=== PATIENT | male | born 1965 | race Caucasian/White ===

== ENCOUNTER 2023-11-26 16:28 | Inpatient (IN) | payer OTHER ==
--- OUTSIDE RECORDS SUMMARY | 2023-11-26 16:40 | XMS REPORT | Continuity of Care Document ---
Author Name Unknown Address [address] [facility] [place] [address] [facility] thconnect Address [address] [facility] [place] [address] Care Team Providers Care Irrigation Installation Specialist Name Role Phone NO, PCP Primary Care Physician Unavailab David Aceves Attending Clinician Unavailable Arsh Rojo Attending Clinician Unavailable EDDOC, GENERIC FOR EDM Attending Clinician UnaURIAH Stout Attending Clinician Unavailable VERNA GILL Attending Clinician Unavailable José Miguel Orozco Attending Clinician Unavailable Kennedi Garnica RN Attending Clinician [phone] ELENA FREGOSO Attending Clinician Unavailable ELENA FREGOSO Attending Clinician Unavailable Edward Batista MD Attending Clinician [phone] Claude Cooley MD Attending Clinician [phone] Jeimy GUTIERREZ, Subhash Espinoza Attending Clinician + [phone] Kiel Gardiner Attending Clinician Unavailable Ori RICHARDSON, Julieta Barnhart Attending Clinician Unavail able Olvin Serra MD Attending Clinician [phone] Jose Emanuel DO Attending Clinician [phone] Griffin Wheeler MD Attending Clinician [phone] JOSE EMANUEL Attending Clinician Unavailable Luis Enrique Mishra Attending Clinician Unavailable Jimmy Mark Attending Clinician Unavailable BECKI WYNN Attending Clinician Unavailable Flako Elias Attending Clinician Unavailable Yung Loomis Attending Clinician Unavail able Kiel Fischer Attending Clinician Unavailable Dax Tejeda Attending Clinician UnavailYuli Cook Attending Clinician Unavailable LEXIE CHENEY Attending Clinician Unavailable Physician, No Primary or Family Admitting Clinic shane Unavailable MINO WEAVER Admitting Clinician Unavailable José Miguel Orozco Admitting Clinician Unavailable CLAUDE COOLEY Admitting Clinician Unavailable Claude Cooley MD Admitting Clinician [phone] Kiel Gardiner Admitting Clinician Unavailable Griffin Wheeler MD Admitting Clinician [phone] Ezra Austin Admitting Clinician Unavailable BECKI WYNN Admitting Clinician Unavailable Flako Elias Admitting Clinician Unavailable Kiel Fischer Admitting Clinician Unavailable Yung Loomis Admitting Clinician Unavail able LEXIE CHENEY Admitting Clinician Unavailable Payers Payer Name Policy Type Policy Number Effective Date Expirati on Date Source [facility] [id number] 2022 00:00:00 [facility] [id number] 2018 00:00:00 2020 00:00:00 3 C [id number] Problems Condition Name Condition Details Condition Category Status Onset Date Resolution Date Last Treatment Date Treating Clinician Comments Source Altered behavior Altered behavior Disease Active 07-06 00:00: 00 [facility] Overdose of undetermin ed intent Overdose of undetermin ed intent Disease Active 07-06 00:00: 00 [facility] Amputation stump infection Amputation stump infection Disease Active 02-13 00:00: 00 [facility] Syncope Syncope Problem Active 2019-06 00:00: [address] [facility] (LUF[facility] V/SA) Coronary artery bypass graft Coronary artery bypass graft Problem Active [facility]LUF/LI V/SA) Stented artery Stented artery Problem Active [facility] (LUF/LI V/SA) Bipolar disorder Bipolar disorder Problem Active [facility] (LUF/LI V/SA) [id number] BKA stump complicati on Problem [facility] [id number] Other complicati ons of amputation stump Problem [facility] [id number] Essential hypertensi on Problem [facility] [id number] Type 2 diabetes mellitus with hyperglyce parisa, without long-term current use of insulin Problem [facility] [id number] 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 Problem [facility] [id number] 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 Problem [facility] [id number] Type 2 diabetes mellitus with hyperglyce parisa Problem [facility] [id number] Mood disorder Problem [facility] [id number] Status post below-knee amputation of left lower extremity Problem [facility] [id number] Chronic congestive heart failure, unspecifie d heart failure type Problem [facility] [id number] Hx of myocardial infarction Problem [facility] Allergies, Adverse Reactions, Alerts Allergy Name Allergy Type Status Severity Reaction(s) Onset Date Inactive Date Treating Clinician Comments Source No Known Allergie s NA Active 09-10 16:18: 37 Ember Sommer l No Known Allergie s NA Active 09-10 15:55: 21 Ember Sommer l No Known Allergie s NA Active 09-10 12:58: 21 Ember Sommer l Statins- HMG-CoA Reductas e Inhibito r DA Active [facility] 08-02 00:00: 00 [facility] No Known Allergie s NA Active 11-10 17:58: 57 Ember Sommer l No Known Allergie s NA Active 11-10 17:48: 51 Ember Sommer l Statins- HMG-CoA Reductas e Inhibito r DA Active [place] JOINT PAIN 10-22 00:00: 00 [facility] Statins- HMG-CoA Reductas e Inhibito r DA Active [place] JOINT PAIN 10-08 00:00: 00 [facility] Statins- HMG-CoA Reductas e Inhibito r DA Active [place] JOINT PAIN 10-04 00:00: 00 [facility] No Known Allergie s DA Active U 2021-06 00:00: 00 [facility] No Known Allergie s DA Active U 2021-06 00:00: 00 [facility] No Known Allergie s DA Active U 15 00:00: 00 [facility] No Known Allergie s DA Active [facility] (LUF/LI V/SA) NO KNOWN ALLERGIE S Drug Class Active [facility] Social History Social Habit Start Date Stop Date Quantity Comments Source History of Tobacco Use [facility] Sex Assigned At [facility] Gender identity [facility] History of Social function 2023-07-08 00:00:00 2023-07-08 00:00:00 [facility] Tobacco use and exposure 2023-02-13 00:00:00 2023-02-13 00:00:00 Smokeless tobacco non-user [facility] Smoking Status Start Date Stop Date Source Never Smoker [facility] Former Smoker 2023-11-05 00:00:00 2023-11-05 00:00:00 [facility] Smokes tobacco daily 2023-02-13 00:00:00 [facility] Medications Ordered Medication Name Filled Medication Name Start Date Stop Date Current Medication? Ordering Clinician Indication Dosage Frequency Signature (SIG) Comments Components Source Rosuvastati n Calcium 10 MG Rosuvastati n Calcium 10 MG 11-23 00:00: 00 No 1{table t} QD Rosuvastat in Calcium 10 MG Pregabalin 50 MG Pregabalin 50 MG 11-04 00:00: 00 No 1{capsu le} TID Pregabalin 50 MG Glimepiride 2 MG Glimepiride 2 MG 10-23 00:00: 00 No 1{table t_with_ breakfa st_or_t he_firs t_main_ meal_of _the_da y} QD Glimepirid e 2 MG Levemir 100 UNIT/ML Levemir 100 UNIT/ML 10-08 00:00: 00 No QD Levemir 100 UNIT/ML BD Syringe 50 ML BD Syringe 50 ML 10-08 00:00: 00 No BD Syringe 50 ML Alcohol Wipes 70 % Alcohol Wipes 70 % 10-08 00:00: 00 No QD Alcohol Wipes 70 % QUEtiapine 50 mg tablet 07-11 17:37: 28 Yes 50mg Take 1 tablet by mouth in the morning and 1 tablet in the evening. [facility] phenoL (SORE THROAT (PHENOL)) 1.4 % spray bottle 1 [place] 07-11 13:39: 59 Yes 1{spray } 1 [place], Oral, PRN, Starting on Fri07/11/23 at 0739, Until Discontinu ed, Routine, Sore throat [facility] atorvastati n (LIPITOR) tablet 20 mg 07-11 03:00: 00 Yes 20mg 20 mg, Oral, QHS, First dose on Fri07/10/23 at 2100, Until Discontinu ed, Routine [facility] metoprolol tartrate (LOPRESSOR) tablet 12.5 mg 07-11 02:00: 00 Yes 12.5mg 12.5 mg, Oral, BID, First dose on Fri07/10/23 at 2000, Until Discontinu ed, Routine [facility] oxymetazoli ne (OXYMETAZOL INE HCL) 0.05 % nasal spray 1 [place] 07-11 02:00: 00 07-14 01:59 :00 No 1{spray } 1 [place], Nasal, BID, 6 doses, First dose (after last modificati on) on [facility] 07/10/23 at 2000, Last dose on Fri07/13/23 at 0800, Routine [facility] gabapentin (NEURONTIN) capsule 300 mg 07-10 20:00: 00 Yes 300mg 300 mg, Oral, TID, First dose on Fri07/10/23 at 1400, Until Discontinu ed, Routine [facility] foLIC acid (FOLATE) tablet 1 mg 07-10 15:00: 00 Yes 1mg 1 mg, Oral, DAILY, First dose on Fri07/10/23 at 0900, Until Discontinu ed, Routine [facility] Potassium Bicarb-Citr ic Acid (EFFER-K) effervescen t tablet 40 mEq 07-10 13:00: 00 07-10 14:04 :00 No 40meq 40 mEq, Oral, ONCE, 1 dose, On Janet 07/10/23 at 0700, Routine [facility] magnesium sulfate in water 2 gram/50 mL (4 %) infusion 2 g 07-10 12:45: 00 07-10 13:35 :00 No 2g 2 g, IV Piggyback, Administer over 60 Minutes, ONCE, 1 dose, On Janet 07/10/23 at 0645, Routine [facility] potassium chloride in water (KCL) 20 mEq/100 mL RTU IVPB 20 mEq 07-10 12:15: 00 07-10 16:14 :00 No 20meq 20 mEq, IV Infusion, Q2H ES, 2 doses, First dose on Fri07/10/23 at 0615, Last dose on Fri07/10/23 at 0815, 100 mL [facility] nicotine (NICODERM) 21 mg/24 hr patch 1 Patch 07-10 02:52: 00 Yes 1{patch } 1 Patch, Topical, Administer over 24 Hours, Q24H, First dose on Fri07/09/23 at 2100, Until Discontinu ed, Routine [facility] HYDROcodone -acetaminop hen (NORCO) 10-325 mg tablet 1 tablet 07-09 22:52: 28 Yes 1{tbl} 1 tablet, Oral, Q4HPRN, Starting on Fri07/09/23 at 1652, Until Discontinu ed, Routine, Pain (scale 4-6) [facility] acetaminoph en (TYLENOL) tablet 650 mg 07-09 22:52: 01 Yes 650mg 650 mg, Oral, Q6HPRN, Starting on Fri07/09/23 at 1652, Until Discontinu ed, Routine, Pain (scale 1-3) [facility] alum-mag hydroxide-s imeth (MAG-AL PLUS) 200-200-20 mg/5 mL suspension 15 mL 07-09 22:10: 40 Yes 15mL 15 mL, Oral, Q4HPRN, Starting on Fri07/09/23 at 1610, Until Discontinu ed, Routine, Indigestio n [facility] benzonatate (TESSALON PERLES) capsule 100 mg 07-09 22:00: 00 Yes 100mg 100 mg, Oral, Q8H, First dose on Fri07/09/23 at 1600, Until Discontinu ed, Routine [facility] oxymetazoli ne (OXYMETAZOL INE HCL) 0.05 % nasal spray 1 [place] 07-09 22:00: 00 07-10 15:28 :59 No 1{spray } 1 [place], Nasal, BID, First dose on Fri07/09/23 at 1600, Until Discontinu ed, Routine [facility] diphenhydrA MINE (BENADRYL) capsule 50 mg 07-09 19:20: 05 Yes 50mg 50 mg, Oral, Q4HPRN, Starting on Fri07/09/23 at 1320, Until Discontinu ed, Routine, acute agitation [facility] QUEtiapine (SEROQUEL) tablet 25 mg 07-09 03:00: 00 Yes 25mg 25 mg, Oral, QHS, First dose on Fri07/08/23 at 2100, Until Discontinu ed, Routine [facility] ipratropium -albuteroL (DUONEB) 0.5 mg-3 mg(2.5 mg base)/3 mL nebulizer solution 3 mL 07-09 00:15: 00 Yes 3mL 3 mL, Inhalation , QIDPRN, Starting on Fri07/08/23 at 1815, Until Discontinu ed, Routine, Wheezing [facility] midazolam (VERSED) injection 2.5 mg 07-08 09:09: 31 07-08 10:32 :00 No 2.5mg 2.5 mg, IV Push, PRN, 1 dose, Starting on Fri07/08/23 at 0309, Until Discontinu ed, CAROLYN, Agitation, Aggression [facility] haloperidol lactate (HALDOL) injection 5 mg 07-08 08:45: 00 07-08 07:53 :00 No 5mg 5 mg, Slow IV Push, ONCE, 1 dose, On Fri07/08/23 at 0245, STAT [facility] insulin detemir U-100 (LEVEMIR U-100 INSULIN) injection 10 Units 07-07 15:00: 00 Yes 10U 10 Units, Subcutaneo us, QAM+HS, First dose (after last modificati on) on Fri07/07/23 at 0900, Until Discontinu ed
Rest ricted - To be dispensed only to: Continuati on from home [facility] insulin lispro (human) (HumaLOG U-100) injection 5 Units 07-07 14:00: 00 07-07 15:34 :59 No 5U 5 Units, Subcutaneo us, TID MEALS, First dose (after last modificati on) on Fri07/07/23 at 0800, Until Discontinu ed, Routine [facility] magnesium sulfate in water 4 gram/50 mL (8 %) IV Piggyback 4 g 07-07 12:30: 00 07-07 13:45 :00 No 4g 4 g, IV Piggyback, at 25 mL/hr Administer over 120 Minutes, ONCE, 1 dose, On Fri07/07/23 at 0630, CAROLYN [facility] insulin detemir U-100 (LEVEMIR U-100 INSULIN) injection 3 Units 07-07 03:30: 00 07-07 05:28 :00 No 3U 3 Units, Subcutaneo us, ONCE, 1 dose, On Fri07/06/23 at 2130, Routine
Restricte d - To be dispensed only to: Continuati on from home [facility] glucagon (GLUCAGEN DIAGNOSTIC KIT) injection 1 mg 07-07 03:10: 13 Yes 1mg 1 mg, Intramuscu lar, PRN, Starting on Fri07/06/23 at 2110, Until Discontinu ed, CAROLYN, Blood Glucose < or = 70 mg/dL and patient is NPO, unable to swallow or has mental changes. [facility] insulin detemir U-100 (LEVEMIR U-100 INSULIN) injection 7 Units 07-07 03:00: 00 07-07 03:07 :52 No 7U 7 Units, Subcutaneo us, QHS, First dose (after last modificati on) on Fri07/06/23 at 2100, Until Discontinu ed
Rest ricted - To be dispensed only to: Continuati on from home [facility] foLIC acid (FOLATE) 5 mg in NaCl 0.9% (NS) piggyback 07-06 18:00: 00 07-09 20:59 :32 No 5mg IV Piggyback, DAILY, First dose on Fri07/06/23 at 1200, Until Discontinu ed, 50 mL [facility] thiamine (VITAMIN B1) 100 mg in NaCl 0.9% (NS) piggyback 07-06 18:00: 00 07-08 14:09 :00 No 100mg IV Piggyback, DAILY, 3 doses, First dose on Fri07/06/23 at 1200, Last dose on Fri07/08/23 at 0900, 50 mL [facility] clopidogreL (PLAVIX) 75 mg tablet 75 mg 07-06 15:00: 00 Yes 75mg 75 mg, Oral, DAILY, First dose on Fri07/06/23 at 0900, Until Discontinu ed, Routine [facility] Sliding Scale Insulin - Lispro (HumaLOG) 07-06 15:00: 00 07-07 03:10 :38 No Subcutaneo us, Q4H, First dose on Fri07/06/23 at 0900, Until Discontinu ed, Routine [facility] chlorhexidi ne (PERIDEX) 0.12 % mouthwash 15 mL 07-06 14:00: 00 Yes 15mL 15 mL, Oral (Swish And Spit Out), BID, First dose on Fri07/06/23 at 0800, Until Discontinu ed, Routine [facility] heparin (porcine) injection 5,000 Units 07-06 14:00: 00 Yes 5000U 5,000 Units, Subcutaneo us, Q12H, First dose on Fri07/06/23 at 0800, Until Discontinu ed, Routine [facility] ipratropium -albuteroL (DUONEB) 0.5 mg-3 mg(2.5 mg base)/3 mL nebulizer solution 3 mL 07-06 14:00: 00 07-09 00:13 :18 No 3mL 3 mL, Inhalation , QID, First dose on Fri07/06/23 at 0800, Until Discontinu ed, Routine [facility] NORepinephr ine 4 mg in 0.9% NaCl 250 mL infusion RTU 07-06 12:47: 00 07-07 12:46 :00 No .05ug/k g/min 0.05-0.5 mcg/kg/min ?91.2 kg (17.1-171 mL/hr), IV Infusion, TITRATE, MAP Goal > or = 65 mmHg, Starting on Fri07/06/23 at 0647, For 24 hours
I nitiate titration at 0.05 mcg/kg/min . &nb sp;Increas e by 0.01 mcg/kg/min every 30 seconds to 5 minutes as needed to reach and maintain goal blood pressure.& nbsp;&nbsp ;Maximum dose = 0.5 mcg/kg/min . &nb sp;If goal not maintained at maximum allowed dose, contact prescriber . &nb sp;Adminis ter only one peripheral intravenou s vasopresso r at a time.
[facility] NaCl 0.9% (NS) bolus infusion 1,000 mL 07-06 11:15: 00 07-06 12:07 :02 No 1000mL at 999 mL/hr, 1,000 mL, IV Piggyback, ONCE, 1 dose, On Fri07/06/23 at 0515, STAT [facility] insulin detemir U-100 (LEVEMIR U-100 INSULIN) injection 5 Units 07-06 10:45: 00 07-07 01:20 :43 No 5U 5 Units, Subcutaneo us, QHS, First dose (after last modificati on) on Fri07/06/23 at 0445, Until Discontinu ed
Rest ricted - To be dispensed only to: Continuati on from home [facility] pantoprazol e (PROTONIX) injection 40 mg 07-06 10:00: 00 07-09 15:55 :37 No 40mg 40 mg, Slow IV Push, Q24H, 5 doses, First dose on Fri07/06/23 at 0400, Last dose on Janet 07/10/23 at 0400 [facility] methylPREDN ISolone sod succ (SOLU-MEDRO L (PF)) injection 60 mg 07-06 09:45: 00 07-06 10:55 :00 No 60mg 60 mg, Intravenou s, ONCE, 1 dose, On Fri07/06/23 at 0345, STAT [facility] propofoL IV infusion 07-06 09:42: 03 07-06 11:18 :38 No 5ug/kg/ min 5-50 mcg/kg/min ?91.2 kg (2.736-27. 36 mL/hr, rounded to 2.74-27.36 mL/hr), IV Infusion, TITRATE, Sedation-R ASS score (-1 to -2), Starting on Fri07/06/23 at 0342
In itiate infusion at 10 mcg/kg/min and titrate by 5 mcg/kg/min every 30 seconds to 10 minutes to goal sedation score. Maximum dose = 50 mcg/kg/min . If goal not maintained at maximum allowed dose, contact prescriber . &amp ;nbsp;Tubi ng and unused portions of vials should be discarded after 12 hours.
[facility] succinylcho line (QUELICIN) injection 100 mg 07-06 08:45: 00 07-06 08:37 :00 No 100mg 100 mg, IV Push, ONCE, 1 dose, On Fri07/06/23 at 0245, STAT [facility] midazolam (VERSED) injection 5 mg 07-06 08:45: 00 07-06 08:36 :00 No 5mg 5 mg, IV Push, ONCE, 1 dose, On Fri07/06/23 at 0245, STAT [facility] iopamidol (ISOVUE 370-500 mL) injection 80 mL 07-06 07:00: 00 07-06 07:15 :00 No [id number] 80mL 80 mL, Intravenou s, ONCE, 1 dose, On Fri07/06/23 at 0115, Routine [facility] NaCl 0.9% (NS) injection 5 mL 07-06 06:42: 15 Yes 5mL 5 mL, Slow IV Push, PRN - SEE INSTRUCTEUGENE NS, Starting on Fri07/06/23 at 0042, Until Discontinu ed, 10 mL [facility] QUEtiapine 50 mg tablet 02-18 15:39: 31 Yes 50mg Take 1 tablet by mouth in the morning and 1 tablet in the evening. [facility] cyclobenzap rine 5 mg tablet 02-18 15:05: 57 02-18 00:00 :00 No 5mg Take 1 tablet by mouth 3 (three) times daily as needed for Muscle Spasms. [facility] gabapentin 300 mg capsule 02-18 15:05: 57 02-18 00:00 :00 No 300mg Take 1 capsule by mouth in the morning and 1 capsule at noon and 1 capsule in the evening. [facility] clopidogreL 75 mg tablet 02-18 15:05: 57 02-18 00:00 :00 No 75mg Take 1 tablet by mouth in the morning. [facility] metoprolol tartrate (LOPRESSOR) 50 mg tablet 02-18 15:05: 57 02-18 00:00 :00 No 50mg Take 1 tablet by mouth in the morning. [facility] gadoteridol (PROHANCE-2 0 mL) injection 17.6 mL 02-18 13:00: 00 02-18 13:00 :00 No [id number] .2mL/kg 17.6 mL (0.2 mL/kg ?88 kg), Intravenou s, ONCE, 1 dose, On Fri02/18/23 at 0800, Routine [facility] insulin glargine (LANTUS U-100) injection 10 Units 02-18 02:00: 00 Yes 10U 10 Units, Subcutaneo us, QHS, First dose (after last modificati on) on Fri02/17/23 at 2100, Until Discontinu ed, Routine [facility] insulin regular human (NOVOLIN R REGULAR U100 INSULIN) 100 unit/mL injection 02-18 00:00: 00 Yes [id number] 8U inject 8 Units under the skin 2 (two) times daily before breakfast and dinner. [facility] silver sulfADIAZIN E (SILVADENE) 1 % cream 02-18 00:00: 00 Yes [id number] Apply to area(s) 2 (two) times daily. [facility] metoprolol tartrate (LOPRESSOR) 50 mg tablet 02-18 00:00: 00 Yes [id number] 50mg Take 1 tablet by mouth in the morning and 1 tablet in the evening. [facility] clopidogreL 75 mg tablet 02-18 00:00: 00 Yes [id number] 75mg Take 1 tablet by mouth in the morning. [facility] gabapentin 300 mg capsule 02-18 00:00: 00 Yes [id number] 300mg Take 1 capsule by mouth in the morning and 1 capsule at noon and 1 capsule in the evening. [facility] Insulin Detemir (LEVEMIR FLEXPEN) 100 unit/mL (3 mL) injection 02-18 00:00: 00 Yes [id number] 10U inject 10 Units under the skin at bedtime. [facility] sulfamethox azole-trime thoprim 800-160 mg per tablet 02-18 00:00: 00 03-01 04:59 :00 No [id number] 1{tbl} Take 1 tablet by mouth in the morning and 1 tablet in the evening. Do all this for 10 days. [facility] mupirocin 2 % nasal ointment 02-18 00:00: 00 02-24 04:59 :00 No [id number] 579308 .5g Use 0.5 g in each nostril every 12 (twelve) hours for 5 days. [facility] lactobacill us acidophilus tablet 0.5 mg 02-17 14:00: 00 Yes .5mg 0.5 mg, Oral, DAILY, First dose on Fri02/17/23 at 0900, Until Discontinu ed, Routine [facility] lidocaine-e pinephrine (XYLOCAINE W/EPINEPHRI NE) 1 %-1:200,000 injection 10 mL 02-16 16:30: 00 02-16 16:52 :00 No 10mL 10 mL, Intraderma l, ONCE, 1 dose, On 02/16/23 at 1130, Routine [facility] diphenhydrA MINE (BENADRYL) tablet 25 mg 02-16 04:25: 46 Yes 25mg 25 mg, Oral, Q4HPRN, Starting on 02/15/23 at 2325, Until Discontinu ed, Routine, Itching [facility] vancomycin (VANCOCIN) 1,500 mg in NaCl 0.9% (NS) 500 mL VIAL-MATE IV piggyback 02-16 02:30: 00 Yes 1500mg 1,500 mg, IV Piggyback, Q12H ABX, First dose on 02/15/23 at 2130, Until Discontinu ed, Administer over 90 Minutes, 500 mL
Reas on for Anti-Infec tive: Documented Infection< br>Documen annie Infection Site: Skin / Soft Tissue
Duration of Therapy: 10 days [facility] insulin glargine (LANTUS U-100) injection 6 Units 02-16 02:00: 00 02-17 16:24 :46 No 6U 6 Units, Subcutaneo us, QHS, First dose on 02/15/23 at 2100, Until Discontinu ed, Routine [facility] mupirocin (BACTROBAN NASAL OINT) 2 % nasal ointment 02-16 01:00: 00 02-21 00:59 :00 No Nasal, Q12H, 10 doses, First dose on 02/15/23 at 2000, Last dose on Janet 02/20/23 at 0800, Routine [facility] ceFEPIme (MAXIPIME) 1,000 mg in NaCl 0.9% (NS) 100 mL MINI-BAG 02-14 22:45: 00 02-18 16:10 :45 No 1000mg 1,000 mg, IV Piggyback, Q8H ABX, 21 doses, First dose on Fri02/14/23 at 1745, Last dose on Fri02/21/23 at 1200, Administer over 4 Hours, 100 mL
Reas on for Anti-Infec tive: Empiric Therapy for Suspected Infection< br>Empiric Therapy Site: Skin / Soft tissue
Duration of therapy: 5 days [facility] lidocaine 1% (XYLOCAINE) 10 mg/mL (1 %) injection 5 mL 02-14 20:15: 00 02-14 19:31 :00 No 5mL 5 mL, Infiltrati on, ONCE, 1 dose, On Fri02/14/23 at 1515, Routine [facility] clopidogreL (PLAVIX) 75 mg tablet 75 mg 02-14 14:00: 00 Yes 75mg 75 mg, Oral, DAILY, First dose on Fri02/14/23 at 0900, Until Discontinu ed, Routine [facility] enoxaparin (LOVENOX) injection 40 mg 02-14 14:00: 00 Yes 40mg 40 mg, Subcutaneo us, DAILY, First dose on Fri02/14/23 at 0900, Until Discontinu ed, Routine [facility] gabapentin (NEURONTIN) capsule 300 mg 02-14 13:00: 00 Yes 300mg 300 mg, Oral, TID, First dose on Fri02/14/23 at 0800, Until Discontinu ed, Routine [facility] [facility] docusate (COLACE) capsule 100 mg 02-14 13:00: 00 Yes 100mg 100 mg, Oral, BID, First dose on Fri02/14/23 at 0800, Until Discontinu ed, Routine [facility] vancomycin 1,250 mg in NaCl 0.9% (NS) 250 mL VIAL-MATE IV piggyback 02-14 13:00: 00 02-15 18:43 :20 No 15mg/kg 1,250 mg (rounded from 1,258.5 mg = 15 mg/kg ?83.9 kg), IV Piggyback, Q12H ABX, 20 doses, First dose on Fri02/14/23 at 0800, Last dose on Fri02/23/23 at 2000, Administer over 90 Minutes, 250 mL
R radha for Anti-Infec tive: Documented Infection< br>Documen annie Infection Site: Skin / Soft Tissue
Duration of Therapy: 10 days [facility] morpHINE (2 mg/mL) injection 2 mg 02-14 09:37: 46 Yes 2mg 2 mg, Slow IV Push, Q4HPRN, Starting on Fri02/14/23 at 0437, Until Discontinu ed, Routine, Pain (scale 4-6) [facility] cyclobenzap rine (FLEXERIL) tablet 5 mg 02-14 09:37: 33 Yes 5mg 5 mg, Oral, TIDPRN, Starting on Fri02/14/23 at 0437, Until Discontinu ed, Routine, Muscle Spasms [facility] piperacilli n-tazobacta m (ZOSYN) 3.375 g in NaCl 0.9% (NS) 100 mL MINI-BAG 02-14 08:30: 00 02-14 14:08 :01 No 3.375g 3.375 g, IV Piggyback, Q8H ABX, 30 doses, First dose on Fri02/14/23 at 0330, Last dose on Fri02/23/23 at 1930, Administer over 4 Hours, 100 mL
Reas on for Anti-Infec tive: Documented Infection& lt;br>Docu mented Infection Site: Skin / Soft Tissue
Duration of Therapy: 10 days [facility] Sliding Scale Insulin - Lispro (HumaLOG) 02-14 02:00: 00 Yes Subcutaneo us, TID MEALS+HS, First dose on Fri02/13/23 at 2100, Until Discontinu ed, Routine Univers [facility] ondansetron (ZOFRAN (PF)) injection 4 mg 02-14 01:55: 37 Yes 4mg 4 mg, Slow IV Push, Q6HPRN, Starting on Fri02/13/23 at 2055, Until Discontinu ed, Routine, Nausea and Vomiting (N/V) [facility] HYDROcodone -acetaminop hen (NORCO) 10-325 mg tablet 1 tablet 02-14 01:55: 24 Yes 1{tbl} 1 tablet, Oral, Q6HPRN, Starting on Fri02/13/23 at 2054, Until Discontinu ed, Routine, Pain (scale 7-10) [facility] acetaminoph en (TYLENOL) tablet 1,000 mg 02-14 01:55: 13 Yes 1000mg 1,000 mg, Oral, Q8HPRN, Starting on Fri02/13/23 at 2054, Until Discontinu ed, Routine, Pain (scale 1-3), Temp > 38 C [facility] ondansetron (ZOFRAN (PF)) injection 4 mg 02-14 01:30: 00 02-14 01:20 :00 No 4mg 4 mg, Slow IV Push, ONCE, 1 dose, On Fri02/13/23 at 2030, CAROLYN [facility] morpHINE (4 mg/mL) injection 4 mg 02-14 01:30: 00 02-14 01:20 :00 No 4mg 4 mg, Slow IV Push, ONCE, 1 dose, On Fri02/13/23 at 2030, STAT [facility] vancomycin 1,250 mg in NaCl 0.9% (NS) 250 mL VIAL-MATE IV piggyback 02-14 00:15: 00 02-14 03:01 :00 No 15mg/kg 1,250 mg (rounded from 1,258.5 mg = 15 mg/kg ?83.9 kg), IV Piggyback, ONCE, 1 dose, On Fri02/13/23 at 1915, Administer over 90 Minutes, 250 mL
Reas on for Anti-Infec tive: Documented Infection& lt;br>Docu mented Infection Site: Skin / Soft Tissue
Duration of Therapy: Other (see Comments) [facility] piperacilli n-tazobacta m (ZOSYN) 3.375 g in NaCl 0.9% (NS) 100 mL MINI-BAG 02-13 23:30: 00 02-14 01:09 :00 No 3.375g 3.375 g, IV Piggyback, ONCE, 1 dose, On Fri02/13/23 at 1830, Administer over 30 Minutes, 100 mL
Reas on for Anti-Infec tive: Documented Infection< br>Documen annie Infection Site: Skin / Soft Tissue
Duration of Therapy: Other (see Comments) [facility] iopamidol (ISOVUE 370-500 mL) injection 75 mL 02-13 22:30: 00 02-13 22:31 :00 No [id number] 75mL 75 mL, Intravenou s, ONCE, 1 dose, On Fri02/13/23 at 1730, Routine [facility] QUEtiapine Fumarate 50 MG QUEtiapine Fumarate 50 MG No 1{table t_at_be dtime} QD QUEtiapine Fumarate 50 MG Metoprolol Succinate ER 50 MG Metoprolol Succinate ER 50 MG No 1{table t} QD Metoprolol Succinate ER 50 MG Gabapentin 800 MG Gabapentin 800 MG No 1{table t} TID Gabapentin 800 MG Aspirin 81 81 MG Aspirin 81 81 MG No 1{table t} QD Aspirin 81 81 MG Plavix 75 MG Plavix 75 MG No 1{table t} QD Plavix 75 MG Vital Signs Vital Name Observation Time Observation Value Comments S ource height 2023-11-24 10:40:00 72 [in_i] Commo n [facility] temperature 2023-11-24 10:40:00 100.5 [degF] Co mmon [facility] oximetry 2023-11-24 10:40:00 97 % Commo n [facility] respiratory rate 2023-11-24 10:40:00 16 /min Common [facility] blood pressure systolic 2023-11-24 10:40:00 120 mm[Hg] Common [facility] blood pressure diastolic 2023-11-24 10:40:00 55 mm[Hg] [facility] blood pressure diastolic 2023-11-05 09:20:00 67 mm[Hg] Common [facility] height 2023-11-05 09:20:00 72 [in_i] Commo n [facility] temperature 2023-11-05 09:20:00 98.5 [degF] Com [facility] oximetry 2023-11-05 09:20:00 98 % Commo n [facility] blood pressure systolic 2023-11-05 09:20:00 100 mm[Hg] [facility] height 2023-10-24 08:00:00 72 [in_i] Commo n [facility] weight 2023-10-24 08:00:00 193.0 [lb_av] Co [facility] temperature 2023-10-24 08:00:00 98.4 [degF] Com [facility] bmi 2023-10-24 08:00:00 26.17 kg/m2 Comm on [facility] oximetry 2023-10-24 08:00:00 96 % Commo n [facility] respiratory rate 2023-10-24 08:00:00 16 /min Common [facility] blood pressure systolic 2023-10-24 08:00:00 139 mm[Hg] [facility] blood pressure diastolic 2023-10-24 08:00:00 84 mm[Hg] Common [facility] height 2023-10-09 11:00:00 72 [in_i] Commo n [facility] weight 2023-10-09 11:00:00 194.8 [lb_av] Co [facility] temperature 2023-10-09 11:00:00 98.3 [degF] Com [facility] bmi 2023-10-09 11:00:00 26.42 kg/m2 Comm on [facility] oximetry 2023-10-09 11:00:00 95 % Commo n [facility] respiratory rate 2023-10-09 11:00:00 16 /min [facility] blood pressure systolic 2023-10-09 11:00:00 118 mm[Hg] Common [facility] blood pressure diastolic 2023-10-09 11:00:00 68 mm[Hg] [facility] DBP 2023-09-24 17:03:00 82 mm[Hg] DBP 2023-09-24 14:33:00 72 mm[Hg] DBP 2023-09-24 09:19:00 63 mm[Hg] DBP 2023-09-24 04:00:00 69 mm[Hg] DBP 2023-09-24 00:15:00 58 mm[Hg] DBP 2023-09-23 20:00:00 78 mm[Hg] DBP 2023-09-23 12:00:00 63 mm[Hg] DBP 2023-09-23 08:00:00 69 mm[Hg] DBP 2023-09-23 04:00:00 73 mm[Hg] DBP 2023-09-23 00:15:00 69 mm[Hg] DBP 2023-09-22 20:00:00 75 mm[Hg] DBP 2023-09-22 16:00:00 68 mm[Hg] DBP 2023-09-22 12:00:00 73 mm[Hg] DBP 2023-09-22 08:00:00 83 mm[Hg] DBP 2023-09-22 04:19:00 69 mm[Hg] DBP 2023-09-22 00:26:00 58 mm[Hg] DBP 2023-09-21 20:47:00 69 mm[Hg] DBP 2023-09-21 16:00:00 64 mm[Hg] DBP 2023-09-21 04:00:00 75 mm[Hg] DBP 2023-09-21 00:49:00 66 mm[Hg] DBP 2023-09-20 20:00:00 66 mm[Hg] DBP 2023-09-20 18:31:00 80 mm[Hg] DBP 2023-09-20 12:00:00 72 mm[Hg] DBP 2023-09-20 11:22:00 74 mm[Hg] DBP 2023-09-20 03:50:00 72 mm[Hg] DBP 2023-09-19 23:46:00 68 mm[Hg] DBP 2023-09-19 20:39:00 63 mm[Hg] DBP 2023-09-19 16:41:00 69 mm[Hg] DBP 2023-09-19 12:33:00 63 mm[Hg] DBP 2023-09-19 08:00:00 83 mm[Hg] DBP 2023-09-19 04:00:00 60 mm[Hg] DBP 2023-09-19 00:15:00 62 mm[Hg] DBP 2023-09-18 20:00:00 58 mm[Hg] DBP 2023-09-18 17:01:00 65 mm[Hg] DBP 2023-09-18 12:07:00 62 mm[Hg] DBP 2023-09-18 09:15:00 69 mm[Hg] DBP 2023-09-18 04:00:00 72 mm[Hg] DBP 2023-09-18 00:47:00 69 mm[Hg] DBP 2023-09-17 20:00:00 81 mm[Hg] DBP 2023-09-17 16:00:00 75 mm[Hg] DBP 2023-09-17 12:00:00 65 mm[Hg] DBP 2023-09-17 08:00:00 61 mm[Hg] DBP 2023-09-17 04:28:00 69 mm[Hg] DBP 2023-09-17 00:15:00 75 mm[Hg] DBP 2023-09-16 20:23:00 69 mm[Hg] DBP 2023-09-16 16:00:00 94 mm[Hg] DBP 2023-09-16 08:00:00 80 mm[Hg] DBP 2023-09-16 04:57:00 78 mm[Hg] DBP 2023-09-16 00:15:00 82 mm[Hg] DBP 2023-09-15 20:00:00 75 mm[Hg] DBP 2023-09-15 16:00:00 99 mm[Hg] DBP 2023-09-15 13:32:00 69 mm[Hg] DBP 2023-09-15 08:00:00 69 mm[Hg] DBP 2023-09-15 04:10:00 60 mm[Hg] DBP 2023-09-15 00:13:00 59 mm[Hg] DBP 2023-09-14 21:47:00 57 mm[Hg] DBP 2023-09-14 16:00:00 62 mm[Hg] DBP 2023-09-14 12:00:00 69 mm[Hg] DBP 2023-09-14 08:00:00 64 mm[Hg] DBP 2023-09-14 05:00:00 67 mm[Hg] DBP 2023-09-14 01:13:00 67 mm[Hg] DBP 2023-09-13 20:52:00 61 mm[Hg] DBP 2023-09-13 16:00:00 69 mm[Hg] DBP 2023-09-13 12:00:00 78 mm[Hg] DBP 2023-09-13 08:00:00 86 mm[Hg] DBP 2023-09-13 04:41:00 74 mm[Hg] DBP 2023-09-13 00:42:00 93 mm[Hg] DBP 2023-09-12 20:53:00 86 mm[Hg] DBP 2023-09-12 16:55:00 80 mm[Hg] DBP 2023-09-12 12:00:00 70 mm[Hg] DBP 2023-09-12 08:00:00 87 mm[Hg] DBP 2023-09-12 00:48:00 76 mm[Hg] DBP 2023-09-11 20:00:00 88 mm[Hg] DBP 2023-09-11 16:28:00 72 mm[Hg] WEIGHT 2023-09-11 16:23:43 198.000 KG HEIGHT 2023-09-11 16:23:43 172.72 CM HEIGHT 2023-09-11 16:23:10 .00 CM WEIGHT 2023-09-11 16:23:09 68.040 KG WEIGHT 2023-09-11 16:19:57 68.040 KG HEIGHT 2023-09-11 16:19:57 .00 CM HEIGHT 2023-09-11 16:18:37 .00 CM HEIGHT 2023-09-11 16:06:42 .00 CM WEIGHT 2023-09-11 16:06:41 68.040 KG DBP 2023-09-11 15:58:00 77 mm[Hg] HEIGHT 2023-09-11 15:57:40 .00 CM WEIGHT 2023-09-11 15:57:39 68.040 KG HEIGHT 2023-09-11 15:48:07 .00 CM HEIGHT 2023-09-11 15:47:54 .00 CM HEIGHT 2023-09-11 15:47:41 .00 CM HEIGHT 2023-09-11 15:37:06 .00 CM WEIGHT 2023-09-11 15:37:05 68.040 KG DBP 2023-09-11 15:28:00 75 mm[Hg] DBP 2023-09-11 14:58:00 79 mm[Hg] HEIGHT 2023-09-11 14:45:03 .00 CM WEIGHT 2023-09-11 14:44:22 68.040 KG HEIGHT 2023-09-11 14:44:22 .00 CM HEIGHT 2023-09-11 14:44:05 .00 CM DBP 2023-09-11 13:58:00 76 mm[Hg] DBP 2023-09-11 13:28:00 79 mm[Hg] HEIGHT 2023-09-11 13:14:01 .00 CM HEIGHT 2023-09-11 13:01:14 .00 CM WEIGHT 2023-09-11 13:01:13 68.040 KG DBP 2023-09-11 12:59:00 76 mm[Hg] DBP 2023-09-11 12:58:00 76 mm[Hg] Systolic blood pressure 2023-07-11 17:27:00 148 mm[Hg] [facility] Diastolic blood pressure 2023-07-11 17:27:00 71 mm[Hg] [facility] Heart rate 2023-07-11 17:27:00 75 /min [facility] Body temperature 2023-07-11 17:27:00 36.44 Jaelyn [facility] Respiratory rate 2023-07-11 17:27:00 18 /min [facility] Oxygen saturation in Arterial blood by Pulse oximetry 2023-07-11 17:27:00 97 /min [facility] Body height 2023-07-10 02:39:00 182.9 cm [facility] Body weight 2023-07-06 06:58:00 91.173 kg [facility] BMI 2023-07-06 06:58:00 27.26 kg/m2 [facility] Diastolic blood pressure 2023-02-18 16:47:00 73 mm[Hg] [facility] Heart rate 2023-02-18 16:47:00 80 /min [facility] Body temperature 2023-02-18 16:47:00 36.33 Jaelyn [facility] Respiratory rate 2023-02-18 16:47:00 17 /min [facility] Oxygen saturation in Arterial blood by Pulse oximetry 2023-02-18 16:47:00 91 /min [facility] Systolic blood pressure 2023-02-18 16:47:00 132 mm[Hg] [facility] Body weight 2023-02-18 08:59:00 87.998 kg [facility] BMI 2023-02-18 08:59:00 26.31 kg/m2 [facility] Body height 2023-02-14 03:03:00 182.9 cm [facility] DBP 2022-11-10 18:17:00 67 mm[Hg] DBP 2022-11-10 17:59:00 76 mm[Hg] Height 2020-04-19 13:29:00 177.8 CM Weight 2020-04-19 13:29:00 90.71 KG Pulse Rate 2020-04-19 14:31:00 101 /min [facility] Respiratory Rate 2020-04-19 14:31:00 19 /min [facility] O2% BldC Oximetry 2020-04-19 14:31:00 93 % [facility] (LUF/ISI/SA) BP Systolic 2020-04-19 14:31:00 115 mm[Hg] [facility] BP Diastolic 2020-04-19 14:31:00 71 mm[Hg] [facility] (LUF/ISI/SA) Body Temperature 2020-04-19 13:29:00 98 [degF] [facility] Height 2020-04-19 13:29:00 70 [in_i] [facility] (LUF/ISI/SA) Weight 2020-04-19 13:29:00 200 [lb_av] [facility] (LUF/ISI/SA) BMI (Body Mass Index) 2020-04-19 13:29:00 28.9 kg/m2 [facility] (LUF/ISI/SA) Procedures Procedure Date / Time Performed Performing Clinician Source POCT GLUCOSE (AUTOMATED) 2023-07-11 18:42:00 Jose Antonio Fregoso [facility] POCT GLUCOSE (AUTOMATED) 2023-07-11 14:10:00 Jose Antonio Fregoso [facility] POCT GLUCOSE (AUTOMATED) 2023-07-11 02:18:00 Jose Antonio Fregoso [facility] POCT GLUCOSE (AUTOMATED) 2023-07-10 23:17:00 Jose Antonio Fregoso [facility] POCT GLUCOSE (AUTOMATED) 2023-07-10 17:41:00 Jose Antonio Fregoso [facility] POCT GLUCOSE (AUTOMATED) 2023-07-10 15:46:00 Jose Antonio Fregoso [facility] POCT GLUCOSE (AUTOMATED) 2023-07-10 14:47:00 Jose Antonio Fregoso [facility] MAGNESIUM 2023-07-10 10:06:00 Pillo Gaston [facility] BASIC METABOLIC PANEL (NA, K, CL, CO2, GLUCOSE, BUN, CREATININE, CA) 2023-07-10 10:06:00 Pillo Gaston [facility] CBC WITH DIFF 2023-07-10 10:06:00 Pillo Gaston [facility] POCT GLUCOSE (AUTOMATED) 2023-07-10 02:33:00 Jose Antonio Fregoso [facility] POCT GLUCOSE (AUTOMATED) 2023-07-09 22:09:00 Shayla Cooley [facility] POCT GLUCOSE (AUTOMATED) 2023-07-09 17:50:00 Shayla Cooley [facility] POCT GLUCOSE (AUTOMATED) 2023-07-09 14:03:00 Shayla Cooley [facility] MAGNESIUM 2023-07-09 10:14:00 Laura Quinn [facility] BASIC METABOLIC PANEL (NA, K, CL, CO2, GLUCOSE, BUN, CREATININE, CA) 2023-07-09 10:14:00 Laura Quinn [facility] CBC WITH DIFF 2023-07-09 10:14:00 Laura Quinn [facility] POCT GLUCOSE (AUTOMATED) 2023-07-08 23:55:00 Shayla Cooley [facility] POCT GLUCOSE (AUTOMATED) 2023-07-08 17:31:00 Shayla Cooleybere [facility] POCT GLUCOSE (AUTOMATED) 2023-07-08 13:51:00 Shayla Cooley [facility] MAGNESIUM 2023-07-08 10:46:00 Laura Quinn [facility] BASIC METABOLIC PANEL (NA, K, CL, CO2, GLUCOSE, BUN, CREATININE, CA) 2023-07-08 10:46:00 Laura Quinn [facility] CBC WITH DIFF 2023-07-08 10:46:00 Laura Quinn [facility] POCT GLUCOSE (AUTOMATED) 2023-07-08 01:48:00 Shayla Cooleybere [facility] POCT GLUCOSE (AUTOMATED) 2023-07-07 22:17:00 Shayla Cooley [facility] POCT GLUCOSE (AUTOMATED) 2023-07-07 18:13:00 Shayla Cooleybere [facility] POCT GLUCOSE (AUTOMATED) 2023-07-07 13:49:00 Shayla Cooleybere [facility] CBC WITH DIFF 2023-07-07 12:32:00 Laura Quinn [facility] MAGNESIUM 2023-07-07 11:05:00 Laura Quinn [facility] BASIC METABOLIC PANEL (NA, K, CL, CO2, GLUCOSE, BUN, CREATININE, CA) 2023-07-07 11:05:00 Laura Quinn [facility] POCT GLUCOSE (AUTOMATED) 2023-07-07 05:27:00 Shayla Cooley [facility] POCT GLUCOSE (AUTOMATED) 2023-07-07 01:47:00 Shayla Cooley [facility] POCT GLUCOSE (AUTOMATED) 2023-07-06 22:45:00 Shayla Cooley [facility] BASIC METABOLIC PANEL (NA, K, CL, CO2, GLUCOSE, BUN, CREATININE, CA) 2023-07-06 21:02:00 Collin Bosch [facility] POCT GLUCOSE (AUTOMATED) 2023-07-06 18:10:00 Shayla Cooley [facility] POCT GLUCOSE (AUTOMATED) 2023-07-06 14:05:00 Shayla Cooley [facility] XR KUB 2023-07-06 12:13:00 Deshaun Sandoval [facility] MRSA / MSSA SCREEN BY PCR, GITA 2023-07-06 11:09:00 Moises Sandoval [facility] AC PANEL 20 + LACTIC ACID 2023-07-06 09:20:00 Edward Batista [facility] EXTRA TUBE URINE CULTURE 2023-07-06 09:07:00 Shayla Cooley [facility] URINALYSIS 2023-07-06 09:06:00 Edward Batista [facility] AMMONIA, PLASMA 2023-07-06 09:02:00 Deshaun Sandoval [facility] XR ABDOMEN 1 VW 2023-07-06 09:00:00 Edward Batista [facility] XR CHEST 1 VW 2023-07-06 08:59:00 Edward Batista [facility] [place] INTUBATION ENDOTRACHEAL EMERGENCY PROCEDURE 2023-07-06 08:43:24 Freddie Han [facility] ACUTE CARE ARTERIAL BLOOD GAS 2023-07-06 07:35:00 Edward Batista [facility] HB ECG ROUTINE & RHYTHM STRIP 2023-07-06 07:13:40 Edward Batista [facility] CT STROKE ANGIOGRAM HEAD 2023-07-06 07:08:18 Samir Batista ent Valeriy [facility] CT STROKE ANGIOGRAM NECK 2023-07-06 07:08:18 Samir Batista [facility] CT STROKE HEAD WO CONTRAST 2023-07-06 07:07:34 Edward Batista [facility] TROPONIN I 2023-07-06 06:50:00 Edward Batista [facility] HEPATIC FUNCTION PANEL (07918) (ALB,T.PRO,BILI T,BU/BC,ALT,AST,ALK PHOS) 2023-07-06 06:50:00 Collin Bosch [facility] BASIC METABOLIC PANEL (NA, K, CL, CO2, GLUCOSE, BUN, CREATININE, CA) 2023-07-06 06:50:00 Edward Batista [facility] SALICYLATE 2023-07-06 06:50:00 Deshaun Sandoval [facility] CBC WITHOUT DIFF 2023-07-06 06:50:00 [facility] GLYCOSYL[facility] HEMOGLOBIN (A1C) 2023-07-06 06:50:00 Collin Bosch [facility] PROTHROMBIN TIME / INR 2023-07-06 06:50:00 Dahlia Batista [facility] ACTIVATED PARTIAL THRMPLAS CECELIA 2023-07-06 06:50:00 Edward Batista [facility] POCT GLUCOSE(AGE >30DAYS) 2023-07-06 06:44:00 Edward Batista [facility] [id number] 2023-04-19 00:00:00 MARTABren [facility] POCT GLUCOSE (AUTOMATED) 2023-02-18 16:47:00 Whitney Emanuel [facility] POCT GLUCOSE (AUTOMATED) 2023-02-18 13:20:00 [facility] MR KNEE LEFT W WO CONTRAST 2023-02-18 13:00:00 Laura Snider [facility] POCT GLUCOSE (AUTOMATED) 2023-02-18 01:00:00 Whitney Emanuel [facility] POCT GLUCOSE (AUTOMATED) 2023-02-17 21:46:00 Whitney Emanuel [facility] POCT GLUCOSE (AUTOMATED) 2023-02-17 16:27:00 Whitney Emanuel [facility] VANCOMYCIN TROUGH 2023-02-17 14:39:00 [facility] PO[facility] GLUCOSE (AUTOMATED) 2023-02-17 12:32:00 Whitney Emanuel [facility] BASIC METABOLIC PANEL (NA, K, CL, CO2, GLUCOSE, BUN, CREATININE, CA) 2023-02-17 08:58:00 Beatriz Vieira [facility] CBC WITH DIFF 2023-02-17 08:58:00 Beatriz Vieira [facility] POCT GLUCOSE (AUTOMATED) 2023-02-17 00:57:00 Whitney Emanuel [facility] POCT GLUCOSE (AUTOMATED) 2023-02-16 22:03:00 [facility] POCT GLUCOSE (AUTOMATED) 2023-02-16 17:09:00 Whitney Emanuel [facility] POCT GLUCOSE (AUTOMATED) 2023-02-16 13:15:00 [facility] (NA, K, CL, CO2, GLUCOSE, BUN, CREATININE, CA) 2023-02-16 09:23:00 Laura Snider [facility] CBC WITH DIFF 2023-02-16 09:23:00 Laura Snider [facility] POCT GLUCOSE (AUTOMATED) 2023-02-16 00:44:00 Whitney Emanuel [facility] POCT GLUCOSE (AUTOMATED) 2023-02-15 22:05:00 Whitney Emanuel [facility] POCT GLUCOSE (AUTOMATED) 2023-02-15 16:58:00 [facility] VANCOMYCIN TROUGH 2023-02-15 14:44:00 Griffin Wheeler [facility] POCT GLUCOSE (AUTOMATED) 2023-02-15 12:52:00 Whitney Emanuel [facility] BASIC METABOLIC PANEL (NA, K, CL, CO2, GLUCOSE, BUN, CREATININE, CA) 2023-02-15 10:34:00 Griffin Wheeler [facility] POCT GLUCOSE (AUTOMATED) 2023-02-15 01:05:00 Whintey Emanuel [facility] MRSA / MSSA SCREEN BY PCR, GITA 2023-02-14 23:42:00 Laura Snider [facility] POCT GLUCOSE (AUTOMATED) 2023-02-14 21:47:00 Whitney Emanuel [facility] ASPIRATE OR ABSCESS CULTURE(AEROBIC/ANAEROBI C) 2023-02-14 19:45:00 Natalie [facility] WOUND/ASPIRATE OR ABSCESS CULTURE 2023-02-14 19:45:00 Natalie [facility] POCT GLUCOSE (AUTOMATED) 2023-02-14 17:16:00 Whitney Emanuel [facility] POCT GLUCOSE (AUTOMATED) 2023-02-14 12:42:00 Whitney Emanuel [facility] BASIC METABOLIC PANEL (NA, K, CL, CO2, GLUCOSE, BUN, CREATININE, CA) 2023-02-14 10:38:00 Griffin Wheeler [facility] CBC WITHOUT DIFF 2023-02-14 10:38:00 Griffin Wheeler [facility] LACTIC ACID WHOLE BLOOD 2023-02-14 10:38:00 Sherrie Wheeler [facility] SEDIMENTATION RATE 2023-02-14 05:08:00 Griffin Wheeler [facility] GLYCOSYLATED HEMOGLOBIN (A1C) 2023-02-14 05:08:00 Griffin Wheeler [facility] BLOOD CULTURE SCREEN 2023-02-13 23:58:00 Serenity Serra [facility] CT KNEE LEFT W CONTRAST 2023-02-13 22:50:34 Do andrea Serra [facility] ASSIGNMENT OF BENEFITS 2023-02-13 21:03:19 Docto r Unassigned, Olinda [facility] BLOOD CULTURE SCREEN 2023-02-13 19:53:00 Serenity Serra [facility] COMP. METABOLIC PANEL (30037) 2023-02-13 19:53:00 Olvin Serra [facility] CBC WITH DIFF 2023-02-13 19:53:00 Olvin Serra [facility] WOUND/ASPIRATE OR ABSCESS CULTURE 2023-02-13 19:53:00 Olvin Serra [facility] WOUND CULTURE 2023-02-13 19:53:00 Olvin Serra [facility] LACTIC ACID WHOLE BLOOD 2023-02-13 19:52:00 Do andrea Serra [facility] NOTICE OF PRIVACY PRACTICES 2023-02-13 17:33:05 Doctor Unassigned, Olinda [facility] CONSENT/REFUSAL FOR DIAGNOSIS AND TREATMENT 2023-02-13 17:31:55 Doctor Unassigned, Olinda [facility] [id number] 2022-11-19 00:00:00 QAMMU [facility] [id number] 2022-11-19 00:00:00 QAMMU [facility] [id number] 2022-11-13 00:00:00 DENCH [facility] [id number] 2022-11-12 00:00:00 QAMMU [facility] [id number] 2022-11-12 00:00:00 SONCH.01 [facility] [id number] 2022-10-14 00:00:00 DESKE [facility] [id number] 2022-10-14 00:00:00 DESKE [facility] [id number] 2022-10-14 00:00:00 DESKE [facility] [id number] 2022-10-08 00:00:00 OMESH [facility] [id number] 2022-10-08 00:00:00 OMESH [facility] [id number] 2022-10-08 00:00:00 OMESH [facility] [id number] 2022-10-08 00:00:00 SONCH.01 [facility] [id number] 2022-10-08 00:00:00 SONCH.01 [facility] [id number] 2022-05-04 00:00:00 DESKE [facility] [id number] 2022-05-04 00:00:00 DESKE [facility] [id number] 2022-05-01 00:00:00 ELDGR [facility] [id number] 2022-04-29 00:00:00 DANMA01 [facility] [id number] 2022-04-27 00:00:00 DANMA01 [facility] Encounters Start Date/Time End Date/Time Encounter Type Admission Type Attending [facility] Facility Care Department Encounter ID Source 2023-11-20 07:46:00 Outpatient David Yepez [facility] [id number] [facility] 2023-10-21 08:31:00 Outpatient David Yepez [facility] [id number] [facility] 2023-10-16 14:56:00 Outpatient David Yepez [facility] [id number] [facility] 2023-10-15 11:55:01 Outpatient David Yepez [facility] [id number] [facility] 2023-10-09 10:04:01 Outpatient David Yepez [facility] [id number] [facility] 2023-01-15 10:26:54 Outpatient Arsh Rojo [facility] [id number] [facility] 2023-01-14 08:45:16 Outpatient Arsh Rojo [facility] [id number] [facility] 2023-01-13 11:00:21 Outpatient Arsh Rojo [facility] [id number] [facility] 2022-12-27 13:28:45 Outpatient Arsh Rojo [facility] [id number] [facility] 2022-04-17 09:41:00 Inpatient EM EDDOC, GENERIC [facility] JANET [id number] [facility] 2021-08-17 01:04:37 Outpatient AL RSTURIAH [facility]RI[facility] [id number] [facility] 2021-08-16 01:05:37 Outpatient AL RSTURIAH [facility]RI[facility]O [facility] [id number] [facility] 2023-11-24 00:00:00 2023-11-24 00:00:00 OFFICE VISIT ESTAB PT LEVEL 4 STLMLC STLMLC [id number] [facility] 2023-11-06 00:00:00 2023-11-06 00:00:00 (TEL) STLMLC STLMLC [id number] [facility] 2023-11-05 00:00:00 2023-11-05 00:00:00 OFFICE VISIT ESTAB PT LEVEL 3 STLMLC STLMLC [id number] [facility] 2023-10-24 00:00:00 2023-10-24 00:00:00 OFFICE VISIT ESTAB PT LEVEL 4 STLMLC STLMLC [id number] [facility] 2023-10-17 00:00:00 2023-10-17 00:00:00 (TEL) STLMLC STLMLC [id number] [facility] 2023-10-13 00:00:00 2023-10-13 00:00:00 (TEL) STLMLC STLMLC [id number] [facility] 2023-10-09 00:00:00 2023-10-09 00:00:00 OFFICE VISIT ESTAB PT LEVEL 4 STLMLC STLMLC [id number] [facility] 2023-10-09 00:00:00 2023-10-09 00:00:00 (TEL) STLMLC STLMLC [id number] [facility] 2023-09-11 19:44:00 2023-09-24 21:50:00 Hospital Admission [facility] 2.16.840.1. [id number] 8294-04-04 14:44:00 2023-09-24 16:50:00 Inpatient 1 VERNA GILL [facility] [id number] Ember barnhart 2023-08-03 13:57:00 2023-08-04 12:35:00 Inpatient EM José Miguel [facility]roz[id number] 2023-07-28 00:00:00 2023-07-28 00:00:00 Letter (Out) [facility] 1.0.114 350.1.13.10 4.2.7.2.686 [id number] [facility] 2023-07-14 00:00:00 2023-07-14 00:00:00 Transition of Care Kennedi Garnica 1.20.114 350.1.13.10 4.2.7.2.686 [id number] [facility] 2023-07-06 00:41:00 2023-07-11 17:37:00 Inpatient X ELENA FREGOSO [facility] [place] [facility] [id number] [facility] 2023-07-06 00:41:00 2023-07-11 17:37:00 Hospital Encounter Edward Batista Shahzad Zaidan, Mohammed Fathi Amin, Saad [facility] 1..114 350.1.13.10 4.2.7.2.686 [id number] [facility] 2023-04-19 20:28:00 2023-04-25 12:53:00 Inpatient EM JustinKiel adam [facility] [id number] [facility] 2023-02-19 00:00:00 2023-02-19 00:00:00 Transition of Care Tieshasimon Julietajermiane DONAHUE 1..114 350.1.13.10 4.2.7.2.686 [id number] [facility] 2023-02-13 12:44:00 2023-02-18 15:37:00 Hospital Encounter Olvin Serra David Emanuel, Roy [facility] 1.2.840.114 350.1.13.10 4.2.7.2.686 [id number] [facility] 2023-02-13 12:44:00 2023-02-18 15:37:00 Inpatient JOSE JIMÉNEZ [facility] [id number] [facility] 2022-11-29 05:41:00 2022-11-29 08:05:00 Emergency EM Luis Enrique Mishra [facility] JANET [id number] [facility] 2022-11-11 00:59:00 2022-11-19 21:44:00 Inpatient EM Jimmy Mark [facility] INTE [id number] [facility] 2022-11-10 22:50:00 2022-11-11 02:53:00 Emergency Department Patient Visit [facility] 2.16.840.1. [id number] 8448-06-04 17:50:00 2022-11-10 21:53:00 Emergency 1 BECKI WYNN [facility] [id number] [facility] 2022-10-14 17:52:00 2022-10-24 14:30:00 Inpatient EL Curt Flako [facility] REHA [id number] [facility] 2022-10-04 18:21:00 2022-10-14 17:47:00 Inpatient EM Yung Loomis [facility] MEDI [id number] [facility] 2022-06-07 09:16:00 2022 13:52:00 Inpatient EM Kiel Fischer [facility] OBSE [id number] [facility] 2022-05-13 20:17:00 2022-05-14 01:34:00 Emergency EM Dax Tejeda [facility] JANET [id number] [facility] 2022-05-04 17:08:00 2022-05-11 12:55:00 Inpatient Flako Barnett [facility] REHA [id number] [facility] 2022-04-26 11:28:00 2022-05-04 16:49:00 Inpatient EM Yuli Pink [facility] SURG [id number] [facility] 2022-02-21 14:00:00 2022-02-21 14:00:[address] [facility] [id number] [facility] 2022-02-20 18:15:00 2022-02-20 18:15:00 Outpatient AL RSTGERARDO [facility] [id number] [facility] 2022-02-08 11:30:00 2022-02-08 11:30:00 Outpatient AL RSTUM [facility] [id number] [facility] 2020-04-19 13:28:00 2020-04-19 15:15:00 SYNCOPE AND COLLAPSE 1 LEXIE CHENEY [facility], [address], [place] [address] [id number] [facility] (LUF/LI V/SA) Results Test Description Test Time Test Comments Results Result Co mments Source STREP A RAPID 2023-11-24 00:00:00 Result ALBUMIN/CREATININE RATIO, RANDOM [id number] 00:00:00* Test Item Value Reference Range Interpretation Comme nts ALBUMIN, URINE, RANDOM (test code = 67227-1) 120.7 MG/DL NOT ESTAB MG/DL CALC ALBUMIN/CREAT, RND (test code = 76303-0) 386 MG/G See_Comment H [Automated messa ge] The system which generated this result transmitted reference range: <30 MG/G. The reference range was not used to interpret this result as normal/abnormal. CREATININE, URINE, CONC. (test code = 2161-8) 312.4 MG/DL NOT ESTAB MG/DL COMPREHENSIVE METABOLIC [id number] 00:00:00* Test Item Value Reference Range Interpretation Comme nts ALBUMIN (test code = 1751-7) 4.4 G/DL See_Comment [Automated messa ge] The system which generated this result transmitted reference range: 3.5-5.2 G/DL. The reference range was not used to interpret this result as normal/abnormal. ALKALINE PHOSPHATASE (test code = 6768-6) 130 U/L See_Comment H [Automated message] The system which generated this result transmitted reference range: 40-123 U/L. The reference range was not used to interpret this result as normal/abnormal. BILIRUBIN, TOTAL (test code = 1975-2) 0.3 MG/DL See_Comment [Automated message] The system which generated this result transmitted reference range: <=1.2 MG/DL. The reference range was not used to interpret this result as normal/abnormal. BUN (test code = 3094-0) 14 MG/DL See_Comment [Automated messa ge] The system which generated this result transmitted reference range: 6-20 MG/DL. The reference range was not used to interpret this result as normal/abnormal. CALCIUM (test code = 00657-5) 10.6 MG/DL See_Comment H [Automated messa ge] The system which generated this result transmitted reference range: 8.5-10.5 MG/DL. The reference range was not used to interpret this result as normal/abnormal. CALC A/G RATIO (test code = 1759-0) 1.1 RATIO See_Comment [Automated messa ge] The system which generated this result transmitted reference range: 1.0-2.6 RATIO. The reference range was not used to interpret this result as normal/abnormal. CALC BUN/CREAT (test code = 3097-3) 16 RATIO See_Comment [Automated messa ge] The system which generated this result transmitted reference range: 6-28 RATIO. The reference range was not used to interpret this result as normal/abnormal. CALC GLOBULIN (test code = 87499-0) 4.0 G/DL See_Comment H [Automated messa ge] The system which generated this result transmitted reference range: 1.9-3.7 G/DL. The reference range was not used to interpret this result as normal/abnormal. CARBON DIOXIDE (test code = 1963-8) 23 MEQ/L See_Comment [Automated messa ge] The system which generated this result transmitted reference range: 19-31 MEQ/L. The reference range was not used to interpret this result as normal/abnormal. CHLORIDE (test code = 2075-0) 95 MEQ/L See_Comment [Automated messa ge] The system which generated this result transmitted reference range: 95-107 MEQ/L. The reference range was not used to interpret this result as normal/abnormal. CREATININE (test code = 2160-0) 0.87 MG/DL See_Comment [Automated messa ge] The system which generated this result transmitted reference range: 0.80-1.40 MG/DL. The reference range was not used to interpret this result as normal/abnormal. eGFR (2020 CKD-EPI) (test code = 80785-6) 100 ML/MIN/1.73 See_Comment [Automated message] The system which generated this result transmitted reference range: >60 ML/MIN/1.73. The reference range was not used to interpret this result as normal/abnormal. GLUCOSE (test code = 1558-6) 316 MG/DL See_Comment H [Automated messa ge] The system which generated this result transmitted reference range: 70-99 MG/DL. The reference range was not used to interpret this result as normal/abnormal. POTASSIUM (test code = 2823-3) 4.6 MEQ/L See_Comment [Automated messa ge] The system which generated this result transmitted reference range: 3.5-5.4 MEQ/L. The reference range was not used to interpret this result as normal/abnormal. PROTEIN, TOTAL (test code = 2885-2) 8.4 G/DL See_Comment H [Automated messa ge] The system which generated this result transmitted reference range: 6.1-8.3 G/DL. The reference range was not used to interpret this result as normal/abnormal. AST (test code = 1920-8) 32 U/L See_Comment [Automated messa ge] The system which generated this result transmitted reference range: 9-50 U/L. The reference range was not used to interpret this result as normal/abnormal. ALT (test code = 1742-6) 40 U/L See_Comment [Automated messa ge] The system which generated this result transmitted reference range: 5-50 U/L. The reference range was not used to interpret this result as normal/abnormal. SODIUM (test code = 2951-2) 135 MEQ/L See_Comment [Automated Gen110a ge] The system which generated this result transmitted reference range: 133-146 MEQ/L. The reference range was not used to interpret this result as normal/abnormal. CULTURE, BODY [id number] 00:00:00* Test Item Value Reference Range Interpretation Comme nts CULTURE, BODY FLUID (test code = 610-6) SPECIMEN NUMBER: [id number] A HEMOGLOBIN [id number] 00:00:00* Test Item Value Reference Range Interpretation Comme nts A1C (test code = 4548-4) 8.6% HEMOGLOBIN [id number] 00:00:00* Test Item Value Reference Range Interpretation Comme nts A1C (test code = 4548-4) 8.6% GLUCOSE BEDSIDE [id number] 11:39:00* Test Item Value Reference Range Interpretation Comme nts GLUCOSE BEDSIDE TESTING (jenelle t code = GLUBED) 228 MG/DL 70-119 H GLUCOSE BEDSIDE [id number] 07:26:00* Test Item Value Reference Range Interpretation Comme nts GLUCOSE BEDSIDE TESTING (jenelle t code = GLUBED) 214 MG/DL 70-119 H BASIC METABOLIC [id number] 05:53:00* Test Item Value Reference Range Interpretation Comme nts SODIUM (test code = NA) 136.0 mmol/L 133-144 N POTASSIUM (test code = K) 4.1 mmol/L 3.5-5.1 N CHLORIDE (test code = CL) 103 mmol/L 95-105 N CARBON DIOXIDE (test code = CO2) 28 mmol/L 21-32 N ANION GAP (test code = GAP) 5.0 GAP calc 4.0-15.0 N GLUCOSE (test code = GLU) 222 MG/DL 70-110 H BLOOD UREA NITROGEN (test code = BUN) 16 MG/DL 7-18 N GLOMERULAR FILTRATION RATE (test code = GFR) 103 estGFR >60 The Glomerular Filtration Rate is a calculated parameterbased on serum Creatinine, patient age and sex. GFR valuesless than 60 mL/min/1.73 square meters are indicative ofChronic Kidney Disease. Values less than 15 mL/min/1.73square meters indicate Kidney failure. The calculation forGFR is based on the CKD-EPI (2020) calculation. This formulais race indifferent and is the recommended formula for GFRby the National Kidney Foundation for Adults.The GFR will not calculate if the sex is unknown or if thepatient's age is <18 years. CREATININE (test code = CREAT) 0.79 MG/DL 0.55-1.30 N Results may be depressed if patient is takingN-Acetylcysteine (NAC) and Metamizole (Dipyrone). CALCIUM (test code = CA) 8.9 MG/DL 8.5-10.1 N INDEX HEMOLYSIS (test code = HEMINDEX) 1 NORMAL <10 MG Index/DL See_Comment [Automated message] The system which generated this result transmitted reference range: 1 NORMAL. The reference range was not used to interpret this result as normal/abnormal. INDEX ICTERIC (test code = ICTINDEX) 1 NORMAL <2 MG Index/DL See_Comment [Automated message] The system which generated this result transmitted reference range: 1 NORMAL. The reference range was not used to interpret this result as normal/abnormal. INDEX LIPEMIA (test code = LIPINDEX) 1 NORMAL <50 MG Index/DL See_Comment [Automated message] The system which generated this result transmitted reference range: 1 NORMAL. The reference range was not used to interpret this result as normal/abnormal. Comment: MAG LEVEL IN [id number] 05:53:00* Test Item Value Reference Range Interpretation Comme nts MAGNESIUM (test code = MAG) 1.9 MG/DL 1.6-2.6 N Comment: MAG LEVEL IN AMCBC W/AUTO [id number] 05:18:00* Test Item Value Reference Range Interpretation Comme nts WHITE BLOOD CELL (test code = WBC) 7.4 K/mm3 4.1-12.1 N RED BLOOD CELL (test code = RBC) 4.79 M/mm3 3.8-5.5 N HEMOGLOBIN (test code = HGB) 13.7 G/DL 10.6-15.8 N HEMATOCRIT (test code = HCT) 40.9 % 31.8-47.4 N MEAN CELL VOLUME (test code = MCV) 85.4 fL 80.1-101.1 N MEAN CELL HGB (test code = MCH) 28.6 pg 25.3-35.3 N MEAN CELL HGB CONCETRATION ( test code = MCHC) 33.5 G/DL 32.7-35.1 N RED CELL DISTRIBUTION WIDTH (test code = RDW) 13.0 % 12.2-16.4 N RED CELL DISTRIBUTION WIDTH (test code = RDW-SD) 40.2 fL 35.1-43.9 N PLATELET COUNT (test code = PLT) 197 K/mm3 155-337 N MEAN PLATELET VOLUME (test c ode = MPV) 9.9 fL 7.6-10.4 N GRANULOCYTE % (test code = GR%) 55.4 % 37.8-82.6 N IMMATURE GRANULOCYTE % (test code = IG%) 0.3 % 0.0-2.0 N LYMPHOCYTE % (test code = LY%) 29.9 % 14.1-45.4 N MONOCYTE % (test code = MO%) 10.6 % 2.5-11.7 N EOSINOPHIL % (test code = EO%) 2.7 % 0.0-6.2 N BASOPHIL % (test code = BA%) 1.1 % 0.0-2.6 N NUCLEATED RBC % (test code = NRBC%) 0.0 /100WBC% 0.0-1.0 N GRANULOCYTE # (test code = GR#) 4.08 k/mm3 2.0-13.7 N IMMATURE GRANULOCYTE # (test code = IG#) 0.02 K/mm3 0.00-0.03 N LYMPHOCYTE # (test code = LY#) 2.20 K/mm3 0.6-3.8 N MONOCYTE # (test code = MO#) 0.78 K/mm3 0.11-0.59 H EOSINOPHIL # (test code = EO#) 0.20 K/mm3 0.0-0.4 N BASOPHIL # (test code = BA#) 0.08 K/mm3 0.0-0.1 N NUCLEATED RBC # (test code = NRBC#) 0.00 K/mm3 0.00-0.05 N GLUCOSE BEDSIDE [id number] 21:53:00* Test Item Value Reference Range Interpretation Comme nts GLUCOSE BEDSIDE TESTING (jenelle t code = GLUBED) 264 MG/DL 70-119 H GLUCOSE BEDSIDE [id number] 16:09:00* Test Item Value Reference Range Interpretation Comme nts GLUCOSE BEDSIDE TESTING (jenelle t code = GLUBED) 229 MG/DL 70-119 H GLUCOSE BEDSIDE [id number] 11:04:00* Test Item Value Reference Range Interpretation Comme nts GLUCOSE BEDSIDE TESTING (jenelle t code = GLUBED) 265 MG/DL 70-119 H - CT ANGIO [id number] 10:56:00 [facility] 1965 Sex: M Patient Name: BRIGHT SALAZAR Unit No: [id number] EXAMS: CPT CODE: [id number] CT ANGIO CHEST 69945 EXAM: - CT ANGIO CHEST HISTORY: elev troponin LOCATION CODE:T18 COMPARISON: Chest radiograph 08/02/2023. CTA chest 04/19/2023. TECHNIQUE: Axial CT images were acquired with IV contrast. Images are reviewed according to the CT angiogram protocol with 3-D and/or MIP post processing imaging generated. One ormore of the following dose reduction techniques were used: Automated exposure control, adjustment of the mA and/or kV according to patient size, and/or iterative reconstruction. Unless otherwise specified, incidental findings do not require dedicated imaging follow-up. FINDINGS: Study quality: Adequate. Pulmonary embolism: No pulmonary embolism. Pulmonary arteries are normal in size. Central airways: Clear Lung parenchyma: Lungs are well-expanded without focal airspace consolidation or suspicious nodule. Small calcified right lung granulomas are incidentally noted. Pleural spaces: No pleuraleffusion or pneumothorax. Lymph nodes: No thoracic lymph node enlargement. Small calcified right hilar lymph nodes are incidentally noted. Mediastinum: Normal heart size. No pericardial effusion or evidence of right heart strain. CABG changes of the mediastinum noted. Normal caliber aorta without dissection. Esophagus appears unremarkable. Upper abdomen: No acute process Bones: No acute fracture. No suspicious osseous lesion. Other: No significant additional findings. IMPRESSION: No pulmonary embolism. No acute cardiopulmonary disease. RUFINA Beyer NAME: [facility] PHYS:Ezra Jara MD [address] [place], [place] [address]VD : 1965 AGE: 58 SEX: Jasmin [place] [address] LOC: B.413 W PHONE #: [phone] EXAM DATE: 08/03/2023 STATUS: ADM INFAX #: [phone] RAD #: D/C DT PAGE 1 Signed Report (CONTINUED) Patient Name: BRIGHT SALAZAR Unit No: [id number] EXAMS: CPT CODE: [id number] CT ANGIO CHEST [address]13 (Continued) at 1056 Reported and signed by: Sebastian Ashby MD CC: Ezra Austin MD Dictated Date/Time: 08/03/2023 (1056) Technologist: Cher Whitfield; Pai CTDI: DLP: Trnscrpt: 08/03/2023 (1056) [id number] RUFINA Beyer NAME: FRIDAKRISTYNBR[facility] MEDICAL[facility] PHYS: Ezra Jara MD [address] [place], [place] [address] : 1965 AGE: 58 SEX: Jasmin [place] [address] LOC: B.413 W PHONE #: [phone] EXAM DATE: 08/03/2023 ST ATUS: ADM IN FAX #: [phone] RAD #: D/C DT PAGE 2 Signed Report Patient Name: BRIGHT SALAZAR Unit No: [id number] EXAMS: CPT CODE: [id number] CT ANGIO CHEST [address]6640 (Continued) Orig Print D/T: S: 08/03/2023 (1059) RUFINA Beyer NAME: [facility] PHYS: Ezra La MD [address] [place], [place] [address]VD : 1965 AGE: 58 SEX: Jasmin [place], [place] [address] LOC: Carloz W PHONE #: [phone] EXAM DATE: 08/03/2023 STATUS: ADM IN FAX #: [phone] RAD #:D/C DT PAGE 3 Signed ReportB-TYPE NATRIURETIC [id number] 10:16:00* Test Item Value Reference Range Interpretation Comme nts B-TYPE NATRIURETIC PEPTIDE (test code = BNP) < 30.00 PG/ML 0.00-100.00 N GLUCOSE BEDSIDE [id number] 07:21:00* Test Item Value Reference Range Interpretation Comme nts GLUCOSE BEDSIDE TESTING (jenelle t code = GLUBED) 210 MG/DL 70-119 H TROP-I HIGH [id number] 06:00:00* Test Item Value Reference Range Interpretation Comme nts TROP-I HIGH SENSITIVITY (test code = TROPIHS) 9 ng/L 0-45 N CAUTION: Units of the current test methodology (ng/L) differfrom the prior test methodology (ng/mL) by a factor of 1000. 99th Percentile Upper Reference Limit (URL): Females: 54 ng/LMales: 78 ng/L In order to distinguish acute elevations of high sensitivitytroponin from other clinical conditions, the FourthUniversal Definition of Myocardial Infarction stressesclinical assessment and the demonstration of a rise and/orfall in serial troponin results above the URL. Results from different methodologies should not be comparedto one another as quantitative results and URLs may vary bymethod. LACTIC [id number] 05:58:00* Test Item Value Reference Range Interpretation Comme nts LACTIC ACID (test code = LACT) 1.5 mmol/L 0.4-2.0 N CBC W/AUTO [id number] 04:04:00* Test Item Value Reference Range Interpretation Comme nts WHITE BLOOD CELL (test code = WBC) 9.4 K/mm3 4.1-12.1 N RED BLOOD CELL (test code = RBC) 5.40 M/mm3 3.8-5.5 N HEMOGLOBIN (test code = HGB) 15.5 G/DL 10.6-15.8 N HEMATOCRIT (test code = HCT) 45.2 % 31.8-47.4 N MEAN CELL VOLUME (test code = MCV) 83.7 fL 80.1-101.1 N MEAN CELL HGB (test code = MCH) 28.7 pg 25.3-35.3 N MEAN CELL HGB CONCETRATION ( test code = MCHC) 34.3 G/DL 32.7-35.1 N RED CELL DISTRIBUTION WIDTH (test code = RDW) 13.1 % 12.2-16.4 N RED CELL DISTRIBUTION WIDTH (test code = RDW-SD) 39.8 fL 35.1-43.9 N PLATELET COUNT (test code = PLT) 209 K/mm3 155-337 N MEAN PLATELET VOLUME (test c ode = MPV) 10.3 fL 7.6-10.4 N GRANULOCYTE % (test code = GR%) 60.4 % 37.8-82.6 N IMMATURE GRANULOCYTE % (test code = IG%) 0.2 % 0.0-2.0 N LYMPHOCYTE % (test code = LY%) 27.3 % 14.1-45.4 N MONOCYTE % (test code = MO%) 9.9 % 2.5-11.7 N EOSINOPHIL % (test code = EO%) 1.7 % 0.0-6.2 N BASOPHIL % (test code = BA%) 0.5 % 0.0-2.6 N NUCLEATED RBC % (test code = NRBC%) 0.0 /100WBC% 0.0-1.0 N GRANULOCYTE # (test code = GR#) 5.65 k/mm3 2.0-13.7 N IMMATURE GRANULOCYTE # (test code = IG#) 0.02 K/mm3 0.00-0.03 N LYMPHOCYTE # (test code = LY#) 2.56 K/mm3 0.6-3.8 N MONOCYTE # (test code = MO#) 0.93 K/mm3 0.11-0.59 H EOSINOPHIL # (test code = EO#) 0.16 K/mm3 0.0-0.4 N BASOPHIL # (test code = BA#) 0.05 K/mm3 0.0-0.1 N NUCLEATED RBC # (test code = NRBC#) 0.00 K/mm3 0.00-0.05 N SED [id number] 04:04:00* Test Item Value Reference Range Interpretation Comme nts SED RATE (test code = SEDW) 55 mm/hr 0-20 H COMPREHENSIVE METABOLIC [id number] 03:59:00* Test Item Value Reference Range Interpretation Comme nts SODIUM (test code = NA) 132.0 mmol/L 133-144 L POTASSIUM (test code = K) 3.9 mmol/L 3.5-5.1 N CHLORIDE (test code = CL) 100 mmol/L 95-105 N CARBON DIOXIDE (test code = CO2) 26 mmol/L 21-32 ANION GAP (test code = GAP) 6.0 GAP calc 4.0-15.0 N GLUCOSE (test code = GLU) 229 MG/DL 70-110 H BLOOD UREA NITROGEN (test code = BUN) 17 MG/DL 7-18 N GLOMERULAR FILTRATION RATE (test code = GFR) 95 estGFR >60 The Glomerular Filtration Rate is a calculated parameterbased on serum Creatinine, patient age and sex. GFR valuesless than 60 mL/min/1.73 square meters are indicative ofChronic Kidney Disease. Values less than 15 mL/min/1.73square meters indicate Kidney failure. The calculation forGFR is based on the CKD-EPI (202) calculation. This formulais race indifferent and is the recommended formula for GFRby the National Kidney Foundation for Adults.The GFR will not calculate if the sex is unknown or if thepatient's age is <18 years. CREATININE (test code = CREAT) 0.93 MG/DL 0.55-1.30 N Results may be depressed if patient is takingN-Acetylcystein e (NAC) and Metamizole (Dipyrone). TOTAL PROTEIN (test code = PROT) 8.5 G/DL 6.4-8.2 H ALBUMIN (test code = ALB) 3.1 G/DL 3.4-5.0 L ALBUMIN/GLOBULIN RATIO (test code = A/G) 0.6 RATIO 1.2-2.2 L CALCIUM (test code = CA) 9.2 MG/DL 8.5-10.1 N BILIRUBIN TOTAL (test code = BILT) 0.65 MG/DL 0.00-1.00 N BILIRUBIN DIRECT (test code = BILD) 0.17 MG/DL 0.00-0.30 N BILIRUBIN INDIRECT (test code = BILIND) 0.48 MG/DL 0.2-1.3 N SGOT/AST (test code = AST) 26 Unit/L 15-37 N SGPT/ALT (test code = ALT) 38 Unit/L 12-78 N ALKALINE PHOSPHATASE TOTAL (test code = ALKP) 116 Unit/L 45-117 N INDEX HEMOLYSIS (test code = HEMINDEX) 1 NORMAL <10 MG Index/DL See_Comment [Automated message] The system which generated this result transmitted reference range: 1 NORMAL. The reference range was not used to interpret this result as normal/abnormal. INDEX ICTERIC (test code = ICTINDEX) 1 NORMAL <2 MG Index/DL See_Comment [Automated message] The system which generated this result transmitted reference range: 1 NORMAL. The reference range was not used to interpret this result as normal/abnormal. INDEX LIPEMIA (test code = LIPINDEX) 1 NORMAL <50 MG Index/DL See_Comment [Automated message] The system which generated this result transmitted reference range: 1 NORMAL. The reference range was not used to interpret this result as normal/abnormal. THYROID STIMULATING [id number] 03:59:00* Test Item Value Reference Range Interpretation Comme nts THYROID STIMULATING HORMONE (test code = TSH) 0.491 mc IU/ML 0.340-4.820 N GLYCOSYLATED HEMOGLOBIN (HA1C)2023-08-03 03:39:00* Test Item Value Reference Range Interpretation Comme nts GLYCOSYLATED HEMOGLOBIN (HA1 C) (test code = GLYHGB) 9.7 % IS-A1C 4.5-5.6 H ESTIMATED AVERAGE [id number] 03:39:00* Test Item Value Reference Range Interpretation Comme nts ESTIMATED AVERAGE GLUCOSE (t est code = EAG) 232 MG/DLest C REACTIVE [id number] 03:39:00* Test Item Value Reference Range Interpretation Comme nts C REACTIVE PROTEIN (test cod e = CRP) 10.200 MG/DL 0.000-0.900 H TROP-I HIGH [id number] 03:39:00* Test Item Value Reference Range Interpretation Comme nts TROP-I HIGH SENSITIVITY (test code = TROPIHS) 10 ng/L 0-45 N CAUTION: Units of the current test methodology (ng/L) differfrom the prior test methodology (ng/mL) by a factor of 1000. 99th Percentile Upper Reference Limit (URL): Females: 54 ng/LMales: 78 ng/L In order to distinguish acute elevations of high sensitivitytroponin from other clinical conditions, the FourthUniversal Definition of Myocardial Infarction stressesclinical assessment and the demonstration of a rise and/orfall in serial troponin results above the URL. Results from different methodologies should not be comparedto one another as quantitative results and URLs may vary bymethod. LIPID PROFILE (CORONARY RISK)2023-08-03 03:39:00* Test Item Value Reference Range Interpretation Comments TRIGLYCERIDES (test code = TRIG) 310 MG/DL 0-150 H HIGH RISK TRIGLY CERIDE 200-499 MG/DLReference intervals provided by The National CholesterolEducation Program Adult Treatment Panel III (NCEP-ATP III).Results may be depressed if patient is takingN-Acetylcysteine (NAC) and Metamizole (Dipyrone). CHOLESTEROL (test code = CHOL) 211 MG/DL 133-200 H CHOLESTEROL REFE RENCE RANGE: AGE: MODERATE RISK HIGH RISK 20-29 206-227 MG/DL >227 MG/DL 30-39 228-247 MG/DL >247 MG/DL 40 & OVER 248-268 MG/DL >268 MG/DL CHOLESTEROL/HDL RATIO (test code = CHOLHDL) 6.20 RATIO See_Comment REFERENCE RANGE: MALE FEMALE 1/2 AVG RISK 3.43 3.27 AVG RISK 4.97 4.44 2X AVG RISK 9.55 7.05 3X AVG RISK 23.39 11.04 [Automated message] The system which generated this result transmitted reference range: 0-. The reference range was not used to interpret this result as normal/abnormal. HDL CHOLESTEROL (test code = HDL) 34 MG/DL 40-59 L Results maybe depressed if patient is taking Metamizole(Dipyrone). NON-HDL CHOLESTEROL (test code = NHDL) 177 mg/dL <130 H Patients with CHD or CHD risk LDL: <70 mg/dL nonHDL: <100 mg/dLPatients with 2+ risk factors LDL: <130 mg/dL nonHDL: <160 mg/dLPatients with 0-1 risk factors LDL: <160 mg/dL nonHDL: <190 mg/dL LIPOPROTEIN LDL (test code = LDL) 115 MG/DL 0-129 N LDL/HDL (test code = LDL/HDL) 3.38 Ratio See_Comment H LDL/HDL RISK ASSESSMENT1.47 One-half average3.22 Average5.03 Two times average6.14 Three times average [Automated message] The system which generated this result transmitted reference range: 1.48-3.22 Avg. The reference range was not used to interpret this result as normal/abnormal. INDEX HEMOLYSIS (test code = HEMINDEX) 1 NORMAL <10 MG Index/DL See_Comment [Automated message] The system which generated this result transmitted reference range: 1 NORMAL. The reference range was not used to interpret this result as normal/abnormal. INDEX ICTERIC (test code = ICTINDEX) 1 NORMAL <2 MG Index/DL See_Comment [Automated message] The system which generated this result transmitted reference range: 1 NORMAL. The reference range was not used to interpret this result as normal/abnormal. INDEX LIPEMIA (test code = LIPINDEX) 1 NORMAL <50 MG Index/DL See_Comment [Automated message] The system which generated this result transmitted reference range: 1 NORMAL. The reference range was not used to interpret this result as normal/abnormal. LACTIC [id number] 03:39:00* Test Item Value Reference Range Interpretation Comme nts LACTIC ACID (test code = LACT) 1.3 mmol/L 0.4-2.0 N PT AND [id number] 03:26:00* Test Item Value Reference Range Interpretation Comments PT PATIENT (test code = PTP) 12.5 SECONDS 9.4-12.5 N INTERNATIONAL NORMAL RATIO (test code = INR) 1.1 INR Unit 0.9-1.1 N --------- ---------Therapeutic range for INR is dependent upon the situation.2.0-3.0 Prophylaxis / venous thromboembolism, Treatment of DVT, Acute myocardial infarction stroke prevention, Systemic embolism prevention in fibrillation3.0-4.5 AMI recurrence prevention, Systemic embolism prevention in prosthetic heart 3.0-5.4 AMI mortality reduction THROMBOPLASTIN TIME PARTIAL (test code = PTT) 33.2 SECONDS 24-37.7 N THERAPEUTIC RANG E FOR UNFRACTIONATED HEPARIN = 58.3-84.6 SEC This test is not recommended to monitor low molecularweight heparin or danaparoid. Order LMWH test COLLECTION THROUGH LINES THAT HAVE BEEN PREVIOUSLY FLUSHEDWITH HEPARIN SHOULD BE AVOIDED DUE TO POSSIBLE HEPARINCONTAMINATION [id number] 03:26:00* Test Item Value Reference Range Interpretation Comme nts D-DIMER (test code = DDIMER) 537 FEUng/mL 0-500 H THE CUT-OFF VALU E FOR EXCLUSION OF VTE = 500 FEU ng/mLNOTE: This method must be used with additional tests in theevaluation of VTE and should not be used to exclude VTE withpretest probability alone. - CT ABD PELVIS W/O [id number] 19:11:00 [facility] : 1965 Sex: M Patient Name: BRIGHT SALAZAR Unit No: [id number] EXAMS: CPT CODE: [id number] CT ABD PELVIS W/O CONT 25759 EXAM: CT abdomen and pelvis without contrast. LOCATION: H 12 HISTORY: ABD PAIN left flank TECHNIQUE: Unenhanced spiral slices were taken from the domes of the diaphragm, through the pubic symphysis. Multiplanar reformations were performed. One or more of the following dose reduction techniques were used: Automated exposure control, adjustment of the mA and/or kV according to patient size, and/or utilization of iterative reconstruction technique. Unless otherwise specified, incidental findings do not require dedicated imaging follow-up. FINDINGS: LOWER THORAX: The lung bases are clear. GALLBLADDER: The gallbladder has been removed. LIVER: The liver is of normal, homogeneous density. The intra-and extrahepatic biliary tree is normal. The hepatic and portal veins are patent. PANCREAS: The pancreas is normal. The pancreatic duct is normal in caliber. SPLEEN: Spleen is unremarkable. ADRENAL GLANDS: Adrenal glands are unremarkable. KIDNEYS/URETERS: Nonobstructing bilateral calculi are present. The kidneys are otherwise unremarkable.No perinephric fluid collections or hydronephrosis is seen. GASTROINTESTINAL: The large and small intestine are normal in caliber. The appendix is absent. PERITONEUM: No lymphadenopathy is found in the abdomen or the pelvis. No free fluid is seen. PELVIS: Mild prostatic hypertrophy is present. VASCULAR: The aorta is unremarkable. The IVC is normal. BONES/SOFT TISSUES: Unremarkable for age. IMPRESSION: 1. No acute abdominal findings. 2. Status post cholecystectomy. 3. Nephrolithiasis. 4. Status post appendectomy. 5. Prostatic hypertrophy. [facility] Pepito NAME: BRIGHT SALAZAR [address] [place] [address] PHYS: Lazarus Godwin, [place] [address] : 1965 AGE: 58 SEX: M LOC: B.ERS PHONE #: [phone] EXAM DATE: 08/02/2023 STATUS: REG ER FAX #: [phone] RAD #: D/C DT PAGE 1 Signed Report (CONTINUED) Patient Name: BRIGHT SALAZAR Unit No: [id number] EXAMS: CPT CODE: [id number] CT ABD PELVIS W/O CONT 96874 (Continued) at 1911 Reported and signed by: Mauri Barrera MD CC: Lazarus Mason DO Dictated Date/Time: 08/02/2023 (1910) Technologist: Corinna Song CTDI: DLP: Trnscrpt: 08/02/2023 (1910) Corey RUFINA Beyer NAME: POONAM SALAZAR [address] [place]YS: [place] [address] : 1965 AGE: 58 SEX: M LOC: B.[employer] PHONE #: [phone] EXAM DATE: 08/02/2023 STATUS: REG ERFAX #: [phone] RAD #: D/C DT PAGE 2 Signed Report Patient Name: BRIGHT SALAZAR Unit No: [id number] EXAMS: CPT CODE: [id number] CT ABD PELVIS W/O CONT 45507 (Continued) Orig Print D/T: S: 08/02/2023 (1913) TREASURETess Pepito NAME: BRIGHT SALAZAR [address] [place] [address] PHYS: [place] [address] : 1965 AGE: 58 SEX: M LOC: B.ERS PHONE #: [phone] EXAM DATE: 08/02/2023 STATUS: REG ER FAX #: [phone] RAD #: D/C DT PAGE 3 Signed Report- XR TIBIA/FIBULA 2 V [id number] 18:55:00 [facility] : 1965 Sex: M FAX:Tony Meade MD [phone] [place]: St: [facility] FAX: Lazarus Mason DO [phone] Patient Name: Juan SALAZAR No: [id number] EXAMS: CPT CODE: [id number] XR TIBIA/FIBULA 2 [place] [address] EXAM: Left knee 2 viewsAP and lateral LOCATION: H 12 HISTORY: pain FINDINGS: A left BKA is noted. No bone or joint abnormality is seen. The bony cortices are intact. The joint spaces are well preserved. The soft tissues are normal. IMPRESSION: Status post BKA. Electronically Signed by Mauri Barrera MD on08/02/2023 at 1855 Reported and signed by: Mauri Barrera MD CC: Lazarus Mason DO Dictated Date/Time: 08/02/2023 (1854)Technologist: Leila Proctor Transcribed Date/Time: 08/02/2023 (1854) By: isa SALEH Orig Print D/T: S: 08/02/2023 (1857) [facility] Pepito NAME: BRIGHT SALAZAR [address] [place] [address] Blvd PHYS: Lazarus Godwin, [place] [address] : 1965 AGE: 58 SEX: M LOC: SEAN PHONE #: [phone] EXAM DATE: 08/02/2023 STATUS: REG ER FAX #: [phone] RAD NO: DC Dt: PAGE 1 Signed ReportTROP-I HIGH [id number] 18:08:00* Test Item Value Reference Range Interpretation Comme nts TROP-I HIGH SENSITIVITY (test code = TROPIHS) 9 ng/L 0-45 N CAUTION: Units of the current test methodology (ng/L) differfrom the prior test methodology (ng/mL) by a factor of 1000. 99th Percentile Upper Reference Limit (URL): Females: 54 ng/LMales: 78 ng/L In order to distinguish acute elevations of high sensitivitytroponin from other clinical conditions, the FourthUniversal Definition of Myocardial Infarction stressesclinical assessment and the demonstration of a rise and/orfall in serial troponin results above the URL. Results from different methodologies should not be comparedto one another as quantitative results and URLs may vary bymethod. URINALYSIS [id number] 17:57:00* Test Item Value Reference Range Interpretation Comme nts UA COLOR (test code = COLU) DARK-YELLOW DESCRIPT YELLOW UA APPEARANCE (test code = APPU) TURBID (1+)HAZY-CLDY DESCRIPT CLEAR A UA GLUCOSE DIPSTICK (test code = DGLUU) 200 (2+) mg/dL See_Comment A [Automated message] The system which generated this result transmitted reference range: 0 (NORMAL). The reference range was not used to interpret this result as normal/abnormal. UA BILIRUBIN DIPSTICK (test code = BILU) 1.0 (1+) mg/dL See_Comment A [Automated message] The system which generated this result transmitted reference range: (NEG) 0. The reference range was not used to interpret this result as normal/abnormal. UA KETONE DIPSTICK (test code = KETU) TRACE mg/dL See_Comment [Automated message] The system which generated this result transmitted reference range: (NEG) 0. The reference range was not used to interpret this result as normal/abnormal. UA SPECIFIC GRAVITY (test code = SGU) 1.040 SG 1.001-1.035 A UA BLOOD DIPSTICK (test code = ENID) NEGATIVE (0.00) mg/dL See_Comment [Automated message] The system which generated this result transmitted reference range: 0 (NEG). The reference range was not used to interpret this result as normal/abnormal. UA PH DIPSTICK (test code = MARSHALL) 5.5 pH UNITS 4.6-8.0 UA PROTEIN DIPSTICK (test code = PROU) 600 (3+) mg/dL See_Comment A [Automated message] The system which generated this result transmitted reference range: (NEG) <30. The reference range was not used to interpret this result as normal/abnormal. UA UROBILINIOGEN DIPSTICK (test code = URO) 4 (2+) mg/Dl See_Comment A [Automated message] The system which generated this result transmitted reference range: (NORM)<2.0. The reference range was not used to interpret this result as normal/abnormal. UA NITRITE DIPSTICK (test code = JULIO) NEGATIVE (0) SCREEN NEG UA LEUKOCYTE ESTERASE DIPSTICK (test code = LEUU) NEGATIVE (0) Leuk/mcL See_Comment [Automated message] The system which generated this result transmitted reference range: (NEG) 0. The reference range was not used to interpret this result as normal/abnormal. UA WBC (test code = WBCU) 5-10 #WBC/HPF 0-3 A UA RBC (test code = RBCU) 0-3 #RBC/HPF 0-3 UA BACTERIA (test code = BACU) FEW >1 /HPF NONE-FEW UA CELLULAR CAST (test code = CELLUC) 10-20 #/LPF NONE A UA HYALINE CAST (test code = HYALU) >20 #/LPF 0-3 A UA MUCUS (test code = MUCU) MANY /LPF NONE A TROP-I HIGH [id number] 15:51:00* Test Item Value Reference Range Interpretation Comme nts TROP-I HIGH SENSITIVITY (test code = TROPIHS) 9 ng/L 0-45 N CAUTION: Units of the current test methodology (ng/L) differfrom the prior test methodology (ng/mL) by a factor of 1000. 99th Percentile Upper Reference Limit (URL): Females: 54 ng/LMales: 78 ng/L In order to distinguish acute elevations of high sensitivitytroponin from other clinical conditions, the FourthUniversal Definition of Myocardial Infarction stressesclinical assessment and the demonstration of a rise and/orfall in serial troponin results above the URL. Results from different methodologies should not be comparedto one another as quantitative results and URLs may vary bymethod. BASIC METABOLIC [id number] 15:48:00* Test Item Value Reference Range Interpretation Comme nts SODIUM (test code = NA) 130.0 mmol/L 133-144 L POTASSIUM (test code = K) 4.3 mmol/L 3.5-5.1 N CHLORIDE (test code = CL) 104 mmol/L 95-105 N CARBON DIOXIDE (test code = CO2) 21 mmol/L 21-32 N ANION GAP (test code = GAP) 5.0 GAP calc 4.0-15.0 N GLUCOSE (test code = GLU) 230 MG/DL 70-110 H BLOOD UREA NITROGEN (test code = BUN) 16 MG/DL 7-18 N GLOMERULAR FILTRATION RATE (test code = GFR) 86 estGFR >60 The Glomerular Filtration Rate is a calculated parameterbased on serum Creatinine, patient age and sex. GFR valuesless than 60 mL/min/1.73 square meters are indicative ofChronic Kidney Disease. Values less than 15 mL/min/1.73square meters indicate Kidney failure. The calculation forGFR is based on the CKD-EPI (202) calculation. This formulais race indifferent and is the recommended formula for GFRby the National Kidney Foundation for Adults.The GFR will not calculate if the sex is unknown or if thepatient's age is <18 years. CREATININE (test code = CREAT) 1.01 MG/DL 0.55-1.30 N Results may be depressed if patient is takingN-Acetylcysteine (NAC) and Metamizole (Dipyrone). CALCIUM (test code = CA) 9.1 MG/DL 8.5-10.1 N INDEX HEMOLYSIS (test code = HEMINDEX) 1 NORMAL <10 MG Index/DL See_Comment [Automated message] The system which generated this result transmitted reference range: 1 NORMAL. The reference range was not used to interpret this result as normal/abnormal. INDEX ICTERIC (test code = ICTINDEX) 1 NORMAL <2 MG Index/DL See_Comment [Automated message] The system which generated this result transmitted reference range: 1 NORMAL. The reference range was not used to interpret this result as normal/abnormal. INDEX LIPEMIA (test code = LIPINDEX) 1 NORMAL <50 MG Index/DL See_Comment [Automated message] The system which generated this result transmitted reference range: 1 NORMAL. The reference range was not used to interpret this result as normal/abnormal. - DUP AB/PEL/SC [id number] 15:47:00 [facility] : 1965 Sex: M Patient Name: BRIGHT SALAZAR Unit No: [id number] EXAMS: CPT CODE: [id number] DUP AB/PEL/SC COMP 66624 EXAM: - US SCROTUM AND CNTS, - DUP AB/PEL/SC COMP HISTORY: Left scrotal pain LOCATION CODE:T18 TECHNIQUE: Ultrasound of the scrotum and testicular doppler evaluation performed. COMPARISON: None. FINDINGS: The right testicle measures 4.6 x 2.5 x 3.3 cm. It demonstrates a normal echotexture. It demonstrates normal color and Doppler flow. The right epididymis demonstrates normal color Doppler flow and normal echogenicity with several subcentimeter cysts incidentally noted. The left testicle measures 4.5 x 2.7 x 3.8 cm. It demonstrates a normal echotexture with a 3 mm echogenic focus noted. It demons trates normal color and Doppler flow. The left epididymis demonstrates normal color Doppler flow and normal echogenicity. No varicocele, hernia or distinct mass. No significant hydrocele. Scrotal wall thickness appears normal. IMPRESSION: No acute or significant imaging abnormality. Normal blood flow is seen to the testes. Please refer to the findings section for additional details. at 1547 Reported and signed by: Sebastian Ashby MD CC: Lazarus Mason DO Technologist: Mey Dubois Trnscrbd D/ (1547) [id number] Probe: [facility] Print D/T: S: 08/02/2023 (1604) Probe: RUFINA Beyer NAME: [address] PHYS: [place], [place] [address] : 1965 AGE: 58 SEX: M LOC: BYOVANY PHONE #: [phone] EXAM DATE: 08/02/2023 STATUS: REG ER FAX #: [phone] RAD NO: Page 1 Signed Report- US SCROTUM AND [id number] 15:47:00 [facility] : 1965 Sex: M Patient Name: BRIGHT SALAZAR Unit No: [id number] EXAMS: CPT CODE: [id number] US SCROTUM AND CNTS 84405EGFD: - US SCROTUM AND CNTS, - DUP AB/PEL/SC COMP HISTORY: Left scrotal pain LOCATION CODE:T18 TECHNIQUE: Ultrasound of the scrotum and testicular doppler evaluation performed. COMPARISON: None. FINDINGS: The right testicle measures 4.6 x 2.5 x 3.3 cm. It demonstrates a normal echotexture. It demonstrates normal color and Doppler flow. The right epididymis demonstrates normal color Doppler flowand normal echogenicity with several subcentimeter cysts incidentally noted. The left testicle measures 4.5 x 2.7 x 3.8 cm. It demonstrates a normal echotexture with a 3 mm echogenic focus noted. It d emonstrates normal color and Doppler flow. The left epididymis demonstrates normal color Doppler flow and normal echogenicity. No varicocele, hernia or distinct mass. No significant hydrocele. Scrotal wall thickness appears normal. IMPRESSION: No acute or significant imaging abnormality. Normal blood flow is seen to the testes. Please refer to the findings section for additional details. at 1547 Reported and signed by: Sebastian Ashby MD CC: Lazarus Mason DO Technologist: Mey Dubois Trnscrbd D/ (1547) [id number] Probe: Orig Print D/T: S: 08/02/2023 (9472) Probe: RUFINA Beyer NAME: BRIGHT SALAZAR [address] [place] [address] Blvd PHYS: [place], [place] [address] : 1965 AGE: 58 SEX: M LOC: B.ERS PHONE #: [phone] EXAM DATE: 08/02/2023 STATUS: REG ER FAX #: [phone] RAD NO: Page 1 Signed ReportCBC W/O [id number] 15:33:00* Test Item Value Reference Range Interpretation Comme nts WHITE BLOOD CELL (test code = WBC) 12.5 K/mm3 4.1-12.1 H RED BLOOD CELL (test code = RBC) 5.30 M/mm3 3.8-5.5 N HEMOGLOBIN (test code = HGB) 15.5 G/DL 10.6-15.8 N HEMATOCRIT (test code = HCT) 44.3 % 31.8-47.4 N MEAN CELL VOLUME (test code = MCV) 83.6 fL 80.1-101.1 N MEAN CELL HGB (test code = MCH) 29.2 pg 25.3-35.3 N MEAN CELL HGB CONCETRATION ( test code = MCHC) 35.0 G/DL 32.7-35.1 N RED CELL DISTRIBUTION WIDTH (test code = RDW) 13.1 % 12.2-16.4 N PLATELET COUNT (test code = PLT) 176 K/mm3 155-337 N MEAN PLATELET VOLUME (test c ode = MPV) 10.0 fL 7.6-10.4 N - XR CHEST 1 [id number] 14:58:00 [facility] : 1965 Sex: M FAX:Tony Meade MD [phone] [place]: E St: REG FAX: Lazarus Mason DO [phone] Patient Name: BRIGHT SALAZAR Unit No: [id number] EXAMS: CPT CODE: [id number] XR CHEST 1 V 72362 Chest one view AP 08/02/2023 2:58 PM CLINICAL HISTORY: Chest pain COMPARISON: 11/19/2022 LOCATION: W1 FINDINGS: The lungs are clear. Car diomediastinal contours are within normal limits. The central pulmonary vasculature is not engorged. There are changes of median sternotomy for coronary artery bypass. IMPRESSION: Unremarkable frontal chest radiograph. at 1455 Reported and signed by: Regino Ramirez MD CC: Lazarus Mason DO Dictated Date/Time: 08/02/2023 (6541)Technologist: Leila Proctor Transcribed Date/Time: 08/02/2023 (2670) By: [email or web address] Orig PrintD/T: S: 08/02/2023 (6243) RUFINA Beyer NAME: BRIGHT SALAZAR [address] [place] [address] PHYS: [place], [place] [address] : 1965 AGE: 58 SEX: M LOC: SEAN PHONE #: [phone] EXAM DATE: 08/02/2023 STATUS: REG ER FAX #: [phone] RAD NO: DC Dt: PAGE 1 Signed ReportPOCT GLUCOSE (AUTOMATED) 2023-07-11 18:44:10* Test Item Value Reference Range Interpretation Comme nts POCT GLU (test code = 3137934842) 176 mg/dL 70-110 H Lab Interpretation (test cod e = 04175-7) Abnormal [facility] GLUCOSE (AUTOMATED)2023-07-11 14:10:49* Test Item Value Reference Range Interpretation Comme [facility] POCT GLU (test code = 1071924120) 152 mg/dL 70-110 H Lab Interpretation (test cod e = 51111-0) Abnormal [facility] GLUCOSE (AUTOMATED)2023-07-11 02:25:44* Test Item Value Reference Range Interpretation Comme nts POCT GLU (test code = 4924176627) 221 mg/dL 70-110 H Lab Interpretation (test cod e = 11346-6) Abnormal [facility] GLUCOSE (AUTOMATED)2023-07-10 23:18:23* Test Item Value Reference Range Interpretation Comme nts POCT GLU (test code = 8422637006) 156 mg/dL 70-110 H Lab Interpretation (test cod e = 21788-6) Abnormal [facility] GLUCOSE (AUTOMATED)2023-07-10 17:42:27* Test Item Value Reference Range Interpretation Comme nts POCT GLU (test code = 9395465325) 183 mg/dL 70-110 H Lab Interpretation (test cod e = 84426-6) Abnormal [facility] GLUCOSE (AUTOMATED)2023-07-10 15:48:03* Test Item Value Reference Range Interpretation Comme nts POCT GLU (test code = 8845986897) 198 mg/dL 70-110 H Lab Interpretation (test cod e = 31853-0) Abnormal [facility] GLUCOSE (AUTOMATED)2023-07-10 14:48:34* Test Item Value Reference Range Interpretation Comme nts POCT GLU (test code = [id number]) 137 mg/dL 70-110 H Lab Interpretation (test cod e = 59196-4) Abnormal [facility] GLUCOSE (AUTOMATED)2023-07-10 02:39:48* Test Item Value Reference Range Interpretation Comme nts POCT GLU (test code = 2984046443) 171 mg/dL 70-110 H Lab Interpretation (test cod e = 51412-5) Abnormal [facility] GLUCOSE (AUTOMATED)2023-07-09 22:10:33* Test Item Value Reference Range Interpretation Comme nts POCT GLU (test code = 2121488599) 236 mg/dL 70-110 H Lab Interpretation (test cod e = 36595-0) Abnormal [facility] GLUCOSE (AUTOMATED)2023-07-09 17:50:47* Test Item Value Reference Range Interpretation Comme nts POCT GLU (test code = 1689490963) 135 mg/dL 70-110 H Lab Interpretation (test cod e = 41653-0) [facility] 14:04:10* Test Item Value Reference Range Interpretation Comme nts POCT GLU (test code = 8934194980) 104 mg/dL 70-110 Lab Interpretation (test cod e = 73134-1) Normal [facility] Metabolic Panel (NA, K, CL, CO2, GLUCOSE, BUN, CREATININE, CA)2023-07-09 11:50:09* Test Item Value Reference Range Interpretation Comme nts NA (test code = 3928770571) 137 mmol/L 135-145 K (test code = 4328642447) 3.9 mmol/L 3.5-5.0 CL (test code = 0221822513) 109 mmol/L 98-108 H CO2 TOTAL (test code = 5683194321) 22 mmol/L 23-31 L AGAP (test code = 0650420188) 6 2-16 BUN (test code = 5565141088) 22 mg/dL 7-23 GLUCOSE (test code = 0127630940) 95 mg/dL 70-110 CREATININE (test code = 1997296399) 0.72 mg/dL 0.60-1.25 CALCIUM (test code = 1202913949) 8.3 mg/dL 8.6-10.6 L eGFR (test code = 90753-1) 105.9 mL/min/1.73m2 CKD-EPI eGFR (2020). Assuming creatinine has been stable day-to-day for at least three months, the eGFR indicates Category G1 (>= 90 mL/min/1.73 m2) Lab Interpretation (test code = 22415-3) [facility]normal [facility]2024-[facility] 11:50:09* Test Item Value Reference Range Interpretation Comme nts MAGNESIUM (test code = 5084956773) 1.9 mg/dL 1.7-2.4 Lab Interpretation (test cod e = 51175-2) Normal [facility] with Idxq3706-29-99 10:47:23* Test Item Value Reference Range Interpretation Comme nts WBC (test code = 6690-2) 9.56 4.20-10.70 RBC (test code = 789-8) 5.41 4.26-5.52 HGB (test code = 718-7) 15.5 g/dL 12.2-16.4 HCT (test code = 4544-3) 45.4 % 38.4-49.3 MCV (test code = 787-2) 83.9 fL 81.7-95.6 MCH (test code = 785-6) 28.7 pg 26.1-32.7 MCHC (test code = 786-4) 34.1 g/dL 31.2-35.0 RDW-SD (test code = 47461-2) 40.0 fL 38.5-51.6 RDW-CV (test code = 788-0) 13.2 % 12.1-15.4 PLT (test code = 777-3) 228 150-328 MPV (test code = 89669-7) 10.4 fL 9.8-13.0 NRBC/100 WBC (test code = 7412793032) 0.0 0.0-10.0 NRBC x10^3 (test code = 3704163149) See_Comment [Automated me ssage] The system which generated this result transmitted reference range: 10*3/?L. The reference range was not used to interpret this result as normal/abnormal. GRAN MAT (NEUT) % (test code = 770-8) 66.8 % IMM GRAN % (test code = 2715149603) 0.40 % LYMPH % (test code = 736-9) 20.1 % MONO % (test code = 5905-5) 10.0 % EOS % (test code = 713-8) 2.1 % BASO % (test code = 706-2) 0.6 % GRAN MAT x10^3(ANC) (test code = 6764105016) 6.38 10*3/uL 1.99-6.95 IMM GRAN x10^3 (test code = 2803301419) 0.04 10*3/uL 0.00-0.06 LYMPH x10^3 (test code = 731-0) 1.92 10*3/uL 1.09-3.23 MONO x10^3 (test code = 742-7) 0.96 10*3/uL 0.36-1.02 EOS x10^3 (test code = 711-2) 0.20 10*3/uL 0.06-0.53 BASO x10^3 (test code = 704-7) 0.06 10*3/uL 0.01-0.09 [facility] GLUCOSE (AUTOMATED)2023-07-08 23:56:34* Test Item Value Reference Range Interpretation Comme nts POCT GLU (test code = 5408247057) 124 mg/dL 70-110 H Lab Interpretation (test cod e = 97577-1) Abnormal [facility] GLUCOSE (AUTOMATED)2023-07-08 17:31:52* Test Item Value Reference Range Interpretation Comme nts POCT GLU (test code = 2854627591) 153 mg/dL 70-110 H Lab Interpretation (test cod e = 68275-6) Abnormal [facility] YEO5087-04-60 16:55:29EXAM: XR KUB HISTORY: 58 years old Male with NG tube TECHNIQUE: Supine radiographic view/s of the ab domen. [facility]: [facility] 14:02:45* Test Item Value Reference Range Interpretation Comme nts POCT GLU (test code = 1460578808) 132 mg/dL 70-110 H Lab Interpretation (test cod e = 11873-5) Abnormal [facility] Metabolic Panel (NA, K, CL, CO2, GLUCOSE, BUN, CREATININE, CA)2023-07-08 12:20:57* Test Item Value Reference Range Interpretation Comme nts NA (test code = 0076127038) 140 mmol/L 135-145 K (test code = 3124654547) 3.6 mmol/L 3.5-5.0 CL (test code = 7446872760) 110 mmol/L 98-108 H CO2 TOTAL (test code = 2331601427) 20 mmol/L 23-31 L AGAP (test code = 6880646708) 10 2-16 BUN (test code = 0393446843) 25 mg/dL 7-23 H GLUCOSE (test code = 0210485837) 121 mg/dL 70-110 H CREATININE (test code = 1369270876) 0.72 mg/dL 0.60-1.25 CALCIUM (test code = 9929817741) 8.1 mg/dL 8.6-10.6 L eGFR (test code = 49455-8) 105.9 mL/min/1.73m2 CKD-EPI eGFR (2020). Assuming creatinine has been stable day-to-day for at least three months, the eGFR indicates Category G1 (>= 90 mL/min/1.73 m2) Lab Interpretation (test code = 11281-4) Abnormal [facility]esium2024-01-30 12:20:57* Test Item Value Reference Range Interpretation Comme nts MAGNESIUM (test code = 4658958378) 1.9 mg/dL 1.7-2.4 Lab Interpretation (test cod e = 78837-6) Normal [facility] with Mdeg1327-81-02 11:31:46* Test Item Value Reference Range Interpretation Comme nts WBC (test code = 6690-2) 13.52 4.20-10.70 H RBC (test code = 789-8) 5.17 4.26-5.52 HGB (test code = 718-7) 14.7 g/dL 12.2-16.4 HCT (test code = 4544-3) 43.3 % 38.4-49.3 MCV (test code = 787-2) 83.8 fL 81.7-95.6 MCH (test code = 785-6) 28.4 pg 26.1-32.7 MCHC (test code = 786-4) 33.9 g/dL 31.2-35.0 RDW-SD (test code = 25852-7) 39.8 fL 38.5-51.6 RDW-CV (test code = 788-0) 13.0 % 12.1-15.4 PLT (test code = 777-3) 242 150-328 MPV (test code = 37014-2) 10.6 fL 9.8-13.0 NRBC/100 WBC (test code = 5088168603) 0.0 0.0-10.0 NRBC x10^3 (test code = 6125873797) See_Comment [Automated messa ge] The system which generated this result transmitted reference range: 10*3/?L. The reference range was not used to interpret this result as normal/abnormal. GRAN MAT (NEUT) % (test code = 770-8) 72.8 % IMM GRAN % (test code = 5850461150) 0.20 % LYMPH % (test code = 736-9) 16.5 % MONO % (test code = 5905-5) 9.2 % EOS % (test code = 713-8) 0.9 % BASO % (test code = 706-2) 0.4 % GRAN MAT x10^3(ANC) (test code = 7916332843) 9.84 10*3/uL 1.99-6.95 H IMM GRAN x10^3 (test code = 8890287117) 0.03 10*3/uL 0.00-0.06 LYMPH x10^3 (test code = 731-0) 2.23 10*3/uL 1.09-3.23 MONO x10^3 (test code = 742-7) 1.25 10*3/uL 0.36-1.02 H EOS x10^3 (test code = 711-2) 0.12 10*3/uL 0.06-0.53 BASO x10^3 (test code = 704-7) 0.05 10*3/uL 0.01-0.09 Lab Interpretation (test code = 87998-0) Abnormal [facility] GLUCOSE (AUTOMATED)2023-07-08 01:50:34* Test Item Value Reference Range Interpretation Comme nts POCT GLU (test code = 8128456989) 135 mg/dL 70-110 H Lab Interpretation (test cod e = 45435-9) Abnormal [facility] GLUCOSE (AUTOMATED)2023-07-07 22:18:56* Test Item Value Reference Range Interpretation Comme nts POCT GLU (test code = 1991965260) 187 mg/dL 70-110 H Lab Interpretation (test cod e = 02669-3) Abnormal [facility] GLUCOSE (AUTOMATED)2023-07-07 18:14:21* Test Item Value Reference Range Interpretation Comme nts POCT GLU (test code = 8304908668) 145 mg/dL 70-110 H Lab Interpretation (test cod e = 20198-8) [facility]normal [facility]2023-07-07 13:51:08* Test Item Value Reference Range Interpretation Comme nts POCT GLU (test code = 8390098824) 166 mg/dL 70-110 H Lab Interpretation (test cod e = 93359-2) Abnormal [facility] CampusCb with Xiiy9651-23-03 13:09:50* Test Item Value Reference Range Interpretation Comme nts WBC (test code = 6690-2) 17.38 4.20-10.70 H RBC (test code = 789-8) 4.49 4.26-5.52 HGB (test code = 718-7) 13.1 g/dL 12.2-16.4 HCT (test code = 4544-3) 38.6 % 38.4-49.3 MCV (test code = 787-2) 86.0 fL 81.7-95.6 MCH (test code = 785-6) 29.2 pg 26.1-32.7 MCHC (test code = 786-4) 33.9 g/dL 31.2-35.0 RDW-SD (test code = 99884-9) 40.2 fL 38.5-51.6 RDW-CV (test code = 788-0) 13.0 % 12.1-15.4 PLT (test code = 777-3) 202 150-328 MPV (test code = 20288-8) 11.0 fL 9.8-13.0 NRBC/100 WBC (test code = 1561173963) 0.0 0.0-10.0 NRBC x10^3 (test code = 6425192192) See_Comment [Automated message] The system which generated this result transmitted reference range: 10*3/?L. The reference range was not used to interpret this result as normal/abnormal. GRAN MAT (NEUT) % (test code = 770-8) 80.7 % IMM GRAN % (test code = 7666186681) 0.40 % LYMPH % (test code = 736-9) 11.4 % MONO % (test code = 5905-5) 7.3 % EOS % (test code = 713-8) 0.1 % BASO % (test code = 706-2) 0.1 % GRAN MAT x10^3(ANC) (test code = 9508933906) 14.03 10*3/uL 1.99-6.95 H IMM GRAN x10^3 (test code = 5139142212) 0.07 10*3/uL 0.00-0.06 H LYMPH x10^3 (test code = 731-0) 1.99 10*3/uL 1.09-3.23 MONO x10^3 (test code = 742-7) 1.27 10*3/uL 0.36-1.02 H EOS x10^3 (test code = 711-2) 0.06-0.53 L BASO x10^3 (test code = 704-7) 0.01-0.09 Lab Interpretation (test code = 50415-8) Abnormal [facility] GLUCOSE (AUTOMATED)2023-07-07 05:28:22* Test Item Value Reference Range Interpretation Comme nts POCT GLU (test code = 1974483470) 199 mg/dL 70-110 H Lab Interpretation (test cod e = 93425-0) Abnormal [facility] GLUCOSE (AUTOMATED)2023-07-07 01:53:12* Test Item Value Reference Range Interpretation Comme nts POCT GLU (test code = 4587495849) 271 mg/dL 70-110 H Lab Interpretation (test cod e = 65587-6) Abnormal [facility] GLUCOSE (AUTOMATED)2023-07-06 22:46:21* Test Item Value Reference Range Interpretation Comme nts POCT GLU (test code = 9778704033) 363 mg/dL 70-110 H Lab Interpretation (test cod e = 28928-3) Abnormal [facility] GLUCOSE (AUTOMATED)2023-07-06 18:12:35* Test Item Value Reference Range Interpretation Comme nts POCT GLU (test code = 2927649486) 379 mg/dL 70-110 H Lab Interpretation (test cod e = 43006-4) Abnormal [facility] ACUTE STROKE HEAD WO [id number] 15:00:48CT STROKE HEAD WO CONTRAST HISTORY: 58 years old Male with Neuro deficit, acute, stroke suspected COMPARISON: None. TECHNIQUE: A CT Head was performed without the administration ofintravenous contrast. FINDINGS:Patient motion limits assessment of the skull base and the posterior fossa. There is a large area of encephalomalacia involving the rightparieto-occipital lobe. There is ex vacuo dilatation of the occipital hornof the right lateral ventricle. The shaw-white matter differentiation isotherwise preserved. The cerebral sulci are normal in caliber and configuration. Nohydrocephalus, midlineshift or pathological extra-axial fluid collectionis present. The basal cisterns are unremarkable. The mastoid air cells and paranasal air sinuses are clear. The calvariumand central skull base are unremarkable.[facility] AC[facility] STROKE ANG[facility]GRAM KUFT2279-06-23 14:59:50CT STROKE ANGIOGRAM NECK, CT STROKE ANGIOGRAM HEAD HISTORY: 58 years old Male with Neuro deficit, acute, stroke suspected Rad:please obtain POCT creatinine prior to CTA head/neck TECHNIQUE: CTA of the head and neck with coronal, sagittal reformats, andMIPS reconstruction was performed. COMPARISON: ?CT Head performed same day. FINDINGS: CTA HEAD: The PICA origin is visualized bilaterally. The basilar artery is normal incaliber. A fenestration is suspected in the proximal basilar artery. Thesuperior cerebellar arteries are unremarkable. origin of the leftPCA. Small left posterior communicating artery. The posterior cerebralarteries are patent. The distal cervical and petrous internal carotid arteries are unremarkable.Atherosclerotic disease in the bilateral carotid siphons results qhzruh-vz-clyigzkn stenosis bilaterally. The anterior cerebral arteries areunremarkable. An anterior communicating artery is visualized. The middlecerebral arteries are unremarkable. CTA NECK: Standard 3vessel aortic arch. The ostia of the great neck vessels are freeof significant stenosis. The innominate and subclavian arteries are patent with normal course. The right common carotid artery, carotidbulb and cervical internal carotidartery are patent with atherosclerotic disease in the right carotid bulband proximal cervical ICA causing no more than mild stenosis. On the left, calcified and noncalcified plaque in the left carotid bulbextending into the proximal cervical ICA results in approximately 40-50%stenosis. The vertebral arteries originate normally from the subclavian arteries andare patent along their course. Hyperdense masses in the right parotid lobe measuring 2.4 x 1.8 cm in 1.5x1.4 cm respectively.[facility] NECK 2023-07-06 14:59:50CT STROKE ANGIOGRAM NECK, CT STROKE ANGIOGRAM HEAD HISTORY: 58 years old Male with Neuro deficit, acute, stroke suspected Rad:please obtain POCT creatinine prior to CTA head/neck TECHNIQUE: CTA of the head and neck with coronal, sagittal reformats, andMIPS reconstruction was performed. COMPARISON: ? CT Head performed same day. FINDINGS: CTA HEAD: The PICA origin is visualized bilaterally. The basilar artery is normal incaliber. A fenestration is suspected in the proximal basilar artery. Thesuperior cerebellar arteries are unremarkable. origin of the leftPCA. Small left posterior communicating artery. The posterior cerebralarteries are patent. The distal cervical and petrous internal carotid arteries are unremarkable.Atherosclerotic disease in the bilateral carotid siphons results tpqrnz-vx-gwgoertv stenosis bilaterally. The anterior cerebral arteries areunremarkable. An anterior communicating artery is visualized. The middlecerebral arteries are unremarkable. CTA NECK: Standard 3vessel aortic arch. The ostia of the great neck vessels are freeof significant stenosis. The innominate and subclavian arteries are patent with normal course. The right common carotid artery, carotidbulb and cervical internal carotidartery are patent with atherosclerotic disease in the right carotid bulband proximal cervical ICA causing no more than mild stenosis. On the left, calcified and noncalcified plaque in the left carotid bulbextending into the proximal cervical ICA results in approximately 40-50%stenosis. The vertebral arteries originate normally from the subclavian arteries andare patent along their course. Hyperdense masses in the right parotid lobe measuring 2.4 x 1.8 cm in 1.5x1.4 cm respectively.[facility] ([facility]) 2023-07-06 14:08:20* Test Item Value Reference Range Interpretation Comme [facility] POCT GLU (test code = 0606156676) 356 mg/dL 70-110 H Lab Interpretation (test cod e = 11712-0) Abnormal [facility] CampusGlycosylated Hemoglobin (A1C)2023-07-06 11:36:48* Test Item Value Reference Range Interpretation Comme [facility] HGB A1C (test code = 4548-4) 11.0 % 4.0-5.7 H OSCAR (test code = OSCAR) Reference RangesNormal: <5.7%Prediabetes: 5.7 - 6.4%Diabetes: > 6.5% Lab Interpretation (test code = 78182-3) Abnormal [facility] CampusAcetaminophen2024-01-28 10:46:03* Test Item Value Reference Range Interpretation Comme nts ACETAMINOP (test code = 0533721416) 10.0-30.0 L OSCAR (test code = OSCAR) Toxic: Greater robert n 200 ug/mL @ 4 hour post ingestion or greater than 50 ug/mL @ 12 hour post ingestion Lab Interpretation (test code = 97735-8) Abnormal [facility] CampusHepatic Function Panel (39238) (ALB,T.PRO,BILI T,BU/BC,ALT,AST,ALK PHOS)2023-07-06 10:43:01* Test Item Value Reference Range Interpretation Comme nts TOTAL BILI (test code = 2149873580) 0.7 mg/dL 0.1-1.1 BILI UNCON (test code = 1292485672) 0.4 mg/dL 0.1-1.1 BILI CONJ (test code = 5176664843) 0.0 mg/dL 0.0-0.3 T PROTEIN (test code = 9331339288) 8.7 g/dL 6.3-8.2 H ALBUMIN (test code = 6051580533) 4.5 g/dL 3.5-5.0 ALK PHOS (test code = 3782132820) 111 U/L 34-122 Slight hemolysis ALTv (test code = 1742-6) 54 U/L 5-50 H AST(SGOT) (test code = 3296007382) 51 U/L 13-40 H Slight hemolysis Lab Interpretation (test code = 10505-7) Abnormal [facility] CampusAC Panel 20 + Lactic Tosp8961-07-94 10:20:22* Test Item Value Reference Range Interpretation Comme nts PH (test code = 2) 7.36 7.35-7.45 PCO2 (test code = 5536485155) 44 35-45 PO2 (test code = 4746744565) 362 80-100 H HCO3 (test code = 7093999862) 24 22-26 BE (test code = 1833588148) -1.4 -3.0-3.0 THB (test code = 0945465074) 16.1 g/dL 13.5-18.0 %O2HB (test code = 0714014202) 95.0 % 94.0-99.0 %COHB ART (test code = 0134022774) 4.2 % 0.0-1.5 H %METHB ART (test code = 3718438256) 0.2 % 0.4-1.5 L VOL%O2 ART (test code = 4853295376) 22.4 % 15.0-23.0 NA (test code = 3880227739) 134 mmol/L 135-145 L K+ (test code = 8387872971) 4.9 mmol/L 3.5-5.0 AC CA IONZ (test code = 7615894949) 4.70 mg/dL 4.50-5.30 GLUCOSE (test code = 2529896005) 390 mg/dL 70-110 H LACTIC ACID (test code = 8884902898) 2.09 mmol/L 0.50-2.20 Lab Interpretation (test cod e = 44811-1) Abnormal [facility]OMEN 1 [id number] 09:30:59ORDERING PHYSICIAN: EDWARD BATISTA ONE VIEW ABDOMEN. DATE: 07/06/2023 3:29 AM CLINICAL INDICATIONS: NG tube placement COMPARISON: None. 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 No dilated loops of bowelare identified inthe upper abdomen. No free air is visualized below thediaphragm. A large amount of stool is present throughout the colonsuggesting constipation.[facility]XR CHEST 1 [id number] 09:29:03Study: Single view chest. Ordering Physician: HAZEL BATISTA Date: 07/06/2023 2:45 AM History:Intubated, respiratory failure. COMPARISON: None. Findings: Single frontal view chest demonstrates a normal heart size.Median sternotomy has been performed. A patchy airspace opacity in theperiphery of the right lung is identified. No pleural effusion orpneumothorax is present. The endotracheal tube terminates 3.5 cm above thecarina. The esophagogastric tube courses below the diaphragm.[facility] CampusAmmonia, [id number] 09:26:58* Test Item Value Reference Range Interpretation Comme nts AMMONIA (test code = 5320361829) 9-33 L Lab Interpretation (test cod e = 38985-6) Abnormal [facility] CampusSalicylate2024-01-28 09:09:18* Test Item Value Reference Range Interpretation Comme nts SALICYLATE (test code = 6419295139) 24 mg/L OSCAR (test code = OSCAR) Therapeutic Range: ? Analgesic and Antipyretic Use ? 20-100 mg/L ? ? Anti-Inflammatory Use ? 100-250 mg/L Toxic Range: ? Greater than 300 mg/L [facility] CampusIntubation2024-01-28 08:43:24Freddie Han MD ? ? 07/06/2023 ?2:45 AMIntubation Date/Time: 07/06/2023 2:43 AM Performed by: Freddie Han, MDAuthorized by: Edward Batista MD ?Consent: ?Consent obtained: ?Emergent situationUniversal protocol: ?Patient identity confirmed: ?Arm band and hospital-assigned identification numberPre- procedure details: ?Indications: altered consciousness ? ?Patient status: ?Altered mental status ?Look externally: facial hair ? ?Mouth opening - incisor distance: ?3 or more finger widths ?Hyoid-mental distance: 3 or more finger widths ? ?Hyoid-thyroid distance: 2 or more finger widths ? ?Mallampati score: ?II ?Obstruction: none ? ?Neck mobility: normal ? ?Pharmacologic strategy: RSI ? ?Sedation: versed. ?Paralytics: ?SuccinylcholineProcedure details: ?Preoxygenation: ?Bag valve mask ?CPR in progress: no ? ?Number of attempts: ?1Successful intubation attempt details: ?Intubationtechnique: video assisted ? ?Laryngoscope blade: ?Mac 3 ?Bougie used: no ? ?Grade view: I ? ?Tube size (mm): ?8.0 ?Tube type: ?Cuffed ?Tube visualized through cords: yes ?Placement assessment: ?ETT at teeth/gumline (cm): ?23 ?Tube secured with: ?ETT perry ?Breath sounds: ?Equal ?Placement verification: chest rise, colorimetric ETCO2 and direct visualization ?Post-procedure details: ?Procedure completion: ?Tolerated well, no immediate complicationsUnNorthwest [facility] Healthcare System [facility] Arterial Blood Gas.2023-07-06 07:45:10* Test Item Value Reference Range Interpretation Comme nts PH (test code = 2) 7.38 7.35-7.45 PCO2 (test code = 1197056341) 43 35-45 PO2 (test code = 3222010612) 67 80-100 L HCO3 (test code = 6878701695) 25 22-26 BE (test code = 6885119593) -0.7 -3.0-3.0 Lab Interpretation (test cod e = 30399-2) Abnormal [facility] CampusTroponin I - Code Dpvzdg6936-46-08 07:19:15* Test Item Value Reference Range Interpretation Comme nts TROPONIN I (test code = 4021952342) 0.012 ng/mL <=0.034 OSCAR (test code = OSCAR) Reference (Normal) Range (defined by the 99th percentile reference limit): <= 0.034 ng/mL Note: Cardiac troponin begins to rise 3-4 hours after the onset of ischemia. Repeat in 4-6 hours if the sample was drawn within 3-4 hours of the onset of the symptom and found normal. Diagnosis of myocardial injury is made with acute changes in cTn concentrations with at least one serial sample above the 99th percentile upper reference limit (URL), taken together with the patient's clinical presentation. Biotin has been reported to cause a negative bias, interpret results relative to patient's use of biotin. Lab Interpretation (test code = 43340-5) Normal [facility] CampusBasi Metabolic Panel (NA, K, CL, CO2, Glucose, BUN, Creatinine, CA) - Code Ahkdni1416-69-47 07:07:51* Test Item Value Reference Range Interpretation Comme nts NA (test code = 1281505307) 137 mmol/L 135-145 K (test code = 5169654507) 5.2 mmol/L 3.5-5.0 H Slight hemolysis CL (test code = 7480350111) 98 mmol/L 98-108 CO2 TOTAL (test code = 6370561670) 29 mmol/L 23-31 AGAP (test code = 8859551135) 10 2-16 BUN (test code = 7607962062) 23 mg/dL 7-23 Slight hemolysis GLUCOSE (test code = 7787778106) 353 mg/dL 70-110 H CREATININE (test code = 0276190117) 0.65 mg/dL 0.60-1.25 CALCIUM (test code = 3668744351) 10.1 mg/dL 8.6-10.6 eGFR (test code = 91918-5) 109.2 mL/min/1.73m2 CKD-EPI eGFR (2020). Assuming creatinine has been stable day-to-day for at least three months, the eGFR indicates Category G1 (>= 90 mL/min/1.73 m2) Lab Interpretation (test code = 19052-0) Abnormal [facility] CampusProthrombin Time / INR - Code Xcfxfd6935-77-53 07:05:16* Test Item Value Reference Range Interpretation Comme nts PROTIME PATIENT (test code = 5964-2) 10.5 10.1-12.6 INR (test code = 6301-6) 0.9 Normal INR <1.1; Warfarin Therapeutic range 2.0 to 3.0 or 2.5 to 3.5, depending upon the indications. Lab Interpretation (test code = 85372-7) Normal [facility] CampusaPTT - Code Xazgef5642-10-12 07:05:16* Test Item Value Reference Range Interpretation Comme nts APTT Patient (test code = 3173-2) 31 26-36 Lab Interpretation (test cod e = 30612-0) Normal [facility] CampusCBC without Diff - Code Shjoir7209-48-85 06:57:13* Test Item Value Reference Range Interpretation Comme nts WBC (test code = 6690-2) 8.45 4.20-10.70 RBC (test code = 789-8) 5.92 4.26-5.52 H HGB (test code = 718-7) 17.4 g/dL 12.2-16.4 H HCT (test code = 4544-3) 50.0 % 38.4-49.3 H MCH (test code = 785-6) 29.4 pg 26.1-32.7 MCV (test code = 787-2) 84.5 fL 81.7-95.6 MCHC (test code = 786-4) 34.8 g/dL 31.2-35.0 PLT (test code = 777-3) 251 150-328 MPV (test code = 14475-4) 10.7 fL 9.8-13.0 RDW-CV (test code = 788-0) 12.7 % 12.1-15.4 RDW-SD (test code = 82176-3) 38.9 fL 38.5-51.6 NRBC x10^3 (test code = [id number]) See_Comment [Automated messa ge] The system which generated this result transmitted reference range: 10*3/?L. The reference range was not used to interpret this result as normal/abnormal. NRBC/100 WBC (test code = 6772901747) 0.0 0.0-10.0 IPF % (test code = 8800472302) Lab Interpretation (test code = 72174-2) [facility] ([facility] >30 Days) - Code Stroke 2023-07-06 06:44:00* Test Item Value Reference Range Interpretation Comme [facility] POCT Glu (age>30days) (test code = 3342) 352 mg/dL 70-110 A Lab Interpretation (test cod e = 59874-5) [facility]normal [facility] [id number] 12:04:00* Test Item Value Reference Range Interpretation Comme [facility] GLUCOSE BEDSIDE TESTING (jenelle t code = GLUBED) 213 MG/DL 70-119 H BASIC METABOLIC [id number] 06:54:00* Test Item Value Reference Range Interpretation Comme [facility] SODIUM (test code = NA) 134.0 mmol/L 133-144 N POTASSIUM (test code = K) 4.2 mmol/L 3.5-5.1 N CHLORIDE (test code = CL) 103 mmol/L 95-105 N CARBON DIOXIDE (test code = CO2) 30 mmol/L 21-32 N ANION GAP (test code = GAP) 1.0 GAP calc 4.0-15.0 L GLUCOSE (test code = GLU) 169 MG/DL 70-110 H BLOOD UREA NITROGEN (test code = BUN) 15 MG/DL 7-18 N GLOMERULAR FILTRATION RATE (test code = GFR) 106 estGFR >60 The Glomerular Filtration Rate is a calculated parameterbased on serum Creatinine, patient age and sex. GFR valuesless than 60 mL/min/1.73 square meters are indicative ofChronic Kidney Disease. Values less than 15 mL/min/1.73square meters indicate Kidney failure. The calculation forGFR is based on the CKD-EPI (2020) calculation. This formulais race indifferent and is the recommended formula for GFRby the National Kidney Foundation for Adults.The GFR will not calculate if the sex is unknown or if thepatient's age is <18 years. CREATININE (test code = CREAT) 0.74 MG/DL 0.55-1.30 N Results may be depressed if patient is takingN-Acetylcysteine (NAC) and Metamizole (Dipyrone). CALCIUM (test code = CA) 8.6 MG/DL 8.5-10.1 N INDEX HEMOLYSIS (test code = HEMINDEX) 2 TRACE 10-25 MG Index/DL See_Comment [Automated message] The system which generated this result transmitted reference range: 1 NORMAL. The reference range was not used to interpret this result as normal/abnormal. INDEX ICTERIC (test code = ICTINDEX) 1 NORMAL <2 MG Index/DL See_Comment [Automated message] The system which generated this result transmitted reference range: 1 NORMAL. The reference range was not used to interpret this result as normal/abnormal. INDEX LIPEMIA (test code = LIPINDEX) 1 NORMAL <50 MG Index/DL See_Comment [Automated message] The system which generated this result transmitted reference range: 1 NORMAL. The reference range was not used to interpret this result as normal/abnormal. GLUCOSE BEDSIDE [id number] 06:06:00* Test Item Value Reference Range Interpretation Comme nts GLUCOSE BEDSIDE TESTING (test code = GLUBED) 180 MG/DL 70-119 H Notified Nu rse~ GLUCOSE BEDSIDE [id number] 20:39:00* Test Item Value Reference Range Interpretation Comme nts GLUCOSE BEDSIDE TESTING (test code = GLUBED) 224 MG/DL 70-119 H Notified Nu rse~ GLUCOSE BEDSIDE [id number] 16:11:00* Test Item Value Reference Range Interpretation Comme nts GLUCOSE BEDSIDE TESTING (jenelle t code = GLUBED) 209 MG/DL 70-119 H GLUCOSE BEDSIDE [id number] 12:52:00* Test Item Value Reference Range Interpretation Comme nts GLUCOSE BEDSIDE TESTING (jenelle t code = GLUBED) 215 MG/DL 70-119 H BASIC METABOLIC [id number] 06:03:00* Test Item Value Reference Range Interpretation Comme nts SODIUM (test code = NA) 136.0 mmol/L 133-144 N POTASSIUM (test code = K) 4.3 mmol/L 3.5-5.1 N CHLORIDE (test code = CL) 104 mmol/L 95-105 N CARBON DIOXIDE (test code = CO2) 26 mmol/L 21-32 N ANION GAP (test code = GAP) 6.0 GAP calc 4.0-15.0 N GLUCOSE (test code = GLU) 212 MG/DL 70-110 H BLOOD UREA NITROGEN (test code = BUN) 15 MG/DL 7-18 N GLOMERULAR FILTRATION RATE (test code = GFR) 105 estGFR >60 The Glomerular Filtration Rate is a calculated parameterbased on serum Creatinine, patient age and sex. GFR valuesless than 60 mL/min/1.73 square meters are indicative ofChronic Kidney Disease. Values less than 15 mL/min/1.73square meters indicate Kidney failure. The calculation forGFR is based on the CKD-EPI (2020) calculation. This formulais race indifferent and is the recommended formula for GFRby the National Kidney Foundation for Adults.The GFR will not calculate if the sex is unknown or if thepatient's age is <18 years. CREATININE (test code = CREAT) 0.76 MG/DL 0.55-1.30 N Results may be depressed if patient is takingN-Acetylcysteine (NAC) and Metamizole (Dipyrone). CALCIUM (test code = CA) 8.4 MG/DL 8.5-10.1 L INDEX HEMOLYSIS (test code = HEMINDEX) 4 SMALL 50-200 MG Index/DL See_Comment A [Automated message] The system which generated this result transmitted reference range: 1 NORMAL. The reference range was not used to interpret this result as normal/abnormal. INDEX ICTERIC (test code = ICTINDEX) 1 NORMAL <2 MG Index/DL See_Comment [Automated message] The system which generated this result transmitted reference range: 1 NORMAL. The reference range was not used to interpret this result as normal/abnormal. INDEX LIPEMIA (test code = LIPINDEX) 2 TRACE 50-100 MG Index/DL See_Comment [Automated message] The system which generated this result transmitted reference range: 1 NORMAL. The reference range was not used to interpret this result as normal/abnormal. GLUCOSE BEDSIDE [id number] 05:21:00* Test Item Value Reference Range Interpretation Comme nts GLUCOSE BEDSIDE TESTING (test code = GLUBED) 233 MG/DL 70-119 H Notified Nu rse~ GLUCOSE BEDSIDE [id number] 20:17:00* Test Item Value Reference Range Interpretation Comme nts GLUCOSE BEDSIDE TESTING (test code = GLUBED) 208 MG/DL 70-119 H Notified Nu rse~ GLUCOSE BEDSIDE [id number] 17:14:00* Test Item Value Reference Range Interpretation Comme nts GLUCOSE BEDSIDE TESTING (jenelle t code = GLUBED) 168 MG/DL 70-119 H GLUCOSE BEDSIDE [id number] 12:57:00* Test Item Value Reference Range Interpretation Comme nts GLUCOSE BEDSIDE TESTING (jenelle t code = GLUBED) 167 MG/DL 70-119 H BASIC METABOLIC [id number] 06:40:00* Test Item Value Reference Range Interpretation Comme nts SODIUM (test code = NA) 137.0 mmol/L 133-144 N POTASSIUM (test code = K) 4.0 mmol/L 3.5-5.1 N CHLORIDE (test code = CL) 104 mmol/L 95-105 N CARBON DIOXIDE (test code = CO2) 27 mmol/L 21-32 N ANION GAP (test code = GAP) 6.0 GAP calc 4.0-15.0 N GLUCOSE (test code = GLU) 184 MG/DL 70-110 H BLOOD UREA NITROGEN (test code = BUN) 13 MG/DL 7-18 N GLOMERULAR FILTRATION RATE (test code = GFR) 108 estGFR >60 The Glomerular Filtration Rate is a calculated parameterbased on serum Creatinine, patient age and sex. GFR valuesless than 60 mL/min/1.73 square meters are indicative ofChronic Kidney Disease. Values less than 15 mL/min/1.73square meters indicate Kidney failure. The calculation forGFR is based on the CKD-EPI (2020) calculation. This formulais race indifferent and is the recommended formula for GFRby the National Kidney Foundation for Adults.The GFR will not calculate if the sex is unknown or if thepatient's age is <18 years. CREATININE (test code = CREAT) 0.69 MG/DL 0.55-1.30 N Results may be depressed if patient is takingN-Acetylcysteine (NAC) and Metamizole (Dipyrone). CALCIUM (test code = CA) 8.6 MG/DL 8.5-10.1 N INDEX HEMOLYSIS (test code = HEMINDEX) 3 SMALL 25-50 MG Index/DL See_Comment [Automated message] The system which generated this result transmitted reference range: 1 NORMAL. The reference range was not used to interpret this result as normal/abnormal. INDEX ICTERIC (test code = ICTINDEX) 1 NORMAL <2 MG Index/DL See_Comment [Automated message] The system which generated this result transmitted reference range: 1 NORMAL. The reference range was not used to interpret this result as normal/abnormal. INDEX LIPEMIA (test code = LIPINDEX) 1 NORMAL <50 MG Index/DL See_Comment [Automated message] The system which generated this result transmitted reference range: 1 NORMAL. The reference range was not used to interpret this result as normal/abnormal. GLUCOSE BEDSIDE [id number] 04:29:00* Test Item Value Reference Range Interpretation Comme nts GLUCOSE BEDSIDE TESTING (test code = GLUBED) 180 MG/DL 70-119 H Notified Nu rse~ GLUCOSE BEDSIDE [id number] 19:43:00* Test Item Value Reference Range Interpretation Comme nts GLUCOSE BEDSIDE TESTING (test code = GLUBED) 220 MG/DL 70-119 H Notified Nu rse~ GLUCOSE BEDSIDE [id number] 16:39:00* Test Item Value Reference Range Interpretation Comme nts GLUCOSE BEDSIDE TESTING (jenelle t code = GLUBED) 202 MG/DL 70-119 H GLUCOSE BEDSIDE [id number] 11:24:00* Test Item Value Reference Range Interpretation Comme nts GLUCOSE BEDSIDE TESTING (jenelle t code = GLUBED) 194 MG/DL 70-119 H VANCOMYCIN [id number] 08:37:00* Test Item Value Reference Range Interpretation Comme nts VANCOMYCIN TROUGH (test code = VANCT) 18.1 mcG/ML 10-20 N --------- VANCOMYCIN TROUGH MONITORING GOALS:. Vancomycin trough should be obtained prior to 4th dose with Q 8H and Q 12H intervals.. Vancomycin trough should be obtained prior to 3rd dose with Q 24H and Q 48H intervals.. Vancomycin peaks are not recommended for routine monitoring. Indication Trough Goal (mcg/mL) Bacteremia, Endocarditis, 15-20 Osteomyelitis, MRSA pneumonia, healthcare acquired pneumonia, meningitis, cultures with KAREN of 2 for Vancomycin Cellulitis, empirical coverage 15 UTI, pediatric patient 15 Renal Function Note - Serum creatinine and blood urea nitrogen should be monitored at baseline and every 48H while on Vancomycin. BASIC METABOLIC [id number] 07:55:00* Test Item Value Reference Range Interpretation Comme nts SODIUM (test code = NA) 137.0 mmol/L 133-144 N POTASSIUM (test code = K) 4.1 mmol/L 3.5-5.1 N CHLORIDE (test code = CL) 106 mmol/L 95-105 H CARBON DIOXIDE (test code = CO2) 24 mmol/L 21-32 N ANION GAP (test code = GAP) 7.0 GAP calc 4.0-15.0 N GLUCOSE (test code = GLU) 219 MG/DL 70-110 H BLOOD UREA NITROGEN (test code = BUN) 10 MG/DL 7-18 N GLOMERULAR FILTRATION RATE (test code = GFR) 109 estGFR >60 The Glomerular Filtration Rate is a calculated parameterbased on serum Creatinine, patient age and sex. GFR valuesless than 60 mL/min/1.73 square meters are indicative ofChronic Kidney Disease. Values less than 15 mL/min/1.73square meters indicate Kidney failure. The calculation forGFR is based on the CKD-EPI (2020) calculation. This formulais race indifferent and is the recommended formula for GFRby the National Kidney Foundation for Adults.The GFR will not calculate if the sex is unknown or if thepatient's age is <18 years. CREATININE (test code = CREAT) 0.67 MG/DL 0.55-1.30 N Results may be depressed if patient is takingN-Acetylcysteine (NAC) and Metamizole (Dipyrone). CALCIUM (test code = CA) 8.4 MG/DL 8.5-10.1 L INDEX HEMOLYSIS (test code = HEMINDEX) 2 TRACE 10-25 MG Index/DL See_Comment [Automated message] The system which generated this result transmitted reference range: 1 NORMAL. The reference range was not used to interpret this result as normal/abnormal. INDEX ICTERIC (test code = ICTINDEX) 1 NORMAL <2 MG Index/DL See_Comment [Automated message] The system which generated this result transmitted reference range: 1 NORMAL. The reference range was not used to interpret this result as normal/abnormal. INDEX LIPEMIA (test code = LIPINDEX) 1 NORMAL <50 MG Index/DL See_Comment [Automated message] The system which generated this result transmitted reference range: 1 NORMAL. The reference range was not used to interpret this result as normal/abnormal. GLUCOSE BEDSIDE [id number] 05:11:00* Test Item Value Reference Range Interpretation Comme [facility] GLUCOSE BEDSIDE TESTING (test code = GLUBED) 224 MG/DL 70-119 H Notified Nu bandar~ GLUCOSE BEDSIDE [id number] 20:39:00* Test Item Value Reference Range Interpretation Comme [facility] GLUCOSE BEDSIDE TESTING (test code = GLUBED) 240 MG/DL 70-119 H Notified Nu bandar~ BASIC METABOLIC [id number] 19:40:00* Test Item Value Reference Range Interpretation Comme nts SODIUM (test code = NA) 136.0 mmol/L 133-144 N POTASSIUM (test code = K) 4.4 mmol/L 3.5-5.1 N CHLORIDE (test code = CL) 105 mmol/L 95-105 N CARBON DIOXIDE (test code = CO2) 26 mmol/L 21-32 N ANION GAP (test code = GAP) 5.0 GAP calc 4.0-15.0 N GLUCOSE (test code = GLU) 242 MG/DL 70-110 H BLOOD UREA NITROGEN (test code = BUN) 13 MG/DL 7-18 N GLOMERULAR FILTRATION RATE (test code = GFR) 105 estGFR >60 The Glomerular Filtration Rate is a calculated parameterbased on serum Creatinine, patient age and sex. GFR valuesless than 60 mL/min/1.73 square meters are indicative ofChronic Kidney Disease. Values less than 15 mL/min/1.73square meters indicate Kidney failure. The calculation forGFR is based on the CKD-EPI (202) calculation. This formulais race indifferent and is the recommended formula for GFRby the National Kidney Foundation for Adults.The GFR will not calculate if the sex is unknown or if thepatient's age is <18 years. CREATININE (test code = CREAT) 0.75 MG/DL 0.55-1.30 N Results may be depressed if patient is takingN-Acetylcysteine (NAC) and Metamizole (Dipyrone). CALCIUM (test code = CA) 7.9 MG/DL 8.5-10.1 L INDEX HEMOLYSIS (test code = HEMINDEX) 3 SMALL 25-50 MG Index/DL See_Comment [Automated message] The system which generated this result transmitted reference range: 1 NORMAL. The reference range was not used to interpret this result as normal/abnormal. INDEX ICTERIC (test code = ICTINDEX) 1 NORMAL <2 MG Index/DL See_Comment [Automated message] The system which generated this result transmitted reference range: 1 NORMAL. The reference range was not used to interpret this result as normal/abnormal. INDEX LIPEMIA (test code = LIPINDEX) 3 SMALL 100-200 MG Index/DL See_Comment [Automated message] The system which generated this result transmitted reference range: 1 NORMAL. The reference range was not used to interpret this result as normal/abnormal. GLUCOSE BEDSIDE [id number] 15:50:00* Test Item Value Reference Range Interpretation Comme nts GLUCOSE BEDSIDE TESTING (jenelle t code = GLUBED) 230 MG/DL 70-119 H GLUCOSE BEDSIDE [id number] 12:29:00* Test Item Value Reference Range Interpretation Comme nts GLUCOSE BEDSIDE TESTING (jenelle t code = GLUBED) 268 MG/DL 70-119 H - XR ABDOMEN 1 [id number] 10:44:00 [facility] 1965 Sex: M FAX: Kiel Gardiner MD [phone] [place]: St: [facility] FAX: Kiel Mc MD [phone] FAX: Elina Meademuvitaliy Nascimento MD [phone] Patient Name: BRIGHT SALAZAR Unit No: [id number] EXAMS: CPT CODE: [id number] XR ABDOMEN 1 V [id number] EXAM: - XR ABDOMEN 1 V INDICATION: vomiting. Technique: Frontal abdominal radiograph. Location: T18 Findings and impression: No bowel obstruction or ileus seen. Small amount of stool in the colon. at 1044 Reported and signed by: Juan Carlos Nowak MD CC: Kiel Fischer MD Dictated Date/Time: 04/21/2023 (1044)Technologist: Sherry Benton Transcribed Date/Time: 04/21/2023 (1044) By: [email or web address] Orig Print D/T: S: 04/21/2023 (7027) RUFINA Beyer NAME[facility] PHYS: Kiel Riley MD [address] [place] [address] [address]VD : 1965 AGE: 57 SEX: Jas[place], [place] [address] LOC: B.345 W PHONE #: [phone] EXAM DATE: 04/21/2023 STATUS: ADM IN FAX #: [phone] RAD NO: DC Dt: PAGE 1 Signed ReportGLUCOSE BEDSIDE [id number] 05:10:00* Test Item Value Reference Range Interpretation Comme nts GLUCOSE BEDSIDE TESTING (jenelle t code = GLUBED) 299 MG/DL 70-119 H GLUCOSE BEDSIDE [id number] 20:22:00* Test Item Value Reference Range Interpretation Comme nts GLUCOSE BEDSIDE TESTING (jenelle t code = GLUBED) 325 MG/DL 70-119 H GLUCOSE BEDSIDE [id number] 17:19:00* Test Item Value Reference Range Interpretation Comme nts GLUCOSE BEDSIDE TESTING (jenelle t code = GLUBED) 203 MG/DL 70-119 H SED [id number] 17:07:00* Test Item Value Reference Range Interpretation Comme nts SED RATE (test code = SEDW) 43 mm/hr 0-20 H GLYCOSYLATED HEMOGLOBIN (HA1C)2023-04-20 16:51:00* Test Item Value Reference Range Interpretation Comme nts GLYCOSYLATED HEMOGLOBIN (HA1C) (test code = GLYHGB) TEST NOT PERFORMED % IS-A1C 4.5-5.6 QNS, WILL REORDER ESTIMATED AVERAGE [id number] 16:51:00* Test Item Value Reference Range Interpretation Comme nts ESTIMATED AVERAGE GLUCOSE (test code = EAG) TEST NOT PERFORMED MG/DLest C REACTIVE [id number] 16:47:00* Test Item Value Reference Range Interpretation Comme nts C REACTIVE PROTEIN (test cod e = CRP) 1.190 MG/DL 0.000-0.900 H LIPID PROFILE (CORONARY RISK)2023-04-20 16:47:00* Test Item Value Reference Range Interpretation Comments TRIGLYCERIDES (test code = TRIG) 409 MG/DL 0-150 H HIGH RISK TRIGLY CERIDE 200-499 MG/DLReference intervals provided by The National CholesterolEducation Program Adult Treatment Panel III (NCEP-ATP III).Results may be depressed if patient is takingN-Acetylcysteine (NAC) and Metamizole (Dipyrone). CHOLESTEROL (test code = CHOL) 175 MG/DL 133-200 N CHOLESTEROL/HDL RATIO (test code = CHOLHDL) 7.60 RATIO See_Comment REFERENCE RANGE: MALE FEMALE 1/2 AVG RISK 3.43 3.27 AVG RISK 4.97 4.44 2X AVG RISK 9.55 7.05 3X AVG RISK 23.39 11.04 [Automated message] The system which generated this result transmitted reference range: 0-. The reference range was not used to interpret this result as normal/abnormal. HDL CHOLESTEROL (test code = HDL) 23 MG/DL 40-59 L Results maybe depressed if patient is taking Metamizole(Dipyrone). NON-HDL CHOLESTEROL (test code = NHDL) 152 mg/dL <130 H Patients with CHD or CHD risk LDL: <70 mg/dL nonHDL: <100 mg/dLPatients with 2+ risk factors LDL: <130 mg/dL nonHDL: <160 mg/dLPatients with 0-1 risk factors LDL: <160 mg/dL nonHDL: <190 mg/dL LIPOPROTEIN LDL (test code = LDL) 70 MG/DL 0-129 N LDL/HDL (test code = LDL/HDL) 3.04 Ratio See_Comment N LDL/HDL RISK ASSESSMENT1.47 One-half average3.22 Average5.03 Two times average6.14 Three times average [Automated message] The system which generated this result transmitted reference range: 1.48-3.22 Avg. The reference range was not used to interpret this result as normal/abnormal. INDEX HEMOLYSIS (test code = HEMINDEX) 2 TRACE 10-25 MG Index/DL See_Comment [Automated message] The system which generated this result transmitted reference range: 1 NORMAL. The reference range was not used to interpret this result as normal/abnormal. INDEX ICTERIC (test code = ICTINDEX) 1 NORMAL <2 MG Index/DL See_Comment [Automated message] The system which generated this result transmitted reference range: 1 NORMAL. The reference range was not used to interpret this result as normal/abnormal. INDEX LIPEMIA (test code = LIPINDEX) 1 NORMAL <50 MG Index/DL See_Comment [Automated message] The system which generated this result transmitted reference range: 1 NORMAL. The reference range was not used to interpret this result as normal/abnormal. GLUCOSE BEDSIDE [id number] 12:55:00* Test Item Value Reference Range Interpretation Comme nts GLUCOSE BEDSIDE TESTING (jenelle t code = GLUBED) 285 MG/DL 70-119 H LIPID PROFILE (CORONARY RISK)2023-04-20 06:10:00* Test Item Value Reference Range Interpretation Comments TRIGLYCERIDES (test code = TRIG) 457 MG/DL 0-150 H HIGH RISK TRIGLY CERIDE 200-499 MG/DLReference intervals provided by The National CholesterolEducation Program Adult Treatment Panel III (NCEP-ATP III).Results may be depressed if patient is takingN-Acetylcysteine (NAC) and Metamizole (Dipyrone). CHOLESTEROL (test code = CHOL) 181 MG/DL 133-200 N CHOLESTEROL/HDL RATIO (test code = CHOLHDL) 6.96 RATIO See_Comment REFERENCE RANGE: MALE FEMALE 1/2 AVG RISK 3.43 3.27 AVG RISK 4.97 4.44 2X AVG RISK 9.55 7.05 3X AVG RISK 23.39 11.04 [Automated message] The system which generated this result transmitted reference range: 0-. The reference range was not used to interpret this result as normal/abnormal. HDL CHOLESTEROL (test code = HDL) 26 MG/DL 40-59 L Results maybe depressed if patient is taking Metamizole(Dipyrone). NON-HDL CHOLESTEROL (test code = NHDL) 155 mg/dL <130 H Patients with CHD or CHD risk LDL: <70 mg/dL nonHDL: <100 mg/dLPatients with 2+ risk factors LDL: <130 mg/dL nonHDL: <160 mg/dLPatients with 0-1 risk factors LDL: <160 mg/dL nonHDL: <190 mg/dL LIPOPROTEIN LDL (test code = LDL) 64 MG/DL 0-129 N LDL/HDL (test code = LDL/HDL) 2.46 Ratio See_Comment N LDL/HDL RISK ASSESSMENT1.47 One-half average3.22 Average5.03 Two times average6.14 Three times average [Automated message] The system which generated this result transmitted reference range: 1.48-3.22 Avg. The reference range was not used to interpret this result as normal/abnormal. INDEX HEMOLYSIS (test code = HEMINDEX) 4 SMALL 50-200 MG Index/DL See_Comment A [Automated message] The system which generated this result transmitted reference range: 1 NORMAL. The reference range was not used to interpret this result as normal/abnormal. INDEX ICTERIC (test code = ICTINDEX) 1 NORMAL <2 MG Index/DL See_Comment [Automated message] The system which generated this result transmitted reference range: 1 NORMAL. The reference range was not used to interpret this result as normal/abnormal. INDEX LIPEMIA (test code = LIPINDEX) 1 NORMAL <50 MG Index/DL See_Comment [Automated message] The system which generated this result transmitted reference range: 1 NORMAL. The reference range was not used to interpret this result as normal/abnormal. GLUCOSE BEDSIDE [id number] 04:36:00* Test Item Value Reference Range Interpretation Comme nts GLUCOSE BEDSIDE TESTING (jenelle t code = GLUBED) 313 MG/DL 70-119 H LACTIC [id number] 21:03:00* Test Item Value Reference Range Interpretation Comme nts LACTIC ACID (test code = LACT) 1.1 mmol/L 0.4-2.0 N URINALYSIS [id number] 20:59:00* Test Item Value Reference Range Interpretation Comme nts UA COLOR (test code = COLU) YELLOW DESCRIPT YELLOW UA APPEARANCE (test code = APPU) CLEAR DESCRIPT CLEAR UA GLUCOSE DIPSTICK (test code = DGLUU) OVER >1000 (4+) mg/dL See_Comment A [Automated message] The system which generated this result transmitted reference range: 0 (NORMAL). The reference range was not used to interpret this result as normal/abnormal. UA BILIRUBIN DIPSTICK (test code = BILU) NEGATIVE (0.0) mg/dL See_Comment [Automated message] The system which generated this result transmitted reference range: (NEG) 0. The reference range was not used to interpret this result as normal/abnormal. UA KETONE DIPSTICK (test code = KETU) NEGATIVE (0) mg/dL See_Comment [Automated message] The system which generated this result transmitted reference range: (NEG) 0. The reference range was not used to interpret this result as normal/abnormal. UA SPECIFIC GRAVITY (test code = SGU) >1.050 SG 1.001-1.035 A UA BLOOD DIPSTICK (test code = ENID) NEGATIVE (0.00) mg/dL See_Comment [Automated message] The system which generated this result transmitted reference range: 0 (NEG). The reference range was not used to interpret this result as normal/abnormal. UA PH DIPSTICK (test code = MARSHALL) 6.0 pH UNITS 4.6-8.0 UA PROTEIN DIPSTICK (test code = PROU) 70 (1+) mg/dL See_Comment A [Automated message] The system which generated this result transmitted reference range: (NEG) <30. The reference range was not used to interpret this result as normal/abnormal. UA UROBILINIOGEN DIPSTICK (test code = URO) NORMAL (0) mg/Dl See_Comment [Automated message] The system which generated this result transmitted reference range: (NORM)<2.0. The reference range was not used to interpret this result as normal/abnormal. UA NITRITE DIPSTICK (test code = JULIO) NEGATIVE (0) SCREEN NEG UA LEUKOCYTE ESTERASE DIPSTICK (test code = LEUU) NEGATIVE (0) Leuk/mcL See_Comment [Automated message] The system which generated this result transmitted reference range: (NEG) 0. The reference range was not used to interpret this result as normal/abnormal. UA WBC (test code = WBCU) 0-3 #WBC/HPF 0-3 UA RBC (test code = RBCU) 0-3 #RBC/HPF 0-3 UA BACTERIA (test code = BACU) TRACE >0 /HPF NONE-FEW UA HYALINE CAST (test code = HYALU) 0-5 #/LPF 0-3 UA MUCUS (test code = MUCU) RARE /LPF NONE TROP-I HIGH [id number] 19:43:00* Test Item Value Reference Range Interpretation Comme nts TROP-I HIGH SENSITIVITY (test code = TROPIHS) 10 ng/L 0-45 N CAUTION: Units of the current test methodology (ng/L) differfrom the prior test methodology (ng/mL) by a factor of 1000. 99th Percentile Upper Reference Limit (URL): Females: 54 ng/LMales: 78 ng/L In order to distinguish acute elevations of high sensitivitytroponin from other clinical conditions, the FourthUniversal Definition of Myocardial Infarction stressesclinical assessment and the demonstration of a rise and/orfall in serial troponin results above the URL. Results from different methodologies should not be comparedto one another as quantitative results and URLs may vary bymethod. - CT ABD PELVIS [id number] 19:08:00 [facility] : 1965 Sex: M Patient Name: BRIGHT SALAZAR Unit No: [id number] EXAMS: CPT CODE: [id number] CT ABD PELVIS W/CONT 31378UDDCLGGPTCY: - CTA CHEST FOR PE, - CT ABD PELVIS W/CONT COMPARISON: CT scan of the abdomen and pelvis performed November 29, 2022 HISTORY: Chest pain, abdominal pain LOCATION CODE: C3 TECHNIQUE: CT of the Chest, Abdomen and Pelvis with intravenous contrast.. Oral contrast was not administered Image post processing with 3D volume rendering and multiplanar reconstruction were done at the advanced workstation. Axial contrast enhanced images of the chest, abdomen and pelvis were obtained and reviewed in soft tissue, bone and lung windows. Coronal and sagittal reconstructed images were also provided for review. All CT scans are performed using dose optimization techniques as appropriate to a performed exam including one or more of the following: ?Automated exposure control ?Adjustment of the mA and/or kV according to patient size ?Use of iterative reconstruction technique FINDINGS CHEST: The pulmonary arterial system is adequately opacified. No filling defects are seen within the opacified bran ches of the pulmonary arterial system. Atheromatous plaquing is present in the aorta and its branchvessels, without acute abnormality. Changes from prior median sternotomy and coronary bypass graft are also noted. Benign calcified granulomas are present in the right lung. A 3 mm subpleural noncalcified right upper lobe nodule is present on series 303 image 23 and there is also a 3 mm noncalcified right lower lobe nodule on series 303 image 36. The central airways are patent. There is no mediastinal, axillary or supraclavicular adenopathy. The chest wall and lower neck are normal in appearance. Degenerative changes are seen throughout the spine. FINDINGS ABDOMEN: Occasional benign granulomas are seen in the liver and spleen. The liver and spleen are otherwise normal. Gallbladder is absent. There is no biliary dilatation. Spleen, pancreas and adrenal glands are normal. A 3 mm nonobstructing stone is seen in the lower pole the right kidney and a 4 mm nonobstructing stone is seen in the lower pole the left kidney. They are unchanged. There is no free air or lymphadenopathy. A fluid collection seen in the right paracolic gutter inferior to the liver on the prior study has nearly completely resolved. There is a residual somewhat thick walled area measuring 1.9 x 1.2 cm (previously 7.4 x 3.5 cm). It likely represents scarring and walled off seroma. Adjacent postsurgical changes in the bowel are stable and no new bowel [facility] [place]in NAME: J[address] PHYS:Pooja Mulligan [place] [address] : 1965 AGE: 57 SEX: M LOC: B.ERS PHONE #: [phone] EXAM DATE: 04/19/2023 STATUS: REG ER FAX #: [phone] RAD #: D/C DT PAGE 1 Signed Report (CONTINUED) Patient Name: BRIGHT SALAZAR Unit No: [id number] EXAMS: CPT CODE: [id number] CT ABD PELVIS W/CONT 92254 (Continued) abnormalities are identified. Atheromatousplaquing is seen in the vessels. Degenerative disc changes are present throughout the spine. There is a irregular appearing low density collection in the subcutaneous tissues of the back just to the right of midline at approximately the L2 level. Area measures approximately 4.4 x 2.6 x 4.1 cm and the findings likely reflect underlying abscess. Adjacent mild stranding is also noted. FINDINGS PELVIS: The urinary bladder is normal. Prostate is prominent measuring 4.7 x 5.4 cm. Seminal vesicles appear normal. There is no free air, free fluid or lymphadenopathy. Atheromatous plaquing is present inthe vessels. No suspicious bowel lesions are identified. Osteoarthritic changes are present in thehips and sacroiliac joints. IMPRESSION: No evidence of pulmonary embolus or other acute vascular abnormality Enhancing fluid collection in the soft tissues of the mid back, likely an abscess Please see detailed findings above at 1908 Reported and signed by: Yee Perry MD CC: Pooja Crowe MD Dictated Date/Time: 04/19/2023 (1907) Technologist: Fito Reyes CTDI: DLP: Trnscrpt: 04/19/2023 (1907) [email or web address] [facility] Pepito NAME: DANDY [address] PHYS: Pooja [place], [place] [address] : 1965 AGE: 57 SEX: M LOC: SEAN PHONE #: [phone] EXAM DATE: 04/19/2023 STATUS: REG ER FAX #: [phone] RAD #: D/C DT PAGE 2 Signed Report Patient Name: BRIGHT SALAZAR Unit No: [id number] EXAMS: CPT CODE: [id number] CT ABD PELVIS W/CONT 93323 (Continued) Orig Print D/T:S: 04/19/2023 (1911) T[facility] Pepito NAME: BRIGHT SALAZAR [address] [place] [address] Bl PHYS: Pooja [place] [address] : 1965 AGE: 57 SEX: M LOC: BHarshadERS PHONE #: [phone] EXAM DATE: 04/19/2023 STATUS: REG ER FAX #: [phone] RAD #: D/C DT PAGE 3 S igned Report- CTA CHEST FOR [id number] 19:08:00 [facility] : 1965 Sex: M Patient Name: BRIGHT SALAZAR Unit No: [id number] EXAMS: CPT CODE: [id number] [place] [address] EXAMINATION: - CTA CHEST FOR PE, - CT ABD PELVIS W/CONT COMPARISON: CT scan of the abdomen and pelvis performed November 29, 2022 HISTORY: Chest pain, abdominal pain LOCATION CODE: C3 TECHNIQUE: CT of the Chest, Abdomen and Pelvis with intravenous contrast.. Oral contrast was not administered Image post proc essing with 3D volume rendering and multiplanar reconstruction were done at the advanced workstation. Axial contrast enhanced images of the chest, abdomen and pelvis were obtained and reviewed in soft tissue, bone and lung windows. Coronal and sagittal reconstructed images were also provided for review. All CT scans are performed using dose optimization techniques as appropriate to a performed exam including one or more of the following: ?Automated exposure control ?Adjustment of the mA and/or kV according to patient size ?Use of iterative reconstruction technique FINDINGS CHEST: The pulmonary arterial system is adequately opacified. No filling defects are seen within the opacified branches of the pulmonary arterial system. Atheromatous plaquing is present in the aorta and its branch vessels, without acute abnormality. Changes from prior median sternotomy and coronary bypass graft are also noted. Benign calcified granulomas are present in the right lung. A 3 mm subpleural noncalcifiedright upper lobe nodule is present on series 303 image 23 and there is also a 3 mm noncalcified right lower lobe nodule on series 303 image 36. The central airways are patent. There is no mediastinal, axillary or supraclavicular adenopathy. The chest wall and lower neck are normal in appearance. Degenerative changes are seen throughout the spine. FINDINGS ABDOMEN: Occasional benign granulomas areseen in the liver and spleen. The liver and spleen are otherwise normal. Gallbladder is absent. There is no biliary dilatation. Spleen, pancreas and adrenal glands are normal. A 3 mm nonobstructing stone is seen in the lower pole the right kidney and a 4 mm nonobstructing stone is seen in the lowerpole the left kidney. They are unchanged. There is no free air or lymphadenopathy. A fluid collection seen in the right paracolic gutter inferior to the liver on the prior study has nearly completelyresolved. There is a residual somewhat thick walled area measuring 1.9 x 1.2 cm (previously 7.4 x 3.5 cm). It likely represents scarring and walled off seroma. Adjacent postsurgical changes in the bowel are stable and no new bowel [facility] [place] NAME: BRIGHT SALAZAR [address] [place] [address] Blvd PHYS: Pooja Mulligan MD [place], [place] [address] : 1965 AGE: 57 SEX: M LOC: DeshaunHarshadLISA PHONE #: [phone] EXAM DATE: 04/19/2023 STATUS: REG ER FAX #: [phone] RAD #: D/C DT PAGE 1 Signed Report (CONTINUED) Patient Name: BRIGHT SALAZAR Unit No: [id number] EXAMS: CPT CODE: [id number] [place] [address] (Continued) abnormalities are identified. Atheromatous plaquing is seen in the vessels. Degenerative disc changes are present throughout the spine. There is a irregular appearing low density collection in the subcutaneous tissues of the back just to the right of midline at approximately the L2 level. Area measures approximately 4.4 x 2.6 x 4.1 cm and the findingslikely reflect underlying abscess. Adjacent mild stranding is also noted. FINDINGS PELVIS: The urinary bladder is normal. Prostate is prominent measuring 4.7 x 5.4 cm. Seminal vesicles appear normal. There is no free air, free fluid or lymphadenopathy. Atheromatous plaquing is present in the vessels. No suspicious bowel lesions are identified. Osteoarthritic changes are present in the hips and sacroiliac joints. IMPRESSION: No evidence of pulmonary embolus or other acute vascular abnormality Enhancing fluid collection in the soft tissues of the mid back, likely an abscess Please see detailed findings above at 1908 Reported and signed by: Yee Perry MD CC: Pooja Crowe MD Dictated Date/Time: 04/19/2023 (1907) Technologist: Fito Reyes CTDI: DLP: Trnscrpt: 04/19/2023 (1907) [email or web address] RUFINA Beyer NAME: J[address] PHYS: Pooja Mulligan MD [place] [address] : 1965 AGE: 57 SEX: M LOC: B.ERS PHONE #: [phone] EXAM DATE: 04/19/2023 STATUS: REG ER FAX #: [phone] RAD #: D/C DT PAGE 2 Signed Report Patient Name: BRIGHT SALAZAR Unit No: [id number] EXAMS: CPT CODE: [id number] [place] [address] (Continued) Orig Print D/T: S: 04/19/20 23 (1910) RUFINA Beyer NAME: BRIGHT SALAZAR [address] [place] [address] PHYS: Pooja Mulligan DMD [place], [place] [address] : 1965 AGE: 57 SEX: M LOC: B.ERS PHONE #: [phone] EXAM DATE: 04/19/2023 STATUS: REG ER FAX #: [phone] RAD #: D/C DT PAGE 3 Signed ReportD-DIMER 2023-04-19 18:15:00* Test Item Value Reference Range Interpretation Comme nts D-DIMER (test code = DDIMER) 1633 FEUng/mL 0-500 H THE CUT-OFF VALU E FOR EXCLUSION OF VTE = 500 FEU ng/mLNOTE: This method must be used with additional tests in theevaluation of VTE and should not be used to exclude VTE withpretest probability alone. TROP-I HIGH [id number] 18:12:00* Test Item Value Reference Range Interpretation Comme nts TROP-I HIGH SENSITIVITY (test code = TROPIHS) 10 ng/L 0-45 N CAUTION: Units of the current test methodology (ng/L) differfrom the prior test methodology (ng/mL) by a factor of 1000. 99th Percentile Upper Reference Limit (URL): Females: 54 ng/LMales: 78 ng/L In order to distinguish acute elevations of high sensitivitytroponin from other clinical conditions, the FourthUniversal Definition of Myocardial Infarction stressesclinical assessment and the demonstration of a rise and/orfall in serial troponin results above the URL. Results from different methodologies should not be comparedto one another as quantitative results and URLs may vary bymethod. BASIC METABOLIC [id number] 18:08:00* Test Item Value Reference Range Interpretation Comme nts SODIUM (test code = NA) 130.0 mmol/L 133-144 L POTASSIUM (test code = K) 4.1 mmol/L 3.5-5.1 N CHLORIDE (test code = CL) 97 mmol/L 95-105 N CARBON DIOXIDE (test code = CO2) 29 mmol/L 21-32 N ANION GAP (test code = GAP) 4.0 GAP calc 4.0-15.0 N GLUCOSE (test code = GLU) 305 MG/DL 70-110 H BLOOD UREA NITROGEN (test code = BUN) 19 MG/DL 7-18 H GLOMERULAR FILTRATION RATE (test code = GFR) 86 estGFR >60 The Glomerular Filtration Rate is a calculated parameterbased on serum Creatinine, patient age and sex. GFR valuesless than 60 mL/min/1.73 square meters are indicative ofChronic Kidney Disease. Values less than 15 mL/min/1.73square meters indicate Kidney failure. The calculation forGFR is based on the CKD-EPI (2020) calculation. This formulais race indifferent and is the recommended formula for GFRby the National Kidney Foundation for Adults.The GFR will not calculate if the sex is unknown or if thepatient's age is <18 years. CREATININE (test code = CREAT) 1.02 MG/DL 0.55-1.30 N Results may be depressed if patient is takingN-Acetylcysteine (NAC) and Metamizole (Dipyrone). CALCIUM (test code = CA) 9.6 MG/DL 8.5-10.1 N INDEX HEMOLYSIS (test code = HEMINDEX) 1 NORMAL <10 MG Index/DL See_Comment [Automated message] The system which generated this result transmitted reference range: 1 NORMAL. The reference range was not used to interpret this result as normal/abnormal. INDEX ICTERIC (test code = ICTINDEX) 1 NORMAL <2 MG Index/DL See_Comment [Automated message] The system which generated this result transmitted reference range: 1 NORMAL. The reference range was not used to interpret this result as normal/abnormal. INDEX LIPEMIA (test code = LIPINDEX) 1 NORMAL <50 MG Index/DL See_Comment [Automated message] The system which generated this result transmitted reference range: 1 NORMAL. The reference range was not used to interpret this result as normal/abnormal. HEPATIC FUNCTION [id number] 18:08:00* Test Item Value Reference Range Interpretation Comme nts TOTAL PROTEIN (test code = PROT) 9.9 G/DL 6.4-8.2 H ALBUMIN (test code = ALB) 3.4 G/DL 3.4-5.0 N BILIRUBIN TOTAL (test code = BILT) 0.25 MG/DL 0.00-1.00 N BILIRUBIN DIRECT (test code = BILD) < 0.10 MG/DL 0.00-0.30 N BILIRUBIN INDIRECT (test cod e = BILIND) 0.25 MG/DL 0.2-1.3 N SGOT/AST (test code = AST) 29 Unit/L 15-37 N SGPT/ALT (test code = ALT) 38 Unit/L 12-78 N ALKALINE PHOSPHATASE TOTAL ( test code = ALKP) 107 Unit/L 45-117 N [id number] 18:08:00* Test Item Value Reference Range Interpretation Comme nts LIPASE (test code = LIP) 581 Unit/L 114-286 H CBC W/O [id number] 17:53:00* Test Item Value Reference Range Interpretation Comme nts WHITE BLOOD CELL (test code = WBC) 12.8 K/mm3 4.1-12.1 H RED BLOOD CELL (test code = RBC) 6.03 M/mm3 3.8-5.5 H HEMOGLOBIN (test code = HGB) 17.3 G/DL 10.6-15.8 H HEMATOCRIT (test code = HCT) 50.1 % 31.8-47.4 H MEAN CELL VOLUME (test code = MCV) 83.1 fL 80.1-101.1 N MEAN CELL HGB (test code = MCH) 28.7 pg 25.3-35.3 N MEAN CELL HGB CONCETRATION ( test code = MCHC) 34.5 G/DL 32.7-35.1 N RED CELL DISTRIBUTION WIDTH (test code = RDW) 13.6 % 12.2-16.4 N PLATELET COUNT (test code = PLT) 360 K/mm3 155-337 H MEAN PLATELET VOLUME (test c ode = MPV) 9.8 fL 7.6-10.4 N POCT GLUCOSE (AUTOMATED)2023-02-18 16:49:51* Test Item Value Reference Range Interpretation Comme [facility] POCT GLU (test code = 8014665262) 243 mg/dL 70-110 H Lab Interpretation (test cod e = 66129-2) Abnormal [facility] GLUCOSE (AUTOMATED)2023-02-18 13:21:54* Test Item Value Reference Range Interpretation Comme [facility] POCT GLU (test code = 4313386117) 244 mg/dL 70-110 H Lab Interpretation (test cod e = 47910-2) [facility] 01:07:53* Test Item Value Reference Range Interpretation Comme nts POCT GLU (test code = 2467401583) 242 mg/dL 70-110 H Lab Interpretation (test cod e = 39647-4) [facility]23-02-17 21:48:19* Test Item Value Reference Range Interpretation Comme nts POCT GLU (test code = 1644812990) 217 mg/dL 70-110 H Lab Interpretation (test cod e = 56542-6) [facility]17 16:31:20* Test Item Value Reference Range Interpretation Comme nts POCT GLU (test code = 8819458203) 213 mg/dL 70-110 H Lab Interpretation (test cod e = 16837-6) Abnormal [facility] GLUCOSE (AUTOMATED)2023-02-17 12:44:38* Test Item Value Reference Range Interpretation Comme nts POCT GLU (test code = 2346924345) 235 mg/dL 70-110 H Lab Interpretation (test cod e = 19666-5) [facility]2023-02-17 00:58:49* Test Item Value Reference Range Interpretation Comme nts POCT GLU (test code = 2593994473) 260 mg/dL 70-110 H Lab Interpretation (test cod e = 14208-0) [facility]23-02-16 22:14:38* Test Item Value Reference Range Interpretation Comme nts POCT GLU (test code = 8972196909) 253 mg/dL 70-110 H Lab Interpretation (test cod e = 99797-1) [facility]2023-02-16 17:19:56* Test Item Value Reference Range Interpretation Comme nts POCT GLU (test code = 8283230661) 265 mg/dL 70-110 H Lab Interpretation (test cod e = 50412-6) [facility]2023-02-16 13:26:06* Test Item Value Reference Range Interpretation Comme nts POCT GLU (test code = 2447888119) 182 mg/dL 70-110 H Lab Interpretation (test cod e = 22495-4) Abnormal [facility] GLUCOSE (AUTOMATED)2023-02-16 00:46:04* Test Item Value Reference Range Interpretation Comme nts POCT GLU (test code = 7013127672) 222 mg/dL 70-110 H Lab Interpretation (test cod e = 09788-3) Abnormal [facility] GLUCOSE (AUTOMATED)2023-02-15 22:16:40* Test Item Value Reference Range Interpretation Comme nts POCT GLU (test code = 8990728301) 224 mg/dL 70-110 H Lab Interpretation (test cod e = 80575-8) Abnormal [facility] GLUCOSE (AUTOMATED)2023-02-15 16:59:40* Test Item Value Reference Range Interpretation Comme nts POCT GLU (test code = 2054579118) 241 mg/dL 70-110 H Lab Interpretation (test cod e = 45525-5) Abnormal [facility] GLUCOSE (AUTOMATED)2023-02-15 12:57:10* Test Item Value Reference Range Interpretation Comme nts POCT GLU (test code = 5013017347) 174 mg/dL 70-110 H Lab Interpretation (test cod e = 92926-7) Abnormal [facility] GLUCOSE (AUTOMATED)2023-02-15 01:09:42* Test Item Value Reference Range Interpretation Comme nts POCT GLU (test code = 8587994491) 217 mg/dL 70-110 H Lab Interpretation (test cod e = 22073-0) Abnormal [facility] GLUCOSE (AUTOMATED)2023-02-14 21:48:23* Test Item Value Reference Range Interpretation Comme nts POCT GLU (test code = 4536454808) 214 mg/dL 70-110 H Lab Interpretation (test cod e = 75641-8) Abnormal [facility] GLUCOSE (AUTOMATED)2023-02-14 17:17:49* Test Item Value Reference Range Interpretation Comme nts POCT GLU (test code = 8947694888) 199 mg/dL 70-110 H Lab Interpretation (test cod e = 60067-4) Abnormal [facility] GLUCOSE (AUTOMATED)2023-02-14 12:42:59* Test Item Value Reference Range Interpretation Comme [facility] POCT GLU (test code = 1469172689) 180 mg/dL 70-110 H Lab Interpretation (test cod e = 19718-7) [facility]normal [facility]A1C)2023-02-14 10:50:42* Test Item Value Reference Range Interpretation Comme [facility] HGB A1C (test code = 4548-4) 8.9 % 4.0-5.7 H OSCAR (test code = OSCAR) Reference RangesNormal: <5.7%Prediabetes: 5.7 - 6.4%Diabetes: > 6.5% Lab Interpretation (test code = 68611-3) Abnormal [facility] CampusSEDIMENTATION [id number] 06:43:57* Test Item Value Reference Range Interpretation Comme [facility] ESR (test code = 42027-5) 82 See_Comment H [Automated messa ge] The system which generated this result transmitted reference range: 0 - 10 mm/HR. The reference range was not used to interpret this result as normal/abnormal. Lab Interpretation (test code = 86880-8) Abnormal [facility] CampusCOMP. METABOLIC PANEL (09051)2023-02-13 20:30:18* Test Item Value Reference Range Interpretation Comme [facility] NA (test code = 8352234014) 137 mmol/L 135-145 K (test code = 8722172499) 4.3 mmol/L 3.5-5.0 CL (test code = 6841140137) 103 mmol/L 98-108 CO2 TOTAL (test code = 4501137886) 22 mmol/L 23-31 L AGAP (test code = 2134884658) 12 2-16 BUN (test code = 9528944879) 15 mg/dL 7-23 GLUCOSE (test code = 7164247961) 226 mg/dL 70-110 H CREATININE (test code = 2372689842) 0.75 mg/dL 0.60-1.25 TOTAL BILI (test code = 3560544870) 0.4 mg/dL 0.1-1.1 CALCIUM (test code = 3581686121) 9.7 mg/dL 8.6-10.6 T PROTEIN (test code = 8970517878) 9.1 g/dL 6.3-8.2 H ALBUMIN (test code = 0495461733) 4.4 g/dL 3.5-5.0 ALK PHOS (test code = 5668041648) 88 U/L 34-122 ALTv (test code = 1742-6) 29 U/L 5-50 AST(SGOT) (test code = 4741120940) 27 U/L 13-40 eGFR (test code = 7028977037) 107.3 mL/min/1.73m2 OSCAR (test code = OSCAR) Association of Glomerular Filtration Rate (GFR) and Staging of Kidney Disease* + --+ --+ ------+| GFR (mL/min/1.73 m2) ?| With Kidney Damage ?| ?Without Kidney Damage+ --------+ --------+ +| ?>90 ?| ?Stage one ?| ? Normal ?+ ---+ ---+ -------+| ?60-89 ?| ?Stage two ?| ? Decreased GFR ? + --+ --+ ------+| ?30-59 ?| ?Stage three ?| ? Stage three ? + --+ --+ ------+| ?15-29 ?| ?Stage four ? | ? Stage four ?+ ---+ ---+ -------+| ?<15 (or dialysis) ? ?| ?Stage five ? | ? Stage five ?+ ---+ ---+ -------+ *Each stage assumes the associated GFR level has been in effect for at least three months. ?Stages 1 to 5, with or without kidney disease, indicate chronic kidney disease. Notes: Determination of stages one and two (with eGFR >59mL/min/1.73 m2) requires estimation of kidney damage for at least three months as defined by structural or functional abnormalities of the kidney, manifested by either:Pathological abnormalities or Markers of kidney damage (including abnormalities in the composition of the blood or urine or abnormalities in imaging tests). Lab Interpretation (test code = 98824-6) Abnormal [facility] acute hospital WITH [id number] 20:17:55* Test Item Value Reference Range Interpretation Comme nts WBC (test code = 6690-2) 10.53 See_Comment [Automated Splice] The system which generated this result transmitted reference range: 4.20 - 10.70 10*3/?L. The reference range was not used to interpret this result as normal/abnormal. RBC (test code = 789-8) 6.03 See_Comment H [Automated messa ge] The system which generated this result transmitted reference range: 4.26 - 5.52 10*6/?L. The reference range was not used to interpret this result as normal/abnormal. HGB (test code = 718-7) 16.8 g/dL 12.2-16.4 H HCT (test code = 4544-3) 49.9 % 38.4-49.3 H MCV (test code = 787-2) 82.8 fL 81.7-95.6 MCH (test code = 785-6) 27.9 pg 26.1-32.7 MCHC (test code = 786-4) 33.7 g/dL 31.2-35.0 RDW-SD (test code = 45910-1) 42.3 fL 38.5-51.6 RDW-CV (test code = 788-0) 14.4 % 12.1-15.4 PLT (test code = 777-3) 174 See_Comment [Automated messa ge] The system which generated this result transmitted reference range: 150 - 328 10*3/?L. The reference range was not used to interpret this result as normal/abnormal. MPV (test code = 67456-6) 10.8 fL 9.8-13.0 NRBC/100 WBC (test code = 2966647452) 0.0 See_Comment [Automated [employer] ssage] The system which generated this result transmitted reference range: 0.0 - 10.0 /100 WBCs. The reference range was not used to interpret this result as normal/abnormal. NRBC x10^3 (test code = 6153352131) See_Comment [Automated messa ge] The system which generated this result transmitted reference range: 10*3/?L. The reference range was not used to interpret this result as normal/abnormal. GRAN MAT (NEUT) % (test code = 770-8) 69.2 % IMM GRAN % (test code = 1230512529) 0.30 % LYMPH % (test code = 736-9) 18.7 % MONO % (test code = 5905-5) 9.7 % EOS % (test code = 713-8) 1.2 % BASO % (test code = 706-2) 0.9 % GRAN MAT x10^3(ANC) (test code = 9261203437) 7.29 10*3/uL 1.99-6.95 H IMM GRAN x10^3 (test code = 1945089846) 0.03 10*3/uL 0.00-0.06 LYMPH x10^3 (test code = 731-0) 1.97 10*3/uL 1.09-3.23 MONO x10^3 (test code = 742-7) 1.02 10*3/uL 0.36-1.02 EOS x10^3 (test code = 711-2) 0.13 10*3/uL 0.06-0.53 BASO x10^3 (test code = 704-7) 0.09 10*3/uL 0.01-0.09 Lab Interpretation (test code = 41183-9) [facility]normal [facility] Whole [id number] 20:11:09* Test Item Value Reference Range Interpretation Comme nts LACTIC ACID (test code = 1494108164) 2.30 mmol/L 0.50-2.20 H Lab Interpretation (test cod e = 99736-5) Abnormal [facility] RFLX MICR CULT IF [id number] 07:51:00* Test Item Value Reference Range Interpretation Comme nts UA COLOR (test code = COLU) LIGHT-YELLOW DESCRIPT YELLOW UA APPEARANCE (test code = APPU) CLEAR DESCRIPT CLEAR UA GLUCOSE DIPSTICK (test code = DGLUU) NORMAL (0) mg/dL See_Comment [Automated message] The system which generated this result transmitted reference range: 0 (NORMAL). The reference range was not used to interpret this result as normal/abnormal. UA BILIRUBIN DIPSTICK (test code = BILU) NEGATIVE (0.0) mg/dL See_Comment [Automated message] The system which generated this result transmitted reference range: (NEG) 0. The reference range was not used to interpret this result as normal/abnormal. UA KETONE DIPSTICK (test code = KETU) NEGATIVE (0) mg/dL See_Comment [Automated message] The system which generated this result transmitted reference range: (NEG) 0. The reference range was not used to interpret this result as normal/abnormal. UA SPECIFIC GRAVITY (test code = SGU) 1.031 SG 1.001-1.035 UA BLOOD DIPSTICK (test code = ENID) NEGATIVE (0.00) mg/dL See_Comment [Automated message] The system which generated this result transmitted reference range: 0 (NEG). The reference range was not used to interpret this result as normal/abnormal. UA PH DIPSTICK (test code = MARSHALL) 6.0 pH UNITS 4.6-8.0 UA PROTEIN DIPSTICK (test code = PROU) 20 (TRACE) mg/dL See_Comment A [Automated message] The system which generated this result transmitted reference range: (NEG) <30. The reference range was not used to interpret this result as normal/abnormal. UA UROBILINIOGEN DIPSTICK (test code = URO) NORMAL (0) mg/Dl See_Comment [Automated message] The system which generated this result transmitted reference range: (NORM)<2.0. The reference range was not used to interpret this result as normal/abnormal. UA NITRITE DIPSTICK (test code = JULIO) NEGATIVE (0) SCREEN NEG UA LEUKOCYTE ESTERASE DIPSTICK (test code = LEUU) NEGATIVE (0) Leuk/mcL See_Comment [Automated message] The system which generated this result transmitted reference range: (NEG) 0. The reference range was not used to interpret this result as normal/abnormal. UA COMMENT (test code = COMU) SPECIMEN COMMENT NoteSPEC SpecComment UA WBC (test code = WBCU) 0-3 #WBC/HPF 0-3 UA RBC (test code = RBCU) 0-3 #RBC/HPF 0-3 UA CULTURE NEEDED? (test code = UACULT) Crit NOTmet CULT-N/A Criteria [facility] for culture: Flank PainUA DESCRIPTION: CLEAN CATCH- CT ABD PELVIS [id number] 06:48:00 [facility]: 1965 Sex: M Patient Name: BRIGHT SALAZAR Unit No: [id number] EXAMS: CPT CODE: [id number] CT ABD PELVIS W/CONT 28951 EXAMINATION: - CT ABD PELVIS W/CONT CLINICAL INDICATION: Male, 57 years old with abd pain TECHNIQUE: Thin section axial post-contrast contiguous images were obtained through the abdomen and pelvis followed by coronal and sagittal multiplanar reformations. One or more of the following dose reduction techniques were used: Automated exposure control, adjustment of the mA and/or kV according to patient size, and/or iterative reconstruction. Unless otherwise specified, incidental findings do not require dedicated imaging follow-up. COMPARISON: Abdomen and pelvic CT November 12, 2022 FINDINGS: Lower Chest: Patchy infiltrate is present involving the lingula and left lower lobe. There is very minimal right base atelectasis. Liver: Normal in size and contour. No focal lesions. Bile ducts are of normal caliber. Gallbladder: Surgically absent. Pancreas: Normal appearance without focal lesion. Spleen: Normal in size and contour. Adrenals: Normal configuration. Kidneys and ureters: Nonobstructing franklin ateral nephrolithiasis, renal contrast enhancement is appropriate. Bladder/Reproductive Organs: Normal in appearance. Unremarkable reproductive organs Bowel: Loops of bowel without wall thickening orobstruction. Patient has underwent appendectomy. In the retrocecal area of the appendix previously r esided, there is a spindle-shaped fluid collection favoring involving hematoma or possibly abscess extending 7.4 cm mediolaterally by 3.5 cm anteroposteriorly, 8.7 cm craniocaudally. There is no evidence of internal air. Lymph nodes: There are no pathologically enlarged abdominopelvic lymph nodes. Retroperitoneum: No mass or hemorrhage. Abdominal aorta and inferior vena cava are normal in course and caliber. Abdominal wall: No hernia or mass. [facility] Pepito NAME: BRIGHT SALAZAR [address] [place], [place] [address] PHYS: Pooja Mulligan MDNesquehoning, [place] [address] : 1965 AGE: 57 SEX: M LOC: B.ERS PHONE #: [phone] EXAM DATE: 11/29/2022 STATUS: REG ER FAX #: [phone] RAD #: D/C DT PAGE 1 Signed Report (CONTINUED) Patient Name: BRIGHT SALAZAR Unit No: [id number] EXAMS: CPT CODE: [id number] CT ABD PELVIS W/CONT 20922 (Continued) Bones: No acute abnormality or suspicious bony lesion. IMPRESSION: 1. Patchy infiltrate is identified involving the left lower lobeand lingula. 2. Ovoid fluid collection in the retrocecal region at this area of the appendectomy may represent an evolving hematoma however abscess remains diagnosis of exclusion. at 0648 Reported and signed by: Jose Tang MD CC: Pooja Crowe MD Dictated Date/Time: 11/29/2022 (0648) Technologist: RONNIE WANG CTDI: DLP: Trnscrpt: 11/29/2022 (0648) [id number] RUFINA Beyer NAME: J[address] PHYS: Pooja Mulligan MD [place] [address] : 1965 AGE: 57 SEX: M : WendyERS PHONE #: [phone] EXAM DATE: 11/29/2022 STATUS: REG ER FAX #: [phone] RAD #: D/C DT PAGE 2 Signed Report Patient Name: BRIGHT SALAZAR Unit No: [id number] EXAMS: CPT CODE: [id number] CT ABD PELVIS W/CONT 90960 (Continued) Orig Print D/T: S: 11/29/2022 (0652) RUFINA Beyer NAME: MEDINA MORALES[address] PHYS: Pooja Mulligan MD [place] [address] : 1965 AGE: 57 SEX: M LOC: B.ERS PHONE #: [phone] EXAM DATE: 11/29/2022STATUS: REG ER FAX #: [phone] RAD #: D/C DT PAGE 3 Signed ReportBASIC METABOLIC [id number] 06:47:00* Test Item Value Reference Range Interpretation Comme nts SODIUM (test code = NA) 137.0 mmol/L 133-144 N POTASSIUM (test code = K) 4.3 mmol/L 3.5-5.1 N CHLORIDE (test code = CL) 106 mmol/L 95-105 H CARBON DIOXIDE (test code = CO2) 24 mmol/L 21-32 N ANION GAP (test code = GAP) 7.0 GAP calc 4.0-15.0 N GLUCOSE (test code = GLU) 74 MG/DL 70-110 N BLOOD UREA NITROGEN (test code = BUN) 10 MG/DL 7-18 N GLOMERULAR FILTRATION RATE (test code = GFR) 107 estGFR >60 The Glomerular Filtration Rate is a calculated parameterbased on serum Creatinine, patient age and sex. GFR valuesless than 60 mL/min/1.73 square meters are indicative ofChronic Kidney Disease. Values less than 15 mL/min/1.73square meters indicate Kidney failure. The calculation forGFR is based on the CKD-EPI (2020) calculation. This formulais race indifferent and is the recommended formula for GFRby the National Kidney Foundation for Adults.The GFR will not calculate if the sex is unknown or if thepatient's age is <18 years. CREATININE (test code = CREAT) 0.70 MG/DL 0.55-1.30 N Results may be depressed if patient is takingN-Acetylcysteine (NAC) and Metamizole (Dipyrone). CALCIUM (test code = CA) 8.5 MG/DL 8.5-10.1 N INDEX HEMOLYSIS (test code = HEMINDEX) 4 SMALL 50-200 MG Index/DL See_Comment A [Automated message] The system which generated this result transmitted reference range: 1 NORMAL. The reference range was not used to interpret this result as normal/abnormal. INDEX ICTERIC (test code = ICTINDEX) 1 NORMAL <2 MG Index/DL See_Comment [Automated message] The system which generated this result transmitted reference range: 1 NORMAL. The reference range was not used to interpret this result as normal/abnormal. INDEX LIPEMIA (test code = LIPINDEX) 1 NORMAL <50 MG Index/DL See_Comment [Automated message] The system which generated this result transmitted reference range: 1 NORMAL. The reference range was not used to interpret this result as normal/abnormal. HEPATIC FUNCTION [id number] 06:47:00* Test Item Value Reference Range Interpretation Comme nts TOTAL PROTEIN (test code = PROT) 9.0 G/DL 6.4-8.2 H ALBUMIN (test code = ALB) 2.4 G/DL 3.4-5.0 L BILIRUBIN TOTAL (test code = BILT) 0.39 MG/DL 0.00-1.00 N BILIRUBIN DIRECT (test code = BILD) < 0.10 MG/DL 0.00-0.30 N BILIRUBIN INDIRECT (test cod e = BILIND) 0.39 MG/DL 0.2-1.3 N SGOT/AST (test code = AST) 38 Unit/L 15-37 H SGPT/ALT (test code = ALT) 21 Unit/L 12-78 N ALKALINE PHOSPHATASE TOTAL ( test code = ALKP) 114 Unit/L 45-117 N [id number] 06:47:00* Test Item Value Reference Range Interpretation Comme nts LIPASE (test code = LIP) 136 Unit/L 114-286 N CBC W/O [id number] 06:30:00* Test Item Value Reference Range Interpretation Comme nts WHITE BLOOD CELL (test code = WBC) 7.0 K/mm3 4.1-12.1 N RED BLOOD CELL (test code = RBC) 4.37 M/mm3 3.8-5.5 N HEMOGLOBIN (test code = HGB) 12.0 G/DL 10.6-15.8 N HEMATOCRIT (test code = HCT) 36.6 % 31.8-47.4 N MEAN CELL VOLUME (test code = MCV) 83.8 fL 80.1-101.1 N MEAN CELL HGB (test code = MCH) 27.5 pg 25.3-35.3 N MEAN CELL HGB CONCETRATION ( test code = MCHC) 32.8 G/DL 32.7-35.1 N RED CELL DISTRIBUTION WIDTH (test code = RDW) 13.5 % 12.2-16.4 N PLATELET COUNT (test code = PLT) 276 K/mm3 155-337 N MEAN PLATELET VOLUME (test c ode = MPV) 9.2 fL 7.6-10.4 N GLUCOSE BEDSIDE [id number] 20:58:00* Test Item Value Reference Range Interpretation Comme nts GLUCOSE BEDSIDE TESTING (jenelle t code = GLUBED) 197 MG/DL 70-119 H GLUCOSE BEDSIDE [id number] 17:30:00* Test Item Value Reference Range Interpretation Comme nts GLUCOSE BEDSIDE TESTING (jenelle t code = GLUBED) 175 MG/DL 70-119 H - XR CHEST 1 [id number] 12:35:00 [facility] : 1965 Sex: M FAX:Robbie Sellers MD [place]: C St: ADM FAX: Tariq Cavazos MD [phone] FAX: Jimmy Mark MD [phone] FAX: Ezra Cervantes MD [phone] Patient Name: BRIGHT SALAZAR Unit No: [id number] EXAMS: CPT CODE: [id number] XR CHEST 1 V 23002 STUDY: Chest radiograph HISTORY: Central line placement COMPARISON: 11/15/2022 TECHNIQUE: Frontal view of the chest. LOCATION: H19 FINDINGS: A left PICC line tip projectsover the distal SVC/cavoatrial junction. Again seen are poststernotomy changes. The cardiac silhouette is stable in size. There is increased pulmonary vascular congestion. There is no large pleural ef fusion or discernible pneumothorax. IMPRESSION: Increased pulmonary vascular congestion. Left PICC line placement. No pneumothorax. at 1235 Reported and signed by: Bright Beasley MD CC: Tariq Herrera MD; Ezra Austin MD Dictated Date/Time: 11/19/2022 (1235)Technologist: Rebeka Doran Transcribed Date/Time: 11/19/2022 (1235) By: [email or web address] Orig Print D/T: S: 11/19/2022 (9205) [facility] NAME: BRIGHT [facility] PHYS: Tariq Gross MD [address] [place], [place] [address] : 1965 AGE: 57 SEX: Jasmin BEYER, [place] [address] LOC: B.313 W PHONE #: [phone] EXAM DATE: 11/19/2022 STATUS: ADM IN FAX #: [phone] RAD NO: DC Dt: PAGE 1 Signed ReportGLUCOSE BEDSIDE [id number] 05:03:00* Test Item Value Reference Range Interpretation Comme nts GLUCOSE BEDSIDE TESTING (test code = GLUBED) 186 MG/DL 70-119 H Notified Nu rse~ GLUCOSE BEDSIDE [id number] 20:35:00* Test Item Value Reference Range Interpretation Comme nts GLUCOSE BEDSIDE TESTING (test code = GLUBED) 213 MG/DL 70-119 H Notified Nu rse~ GLUCOSE BEDSIDE [id number] 17:15:00* Test Item Value Reference Range Interpretation Comme nts GLUCOSE BEDSIDE TESTING (jenelle t code = GLUBED) 184 MG/DL 70-119 H GLUCOSE BEDSIDE [id number] 13:19:00* Test Item Value Reference Range Interpretation Comme nts GLUCOSE BEDSIDE TESTING (jenelle t code = GLUBED) 189 MG/DL 70-119 H GLUCOSE BEDSIDE [id number] 09:06:00* Test Item Value Reference Range Interpretation Comme nts GLUCOSE BEDSIDE TESTING (jenelle t code = GLUBED) 132 MG/DL 70-119 H GLUCOSE BEDSIDE [id number] 06:10:00* Test Item Value Reference Range Interpretation Comme nts GLUCOSE BEDSIDE TESTING (test code = GLUBED) 159 MG/DL 70-119 H Notified Nu rse~ GLUCOSE BEDSIDE [id number] 20:37:00* Test Item Value Reference Range Interpretation Comme nts GLUCOSE BEDSIDE TESTING (test code = GLUBED) 191 MG/DL 70-119 H Notified Nu rse~ GLUCOSE BEDSIDE [id number] 16:57:00* Test Item Value Reference Range Interpretation Comme nts GLUCOSE BEDSIDE TESTING (jenelle t code = GLUBED) 199 MG/DL 70-119 H GLUCOSE BEDSIDE [id number] 12:26:00* Test Item Value Reference Range Interpretation Comme nts GLUCOSE BEDSIDE TESTING (jenelle t code = GLUBED) 206 MG/DL 70-119 H GLUCOSE BEDSIDE [id number] 05:47:00* Test Item Value Reference Range Interpretation Comme nts GLUCOSE BEDSIDE TESTING (jenelle t code = GLUBED) 172 MG/DL 70-119 H COMPREHENSIVE METABOLIC [id number] 05:15:00* Test Item Value Reference Range Interpretation Comme nts SODIUM (test code = NA) 134.0 mmol/L 133-144 N POTASSIUM (test code = K) 4.3 mmol/L 3.5-5.1 N CHLORIDE (test code = CL) 101 mmol/L 95-105 N CARBON DIOXIDE (test code = CO2) 31 mmol/L 21-32 N ANION GAP (test code = GAP) 2.0 GAP calc 4.0-15.0 L GLUCOSE (test code = GLU) 170 MG/DL 70-110 H BLOOD UREA NITROGEN (test code = BUN) 14 MG/DL 7-18 N GLOMERULAR FILTRATION RATE (test code = GFR) 110 estGFR >60 The Glomerular Filtration Rate is a calculated parameterbased on serum Creatinine, patient age and sex. GFR valuesless than 60 mL/min/1.73 square meters are indicative ofChronic Kidney Disease. Values less than 15 mL/min/1.73square meters indicate Kidney failure. The calculation forGFR is based on the CKD-EPI (2020) calculation. This formulais race indifferent and is the recommended formula for GFRby the National Kidney Foundation for Adults.The GFR will not calculate if the sex is unknown or if thepatient's age is <18 years. CREATININE (test code = CREAT) 0.64 MG/DL 0.55-1.30 N Results may be depressed if patient is takingN-Acetylcystein e (NAC) and Metamizole (Dipyrone). TOTAL PROTEIN (test code = PROT) 7.4 G/DL 6.4-8.2 N ALBUMIN (test code = ALB) 2.1 G/DL 3.4-5.0 L ALBUMIN/GLOBULIN RATIO (test code = A/G) 0.4 RATIO 1.2-2.2 L CALCIUM (test code = CA) 8.9 MG/DL 8.5-10.1 N BILIRUBIN TOTAL (test code = BILT) 0.44 MG/DL 0.00-1.00 N BILIRUBIN DIRECT (test code = BILD) < 0.10 MG/DL 0.00-0.30 N BILIRUBIN INDIRECT (test code = BILIND) CALC ALYSSA MG/DL 0.2-1.3 L SGOT/AST (test code = AST) 23 Unit/L 15-37 N SGPT/ALT (test code = ALT) 19 Unit/L 12-78 N ALKALINE PHOSPHATASE TOTAL (test code = ALKP) 79 Unit/L 45-117 N INDEX HEMOLYSIS (test code = HEMINDEX) 1 NORMAL <10 MG Index/DL See_Comment [Automated message] The system which generated this result transmitted reference range: 1 NORMAL. The reference range was not used to interpret this result as normal/abnormal. INDEX ICTERIC (test code = ICTINDEX) 1 NORMAL <2 MG Index/DL See_Comment [Automated message] The system which generated this result transmitted reference range: 1 NORMAL. The reference range was not used to interpret this result as normal/abnormal. INDEX LIPEMIA (test code = LIPINDEX) 1 NORMAL <50 MG Index/DL See_Comment [Automated message] The system which generated this result transmitted reference range: 1 NORMAL. The reference range was not used to interpret this result as normal/abnormal. CBC W/AUTO [id number] 04:56:00* Test Item Value Reference Range Interpretation Comme nts WHITE BLOOD CELL (test code = WBC) 9.7 K/mm3 4.1-12.1 N RED BLOOD CELL (test code = RBC) 3.65 M/mm3 3.8-5.5 L HEMOGLOBIN (test code = HGB) 10.1 G/DL 10.6-15.8 L HEMATOCRIT (test code = HCT) 31.3 % 31.8-47.4 L MEAN CELL VOLUME (test code = MCV) 85.8 fL 80.1-101.1 N MEAN CELL HGB (test code = MCH) 27.7 pg 25.3-35.3 N MEAN CELL HGB CONCETRATION ( test code = MCHC) 32.3 G/DL 32.7-35.1 L RED CELL DISTRIBUTION WIDTH (test code = RDW) 14.0 % 12.2-16.4 N RED CELL DISTRIBUTION WIDTH (test code = RDW-SD) 43.4 fL 35.1-43.9 N PLATELET COUNT (test code = PLT) 415 K/mm3 155-337 H MEAN PLATELET VOLUME (test c ode = MPV) 9.2 fL 7.6-10.4 N GRANULOCYTE % (test code = GR%) 61.6 % 37.8-82.6 N IMMATURE GRANULOCYTE % (test code = IG%) 0.6 % 0.0-2.0 N LYMPHOCYTE % (test code = LY%) 23.8 % 14.1-45.4 N MONOCYTE % (test code = MO%) 9.5 % 2.5-11.7 N EOSINOPHIL % (test code = EO%) 3.5 % 0.0-6.2 N BASOPHIL % (test code = BA%) 1.0 % 0.0-2.6 N NUCLEATED RBC % (test code = NRBC%) 0.0 /100WBC% 0.0-1.0 N GRANULOCYTE # (test code = GR#) 5.99 k/mm3 2.0-13.7 N IMMATURE GRANULOCYTE # (test code = IG#) 0.06 K/mm3 0.00-0.03 H LYMPHOCYTE # (test code = LY#) 2.31 K/mm3 0.6-3.8 N MONOCYTE # (test code = MO#) 0.92 K/mm3 0.11-0.59 H EOSINOPHIL # (test code = EO#) 0.34 K/mm3 0.0-0.4 N BASOPHIL # (test code = BA#) 0.10 K/mm3 0.0-0.1 N NUCLEATED RBC # (test code = NRBC#) 0.00 K/mm3 0.00-0.05 N GLUCOSE BEDSIDE [id number] 20:36:00* Test Item Value Reference Range Interpretation Comme nts GLUCOSE BEDSIDE TESTING (jenelle t code = GLUBED) 217 MG/DL 70-119 H GLUCOSE BEDSIDE [id number] 16:39:00* Test Item Value Reference Range Interpretation Comme nts GLUCOSE BEDSIDE TESTING (jenelle t code = GLUBED) 208 MG/DL 70-119 H GLUCOSE BEDSIDE [id number] 12:10:00* Test Item Value Reference Range Interpretation Comme nts GLUCOSE BEDSIDE TESTING (jenelle t code = GLUBED) 191 MG/DL 70-119 H COMPREHENSIVE METABOLIC [id number] 05:10:00* Test Item Value Reference Range Interpretation Comme nts SODIUM (test code = NA) 137.0 mmol/L 133-144 N POTASSIUM (test code = K) 3.9 mmol/L 3.5-5.1 N CHLORIDE (test code = CL) 102 mmol/L 95-105 N CARBON DIOXIDE (test code = CO2) 31 mmol/L 21-32 N ANION GAP (test code = GAP) 4.0 GAP calc 4.0-15.0 N GLUCOSE (test code = GLU) 109 MG/DL 70-110 N BLOOD UREA NITROGEN (test code = BUN) 10 MG/DL 7-18 N GLOMERULAR FILTRATION RATE (test code = GFR) 114 estGFR >60 The Glomerular Filtration Rate is a calculated parameterbased on serum Creatinine, patient age and sex. GFR valuesless than 60 mL/min/1.73 square meters are indicative ofChronic Kidney Disease. Values less than 15 mL/min/1.73square meters indicate Kidney failure. The calculation forGFR is based on the CKD-EPI (2020) calculation. This formulais race indifferent and is the recommended formula for GFRby the National Kidney Foundation for Adults.The GFR will not calculate if the sex is unknown or if thepatient's age is <18 years. CREATININE (test code = CREAT) 0.57 MG/DL 0.55-1.30 N Results may be depressed if patient is takingN-Acetylcystein e (NAC) and Metamizole (Dipyrone). TOTAL PROTEIN (test code = PROT) 7.6 G/DL 6.4-8.2 N ALBUMIN (test code = ALB) 2.0 G/DL 3.4-5.0 L ALBUMIN/GLOBULIN RATIO (test code = A/G) 0.4 RATIO 1.2-2.2 L CALCIUM (test code = CA) 8.7 MG/DL 8.5-10.1 N BILIRUBIN TOTAL (test code = BILT) 0.22 MG/DL 0.00-1.00 N BILIRUBIN DIRECT (test code = BILD) < 0.10 MG/DL 0.00-0.30 N BILIRUBIN INDIRECT (test code = BILIND) CALC ALYSSA MG/DL 0.2-1.3 L SGOT/AST (test code = AST) 19 Unit/L 15-37 N SGPT/ALT (test code = ALT) 19 Unit/L 12-78 N ALKALINE PHOSPHATASE TOTAL (test code = ALKP) 79 Unit/L 45-117 N INDEX HEMOLYSIS (test code = HEMINDEX) 1 NORMAL <10 MG Index/DL See_Comment [Automated message] The system which generated this result transmitted reference range: 1 NORMAL. The reference range was not used to interpret this result as normal/abnormal. INDEX ICTERIC (test code = ICTINDEX) 1 NORMAL <2 MG Index/DL See_Comment [Automated message] The system which generated this result transmitted reference range: 1 NORMAL. The reference range was not used to interpret this result as normal/abnormal. INDEX LIPEMIA (test code = LIPINDEX) 1 NORMAL <50 MG Index/DL See_Comment [Automated message] The system which generated this result transmitted reference range: 1 NORMAL. The reference range was not used to interpret this result as normal/abnormal. CBC W/AUTO [id number] 04:48:00* Test Item Value Reference Range Interpretation Comme nts WHITE BLOOD CELL (test code = WBC) 10.2 K/mm3 4.1-12.1 N RED BLOOD CELL (test code = RBC) 3.39 M/mm3 3.8-5.5 L HEMOGLOBIN (test code = HGB) 9.4 G/DL 10.6-15.8 L HEMATOCRIT (test code = HCT) 29.0 % 31.8-47.4 L MEAN CELL VOLUME (test code = MCV) 85.5 fL 80.1-101.1 N MEAN CELL HGB (test code = MCH) 27.7 pg 25.3-35.3 N MEAN CELL HGB CONCETRATION ( test code = MCHC) 32.4 G/DL 32.7-35.1 L RED CELL DISTRIBUTION WIDTH (test code = RDW) 14.1 % 12.2-16.4 N RED CELL DISTRIBUTION WIDTH (test code = RDW-SD) 43.6 fL 35.1-43.9 N PLATELET COUNT (test code = PLT) 420 K/mm3 155-337 H MEAN PLATELET VOLUME (test c ode = MPV) 9.1 fL 7.6-10.4 N GRANULOCYTE % (test code = GR%) 60.3 % 37.8-82.6 N IMMATURE GRANULOCYTE % (test code = IG%) 0.7 % 0.0-2.0 N LYMPHOCYTE % (test code = LY%) 26.3 % 14.1-45.4 N MONOCYTE % (test code = MO%) 8.5 % 2.5-11.7 N EOSINOPHIL % (test code = EO%) 3.3 % 0.0-6.2 N BASOPHIL % (test code = BA%) 0.9 % 0.0-2.6 N NUCLEATED RBC % (test code = NRBC%) 0.0 /100WBC% 0.0-1.0 N GRANULOCYTE # (test code = GR#) 6.13 k/mm3 2.0-13.7 N IMMATURE GRANULOCYTE # (test code = IG#) 0.07 K/mm3 0.00-0.03 H LYMPHOCYTE # (test code = LY#) 2.68 K/mm3 0.6-3.8 N MONOCYTE # (test code = MO#) 0.87 K/mm3 0.11-0.59 H EOSINOPHIL # (test code = EO#) 0.34 K/mm3 0.0-0.4 N BASOPHIL # (test code = BA#) 0.09 K/mm3 0.0-0.1 N NUCLEATED RBC # (test code = NRBC#) 0.00 K/mm3 0.00-0.05 N GLUCOSE BEDSIDE [id number] 04:47:00* Test Item Value Reference Range Interpretation Comme nts GLUCOSE BEDSIDE TESTING (jenelle t code = GLUBED) 109 MG/DL 70-119 N GLUCOSE BEDSIDE [id number] 20:59:00* Test Item Value Reference Range Interpretation Comme nts GLUCOSE BEDSIDE TESTING (test code = GLUBED) 140 MG/DL 70-119 H Notified Nu rse~ GLUCOSE BEDSIDE [id number] 16:15:00* Test Item Value Reference Range Interpretation Comme nts GLUCOSE BEDSIDE TESTING (jenelle t code = GLUBED) 128 MG/DL 70-119 H - XR CHEST 1 [id number] 14:45:00 [facility] : 1965 Sex: M FAX:Jacquie Guzman MD [place]: C St: ADM FAX: Robbie Sellers MD FAX: Jimmy Mark MD [phone] FAX: Ezra Cervantes MD [phone] Patient Name: BRIGHT SALAZAR Unit No: [id number] EXAMS: CPT CODE: [id number] XR CHEST 1 V 61163 CHEST 1 VIEW: INDICATION: leukocytosis COMPARISON: There are no prior studies for comparison. Location: C3 A single portable AP view of the chest demonstrates stable postsurgical change of median sternotomy. The heart is enlarged a mildly elongated aorta. The lung perdue are grossly clear. No apparent pleural effusion nor pneumothorax. The visualized bony structures are unremarkable. IMPRESSION: 1. No acute cardiopulmonary changes noted. at 1445 Reported and signed by: Vinnie Mcdonnell MD CC: Jacquie De La Garza MD; Ezra Austin MD Dictated Date/Time: 11/15/2022 (1445)Technologist: Enma Washington Transcribed D ate/Time: 11/15/2022 (1445) By: [email or web address] Orig Print D/T: S: 11/15/2022 (6408) RUFINA Beyer NAME: BRIGHT SALAZAR [facility] PHYS: Jacquie Mo MD [address] [place] [address] BLVD : 1965 AGE: 57 SEX: J[place], [place] [address] LOC: B.313 W PHONE #: [phone] EXAM DATE: 11/15/2022 STATUS: ADM IN FAX #: [phone] RAD NO: DC Dt: PAGE 1 Signed ReportUA RFLX MICR CULT IF [id number] 13:38:00* Test Item Value Reference Range Interpretation Comme nts UA COLOR (test code = COLU) COLORLESS DESCRIPT YELLOW UA APPEARANCE (test code = APPU) CLEAR DESCRIPT CLEAR UA GLUCOSE DIPSTICK (test code = DGLUU) 30 (TRACE) mg/dL See_Comment A [Automated message] The system which generated this result transmitted reference range: 0 (NORMAL). The reference range was not used to interpret this result as normal/abnormal. UA BILIRUBIN DIPSTICK (test code = BILU) NEGATIVE (0.0) mg/dL See_Comment [Automated message] The system which generated this result transmitted reference range: (NEG) 0. The reference range was not used to interpret this result as normal/abnormal. UA KETONE DIPSTICK (test code = KETU) NEGATIVE (0) mg/dL See_Comment [Automated message] The system which generated this result transmitted reference range: (NEG) 0. The reference range was not used to interpret this result as normal/abnormal. UA SPECIFIC GRAVITY (test code = SGU) 1.012 SG 1.001-1.035 UA BLOOD DIPSTICK (test code = ENID) NEGATIVE (0.00) mg/dL See_Comment [Automated message] The system which generated this result transmitted reference range: 0 (NEG). The reference range was not used to interpret this result as normal/abnormal. UA PH DIPSTICK (test code = MARSHALL) 6.5 pH UNITS 4.6-8.0 UA PROTEIN DIPSTICK (test code = PROU) NEGATIVE (0) mg/dL See_Comment [Automated message] The system which generated this result transmitted reference range: (NEG) <30. The reference range was not used to interpret this result as normal/abnormal. UA UROBILINIOGEN DIPSTICK (test code = URO) NORMAL (0) mg/Dl See_Comment [Automated message] The system which generated this result transmitted reference range: (NORM)<2.0. The reference range was not used to interpret this result as normal/abnormal. UA NITRITE DIPSTICK (test code = JULIO) NEGATIVE (0) SCREEN NEG UA LEUKOCYTE ESTERASE DIPSTICK (test code = LEUU) NEGATIVE (0) Leuk/mcL See_Comment [Automated message] The system which generated this result transmitted reference range: (NEG) 0. The reference range was not used to interpret this result as normal/abnormal. UA COMMENT (test code = COMU) SPECIMEN COMMENT NoteSPEC SpecComment UA WBC (test code = WBCU) 0-3 #WBC/HPF 0-3 UA RBC (test code = RBCU) 0-3 #RBC/HPF 0-3 UA MUCUS (test code = MUCU) RARE /LPF NONE UA CULTURE NEEDED? (test code = UACULT) Crit NOTmet CULT-N/A Criteria [facility] Indication for culture: RiskForSepsis-no oth srcUA DESCRIPTION: CLEAN CATCH COMPREHENSIVE METABOLIC [id number] 13:27:00* Test Item Value Reference Range Interpretation Comme nts SODIUM (test code = NA) 137.0 mmol/L 133-144 N POTASSIUM (test code = K) 3.9 mmol/L 3.5-5.1 N CHLORIDE (test code = CL) 102 mmol/L 95-105 N CARBON DIOXIDE (test code = CO2) 30 mmol/L 21-32 N ANION GAP (test code = GAP) 5.0 GAP calc 4.0-15.0 N GLUCOSE (test code = GLU) 142 MG/DL 70-110 H BLOOD UREA NITROGEN (test code = BUN) 12 MG/DL 7-18 N GLOMERULAR FILTRATION RATE (test code = GFR) 108 estGFR >60 The Glomerular Filtration Rate is a calculated parameterbased on serum Creatinine, patient age and sex. GFR valuesless than 60 mL/min/1.73 square meters are indicative ofChronic Kidney Disease. Values less than 15 mL/min/1.73square meters indicate Kidney failure. The calculation forGFR is based on the CKD-EPI (202) calculation. This formulais race indifferent and is the recommended formula for GFRby the National Kidney Foundation for Adults.The GFR will not calculate if the sex is unknown or if thepatient's age is <18 years. CREATININE (test code = CREAT) 0.68 MG/DL 0.55-1.30 N Results may be depressed if patient is takingN-Acetylcystein e (NAC) and Metamizole (Dipyrone). TOTAL PROTEIN (test code = PROT) 8.4 G/DL 6.4-8.2 H ALBUMIN (test code = ALB) 2.1 G/DL 3.4-5.0 L ALBUMIN/GLOBULIN RATIO (test code = A/G) 0.3 RATIO 1.2-2.2 L CALCIUM (test code = CA) 8.5 MG/DL 8.5-10.1 N BILIRUBIN TOTAL (test code = BILT) 0.19 MG/DL 0.00-1.00 N BILIRUBIN DIRECT (test code = BILD) < 0.10 MG/DL 0.00-0.30 N BILIRUBIN INDIRECT (test code = BILIND) 0.19 MG/DL 0.2-1.3 L SGOT/AST (test code = AST) 17 Unit/L 15-37 N SGPT/ALT (test code = ALT) 20 Unit/L 12-78 N ALKALINE PHOSPHATASE TOTAL (test code = ALKP) 86 Unit/L 45-117 N INDEX HEMOLYSIS (test code = HEMINDEX) 1 NORMAL <10 MG Index/DL See_Comment [Automated message] The system which generated this result transmitted reference range: 1 NORMAL. The reference range was not used to interpret this result as normal/abnormal. INDEX ICTERIC (test code = ICTINDEX) 1 NORMAL <2 MG Index/DL See_Comment [Automated message] The system which generated this result transmitted reference range: 1 NORMAL. The reference range was not used to interpret this result as normal/abnormal. INDEX LIPEMIA (test code = LIPINDEX) 1 NORMAL <50 MG Index/DL See_Comment [Automated message] The system which generated this result transmitted reference range: 1 NORMAL. The reference range was not used to interpret this result as normal/abnormal. PT AND [id number] 13:20:00* Test Item Value Reference Range Interpretation Comments PT PATIENT (test code = PTP) 12.8 SECONDS 9.4-12.5 H INTERNATIONAL NORMAL RATIO (test code = INR) 1.14 INR Unit 0.88-1.13 H ----- ---------Therapeutic range for INR is dependent upon the situation.2.0-3.0 Prophylaxis / venous thromboembolism, Treatment of DVT, Acute myocardial infarction stroke prevention, Systemic embolism prevention in fibrillation3.0-4.5 AMI recurrence prevention, Systemic embolism prevention in prosthetic heart 3.0-5.4 AMI mortality reduction THROMBOPLASTIN TIME PARTIAL (test code = PTT) 28.6 SECONDS 24-37.7 N THERAPEUTIC RANG E FOR UNFRACTIONATED HEPARIN = 50.5-83.6 SEC This test is not recommended to monitor low molecularweight heparin or danaparoid. Order LMWH test COLLECTION THROUGH LINES THAT HAVE BEEN PREVIOUSLY FLUSHEDWITH HEPARIN SHOULD BE AVOIDED DUE TO POSSIBLE HEPARINCONTAMINATION ANTICOAGULANT THERAPY [Y,N]: NOLACTIC [id number] 13:11:00* Test Item Value Reference [place] Interpretation Comme nts LACTIC ACID (test code = LACT) 1.3 mmol/L 0.4-2.0 N GLUCOSE BEDSIDE [id number] 12:00:00* Test Item Value Reference [place] Interpretation Comme nts GLUCOSE BEDSIDE TESTING (jenelle t code = GLUBED) 132 MG/DL 70-119 H GLUCOSE BEDSIDE [id number] 06:36:00* Test Item Value Reference [place] Interpretation Comme nts GLUCOSE BEDSIDE TESTING (test code = GLUBED) 191 MG/DL 70-119 H Notified Nu bandar~ COMPREHENSIVE METABOLIC [id number] 05:31:00* Test Item Value Reference [place] Interpretation Comme nts SODIUM (test code = NA) 136.0 mmol/L 133-144 N POTASSIUM (test code = K) 4.6 mmol/L 3.5-5.1 N CHLORIDE (test code = CL) 99 mmol/L 95-105 N CARBON DIOXIDE (test code = CO2) 32 mmol/L 21-32 N ANION GAP (test code = GAP) 5.0 GAP calc 4.0-15.0 N GLUCOSE (test code = GLU) 186 MG/DL 70-110 H BLOOD UREA NITROGEN (test code = BUN) 15 MG/DL 7-18 N GLOMERULAR FILTRATION RATE (test code = GFR) 106 estGFR >60 The Glomerular Filtration Rate is a calculated parameterbased on serum Creatinine, patient age and sex. GFR valuesless than 60 mL/min/1.73 square meters are indicative ofChronic Kidney Disease. Values less than 15 mL/min/1.73square meters indicate Kidney failure. The calculation forGFR is based on the CKD-EPI (202) calculation. This formulais race indifferent and is the recommended formula for GFRby the National Kidney Foundation for Adults.The GFR will not calculate if the sex is unknown or if thepatient's age is <18 years. CREATININE (test code = CREAT) 0.73 MG/DL 0.55-1.30 N Results may be depressed if patient is takingN-Acetylcystein e (NAC) and Metamizole (Dipyrone). TOTAL PROTEIN (test code = PROT) 9.0 G/DL 6.4-8.2 H ALBUMIN (test code = ALB) 2.4 G/DL 3.4-5.0 L ALBUMIN/GLOBULIN RATIO (test code = A/G) 0.4 RATIO 1.2-2.2 L CALCIUM (test code = CA) 8.8 MG/DL 8.5-10.1 N BILIRUBIN TOTAL (test code = BILT) 0.23 MG/DL 0.00-1.00 N BILIRUBIN DIRECT (test code = BILD) < 0.10 MG/DL 0.00-0.30 N BILIRUBIN INDIRECT (test code = BILIND) CALC ALYSSA MG/DL 0.2-1.3 L SGOT/AST (test code = AST) 18 Unit/L 15-37 N SGPT/ALT (test code = ALT) 21 Unit/L 12-78 N ALKALINE PHOSPHATASE TOTAL (test code = ALKP) 95 Unit/L 45-117 N INDEX HEMOLYSIS (test code = HEMINDEX) 1 NORMAL <10 MG Index/DL See_Comment [Automated message] The system which generated this result transmitted reference range: 1 NORMAL. The reference range was not used to interpret this result as normal/abnormal. INDEX ICTERIC (test code = ICTINDEX) 1 NORMAL <2 MG Index/DL See_Comment [Automated message] The system which generated this result transmitted reference range: 1 NORMAL. The reference range was not used to interpret this result as normal/abnormal. INDEX LIPEMIA (test code = LIPINDEX) 1 NORMAL <50 MG Index/DL See_Comment [Automated message] The system which generated this result transmitted reference range: 1 NORMAL. The reference range was not used to interpret this result as normal/abnormal. CBC W/AUTO [id number] 05:05:00* Test Item Value Reference [place] Interpretation Comme nts WHITE BLOOD CELL (test code = WBC) 17.7 K/mm3 4.1-12.1 H RED BLOOD CELL (test code = RBC) 3.73 M/mm3 3.8-5.5 L HEMOGLOBIN (test code = HGB) 10.4 G/DL 10.6-15.8 L HEMATOCRIT (test code = HCT) 31.8 % 31.8-47.4 N MEAN CELL VOLUME (test code = MCV) 85.3 fL 80.1-101.1 N MEAN CELL HGB (test code = MCH) 27.9 pg 25.3-35.3 N MEAN CELL HGB CONCETRATION ( test code = MCHC) 32.7 G/DL 32.7-35.1 N RED CELL DISTRIBUTION WIDTH (test code = RDW) 14.1 % 12.2-16.4 N RED CELL DISTRIBUTION WIDTH (test code = RDW-SD) 43.6 fL 35.1-43.9 N PLATELET COUNT (test code = PLT) 479 K/mm3 155-337 H MEAN PLATELET VOLUME (test c ode = MPV) 9.4 fL 7.6-10.4 N GRANULOCYTE % (test code = GR%) 80.4 % 37.8-82.6 N IMMATURE GRANULOCYTE % (test code = IG%) 0.5 % 0.0-2.0 N LYMPHOCYTE % (test code = LY%) 13.6 % 14.1-45.4 L MONOCYTE % (test code = MO%) 4.3 % 2.5-11.7 N EOSINOPHIL % (test code = EO%) 0.8 % 0.0-6.2 N BASOPHIL % (test code = BA%) 0.4 % 0.0-2.6 N NUCLEATED RBC % (test code = NRBC%) 0.0 /100WBC% 0.0-1.0 N GRANULOCYTE # (test code = GR#) 14.23 k/mm3 2.0-13.7 H IMMATURE GRANULOCYTE # (test code = IG#) 0.08 K/mm3 0.00-0.03 H LYMPHOCYTE # (test code = LY#) 2.41 K/mm3 0.6-3.8 N MONOCYTE # (test code = MO#) 0.76 K/mm3 0.11-0.59 H EOSINOPHIL # (test code = EO#) 0.15 K/mm3 0.0-0.4 N BASOPHIL # (test code = BA#) 0.07 K/mm3 0.0-0.1 N NUCLEATED RBC # (test code = NRBC#) 0.00 K/mm3 0.00-0.05 N - XR ABDOMEN 1 [id number] 23:32:00 [facility] 1965 Sex: M FAX:Robbie Sellers MD [place]: C St: ADM FAX: Dolores Maher MD [phone] FAX: Jimmy Mark MD [phone] FAX: Ezra Cervantes MD [phone] Patient Name: BRIGHT SALAZAR Unit No: [id number] EXAMS: CPT CODE:[id number] XR ABDOMEN 1 V 22523 EXAM: Abdominal x-ray Dictation location: H10 INDICATION: Distention/vomiting COMPARISON: Abdominal x-ray on 10/19/2022 DISCUSSION: Frontal images of the abdomen is submitted. There is moderate to marked gaseous distention of the stomach. No evidence of small bowel or large bowel obstruction. Moderate retained stool seen within the colon. No gross evidence of intra-abdominal free air is seen. Right upper quadrant surgical clips suggest prior a cystectomy. IMPRESSION: 1. Moderate to marked gaseous distention of the stomach. The patient may benefit from nasogastric tube decompression. 2. Moderate retained stool within the colon. No evidence of small/large bowel o bstruction. 3. Findings suggest prior cholecystectomy. at 2332 Reported and signed by: Moises Bennett M.D. CC: Dolores Mcdonough; Ezra Austin MD Dictated Date/Time: 11/14/2022 (233)Technologist: ABDULLAHI KENDRICK ARRT (R) Transcribed Date/Time: 11/14/2022 (233) By: [email or web address] Orig Print D/T: S: 11/14/2022 (4235) RUFINA Pepito NAME: BRIGHT SALAZAR [facility] PHYS: Dolores Houser MD [address] [place] [address] BLVD : 1965 AGE: 57 SEX: FREDDIE JUNIOR [id number] LOC: B.313 W PHONE #: [phone] EXAM DATE: 11/14/2022 STATUS: ADM IN FAX #: [phone] RAD NO: DC Dt: PAGE 1 Signed ReportGLUCOSE BEDSIDE [id number] 20:57:00* Test Item Value Reference [place] Interpretation Comme nts GLUCOSE BEDSIDE TESTING (test code = GLUBED) 233 MG/DL 70-119 H Notified Nu eliseoe~ GLUCOSE BEDSIDE [id number] 16:52:00* Test Item Value Reference [place] Interpretation Comme nts GLUCOSE BEDSIDE TESTING (jenelle t code = GLUBED) 287 MG/DL 70-119 H VANCOMYCIN [id number] 15:25:00* Test Item Value Reference [place] Interpretation Comme nts VANCOMYCIN TROUGH (test code = VANCT) 14.2 mcG/ML 03-28 N --------- VANCOMYCIN TROUGH MONITORING GOALS:. Vancomycin trough should be obtained prior to 4th dose with Q 8H and Q 12H intervals.. Vancomycin trough should be obtained prior to 3rd dose with Q 24H and Q 48H intervals.. Vancomycin peaks are not recommended for routine monitoring. Indication Trough Goal (mcg/mL) Bacteremia, Endocarditis, 15-20 Osteomyelitis, MRSA pneumonia, healthcare acquired pneumonia, meningitis, cultures with KAREN of 2 for Vancomycin Cellulitis, empirical coverage 03-23 UTI, pediatric patient 10-15 Renal Function Note - Serum creatinine and blood urea nitrogen should be monitored at baseline and every 48H while on Vancomycin. GLUCOSE BEDSIDE [id number] 14:19:00* Test Item Value Reference [place] Interpretation Comme nts GLUCOSE BEDSIDE TESTING (jenelle t code = GLUBED) 294 MG/DL 70-119 H [id number] 10:35:00* Test Item Value Reference [place] Interpretation Comme nts SURGICAL (test code = SR) R UN DATE: 11/14/22 [facility] LAB PAGE 1 RUN TIME: 1035 Specimen Inquiry RUN USER: INTERFACE P ATIENT: BRIGHT SALAZAR LOC: BARBY U #: [id number] AGE/SX: 57/M ROOM: [facility] RE11/11/22[facility] DR: Jimmy Mark MD : 65 BED: W DIS: STATUS: ADM IN TLOC: SPEC #: [id number] RECD: 11/13/22 STATUS: KIM MOCK #: [id number] ANIYAH: 11/13/22 [facility] DR: Jimmy Mark MD ENTERED: 11/13/22 SP TYPE: SURGICAL OTHR DR: No Primary or Family Physician Self Referred Dave Garces MD, Carol L MD Dendy, Charlie F MD Joseph, Romeo J MD Omer, Shuab MD Ramineni,Ezra Alonso MD, MDORDERED: [id number], ANATOMIC SPEC COPIES TO: No Primary or Family Physician Self Referred Dave Garces MD [address] [facility] [place] [address] Jacquie De La Garza MD [address] [facility] [address] [place] [address] [email or web address] Ciro Ayers MD [address] [facility] [place] [address] [place] [address] [facility] [address] [place] [address] Kelvin Kern MD [address] [facility] [address] [place] [address] CONTINUED ON NEXT PAGE R UN DATE: 11/14/22 [facility] - LAB PAGE 2 RUN TIME: 1035 Specimen Inquiry RUN USER: INTERFACE S PEC #: [id number] PATIENT: BRIGHT SALAZAR #[id number] (Continued) COPIES TO: (Continued) [email or web address] Jimmy Mark MD [address] [place], [place] [address] [place] [address] Mark Laird MD [address] [facility] [address] [place] [address] Ezra Austin MD [address] [place] [address] HISTOLOGY: TISSUE ID BLK PCS MO LEV / PROCEDURE DISPOSITION ____ ___ ___ ___ ___ ANASTASIYA A 2 PROCEDURES: 28192 (11/13/22) TISSUES: A. APPENDIX - APPENDIX FINAL DIAGNOSIS APPENDIX, APPENDECTOMY: - Appendix with chronic inflammation (see comment) - Fibrous obliteration of appendix tip Comment:Sections show transmural infiltration by eosinophils. No neutrophilic acute inflammatoryinfiltration is seen. Eosinophilic infiltration of the muscularis layer in the appendix hasbeen suggested as an early event in acute appendicitis and may represent subacuteappendicitis. This can also be seen with infectious etiology. Please correlate clinically. GROSS DESCRIPTION Received in formalin and labeled with the patient's name, medical record number and"appendix" is a vermiform appendix (7 cm length x 0.7 cm diameter) with attached fattymesentery (1.5 cm thick). Neither a perforation or a fecalith is identified. Ink Code: Black - proximal resection margin. Section Code: A1, proximal resection and small business sales representative cross-sections; A2, bisecteddistal tip and small business sales representative cross-sections. CONTINUED ON NEXT PAGE R UN DATE: 11/14/22 [place] - LAB PAGE 3 RUN TIME: 1035 Specimen Inquiry RUN USER: INTERFACE S PEC #: [id number] PATIENT: BRIGHT SALAZAR #[id number] (Continued) GROSS DESCRIPTION (Continued) DWV/tb MICROSCOPIC DESCRIPTION Unless otherwise indicated, a microscopic examination has been performed on all specimensand the findings are incorporated in the final diagnosis. CLINICAL INFORMATION Appendicitis Signed SIGNATURE ON FILE Bridget 11/14/22 1035 END OF REPORT GLUCOSE BEDSIDE [id number] 10:02:00* Test Item Value Reference [place] Interpretation Comme nts GLUCOSE BEDSIDE TESTING (jenelle t code = GLUBED) 240 MG/DL 70-119 H BASIC METABOLIC [id number] 08:34:00* Test Item Value Reference [place] Interpretation Comme nts SODIUM (test code = NA) 136.0 mmol/L 133-144 N POTASSIUM (test code = K) 4.8 mmol/L 3.5-5.1 N CHLORIDE (test code = CL) 99 mmol/L 95-105 N CARBON DIOXIDE (test code = CO2) 31 mmol/L 21-32 N ANION GAP (test code = GAP) 6.0 GAP calc 4.0-15.0 N GLUCOSE (test code = GLU) 217 MG/DL 70-110 H BLOOD UREA NITROGEN (test code = BUN) 14 MG/DL 7-18 N GLOMERULAR FILTRATION RATE (test code = GFR) 103 estGFR >60 The Glomerular Filtration Rate is a calculated parameterbased on serum Creatinine, patient age and sex. GFR valuesless than 60 mL/min/1.73 square meters are indicative ofChronic Kidney Disease. Values less than 15 mL/min/1.73square meters indicate Kidney failure. The calculation forGFR is based on the CKD-EPI (2020) calculation. This formulais race indifferent and is the recommended formula for GFRby the National Kidney Foundation for Adults.The GFR will not calculate if the sex is unknown or if thepatient's age is <18 years. CREATININE (test code = CREAT) 0.80 MG/DL 0.55-1.30 N Results may be depressed if patient is takingN-Acetylcysteine (NAC) and Metamizole (Dipyrone). CALCIUM (test code = CA) 8.9 MG/DL 8.5-10.1 N INDEX HEMOLYSIS (test code = HEMINDEX) 1 NORMAL <10 MG Index/DL See_Comment [Automated message] The system which generated this result transmitted reference range: 1 NORMAL. The reference range was not used to interpret this result as normal/abnormal. INDEX ICTERIC (test code = ICTINDEX) 1 NORMAL <2 MG Index/DL See_Comment [Automated message] The system which generated this result transmitted reference range: 1 NORMAL. The reference range was not used to interpret this result as normal/abnormal. INDEX LIPEMIA (test code = LIPINDEX) 1 NORMAL <50 MG Index/DL See_Comment [Automated message] The system which generated this result transmitted reference range: 1 NORMAL. The reference range was not used to interpret this result as normal/abnormal. HEPATIC FUNCTION [id number] 08:34:00* Test Item Value Reference [place] Interpretation Comme nts TOTAL PROTEIN (test code = PROT) 8.7 G/DL 6.4-8.2 H ALBUMIN (test code = ALB) 2.2 G/DL 3.4-5.0 L BILIRUBIN TOTAL (test code = BILT) 0.19 MG/DL 0.00-1.00 N BILIRUBIN DIRECT (test code = BILD) < 0.10 MG/DL 0.00-0.30 N BILIRUBIN INDIRECT (test cod e = BILIND) CALC ALYSSA MG/DL 0.2-1.3 L SGOT/AST (test code = AST) 18 Unit/L 15-37 N SGPT/ALT (test code = ALT) 20 Unit/L 12-78 N ALKALINE PHOSPHATASE TOTAL (test code = ALKP) 97 Unit/L 45-117 N CBC W/AUTO [id number] 07:55:00* Test Item Value Reference [place] Interpretation Comme nts WHITE BLOOD CELL (test code = WBC) 12.5 K/mm3 4.1-12.1 H RED BLOOD CELL (test code = RBC) 3.88 M/mm3 3.8-5.5 N HEMOGLOBIN (test code = HGB) 11.1 G/DL 10.6-15.8 N HEMATOCRIT (test code = HCT) 33.4 % 31.8-47.4 N MEAN CELL VOLUME (test code = MCV) 86.1 fL 80.1-101.1 N MEAN CELL HGB (test code = MCH) 28.6 pg 25.3-35.3 N MEAN CELL HGB CONCETRATION ( test code = MCHC) 33.2 G/DL 32.7-35.1 N RED CELL DISTRIBUTION WIDTH (test code = RDW) 13.7 % 12.2-16.4 N RED CELL DISTRIBUTION WIDTH (test code = RDW-SD) 42.5 fL 35.1-43.9 N PLATELET COUNT (test code = PLT) 446 K/mm3 155-337 H MEAN PLATELET VOLUME (test c ode = MPV) 9.6 fL 7.6-10.4 N GRANULOCYTE % (test code = GR%) 79.3 % 37.8-82.6 N IMMATURE GRANULOCYTE % (test code = IG%) 0.3 % 0.0-2.0 N LYMPHOCYTE % (test code = LY%) 14.2 % 14.1-45.4 N MONOCYTE % (test code = MO%) 5.8 % 2.5-11.7 N EOSINOPHIL % (test code = EO%) 0.2 % 0.0-6.2 N BASOPHIL % (test code = BA%) 0.2 % 0.0-2.6 N NUCLEATED RBC % (test code = NRBC%) 0.0 /100WBC% 0.0-1.0 N GRANULOCYTE # (test code = GR#) 9.88 k/mm3 2.0-13.7 N IMMATURE GRANULOCYTE # (test code = IG#) 0.04 K/mm3 0.00-0.03 H LYMPHOCYTE # (test code = LY#) 1.77 K/mm3 0.6-3.8 N MONOCYTE # (test code = MO#) 0.72 K/mm3 0.11-0.59 H EOSINOPHIL # (test code = EO#) 0.02 K/mm3 0.0-0.4 N BASOPHIL # (test code = BA#) 0.02 K/mm3 0.0-0.1 N NUCLEATED RBC # (test code = NRBC#) 0.00 K/mm3 0.00-0.05 N GLUCOSE BEDSIDE [id number] 04:47:00* Test Item Value Reference [place] Interpretation Comme nts GLUCOSE BEDSIDE TESTING (test code = GLUBED) 226 MG/DL 70-119 H Notified Nu rse~ GLUCOSE BEDSIDE [id number] 00:37:00* Test Item Value Reference [place] Interpretation Comme nts GLUCOSE BEDSIDE TESTING (test code = GLUBED) 298 MG/DL 70-119 H Notified Nu rse~ GLUCOSE BEDSIDE [id number] 20:06:00* Test Item Value Reference [place] Interpretation Comme nts GLUCOSE BEDSIDE TESTING (jenelle t code = GLUBED) 327 MG/DL 70-119 H GLUCOSE BEDSIDE [id number] 17:51:00* Test Item Value Reference [place] Interpretation Comme nts GLUCOSE BEDSIDE TESTING (jenelle t code = GLUBED) 290 MG/DL 70-119 H GLUCOSE BEDSIDE [id number] 12:49:00* Test Item Value Reference [place] Interpretation Comme nts GLUCOSE BEDSIDE TESTING (jenelle t code = GLUBED) 152 MG/DL 70-119 H GLUCOSE BEDSIDE [id number] 09:31:00* Test Item Value Reference [place] Interpretation Comme nts GLUCOSE BEDSIDE TESTING (jenelle t code = GLUBED) 137 MG/DL 70-119 H CBC W/AUTO [id number] 06:15:00* Test Item Value Reference [place] Interpretation Comme nts WHITE BLOOD CELL (test code = WBC) 7.0 K/mm3 4.1-12.1 N RED BLOOD CELL (test code = RBC) 4.02 M/mm3 3.8-5.5 N HEMOGLOBIN (test code = HGB) 11.3 G/DL 10.6-15.8 N HEMATOCRIT (test code = HCT) 33.7 % 31.8-47.4 N MEAN CELL VOLUME (test code = MCV) 83.8 fL 80.1-101.1 N MEAN CELL HGB (test code = MCH) 28.1 pg 25.3-35.3 N MEAN CELL HGB CONCETRATION ( test code = MCHC) 33.5 G/DL 32.7-35.1 N RED CELL DISTRIBUTION WIDTH (test code = RDW) 13.9 % 12.2-16.4 N RED CELL DISTRIBUTION WIDTH (test code = RDW-SD) 42.4 fL 35.1-43.9 N PLATELET COUNT (test code = PLT) 381 K/mm3 155-337 H MEAN PLATELET VOLUME (test c ode = MPV) 9.0 fL 7.6-10.4 N GRANULOCYTE % (test code = GR%) 57.6 % 37.8-82.6 N IMMATURE GRANULOCYTE % (test code = IG%) 0.7 % 0.0-2.0 N LYMPHOCYTE % (test code = LY%) 26.6 % 14.1-45.4 N MONOCYTE % (test code = MO%) 9.0 % 2.5-11.7 N EOSINOPHIL % (test code = EO%) 5.1 % 0.0-6.2 N BASOPHIL % (test code = BA%) 1.0 % 0.0-2.6 N NUCLEATED RBC % (test code = NRBC%) 0.0 /100WBC% 0.0-1.0 N GRANULOCYTE # (test code = GR#) 4.03 k/mm3 2.0-13.7 N IMMATURE GRANULOCYTE # (test code = IG#) 0.05 K/mm3 0.00-0.03 H LYMPHOCYTE # (test code = LY#) 1.86 K/mm3 0.6-3.8 N MONOCYTE # (test code = MO#) 0.63 K/mm3 0.11-0.59 H EOSINOPHIL # (test code = EO#) 0.36 K/mm3 0.0-0.4 N BASOPHIL # (test code = BA#) 0.07 K/mm3 0.0-0.1 N NUCLEATED RBC # (test code = NRBC#) 0.00 K/mm3 0.00-0.05 N BASIC METABOLIC [id number] 06:07:00* Test Item Value Reference Range Interpretation Comme nts SODIUM (test code = NA) 136.0 mmol/L 133-144 N POTASSIUM (test code = K) 3.7 mmol/L 3.5-5.1 N CHLORIDE (test code = CL) 104 mmol/L 95-105 N CARBON DIOXIDE (test code = CO2) 30 mmol/L 21-32 N ANION GAP (test code = GAP) 2.0 GAP calc 4.0-15.0 L GLUCOSE (test code = GLU) 169 MG/DL 70-110 H BLOOD UREA NITROGEN (test code = BUN) 11 MG/DL 7-18 N GLOMERULAR FILTRATION RATE (test code = GFR) 113 estGFR >60 The Glomerular Filtration Rate is a calculated parameterbased on serum Creatinine, patient age and sex. GFR valuesless than 60 mL/min/1.73 square meters are indicative ofChronic Kidney Disease. Values less than 15 mL/min/1.73square meters indicate Kidney failure. The calculation forGFR is based on the CKD-EPI (202) calculation. This formulais race indifferent and is the recommended formula for GFRby the National Kidney Foundation for Adults.The GFR will not calculate if the sex is unknown or if thepatient's age is <18 years. CREATININE (test code = CREAT) 0.60 MG/DL 0.55-1.30 N Results may be depressed if patient is takingN-Acetylcysteine (NAC) and Metamizole (Dipyrone). CALCIUM (test code = CA) 8.1 MG/DL 8.5-10.1 L INDEX HEMOLYSIS (test code = HEMINDEX) 1 NORMAL <10 MG Index/DL See_Comment [Automated message] The system which generated this result transmitted reference range: 1 NORMAL. The reference range was not used to interpret this result as normal/abnormal. INDEX ICTERIC (test code = ICTINDEX) 1 NORMAL <2 MG Index/DL See_Comment [Automated message] The system which generated this result transmitted reference range: 1 NORMAL. The reference range was not used to interpret this result as normal/abnormal. INDEX LIPEMIA (test code = LIPINDEX) 1 NORMAL <50 MG Index/DL See_Comment [Automated message] The system which generated this result transmitted reference range: 1 NORMAL. The reference range was not used to interpret this result as normal/abnormal. - CT ABD PELVIS W/O [id number] 23:13:00 [facility] 1965 Sex: M Patient Name: BRIGHT SALAZAR Unit No: [id number] EXAMS: CPT CODE: [id number] CT ABD PELVIS W/O CONT 96370 EXAM: CT abdomen and pelvis without contrast Dictation location: H10 INDICATION: Right upper quadrant pain COMPARISON: CT abdomen and pelvis on 10/08/2022 TECHNIQUE: Axial images of the abdomen and pelvis were obtained without contrast. Unless otherwise specified, incidental findings do not require dedicated imaging follow-up. Coronal and sagittal reformatted images were performed. DISCUSSION: Lower thorax: Small left pleural effusion is noted. There is partial compressive atelectasis of the left lower lobe. A calcified granuloma is seen in the right lower lobe. Coronary artery calcifications are noted. Hepatobiliary: Unremarkable. No biliary ductal dilatation. Gallbladder: Surgically absent. Spleen: Calcified splenic granulomas are noted. Pancreas: Unremarkable. Kidneys: There are 3 calculi at the mid to lower right kidney, measuring 3 mm or less. A 4 mm calculus is seen at the lower pole of the left kidney. No hydronephrosis, ureteral calculus, or gross evidence of solid renal mass is seen. Adrenals: Unremarkable. Lymph nodes: No lymphadenopathy. Peritoneum/retroperitoneum: Nointra-abdominal free air or free fluid. Vessels: Moderate atherosclerotic calcification. No abdominal aortic aneurysm. Pelvic organs/bladder: Mild prostatomegaly is noted. The bladder is unremarkable. Bowel: Moderate retained stool seen within the colon. The appendix is retrocecal and measures up to 7.5 mm in diameter; the appendix previously measured up to 4.8 mm in diameter on 10/08/2022. No periappendiceal fat stranding is seen. Bones/soft tissues: No fracture or bony mass lesion. No hernia isseen. [facility] Pepito NAME: BRIGHT SALAZAR [facility] PHYS: Peg Fajardo [address] : 1965 AGE: 57 SEX: [place] [id number] LOC: B.ICU22 W PHONE #: [phone] EXAM DATE: 11/12/2022 STATUS: ADM IN FAX #: [phone] RAD #: D/C DT PAGE 1 Signed Report (CONTINUED) Patient Name: BRIGHT SALAZAR Unit No: [id number] EXAMS: CPT CODE: [id number] CT ABD PELVIS W/O CONT 69315 (Continued) IMPRESSION: 1. The appendix is retrocecal and measures up to 7.5 mm in diameter. Although no periappendiceal fat stranding is identified, the appendixpreviously measured 4.8 mm in diameter on 10/08/2022. This may reflect early acute appendicitis. No abscess or perforation is seen. 2. Additional findings include a small left pleural effusion, partialcompressive atelectasis of the left lower lobe, coronary artery calcifications, prior cholecystectomy, nonobstructive bilateral renal calculi, mild prostatomegaly, and moderate retained stool within the colon. One or more of the following dose reduction techniques were used: Automated exposure contr ol, adjustment of the mA and/or kV according to patient size, and/or utilization of iterative reconstruction technique. DLP: 673 mGy-cm CTDI: 11 mGy at 2313 Reported and signed by: Moises Bennett M.D. CC: Ezra Austin MD; Peg Kinsey NP Dictated Date/Time: 11/12/2022 (2312) Technologist: RONNIE WANG CTDI: DLP: Trnscrpt: 11/12/2022 (2312) [email or web address] RUFINA Beyer NAME: BRIGHT SALAZAR [facility] PHYS: Peg Fajardo NP [address] [place] [address] : 1965 AGE: 57 SEX: Jasmin [place], [place] [address] LOC: B.ICU22 W PHONE #: [phone] EXAM DATE: 11/12/2022 STATUS: ADM IN FAX #: [phone] RAD #: D/C DT PAGE 2 Signed Report Patient Name: BRIGHT SALAZAR Unit No: [id number] EXAMS: CPT CODE: [id number] CT ABD PELVIS W/O CONT 35770 (Continued) Orig Print D/T: S: 11/12/2022 (2315) RUFINA Beyer NAME: BRIGHT [facility] PHYS: Peg Fajardo NP [address] [place], [place] [address]VD : 1965 AGE: 57 SEX: [place] J[place] [address] LOC: WendyICU22 W PHONE #: [phone] EXAM DATE: 11/12/2022 STATUS: ADM IN FAX #: [phone] RAD #: D/C DT PAGE 3Signed Report- XR CHEST 1 V 2022-11-12 21:53:00 [facility] : 1965 Sex: M FAX:Robbie Sellers MD [place]: C St: ADM FAX: Jimmy Mark MD [phone] FAX: Ezra Cervantes MD [phone] FAX: Peg Kinsey NP Patient Name: BRIGHT SALAZAR Unit No: [id number] EXAMS: CPT CODE: [id number] XR CHEST 1 V 86926 EXAMINATION: - XR CHEST 1 V INDICATION: cvc placement COMPARISON: 11/10/2022 LOCATION: H96 FINDINGS/ IMPRESSION: Central catheter not seen despite indication. Scattered atelectasis/scarring with otherwise clear lungs. No visible pleural fluid or pneumothorax. Normal cardiac silhouette p oststernotomy. at 2152 Reported and signed by: Oneil Mancia MD CC: Ezra Austin MD; Peg Kinsey ETHICS INSTRUCTOR Dictated Date/Time: 11/12/2022 (2152)Technologist: Lala Mireles Transcribed Date/Time: 11/12/2022 (2152) By: [email or web address] Orig Print D/T: S: 11/12/2022 (2155) RUFINA Beyer NAME: BRIGHT SALAZAR [facility] PHYS: Peg Fajardo NP [address] [place] [address] BLVD : 1965 AGE: 57 SEX: Jasmin [place], [place] [id number] LOC: B.ICU22 W PHONE #: [phone] EXAM DATE: 11/12/2022 STATUS: ADM IN FAX #: [phone] RAD NO: DC Dt: PAGE 1 Signed ReportGLUCOSE BEDSIDE [id number] 17:16:00* Test Item Value Reference Range Interpretation Comme nts GLUCOSE BEDSIDE TESTING (jenelle t code = GLUBED) 199 MG/DL 70-119 H VANCOMYCIN [id number] 16:54:00* Test Item Value Reference Range Interpretation Comme nts VANCOMYCIN TROUGH (test code = VANCT) 12.1 mcG/ML 10-20 N --------- VANCOMYCIN TROUGH MONITORING GOALS:. Vancomycin trough should be obtained prior to 4th dose with Q 8H and Q 12H intervals.. Vancomycin trough should be obtained prior to 3rd dose with Q 24H and Q 48H intervals.. Vancomycin peaks are not recommended for routine monitoring. Indication Trough Goal (mcg/mL) Bacteremia, Endocarditis, 15-20 Osteomyelitis, MRSA pneumonia, healthcare acquired pneumonia, meningitis, cultures with KAREN of 2 for Vancomycin Cellulitis, empirical coverage 03-23 UTI, pediatric patient 03-23 Renal Function Note - Serum creatinine and blood urea nitrogen should be monitored at baseline and every 48H while on Vancomycin. GLUCOSE BEDSIDE [id number] 13:10:00* Test Item Value Reference Range Interpretation Comme [facility] GLUCOSE BEDSIDE TESTING (jenelle t code = GLUBED) 224 MG/DL 70-119 H GLUCOSE BEDSIDE [id number] 08:47:00* Test Item Value Reference Range Interpretation Comme [facility] GLUCOSE BEDSIDE TESTING (jenelle t code = GLUBED) 158 MG/DL 70-119 H BASIC METABOLIC [id number] 05:12:00* Test Item Value Reference Range Interpretation Comme nts SODIUM (test code = NA) 138.0 mmol/L 133-144 N POTASSIUM (test code = K) 3.6 mmol/L 3.5-5.1 N CHLORIDE (test code = CL) 105 mmol/L 95-105 N CARBON DIOXIDE (test code = CO2) 27 mmol/L 21-32 N ANION GAP (test code = GAP) 6.0 GAP calc 4.0-15.0 N GLUCOSE (test code = GLU) 172 MG/DL 70-110 H BLOOD UREA NITROGEN (test code = BUN) 14 MG/DL 7-18 N GLOMERULAR FILTRATION RATE (test code = GFR) 110 estGFR >60 The Glomerular Filtration Rate is a calculated parameterbased on serum Creatinine, patient age and sex. GFR valuesless than 60 mL/min/1.73 square meters are indicative ofChronic Kidney Disease. Values less than 15 mL/min/1.73square meters indicate Kidney failure. The calculation forGFR is based on the CKD-EPI (202) calculation. This formulais race indifferent and is the recommended formula for GFRby the National Kidney Foundation for Adults.The GFR will not calculate if the sex is unknown or if thepatient's age is <18 years. CREATININE (test code = CREAT) 0.64 MG/DL 0.55-1.30 N Results may be depressed if patient is takingN-Acetylcysteine (NAC) and Metamizole (Dipyrone). CALCIUM (test code = CA) 8.0 MG/DL 8.5-10.1 L INDEX HEMOLYSIS (test code = HEMINDEX) 1 NORMAL <10 MG Index/DL See_Comment [Automated message] The system which generated this result transmitted reference range: 1 NORMAL. The reference range was not used to interpret this result as normal/abnormal. INDEX ICTERIC (test code = ICTINDEX) 1 NORMAL <2 MG Index/DL See_Comment [Automated message] The system which generated this result transmitted reference range: 1 NORMAL. The reference range was not used to interpret this result as normal/abnormal. INDEX LIPEMIA (test code = LIPINDEX) 1 NORMAL <50 MG Index/DL See_Comment [Automated message] The system which generated this result transmitted reference range: 1 NORMAL. The reference range was not used to interpret this result as normal/abnormal. CBC W/AUTO [id number] 04:49:00* Test Item Value Reference Range Interpretation Comme nts WHITE BLOOD CELL (test code = WBC) 8.5 K/mm3 4.1-12.1 N RED BLOOD CELL (test code = RBC) 4.09 M/mm3 3.8-5.5 N HEMOGLOBIN (test code = HGB) 11.3 G/DL 10.6-15.8 N HEMATOCRIT (test code = HCT) 34.3 % 31.8-47.4 N MEAN CELL VOLUME (test code = MCV) 83.9 fL 80.1-101.1 N MEAN CELL HGB (test code = MCH) 27.6 pg 25.3-35.3 N MEAN CELL HGB CONCETRATION ( test code = MCHC) 32.9 G/DL 32.7-35.1 N RED CELL DISTRIBUTION WIDTH (test code = RDW) 13.8 % 12.2-16.4 N RED CELL DISTRIBUTION WIDTH (test code = RDW-SD) 42.8 fL 35.1-43.9 N PLATELET COUNT (test code = PLT) 411 K/mm3 155-337 H MEAN PLATELET VOLUME (test c ode = MPV) 8.9 fL 7.6-10.4 N GRANULOCYTE % (test code = GR%) 58.7 % 37.8-82.6 N IMMATURE GRANULOCYTE % (test code = IG%) 1.1 % 0.0-2.0 N LYMPHOCYTE % (test code = LY%) 25.7 % 14.1-45.4 N MONOCYTE % (test code = MO%) 9.7 % 2.5-11.7 N EOSINOPHIL % (test code = EO%) 3.7 % 0.0-6.2 N BASOPHIL % (test code = BA%) 1.1 % 0.0-2.6 N NUCLEATED RBC % (test code = NRBC%) 0.0 /100WBC% 0.0-1.0 N GRANULOCYTE # (test code = GR#) 4.97 k/mm3 2.0-13.7 N IMMATURE GRANULOCYTE # (test code = IG#) 0.09 K/mm3 0.00-0.03 H LYMPHOCYTE # (test code = LY#) 2.17 K/mm3 0.6-3.8 N MONOCYTE # (test code = MO#) 0.82 K/mm3 0.11-0.59 H EOSINOPHIL # (test code = EO#) 0.31 K/mm3 0.0-0.4 N BASOPHIL # (test code = BA#) 0.09 K/mm3 0.0-0.1 N NUCLEATED RBC # (test code = NRBC#) 0.00 K/mm3 0.00-0.05 N GLUCOSE BEDSIDE [id number] 21:00:00* Test Item Value Reference Range Interpretation Comme nts GLUCOSE BEDSIDE TESTING (jenelle t code = GLUBED) 272 MG/DL 70-119 H GLUCOSE BEDSIDE [id number] 16:50:00* Test Item Value Reference Range Interpretation Comme nts GLUCOSE BEDSIDE TESTING (jenelle t code = GLUBED) 114 MG/DL 70-119 N - CT NECK W W/O [id number] 15:01:00 [facility] : 1965 Sex: M Patient Name: BRIGHT SALAZAR Unit No: [id number] EXAMS: CPT CODE: [id number] CT NECK W W/O CONTRAST 43570 CLINICAL INFORMATION: Status post right carotid endarterectomy with wound infection.. Dictation location: A 1 COMPARISON: CTA head and neck done 10/05/2022. Technique: Axial scans were reviewed in bone and soft tissue windows. Sagittal and coronal computer-generated reconstructions were made. Examination was performed according to the departmental dose optimization program which includes automated exposure control, adjustment of the mA and/or kVp according to patient size and/or use of interactive reconstruction technique. DLP 777 mGy-cm. Findings: Postoperative changes are seen in the right side of the neck including an open wound with partial closure with bandaging and treatment materials. This directly overlies the region of the distal common carotid artery. Surgical clips are seen inthe region of the carotid bifurcation. There is thickening of the soft tissues and likely a localized fluid collection at the level of the surgical incision just above the carotid artery, bifurcation and thyroid gland. It is difficult to tell exactly how large is the collection as the thickened andedematous sternomastoid muscle is also in the area. The esophagus is seen to the midline or to the left of midline throughout its included length, and there does not appear to be a fistulous connection to the trachea or adjacent air in the soft tissues. However imaging during swallowing may be of greater sensitivity. Degenerative changes incidentally noted in the spine. 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 IMPRESSION: 1. Right carotid endarterectomy with wound infection. The previously noted obstruction is no longer identified. 2. Postoperative soft tiss ue swelling and probable wound infection at the operative site however the exact size of an abscesswould be difficult to determine because of the overlying thickening of the sternomastoid muscle. A fluid collection in the 1-2 cm size range is possible. 3. Follow-up imaging during active swallowingmay be of greater sensitivity. 4. Endoscopy should also be considered. at 1501 Reported and signed by: Juventino Horn MD CC: Dave Garces MD; Ezra Austin MD Dictated Date/Time: 11/11/2022 (1501) Technologist: Danyelle Duncan CTDI: DLP: Trnscrpt: 11/11/2022 (1501) [email or web address] RUFINA Destin NAME: [facility]BRIGHT [facility]AG[facility] PHYS: AHTRUPTI - Dave Garces MD [address] [place] [address] : 1965 AGE: 57 SEX: [place] [address] LOC: WendyICU22 W PHONE #: [phone] EXAM DATE: 11/11/2022 STATUS: ADM IN FAX #: [phone] RAD #: D/C DT PAGE 1 Signed Report Patient Name: BRIGHT SALAZAR Unit No: [id number] EXAMS: CPT CODE: [id number] CT NECK W W/O CONTRAST 35905 (Continued) Orig Print D/T: S: 11/11/2022 (1504) RUFINA Beyer NAME: DE[facility]BRIGHT [facility] PHYS: AHMRADave Medrano MD [address] [place] [address] : 1965 AGE: 57 SEX: [place] [address] LOC: B.ICU22 W PHONE #: [phone] EXAM DATE: 11/11/2022 STATUS: ADM IN FAX #: [phone] RAD #: D/C DTPAGE 2 Signed ReportGLUCOSE BEDSIDE [id number] 13:33:00* Test Item Value Reference Range Interpretation Comme nts GLUCOSE BEDSIDE TESTING (jenelle t code = GLUBED) 124 MG/DL 70-119 H GLUCOSE BEDSIDE [id number] 09:20:00* Test Item Value Reference Range Interpretation Comme nts GLUCOSE BEDSIDE TESTING (jenelle t code = GLUBED) 123 MG/DL 70-119 H CBC W/AUTO [id number] 09:16:00* Test Item Value Reference Range Interpretation Comme nts WHITE BLOOD CELL (test code = WBC) 11.4 K/mm3 4.1-12.1 N RED BLOOD CELL (test code = RBC) 4.23 M/mm3 3.8-5.5 N HEMOGLOBIN (test code = HGB) 12.0 G/DL 10.6-15.8 N HEMATOCRIT (test code = HCT) 35.7 % 31.8-47.4 N MEAN CELL VOLUME (test code = MCV) 84.4 fL 80.1-101.1 N MEAN CELL HGB (test code = MCH) 28.4 pg 25.3-35.3 N MEAN CELL HGB CONCETRATION ( test code = MCHC) 33.6 G/DL 32.7-35.1 N RED CELL DISTRIBUTION WIDTH (test code = RDW) 14.1 % 12.2-16.4 N RED CELL DISTRIBUTION WIDTH (test code = RDW-SD) 43.4 fL 35.1-43.9 N PLATELET COUNT (test code = PLT) 419 K/mm3 155-337 H MEAN PLATELET VOLUME (test c ode = MPV) 9.4 fL 7.6-10.4 N GRANULOCYTE % (test code = GR%) 56.1 % 37.8-82.6 N IMMATURE GRANULOCYTE % (test code = IG%) 1.7 % 0.0-2.0 N LYMPHOCYTE % (test code = LY%) 29.4 % 14.1-45.4 N MONOCYTE % (test code = MO%) 9.1 % 2.5-11.7 N EOSINOPHIL % (test code = EO%) 2.8 % 0.0-6.2 N BASOPHIL % (test code = BA%) 0.9 % 0.0-2.6 N NUCLEATED RBC % (test code = NRBC%) 0.0 /100WBC% 0.0-1.0 N GRANULOCYTE # (test code = GR#) 6.37 k/mm3 2.0-13.7 N IMMATURE GRANULOCYTE # (test code = IG#) 0.19 K/mm3 0.00-0.03 H LYMPHOCYTE # (test code = LY#) 3.34 K/mm3 0.6-3.8 N MONOCYTE # (test code = MO#) 1.03 K/mm3 0.11-0.59 H EOSINOPHIL # (test code = EO#) 0.32 K/mm3 0.0-0.4 N BASOPHIL # (test code = BA#) 0.10 K/mm3 0.0-0.1 N NUCLEATED RBC # (test code = NRBC#) 0.00 K/mm3 0.00-0.05 N SED [id number] 09:16:00* Test Item Value Reference Range Interpretation Comme nts SED RATE (test code = SEDW) 92 mm/hr 0-20 H LIPID PROFILE (CORONARY RISK)2022-11-11 06:42:00* Test Item Value Reference Range Interpretation Comments TRIGLYCERIDES (test code = TRIG) 154 MG/DL 0-150 H BORDERLINE HIGH RISK TRIGLYCERIDE 150-199 MG/DLReference intervals provided by The National CholesterolEducation Program Adult Treatment Panel III (NCEP-ATP III).Results may be depressed if patient is takingN-Acetylcysteine (NAC) and Metamizole (Dipyrone). CHOLESTEROL (test code = CHOL) 116 MG/DL 133-200 L CHOLESTEROL/HDL RATIO (test code = CHOLHDL) 6.44 RATIO See_Comment REFERENCE RANGE: MALE FEMALE 1/2 AVG RISK 3.43 3.27 AVG RISK 4.97 4.44 2X AVG RISK 9.55 7.05 3X AVG RISK 23.39 11.04 [Automated message] The system which generated this result transmitted reference range: 0-. The reference range was not used to interpret this result as normal/abnormal. HDL CHOLESTEROL (test code = HDL) 18 MG/DL 40-59 L Results maybe depressed if patient is taking Metamizole(Dipyrone). NON-HDL CHOLESTEROL (test code = NHDL) 98 mg/dL <130 Patients with CHD or CHD risk LDL: <70 mg/dL nonHDL: <100 mg/dLPatients with 2+ risk factors LDL: <130 mg/dL nonHDL: <160 mg/dLPatients with 0-1 risk factors LDL: <160 mg/dL nonHDL: <190 mg/dL LIPOPROTEIN LDL (test code = LDL) 67 MG/DL 0-129 N LDL/HDL (test code = LDL/HDL) 3.72 Ratio See_Comment H LDL/HDL RISK ASSESSMENT1.47 One-half average3.22 Average5.03 Two times average6.14 Three times average [Automated message] The system which generated this result transmitted reference range: 1.48-3.22 Avg. The reference range was not used to interpret this result as normal/abnormal. INDEX HEMOLYSIS (test code = HEMINDEX) 1 NORMAL <10 MG Index/DL See_Comment [Automated message] The system which generated this result transmitted reference range: 1 NORMAL. The reference range was not used to interpret this result as normal/abnormal. INDEX ICTERIC (test code = ICTINDEX) 1 NORMAL <2 MG Index/DL See_Comment [Automated message] The system which generated this result transmitted reference range: 1 NORMAL. The reference range was not used to interpret this result as normal/abnormal. INDEX LIPEMIA (test code = LIPINDEX) 1 NORMAL <50 MG Index/DL See_Comment [Automated message] The system which generated this result transmitted reference range: 1 NORMAL. The reference range was not used to interpret this result as normal/abnormal. C REACTIVE [id number] 06:39:00* Test Item Value Reference Range Interpretation Comme nts C REACTIVE PROTEIN (test cod e = CRP) 4.010 MG/DL 0.000-0.900 H BASIC METABOLIC [id number] 06:23:00* Test Item Value Reference Range Interpretation Comme nts SODIUM (test code = NA) 136.0 mmol/L 133-144 N POTASSIUM (test code = K) 3.5 mmol/L 3.5-5.1 N CHLORIDE (test code = CL) 105 mmol/L 95-105 N CARBON DIOXIDE (test code = CO2) 24 mmol/L 21-32 ANION GAP (test code = GAP) 7.0 GAP calc 4.0-15.0 N GLUCOSE (test code = GLU) 127 MG/DL 70-110 H BLOOD UREA NITROGEN (test code = BUN) 20 MG/DL 7-18 H CREATININE (test code = CREAT) 0.64 MG/DL 0.55-1.30 N Results may be depressed if patient is takingN-Acetylcysteine (NAC) and Metamizole (Dipyrone). CALCIUM (test code = CA) 8.6 MG/DL 8.5-10.1 N INDEX HEMOLYSIS (test code = HEMINDEX) 1 NORMAL <10 MG Index/DL See_Comment [Automated message] The system which generated this result transmitted reference range: 1 NORMAL. The reference range was not used to interpret this result as normal/abnormal. INDEX ICTERIC (test code = ICTINDEX) 1 NORMAL <2 MG Index/DL See_Comment [Automated message] The system which generated this result transmitted reference range: 1 NORMAL. The reference range was not used to interpret this result as normal/abnormal. INDEX LIPEMIA (test code = LIPINDEX) 1 NORMAL <50 MG Index/DL See_Comment [Automated message] The system which generated this result transmitted reference range: 1 NORMAL. The reference range was not used to interpret this result as normal/abnormal. GLOMERULAR FILTRATION RATE (test code = GFR) 110 estGFR >60 The Glomerular Filtration Rate is a calculated parameterbased on serum Creatinine, patient age and sex. GFR valuesless than 60 mL/min/1.73 square meters are indicative ofChronic Kidney Disease. Values less than 15 mL/min/1.73square meters indicate Kidney failure. The calculation forGFR is based on the CKD-EPI (202) calculation. This formulais race indifferent and is the recommended formula for GFRby the National Kidney Foundation for Adults.The GFR will not calculate if the sex is unknown or if thepatient's age is <18 years. [id number] 06:23:00* Test Item Value Reference Range Interpretation Comme nts MAGNESIUM (test code = MAG) 1.4 MG/DL 1.6-2.6 L THYROID STIMULATING [id number] 06:23:00* Test Item Value Reference Range Interpretation Comme nts THYROID STIMULATING HORMONE (test code = TSH) 0.782 mc IU/ML 0.340-4.820 N GLYCOSYLATED HEMOGLOBIN (HA1C)2022-11-11 06:10:00* Test Item Value Reference Range Interpretation Comme nts GLYCOSYLATED HEMOGLOBIN (HA1 C) (test code = GLYHGB) 9.3 % IS-A1C 4.5-5.6 H ESTIMATED AVERAGE [id number] 06:10:00* Test Item Value Reference Range Interpretation Comme [facility] ESTIMATED AVERAGE GLUCOSE (t est code = EAG) 220 MG/DLest PT AND [id number] 06:03:00* Test Item Value Reference Range Interpretation Comments PT PATIENT (test code = PTP) 14.3 SECONDS 9.4-12.5 H INTERNATIONAL NORMAL RATIO (test code = INR) 1.27 INR Unit 0.88-1.13 H ----- ---------Therapeutic range for INR is dependent upon the situation.2.0-3.0 Prophylaxis / venous thromboembolism, Treatment of DVT, Acute myocardial infarction stroke prevention, Systemic embolism prevention in fibrillation3.0-4.5 AMI recurrence prevention, Systemic embolism prevention in prosthetic heart 3.0-5.4 AMI mortality reduction THROMBOPLASTIN TIME PARTIAL (test code = PTT) 29.6 SECONDS 24-37.7 N THERAPEUTIC RANG E FOR UNFRACTIONATED HEPARIN = 50.5-83.6 SEC This test is not recommended to monitor low molecularweight heparin or danaparoid. Order LMWH test COLLECTION THROUGH LINES THAT HAVE BEEN PREVIOUSLY FLUSHEDWITH HEPARIN SHOULD BE AVOIDED DUE TO POSSIBLE HEPARINCONTAMINATION TROP-I HIGH [id number] 23:58:00* Test Item Value Reference Range Interpretation Comme [facility] TROP-I HIGH SENSITIVITY (test code = TROPIHS) 145 ng/L 0-45 HH ON 11/10/22 AT 2 358, a.STF.[email or web address] CALLED TO JENNIFER ROUSE RN. The report was confirmed by read back protocols Y,N: Y. Critical values after the first occurrence are excluded. CAUTION: Units of the current test methodology (ng/L) differfrom the prior test methodology (ng/mL) by a factor of 1000. 99th Percentile Upper Reference Limit (URL): Females: 54 ng/LMales: 78 ng/L In order to distinguish acute elevations of high sensitivitytroponin from other clinical conditions, the FourthUniversal Definition of Myocardial Infarction stressesclinical assessment and the demonstration of a rise and/orfall in serial troponin results above the URL. Results from different methodologies should not be comparedto one another as quantitative results and URLs may vary bymethod. BASIC METABOLIC [id number] 23:28:00* Test Item Value Reference Range Interpretation Comme nts SODIUM (test code = NA) 137.0 mmol/L 133-144 N POTASSIUM (test code = K) 3.2 mmol/L 3.5-5.1 L CHLORIDE (test code = CL) 102 mmol/L 95-105 N CARBON DIOXIDE (test code = CO2) 29 mmol/L 21-32 N ANION GAP (test code = GAP) 6.0 GAP calc 4.0-15.0 N GLUCOSE (test code = GLU) 103 MG/DL 70-110 N BLOOD UREA NITROGEN (test code = BUN) 22 MG/DL 7-18 H GLOMERULAR FILTRATION RATE (test code = GFR) 100 estGFR >60 The Glomerular Filtration Rate is a calculated parameterbased on serum Creatinine, patient age and sex. GFR valuesless than 60 mL/min/1.73 square meters are indicative ofChronic Kidney Disease. Values less than 15 mL/min/1.73square meters indicate Kidney failure. The calculation forGFR is based on the CKD-EPI (202) calculation. This formulais race indifferent and is the recommended formula for GFRby the National Kidney Foundation for Adults.The GFR will not calculate if the sex is unknown or if thepatient's age is <18 years. CREATININE (test code = CREAT) 0.89 MG/DL 0.55-1.30 N Results may be depressed if patient is takingN-Acetylcysteine (NAC) and Metamizole (Dipyrone). CALCIUM (test code = CA) 8.8 MG/DL 8.5-10.1 N INDEX HEMOLYSIS (test code = HEMINDEX) 2 TRACE 10-25 MG Index/DL See_Comment [Automated message] The system which generated this result transmitted reference range: 1 NORMAL. The reference range was not used to interpret this result as normal/abnormal. INDEX ICTERIC (test code = ICTINDEX) 1 NORMAL <2 MG Index/DL See_Comment [Automated message] The system which generated this result transmitted reference range: 1 NORMAL. The reference range was not used to interpret this result as normal/abnormal. INDEX LIPEMIA (test code = LIPINDEX) 1 NORMAL <50 MG Index/DL See_Comment [Automated message] The system which generated this result transmitted reference range: 1 NORMAL. The reference range was not used to interpret this result as normal/abnormal. HEPATIC FUNCTION [id number] 23:28:00* Test Item Value Reference Range Interpretation Comme nts TOTAL PROTEIN (test code = PROT) 10.2 G/DL 6.4-8.2 H ALBUMIN (test code = ALB) 2.5 G/DL 3.4-5.0 L BILIRUBIN TOTAL (test code = BILT) 0.27 MG/DL 0.00-1.00 N BILIRUBIN DIRECT (test code = BILD) < 0.10 MG/DL 0.00-0.30 N BILIRUBIN INDIRECT (test cod e = BILIND) 0.27 MG/DL 0.2-1.3 N SGOT/AST (test code = AST) 21 Unit/L 15-37 N SGPT/ALT (test code = ALT) 22 Unit/L 12-78 N ALKALINE PHOSPHATASE TOTAL ( test code = ALKP) 135 Unit/L 45-117 H LACTIC [id number] 23:28:00* Test Item Value Reference Range Interpretation Comme nts LACTIC ACID (test code = LACT) 0.8 mmol/L 0.4-2.0 N - XR CHEST 1 [id number] 23:27:[facility] : 1965 Sex: M FAX:Robbie Sellers MD [place]: E St: PRE Patient Name: BRIGHT SALAZAR Unit No: [id number] EXAMS: CPT CODE: [id number] XR CHEST 1 V 12441 AP Portable Chest Location Code M12 HISTORY: Shortness of Breath, suspect pneumonia FINDINGS: There are no infiltrates. There are no pleural effusions. There is no pneumothorax. Cardiac silhouette and mediastinum appear within normal limits. Sternotomy wires are in place. IMPRESSION: No active pulmonary findings. at 2327 Reported and signed by: Radha Fairchild M.D. CC: Robbie Sellers MD Dictated Date/Time: 11/10/2022 (2326)Technologist: Lala Mireles Transcribed Date/Time: 11/10/2022 (2326) By: [email or web address] Orig Print D/T: S: 11/10/2022 (1480) [facility] [place] NAME: BRIGHT SALAZAR [address] [place] [address] Blvd PHYS:Robbie Graf MD, [place] [address] : 1965 AGE: 57 SEX: M LOC: SEAN PHONE #: [phone] EXAM DATE: 11/10/2022 STATUS: PRE ER FAX #: [phone] RAD NO: DCDt: PAGE 1 Signed ReportCBC W/AUTO [id number] 23:15:00* Test Item Value Reference Range Interpretation Comme nts WHITE BLOOD CELL (test code = WBC) 13.9 K/mm3 4.1-12.1 H RED BLOOD CELL (test code = RBC) 5.09 M/mm3 3.8-5.5 N HEMOGLOBIN (test code = HGB) 14.1 G/DL 10.6-15.8 N HEMATOCRIT (test code = HCT) 42.7 % 31.8-47.4 N MEAN CELL VOLUME (test code = MCV) 83.9 fL 80.1-101.1 N MEAN CELL HGB (test code = MCH) 27.7 pg 25.3-35.3 N MEAN CELL HGB CONCETRATION ( test code = MCHC) 33.0 G/DL 32.7-35.1 N RED CELL DISTRIBUTION WIDTH (test code = RDW) 14.2 % 12.2-16.4 N RED CELL DISTRIBUTION WIDTH (test code = RDW-SD) 43.1 fL 35.1-43.9 N PLATELET COUNT (test code = PLT) 505 K/mm3 155-337 H MEAN PLATELET VOLUME (test c ode = MPV) 9.3 fL 7.6-10.4 N GRANULOCYTE % (test code = GR%) 59.9 % 37.8-82.6 N IMMATURE GRANULOCYTE % (test code = IG%) 2.2 % 0.0-2.0 H LYMPHOCYTE % (test code = LY%) 26.1 % 14.1-45.4 N MONOCYTE % (test code = MO%) 8.8 % 2.5-11.7 N EOSINOPHIL % (test code = EO%) 2.2 % 0.0-6.2 N BASOPHIL % (test code = BA%) 0.8 % 0.0-2.6 N NUCLEATED RBC % (test code = NRBC%) 0.0 /100WBC% 0.0-1.0 N GRANULOCYTE # (test code = GR#) 8.35 k/mm3 2.0-13.7 N IMMATURE GRANULOCYTE # (test code = IG#) 0.30 K/mm3 0.00-0.03 H LYMPHOCYTE # (test code = LY#) 3.63 K/mm3 0.6-3.8 N MONOCYTE # (test code = MO#) 1.22 K/mm3 0.11-0.59 H EOSINOPHIL # (test code = EO#) 0.31 K/mm3 0.0-0.4 N BASOPHIL # (test code = BA#) 0.11 K/mm3 0.0-0.1 H NUCLEATED RBC # (test code = NRBC#) 0.00 K/mm3 0.00-0.05 N GLUCOSE BEDSIDE [id number] 11:53:00* Test Item Value Reference Range Interpretation Comme nts GLUCOSE BEDSIDE TESTING (jenelle t code = GLUBED) 221 MG/DL 70-119 H GLUCOSE BEDSIDE [id number] 05:43:00* Test Item Value Reference Range Interpretation Comme nts GLUCOSE BEDSIDE TESTING (jenelle t code = GLUBED) 238 MG/DL 70-119 H GLUCOSE BEDSIDE [id number] 20:19:00* Test Item Value Reference Range Interpretation Comme nts GLUCOSE BEDSIDE TESTING (jenelle t code = GLUBED) 215 MG/DL 70-119 H GLUCOSE BEDSIDE [id number] 16:12:00* Test Item Value Reference Range Interpretation Comme nts GLUCOSE BEDSIDE TESTING (jenelle t code = GLUBED) 286 MG/DL 70-119 H GLUCOSE BEDSIDE [id number] 11:49:00* Test Item Value Reference Range Interpretation Comme nts GLUCOSE BEDSIDE TESTING (jenelle t code = GLUBED) 220 MG/DL 70-119 H GLUCOSE BEDSIDE [id number] 07:48:00* Test Item Value Reference Range Interpretation Comme nts GLUCOSE BEDSIDE TESTING (jenelle t code = GLUBED) 210 MG/DL 70-119 H CBC W/AUTO [id number] 05:58:00* Test Item Value Reference Range Interpretation Comme nts WHITE BLOOD CELL (test code = WBC) 10.0 K/mm3 4.1-12.1 N RED BLOOD CELL (test code = RBC) 4.75 M/mm3 3.8-5.5 N HEMOGLOBIN (test code = HGB) 13.4 G/DL 10.6-15.8 N HEMATOCRIT (test code = HCT) 40.5 % 31.8-47.4 N MEAN CELL VOLUME (test code = MCV) 85.3 fL 80.1-101.1 N MEAN CELL HGB (test code = MCH) 28.2 pg 25.3-35.3 N MEAN CELL HGB CONCETRATION ( test code = MCHC) 33.1 G/DL 32.7-35.1 N RED CELL DISTRIBUTION WIDTH (test code = RDW) 13.4 % 12.2-16.4 N RED CELL DISTRIBUTION WIDTH (test code = RDW-SD) 41.6 fL 35.1-43.9 N PLATELET COUNT (test code = PLT) 305 K/mm3 155-337 N MEAN PLATELET VOLUME (test c ode = MPV) 10.0 fL 7.6-10.4 N GRANULOCYTE % (test code = GR%) 64.4 % 37.8-82.6 N IMMATURE GRANULOCYTE % (test code = IG%) 0.6 % 0.0-2.0 N LYMPHOCYTE % (test code = LY%) 22.1 % 14.1-45.4 N MONOCYTE % (test code = MO%) 8.9 % 2.5-11.7 N EOSINOPHIL % (test code = EO%) 3.2 % 0.0-6.2 N BASOPHIL % (test code = BA%) 0.8 % 0.0-2.6 N NUCLEATED RBC % (test code = NRBC%) 0.0 /100WBC% 0.0-1.0 N GRANULOCYTE # (test code = GR#) 6.47 k/mm3 2.0-13.7 N IMMATURE GRANULOCYTE # (test code = IG#) 0.06 K/mm3 0.00-0.03 H LYMPHOCYTE # (test code = LY#) 2.22 K/mm3 0.6-3.8 N MONOCYTE # (test code = MO#) 0.89 K/mm3 0.11-0.59 H EOSINOPHIL # (test code = EO#) 0.32 K/mm3 0.0-0.4 N BASOPHIL # (test code = BA#) 0.08 K/mm3 0.0-0.1 N NUCLEATED RBC # (test code = NRBC#) 0.00 K/mm3 0.00-0.05 N GLUCOSE BEDSIDE [id number] 21:57:00* Test Item Value Reference Range Interpretation Comme nts GLUCOSE BEDSIDE TESTING (jenelle t code = GLUBED) 104 MG/DL 70-119 N GLUCOSE BEDSIDE [id number] 16:30:00* Test Item Value Reference Range Interpretation Comme nts GLUCOSE BEDSIDE TESTING (jenelle t code = GLUBED) 193 MG/DL 70-119 H TROP-I HIGH [id number] 11:43:00* Test Item Value Reference Range Interpretation Comme nts TROP-I HIGH SENSITIVITY (test code = TROPIHS) 10 ng/L 0-45 N CAUTION: Units of the current test methodology (ng/L) differfrom the prior test methodology (ng/mL) by a factor of 1000. 99th Percentile Upper Reference Limit (URL): Females: 54 ng/LMales: 78 ng/L In order to distinguish acute elevations of high sensitivitytroponin from other clinical conditions, the FourthUniversal Definition of Myocardial Infarction stressesclinical assessment and the demonstration of a rise and/orfall in serial troponin results above the URL. Results from different methodologies should not be comparedto one another as quantitative results and URLs may vary bymethod. GLUCOSE BEDSIDE [id number] 11:32:00* Test Item Value Reference Range Interpretation Comme nts GLUCOSE BEDSIDE TESTING (jenelle t code = GLUBED) 185 MG/DL 70-119 H GLUCOSE BEDSIDE [id number] 06:30:00* Test Item Value Reference Range Interpretation Comme nts GLUCOSE BEDSIDE TESTING (jenelle t code = GLUBED) 135 MG/DL 70-119 H GLUCOSE BEDSIDE [id number] 19:48:00* Test Item Value Reference Range Interpretation Comme nts GLUCOSE BEDSIDE TESTING (jenelle t code = GLUBED) 171 MG/DL 70-119 H GLUCOSE BEDSIDE [id number] 15:40:00* Test Item Value Reference Range Interpretation Comme nts GLUCOSE BEDSIDE TESTING (jenelle t code = GLUBED) 198 MG/DL 70-119 H GLUCOSE BEDSIDE [id number] 11:21:00* Test Item Value Reference Range Interpretation Comme nts GLUCOSE BEDSIDE TESTING (jenelle t code = GLUBED) 182 MG/DL 70-119 H GLUCOSE BEDSIDE [id number] 05:29:00* Test Item Value Reference Range Interpretation Comme nts GLUCOSE BEDSIDE TESTING (jenelle t code = GLUBED) 194 MG/DL 70-119 H GLUCOSE BEDSIDE [id number] 20:27:00* Test Item Value Reference Range Interpretation Comme nts GLUCOSE BEDSIDE TESTING (jenelle t code = GLUBED) 195 MG/DL 70-119 H GLUCOSE BEDSIDE [id number] 16:32:00* Test Item Value Reference Range Interpretation Comme nts GLUCOSE BEDSIDE TESTING (jenelle t code = GLUBED) 210 MG/DL 70-119 H GLUCOSE BEDSIDE [id number] 11:47:00* Test Item Value Reference Range Interpretation Comme nts GLUCOSE BEDSIDE TESTING (jenelle t code = GLUBED) 218 MG/DL 70-119 H GLUCOSE BEDSIDE [id number] 05:44:00* Test Item Value Reference Range Interpretation Comme nts GLUCOSE BEDSIDE TESTING (jenelle t code = GLUBED) 177 MG/DL 70-119 H GLUCOSE BEDSIDE [id number] 20:58:00* Test Item Value Reference Range Interpretation Comme nts GLUCOSE BEDSIDE TESTING (jenelle t code = GLUBED) 142 MG/DL 70-119 H GLUCOSE BEDSIDE [id number] 16:53:00* Test Item Value Reference Range Interpretation Comme nts GLUCOSE BEDSIDE TESTING (jenelle t code = GLUBED) 151 MG/DL 70-119 H - XR ABDOMEN 1 [id number] 13:15:00 [facility] : 1965 Sex: M FAX:Flako Elias MD [phone] [place]: St: ADM FAX: Moises Baltazar MD [phone] Patient Name: BRIGHT SALAZAR Unit No: [id number] EXAMS: CPT CODE: [id number] XR ABDOMEN 1 V 92994 EXAM: - XR ABDOMEN 1 V INDICATION: FLANK PAIN. Technique: Frontal abdominal radiograph. Location: T18 Findings and impression: No bowel obstruction or ileus seen. Small amount of stool in the colon. No renal stones appreciated radiographically. If definitive imaging evaluation is warranted, correlation with CT examination is suggested. at 1315 Reported and signed by: Juan Carlos Nowak MD CC: Moises Skinner MD Dictated Date/Time: 10/19/2022 (1315)Technologist: Tushar Yuan Transcribed Date/Time: 10/19/2022 (1315) By: [email or web address] Orig Print D/T: S: 10/19/2022 (3828) [facility] PHYS: Moises Bergeron MD [address] [place] [address] : 1965 AGE: 57 SEX: Jasmin [place], [place] [id number] LOC: B.365 W PHONE #: [phone] EXAM DATE: 10/19/2022 STATUS: ADM IN FAX #: [phone] RAD NO: DC Dt: PAGE 1 Signed ReportGLUCOSE BEDSIDE [id number] 11:53:00* Test Item Value Reference Range Interpretation Comme [facility] GLUCOSE BEDSIDE TESTING (jenelle t code = GLUBED) 146 MG/DL 70-119 H GLUCOSE BEDSIDE [id number] 05:27:00* Test Item Value Reference Range Interpretation Comme nts GLUCOSE BEDSIDE TESTING (jenelle t code = GLUBED) 172 MG/DL 70-119 H GLUCOSE BEDSIDE [id number] 20:23:00* Test Item Value Reference Range Interpretation Comme nts GLUCOSE BEDSIDE TESTING (jenelle t code = GLUBED) 206 MG/DL 70-119 H GLUCOSE BEDSIDE [id number] 17:09:00* Test Item Value Reference Range Interpretation Comme nts GLUCOSE BEDSIDE TESTING (jenelle t code = GLUBED) 256 MG/DL 70-119 H GLUCOSE BEDSIDE [id number] 11:55:00* Test Item Value Reference Range Interpretation Comme nts GLUCOSE BEDSIDE TESTING (jenelle t code = GLUBED) 175 MG/DL 70-119 H GLUCOSE BEDSIDE [id number] 05:39:00* Test Item Value Reference Range Interpretation Comme nts GLUCOSE BEDSIDE TESTING (jenelle t code = GLUBED) 111 MG/DL 70-119 N GLUCOSE BEDSIDE [id number] 20:40:00* Test Item Value Reference Range Interpretation Comme nts GLUCOSE BEDSIDE TESTING (jenelle t code = GLUBED) 142 MG/DL 70-119 H - XR TIBIA/FIBULA 2 V [id number] 17:40:00 [facility] : 1965 Sex: M FAX:Jacquie Guzman MD [place]: C St: [facility] FAX: Flako Elias MD [phone] Patient Name: BRIGHT SALAZAR Unit No: [id number] EXAMS: CPT CODE: [id number] XR TIBIA/FIBULA 2 [place] [address] EXAMINATION: - XR TIBIA/FIBULA 2 V LT CLINICAL INDICATION: Male, 57 years year old with R/O gas in tissue COMPARISON: 10/05/2022 LOCATION:T18 FINDINGS: 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 Soft tissue indentation and irregularity at the lateral distal soft tissue may be an ulcer or wound. Suspect small amount of linear area extending from the ulcer or wound which may be related to deep ulcer or wound. No other areas of air are seen. No acute bony irregularity seen. IMPRESSION: Small area of linear air in the soft tissues at the distal stump may be related to deep wound or ulcer. at 1740 Reported and signed by: Rashad Rasmussen MD CC: Jacquie De La Garza MD Dictated Date/Time: 10/17/2022 (1739)Technologist: Tushar Yuan Transcribed Date/Time: 10/17/2022 (1739) By: [email or web address] Orig Print D/T: S: 10/17/2022 (1742) [facility] NAME: BRIGHT SALAZAR [facility] PHYS: Jacquie Mo MD [address] [place] [address] BLVD : 1965 AGE:57 SEX: Jasmin [place], [place] [address] LOC: B.365 W PHONE #: [phone] EXAM DATE: 10/17/2022 STATUS: ADM IN FAX #: [phone] RAD NO: DC Dt: PAGE 1 Signed ReportGLUCOSE BEDSIDE [id number] 16:31:00* Test Item Value Reference Range Interpretation Comme nts GLUCOSE BEDSIDE TESTING (jenelle t code = GLUBED) 154 MG/DL 70-119 H GLUCOSE BEDSIDE [id number] 05:28:00* Test Item Value Reference Range Interpretation Comme nts GLUCOSE BEDSIDE TESTING (jenelle t code = GLUBED) 147 MG/DL 70-119 H GLUCOSE BEDSIDE [id number] 20:32:00* Test Item Value Reference Range Interpretation Comme nts GLUCOSE BEDSIDE TESTING (jenelle t code = GLUBED) 127 MG/DL 70-119 H GLUCOSE BEDSIDE [id number] 17:16:00* Test Item Value Reference Range Interpretation Comme nts GLUCOSE BEDSIDE TESTING (jenelle t code = GLUBED) 183 MG/DL 70-119 H GLUCOSE BEDSIDE [id number] 11:46:00* Test Item Value Reference Range Interpretation Comme nts GLUCOSE BEDSIDE TESTING (jenelle t code = GLUBED) 189 MG/DL 70-119 H GLUCOSE BEDSIDE [id number] 06:01:00* Test Item Value Reference Range Interpretation Comme nts GLUCOSE BEDSIDE TESTING (jenelle t code = GLUBED) 205 MG/DL 70-119 H GLUCOSE BEDSIDE [id number] 20:53:00* Test Item Value Reference Range Interpretation Comme nts GLUCOSE BEDSIDE TESTING (jenelle t code = GLUBED) 262 MG/DL 70-119 H GLUCOSE BEDSIDE [id number] 17:07:00* Test Item Value Reference Range Interpretation Comme nts GLUCOSE BEDSIDE TESTING (jenelle t code = GLUBED) 239 MG/DL 70-119 H GLUCOSE BEDSIDE [id number] 11:20:00* Test Item Value Reference Range Interpretation Comme nts GLUCOSE BEDSIDE TESTING (jenelle t code = GLUBED) 159 MG/DL 70-119 H BASIC METABOLIC [id number] 05:47:00* Test Item Value Reference Range Interpretation Comme nts SODIUM (test code = NA) 134.0 mmol/L 133-144 N POTASSIUM (test code = K) 3.5 mmol/L 3.5-5.1 N CHLORIDE (test code = CL) 102 mmol/L 95-105 N CARBON DIOXIDE (test code = CO2) 28 mmol/L 21-32 N ANION GAP (test code = GAP) 4.0 GAP calc 4.0-15.0 N GLUCOSE (test code = GLU) 112 MG/DL 70-110 H BLOOD UREA NITROGEN (test code = BUN) 11 MG/DL 7-18 N GLOMERULAR FILTRATION RATE (test code = GFR) 107 estGFR >60 The Glomerular Filtration Rate is a calculated parameterbased on serum Creatinine, patient age and sex. GFR valuesless than 60 mL/min/1.73 square meters are indicative ofChronic Kidney Disease. Values less than 15 mL/min/1.73square meters indicate Kidney failure. The calculation forGFR is based on the CKD-EPI (202) calculation. This formulais race indifferent and is the recommended formula for GFRby the National Kidney Foundation for Adults.The GFR will not calculate if the sex is unknown or if thepatient's age is <18 years. CREATININE (test code = CREAT) 0.70 MG/DL 0.55-1.30 N Results may be depressed if patient is takingN-Acetylcysteine (NAC) and Metamizole (Dipyrone). CALCIUM (test code = CA) 8.9 MG/DL 8.5-10.1 N INDEX HEMOLYSIS (test code = HEMINDEX) 1 NORMAL <10 MG Index/DL See_Comment [Automated message] The system which generated this result transmitted reference range: 1 NORMAL. The reference range was not used to interpret this result as normal/abnormal. INDEX ICTERIC (test code = ICTINDEX) 1 NORMAL <2 MG Index/DL See_Comment [Automated message] The system which generated this result transmitted reference range: 1 NORMAL. The reference range was not used to interpret this result as normal/abnormal. INDEX LIPEMIA (test code = LIPINDEX) 1 NORMAL <50 MG Index/DL See_Comment [Automated message] The system which generated this result transmitted reference range: 1 NORMAL. The reference range was not used to interpret this result as normal/abnormal. CBC W/AUTO [id number] 05:43:00* Test Item Value Reference Range Interpretation Comme nts WHITE BLOOD CELL (test code = WBC) 9.7 K/mm3 4.1-12.1 N RED BLOOD CELL (test code = RBC) 4.93 M/mm3 3.8-5.5 N HEMOGLOBIN (test code = HGB) 13.9 G/DL 10.6-15.8 N HEMATOCRIT (test code = HCT) 41.9 % 31.8-47.4 N MEAN CELL VOLUME (test code = MCV) 85.0 fL 80.1-101.1 N MEAN CELL HGB (test code = MCH) 28.2 pg 25.3-35.3 N MEAN CELL HGB CONCETRATION ( test code = MCHC) 33.2 G/DL 32.7-35.1 N RED CELL DISTRIBUTION WIDTH (test code = RDW) 13.4 % 12.2-16.4 N RED CELL DISTRIBUTION WIDTH (test code = RDW-SD) 41.1 fL 35.1-43.9 N PLATELET COUNT (test code = PLT) 338 K/mm3 155-337 H MEAN PLATELET VOLUME (test c ode = MPV) 9.2 fL 7.6-10.4 N GRANULOCYTE % (test code = GR%) 58.7 % 37.8-82.6 N IMMATURE GRANULOCYTE % (test code = IG%) 0.6 % 0.0-2.0 N LYMPHOCYTE % (test code = LY%) 25.3 % 14.1-45.4 N MONOCYTE % (test code = MO%) 11.9 % 2.5-11.7 H EOSINOPHIL % (test code = EO%) 2.6 % 0.0-6.2 N BASOPHIL % (test code = BA%) 0.9 % 0.0-2.6 N NUCLEATED RBC % (test code = NRBC%) 0.0 /100WBC% 0.0-1.0 N GRANULOCYTE # (test code = GR#) 5.70 k/mm3 2.0-13.7 N IMMATURE GRANULOCYTE # (test code = IG#) 0.06 K/mm3 0.00-0.03 H LYMPHOCYTE # (test code = LY#) 2.46 K/mm3 0.6-3.8 N MONOCYTE # (test code = MO#) 1.16 K/mm3 0.11-0.59 H EOSINOPHIL # (test code = EO#) 0.25 K/mm3 0.0-0.4 N BASOPHIL # (test code = BA#) 0.09 K/mm3 0.0-0.1 N NUCLEATED RBC # (test code = NRBC#) 0.00 K/mm3 0.00-0.05 N GLUCOSE BEDSIDE [id number] 05:30:00* Test Item Value Reference Range Interpretation Comme nts GLUCOSE BEDSIDE TESTING (jenelle t code = GLUBED) 119 MG/DL 70-119 N GLUCOSE BEDSIDE [id number] 20:10:00* Test Item Value Reference Range Interpretation Comme nts GLUCOSE BEDSIDE TESTING (jenelle t code = GLUBED) 137 MG/DL 70-119 H GLUCOSE BEDSIDE [id number] 16:13:00* Test Item Value Reference Range Interpretation Comme nts GLUCOSE BEDSIDE TESTING (jenelle t code = GLUBED) 286 MG/DL 70-119 H GLUCOSE BEDSIDE [id number] 12:40:00* Test Item Value Reference Range Interpretation Comme nts GLUCOSE BEDSIDE TESTING (jenelle t code = GLUBED) 298 MG/DL 70-119 H GLUCOSE BEDSIDE [id number] 06:15:00* Test Item Value Reference Range Interpretation Comme nts GLUCOSE BEDSIDE TESTING (jenelle t code = GLUBED) 111 MG/DL 70-119 N GLUCOSE BEDSIDE [id number] 20:01:00* Test Item Value Reference Range Interpretation Comme nts GLUCOSE BEDSIDE TESTING (jenelle t code = GLUBED) 267 MG/DL 70-119 H GLUCOSE BEDSIDE [id number] 15:42:00* Test Item Value Reference Range Interpretation Comme nts GLUCOSE BEDSIDE TESTING (jenelle t code = GLUBED) 259 MG/DL 70-119 H GLUCOSE BEDSIDE [id number] 11:47:00* Test Item Value Reference Range Interpretation Comme nts GLUCOSE BEDSIDE TESTING (jenelle t code = GLUBED) 121 MG/DL 70-119 H GLUCOSE BEDSIDE [id number] 06:01:00* Test Item Value Reference Range Interpretation Comme nts GLUCOSE BEDSIDE TESTING (jenelle t code = GLUBED) 111 MG/DL 70-119 N GLUCOSE BEDSIDE [id number] 16:25:00* Test Item Value Reference Range Interpretation Comme nts GLUCOSE BEDSIDE TESTING (jenelle t code = GLUBED) 89 MG/DL 70-119 N GLUCOSE BEDSIDE [id number] 14:33:00* Test Item Value Reference Range Interpretation Comme nts GLUCOSE BEDSIDE TESTING (jenelle t code = GLUBED) 86 MG/DL 70-119 N GLUCOSE BEDSIDE [id number] 12:05:00* Test Item Value Reference Range Interpretation Comme nts GLUCOSE BEDSIDE TESTING (jenelle t code = GLUBED) 180 MG/DL 70-119 H GLUCOSE BEDSIDE [id number] 08:09:00* Test Item Value Reference Range Interpretation Comme nts GLUCOSE BEDSIDE TESTING (jenelle t code = GLUBED) 132 MG/DL 70-119 H - CT HEAD/BRAIN W/O [id number] 07:17:[facility] 1965 Sex: M Patient Name: BRIGHT SALAZAR Unit No: [id number] EXAMS: CPT CODE: [id number] CT HEAD/BRAIN W/O CONT 37711 EXAM: - CT HEAD/BRAIN W/O CONT Location code:C3 HISTORY: 57 years -old Male with ABRASION L HEAD FROM FALL TECHNIQUE: Axial CT images from the skull base to the vertex without intravenous contrast.Coronal and sagittal reformatted images were created from the data set. One or more of the following dose reduction techniques were used: Automated exposure control, adjustment of the mA and/or kV according to patient size, and/or utilization of iterative reconstruction technique. COMPARISON: 10/12/2022 FINDINGS: Area of recent infarction involving the right parietal and temporal lobe is again demonstrated similar to prior study. Previously demonstrated tiny amount of petechial hemorrhage on MRIis not well appreciated. No new or developing intracranial hemorrhage demonstrated. No new area of infarction demonstrated. No hydrocephalus. No other changes compared to prior exam. IMPRESSION: 1. Similar appearance of recent right temporoparietal MCA distribution infarction. Petechial hemorrhagenoted on prior MRI is not well demonstrated. No new area of hemorrhage identified. at 0717 Reported and signed by: Bright Swartz M.D. CC:Ezra Austin MD Dictated Date/Time: 10/12/2022 (716) Technologist: RONNIE WANG CTDI: DLP: Trnscrpt: 10/12/2022 (716) [email or web address] [facility] NAME: BRIGHT SALAZAR MEDICAL IMAGING PHYS: SANLU.Cara Ezra Austin MD [address] [place] [address] : 1965 AGE: 57 SEX: Jasmin [place] [id number] LOC: B.278 1 PHONE #: [phone] EXAM DATE: 10/12/2022 STATUS: ADM IN FAX #: [phone] RAD #: D/C DT PAGE 1 Signed Report Patient Name: BRIGHT SALAZAR Unit No: [id number] EXAMS: CPT CODE: [id number] CT HEAD/BRAIN W/O CONT 75100 (Continued) Orig Print D/T: S: 10/12/2022 (0721) [facility] NAME: BRIGHT SALAZAR MEDICAL IMAGING PHYS: Ezra Jara MD [address] [place] [address] BLVD : 1965 AGE: 57 SEX: Jasmin [place] [id number] LOC: B.278 1PHONE #: [phone] EXAM DATE: 10/12/2022 STATUS: ADM IN FAX #: [phone] RAD #: D/C DT PAGE 2Signed ReportBASIC METABOLIC PANEL 2022-10-12 05:10:00* Test Item Value Reference Range Interpretation Comme nts SODIUM (test code = NA) 133.0 mmol/L 133-144 N POTASSIUM (test code = K) 3.8 mmol/L 3.5-5.1 N CHLORIDE (test code = CL) 101 mmol/L 95-105 N CARBON DIOXIDE (test code = CO2) 28 mmol/L 21-32 N ANION GAP (test code = GAP) 4.0 GAP calc 4.0-15.0 N GLUCOSE (test code = GLU) 145 MG/DL 70-110 H BLOOD UREA NITROGEN (test code = BUN) 13 MG/DL 7-18 N GLOMERULAR FILTRATION RATE (test code = GFR) 105 estGFR >60 The Glomerular Filtration Rate is a calculated parameterbased on serum Creatinine, patient age and sex. GFR valuesless than 60 mL/min/1.73 square meters are indicative ofChronic Kidney Disease. Values less than 15 mL/min/1.73square meters indicate Kidney failure. The calculation forGFR is based on the CKD-EPI (2020) calculation. This formulais race indifferent and is the recommended formula for GFRby the National Kidney Foundation for Adults.The GFR will not calculate if the sex is unknown or if thepatient's age is <18 years. CREATININE (test code = CREAT) 0.76 MG/DL 0.55-1.30 N Results may be depressed if patient is takingN-Acetylcysteine (NAC) and Metamizole (Dipyrone). CALCIUM (test code = CA) 8.8 MG/DL 8.5-10.1 N INDEX HEMOLYSIS (test code = HEMINDEX) 1 NORMAL <10 MG Index/DL See_Comment [Automated message] The system which generated this result transmitted reference range: 1 NORMAL. The reference range was not used to interpret this result as normal/abnormal. INDEX ICTERIC (test code = ICTINDEX) 1 NORMAL <2 MG Index/DL See_Comment [Automated message] The system which generated this result transmitted reference range: 1 NORMAL. The reference range was not used to interpret this result as normal/abnormal. INDEX LIPEMIA (test code = LIPINDEX) 1 NORMAL <50 MG Index/DL See_Comment [Automated message] The system which generated this result transmitted reference range: 1 NORMAL. The reference range was not used to interpret this result as normal/abnormal. PENDING RECEIPT OF SPECIMEN PER [id number] AT 10/07/22 [id number] 05:10:00* Test Item Value Reference Range Interpretation Comme nts PHOSPHOROUS (test code = PHOS) 2.5 MG/DL 2.5-4.9 N PENDING RECEIPT OF SPECIMEN PER [id number] AT 10/07/22 [id number] 05:10:00* Test Item Value Reference Range Interpretation Comme nts MAGNESIUM (test code = MAG) 1.7 MG/DL 1.6-2.6 N PENDING RECEIPT OF SPECIMEN PER [id number] AT 10/07/22 0830CBC W/AUTO DIFF 2022-10-12 04:54:00* Test Item Value Reference Range Interpretation Comme nts WHITE BLOOD CELL (test code = WBC) 12.5 K/mm3 4.1-12.1 H RED BLOOD CELL (test code = RBC) 4.88 M/mm3 3.8-5.5 N HEMOGLOBIN (test code = HGB) 13.7 G/DL 10.6-15.8 N HEMATOCRIT (test code = HCT) 40.4 % 31.8-47.4 N MEAN CELL VOLUME (test code = MCV) 82.8 fL 80.1-101.1 N MEAN CELL HGB (test code = MCH) 28.1 pg 25.3-35.3 N MEAN CELL HGB CONCETRATION ( test code = MCHC) 33.9 G/DL 32.7-35.1 N RED CELL DISTRIBUTION WIDTH (test code = RDW) 13.2 % 12.2-16.4 N RED CELL DISTRIBUTION WIDTH (test code = RDW-SD) 39.6 fL 35.1-43.9 N PLATELET COUNT (test code = PLT) 364 K/mm3 155-337 H MEAN PLATELET VOLUME (test c ode = MPV) 9.3 fL 7.6-10.4 N GRANULOCYTE % (test code = GR%) 75.7 % 37.8-82.6 N IMMATURE GRANULOCYTE % (test code = IG%) 0.5 % 0.0-2.0 N LYMPHOCYTE % (test code = LY%) 12.8 % 14.1-45.4 L MONOCYTE % (test code = MO%) 9.2 % 2.5-11.7 N EOSINOPHIL % (test code = EO%) 1.0 % 0.0-6.2 N BASOPHIL % (test code = BA%) 0.8 % 0.0-2.6 N NUCLEATED RBC % (test code = NRBC%) 0.0 /100WBC% 0.0-1.0 N GRANULOCYTE # (test code = GR#) 9.44 k/mm3 2.0-13.7 N IMMATURE GRANULOCYTE # (test code = IG#) 0.06 K/mm3 0.00-0.03 H LYMPHOCYTE # (test code = LY#) 1.59 K/mm3 0.6-3.8 N MONOCYTE # (test code = MO#) 1.15 K/mm3 0.11-0.59 H EOSINOPHIL # (test code = EO#) 0.13 K/mm3 0.0-0.4 N BASOPHIL # (test code = BA#) 0.10 K/mm3 0.0-0.1 N NUCLEATED RBC # (test code = NRBC#) 0.00 K/mm3 0.00-0.05 N - CT HEAD/BRAIN W/O [id number] 01:33:00 [facility] 1965 Sex: M Patient Name: BRIGHT SALAZAR Unit No: [id number] EXAMS: CPT CODE: [id number] CT HEAD/BRAIN W/O CONT [id number] Location: CT head, 10/12/22 COMPARISON EXAMS:MRI imaging of the brain of 10/07/22 and in the head CT exam of the 10 04 2022 TECHNIQUE: CT examination of the brain was performed without contrast on a helical scanner. Scanning conducted from skull base to vertex in the axial plane acquiring con tiguous 5mm slice thickness . The examination was performed on a updated helical CT scanner utilizing low-dose radiation technique. Automatic exposure control timing was utilized to minimize radiation dose. The DLP is 770.89 mGy- cm CLINICAL HISTORY: Confusion FINDINGS: Relatively acute/subacute moderate sized right MCA infarct again seen with slightly more well-defined margins and gyral based hypodensity even seen on the prior head CT exam. There is a small amount of gyriform hemorrhage not clearly seen on the prior head CT exam but similar in extent and discussed on the MRI findings. There is no gross findings for hemorrhagic transformation rate. The size of the infarct appears very similar to the prior exams. It is centered along the posterior division of right MCA territory involving the right temporal parietal region. There is sparing of the proximal right MCA territory There is noevolving mass effect or midline shift. No compromise of the basilar cisterns a new areas territorial infarction. IMPRESSION: Normal maturation of a moderate size acute/subacute right MCA infarct. Small amount of gyriform hemorrhage not seen on the prior head CT exam but noted and commented upon on the MRI exam appearing similar in extent.. Size of the infarct similar to the prior studies and without evolving mass effect or midline shift at 0133 Reported and signed by: Kiki Soto M.D. CC: Ezra Austin MD Dictated Date/Time: 10/12/2022 (132) Technologist: RONNIE WANG CTDI: DLP: Trnscrpt: 10/12/2022 (132) [email or web address] RUFINA Beyer NAME: BRIGHT SALAZAR MEDICAL IMAGING PHYS: Ezra Jara MD [address] [place] [address] BLVD : 1965 AGE: 57 SEX: FREDDIE JUNIOR [facility] [id number] LOC: B.278 1 PHONE #: [phone] EXAM DATE: 10/12/2022 STATUS: ADM IN FAX #: [phone] RAD #: D/C DT PAGE 1 Signed Report Patient Name: BRIGHT SALAZAR Unit No: [id number] EXAMS: CPT CODE: [id number] CT HEAD/BRAIN W/O CONT [id number] (Continued) Orig Print D/T: S: 10/12/2022 (0450) RUFINA Beyer NAME: BRIGHT SALAZAR MEDICAL IMAGING PHYS: Ezra Jara MD [address] [place] [address] BLVDDOB: 1965 AGE: 57 SEX: aJsmin [place] [id number] LOC: B.278 1 PHONE #: [phone] EXAM DATE: 10/12/2022 STATUS: ADM IN FAX #: [phone] RAD #: D/C DT PAGE 2 Signed ReportGLUCOSE BEDSIDE [id number] 15:41:00* Test Item Value Reference Range Interpretation Comme nts GLUCOSE BEDSIDE TESTING (jenelle t code = GLUBED) 187 MG/DL 70-119 H GLUCOSE BEDSIDE [id number] 11:31:00* Test Item Value Reference Range Interpretation Comme nts GLUCOSE BEDSIDE TESTING (jenelle t code = GLUBED) 123 MG/DL 70-119 H BASIC METABOLIC [id number] 08:22:00* Test Item Value Reference Range Interpretation Comme nts SODIUM (test code = NA) 133.0 mmol/L 133-144 N POTASSIUM (test code = K) 3.6 mmol/L 3.5-5.1 N CHLORIDE (test code = CL) 101 mmol/L 95-105 N CARBON DIOXIDE (test code = CO2) 28 mmol/L 21-32 N ANION GAP (test code = GAP) 4.0 GAP calc 4.0-15.0 N GLUCOSE (test code = GLU) 99 MG/DL 70-110 N BLOOD UREA NITROGEN (test code = BUN) 14 MG/DL 7-18 N GLOMERULAR FILTRATION RATE (test code = GFR) 110 estGFR >60 The Glomerular Filtration Rate is a calculated parameterbased on serum Creatinine, patient age and sex. GFR valuesless than 60 mL/min/1.73 square meters are indicative ofChronic Kidney Disease. Values less than 15 mL/min/1.73square meters indicate Kidney failure. The calculation forGFR is based on the CKD-EPI (202) calculation. This formulais race indifferent and is the recommended formula for GFRby the National Kidney Foundation for Adults.The GFR will not calculate if the sex is unknown or if thepatient's age is <18 years. CREATININE (test code = CREAT) 0.65 MG/DL 0.55-1.30 N Results may be depressed if patient is takingN-Acetylcysteine (NAC) and Metamizole (Dipyrone). CALCIUM (test code = CA) 8.7 MG/DL 8.5-10.1 N INDEX HEMOLYSIS (test code = HEMINDEX) 1 NORMAL <10 MG Index/DL See_Comment [Automated message] The system which generated this result transmitted reference range: 1 NORMAL. The reference range was not used to interpret this result as normal/abnormal. INDEX ICTERIC (test code = ICTINDEX) 1 NORMAL <2 MG Index/DL See_Comment [Automated message] The system which generated this result transmitted reference range: 1 NORMAL. The reference range was not used to interpret this result as normal/abnormal. INDEX LIPEMIA (test code = LIPINDEX) 1 NORMAL <50 MG Index/DL See_Comment [Automated message] The system which generated this result transmitted reference range: 1 NORMAL. The reference range was not used to interpret this result as normal/abnormal. [id number] 08:22:00* Test Item Value Reference Range Interpretation Comme nts PHOSPHOROUS (test code = PHOS) 2.9 MG/DL 2.5-4.9 N [id number] 08:22:00* Test Item Value Reference Range Interpretation Comme nts MAGNESIUM (test code = MAG) 1.8 MG/DL 1.6-2.6 N CBC W/AUTO [id number] 08:01:00* Test Item Value Reference Range Interpretation Comme nts WHITE BLOOD CELL (test code = WBC) 13.3 K/mm3 4.1-12.1 H RED BLOOD CELL (test code = RBC) 4.91 M/mm3 3.8-5.5 N HEMOGLOBIN (test code = HGB) 13.8 G/DL 10.6-15.8 N HEMATOCRIT (test code = HCT) 40.6 % 31.8-47.4 N MEAN CELL VOLUME (test code = MCV) 82.7 fL 80.1-101.1 N MEAN CELL HGB (test code = MCH) 28.1 pg 25.3-35.3 N MEAN CELL HGB CONCETRATION ( test code = MCHC) 34.0 G/DL 32.7-35.1 N RED CELL DISTRIBUTION WIDTH (test code = RDW) 13.5 % 12.2-16.4 N RED CELL DISTRIBUTION WIDTH (test code = RDW-SD) 40.4 fL 35.1-43.9 N PLATELET COUNT (test code = PLT) 353 K/mm3 155-337 H MEAN PLATELET VOLUME (test c ode = MPV) 9.7 fL 7.6-10.4 N GRANULOCYTE % (test code = GR%) 68.8 % 37.8-82.6 N IMMATURE GRANULOCYTE % (test code = IG%) 0.4 % 0.0-2.0 N LYMPHOCYTE % (test code = LY%) 16.3 % 14.1-45.4 N MONOCYTE % (test code = MO%) 12.4 % 2.5-11.7 H EOSINOPHIL % (test code = EO%) 1.6 % 0.0-6.2 N BASOPHIL % (test code = BA%) 0.5 % 0.0-2.6 N NUCLEATED RBC % (test code = NRBC%) 0.0 /100WBC% 0.0-1.0 N GRANULOCYTE # (test code = GR#) 9.16 k/mm3 2.0-13.7 N IMMATURE GRANULOCYTE # (test code = IG#) 0.06 K/mm3 0.00-0.03 H LYMPHOCYTE # (test code = LY#) 2.17 K/mm3 0.6-3.8 N MONOCYTE # (test code = MO#) 1.66 K/mm3 0.11-0.59 H EOSINOPHIL # (test code = EO#) 0.22 K/mm3 0.0-0.4 N BASOPHIL # (test code = BA#) 0.07 K/mm3 0.0-0.1 N NUCLEATED RBC # (test code = NRBC#) 0.00 K/mm3 0.00-0.05 N GLUCOSE BEDSIDE [id number] 06:37:00* Test Item Value Reference Range Interpretation Comme nts GLUCOSE BEDSIDE TESTING (jenelle t code = GLUBED) 105 MG/DL 70-119 N GLUCOSE BEDSIDE [id number] 19:54:00* Test Item Value Reference Range Interpretation Comme nts GLUCOSE BEDSIDE TESTING (jenelle t code = GLUBED) 135 MG/DL 70-119 H GLUCOSE BEDSIDE [id number] 15:15:00* Test Item Value Reference Range Interpretation Comme nts GLUCOSE BEDSIDE TESTING (jenelle t code = GLUBED) 112 MG/DL 70-119 N GLUCOSE BEDSIDE [id number] 11:17:00* Test Item Value Reference Range Interpretation Comme nts GLUCOSE BEDSIDE TESTING (jenelle t code = GLUBED) 140 MG/DL 70-119 H BASIC METABOLIC [id number] 07:49:00* Test Item Value Reference Range Interpretation Comme nts SODIUM (test code = NA) 135.0 mmol/L 133-144 N POTASSIUM (test code = K) 3.8 mmol/L 3.5-5.1 N CHLORIDE (test code = CL) 102 mmol/L 95-105 N CARBON DIOXIDE (test code = CO2) 26 mmol/L 21-32 N ANION GAP (test code = GAP) 7.0 GAP calc 4.0-15.0 N GLUCOSE (test code = GLU) 104 MG/DL 70-110 N BLOOD UREA NITROGEN (test code = BUN) 18 MG/DL 7-18 N GLOMERULAR FILTRATION RATE (test code = GFR) 109 estGFR >60 The Glomerular Filtration Rate is a calculated parameterbased on serum Creatinine, patient age and sex. GFR valuesless than 60 mL/min/1.73 square meters are indicative ofChronic Kidney Disease. Values less than 15 mL/min/1.73square meters indicate Kidney failure. The calculation forGFR is based on the CKD-EPI (202) calculation. This formulais race indifferent and is the recommended formula for GFRby the National Kidney Foundation for Adults.The GFR will not calculate if the sex is unknown or if thepatient's age is <18 years. CREATININE (test code = CREAT) 0.67 MG/DL 0.55-1.30 N Results may be depressed if patient is takingN-Acetylcysteine (NAC) and Metamizole (Dipyrone). CALCIUM (test code = CA) 8.6 MG/DL 8.5-10.1 N INDEX HEMOLYSIS (test code = HEMINDEX) 1 NORMAL <10 MG Index/DL See_Comment [Automated message] The system which generated this result transmitted reference range: 1 NORMAL. The reference range was not used to interpret this result as normal/abnormal. INDEX ICTERIC (test code = ICTINDEX) 1 NORMAL <2 MG Index/DL See_Comment [Automated message] The system which generated this result transmitted reference range: 1 NORMAL. The reference range was not used to interpret this result as normal/abnormal. INDEX LIPEMIA (test code = LIPINDEX) 1 NORMAL <50 MG Index/DL See_Comment [Automated message] The system which generated this result transmitted reference range: 1 NORMAL. The reference range was not used to interpret this result as normal/abnormal. [id number] 07:49:00* Test Item Value Reference Range Interpretation Comme nts PHOSPHOROUS (test code = PHOS) 2.9 MG/DL 2.5-4.9 N [id number] 07:49:00* Test Item Value Reference Range Interpretation Comme nts MAGNESIUM (test code = MAG) 1.7 MG/DL 1.6-2.6 N CBC W/AUTO [id number] 07:45:00* Test Item Value Reference Range Interpretation Comme nts WHITE BLOOD CELL (test code = WBC) 14.5 K/mm3 4.1-12.1 H RED BLOOD CELL (test code = RBC) 4.52 M/mm3 3.8-5.5 N HEMOGLOBIN (test code = HGB) 13.7 G/DL 10.6-15.8 N HEMATOCRIT (test code = HCT) 37.1 % 31.8-47.4 N MEAN CELL VOLUME (test code = MCV) 82.1 fL 80.1-101.1 N MEAN CELL HGB (test code = MCH) 30.3 pg 25.3-35.3 N MEAN CELL HGB CONCETRATION ( test code = MCHC) 36.9 G/DL 32.7-35.1 H RED CELL DISTRIBUTION WIDTH (test code = RDW) 13.6 % 12.2-16.4 N RED CELL DISTRIBUTION WIDTH (test code = RDW-SD) 40.4 fL 35.1-43.9 N PLATELET COUNT (test code = PLT) 320 K/mm3 155-337 N MEAN PLATELET VOLUME (test c ode = MPV) 10.2 fL 7.6-10.4 N GRANULOCYTE % (test code = GR%) 74.4 % 37.8-82.6 N IMMATURE GRANULOCYTE % (test code = IG%) 0.3 % 0.0-2.0 N LYMPHOCYTE % (test code = LY%) 11.8 % 14.1-45.4 L MONOCYTE % (test code = MO%) 12.5 % 2.5-11.7 H EOSINOPHIL % (test code = EO%) 0.6 % 0.0-6.2 N BASOPHIL % (test code = BA%) 0.4 % 0.0-2.6 N NUCLEATED RBC % (test code = NRBC%) 0.0 /100WBC% 0.0-1.0 N GRANULOCYTE # (test code = GR#) 10.76 k/mm3 2.0-13.7 N IMMATURE GRANULOCYTE # (test code = IG#) 0.05 K/mm3 0.00-0.03 H LYMPHOCYTE # (test code = LY#) 1.70 K/mm3 0.6-3.8 N MONOCYTE # (test code = MO#) 1.80 K/mm3 0.11-0.59 H EOSINOPHIL # (test code = EO#) 0.08 K/mm3 0.0-0.4 N BASOPHIL # (test code = BA#) 0.06 K/mm3 0.0-0.1 N NUCLEATED RBC # (test code = NRBC#) 0.00 K/mm3 0.00-0.05 N GLUCOSE BEDSIDE [id number] 06:19:00* Test Item Value Reference Range Interpretation Comme nts GLUCOSE BEDSIDE TESTING (jenelle t code = GLUBED) 112 MG/DL 70-119 N GLUCOSE BEDSIDE [id number] 19:48:00* Test Item Value Reference Range Interpretation Comme nts GLUCOSE BEDSIDE TESTING (jenelle t code = GLUBED) 160 MG/DL 70-119 H BASIC METABOLIC [id number] 19:42:00* Test Item Value Reference Range Interpretation Comme nts SODIUM (test code = NA) 133.0 mmol/L 133-144 N POTASSIUM (test code = K) 4.1 mmol/L 3.5-5.1 N CHLORIDE (test code = CL) 101 mmol/L 95-105 N CARBON DIOXIDE (test code = CO2) 26 mmol/L 21-32 N ANION GAP (test code = GAP) 6.0 GAP calc 4.0-15.0 N GLUCOSE (test code = GLU) 170 MG/DL 70-110 H BLOOD UREA NITROGEN (test code = BUN) 17 MG/DL 7-18 N GLOMERULAR FILTRATION RATE (test code = GFR) 104 estGFR >60 The Glomerular Filtration Rate is a calculated parameterbased on serum Creatinine, patient age and sex. GFR valuesless than 60 mL/min/1.73 square meters are indicative ofChronic Kidney Disease. Values less than 15 mL/min/1.73square meters indicate Kidney failure. The calculation forGFR is based on the CKD-EPI (2020) calculation. This formulais race indifferent and is the recommended formula for GFRby the National Kidney Foundation for Adults.The GFR will not calculate if the sex is unknown or if thepatient's age is <18 years. CREATININE (test code = CREAT) 0.78 MG/DL 0.55-1.30 N Results may be depressed if patient is takingN-Acetylcysteine (NAC) and Metamizole (Dipyrone). CALCIUM (test code = CA) 8.9 MG/DL 8.5-10.1 N INDEX HEMOLYSIS (test code = HEMINDEX) 1 NORMAL <10 MG Index/DL See_Comment [Automated message] The system which generated this result transmitted reference range: 1 NORMAL. The reference range was not used to interpret this result as normal/abnormal. INDEX ICTERIC (test code = ICTINDEX) 1 NORMAL <2 MG Index/DL See_Comment [Automated message] The system which generated this result transmitted reference range: 1 NORMAL. The reference range was not used to interpret this result as normal/abnormal. INDEX LIPEMIA (test code = LIPINDEX) 1 NORMAL <50 MG Index/DL See_Comment [Automated message] The system which generated this result transmitted reference range: 1 NORMAL. The reference range was not used to interpret this result as normal/abnormal. CBC W/AUTO [id number] 19:28:00* Test Item Value Reference Range Interpretation Comme nts WHITE BLOOD CELL (test code = WBC) 10.7 K/mm3 4.1-12.1 N RED BLOOD CELL (test code = RBC) 4.93 M/mm3 3.8-5.5 N HEMOGLOBIN (test code = HGB) 13.9 G/DL 10.6-15.8 N HEMATOCRIT (test code = HCT) 40.9 % 31.8-47.4 N MEAN CELL VOLUME (test code = MCV) 83.0 fL 80.1-101.1 N MEAN CELL HGB (test code = MCH) 28.2 pg 25.3-35.3 N MEAN CELL HGB CONCETRATION ( test code = MCHC) 34.0 G/DL 32.7-35.1 N RED CELL DISTRIBUTION WIDTH (test code = RDW) 13.5 % 12.2-16.4 N RED CELL DISTRIBUTION WIDTH (test code = RDW-SD) 40.2 fL 35.1-43.9 N PLATELET COUNT (test code = PLT) 312 K/mm3 155-337 N MEAN PLATELET VOLUME (test c ode = MPV) 9.6 fL 7.6-10.4 N GRANULOCYTE % (test code = GR%) 75.0 % 37.8-82.6 N IMMATURE GRANULOCYTE % (test code = IG%) 0.4 % 0.0-2.0 N LYMPHOCYTE % (test code = LY%) 12.1 % 14.1-45.4 L MONOCYTE % (test code = MO%) 11.6 % 2.5-11.7 N EOSINOPHIL % (test code = EO%) 0.7 % 0.0-6.2 N BASOPHIL % (test code = BA%) 0.2 % 0.0-2.6 N NUCLEATED RBC % (test code = NRBC%) 0.0 /100WBC% 0.0-1.0 N GRANULOCYTE # (test code = GR#) 8.05 k/mm3 2.0-13.7 N IMMATURE GRANULOCYTE # (test code = IG#) 0.04 K/mm3 0.00-0.03 H LYMPHOCYTE # (test code = LY#) 1.30 K/mm3 0.6-3.8 N MONOCYTE # (test code = MO#) 1.25 K/mm3 0.11-0.59 H EOSINOPHIL # (test code = EO#) 0.07 K/mm3 0.0-0.4 N BASOPHIL # (test code = BA#) 0.02 K/mm3 0.0-0.1 N NUCLEATED RBC # (test code = NRBC#) 0.00 K/mm3 0.00-0.05 N PENDING RECEIPT OF SPECIMEN PER B.LAB.KTP AT 10/09/22 0957PENDING RECEIPT OF SPECIMEN PER B.LAB.FT AT 10/08/22 2109GLUCOSE BEDSIDE [id number] 17:02:00 * Test Item Value Reference Range Interpretation Comme [facility] GLUCOSE BEDSIDE TESTING (jenelle t code = GLUBED) 153 MG/DL 70-119 H GLUCOSE BEDSIDE [id number] 12:49:00* Test Item Value Reference Range Interpretation Comme [facility] GLUCOSE BEDSIDE TESTING (jenelle t code = GLUBED) 185 MG/DL 70-119 H [id number] 09:48:00* Test Item Value Reference Range Interpretation Comme nts SURGICAL (test code = SR) RUN DATE: 10/09/22 [place] - LAB PAGE 1 RUN TIME: 948 Specimen Inquiry RUN USER: INTERFACE PATIENT: BRIGHT SALAZAR LOC: CYDNEY3 U #: [id number] AGE/SX: 57/M ROOM: [place] [address] RE10/04/22REG DR: Yung Loomis MD : 65 BED: W DIS: STATUS: ADM IN TLOC: SPEC #: [id number] RECD: 10/08/22 STATUS: KIM NISH #: [id number] ANIYAH: 10/08/22-1307 [facility] DR: Yung Loomis MD ENTERED: 10/08/22142 SP TYPE: SURGICAL OTHR DR: No Primary or Family Physician Self Referred Kiel Gardiner MD, Ali MDORDERED: 65821, 94987, ANATOMIC SPEC COPIES TO: No Primary or Family Physician Self Referred Kiel Gardiner MD [address] [place] [address] Kiel Hammond MD [address] [place] [address] [address] [place] [id number] Yung Loomis MD [address] [place] [id number] HISTOLOGY: TISSUE ID BLK PCS MO LEV / PROCEDURE DISPOSITION ____ ___ ___ ___ ___ KEN[address] PL DECAL A 1 1 PROCEDURES: 40837 (10/08/22-1419) 13179 (10/08/22-1419) TISSUES: A. CAROTID PLAQUE WITH DECAL FINAL DIAGNOSIS PLAQUE, RIGHT CAROTID ARTERY, ENDARTERECTOMY: - Calcified atherosclerotic plaque CONTINUED ON NEXT PAGE RUN DATE: 10/09/22 [place] - LAB PAGE 2 RUN TIME: 948 Specimen Inquiry RUN USER: INTERFACE SPEC #: [id number] PATIENT: BRIGHT SALAZAR #[id number] (Continued) GROSS DESCRIPTION Received in formalin and labeled with the patient's name, medical record number and "rightcarotid artery plaque" is a 2.2 cm length x 0.7 cm diameter tubular-shaped portion ofyellow calcified atheromatous plaque material. Blocking Machine Tender sections are submitted inA1, following decalcification. DWV/tb MICROSCOPIC DESCRIPTION Unless otherwise indicated, a microscopic examination has been performed on all specimensand the findings are incorporated in the final diagnosis. CLINICAL INFORMATION Right internal carotid artery thrombus, stroke Signed SIGNATURE ON FILE Dillon-Marilee 10/09/22 0948 END OF REPORT GLUCOSE BEDSIDE [id number] 08:25:00* Test Item Value Reference Range Interpretation Comme nts GLUCOSE BEDSIDE TESTING (jenelle t code = GLUBED) 185 MG/DL 70-119 H BASIC METABOLIC [id number] 05:35:00* Test Item Value Reference Range Interpretation Comme nts SODIUM (test code = NA) 130.0 mmol/L 133-144 L POTASSIUM (test code = K) 4.5 mmol/L 3.5-5.1 N CHLORIDE (test code = CL) 101 mmol/L 95-105 N CARBON DIOXIDE (test code = CO2) 24 mmol/L 21-32 N ANION GAP (test code = GAP) 5.0 GAP calc 4.0-15.0 N GLUCOSE (test code = GLU) 196 MG/DL 70-110 H BLOOD UREA NITROGEN (test code = BUN) 19 MG/DL 7-18 H GLOMERULAR FILTRATION RATE (test code = GFR) 104 estGFR >60 The Glomerular Filtration Rate is a calculated parameterbased on serum Creatinine, patient age and sex. GFR valuesless than 60 mL/min/1.73 square meters are indicative ofChronic Kidney Disease. Values less than 15 mL/min/1.73square meters indicate Kidney failure. The calculation forGFR is based on the CKD-EPI (202) calculation. This formulais race indifferent and is the recommended formula for GFRby the National Kidney Foundation for Adults.The GFR will not calculate if the sex is unknown or if thepatient's age is <18 years. CREATININE (test code = CREAT) 0.79 MG/DL 0.55-1.30 N Results may be depressed if patient is takingN-Acetylcysteine (NAC) and Metamizole (Dipyrone). CALCIUM (test code = CA) 8.7 MG/DL 8.5-10.1 N INDEX HEMOLYSIS (test code = HEMINDEX) 1 NORMAL <10 MG Index/DL See_Comment [Automated message] The system which generated this result transmitted reference range: 1 NORMAL. The reference range was not used to interpret this result as normal/abnormal. INDEX ICTERIC (test code = ICTINDEX) 1 NORMAL <2 MG Index/DL See_Comment [Automated message] The system which generated this result transmitted reference range: 1 NORMAL. The reference range was not used to interpret this result as normal/abnormal. INDEX LIPEMIA (test code = LIPINDEX) 1 NORMAL <50 MG Index/DL See_Comment [Automated message] The system which generated this result transmitted reference range: 1 NORMAL. The reference range was not used to interpret this result as normal/abnormal. [id number] 05:35:00* Test Item Value Reference Range Interpretation Comme nts PHOSPHOROUS (test code = PHOS) 3.1 MG/DL 2.5-4.9 N [id number] 05:35:00* Test Item Value Reference Range Interpretation Comme nts MAGNESIUM (test code = MAG) 1.7 MG/DL 1.6-2.6 N CBC W/AUTO [id number] 04:50:00* Test Item Value Reference Range Interpretation Comme nts WHITE BLOOD CELL (test code = WBC) 12.6 K/mm3 4.1-12.1 H RED BLOOD CELL (test code = RBC) 4.72 M/mm3 3.8-5.5 N HEMOGLOBIN (test code = HGB) 13.2 G/DL 10.6-15.8 N HEMATOCRIT (test code = HCT) 38.4 % 31.8-47.4 N MEAN CELL VOLUME (test code = MCV) 81.4 fL 80.1-101.1 N MEAN CELL HGB (test code = MCH) 28.0 pg 25.3-35.3 N MEAN CELL HGB CONCETRATION ( test code = MCHC) 34.4 G/DL 32.7-35.1 N RED CELL DISTRIBUTION WIDTH (test code = RDW) 13.2 % 12.2-16.4 N RED CELL DISTRIBUTION WIDTH (test code = RDW-SD) 39.1 fL 35.1-43.9 N PLATELET COUNT (test code = PLT) 312 K/mm3 155-337 N MEAN PLATELET VOLUME (test c ode = MPV) 10.6 fL 7.6-10.4 H GRANULOCYTE % (test code = GR%) 83.1 % 37.8-82.6 H IMMATURE GRANULOCYTE % (test code = IG%) 0.3 % 0.0-2.0 N LYMPHOCYTE % (test code = LY%) 6.4 % 14.1-45.4 L MONOCYTE % (test code = MO%) 10.0 % 2.5-11.7 N EOSINOPHIL % (test code = EO%) 0.0 % 0.0-6.2 N BASOPHIL % (test code = BA%) 0.2 % 0.0-2.6 N NUCLEATED RBC % (test code = NRBC%) 0.0 /100WBC% 0.0-1.0 N GRANULOCYTE # (test code = GR#) 10.46 k/mm3 2.0-13.7 N IMMATURE GRANULOCYTE # (test code = IG#) 0.04 K/mm3 0.00-0.03 H LYMPHOCYTE # (test code = LY#) 0.80 K/mm3 0.6-3.8 N MONOCYTE # (test code = MO#) 1.26 K/mm3 0.11-0.59 H EOSINOPHIL # (test code = EO#) 0.00 K/mm3 0.0-0.4 N BASOPHIL # (test code = BA#) 0.02 K/mm3 0.0-0.1 N NUCLEATED RBC # (test code = NRBC#) 0.00 K/mm3 0.00-0.05 N GLUCOSE BEDSIDE [id number] 22:02:00* Test Item Value Reference Range Interpretation Comme nts GLUCOSE BEDSIDE TESTING (jenelle t code = GLUBED) 263 MG/DL 70-119 H GLUCOSE BEDSIDE [id number] 16:14:00* Test Item Value Reference Range Interpretation Comme nts GLUCOSE BEDSIDE TESTING (jenelle t code = GLUBED) 186 MG/DL 70-119 H GLUCOSE BEDSIDE [id number] 14:34:00* Test Item Value Reference Range Interpretation Comme nts GLUCOSE BEDSIDE TESTING (jenelle t code = GLUBED) 138 MG/DL 70-119 H - CT ABDOMEN W/O [id number] 08:18:00 [facility] 1965 Sex: M Patient Name: BRIGHT SALAZAR Unit No: [id number] EXAMS: CPT CODE: [id number] CT ABDOMEN W/O CONTRAST [address]15 CT ABDOMEN WITHOUT CONTRAST LOCATION: T18 INDICATION: Fall Noncontrast axial CT images obtained at 5 mm slice thickness. Up to date CT and radiation dose reduction techniques were utilized. Automatic exposure control was also used. Limited study. Pelvis was not included on this exam. Patient's arms overlie the abdomen resulting in artifact. Trace left pleural effusion with bibasilar atelectasis, left greater than right. Gallbladder surgically absent. Punctate calcifications in kidneys withouthydronephrosis. The unopacified liver, spleen, pancreas, adrenal glands, IVC and abdominal aorta are unremarkable. The visualized bowel loops and appendix are normal. No free fluid or free air. IMPRESSION: Trace left pleural effusion with bibasilar atelectasis. No acute findings in the abdomen. at 0818 Reported and signed by: Silas Dick D.O. CC: Aurora MENCHACAN Jeremie Dictated Date/Time: 10/08/2022 (817) Technologist: Denise Jarrett CTDI: DLP: Trnscrpt: 10/08/2022 (817) Suman RUFINA Beyer [facility] PH[facility]: [address]ZALO [address] 1965 AGE: 57SEX: Jasmin [place] [id number] LOC: B.ICU14 W PHONE #: [phone] EXAM DATE: 10/08/2022 STATUS: ADM IN FAX #: [phone] RAD #: D/C DT PAGE 1 Signed Report Patient Name: BRIGHT SALAZAR Unit No: [id number] EXAMS: CPT CODE: [id number] CT ABDOMEN W/O CONTRAST 04919 (Continued) Orig Print D/T: S: 10/08/2022 (820) [facility] [place] NAME: BRIGHT SALAZAR [facility] PHYS: GONZALO ChaoAurora [address] : 1965 AGE: 57 SEX: Jasmin [place] [address] LOC: B.ICU14 W PHONE #: [phone] EXAM DATE: 10/08/2022 STATUS: ADM IN FAX #: [phone] RAD #: D/C DT PAGE 2 Signed Report- XR CHEST 1 V 2022-10-08 07:58:00 [facility] : 1965 Sex: M FAX:Kiel Gardiner MD [phone] [place]: St: ADM FAX: JennieKristin Castellanos APRN Patient Name: BRIGHT SALAZAR Unit No: [id number] EXAMS: CPT CODE: [id number] XR CHEST 1 V 66039 - XR CHEST 1 V INDICATION:Fall LOCATION: T18 Comparison 10/04/2022 Development of bibasilar atelectasis with no pneumothorax or significant effusion. Heart size stable status post CABG. No displaced rib fractures are seen. IMPRESSION: Development of bibasilar atelectasis. at 0758 R eported and signed by: Silas Dick D.O. CC: Kristin Schneider Dictated Date/Time: 10/08/2022 (0758)Technologist: Lala Mireles Transcribed Date/Time: 10/08/2022 (0758) By: Suman Orig Print D/T: S: 10/08/2022 (0801) RUFINA Beyer NAME: BRIGHT SALAZAR [facility] PHYS: [id number] - JennieKristin Castellanos APRN [address] [place] [address] BLVD : 1965 AGE: 57 SEX: [place] [id number] LOC: B.ICU14 W PHONE #: [phone] EXAM DATE: 10/08/2022 STATUS: ADM IN FAX #: [phone] RAD NO: DC Dt: PAGE 1 Signed Report THROMBOPLASTIN TIME [id number] 06:42:00* Test Item Value Reference Range Interpretation Comments THROMBOPLASTIN TIME PARTIAL (test code = PTT) 50.0 SECONDS 24-37.7 H THERAPEUTIC RANG E FOR UNFRACTIONATED HEPARIN = 50.5-83.6 SEC This test is not recommended to monitor low molecularweight heparin or danaparoid. Order LMWH test COLLECTION THROUGH LINES THAT HAVE BEEN PREVIOUSLY FLUSHEDWITH HEPARIN SHOULD BE AVOIDED DUE TO POSSIBLE HEPARINCONTAMINATION RECOLLECTIONGLUCOSE BEDSIDE [id number] 06:27:00* Test Item Value Reference Range Interpretation Comme nts GLUCOSE BEDSIDE TESTING (jenelle t code = GLUBED) 95 MG/DL 70-119 N BASIC METABOLIC [id number] 04:58:00* Test Item Value Reference Range Interpretation Comme nts SODIUM (test code = NA) 129.0 mmol/L 133-144 L POTASSIUM (test code = K) 3.9 mmol/L 3.5-5.1 N CHLORIDE (test code = CL) 99 mmol/L 95-105 N CARBON DIOXIDE (test code = CO2) 24 mmol/L 21-32 N ANION GAP (test code = GAP) 6.0 GAP calc 4.0-15.0 N GLUCOSE (test code = GLU) 114 MG/DL 70-110 H BLOOD UREA NITROGEN (test code = BUN) 14 MG/DL 7-18 N GLOMERULAR FILTRATION RATE (test code = GFR) 111 estGFR >60 The Glomerular Filtration Rate is a calculated parameterbased on serum Creatinine, patient age and sex. GFR valuesless than 60 mL/min/1.73 square meters are indicative ofChronic Kidney Disease. Values less than 15 mL/min/1.73square meters indicate Kidney failure. The calculation forGFR is based on the CKD-EPI (2020) calculation. This formulais race indifferent and is the recommended formula for GFRby the National Kidney Foundation for Adults.The GFR will not calculate if the sex is unknown or if thepatient's age is <18 years. CREATININE (test code = CREAT) 0.63 MG/DL 0.55-1.30 N Results may be depressed if patient is takingN-Acetylcysteine (NAC) and Metamizole (Dipyrone). CALCIUM (test code = CA) 8.7 MG/DL 8.5-10.1 N INDEX HEMOLYSIS (test code = HEMINDEX) 1 NORMAL <10 MG Index/DL See_Comment [Automated message] The system which generated this result transmitted reference range: 1 NORMAL. The reference range was not used to interpret this result as normal/abnormal. INDEX ICTERIC (test code = ICTINDEX) 1 NORMAL <2 MG Index/DL See_Comment [Automated message] The system which generated this result transmitted reference range: 1 NORMAL. The reference range was not used to interpret this result as normal/abnormal. INDEX LIPEMIA (test code = LIPINDEX) 1 NORMAL <50 MG Index/DL See_Comment [Automated message] The system which generated this result transmitted reference range: 1 NORMAL. The reference range was not used to interpret this result as normal/abnormal. [id number] 04:58:00* Test Item Value Reference Range Interpretation Comme nts PHOSPHOROUS (test code = PHOS) 3.0 MG/DL 2.5-4.9 N [id number] 04:58:00* Test Item Value Reference Range Interpretation Comme nts MAGNESIUM (test code = MAG) 1.8 MG/DL 1.6-2.6 N CBC W/AUTO [id number] 04:56:00* Test Item Value Reference Range Interpretation Comme nts WHITE BLOOD CELL (test code = WBC) 8.3 K/mm3 4.1-12.1 N RED BLOOD CELL (test code = RBC) 5.20 M/mm3 3.8-5.5 N HEMOGLOBIN (test code = HGB) 14.5 G/DL 10.6-15.8 N HEMATOCRIT (test code = HCT) 42.6 % 31.8-47.4 N MEAN CELL VOLUME (test code = MCV) 81.9 fL 80.1-101.1 N MEAN CELL HGB (test code = MCH) 27.9 pg 25.3-35.3 N MEAN CELL HGB CONCETRATION ( test code = MCHC) 34.0 G/DL 32.7-35.1 N RED CELL DISTRIBUTION WIDTH (test code = RDW) 13.3 % 12.2-16.4 N RED CELL DISTRIBUTION WIDTH (test code = RDW-SD) 39.8 fL 35.1-43.9 N PLATELET COUNT (test code = PLT) 304 K/mm3 155-337 N MEAN PLATELET VOLUME (test c ode = MPV) 10.4 fL 7.6-10.4 N GRANULOCYTE % (test code = GR%) 58.9 % 37.8-82.6 N IMMATURE GRANULOCYTE % (test code = IG%) 0.5 % 0.0-2.0 N LYMPHOCYTE % (test code = LY%) 23.5 % 14.1-45.4 N MONOCYTE % (test code = MO%) 14.1 % 2.5-11.7 H EOSINOPHIL % (test code = EO%) 2.2 % 0.0-6.2 N BASOPHIL % (test code = BA%) 0.8 % 0.0-2.6 N NUCLEATED RBC % (test code = NRBC%) 0.0 /100WBC% 0.0-1.0 N GRANULOCYTE # (test code = GR#) 4.86 k/mm3 2.0-13.7 N IMMATURE GRANULOCYTE # (test code = IG#) 0.04 K/mm3 0.00-0.03 H LYMPHOCYTE # (test code = LY#) 1.94 K/mm3 0.6-3.8 N MONOCYTE # (test code = MO#) 1.16 K/mm3 0.11-0.59 H EOSINOPHIL # (test code = EO#) 0.18 K/mm3 0.0-0.4 N BASOPHIL # (test code = BA#) 0.07 K/mm3 0.0-0.1 N NUCLEATED RBC # (test code = NRBC#) 0.00 K/mm3 0.00-0.05 N GLUCOSE BEDSIDE [id number] 23:02:00* Test Item Value Reference Range Interpretation Comme nts GLUCOSE BEDSIDE TESTING (jenelle t code = GLUBED) 141 MG/DL 70-119 H THROMBOPLASTIN TIME [id number] 21:28:00* Test Item Value Reference Range Interpretation Comments THROMBOPLASTIN TIME PARTIAL (test code = PTT) 38.0 SECONDS 24-37.7 H THERAPEUTIC RANG E FOR UNFRACTIONATED HEPARIN = 50.5-83.6 SEC This test is not recommended to monitor low molecularweight heparin or danaparoid. Order LMWH test COLLECTION THROUGH LINES THAT HAVE BEEN PREVIOUSLY FLUSHEDWITH HEPARIN SHOULD BE AVOIDED DUE TO POSSIBLE HEPARINCONTAMINATION Comments to Psychiatry Teacher: .ANTICOAGULANT THERAPY [Y,N]: YESANTICOAGULANT [H,C]: HEPARINGLUCOSE BEDSIDE [id number] 16:33:00* Test Item Value Reference Range Interpretation Comme nts GLUCOSE BEDSIDE TESTING (jenelle t code = GLUBED) 185 MG/DL 70-119 H THROMBOPLASTIN TIME [id number] 16:08:00* Test Item Value Reference Range Interpretation Comments THROMBOPLASTIN TIME PARTIAL (test code = PTT) 39.9 SECONDS 24-37.7 H THERAPEUTIC RANG E FOR UNFRACTIONATED HEPARIN = 50.5-83.6 SEC This test is not recommended to monitor low molecularweight heparin or danaparoid. Order LMWH test COLLECTION THROUGH LINES THAT HAVE BEEN PREVIOUSLY FLUSHEDWITH HEPARIN SHOULD BE AVOIDED DUE TO POSSIBLE HEPARINCONTAMINATION PENDING RECEIPT OF SPECIMEN PER [id number] AT 10/07/22 1226Is this a LINE draw? NANTICOAGULANT THERAPY [Y,N]: YESANTICOAGULANT [H,C]: HEPARINPLT RESPONSE TO [id number] 16:08:00* Test Item Value Reference Range Interpretation Comme nts PLT RESPONSE TO P2Y12 (test code = PLAVRES) 166 PRU See_Comment PRU Results Inte rpretation: Normal individuals not taking P2Y12 (pre-drug) 182-335 PRU Evidence of P2Y12 receptor blockade <182 PRU Appropriate response to anti-platelet therapyfor cardiology patients <208 PRU Test results are in P2Y12 Reaction Units (PRU) whichindicate the amount of ADP-mediated aggregation specific tothe platelet P2Y12 receptor and is used to measure theeffects of anti-platelet drugs to this receptor, such asclopidogrel (Plavix). The reference range for individualsNOT receiving a P2Y12 inhibitor is 182-335 PRU. PRU levelsless than 182 are indicative of an anti-platelet effect dueto P2Y12 receptor blockade, Literature suggests that a PRUvalue less than 208 is an appropriate response toanti-platlelet therapy for cardiology patients (Refernce: Jeevan et al Circulation 2011:154:7288-2732). Optimaltherapeutic and pre-surgical PRU targets have not beenestablished.Test results are reported in P2Y12 Reaction Units (PRU).PRU reference range is 194-418 PRU. Values <194 PRU arespecific evidence of a P2Y12 inhibitor effect. Results may be affected if the patient is taking Reopro orintegrilin.Integrelin must not be taken within 48 hours of testing.Reopro must not be taken within 14 days of testing. Patients with a HCT of <33% OR >52% could affect testperformance. [Automated message] The system which generated this result transmitted reference range: (). The reference range was not used to interpret this result as normal/abnormal. PENDING RECEIPT OF SPECIMEN PER [id number] AT 10/07/22 1226Is this a LINE draw? NANTICOAGULANT THERAPY [Y,N]: YESANTICOAGULANT [H,C]: HEPARIN- MRI BRAIN W/O [id number] 14:20:00 [facility] : 1965 Sex: M FAX:Kiel Gardiner MD [phone] [place]: St: [facility] FAX: Kiel Hammond MD [phone] Patient Name: BRIGHT SALAZAR Unit No: [id number] EXAMS: CPT CODE: [id number] MRI BRAIN W/O CONTRAST 44913 EXAM: MRI of the Brain without contrast Location: H24 HISTORY: Stroke, R CCA ruptured plaque with thrombus COMPARISON: Correlation with CT from 10/04/2022 TECHNIQUE: Axial T1, T2, FLAIR, T2 gradient, diffusion with ADC mapping and coronalT2 weighted images of the brain and brainstem were obtained without contrast. FINDINGS: Motion artifact limits the sensitivity interpretation. Diffusion abnormality is identified within the right parietal and temporal lobes as well as the posterior right insular cortex with concomitant mild hypointensity on ADC map. There is associated T2 signal abnormality. Findings are compatible with acute/subacute ischemic infarct. Punctate foci of susceptibility artifact are identified in the infarcted region in the right parietal cortex likely representing small petechial hemorrhagic transformation. Nolarge hemorrhagic collection is identified.. No further foci of susceptibility artifact are identified.. There is mass effect on the right lateral ventricle. There is no midline shift.. No mass lesions or extra-axial fluid collections are seen. Few scattered foci of T2/FLAIR abnormalities are notedin the subcortical and periventricular white matter and are non-specific. The posterior cranial fossa structures are normal. Normal signal voids are identified in the intracranial arterial vasculature and dural venous sinuses. The paranasal sinuses, mastoid air cells and orbits are within normal limits. There is partly visualized lesion within the right parotid gland and other characterized on CTneck. 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 IMPRESSION: 1. Acute/early subacute ischemic infarct in involving the right parietal and temporal lobes and insular cortex. Small punctate petechial blood products are noted within the right parietal cortex. No large hemorrhagic transformation is seen. 2. Chronic small vessel ischemic white matter disease. 3. Partly visualized lesions within the right parotid gland, better visualized on recent CT of the neck. Surgical consultation recommended. [facility] [place] NAME: BRIGHT [facility] PHYS: Kiel Clemons MD [address] [place] [address] BLVD : 1965 AGE: 57 SEX: Jasmin [place], [place] [address] [facility] [id number] LOC:B.ICU14 W PHONE #: [phone] EXAM DATE: 10/07/2022 STATUS: ADM IN FAX #: [phone] RAD NO: DCDt: PAGE 1 Signed Report (CONTINUED) FAX: Kiel Gardiner MD [phone] [place]: St: ADM FAX: Kiel Hammond MD [phone] Patient Name: BRIGHT SALAZAR Unit No: [id number] EXAMS: CPT CODE: [id number] MRI BRAIN W/O CONTRAST 53165 (Continued) at 1420 Reported and signed by: Lazarus Nevarez M.D. CC: Kiel Hmamond MD Dictated Date/Time: 10/07/2022 (1419)Technologist: Stepan Transcribed Date/Time: 10/07/2022 (1419) By: CriseldaALFelix Orig Print D/T: S: 10/07/2022 (1422) RUFINA Beyer NAME: BRIGHT SALAZAR [facility] PHYS: Kiel Clemons MD [address] [place] [address] BL : 1965 AGE: 57 SEX: Jasmin [place], [place] [id number] LOC: B.ICU14 W PHONE #: [phone] EXAM DATE: 10/07/2022 STATUS: ADM IN FAX #: [phone] RAD NO: DC Dt: PAGE 2 Signed ReportGLUCOSE BEDSIDE [id number] 12:50:00* Test Item Value Reference Range Interpretation Comme nts GLUCOSE BEDSIDE TESTING (jenelle t code = GLUBED) 172 MG/DL 70-119 H GLUCOSE BEDSIDE [id number] 08:52:00* Test Item Value Reference Range Interpretation Comme nts GLUCOSE BEDSIDE TESTING (jenelle t code = GLUBED) 142 MG/DL 70-119 H THROMBOPLASTIN TIME [id number] 07:03:00* Test Item Value Reference Range Interpretation Comments THROMBOPLASTIN TIME PARTIAL (test code = PTT) 75.9 SECONDS 24-37.7 H THERAPEUTIC RANG E FOR UNFRACTIONATED HEPARIN = 50.5-83.6 SEC This test is not recommended to monitor low molecularweight heparin or danaparoid. Order LMWH test COLLECTION THROUGH LINES THAT HAVE BEEN PREVIOUSLY FLUSHEDWITH HEPARIN SHOULD BE AVOIDED DUE TO POSSIBLE HEPARINCONTAMINATION ANTICOAGULANT THERAPY [Y,N]: YESANTICOAGULANT [H,C]: HEPARINBASIC METABOLIC [id number] 05:25:00* Test Item Value Reference Range Interpretation Comme nts SODIUM (test code = NA) 133.0 mmol/L 133-144 N POTASSIUM (test code = K) 3.6 mmol/L 3.5-5.1 N CHLORIDE (test code = CL) 100 mmol/L 95-105 N CARBON DIOXIDE (test code = CO2) 26 mmol/L 21-32 N ANION GAP (test code = GAP) 7.0 GAP calc 4.0-15.0 N GLUCOSE (test code = GLU) 126 MG/DL 70-110 H BLOOD UREA NITROGEN (test code = BUN) 14 MG/DL 7-18 N GLOMERULAR FILTRATION RATE (test code = GFR) 106 estGFR >60 The Glomerular Filtration Rate is a calculated parameterbased on serum Creatinine, patient age and sex. GFR valuesless than 60 mL/min/1.73 square meters are indicative ofChronic Kidney Disease. Values less than 15 mL/min/1.73square meters indicate Kidney failure. The calculation forGFR is based on the CKD-EPI (202) calculation. This formulais race indifferent and is the recommended formula for GFRby the National Kidney Foundation for Adults.The GFR will not calculate if the sex is unknown or if thepatient's age is <18 years. CREATININE (test code = CREAT) 0.73 MG/DL 0.55-1.30 N Results may be depressed if patient is takingN-Acetylcysteine (NAC) and Metamizole (Dipyrone). CALCIUM (test code = CA) 8.7 MG/DL 8.5-10.1 N INDEX HEMOLYSIS (test code = HEMINDEX) 1 NORMAL <10 MG Index/DL See_Comment [Automated message] The system which generated this result transmitted reference range: 1 NORMAL. The reference range was not used to interpret this result as normal/abnormal. INDEX ICTERIC (test code = ICTINDEX) 1 NORMAL <2 MG Index/DL See_Comment [Automated message] The system which generated this result transmitted reference range: 1 NORMAL. The reference range was not used to interpret this result as normal/abnormal. INDEX LIPEMIA (test code = LIPINDEX) 1 NORMAL <50 MG Index/DL See_Comment [Automated message] The system which generated this result transmitted reference range: 1 NORMAL. The reference range was not used to interpret this result as normal/abnormal. CBC W/O [id number] 05:01:00* Test Item Value Reference Range Interpretation Comme nts WHITE BLOOD CELL (test code = WBC) 8.8 K/mm3 4.1-12.1 N RED BLOOD CELL (test code = RBC) 5.06 M/mm3 3.8-5.5 N HEMOGLOBIN (test code = HGB) 14.3 G/DL 10.6-15.8 N HEMATOCRIT (test code = HCT) 40.9 % 31.8-47.4 N MEAN CELL VOLUME (test code = MCV) 80.8 fL 80.1-101.1 N MEAN CELL HGB (test code = MCH) 28.3 pg 25.3-35.3 N MEAN CELL HGB CONCETRATION ( test code = MCHC) 35.0 G/DL 32.7-35.1 N RED CELL DISTRIBUTION WIDTH (test code = RDW) 13.2 % 12.2-16.4 N PLATELET COUNT (test code = PLT) 292 K/mm3 155-337 N MEAN PLATELET VOLUME (test c ode = MPV) 10.5 fL 7.6-10.4 H THROMBOPLASTIN TIME [id number] 00:57:00* Test Item Value Reference Range Interpretation Comments THROMBOPLASTIN TIME PARTIAL (test code = PTT) 68.1 SECONDS 24-37.7 H THERAPEUTIC RANG E FOR UNFRACTIONATED HEPARIN = 50.5-83.6 SEC This test is not recommended to monitor low molecularweight heparin or danaparoid. Order LMWH test COLLECTION THROUGH LINES THAT HAVE BEEN PREVIOUSLY FLUSHEDWITH HEPARIN SHOULD BE AVOIDED DUE TO POSSIBLE HEPARINCONTAMINATION Is this a LINE draw? NANTICOAGULANT THERAPY [Y,N]: YESANTICOAGULANT [H,C]: HEPARINGLUCOSE BEDSIDE [id number] 20:57:00* Test Item Value Reference Range Interpretation Comme nts GLUCOSE BEDSIDE TESTING (jenelle t code = GLUBED) 160 MG/DL 70-119 H TROP-I HIGH [id number] 19:17:00* Test Item Value Reference Range Interpretation Comme nts TROP-I HIGH SENSITIVITY (test code = TROPIHS) 21 ng/L 0-45 N CAUTION: Units of the current test methodology (ng/L) differfrom the prior test methodology (ng/mL) by a factor of 1000. 99th Percentile Upper Reference Limit (URL): Females: 54 ng/LMales: 78 ng/L In order to distinguish acute elevations of high sensitivitytroponin from other clinical conditions, the FourthUniversal Definition of Myocardial Infarction stressesclinical assessment and the demonstration of a rise and/orfall in serial troponin results above the URL. Results from different methodologies should not be comparedto one another as quantitative results and URLs may vary bymethod. PT AND [id number] 19:08:00* Test Item Value Reference Range Interpretation Comments PT PATIENT (test code = PTP) 12.2 SECONDS 9.4-12.5 N INTERNATIONAL NORMAL RATIO (test code = INR) 1.08 INR Unit 0.88-1.13 N ----- ---------Therapeutic range for INR is dependent upon the situation.2.0-3.0 Prophylaxis / venous thromboembolism, Treatment of DVT, Acute myocardial infarction stroke prevention, Systemic embolism prevention in fibrillation3.0-4.5 AMI recurrence prevention, Systemic embolism prevention in prosthetic heart 3.0-5.4 AMI mortality reduction THROMBOPLASTIN TIME PARTIAL (test code = PTT) 61.0 SECONDS 24-37.7 H THERAPEUTIC RANG E FOR UNFRACTIONATED HEPARIN = 50.5-83.6 SEC This test is not recommended to monitor low molecularweight heparin or danaparoid. Order LMWH test COLLECTION THROUGH LINES THAT HAVE BEEN PREVIOUSLY FLUSHEDWITH HEPARIN SHOULD BE AVOIDED DUE TO POSSIBLE HEPARINCONTAMINATION Is this a LINE draw? NANTICOAGULANT THERAPY [Y,N]: YESANTICOAGULANT [H,C]: HEPARINGLUCOSE BEDSIDE [id number] 18:59:00* Test Item Value Reference Range Interpretation Comme nts GLUCOSE BEDSIDE TESTING (jenelle t code = GLUBED) 117 MG/DL 70-119 N AB [id number] 14:30:00* Test Item Value Reference Range Interpretation Comme nts AB TREPONEMA (test code = TREPAB) NonReactive Screen NonReactive THROMBOPLASTIN TIME [id number] 13:15:00* Test Item Value Reference Range Interpretation Comments THROMBOPLASTIN TIME PARTIAL (test code = PTT) 48.2 SECONDS 24-37.7 H THERAPEUTIC RANG E FOR UNFRACTIONATED HEPARIN = 50.5-83.6 SEC This test is not recommended to monitor low molecularweight heparin or danaparoid. Order LMWH test COLLECTION THROUGH LINES THAT HAVE BEEN PREVIOUSLY FLUSHEDWITH HEPARIN SHOULD BE AVOIDED DUE TO POSSIBLE HEPARINCONTAMINATION GLUCOSE BEDSIDE [id number] 12:47:00* Test Item Value Reference Range Interpretation Comme nts GLUCOSE BEDSIDE TESTING (jenelle t code = GLUBED) 158 MG/DL 70-119 H AB HIV 1 08:36:00* Test Item Value Reference Range Interpretation Comme nts AB HIV 1 2 (test code = AKS22DH) NonReactive SREEN NR This is a screening test only A Non-Reactive test result does not exclude the possibilityof exposure to or infection with HIV. HIV antibodies and/orantigen may be undetectable in some stages of infection.Currently available assays for the detection of p24 antigenand/or antibodies to HIV-1 and/or HIV-2 may not detect allinfected individuals. HIV-1/HIV-2 differentiation testing will be reflexedautomatically per pathologist approved reflex protocols onall Reactive test results. VITAMIN [id number] 08:24:00* Test Item Value Reference Range Interpretation Comme nts VITAMIN B12 (test code = VITB12) 693 PG/ML 183-986 N FOLIC [id number] 08:24:00* Test Item Value Reference Range Interpretation Comme nts FOLIC ACID (test code = FOL) 18.70 NG/ML 3.10-17.50 H COMPREHENSIVE METABOLIC [id number] 07:52:00* Test Item Value Reference Range Interpretation Comme nts SODIUM (test code = NA) 130.0 mmol/L 133-144 L POTASSIUM (test code = K) 3.6 mmol/L 3.5-5.1 N CHLORIDE (test code = CL) 100 mmol/L 95-105 N CARBON DIOXIDE (test code = CO2) 27 mmol/L 21-32 N ANION GAP (test code = GAP) 3.0 GAP calc 4.0-15.0 L GLUCOSE (test code = GLU) 125 MG/DL 70-110 H BLOOD UREA NITROGEN (test code = BUN) 14 MG/DL 7-18 N GLOMERULAR FILTRATION RATE (test code = GFR) 110 estGFR >60 The Glomerular Filtration Rate is a calculated parameterbased on serum Creatinine, patient age and sex. GFR valuesless than 60 mL/min/1.73 square meters are indicative ofChronic Kidney Disease. Values less than 15 mL/min/1.73square meters indicate Kidney failure. The calculation forGFR is based on the CKD-EPI (202) calculation. This formulais race indifferent and is the recommended formula for GFRby the National Kidney Foundation for Adults.The GFR will not calculate if the sex is unknown or if thepatient's age is <18 years. CREATININE (test code = CREAT) 0.64 MG/DL 0.55-1.30 N Results may be depressed if patient is takingN-Acetylcystein e (NAC) and Metamizole (Dipyrone). TOTAL PROTEIN (test code = PROT) 7.4 G/DL 6.4-8.2 N ALBUMIN (test code = ALB) 2.7 G/DL 3.4-5.0 L ALBUMIN/GLOBULIN RATIO (test code = A/G) 0.6 RATIO 1.2-2.2 L CALCIUM (test code = CA) 8.5 MG/DL 8.5-10.1 N BILIRUBIN TOTAL (test code = BILT) 0.32 MG/DL 0.00-1.00 N BILIRUBIN DIRECT (test code = BILD) 0.15 MG/DL 0.00-0.30 N BILIRUBIN INDIRECT (test code = BILIND) 0.17 MG/DL 0.2-1.3 L SGOT/AST (test code = AST) 29 Unit/L 15-37 N SGPT/ALT (test code = ALT) 34 Unit/L 12-78 N ALKALINE PHOSPHATASE TOTAL (test code = ALKP) 77 Unit/L 45-117 N INDEX HEMOLYSIS (test code = HEMINDEX) 1 NORMAL <10 MG Index/DL See_Comment [Automated message] The system which generated this result transmitted reference range: 1 NORMAL. The reference range was not used to interpret this result as normal/abnormal. INDEX ICTERIC (test code = ICTINDEX) 1 NORMAL <2 MG Index/DL See_Comment [Automated message] The system which generated this result transmitted reference range: 1 NORMAL. The reference range was not used to interpret this result as normal/abnormal. INDEX LIPEMIA (test code = LIPINDEX) 1 NORMAL <50 MG Index/DL See_Comment [Automated message] The system which generated this result transmitted reference range: 1 NORMAL. The reference range was not used to interpret this result as normal/abnormal. LIPID PROFILE (CORONARY RISK)2022-10-06 07:52:00* Test Item Value Reference Range Interpretation Comme nts TRIGLYCERIDES (test code = TRIG) 180 MG/DL 0-150 H BORDERLINE HIGH RISK TRIGLYCERIDE 150-199 MG/DLReference intervals provided by The National CholesterolEducation Program Adult Treatment Panel III (NCEP-ATP III).Results may be depressed if patient is takingN-Acetylcysteine (NAC) and Metamizole (Dipyrone). CHOLESTEROL (test code = CHOL) 147 MG/DL 133-200 N CHOLESTEROL/HDL RATIO (test code = CHOLHDL) 4.90 RATIO See_Comment REFERENCE RANGE: MALE FEMALE 1/2 AVG RISK 3.43 3.27 AVG RISK 4.97 4.44 2X AVG RISK 9.55 7.05 3X AVG RISK 23.39 11.04 [Automated message] The system which generated this result transmitted reference range: 0-. The reference range was not used to interpret this result as normal/abnormal. HDL CHOLESTEROL (test code = HDL) 30 MG/DL 40-59 L Results maybe depressed if patient is taking Metamizole(Dipyrone). NON-HDL CHOLESTEROL (test code = NHDL) 117 mg/dL <130 Patients with CHD or CHD risk LDL: <70 mg/dL nonHDL: <100 mg/dLPatients with 2+ risk factors LDL: <130 mg/dL nonHDL: <160 mg/dLPatients with 0-1 risk factors LDL: <160 mg/dL nonHDL: <190 mg/dL LIPOPROTEIN LDL (test code = LDL) 81 MG/DL 0-129 N LDL/HDL (test code = LDL/HDL) 2.70 Ratio See_Comment N LDL/HDL RISK ASSESSMENT1.47 One-half average3.22 Average5.03 Two times average6.14 Three times average [Automated message] The system which generated this result transmitted reference range: 1.48-3.22 Avg. The reference range was not used to interpret this result as normal/abnormal. [id number] 07:52:00* Test Item Value Reference Range Interpretation Comme nts PHOSPHOROUS (test code = PHOS) 2.8 MG/DL 2.5-4.9 N [id number] 07:52:00* Test Item Value Reference Range Interpretation Comme nts MAGNESIUM (test code = MAG) 1.7 MG/DL 1.6-2.6 N THYROID STIMULATING [id number] 07:52:00* Test Item Value Reference Range Interpretation Comme nts THYROID STIMULATING HORMONE (test code = TSH) 1.280 mc IU/ML 0.340-4.820 N GLYCOSYLATED HEMOGLOBIN (HA1C)2022-10-06 07:32:00* Test Item Value Reference Range Interpretation Comme [facility] GLYCOSYLATED HEMOGLOBIN (HA1 C) (test code = GLYHGB) 10.9 % IS-A1C 4.5-5.6 H ESTIMATED AVERAGE [id number] 07:32:00* Test Item Value Reference Range Interpretation Comme nts ESTIMATED AVERAGE GLUCOSE (t est code = EAG) 266 MG/DLest THROMBOPLASTIN TIME [id number] 07:18:00* Test Item Value Reference Range Interpretation Comments THROMBOPLASTIN TIME PARTIAL (test code = PTT) 40.9 SECONDS 24-37.7 H THERAPEUTIC RANG E FOR UNFRACTIONATED HEPARIN = 50.5-83.6 SEC This test is not recommended to monitor low molecularweight heparin or danaparoid. Order LMWH test COLLECTION THROUGH LINES THAT HAVE BEEN PREVIOUSLY FLUSHEDWITH HEPARIN SHOULD BE AVOIDED DUE TO POSSIBLE HEPARINCONTAMINATION Is this a LINE draw? NANTICOAGULANT THERAPY [Y,N]: YESANTICOAGULANT [H,C]: HEPARINCBC W/AUTO [id number] 07:08:00* Test Item Value Reference Range Interpretation Comme nts WHITE BLOOD CELL (test code = WBC) 6.9 K/mm3 4.1-12.1 N RED BLOOD CELL (test code = RBC) 5.28 M/mm3 3.8-5.5 N HEMOGLOBIN (test code = HGB) 14.6 G/DL 10.6-15.8 N HEMATOCRIT (test code = HCT) 43.7 % 31.8-47.4 N MEAN CELL VOLUME (test code = MCV) 82.8 fL 80.1-101.1 N MEAN CELL HGB (test code = MCH) 27.7 pg 25.3-35.3 N MEAN CELL HGB CONCETRATION ( test code = MCHC) 33.4 G/DL 32.7-35.1 N RED CELL DISTRIBUTION WIDTH (test code = RDW) 13.4 % 12.2-16.4 N RED CELL DISTRIBUTION WIDTH (test code = RDW-SD) 40.0 fL 35.1-43.9 N PLATELET COUNT (test code = PLT) 261 K/mm3 155-337 N MEAN PLATELET VOLUME (test c ode = MPV) 10.3 fL 7.6-10.4 N GRANULOCYTE % (test code = GR%) 60.3 % 37.8-82.6 N IMMATURE GRANULOCYTE % (test code = IG%) 0.4 % 0.0-2.0 N LYMPHOCYTE % (test code = LY%) 24.2 % 14.1-45.4 N MONOCYTE % (test code = MO%) 11.5 % 2.5-11.7 N EOSINOPHIL % (test code = EO%) 2.9 % 0.0-6.2 N BASOPHIL % (test code = BA%) 0.7 % 0.0-2.6 N NUCLEATED RBC % (test code = NRBC%) 0.0 /100WBC% 0.0-1.0 N GRANULOCYTE # (test code = GR#) 4.12 k/mm3 2.0-13.7 N IMMATURE GRANULOCYTE # (test code = IG#) 0.03 K/mm3 0.00-0.03 N LYMPHOCYTE # (test code = LY#) 1.66 K/mm3 0.6-3.8 N MONOCYTE # (test code = MO#) 0.79 K/mm3 0.11-0.59 H EOSINOPHIL # (test code = EO#) 0.20 K/mm3 0.0-0.4 N BASOPHIL # (test code = BA#) 0.05 K/mm3 0.0-0.1 N NUCLEATED RBC # (test code = NRBC#) 0.00 K/mm3 0.00-0.05 N THROMBOPLASTIN TIME [id number] 00:55:00* Test Item Value Reference Range Interpretation Comments THROMBOPLASTIN TIME PARTIAL (test code = PTT) 35.4 SECONDS 24-37.7 N THERAPEUTIC RANG E FOR UNFRACTIONATED HEPARIN = 50.5-83.6 SEC This test is not recommended to monitor low molecularweight heparin or danaparoid. Order LMWH test COLLECTION THROUGH LINES THAT HAVE BEEN PREVIOUSLY FLUSHEDWITH HEPARIN SHOULD BE AVOIDED DUE TO POSSIBLE HEPARINCONTAMINATION Is this a LINE draw? NANTICOAGULANT THERAPY [Y,N]: YESANTICOAGULANT [H,C]: HEPARINGLUCOSE BEDSIDE [id number] 23:09:00* Test Item Value Reference Range Interpretation Comme nts GLUCOSE BEDSIDE TESTING (jenelle t code = GLUBED) 183 MG/DL 70-119 H THYROID STIMULATING [id number] 18:04:00* Test Item Value Reference Range Interpretation Comme nts THYROID STIMULATING HORMONE (test code = TSH) 1.260 mc IU/ML 0.340-4.820 N PT AND [id number] 16:38:00* Test Item Value Reference Range Interpretation Comments PT PATIENT (test code = PTP) 12.4 SECONDS 9.4-12.5 N INTERNATIONAL NORMAL RATIO (test code = INR) 1.10 INR Unit 0.88-1.13 N ----- ---------Therapeutic range for INR is dependent upon the situation.2.0-3.0 Prophylaxis / venous thromboembolism, Treatment of DVT, Acute myocardial infarction stroke prevention, Systemic embolism prevention in fibrillation3.0-4.5 AMI recurrence prevention, Systemic embolism prevention in prosthetic heart 3.0-5.4 AMI mortality reduction THROMBOPLASTIN TIME PARTIAL (test code = PTT) 23.7 SECONDS 24-37.7 L THERAPEUTIC RANG E FOR UNFRACTIONATED HEPARIN = 50.5-83.6 SEC This test is not recommended to monitor low molecularweight heparin or danaparoid. Order LMWH test COLLECTION THROUGH LINES THAT HAVE BEEN PREVIOUSLY FLUSHEDWITH HEPARIN SHOULD BE AVOIDED DUE TO POSSIBLE HEPARINCONTAMINATION PENDING RECEIPT OF SPECIMEN PER G.LAB.PTP AT 10/05/22 1412DRUGS OF ABUSE SCREEN [id number] 16:36:00* Test Item Value Reference Range Interpretation Comments URN COCAINE (test code = COCAURN) NONE DETECTED (NEG) SCcutoff See_Comment [Automated message] The system which generated this result transmitted reference range: <300 NG/ML. The reference range was not used to interpret this result as normal/abnormal. URN CANNABINOIDS (test code = CANNABURN) NONE DETECTED (NEG) SCcutoff See_Comment [Automated message] The system which generated this result transmitted reference range: <50 NG/ML. The reference range was not used to interpret this result as normal/abnormal. URN AMPHETAMINE (test code = AMPHETURN) NONE DETECTED (NEG) SCcutoff See_Comment [Automated message] The system which generated this result transmitted reference range: <1000 NG/ML. The reference range was not used to interpret this result as normal/abnormal. URN BARBITURATE (test code = BARBITURN) NONE DETECTED (NEG) SCcutoff See_Comment [Automated message] The system which generated this result transmitted reference range: <200 NG/ML. The reference range was not used to interpret this result as normal/abnormal. URN BENZODIAZEPINE (test code = BENZOURN) NONE DETECTED (NEG) SCcutoff See_Comment [Automated message] The system which generated this result transmitted reference range: <200 NG/ML. The reference range was not used to interpret this result as normal/abnormal. URN OPIATES (test code = OPIATURN) POSITIVE SCcutoff See_Comment A [Automated message] The system which generated this result transmitted reference range: <300 NG/ML. The reference range was not used to interpret this result as normal/abnormal. URN PHENCYCLIDINE (PCP) (test code = PHENCURN) NONE DETECTED (NEG) SCcutoff See_Comment ------ For all drug screen analytes ------The screen method provides only a preliminary analyticaltest result. A more specific alternate chemical method mustbe used in order to obtain a confirmed analytical result.Gas chromatography/mass spectrometry (GC/MS) is thepreferred confirmatory method. Other chemical confirmationmethods are available. Clinical consideration andprofessional judgement should be applied to any drug ofabuse test result, particularly when preliminary positiveresults are used. [Automated message] The system which generated this result transmitted reference range: <25 NG/ML. The reference range was not used to interpret this result as normal/abnormal. URINALYSIS [id number] 16:30:00* Test Item Value Reference Range Interpretation Comme nts UA COLOR (test code = COLU) YELLOW DESCRIPT YELLOW UA APPEARANCE (test code = APPU) CLEAR DESCRIPT CLEAR UA GLUCOSE DIPSTICK (test code = DGLUU) 300 (3+) mg/dL See_Comment A [Automated message] The system which generated this result transmitted reference range: 0 (NORMAL). The reference range was not used to interpret this result as normal/abnormal. UA BILIRUBIN DIPSTICK (test code = BILU) NEGATIVE (0.0) mg/dL See_Comment [Automated message] The system which generated this result transmitted reference range: (NEG) 0. The reference range was not used to interpret this result as normal/abnormal. UA KETONE DIPSTICK (test code = KETU) NEGATIVE (0) mg/dL See_Comment [Automated message] The system which generated this result transmitted reference range: (NEG) 0. The reference range was not used to interpret this result as normal/abnormal. UA SPECIFIC GRAVITY (test code = SGU) >1.050 SG 1.001-1.035 A UA BLOOD DIPSTICK (test code = ENID) NEGATIVE (0.00) mg/dL See_Comment [Automated message] The system which generated this result transmitted reference range: 0 (NEG). The reference range was not used to interpret this result as normal/abnormal. UA PH DIPSTICK (test code = MARSHALL) 6.0 pH UNITS 4.6-8.0 UA PROTEIN DIPSTICK (test code = PROU) 50 (1+) mg/dL See_Comment A [Automated message] The system which generated this result transmitted reference range: <30 (1+). The reference range was not used to interpret this result as normal/abnormal. UA UROBILINIOGEN DIPSTICK (test code = URO) NORMAL (0) mg/Dl See_Comment [Automated message] The system which generated this result transmitted reference range: <2.0 (1+). The reference range was not used to interpret this result as normal/abnormal. UA NITRITE DIPSTICK (test code = JULIO) NEGATIVE (0) SCREEN NEG UA LEUKOCYTE ESTERASE DIPSTICK (test code = LEUU) NEGATIVE (0) Leuk/mcL See_Comment [Automated message] The system which generated this result transmitted reference range: (NEG) 0. The reference range was not used to interpret this result as normal/abnormal. UA WBC (test code = WBCU) NONE #WBC/HPF 0-3 UA RBC (test code = RBCU) 0-3 #RBC/HPF 0-3 UA SQUAMOUS CELLS (test code = SQU) RARE >0 /UL NONE-SQepi UA MUCUS (test code = MUCU) RARE /LPF NONE UA YEAST (BUDDING) (test code = YEASTUBD) FEW >5 /HPF NONE A PENDING RECEIPT OF SPECIMEN PER G.LAB.PTP AT 10/05/22 1213GLUCOSE BEDSIDE [id number] 15:46:00* Test Item Value Reference Range Interpretation Comme nts GLUCOSE BEDSIDE TESTING (jenelle t code = GLUBED) 171 MG/DL 70-119 H - CT ANGIO [id number] 10:17:00 [facility] 1965 Sex: M Patient Name: BRIGHT SALAZAR Unit No: [id number] EXAMS: CPT CODE: [id number] CT ANGIO HEAD [address] CTA carotids and brain 10/05/2022 10:09 AM CLINICAL INDICATION: Stroke COMPARISON: CT brain 10/04/2022 LOCATION: W1 TECHNIQUE: Axial CT angiographic images of the upper chest, neck, and head were obtained, from which three- dimensional reconstructed images were created. Additional imaging series were createdon an independent workstation using maximum intensity projection and volume rendered technique. This examination was performed according to our departmental dose optimization program, which includesautomated exposure control, adjustment of the mA and/or kV according to patient size, and/or use of iterative reconstruction technique. FINDINGS: There is noncalcified thrombus in the proximal right cervical internal carotid artery. There is no vessel occlusion in the intracranial or extracranial arterial vasculature. There is extracranial atherosclerotic vascular disease without NASCET-quantifiable cervical internal carotid artery stenosis. Intracranially, there is no remarkable stenosis. There is an evolving moderate volume posterior division right middle cerebral artery distribution infarct. There are two separate noncystic lesions in the superficial lobe of the right parotid gland, which measure 24 mm and 18 mm, respectively. There are chronic appearing degenerative changes in the skeleton. There is evidence for prior median sternotomy. IMPRESSION: 1. 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 2. Evolving right middle cerebral artery distribution infarct without mass effect. 3. Indeterminate right parotid lesions, forwhich otolaryngology consultation is recommended. Findings were discussed with Dr. Fischer on 10/05/2022 at 1015. at 1017 Reported and signed by: Regino Ramirez MD CC: Sandip Haro MD Dictated Date/Time: 10/05/2022 (1017) Technologist: MICHELLE Wright(Sherrie)(CT) CTDI: DLP: Trnscrpt: 10/05/2022 (1017) [email or web address] [facility] [place] NAME: BRIGHT SALAZAR [address] [place] [address] Blvd PHYS: Sandip Figueroa MD [place], [place] [address] : 1965 AGE: 57 SEX: M LOC: B.276 1 PHONE #: [phone] EXAM DATE: 10/05/2022 STATUS: ADM IN FAX #: [phone] RAD #: D/C DT PAGE 1 Signed Report Patient Name: BRIGHT SALAZAR Unit No: [id number] EXAMS: CPT CODE: [id number] CT ANGIO HEAD 27782 (Continued)Orig Print D/T: S: 10/05/2022 (1020) [facility] NAME: BRIGHT SALAZAR [address] [place] [address] PHYS: Sandip [place], [place] [address] : 1965 AGE: 57 SEX: M LOC: B.276 1 PHONE #: [phone] EXAM DATE: 10/05/2022 STATUS: ADM IN FAX #: [phone] RAD #: D/C DT PAGE 2 Signed Report- CT ANGIO NECK 2022-10-05 10:17:00 [facility] : 1965 Sex: M Patient Name: BRIGHT SALAZAR Unit No: [id number] EXAMS: CPT CODE: [id number] CT ANGIO NECK [address]19 CTA carotids and brain 10/05/2022 10:09 AM CLINICAL INDICATION: Stroke COMPARISON: CT brain 10/04/2022 LOCATION: W1 TECHNIQUE: Axial CT angiographic images of the upper chest, neck, and head were obtained, from which three- dimensional reconstructed images were created. Additional imaging series were created on an independent workstation using maximum intensity projection and volume rendered technique. This examination was performed according to our departmental dose optimization program, which includesautomated exposure control, adjustment of the mA and/or kV according to patient size, and/or use of iterative reconstruction technique. FINDINGS: There is noncalcified thrombus in the proximal rightcervical internal carotid artery. There is no vessel occlusion in the intracranial or extracranial arterial vasculature. There is extracranial atherosclerotic vascular disease without NASCET-quantifiable cervical internal carotid artery stenosis. Intracranially, there is no remarkable stenosis. There is an evolving moderate volume posterior division right middle cerebral artery distribution infarct. There are two separate noncystic lesions in the superficial lobe of the right parotid gland, which measure 24 mm and 18 mm, respectively. There are chronic appearing degenerative changes in the skeleton. There is evidence for prior median sternotomy. IMPRESSION: 1. 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 2. Evolving right middle cerebral artery distribution infarct without mass effect. 3. Indeterminate right parotid lesions, forwhich otolaryngology consultation is recommended. Findings were discussed with Dr. Fischer on 10/05/2022 at 1015. at 1017 Reported and signed by: Regino Ramirez MD CC: Sandip Haro MD Dictated Date/Time: 10/05/2022 (10 17) Technologist: MICHELLE Wright(R)(CT) CTDI: DLP: Trnscrpt: 10/05/2022 (1017) [email or web address] [facility] NAME: BRIGHT SALAZAR [address] [place] [address] PHYS: Sandip Figueroa MD, [place] [address] : 1965 AGE: 57 SEX: M LOC: B.276 1 PHONE #: [phone] EXAMDATE: 10/05/2022 STATUS: ADM IN FAX #: [phone] RAD #: D/C DT PAGE 1 Signed Report Patient Name: BRIGHT SALAZAR Unit No: [id number] EXAMS: CPT CODE: [id number] CT ANGIO NECK [address] (Continued) Orig Print D/T: S: 10/05/2022 (1020) RUFINA Beyer NAME: [address] PHYS: Sandip Figueroa [place], [place] [address] : 1965 AGE: 57 SEX: M LOC: B.276 1 PHONE #: [phone] EXAM DATE: 10/05/2022 STATUS: ADM IN FAX #: [phone] RAD #: D/C DT PAGE 2 Signed ReportLIPID PROFILE (CORONARY RISK)2022-10-05 06:45:00* Test Item Value Reference Range Interpretation Comments TRIGLYCERIDES (test code = TRIG) 215 MG/DL 0-150 H HIGH RISK TRIGLY CERIDE 200-499 MG/DLReference intervals provided by The National CholesterolEducation Program Adult Treatment Panel III (NCEP-ATP III).Results may be depressed if patient is takingN-Acetylcysteine (NAC) and Metamizole (Dipyrone). CHOLESTEROL (test code = CHOL) 144 MG/DL 133-200 N CHOLESTEROL/HDL RATIO (test code = CHOLHDL) 5.33 RATIO See_Comment REFERENCE RANGE: MALE FEMALE 1/2 AVG RISK 3.43 3.27 AVG RISK 4.97 4.44 2X AVG RISK 9.55 7.05 3X AVG RISK 23.39 11.04 [Automated message] The system which generated this result transmitted reference range: 0-. The reference range was not used to interpret this result as normal/abnormal. HDL CHOLESTEROL (test code = HDL) 27 MG/DL 40-59 L Results maybe depressed if patient is taking Metamizole(Dipyrone). NON-HDL CHOLESTEROL (test code = NHDL) 117 mg/dL <130 Patients with CHD or CHD risk LDL: <70 mg/dL nonHDL: <100 mg/dLPatients with 2+ risk factors LDL: <130 mg/dL nonHDL: <160 mg/dLPatients with 0-1 risk factors LDL: <160 mg/dL nonHDL: <190 mg/dL LIPOPROTEIN LDL (test code = LDL) 74 MG/DL 0-129 N LDL/HDL (test code = LDL/HDL) 2.74 Ratio See_Comment N LDL/HDL RISK ASSESSMENT1.47 One-half average3.22 Average5.03 Two times average6.14 Three times average [Automated message] The system which generated this result transmitted reference range: 1.48-3.22 Avg. The reference range was not used to interpret this result as normal/abnormal. INDEX HEMOLYSIS (test code = HEMINDEX) 1 NORMAL <10 MG Index/DL See_Comment [Automated message] The system which generated this result transmitted reference range: 1 NORMAL. The reference range was not used to interpret this result as normal/abnormal. INDEX ICTERIC (test code = ICTINDEX) 1 NORMAL <2 MG Index/DL See_Comment [Automated message] The system which generated this result transmitted reference range: 1 NORMAL. The reference range was not used to interpret this result as normal/abnormal. INDEX LIPEMIA (test code = LIPINDEX) 1 NORMAL <50 MG Index/DL See_Comment [Automated message] The system which generated this result transmitted reference range: 1 NORMAL. The reference range was not used to interpret this result as normal/abnormal. GLUCOSE BEDSIDE [id number] 06:34:00* Test Item Value Reference Range Interpretation Comme [facility] GLUCOSE BEDSIDE TESTING (jenelle t code = GLUBED) 146 MG/DL 70-119 H GLYCOSYLATED HEMOGLOBIN (HA1C)2022-10-05 06:34:00* Test Item Value Reference Range Interpretation Comme [facility] GLYCOSYLATED HEMOGLOBIN (HA1 C) (test code = GLYHGB) 11.2 % IS-A1C 4.5-5.6 H ESTIMATED AVERAGE [id number] 06:34:00* Test Item Value Reference Range Interpretation Comme [facility] ESTIMATED AVERAGE GLUCOSE (t est code = EAG) 275 MG/DLest - XR TIBIA/FIBULA 2 V [id number] 04:31:00 [facility] : 1965 Sex: M FAX:Kiel Gardiner MD [phone] [place]: St: ADM Patient Name: BRIGHT SALAZAR Unit No: [id number] EXAMS: CPT CODE: [id number] XR TIBIA/FIBUL[place] 2 [place] [address] EXAMINATION: - XR TIBIA/FIBULA 2 V LT CLINICAL INDICATION: Male, 57years old with lt stump infection COMPARISON: None FINDINGS: Two view(s) of the tibia obtained. Joint spaces: Anatomic. Bones: Vyjzw-kyt-inro amputation performed. Soft tissues: Mild subcutaneous edema is present within the distal stump, there is suggestion of minimal subcutaneous air laterally. IMPRESSION: Soft tissue swelling minimal subcutaneous air, no acute bony irregularity. at 0431 Reported and signed by: Jose Tang MD CC: Kiel Gardiner MD Dictated Date/Time: 10/05/2022 (043)Technologist: ABDULLAHI VANESSA (R) Transcribed Date/Time: 10/05/2022 (430) By: [email or web address] Orig Print D/T: S: 10/05/2022 (0434) RUFINA Allene NAME:BRIGHT [facility] PHYS: Kiel Zhong MD [address] [place] [address] BLVD : 1965 AGE: 57 SEX: Jasmin [place], [place] [address] LOC: B.276 1 PHONE #: [phone] EXAM DATE: 10/04/2022 STATUS: ADM IN FAX #: [phone] RAD NO: DC Dt: PAGE 1 Signed ReportGLUCOSE BEDSIDE [id number] 21:23:00* Test Item Value Reference Range Interpretation Comme nts GLUCOSE BEDSIDE TESTING (jenelle t code = GLUBED) 180 MG/DL 70-119 H - CT L-SPINE W/O [id number] 18:02:00 [facility] : 1965 Sex: M Patient Name: BRIGHT SALAZAR Unit No: [id number] EXAMS: CPT CODE: [id number] CT L-SPINE W/O CONTRAST 54304 EXAM: CT CHEST, ABDOMEN, AND PELVIS WITH CONTRAST EXAM: CT THORACIC AND LUMBAR SPINE WITHOUT CONTRAST INDICATION: fall, headache, left rib/abd pain after fall LOCATION: H50 COMPARISON: None available TECHNIQUE: Volumetric CT acquisition of the chest, abdomen, and pelvis with intravenous contrast. Reformatted images of the thoracic and lumbar spine are provided. All CT scans are performed usingradiation dose reduction technique. Technical factors are evaluated and adjusted to insure appropriate moderation of exposure. Automated dose management technology is applied to adjust the radiation dose to minimize exposure while achieving a diagnostic quality image. FINDINGS: Lines and Tubes: None. CHEST: Lower Neck: The visible portions or the lower neck and thyroid are unremarkable. Heart and Great Vessels: Atherosclerotic calcifications are seen in the thoracic aorta and coronary arteries. The heart is normal in size. There is no pericardial effusion. Lymph Nodes: No hilar, mediastinal,axillary or internal mammary lymphadenopathy. Lungs: Calcified granulomas are seen in the right lower lobe. Lungs otherwise clear. Pleura: No pleural effusion or pneumothorax. ABDOMEN AND PELVIS: Hepatobiliary: No focal liver lesion is identified. No intrahepatic or extrahepatic biliary dilatation i s seen. The main portal vein is patent. Gallbladder: Surgically absent Pancreas: Unremarkable. Spleen: Unremarkable. Adrenals: Unremarkable. Kidneys: There is no evidence of hydronephrosis of eitherkidney. No [facility] [place] NAME: [address] PHYS: Sandip Figueroa [place], [place] [address] : 1965 AGE: 57 SEX: M LOC: SEAN PHONE #: [phone] EXAM DATE: 10/04/2022 STATUS: REG ER FAX #: [phone] RAD #: D/C DT PAGE 1 Signed Report(CONTINUED) Patient Name: BRIGHT SALAZAR Unit No: [id number] EXAMS: CPT CODE: [id number] CT L-SPINEW/O CONTRAST 14391 (Continued) solid renal lesion is identified. Contrast is seen in the renal collecting systems and ureters with no abnormal filling defects seen. Bladder/Reproductive system: Evaluation of the bladder is limited, but no obvious bladder abnormality is present. The prostate has unremarkable CT appearance. Gastrointestinal: No bowel obstruction or perienteric inflammation. The appendix is normal. Vascular: Atherosclerotic calcifications are seen within the aorta and branch vessels. Lymphatics: No enlarged lymph nodes by CT size criteria. Peritoneum/Other: No extraluminal air. No extraluminal fluid. Bones and Soft Tissues: No acute fracture or malalignment. Degenerative discdisease is seen from L3 through L5. Osteophytosis is noted throughout the lower thoracic spine. Median sternotomy wires are in place. IMPRESSION: 1. No acute traumatic abnormalities of the chest, abdomen, pelvis, thoracic spine, or lumbar spine. 2. Chronic findings as above. at 1802 Reported and signed by: Ilene Crook MD CC: Sandip Haro MD Dictated Date/Time: 10/04/2022 (1801) Technologist: MICHELLE Wright(Sherrie)(CT) CTDI: DLP: Trnscrpt: 10/04/2022 (1801) [email or web address] [facility] [place] NAME: [address] PHYS: Sandip Figueroa [place], [place] [address] : 1965 AGE: 57 SEX: M LOC: B.ERS PHONE #: [phone] EXAM DATE: 10/04/2022 STATUS: REG ER FAX #: [phone] RAD #: D/C DT PAGE 2 Signed Report Patient Name: BRIGHT SALAZAR Unit No: [id number] EXAMS: CPT CODE: [id number] CT L-SPINE W/O CONTRAST 09257 (Continued) Orig Print D/T: S: 10/04/2022 (1805) [facility] NAME: BRIGHT SALAZAR [address] [place] [address] PHYS: Sandip Figueroa MD [place], [place] [address] : 1965 AGE: 57 SEX: M LOC: B.ERS PHONE #: [phone] EXAM DATE: 10/04/2022 STATUS: REG ER FAX #: [phone] RAD #: D/C DT PAGE 3 Signed Report- CT T-SPINE W/O CONTRAST 2022-10-04 18:02:00 [facility] 1965 Sex: M Patient Name: BRIGHT SALAZAR Unit No: [id number] EXAMS: CPT CODE: [id number] CT T-SPINE W/O CONTRAST 72239 EXAM: CT CHEST, ABDOMEN, AND PELVIS WITH CONTRAST EXAM: CT THORACIC AND LUMBAR SPINE WITHOUT CONTRAST INDICATION: fall, headache, left rib/abd pain after fall LOCATION: H50 COMPARISON: None available TECHNIQUE: Volumetric CT acquisition of the chest, abdomen, and pelvis with intravenous contrast. Reformatted images of the thoracic and lumbar spine are provided. All CT scans are performed usingradiation dose reduction technique. Technical factors are evaluated and adjusted to insure appropriate moderation of exposure. Automated dose management technology is applied to adjust the radiation dose to minimize exposure while achieving a diagnostic quality image. FINDINGS: Lines and Tubes: None. CHEST: Lower Neck: The visible portions or the lower neck and thyroid are unremarkable. Heart and Great Vessels: Atherosclerotic calcifications are seen in the thoracic aorta and coronary arteries. The heart is normal in size. There is no pericardial effusion. Lymph Nodes: No hilar, mediastinal,axillary or internal mammary lymphadenopathy. Lungs: Calcified granulomas are seen in the right lower lobe. Lungs otherwise clear. Pleura: No pleural effusion or pneumothorax. ABDOMEN AND PELVIS: Hepatobiliary: No focal liver lesion is identified. No intrahepatic or extrahepatic biliary dilatationis seen. The main portal vein is patent. Gallbladder: Surgically absent Pancreas: Unremarkable. Spleen: Unremarkable. Adrenals: Unremarkable. Kidneys: There is no evidence of hydronephrosis of eitherkidney. No [facility] [place] NAME: BRIGHT SALAZAR [address] [place] [address] PHYS: Sandip Figueroa [place], [place] [address] : 1965 AGE: 57 SEX: M LOC: DeshaunYOVANY PHONE #: [phone] EXAM DATE: 10/04/2022 STATUS: REG ER FAX #: [phone] RAD #: D/C DT PAGE 1 Signed Report (CONTINUED) Patient Name: BRIGHT SALAZAR Unit No: [id number] EXAMS: CPT CODE: [id number] CT T-SPINEW/O CONTRAST 76652 (Continued) solid renal lesion is identified. Contrast is seen in the renal collecting systems and ureters with no abnormal filling defects seen. Bladder/Reproductive system: Evaluation of the bladder is limited, but no obvious bladder abnormality is present. The prostate has unremarkable CT appearance. Gastrointestinal: No bowel obstruction or perienteric inflammation. The appendix is normal. Vascular: Atherosclerotic calcifications are seen within the aorta and branch vessels. Lymphatics: No enlarged lymph nodes by CT size criteria. Peritoneum/Other: No extraluminal air.No extraluminal fluid. Bones and Soft Tissues: No acute fracture or malalignment. Degenerative disc disease is seen from L3 through L5. Osteophytosis is noted throughout the lower thoracic spine. Median sternotomy wires are in place. IMPRESSION: 1. No acute traumatic abnormalities of the chest, abdomen, pelvis, thoracic spine, or lumbar spine. 2. Chronic findings as above. at 1802 Reported and signed by: Ilene Crook MD CC: Sandip Haro MD Dictated Date/Time: 10/04/2022 (1801) Technologist: MICHELLE Wright(Sherrie)(CT) CTDI: DLP: Trnscrpt: 10/04/2022 (1801) [email or web address] RUFINA [facility] NAME: [address] PHYS: [place] [address] : 1965 AGE: 57 SEX: M LOC: B.ERS PHONE #: [phone] EXAM DATE: 10/04/2022 STATUS: REG ER FAX #: [phone] RAD #: D/C DT PAGE 2 Signed Report Patient Name: BRIGHT SALAZAR [facility] No: [id number] EXAMS: CPT CODE: [id number] CT T-SPINE W/O CONTRAST 87511 (Continued) Orig Print D/T: S: 10/04/2022 (180) RUFINA Beyer NAME: [address] PHYS: Sand[place] [address] : 1965 AGE: 57 SEX: M LOC: B.ERS PHONE #: [phone] EXAM DATE: 10/04/2022 STATUS: REG ER FAX #: [phone] RAD #: D/C DT PAGE 3 Signed Report- CT ABD PELVIS [id number] 18:02:00 [facility] : 1965 Sex: M Patient Name: BRIGHT SALAZAR Unit No: [id number] EXAMS: CPT CODE: [id number] CT ABD PELVIS W/CONT 84294GEWU: CT CHEST, ABDOMEN, AND PELVIS WITH CONTRAST EXAM: CT THORACIC AND LUMBAR SPINE WITHOUT CONTRAST INDICATION: fall, headache, left rib/abd pain after fall LOCATION: H50 COMPARISON: None available TECHNIQUE: Volumetric CT acquisition of the chest, abdomen, and pelvis with intravenous contrast. R eformatted images of the thoracic and lumbar spine are provided. All CT scans are performed using radiation dose reduction technique. Technical factors are evaluated and adjusted to insure appropriate moderation of exposure. Automated dose management technology is applied to adjust the radiation dose to minimize exposure while achieving a diagnostic quality image. FINDINGS: Lines and Tubes: None. CHEST: Lower Neck: The visible portions or the lower neck and thyroid are unremarkable. Heart andGreat Vessels: Atherosclerotic calcifications are seen in the thoracic aorta and coronary arteries.The heart is normal in size. There is no pericardial effusion. Lymph Nodes: No hilar, mediastinal,axillary or internal mammary lymphadenopathy. Lungs: Calcified granulomas are seen in the right lower lobe. Lungs otherwise clear. Pleura: No pleural effusion or pneumothorax. ABDOMEN AND PELVIS: Hepatobiliary: No focal liver lesion is identified. No intrahepatic or extrahepatic biliary dilatation is seen. The main portal vein is patent. Gallbladder: Surgically absent Pancreas: Unremarkable. Spleen: Unremarkable. Adrenals: Unremarkable. Kidneys: There is no evidence of hydronephrosis of either kidney. No [facility] [place] NAME: BRIGHT SALAZAR [address] [place] [address] Blvd PHYS: Sandip Fig[place]ero[place], [place] [address] : 1965 AGE: 57 SEX: M LOC: BYOVANY PHONE #: EXAM DATE: 10/04/2022 STATUS: REG ER FAX #: [phone] RAD #: D/C DT PAGE 1 Signed Report (CONTINUED) Patient Name: BRIGHT SALAZAR Unit No: [id number] EXAMS: CPT CODE: [id number] CT ABD PELVIS W/CONT 58779 (Continued) solid renal lesion is identified. Contrast is seen in the renal collecting systems and ureters with no abnormal filling defects seen. Bladder/Reproductive system: Evaluation of the bladder is limited, but no obvious bladder abnormality is present. The prostate has unremarkable CT appearance. Gastrointestinal: No bowel obstruction or perienteric inflammation. The appendix is normal. Vascular: Atherosclerotic calcifications are seen within the aorta and branch vessels. Lymphatics: No enlarged lymph nodes by CT size criteria. Peritoneum/Other: No extraluminal air. Noextraluminal fluid. Bones and Soft Tissues: No acute fracture or malalignment. Degenerative disc disease is seen from L3 through L5. Osteophytosis is noted throughout the lower thoracic spine. Mediansternotomy wires are in place. IMPRESSION: 1. No acute traumatic abnormalities of the chest, abdomen, pelvis, thoracic spine, or lumbar spine. 2. Chronic findings as above. at 1802 Reported and signed by: Ilene Crook MD CC: Sandip Haro MD Dictated Date/Time: 10/04/2022 (1801) Technologist: MICHELLE Patricia(Sherrie)(CT) CTDI: DLP: Trnscrpt: 10/04/2022 (1801) [email or web address] [facility] NAME: BRIGHT SALAZAR [address] [place] [address] Bl PHYS: Sandip Figueroa MD [place], [place] [address] : 1965 AGE: 57 SEX: M LOC: SEAN PHONE #: [phone] EXAM DATE: 10/04/2022 STATUS: REG ER FAX #: [phone] RAD #: D/C DT PAGE 2 Signed Report Patient Name: BRIGHT SALAZAR Unit No: [id number] EXAMS: CPT CODE: [id number] CT ABD PELVIS W/CONT 73574 (Continued) Orig Print D/T: S: 10/04/2022 (1805) [facility] [place] NAME: BRIGHT SALAZAR [address] [place] [address] Bl PHYS: Sandip Figueroa [place] [address] : 1965 AGE: 57 SEX: M LOC: SEAN PHONE #: [phone] EXAM DATE: 10/04/2022 STATUS: REG ER FAX #: [phone] RAD #: D/C DT PAGE 3 Signed Report- CT CHEST W/[id number] 18:02:00 [facility] : 1965 Sex: M Patient Name: BRIGHT SALAZAR Unit No: [id number] EXAMS: CPT CODE: [id number] CT CHEST W/CONTRAST 66593 EXAM: CT CHEST, ABDOMEN, AND PELVIS WITH CONTRAST EXAM: CT THORACIC AND LUMBAR SPINE WITHOUT CONTRAST INDICATION: fall, headache, left rib/abd pain after fall LOCATION: H50 COMPARISON: None availableTECHNIQUE: Volumetric CT acquisition of the chest, abdomen, and pelvis with intravenous contrast. Reformatted images of the thoracic and lumbar spine are provided. All CT scans are performed using radiation dose reduction technique. Technical factors are evaluated and adjusted to insure appropriatemoderation of exposure. Automated dose management technology is applied to adjust the radiation dose to minimize exposure while achieving a diagnostic quality image. FINDINGS: Lines and Tubes: None.CHEST: Lower Neck: The visible portions or the lower neck and thyroid are unremarkable. Heart and Great Vessels: Atherosclerotic calcifications are seen in the thoracic aorta and coronary arteries. The heart is normal in size. There is no pericardial effusion. Lymph Nodes: No hilar, mediastinal, axillary or internal mammary lymphadenopathy. Lungs: Calcified granulomas are seen in the right lowerlobe. Lungs otherwise clear. Pleura: No pleural effusion or pneumothorax. ABDOMEN AND PELVIS: Hepatobiliary: No focal liver lesion is identified. No intrahepatic or extrahepatic biliary dilatation is seen. The main portal vein is patent. Gallbladder: Surgically absent Pancreas: Unremarkable. Spleen: Unremarkable. Adrenals: Unremarkable. Kidneys: There is no evidence of hydronephrosis of either kidney. No [facility] [place] NAME: BRIGHT SALAZAR [address] [place] [address] Bl PHYS: Sandip Figueroa MD [place], [place] [address] : 1965 AGE: 57 SEX: M LOC: BHarshadERS PHONE #: [phone] EXAM DATE: 10/04/2022 STATUS: REG ER FAX #: [phone] RAD #: D/C DT PAGE 1 Signed Report (CONTINUED) Patient Name: BRIGHT SALAZAR Unit No: [id number] EXAMS: CPT CODE: [id number] CT CHEST W/CONTRAST 70301 (Continued) solid renal lesion is identified. Contrast is seen in the renal collecting systems and ureters with no abnormal filling defects seen. Bladder/Reproductive system: Evaluationof the bladder is limited, but no obvious bladder abnormality is present. The prostate has unremarkable CT appearance. Gastrointestinal: No bowel obstruction or perienteric inflammation. The appendix is normal. Vascular: Atherosclerotic calcifications are seen within the aorta and branch vessels.Lymphatics: No enlarged lymph nodes by CT size criteria. Peritoneum/Other: No extraluminal air. No extraluminal fluid. Bones and Soft Tissues: No acute fracture or malalignment. Degenerative disc disease is seen from L3 through L5. Osteophytosis is noted throughout the lower thoracic spine. Median sternotomy wires are in place. IMPRESSION: 1. No acute traumatic abnormalities of the chest, abdomen, pelvis, thoracic spine, or lumbar spine. 2. Chronic findings as above. at 1802 Reported and signed by: Ilene Crook MD CC: Sandip Haro MD Dictated Date/Time: 10/04/2022 (1801) Technologist: MICHELLE Do)(CT) CTDI: DLP: Trnscrpt: 10/04/2022 (1801) [email or web address] [facility] [place] [facility] PHYS: [place] [address] : 1965 AGE: 57 SEX: MACCT NO: [id number] LOC: B.ERS PHONE #: [phone] EXAM DATE: 10/04/2022 STATUS: REG ER FAX #: [phone] RAD #: D/C DT PAGE 2 Signed Report Patient Name: BRIGHT SALAZAR Unit No: [id number] EXAMS: CPT CODE: [id number] CT CHEST W/CONTRAST 47731 (Continued) Orig Print D/T: S: 10/04/2022 (1804) [facility] [place] NAME: [address] PHYS: [place] [address] : 1965 AGE: 57 SEX: M LOC: B.ERS PHONE #: [phone] EXAMDATE: 10/04/2022 STATUS: REG ER FAX #: [phone] RAD #: D/C DT PAGE 3 Signed Report- CT C-SPINE W/O [id number] 17:49:00[facility] : 1965 Sex: M Patient Name: BRIGHT SALAZAR Unit No: [id number] EXAMS: CPT CODE: [id number] CT C-SPINE W/O CONT 55099 EXAM: - CT HEAD/BRAIN W/O CONT, - CT C-SPINE W/O CONT HISTORY: fall, headache, left rib/abd pain after fall LOCATION: H50 COMPARISON: None available time of interpretation. TECHNIQUE: Axial tomograms through the brain and cervical spine were obtained without intravenous contrast. Coronal and sagittal reformatted images are provided. All CT scans are performed using radiation dose reduction technique. Technical factors are evaluated and adjusted to insure appropriate moderation of exposure. Automated dose management technology is applied to adjust the radiation dose to minimize exposure while achieving a diagnostic quality image. FINDINGS: CT BRAIN: There is loss of the shaw-white matter differentiation seen at a large area in the right parietal lobe. There is no significant mass effect or midline shift. No intracranial hemorrhage or extra-axial collection is identified. The ventricles and basal cisterns are age appropriate. Paranasal sinuses and mastoid air cells are clear. CT C-SPINE: Cervical alignment is maintained. No acute fracture or dislocation. Anterior osteophytosis is notedfrom C3 through C6. The prevertebral soft tissues are within normal limits. The visualized soft tissues of the neck show no significant abnormalities. IMPRESSION: 1. Loss of shaw-white matter differe ntiation and a large area at the right parietal lobe concerning for cerebral infarction. 2. No acute fracture or malalignment of the cervical spine. 3. Multilevel degenerative changes of the cervicalspine. Findings concerning for cerebral infarction were communicated to Sandip Haro MD by telephone on 10/04/2022 5:49 PM. [id number] Reported and signed by: Ilene Crook MD CC: Sandip Haro MD Dictated Date/Time: 10/04/2022 (228) Technologist: MICHELLE Wright(Sherrie)(CT) CTDI: DLP: Trnscrpt: 10/04/2022 (6209) [email or web address] [facility] SALAZ[facility] [address] [place] [address] PHYS: Sandip [place], [place] [address] : 1965 AGE: 57 SEX: M LOC: WendyERS PHONE #: [phone] EXAM DATE: 10/04/2022 STATUS: REG ER FAX #: [phone] RAD #: D/C DT PAGE 1 Signed ReportPatient Name: BRIGHT SALAZAR Unit No: [id number] EXAMS: CPT CODE: [id number] CT C-SPINE W/O CONT 02421 (Continued) Orig Print D/T: S: 10/04/2022 (1752) [facility] [place] NAME: BRIGHT SALAZAR [address] [place] [address] PHYS: TRAVISGREG Jones HaroSandip [place], [place] [address] : 1965 AGE: 57 SEX: M LOC: WendyERS PHONE #: [phone] EXAM DATE: 10/04/2022 STATUS: REG ER FAX #: [phone] RAD #: D/C DT PAGE 2 Signed Report- CT HEAD/BRAIN W/O [id number] 17:49:00 [facility] : 1965 Sex: M Patient Name: BRIGHT SALAZAR Unit No: [id number] EXAMS: CPT CODE: [id number] CT HEAD/BRAIN W/O CONT 02917 EXAM: - CT HEAD/BRAIN W/O CONT, - CT C-SPINE W/O CONT HISTORY: fall, headache, left rib/abd pain after fall LOCATION: H50 COMPARISON: None available time of interpretation. TECHNIQUE: Axial tomograms through the brain and cervical spine were obtained without intravenous contrast. Coronal and sagittal reformatted images are provided. All CT scans are performed using radiation dose reduction technique. Technical factors are evaluated and adjusted to insure appropriate moderation of exposure. Automated dose management technology is applied to adjust the radiation dose to minimize exposure while achieving a diagnostic quality image. FINDINGS: CT BRAIN: There is loss of the shaw-white matter differentiation seen at a large area in the right parietal lobe. There is no significant mass effector midline shift. No intracranial hemorrhage or extra- axial collection is identified. The ventricles and basal cisterns are age appropriate. Paranasal sinuses and mastoid air cells are clear. CT C-SPINE: Cervical alignment is maintained. No acute fracture or dislocation. Anterior osteophytosis is noted from C3 through C6. The prevertebral soft tissues are within normal limits. The visualized softtissues of the neck show no significant abnormalities. IMPRESSION: 1. Loss of shaw-white matter differentiation and a large area at the right parietal lobe concerning for cerebral infarction. 2. No acute fracture or malalignment of the cervical spine. 3. Multilevel degenerative changes of the cervical spine. Findings concerning for cerebral infarction were communicated to Sandip Haro MD by telephone on 10/04/2022 5:49 PM. at 1749 Reported and signed by: Ilene Crook MD CC: Sandip Haro MD Dictated Date/Time: 10/04/2022 (1748) Technologist: MICHELLE Wright(Sherrie)(CT) CTDI: DLP: Trnscrpt: 10/04/2022 (174) [email or web address] [facility] [place] NAME: [address] PHYS: Cris Figuero[place], [place] [address] : 1965 AGE: 57 SEX: M LOC: B.ERS PHONE #: EXAM DATE: 10/04/2022 STATUS: REG ER FAX #: [phone] RAD #: D/C DT PAGE 1 Signed Report Patient Name: BRIGHT SALAZAR Unit No: [id number] EXAMS: CPT CODE: [id number] CT HEAD/BRAIN W/O CONT 08148 (Continued) Orig Print D/T: S: 10/04/2022 (1752) RUFIN[facility] [place] NAME: BRIGHT SALAZAR [address] [place] [address] Blvd PHYS: Sandip Figueroa [place], [place] [address] : 1965 AGE: 57 SEX: MACCT NO: [id number] LOC: BHarshadERS PHONE #: [phone] EXAM DATE: 10/04/2022 STATUS: REG ER FAX #:[phone] RAD #: D/C DT PAGE 2 Signed ReportTROP-I HIGH [id number] 15:32:00* Test Item Value Reference Range Interpretation Comme nts TROP-I HIGH SENSITIVITY (test code = TROPIHS) 24 ng/L 0-45 N CAUTION: Units of the current test methodology (ng/L) differfrom the prior test methodology (ng/mL) by a factor of 1000. 99th Percentile Upper Reference Limit (URL): Females: 54 ng/LMales: 78 ng/L In order to distinguish acute elevations of high sensitivitytroponin from other clinical conditions, the FourthUniversal Definition of Myocardial Infarction stressesclinical assessment and the demonstration of a rise and/orfall in serial troponin results above the URL. Results from different methodologies should not be comparedto one another as quantitative results and URLs may vary bymethod. COMPREHENSIVE METABOLIC [id number] 15:30:00* Test Item Value Reference Range Interpretation Comme nts SODIUM (test code = NA) 130.0 mmol/L 133-144 L POTASSIUM (test code = K) 3.8 mmol/L 3.5-5.1 N CHLORIDE (test code = CL) 99 mmol/L 95-105 N CARBON DIOXIDE (test code = CO2) 25 mmol/L 21-32 N ANION GAP (test code = GAP) 6.0 GAP calc 4.0-15.0 N GLUCOSE (test code = GLU) 290 MG/DL 70-110 H BLOOD UREA NITROGEN (test code = BUN) 19 MG/DL 7-18 H GLOMERULAR FILTRATION RATE (test code = GFR) 100 estGFR >60 The Glomerular Filtration Rate is a calculated parameterbased on serum Creatinine, patient age and sex. GFR valuesless than 60 mL/min/1.73 square meters are indicative ofChronic Kidney Disease. Values less than 15 mL/min/1.73square meters indicate Kidney failure. The calculation forGFR is based on the CKD-EPI (202) calculation. This formulais race indifferent and is the recommended formula for GFRby the National Kidney Foundation for Adults.The GFR will not calculate if the sex is unknown or if thepatient's age is <18 years. CREATININE (test code = CREAT) 0.89 MG/DL 0.55-1.30 N Results may be depressed if patient is takingN-Acetylcystein e (NAC) and Metamizole (Dipyrone). TOTAL PROTEIN (test code = PROT) 8.0 G/DL 6.4-8.2 N ALBUMIN (test code = ALB) 3.0 G/DL 3.4-5.0 L ALBUMIN/GLOBULIN RATIO (test code = A/G) 0.6 RATIO 1.2-2.2 L CALCIUM (test code = CA) 9.2 MG/DL 8.5-10.1 N BILIRUBIN TOTAL (test code = BILT) 0.38 MG/DL 0.00-1.00 N BILIRUBIN DIRECT (test code = BILD) 0.11 MG/DL 0.00-0.30 N BILIRUBIN INDIRECT (test code = BILIND) 0.27 MG/DL 0.2-1.3 N SGOT/AST (test code = AST) 17 Unit/L 15-37 N SGPT/ALT (test code = ALT) 38 Unit/L 12-78 N ALKALINE PHOSPHATASE TOTAL (test code = ALKP) 88 Unit/L 45-117 N INDEX HEMOLYSIS (test code = HEMINDEX) 1 NORMAL <10 MG Index/DL See_Comment [Automated message] The system which generated this result transmitted reference range: 1 NORMAL. The reference range was not used to interpret this result as normal/abnormal. INDEX ICTERIC (test code = ICTINDEX) 1 NORMAL <2 MG Index/DL See_Comment [Automated message] The system which generated this result transmitted reference range: 1 NORMAL. The reference range was not used to interpret this result as normal/abnormal. INDEX LIPEMIA (test code = LIPINDEX) 1 NORMAL <50 MG Index/DL See_Comment [Automated message] The system which generated this result transmitted reference range: 1 NORMAL. The reference range was not used to interpret this result as normal/abnormal. [id number] 15:24:00* Test Item Value Reference Range Interpretation Comme nts MAGNESIUM (test code = MAG) 1.5 MG/DL 1.6-2.6 L CBC W/AUTO [id number] 15:12:00* Test Item Value Reference Range Interpretation Comme nts WHITE BLOOD CELL (test code = WBC) 11.5 K/mm3 4.1-12.1 N RED BLOOD CELL (test code = RBC) 5.43 M/mm3 3.8-5.5 N HEMOGLOBIN (test code = HGB) 15.0 G/DL 10.6-15.8 N HEMATOCRIT (test code = HCT) 43.7 % 31.8-47.4 N MEAN CELL VOLUME (test code = MCV) 80.5 fL 80.1-101.1 N MEAN CELL HGB (test code = MCH) 27.6 pg 25.3-35.3 N MEAN CELL HGB CONCETRATION ( test code = MCHC) 34.3 G/DL 32.7-35.1 N RED CELL DISTRIBUTION WIDTH (test code = RDW) 13.3 % 12.2-16.4 N RED CELL DISTRIBUTION WIDTH (test code = RDW-SD) 38.8 fL 35.1-43.9 N PLATELET COUNT (test code = PLT) 283 K/mm3 155-337 N MEAN PLATELET VOLUME (test c ode = MPV) 9.8 fL 7.6-10.4 N GRANULOCYTE % (test code = GR%) 70.9 % 37.8-82.6 N IMMATURE GRANULOCYTE % (test code = IG%) 0.3 % 0.0-2.0 N LYMPHOCYTE % (test code = LY%) 18.7 % 14.1-45.4 N MONOCYTE % (test code = MO%) 8.8 % 2.5-11.7 N EOSINOPHIL % (test code = EO%) 0.9 % 0.0-6.2 N BASOPHIL % (test code = BA%) 0.4 % 0.0-2.6 N NUCLEATED RBC % (test code = NRBC%) 0.0 /100WBC% 0.0-1.0 N GRANULOCYTE # (test code = GR#) 8.13 k/mm3 2.0-13.7 N IMMATURE GRANULOCYTE # (test code = IG#) 0.04 K/mm3 0.00-0.03 H LYMPHOCYTE # (test code = LY#) 2.15 K/mm3 0.6-3.8 N MONOCYTE # (test code = MO#) 1.01 K/mm3 0.11-0.59 H EOSINOPHIL # (test code = EO#) 0.10 K/mm3 0.0-0.4 N BASOPHIL # (test code = BA#) 0.05 K/mm3 0.0-0.1 N NUCLEATED RBC # (test code = NRBC#) 0.00 K/mm3 0.00-0.05 N - XR CHEST 1 [id number] 14:56:00 [facility] 1965 Sex: M FAX:Sandip Fernández MD [phone] [place]: E St: PRE Patient Name: BRIGHT SALAZAR Unit No: [id number] EXAMS: CPT CODE: [id number] XR CHEST 1 V 55649 HISTORY: Fall, chest pain Location code: B2 FINDINGS: Frontal view of the chest demonstrates normal cardiomediastinal silhouette. The trachea is midline. The lungs are clear. There is no effusion or pneumothorax. The bones are intact. Median sternotomy wires noted. IMPRESSION: No acute pulmonary process. at 7289 Reported and signed by: Grififn Díaz M.D. CC: Sandip Haro MD Dictated Date/Time: 10/04/2022 (3897)Technologist: Elinor Kirby Transcribed Date/Time: 10/04/2022 (6716) By: [email or web address] Orig Print D/T: S: 10/04/2022 (5213) RUFINA Beyer NAME: BRIGHT SALAZAR [address] [place] [address] PHYS: Sandip Figueroa MDNesque[place], [place] [address] : 1965 AGE: 57 SEX: M LOC: SEAN PHONE #: [phone] EXAM DATE: 10/04/2022 STATUS: PRE ER FAX #: [phone] RAD NO: DC Dt: PAGE 1 Signed ReportGLUCOSE BEDSIDE [id number] 11:55:00* Test Item Value Reference Range Interpretation Comme nts GLUCOSE BEDSIDE TESTING (jenelle t code = GLUBED) 206 MG/DL 70-119 H GLUCOSE BEDSIDE [id number] 09:23:00* Test Item Value Reference Range Interpretation Comme nts GLUCOSE BEDSIDE TESTING (jenelle t code = GLUBED) 183 MG/DL 70-119 H BASIC METABOLIC [id number] 05:54:00* Test Item Value Reference Range Interpretation Comme nts SODIUM (test code = NA) 134.0 mmol/L 133-144 N POTASSIUM (test code = K) 4.0 mmol/L 3.5-5.1 N CHLORIDE (test code = CL) 103 mmol/L 95-105 N CARBON DIOXIDE (test code = CO2) 25 mmol/L 21-32 N ANION GAP (test code = GAP) 6.0 GAP calc 4.0-15.0 N GLUCOSE (test code = GLU) 199 MG/DL 70-110 H BLOOD UREA NITROGEN (test code = BUN) 15 MG/DL 7-18 N GLOMERULAR FILTRATION RATE (test code = GFR) 112 estGFR >60 The Glomerular Filtration Rate is a calculated parameterbased on serum Creatinine, patient age and sex. GFR valuesless than 60 mL/min/1.73 square meters are indicative ofChronic Kidney Disease. Values less than 15 mL/min/1.73square meters indicate Kidney failure. The calculation forGFR is based on the CKD-EPI (202) calculation. This formulais race indifferent and is the recommended formula for GFRby the National Kidney Foundation for Adults.The GFR will not calculate if the sex is unknown or if thepatient's age is <18 years. CREATININE (test code = CREAT) 0.61 MG/DL 0.55-1.30 N Results may be depressed if patient is takingN-Acetylcysteine (NAC) and Metamizole (Dipyrone). CALCIUM (test code = CA) 8.9 MG/DL 8.5-10.1 N INDEX HEMOLYSIS (test code = HEMINDEX) 1 NORMAL <10 MG Index/DL See_Comment [Automated message] The system which generated this result transmitted reference range: 1 NORMAL. The reference range was not used to interpret this result as normal/abnormal. INDEX ICTERIC (test code = ICTINDEX) 1 NORMAL <2 MG Index/DL See_Comment [Automated message] The system which generated this result transmitted reference range: 1 NORMAL. The reference range was not used to interpret this result as normal/abnormal. INDEX LIPEMIA (test code = LIPINDEX) 1 NORMAL <50 MG Index/DL See_Comment [Automated message] The system which generated this result transmitted reference range: 1 NORMAL. The reference range was not used to interpret this result as normal/abnormal. GLUCOSE BEDSIDE [id number] 21:15:00* Test Item Value Reference Range Interpretation Comme nts GLUCOSE BEDSIDE TESTING (test code = GLUBED) 221 MG/DL 70-119 H Notified Carlee montiel GLUCOSE BEDSIDE [id number] 18:56:00* Test Item Value Reference Range Interpretation Comme nts GLUCOSE BEDSIDE TESTING (jenelle t code = GLUBED) 242 MG/DL 70-119 H VANCOMYCIN [id number] 15:00:00* Test Item Value Reference Range Interpretation Comme nts VANCOMYCIN TROUGH (test code = VANCT) 14.9 mcG/ML 03-28 N --------- VANCOMYCIN TROUGH MONITORING GOALS:. Vancomycin trough should be obtained prior to 4th dose with Q 8H and Q 12H intervals.. Vancomycin trough should be obtained prior to 3rd dose with Q 24H and Q 48H intervals.. Vancomycin peaks are not recommended for routine monitoring. Indication Trough Goal (mcg/mL) Bacteremia, Endocarditis, 15-20 Osteomyelitis, MRSA pneumonia, healthcare acquired pneumonia, meningitis, cultures with KAREN of 2 for Vancomycin Cellulitis, empirical coverage 03-23 UTI, pediatric patient 03-23 Renal Function Note - Serum creatinine and blood urea nitrogen should be monitored at baseline and every 48H while on Vancomycin. GLUCOSE BEDSIDE [id number] 11:21:00* Test Item Value Reference Range Interpretation Comme nts GLUCOSE BEDSIDE TESTING (jenelle t code = GLUBED) 243 MG/DL 70-119 H GLUCOSE BEDSIDE [id number] 06:21:00* Test Item Value Reference Range Interpretation Comme nts GLUCOSE BEDSIDE TESTING (jenelle t code = GLUBED) 161 MG/DL 70-119 H BASIC METABOLIC [id number] 05:46:00* Test Item Value Reference Range Interpretation Comme nts SODIUM (test code = NA) 134.0 mmol/L 133-144 N POTASSIUM (test code = K) 3.9 mmol/L 3.5-5.1 N CHLORIDE (test code = CL) 104 mmol/L 95-105 N CARBON DIOXIDE (test code = CO2) 24 mmol/L 21-32 N ANION GAP (test code = GAP) 6.0 GAP calc 4.0-15.0 N GLUCOSE (test code = GLU) 165 MG/DL 70-110 H BLOOD UREA NITROGEN (test code = BUN) 14 MG/DL 7-18 N GLOMERULAR FILTRATION RATE (test code = GFR) 116 estGFR >60 The Glomerular Filtration Rate is a calculated parameterbased on serum Creatinine, patient age and sex. GFR valuesless than 60 mL/min/1.73 square meters are indicative ofChronic Kidney Disease. Values less than 15 mL/min/1.73square meters indicate Kidney failure. The calculation forGFR is based on the CKD-EPI (2020) calculation. This formulais race indifferent and is the recommended formula for GFRby the National Kidney Foundation for Adults.The GFR will not calculate if the sex is unknown or if thepatient's age is <18 years. CREATININE (test code = CREAT) 0.56 MG/DL 0.55-1.30 N Results may be depressed if patient is takingN-Acetylcysteine (NAC) and Metamizole (Dipyrone). CALCIUM (test code = CA) 8.5 MG/DL 8.5-10.1 N INDEX HEMOLYSIS (test code = HEMINDEX) 1 NORMAL <10 MG Index/DL See_Comment [Automated message] The system which generated this result transmitted reference range: 1 NORMAL. The reference range was not used to interpret this result as normal/abnormal. INDEX ICTERIC (test code = ICTINDEX) 1 NORMAL <2 MG Index/DL See_Comment [Automated message] The system which generated this result transmitted reference range: 1 NORMAL. The reference range was not used to interpret this result as normal/abnormal. INDEX LIPEMIA (test code = LIPINDEX) 1 NORMAL <50 MG Index/DL See_Comment [Automated message] The system which generated this result transmitted reference range: 1 NORMAL. The reference range was not used to interpret this result as normal/abnormal. CBC W/AUTO [id number] 05:35:00* Test Item Value Reference Range Interpretation Comme nts WHITE BLOOD CELL (test code = WBC) 6.4 K/mm3 4.1-12.1 N RED BLOOD CELL (test code = RBC) 5.12 M/mm3 3.8-5.5 N HEMOGLOBIN (test code = HGB) 13.5 G/DL 10.6-15.8 N HEMATOCRIT (test code = HCT) 41.0 % 31.8-47.4 N MEAN CELL VOLUME (test code = MCV) 80.1 fL 80.1-101.1 N MEAN CELL HGB (test code = MCH) 26.4 pg 25.3-35.3 N MEAN CELL HGB CONCETRATION ( test code = MCHC) 32.9 G/DL 32.7-35.1 N RED CELL DISTRIBUTION WIDTH (test code = RDW) 13.7 % 12.2-16.4 N RED CELL DISTRIBUTION WIDTH (test code = RDW-SD) 39.7 fL 35.1-43.9 N PLATELET COUNT (test code = PLT) 364 K/mm3 155-337 H MEAN PLATELET VOLUME (test c ode = MPV) 9.7 fL 7.6-10.4 N GRANULOCYTE % (test code = GR%) 47.6 % 37.8-82.6 N IMMATURE GRANULOCYTE % (test code = IG%) 0.3 % 0.0-2.0 N LYMPHOCYTE % (test code = LY%) 36.5 % 14.1-45.4 N MONOCYTE % (test code = MO%) 11.2 % 2.5-11.7 N EOSINOPHIL % (test code = EO%) 3.6 % 0.0-6.2 N BASOPHIL % (test code = BA%) 0.8 % 0.0-2.6 N NUCLEATED RBC % (test code = NRBC%) 0.0 /100WBC% 0.0-1.0 N GRANULOCYTE # (test code = GR#) 3.02 k/mm3 2.0-13.7 N IMMATURE GRANULOCYTE # (test code = IG#) 0.02 K/mm3 0.00-0.03 N LYMPHOCYTE # (test code = LY#) 2.32 K/mm3 0.6-3.8 N MONOCYTE # (test code = MO#) 0.71 K/mm3 0.11-0.59 H EOSINOPHIL # (test code = EO#) 0.23 K/mm3 0.0-0.4 N BASOPHIL # (test code = BA#) 0.05 K/mm3 0.0-0.1 N NUCLEATED RBC # (test code = NRBC#) 0.00 K/mm3 0.00-0.05 N GLUCOSE BEDSIDE [id number] 20:29:00* Test Item Value Reference Range Interpretation Comme nts GLUCOSE BEDSIDE TESTING (jenelle t code = GLUBED) 275 MG/DL 70-119 H GLUCOSE BEDSIDE [id number] 16:43:00* Test Item Value Reference Range Interpretation Comme nts GLUCOSE BEDSIDE TESTING (jenelle t code = GLUBED) 186 MG/DL 70-119 H GLUCOSE BEDSIDE [id number] 12:22:00* Test Item Value Reference Range Interpretation Comme nts GLUCOSE BEDSIDE TESTING (jenelle t code = GLUBED) 237 MG/DL 70-119 H VANCOMYCIN [id number] 09:36:00* Test Item Value Reference Range Interpretation Comme nts VANCOMYCIN TROUGH (test code = VANCT) 8.0 mcG/ML 10-20 L --------VANCOMYCIN TROUGH MONITORING GOALS:. Vancomycin trough should be obtained prior to 4th dose with Q 8H and Q 12H intervals.. Vancomycin trough should be obtained prior to 3rd dose with Q 24H and Q 48H intervals.. Vancomycin peaks are not recommended for routine monitoring. Indication Trough Goal (mcg/mL) Bacteremia, Endocarditis, 15-20 Osteomyelitis, MRSA pneumonia, healthcare acquired pneumonia, meningitis, cultures with KAREN of 2 for Vancomycin Cellulitis, empirical coverage 03-23 UTI, pediatric patient 03-23 Renal Function Note - Serum creatinine and blood urea nitrogen should be monitored at baseline and every 48H while on Vancomycin. GLUCOSE BEDSIDE [id number] 08:57:00* Test Item Value Reference Range Interpretation Comme [facility] GLUCOSE BEDSIDE TESTING (jenelle t code = GLUBED) 204 MG/DL 70-119 H BASIC METABOLIC [id number] 05:09:00* Test Item Value Reference Range Interpretation Comme [facility] SODIUM (test code = NA) 135.0 mmol/L 133-144 N POTASSIUM (test code = K) 4.1 mmol/L 3.5-5.1 N CHLORIDE (test code = CL) 103 mmol/L 95-105 N CARBON DIOXIDE (test code = CO2) 25 mmol/L 21-32 N ANION GAP (test code = GAP) 7.0 GAP calc 4.0-15.0 N GLUCOSE (test code = GLU) 271 MG/DL 70-110 H BLOOD UREA NITROGEN (test code = BUN) 14 MG/DL 7-18 N GLOMERULAR FILTRATION RATE (test code = GFR) 108 estGFR >60 The Glomerular Filtration Rate is a calculated parameterbased on serum Creatinine, patient age and sex. GFR valuesless than 60 mL/min/1.73 square meters are indicative ofChronic Kidney Disease. Values less than 15 mL/min/1.73square meters indicate Kidney failure. The calculation forGFR is based on the CKD-EPI (2020) calculation. This formulais race indifferent and is the recommended formula for GFRby the National Kidney Foundation for Adults.The GFR will not calculate if the sex is unknown or if thepatient's age is <18 years. CREATININE (test code = CREAT) 0.71 MG/DL 0.55-1.30 N Results may be depressed if patient is takingN-Acetylcysteine (NAC) and Metamizole (Dipyrone). CALCIUM (test code = CA) 8.7 MG/DL 8.5-10.1 N INDEX HEMOLYSIS (test code = HEMINDEX) 3 SMALL 25-50 MG Index/DL See_Comment [Automated message] The system which generated this result transmitted reference range: 1 NORMAL. The reference range was not used to interpret this result as normal/abnormal. INDEX ICTERIC (test code = ICTINDEX) 1 NORMAL <2 MG Index/DL See_Comment [Automated message] The system which generated this result transmitted reference range: 1 NORMAL. The reference range was not used to interpret this result as normal/abnormal. INDEX LIPEMIA (test code = LIPINDEX) 1 NORMAL <50 MG Index/DL See_Comment [Automated message] The system which generated this result transmitted reference range: 1 NORMAL. The reference range was not used to interpret this result as normal/abnormal. GLUCOSE BEDSIDE [id number] 20:51:00* Test Item Value Reference Range Interpretation Comme nts GLUCOSE BEDSIDE TESTING (jenelle t code = GLUBED) 300 MG/DL 70-119 H GLUCOSE BEDSIDE [id number] 15:12:00* Test Item Value Reference Range Interpretation Comme nts GLUCOSE BEDSIDE TESTING (jenelle t code = GLUBED) 277 MG/DL 70-119 H GLUCOSE BEDSIDE [id number] 11:32:00* Test Item Value Reference Range Interpretation Comme nts GLUCOSE BEDSIDE TESTING (jenelle t code = GLUBED) 320 MG/DL 70-119 H GLUCOSE BEDSIDE [id number] 07:25:00* Test Item Value Reference Range Interpretation Comme nts GLUCOSE BEDSIDE TESTING (jenelle t code = GLUBED) 219 MG/DL 70-119 H BASIC METABOLIC [id number] 07:15:00* Test Item Value Reference Range Interpretation Comme nts SODIUM (test code = NA) 132.0 mmol/L 133-144 L POTASSIUM (test code = K) 4.0 mmol/L 3.5-5.1 N CHLORIDE (test code = CL) 102 mmol/L 95-105 N CARBON DIOXIDE (test code = CO2) 23 mmol/L 21-32 N ANION GAP (test code = GAP) 7.0 GAP calc 4.0-15.0 N GLUCOSE (test code = GLU) 249 MG/DL 70-110 H BLOOD UREA NITROGEN (test code = BUN) 11 MG/DL 7-18 N GLOMERULAR FILTRATION RATE (test code = GFR) 110 estGFR >60 The Glomerular Filtration Rate is a calculated parameterbased on serum Creatinine, patient age and sex. GFR valuesless than 60 mL/min/1.73 square meters are indicative ofChronic Kidney Disease. Values less than 15 mL/min/1.73square meters indicate Kidney failure. The calculation forGFR is based on the CKD-EPI (2020) calculation. This formulais race indifferent and is the recommended formula for GFRby the National Kidney Foundation for Adults.The GFR will not calculate if the sex is unknown or if thepatient's age is <18 years. CREATININE (test code = CREAT) 0.67 MG/DL 0.55-1.30 N Results may be depressed if patient is takingN-Acetylcysteine (NAC) and Metamizole (Dipyrone). CALCIUM (test code = CA) 8.8 MG/DL 8.5-10.1 N INDEX HEMOLYSIS (test code = HEMINDEX) 1 NORMAL <10 MG Index/DL See_Comment [Automated message] The system which generated this result transmitted reference range: 1 NORMAL. The reference range was not used to interpret this result as normal/abnormal. INDEX ICTERIC (test code = ICTINDEX) 1 NORMAL <2 MG Index/DL See_Comment [Automated message] The system which generated this result transmitted reference range: 1 NORMAL. The reference range was not used to interpret this result as normal/abnormal. INDEX LIPEMIA (test code = LIPINDEX) 1 NORMAL <50 MG Index/DL See_Comment [Automated message] The system which generated this result transmitted reference range: 1 NORMAL. The reference range was not used to interpret this result as normal/abnormal. C REACTIVE [id number] 07:10:00* Test Item Value Reference Range Interpretation Comme nts C REACTIVE PROTEIN (test cod e = CRP) 0.396 MG/DL 0.000-0.900 N SED [id number] 06:13:00* Test Item Value Reference Range Interpretation Comme nts SED RATE (test code = SEDW) 44 mm/hr 0-20 H GLUCOSE BEDSIDE [id number] 21:16:00* Test Item Value Reference Range Interpretation Comme nts GLUCOSE BEDSIDE TESTING (jenelle t code = GLUBED) 325 MG/DL 70-119 H GLUCOSE BEDSIDE [id number] 16:31:00* Test Item Value Reference Range Interpretation Comme nts GLUCOSE BEDSIDE TESTING (jenelle t code = GLUBED) 275 MG/DL 70-119 H GLUCOSE BEDSIDE [id number] 11:47:00* Test Item Value Reference Range Interpretation Comme nts GLUCOSE BEDSIDE TESTING (jenelle t code = GLUBED) 359 MG/DL 70-119 H GLUCOSE BEDSIDE [id number] 21:58:00* Test Item Value Reference Range Interpretation Comme nts GLUCOSE BEDSIDE TESTING (jenelle t code = GLUBED) 274 MG/DL 70-119 H GLUCOSE BEDSIDE [id number] 18:13:00* Test Item Value Reference Range Interpretation Comme nts GLUCOSE BEDSIDE TESTING (jenelle t code = GLUBED) 377 MG/DL 70-119 H LACTIC [id number] 14:32:00* Test Item Value Reference Range Interpretation Comme nts LACTIC ACID (test code = LACT) 1.8 mmol/L 0.4-2.0 N CBC W/AUTO [id number] 12:18:00* Test Item Value Reference Range Interpretation Comme nts WHITE BLOOD CELL (test code = WBC) 6.9 K/mm3 4.1-12.1 N RED BLOOD CELL (test code = RBC) 5.13 M/mm3 3.8-5.5 N HEMOGLOBIN (test code = HGB) 13.7 G/DL 10.6-15.8 N HEMATOCRIT (test code = HCT) 41.2 % 31.8-47.4 N MEAN CELL VOLUME (test code = MCV) 80.3 fL 80.1-101.1 N MEAN CELL HGB (test code = MCH) 26.7 pg 25.3-35.3 N MEAN CELL HGB CONCETRATION ( test code = MCHC) 33.3 G/DL 32.7-35.1 N RED CELL DISTRIBUTION WIDTH (test code = RDW) 13.8 % 12.2-16.4 N RED CELL DISTRIBUTION WIDTH (test code = RDW-SD) 40.3 fL 35.1-43.9 N PLATELET COUNT (test code = PLT) 401 K/mm3 155-337 H MEAN PLATELET VOLUME (test c ode = MPV) 9.3 fL 7.6-10.4 N GRANULOCYTE % (test code = GR%) 59.4 % 37.8-82.6 N IMMATURE GRANULOCYTE % (test code = IG%) 0.3 % 0.0-2.0 N LYMPHOCYTE % (test code = LY%) 31.2 % 14.1-45.4 N MONOCYTE % (test code = MO%) 7.5 % 2.5-11.7 N EOSINOPHIL % (test code = EO%) 1.2 % 0.0-6.2 N BASOPHIL % (test code = BA%) 0.4 % 0.0-2.6 N NUCLEATED RBC % (test code = NRBC%) 0.0 /100WBC% 0.0-1.0 N GRANULOCYTE # (test code = GR#) 4.12 k/mm3 2.0-13.7 N IMMATURE GRANULOCYTE # (test code = IG#) 0.02 K/mm3 0.00-0.03 N LYMPHOCYTE # (test code = LY#) 2.16 K/mm3 0.6-3.8 N MONOCYTE # (test code = MO#) 0.52 K/mm3 0.11-0.59 N EOSINOPHIL # (test code = EO#) 0.08 K/mm3 0.0-0.4 N BASOPHIL # (test code = BA#) 0.03 K/mm3 0.0-0.1 N NUCLEATED RBC # (test code = NRBC#) 0.00 K/mm3 0.00-0.05 N SED [id number] 12:18:00* Test Item Value Reference Range Interpretation Comme nts SED RATE (test code = SEDW) 70 mm/hr 0-20 H BASIC METABOLIC [id number] 12:07:00* Test Item Value Reference Range Interpretation Comme nts SODIUM (test code = NA) 128.0 mmol/L 133-144 L POTASSIUM (test code = K) 4.1 mmol/L 3.5-5.1 N CHLORIDE (test code = CL) 94 mmol/L 95-105 L CARBON DIOXIDE (test code = CO2) 25 mmol/L 21-32 N ANION GAP (test code = GAP) 9.0 GAP calc 4.0-15.0 N GLUCOSE (test code = GLU) 479 MG/DL 70-110 HH ON 06/06/22 AT 1 207, B.LAB.KTP CALLED TO KASH NICK. The report was confirmed by read back protocols Y,N: Y. BLOOD UREA NITROGEN (test code = BUN) 22 MG/DL 7-18 H GLOMERULAR FILTRATION RATE (test code = GFR) 79 estGFR >60 The Glomerular Filtration Rate is a calculated parameterbased on serum Creatinine, patient age and sex. GFR valuesless than 60 mL/min/1.73 square meters are indicative ofChronic Kidney Disease. Values less than 15 mL/min/1.73square meters indicate Kidney failure. The calculation forGFR is based on the CKD-EPI (2020) calculation. This formulais race indifferent and is the recommended formula for GFRby the National Kidney Foundation for Adults.The GFR will not calculate if the sex is unknown or if thepatient's age is <18 years. CREATININE (test code = CREAT) 1.10 MG/DL 0.55-1.30 N Results may be depressed if patient is takingN-Acetylcysteine (NAC) and Metamizole (Dipyrone). CALCIUM (test code = CA) 9.0 MG/DL 8.5-10.1 N INDEX HEMOLYSIS (test code = HEMINDEX) 1 NORMAL <10 MG Index/DL See_Comment [Automated message] The system which generated this result transmitted reference range: 1 NORMAL. The reference range was not used to interpret this result as normal/abnormal. INDEX ICTERIC (test code = ICTINDEX) 1 NORMAL <2 MG Index/DL See_Comment [Automated message] The system which generated this result transmitted reference range: 1 NORMAL. The reference range was not used to interpret this result as normal/abnormal. INDEX LIPEMIA (test code = LIPINDEX) 1 NORMAL <50 MG Index/DL See_Comment [Automated message] The system which generated this result transmitted reference range: 1 NORMAL. The reference range was not used to interpret this result as normal/abnormal. HEPATIC FUNCTION [id number] 12:07:00* Test Item Value Reference Range Interpretation Comme nts TOTAL PROTEIN (test code = PROT) 9.5 G/DL 6.4-8.2 H ALBUMIN (test code = ALB) 3.0 G/DL 3.4-5.0 L BILIRUBIN TOTAL (test code = BILT) < 0.10 MG/DL 0.00-1.00 N BILIRUBIN DIRECT (test code = BILD) < 0.10 MG/DL 0.00-0.30 N BILIRUBIN INDIRECT (test cod e = BILIND) 0.10 MG/DL 0.2-1.3 L SGOT/AST (test code = AST) 40 Unit/L 15-37 H SGPT/ALT (test code = ALT) 51 Unit/L 12-78 N ALKALINE PHOSPHATASE TOTAL ( test code = ALKP) 160 Unit/L 45-117 H C REACTIVE [id number] 11:51:00* Test Item Value Reference Range Interpretation Comme nts C REACTIVE PROTEIN (test cod e = CRP) 0.686 MG/DL 0.000-0.900 N - XR TIBIA/FIBULA 2 V [id number] 10:16:00 [facility] 1965 Sex: M FAX:Jose Snyder NP [phone] [place]: St: REG Patient Name: BRIGHT SALAZAR Unit No: [id number] EXAMS: CPT CODE: [id number] XR TIBIA/FIBULA 2 [place] [id number] Left tibia and fibula 2 views 05/13/2022 CLINICAL HISTORY: Stump infection COMPARISON: 05/13/2022 LOCATION: T 18 FINDINGS: The nonresected cortices are intact. Interval development of periosteal callus formation and slightly ill-defined borders about the tibia and fibula amputation sites. No gross osseous destruction. There is normal bone alignment. The joint spaces are preserved. There is atherosclerotic vascular disease. Interval removal of the surgical jia skin and decreased soft tissue prominence about the amputation. IMPRESSION: Interval removal ofskin jia, decreased soft tissue prominence about the amputation and changes of healing. at 1016 Reported and signed by: Rashad Rasmussen MD CC: Jose Martinez NP Dictated Date/Time: 06/06/2022 (1016)Technologist: Dotty Pichardo Transcribed Date/Time: 06/06/2022 (1016) By: [email or web address] Orig Print D/T: S: 06/06/2022 (1019) [facility] [address] [place] [address] Blvd PHYS: Jose Martinez NP [place] [address] : 1965 AGE: 56 SEX: M LOC: [facility] PHONE #: [phone] EXAM DATE: STATUS: REG ER FAX #: [phone] RAD NO: DC Dt: PAGE 1 Signed Report COMPREHENSIVE METABOLIC [id number] 23:47:00* Test Item Value Reference Range Interpretation Comme nts SODIUM (test code = NA) 137.0 mmol/L 133-144 N POTASSIUM (test code = K) 3.8 mmol/L 3.5-5.1 N CHLORIDE (test code = CL) 106 mmol/L 95-105 H CARBON DIOXIDE (test code = CO2) 26 mmol/L 21-32 N ANION GAP (test code = GAP) 5.0 GAP calc 4.0-15.0 N GLUCOSE (test code = GLU) 135 MG/DL 70-110 H BLOOD UREA NITROGEN (test code = BUN) 20 MG/DL 7-18 H GLOMERULAR FILTRATION RATE (test code = GFR) 100 estGFR >60 The Glomerular Filtration Rate is a calculated parameterbased on serum Creatinine, patient age and sex. GFR valuesless than 60 mL/min/1.73 square meters are indicative ofChronic Kidney Disease. Values less than 15 mL/min/1.73square meters indicate Kidney failure. The calculation forGFR is based on the CKD-EPI (2020) calculation. This formulais race indifferent and is the recommended formula for GFRby the National Kidney Foundation for Adults.The GFR will not calculate if the sex is unknown or if thepatient's age is <18 years. CREATININE (test code = CREAT) 0.90 MG/DL 0.55-1.30 N Results may be depressed if patient is takingN-Acetylcystein e (NAC) and Metamizole (Dipyrone). TOTAL PROTEIN (test code = PROT) 8.6 G/DL 6.4-8.2 H ALBUMIN (test code = ALB) 3.2 G/DL 3.4-5.0 L ALBUMIN/GLOBULIN RATIO (test code = A/G) 0.6 RATIO 1.2-2.2 L CALCIUM (test code = CA) 9.3 MG/DL 8.5-10.1 N BILIRUBIN TOTAL (test code = BILT) 0.21 MG/DL 0.00-1.00 N BILIRUBIN DIRECT (test code = BILD) 0.10 MG/DL 0.00-0.30 N BILIRUBIN INDIRECT (test code = BILIND) 0.11 MG/DL 0.2-1.3 L SGOT/AST (test code = AST) 18 Unit/L 15-37 N SGPT/ALT (test code = ALT) 38 Unit/L 12-78 N ALKALINE PHOSPHATASE TOTAL (test code = ALKP) 110 Unit/L 45-117 N INDEX HEMOLYSIS (test code = HEMINDEX) 1 NORMAL <10 MG Index/DL See_Comment [Automated message] The system which generated this result transmitted reference range: 1 NORMAL. The reference range was not used to interpret this result as normal/abnormal. INDEX ICTERIC (test code = ICTINDEX) 1 NORMAL <2 MG Index/DL See_Comment [Automated message] The system which generated this result transmitted reference range: 1 NORMAL. The reference range was not used to interpret this result as normal/abnormal. INDEX LIPEMIA (test code = LIPINDEX) 1 NORMAL <50 MG Index/DL See_Comment [Automated message] The system which generated this result transmitted reference range: 1 NORMAL. The reference range was not used to interpret this result as normal/abnormal. PT AND [id number] 22:31:00* Test Item Value Reference Range Interpretation Comments PT PATIENT (test code = PTP) 13.7 SECONDS 9.4-12.5 H INTERNATIONAL NORMAL RATIO (test code = INR) 1.22 INR Unit 0.88-1.13 H ----- ---------Therapeutic range for INR is dependent upon the situation.2.0-3.0 Prophylaxis / venous thromboembolism, Treatment of DVT, Acute myocardial infarction stroke prevention, Systemic embolism prevention in fibrillation3.0-4.5 AMI recurrence prevention, Systemic embolism prevention in prosthetic heart 3.0-5.4 AMI mortality reduction THROMBOPLASTIN TIME PARTIAL (test code = PTT) 34.5 SECONDS 24-37.7 N THERAPEUTIC RANG E FOR UNFRACTIONATED HEPARIN = 50.5-83.6 SEC This test is not recommended to monitor low molecularweight heparin or danaparoid. Order LMWH test COLLECTION THROUGH LINES THAT HAVE BEEN PREVIOUSLY FLUSHEDWITH HEPARIN SHOULD BE AVOIDED DUE TO POSSIBLE HEPARINCONTAMINATION CBC W/AUTO [id number] 22:23:00* Test Item Value Reference Range Interpretation Comme nts WHITE BLOOD CELL (test code = WBC) 9.6 K/mm3 4.1-12.1 N RED BLOOD CELL (test code = RBC) 4.90 M/mm3 3.8-5.5 N HEMOGLOBIN (test code = HGB) 13.4 G/DL 10.6-15.8 N HEMATOCRIT (test code = HCT) 40.8 % 31.8-47.4 N MEAN CELL VOLUME (test code = MCV) 83.3 fL 80.1-101.1 N MEAN CELL HGB (test code = MCH) 27.3 pg 25.3-35.3 N MEAN CELL HGB CONCETRATION ( test code = MCHC) 32.8 G/DL 32.7-35.1 N RED CELL DISTRIBUTION WIDTH (test code = RDW) 13.6 % 12.2-16.4 N RED CELL DISTRIBUTION WIDTH (test code = RDW-SD) 41.1 fL 35.1-43.9 N PLATELET COUNT (test code = PLT) 415 K/mm3 155-337 H MEAN PLATELET VOLUME (test c ode = MPV) 9.6 fL 7.6-10.4 N GRANULOCYTE % (test code = GR%) 52.4 % 37.8-82.6 N IMMATURE GRANULOCYTE % (test code = IG%) 0.3 % 0.0-2.0 N LYMPHOCYTE % (test code = LY%) 34.0 % 14.1-45.4 N MONOCYTE % (test code = MO%) 11.7 % 2.5-11.7 N EOSINOPHIL % (test code = EO%) 0.8 % 0.0-6.2 N BASOPHIL % (test code = BA%) 0.8 % 0.0-2.6 N NUCLEATED RBC % (test code = NRBC%) 0.0 /100WBC% 0.0-1.0 N GRANULOCYTE # (test code = GR#) 5.03 k/mm3 2.0-13.7 N IMMATURE GRANULOCYTE # (test code = IG#) 0.03 K/mm3 0.00-0.03 N LYMPHOCYTE # (test code = LY#) 3.27 K/mm3 0.6-3.8 N MONOCYTE # (test code = MO#) 1.12 K/mm3 0.11-0.59 H EOSINOPHIL # (test code = EO#) 0.08 K/mm3 0.0-0.4 N BASOPHIL # (test code = BA#) 0.08 K/mm3 0.0-0.1 N NUCLEATED RBC # (test code = NRBC#) 0.00 K/mm3 0.00-0.05 N - XR TIBIA/FIBULA 2 V [id number] 20:57:00 [facility] 1965 Sex: M FAX:Jose Snyder NP [phone] [place]: [address]: PRE Patient Name: BRIGHT SALAZAR Unit No: [id number] EXAMS: CPT CODE: [id number] XR TIBIA/FIBULA 2 [place] [address] Left tibia and fibula 2 views 05/13/2022 CLINICAL HISTORY: Stump injury COMPARISON: 04/26/2022 LOCATION: W1 FINDINGS: The nonresected cortices are intact. There is normal bone alignment. The joint spaces are preserved. There is atherosclerotic vascular disease.IMPRESSION: No acute radiographic abnormalities. at 2056 Reported and signed by: Regino Ramirez MD CC: Jose Martinez NP Dictated Date/Time: 05/13/2022 (2056)Technologist: UGO MCBRIDE Transcribed Date/Time: 05/13/2022 (2056) By: [email or web address] Orig Print D/T: S: 05/13/2022 (2100) TREASURETess Beyer NAME: JOS[address] PHYS: Cara KimmanJose NP [place], [place] [address] : 1965 AGE: 56 SEX: M LOC: B.ERS PHONE #: [phone] EXAM DATE: 05/13/2022 STATUS: PRE ER FAX #: [phone] RAD NO: DC Dt: PAGE 1 Signed ReportGLUCOSE BEDSIDE TESTING 2022-05-11 11:14:00* Test Item Value Reference Range Interpretation Comme nts GLUCOSE BEDSIDE TESTING (test code = GLUBED) 134 MG/DL 70-119 H Notified Nu rse~ GLUCOSE BEDSIDE [id number] 08:11:00* Test Item Value Reference Range Interpretation Comme nts GLUCOSE BEDSIDE TESTING (test code = GLUBED) 123 MG/DL 70-119 H Notified Nu rse~ GLUCOSE BEDSIDE [id number] 05:05:00* Test Item Value Reference Range Interpretation Comme nts GLUCOSE BEDSIDE TESTING (jenelle t code = GLUBED) 157 MG/DL 70-119 H GLUCOSE BEDSIDE [id number] 20:09:00* Test Item Value Reference Range Interpretation Comme nts GLUCOSE BEDSIDE TESTING (jenelle t code = GLUBED) 191 MG/DL 70-119 H GLUCOSE BEDSIDE [id number] 16:41:00* Test Item Value Reference Range Interpretation Comme nts GLUCOSE BEDSIDE TESTING (jenelle t code = GLUBED) 145 MG/DL 70-119 H GLUCOSE BEDSIDE [id number] 11:17:00* Test Item Value Reference Range Interpretation Comme nts GLUCOSE BEDSIDE TESTING (jenelle t code = GLUBED) 145 MG/DL 70-119 H GLUCOSE BEDSIDE [id number] 05:42:00* Test Item Value Reference Range Interpretation Comme nts GLUCOSE BEDSIDE TESTING (jenelle t code = GLUBED) 136 MG/DL 70-119 H GLUCOSE BEDSIDE [id number] 20:11:00* Test Item Value Reference Range Interpretation Comme nts GLUCOSE BEDSIDE TESTING (jenelle t code = GLUBED) 110 MG/DL 70-119 N GLUCOSE BEDSIDE [id number] 16:35:00* Test Item Value Reference Range Interpretation Comme nts GLUCOSE BEDSIDE TESTING (jenelle t code = GLUBED) 101 MG/DL 70-119 N GLUCOSE BEDSIDE [id number] 11:10:00* Test Item Value Reference Range Interpretation Comme nts GLUCOSE BEDSIDE TESTING (jenelle t code = GLUBED) 144 MG/DL 70-119 H GLUCOSE BEDSIDE [id number] 05:55:00* Test Item Value Reference Range Interpretation Comme nts GLUCOSE BEDSIDE TESTING (jenelle t code = GLUBED) 172 MG/DL 70-119 H GLUCOSE BEDSIDE [id number] 20:27:00* Test Item Value Reference Range Interpretation Comme nts GLUCOSE BEDSIDE TESTING (jenelle t code = GLUBED) 189 MG/DL 70-119 H GLUCOSE BEDSIDE [id number] 15:54:00* Test Item Value Reference Range Interpretation Comme nts GLUCOSE BEDSIDE TESTING (jenelle t code = GLUBED) 157 MG/DL 70-119 H GLUCOSE BEDSIDE [id number] 11:41:00* Test Item Value Reference Range Interpretation Comme nts GLUCOSE BEDSIDE TESTING (jenelle t code = GLUBED) 151 MG/DL 70-119 H GLUCOSE BEDSIDE [id number] 05:57:00* Test Item Value Reference Range Interpretation Comme nts GLUCOSE BEDSIDE TESTING (jenelle t code = GLUBED) 129 MG/DL 70-119 H GLUCOSE BEDSIDE [id number] 20:18:00* Test Item Value Reference Range Interpretation Comme nts GLUCOSE BEDSIDE TESTING (jenelle t code = GLUBED) 171 MG/DL 70-119 H GLUCOSE BEDSIDE [id number] 15:43:00* Test Item Value Reference Range Interpretation Comme nts GLUCOSE BEDSIDE TESTING (jenelle t code = GLUBED) 124 MG/DL 70-119 H GLUCOSE BEDSIDE [id number] 11:15:00* Test Item Value Reference Range Interpretation Comme nts GLUCOSE BEDSIDE TESTING (jenelle t code = GLUBED) 207 MG/DL 70-119 H GLUCOSE BEDSIDE [id number] 05:54:00* Test Item Value Reference Range Interpretation Comme nts GLUCOSE BEDSIDE TESTING (jenelle t code = GLUBED) 164 MG/DL 70-119 H GLUCOSE BEDSIDE [id number] 20:56:00* Test Item Value Reference Range Interpretation Comme nts GLUCOSE BEDSIDE TESTING (jenelle t code = GLUBED) 102 MG/DL 70-119 N GLUCOSE BEDSIDE [id number] 16:46:00* Test Item Value Reference Range Interpretation Comme nts GLUCOSE BEDSIDE TESTING (jenelle t code = GLUBED) 116 MG/DL 70-119 N GLUCOSE BEDSIDE [id number] 11:25:00* Test Item Value Reference Range Interpretation Comme nts GLUCOSE BEDSIDE TESTING (jenelle t code = GLUBED) 110 MG/DL 70-119 N GLUCOSE BEDSIDE [id number] 06:56:00* Test Item Value Reference Range Interpretation Comme nts GLUCOSE BEDSIDE TESTING (jenelle t code = GLUBED) 154 MG/DL 70-119 H GLUCOSE BEDSIDE [id number] 19:42:00* Test Item Value Reference Range Interpretation Comme nts GLUCOSE BEDSIDE TESTING (jenelle t code = GLUBED) 167 MG/DL 70-119 H GLUCOSE BEDSIDE [id number] 16:42:00* Test Item Value Reference Range Interpretation Comme nts GLUCOSE BEDSIDE TESTING (jenelle t code = GLUBED) 161 MG/DL 70-119 H GLUCOSE BEDSIDE [id number] 11:53:00* Test Item Value Reference Range Interpretation Comme nts GLUCOSE BEDSIDE TESTING (jenelle t code = GLUBED) 179 MG/DL 70-119 H BASIC METABOLIC [id number] 04:48:00* Test Item Value Reference Range Interpretation Comme nts SODIUM (test code = NA) 135.0 mmol/L 133-144 N POTASSIUM (test code = K) 4.1 mmol/L 3.5-5.1 N CHLORIDE (test code = CL) 102 mmol/L 95-105 N CARBON DIOXIDE (test code = CO2) 28 mmol/L 21-32 N ANION GAP (test code = GAP) 5.0 GAP calc 4.0-15.0 N GLUCOSE (test code = GLU) 177 MG/DL 70-110 H BLOOD UREA NITROGEN (test code = BUN) 11 MG/DL 7-18 N GLOMERULAR FILTRATION RATE (test code = GFR) 115 estGFR >60 The Glomerular Filtration Rate is a calculated parameterbased on serum Creatinine, patient age and sex. GFR valuesless than 60 mL/min/1.73 square meters are indicative ofChronic Kidney Disease. Values less than 15 mL/min/1.73square meters indicate Kidney failure. The calculation forGFR is based on the CKD-EPI (202) calculation. This formulais race indifferent and is the recommended formula for GFRby the National Kidney Foundation for Adults.The GFR will not calculate if the sex is unknown or if thepatient's age is <18 years. CREATININE (test code = CREAT) 0.57 MG/DL 0.55-1.30 N Results may be depressed if patient is takingN-Acetylcysteine (NAC) and Metamizole (Dipyrone). CALCIUM (test code = CA) 8.6 MG/DL 8.5-10.1 N INDEX HEMOLYSIS (test code = HEMINDEX) 1 NORMAL <10 MG Index/DL See_Comment [Automated message] The system which generated this result transmitted reference range: 1 NORMAL. The reference range was not used to interpret this result as normal/abnormal. INDEX ICTERIC (test code = ICTINDEX) 1 NORMAL <2 MG Index/DL See_Comment [Automated message] The system which generated this result transmitted reference range: 1 NORMAL. The reference range was not used to interpret this result as normal/abnormal. INDEX LIPEMIA (test code = LIPINDEX) 1 NORMAL <50 MG Index/DL See_Comment [Automated message] The system which generated this result transmitted reference range: 1 NORMAL. The reference range was not used to interpret this result as normal/abnormal. CBC W/AUTO [id number] 04:28:00* Test Item Value Reference Range Interpretation Comme nts WHITE BLOOD CELL (test code = WBC) 7.1 K/mm3 4.1-12.1 N RED BLOOD CELL (test code = RBC) 4.02 M/mm3 3.8-5.5 N HEMOGLOBIN (test code = HGB) 11.1 G/DL 10.6-15.8 N HEMATOCRIT (test code = HCT) 32.6 % 31.8-47.4 N MEAN CELL VOLUME (test code = MCV) 81.1 fL 80.1-101.1 N MEAN CELL HGB (test code = MCH) 27.6 pg 25.3-35.3 N MEAN CELL HGB CONCETRATION ( test code = MCHC) 34.0 G/DL 32.7-35.1 N RED CELL DISTRIBUTION WIDTH (test code = RDW) 13.1 % 12.2-16.4 N RED CELL DISTRIBUTION WIDTH (test code = RDW-SD) 38.5 fL 35.1-43.9 N PLATELET COUNT (test code = PLT) 312 K/mm3 155-337 N MEAN PLATELET VOLUME (test c ode = MPV) 9.3 fL 7.6-10.4 N GRANULOCYTE % (test code = GR%) 58.6 % 37.8-82.6 N IMMATURE GRANULOCYTE % (test code = IG%) 0.3 % 0.0-2.0 N LYMPHOCYTE % (test code = LY%) 24.8 % 14.1-45.4 N MONOCYTE % (test code = MO%) 12.3 % 2.5-11.7 H EOSINOPHIL % (test code = EO%) 3.4 % 0.0-6.2 N BASOPHIL % (test code = BA%) 0.6 % 0.0-2.6 N NUCLEATED RBC % (test code = NRBC%) 0.0 /100WBC% 0.0-1.0 N GRANULOCYTE # (test code = GR#) 4.17 k/mm3 2.0-13.7 N IMMATURE GRANULOCYTE # (test code = IG#) 0.02 K/mm3 0.00-0.03 N LYMPHOCYTE # (test code = LY#) 1.76 K/mm3 0.6-3.8 N MONOCYTE # (test code = MO#) 0.87 K/mm3 0.11-0.59 H EOSINOPHIL # (test code = EO#) 0.24 K/mm3 0.0-0.4 N BASOPHIL # (test code = BA#) 0.04 K/mm3 0.0-0.1 N NUCLEATED RBC # (test code = NRBC#) 0.00 K/mm3 0.00-0.05 N GLUCOSE BEDSIDE [id number] 20:09:00* Test Item Value Reference Range Interpretation Comme nts GLUCOSE BEDSIDE TESTING (jenelle t code = GLUBED) 214 MG/DL 70-119 H GLUCOSE BEDSIDE [id number] 12:25:00* Test Item Value Reference Range Interpretation Comme nts GLUCOSE BEDSIDE TESTING (jenelle t code = GLUBED) 185 MG/DL 70-119 H BASIC METABOLIC [id number] 12:00:00* Test Item Value Reference Range Interpretation Comme nts SODIUM (test code = NA) 131.0 mmol/L 133-144 L POTASSIUM (test code = K) 4.3 mmol/L 3.5-5.1 N CHLORIDE (test code = CL) 102 mmol/L 95-105 N CARBON DIOXIDE (test code = CO2) 24 mmol/L 21-32 N ANION GAP (test code = GAP) 5.0 GAP calc 4.0-15.0 N GLUCOSE (test code = GLU) 169 MG/DL 70-110 H BLOOD UREA NITROGEN (test code = BUN) 10 MG/DL 7-18 N GLOMERULAR FILTRATION RATE (test code = GFR) 116 estGFR >60 The Glomerular Filtration Rate is a calculated parameterbased on serum Creatinine, patient age and sex. GFR valuesless than 60 mL/min/1.73 square meters are indicative ofChronic Kidney Disease. Values less than 15 mL/min/1.73square meters indicate Kidney failure. The calculation forGFR is based on the CKD-EPI (2020) calculation. This formulais race indifferent and is the recommended formula for GFRby the National Kidney Foundation for Adults.The GFR will not calculate if the sex is unknown or if thepatient's age is <18 years. CREATININE (test code = CREAT) 0.55 MG/DL 0.55-1.30 N Results may be depressed if patient is takingN-Acetylcysteine (NAC) and Metamizole (Dipyrone). CALCIUM (test code = CA) 8.7 MG/DL 8.5-10.1 N INDEX HEMOLYSIS (test code = HEMINDEX) 3 SMALL 25-50 MG Index/DL See_Comment [Automated message] The system which generated this result transmitted reference range: 1 NORMAL. The reference range was not used to interpret this result as normal/abnormal. INDEX ICTERIC (test code = ICTINDEX) 1 NORMAL <2 MG Index/DL See_Comment [Automated message] The system which generated this result transmitted reference range: 1 NORMAL. The reference range was not used to interpret this result as normal/abnormal. INDEX LIPEMIA (test code = LIPINDEX) 1 NORMAL <50 MG Index/DL See_Comment [Automated message] The system which generated this result transmitted reference range: 1 NORMAL. The reference range was not used to interpret this result as normal/abnormal. GLUCOSE BEDSIDE [id number] 06:39:00* Test Item Value Reference Range Interpretation Comme nts GLUCOSE BEDSIDE TESTING (jenelle t code = GLUBED) 123 MG/DL 70-119 H GLUCOSE BEDSIDE [id number] 20:09:00* Test Item Value Reference Range Interpretation Comme nts GLUCOSE BEDSIDE TESTING (jenelle t code = GLUBED) 174 MG/DL 70-119 H GLUCOSE BEDSIDE [id number] 15:02:00* Test Item Value Reference Range Interpretation Comme nts GLUCOSE BEDSIDE TESTING (jenelle t code = GLUBED) 207 MG/DL 70-119 H GLUCOSE BEDSIDE [id number] 11:29:00* Test Item Value Reference Range Interpretation Comme nts GLUCOSE BEDSIDE TESTING (jenelle t code = GLUBED) 219 MG/DL 70-119 H BASIC METABOLIC [id number] 06:10:00* Test Item Value Reference Range Interpretation Comme nts SODIUM (test code = NA) 136.0 mmol/L 133-144 N POTASSIUM (test code = K) 3.6 mmol/L 3.5-5.1 N CHLORIDE (test code = CL) 103 mmol/L 95-105 N CARBON DIOXIDE (test code = CO2) 27 mmol/L 21-32 N ANION GAP (test code = GAP) 6.0 GAP calc 4.0-15.0 N GLUCOSE (test code = GLU) 186 MG/DL 70-110 H BLOOD UREA NITROGEN (test code = BUN) 11 MG/DL 7-18 N GLOMERULAR FILTRATION RATE (test code = GFR) 120 estGFR >60 The Glomerular Filtration Rate is a calculated parameterbased on serum Creatinine, patient age and sex. GFR valuesless than 60 mL/min/1.73 square meters are indicative ofChronic Kidney Disease. Values less than 15 mL/min/1.73square meters indicate Kidney failure. The calculation forGFR is based on the CKD-EPI (2020) calculation. This formulais race indifferent and is the recommended formula for GFRby the National Kidney Foundation for Adults.The GFR will not calculate if the sex is unknown or if thepatient's age is <18 years. CREATININE (test code = CREAT) 0.49 MG/DL 0.55-1.30 L Results may be depressed if patient is takingN-Acetylcysteine (NAC) and Metamizole (Dipyrone). CALCIUM (test code = CA) 8.4 MG/DL 8.5-10.1 L INDEX HEMOLYSIS (test code = HEMINDEX) 1 NORMAL <10 MG Index/DL See_Comment [Automated message] The system which generated this result transmitted reference range: 1 NORMAL. The reference range was not used to interpret this result as normal/abnormal. INDEX ICTERIC (test code = ICTINDEX) 1 NORMAL <2 MG Index/DL See_Comment [Automated message] The system which generated this result transmitted reference range: 1 NORMAL. The reference range was not used to interpret this result as normal/abnormal. INDEX LIPEMIA (test code = LIPINDEX) 1 NORMAL <50 MG Index/DL See_Comment [Automated message] The system which generated this result transmitted reference range: 1 NORMAL. The reference range was not used to interpret this result as normal/abnormal. VANCOMYCIN [id number] 05:57:00* Test Item Value Reference Range Interpretation Comme nts VANCOMYCIN TROUGH (test code = VANCT) 8.4 mcG/ML 10-20 L --------VANCOMYCIN TROUGH MONITORING GOALS:. Vancomycin trough should be obtained prior to 4th dose with Q 8H and Q 12H intervals.. Vancomycin trough should be obtained prior to 3rd dose with Q 24H and Q 48H intervals.. Vancomycin peaks are not recommended for routine monitoring. Indication Trough Goal (mcg/mL) Bacteremia, Endocarditis, 15-20 Osteomyelitis, MRSA pneumonia, healthcare acquired pneumonia, meningitis, cultures with KAREN of 2 for Vancomycin Cellulitis, empirical coverage 03-23 UTI, pediatric patient 03-23 Renal Function Note - Serum creatinine and blood urea nitrogen should be monitored at baseline and every 48H while on Vancomycin. GLUCOSE BEDSIDE [id number] 05:50:00* Test Item Value Reference Range Interpretation Comme nts GLUCOSE BEDSIDE TESTING (jenelle t code = GLUBED) 181 MG/DL 70-119 H GLUCOSE BEDSIDE [id number] 21:08:00* Test Item Value Reference Range Interpretation Comme nts GLUCOSE BEDSIDE TESTING (jenelle t code = GLUBED) 202 MG/DL 70-119 H GLUCOSE BEDSIDE [id number] 15:47:00* Test Item Value Reference Range Interpretation Comme nts GLUCOSE BEDSIDE TESTING (jenelle t code = GLUBED) 128 MG/DL 70-119 H GLUCOSE BEDSIDE [id number] 11:10:00* Test Item Value Reference Range Interpretation Comme nts GLUCOSE BEDSIDE TESTING (jenelle t code = GLUBED) 230 MG/DL 70-119 H BASIC METABOLIC [id number] 05:34:00* Test Item Value Reference Range Interpretation Comme nts SODIUM (test code = NA) 132.0 mmol/L 133-144 L POTASSIUM (test code = K) 3.6 mmol/L 3.5-5.1 N CHLORIDE (test code = CL) 99 mmol/L 95-105 N CARBON DIOXIDE (test code = CO2) 29 mmol/L 21-32 N ANION GAP (test code = GAP) 4.0 GAP calc 4.0-15.0 N GLUCOSE (test code = GLU) 231 MG/DL 70-110 H BLOOD UREA NITROGEN (test code = BUN) 11 MG/DL 7-18 N GLOMERULAR FILTRATION RATE (test code = GFR) 113 estGFR >60 The Glomerular Filtration Rate is a calculated parameterbased on serum Creatinine, patient age and sex. GFR valuesless than 60 mL/min/1.73 square meters are indicative ofChronic Kidney Disease. Values less than 15 mL/min/1.73square meters indicate Kidney failure. The calculation forGFR is based on the CKD-EPI (202) calculation. This formulais race indifferent and is the recommended formula for GFRby the National Kidney Foundation for Adults.The GFR will not calculate if the sex is unknown or if thepatient's age is <18 years. CREATININE (test code = CREAT) 0.60 MG/DL 0.55-1.30 N Results may be depressed if patient is takingN-Acetylcysteine (NAC) and Metamizole (Dipyrone). CALCIUM (test code = CA) 8.3 MG/DL 8.5-10.1 L INDEX HEMOLYSIS (test code = HEMINDEX) 1 NORMAL <10 MG Index/DL See_Comment [Automated message] The system which generated this result transmitted reference range: 1 NORMAL. The reference range was not used to interpret this result as normal/abnormal. INDEX ICTERIC (test code = ICTINDEX) 1 NORMAL <2 MG Index/DL See_Comment [Automated message] The system which generated this result transmitted reference range: 1 NORMAL. The reference range was not used to interpret this result as normal/abnormal. INDEX LIPEMIA (test code = LIPINDEX) 1 NORMAL <50 MG Index/DL See_Comment [Automated message] The system which generated this result transmitted reference range: 1 NORMAL. The reference range was not used to interpret this result as normal/abnormal. GLUCOSE BEDSIDE [id number] 05:00:00* Test Item Value Reference Range Interpretation Comme nts GLUCOSE BEDSIDE TESTING (jenelle t code = GLUBED) 223 MG/DL 70-119 H GLUCOSE BEDSIDE [id number] 19:54:00* Test Item Value Reference Range Interpretation Comme nts GLUCOSE BEDSIDE TESTING (jenelle t code = GLUBED) 131 MG/DL 70-119 H GLUCOSE BEDSIDE [id number] 16:41:00* Test Item Value Reference Range Interpretation Comme nts GLUCOSE BEDSIDE TESTING (jenelle t code = GLUBED) 150 MG/DL 70-119 H GLUCOSE BEDSIDE [id number] 13:59:00* Test Item Value Reference Range Interpretation Comme nts GLUCOSE BEDSIDE TESTING (jenelle t code = GLUBED) 111 MG/DL 70-119 N BASIC METABOLIC [id number] 06:18:00* Test Item Value Reference Range Interpretation Comme nts SODIUM (test code = NA) 134.0 mmol/L 133-144 N POTASSIUM (test code = K) 3.4 mmol/L 3.5-5.1 L CHLORIDE (test code = CL) 102 mmol/L 95-105 N CARBON DIOXIDE (test code = CO2) 27 mmol/L 21-32 N ANION GAP (test code = GAP) 5.0 GAP calc 4.0-15.0 N GLUCOSE (test code = GLU) 156 MG/DL 70-110 H BLOOD UREA NITROGEN (test code = BUN) 10 MG/DL 7-18 N GLOMERULAR FILTRATION RATE (test code = GFR) 120 estGFR >60 The Glomerular Filtration Rate is a calculated parameterbased on serum Creatinine, patient age and sex. GFR valuesless than 60 mL/min/1.73 square meters are indicative ofChronic Kidney Disease. Values less than 15 mL/min/1.73square meters indicate Kidney failure. The calculation forGFR is based on the CKD-EPI (202) calculation. This formulais race indifferent and is the recommended formula for GFRby the National Kidney Foundation for Adults.The GFR will not calculate if the sex is unknown or if thepatient's age is <18 years. CREATININE (test code = CREAT) 0.50 MG/DL 0.55-1.30 L Results may be depressed if patient is takingN-Acetylcysteine (NAC) and Metamizole (Dipyrone). CALCIUM (test code = CA) 8.2 MG/DL 8.5-10.1 L INDEX HEMOLYSIS (test code = HEMINDEX) 1 NORMAL <10 MG Index/DL See_Comment [Automated message] The system which generated this result transmitted reference range: 1 NORMAL. The reference range was not used to interpret this result as normal/abnormal. INDEX ICTERIC (test code = ICTINDEX) 1 NORMAL <2 MG Index/DL See_Comment [Automated message] The system which generated this result transmitted reference range: 1 NORMAL. The reference range was not used to interpret this result as normal/abnormal. INDEX LIPEMIA (test code = LIPINDEX) 1 NORMAL <50 MG Index/DL See_Comment [Automated message] The system which generated this result transmitted reference range: 1 NORMAL. The reference range was not used to interpret this result as normal/abnormal. GLUCOSE BEDSIDE [id number] 04:36:00* Test Item Value Reference Range Interpretation Comme nts GLUCOSE BEDSIDE TESTING (jenelle t code = GLUBED) 146 MG/DL 70-119 H GLUCOSE BEDSIDE [id number] 20:47:00* Test Item Value Reference Range Interpretation Comme nts GLUCOSE BEDSIDE TESTING (jenelle t code = GLUBED) 147 MG/DL 70-119 H [id number] 15:54:00* Test Item Value Reference Range Interpretation Comme nts SURGICAL (test code = SR) RUN DATE: 04/30/22 [facility] PAGE 1 RUN TIME: 1554 Specimen Inquiry RUN USER: INTERFACE PATIENT: [id number] AGE/SX: 56/M ROOM: [facility] RE04/26/22REG DR: Yuli Pink MD : 65 BED: W DIS: STATUS: ADM IN TLOC: SPEC #: [id number] RECD: 04/29/22 STATUS: KIM MOCK #: [id number] ANIYAH: 04/27/22 [facility] DR: Yung Loomis MD ENTERED: 04/29/22 SP TYPE: SURGICAL OTHR DR: No Primary or Family Physician Luis Enrique Mishra MD, Carol L MD Danilevich, Maxim MD Ketron, Lowell L MDORDERED: [id number], ANATOMIC SPEC COPIES TO: No Primary [place] [address] [facility] [address] [place] [address] Jacquie De La Garza MD [address] [facility] [address] [place] [address] [email or web address] Jasiel Lundberg MD [address] [facility] [address] [place] [address] Edis Ascencio MD [address] [place] [id number] [place] [address] HISTOLOGY: TISSUE ID BLK PCS MO LEV / PROCEDURE DISPOSITION ____ ___ ___ ___ ___ LEG A 4 4 PROCEDURES: 54921 (04/29/22) CONTINUED ON NEXT PAGE RUN DATE: 04/30/22 [place] - LAB PAGE 2 RUN TIME: 1554 Specimen Inquiry RUN USER: INTERFACE SPEC #: [id number] PATIENT: BRIGHT SALAZAR #[id number] (Continued) TISSUES: A. 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 The specimen measures 29 cm from heel to proximal resection margin x 15 cmfrom heel to previous forefoot amputation. A 1.2 cm length portion of tibia and a 5 cmlength portion of fibula are extending from the proximal resection margin. The area ofprevious transmetatarsal forefoot amputation is covered in wet green-black gangrenousnecrosis with kathy purulence. The back of the foot just above the heel shows a 2.5 cmgangrenous ulcer. The posterior tibial vessels are widely patent. Section code: A1, skin and soft tissue resection margin; A2, gangrenous necrosis at site ofprevious forefoot amputation; A3, gangrenous ulcer at back of foot; A4, posterior tibialvessels. DWV/jv MICROSCOPIC DESCRIPTION A microscopic examination has been performed and the findings are incorporated in thefinal diagnosis. CLINICAL INFORMATION Left diabetic foot wound, gangrene Signed SIGNATURE ON FILE Guillermo Moreno MD 04/30/22 1554 END OF REPORT GLUCOSE BEDSIDE [id number] 15:33:00* Test Item Value Reference Range Interpretation Comme nts GLUCOSE BEDSIDE TESTING (jenelle t code = GLUBED) 102 MG/DL 70-119 N GLUCOSE BEDSIDE [id number] 11:59:00* Test Item Value Reference Range Interpretation Comme nts GLUCOSE BEDSIDE TESTING (jenelle t code = GLUBED) 133 MG/DL 70-119 H GLUCOSE BEDSIDE [id number] 05:46:00* Test Item Value Reference Range Interpretation Comme nts GLUCOSE BEDSIDE TESTING (jenelle t code = GLUBED) 131 MG/DL 70-119 H BASIC METABOLIC [id number] 04:43:00* Test Item Value Reference Range Interpretation Comme nts SODIUM (test code = NA) 135.0 mmol/L 133-144 N POTASSIUM (test code = K) 3.9 mmol/L 3.5-5.1 N CHLORIDE (test code = CL) 106 mmol/L 95-105 H CARBON DIOXIDE (test code = CO2) 26 mmol/L 21-32 N ANION GAP (test code = GAP) 3.0 GAP calc 4.0-15.0 L GLUCOSE (test code = GLU) 140 MG/DL 70-110 H BLOOD UREA NITROGEN (test code = BUN) 16 MG/DL 7-18 N GLOMERULAR FILTRATION RATE (test code = GFR) 114 estGFR >60 The Glomerular Filtration Rate is a calculated parameterbased on serum Creatinine, patient age and sex. GFR valuesless than 60 mL/min/1.73 square meters are indicative ofChronic Kidney Disease. Values less than 15 mL/min/1.73square meters indicate Kidney failure. The calculation forGFR is based on the CKD-EPI (202) calculation. This formulais race indifferent and is the recommended formula for GFRby the National Kidney Foundation for Adults.The GFR will not calculate if the sex is unknown or if thepatient's age is <18 years. CREATININE (test code = CREAT) 0.59 MG/DL 0.55-1.30 N Results may be depressed if patient is takingN-Acetylcysteine (NAC) and Metamizole (Dipyrone). CALCIUM (test code = CA) 7.9 MG/DL 8.5-10.1 L INDEX HEMOLYSIS (test code = HEMINDEX) 1 NORMAL <10 MG Index/DL See_Comment [Automated message] The system which generated this result transmitted reference range: 1 NORMAL. The reference range was not used to interpret this result as normal/abnormal. INDEX ICTERIC (test code = ICTINDEX) 1 NORMAL <2 MG Index/DL See_Comment [Automated message] The system which generated this result transmitted reference range: 1 NORMAL. The reference range was not used to interpret this result as normal/abnormal. INDEX LIPEMIA (test code = LIPINDEX) 1 NORMAL <50 MG Index/DL See_Comment [Automated message] The system which generated this result transmitted reference range: 1 NORMAL. The reference range was not used to interpret this result as normal/abnormal. CBC W/AUTO [id number] 04:21:00* Test Item Value Reference Range Interpretation Comme nts WHITE BLOOD CELL (test code = WBC) 7.6 K/mm3 4.1-12.1 N RED BLOOD CELL (test code = RBC) 4.01 M/mm3 3.8-5.5 N HEMOGLOBIN (test code = HGB) 11.4 G/DL 10.6-15.8 N HEMATOCRIT (test code = HCT) 34.0 % 31.8-47.4 N MEAN CELL VOLUME (test code = MCV) 84.8 fL 80.1-101.1 N MEAN CELL HGB (test code = MCH) 28.4 pg 25.3-35.3 N MEAN CELL HGB CONCETRATION ( test code = MCHC) 33.5 G/DL 32.7-35.1 N RED CELL DISTRIBUTION WIDTH (test code = RDW) 13.9 % 12.2-16.4 N RED CELL DISTRIBUTION WIDTH (test code = RDW-SD) 43.0 fL 35.1-43.9 N PLATELET COUNT (test code = PLT) 236 K/mm3 155-337 N MEAN PLATELET VOLUME (test c ode = MPV) 10.1 fL 7.6-10.4 N GRANULOCYTE % (test code = GR%) 65.2 % 37.8-82.6 N IMMATURE GRANULOCYTE % (test code = IG%) 0.4 % 0.0-2.0 N LYMPHOCYTE % (test code = LY%) 16.6 % 14.1-45.4 N MONOCYTE % (test code = MO%) 14.5 % 2.5-11.7 H EOSINOPHIL % (test code = EO%) 2.8 % 0.0-6.2 N BASOPHIL % (test code = BA%) 0.5 % 0.0-2.6 N NUCLEATED RBC % (test code = NRBC%) 0.0 /100WBC% 0.0-1.0 N GRANULOCYTE # (test code = GR#) 4.97 k/mm3 2.0-13.7 N IMMATURE GRANULOCYTE # (test code = IG#) 0.03 K/mm3 0.00-0.03 N LYMPHOCYTE # (test code = LY#) 1.27 K/mm3 0.6-3.8 N MONOCYTE # (test code = MO#) 1.11 K/mm3 0.11-0.59 H EOSINOPHIL # (test code = EO#) 0.21 K/mm3 0.0-0.4 N BASOPHIL # (test code = BA#) 0.04 K/mm3 0.0-0.1 N NUCLEATED RBC # (test code = NRBC#) 0.00 K/mm3 0.00-0.05 N GLUCOSE BEDSIDE [id number] 20:20:00* Test Item Value Reference Range Interpretation Comme nts GLUCOSE BEDSIDE TESTING (jenelle t code = GLUBED) 186 MG/DL 70-119 H GLUCOSE BEDSIDE [id number] 15:47:00* Test Item Value Reference Range Interpretation Comme nts GLUCOSE BEDSIDE TESTING (jenelle t code = GLUBED) 204 MG/DL 70-119 H GLUCOSE BEDSIDE [id number] 10:50:00* Test Item Value Reference Range Interpretation Comme nts GLUCOSE BEDSIDE TESTING (jenelle t code = GLUBED) 186 MG/DL 70-119 H GLUCOSE BEDSIDE [id number] 09:37:00* Test Item Value Reference Range Interpretation Comme nts GLUCOSE BEDSIDE TESTING (jenelle t code = GLUBED) 176 MG/DL 70-119 H BASIC METABOLIC [id number] 05:30:00* Test Item Value Reference Range Interpretation Comme nts SODIUM (test code = NA) 136.0 mmol/L 133-144 N POTASSIUM (test code = K) 3.9 mmol/L 3.5-5.1 N CHLORIDE (test code = CL) 107 mmol/L 95-105 H CARBON DIOXIDE (test code = CO2) 24 mmol/L 21-32 N ANION GAP (test code = GAP) 5.0 GAP calc 4.0-15.0 N GLUCOSE (test code = GLU) 219 MG/DL 70-110 H BLOOD UREA NITROGEN (test code = BUN) 16 MG/DL 7-18 N GLOMERULAR FILTRATION RATE (test code = GFR) 113 estGFR >60 The Glomerular Filtration Rate is a calculated parameterbased on serum Creatinine, patient age and sex. GFR valuesless than 60 mL/min/1.73 square meters are indicative ofChronic Kidney Disease. Values less than 15 mL/min/1.73square meters indicate Kidney failure. The calculation forGFR is based on the CKD-EPI (2020) calculation. This formulais race indifferent and is the recommended formula for GFRby the National Kidney Foundation for Adults.The GFR will not calculate if the sex is unknown or if thepatient's age is <18 years. CREATININE (test code = CREAT) 0.61 MG/DL 0.55-1.30 N Results may be depressed if patient is takingN-Acetylcysteine (NAC) and Metamizole (Dipyrone). CALCIUM (test code = CA) 8.0 MG/DL 8.5-10.1 L INDEX HEMOLYSIS (test code = HEMINDEX) 1 NORMAL <10 MG Index/DL See_Comment [Automated message] The system which generated this result transmitted reference range: 1 NORMAL. The reference range was not used to interpret this result as normal/abnormal. INDEX ICTERIC (test code = ICTINDEX) 1 NORMAL <2 MG Index/DL See_Comment [Automated message] The system which generated this result transmitted reference range: 1 NORMAL. The reference range was not used to interpret this result as normal/abnormal. INDEX LIPEMIA (test code = LIPINDEX) 1 NORMAL <50 MG Index/DL See_Comment [Automated message] The system which generated this result transmitted reference range: 1 NORMAL. The reference range was not used to interpret this result as normal/abnormal. GLUCOSE BEDSIDE [id number] 04:22:00* Test Item Value Reference Range Interpretation Comme nts GLUCOSE BEDSIDE TESTING (jenelle t code = GLUBED) 183 MG/DL 70-119 H GLUCOSE BEDSIDE [id number] 19:45:00* Test Item Value Reference Range Interpretation Comme nts GLUCOSE BEDSIDE TESTING (jenelle t code = GLUBED) 161 MG/DL 70-119 H GLUCOSE BEDSIDE [id number] 15:52:00* Test Item Value Reference Range Interpretation Comme nts GLUCOSE BEDSIDE TESTING (jenelle t code = GLUBED) 244 MG/DL 70-119 H GLUCOSE BEDSIDE [id number] 10:55:00* Test Item Value Reference Range Interpretation Comme nts GLUCOSE BEDSIDE TESTING (jenelle t code = GLUBED) 364 MG/DL 70-119 H VANCOMYCIN [id number] 10:36:00* Test Item Value Reference Range Interpretation Comme nts VANCOMYCIN TROUGH (test code = VANCT) 11.3 mcG/ML 03-28 N --------- VANCOMYCIN TROUGH MONITORING GOALS:. Vancomycin trough should be obtained prior to 4th dose with Q 8H and Q 12H intervals.. Vancomycin trough should be obtained prior to 3rd dose with Q 24H and Q 48H intervals.. Vancomycin peaks are not recommended for routine monitoring. Indication Trough Goal (mcg/mL) Bacteremia, Endocarditis, 15-20 Osteomyelitis, MRSA pneumonia, healthcare acquired pneumonia, meningitis, cultures with KAREN of 2 for Vancomycin Cellulitis, empirical coverage 03-23 UTI, pediatric patient 03-23 Renal Function Note - Serum creatinine and blood urea nitrogen should be monitored at baseline and every 48H while on Vancomycin. Comments to Psychiatry Teacher: KATE HAS NOT BEEN GIVEN NURSE WALT PT WAS HARD STICK NEEDED ASSTBASIC METABOLIC [id number] 04:19:00* Test Item Value Reference Range Interpretation Comme nts SODIUM (test code = NA) 133.0 mmol/L 133-144 N POTASSIUM (test code = K) 4.3 mmol/L 3.5-5.1 N CHLORIDE (test code = CL) 100 mmol/L 95-105 N CARBON DIOXIDE (test code = CO2) 25 mmol/L 21-32 N ANION GAP (test code = GAP) 8.0 GAP calc 4.0-15.0 N GLUCOSE (test code = GLU) 367 MG/DL 70-110 H BLOOD UREA NITROGEN (test code = BUN) 26 MG/DL 7-18 H GLOMERULAR FILTRATION RATE (test code = GFR) 89 estGFR >60 The Glomerular Filtration Rate is a calculated parameterbased on serum Creatinine, patient age and sex. GFR valuesless than 60 mL/min/1.73 square meters are indicative ofChronic Kidney Disease. Values less than 15 mL/min/1.73square meters indicate Kidney failure. The calculation forGFR is based on the CKD-EPI (2020) calculation. This formulais race indifferent and is the recommended formula for GFRby the National Kidney Foundation for Adults.The GFR will not calculate if the sex is unknown or if thepatient's age is <18 years. CREATININE (test code = CREAT) 0.99 MG/DL 0.55-1.30 N Results may be depressed if patient is takingN-Acetylcysteine (NAC) and Metamizole (Dipyrone). CALCIUM (test code = CA) 8.7 MG/DL 8.5-10.1 N INDEX HEMOLYSIS (test code = HEMINDEX) 1 NORMAL <10 MG Index/DL See_Comment [Automated message] The system which generated this result transmitted reference range: 1 NORMAL. The reference range was not used to interpret this result as normal/abnormal. INDEX ICTERIC (test code = ICTINDEX) 1 NORMAL <2 MG Index/DL See_Comment [Automated message] The system which generated this result transmitted reference range: 1 NORMAL. The reference range was not used to interpret this result as normal/abnormal. INDEX LIPEMIA (test code = LIPINDEX) 1 NORMAL <50 MG Index/DL See_Comment [Automated message] The system which generated this result transmitted reference range: 1 NORMAL. The reference range was not used to interpret this result as normal/abnormal. GLUCOSE BEDSIDE [id number] 03:40:00* Test Item Value Reference Range Interpretation Comme nts GLUCOSE BEDSIDE TESTING (jenelle t code = GLUBED) 367 MG/DL 70-119 H GLUCOSE BEDSIDE [id number] 22:29:00* Test Item Value Reference Range Interpretation Comme nts GLUCOSE BEDSIDE TESTING (jenelle t code = GLUBED) 329 MG/DL 70-119 H GLUCOSE BEDSIDE [id number] 18:01:00* Test Item Value Reference Range Interpretation Comme nts GLUCOSE BEDSIDE TESTING (jenelle t code = GLUBED) 190 MG/DL 70-119 H GLUCOSE BEDSIDE [id number] 12:00:00* Test Item Value Reference Range Interpretation Comme nts GLUCOSE BEDSIDE TESTING (jenelle t code = GLUBED) 176 MG/DL 70-119 H BASIC METABOLIC [id number] 11:59:00* Test Item Value Reference Range Interpretation Comme nts SODIUM (test code = NA) 135.0 mmol/L 133-144 N POTASSIUM (test code = K) 4.1 mmol/L 3.5-5.1 N CHLORIDE (test code = CL) 102 mmol/L 95-105 N CARBON DIOXIDE (test code = CO2) 28 mmol/L 21-32 N ANION GAP (test code = GAP) 5.0 GAP calc 4.0-15.0 N GLUCOSE (test code = GLU) 169 MG/DL 70-110 H BLOOD UREA NITROGEN (test code = BUN) 19 MG/DL 7-18 H GLOMERULAR FILTRATION RATE (test code = GFR) 106 estGFR >60 The Glomerular Filtration Rate is a calculated parameterbased on serum Creatinine, patient age and sex. GFR valuesless than 60 mL/min/1.73 square meters are indicative ofChronic Kidney Disease. Values less than 15 mL/min/1.73square meters indicate Kidney failure. The calculation forGFR is based on the CKD-EPI (2020) calculation. This formulais race indifferent and is the recommended formula for GFRby the National Kidney Foundation for Adults.The GFR will not calculate if the sex is unknown or if thepatient's age is <18 years. CREATININE (test code = CREAT) 0.74 MG/DL 0.55-1.30 N Results may be depressed if patient is takingN-Acetylcysteine (NAC) and Metamizole (Dipyrone). CALCIUM (test code = CA) 8.9 MG/DL 8.5-10.1 N INDEX HEMOLYSIS (test code = HEMINDEX) 1 NORMAL <10 MG Index/DL See_Comment [Automated message] The system which generated this result transmitted reference range: 1 NORMAL. The reference range was not used to interpret this result as normal/abnormal. INDEX ICTERIC (test code = ICTINDEX) 1 NORMAL <2 MG Index/DL See_Comment [Automated message] The system which generated this result transmitted reference range: 1 NORMAL. The reference range was not used to interpret this result as normal/abnormal. INDEX LIPEMIA (test code = LIPINDEX) 1 NORMAL <50 MG Index/DL See_Comment [Automated message] The system which generated this result transmitted reference range: 1 NORMAL. The reference range was not used to interpret this result as normal/abnormal. CBC W/AUTO [id number] 11:45:00* Test Item Value Reference Range Interpretation Comme nts WHITE BLOOD CELL (test code = WBC) 7.4 K/mm3 4.1-12.1 N RED BLOOD CELL (test code = RBC) 5.41 M/mm3 3.8-5.5 N HEMOGLOBIN (test code = HGB) 15.0 G/DL 10.6-15.8 N HEMATOCRIT (test code = HCT) 45.5 % 31.8-47.4 N MEAN CELL VOLUME (test code = MCV) 84.1 fL 80.1-101.1 N MEAN CELL HGB (test code = MCH) 27.7 pg 25.3-35.3 N MEAN CELL HGB CONCETRATION ( test code = MCHC) 33.0 G/DL 32.7-35.1 N RED CELL DISTRIBUTION WIDTH (test code = RDW) 13.8 % 12.2-16.4 N RED CELL DISTRIBUTION WIDTH (test code = RDW-SD) 42.2 fL 35.1-43.9 N PLATELET COUNT (test code = PLT) 269 K/mm3 155-337 N MEAN PLATELET VOLUME (test c ode = MPV) 9.6 fL 7.6-10.4 N GRANULOCYTE % (test code = GR%) 57.6 % 37.8-82.6 N IMMATURE GRANULOCYTE % (test code = IG%) 0.1 % 0.0-2.0 N LYMPHOCYTE % (test code = LY%) 28.4 % 14.1-45.4 N MONOCYTE % (test code = MO%) 9.8 % 2.5-11.7 N EOSINOPHIL % (test code = EO%) 3.2 % 0.0-6.2 N BASOPHIL % (test code = BA%) 0.9 % 0.0-2.6 N NUCLEATED RBC % (test code = NRBC%) 0.0 /100WBC% 0.0-1.0 N GRANULOCYTE # (test code = GR#) 4.28 k/mm3 2.0-13.7 N IMMATURE GRANULOCYTE # (test code = IG#) 0.01 K/mm3 0.00-0.03 N LYMPHOCYTE # (test code = LY#) 2.11 K/mm3 0.6-3.8 N MONOCYTE # (test code = MO#) 0.73 K/mm3 0.11-0.59 H EOSINOPHIL # (test code = EO#) 0.24 K/mm3 0.0-0.4 N BASOPHIL # (test code = BA#) 0.07 K/mm3 0.0-0.1 N NUCLEATED RBC # (test code = NRBC#) 0.00 K/mm3 0.00-0.05 N GLUCOSE BEDSIDE [id number] 07:49:00* Test Item Value Reference Range Interpretation Comme nts GLUCOSE BEDSIDE TESTING (jenelle t code = GLUBED) 163 MG/DL 70-119 H GLUCOSE BEDSIDE [id number] 00:32:00* Test Item Value Reference Range Interpretation Comme nts GLUCOSE BEDSIDE TESTING (test code = GLUBED) 149 MG/DL 70-119 H Notified Nu rse~ GLUCOSE BEDSIDE [id number] 18:28:00* Test Item Value Reference Range Interpretation Comme nts GLUCOSE BEDSIDE TESTING (jenelle t code = GLUBED) 266 MG/DL 70-119 H - XR TIBIA/FIBULA 2 V [id number] 17:01:00 [facility] 1965 Sex: M FAX:Luis Enrique Thomas MD [phone] [place]: C St: [facility] FAX: Jasiel Lundberg MD [phone] FAX: Yung Nunez MD [phone] Patient Name: BRIGHT SALAZAR Unit No: [id number] EXAMS: CPT CODE: [id number] XR TIBIA/FIBULA 2 [place] [address] LOCATION: H43 EXAM: - XR TIBIA/FIBULA 2 V LT HISTORY: operative planning TECHNIQUE: 2 views left lower leg COMPARISON: None. FINDINGS: No evidence of acute fracture or dislocation. Arterial vascular calcifications are demonstrated. Bone marrow mineralization is homogeneous. IMPRESSION: No acute osseous abnormality. at 1701 Reported and signed by: Olamide Pantoja MD CC: Luis Enrique Mishra MD; Jasiel Lundberg MD Dictated Date/Time: 04/26/2022 (1700)Technologist: Luis A Whipple Transcribed Date/Time: 04/26/2022 (1700) By: [email or web address] Orig Print D/T: S: 04/26/2022 (8289) RUFINA Pepito NAME: BRIGHT SALAZAR [facility] PHYS: LAM Jasiel Lundberg MD [address] [place] [address] BLVD : 1965 AGE: 56 SEX: FREDDIE JUNIOR 52268EVIT NO: [id number] LOC: [facility] PHONE #: [phone] EXAM DATE: 04/26/2022 STATUS: ADM IN FAX#: [phone] RAD NO: DC Dt: PAGE 1 Signed ReportGLYCOSYLATED HEMOGLOBIN (HA1C)2022-04-26 12:39:00* Test Item Value Reference Range Interpretation Comme nts GLYCOSYLATED HEMOGLOBIN (HA1 C) (test code = GLYHGB) 10.1 % IS-A1C 4.5-5.6 H BASIC METABOLIC [id number] 10:58:00* Test Item Value Reference Range Interpretation Comme nts SODIUM (test code = NA) 128.0 mmol/L 133-144 L POTASSIUM (test code = K) 5.0 mmol/L 3.5-5.1 N CHLORIDE (test code = CL) 96 mmol/L 95-105 N CARBON DIOXIDE (test code = CO2) 27 mmol/L 21-32 N ANION GAP (test code = GAP) 5.0 GAP calc 4.0-15.0 N GLUCOSE (test code = GLU) 540 MG/DL 70-110 HH ON 04/26/22 AT 1 057, [id number] CALLED TO DYLAN Pulido. The report was confirmed by read back protocols Y,N: Y. REPORTED RESULTS VERIFIED WITH AUTO-DILUTION PROCEDURES. BLOOD UREA NITROGEN (test code = BUN) 28 MG/DL 7-18 H GLOMERULAR FILTRATION RATE (test code = GFR) 89 estGFR >60 The Glomerular Filtration Rate is a calculated parameterbased on serum Creatinine, patient age and sex. GFR valuesless than 60 mL/min/1.73 square meters are indicative ofChronic Kidney Disease. Values less than 15 mL/min/1.73square meters indicate Kidney failure. The calculation forGFR is based on the CKD-EPI (2020) calculation. This formulais race indifferent and is the recommended formula for GFRby the National Kidney Foundation for Adults.The GFR will not calculate if the sex is unknown or if thepatient's age is <18 years. CREATININE (test code = CREAT) 0.99 MG/DL 0.55-1.30 N Results may be depressed if patient is takingN-Acetylcysteine (NAC) and Metamizole (Dipyrone). CALCIUM (test code = CA) 9.6 MG/DL 8.5-10.1 N INDEX HEMOLYSIS (test code = HEMINDEX) 3 SMALL 25-50 MG Index/DL See_Comment [Automated message] The system which generated this result transmitted reference range: 1 NORMAL. The reference range was not used to interpret this result as normal/abnormal. INDEX ICTERIC (test code = ICTINDEX) 1 NORMAL <2 MG Index/DL See_Comment [Automated message] The system which generated this result transmitted reference range: 1 NORMAL. The reference range was not used to interpret this result as normal/abnormal. INDEX LIPEMIA (test code = LIPINDEX) 1 NORMAL <50 MG Index/DL See_Comment [Automated message] The system which generated this result transmitted reference range: 1 NORMAL. The reference range was not used to interpret this result as normal/abnormal. HEPATIC FUNCTION [id number] 10:58:00* Test Item Value Reference Range Interpretation Comme nts TOTAL PROTEIN (test code = PROT) 8.4 G/DL 6.4-8.2 H ALBUMIN (test code = ALB) 3.0 G/DL 3.4-5.0 L BILIRUBIN TOTAL (test code = BILT) 0.23 MG/DL 0.00-1.00 N BILIRUBIN DIRECT (test code = BILD) < 0.10 MG/DL 0.00-0.30 N BILIRUBIN INDIRECT (test cod e = BILIND) CALC ALYSSA MG/DL 0.2-1.3 L SGOT/AST (test code = AST) 24 Unit/L 15-37 N SGPT/ALT (test code = ALT) 36 Unit/L 12-78 N ALKALINE PHOSPHATASE TOTAL (test code = ALKP) 119 Unit/L 45-117 H TROP-I HIGH [id number] 10:53:00* Test Item Value Reference Range Interpretation Comme nts TROP-I HIGH SENSITIVITY (test code = TROPIHS) 9 ng/L 0-45 N CAUTION: Units of the current test methodology (ng/L) differfrom the prior test methodology (ng/mL) by a factor of 1000. 99th Percentile Upper Reference Limit (URL): Females: 54 ng/LMales: 78 ng/L In order to distinguish acute elevations of high sensitivitytroponin from other clinical conditions, the FourthUniversal Definition of Myocardial Infarction stressesclinical assessment and the demonstration of a rise and/orfall in serial troponin results above the URL. Results from different methodologies should not be comparedto one another as quantitative results and URLs may vary bymethod. CBC W/AUTO [id number] 10:28:00* Test Item Value Reference Range Interpretation Comme nts WHITE BLOOD CELL (test code = WBC) 7.5 K/mm3 4.1-12.1 N RED BLOOD CELL (test code = RBC) 5.20 M/mm3 3.8-5.5 N HEMOGLOBIN (test code = HGB) 14.4 G/DL 10.6-15.8 N HEMATOCRIT (test code = HCT) 43.7 % 31.8-47.4 N MEAN CELL VOLUME (test code = MCV) 84.0 fL 80.1-101.1 N MEAN CELL HGB (test code = MCH) 27.7 pg 25.3-35.3 N MEAN CELL HGB CONCETRATION ( test code = MCHC) 33.0 G/DL 32.7-35.1 N RED CELL DISTRIBUTION WIDTH (test code = RDW) 13.9 % 12.2-16.4 N RED CELL DISTRIBUTION WIDTH (test code = RDW-SD) 42.5 fL 35.1-43.9 N PLATELET COUNT (test code = PLT) 262 K/mm3 155-337 N MEAN PLATELET VOLUME (test c ode = MPV) 10.2 fL 7.6-10.4 N GRANULOCYTE % (test code = GR%) 65.8 % 37.8-82.6 N IMMATURE GRANULOCYTE % (test code = IG%) 0.4 % 0.0-2.0 N LYMPHOCYTE % (test code = LY%) 21.0 % 14.1-45.4 N MONOCYTE % (test code = MO%) 10.6 % 2.5-11.7 N EOSINOPHIL % (test code = EO%) 1.5 % 0.0-6.2 N BASOPHIL % (test code = BA%) 0.7 % 0.0-2.6 N NUCLEATED RBC % (test code = NRBC%) 0.0 /100WBC% 0.0-1.0 N GRANULOCYTE # (test code = GR#) 4.97 k/mm3 2.0-13.7 N IMMATURE GRANULOCYTE # (test code = IG#) 0.03 K/mm3 0.00-0.03 N LYMPHOCYTE # (test code = LY#) 1.58 K/mm3 0.6-3.8 N MONOCYTE # (test code = MO#) 0.80 K/mm3 0.11-0.59 H EOSINOPHIL # (test code = EO#) 0.11 K/mm3 0.0-0.4 N NUCLEATED RBC # (test code = NRBC#) 0.00 K/mm3 0.00-0.05 N LACTIC [id number] 10:20:00* Test Item Value Reference Range Interpretation Comme nts LACTIC ACID (test code = LACT) 1.8 mmol/L 0.4-2.0 N - XR CHEST 1 [id number] 10:06:00 [facility] 1965 Sex: M FAX:Luis Enrique Thomas MD [phone] [place]: E St: REG Patient Name: BRIGHT SALAZAR Unit No: [id number] EXAMS: CPT CODE: [id number] XR CHEST 1 V [id number] Portable chest INDICATION: Foot infection LOCATION: T18 The lungs are clear. The cardiomediastinal silhouette is within normal limits, status post midline sternotomy. The bony thorax is unremarkable. IMPRESSION: No active disease. Left foot 3 views No prior studies for comparison purposes The patient is status post transmetatarsal amputation. There is mild cortical irregularity of the first and third amputated stumps. Soft tissue swelling around the remaining mid foot. No gas in soft tissues. IMPRESSION: Status post transmetatarsal amputation with soft tissue swelling. Mild cortical irregularity involving the amputated stumps of the first and third metatarsals, age indeterminate. Active osteomyelitis not excluded. at 1006 Reported and signed by: Silas Dick D.O. CC: Luis Enrique Mishra MD Dictated Date/Time: 04/26/2022 (1006)Technologist: ARELIS BLOOM Transcribed Date/Time: 04/26/2022 (1006) By: Suman Orig Print D/T: S: 04/26/2022 (1010) [facility]ly [facility] NAME: JOSÉBRIGHT [address] [place] [address] PHYS: Luis Enrique Dalal MDe, [place] [address] : 1965 AGE: 56 SEX:M LOC: SEAN PHONE #: [phone] EXAM DATE: 04/26/2022 STATUS: REG ER FAX #: [phone] RAD NO: DC Dt: PAGE 1 Signed Report- XR FOOT 3 + V LT 2022-04-26 10:06:00 [facility] : 1965 Sex: M FAX:Luis Enrique Thomas MD [phone] [place]: E St: REG Patient Name: BRIGHT SALAZAR Unit No: [id number] EXAMS: CPT CODE: [id number] XR FOOT 3 + V LT [id number] Portable chest INDICATION: Foot infection LOCATION: T18 The lungs areclear. The cardiomediastinal silhouette is within normal limits, status post midline sternotomy. The bony thorax is unremarkable. IMPRESSION: No active disease. Left foot 3 views No prior studies forcomparison purposes The patient is status post transmetatarsal amputation. There is mild cortical irregularity of the first and third amputated stumps. Soft tissue swelling around the remaining mid foot. No gas in soft tissues. IMPRESSION: Status post transmetatarsal amputation with soft tissue swelling. Mild cortical irregularity involving the amputated stumps of the first and third metatarsals, age indeterminate. Active osteomyelitis not excluded. at 1006 Reported and signed by: Silas Dick D.O. CC: Luis Enrique Mishra MD Dictated Date/Time: 04/26/2022 (1006)Technologist: ARELIS BLOOM Transcribed Date/Time: 04/26/2022 (1006) By: Suman Orig Print D/T: S: 04/26/2022 (1010) RUFINA Beyer NAME: BRIGHT SALAZAR [address] [place] [address] PHYS: Luis Enrique Dalal MDroe, [place] [address] : 1965 AGE: 56 SEX: M LOC: SEAN PHONE #: [phone] EXAM DATE: 04/26/2022 STATUS: REG ERFAX #: [phone] RAD NO: DC Dt: PAGE 1 Signed ReportCBC WITH AUTO DIFF 2020-04-19 14:55:00* Test Item Value Reference Range Interpretation Comme nts WBC (test code = WBC) 6.46 10\\S\\3/ul 4.80-10.80 RBC (test code = RBC) 4.57 10\\S\\6/ul 4.70-6.10 L Hemoglobin (test code = HGB) 13.5 gm/dl 14.0-18.0 L Hematocrit (test code = HCT) 39.3 % 42.0-50.0 L MCV (test code = MCV) 86.0 fL 80.0-94.0 MCH (test code = MCH) 29.5 pg 27.0-31.0 MCHC (test code = MCHC) 34.4 gm/dl 33.0-37.0 RDW (test code = RDWVC) 13.0 % 11.5-14.5 Platelet (test code = PLT) 157 10\\S\\3/ul 130-400 MPV (test code = MPV) 10.2 fL 7.4-10.4 A "NOT MEASURED" RESULTS ARE DISPLAYED WHEN THE INSTRUMENT HAS A SUPPRESSED OR UNREPORTABLE RESULT. THIS WILL MOST OFTEN HAPPEN WITH THE MPV WHEN THERE IS AN ABNORMAL PLATELET DISTRIBUTION DUE TO A CRITICAL LOW VALUE OR PLATELET CLUMPING. THE RDW MAY BE SUPPRESSED IF THERE ARE MULTIPLE PEAKS PRESENT ON THE RBC HISTOGRAM. IN THIS CASE, A MANUAL REVIEW OF THE SLIDE WILL BE PERFORMED, AND RBC MORPHOLOGY WILL BE NOTED ON THE REPORT. NE% (test code = NE) 57.1 % 42.0-75.0 LY% (test code = LY) 24.1 % 13.0-42.0 MO% (test code = MO) 16.9 % 4.0-14.0 H EO% (test code = EO) 1.4 % 1.0-5.0 BA% (test code = BA) 0.3 % 0.0-3.0 IG% (test code = IG%) 0.2 % 0.0-0.4 Neutrophils (test code = NEUTR) 60 10\\S\\3/ul 42-75 No previous valu e was reported. A value of 60 was entered by Spazzles on 04/19/2020 14:55 Lymphocytes (test code = LYMPH) 23 % 13-42 No previous valu e was reported. A value of 23 was entered by [id number] on 04/19/2020 14:55 Monocytes (test code = MONOS) 16 % 4-14 H No previous valu e was reported. A value of 16 was entered by Spazzles on 04/19/2020 14:55 Eosinophils (test code = EOS) 1 % 1-3 No previous valu e was reported. A value of 1 was entered by [id number] on 04/19/2020 14:55 [facility] CenterDR[facility]CREEN [id number] 14:50:00* Test Item Value Reference Range Interpretation Comme nts PH (test code = UPH) 6.0 Specific [place] (test code = USPGR) 1.015 Amphetamines (test code = AMPHET) Positive FT (test code = SHAHAB) Negative (qualifier value) FT (test code = BENZO) Negative (qualifier value) FT (test code = WILFREDO) Negative (qualifier value) FT (test code = MTD) Negative (qualifier value) FT (test code = OPIAT) Negative (qualifier value) FT (test code = PCP) Negative (qualifier value) The following table provides an interpretive guide for the Drugs of Abuse ran on the Siemens Cruger analyzer listed there in: Amphetamines < 1000 ng/ml = Negative Barbituates < 200 ng/ml = Negative Benzodiazapines < 200 ngml = Negative Cocaine < 300 ng/ml = Negative Methadone < 300 ng/ml = Negative Opiate < 300 ng/ml = Negative PCP < 25 ng/ml = Negative THC < 50 ng/ml = Negative Results equal to or greater than the above cut-off values = Presumptive Positive. Confirmation of Presumptive Positive results are available upon request. Cannabinoids, THC (test code = THC) Positive [facility] CenterBMP2020-11-11 14:44:00* Test Item Value Reference Range Interpretation Comme nts Glucose (test code = GLU) 112 mg/dl 75-110 H BUN (test code = BUN) 14.0 mg/dl 6.0-17.0 Creatinine (test code = CREA) 0.8 mg/dl 0.4-1.2 Sodium (test code = NA) 140 mmol/l 137-145 Potassium (test code = K) 3.2 mmol/l 3.5-5.0 L Chloride (test code = CL) 106 mmol/l 98-107 CO2 (test code = CO2) 28 mmol/l 22-30 Calcium (test code = CALC) 9.0 mg/dl 8.4-10.2 EGFR if (test code = EGFRAA) >60 mL/min/1.73m\\ S\\2 EGFR if Non- (test code = EGFRNA) >60 mL/min/1.73m\\ S\\2 Estimated Glomerular Filtration Rate (eGFR) Reference Intervals Decision Points for 18 years and older and average body mass: >= 60 Does not exclude kidney disease. 30 - 59 Suggests moderate chronic kidney disease and indicates the need for further investigation including assessment of proteinuria and cardiovascular factors. < 30 Usually indicates a need for referral for assessment and management of chronic kidney failure. [facility] CenterALCOHOL, [id number] 14:44:00* Test Item Value Reference Range Interpretation Comme nts Alcohol % (test code = ALCPC) 0 % 0.00-0.00 N Ethanol % 0.00 - 0.10 Sub-clinical 0.11 - 0.20 Emotional Instability 0.21 - 0.30 Confusion 0.31 - 0.40 Stupor 0.41 - 0.50 Coma >.50 Fatal [facility] CenterURINALYSIS WITH [id number] 14:43:00 * Test Item Value Reference Range Interpretation Comme nts Color (test code = UCOLR) Yellow Clarity (test code = UCLAR) Clear Glucose (test code = UGLUC) >=1000 NEGATIVE A Bilirubin (test code = UBILI) NEGATIVE NEGATIVE N Ketones (test code = UKET) NEGATIVE NEGATIVE N Specific [place] (test code = USPGR) 1.015 1.005-1.030 A Blood (test code = UBLD) LARGE NEGATIVE A PH (test code = UPH) 6.0 4.5-8.0 A Protein (test code = UPROT) NEGATIVE NEGATIVE N Urobilinogen (test code = U UROB) 1.0 >0.2 A Nitrite (test code = UNITR) NEGATIVE NEGATIVE N Leukocyte Esterase (test cod e = ULEUK) NEGATIVE NEGATIVE N WBC (test code = WBCUR) None Seen 0-5 A RBC (test code = RBCUR) 20-30 0-5 A Epithial Cells (test code = U EPI) 0-2 0-10 A Mucous (test code = UMUC) None Seen None Seen N Bacteria (test code = UBACT) None Seen None Seen,Trace N [facility] CenterTROPONIN-I [id number] 14:42:00* Test Item Value Reference Range Interpretation Comme nts Troponin-I (test code = TROP) <0.015 ng/ml 0.000-0.034 N The 99th Percent ile URL is 0.045 ng/mL for the Siemens Cruger Troponin I. The Joint Society of Cardiology/[place] College of Cardiology (ESC/ACC) and the National Academy of Clinical Biochemistry Standards of Laboratory Practices (NACB) recommends that the diagnosis of AMI includes the presence of clinical history suggestive of Acute Coronary Syndrome (ACS) and a maximum concentration of cardiac troponin exceeding the 99th percentile of a normal reference population [upper reference limit (URL)] on at least one occasion during the first 24 hours after the clinical event. [facility] CenterXR CHEST AP/PA 1 [id number] 14:39:47 [facility] ([facility]/IS[facility]/SA)Name: BRIGHT SALAZAR : [id number] Sex: MExam: AP portable chestDATE OF EXAM: 04/19/2020 1:50 PMINDICATION: Left-sided chest painThe lungs are clear. The cardiomediastinal silhouette is within normal limits.The bony thorax shows no significant abnormality. Sternotomy changes are noted.Impression:No active cardiopulmonary disease.This final report was electronically signed by Dr Serenity Felder MD 04/19/20202:33 PMDictated By: SERENITY WAGGONERDate: 04/19/2020 14:33[facility] CERVICAL SPINE W/O [id number] 14:33:47 [facility] ([facility]/ISI/)Name: BRIGHT SALAZAR : [id number] Sex: MCT of the cervical spine without contrast:History: Syncopal episodeMultidetector CT of the cervical spine was performed without contrast. Dosereduction technique was employed using automated exposure control and adjustmentof mA and/or kV according to patient size. Total DLP 752 mGy-cm.No fracture is identified. There is no subluxation. Mild degenerative discdisease is present at C5-6 and C6-7 with narrowing and marginal osteophyteformation. No prevertebral soft tissue swelling is noted .There is an intraparotid oval mass noted on the right. It measures 1.5 x 2.1 x2.1 cm. There is adjacent probable lymph node which abuts the posteromedialmargin of the right parotid gland and measures 1.0 cm in diameter. ENT referralis recommended as neoplasm is not excluded.The visualized lung apic es show no significant abnormality.Impression:1. No acute abnormality of the cervical spine.2. Cervical spondylosis as described.3. Intraparotid lesion on the right as described. Neoplasm is not excluded andENT referral is recommended.This final report was electronically signed by Dr Serenity Felder MD 04/19/20202:27 PMDictated By: Sven FELDER: 04/19/2020 14:27[facility] HEAD W/O [id number] 14:24:47 [facility] ([facility]Name: BRIGHT SALAZAR : [id number] Sex: MCT HEAD WITHOUT CONTRAST:INDICATION: SyncopeNoncontrast CT head was performed. Dose reduction technique was employed usingautomated exposure control and adjustment of mA and/or kV accordingto patientsize. Total DLP 1127 mGy-cm.FINDINGS:No intracranial hemorrhage, mass effect or midline shift is identified. Theventricular system is normal in size and configuration. The basal cisterns arepatent.The visualized portions of the mastoids, paranasal sinuses and orbits show nosignificant abnormality.IMPRESSION:Negative CT head without contrast.This final report was electronically signed byDr Serenity Felder MD 04/19/20202:18 PMDictated By: SERENITY FELDERDate: 04/19/2020 14:18[facility], COVID 19 Antigen + Flu by SofiaPO, COVID 19 Antigen + Flu [facility] And Lat (2 Views)Chest Pa And Lat (2 Views) Consult Notes Date/Time Note Provider Source 2023-07-10 13:30:00 [id number]:30:00Associated Order(s): CONSULT PHYSICAL THERAPY WOUND CARE Images from the original note were not included.Pt agreeable to PT for wound care. Patient met sitting edge of bed.PHYSICAL THERAPY WOUND CARE EVALUATIONConsult received, chart reviewed and evaluation complete this date. Patient referred to PT for evaluation and treatment of: Integument compromise. Patient is a 58 year old male admitted for Altered behavior [R46.89]Overdose of undetermined intent, initial encounter [T50.904A].PT Recommendations: Continued skilled PT for wound care for would cleaning, selective, non excisional debridement of necrotic tissue , and monitor wound for updated dressing recommendationsImplement Medihoney + Melgisorb AgDefer wound care to nurse, to be performed every 2-3 days or sooner if >50% strikethroughSupplies needed:Mepilex border 6t8Mptayutze Ag (in room, re-order from Mat. Mgmt.)Zinc oxide barrier cream (in room)Medihoney (in room, re-order from Mat. Mgmt.)Recommended Dressings Application/Instructions:-Irrigate wound using normal saline and gently pat dry-Apply barrier cream to immediate wound edges-Apply Medihoney to Melgisorb Ag and apply honey-side down to wound bed-Cover with foam dressingWound Description: patient presents with one stage 2 wound located on lower back.Location Size (cm)length=longest Drainage amountand type Necrotictissue Granulationtissue Odor Periwound Photolow back 2.2 x 1.4minimal and serosanguinous 50%Soft yellow adherent slough 50%Bright beefy red No normal for ethnic jqgfeCga-tmfsjyccjffTqlo-uwzgtmwfcpl TOTAL: 3.22dy7Yxqzqdwfd Provided:selective, non excisional debridement of hard thick eschar performed using forceps and scalpel, minimal bleeding occurred and ceased at treatments end, and aseptic technique performed. Cleansed wound with Vashe soaked gauze and gently pat dryDressings applied as follows;-Zinc oxide barrier cream applied to periwound-Medihoney applied to piece of Melgisorb Ag (cut to size/shape of wound) and applied honey-side down to wound bed-Covered with Foam dressingsEDUCATION:-All wound care items used today were put in a bag labeled with patients name and room number outside of his room due to SI Precautions-Patient is educated on wound care recommendations and dressing applications.After session, patient sitting edge of bed. Call button provided.PLAN OF CARE: At least 1 times per week for wound care for would cleaning, selective, non excisional debridement of necrotic tissue , and monitor wound for updated dressing recommendations.See below for complete details.Admit Date: 07/06/2023Hospital Diagnosis:Altered behavior [R46.89]Overdose of undetermined intent, initial encounter [T50.904A]PT Diagnosis: Integument compromiseWeight Bearing Precaution: NAGeneral Precautions: PPE used:Gloves and Gown, General, Fall, Contact isolation,IV disconnectedBracing/Cast present or required:N/APMH:Past Medical History:Diagnosis DateCAD (coronary artery disease)HLD (hyperlipidemia)HTN (hypertension)Hx of BKA, leftICAO (internal carotid artery occlusion), leftS/p COEPSH: No past surgical history on file.Nutritional status:HGBDate Value Ref Range Gjzwjl2007/10/2023 15.9 12.2 - 16.4 g/dL FinalALBUMINDate Value Ref Range Bffhht1207/06/2023 4.5 3.5 - 5.0 g/dL FinalHGB V8PUmsu Value Ref Range Gtijky8107/06/2023 11.0 (H) 4.0 - 5.7 % FinalPrior Living Situation: Lives with his ex divrqnn-zm-bhc in a travel trailer with a built on porch and grab bar on the side of the trailer Able to negotiate: YesDME: Quad Cane, Wheel ChairPrior level of Mobility: community ambulation, house hold ambulation, ambulates with no deviceSubjective: patient states that he's been telling [staff] about the wound but no one listened. States that he has had it debrided by a nurse/doctor before.Patient/Family Goals: go homePatient/Family verbalizes understanding of condition: YesPAIN:denies pain before and after sessionCOMMUNICATIONPrimary Language: EnglishAble to Verbalize needs: YesVision:good; no issues reported Hearing:good; no issues reportedORIENTATION/COGNITION:[place] ed to: person, place, date/time, and situationFollows Commands: YesNEUROLOGICALLight Touch: within functional limits bilateral LETone: normalRANGE OF MOTION: bilateral LE, within functional limitsPROBLEM LIST: Integument compromiseASSESSMENT: Patient is a 58 year old male evaluated secondary to the integument compromise. Patient would benefit from continued PT for wound care to address the above listed problems and to maximize healing.Healing Potential: goodTreatment Plan: Wound cleaning and Selective/non-excisional debridement of necrotic tissueThe following goals are to maximize wound healing and foster normal integumentary status to allow patient to participate in normal daily activities.GOALS: upon discharge:1. Promote granulation tissue to 100% of wound bed.2. Control bioburden and infection.3. Control drainage of wound via use of dressings to prevent maceration and infection.PATIENT EDUCATION: Patient provided with preferred teaching of verbal information on role of PT, plan of care, and wound care instructions. Shows readiness to learn. Verbal instruction teaching provided. Individual is able to read and verbalizes understanding of teaching provided.Kasandra Ramon, PT, DPTTotal Treatment Time in Minutes: 11 Min 36509-0Aupajja modsBO8881-87-90Q65:40:30Consult [id number] .[id number] for patient khjj51955-4Aqvsrda noteLNNARRATIVEFormatted C-CDA narrative textUT52 Andrews StreetDc[id number] TRNEEEWZXNZNFWMRJYNNNH3909-96-70U61: 40:301.2.840.444866.1.72.3.15|1.2.84 0.4[id number]_20138 22176 [facility] 2023-07-10 10:55:00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 therefore, diagnosis of bipolar disorder is uncertain at this time. In the setting of suspected but unconfirmed overdose, the diagnosis of mood disorder, unspecified is most appropriate at this time. Although the patient would likely benefit from psychiatric medications, the patient is not interested in taking any psychiatric medications at this time. During out interaction, the patient appeared to be irritable but was never acutely agitated or aggressive. Use of physical restraints should always be used as infrequently as possible to ensure the safety of patient's and others, and as such, the patient would benefit from a trial without physical restraints with q2hour assessments to determine if reinitiating restraints is necessary. In the setting of acute aggression, we recommend offering Haldol 5 mg PO and benadryl 50mg PO. If patient is not agreeable to PO medication, and patient is acting in a way that he is deemed to be a physical threat to self or others, administer Haldol 5 mg IM + Ativan 2mg IM + benadryl 50 mg IM.DIAGNOSES/PLAN:1. Mood disorder, unspecified- Recommend recommend removing restraints. If patient becomes physically aggressive towards self or other consider replacing restraints. When placed, perform q2hour assessments to determine if removal of restraints is appropriate- Recommend Haldol 5 mg PO and benadryl 50mg PO prn for acute agitation. If patient is not aggreeable to PO medication, and patient is acting in a way that he is deemed to be a physical threat to self or others, we recommend Haldol 5 mg IM + Ativan 2mg IM + benadryl 50 mg IM prn- Continue 1:1 sitter for patient monitoring in the context of recent physical aggression- We recommend primary team to encourage patient to store his firearms at a location other than his home.- Patient recommended to follow up with [facility] Outpatient Psychiatry ([place]): [phone], ([place]): [phone] or [facility]: or [facility]: or [facility]: [phone] after hospital discharge for psychiatric medicationsIf the patient feels in danger, suicidal, pt can contact these suicide hotlines or or to go to the nearest emergency department.Thank you for this consult. Will continue to follow.Patient discussed with Psychiatry faculty, Dr. Denis, who agrees with the assessment and plan as outlined above.Dmitri Anton MS4C/L Pager # [phone]/I personally examined the patient on 07/08/23 and have verified the above medical student documentation and/or findings, including the history, physical/mental status exam, and medical decision making. Additionally, I have personally performed or re-performed the physical exam and medical decision making activities of this patient's evaluation and management service.Nadir Kenny MDLOV[facility] Department of Psychiatry, PGY- ssociated attestation - Callie Denis MD - 07/08/2023 2:52 PM CST I saw/examined this patient with Dr. Kenny and Med Student Desean. I actively participated in the medical decision-making process and I agree with the attached note. Patient is not currently expressing/exhibiting behaviors indicating imminent risk of harm to self or others, and the reports we have of possible suicide attempt are third-hand (hearsay), so we do not have grounds to force psych admission against his will.[id number] [id number], Gwen1.2.840.355947.1.13.104.2.7.2.83 8010NbvydwPwacTB3018-60-73I54:52:34C onsult noteTXT1.2.840.017924.1.13.104.2.7.2 .[id number]|[id number] for patient vxjz95247-8Jxxhiad noteLNNARRATIVEFormatted C-CDA narrative text[address] [id number] SRTXNPQUAQIPTKEXFCWKAM3607-42-13V85: 52:341.2.840.566873.1.72.3.15|1.2.84 0.950842.1.13.104.2.7.2.727879_ [facility] 2023-07-08 09:30:00 0512-76-21F11:30:00Associated Order(s): CONSULT SPEECH Speech-Language PathologyClinical Swallow Evaluation4Robert Jason Salazar : 1965 Age/Sex: 58 year old male IN/OUT: 0930-1000Referring Physician: Andrae of Referral: 07/07/23Reason for Referral: dysphagiaDate of Admission/Onset: 07/06/23SUBJECTIVE:Patient is awake/alert, minimally cooperative, though agreeable to evaluation. Patient is agitated and confused. He is A&O x person, time. No family at bedside, though sitter in doorway. Patient with c/o his "teeth falling out", referring to his upper dentures falling out of place. Upon further evaluation, no uppers in place; patient believes his NGT is partials and pulling it further out of his mouth with his tongue. RN pulled NGT d/t it being dislodged prior to completing evaluation.OBJECTIVE: is being seen for a clinical swallow evaluation. Per recent MD note, "Bright Salazar is a 58 year old male with a pertinent PMH of Bright Salazar is a 58 year old male with PMH of HTN, HLD, CAD status post CABG, left-sided ICA stenosis status post CEA, TIIDM, multiple prior suicide attempts, and a history of left agwjw-zul-affy amputation (BKA) who presented for AMS. Per EMS, patient found next to empty bottle of ambien and flexeril that was recently refilled. 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 Intubated in ER for airway protection. Poison control contacted for overdose recommendations, recommended close monitoring for seizures and EKG monitoring - no concerns of these were found. Patient successfully extubated and suicide precautions instated." Patient intubated 07/06, extubated 07/06. Please see MD notes for further detail.Pertinent Imaging:XR KUBResult Date: 07/08/2023FINDINGS / IMPRESSION: Lines and tubes: The enteric tube has been advanced and its tip and the sidehole of projects over the mid gastric body, good in position. Bowel: The visualized bowel gas pattern is nonobstructive. Bones: Incidental fracture of the lower most sternotomy sutures is seen. Other: Right upper quadrant surgical clips are seen, which can be seen with patient's prior history of cholecystectomy. Preliminary Report Dictated by Resident: Mateo Wynn I, Rashad Rasmussen MD., have reviewed this study and agree with the above report.CT ACUTE STROKE HEAD WO CONTRASTResult Date: 07/06/2023Large right parieto-occipital encephalomalacia. No clearly acute lesion. Findings were discussed with Dr Batista at 1.11 AM on 07/06/2023.2 Preliminary Report Dictated by Resident: Arsh Jon MD., have reviewed this study and agree with the above report.CT ACUTE STROKE ANGIOGRAM HEADResult Date: 07/06/2023No aneurysm or high-grade stenosis of the intracranial or extracranial vessels. Atherosclerotic disease in the left carotid bulb results in 40-50% stenosis of the proximal left cervical ICA. 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 Preliminary Report Dictated by Resident: Arsh Jon MD., have reviewed this study and agree with the above report.CT ACUTE STROKE ANGIOGRAM NECKResult Date: 07/06/2023No aneurysm or high-grade stenosis of the intracranial or extracranial vessels. Atherosclerotic disease in the left carotid bulb results in 40-50% stenosis of the proximal left cervical ICA. 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 Preliminary Report Dictated by Resident: Arsh Jon MD., have reviewed this study and agree with the above report.XR ABDOMEN 1 VWResult Date: . The esophagogastric tube terminates over the proximal gastric body. 2. Stool is present throughout the colon suggesting constipation. RL: 5767 XR CHEST 1 VWResult Date: . A patchy airspace opacity in the periphery of the right lung is identified. 2. Endotracheal tube and esophagogastric tube are present as above. RL: 5767 Previous WARDROBE COORDINATOR Services/Swallow History:None reported nor documented.Past Medical History:Diagnosis DateCAD (coronary artery disease)HLD (hyperlipidemia)HTN (hypertension)Hx of BKA, leftICAO (internal carotid artery occlusion), leftS/p COENo past surgical history on file.General Behavior: Alert, Agitated, Combative, and Decreased ability to follow directionsHearing: WFL for speechRespiratory Status: room airOrientation/Cognition:- Patient oriented to: person and time- Response type: verbal, gestures, and facial expressions- Follows 1-step commands: InconsistentlyCurrent Diet Texture/Means of Nutrition: NPO pending WARDROBE COORDINATOR evaluationOral Motor ExamDentition and Oral Cavity: dentate, dentures or partials, dried secretions, and thick secretionsFace impaired function, characterized by L side does not appear as mobile as RJaw symmetricalLips within normal limits and symmetricalTongue within normal limits and midline on protrusionPalate unable to assess/did not assessVocal Quality muffledSpeech decreased intelligibilityCLINICAL SWALLOW EVALUATIONSwallows on command: YesHandles Secretions: Appears toVolitional Cough: presentSpontaneous Cough: NoPO trials were administered by WARDROBE COORDINATOR. Patient was provided with multiple bites/sips of ice chips and thin liquid (0) consistencies with the following observations:Oral Stage Anterior leakage of bolus not observedPocketing of bolus not observedSubjectively prolonged oral phase not observedOral residue not observedMastication did not testPharyngeal Stage Subjectively reduced laryngeal elevation not observedCoughing or throat clearing not observedChange in voice quality not observedMultiple swallows subjectively not observedRespiratory sufficiency and coordination WFL - no increased work of breathing and/or oxygen sats and respiratory rate remained stableReport of globus sensation does not report3 oz water challenge Failed, unable to consume enough waterPatient/Family/Staff education: Provided verbally. Discussed findings of evaluation, recommendations and WARDROBE COORDINATOR plan of care. Discussed importance of frequent, thorough oral hygiene care. Discussed option for free water protocol and precautions for use. RN and referring provider notified of findings and recommendations.Patient/Family goal: "to go to the bathroom on my own". Otherwise, not directly statedASSESSMENT/IMPRESSIONS:Bright Loweadenikekristyn presents with:Diagnosis: possible oropharyngeal dysphagiaEtiology of suspected dysphagia/Risk factors for dysphagia: AMS and recent intubation, though suspect to be most consistent with AMSObservations/Complaints: no overt s/sx of aspiration, though vocal quality is muffled - suspected to be 2/2 excess secretions that are thick and dried in and around oral cavity/throat.Factors raising concern for aspiration or pharyngeal dysphagia: AMSSuspected risk for aspiration: yesFactors increasing risk for aspiration-related respiratory complication such as pneumonia: reduced mobility, poor oral hygiene, and dependence on others for oral hygiene and feedingRisk for malnutrition/dehydration or not meeting nutritional needs: yesAdditional comments: WARDROBE COORDINATOR provided thorough oral care prior to po intake. Patient minimally receptive to this, though necessary given excessive amount of thick, dried secretions. When provided max verbal cues, patient able to cough secretions into oral cavity, which were then cleared with oral suction (rashel).*Note: aspiration cannot be ruled out nor confirmed without instrumental assessment/imaging.Prognosis: guarded for safe po intake and meeting nutrition/hydration needs by mouth due to above findings.RECOMMENDATIONS/GOALS:Diet: Recommend patient be NPO until WARDROBE COORDINATOR re-assessment; may consider placement of short-term SHARITA (DH/NGT)Precautions:- Recommend free water protocol (small amounts of unthickened water/ice chips only - NO FLAVORING) PRN for QOL, despite aspiration risks, with strict adherence to the following precaution: Oral hygiene/care must be completed prior to water/ice intake.Instrumental Swallow Assessment:- Likely indicated in the coming days with improvement in mentation/alertness.Additional Referrals:- None evident at this time.Continued WARDROBE COORDINATOR services while in-house:Recommend WARDROBE COORDINATOR therapy 2-5x/wk for 15-45 min/session while in-house to address the following goals:Swallowing:- Patient will participate in on-going swallow re-evaluation at the bedside to determine readiness/safety for PO vs need/timing for objective swallow assessmentDischarge Recommendations:- TBD pending ongoing work-up/progress made while in-house.Layne Gutierrez MS, WARDROBE COORDINATOR-InternSpeech Pathology ResidentP: [phone]: [phone] ssociated attestation - Ofelia Maurice SLP - 07/08/2023 4:11 PM CST I agree with the assessment and recommendations as completed and documented by Layne Gutierrez MS, WARDROBE COORDINATOR-Tank Crewmember.Ofelia Maurice MS, JOP-EKQGyujfg-Vyrmemrw PathologistOffice: [phone]: [phone] [id number], Ashley B1.2.840.584059.1.13.104.2.7.2.32936 2UmgcxlSqflfrNNKO0332-13-70Q59:11:06 Consult noteTXT1.2.840.607730.1.13.104.2.7.2 .512180|[id number] for patient fnki84196-9Ntrgnhf noteLNNARRATIVEFormatted C-CDA narrative text[address] Os[id number] HTGQGPYFJAAQDHHFPDXISD6717-60-02F14: 11:061.2.840.019864.1.72.3.15|1.2.84 0.554045.1.13.104.2.7.2.727879_20115 20[address] [facility] 2023-02-14 14:55:00 0037-52-94T10:55:00Associated Order(s): CONSULT GENERAL SURGERY Images from the original note were not included.GENERAL SURGERY CONSULT NOTEDate of Service: 02/14/2023Requesting Physician: MD Omid Chief Complaint: Neck and L BKA pain HPIBright Salazar is a 57 year old male who is presenting with neck and leg pain. He underwent L BKA in with Dr. Root in [facility]. Procedure was complicated with SSI and wound packing and washout by operating surgeon. He did well till 2 weeks ago when started to have pain from his stump and tenderness to palpation with small opening anterior side. He also reported worsening neck wound that started with small bug bite and progressed to large area of swelling and tenderness. He is denying any fever, chills, N/V, or drainage from his stump CURRENT HOSPITAL MEDICATIONSCurrent Facility-Administered Medications Medication Dose Route Frequency Last Rate Last Admin ceFEPIme (MAXIPIME) 1,000 mg in NaCl 0.9% (NS) 100 mL MINI-BAG 1,000 mg IV Piggyback Q8H ABX clopidogreL (PLAVIX) 75 mg tablet 75 mg 75 mg Oral DAILY 75 mg at 02/14/23 0817 cyclobenzaprine (FLEXERIL) tablet 5 mg 5 mg Oral TIDPRN gabapentin (NEURONTIN) capsule 300 mg 300 mg Oral TID 300 mg at 02/14/23 1431 morpHINE (2 mg/mL) injection 2 mg 2 mg Slow IV Push Q4HPRN 2 mg at 02/14/23 1431 acetaminophen (TYLENOL) tablet 1,000 mg 1,000 mg Oral Q8HPRN docusate (COLACE) capsule 100 mg 100 mg Oral BID enoxaparin (LOVENOX) injection 40 mg 40 mg Subcutaneous DAILY 40 mg at 02/14/23 0817 HYDROcodone-acetaminophen (NORCO) 10-325 mg tablet 1 tablet 1 tablet Oral Q6HPRN 1 tablet at 02/14/23 0925 ondansetron (ZOFRAN (PF)) injection 4 mg 4 mg Slow IV Push Q6HPRN Sliding Scale Insulin - Lispro (HumaLOG) Subcutaneous TID MEALS+HS 1 Units at 02/14/23 1229 vancomycin 1,250 mg in NaCl 0.9% (NS) 250 mL VIAL-MATE IV piggyback 15 mg/kg IV Piggyback Q12H ABX Stopped at 02/14/23 0953 Review of Systems(-)=Negative,(+)=PositiveCons titutional: negativeHEENT: negativeCardio: negativeResp: negativeGI: negativeGU: negativeMSS: (+) muscle pain, (+) joint painNeuro: negativeHem/Lymphatic: negativeAllergic/Immunologic: negativeHISTORIESNo past medical history on file.No past surgical history on file.No family history on file.Social History Socioeconomic History Marital status: Tobacco Use Smoking status: Every Day Types: Cigarettes Passive exposure: Current Smokeless tobacco: Never Physical ExamVitals: Vitals: 02/13/23 2205 02/14/23 0338 02/14/23 0706 02/14/23 1210 BP: (!) 143/84 (!) 142/76 (!) 153/83 121/80 Pulse: 91 78 78 78 Resp: 18 18 16 18 Temp: 36.6 ?C (97.9 ?F) 36.1 ?C (97 ?F) 36.3 ?C (97.4 ?F) 36.3 ?C (97.4 ?F) TempSrc: Temporal Artery Temporal Artery SpO2: 99% 95% 95% 98% Weight: Height: (-)=Negative,(+)=PositiveGeneral: alert and oriented x 3 (person, place, and date/time); no apparent distressHEENT: normocephalic. Back of neck has large area of erythema, fluctuance and induration with necrotic center Respiratory: Breathing comfortably Cardio: regular rate Abdomen: soft and NT/NDRectal: not testedMusculoskeletal: L BKA stump has small opening with tenderness to palpation but no erythema or fluctuance LABORATORYHemogramRecent Labs 02/14/2305 WBC 10.53 8.69 HGB 16.8* 15.2 HCT 49.9* 44.9 PLT 174 203 ChemistryRecent Labs 02/14/2305 NA 137 136 K 4.3 4.0 CL 103 103 TCO2 22* 25 BUN 15 13 CREAT 0.75 0.68 GLU 226* 183* CA 9.7 8.9 RADIOLOGYCT KNEE LEFT W CONTRASTResult Date: 02/13/2023Impression: Small amount of fluid in ill-defined pocket at the amputation site could represent a bland bursal fluid accumulation or a small developing abscess. Mild erosion at the tibial amputation site which could represent osteomyelitis. MRI imaging might be considered for further evaluation. OLOGYN/aASSESSMENT/PLAN:Bright Salazar is a 57 year old male with PMH/PSH as stated above presenting with neck abscess. He also has tenderness in L BKA stump and CT scan is concerning for osteomyelitis. We will perform I&D for the neck abscess. We recommend consulting orthopaedic surgery and ID to manage for possible osteomyelitis I&D at bedside of neck abscess done at bedside. Refer to procedure note for further detailsWound is packed. Will remove packing tomorrowContinue abx Rest of care per primary Andrade Cortez MD 02/14/2023 2:55 PMGeneral Surgery PGY 2 ssociated attestation - Eloina Estrada MD - 02/14/2023 5:49 PM CDT I personally examined the patient on 02/14/[address] Cortez's resident note as written . I actively participated in the decision-making process. Please see the resident's note for additional details. Defer BKA stump to ortho. I think the CT with finding of track is from the packing. I do not see overt abscess. If OM is suspected, recommend MRIFor neck abscess, we will do a bedside I&D [place] [id number] [id number], [place]1.2.840.313916.1.13.104.2.7. 2.412525BvjrHdzlczbgAQ3315-01-31V21: 49:26Consult noteTXT1.2.840.559665.1.13.104.2.7.2 .527887|[id number] for patient xbsj34868-6Ufobvsy note[address] Green [id number] VHNXIKVZKNHPBOSUJFOLNL5261-61-25M20: 49:261.2.840.856442.1.72.3.15|1.2.84 0.093822.1.13.104.2.7.2.727879_18949 18417 [facility] 2023-02-14 11:49:48 0405-01-96U38:49:48Associated Order(s): CONSULT WOUND, OSTOMY, OR CONTINENCE CARE TEAM Images from the original note were not included.[facility] NURSE NOTE:Wound Care Consult received and chart reviewed. General Surgery and Orthopedic surgery consulted for post-op surgical wound abscess. Will defer to them at this time. The wound to the back of the neck appears to be an infected bug bite or an abscess with surrounding erythema, induration and a necrotic center. Please have evaluated by Infectious disease or general surgery. If wound on neck is oozing or becomes open, apply antibiotic ointment covered by gauze/tape until further recommendations are provided. Please contact the [facility] Nurse if additional consult or recommendations are desired. Thank you for the consult. Tamia Calzada, MSN, RN, CWOCN, CCRNWound, Ostomy & Continence [facility] [phone] [email or web address] glprIH5862-79-67J15:53:56Consult noteTXT1.2.840.129108.1.13.104.2.7.2 .683310|[id number] for patient vcdu67455-9Irlktsi [id number] M Cannon RNCOMMUNITY MEMORIAL [facility] - [id number] SKKWKLFLNNXXZFERHGRNAU8348-52-37J43: 53:561.2.840.639649.1.72.3.15|1.2.84 0.810946.1.13.104.2.7.2.727879_18947 20338 Tamia Calzada RN [facility] - Health History and Physical Notes Date/Time Note Provider Source 2023-07-06 03:21:27 7774-41-03T40:21:27F ormatting of this note is different from the original.Medicine Intensive Care History and PhysicalDate of Service: 07/06/2023 03:32ICU day: 0Intubation Day: 1CHIEF COMPLAINT: AMSHistory of Present IllnessBright Salazar is a 58 year old male with PMH of HTN, HLD, CAD status post CABG, left-sided ICA stenosis status post CEA, TIIDM, and a history of left uajgm-mff-ikzq amputation (BKA) who presented for AMS.Patient intubated and sedated at time of evaluation. But per EMS, patient was found down and poorly responsive in his home. Patient was found next to an empty bottle of ambien and flexeril that was recently refilled as well. Code stroke was called in the field due to reported R sided facial droop.Upon arrival to [facility], patient was reportedly alert but not oriented, unable to follow commands. BP 134/76, pulse 72, temp 36.6C, Resp 20. Hgb 17.4, K 5.2, Cr 0.65, trop negative. Stroke workup came back negative for CVA but did show 40-50% stenosis of prox L cervical ICA and hyperdense masses of R parotid gland that could be primary parotid neoplasms. Neurology evaluated scans and deemed mentation likely 2/2 metabolic vs drug induced. Following his CT scan, patient's mentation was worsened and pt was no longer protecting his airway so he was intubated.PAST MEDICAL HISTORYPast Medical History:Diagnosis DateCAD (coronary artery disease)HLD (hyperlipidemia)HTN (hypertension)Hx of BKA, leftICAO (internal carotid artery occlusion), leftS/p COEPAST SURGICAL HISTORYNo past surgical history on file.FAMILY HISTORYNo family history on file.SOCIAL HISTORYSocial HistorySocioeconomic HistoryMarital status: DivorcedTobacco UseSmoking status: Every DayTypes: CigarettesPassive exposure: CurrentSmokeless tobacco: NeverSocial Determinants of HealthFinancial Resource Strain: Low Risk (02/14/2023)Overall Financial Resource Strain (CARDIA)Difficulty of Paying Living Expenses: Not hard at allFood Insecurity: No Food Insecurity (02/14/2023)Hunger Vital SignWorried About Running Out of Food in the Last Year: Never trueRan Out of Food in the Last Year: Never trueTransportation Needs: No Transportation Needs (02/14/2023)PRAPARE - TransportationLack of Transportation (Medical): NoLack of Transportation (Non-Medical): NoPhysical Activity: Inactive (02/14/2023)Exercise Vital SignDays of Exercise per Week: 0 daysMinutes of Exercise per Session: 0 minSocial Connections: Unknown (02/14/2023)Social Connection and Isolation Panel [NHANES]Frequency of Communication with Friends and Family: More than three times a weekMarital Status: DivorcedHousing Stability: Low Risk (02/14/2023)Housing Stability Vital SignUnable to Pay for Housing in the Last Year: NoNumber of Places Lived in the Last Year: 2Unstable Housing in the Last Year: NoALLERGIESNo Known AllergiesREVIEW OF SYSTEMS Per HPIPHYSICAL EXAMINATIONVitals:07/06/23 0200 07/06/23 0237 07/06/23 0247 07/06/23 0300BP: 107/80 102/65Pulse: 70 71 68 68Resp: 20 14 14 25Temp: 36.5 ?C (97.7 ?F)TempSrc: AxillarySpO2: 97% 100% 99% 99%Weight:General: SedatedLungs: CTAB, intubatedCardio: RRR, no m/g/rAbdomen: soft, NT ND, no fluid wave, no palpable hepatomegalySkin: Mid-spinous upper lumbar scab noted without fluctuance or appearance of active infection (picture in MAR)Extremities: No edema, strong peripheral pulses. Cool R foot and cool L stump. L stump without s/s infection (picture in MAR)Labs (pertinent only)/Imaging: ReviewedMicrobiology: NoneAssessment/Plan:Bright Salazar is a 58 year old male admitted with AMSNeuroHx of L ICA stenosis s/p CEAAMS 2/2 metabolic encephalopathy vs drug inducedC/f overdose of ambien, flexerilPatient presented with AMS after likely overdosing on ambien and flexeril. Intubated for airway protection and code stroke negative. Will obtain more labs to investigate possible ingestion and contact poison control for further assistance.-Sedation/Analgesia: other: propofol-Minimize sedation-F/u UDS-Salicylate, ammonia, ethanol-Contact poison control-Holding Gabapentin 300mg TID-Holding home quetiapineRespIntubated for airway protectionIntubated in ER due to poor ability to protect airway. Will wean to minimal settings and SBT once ready. CXR showed patchy R lung opacity, could be related to aspiration. Will defer on abx unless pt develops fever.-Wean vent settings as tolerated-Deferring on zosyn for now, can start if pt feversCardiovascularCAD s/p CABGHTNHLDTrops negative. EKG with normal Qti and QRS. No acute concerns. Will hold lopressor but continue plavix.-C/w home plavix-holding home lopressor 50mg BIDFEN/GIParotid masses c/f neoplasm via CT H 07/05/23No acute concerns. KUB shows some potential constipation.-Stress ulcer prophylaxis: PPI-NPO except meds-F/u parotid findings outpatientIDNo acute concerns.RenalHyperkalemiaMild hyperkalemia in hemolyzed sample. Will give some fluids and monitor.-500 CC NS-Monitor potassiumEndoTIIDML BKAPatient hyperglycemic. Will resume home detemir and cover with SSI. L BKA site clean.-Insulin detemir 10u QHS-SSIOtherDVT prophylaxis: heparinLines/Catheters:PIV-L AC 07/06/23-L hand 07/06/23Foley 07/06/23Dispo: MICUPrognosis: GuardedCode Status: Presumed FullAlexander MD DanitzaInternal Medicine, PGY-1Remmers Team ssociated attestation - Claude Cooley MD - 07/06/2023 11:51 AM CST I personally examined the patient on 07/06/[address] Bosch's resident note with the following addition(s): Patient with acute hypoxic respiratory failure, s/p suspected drug overdose, altered mentation. Labs, imaging and ventilatory parameters personally reviewed. Hold sedation and assess for weaning trial. Continue suicide observation . I actively participated in the decision-making process. Please see the resident's note for additional details.I spent 31 minute(s) on date 07/06/23 personally caring for this critically ill patient on the unit/floor. The patient was critically ill due to drug overdose and respiratory failure.I performed the following services: reviewed imaging studies and reviewed test results. Examined patient, reviewed ventilatory parameters and actively participated in decision making process..Claude Cooley MDMICU Cxqjspytc28527-3Sqkmgzl and physical bcdgMS0100902Nfbpax, Shahzad1.2.840.964463.1.13.104.2.7.2.8 37938YplwbuUvwpysjHP9109-60-28I99:51:1 6History and physical noteTXT1.2.840.395771.1.13.104.2.7.2.7 70097|[id number] for patient jlnf39231-1Msutfkf and physical noteLNNARRATIVEFormatted C-CDA narrative textUT[address] Lv[id number] WASXQYDUDWEHZRITHKKP7041-95-30N96:51:1 61.2.840.539660.1.72.3.15|1.2.840.1143 50.1.13.104.2.7.2.727879_[id number] [facility] 2023-07-06 00:53:18 0526-88-90C25:53:18F ormatting of this note is different from the original.STROKE SERVICE CONSULTDATE OF SERVICE: 07/06/2023 01:46REASON FOR CONSULT: AMSHISTORY OF PRESENT ILLNESSRobert Jason Salazar is a 58-year-old male of unknown handedness, presents with a medical history including HTN, HLD, CADstatus post CABG, left-sided ICA stenosis status post CEA, and a history of left kkego-ovk-cvnz amputation (BKA). He arrived at the emergency department with a chief complaint of altered mental status.According to reports, the patient was in his usual state of health until approximately 11:30 PM when his friend discovered him on the ground in an altered state. EMS were promptly summoned. Upon EMS arrival, they noted a mild right-sided facial droop, which, interestingly, was not apparent upon the patient's arrival at the emergency room.Upon admission to [facility], the patient was found to be agitated and not alert or oriented. He presented with an altered level of consciousness, with vital signs showing an alert, febrile, vital signs stable, and blood glucose in the 350s range. Given the clinical presentation and the patient's medical history, the stroke team was promptly consulted for further evaluation and management.Antiplatelets: YesAnticoagulations: NoTobacco abuse: UnknownAlcohol abuse: UnknownDrug abuse: UnknownPrevious stroke: Yes right parieto occipital regionBody mass index is 27.26 kg/m?.STROKE DOCUMENTATIONStroke Activation - Date: 07/06/23Stroke Activation - Time: 1228Physician arrival at bedside - Date: 07/06/23Physician arrival at bedside - Time: 1235CT-Head without contrast read by Neurology: 0100 (pt agitated)Last seen normal:Last known well - Date: 07/06/23Last known well - Time: 1130Wake up stroke:NoNIH STROKE SCALENIHSS TOTAL: 0NIHSS Interval: OtherLOC: 0 Alert: Keenly ResponsiveLOC QUESTIONS: 0 Answers Both Questions CorrectlyLOC COMMANDS: 0 Performs Both Tasks CorrectlyBEST GAZE: 0 NormalVISUAL: 0 No Visual LossFACIAL PALSY: 0 NormalMOTOR ARM-LEFT: 0 No DriftMOTOR ARM-RIGHT: 0 No DriftMOTOR LEG-LEFT: 0 No DriftMOTOR LEG-RIGHT: 0 No DriftLIMB ATAXIA: 0 AbsentSENSORY: 0 NormalBEST LANGUAGE: 0 No AphasiaDYSARTHRIA: 0 NormalEXTINCTION AND INATTENTION (FORMERLY NEGLECT): 0 No AbnormaltyDysphagia Screen:IV Alteplase:Was IV thrombolytic therapy given?: Laine no IV thrombolytic therapy initiated: NIH equals 0;Non- disabilingIf IV Thrombolytic therapy was indicated and given as a standard of care was the patient/family informed of benefits of treatment and risk such as hemorrhage and/or angioedema?: (not recorded)Was there a delay in door to IV thrombolytic over 30 minutes?: (not recorded)Reason (s): (not recorded)ICH/SAHICH/SAH: NoEndovascular Intervention:Was Endovascular Intervention Performed?: Laine patient is not a candidate for endovascular intervention: Imaging: no large vessel occlusion;NIH less than or equal to 6PRE- ADMISSION MODIFIED MONALISA SCORE0 - No symptoms at allPAST MEDICAL HISTORYNo past medical history on file.PAST SURGICAL HISTORYNo past surgical history on file.FAMILY HISTORYNo family history on file.SOCIAL HISTORYSocial HistorySocioeconomic HistoryMarital status: DivorcedTobacco UseSmoking status: Every DayTypes: CigarettesPassive exposure: CurrentSmokeless tobacco: NeverSocial Determinants of HealthFinancial Resource Strain: Low Risk (02/14/2023)Overall Financial Resource Strain (CARDIA)Difficulty of Paying Living Expenses: Not hard at allFood Insecurity: No Food Insecurity (02/14/2023)Hunger Vital SignWorried About Running Out of Food in the Last Year: Never trueRan Out of Food in the Last Year: Never trueTransportation Needs: No Transportation Needs (02/14/2023)PRAPARE - TransportationLack of Transportation (Medical): NoLack of Transportation (Non-Medical): NoPhysical Activity: Inactive (02/14/2023)Exercise Vital SignDays of Exercise per Week: 0 daysMinutes of Exercise per Session: 0 minSocial Connections: Unknown (02/14/2023)Social Connection and Isolation Panel [NHANES]Frequency of Communication with Friends and Family: More than three times a weekMarital Status: DivorcedHousing Stability: Low Risk (02/14/2023)Housing Stability Vital SignUnable to Pay for Housing in the Last Year: NoNumber of Places Lived in the Last Year: 2Unstable Housing in the Last Year: NoReviewed patient's family, surgical and social hx.HOME MEDICATIONS(Not in a hospital admission)HOSPITAL MEDICATIONSCurrent Facility-Administered MedicationsMedication Dose Route Frequency Last Rate Last AdminNaCl 0.9% (NS) bolus infusion 1,000 mL 1,000 mL IV Piggyback ONCENaCl 0.9% (NS) injection 5 mL 5 mL Slow IV Push PRN - SEE INSTRUCTIONSCurrent Outpatient MedicationsMedication Sig Dispense RefillclopidogreL 75 mg tablet Take 1 tablet by mouth in the morning. 30 tablet 0gabapentin 300 mg capsule Take 1 capsule by mouth in the morning and 1 capsule at noon and 1 capsule in the evening. 90 capsule 0Insulin Detemir (LEVEMIR FLEXPEN) 100 unit/mL (3 mL) injection inject 10 Units under the skin at bedtime. 2 Each 0insulin regular human (NOVOLIN R REGULAR U100 INSULIN) 100 unit/mL injection inject 8 Units under the skin 2 (two) times daily before breakfast and dinner. 5 mL 0metoprolol tartrate (LOPRESSOR) 50 mg tablet Take 1 tablet by mouth in the morning and 1 tablet in the evening. 60 tablet 0silver sulfADIAZINE (SILVADENE) 1 % cream Apply to area(s) 2 (two) times daily. 25 g 0QUEtiapine 50 mg tablet Take 1 tablet by mouth in the morning and 1 tablet in the evening.ALLERGYNo Known AllergiesREVIEW OF SYSTEMSGeneral: (-) fever, (-) chills, (-) weight change, (-) dizziness, (-) fatigue, (-) change in appetiteSkin: (-) rash, (-) lesionHEENT: (-) headache, (-) change in hearing, (-) change in vision, (-) nasal discharge, (-) sore throatNeck: (-) pain, (-) difficulty swallowing, (-) massHeme: (-) bleeding disorderResp: (-) cough, (-) shortness of breath, (-) dyspnea on exertionCardio: (-) chest pain, (-) palpitations, (-) syncopeGI: (-) abdominal pain, (-) nausea, (-) vomiting, (-) diarrhea, (-) constipation, (-) melena, (-) hematochezia, (-) hematemesisGU: (-) dysuria, (-) hematuria, (-) increased frequency, (-) difficulty urinating, (-) difficulty initiatingEndo: (-) heat intolerance, (-) diabetes, (-) cold intolerance, (-) polyuria, (-) polydipsia, (-) renal insufficiency, (-) thyroid diseaseNeuro: (-) numbness, (-) tingling, (-) weaknessBack: (-) pain, (-) spasmsMSS: (-) muscle pain, (-) joint pain, (-) claudicationPsych: (-) anxiety, (-) depression, (-) psychiatric disorderPHYSICAL EXAMVitals:07/06/23 0040 07/06/23 0055 07/06/23 0058 07/06/23 0125BP: (!) 151/82 134/76 129/77Pulse: 78 72 79Resp: 19Temp: 36.6 ?C (97.9 ?F) 36.6 ?C (97.9 ?F) 36.5 ?C (97.7 ?F)TempSrc: Axillary Axillary AxillarySpO2: 94% 94% 94%Weight: 93.4 kg (206 lb) 91.2 kg (201 lb)General:Alert and oriented x 1.Mental Status:Consciousness, attention, concentration: impaired.Speech/ Language: intact to comprehension, fluency, repetition and naming.Fund of knowledge: UTACranial Nerves:I. Not tested.II. PERRL. FOV full to confrontation. Discs visualized, no papilledema.III. IV., . Extraocular movements intact without nystagmus.V. UTAVII. No facial droop noted.VIII. Hearing intact.IX., X. Palatal elevation and gag response present symmetrically.XI. UTAXII. Tongue in midline.Motor:Tone: normalBulk: normalSTRENGTH:UE b/l 3/5LE b/l 3/5DTR's:1+Pathologic reflexes and signs:Leiva: absentBabinski: absentCerebellar:Could not be evaluated.Gait: deferredHEENT: pupils equal, round, reactive to light; extraocular movements intact; oropharynx clear; moist mucous membranesLungs: clear to auscultation bilaterallyCardio: S1, S2 normalExtremities:no cyanosis,clubbing or edemaNeck:supple,no carotid bruit,no JVDAbdomen: soft; non-tender; non-distended; normoactive bowel sounds heardLABSRecent Results (from the past 24 hour(s))POCT Glucose (Age >30 Days) - Code StrokeCollection Time: 07/06/23 12:44 AMResult Value Ref RangePOCT Glu (age>30days) 352 (A) 70 - 110 mg/dLProthrombin Time / INR - Code StrokeCollection Time: 07/06/23 12:50 AMResult Value Ref RangePROTIME PATIENT 10.5 10.1 - 12.6 SecondsINR 0.9aPTT - Code StrokeCollection Time: 07/06/23 12:50 AMResult Value Ref RangeAPTT Patient 31 26 - 36 SecondsCBC without Diff - Code StrokeCollection Time: 07/06/23 12:50 AMResult Value Ref RangeWBC 8.45 4.20 - 10.70 10*3/?LRBC 5.92 (H) 4.26 - 5.52 10*6/?LHGB 17.4 (H) 12.2 - 16.4 g/dLHCT 50.0 (H) 38.4 - 49.3 %MCH 29.4 26.1 - 32.7 pgMCV 84.5 81.7 - 95.6 fLMCHC 34.8 31.2 - 35.0 g/dLPLT 251 150 - 328 10*3/?LMPV 10.7 9.8 - 13.0 fLRDW-CV 12.7 12.1 - 15.4 %RDW-SD 38.9 38.5 - 51.6 fLNRBC x10^3 <0.01 10*3/?LNRBC/100 WBC 0.0 0.0 - 10.0 /100 WBCsIPF %Troponin I - Code StrokeCollection Time: 07/06/23 12:50 AMResult Value Ref RangeTROPONIN I 0.012 <=0.034 ng/mLBasic Metabolic Panel (NA, K, CL, CO2, Glucose, BUN, Creatinine, CA) - Code StrokeCollection Time: 07/06/23 12:50 AMResult Value Ref RangeNA 137 135 - 145 mmol/LK 5.2 (H) 3.5 - 5.0 mmol/LCL 98 98 - 108 mmol/LCO2 TOTAL 29 23 - 31 mmol/LAGAP 10 2 - 16BUN 23 7 - 23 mg/dLGLUCOSE 353 (H) 70 - 110 mg/dLCREATININE 0.65 0.60 - 1.25 mg/dLCALCIUM 10.1 8.6 - 10.6 mg/dLeGFR 109.2 mL/min/1.48d8Nzrzz Care Arterial Blood Gas.Collection Time: 07/06/23 1:35 AMResult Value Ref RangePH 7.38 7.35 - 7.45PCO2 43 35 - 45 mmHgPO2 67 (L) 80 - 100 mmHgHCO3 25 22 - 26 mEq/LBE -0.7 -3.0 - 3.0 mEq/LSTROKE LABSHGB A1C (%)Date Value02/14/2023 8.9 (H)No results found for: "LDL"No results found for: "CHOL"No results found for: "TSH"Recent LabsTROPNI 0.012RADIOLOGYNo final results containing an impression from the past 48 hours were found.ASSESSMENT AND PLANRobert Jason Salazar is a 58 year old male with PMHx of the following stroke risk factors: HTN, DM, CAD s/p CABG, L ICA stenosis s/p CEA who presented with AMS, LSN: 1130, NIHSS 0 (limited 2/[address] head -ve for new stroke, CTA head and neck no LVO. On arrival pt had his medication bag in which almost all were empty including patients benzodiazepine. His BG was also in the 350s. Mentation likely 2/2 metabolic vs drug induced.List of Problems:AMSHTNDMCAD s/p CABG- no further recommendationsDiscussed with Dr. Vela, Neurology Faculty. Will be staffed in the AM if patient gets admitted.Olimpia Currie MDPGY2 NeurologyStroke pager: [phone] signed by Sharon Vela MD at 07/08/2023 1:30 PM CSTAssociated attestation - Sharon Vela MD - 07/08/2023 1:30 PM CST I personally examined patient on 07/06/2023 during rounds with the Stroke Team as CODE STROKE and I agree with resident's note, Dr. Currie. I actively participated in the decision-making process. Please see the resident's note for additional details.58-year-old man with multiple stroke risk factors as per the note, stroke team was consulted following stroke activation in the ER for altered mental status. Patient was in his usual state of health till about 11:30 PM when he was noted by his friend to be on the ground and altered state. EMS noticed mild right-sided facial droop which was transient prior to arrival.I personally reviewed multiple cranio-cervical images from 07/06/[address] head, CTA head, and CTA neck; and I agree with the radiologist's reading.Patient is intubated and sedated. Upon initial examination by the resident and stroke scale is 0. Blood glucose level 352, hemoglobin 17.4, hematocrit 50, troponin 0.012 and potassium 5.2, last hemoglobin A1c 8.9 from 02/14/2023.Acute encephalopathy, metabolic toxicHypertensionPoorly controlled diabetesCAD status post CABGCervical atherosclerotic disease status post remote left CEAAgree with current medical management and secondary stroke preventionNo further recommendation at this timeI spent a Total Time of 63 minutes.The time spent for patient care includes:PreCharting (eg, review of tests, notes, etc.), Performing a medically appropriate examination and/or evaluation, Counseling and educating the patient/family/caregiver, Documenting clinical information in the electronic or other health record, and Independently interpreting results (not separately reported) and/or communicating results to the patient/family/caregiver.16829-6Sqnfjc y and physical [id number], Murphyem1.2.840.792670.1.13.104.2.7.2.83 3960FsuwspfxDmjugzGI7783-76-22S11:30:3 4History and physical noteTXT1.2.840.118080.1.13.104.2.7.2.7 35426|[id number] for patient ktqf15795-4Azhwuvc and physical noteLNNARRATIVEFormatted C-CDA narrative fkeyDD-TQIRTBKFZGV-TZEFARJXKEKVJMOYM - Health301 University Vl[id number] BWQSCLQLMPKGHKROSIKH9328-56-94G24:30:3 41.2.840.886252.1.72.3.15|1.2.840.1143 50.1.13.104.2.7.2.727879_[id number] PN-NEUROLOGY [facility] 2023-02-14 04:39:57 1877-44-74B05:39:57F ormatting of this note is different from the original.Medicine History & PhysicalDate of Service: 3Pt presents from: homeCC: leg and neck painHistory of Present Illness:Bright Salazar is a 57 year old male with a PMH of CAD s/p CABG, IDDM, hx CVA who presented to the ED for leg and neck pain.Symptoms ongoing for 1-2 weeks. In April 2022 he underwent L BKA for ascending infection following frostbite. He followed with his surgeon, Dr. Dhiraj Herman in [place], [place] up until 08/2022. He was lost to follow-up and has since moved to [place] to be close to family. 1-2 weeks ago he had increased pain at the stump as well as skin opening along the anterior aspect of the stump. He denies fever, chills, N/V/D.He also complains of neck pain. Exam reveals an indurated circular skin lesion with central eschar, resembles bug bite. ROS: Pt denies fever / chills / nausea / vomiting / diarrhea / constipation / chest pain / SOB / cough / abdominal pain / dysuria / hematuria / melena / hematochezia / rashes / suicidal or homicidal ideation / All others negativeReview of Hx/Meds:No current facility-administered medications on file prior to encounter. Current Outpatient Medications on File Prior to Encounter Medication Sig Dispense Refill clopidogreL 75 mg tablet Take 1 tablet by mouth in the morning. cyclobenzaprine 5 mg tablet Take 1 tablet by mouth 3 (three) times daily as needed for Muscle Spasms. gabapentin 300 mg capsule Take 1 capsule by mouth in the morning and 1 capsule at noon and 1 capsule in the evening. QUEtiapine 50 mg tablet Take 1 tablet by mouth in the morning and 1 tablet in the evening. I have reviewed the patient's home medicationsPMH: No past medical history on file.PSH: has no past surgical history on file. Family Hx: Social History Tobacco Use Smoking status: Every Day Types: Cigarettes Passive exposure: Current Smokeless tobacco: Never Current Scheduled Medications Current IV Current Facility-Administered Medications: clopidogreL (PLAVIX) 75 mg tablet 75 mg, 75 mg, Oral, DAILY, Griffin Wheeler MD cyclobenzaprine (FLEXERIL) tablet 5 mg, 5 mg, Oral, TIDPRN, Griffin Wheeler MD gabapentin (NEURONTIN) capsule 300 mg, 300 mg, Oral, TID, Griffin Wheeler MD morpHINE (2 mg/mL) injection 2 mg, 2 mg, Slow IV Push, Q4HPRN, Griffin Wheeler MD acetaminophen (TYLENOL) tablet 1,000 mg, 1,000 mg, Oral, Q8HPRN, Griffin Wheeler MD docusate (COLACE) capsule 100 mg, 100 mg, Oral, BID, Griffin Wheeler MD enoxaparin (LOVENOX) injection 40 mg, 40 mg, Subcutaneous, DAILY, Griffin Wheeler MD HYDROcodone-acetaminophen (NORCO) 10-325 mg tablet 1 tablet, 1 tablet, Oral, Q6HPRN, Griffin Wheeler MD, 1 tablet at 02/13/23 2320 ondansetron (ZOFRAN (PF)) injection 4 mg, 4 mg, Slow IV Push, Q6HPRN, Griffin Wheeler MD piperacillin-tazobactam (ZOSYN) 3.375 g in NaCl 0.9% (NS) 100 mL MINI-BAG, 3.375 g, IV Piggyback, Q8H ABX, Griffin Wheeler MD, Last Rate: 25 mL/hr at 02/14/23 0332, 3.375 g at 02/14/23 0332 Sliding Scale Insulin - Lispro (HumaLOG), , Subcutaneous, TID MEALS+HS, Griffin Wheeler MD vancomycin 1,250 mg in NaCl 0.9% (NS) 250 mL VIAL-MATE IV piggyback, 15 mg/kg, IV Piggyback, Q12H ABJenna, Griffin Wheeler MDObjective:Vitals:Vitals: 02/13/23 2101 02/13/23 2203 02/13/23 22002/14/23 0338 BP: (!) 146/81 (!) 143/84 (!) 142/76 Pulse: 86 91 78 Resp: 19 18 18 Temp: 36.6 ?C (97.9 ?F) 36.1 ?C (97 ?F) TempSrc: SpO2: 98% 99% 95% Weight: 85.5 kg (188 lb 6.4 oz) Height: 1.829 m (6') I/O's:Intake/Output Summary (Last 24 hours) at 02/14/2023 0440Last data filed at 02/14/2023 0000Gross per 24 hour Intake 812 ml Output -- Net 812 ml Physical Exam:Constitutional: A&O x3, well-developed, well-nourished, and in no distress. Head: Normocephalic and atraumatic. Eyes: PERRL. Conjunctivae and EOM are normal. Neck: Normal range of motion. Neck supple. No JVD present. Skin lesion with erythema and induration.Cardiovascular: Normal rate, regular rhythm, normal heart sounds Pulmonary/Chest: Effort normal and breath sounds normal. No respiratory distress. No wheezes, rales or rhonchi. Abdominal: Soft. Bowel sounds are normal. No TTP, non-distended and no masses. No rebound or guarding. Musculoskeletal: Normal range of motion. No edema or tenderness. S/p L BKA. Lymphadenopathy: No cervical adenopathy. Neurological: A&O x3. No focal deficits. Gait normal. Skin: Skin is warm and dry. No rash noted. No erythema. No pallor. Labs:BMP:BMP NA (mmol/L) Date Value 02/13/2023 137 K (mmol/L) Date Value 02/13/2023 4.3 CALCIUM (mg/dL) Date Value 02/13/2023 9.7 CL (mmol/L) Date Value 02/13/2023 103 BUN (mg/dL) Date Value 02/13/2023 15 CREATININE (mg/dL) Date Value 02/13/2023 0.75 GLUCOSE (mg/dL) Date Value 02/13/2023 226 (H) CO2 TOTAL (mmol/L) Date Value 02/13/2023 22 (L) CBC:CBCWBC (10*3/?L) Date Value 02/13/2023 10.53 RBC (10*6/?L) Date Value 02/13/2023 6.03 (H) PLT (10*3/?L) Date Value 02/13/2023 174 HGB (g/dL) Date Value 02/13/2023 16.8 (H) HCT (%) Date Value 02/13/2023 49.9 (H) BMP:Hepatic Function PanelALBUMIN (g/dL) Date Value 02/13/2023 4.4 T PROTEIN (g/dL) Date Value 02/13/2023 9.1 (H) TOTAL BILI (mg/dL) Date Value 02/13/2023 0.4 ALTv (U/L) Date Value 02/13/2023 29 AST(SGOT) (U/L) Date Value 02/13/2023 27 ALK PHOS (U/L) Date Value 02/13/2023 88 Troponin: There are no current results on file for these tests and/or test for 1 year. I have reviewed all relevant labsImaging:CT KNEE LEFT W CONTRASTResult Date: 02/13/2023T KNEE LEFT W CONTRAST Indication: Soft tissue infection suspected, thigh, xray done possible stump abscess Comparison: None. RL: Ordering Clinician: OLVIN SERRA Technique: Axial postcontrast CT imaging of the left knee with sagittal and coronal reformats. Dose reduction techniques were used (ALARA). Technical Quality: Adequate Discussion: Below the knee indication. No fracture. Eroded appearance of the distal amputation site of the tibia up to 4 mm in diameter which potentially could represent osteomyelitis. Edema at the amputation site with soft tissue ulceration anteriorly extending 4 mm in depth. There is approximately 19 mm a soft tissue coverage above the amputation site of the tibia. Saturation there is a small ill-defined pocket of fluid measuring 20 x 10 x 8 mm which could represent bland bursal fluid or a small developing abscess. Impression: Small amount of fluid in ill-defined pocket at the amputation site could represent a bland bursal fluid accumulation or a small developing abscess. Mild erosion at the tibial amputation site which could represent osteomyelitis. MRI imaging might be considered for further evaluation. Assessment and plan:Principal Problem: Amputation stump dayyjasjt48Q with CAD, hx CVA, IDDM presenting with abscess to L BKA stump. With leukocytosis, elevated lactate on admission. AbscessS/p L BKACT shows abscess at L stump, possible early osteomyeltitis. -repeat lactate ordered earlier, not drawn, will reorder-ESR 82-empiric vanc, zosyn-f/u wound and blood cultures-patient states minimal pain relief with norco. PRN tylenol, morphine, ugdtx-vkjtujnmzy-wdnrn consultNeck cellulitisMonitor for improvement with vanc, zosyn. IDDM-SSI, accuchecks-resume home regimen once reconciled. Patinet states taking humulin-N, regular insulin-f/u A1c, suspect uncontrolled DM2 driving infectionsCADS/p CABG-resume plavix-resume home regimen once reconciled. Patinet states taking statin, ASA, metoprolol. I have asked nurse to revisit med rec, as some meds are missingHx CVAL carotid artery stenosisCVA 10/2022. Appears neurologically intact currently. Will reusme ASA, statin. DVT prophylaxis: [facility] Advanced Care Planning ( Z71.89 )Above assessment and plan discussed at length with patient, patient expressed full understanding. Questions and concerns addressed I spent 18 minutes discussing the advance care planning.Advanced Directive Maker: selfLevel of comfort: N/ACode Status: fullDisposition: admit to inpt Signed:Sherrie Wheeler MD/01/2023 25110-7Erqkzcz and physical suizXW0169-53-39A45:50:08History and physical noteTXT1.2.840.583876.1.13.104.2.7.2.7 26488|[id number] for patient ribn13807-3Pxxittp and physical noteLNUT[address] CrtyAojzfjdprMjtpxeayeKRIB7913272394ME GIJFWGOUCWJSVZSMNHCB0750-96-65B47:50:0 81.2.840.427841.1.72.3.15|1.2.840.1143 50.1.13.104.2.7.2.727879_[id number] [facility] Procedure Notes Date/Time Note Provider Source 2023-02-16 13:15:52 3696-27-94A57:15:52F ormatting of this note might be different from the original.PROCEDURE NOTE Date of Surgery: 02/16/2023Faculty physician: MD Norm Resident physician: Alison Cortez Type: local, 7cc 1% lidocainePre-Procedure diagnosis: neck abscess (2x2 cm)Post-Procedure diagnosis: Same as aboveProcedure(s): Incision and drainage of neck abscessFindings: small amount of purulent drainage evacuatedComplications: NoneEstimated blood loss: minimalSpecimens: None Indications for procedure: This is a 57 year old male who presents with an indurated and fluctuant mass, consistent with a neck abscess s/p I&D 2 days ago. Procedure Descriptions: The patient was sitting in bed with towels positioned appropriately. The patient's neck was subsequently prepped with chlorhexidine . 7cc of 1% Lidocaine was injected into the subcutaneous tissue on and around the abscess site to achieve adequate local anesthesia. The abscess, measuring 2x2 cm, with no active drainage. The incision was extended on both sides to 2 cm with an 11 blade scalpel. Purulent material was evacuated and all locutions were taken down with blunt dissection. The cavity was packed with 1/2 inch iodoform gauze. Dry gauze was applied on top for dressing. Andrade Cortez MD 02/16/2023 1:17 PMGeneral Surgery PGY 2 ssociated attestation - Annalisa Zheng MD - 02/16/2023 2:01 PM CDT Attending Attestation:I personally evaluated and examined the patient on 02/16/[address] Cortez's procedure note as written. I was present during the procedure and actively participated in the decision-making process. Please see the resident's note for additional details.Annalisa Zheng M.D.02/16/2023 14:01 28197-1Abeialqnu [id number], [place]1.2.840.860732.1.13.104.2.7.2.579990 RothtjlwKpxrhkUD8550-67-30X20:01:42Procedu re noteTXT1.2.840.005247.1.13.104.2.7.2.13290 9|[id number] for patient kcnm59087-4Dfwfvoybb noteLN[address] Ea[id number] GFARUPJEUZFXCPIY5362-31-16D93:01:421.2.840 .928150.1.72.3.15|1.2.840.916008.1.13.104. 2.7.2.727879_[id number] [facility] 2023-02-14 15:06:43 1429-00-32M85:06:43F ormatting of this note might be different from the original.PROCEDURE NOTE Date of Surgery: 02/14/2023Faculty physician: MD Natalie Resident physician: Kristian Cortezthesia Type: local, 3cc 1% lidocainePre-Procedure diagnosis: neck abscess (2x2cm)Post-Procedure diagnosis: Same as aboveProcedure(s): Incision and drainage of neck abscessFindings: Purulent drainage evacuatedComplications: NoneEstimated blood loss: minimalSpecimens: PusIndications for procedure: This is a 57 year old male who presents with an indurated and fluctuant mass, consistent with a neck abscess. Procedure Descriptions: The patient was sitting in bed with towels positioned appropriately. The patient's neck was subsequently prepped with chlorhexidine . 3cc of 1% Lidocaine was injected into the subcutaneous tissue on and around the abscess site to achieve adequate local anesthesia. The abscess, measuring 2x2, was then incised 1 cm incision with an 11 blade scalpel. Purulent material was evacuated and all locutions were taken down with blunt dissection. Cultures of the purulent drainage were sent for gram stain and aerobic/anaerobic cultures. The cavity was packed with 1/2 inch iodoform gauze. Dry gauze was applied on top for dressing. Andrade Cortez MD 02/14/2023 3:09 PMGeneral Surgery PGY 2 ssociated attestation - Eloina Estrada MD - 02/14/2023 5:48 PM CDT I was present for and supervised the entire procedure(s[place] [address]-9Mvkprsxop [id number]621.1.13.104.2.7.2.8369 74QulzJuggtmemJZ9227-95-61P54:48:18Procedu re noteTXT1.2.840.045954.1.13.104.2.7.2.12294 9|[id number] for patient zokl63105-5Uxvinfgjv noteLNUT56 Dean [id number] FNEXXNBSJGYWZPEC8888-91-43N29:48:181.2.840 .435329.1.72.3.15|1.2.840.533637.1.13.104. 2.7.2.727879_[id number] [facility] Notes Date/Time Note Provider Source 2023-08-12 06:44:00 [id number]+7PEd2dueAvSIrWzYE9/JZiX627/ SSoG P/0pInPhPrXHIMmrMPl7k84tU4d7kXhn0626-18-58Y0 6:44:489291-[address] [address] PATIENT NAME: BRIGHT SALAZAR ADMIT DATE: 08/03/23ACCOUNT NO: [id number] [facility] 58 REPORT TYPE: 360 - QUERY RESPONSE DOCUMENT SEX: M ADMITTING PHYSICIAN:José Miguel Orozco MD ATTENDING PHYSICIAN:José Miguel Orozco MD Provider Query QUERY TEXT: Condition General 360MD Query related questions should be directed to: [facility] Coding Query Helpine [[Based on your clinical judgment please clarify the diagnosis chest pain etiology] CHEST PAIN DUE TO CADCHEST PAIN DUE TO CHFCHEST PAIN DUE TO HYPERTENSIONCHEST PAIN UNSPECIFIED The patient's Clinical Indicators include:Presentation:Chief Complaint Chest pain-ED PHYSICIAN RECORD 08/02/2023 Free Text A P:Chest PainPossible UNSTABLE ANGINADiff Dx: NSTEMI/other noncardiac-Hospitalist History and Physical 08/02/2023 Assessment/Plan:Chest pain: atypical for angina- no denies recurrent chest pain- serial trops negative x4; no acute ischemia on ekg-Cardiology Progress Note 08/04/2023Options provided:-- Respond - Create new note now-- Dismiss - Not applicable / Not valid-- Dismiss - Clinically unable to determine / Unknown-- Assign to another provider QUERY RESPONSE: chest pain unspecified Query created by: Joe Velasquez on 08/06/2023 1:52 AM at 0644 PATIENT NAME: BRIGHT SALAZAR noteB.[id number] for patient isgcDNFPKMTRFIUCRQ1084-29-12I08:45:[address] [facility] 2023-08-12 06:44:00 [id number]uKSz 2sWd ZpNu9LXjiPs8T7jzpQMINV5g43CbI9pc7124-15-55T7 6:44:854020-1522 [place] [address] PATIENT NAME: BRIGHT SALAZAR ADMIT DATE: 08/03/23ACCOUNT NO: [id number] ROOM NO: [facility] AGE: 58 REPORT TYPE: 360 - QUERY RESPONSE DOCUMENT SEX: M ADMITTING PHYSICIAN:José Miguel Orozco MD ATTENDING PHYSICIAN:José Miguel Orozco MD Provider Query QUERY TEXT: Relationship Diagnoses General 360MD Query related questions should be directed to: [facility] Coding Query Helpine Please clarify the relationship, if any, between [PROSTITIS] and [TESTICULAR PAIN]. The patient's Clinical Indicators include:L Testicular/L groin painPossible epididymoorchitis/prostatitis- US normal flow, no acute abn-Hospitalist History and Physical 08/02/2023 Chief complaint:L Testicular pain-Hospitalist Progress Note 08/03/2023 L Testicular/L groin painPossible epididymoorchitis/prostatitis-Hospitalist Progress Note 08/03/2023 Discharge diagnosis:chest painleft testicular pain-Hospitalist Discharge Summary 08/05/2023Options provided:-- Yes-- No-- Other - I will add my own diagnosis-- Dismiss - Not applicable / Not valid-- Dismiss - Clinically unable to determine / Unknown-- Assign to another provider QUERY RESPONSE: Yes, I am in agreement with the cause/effect relationship between the diagnosis documented above. Query created by: Joe Velasquez on 08/06/2023 1:57 AM at 0644 PATIENT NAME: BRIGHT SALAZAR noteB.[id number] for patient mszsUTHZXZCPJAEXXL1489-31-47R75:45:[address] [facility] 2023-08-12 06:44:00 [id number]/j3At74 fXt1 RUFzv9P7bn0cyfU4wIwQipsfsdVOgLjN5279-09-60F1 6:44:096267-0368 [place] [address] PATIENT NAME: BRIGTH SALAZAR ADMIT DATE: 08/03/23ACCOUNT NO: [id number] ROOM NO: [facility] AGE: 58 REPORT TYPE: 360 - QUERY RESPONSE DOCUMENT SEX: M ADMITTING PHYSICIAN:José Miguel Orozco MD ATTENDING PHYSICIAN:José Miguel Orozco MD Provider Query QUERY TEXT: Condition General 360MD Query related questions should be directed to: [facility] Coding Query Helpine [Based on your medical judgement and above mentioned clinical indicators, kindly clarify the diagnosis of sepsis as,Sepsis was a confirmed diagnosis, Sepsis was not a confirmed diagnosis, other more appropriate diagnosis, clinically unable to determine The patient's Clinical Indicators include:LEUKOCYTOSISPossible SEPSISRule out UTI and epididymoorchitis/prostatitis-Hospitalist History and Physical 08/02/2023 LEUKOCYTOSISPossible SEPSISRule out UTI and epididymoorchitis/prostatitis-Hospitalist Progress Note 08/03/2023 Respiratory rate: 17Respiratory source: ObservedSPO2 %: 94-Vitals [place] Monitor + 08/04/2023 Respiratory rate: 17Respiratory source: ObservedSPO2 %: 93-Vitals [place] Monitor + 08/04/2023 Respiratory rate: 14SPO2 %: 96LOC: Alert-Vitals [place] Monitor + 08/04/2023 cefTRIAXone 1 GM Inj-MAR Options provided:-- Respond - Create new note now-- Dismiss - Not applicable / Not valid-- Dismiss - Clinically unable to determine / Unknown-- Assign to another provider QUERY RESPONSE: not confirmed Query created by: Joe Velasquez on 08/06/2023 2:05 AM at 0644 PATIENT NAME: BRIGHT SALAZAR noteB.[id number] for patient bihvICTEDOYQHJWDQE2543-46-20U56:45:[address] [facility] 2023-08-05 15:35:00 [id number]+Vu6UTdM8/VGc RXnf oJLT8EmKKXpWWb+AAyJoUKgcshFx+o+O5442-35-38G8 5:35:00 [facility]Hospital[facility] Discharge SummaryREPORT#:[id number] REPORT STATUS: SignedREPORT INITIALIZATION DATE:08/05/23 TIME: 1534 PATIENT: BRIGHT SALAZAR UNIT #: [id number]#: [id number] [facility] AGE: 58 SEX: M ATTEND: José Miguel Orozco MDADM AUTHOR: José Miguel Orozco MDREPT SERVICE DT/TIME: 08/04/231534* ALL edits or amendments must be made on the electronic/computer document * General InformationDischarge date: 08/04/23Discharge diagnosis:chest painleft testicular painHospital course:58 year old with multiple medical issues that include DM 2 CAD, multivessel EMWI72-76%Hypertension Hyperlipidemia PVD Diabetic Neuropathy Atherosclerosis to the thoracic aorta, coronary arteries, abdominal aorta and branching vessels Right ICA stenosis 09/26/2022Right MCA CVA 09/26/22 presented with Chest pain x 1 week, intermittent. Pain ispressure like with no radiation. L testicular/groin pain x 3-4 days, no difficulty in urination. No hematuria no fever or chills. Pain starts in the L groin and shoots down to L testicle. Has a wound/ulcer in the L BKA which is tender but no surrounding erythema or drainage. pt seen by urologist and cardiologistcardio recommend outpt workupok for dcurology evaluatedimaging reviewedcontinue with outpt abxf/u outpt urology and pcp Med Rec Med RecDischarge meds:Stop taking the following medications:DOXYCYCLINE HYCLATE (VIBRA-TAB) 100 MG TAB 100 MILLIGRAM ORAL EVERY 12 HOURS. Qty = 24 CEPHALEXIN (KEFLEX) 500 MG CAP 500 MILLIGRAM ORAL EVERY 6 HOURS. Qty = 28 METOPROLOL TARTRATE (LOPRESSOR) 50 MG TAB 50 MILLIGRAM ORAL TWICE DAILY. Continue taking these medications:ASPIRIN (ASPIRIN) 81 MG TAB.CHEW 81 MILLIGRAM ORAL DAILY. Qty = 100 CLOPIDOGREL (PLAVIX) 75 MG TAB 75 MILLIGRAM ORAL DAILY. Qty = 30 METOPROLOL SUCC XL (TOPROL XL) 50 MG TAB.SA 50 MILLIGRAM ORAL DAILY. Days = 30 Qty = 30 ZOLPIDEM (AMBIEN) 10 MG TAB 10 MILLIGRAM ORAL AT BEDTIME NEEDED. as needed for SLEEP GABAPENTIN (NEURONTIN) 300 MG CAP 300 MILLIGRAM ORAL THREE TIMES A DAY. Qty = 90 INSULIN NPH HUMAN RECOM (HumuLIN N) 100 UNIT/ML VIAL 15 UNIT SUBCUTANEOUS TWICE DAILY BEFORE MEALS. Qty = 10 COLLAGENASE (SANTYL OINT) 250 UNIT/GRAM OINTMENT 1 APPLIC TOPICAL DAILY. Qty = 30 DICYCLOMINE (BENTYL) 10 MG CAP 10 MILLIGRAM ORAL EVERY 6 HOURS NEEDED. as needed for ABDOMINAL PAIN/CRAMPING Qty = 30 GABAPENTIN (NEURONTIN) 600 MG TAB 600 MILLIGRAM ORAL THREE TIMES A DAY. Start taking the following new medications:TAMSULOSIN ER (FLOMAX) 0.4 MG CAP.SR.24H 0.4 MILLIGRAM ORAL DAILY. Qty = 30 No Refills ISOSORBIDE MONONITRATE SR (IMDUR) 30 MG TAB.SR.24H 30 MILLIGRAM ORAL TWICE DAILY. Qty = 60 No Refills levoFLOXacin (LEVAQUIN) 500 MG TAB 500 MILLIGRAM ORAL DAILY. Qty = 12 No Refills Instructions: UNTIL FINISHED oxyCODONE/APAP (PERCOCET 10/325 MG) 10 MG-325 MG TAB 1 TABLET ORAL EVERY 6 HOURS NEEDED. as needed for PAIN SCALE 7-10 Qty = 12 No Refills ObjectiveVS/I OLast Documented: Result Date Time Pulse Ox 94 08/04 0806 O2 Delivery Room air 08/04 0806 B/P 117/70 08/04 0805 B/P Mean 85.8 08/04 0805 Temp 97.7 08/04 0805 Pulse 78 08/04 0805 Resp 14 08/04 0805 FiO2 21 08/03 2101 General appearance: alert, awakeHead/Eyes: atraumatic, clear cornea, EOMI, normal conjunctiva/sclera, normal eyelids/periorb., normocephalic, PERRLCardiovascular: normal capillary refill, regular rate rhythmRespiratory: clear to auscultation, no distressAbdomen: non-tender, normal bowel sounds, soft, no distention, no guarding, no hernia, no mass/organomegaly, no reboundExtremities: moves all, normal capillary refill, normal range of motion, no edemaMusculoskeletal: normal inspection Discharge Instructions PCPPCP follow-up:PCP: Tony Adams MD Discharge to: Home/Self CareAdditional Discharge Routines: PCP Follow-Up, Or First Assist Registered Nurse Follow-UpDiet: CardiacDischarge management: greater than 30 mins Follow-up AppointmentsPCP follow-up: PCP: Tony Adams MD PCP follow up timeframe: In 5 daysConsulting provider 1: Provider 1: Palmira Martines MD Specialty: Urology Consult follow up timeframe: In 2-3 weeks Quality: Discharge Current MedicationsCurrent medication review:I attest that the foregoing medication list in the medical record is true, accurate, and complete to the best of my knowledge. at 2046 RPT #:[id number] OF REPORTDSDischarge pcirpqo8816-05-56F15:35:00B.[id number] 9AVAvailable for patient bnarNYKIKUGSVOYMHE8433-99-61N12:48:[address] [facility] 2023-08-04 11:24:00 [id number]/6YcbYL8 xpLB PjxRMiu0y+mqIxYBrbiYoDN4tPLldyAT1870-04-00H5 1:24:00 [facility] CenterUrology Progress NoteREPORT#:[id number] REPORT STATUS: SignedREPORT INITIALIZATION DATE:08/04/23 TIME: 1123 PATIENT: BRIGHT SALAZAR UNIT #: [id number]#: [id number] [facility] AGE: 58 SEX: M ATTEND: José Miguel Orozco MDADM AUTHOR: Palmira Martines MDREPT SERVICE DT/TIME: 08/04/23 112* ALL edits or amendments must be made on the electronic/computer document * SubjectiveHPI:Patient is still feeling pain, reports more pain when moving, coughing. Objective GeneralVS/I O:Last Documented: Result Date Time Pulse Ox 94 08/04 08 O2 Delivery Room air 08/04 08 B/P 117/70 08/04 08 B/P Mean 85.8 08/04 08 Temp 97.7 08/04 08 Pulse 78 08/04 0805 Resp 14 08/04 08 FiO2 21 08/03 2101 24 hour I O ending at 0700: 08/04 0700 08/03 1900 Intake Total 600 Output Total 700 600 Balance -100 -600 Intake, Oral 600 Number 0 Bowel Movements Output, Urine 700 600 PATIENT WEIGHT: Weight (lb): Weight (oz): Weight (kg): 92.500 Physical ExamGeneral appearance: alert, awake, orientedAbdomen: soft, non-tender Diagnosis, Assessment PlanFree Text A P:Patient says Tamsulosin did not help his pain.At this time I do not have any other interventions for this patient.He does need a follow up with a urologist for more workup such as a PSA, repeat exam and also possible a diagnostic cystoscopy. Thank you for this consult, please call me with further questions.Time spent: Time spent on patient care (minutes): 15 >50% spent on counseling/coordination of care: yes at 1132 RPT #:[id number] OF REPORTPRProgress [id number]:24:00B.[id number] Available for patient snjaVYUGMLVWXKPLRB9666-16-03Q16:32:[address] [facility] 2023-08-04 10:29:00 [id number] [facility] RUUzxcoA594n297WdN6LQfRoxXLWSYvT0366-19-00J3 0:29:00 [facility] ([facility])Cardiology Progress NoteREPORT#:[id number] REPORT STATUS: SignedREPORT INITIALIZATION DATE:08/04/23 TIME: 1028 PATIENT: BRIGHT SALAZAR UNIT #: [id number]#: [id number] [facility] [birth year] AGE: 58 SEX: M ATTEND: José Miguel Orozco [facility] AUTHOR: Cecelia Estrada APRNNPREPT SERVICE DT/TIME: 08/04/23 1029* ALL edits or amendments must be made on the electronic/computer document * Cecelia Estrada 08/04/23 1029:Subjective Free Text Subj NotesFree Text Subj Notes:Pt denies any sob, chest pain or palpitations. Objective GeneralVS/I O:24 hour I O ending at 0700: 08/04 0700 08/03 1900 Intake Total 600 Output Total 700 600 Balance -100 -600 Intake, Oral 600 Number 0 Bowel Movements Output, Urine 700 600 Vital Signs: Date Time Temp Pulse Resp B/P B/P Pulse O2 O2 Flow FiO2 Mean Ox Delivery Rate 08/04 0806 94 Room air 08/04 0805 97.7 78 14 117/70 85.8 96 08/04 0439 98.2 76 17 143/69 93.7 93 08/04 0018 97.7 81 17 112/57 75.1 94 08/03 2101 94 Room air 21 08/03 2042 97.7 77 17 137/70 92.1 95 08/03 1600 77 12 122/67 85.2 94 08/03 1140 77 12 113/70 84.2 95 PATIENT WEIGHT: Weight (lb): Weight (oz): Weight (kg): 92.500 Medications:Active Meds + DC'd Last 24 HrsColesevelam HCl (WelChoL) 3,750 MG DAILY PO Tamsulosin HCl (FLOMAX) 0.4 MG DAILY PO Ciprofloxacin HCl (CIPRO) 500 MG BID PO Ezetimibe (ZETIA) 10 MG BEDTIME PO Isosorbide Mononitrate (IMDUR) 30 MG BID PO Ranolazine (RANEXA) 500 MG BID PO Ibuprofen (ADVIL) 600 MG TID MEALS PO Sucralfate (CARAFATE) 1 GM AC PO Aspirin (ECOTRIN) 81 MG DAILY PO Clopidogrel Bisulfate (PLAVIX) 75 MG DAILY PO Metoprolol Tartrate (LOPRESSOR) 50 MG BID PO Pantoprazole (PROTONIX) 40 MG DAILY PO Insulin Human Lispro (HUMALOG) See Admin Criteria AC HS SUBQ Morphine Sulfate (morphine PF SYRINGE) 2 MG Q4H PRN PRN IV Enoxaparin Sodium (LOVENOX) 40 MG Q24H SUBQ Gabapentin (NEURONTIN) 600 MG TID PO Dextrose/Water (DEXTROSE 50%-WATER) 25 ML ASDIR PRN IV (CKD) Dicyclomine HCl (BENTYL) 10 MG Q6H PRN PRN PO Glucagon (GLUCAGON) 1 MG ASDIR PRN IM Glucose Polymer (GLUTOSE) 15 GM ASDIR PRN PO Hydralazine HCl (APRESOLINE) 10 MG Q4H PRN PRN IV Nitroglycerin (NITROSTAT) 0.4 MG Q5M PRN PRN SL Ondansetron HCl (ZOFRAN) 4 MG Q4H PRN PRN IV Lactated Ringer's (LACTATED RINGERS) 1,000 ML .[id number] IV (DC) Acetaminophen (TYLENOL) 650 MG Q6H PRN PRN PO Hydrocodone Bitart/Acetaminophen (NORCO 5/325 TABLET) 1 TAB Q4H PRN PRN PO Hydrocodone Bitart/Acetaminophen (NORCO 7.5/325 TABLET) 1 TAB Q4H PRN PRN PO Physical ExamHead/Eyes: atraumatic, clear cornea, EOMI, normal conjunctiva/sclera, normocephalicENT: moist mucosal membranes, normal nose, normal pharynxNeck: full range of motion, non-tender, normal thyroid, supple/no meningismus, no bruit/NL carotids, no JVDCardiovascular: CV assessment: regular rate and rhythm, normal heart soundsRespiratory: clear to auscultation, no distressAbdomen: soft, non-tender, normal bowel sounds, no distention, no guardingMusculoskeletal: normal inspection (Left BKA)Neuro/RN MATERNITY: alert, oriented X 3, normal reflexes, normal speechSkin: dry, normal color, normal temperature (Left BKA)Wound/incision: Location:Left BKAPsychiatry: normal affect, normal judgment/insight, normal mood ResultsFindings/Data:Laboratory Tests 08/04 08/04 08/03 08/03 0714 0510 2142 1559Chemistry Sodium (133 - 144 mmol/L) 136.0 Potassium (3.5 - 5.1 mmol/L) 4.1 Chloride (95 - 105 mmol/L) 103 Carbon Dioxide (21 - 32 mmol/L) 28 Anion Gap (4.0 - 15.0 GAP calc) 5.0 BUN (7 - 18 MG/DL) 16 Creatinine (0.55 - 1.30 MG/DL) 0.79 Glomerular Filtr Rate (>60 estGFR) 103 Glucose (70 - 110 MG/DL) 222 H POC Glucose (70 - 119 MG/DL) 214 H 264 H 229 H Calcium (8.5 - 10.1 MG/DL) 8.9 Magnesium (1.6 - 2.6 MG/DL) 1.9 Specimen Appearance (1 NORMAL Index/DL) 1 NORMAL <2 MG Specimen Hemolysis (1 NORMAL Index/DL) 1 NORMAL <10 MG 08/03 1053 Chemistry POC Glucose (70 - 119 MG/DL) 265 H Laboratory Tests 08/04 0510 Hematology WBC (4.1 - 12.1 K/mm3) 7.4 RBC (3.8 - 5.5 M/mm3) 4.79 Hgb (10.6 - 15.8 G/DL) 13.7 Hct (31.8 - 47.4 %) 40.9 MCV (80.1 - 101.1 fL) 85.4 MCH (25.3 - 35.3 pg) 28.6 MCHC (32.7 - 35.1 G/DL) 33.5 RDW (12.2 - 16.4 %) 13.0 Plt Count (155 - 337 K/mm3) 197 MPV (7.6 - 10.4 fL) 9.9 Gran % (37.8 - 82.6 %) 55.4 Lymph % (Auto) (14.1 - 45.4 %) 29.9 Williams % (Auto) (2.5 - 11.7 %) 10.6 Eos % (Auto) (0.0 - 6.2 %) 2.7 Baso % (Auto) (0.0 - 2.6 %) 1.1 Gran # (2.0 - 13.7 k/mm3) 4.08 Lymph # (Auto) (0.6 - 3.8 K/mm3) 2.20 Williams # (Auto) (0.11 - 0.59 K/mm3) 0.78 H Eos # (Auto) (0.0 - 0.4 K/mm3) 0.20 Baso # (Auto) (0.0 - 0.1 K/mm3) 0.08 Immature Gran % (0.0 - 2.0 %) 0.3 Nucleated RBC % (0.0 - 1.0 /100WBC%) 0.0 Nucleated RBCs # (0.00 - 0.05 K/mm3) 0.00 Laboratory Tests 08/04 0510 Chemistry Magnesium (1.6 - 2.6 MG/DL) 1.9 Diagnosis, Assessment Plan Free Text DxA P NotesFree Text DxA P Notes:HPI: 58 y.o. male with multiple medical issues that include DM 2 CAD, multivessel LVEF 50-55%Hypertension Hyperlipidemia PVD Diabetic Neuropathy Atherosclerosis to the thoracic aorta, coronary arteries, abdominal aorta and branching vessels Right ICA stenosis 09/26/2022Right MCA CVA 09/26/22 presented with Chest pain x 1 week, intermittent. Pain ispressure like with no radiation. L testicular/groin pain x 3-4 days, no difficulty in urination. No hematuria no fever or chills. Pain starts in the L groin and shoots down to L testicle. Has a wound/ulcer in the L BKA which is tender but no surrounding erythema or drainage. Assessment/Plan: Chest pain: atypical for angina- no denies recurrent chest pain- serial trops negative x4; no acute ischemia on ekg- plan f/u lexiscan NST outpatient- Continue asa, plavix, ranexa, imdur, welchol, zetia; pt unable to tolerate statins.- ddimer 537; CTA chest negative for PE CAD: - h/o stents x10 in the past then CABG x4 in 2016- Continue asa, plavix, ranexa, imdur, welchol, zetia; pt unable to tolerate statins. Chronic diastolic CHF- echo with EF 50-55%- CXR negative; BNP <30- euvolemic on exam; prn lasix- monitor volume status (I O, daily wt)- NYHA class 2- Fluid and Na restrictions d/w pt- GDMT with metoprolol T2DM: A1C 9.7; follow pcp mgmt HTN: contnue metoprolol; monitor bp/hr and adjust dose as needed HLD: LDL 115; pt unable to tolerate statins. continue welchol/zetia. 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 Right ICA stenosis with Right CEA 10/2022- continue asa, plavix, welchol/zetia Right MCA CVA 09/26/22- continue asa, plavix and welchol/zetia for secondary prevention Current every day smoker (1 PPD x 35 yrs)- advised to quit tobacco Non-compliance- advised to comply with medications and follow up office visits Rashad Turner 09/03/23 2220:Diagnosis, Assessment Plan Free Text DxA P NotesFree Text DxA P Notes: Patient was seen and examined as below. Case was discussed with Mr. Estrada as wellas his nurse. Physical ExamGeneral appearance: obese, alert, awake, oriented, no acute distress, pleasantHead/Eyes: atraumatic, clear cornea, EOMI, normal conjunctiva/sclera, normocephalicENT: moist mucosal membranes, normal nose, normal pharynxNeck: full range of motion, non-tender, normal thyroid, supple/no meningismus, no bruit/NL carotids, no JVDCardiovascular: CV assessment: regular rate and rhythm, normal heart soundsRespiratory: clear to auscultation, no distressAbdomen: soft, non-tender, normal bowel sounds, no distention, no guardingMusculoskeletal: normal inspection (Left BKA)Neuro/RN MATERNITY: alert, oriented X 3, normal reflexes, normal speechSkin: dry, normal color, normal temperature (Left BKA)Wound/incision: Location:Left BKAPsychiatry: normal affect, normal judgment/insight, normal mood Plan:Agree with DAPT, BB, oral nitrates.Continue aggressive HPL therapy with current medications of welchol/zetia.Continue ranolazine therapy.Agree to f/u for lexiscan cardiolite as outpatient.Recommended cigarrete cessation. Thank you for the opportunity of participating on his care. at 0854 at 2222 RPT #:[id number] OF REPORTPRProgress ikkq4028-20-40N44:29:00B.[id number] Available for patient qefiSSAFMOETMPCDUL7236-27-37E98:55:[address] [facility] 2023-08-03 14:18:00 [id number]U/o G/yb /jcSlv+mTBMSM4nXOe1SBvIbQcrFi0ya4785-55-44D8 4:18:00 [facility] [place] ([place]IN[place])Hospitalist Progress NoteREPORT#:[id number] REPORT STATUS: SignedREPORT INITIALIZATION DATE:08/03/23 TIME: 1417 PATIENT: BRIGHT SALAZAR UNIT #: [id number]#: [id number] [facility] AGE: 58 SEX: M ATTEND: José Miguel Orozco MDADM AUTHOR: José Miguel Orozco MDREPT SERVICE DT/TIME: 08/03/23 141* ALL edits or amendments must be made on the electronic/computer document * SubjectiveChief complaint:L Testicular painHPI:pt seen and examined at bedside Objective GeneralVS/I O:Vital Signs: Date Time Temp Pulse Resp B/P B/P Pulse O2 O2 Flow FiO2 Mean Ox Delivery Rate 08/03 1140 77 12 113/70 84.2 95 08/03 0741 97.7 84 12 131/76 94.2 96 08/02 2323 98.1 90 142/82 101.9 99 08/02 2219 98.1 90 18 159/70 99 99 Room air 08/02 2100 86 121/63 86 96 08/02 2000 87 152/61 99 96 08/02 1832 98 08/02 1830 90 156/88 117 08/02 1802 98 08/02 1800 85 133/78 100 08/02 1730 88 132/80 101 97 08/02 1728 88 132/82 102 97 08/02 1727 88 134/77 99 98 08/02 1700 90 114/63 83 95 08/02 1631 91 126/62 89 94 08/02 1600 94 116/57 79 97 08/02 1532 97 08/02 1530 94 120/63 83 08/02 1519 96 14 115/67 83 97 24 hour I O ending at 0700: 08/03 0700 08/02 1900 Intake Total 400.00 Output Total 225 Balance 175.00 Intake, IV 225.00 Intake, Oral 175 Output, Urine 225 Patient 92.5 kg Weight Weight Stated/Reported Measurement Method PATIENT WEIGHT: Weight (lb): Weight (oz): Weight (kg): 92.500 Medications:Active Meds + DC'd Last 24 HrsColesevelam HCl (WelChoL) 3,750 MG DAILY PO Tamsulosin HCl (FLOMAX) 0.4 MG DAILY PO Ciprofloxacin HCl (CIPRO) 500 MG BID PO Ezetimibe (ZETIA) 10 MG BEDTIME PO Ranolazine (RANEXA) 500 MG BID PO Ibuprofen (ADVIL) 600 MG TID MEALS PO Sucralfate (CARAFATE) 1 GM AC PO Iopamidol (ISOVUE-370) 75 ML .STK-MED ONE IV (DC) Aspirin (ECOTRIN) 325 MG DAILY PO (DC) Aspirin (ECOTRIN) 81 MG DAILY PO Clopidogrel Bisulfate (PLAVIX) 75 MG DAILY PO Metoprolol Tartrate (LOPRESSOR) 50 MG BID PO Pantoprazole (PROTONIX) 40 MG DAILY PO Insulin Human Lispro (HUMALOG) See Admin Criteria AC HS SUBQ Morphine Sulfate (morphine PF SYRINGE) 2 MG Q4H PRN PRN IV Enoxaparin Sodium (LOVENOX) 40 MG Q24H SUBQ Gabapentin (NEURONTIN) 600 MG TID PO Ceftriaxone Sodium (ROCEPHIN) 1 GM Q24H IV (DC) Sterile Water (STERILE WATER) 10 MLDoxycycline Monohydrate (MONODOX) 100 MG Q12HR PO (DC) Dextrose/Water (DEXTROSE 50%-WATER) 25 ML ASDIR PRN IV (CKD) Dicyclomine HCl (BENTYL) 10 MG Q6H PRN PRN PO Glucagon (GLUCAGON) 1 MG ASDIR PRN IM Glucose Polymer (GLUTOSE) 15 GM ASDIR PRN PO Hydralazine HCl (APRESOLINE) 10 MG Q4H PRN PRN IV Nitroglycerin (NITROSTAT) 0.4 MG Q5M PRN PRN SL Ondansetron HCl (ZOFRAN) 4 MG Q4H PRN PRN IV Lactated Ringer's (LACTATED RINGERS) 1,000 ML .[id number] IV Acetaminophen (TYLENOL) 650 MG Q6H PRN PRN PO Hydrocodone Bitart/Acetaminophen (NORCO 5/325 TABLET) 1 TAB Q4H PRN PRN PO Hydrocodone Bitart/Acetaminophen (NORCO 7.5/325 TABLET) 1 TAB Q4H PRN PRN PO Hydrocodone Bitart/Acetaminophen (NORCO 7.5/325 TABLET) 1 TAB X1ED STA PO (DC) Morphine Sulfate (MORPHINE SULFATE) 4 MG X1ED STA IV (DC) Aspirin 325 MG X1ED STA PO (DC) Physical ExamGeneral appearance: alert, awakeHead/Eyes: atraumatic, clear cornea, EOMI, normal conjunctiva/sclera, normal eyelids/periorb., normocephalic, PERRLCardiovascular: normal capillary refill, regular rate rhythmRespiratory: clear to auscultation, no distressAbdomen: non-tender, normal bowel sounds, soft, no distention, no guarding, no hernia, no mass/organomegaly, no reboundExtremities: moves all, normal capillary refill, normal range of motion, no edemaMusculoskeletal: normal inspection Diagnosis, Assessment Plan Free Text DxA P NotesFree text DxA P notes:Chest PainPossible UNSTABLE ANGINADiff Dx: NSTEMI/other noncardiacHas H/O multivessel CAD CABG x4 and PCILVEF 50-55%- Serial trop- Lipid -DDImer ->Elevated: CTA Chest PENDING- ASAEC- NTG- Cannot tolerate Statin- PPI to cover GI- Pain control- Defer risk stratification and ischemia work up to Cardio- 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 L Testicular/L groin painPossible epididymoorchitis/prostatitis- US normal flow, no acute abn- Empiric ABC - Cipro- UA with borderline pyuria- send for Culture- Urology consult- recommends antinflammatory and Flomax- Motrin TID x 2 days trial with GI proph- FLomax LEUKOCYTOSISPossible SEPSISRule out UTI and epididymoorchitis/prostatitis- UA 5-10 WBC- Urine CS- Empiric ABC: use Cipro HYPONATREMIA- IVF- recheck in AM DM 2- SSNI- Aic ESS Hypertension- Continue home medication: Lopressor- PRN BP Med- Optimize BP control L BKA ulcer- Wound Care Nursepending cardiac workupurology recs reviewdcontinue with pain control and iv abxdc planning once pain is stable Quality: Gen Med Crit Care VTE ProphylaxisVTE prophylaxis initiated: yes Current MedicationsCurrent medication review:I attest that the foregoing medication list in the medical record is true, accurate, and complete to the best of my knowledge. at 1420 RPT #:[id number] OF REPORTPRProgress [id number]:18:00B.[id number] Available for patient tdtgAWAYDMADKSAVIR3479-83-46S24:21:[address] [facility] 2023-08-03 11:36:00 [id number] bFf0 NIU7//mS8QIf9vCtWaE9U5i4ZSsyFD6o7042-88-71Q3 1:36:00 [facility] CenterCardiology ConsultationREPORT#:[id number] REPORT STATUS: SignedREPORT INITIALIZATION DATE:08/03/23 TIME: 1135 PATIENT: BRIGHT SALAZAR UNIT #: [id number]#: [id number] [facility] AGE: 58 SEX: M ATTEND: José Miguel Orozco MDADM AUTHOR: Cecelia Estrada APRNNPREPT SERVICE DT/TIME: 08/03/23 1136* ALL edits or amendments must be made on the electronic/computer document * Cecelia Estrada 08/03/23 1136:History of Present Illness HPIHPI:58 year old with multiple medical issues that include DM 2 CAD, multivessel EDDE84-25%Hypertension Hyperlipidemia PVD Diabetic Neuropathy Atherosclerosis to the thoracic aorta, coronary arteries, abdominal aorta and branching vessels Right ICA stenosis 09/26/2022Right MCA CVA 09/26/22 presented with Chest pain x 1 week, intermittent. Pain ispressure like with no radiation. L testicular/groin pain x 3-4 days, no difficulty in urination. No hematuria no fever or chills. Pain starts in the L groin and shoots down to L testicle. Has a wound/ulcer in the L BKA which is tender but no surrounding erythema or drainage. History - Adult longitudinalPast medical history:Reports: Coronary artery disease, Diabetes mellitus, Hypertension, Dyslipidemia. Additional medical history:DM 2 CAD, multivessel LVEF 50-55% Hypertension Hyperlipidemia Poor medical follow through and complaince. PVD Diabetic Neuropathy Lt BKA infection req'ing multiple rounds of antibiotics and hospitalizations. Falls Atherosclerosis to the thoracic aorta, coronary arteries, abdominal aorta and branching vessels Calcified granulomas RLL Degenerative disc disease L3-L5 and cervical spine Osteophytosis lower thoracic spine Right ICA stenosis 09/26/2022 Right MCA CVA 09/26/22 Indeterminate right parotid lesionsPast surgical history:Reports: CABG (x4), Cholecystectomy. 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 Stated his sister left so he is alone. Concerned he has not utilities on at his house.Allergies:Coded Allergies:Jfxhxvb-UBB-WoD Reductase Inhibitor (Intermediate, JOINT PAIN 08/02/23) JOINT PAIN Review of Systems Free Text ROS NotesFree Text ROS Notes:14 point ROS is unremarkable except for what is mentioned in hpi. Objective GeneralVS/I O:Vital Signs: Date Time Temp Pulse Resp B/P B/P Pulse O2 O2 Flow FiO2 Mean Ox Delivery Rate 08/03 1600 77 12 122/67 85.2 94 08/03 1140 77 12 113/70 84.2 95 08/03 0741 97.7 84 12 131/76 94.2 96 08/02 2323 98.1 90 142/82 101.9 99 08/02 2219 98.1 90 18 159/70 99 99 Room air 08/02 2100 86 121/63 86 96 08/02 2000 87 152/61 99 96 08/02 1832 98 08/02 1830 90 156/88 117 08/02 1802 98 08/02 1800 85 133/78 100 08/02 1730 88 132/80 101 97 08/02 1728 88 132/82 102 97 08/02 1727 88 134/77 99 98 08/02 1700 90 114/63 83 95 08/02 1631 91 126/62 89 94 24 hour I O ending at 0700: 08/03 0700 08/02 1900 Intake Total 400.00 Output Total 225 Balance 175.00 Intake, IV 225.00 Intake, Oral 175 Output, Urine 225 Patient 92.5 kg Weight Weight Stated/Reported Measurement Method PATIENT WEIGHT: Weight (lb): Weight (oz): Weight (kg): 92.500 Medications:Active Meds + DC'd Last 24 HrsColesevelam HCl (WelChoL) 3,750 MG DAILY PO Tamsulosin HCl (FLOMAX) 0.4 MG DAILY PO Ciprofloxacin HCl (CIPRO) 500 MG BID PO Ezetimibe (ZETIA) 10 MG BEDTIME PO Ranolazine (RANEXA) 500 MG BID PO Ibuprofen (ADVIL) 600 MG TID MEALS PO Sucralfate (CARAFATE) 1 GM AC PO Iopamidol (ISOVUE-370) 75 ML .STK-MED ONE IV (DC) Aspirin (ECOTRIN) 325 MG DAILY PO (DC) Aspirin (ECOTRIN) 81 MG DAILY PO Clopidogrel Bisulfate (PLAVIX) 75 MG DAILY PO Metoprolol Tartrate (LOPRESSOR) 50 MG BID PO Pantoprazole (PROTONIX) 40 MG DAILY PO Insulin Human Lispro (HUMALOG) See Admin Criteria AC HS SUBQ Morphine Sulfate (morphine PF SYRINGE) 2 MG Q4H PRN PRN IV Enoxaparin Sodium (LOVENOX) 40 MG Q24H SUBQ Gabapentin (NEURONTIN) 600 MG TID PO Ceftriaxone Sodium (ROCEPHIN) 1 GM Q24H IV (DC) Sterile Water (STERILE WATER) 10 MLDoxycycline Monohydrate (MONODOX) 100 MG Q12HR PO (DC) Dextrose/Water (DEXTROSE 50%-WATER) 25 ML ASDIR PRN IV (CKD) Dicyclomine HCl (BENTYL) 10 MG Q6H PRN PRN PO Glucagon (GLUCAGON) 1 MG ASDIR PRN IM Glucose Polymer (GLUTOSE) 15 GM ASDIR PRN PO Hydralazine HCl (APRESOLINE) 10 MG Q4H PRN PRN IV Nitroglycerin (NITROSTAT) 0.4 MG Q5M PRN PRN SL Ondansetron HCl (ZOFRAN) 4 MG Q4H PRN PRN IV Lactated Ringer's (LACTATED RINGERS) 1,000 ML .W79H32V IV (DC) Acetaminophen (TYLENOL) 650 MG Q6H PRN PRN PO Hydrocodone Bitart/Acetaminophen (NORCO 5/325 TABLET) 1 TAB Q4H PRN PRN PO Hydrocodone Bitart/Acetaminophen (NORCO 7.5/325 TABLET) 1 TAB Q4H PRN PRN PO Hydrocodone Bitart/Acetaminophen (NORCO 7.5/325 TABLET) 1 TAB X1ED STA PO (DC) Physical ExamGeneral appearance: obese, alert, awake, oriented, no acute distress, pleasantHead/Eyes: atraumatic, clear cornea, EOMI, normal conjunctiva/sclera, normocephalicENT: moist mucosal membranes, normal nose, normal pharynxNeck: full range of motion, non-tender, normal thyroid, supple/no meningismus, no bruit/NL carotids, no JVDCardiovascular: CV assessment: regular rate and rhythm, normal heart soundsRespiratory: clear to auscultation, no distressAbdomen: soft, non-tender, normal bowel sounds, no distention, no guardingMusculoskeletal: normal inspection (Left BKA)Neuro/RN MATERNITY: alert, oriented X 3, normal reflexes, normal speechSkin: dry, normal color, normal temperature (Left BKA)Wound/incision: Location:Left BKAPsychiatry: normal affect, normal judgment/insight, normal mood ResultsFindings/Data:Laboratory Tests 08/03 08/03 08/03 08/03 08/03 1559 1053 0709 0530 0530 Chemistry POC Glucose (70 - 119 MG/DL) 229 H 265 H 210 H Lactic Acid (0.4 - 2.0 mmol/L) 1.5 Troponin I High Sens (0 - 45 ng/L) 9 08/03 08/03 08/03 08/03 0303 0303 0303 0303Chemistry Hemoglobin A1c (4.5 - 5.6 % IS-A1C) 9.7 H Estim Average Glucose (MG/DLest) 232 Lactic Acid (0.4 - 2.0 mmol/L) 1.3 Troponin I High Sens (0 - 45 ng/L) 10 Triglycerides (0 - 150 MG/DL) 310 H Cholesterol (133 - 200 MG/DL) 211 H LDL Cholesterol Measurd (0 - 129 MG/DL) 115 Non-HDL Cholesterol (<130 mg/dL) 177 H HDL Cholesterol (40 - 59 MG/DL) 34 L LDL/HDL Ratio (1.48 - 3.22 Avg Ratio) 3.38 H Cholesterol/HDL Ratio (0 RATIO) 6.20 Specimen Appearance (1 NORMAL Index/DL) 1 NORMAL <2 MG Specimen Hemolysis (1 NORMAL Index/DL) 1 NORMAL <10 MG 08/03 08/03 0303 0303 Chemistry Sodium (133 - 144 mmol/L) 132.0 L Potassium (3.5 - 5.1 mmol/L) 3.9 Chloride (95 - 105 mmol/L) 100 Carbon Dioxide (21 - 32 mmol/L) 26 Anion Gap (4.0 - 15.0 GAP calc) 6.0 BUN (7 - 18 MG/DL) 17 Creatinine (0.55 - 1.30 MG/DL) 0.93 Glomerular Filtr Rate (>60 estGFR) 95 Glucose (70 - 110 MG/DL) 229 H Calcium (8.5 - 10.1 MG/DL) 9.2 Total Bilirubin (0.00 - 1.00 MG/DL) 0.65 Direct Bilirubin (0.00 - 0.30 MG/DL) 0.17 Indirect Bilirubin (0.2 - 1.3 MG/DL) 0.48 AST (15 - 37 Unit/L) 26 ALT (12 - 78 Unit/L) 38 Total Alk Phosphatase (45 - 117 Unit/L) 116 C-Reactive Protein (0.000 - 0.900 MG/DL) 10.200 H Total Protein (6.4 - 8.2 G/DL) 8.5 H Albumin (3.4 - 5.0 G/DL) 3.1 L Albumin/Globulin Ratio (1.2 - 2.2 RATIO) 0.6 L TSH (0.340 - 4.820 mc IU/ML) 0.491 Specimen Appearance (1 NORMAL Index/DL) 1 NORMAL <2 MG Specimen Hemolysis (1 NORMAL Index/DL) 1 NORMAL <10 MG 08/03 08/02 0244 1737 Chemistry Troponin I High Sens (0 - 45 ng/L) 9 B-Natriuretic Peptide (0.00 - 100.00 PG/ML) < 30.00 Laboratory Tests 08/03 0303 Coagulation PT (9.4 - 12.5 SECONDS) 12.5 INR (0.9 - 1.1 INR Unit) 1.1 PTT (Nga) (24 - 37.7 SECONDS) 33.2 D-Dimer (0 - 500 FEUng/mL) 537 H Laboratory Tests 08/03 0303 Hematology WBC (4.1 - 12.1 K/mm3) 9.4 RBC (3.8 - 5.5 M/mm3) 5.40 Hgb (10.6 - 15.8 G/DL) 15.5 Hct (31.8 - 47.4 %) 45.2 MCV (80.1 - 101.1 fL) 83.7 MCH (25.3 - 35.3 pg) 28.7 MCHC (32.7 - 35.1 G/DL) 34.3 RDW (12.2 - 16.4 %) 13.1 Plt Count (155 - 337 K/mm3) 209 MPV (7.6 - 10.4 fL) 10.3 Gran % (37.8 - 82.6 %) 60.4 Lymph % (Auto) (14.1 - 45.4 %) 27.3 Williams % (Auto) (2.5 - 11.7 %) 9.9 Eos % (Auto) (0.0 - 6.2 %) 1.7 Baso % (Auto) (0.0 - 2.6 %) 0.5 Gran # (2.0 - 13.7 k/mm3) 5.65 Lymph # (Auto) (0.6 - 3.8 K/mm3) 2.56 Williams # (Auto) (0.11 - 0.59 K/mm3) 0.93 H Eos # (Auto) (0.0 - 0.4 K/mm3) 0.16 Baso # (Auto) (0.0 - 0.1 K/mm3) 0.05 Immature Gran % (0.0 - 2.0 %) 0.2 Nucleated RBC % (0.0 - 1.0 /100WBC%) 0.0 Nucleated RBCs # (0.00 - 0.05 K/mm3) 0.00 ESR (0 - 20 mm/hr) 55 H Laboratory Tests 08/03 0244 Chemistry B-Natriuretic Peptide (0.00 - 100.00 PG/ML) < 30.00 Radiology Data:Recent Impressions:RADIOLOGY - XR TIBIA/FIBULA 2 V LT 08/02 1836 Report Impression - Status: SIGNED Entered: 08/02/2023 1858 IMPRESSION:Status post BKA.Impression By: Corey Barrera, [facility] - CT ABD PELVIS W/O CONT 08/02 1839 Report Impression - Status: SIGNED Entered: 08/02/2023 1914 IMPRESSION:1. No acute abdominal findings.2. Status post cholecystectomy.3. Nephrolithiasis.4. Status post appendectomy.5. Prostatic hypertrophy.Impression By: Corey Barrera, [facility] - CT ANGIO CHEST 08/03 0942 Report Impression - Status: SIGNED Entered: 08/03/2023 1059 IMPRESSION: No pulmonary embolism. No acute cardiopulmonary disease. Impression By: [email or web address] - Sebastian Ashby MD Diagnosis, Assessment Plan Free Text DxA P NotesFree Text DxA P Notes:HPI: 58 y.o. male with multiple medical issues that include DM 2 CAD, multivessel LVEF 50-55%Hypertension Hyperlipidemia PVD Diabetic Neuropathy Atherosclerosis to the thoracic aorta, coronary arteries, abdominal aorta and branching vessels Right ICA stenosis 09/26/2022Right MCA CVA 09/26/22 presented with Chest pain x 1 week, intermittent. Pain ispressure like with no radiation. L testicular/groin pain x 3-4 days, no difficulty in urination. No hematuria no fever or chills. Pain starts in the L groin and shoots down to L testicle. Has a wound/ulcer in the L BKA which is tender but no surrounding erythema or drainage. Assessment/Plan: Chest pain: atypical for angina- serial trops negative x4; no acute ischemia on ekg- plan f/u lexiscan NST outpatient- start ranexa. Continue asa, plavix, imdur; pt unable to tolerate statins. Willstart welchol/zetia.- ddimer 537; CTA chest negative for PE CAD: - h/o stents x10 in the past then CABG x4 in 2016- continue asa, plavix, imdur; pt unable to tolerate statins. Will start welchol/zetia. Chronic diastolic CHF- echo with EF 50-55%- CXR negative; BNP <30- euvolemic on exam; prn lasix- monitor volume status (I O, daily wt)- NYHA class 2- Fluid and Na restrictions d/w pt- GDMT with metoprolol T2DM: A1C 9.7; follow pcp mgmt HTN: contnue metoprolol; monitor bp/hr and adjust dose as needed HLD: LDL 115; pt unable to tolerate statins. Will start welchol/zetia. PAD: - h/o Lt BKA 04/2022 with multiple toe amputations/transmetatarsal amputation - continue asa, plavix; start welchol/zetia History of Atherosclerosis to the thoracic aorta, abdominal aorta and branching vessels- continue asa, plavix; start welchol/zetia Right ICA stenosis with Right CEA 10/2022- continue asa, plavix; start welchol/zetia Right MCA CVA 09/26/22- continue asa, plavix and start welchol/zetia for secondary prevention Current every day smoker (1 PPD x 35 yrs)- advised to quit tobacco Rashad Turner 09/03/23 2214:Diagnosis, Assessment Plan Free Text DxA P NotesFree Text DxA P Notes:Patient was seen and examined as below. Case was discussed with Mr. Estrada as wellas his nurse. Physical ExamGeneral appearance: obese, alert, awake, oriented, no acute distress, pleasantHead/Eyes: atraumatic, clear cornea, EOMI, normal conjunctiva/sclera, normocephalicENT: moist mucosal membranes, normal nose, normal pharynxNeck: full range of motion, non-tender, normal thyroid, supple/no meningismus, no bruit/NL carotids, no JVDCardiovascular: CV assessment: regular rate and rhythm, normal heart soundsRespiratory: clear to auscultation, no distressAbdomen: soft, non-tender, normal bowel sounds, no distention, no guardingMusculoskeletal: normal inspection (Left BKA)Neuro/RN MATERNITY: alert, oriented X 3, normal reflexes, normal speechSkin: dry, normal color, normal temperature (Left BKA)Wound/incision: Location:Left BKAPsychiatry: normal affect, normal judgment/insight, normal mood Plan:Agree with DAPT, BB, oral nitrates.Continue aggressive HPL therapy with current medications of welchol/zetia.Agree with ranolazine therapy.Agree to f/u for lexiscan cariolite as outpatient Also recommended cigarrete cessation. Thank you for the opportunity of participating on his care. at 1635 at 2220 RPT #:[id number] OF REPORTHMMseewisvlost2503-27-22R64:36:00B. [id number] for patient [id number]:35:[address] [facility] 2023-08-03 09:01:00 [id number] sMSN [id number] 9:01:00 [facility])Urology Consult NoteREPORT#:[id number] REPORT STATUS: SignedREPORT INITIALIZATION DATE:08/03/23 TIME: 900 PATIENT: BRIGHT SALAZAR UNIT #: [id number]#: [id number] [facility] AGE: 58 SEX: M ATTEND: José Miguel Orozco MDADM AUTHOR: Palmira Martines MDREPT SERVICE DT/TIME: 08/03/23 0901* ALL edits or amendments must be made on the electronic/computer document * History of Present Illness HPIReason for consult:Left testicular painChief complaint:Left testicular and groin painPCP:PCP: Tony Adams MD HPI:58 yo male patient with multiple medical problems now reports intractable left testicular and groin pain for a few days.Patient denies trauma, hematuria, problems voiding and passing "sand".Patient has no history of testicular surgery, testicular masses, voiding problems, prostate surgeries or prostate checks.He does not report history of prostate cancer in the family.He does not remember if he had a PSA before. He sometimes goes three times without having a BM, strains to have a BM, does not remember having pain with a BM, has never had a colonoscopy.Patient according to the chart still smokes. HistoryPast medical history:Reports: Coronary artery disease, Diabetes mellitus, Hypertension, Dyslipidemia. Additional medical history:DM 2 CAD, multivessel LVEF 50-55% Hypertension Hyperlipidemia Poor medical follow through and complaince. PVD Diabetic Neuropathy Lt BKA infection req'ing multiple rounds of antibiotics and hospitalizations. Falls Atherosclerosis to the thoracic aorta, coronary arteries, abdominal aorta and branching vessels Calcified granulomas RLL Degenerative disc disease L3-L5 and cervical spine Osteophytosis lower thoracic spine Right ICA stenosis 09/26/2022 Right MCA CVA 09/26/22 Indeterminate right parotid lesionsPast surgical history:Reports: CABG (x4), Cholecystectomy. Additional surgical history:R CEA 10/08/22 CABG x 4and PCI 2009 Multiple toe amputations transmetatarsal amputation 2020 Left BKA 2 stage 04/2022 Cholestectomy AppendectomyAlcohol use: Last drink was rug use: Denies recreational drugsSmoking status for patients 13 years old or older: Current every day smokerDate last smoked: 08/02/23Packs per day: 1Years smoked: 35Pack years: 35Additional social history:Lives alone. Stated his sister left so he is alone. Concerned he has not utilities on at his house.Allergies:Coded Allergies:Rquafra-ONJ-AiN Reductase Inhibitor (Intermediate, JOINT PAIN 08/02/23) JOINT PAIN ObjectiveVS/I O:Last Documented: Result Date Time Pulse Ox 96 08/03 740 B/P 131/76 08/03 740 B/P Mean 94.2 08/03 740 Temp 97.7 08/03 740 Pulse 84 08/03 07 Resp 12 08/03 740 O2 Delivery Room air 08/02 2218 24 hour I O ending at 0700: 08/03 0700 08/02 1900 Intake Total 400.00 Output Total 225 Balance 175.00 Intake, IV 225.00 Intake, Oral 175 Output, Urine 225 Patient 92.5 kg Weight Weight Stated/Reported Measurement Method PATIENT WEIGHT: Weight (lb): Weight (oz): Weight (kg): 92.500 General appearance: obese, alert, awake, oriented, pleasantAbdomen: soft, non-tender, no herniaGenitourinary: Genitourinary: normal sphincter tone, prostate exam NL, No masses, fluctuance, or drainage felt on prostate exam. Prostate massage performed without patient reporting painExtremities: L BKA, stump with small wound but no purulent drainage, no rednessNeuro/RN MATERNITY: alert, oriented X 3 ResultsFindings/Data:Laboratory Tests: 08/03 08/03 08/03 08/03 08/03 0709 0530 0530 0303 0303 Chemistry POC Glucose (70 - 119 MG/DL) 210 H Lactic Acid (0.4 - 2.0 mmol/L) 1.5 1.3 Troponin I High Sens (0 - 45 ng/L) 9 10 08/03 08/03 08/03 0303 0303 0303 Chemistry Hemoglobin A1c (4.5 - 5.6 % IS-A1C) 9.7 H Estim Average Glucose (MG/DLest) 232 C-Reactive Protein (0.000 - 0.900 MG/DL) 10.200 H Triglycerides (0 - 150 MG/DL) 310 H Cholesterol (133 - 200 MG/DL) 211 H LDL Cholesterol Measurd (0 - 129 MG/DL) 115 Non-HDL Cholesterol (<130 mg/dL) 177 H HDL Cholesterol (40 - 59 MG/DL) 34 L LDL/HDL Ratio (1.48 - 3.22 Avg Ratio) 3.38 H Cholesterol/HDL Ratio (0 RATIO) 6.20 Specimen Appearance (1 NORMAL Index/DL) 1 NORMAL <2 MG Specimen Hemolysis (1 NORMAL Index/DL) 1 NORMAL <10 MG 08/03 08/02 08/02 0303 1737 1524 Chemistry Sodium (133 - 144 mmol/L) 132.0 L Potassium (3.5 - 5.1 mmol/L) 3.9 Chloride (95 - 105 mmol/L) 100 Carbon Dioxide (21 - 32 mmol/L) 26 Anion Gap (4.0 - 15.0 GAP calc) 6.0 BUN (7 - 18 MG/DL) 17 Creatinine (0.55 - 1.30 MG/DL) 0.93 Glomerular Filtr Rate (>60 estGFR) 95 Glucose (70 - 110 MG/DL) 229 H Calcium (8.5 - 10.1 MG/DL) 9.2 Total Bilirubin (0.00 - 1.00 MG/DL) 0.65 Direct Bilirubin (0.00 - 0.30 MG/DL) 0.17 Indirect Bilirubin (0.2 - 1.3 MG/DL) 0.48 AST (15 - 37 Unit/L) 26 ALT (12 - 78 Unit/L) 38 Total Alk Phosphatase (45 - 117 Unit/L) 116 Troponin I High Sens (0 - 45 ng/L) 9 9 Total Protein (6.4 - 8.2 G/DL) 8.5 H Albumin (3.4 - 5.0 G/DL) 3.1 L Albumin/Globulin Ratio (1.2 - 2.2 RATIO) 0.6 L TSH (0.340 - 4.820 mc IU/ML) 0.491 Specimen Appearance (1 NORMAL Index/DL) 1 NORMAL <2 MG Specimen Hemolysis (1 NORMAL Index/DL) 1 NORMAL <10 MG Coagulation PT (9.4 - 12.5 SECONDS) 12.5 INR (0.9 - 1.1 INR Unit) 1.1 PTT (Nga) (24 - 37.7 SECONDS) 33.2 D-Dimer (0 - 500 FEUng/mL) 537 H Hematology WBC (4.1 - 12.1 K/mm3) 9.4 RBC (3.8 - 5.5 M/mm3) 5.40 Hgb (10.6 - 15.8 G/DL) 15.5 Hct (31.8 - 47.4 %) 45.2 MCV (80.1 - 101.1 fL) 83.7 MCH (25.3 - 35.3 pg) 28.7 MCHC (32.7 - 35.1 G/DL) 34.3 RDW (12.2 - 16.4 %) 13.1 Plt Count (155 - 337 K/mm3) 209 MPV (7.6 - 10.4 fL) 10.3 Gran % (37.8 - 82.6 %) 60.4 Lymph % (Auto) (14.1 - 45.4 %) 27.3 Williams % (Auto) (2.5 - 11.7 %) 9.9 Eos % (Auto) (0.0 - 6.2 %) 1.7 Baso % (Auto) (0.0 - 2.6 %) 0.5 Gran # (2.0 - 13.7 k/mm3) 5.65 Lymph # (Auto) (0.6 - 3.8 K/mm3) 2.56 Williams # (Auto) (0.11 - 0.59 K/mm3) 0.93 H Eos # (Auto) (0.0 - 0.4 K/mm3) 0.16 Baso # (Auto) (0.0 - 0.1 K/mm3) 0.05 Immature Gran % (0.0 - 2.0 %) 0.2 Nucleated RBC % (0.0 - 1.0 /100WBC%) 0.0 Nucleated RBCs # (0.00 - 0.05 K/mm3) 0.00 ESR (0 - 20 mm/hr) 55 H 08/02 1524 Chemistry Sodium (133 - 144 mmol/L) 130.0 L Potassium (3.5 - 5.1 mmol/L) 4.3 Chloride (95 - 105 mmol/L) 104 Carbon Dioxide (21 - 32 mmol/L) 21 Anion Gap (4.0 - 15.0 GAP calc) 5.0 BUN (7 - 18 MG/DL) 16 Creatinine (0.55 - 1.30 MG/DL) 1.01 Glomerular Filtr Rate (>60 estGFR) 86 Glucose (70 - 110 MG/DL) 230 H Calcium (8.5 - 10.1 MG/DL) 9.1 Specimen Appearance (1 NORMAL Index/DL) 1 NORMAL <2 MG Specimen Hemolysis (1 NORMAL Index/DL) 1 NORMAL <10 MG Hematology WBC (4.1 - 12.1 K/mm3) 12.5 H RBC (3.8 - 5.5 M/mm3) 5.30 Hgb (10.6 - 15.8 G/DL) 15.5 Hct (31.8 - 47.4 %) 44.3 MCV (80.1 - 101.1 fL) 83.6 MCH (25.3 - 35.3 pg) 29.2 MCHC (32.7 - 35.1 G/DL) 35.0 RDW (12.2 - 16.4 %) 13.1 Plt Count (155 - 337 K/mm3) 176 MPV (7.6 - 10.4 fL) 10.0 Urines Urine Color (YELLOW DESCRIPT) DARK-YELLOW Urine Appearance (CLEAR DESCRIPT) TURBID (1+)HAZY-CLDY H Urine pH (4.6 - 8.0 pH UNITS) 5.5 Ur Specific [place] (1.001 - 1.035 SG) 1.040 H Urine Protein ((NEG) <30 mg/dL) 600 (3+) H Urine Glucose (UA) (0 (NORMAL) mg/dL) 200 (2+) H Urine Ketones ((NEG) 0 mg/dL) TRACE Urine Blood (0 (NEG) mg/dL) NEGATIVE (0.00) Urine Nitrite (NEG SCREEN) NEGATIVE (0) Urine Bilirubin ((NEG) 0 mg/dL) 1.0 (1+) H Urine Urobilinogen ((NORM)<2.0 mg/Dl) 4 (2+) H Ur Leukocyte Esterase ((NEG) 0 Leuk/mcL) NEGATIVE (0) Urine RBC (0 - 3 #RBC/HPF) 0-3 Urine WBC (0 - 3 #WBC/HPF) 5-10 H Urine Bacteria (NONE - FEW /HPF) FEW >1 Cellular Casts (NONE #/LPF) 10-20 H Hyaline Casts (0 - 3 #/LPF) >20 H Urine Mucus (NONE /LPF) MANY H Recent Impressions:RADIOLOGY - XR CHEST 1 V 08/02 1439 Report Impression - Status: SIGNED Entered: 08/02/2023 1502 IMPRESSION: Unremarkable frontal chest radiograph.Impression By: [email or web address] - HARINDER Schroeder - DUP AB/PEL/SC COMP 08/02 1448 Report Impression - Status: SIGNED Entered: 08/02/2023 1605 IMPRESSION: No acute or significant imaging abnormality. Normal blood flow is seen to the testes. Please refer to the findings section for additional details.Impression By: [email or web address] HARINDER Baker - US SCROTUM AND CNTS 08/02 1448 Report Impression - Status: SIGNED Entered: 08/02/2023 1605 IMPRESSION: No acute or significant imaging abnormality. Normal blood flow is seen to the testes. Please refer to the findings section for additional details.Impression By: KEYLA SinghADIOLOGY - XR TIBIA/FIBULA 2 V LT 08/02 1836 Report Impression - Status: SIGNED Entered: 08/02/2023 1858 IMPRESSION:Status post BKA.Impression By: Corey Barrera [facility] - CT ABD PELVIS W/O CONT 08/02 1839 Report Impression - Status: SIGNED Entered: 08/02/2023 1914 IMPRESSION:1. No acute abdominal findings.2. Status post cholecystectomy.3. Nephrolithiasis.4. Status post appendectomy.5. Prostatic hypertrophy.Impression By: Corey Barrera MD Diagnosis, Assessment Plan Diagnosis, Assessment PlanFree Text A P:58 yo patient with multiple medical problems now with left testicular and left groin pain.TONE performed, no nodules, no signs of prostatic abscess, prostate massage with no relief to the patient.Will start patient on Tamsulosin to see if relaxing the muscles around prostate and no straining helps with pain.Consider starting patient on scheduled antiiflammatory.If no relief may consider treatment with antibiotic such as bactrim or ciprofloxacin.As a outpatient, patient needs a PSA a few weeks after the pain resolves.As an outpatient patient will need also a colonoscopy.Thank you for the consult, I do not plan any urologic interventions for this patient but will follow.Time spent: Time spent on patient care (minutes): 55 >50% spent on counseling/coordination of care: yes at 0933 [facility] #:[id number] OF REPORTRAMgxabzqknlir5460-96-47O01:01:00B. [id number] for patient sbjkXHRJVBGPEBURXA8010-55-21X92:33:[address] [facility] 2023-08-02 23:31:00 [id number] 3vMK [id number]+IHozD5vU/3Ae0908-37-46Y1 3:31:00 [facility] ([facility])Hospitalist History PhysicalREPORT#:[id number] REPORT STATUS: SignedREPORT INITIALIZATION DATE:08/02/23 TIME: 2330 PATIENT: BRIGHT SALAZAR UNIT #: [id number]#: [id number] [facility] AGE: 58 SEX: M ATTEND: José Miguel Orozco MDADM AUTHOR: Ezra Austin MDREPT SERVICE DT/TIME: 08/02/23 2331* ALL edits or amendments must be made on the electronic/computer document * History of Present Illness HPIChief complaint:L Testicular pain PCP:PCP: Tony Adams MD HPI:58 year old with multiple medical issues that include DM 2 CAD, multivessel GNWV82-55%Hypertension Hyperlipidemia PVD Diabetic Neuropathy Atherosclerosis to the thoracic aorta, coronary arteries, abdominal aorta and branching vessels Right ICA stenosis 09/26/2022Right MCA CVA 09/26/22 presented with Chest pain x 1 week, intermittent. Pain ispressure like with no radiation. L testicular/groin pain x 3-4 days, no difficulty in urination. No hematuria no fever or chills. Pain starts in the L groin and shoots down to L testicle. Has a wound/ulcer in the L BKA which is tender but no surrounding erythema or drainage. History Past Medical Surgical HxAdditional medical history:DM Type 2CAD, multivesselLVEF 50-55%HypertensionHyperlipidemiaPoor medical follow through and complaince.PVDDiabetic NeuropathyLt BKA infection req'ing multiple rounds of antibioticsand hospitalizationsBPHFallsAtherosclerosis to the thoracic aorta, coronary arteries, abdominal aorta and branching vesselsCalcified granulomas RLLDegenerative disc disease L3-L5 and cervical spineOsteophytosis lower thoracic spineRight ICA stenosis 09/26/2022Right MCA CVA 09/26/22Indeterminate right parotid lesions Additional surgical history:R CEA 10/08/22CABG x 4and PCI 2009Multiple toe amputationstransmetatarsal amputation eft BKA 2 stage holestectomyAppendectomy Family HistoryAdditional family history:Family history of diabetes, no bleeding or clotting dyscrasias Social HistoryAlcohol use: Last drink was rug use: Denies recreational drugsSmoking status for patients 13 years old or older: Current every day smoker (1 PPD x 35 yrs)Additional social history:Lives alone. Stated his sister left so he is alone. Concerned he has not utilities on at his house. Medication/Allergy-Vaccine HxAllergies:Coded Allergies:Wqjdlqt-KZA-KkI Reductase Inhibitor (Intermediate, JOINT PAIN 08/02/23) JOINT PAIN Review of SystemsAll systems rev neg: except as noted OBJECTIVEVS/I O: Vital Signs: Date Time Temp Pulse Resp B/P B/P Pulse O2 O2 Flow FiO2 Mean Ox Delivery Rate 08/02 2323 98.1 90 142/82 101.9 99 08/02 2219 98.1 90 18 159/70 99 99 Room air 08/02 2100 86 121/63 86 96 08/02 2000 87 152/61 99 96 08/02 1832 98 08/02 1830 90 156/88 117 08/02 1802 98 08/02 1800 85 133/78 100 08/02 1730 88 132/80 101 97 08/02 1728 88 132/82 102 97 08/02 1727 88 134/77 99 98 08/02 1700 90 114/63 83 95 08/02 1631 91 126/62 89 94 08/02 1600 94 116/57 79 97 08/02 1532 97 08/02 1530 94 120/63 83 08/02 1519 96 14 115/67 83 97 08/02 1411 97.9 104 18 110/68 82 100 Room air Weight (kg): 92.500 BMI: 27.7 General/Const Awake, Alert, conversational, not in resp distressDistressHead Normocephalic, AtraumaticEyes PERRL, EOMIEars/Nose/Throat Airway patentNeck Supple, ROM IRespiratory/Chest Breath sounds NL, Breath sounds = bilat, No respiratory distress, No ralesCardiovascular Heart rate NL, Regular rhythm, Heart sounds NLAbdomen/GI Soft, Non-tender, No guarding, No rebound. L groin tender to touchBack Inspection NLExtremities: L BKA Skin Warm, DryNeurologic Oriented X3, Speech NL, nonfocal motor and to touch. CN seems intact DIAGNOSTICS (Reviewed):Laboratory EKG Imaging studies reviewed and considered in the medical decision-making.Laboratory Tests: 08/02 08/02 08/02 1737 1524 1524Chemistry Sodium (133 - 144 mmol/L) 130.0 L Potassium (3.5 - 5.1 mmol/L) 4.3 Chloride (95 - 105 mmol/L) 104 Carbon Dioxide (21 - 32 mmol/L) 21 Anion Gap (4.0 - 15.0 GAP calc) 5.0 BUN (7 - 18 MG/DL) 16 Creatinine (0.55 - 1.30 MG/DL) 1.01 Glomerular Filtr Rate (>60 estGFR) 86 Glucose (70 - 110 MG/DL) 230 H Calcium (8.5 - 10.1 MG/DL) 9.1 Troponin I High Sens (0 - 45 ng/L) 9 9 Specimen Appearance (1 NORMAL Index/DL) 1 NORMAL <2 MG Specimen Hemolysis (1 NORMAL Index/DL) 1 NORMAL <10 [facility] WBC (4.1 - 12.1 K/mm3) 12.5 H RBC (3.8 - 5.5 M/mm3) 5.30 Hgb (10.6 - 15.8 G/DL) 15.5 Hct (31.8 - 47.4 %) 44.3 MCV (80.1 - 101.1 fL) 83.6 MCH (25.3 - 35.3 pg) 29.2 MCHC (32.7 - 35.1 G/DL) 35.0 RDW (12.2 - 16.4 %) 13.1 Plt Count (155 - 337 K/mm3) 176 MPV (7.6 - 10.4 fL) 10.0Urines Urine Color (YELLOW DESCRIPT) DARK-YELLOW Urine Appearance (CLEAR DESCRIPT) TURBID (1+)HAZY-CLDY H Urine pH (4.6 - 8.0 pH UNITS) 5.5 Ur Specific [place] (1.001 - 1.035 SG) 1.040 H Urine Protein ((NEG) <30 mg/dL) 600 (3+) H Urine Glucose (UA) (0 (NORMAL) mg/dL) 200 (2+) H Urine Ketones ((NEG) 0 mg/dL) TRACE Urine Blood (0 (NEG) mg/dL) NEGATIVE (0.00) Urine Nitrite (NEG SCREEN) NEGATIVE (0) Urine Bilirubin ((NEG) 0 mg/dL) 1.0 (1+) H Urine Urobilinogen ((NORM)<2.0 mg/Dl) 4 (2+) H Ur Leukocyte Esterase ((NEG) 0 Leuk/mcL) NEGATIVE (0) Urine RBC (0 - 3 #RBC/HPF) 0-3 Urine WBC (0 - 3 #WBC/HPF) 5-10 H Urine Bacteria (NONE - FEW /HPF) FEW >1 Cellular Casts (NONE #/LPF) 10-20 H Hyaline Casts (0 - 3 #/LPF) >20 H Urine Mucus (NONE /LPF) MANY H Recent Impressions:RADIOLOGY - XR CHEST 1 V 08/02 1439 Report Impression - Status: SIGNED Entered: 08/02/2023 1502IMPRESSION:Unremarkable frontal chest radiograph.Impression By: [email or web address] - Regino Ramirez MD ULTRASOUND - DUP AB/PEL/SC COMP 08/02 1448 Report Impression - Status: SIGNED Entered: 08/02/2023 1605IMPRESSION: No acute or significant imaging abnormality.Normal blood flow is seen to the testes.Please refer to the findings section for additional details.Impression By: [email or web address] Karne Ashby MD ULTRASOUND - US SCROTUM AND CNTS 08/02 1448 Report Impression - Status: SIGNED Entered: 08/02/2023 1605IMPRESSION: No acute or significant imaging abnormality.Normal blood flow is seen to the testes.Please refer to the findings section for additional details.Impression By: Yang Ashby MD RADIOLOGY - XR TIBIA/FIBULA 2 V LT 08/02 1836 Report Impression - Status: SIGNED Entered: 08/02/2023 1858IMPRESSION:Status post BKA.Impression By: Corey Barrera MD CAT SCAN - CT ABD PELVIS W/O CONT 08/02 1839 Report Impression - Status: SIGNED Entered: 08/02/2023 1914IMPRESSION:1. No acute abdominal findings.2. Status post cholecystectomy.3. Nephrolithiasis.4. Status post appendectomy.5. 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 L Testicular/L groin painPossible epididymoorchitis/prostatitis- US normal flow, no acute abn- Empiric ABC - Cipro- UA with borderline pyuria- send for Culture- Urology consult- recommends antinflammatory and Flomax- Motrin TID x 2 days trial with GI proph- FLomax LEUKOCYTOSISPossible SEPSISRule out UTI and epididymoorchitis/prostatitis- UA 5-10 WBC- Urine CS- Empiric ABC: use Cipro HYPONATREMIA- IVF- recheck in AM DM 2- SSNI- Aic ESS Hypertension- Continue home medication: Lopressor- PRN BP Med- Optimize BP control L BKA ulcer- Wound Care Nurse- Wound care CO MORBIDITIES: TO be monitored,, continue meds, and address accordinglyHyperlipidemia - Lipid, cannot tolerate statinPoor medical follow through and compliance- notedPVD- ASA, Risk factor modificationDiabetic Neuropathy - pain controlAtherosclerosis to the thoracic aorta, coronary arteries, abdominal aorta and branching vessels- ASA, RIsk factor modificationDegenerative disc disease L3-L5 and cervical spine - pain controlRight ICA stenosis 09/26/2022- F/U carotidRight MCA CVA 09/26/22- ASA, risk factor modificationIndeterminate right parotid lesions QUALITY:DVT PROPHYLAXIS ordered: Pharmacological prophylaxis- defer to Attending pending consult HOME MEDS partially RECONCILED based on limited Info from Pt/family, med records, Medication Claim history. Attending will do final review of Med Rec. Essential GENERAL ADMIT MEDS Orders entered Advance Care Planning and Code Status Discussed in detail i.e.CPR, Chest compression, Cardiac meds, Intubatio/mech vent in the event of Cardiopulmonary arrest, and need to designated a mPOA : Full CodeSUICIDE ASSESSMENT : No risk I have discussed the findings, working diagnosis/ses and plan of treatment withpatient and all concerns and questions have been addressed at this time to the best of my abilities based on the initial and limited data at this time. I discussed the pros and cons of all options and engaged in shared-decision making. Agreeable with Admission. MDM Ftkafiijeq-Igyl-Jaxz: MEDICAL DECISION MAKINGPatient to be admitted. Complex medical decision making, involving multiple comorbidities, differentials, and diagnostics reviewed. Patient presents with a problem that potentially represents a highly morbid condition with a possible threat to life or bodily function. All test results ( Labs, Imaging studies, EKG ) have been personally reviewed by me, addressed upon, and considered in the medical decision-making. All abnormals or significant findings are listed or mentioned in the Assessment. I ordered more tests (see orders). Consulted Urology. I also reviewed recordsfrom prior admission . Social determinants of health that affect the patient's care were factored into the disposition. Discussed with ED Doc. I have performed a Medically Appropiate History and Physical. As I am a Television Engineer and Admitting MD only, I am SIGNING OFF to one of theHospital Doc's Dayshift Attending - TO BE ASSIGNED MD - will continue patient's care and management effective 0600 am of 08/03/23. I have initiated patient's plan of care based on preliminary diagnosis/ses and initial available test results and date. I am deferring further evaluation, treatment, and consultations to the assigned Attending. My Order - Last 24 Hours Procedure Date/time Status Wound Care - Stage II 08/03 921 Active Stage II Skin Care 08/03 09 Active Dressing- Dry Wound 08/03 09 Active WOUND CARE NURSING CONSULT 08/03 0922 Active NUTRITIONAL CONSULT 08/03 0922 Active MD to sign off case 08/03 0920 Active CTA CHEST 08/03 0920 Active GLUBED 08/03 0709 Complete Provider Consult 08/03 0457 Active THYROID STIMULATING HORMONE 08/03 0400 Complete TROPONIN I 08/03 0400 Complete SED RATE 08/03 0400 Complete PT AND PTT 08/03 0400 Complete LIPID PROFILE (CORONARY RISK) 08/03 0400 Complete LACTIC ACID 08/03 0400 Complete C REACTIVE PROTEIN 08/03 0400 Complete COMPREHENSIVE METABOLIC PANEL 08/03 0400 Complete CBC W/AUTO DIFF 08/03 0400 Complete MRSA PCR Surveillance Screen 08/03 0256 Active CULTURE BLOOD 08/03 0223 Active Notify MD - Labs 08/03 0208 Active Notify MD-Adjustment 08/03 0208 Active Blood Glucose Monitoring 08/03 020 Active CULTURE URINE 08/03 020 Active CULTURE BLOOD 08/03 0208 Active D-DIMER 08/03 207 Complete Provider Consult 08/03 207 Active TROPONIN I 08/03 199 Complete LACTIC ACID 08/03 020 Complete HGBA1C 08/03 015 Complete Carotid Doppler Bilateral 08/03 UNK Active Active Meds + DC'd Last 24 HrsAspirin (ECOTRIN) 325 MG DAILY PO (DC) Aspirin (ECOTRIN) 81 MG DAILY PO Clopidogrel Bisulfate (PLAVIX) 75 MG DAILY PO Metoprolol Tartrate (LOPRESSOR) 50 MG BID PO Pantoprazole (PROTONIX) 40 MG DAILY PO Insulin Human Lispro (HUMALOG) See Admin Criteria AC HS SUBQ Morphine Sulfate (morphine PF SYRINGE) 2 MG Q4H PRN PRN IV Enoxaparin Sodium (LOVENOX) 40 MG Q24H SUBQ Gabapentin (NEURONTIN) 600 MG TID PO Ceftriaxone Sodium (ROCEPHIN) 1 GM Q24H IV Sterile Water (STERILE WATER) 10 MLDoxycycline Monohydrate (MONODOX) 100 MG Q12HR PO Dextrose/Water (DEXTROSE 50%-WATER) 25 ML ASDIR PRN IV (CKD) Dicyclomine HCl (BENTYL) 10 MG Q6H PRN PRN PO Glucagon (GLUCAGON) 1 MG ASDIR PRN IM Glucose Polymer (GLUTOSE) 15 GM ASDIR PRN PO Hydralazine HCl (APRESOLINE) 10 MG Q4H PRN PRN IV Nitroglycerin (NITROSTAT) 0.4 MG Q5M PRN PRN SL Ondansetron HCl (ZOFRAN) 4 MG Q4H PRN PRN IV Lactated Ringer's (LACTATED RINGERS) 1,000 ML .[id number] IV Acetaminophen (TYLENOL) 650 MG Q6H PRN PRN PO Hydrocodone Bitart/Acetaminophen (NORCO 5/325 TABLET) 1 TAB Q4H PRN PRN PO Hydrocodone Bitart/Acetaminophen (NORCO 7.5/325 TABLET) 1 TAB Q4H PRN PRN PO Hydrocodone Bitart/Acetaminophen (NORCO 7.5/325 TABLET) 1 TAB X1ED STA PO (DC) Morphine Sulfate (MORPHINE SULFATE) 4 MG X1ED STA IV (DC) Aspirin 325 MG X1ED STA PO (DC) This note was partially created using a voice-recognition transcribing system. I have reviewed my note and incorrect words or phrases may have been missed during proofreading. Please interpret accordingly. at 1216 RPT #:[id number] OF REPORTHPHistory and physical [id number]:31:00B.[id number] for patient [id number]:18:[address] [facility] 2023-08-02 14:33:00 [id number] YFIA YxD+kcLrmAceqxS+[id number] 4:33:00 [facility])EMERGENCY PROVIDER REPORTREPORT#:[id number] REPORT STATUS: SignedDATE:08/02/23 TIME: 1433 PATIENT: BRIGHT SALAZAR UNIT #: [id number]#: [id number] ROOM/BED: [facility]-WAGE: 58 SEX: M PCP PHYS: Tony Adams MDSERVICE AUTHOR: Lazarus Mason DO * ALL edits or amendments must be made on the electronic/computer document * HPI-General Illness GeneralInitial Greet Date/Time 08/02/23 1413 PresentationChief Complaint Chest pain Free Text HPI NotesFree Text HPI NotesPatient presents with a chief complaint of chest pain and left testicular pain. Patient states he has had chest pain intermittent for the last week or so. Describes pain as pressure-like without radiation. Patient states he has history of coronary artery disease. Patient also states over the last 3 to 4 days he has had pain to the left testicle. Denies any difficulty with urination. Denies any fever or chills. Denies any injury. Review of Systems ROS StatementsAll systems rev neg except as marked. Review of SystemsConstitutionalReports: Malaise. GIReports: Abdominal pain. Past Medical History - AdultStated Complaint CP,SOB,ABDAllergiesCoded Allergies:Xabsqti-ZHY-IvX Reductase Inhibitor (Intermediate, JOINT PAIN 08/02/23) JOINT PAIN Home MedicationsActive ScriptsMETOPROLOL SUCC XL (TOPROL XL) 50 MG PO DAILY 30 Days #30 TAB Prov: 11/19/22CLOPIDOGREL (PLAVIX) 75 MG PO DAILY CLOPIDOGREL (PLAVIX) 75 MG PO DAILY #30 TAB Prov: 10/24/22ASPIRIN 81 MG PO DAILY ASPIRIN 81 MG PO DAILY #100 TAB Prov: 10/24/22DME - INSULIN SYRINGES (INSULIN SYRINGES) EACH MISC ASDIR DME - INSULIN SYRINGES (INSULIN SYRINGES) EACH MISC ASDIR #100 Prov: 10/24/22DME - GLUCOSE LANCETS (GLUCOSE LANCETS) EACH MISC DAILY DME - GLUCOSE LANCETS (GLUCOSE LANCETS) EACH MISC DAILY #100 Prov: 10/24/22DME - GLUCOSE METER (GLUCOSE METER) EACH MISC ASDIR DME - GLUCOSE METER (GLUCOSE METER) EACH MISC ASDIR #1 Prov: 10/24/22DME - GLUCOSE STRIPS (GLUCOSE STRIPS) EACH MISC DAILY DME - GLUCOSE STRIPS (GLUCOSE STRIPS) EACH MISC DAILY #100 Prov: 10/24/22INSULIN NPH HUMAN RECOM (HumuLIN N) 15 UNIT SUBQ BID AC INSULIN NPH HUMAN RECOM (HumuLIN N) 15 UNIT SUBQ BID AC #10 ML Prov: 04/25/23COLLAGENASE (SANTYL OINT) 1 APPLIC TOPICAL DAILY COLLAGENASE (SANTYL OINT) 1 APPLIC TOPICAL DAILY #30 GM Prov: 04/25/23GABAPENTIN (NEURONTIN) 300 MG PO TID GABAPENTIN (NEURONTIN) 300 MG PO TID #90 CAP Prov: 04/25/23DOXYCYCLINE HYCLATE (VIBRA-TAB) 100 MG PO Q12H DOXYCYCLINE HYCLATE (VIBRA-TAB) 100 MG PO Q12H #24 TABS Prov: 04/25/23DICYCLOMINE (BENTYL) 10 MG PO Q6H PRN PRN ABDOMINAL PAIN/CRAMPING DICYCLOMINE (BENTYL) 10 MG PO Q6H PRN PRN ABDOMINAL PAIN/CRAMPING #30 CAPS Prov: 04/25/23 Reported MedicationsGABAPENTIN (NEURONTIN) 600 MG PO TID METOPROLOL TARTRATE (LOPRESSOR) 50 MG PO BID CLOPIDOGREL (PLAVIX) 75 MG PO BEDTIME ZOLPIDEM (AMBIEN) 10 MG PO BEDTIME PRN PRN SLEEP Past Medical History:Reports: Coronary artery disease, Diabetes mellitus, Hypertension, Dyslipidemia. Additional Medical HistoryDM 2 CAD, multivessel LVEF 50-55% Hypertension Hyperlipidemia Poor medical follow through and complaince. PVD Diabetic Neuropathy Lt BKA infection req'ing multiple rounds of antibiotics andhospitalizations. Falls Atherosclerosis to the thoracic aorta, coronary arteries, abdominal aortaand branching vessels Calcified granulomas RLL Degenerative disc disease L3-L5 and cervical spine Osteophytosis lower thoracic spine Right ICA stenosis 09/26/2022 Right MCA CVA 09/26/22 Indeterminate right parotid lesionsPast Surgical History:Reports: CABG (x4), Cholecystectomy. Additional Surgical HistoryR CEA 10/08/22 CABG and PCI 2009 Multiple toe amputations transmetatarsal amputation 2020 Left BKA 2 stage dditional Family HistoryFamily history of diabetes, no bleeding or clotting dyscrasiasAlcohol Use Last drink was rug Use Denies recreational drugsSmoking status for patients 13 years old or older: Unknown,if ever smokedAdditional Social HistoryLives alone. Stated his sister left so he is alone. Concerned he has not utilities on at his house. Physical Exam Vital SignsVital SignsFirst Documented: Result Date Time Pulse Ox 100 08/02 1411 B/P 110/68 08/02 1411 B/P Mean 82 08/02 1411 O2 Delivery Room air 08/02 141 Temp 97.9 08/02 1411 Pulse 104 08/02 1411 Resp 18 08/02 1411 Last Documented: Result Date Time Pulse Ox 96 08/02 2100 B/P 121/63 08/02 2100 B/P Mean 86 08/02 2100 Pulse 86 08/02 2100 Resp 14 08/02 1519 O2 Delivery Room air 08/02 1411 Temp 97.9 08/02 1411 Review of Vital Signs Reviewed Physical ExamGeneral/Const General/Const Awake, AlertMS Head Head NormocephalicEyes Eyes PERRL, EOMIEars/Nose/Throat Ears/Nose/Throat Airway patentMS Neck Neck SuppleResp/Chest Respiratory/Chest Breath sounds NL, Breath sounds = bilat, No respiratory distress, No ralesCardiovascular Cardiovascular Heart rate NL, Regular rhythm, Heart sounds NLAbdomen/GI Abdomen/GI Soft, Non-tender, No guarding, No reboundMS Back Back Inspection NLSkin Skin Warm, DryNeurologic Neurologic Oriented X3, Speech NL Interpretation Diagnostics Lab Results InterpretationResultsLaboratory Tests 08/02/23 1524:[Embedded Image Not Available]Laboratory Tests: 08/02 08/02 1737 1524 Chemistry Troponin I High Sens (0 - 45 ng/L) 9 9 08/02 1524 Chemistry Sodium (133 - 144 mmol/L) 130.0 L Potassium (3.5 - 5.1 mmol/L) 4.3 Chloride (95 - 105 mmol/L) 104 Carbon Dioxide (21 - 32 mmol/L) 21 Anion Gap (4.0 - 15.0 GAP calc) 5.0 BUN (7 - 18 MG/DL) 16 Creatinine (0.55 - 1.30 MG/DL) 1.01 Glomerular Filtr Rate (>60 estGFR) 86 Glucose (70 - 110 MG/DL) 230 H Calcium (8.5 - 10.1 MG/DL) 9.1 Specimen Appearance (1 NORMAL Index/DL) 1 NORMAL <2 MG Specimen Hemolysis (1 NORMAL Index/DL) 1 NORMAL <10 MG Hematology WBC (4.1 - 12.1 K/mm3) 12.5 H RBC (3.8 - 5.5 M/mm3) 5.30 Hgb (10.6 - 15.8 G/DL) 15.5 Hct (31.8 - 47.4 %) 44.3 MCV (80.1 - 101.1 fL) 83.6 MCH (25.3 - 35.3 pg) 29.2 MCHC (32.7 - 35.1 G/DL) 35.0 RDW (12.2 - 16.4 %) 13.1 Plt Count (155 - 337 K/mm3) 176 MPV (7.6 - 10.4 fL) 10.0 Urines Urine Color (YELLOW DESCRIPT) DARK-YELLOW Urine Appearance (CLEAR DESCRIPT) TURBID (1+)HAZY-CLDY H Urine pH (4.6 - 8.0 pH UNITS) 5.5 Ur Specific [place] (1.001 - 1.035 SG) 1.040 H Urine Protein ((NEG) <30 mg/dL) 600 (3+) H Urine Glucose (UA) (0 (NORMAL) mg/dL) 200 (2+) H Urine Ketones ((NEG) 0 mg/dL) TRACE Urine Blood (0 (NEG) mg/dL) NEGATIVE (0.00) Urine Nitrite (NEG SCREEN) NEGATIVE (0) Urine Bilirubin ((NEG) 0 mg/dL) 1.0 (1+) H Urine Urobilinogen ((NORM)<2.0 mg/Dl) 4 (2+) H Ur Leukocyte Esterase ((NEG) 0 Leuk/mcL) NEGATIVE (0) Urine RBC (0 - 3 #RBC/HPF) 0-3 Urine WBC (0 - 3 #WBC/HPF) 5-10 H Urine Bacteria (NONE - FEW /HPF) FEW >1 Cellular Casts (NONE #/LPF) 10-20 H Hyaline Casts (0 - 3 #/LPF) >20 H Urine Mucus (NONE /LPF) MANY H Recent Impressions:RADIOLOGY - XR CHEST 1 V 08/02 1439 Report Impression - Status: SIGNED Entered: 08/02/2023 1502 IMPRESSION: Unremarkable frontal chest radiograph.Impression By: [email or web address] - HARINDER Schroeder - DUP AB/PEL/SC COMP 08/02 1448 Report Impression - Status: SIGNED Entered: 08/02/2023 1605 IMPRESSION: No acute or significant imaging abnormality. Normal blood flow is seen to the testes. Please refer to the findings section for additional details.Impression By: [email or web address] HARINDER Baker - US SCROTUM AND CNTS 08/02 1448 Report Impression - Status: SIGNED Entered: 08/02/2023 1605 IMPRESSION: No acute or significant imaging abnormality. Normal blood flow is seen to the testes. Please refer to the findings section for additional details.Impression By: KEYLA SinghADIOLOGY - XR TIBIA/FIBULA 2 V LT 08/02 1836 Report Impression - Status: SIGNED Entered: 08/02/2023 1858 IMPRESSION:Status post BKA.Impression By: Corey - Mauri Barrera, [facility] - CT ABD PELVIS W/O CONT 08/02 1839 Report Impression - Status: SIGNED Entered: 08/02/2023 191 IMPRESSION:1. No acute abdominal findings.2. Status post cholecystectomy.3. Nephrolithiasis.4. Status post appendectomy.5. Prostatic hypertrophy.Impression By: Corey Barrera MD Re-Evaluation MDM Free Text MDM NotesAdditional TextMedical decision making Number and complexity of problems multipleDifferential diagnosis: Abdominal pain, torsion, UTI, kidney stone, colitis, chronic pain, malingering, chest pain, ACSMDM dataExternal documents reviewed:My EKG interpretation N/Jasbir CT interpretation reviewed CT results.My x-ray interpretation reviewed x-ray reportMy ultrasound interpretation: N/ALabs reviewed by me;Decision rules/scores evaluatedDiscussed with; Dr. Austin for admissionI considered admission for: Abdominal pain, stomach pain, prostatitis, testicular pain, chestTreatment and disposition: Pain medication. AdmissionED course: Patient did not want to go home. States he is in too much pain. Patient admitted to Dr. Austin.Shared decision making: Patient request admission.CODE STATUS: Full code ED CourseMedication(s) OrderedMedication(s) Ordered:Central Nervous System Agents Sig/Ekta Start time Last Medication Dose Route Stop Time Status Admin Hydrocodone Bitart/ 1 TAB X1ED STA 08/02 1854 DC 08/02 Acetaminophen PO 08/02 1855 1933 Morphine Sulfate 4 MG X1ED STA 08/02 1529 DC 08/02 IV 08/02 1530 1555 Aspirin 325 MG X1ED STA 08/02 1428 DC PO 08/02 1429 Patient Discharge Departure Vital Signs/ConditionVital SignsFirst Documented: Result Date Time Pulse Ox 100 08/02 1411 B/P 110/68 08/02 1411 B/P Mean 82 08/02 1411 O2 Delivery Room air 08/02 1411 Temp 97.9 08/02 1411 Pulse 104 08/02 1411 Resp 18 08/02 1411 Last Documented: Result Date Time Pulse Ox 96 08/02 2100 B/P 121/63 08/02 2100 B/P Mean 86 08/02 2100 Pulse 86 08/02 2100 Resp 14 08/02 1519 O2 Delivery Room air 08/02 1411 Temp 97.9 08/02 1411 All vital signs available at the time of this entry have been reviewed. Clinical ImpressionClinical ImpressionPrimary Impression: Abdominal painSecondary Impressions: Prostatitis, Stump pain, Testicle pain Disposition DecisionHospitalize Hosp Physician Name Ezra Austin MD [facility] Physician Hospitalist Request Time 2100 Request Date 08/02/23 )( Accepts Hospitalization Yes )( Accepted Time 2100 )( Accepted Date 08/02/23 Call Information will see patient, agrees with eval, agrees with plan Discharge/Care Plan(Auto) PrescriptionsCurrent Visit ScriptsDICYCLOMINE (BENTYL) 10 MG PO Q6H PRN PRN ABDOMINAL PAIN/CRAMPING DICYCLOMINE (BENTYL) 10 MG PO Q6H PRN PRN ABDOMINAL PAIN/CRAMPING #20 CAPS CEPHALEXIN (KEFLEX) 500 MG PO Q6H CEPHALEXIN (KEFLEX) 500 MG PO Q6H #28 CAPS Admit NoteI have spoken with the patient and/or caregivers. I have explained the patient'scondition, diagnoses and treatment plan based on the information available to meat this time. I have answered the patient's and/or caregiver's questions and addressed any concerns. The patient and/or caregivers have as good an understanding of the patient's diagnosis, condition and treatment plan as can beexpected at this point. The patient has been stabilized within the capability ofthe emergency department. The patient will be transported for further care and management or will be moved to an observation or inpatient service. I have communicated with the staff or medical practitioner taking over this patient's care. at 0920RPT #:[id number] OF REPORTEDEmerashley county medical center department [id number]:33:00B.[id number] AVAvailable for patient [id number]:21:17 [facility] 2023-07-14 13:23:39 [id number]:23:39Formatting of this no te is different from the original.TRANSITIONAL CARE MANAGEMENT ASSESSMENT4Robermartin Jason [id number] Jason Salazar is a 58 year old /White male was admitted on 1/28/24 to [facility], [address] He was discharged on 07/11/23 with discharge disposition of HR- Routine Discharge.Admitting Physician: Dominique Cooleyarge Diagnosis: Toxic Metabolic Encephalopathy 2/2 Ambien + Flexeril OverdoseLinked EpisodesType: Episode: Status: Noted: Resolved: Last update: Updated by:TRANSITION OF CARE TCM Active 07/11/2023 07/14/2023 1:16 PM Kennedi Garnica RNComments:07/11/2023TCM Tbl-eiin-yw-face outreach documentation:Discharge AssessmentChart Assessed: 07/14/23TCM Outreach Completed: 07/14/23Do you have a few minutes to speak with me about how you are doing at home?: YesDischarge InstructionsDo you understand your at-home instructions?: YesMedicationsHave you filled your prescriptions and do you have them in your home? : N/A (no new medications with this discharge)SuppliesDid you receive applicable home medical supplies/equipment?: N/AFollow Up AppointmentHas a follow up appointment been scheduled?: NoMay I assist with scheduling this appointment?: Unable to schedule-referred to HFU TeamDo you have any questions about your follow up appointments?: NoAre you able to get to your appointment? Who will be taking you?: No (CM will send SW referral)Home Health AssistanceHas the home health nurse contacted you since you've been home?: N/ASurvey - RecognitionDo you have any other questions or concerns at this time?: NoFuture Appointments: 95212-6Hhkptkqrw encounter TmcjEB5145-78-63C30:23:57Telephone encounter NoteTXT1.2.840.134856.1.13.104.2.7.2.298188| [id number] for patient dvpc50252-9YkuwECRWTKOQFKDRwrwqwvse C-CDA narrative [id number] Garnica RNUTMB[address] Um[id number] IMMZJWXQCNISCB8837-77-83H37:23:571.2.840.114 350.1.72.3.15|1.2.840.770323.1.13.104.2.7.2. 727879_[id number] Kennedi Garnica RN [facility] 2023-07-11 10:28:48 4400-95-82E43:28:48Formatting of this no te might be different from the original.Problem: Discharge PlanningGoal: Effective communicationOutcome: Progressing as expectedProblem: Glucose Control - Initiated in Adult CCGoal: Glucose level within specified parametersOutcome: Progressing as expectedProblem: Infection, Risk of or ActualGoal: Absence of infectionOutcome: Progressing as expectedProblem: Mental Status - Impaired, Risk ofGoal: Mental status restored to baselineOutcome: Progressing as expectedGoal: Absence of physical injuryOutcome: Progressing as expectedProblem: Nutrition DeficitGoal: Adequate nutritional intakeOutcome: Progressing as expectedProblem: PainGoal: Control of pain at or below patient's documented comfort goalOutcome: Progressing as expectedGoal: Reduction in pain sensationOutcome: Progressing as expectedProblem: Respiratory Function - ImpairedGoal: Able to cough effectivelyOutcome: Progressing as expectedGoal: Adequate oxygenationOutcome: Progressing as expectedGoal: Adequate work of breathingOutcome: Progressing as expectedGoal: Patent airwayOutcome: Progressing as expectedProblem: Glucose controlGoal: Glucose level within specified parametersOutcome: Progressing as expected 12287-9Fgex of care xcrkHG1731-19-57R22:29:09Plan of care noteTXT1.2.840.451398.1.13.104.2.7.2.313990| [id number] for patient lkym37591-9XmzgIRSIGCONAMABcfxgjdji C-CDA narrative [id number] Nice RNUT[address] Ts[id number] WIFTMUWLKRPIJA0924-90-49Y16:29:091.2.840.114 350.1.72.3.15|1.2.840.895126.1.13.104.2.7.2. 727879_[id number] Héctor Nice RN [facility] 2023-07-10 21:29:44 9584-46-72B05:29:44Formatting of this no te might be different from the original.Problem: Discharge PlanningGoal: Effective communicationOutcome: Progressing as expectedProblem: Glucose Control - Initiated in Adult CCGoal: Glucose level within specified parametersOutcome: Progressing as expectedProblem: Infection, Risk of or ActualGoal: Absence of infectionOutcome: Progressing as expectedProblem: Mental Status - Impaired, Risk ofGoal: Mental status restored to baselineOutcome: Progressing as expectedGoal: Absence of physical injuryOutcome: Progressing as expectedProblem: Nutrition DeficitGoal: Adequate nutritional intakeOutcome: Progressing as expectedProblem: PainGoal: Control of pain at or below patient's documented comfort goalOutcome: Progressing as expectedGoal: Reduction in pain sensationOutcome: Progressing as expectedProblem: Respiratory Function - ImpairedGoal: Able to cough effectivelyOutcome: Progressing as expectedGoal: Adequate oxygenationOutcome: Progressing as expectedGoal: Adequate work of breathingOutcome: Progressing as expectedGoal: Patent airwayOutcome: Progressing as expectedProblem: Skin integrity Impaired (Risk or Actual)Goal: Wound healingOutcome: Progressing as expectedProblem: Tissue Perfusion - Altered, Risk ofGoal: Hemodynamically stableOutcome: Progressing as expectedProblem: PainGoal: Reduction in pain sensationOutcome: Progressing as expectedProblem: Falls, Risk ofGoal: Absence of fallsOutcome: Progressing as expectedProblem: Infection RiskGoal: Absence of infectionOutcome: Progressing as expectedProblem: Skin integrity Impaired (Risk or Actual)Goal: Wound healingOutcome: Progressing as expectedGoal: Prevention of new skin breakdownOutcome: Progressing as expectedProblem: Glucose controlGoal: Glucose level within specified parametersOutcome: Progressing as expected 42586-4Bqpw of care tzxsPD5559-28-13Z32:29:46Plan of care noteTXT1.2.840.162898.1.13.104.2.7.2.093598| 7519766230YQUfaubcvje for patient ptvo87290-4RleiCOKAHSWWZKFZkbrgllpd C-CDA narrative text[address] StreetYeacS[id number] YPVHUHAELUECPD1970-30-04P64:29:461.2.840.114 350.1.72.3.15|1.2.840.455400.1.13.104.2.7.2. 727879_[id number] [facility] 2023-07-10 10:46:33 2451-31-13P42:46:33Formatting of this no te might be different from the original.Problem: Tissue Perfusion - Altered, Risk ofGoal: Hemodynamically stableOutcome: Progressing as expectedProblem: PainGoal: Reduction in pain sensationOutcome: Progressing as expectedProblem: Falls, Risk ofGoal: Absence of fallsOutcome: Progressing as expectedProblem: Infection RiskGoal: Absence of infectionOutcome: Progressing as expectedProblem: Skin integrity Impaired (Risk or Actual)Goal: Wound healingOutcome: Progressing as expectedGoal: Prevention of new skin breakdownOutcome: Progressing as expectedProblem: Discharge PlanningGoal: Effective communicationOutcome: Progressing as expectedProblem: Glucose Control - Initiated in Adult CCGoal: Glucose level within specified parametersOutcome: Progressing as expectedProblem: Infection, Risk of or ActualGoal: Absence of infectionOutcome: Progressing as expectedProblem: Mental Status - Impaired, Risk ofGoal: Mental status restored to baselineOutcome: Progressing as expectedGoal: Absence of physical injuryOutcome: Progressing as expectedProblem: Nutrition DeficitGoal: Adequate nutritional intakeOutcome: Progressing as expectedProblem: PainGoal: Control of pain at or below patient's documented comfort goalOutcome: Progressing as expectedGoal: Reduction in pain sensationOutcome: Progressing as expectedProblem: Respiratory Function - ImpairedGoal: Able to cough effectivelyOutcome: Progressing as expectedGoal: Adequate oxygenationOutcome: Progressing as expectedGoal: Adequate work of breathingOutcome: Progressing as expectedGoal: Patent airwayOutcome: Progressing as expected 60738-4Vgsq of care hyajVF2236-06-70O23:47:09Plan of care noteTXT1.2.840.011394.1.13.104.2.7.2.759599| [id number] for patient elmd73919-8TgpxCXFVOCAKCPBOoferhrjy C-CDA narrative textUT[address] Rn[id number] CPHZAXSVVFVRRT7788-51-81F35:47:091.2.840.114 350.1.72.3.15|1.2.840.381701.1.13.104.2.7.2. 727879_[id number] [facility] 2023-07-09 22:03:35 4956-56-65X70:03:35Formatting of this no te might be different from the original.Conradoparris Petty called and claimed to be the patient's sister and asked regarding patient status/condition . I told her that the doctor is not at the bedside at this time and will let the doctor know that she wants an update .Conrado's number is [phone]. Dr Vargas was paged and notified re Conrado's request for an update re patient condition and MD said the main team will call her in am . Conrado gave the code to me (purple ).Per patient , he have 2 siblings from his dad - Mary and Jose(half brother) and one from mother -Juvencio. Mother's name is Enedelia Quintero. Patient said that he have 3 daughters -Ofelia, Belinda and Kristine. If we need to give information regarding his condition please inform Kristine,patient does not know her telephone number . (Families number are in his cell phone and he does not know where his cellphone is ) 54454-1Tsppe HbrfCM3538-29-21R52:06:40Nurse NoteTXT1.2.840.634600.1.13.104.2.7.2.977368| [id number] for patient assh33081-5Mtelt NoteLNNARRATIVEFormatted C-CDA narrative text[address] Nf[id number] OAXEQESAIMWYLY2237-82-37H29:06:401.2.840.114 350.1.72.3.15|1.2.840.826751.1.13.104.2.7.2. 727879_[id number] [facility] 2023-07-09 20:09:00 1073-00-17K65:09:00Formatting of this no te might be different from the original.Problem: Discharge PlanningGoal: Effective communication07/09/20232007 by Mckenna Elder RNOutcome: Progressing as expected07/09/2023 2006 by Mckenna Elder RNOutcome: Progressing as expectedProblem: Glucose Control - Initiated in Adult CCGoal: Glucose level within specified parameters07/09/20232007 by Mckenna Elder RNOutcome: Progressing as expected07/09/2023 2006 by Mckenna Elder RNOutcome: Progressing as expectedProblem: Infection, Risk of or ActualGoal: Absence of infection07/09/20232007 by Mckenna Elder RNOutcome: Progressing as expected07/09/20232005 by Mckenna Elder RNOutcome: Progressing as expectedProblem: Mental Status - Impaired, Risk ofGoal: Mental status restored to baseline07/09/20232007 by Mckenna Elder RNOutcome: Progressing as expected07/09/2023 2006 by Mckenna Elder RNOutcome: Progressing as expectedGoal: Absence of physical injury07/09/20232007 by Zerrudo, Mckenna, RNOutcome: Progressing as expected07/09/2023 2006 by Mckenna Elder RNOutcome: Progressing as expectedProblem: Nutrition DeficitGoal: Adequate nutritional intake07/09/20232007 by Mckenna Elder RNOutcome: Progressing as expected07/09/2023 2006 by Mckenna Elder RNOutcome: Progressing as expectedProblem: PainGoal: Control of pain at or below patient's documented comfort goal07/09/20232007 by Mckenna Elder RNOutcome: Progressing as expected07/09/2023 2006 by Mckenna Elder RNOutcome: Progressing as expectedGoal: Reduction in pain sensation07/09/20232007 by Mckenna Elder RNOutcome: Progressing as expected07/09/2023 2006 by Mckenna Elder RNOutcome: Progressing as expectedProblem: Respiratory Function - ImpairedGoal: Able to cough effectively07/09/20232007 by Mckenna Elder RNOutcome: Progressing as expected07/09/2023 2006 by Mckenna Elder RNOutcome: Progressing as expectedGoal: Adequate oxygenation07/09/20232007 by Mckenna Elder RNOutcome: Progressing as expected07/09/20232005 by Mckenna Elder RNOutcome: Progressing as expectedGoal: Adequate work of breathing07/09/20232007 by Mckenna Elder RNOutcome: Progressing as expected07/09/20232005 by Mckenna Elder RNOutcome: Progressing as expectedGoal: Patent airway07/09/20232007 by Mckenna Elder RNOutcome: Progressing as expected07/09/20232005 by Mckenna Elder RNOutcome: Progressing as expectedProblem: Skin integrity Impaired (Risk or Actual)Goal: Wound healing07/09/20232007 by Mckenna Elder RNOutcome: Progressing as expected07/09/20232005 by Mckenna Elder RNOutcome: Progressing as expectedProblem: Tissue Perfusion - Altered, Risk ofGoal: Hemodynamically stable07/09/20232007 by Mckenna Elder RNOutcome: Progressing as expected07/09/2023 2006 by Mckenna Elder RNOutcome: Progressing as expectedProblem: Restraint UseGoal: Absence of restraint indications07/09/20232007 by Mckenna Elder RNOutcome: Progressing as expected07/09/2023 2006 by Mckenna Elder RNOutcome: Progressing as expectedGoal: Absence of restraint-related injury07/09/20232007 by Mckenna Elder RNOutcome: Progressing as expected07/09/2023 2006 by Mckenna Elder RNOutcome: Progressing as expectedProblem: PainGoal: Reduction in pain sensationOutcome: Progressing as expectedProblem: Falls, Risk ofGoal: Absence of fallsOutcome: Progressing as expectedProblem: Infection RiskGoal: Absence of infectionOutcome: Progressing as expectedProblem: Skin integrity Impaired (Risk or Actual)Goal: Wound healingOutcome: Progressing as expectedGoal: Prevention of new skin breakdownOutcome: Progressing as expectedProblem: Glucose controlGoal: Glucose level within specified parametersOutcome: Progressing as expected 56014-5Bvhb of care knguEX7312-69-50W75:09:02Plan of care noteTXT1.2.840.633488.1.13.104.2.7.2.545476| 7522394938KENqwnhcxsk for patient qccr91589-9PpsfAHGCQJBZHEETlznehsen C-CDA narrative textUT[address] Ay[id number] OOCSMNLHDTRSRR7376-59-11D61:09:021.2.840.114 350.1.72.3.15|1.2.840.690763.1.13.104.2.7.2. 727879_[id number] [facility] 2023-07-09 20:06:59 6226-93-41J17:06:59Formatting of this no te might be different from the original.Problem: Discharge PlanningGoal: Effective communicationOutcome: Progressing as expectedProblem: Glucose Control - Initiated in Adult CCGoal: Glucose level within specified parametersOutcome: Progressing as expectedProblem: Infection, Risk of or ActualGoal: Absence of infectionOutcome: Progressing as expectedProblem: Mental Status - Impaired, Risk ofGoal: Mental status restored to baselineOutcome: Progressing as expectedGoal: Absence of physical injuryOutcome: Progressing as expectedProblem: Nutrition DeficitGoal: Adequate nutritional intakeOutcome: Progressing as expectedProblem: PainGoal: Control of pain at or below patient's documented comfort goalOutcome: Progressing as expectedGoal: Reduction in pain sensationOutcome: Progressing as expectedProblem: Respiratory Function - ImpairedGoal: Able to cough effectivelyOutcome: Progressing as expectedGoal: Adequate oxygenationOutcome: Progressing as expectedGoal: Adequate work of breathingOutcome: Progressing as expectedGoal: Patent airwayOutcome: Progressing as expectedProblem: Skin integrity Impaired (Risk or Actual)Goal: Wound healingOutcome: Progressing as expectedProblem: Tissue Perfusion - Altered, Risk ofGoal: Hemodynamically stableOutcome: Progressing as expectedProblem: Restraint UseGoal: Absence of restraint indicationsOutcome: Progressing as expectedGoal: Absence of restraint-related injuryOutcome: Progressing as expected 24070-9Eghz of care nomuLX5807-90-84M39:07:01Plan of care noteTXT1.2.840.824372.1.13.104.2.7.2.771909| 4091698962UBMwmhdnizk for patient quit20891-2ErahHHNDQWXTPFXUyoxfqrup C-CDA narrative textUT52 Andrews StreetDveeNhvpxwgkaSngygbyixUNYZ1273382233PXFNCHII IFPKMONSKLDIZP1878-71-86X59:07:011.2.840.114 350.1.72.3.15|1.2.840.029834.1.13.104.2.7.2. 727879_[id number] [facility] 2023-07-07 06:20:54 0630-54-85G43:20:54Formatting of this no te might be different from the original.Problem: Restraint UseGoal: Absence of restraint indicationsOutcome: ResolvedGoal: Absence of restraint-related injuryOutcome: Resolved 48242-3Bdec of care ozurDS4943-34-99G49:20:56Plan of care noteTXT1.2.840.967503.1.13.104.2.7.2.755690| 8282120510BSEujlcibib for patient mppe91770-0XrfcANTTQCUZYBIGbzldhbad C-CDA narrative jigg148567751Vnglss R Ingles RNUT56 Dean [id number] ZDYNRJTBGSKUBJ2054-69-38J30:20:561.2.840.114 350.1.72.3.15|1.2.840.308432.1.13.104.2.7.2. 727879_[id number] Sophia Lopez RN [facility] 2023-07-06 03:27:31 2190-46-41W29:27:31Formatting of this no te might be different from the original.Pt stable for transfer to ICU 832. Pt to floor with ED RN, ERT and RT. Pt on continuous cardiac, NBP, and SpO2 monitoring. Zoll defibrillator and ambu bag present on bed. Patient on tele monitoring [place]. 98444-7Rbtgdqpzp department LpejGJ8334-28-20M68:27:48Emergen department NoteTXT1.2.840.561019.1.13.104.2.7.2.998147| 1848171722FWNpxmiophs for patient flmj24478-1QklvTLSZFSDSMPZMmltpufhh C-CDA narrative textUTMB70 [address] StreetTXTX7755577555USUSGALV WNVKCBPIAEGOPU4771-83-77K29:27:481.2.840.114 350.1.72.3.15|1.2.840.666208.1.13.104.2.7.2. 727879_[id number] [facility] 2023-07-06 03:17:06 5526-18-99H70:17:06Formatting of this no te might be different from the original.Report given to Barbi RICHARDSON on 8B. Patient chief complaint, current status and assessment findings, allergies, orders, infusion verify, and MAR reviewed. Patient in possession of all belongings. Patient to be transported to ICU shortly, pending arrival of RT w/ transport ventilator. 86952-6Utjqvuucy department OmnbFN6935-86-32N68:18:02[facility] NoteTXT1.2.840.556348.1.13.104.2.7.2.959296| 0090801749NGSgrkoihxg for patient ouzv32098-1UthhYXUNLATTCHCRfmomorxy C-CDA narrative [id number] LJXTTPIFNLILKA7352-40-08N48:18:021.2.840.114 350.1.72.3.15|1.2.840.311809.1.13.104.2.7.2. 727879_[id number] [facility] 2023-07-06 02:56:53 7768-50-25F79:56:53Formatting of this no te might be different from the original.MICU at bedside. 07305-9Sdhnyykzv department DmooUW8486-23-56V56:56:59[facility] NoteTXT1.2.840.752195.1.13.104.2.7.2.524184| 7106548450HAKqlwawnpf for patient vita64563-2JagnICPNRIMZFWYBckhbobvv C-CDA narrative text[address] [id number] HVXGEOLNZLGBOT2774-82-47T80:56:591.2.840.114 350.1.72.3.15|1.2.840.879992.1.13.104.2.7.2. 727879_[id number] [facility] 2023-07-06 02:50:19 9491-38-66T49:50:19Formatting of this no te might be different from the original.Xray at bedside. 00712-5Trcrxxsic department EirrSQ4991-98-11X11:50:26[facility] NoteTXT1.2.840.549525.1.13.104.2.7.2.902307| [id number] for patient ehqi68604-2MbotZXANDCAQNVPOavoubwbs C-CDA narrative xbkk909319249Hfovod Gay RNUT56 [address] [id number] EZWUABRHYNMIET0266-68-51T76:50:261.2.840.114 350.1.72.3.15|1.2.840.993928.1.13.104.2.7.2. 727879_[id number] Lyly Mcdaniel RN [facility] 2023-07-06 02:45:24 0060-82-13P07:45:24Associated Order(s): Intubation IntubationDate/Time: 07/06/2023 2:43 AMPerformed by: Freddie Han, MDAuthorized by: Edward Batista MDConsent:Consent obtained: Emergent situationUniversal protocol:Patient identity confirmed: Arm band and hospital-assigned identification numberPre-procedure details:Indications: altered consciousnessPatient status: Altered mental statusLook externally: facial hairMouth opening - incisor distance: 3 or more finger widthsHyoid-mental distance: 3 or more finger widthsHyoid-thyroid distance: 2 or more finger widthsMallampati score: IIObstruction: noneNeck mobility: normalPharmacologic strategy: RSISedation: versed.Paralytics: SuccinylcholineProcedure details:Preoxygenation: Bag valve maskCPR in progress: noNumber of attempts: 1Successful intubation attempt details:Intubation technique: video assistedLaryngoscope blade: Mac 3Bougie used: noGrade view: ITube size (mm): 8.0Tube type: CuffedTube visualized through cords: yesPlacement assessment:ETT at teeth/gumline (cm): 23Tube secured with: ETT holderBreath sounds: EqualPlacement verification: chest rise, colorimetric ETCO2 and direct visualizationPost-procedure details:Procedure completion: Tolerated well, no immediate complications ssociated attestation - Edward Batista MD - 07/06/2023 6:34 AM CST I was present for and supervised the entire procedure(s).48867-4Uuumunrum department TwokFN3039131Fdtcs, Brent J1.2.840.680380.1.13.104.2.7.2.181621OryodQx wbySTJ6207-73-20O62:34:31Emergency department NoteTXT1.2.840.048944.1.13.104.2.7.2.463878| [id number] for patient xyeg61616-3ClblMNOFJVRYYEWPqexnsspx C-CDA narrative gkufGP-VWHWRRTQICFKRCMT-ETKLKSAKIGKCEMQZLMPF [address] MqurAngoglhtxXicsdopofFQQO8389915700SPZRTHWU EXVVWBEOLDZYBG4942-42-14T98:34:311.2.840.114 350.1.72.3.15|1.2.840.318896.1.13.104.2.7.2. 727879_[id number] AN-ANESTHESIOL OGY [facility] 2023-07-06 02:44:13 1404-24-02M37:44:13Formatting of this no te might be different from the original.Xray contacted for bedside xray [address]114-9Fanmrlznb[address] YwbrNJ5370-58-13D04:44:22[facility] NoteTXT1.2.840.636770.1.13.104.2.7.2.191832| 7056721373QEWwbuxpprs for patient oraa09340-7OvtzWOWYGSLXWRTIwpffwjzz C-CDA narrative [id number] RKTQFERPSDEJEM9413-33-13X66:44:221.2.840.114 350.1.72.3.15|1.2.840.237820.1.13.104.2.7.2. 727879_[id number] [facility] 2023-07-06 02:43:36 9636-08-16L58:43:36Formatting of this no te might be different from the original.OG tube placed, 70 at teeth 88277-0Pfescfbmj[address] GkvyDN9829-96-81T34:44:12[facility] NoteTXT1.2.840.488772.1.13.104.2.7.2.905315| 5420926331YVYvuasarzy for patient rcbw60569-5RdlxNWIYKZRBJELDswxnzzwd C-CDA narrative [id number] NXXSMBXESFBISG1634-79-59O62:44:121.2.840.114 350.1.72.3.15|1.2.840.825708.1.13.104.2.7.2. 727879_[id number] [facility] 2023-07-06 02:39:36 6165-59-67N84:39:36Formatting of this no te might be different from the original.8.0 ett tube cuffed [address] Jay+ color changeBilateral breath sounds 29451-6Ecknkegvs department DvxgLT1261-70-16S12:41:12[facility] NoteTXT1.2.840.107291.1.13.104.2.7.2.388750| 5806177037QHLldtswmpu for patient ttbs09253-0YfcdDWSRIFVDKXGNqlwjpfdf C-CDA narrative text[address] [id number] REOYFOLOAXQIKV1739-55-28O57:41:121.2.840.114 350.1.72.3.15|1.2.840.439226.1.13.104.2.7.2. 727879_[id number] [facility] 2023-07-06 02:37:45 1301-73-67G77:37:45Formatting of this no te might be different from the original.100mg succs given at this time 22640-1Twgouzygm department HinoAC7501-71-32A40:37:55[facility] NoteTXT1.2.840.022853.1.13.104.2.7.2.360755| 7480134582ALPjxdvjxxf for patient otpr99132-5OwkcOQYRMDEUDFBMdjhwlivg C-CDA narrative text22 [address] [id number] TNLMURPRUHZONG1388-76-32Z62:37:551.2.840.114 350.1.72.3.15|1.2.840.759374.1.13.104.2.7.2. 727879_[id number] [facility] 2023-07-06 02:36:01 9407-68-79Y17:36:01Formatting of this no te might be different from the original.5mg versed given at this time 15805-8Fmmpqmeve[address] [place] [address] DzwbND4324-91-22H00:36:19[facility] NoteTXT1.2.840.651737.1.13.104.2.7.2.563606| 2064385243LAWfryycamv for patient saff49896-4XuuqYYJJYYNRLNDTqmzhmzde C-CDA narrative text[address] [id number] PZLZFQLFVQAQFX0535-28-78P11:36:191.2.840.114 350.1.72.3.15|1.2.840.100851.1.13.104.2.7.2. 727879_[id number] [facility] 2023-07-06 02:35:43 8898-46-69O37:35:43Formatting of this no te might be different from the original.5 mg Versed and 100mg Succs prepared at this time for intubation 40106-1Drgzmgctw[address] BllyMV0172-46-70K35:36:01[facility] NoteTXT1.2.840.744237.1.13.104.2.7.2.758543| 5165884849LFAvfpgkijv for patient xulu19452-0OijxRYTYAWGOPMJGooepwfjj C-CDA narrative text[address] [id number] JAXLATZDSTKXER4138-04-55I13:36:011.2.840.114 350.1.72.3.15|1.2.840.322272.1.13.104.2.7.2. 727879_[id number] [facility] 2023-07-06 02:31:43 4293-88-02M99:31:43Formatting of this no te might be different from the original.RT, CN, Dr. Batista, and RN x 2 at bedside for intubation 91606-3Dpujzbggl[address] YedfUD2912-23-96G58:32:04[facility] NoteTXT1.2.840.019979.1.13.104.2.7.2.399389| 7886885816KDXghpixtpu for patient srwq92030-0QzpxLRNACGCARDDLpyovqfco C-CDA narrative text[id number] GROUP HEALTH COOPERATIVE CENTRAL HOSPITALBMFQNLXSUAZPBM8035-79-36F53:32:041.2.840.114 350.1.72.3.15|1.2.840.212569.1.13.104.2.7.2. 727879_[id number] [facility] 2023-07-06 02:25:00 7196-32-56V81:25:00Formatting of this no te might be different from the original.Dr. Batista reports patient to be intubated. CN and RT notified. 43965-3Cwcjzhzjh department TpjzKC0866-63-07B32:31:42[facility] NoteTXT1.2.840.219479.1.13.104.2.7.2.734657| 0001893619GZVqehcsbkn for patient gxgo91176-5HimgRFCZSUHCPGSIhqhpsbxr C-CDA narrative Aras[id number] EZBYINXQKLPDZW9205-01-56R14:31:421.2.840.114 350.1.72.3.15|1.2.840.823251.1.13.104.2.7.2. 727879_[id number] [facility] 2023-07-06 02:22:15 2038-13-26I63:22:15Formatting of this no te might be different from the original.Dr. Batista at bedside. 52849-5Uwfehkzxg department QkyiGQ9226-44-24M73:22:22[facility] NoteTXT1.2.840.686080.1.13.104.2.7.2.187270| [id number] for patient wcyw85813-9ZmagDGRGXZMUFGUXxfbgrzyb C-CDA narrative text[address] [id number] GROUP HEALTH COOPERATIVE CENTRAL HOSPITALPHLFCRQCQTMOYX1272-71-13J80:22:221.2.840.114 350.1.72.3.15|1.2.840.915731.1.13.104.2.7.2. [id number] [facility] 2023-07-06 02:10:53 2271-84-20A22:10:53Formatting of this no te might be different from the original.Dr. Batista at bedside. 11912-7Thfzfajpg department BfsqMA3560-00-91V39:11:04[facility] NoteTXT1.2.840.007759.1.13.104.2.7.2.780557| [id number] for patient wwge80684-9IaoiMFMBUEZUOZXCbbdwrjlm C-CDA narrative text[id number] GROUP HEALTH COOPERATIVE CENTRAL HOSPITALFUWBYFTKPTDGMN8606-23-86X72:11:041.2.840.114 350.1.72.3.15|1.2.840.618134.1.13.104.2.7.2. [id number] [facility] 2023-07-06 02:00:00 2330-96-46E39:00:00Formatting of this no te might be different from the original.Patient resting in ED stretcher comfortably. Bed locked in lowest position, side rails elevated, call-light within reach. Patient RR e/u, VSS, and NAD noted.Patient pending urine sample collection and dispo at this time. 14939-8Qjvxgnljx department OsotCM2541-71-70C47:06:57[facility] department NoteTXT1.2.840.257132.1.13.104.2.7.2.038968| [id number] for patient zntn77604-1CxjgZNRJRFIMULPXabfbwvri C-CDA narrative textUT56 [address] [id number] [facility] CENTRAL HOSPITALWBOUTKJRNTRELF5514-66-19M89:06:571.2.840.114 350.1.72.3.15|1.2.840.026769.1.13.104.2.7.2. [id number] [facility] 2023-07-06 01:48:41 0801-31-90L10:48:41Formatting of this no te might be different from the original.Patient noted to have saturated clothes in urine. Patient clothes removed and placed in patient belonging bag at this time. Patient placed in clean, dry gown and condom catheter placed for urine sample collection. Patient pending urine sample collection and dispo at this time.Dr. Batista at bedside, placed on 2L NC at this time, per Dr. Batista. 10693-5Zoksennrn department ZtruZV4284-13-57H05:50:42[facility] NoteTXT1.2.840.530295.1.13.104.2.7.2.306854| [id number] for patient kgtm23313-2KwphDFLXDURAFFZQwgrtrqqi C-CDA narrative [id number] BDUMFQLFIXQAJB2327-73-15G91:50:421.2.840.114 350.1.72.3.15|1.2.840.093923.1.13.104.2.7.2. [id number] [facility] 2023-07-06 01:29:34 4267-46-26E71:29:34Formatting of this no te might be different from the original.Dr. Batista notified of patient GCS. 98965-4Uoudkgxdz department RsryUX5170-53-03T50:29:46[facility] NoteTXT1.2.840.848996.1.13.104.2.7.2.754633| [id number] for patient grmt42870-6TvifCCURFEIHYJCFizhpawpg C-CDA narrative [id number] GROUP HE[facility] COOPERATIVE CENTRAL HOSPITALKDANPWZYDTCHDD1423-24-68J75:29:461.2.840.114 350.1.72.3.15|1.2.840.763918.1.13.104.2.7.2. 727879_[id number] [facility] 2023-07-06 01:23:09 7006-29-68Z67:23:09Formatting of this no te might be different from the original.RT notified of ABG 99996-2Qmazraedr department PwweJT5883-42-56O16:23:20[facility] NoteTXT1.2.840.835467.1.13.104.2.7.2.030001| [id number] for patient ihlw78467-6NvznCRSDBIUKUQHRxewdnrqv C-CDA narrative Aras[id number] [facility] CO[facility] CENTRAL HOSPITALFHNFQNJRYHQLAT4428-65-50O48:23:201.2.840.114 350.1.72.3.15|1.2.840.846123.1.13.104.2.7.2. 727879_[id number] [facility] 2023-07-06 01:17:00 4843-19-98Z06:17:00Formatting of this no te might be different from the original.Dr. Batista and Neuro at bedside at this time. 91770-3Qugncexll department EieuIT7468-63-03E70:17:09[facility] NoteTXT1.2.840.572519.1.13.104.2.7.2.046738| [id number] for patient nixm12917-9SnrjEPSDKQORDRRJlmaepsnd C-CDA narrative [id number] GROUP HE[facility] COOPERATIVE CENTRAL HOSPITALTIAXGGTVODJXEJ2180-06-05G51:17:091.2.840.114 350.1.72.3.15|1.2.840.068970.1.13.104.2.7.2. 727879_[id number] [facility] 2023-07-06 00:46:31 5476-49-03J53:46:31Formatting of this no te might be different from the original.[place] to [place]. 37[address]-4Ltnxogkiu department ReigZH9896-70-00J28:53:39[facility] department NoteTXT1.2.840.199869.1.13.104.2.7.2.398708| [id number] for patient vpqq99828-7CuowWBINRRSTMDAQbuutcrqp C-CDA narrative textUT52 [address] StreetXwm[id number] UJWEGUYJKXWHOW3538-91-13O98:53:391.2.840.114 350.1.72.3.15|1.2.840.487026.1.13.104.2.7.2. [id number] [facility] 2023-07-06 00:40:00 5759-23-29Z64:40:00Formatting of this no te is different from the original.[facility] Emergency Department NotePatient Name: Bright SalazarDaranda of : 1965 58 year old maleTreatment Room: [address] [place], [place] [address]Medical Record Number: [id number] Care Physician: PATIENT DOES NOT HAVE A PCPPatient Escorted by: Self [9]Mode of Arrival: EMS - [facility] 2 [92]EMS Treatment Prior to ED Arrival:SUPERVISOR TYPE DISK QUALITY CONTROL treatment: Saline lockTravel and Exposure Screening:SymptomsDoes patient have any of these symptoms?: (not recorded)Exposure ScreeningHas patient had contact with someone with a communicable disease in the last month?: (not recorded)Diseases exposed to:: (not recorded)Is Patient ?: (not recorded)Exposure Date: (not recorded)Chief Complaint:Chief ComplaintPatient presents withSTROKEHistory of Present Illness:58 y.o. male with h/o CVA, CAD/CABG, now found by friend lying on ground with confusion and lethargy. EMS with stroke activation upon arrival to ED. Patient arrives with snoring respirations and decreased responsiveness, except to painful stimulus.Past Medical History/Immunizations:No past medical history on file.Tetanus received in last 5 years: Unable to assessChildhood immunizations: Other (comment)Allergies:No Known AllergiesPast Social History:Tobacco UseEvery Day; Types: CigarettesPassive Exposure: CurrentSmokeless Tobacco: Never used smokeless tobacco.Past Surgical History:No past surgical history on file.Review of Systems:Review of SystemsUnable to perform ROS: Mental status changePhysical Exam:ED Triage Vitals [07/06/23 0040]Weight 93.4 kg (206 lb)Actual or estimated Estimated by healthcare providerHeightBP (!) 151/82Pulse 78Resp 24Temp 36.6 ?C (97.9 ?F)Temp source AxillarySpO2 94 %Measured on Room airPhysical ExamVitals and nursing note reviewed.Constitutional:General: He is not in acute distress.Comments: Snoring respirations, responsive to painful stimulus, no focal deficitsHENT:Head: Normocephalic and atraumatic.Mouth/Throat:Mouth: Mucous membranes are dry.Eyes:Pupils: Pupils are equal, round, and reactive to light.Cardiovascular:Rate and Rhythm: Normal rate.Pulses: Normal pulses.Pulmonary:Effort: Pulmonary effort is normal. No respiratory distress.Abdominal:Palpations: Abdomen is soft.Musculoskeletal:General: Normal range of motion.Skin:General: Skin is dry.Capillary Refill: Capillary refill takes less than 2 seconds.Neurological:Mental Status: He is lethargic and disoriented.GCS: GCS eye subscore is 3. GCS verbal subscore is 4. GCS motor subscore is 5.Cranial Nerves: Cranial nerves 2-12 are intact.Motor: Atrophy present. No abnormal muscle tone, seizure activity or pronator drift.Coordination: Coordination abnormal.Radiology:CT ACUTE STROKE ANGIOGRAM HEADPreliminary ResultCT STROKE ANGIOGRAM NECK, CT STROKE ANGIOGRAM HEADHISTORY: 58 years old Male with Neuro deficit, acute, stroke suspectedRad:please obtain POCT creatinine prior to CTA head/neckTECHNIQUE: CTA of the head and neck with coronal, sagittal reformats, andMIPS reconstruction was performed.COMPARISON: CT Head performed same day.FINDINGS:CTA HEAD:The PICA origin is visualized bilaterally. The basilar artery is normal incaliber. A fenestration is suspected in the proximal basilar artery. Thesuperior cerebellar arteries are unremarkable. origin of the leftPCA. Small left posterior communicating artery. The posterior cerebralarteries are patent.The distal cervical and petrous internal carotid arteries areunremarkable.Atherosclerotic disease in the bilateral carotid siphons results escnau-cg-oohqbfzp stenosis bilaterally. The anterior cerebral arteries areunremarkable. An anterior communicating artery is visualized. The middlecerebral arteries are unremarkable.CTA NECK:Standard 3 vessel aortic arch. The ostia of the great neck vessels arefreeof significant stenosis.The innominate and subclavian arteries are patent with normal course.The right common carotid artery, carotid bulb and cervical internalcarotidartery are patent with atherosclerotic disease in the right carotid bulband proximal cervical ICA causing no more than mild stenosis.On the left, calcified and noncalcified plaque in the left carotid bulbextending into the proximal cervical ICA results in approximately 40-50%stenosis.The vertebral arteries originate normally from the subclavian arteries andare patent along their course.Hyperdense masses in the right parotid lobe measuring 2.4 x 1.8 cm in 1.5x1.4 cm respectively.IMPRESSIONNo aneurysm or high-grade stenosis of the intracranial or extracranialvessels.Atherosclerotic disease in the left carotid bulb results in 40-50%stenosisof the proximal left cervical ICA.Hyperdense masses in the right parotid gland 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 The basilar artery is normal incaliber. A fenestration is suspected in the proximal basilar artery. Thesuperior cerebellar arteries are unremarkable. origin of the leftPCA. Small left posterior communicating artery. The posterior cerebralarteries are patent.The distal cervical and petrous internal carotid arteries areunremarkable.Atherosclerotic disease in the bilateral carotid siphons results nmkvoo-dg-cmzdpshl stenosis bilaterally. The anterior cerebral arteries areunremarkable. An anterior communicating artery is visualized. The middlecerebral arteries are unremarkable.CTA NECK:Standard 3 vessel aortic arch. The ostia of the great neck vessels arefreeof significant stenosis.The innominate and subclavian arteries are patent with normal course.The right common carotid artery, carotid bulb and cervical internalcarotidartery are patent with atherosclerotic disease in the right carotid bulband proximal cervical ICA causing no more than mild stenosis.On the left, calcified and noncalcified plaque in the left carotid bulbextending into the proximal cervical ICA results in approximately 40-50%stenosis.The vertebral arteries originate normally from the subclavian arteries andare patent along their course.Hyperdense masses in the right parotid lobe measuring 2.4 x 1.8 cm in 1.5x1.4 cm respectively.IMPRESSIONNo aneurysm or high-grade stenosis of the intracranial or extracranialvessels.Atherosclerotic disease in the left carotid bulb results in 40-50%stenosisof the proximal left cervical ICA.Hyperdense masses in the right parotid gland 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 The shaw-white matter differentiation is otherwise preserved.The cerebral sulci are normal in caliber and configuration. Nohydrocephalus, midline shift or pathological extra-axial fluid collectionis present. The basal cisterns are unremarkable.The mastoid air cells and paranasal air sinuses are clear. The calvariumand central skull base are unremarkable.IMPRESSIONLarge right parieto-occipital encephalomalacia with overlying thinhyperdensity suggestive of either cortical laminar necrosis or smallpetechial hemorrhages.No acute appearing hypodensity or mass effect.Findings were discussed with Dr Batista at 1.11 AM on 07/06/2023.2Preliminary Report Dictated by Resident: Mason Ellington Results:Lab ResultsPOCT GLUCOSE(AGE >30DAYS) - AbnormalResult Value Ref RangePOCT Glu (age>30days) 352 (*) 70 - 110 mg/dLCBC WITHOUT DIFF - AbnormalWBC 8.45 4.20 - 10.70 10*3/?LRBC 5.92 (*) 4.26 - 5.52 10*6/?LHGB 17.4 (*) 12.2 - 16.4 g/dLHCT 50.0 (*) 38.4 - 49.3 %MCH 29.4 26.1 - 32.7 pgMCV 84.5 81.7 - 95.6 fLMCHC 34.8 31.2 - 35.0 g/dLPLT 251 150 - 328 10*3/?LMPV 10.7 9.8 - 13.0 fLRDW-CV 12.7 12.1 - 15.4 %RDW-SD 38.9 38.5 - 51.6 fLNRBC x10^3 <0.01 10*3/?LNRBC/100 WBC 0.0 0.0 - 10.0 /100 WBCsIPF %BASIC METABOLIC PANEL (NA, K, CL, CO2, GLUCOSE, BUN, CREATININE, CA) - AbnormalNA 137 135 - 145 mmol/LK 5.2 (*) 3.5 - 5.0 mmol/LCL 98 98 - 108 mmol/LCO2 TOTAL 29 23 - 31 mmol/LAGAP 10 2 - 16BUN 23 7 - 23 mg/dLGLUCOSE 353 (*) 70 - 110 mg/dLCREATININE 0.65 0.60 - 1.25 mg/dLCALCIUM 10.1 8.6 - 10.6 mg/dLeGFR 109.2 mL/min/1.19s2ADRDUXHGGQ - AbnormalAPPEARANCE Clear ClearCOLOR Yellow YellowPH 5.0 4.8 - 8.0SP GRAVITY 1.052 (*) 1.003 - 1.030GLU U QUAL 500 mg/dL (*) NormalBLOOD Negative NegativeKETONES Negative NegativePROTEIN 100 mg/dL (*) NegativeUROBILIN Normal NormalBILIRUBIN Negative NegativeNITRITE Negative NegativeLEUK EMELYN Negative NegativeRBC/HPF 3 0 - 3 HPFWBC/HPF 1 0 - 5 HPFBACTERIA Negative NegativeSQ EPITH <1 <=2 HPFACUTE CARE ARTERIAL BLOOD GAS - AbnormalPH 7.38 7.35 - 7.45PCO2 43 35 - 45 mmHgPO2 67 (*) 80 - 100 mmHgHCO3 25 22 - 26 mEq/LBE -0.7 -3.0 - 3.0 mEq/LAMMONIA, PLASMA - AbnormalAMMONIA <9 (*) 9 - 33 umol/LPROTHROMBIN TIME / INR - NormalPROTIME PATIENT 10.5 10.1 - 12.6 SecondsINR 0.9ACTIVATED PARTIAL THRMPLAS CECELIA - NormalAPTT Patient 31 26 - 36 SecondsTROPONIN I - NormalTROPONIN I 0.012 <=0.034 ng/mLSALICYLATESALICYLATE 24 mg/LETHANOLURINE DRUG (IMMUNOASSAY) - COMPREHENSIVE DRUG SCREENAC PANEL 20 + LACTIC ACIDMRSA / MSSA SCREEN BY PCR, NARESACUTE CARE ARTERIAL BLOOD GASEXTRA TUBE URINE CULTUREEKG:If EKG completed, see Procedure Note.Orders and Treatments:Orders Placed This EncounterProceduresIntubationCT ACUTE STROKE HEAD WO CONTRASTCT ACUTE STROKE ANGIOGRAM HEADCT ACUTE STROKE ANGIOGRAM NECKXR CHEST 1 VWXR ABDOMEN 1 VWPOCT Glucose (Age >30 Days) - Code StrokeProthrombin Time / INR - Code StrokeaPTT - Code StrokeCBC without Diff - Code StrokeTroponin I - Code StrokeBasic Metabolic Panel (NA, K, CL, CO2, Glucose, BUN, Creatinine, CA) - Code StrokeUrinalysisEthanolUrine Drug (Immunoassay) - Comprehensive Drug ScreenAcute Care Arterial Blood Gas.AC Panel 20 + Lactic AcidMRSA / MSSA Screen by PCR, NaresPOCT Glucose (Age >30 Days)AC Panel 20 + Lactic AcidAmmonia, PlasmaSalicylateAcute Care Arterial Blood Gas. 30 minutes post ventilation.Acute Care Arterial Blood Gas.O2 Nasal CannulaDaily Spontaneous Breathing Trial (SBT)Ventilator Adult PRVC / AC (APVCMV)Orders Placed This EncounterMedicationsNaCl 0.9% (NS) injection 5 mLiopamidol (ISOVUE 370-500 mL) injection 80 mLNaCl 0.9% (NS) bolus infusion 1,000 mLpropofoL IV infusionmidazolam (VERSED) injection 5 mgsuccinylcholine (QUELICIN) injection 100 mgipratropium-albuteroL (DUONEB) 0.5 mg-3 mg(2.5 mg base)/3 mL nebulizer solution 3 mLmethylPREDNISolone sod succ (SOLU-MEDROL (PF)) injection 60 mginsulin detemir U-100 (LEVEMIR U-100 INSULIN) injection 10 Unitsdextrose 50 % in water (D50W) injection 25 mLglucagon (GLUCAGEN DIAGNOSTIC KIT) injection 1 mgSliding Scale Insulin-Regularheparin (porcine) injection 5,000 Unitspantoprazole (PROTONIX) injection 40 mgchlorhexidine (PERIDEX) 0.12 % mouthwash 15 mLampicillin-sulbactam (UNASYN) 3 g in NaCl 0.9% (NS) 100 mL MINI-BAGFirst Provider Eval:ED EventsDate/Time Event User Bnnaapkv78/28/2444 Medical Screening Begins EDWARD BATISTA MD --07/06/2344 First Provider Evaluation EDWARD BATISTA MD --ED COURSEDiagnosis/Impression as of 07/06/23 0330Altered behaviorProcedures:ProceduresMDM:Medical Decision MakingAmount and/or Complexity of Data ReviewedLabs: ordered.Radiology: ordered.RiskPrescription drug management.Parenteral controlled substances.Decision regarding hospitalization.Flowsheet Documentation:Stroke Activation - Date: 07/06/23Stroke Activation - Time: 1228Physician arrival at bedside - Date: 07/06/23Physician arrival at bedside - Time: 1235CT-Head without contrast read by Neurology: 0100 (pt agitated)Last known well - Date: 07/06/23Last known well - Time: 1130LOC: 0 Alert: Keenly ResponsiveLOC QUESTIONS: 0 Answers Both Questions CorrectlyLOC COMMANDS: 0 Performs Both Tasks CorrectlyBEST GAZE: 0 NormalVISUAL: 0 No Visual LossFACIAL PALSY: 0 NormalMOTOR ARM-LEFT: 0 No DriftMOTOR ARM-RIGHT: 0 No DriftMOTOR LEG-LEFT: 0 No DriftMOTOR LEG-RIGHT: 0 No DriftLIMB ATAXIA: 0 AbsentSENSORY: 0 NormalBEST LANGUAGE: 0 No AphasiaDYSARTHRIA: 0 NormalEXTINCTION AND INATTENTION (FORMERLY NEGLECT): 0 No AbnormaltySTROKE SCALE TOTAL SCORE: 0NIH STROKE SCALELOC: 0 Alert: Keenly ResponsiveLOC QUESTIONS: 0 Answers Both Questions CorrectlyLOC COMMANDS: 0 Performs Both Tasks CorrectlyBEST GAZE: 0 NormalVISUAL: 0 No Visual LossFACIAL PALSY: 0 NormalMOTOR ARM-LEFT: 0 No DriftMOTOR ARM-RIGHT: 0 No DriftMOTOR LEG-LEFT: 0 No DriftMOTOR LEG-RIGHT: 0 No DriftLIMB ATAXIA: 0 AbsentSENSORY: 0 NormalBEST LANGUAGE: 0 No AphasiaDYSARTHRIA: 0 NormalEXTINCTION AND INATTENTION (FORMERLY NEGLECT): 0 No AbnormaltySTROKE SCALE INTERVAL: OtherSTROKE SCALE TOTAL SCORE: 0STROKE SCALE INTERVAL: OtherSTROKE SCALE TOTAL SCORE: 0Did the patient score a "0" on the NIH stroke scale within 180 minutes of their time last known well?: NoWas IV thrombolytic therapy given?: Laine no IV thrombolytic therapy initiated: NIH equals 0;Non- disabilingDid patient and/or family agree to IV Thrombolytic?: NoICH/SAH: NoWas Endovascular Intervention Performed?: Laine patient is not a candidate for endovascular intervention: Imaging: no large vessel occlusion;NIH less than or equal to 6Scoring Tools:No data recordedA) Metabolic Encephalopathy--likely related to Ambien/Flexeril overdosage, r/out CVADisposition/Condition: RICHARD for airway protection, ABG, Admit-ICU, serial exam and labs. IV abx's, IVF's, BG controlED DispositionED DispositionAdmit - ICUConditionStableComment--Discharge Medications:Current Discharge Medication ListSTOP taking these medicationsclopidogreL 75 mg tablet Comments:Reason for Stopping:gabapentin 300 mg capsule Comments:Reason for Stopping:Insulin Detemir (LEVEMIR FLEXPEN) 100 unit/mL (3 mL) injection Comments:Reason for Stopping:insulin regular human (NOVOLIN R REGULAR U100 INSULIN) 100 unit/mL injection Comments:Reason for Stopping:metoprolol tartrate (LOPRESSOR) 50 mg tablet Comments:Reason for Stopping:silver sulfADIAZINE (SILVADENE) 1 % cream Comments:Reason for Stopping:QUEtiapine 50 mg tablet Comments:Reason for Stopping:Electronically signed by:Edward Batista MD07/06/23 0330 18148-1Nsccfyblp Emergency department ZauvXJ1953-51-22M68:30:38Physician Emergency department NoteTXT1.2.840.314700.1.13.104.2.7.2.390705| [id number] for patient qrfb43762-0Resgnxtcn department NoteLNNARRATIVEFormatted C-CDA narrative textEMCARE EMERGENCY PHYSICIAN STAFFEMCARE EMERGENCY PHYSICIAN STAFFUT56 Dean [id number] [facility]OM[facility] HOSPITALEUBAXVQOKDTFRY1238-22-69O22:30:381.2.840.114 350.1.72.3.15|1.2.840.637267.1.13.104.2.7.2. [id number] [facility] 2023-07-06 00:40:00 1749-23-53U22:40:00Formatting of this no te might be different from the original.Bright Salazar is a 58 year old male 79869-7Imuuyygqr department Triage dwbkUD8218-91-64F86:58:20Emergency department Triage noteTXT1.2.840.106013.1.13.104.2.7.2.913102| [id number] for patient kbdt82860-7Znbfnzgel department NoteLNNARRATIVEFormatted C-CDA narrative text[id number] INMEJJURMAUCYV2815-36-94S77:58:201.2.840.114 350.1.72.3.15|1.2.840.529194.1.13.104.2.7.2. [id number] [facility] 2023-04-29 20:47:00 [id number]P31 oU/O eJH1XT10/Ia6UQi1VxNTJniCTI/HY0UV8029-52-05H4 0:47:[id number] [address] PATIENT NAME: BRIGHT SALAZAR ADMIT DATE: 04/19/23ACCOUNT NO: [id number] ROOM NO: [facility] AGE: 57 REPORT TYPE: 360 - QUERY RESPONSE DOCUMENT SEX: M ADMITTING PHYSICIAN:Kiel Gardnier MD ATTENDING PHYSICIAN:Kiel Gardiner MD Provider Query QUERY TEXT: POA Indicator 360MD Query related questions should be directed to: [facility] Coding Query Hotline Please indicate if the diagnosis of SEPSIS was present on admission? The patient's Clinical Indicators include:QUERY RESPONSE:The patient has sepsis. - 360 - QUERY RESPONSE DOCUMENT 04/29/2023 (8)Back abscess with some necrosis - General Surgery Progress Note 04/21/2023 (1)Mild pancreatitis - Hospitalist History and Physical 04/20/2023 (1)WBC (4.1 - 12.1 K/mm3) 12.8 H - ED PHYSICIAN RECORD 04/19/2023 (1)Pulse Ox 98 04/19 1659Pulse 103 04/19 1659 - ED PHYSICIAN RECORD 04/19/2023 (8)Blood pressure: 139/63 - CMI Monitor 04/19/2023 - 09:30 PMRespiratory rate: 30 - CMI Monitor 04/19/2023 - 05:34 PMSPO2 %: 100 - CMI Monitor 04/19/2023 - 05:31 PMVancomycin 1,750 mg/500 mLcefTRIAXone 1 GM InjOptions provided:-- Yes-- No-- W-- Other - I will add my own diagnosis-- Dismiss - Not applicable / Not valid-- Dismiss - Clinically unable to determine / Unknown-- Assign to another provider QUERY RESPONSE: Yes- The condition was present at the time of inpatient admission. Query created by: MARY VELASQUEZ on 04/29/2023 7:32 AM at 2047 PATIENT NAME: BRIGHT SALZAAR noteB.[id number] for patient tekbWKASZZWDIKIJIP6650-67-41E86:48:15 [facility] 2023-04-29 06:55:00 [id number]+3ErcJYxBV2U7 GxSe Q/sSuqB2d5+nXeERnSOt0EC3WXT2rn6t9364-81-24Y4 6:55:073739-[address] [place] [address] PATIENT NAME: BRIGHT SALAZAR ADMIT DATE: 04/19/23ACCOUNT NO: [id number] ROOM NO: [facility] AGE: 57 REPORT TYPE: 360 - QUERY RESPONSE DOCUMENT SEX: M ADMITTING PHYSICIAN:Kiel Gardiner MD ATTENDING PHYSICIAN:Kiel Gardiner MD Provider Query QUERY TEXT: Clarification Infectious Status 360MD Query related questions should be directed to:[facility] coding query Hotline Based on your clinical judgment, please clarify the condition(s) that represent(s) the clinical indicators listed below. The following definitions are provided based on industry literature and in collaboration with [facility] Clinical Services Group for your reference only:--Localized Infection - An infection that affects only one organ or body part (e.g., UTI, Pneumonia)--Bacteremia - Nonspecific laboratory finding of bacteria in the blood--Sepsis - A presumed or confirmed systemic response to infectious process with >2 clinical indicators such as: Temperature >38.3C or <36.0C, tachycardia, > 20 respiratory rate, WBC >12,000 or < 4,000 or > 10% bands--Severe Sepsis - Sepsis with additional clinical indicators such as Organ failure with any of the following: systolic BP < 90 or MAP < 65 or SBP decrease more 40 mm Hg from last recorded SBP considered normal for patient, Creatinine > 2.0, urine output < 0.5 ml/kg/hour for 2 hours, Bilirubin > 2 mg/dL, platelet count < 100,000, INR > 1.5, PTT > 60 sec, lactate > 2 mmol/L--Septic Shock - Severe Sepsis with Lactic acid > 4 mmol/L or persistent hypotension The patient's Clinical Indicators include:Pulse 103 11/11 1659-ED records 04/19/2023Resp 30 04/19 1849-ED records 04/19/2023WBC (4.1 - 12.1 K/mm3) 12.8 H-ED records 04/19/2023ack abscess-H ad P 04/20/2023Mild pancreatitis-H and P 04/20/2023efTRIAXone 1 GM Inj-MAROptions provided: -- Sepsis, Please identify the causative organism if known.-- Severe Sepsis, Please identify the causative organism if known.-- Severe Sepsis with septic shock, Please identify the causative organism if known.-- Localized infection, Please specify the infection and causative organism if known.-- Other - I will add my own diagnosis-- Dismiss - Not applicable / Not valid-- Dismiss - Clinically unable to determine / Unknown-- Assign to another provider QUERY RESPONSE: The patient has sepsis. Query created by: Rober Slater on 04/25/2023 4:05 AM at 0655 PATIENT NAME: BRIGHT SALAZAR noteB.[id number] for patient zacoJPECIJPBVJFWZX1955-47-45J15:56:[address] [facility] 2023-04-29 06:55:00 [id number]/W++GxQW onh5 pNUUkEQzr9UDKYR1Egh2npWLpGPVcvYr3973-82-47Z2 6:55:[id number] [address] PATIENT NAME: BRIGHT SALAZAR ADMIT DATE: 04/19/23ACCOUNT NO: [id number] ROOM NO: B.345 AGE: 57 REPORT TYPE: 360 - QUERY RESPONSE DOCUMENT SEX: M ADMITTING PHYSICIAN:Kiel Gardiner MD ATTENDING PHYSICIAN:Kiel Gardiner MD Provider Query QUERY TEXT: Clarification Infectious Status POA 360MD Query related questions should be directed to: [facility] Coding Query Hotline Based on your clinical judgment, please clarify the condition(s) that represent(s) the clinical indicators listed below and if the condition(s) are present on admission (POA). The following definitions are provided based on industry literature and in collaboration with [facility] Clinical Services Group for your reference only:--Localized Infection - An infection that affects only one organ or body part (e.g., UTI, Pneumonia)--Bacteremia - Nonspecific laboratory finding of bacteria in the blood--Sepsis - A presumed or confirmed systemic response to infectious process with >2 clinical indicators such as: Temperature >38.3C or <36.0C, tachycardia, > 20 respiratory rate, WBC >12,000 or < 4,000 or > 10% bands--Severe Sepsis - Sepsis with additional clinical indicators such as Organ failure with any of the following: systolic BP < 90 or MAP < 65 or SBP decrease more 40 mm Hg from last recorded SBP considered normal for patient, Creatinine > 2.0, urine output < 0.5 ml/kg/hour for 2 hours, Bilirubin > 2 mg/dL, platelet count < 100,000, INR > 1.5, PTT > 60 sec, lactate > 2 mmol/L--Septic Shock - Severe Sepsis with Lactic acid > 4 mmol/L or persistent hypotension The patient's Clinical Indicators include:Back abscess with some necrosis -General Surgery Progress Note 04/21/2023 (1)Mild pancreatitis - Hospitalist History and Physical 04/20/2023 (1)WBC (4.1 - 12.1 K/mm3) 12.8 H - ED PHYSICIAN RECORD 04/19/2023 (1) Pulse Ox 98 04/19 1659Pulse 103 04/19 1659 - ED PHYSICIAN RECORD 04/19/2023 (8)Blood pressure: 139/63 - CMI Monitor 04/19/2023 - 09:30 PMRespiratory rate: 30 - CMI Monitor 04/19/2023 - 05:34 PMSPO2 %: 100 - CMI Monitor 04/19/2023 - 05:31 PMVancomycin 1,750 mg/500 mLcefTRIAXone 1 GM InjOptions provided:-- Sepsis, Please specify POA status (i.e., Y=Yes, N=No, W=Unable to clinically determine) and causative organism if known.-- Severe Sepsis, Please specify POA status (i.e., Y=Yes, N=No, W=Unable to clinically determine) and causative organism if known.-- Severe Sepsis with septic shock, Please specify POA status (i.e., Y=Yes, N=No, W=Unable to clinically determine) and causative organism if known.-- Localized infection, Please specify the infection and POA status (i.e., Y=Yes, N=No, W=Unable to clinically determine).-- Other - I will add my own diagnosis-- Dismiss - Not applicable / Not valid-- Dismiss - Clinically unable to determine / Unknown-- Assign to another provider QUERY RESPONSE: The patient has sepsis. Query created by: MARY VELASQUEZ on 04/28/2023 11:07 AM at 0655 PATIENT NAME: BRIGHT SALAZAR noteB.[id number] for patient rkgoUJJSEWHDGCFIBR7477-17-94D28:56:[address] [facility] 2023-04-25 14:37:00 [id number]/CUfsMl5rDycsHMSIzVVa+t+fPk5 MzZk axUaitc+vfZIComgS+bsiPGol5TGOGIM2601-53-77Q0 4:37:[id number] [place], [place] [address] PATIENT NAME: BRIGHT SALAZAR ADMIT DATE: 04/19/23ACCOUNT NO: [id number] ROOM NO: B.345 AGE: 57 REPORT TYPE: PROGRESS NOTE SEX: M ADMITTING PHYSICIAN:Kiel Gardiner MD ATTENDING PHYSICIAN:Kiel Gardiner MD DATE: 04/25/2023 INFECTIOUS DISEASE FOLLOWUP SUBJECTIVE: Condition discussed earlier. Overall generally stable. General Surgery as indicated. No further debridement and what was done several days agowhen he presented. We have treated him with IV antibiotics and I have advised Dr. Pressley to discharge on doxycycline with outpatient followup. Otherwise, stable, the patient will return to the hospital if there is any significant change in condition. Otherwise, stable. Dictated By: Torie Baker MD Date Dictated: 04/25/2023 14:37:34Date Transcribed: 04/25/2023 15:06:29SYWhitney/Shannon #: [id number] ID: [id number] by Torie Baker MD On 04/29/2023 01:49:34 PM at 0149 PATIENT NAME: BRIGHT SALAZAR fxnh2287-72-09G29:06:00B.[id number] vailable for patient owzgPFDHACHCAATZWA5615-11-91L52:50:[address] [facility] 2023-04-25 09:51:00 [id number]fzTQ IBX+ eSSdFyiAP2tI5wjwNJ6Y2g+1pdaExPbG6129-69-45V8 9:51:00 [facility] Dis[facility] SummaryREPORT#:[id number] REPORT STATUS: SignedREPORT INITIALIZATION DATE:04/25/23 TIME: 950 PATIENT: BRIGHT SALAZAR UNIT #: [id number]#: [id number] [facility] AGE: 57 SEX: M ATTEND: Kiel Gardiner AUTHOR: Arpit Pressley MDREPT SERVICE DT/TIME: 04/25/23950* ALL edits or amendments must be made on the electronic/computer document * General InformationDischarge date: 04/25/23Discharge diagnosis:Back abscessHospital course:Please see assessment plan from prior progress note Patient admitted for back abscess, patient status post IND. Patient followed bysurgery while in-house. Patient with good response to wound care. Patient cleared for surgery no further intervention planned. Patient given good outpatient wound care plan by wound care nurse. Case management discussed with daughter who patient lives with, she is comfortable with simple dressing changes. Patient complained of abdominal pain admission, tolerating diet no nausea vomiting diarrhea. Patient CT AP and abdominal x-ray unremarkable. Patient with pain seeking tendencies, requesting IV morphine instead of p.o. pain meds, however appears to be in no acute distress. Patient's exam unremarkable, not tachycardic. Offered Bentyl to patient on discharge. Patientagreeable discharge plan, agrees to medication compliance including finishing antibiotic regimen. Patient agrees to close follow-up with PCP.Pt. condition on discharge: improved Free Text DxA P NotesFree text DxA P notes:Back abscessS/p I DContinue antibioticsCulture Chest painAspirin beta-blockerCardiac enzymes Diabetes mellitus with hyperglycemiaContinue home medicationInsulin sliding scale HypertensionOptimize control PVDS/p left BKAModify risk factors DVT prophylaxisLovenoxAdvanced directive discussed 3Patient seen evaluated on this date. Please see chronological assessment plan by hospital service above.Patient status post I D for back abscess, appreciate surgery, will follow-up anyrecommendations pertaining repeat intervention. We will follow-up wound care recommendations. Patient tolerating wound care. Discussed at [facility], patient apparently does not have placement options or good home health options due to his insurance. We will reach out to PCP if they can do wound care at office.Discussed plan of care with patient, they were appreciative. Total visit time 58 minutes 04/23/2023atient seen and evaluated on this date. Please see chronological assessment plan by hospital service above.Patient continues to do well clinically on IV antibiotics and wound care. Appreciate surgery following, no plan currently for repeat intervention. Patient eval by wound care nurse will follow-up recommendations. Per case management patient does not have home health due to his insurance. Per PCP theycan do simple wound changes we will follow-up needs per wound care assessment. Total visit time 57 minutes 04/24/2023atient seen and evaluated on this date. Please see chronological assessment plan by hospital service above.Patient clinically improving, per ID plan to switch to PO in [facility] discussed with Daughter whom patient is going to live with, she works with Home health, she is confident to perform Wound careDC planning soon Total visit time 56 min Med Rec Med RecDischarge meds:Continue taking these medications:ASPIRIN (ASPIRIN) 81 MG TAB.CHEW 81 MILLIGRAM ORAL DAILY. Qty = 100 CLOPIDOGREL (PLAVIX) 75 MG TAB 75 MILLIGRAM ORAL DAILY. Qty = 30 METOPROLOL SUCC XL (TOPROL XL) 50 MG TAB.SA 50 MILLIGRAM ORAL DAILY. Days = 30 Qty = 30 ZOLPIDEM (AMBIEN) 10 MG TAB 10 MILLIGRAM ORAL AT BEDTIME NEEDED. as needed for SLEEP Start taking the following new medications:GABAPENTIN (NEURONTIN) 300 MG CAP 300 MILLIGRAM ORAL THREE TIMES A DAY. Qty = 90 No Refills INSULIN NPH HUMAN RECOM (HumuLIN N) 100 UNIT/ML VIAL 15 UNIT SUBCUTANEOUS TWICE DAILY BEFORE MEALS. Qty = 10 No Refills COLLAGENASE (SANTYL OINT) 250 UNIT/GRAM OINTMENT 1 APPLIC TOPICAL DAILY. Qty = 30 No Refills DOXYCYCLINE HYCLATE (VIBRA-TAB) 100 MG TAB 100 MILLIGRAM ORAL EVERY 12 HOURS. Qty = 24 No Refills DICYCLOMINE (BENTYL) 10 MG CAP 10 MILLIGRAM ORAL EVERY 6 HOURS NEEDED. as needed for ABDOMINAL PAIN/CRAMPING Qty = 30 No Refills ObjectiveVS/I OLast Documented: Result Date Time Pulse Ox 98 04/25 1156 B/P 151/77 04/25 1156 B/P Mean 101.8 04/25 1156 O2 Delivery Room air 04/25 1156 Temp 97.9 04/25 1156 Pulse 75 04/25 1156 Resp 17 04/25 1156 Cardiovascular: normal heart soundsRespiratory: decreased breath soundsAbdomen: softExtremities: L BKANeuro/RN MATERNITY: alert ResultsResults: labs reviewed, vital signs reviewed Discharge Instructions PCPPCP follow-up:PCP: Tony Adams MD Discharge to: Home/Self CareAdditional Discharge Routines: PCP Follow-UpDiet: Resume Home Diet/Feeds, DiabeticActivity: Resume Normal ActivityDischarge management: greater than 30 mins Follow-up AppointmentsPCP follow-up: PCP: Tony Adams MD PCP follow up timeframe: In 5 days at 1557 [facility] #:[id number] OF REPORTDSDischarge spjtveg8059-40-68U61:51:00B.[id number] 9AVAvailable for patient bmetSINSSVEBROAPUI8535-26-17H11:57:[address] [facility] 2023-04-24 10:52:00 [id number]/K1B/eTRy6dW7N5F1IV0ayA M78g MzsBIH78O5tbUVC7fCHJhTXTpHXqrGXo3758-69-91H9 0:52:746025-[address] [address] PATIENT NAME: BRIGHT SALAZAR ADMIT DATE: 04/19/23ACCOUNT NO: [id number] ROOM NO: B.345 AGE: 57 REPORT TYPE: PROGRESS NOTE SEX: M ADMITTING PHYSICIAN:Kiel Gardiner MD ATTENDING PHYSICIAN:Kiel Gardiner MD DATE: 04/24/2023 INFECTIOUS DISEASE PROGRESS NOTE SUBJECTIVE: He is a gentleman with a small back abscess, had an I and D done, has been followed regularly by general surgery and they do not feel there is anyneed for intervention other than that. The patient is stable. He still has someinduration. Overall, generally fair as I had mentioned. If no intervention is contemplated, the patient could be discharged on oral doxycycline for 10-12 days more. Otherwise, stable. Dictated By: Torie Baker MD Date Dictated: 04/24/2023 10:52:06Date Transcribed: 04/24/2023 11:00:04ISIS/Alina #: [id number] ID: [id number] by Torie Baker MD On 04/25/2023 02:51:44 PM at 0251 PATIENT NAME: BRIGHT SALAZAR owtl3370-94-01M49:00:00B.[id number] vailable for patient ttpzEFCABEBZWCOVGB3864-78-58B02:52:[address] [facility] 2023-04-24 09:45:00 [id number]+zK1u3Wv7+t83Fshy 3lYO 7/t7fEz+noSX5rt1NSp+CL75C7HTdUVc0704-86-77T1 9:45:00 [facility] ([facility])Hospitalist Progress NoteREPORT#:[id number] REPORT STATUS: SignedREPORT INITIALIZATION DATE:04/24/23 TIME: 944 PATIENT: BRIGHT SALAZAR UNIT #: [id number]#: [id number] [facility] [birth year] AGE: 57 SEX: M ATTEND: Kiel Gardiner MDADM AUTHOR: Arpit Pressley MDREPT SERVICE DT/TIME: 04/24/23944* ALL edits or amendments must be made on the electronic/computer document * SubjectiveChief complaint:Chest painHPI:This is a 57-year-old gentleman with past medical history of diabetes peripheralvascular disease left BKA he was brought into the ER because of chest pain rightflank pain and abdominal pain no nausea no vomiting no diarrhea no hematemesis melena or blood in stool denies cough congestion denies loss of consciousness seizure activity he was found to have abscess area at the mid back which was drained by ER MD started on antibiotics and was transferred to the floor for further management Free Text Subj NotesFree Text Subj Notes:no acute complaints Objective GeneralVS/I O:Vital Signs: Date Time Temp Pulse Resp B/P B/P Pulse O2 O2 Flow FiO2 Mean Ox Delivery Rate 04/24 1239 97.5 74 16 142/83 102.8 96 04/24 0759 97.7 74 16 164/84 110.3 96 04/24 0510 97.7 74 13 156/80 105.2 94 Room air 04/24 0004 97.9 75 13 158/83 108.2 96 Room air 04/23 2005 97.9 73 14 143/88 106.0 96 Room air 04/23 1703 97.7 75 16 141/74 96.5 97 Room air 24 hour I O ending at 0700: 04/24 0700 04/23 1900 Intake Total 250 Output Total 300 500 Balance -50 -500 Intake, Oral 250 Output, Urine 300 500 PATIENT WEIGHT: Weight (lb): 191Weight (oz): 12.83Weight (kg): 87.000 Medications:Active Meds + DC'd Last 24 HrsOxycodone HCl (OXYIR 5MG) 5 MG Q6H PRN PRN PO Collagenase (SANTYL 30 GM OINTMENT) 1 APPLIC DAILY TOPICAL Sodium Chloride (SODIUM CHLORIDE SYRINGE 10ML) 0 ASDIR IV Insulin Human NPH (HumuLIN N) 10 UNIT BID AC SUBQ Enoxaparin Sodium (LOVENOX) 40 MG DAILY SUBQ Aspirin (ASPIRIN) 81 MG DAILY PO Clopidogrel Bisulfate (PLAVIX) 75 MG DAILY PO Metoprolol Succinate (TOPROL XL) 50 MG DAILY PO Gabapentin (NEURONTIN) 300 MG TID PO Zolpidem Tartrate (AMBIEN) 10 MG BEDTIME PRN PRN PO Dextrose/Water (DEXTROSE 50%-WATER) 25 ML ASDIR PRN IV (CKD) Glucagon (GLUCAGON) 1 MG ASDIR PRN IM Glucose Polymer (GLUTOSE) 15 GM ASDIR PRN PO Ceftriaxone Sodium (ROCEPHIN) 1 GM DAILY IV Sterile Water (STERILE WATER) 10 MLVancomycin/Sodium Chloride (Vancomycin 1,500 mg/500 mL) 500 ML Q12H IV Miscellaneous Information (VANCOMYCIN PHARMACY TO DOSE) 1 EACH ASDIR IV (CKD) Acetaminophen (TYLENOL) 650 MG Q4H PRN PRN PO Acetaminophen (TYLENOL) 650 MG Q6H PRN PRN RECTAL Al Hydrox/Mg Hydrox/Simethicone (MAALOX PLUS) 30 ML Q4H PRN PRN PO Albuterol/Ipratropium (DUONEB 2.5-0.5MG/3ML SOLN) 3 ML RTQ4H PRN PRN NEB Bisacodyl (DULCOLAX) 10 MG DAILY PRN PRN PO Calcium Carbonate (TUMS) 1,000 MG DAILY PRN PRN PO Clonidine HCl (CATAPRES) 0.1 MG Q6H PRN PRN PO Guaifenesin/Dextromethorphan (ROBITUSSIN-DM) 10 ML QID PRN PRN PO Hydralazine HCl (APRESOLINE) 10 MG Q4H PRN PRN IV Hydrocodone Bitart/Acetaminophen (NORCO 5/325 TABLET) 1 TAB Q4H PRN PRN PO Hydrocodone Bitart/Acetaminophen (NORCO 10/325 TABLET) 1 TAB Q4H PRN PRN PO Insulin Human Lispro (HUMALOG) See Admin Criteria ASDIR PRN SUBQ Magnesium Sulfate/Dextrose (MAGNESIUM SULFATE 1GM/D5W 100ML) 100 ML DAILY PRN PRN IV (CKD) Morphine Sulfate (morphine PF SYRINGE) 2 MG Q4H PRN PRN IV (DC) Ondansetron HCl (ZOFRAN) 4 MG Q4H PRN PRN IV Potassium Chloride (K-DUR) 40 MEQ DAILY PRN PRN PO Potassium Phos/Sodium Phos (PHOS-NAK PACKET) 2 PKT DAILY PRN PRN PO (CKD) Senna (SENOKOT) 1 TAB DAILY PRN PRN PO (CKD) Simethicone (MYLICON) 160 MG Q6H PRN PRN PO Trazodone HCl (DESYREL) 50 MG BEDTIME PRN PRN PO Physical ExamCardiovascular: normal heart soundsRespiratory: decreased breath soundsAbdomen: softExtremities: L BKANeuro/RN MATERNITY: alert ResultsFindings/Data:Laboratory Tests 04/24 04/24 04/24 1241 0509 0503 Chemistry Sodium (133 - 144 mmol/L) 136.0 Potassium (3.5 - 5.1 mmol/L) 4.3 Chloride (95 - 105 mmol/L) 104 Carbon Dioxide (21 - 32 mmol/L) 26 Anion Gap (4.0 - 15.0 GAP calc) 6.0 BUN (7 - 18 MG/DL) 15 Creatinine (0.55 - 1.30 MG/DL) 0.76 Glomerular Filtr Rate (>60 estGFR) 105 Glucose (70 - 110 MG/DL) 212 H POC Glucose (70 - 119 MG/DL) 215 H 233 H Calcium (8.5 - 10.1 MG/DL) 8.4 L Specimen Appearance (1 NORMAL Index/DL) 1 NORMAL <2 MG Specimen Hemolysis (1 NORMAL Index/DL) 4 SMALL 50-200 MG H 04/23 1703 Chemistry POC Glucose (70 - 119 MG/DL) 208 H 168 H Results: labs reviewed, vital signs reviewed Diagnosis, Assessment Plan Free Text DxA P NotesFree text DxA P notes:Back abscessS/p I DContinue antibioticsCulture Chest painAspirin beta-blockerCardiac enzymes Diabetes mellitus with hyperglycemiaContinue home medicationInsulin sliding scale HypertensionOptimize control PVDS/p left BKAModify risk factors DVT prophylaxisLovenoxAdvanced directive discussed 3Patient seen evaluated on this date. Please see chronological assessment plan by hospital service above.Patient status post I D for back abscess, appreciate surgery, will follow-up anyrecommendations pertaining repeat intervention. We will follow-up wound care recommendations. Patient tolerating wound care. Discussed at [facility], patient apparently does not have placement options or good home health options due to his insurance. We will reach out to PCP if they can do wound care at office.Discussed plan of care with patient, they were appreciative. Total visit time 58 minutes 04/23/2023atient seen and evaluated on this date. Please see chronological assessment plan by hospital service above.Patient continues to do well clinically on IV antibiotics and wound care. Appreciate surgery following, no plan currently for repeat intervention. Patient eval by wound care nurse will follow-up recommendations. Per case management patient does not have home health due to his insurance. Per PCP theycan do simple wound changes we will follow-up needs per wound care assessment. Total visit time 57 minutes 04/24/2023atient seen and evaluated on this date. Please see chronological assessment plan by hospital service above.Patient clinically improving, per ID plan to switch to PO in [facility] discussed with Daughter whom patient is going to live with, she works with Home health, she is confident to perform Wound careDC planning soon Total visit time 56 min at 1603 [facility] #:[phone] OF REPORTPRProgress okgt5404-87-50A19:45:00B.[id number] Available for patient xvvoVTDCHQNEEHKMHE6439-98-41F25:04:[address] [facility] 2023-04-23 14:52:00 [id number]/UaxFdJ4geI1GIJovy4dbT6cn11 7WLD zkX072y+xnAmskgc+vumQKVUNgZUwlcW3102-08-80I7 4:52:00 [facility] ([facility])General Surgery Progress NoteREPORT#:[id number] REPORT STATUS: SignedREPORT INITIALIZATION DATE:04/23/23 TIME: 1451 PATIENT: BRIGHT SALAZAR UNIT #: [id number]#: [id number] [facility] AGE: 57 SEX: M ATTEND: Kiel Gardiner MDADM AUTHOR: Ciro Ayers MDREPT SERVICE DT/TIME: 04/23/231451* ALL edits or amendments must be made on the electronic/computer document * SubjectiveHPI:He complains of pain, the area of his back abscess/wound is improved. He is getting wound care now. Objective GeneralVS/I O:Last Documented: Result Date Time Pulse Ox 95 04/23 1246 B/P 149/79 04/23 1246 B/P Mean 102.6 04/23 1246 O2 Delivery Room air 04/23 1246 Temp 97.9 04/23 1246 Pulse 67 04/23 1246 Resp 16 04/23 1246 Vital SignsDate Temp Pulse Resp B/P B/P Mean Pulse Ox NzX240/14-04/23 97.3-98.4 67-71 12-18 133-166/74-83 93.5-110.5 93-97 24 hour I O ending at 0700: 04/23 0700 04/22 1900 Intake Total 500.00 Output Total 850 1675 Balance -850 -1175.00 Intake, IV 500.00 Number Voids 0 Output, Urine 850 1675 PATIENT WEIGHT: Weight (lb): 191Weight (oz): 12.83Weight (kg): 87.000 Medications:Active Meds + DC'd Last 24 HrsCollagenase (SANTYL 30 GM OINTMENT) 1 APPLIC DAILY TOPICAL Sodium Chloride (SODIUM CHLORIDE SYRINGE 10ML) 0 ASDIR IV Insulin Human NPH (HumuLIN N) 10 UNIT BID AC SUBQ Enoxaparin Sodium (LOVENOX) 40 MG DAILY SUBQ Aspirin (ASPIRIN) 81 MG DAILY PO Clopidogrel Bisulfate (PLAVIX) 75 MG DAILY PO Metoprolol Succinate (TOPROL XL) 50 MG DAILY PO Gabapentin (NEURONTIN) 300 MG TID PO Zolpidem Tartrate (AMBIEN) 10 MG BEDTIME PRN PRN PO Dextrose/Water (DEXTROSE 50%-WATER) 25 ML ASDIR PRN IV (CKD) Glucagon (GLUCAGON) 1 MG ASDIR PRN IM Glucose Polymer (GLUTOSE) 15 GM ASDIR PRN PO Ceftriaxone Sodium (ROCEPHIN) 1 GM DAILY IV Sterile Water (STERILE WATER) 10 MLVancomycin/Sodium Chloride (Vancomycin 1,500 mg/500 mL) 500 ML Q12H IV Miscellaneous Information (VANCOMYCIN PHARMACY TO DOSE) 1 EACH ASDIR IV (CKD) Acetaminophen (TYLENOL) 650 MG Q4H PRN PRN PO Acetaminophen (TYLENOL) 650 MG Q6H PRN PRN RECTAL Al Hydrox/Mg Hydrox/Simethicone (MAALOX PLUS) 30 ML Q4H PRN PRN PO Albuterol/Ipratropium (DUONEB 2.5-0.5MG/3ML SOLN) 3 ML RTQ4H PRN PRN NEB Bisacodyl (DULCOLAX) 10 MG DAILY PRN PRN PO Calcium Carbonate (TUMS) 1,000 MG DAILY PRN PRN PO Clonidine HCl (CATAPRES) 0.1 MG Q6H PRN PRN PO Guaifenesin/Dextromethorphan (ROBITUSSIN-DM) 10 ML QID PRN PRN PO Hydralazine HCl (APRESOLINE) 10 MG Q4H PRN PRN IV Hydrocodone Bitart/Acetaminophen (NORCO 5/325 TABLET) 1 TAB Q4H PRN PRN PO Hydrocodone Bitart/Acetaminophen (NORCO 10/325 TABLET) 1 TAB Q4H PRN PRN PO Insulin Human Lispro (HUMALOG) See Admin Criteria ASDIR PRN SUBQ Magnesium Sulfate/Dextrose (MAGNESIUM SULFATE 1GM/D5W 100ML) 100 ML DAILY PRN PRN IV (CKD) Morphine Sulfate (morphine PF SYRINGE) 2 MG Q4H PRN PRN IV Ondansetron HCl (ZOFRAN) 4 MG Q4H PRN PRN IV Potassium Chloride (K-DUR) 40 MEQ DAILY PRN PRN PO Potassium Phos/Sodium Phos (PHOS-NAK PACKET) 2 PKT DAILY PRN PRN PO (CKD) Senna (SENOKOT) 1 TAB DAILY PRN PRN PO (CKD) Simethicone (MYLICON) 160 MG Q6H PRN PRN PO Trazodone HCl (DESYREL) 50 MG BEDTIME PRN PRN PO Physical ExamGeneral appearance: alert, awake, orientedMusculoskeletal: right lower back abscess, packed, improving ResultsFindings/Data:Laboratory Tests 04/23/23 0538:[Embedded Image Not Available]Laboratory Tests 04/23 04/23 04/23 1246 0538 0417 Chemistry Sodium (133 - 144 mmol/L) 137.0 Potassium (3.5 - 5.1 mmol/L) 4.0 Chloride (95 - 105 mmol/L) 104 Carbon Dioxide (21 - 32 mmol/L) 27 Anion Gap (4.0 - 15.0 GAP calc) 6.0 BUN (7 - 18 MG/DL) 13 Creatinine (0.55 - 1.30 MG/DL) 0.69 Glomerular Filtr Rate (>60 estGFR) 108 Glucose (70 - 110 MG/DL) 184 H POC Glucose (70 - 119 MG/DL) 167 H 180 H Calcium (8.5 - 10.1 MG/DL) 8.6 Specimen Appearance (1 NORMAL Index/DL) 1 NORMAL <2 MG Specimen Hemolysis (1 NORMAL Index/DL) 3 SMALL 25-50 MG 04/22 04/22 1932 1628 Chemistry POC Glucose (70 - 119 MG/DL) 220 H 202 H Diagnosis, Assessment PlanFree Text A P:Right back abscess Continue local wound care okay to discharge from my standpoint on appropriate antibiotics per ID, follow-up in the office in 1 week. Questions were answered. at 1457 [facility] #:[id number] OF REPORTPRProgress [id number]:52:00B.[id number] Available for patient ecbdUYAQCCFKBVYNFL4675-05-26X83:58:[address] [facility] 2023-04-23 13:26:00 [id number]+rM7Nr3iDraBciO6drsq vXIv yyZ/MEa3CGa2mVOVPmtFLyjNVQM4JMWS3805-73-04X6 3:26:00 [facility] ([facility])Hospitalist Progress NoteREPORT#:[id number] REPORT STATUS: SignedREPORT INITIALIZATION DATE:04/23/23 TIME: 1325 PATIENT: BRIGHT SALAZAR UNIT #: [id number]#: [id number] [facility] [birth year] AGE: 57 SEX: M ATTEND: Kiel Gardiner MDADM AUTHOR: Arpit Pressley MDREPT SERVICE DT/TIME: 04/23/23 1326* ALL edits or amendments must be made on the electronic/computer document * SubjectiveChief complaint:Chest painHPI:This is a 57-year-old gentleman with past medical history of diabetes peripheralvascular disease left BKA he was brought into the ER because of chest pain rightflank pain and abdominal pain no nausea no vomiting no diarrhea no hematemesis melena or blood in stool denies cough congestion denies loss of consciousness seizure activity he was found to have abscess area at the mid back which was drained by ER MD started on antibiotics and was transferred to the floor for further management Free Text Subj NotesFree Text Subj Notes:No acute complaints Objective GeneralVS/I O:Vital Signs: Date Time Temp Pulse Resp B/P B/P Pulse O2 O2 Flow FiO2 Mean Ox Delivery Rate 04/23 1703 97.7 75 16 141/74 96.5 97 Room air 04/23 1246 97.9 67 16 149/79 102.6 95 Room air 04/23 0908 97.5 71 16 165/83 110.5 94 Room air 04/23 0836 98.4 70 18 161/80 106.7 95 04/23 0418 98.2 71 13 146/74 97.7 93 Room air 04/23 0019 97.3 69 13 133/74 93.5 97 Room air 04/22 1930 97.7 67 14 160/83 108.8 97 Room air 24 hour I O ending at 0700: 04/23 0700 04/22 1900 Intake Total 500.00 Output Total 850 1675 Balance -850 -1175.00 Intake, IV 500.00 Number Voids 0 Output, Urine 850 1675 PATIENT WEIGHT: Weight (lb): 191Weight (oz): 12.83Weight (kg): 87.000 Medications:Active Meds + DC'd Last 24 HrsCollagenase (SANTYL 30 GM OINTMENT) 1 APPLIC DAILY TOPICAL Sodium Chloride (SODIUM CHLORIDE SYRINGE 10ML) 0 ASDIR IV Insulin Human NPH (HumuLIN N) 10 UNIT BID AC SUBQ Enoxaparin Sodium (LOVENOX) 40 MG DAILY SUBQ Aspirin (ASPIRIN) 81 MG DAILY PO Clopidogrel Bisulfate (PLAVIX) 75 MG DAILY PO Metoprolol Succinate (TOPROL XL) 50 MG DAILY PO Gabapentin (NEURONTIN) 300 MG TID PO Zolpidem Tartrate (AMBIEN) 10 MG BEDTIME PRN PRN PO Dextrose/Water (DEXTROSE 50%-WATER) 25 ML ASDIR PRN IV (CKD) Glucagon (GLUCAGON) 1 MG ASDIR PRN IM Glucose Polymer (GLUTOSE) 15 GM ASDIR PRN PO Ceftriaxone Sodium (ROCEPHIN) 1 GM DAILY IV Sterile Water (STERILE WATER) 10 MLVancomycin/Sodium Chloride (Vancomycin 1,500 mg/500 mL) 500 ML Q12H IV Miscellaneous Information (VANCOMYCIN PHARMACY TO DOSE) 1 EACH ASDIR IV (CKD) Acetaminophen (TYLENOL) 650 MG Q4H PRN PRN PO Acetaminophen (TYLENOL) 650 MG Q6H PRN PRN RECTAL Al Hydrox/Mg Hydrox/Simethicone (MAALOX PLUS) 30 ML Q4H PRN PRN PO Albuterol/Ipratropium (DUONEB 2.5-0.5MG/3ML SOLN) 3 ML RTQ4H PRN PRN NEB Bisacodyl (DULCOLAX) 10 MG DAILY PRN PRN PO Calcium Carbonate (TUMS) 1,000 MG DAILY PRN PRN PO Clonidine HCl (CATAPRES) 0.1 MG Q6H PRN PRN PO Guaifenesin/Dextromethorphan (ROBITUSSIN-DM) 10 ML QID PRN PRN PO Hydralazine HCl (APRESOLINE) 10 MG Q4H PRN PRN IV Hydrocodone Bitart/Acetaminophen (NORCO 5/325 TABLET) 1 TAB Q4H PRN PRN PO Hydrocodone Bitart/Acetaminophen (NORCO 10/325 TABLET) 1 TAB Q4H PRN PRN PO Insulin Human Lispro (HUMALOG) See Admin Criteria ASDIR PRN SUBQ Magnesium Sulfate/Dextrose (MAGNESIUM SULFATE 1GM/D5W 100ML) 100 ML DAILY PRN PRN IV (CKD) Morphine Sulfate (morphine PF SYRINGE) 2 MG Q4H PRN PRN IV Ondansetron HCl (ZOFRAN) 4 MG Q4H PRN PRN IV Potassium Chloride (K-DUR) 40 MEQ DAILY PRN PRN PO Potassium Phos/Sodium Phos (PHOS-NAK PACKET) 2 PKT DAILY PRN PRN PO (CKD) Senna (SENOKOT) 1 TAB DAILY PRN PRN PO (CKD) Simethicone (MYLICON) 160 MG Q6H PRN PRN PO Trazodone HCl (DESYREL) 50 MG BEDTIME PRN PRN PO Physical ExamCardiovascular: normal heart soundsRespiratory: decreased breath soundsAbdomen: softExtremities: L BKANeuro/RN MATERNITY: alert ResultsFindings/Data:Laboratory Tests 04/23 04/23 04/23 1703 1246 0538 Chemistry Sodium (133 - 144 mmol/L) 137.0 Potassium (3.5 - 5.1 mmol/L) 4.0 Chloride (95 - 105 mmol/L) 104 Carbon Dioxide (21 - 32 mmol/L) 27 Anion Gap (4.0 - 15.0 GAP calc) 6.0 BUN (7 - 18 MG/DL) 13 Creatinine (0.55 - 1.30 MG/DL) 0.69 Glomerular Filtr Rate (>60 estGFR) 108 Glucose (70 - 110 MG/DL) 184 H POC Glucose (70 - 119 MG/DL) 168 H 167 H Calcium (8.5 - 10.1 MG/DL) 8.6 Specimen Appearance (1 NORMAL Index/DL) 1 NORMAL <2 MG Specimen Hemolysis (1 NORMAL Index/DL) 3 SMALL 25-50 MG 04/23 04/22 5717 1932 Chemistry POC Glucose (70 - 119 MG/DL) 180 H 220 H Results: labs reviewed, vital signs reviewed Diagnosis, Assessment Plan Free Text DxA P NotesFree text DxA P notes:Back abscessS/p I DContinue antibioticsCulture Chest painAspirin beta-blockerCardiac enzymes Diabetes mellitus with hyperglycemiaContinue home medicationInsulin sliding scale HypertensionOptimize control PVDS/p left BKAModify risk factors DVT prophylaxisLovenoxAdvanced directive discussed 04/22/2023atient seen evaluated on this date. Please see chronological assessment plan by hospital service above.Patient status post I D for back abscess, appreciate surgery, will follow-up anyrecommendations pertaining repeat intervention. We will follow-up wound care recommendations. Patient tolerating wound care. Discussed at [facility], patient apparently does not have placement options or good home health options due to his insurance. We will reach out to PCP if they can do wound care at office.Gurjit plan of care with patient, they were appreciative. Total visit time 58 minutes 04/23/2023atient seen and evaluated on this date. Please see chronological assessment plan by hospital service above.Patient continues to do well clinically on IV antibiotics and wound care. Appreciate surgery following, no plan currently for repeat intervention. Patient eval by wound care nurse will follow-up recommendations. Per case management patient does not have home health due to his insurance. Per PCP theycan do simple wound changes we will follow-up needs per wound care assessment. Total visit time 57 minutes at 1805 [facility] #:[id number] OF REPORTPRProgress [id number]:26:00B.[id number] Available for patient kuenEDYJHWVBZXETDS8576-21-82Y69:06:[address] [facility] 2023-04-23 08:49:00 [id number] vJVW [id number]p00459-44-26M5 8:49:[id number] [place], [place] [address] PATIENT NAME: BRIGHT SALAZAR ADMIT DATE: 04/19/23ACCOUNT NO: [id number] ROOM NO: B345 AGE: 57 REPORT TYPE: PROGRESS NOTE SEX: M ADMITTING PHYSICIAN:Kiel Gardiner MD ATTENDING PHYSICIAN:Kiel Gardiner MD DATE: INFECTIOUS DISEASE FOLLOWUP SUBJECTIVE: Generally fair. OBJECTIVE:VITAL SIGNS: 97 odd degrees temperature.HEENT: Not much of any thrush or rash.ABDOMEN: Soft. The wound continues to have induration. Multiple followup notes from General Surgery indicate no drainage. The patient will continue with antibiotics for 1 or 2 days IV and then we will look into discharge on perhaps oral doxycycline. Otherwise, stable. Dictated By: Torie Baker MD Date Dictated: 04/23/2023 08:49:28Date Transcribed: 04/23/2023 09:00:08SYWhitney/Selena #: [id number] ID: [id number] by Torie Baker MD On 04/25/2023 02:51:43 PM at 0251 PATIENT NAME: BRIGHT SALAZAR [id number]:00:00B.[id number] vailable for patient qtwlPFIUVAADIOQFNZ2813-20-46K96:52:[address] [facility] 2023-04-23 06:04:00 [id number] BqbE ELicsPdGYsW0oHFQe26I/XgwCNaCdrR04650-48-17O0 6:04:00 [facility] Progress NoteREPORT#:[id number] REPORT STATUS: SignedREPORT INITIALIZATION DATE:04/23/23 TIME: 603 PATIENT: BRIGHT SALAZAR UNIT #: [id number]#: [id number] [facility] AGE: 57 SEX: M ATTEND: Kiel Gardiner AUTHOR: Rosario Rod DO R1REPT SERVICE DT/TIME: 04/23/23 0604* ALL edits or amendments must be made on the electronic/computer document * SubjectiveChief complaint:back/chest painHPI:Pt resting this morning. Continues to endorse pain where the abscess is, and pain is unchanged from yesterday's visit. Denies chest pain, shortness of breath, abdominal pain, difficulty urinating. Review of SystemsConstitutional:other (as per HPI). Objective GeneralVS/I O:Last Documented: Result Date Time Pulse Ox 93 04/23 418 B/P 146/74 04/23 418 B/P Mean 97.7 04/23 418 O2 Delivery Room air 04/23 418 Temp 98.2 04/23 418 Pulse 71 04/23 418 Resp 13 04/23 418 Vital SignsDate Temp Pulse Resp B/P B/P Mean Pulse Ox IiB992/14-04/23 97.3-98.2 67-71 12-18 133-167/70-85 91.7-112.4 93-97 24 hour I O ending at 0700: 04/23 0700 04/22 1900 Intake Total 500.00 Output Total 1675 Balance -1175.00 Intake, IV 500.00 Number Voids 0 Output, Urine 1675 PATIENT WEIGHT: Weight (lb): 191Weight (oz): 12.83Weight (kg): 87.000 Physical ExamGeneral appearance: alert, awake, oriented, no acute distressWound/incision: Location:R lower back Site condition: abscess dressing intactCardiovascular: normal S1/S2, regular rate and rhythmRespiratory: clear to auscultation, no distressAbdomen: non-tender, softMusculoskeletal: right lower back abscess open with wound dressings. Wound dressings dry, clean, intact. Induration and mild erythema still present. Extreme tendereness to touch around the area.Neuro/RN MATERNITY: alert, oriented x 3Psychiatry: normal affect, normal judgment/insight, normal mood ResultsFindings/Data:Laboratory Tests 04/23/23 0538:[Embedded Image Not Available]Laboratory Tests 04/23 04/23 04/22 04/22 0538 0417 193 1628Chemistry Sodium (133 - 144 mmol/L) 137.0 Potassium (3.5 - 5.1 mmol/L) 4.0 Chloride (95 - 105 mmol/L) 104 Carbon Dioxide (21 - 32 mmol/L) 27 Anion Gap (4.0 - 15.0 GAP calc) 6.0 BUN (7 - 18 MG/DL) 13 Creatinine (0.55 - 1.30 MG/DL) 0.69 Glomerular Filtr Rate (>60 estGFR) 108 Glucose (70 - 110 MG/DL) 184 H POC Glucose (70 - 119 MG/DL) 180 H 220 H 202 H Calcium (8.5 - 10.1 MG/DL) 8.6 Specimen Appearance (1 NORMAL Index/DL) 1 NORMAL <2 MG Specimen Hemolysis (1 NORMAL Index/DL) 3 SMALL 25-50 MG 04/22 1113 Chemistry POC Glucose (70 - 119 MG/DL) 194 H Free Text Obj NotesFree Text Obj Notes:Right mid back he has about a 3 cm area of some skin necrosis and phlegmon, somesurrounding erythema that is improving. Diagnosis, Assessment PlanFree Text A P:Back abscess- s/p I D in ED, on 04/19 - wound care, BID packing changes- Vanc, rocephin (04/20 -) - will continue conservative management at this time with wound care and abx Intraabdominal fluid collection- s/p lap appy in 11/2022- no drainage recommended at this time- continue to monitor Dispo: clinical improvement, ID recs at 0922 RPT #:[id number] OF REPORTPRProgress [id number]:04:00B.[id number] Available for patient jaycPTIJADPRUTICBF5458-72-73L92:22:[address] [facility] 2023-04-22 16:00:00 [id number] rjf3 I1mWEC5yKfk8uEK53TjUZeW5jlkfpHe/4641-10-69M8 6:00:00 [facility] ([facility] SYSTEMGeneral [facility] Progress NoteREPORT#:[id number] REPORT STATUS: SignedREPORT INITIALIZATION DATE:04/22/23 TIME: 1600 PATIENT: BRIGHT SALAZAR UNIT #: [id number]#: [id number] [facility] [birth year] AGE: 57 SEX: M ATTEND: Kiel Gardiner AUTHOR: Ciro Ayers MDREPT SERVICE DT/TIME: 04/22/23 1600* ALL edits or amendments must be made on the electronic/computer document * SubjectiveHPI:He continues to have back pain, he states nursing has not packed his wound. No fevers or chills. Objective GeneralVS/I O:Last Documented: Result Date Time Pulse Ox 95 04/22 1114 B/P 135/70 04/22 1114 B/P Mean 91.7 04/22 1114 O2 Delivery Room air 04/22 1114 Temp 97.7 04/22 1114 Pulse 69 04/22 1114 Resp 18 04/22 1114 Vital SignsDate Temp Pulse Resp B/P B/P Mean Pulse Ox EeR541/13-04/22 97.5-97.7 68-72 14-18 135-179/68-93 90.8-121.8 94-97 24 hour I O ending at 0700: 04/22 0700 04/21 1900 Intake Total 586 1100 Output Total 750 1060 Balance -164 40 Intake, Oral 586 1100 Output, Urine 750 1060 PATIENT WEIGHT: Weight (lb): 191Weight (oz): 12.83Weight (kg): 87.000 Medications:Active Meds + DC'd Last 24 HrsCollagenase (SANTYL 30 GM OINTMENT) 1 APPLIC DAILY TOPICAL Sodium Chloride (SODIUM CHLORIDE SYRINGE 10ML) 0 ASDIR IV Insulin Human NPH (HumuLIN N) 10 UNIT BID AC SUBQ Enoxaparin Sodium (LOVENOX) 40 MG DAILY SUBQ Aspirin (ASPIRIN) 81 MG DAILY PO Clopidogrel Bisulfate (PLAVIX) 75 MG DAILY PO Metoprolol Succinate (TOPROL XL) 50 MG DAILY PO Gabapentin (NEURONTIN) 300 MG TID PO Zolpidem Tartrate (AMBIEN) 10 MG BEDTIME PRN PRN PO Dextrose/Water (DEXTROSE 50%-WATER) 25 ML ASDIR PRN IV (CKD) Glucagon (GLUCAGON) 1 MG ASDIR PRN IM Glucose Polymer (GLUTOSE) 15 GM ASDIR PRN PO Ceftriaxone Sodium (ROCEPHIN) 1 GM DAILY IV Sterile Water (STERILE WATER) 10 MLVancomycin/Sodium Chloride (Vancomycin 1,500 mg/500 mL) 500 ML Q12H IV Miscellaneous Information (VANCOMYCIN PHARMACY TO DOSE) 1 EACH ASDIR IV (CKD) Sodium Chloride (SODIUM CHLORIDE 0.9% 1000 ML) 1,000 ML .Q10H IV (DC) Acetaminophen (TYLENOL) 650 MG Q4H PRN PRN PO Acetaminophen (TYLENOL) 650 MG Q6H PRN PRN RECTAL Al Hydrox/Mg Hydrox/Simethicone (MAALOX PLUS) 30 ML Q4H PRN PRN PO Albuterol/Ipratropium (DUONEB 2.5-0.5MG/3ML SOLN) 3 ML RTQ4H PRN PRN NEB Bisacodyl (DULCOLAX) 10 MG DAILY PRN PRN PO Calcium Carbonate (TUMS) 1,000 MG DAILY PRN PRN PO Clonidine HCl (CATAPRES) 0.1 MG Q6H PRN PRN PO Guaifenesin/Dextromethorphan (ROBITUSSIN-DM) 10 ML QID PRN PRN PO Hydralazine HCl (APRESOLINE) 10 MG Q4H PRN PRN IV Hydrocodone Bitart/Acetaminophen (NORCO 5/325 TABLET) 1 TAB Q4H PRN PRN PO Hydrocodone Bitart/Acetaminophen (NORCO 10/325 TABLET) 1 TAB Q4H PRN PRN PO Insulin Human Lispro (HUMALOG) See Admin Criteria ASDIR PRN SUBQ Magnesium Sulfate/Dextrose (MAGNESIUM SULFATE 1GM/D5W 100ML) 100 ML DAILY PRN PRN IV (CKD) Morphine Sulfate (morphine PF SYRINGE) 2 MG Q4H PRN PRN IV Ondansetron HCl (ZOFRAN) 4 MG Q4H PRN PRN IV Potassium Chloride (K-DUR) 40 MEQ DAILY PRN PRN PO Potassium Phos/Sodium Phos (PHOS-NAK PACKET) 2 PKT DAILY PRN PRN PO (CKD) Senna (SENOKOT) 1 TAB DAILY PRN PRN PO (CKD) Simethicone (MYLICON) 160 MG Q6H PRN PRN PO Trazodone HCl (DESYREL) 50 MG BEDTIME PRN PRN PO Physical ExamGeneral appearance: alert, awake, oriented Free Text Obj NotesFree Text Obj Notes:Right mid back he has about a 3 cm area of some skin necrosis and phlegmon, somesurrounding erythema that is improving. Diagnosis, Assessment PlanFree Text A P:Back abscess with some necrosis Local wound care as ordered. I will reevaluate daily. Findings reviewed and questions were answered. at 1602 [facility] #:[id number] OF REPORTPRProgress [id number]:00:00B.[id number] Available for patient bxepCNVRMYBWZGPGSM9323-97-07T54:02:[address] [facility] 2023-04-22 10:08:00 [id number]/lmEeqHJaCoNh VE4M GYxtQwV0+vBrasWGt+nj0s/VeVUM3KFY2438-85-72G7 0:08:[id number] [place] [address] PATIENT NAME: BRIGHT SALAZAR ADMIT DATE: 04/19/23ACCOUNT NO: [id number] ROOM NO: [facility] AGE: 57 REPORT TYPE: PROGRESS NOTE SEX: M ADMITTING PHYSICIAN:Kiel Gardiner MD ATTENDING PHYSICIAN:Kiel Gardiner MD DATE: INFECTIOUS DISEASE FOLLOWUP SUBJECTIVE: The patient with back abscess. Overall, generally stable. The patient was seen again by general surgery. They indicate continued conservative management. Unfortunately, no culture was done at the time of presentation 3 days ago in the ER and on our later exam, there was not much to do. We will continue with the current supportive care. The patient does have poorly controlled diabetes, now the blood sugars are at least less than 250. Continue care. Hopefully, look into discharge on oral antimicrobials before the end of the week. Dictated By: Torie Baker MD Date Dictated: 04/22/2023 10:08:43Date Transcribed: 04/22/2023 10:21:54ISIS/Brenda #: [id number] ID: [id number] by Torie Baker MD On 04/23/2023 08:58:18 AM at 0858 PATIENT NAME: BRIGHT SALAZAR ohdr6438-25-45C08:21:00B.[id number] vailable for patient rryzYTQXQLYKUAYHBA4457-81-91N13:58:[address] [facility] 2023-04-22 09:54:00 [id number] zDsy 0g1ZRcwJ4kToWT9tJ2ZQnetc6Rd4YIg15621-44-41W3 9:54:00 [facility] CenterHospitalist Progress NoteREPORT#:[id number] REPORT STATUS: SignedREPORT INITIALIZATION DATE:04/22/23 TIME: 953 PATIENT: BRIGHT SALAZAR UNIT #: [id number]#: [id number] [facility] AGE: 57 SEX: M ATTEND: Kiel Gardiner MDADM AUTHOR: Arpit Pressley MDREPT SERVICE DT/TIME: 04/22/23 0954* ALL edits or amendments must be made on the electronic/computer document * SubjectiveChief complaint:Chest painHPI:This is a 57-year-old gentleman with past medical history of diabetes peripheralvascular disease left BKA he was brought into the ER because of chest pain rightflank pain and abdominal pain no nausea no vomiting no diarrhea no hematemesis melena or blood in stool denies cough congestion denies loss of consciousness seizure activity he was found to have abscess area at the mid back which was drained by ER MD started on antibiotics and was transferred to the floor for further management Free Text Subj NotesFree Text Subj Notes:No acute complaints other than tenderness around I D site Objective GeneralVS/I O:Vital Signs: Date Time Temp Pulse Resp B/P B/P Pulse O2 O2 Flow FiO2 Mean Ox Delivery Rate 04/22 1627 97.9 69 12 166/78 107.5 97 Room air 04/22 1114 97.7 69 18 135/70 91.7 95 Room air 04/22 0804 97.7 71 14 167/85 112.4 95 Room air 04/22 0537 69 137/68 90.8 04/22 0456 97.7 72 17 179/93 121.8 97 04/22 0013 97.5 68 17 162/79 106.4 94 04/21 1947 97.7 69 17 155/74 100.7 96 24 hour I O ending at 0700: 04/22 0700 04/21 1900 Intake Total 586 1100 Output Total 750 1060 Balance -164 40 Intake, Oral 586 1100 Output, Urine 750 1060 PATIENT WEIGHT: Weight (lb): 191Weight (oz): 12.83Weight (kg): 87.000 Medications:Active Meds + DC'd Last 24 HrsCollagenase (SANTYL 30 GM OINTMENT) 1 APPLIC DAILY TOPICAL Sodium Chloride (SODIUM CHLORIDE SYRINGE 10ML) 0 ASDIR IV Insulin Human NPH (HumuLIN N) 10 UNIT BID AC SUBQ Enoxaparin Sodium (LOVENOX) 40 MG DAILY SUBQ Aspirin (ASPIRIN) 81 MG DAILY PO Clopidogrel Bisulfate (PLAVIX) 75 MG DAILY PO Metoprolol Succinate (TOPROL XL) 50 MG DAILY PO Gabapentin (NEURONTIN) 300 MG TID PO Zolpidem Tartrate (AMBIEN) 10 MG BEDTIME PRN PRN PO Dextrose/Water (DEXTROSE 50%-WATER) 25 ML ASDIR PRN IV (CKD) Glucagon (GLUCAGON) 1 MG ASDIR PRN IM Glucose Polymer (GLUTOSE) 15 GM ASDIR PRN PO Ceftriaxone Sodium (ROCEPHIN) 1 GM DAILY IV Sterile Water (STERILE WATER) 10 MLVancomycin/Sodium Chloride (Vancomycin 1,500 mg/500 mL) 500 ML Q12H IV Miscellaneous Information (VANCOMYCIN PHARMACY TO DOSE) 1 EACH ASDIR IV (CKD) Sodium Chloride (SODIUM CHLORIDE 0.9% 1000 ML) 1,000 ML .Q10H IV (DC) Acetaminophen (TYLENOL) 650 MG Q4H PRN PRN PO Acetaminophen (TYLENOL) 650 MG Q6H PRN PRN RECTAL Al Hydrox/Mg Hydrox/Simethicone (MAALOX PLUS) 30 ML Q4H PRN PRN PO Albuterol/Ipratropium (DUONEB 2.5-0.5MG/3ML SOLN) 3 ML RTQ4H PRN PRN NEB Bisacodyl (DULCOLAX) 10 MG DAILY PRN PRN PO Calcium Carbonate (TUMS) 1,000 MG DAILY PRN PRN PO Clonidine HCl (CATAPRES) 0.1 MG Q6H PRN PRN PO Guaifenesin/Dextromethorphan (ROBITUSSIN-DM) 10 ML QID PRN PRN PO Hydralazine HCl (APRESOLINE) 10 MG Q4H PRN PRN IV Hydrocodone Bitart/Acetaminophen (NORCO 5/325 TABLET) 1 TAB Q4H PRN PRN PO Hydrocodone Bitart/Acetaminophen (NORCO 10/325 TABLET) 1 TAB Q4H PRN PRN PO Insulin Human Lispro (HUMALOG) See Admin Criteria ASDIR PRN SUBQ Magnesium Sulfate/Dextrose (MAGNESIUM SULFATE 1GM/D5W 100ML) 100 ML DAILY PRN PRN IV (CKD) Morphine Sulfate (morphine PF SYRINGE) 2 MG Q4H PRN PRN IV Ondansetron HCl (ZOFRAN) 4 MG Q4H PRN PRN IV Potassium Chloride (K-DUR) 40 MEQ DAILY PRN PRN PO Potassium Phos/Sodium Phos (PHOS-NAK PACKET) 2 PKT DAILY PRN PRN PO (CKD) Senna (SENOKOT) 1 TAB DAILY PRN PRN PO (CKD) Simethicone (MYLICON) 160 MG Q6H PRN PRN PO Trazodone HCl (DESYREL) 50 MG BEDTIME PRN PRN PO Physical ExamCardiovascular: normal heart soundsRespiratory: decreased breath soundsAbdomen: softExtremities: L BKANeuro/RN MATERNITY: alert ResultsFindings/Data:Laboratory Tests 04/22 04/22 04/22 04/22 1628 1113 0641 0455Chemistry Sodium (133 - 144 mmol/L) 137.0 Potassium (3.5 - 5.1 mmol/L) 4.1 Chloride (95 - 105 mmol/L) 106 H Carbon Dioxide (21 - 32 mmol/L) 24 Anion Gap (4.0 - 15.0 GAP calc) 7.0 BUN (7 - 18 MG/DL) 10 Creatinine (0.55 - 1.30 MG/DL) 0.67 Glomerular Filtr Rate (>60 estGFR) 109 Glucose (70 - 110 MG/DL) 219 H POC Glucose (70 - 119 MG/DL) 202 H 194 H 224 H Calcium (8.5 - 10.1 MG/DL) 8.4 L Specimen Appearance (1 NORMAL Index/DL) 1 NORMAL <2 MG Specimen Hemolysis (1 NORMAL Index/DL) 2 TRACE 10-25 MG 04/21 1914 Chemistry Sodium (133 - 144 mmol/L) 136.0 Potassium (3.5 - 5.1 mmol/L) 4.4 Chloride (95 - 105 mmol/L) 105 Carbon Dioxide (21 - 32 mmol/L) 26 Anion Gap (4.0 - 15.0 GAP calc) 5.0 BUN (7 - 18 MG/DL) 13 Creatinine (0.55 - 1.30 MG/DL) 0.75 Glomerular Filtr Rate (>60 estGFR) 105 Glucose (70 - 110 MG/DL) 242 H POC Glucose (70 - 119 MG/DL) 240 H Calcium (8.5 - 10.1 MG/DL) 7.9 L Specimen Appearance (1 NORMAL Index/DL) 1 NORMAL <2 MG Specimen Hemolysis (1 NORMAL Index/DL) 3 SMALL 25-50 MG Laboratory Tests 04/22 0800 Toxicology Vancomycin Trough (10 - 20 mcG/ML) 18.1 Results: labs reviewed, vital signs reviewed Diagnosis, Assessment Plan Free Text DxA P NotesFree text DxA P notes:Back abscessS/p I DContinue antibioticsCulture Chest painAspirin beta-blockerCardiac enzymes Diabetes mellitus with hyperglycemiaContinue home medicationInsulin sliding scale HypertensionOptimize control PVDS/p left BKAModify risk factors DVT prophylaxisLovenoxAdvanced directive discussed 3Patient seen evaluated on this date. Please see chronological assessment plan by hospital service above.Patient status post I D for back abscess, appreciate surgery, will follow-up anyrecommendations pertaining repeat intervention. We will follow-up wound care recommendations. Patient tolerating wound care. Discussed at [facility], patient apparently does not have placement options or good home health options due to his insurance. We will reach out to PCP if they can do wound care at office.Gurjit plan of care with patient, they were appreciative. Total visit time 58 minutes at 1651 [facility] #:[id number] OF REPORTPRProgress [id number]:54:00B.[id number] Available for patient tqcwEBYUFLAYWUJGAW7717-05-49W60:51:[address] [facility] 2023-04-22 09:02:00 [id number] 8ow0 xBtZWvy3X3LWvPoAIHx28WUoXjzIH4uj1746-93-01B5 9:02:00 [facility] Prog.Note-VancomycinREPORT#:[id number] REPORT STATUS: SignedREPORT INITIALIZATION DATE:04/22/23 TIME: 901 PATIENT: BRIGHT SALAZAR UNIT #: [id number]#: [id number] [facility] AGE: 57 SEX: M ATTEND: Kiel Gardiner [facility] AUTHOR: Regino Davey [facility] CenterEPT SERVICE DT/TIME: 04/22/23 09* ALL edits or amendments must be made on the electronic/computer document * Vancomycin Vancomycin Medication TherapyGoal: GOAL 10-20Current therapy:1500 MG Q 12 HOURS Labs:Laboratory Tests: 04/22 0800 Toxicology Vancomycin Trough (10 - 20 mcG/ML) 18.1 Laboratory Test : 04/22 04/21 04/19 0641 1914 1729 Chemistry BUN (7 - 18 MG/DL) 10 13 19 H Creatinine (0.55 - 1.30 MG/DL) 0.67 0.75 1.02 Hematology WBC (4.1 - 12.1 K/mm3) 12.8 H Microbiology:04/19 2025 BLOOD: Blood Culture - RES04/19 2025 BLOOD: Blood Culture - RES04/19 2025 BLOOD: Blood Culture - RES04/19 2025 BLOOD: Blood Culture - RES Treatment plan: TROUGH LEVEL W/IN GOAL RANGE AND RENAL FUNCTION STABLE. WILL CONTINUE IS WITH NO CHANGES. WILL REPEAT A LEVEL IN 5 TO 7 DAYS, IF PT IS STILL HERE AND ON VANCOMYCIN AT THAT POINT IN TIME. at 0905 [facility] #:[id number] OF REPORTPRProgress [id number].[id number] Available for patient [id number]:05:26 [facility] 2023-04-22 07:03:00 [id number] n88r Tib6XDEVSClGoHEHLEJMvU+syOP+[id number] 7:03:00 [facility] Progress NoteREPORT#:[id number] REPORT STATUS: SignedREPORT INITIALIZATION DATE:04/22/23 TIME: 07 PATIENT: BRIGHT SALAZAR UNIT #: [id number]#: [id number] [facility]GE[facility] 57 SEX: M ATTEND: Kiel Gardiner [facility] AUTHOR: Rosario Rod DO R1REPT SERVICE DT/TIME: 04/22/23 0703* ALL edits or amendments must be made on the electronic/computer document * SubjectiveChief complaint:back/chest painHPI:Pt resting this morning. Continues to endorse pain in his back where the abscessis. Review of SystemsConstitutional:other (as per HPI). Objective GeneralVS/I O:Last Documented: Result Date Time B/P 137/68 04/22 0537 B/P Mean 90.8 04/22 0537 Pulse 69 04/22 0537 Pulse Ox 97 04/22 0456 Temp 97.7 04/22 0456 Resp 17 04/22 0456 O2 Delivery Room air 04/21 1538 Vital SignsDate Temp Pulse Resp B/P B/P Mean Pulse Ox DnA314/13-04/22 97.5-98.1 68-80 16-17 120-179/67-95 84.6-121.8 94-99 24 hour I O ending at 0700: 04/22 0700 04/21 1900 Intake Total 586 1100 Output Total 750 1060 Balance -164 40 Intake, Oral 586 1100 Output, Urine 750 1060 PATIENT WEIGHT: Weight (lb): 191Weight (oz): 12.83Weight (kg): 87.000 Physical ExamGeneral appearance: alert, awake, orientedWound/incision: Location:R lower back Site condition: abscess dressing intactAbdomen: no reboundMusculoskeletal: right lower back abscess open, some necrosis, and drainageNeuro/RN MATERNITY: alert, oriented x 3Psychiatry: normal affect, normal judgment/insight, normal mood ResultsFindings/Data:Laboratory Tests 04/22/2341:[Embedded Image Not Available] 04/21/231913:[Embedded Image Not Available]Laboratory Tests 04/22 04/22 04/21 0641 5 2026 Chemistry Sodium (133 - 144 mmol/L) 137.0 Potassium (3.5 - 5.1 mmol/L) 4.1 Chloride (95 - 105 mmol/L) 106 H Carbon Dioxide (21 - 32 mmol/L) 24 Anion Gap (4.0 - 15.0 GAP calc) 7.0 BUN (7 - 18 MG/DL) 10 Creatinine (0.55 - 1.30 MG/DL) 0.67 Glomerular Filtr Rate (>60 estGFR) 109 Glucose (70 - 110 MG/DL) 219 H POC Glucose (70 - 119 MG/DL) 224 H 240 H Calcium (8.5 - 10.1 MG/DL) 8.4 L Specimen Appearance (1 NORMAL Index/DL) 1 NORMAL <2 MG Specimen Hemolysis (1 NORMAL Index/DL) 2 TRACE 10-25 MG 04/21 1540 1205 Chemistry Sodium (133 - 144 mmol/L) 136.0 Potassium (3.5 - 5.1 mmol/L) 4.4 Chloride (95 - 105 mmol/L) 105 Carbon Dioxide (21 - 32 mmol/L) 26 Anion Gap (4.0 - 15.0 GAP calc) 5.0 BUN (7 - 18 MG/DL) 13 Creatinine (0.55 - 1.30 MG/DL) 0.75 Glomerular Filtr Rate (>60 estGFR) 105 Glucose (70 - 110 MG/DL) 242 H POC Glucose (70 - 119 MG/DL) 230 H 268 H Calcium (8.5 - 10.1 MG/DL) 7.9 L Specimen Appearance (1 NORMAL Index/DL) 1 NORMAL <2 MG Specimen Hemolysis (1 NORMAL Index/DL) 3 SMALL 25-50 MG Laboratory Tests 04/22 0800 Toxicology Vancomycin Trough (10 - 20 mcG/ML) 18.1 Radiology data:Recent Impressions:RADIOLOGY - XR ABDOMEN 1 V 04/21 1014 Report Impression - Status: SIGNED Entered: 04/21/2023 1047 impression:No bowel obstruction or ileus seen. Small amount of stool in the colon.Impression By: CriseldaAH26 - Juan Carlos Nowak MD Diagnosis, Assessment PlanFree Text A P:Back abscess- s/p I D in ED, on 04/19 - wound care, BID packing changes- Vanc, rocephin (04/20 -) - will continue conservative management at this time Intraabdominal fluid collection- s/p lap appy in 11/2022- no drainage recommended at this time- continue to monitor Dispo: clinical improvement at 0943 RPT #:[id number] OF REPORTPRProgress saqs8166-01-50H78:03:00B.[id number] Available for patient nlrlXOVIHYXLXUMCOJ1851-23-48P71:43:[address] [facility] 2023-04-21 17:47:00 [id number]Hy i7wB hVcHh4taVPkYkc88jCY0wti5lxJdbyeg1798-75-76P3 7:47:00 [facility] ([facility] SYSTEMGeneral Surgery Progress NoteREPORT#:[id number] REPORT STATUS: SignedREPORT INITIALIZATION DATE:04/21/23 TIME: 1746 PATIENT: BRIGHT SALAZAR UNIT #: [id number]#: [id number] [facility] AGE: 57 SEX: M ATTEND: Kiel Gardiner AUTHOR: Ciro Ayers MDREPT SERVICE DT/TIME: 04/21/231746* ALL edits or amendments must be made on the electronic/computer document * SubjectiveHPI:admitted for back abscess, had I and D in ED, present for a few weeks, packing is still present Objective GeneralVS/I O:Last Documented: Result Date Time Pulse Ox 99 04/21 1538 B/P 120/67 04/21 1538 B/P Mean 84.6 04/21 1538 O2 Delivery Room air 04/21 153 Temp 98.1 04/21 1538 Pulse 77 04/21 1538 Resp 16 04/21 1538 Vital SignsDate Temp Pulse Resp B/P B/P Mean Pulse Ox HzP168/12-04/21 97.7-98.1 75-82 14-18 120-164/67-95 84.6-117.6 95-99 24 hour I O ending at 0700: 04/21 0700 04/20 1900 Intake Total 2700.00 200 Output Total 1400 525 Balance 1300.00 -325 Intake, IV 1500.00 Intake, Oral 1200 200 Output, Urine 1400 525 PATIENT WEIGHT: Weight (lb): 191Weight (oz): 12.83Weight (kg): 87.000 Medications:Active Meds + DC'd Last 24 HrsSodium Chloride (SODIUM CHLORIDE SYRINGE 10ML) 0 ASDIR IV Insulin Human NPH (HumuLIN N) 10 UNIT BID AC SUBQ Enoxaparin Sodium (LOVENOX) 40 MG DAILY SUBQ Aspirin (ASPIRIN) 81 MG DAILY PO Clopidogrel Bisulfate (PLAVIX) 75 MG DAILY PO Metoprolol Succinate (TOPROL XL) 50 MG DAILY PO Sterile Water (STERILE WATER) 10 ML .STK-MED ONE IV (DC) Gabapentin (NEURONTIN) 300 MG TID PO Zolpidem Tartrate (AMBIEN) 10 MG BEDTIME PRN PRN PO Dextrose/Water (DEXTROSE 50%-WATER) 25 ML ASDIR PRN IV (CKD) Glucagon (GLUCAGON) 1 MG ASDIR PRN IM Glucose Polymer (GLUTOSE) 15 GM ASDIR PRN PO Ceftriaxone Sodium (ROCEPHIN) 1 GM DAILY IV Sterile Water (STERILE WATER) 10 MLVancomycin/Sodium Chloride (Vancomycin 1,500 mg/500 mL) 500 ML Q12H IV Miscellaneous Information (VANCOMYCIN PHARMACY TO DOSE) 1 EACH ASDIR IV (CKD) Sodium Chloride (SODIUM CHLORIDE 0.9% 1000 ML) 1,000 ML .Q10H IV Acetaminophen (TYLENOL) 650 MG Q4H PRN PRN PO Acetaminophen (TYLENOL) 650 MG Q6H PRN PRN RECTAL Al Hydrox/Mg Hydrox/Simethicone (MAALOX PLUS) 30 ML Q4H PRN PRN PO Albuterol/Ipratropium (DUONEB 2.5-0.5MG/3ML SOLN) 3 ML RTQ4H PRN PRN NEB Bisacodyl (DULCOLAX) 10 MG DAILY PRN PRN PO Calcium Carbonate (TUMS) 1,000 MG DAILY PRN PRN PO Clonidine HCl (CATAPRES) 0.1 MG Q6H PRN PRN PO Guaifenesin/Dextromethorphan (ROBITUSSIN-DM) 10 ML QID PRN PRN PO Hydralazine HCl (APRESOLINE) 10 MG Q4H PRN PRN IV Hydrocodone Bitart/Acetaminophen (NORCO 5/325 TABLET) 1 TAB Q4H PRN PRN PO Hydrocodone Bitart/Acetaminophen (NORCO 10/325 TABLET) 1 TAB Q4H PRN PRN PO Insulin Human Lispro (HUMALOG) See Admin Criteria ASDIR PRN SUBQ Magnesium Sulfate/Dextrose (MAGNESIUM SULFATE 1GM/D5W 100ML) 100 ML DAILY PRN PRN IV (CKD) Morphine Sulfate (morphine PF SYRINGE) 2 MG Q4H PRN PRN IV Ondansetron HCl (ZOFRAN) 4 MG Q4H PRN PRN IV Potassium Chloride (K-DUR) 40 MEQ DAILY PRN PRN PO Potassium Phos/Sodium Phos (PHOS-NAK PACKET) 2 PKT DAILY PRN PRN PO (CKD) Senna (SENOKOT) 1 TAB DAILY PRN PRN PO (CKD) Simethicone (MYLICON) 160 MG Q6H PRN PRN PO Trazodone HCl (DESYREL) 50 MG BEDTIME PRN PRN PO Physical ExamGeneral appearance: alert, awake, orientedMusculoskeletal: right lower back abscess open, some necrosis, and drainagePsychiatry: normal affect, normal judgment/insight, normal mood ResultsFindings/Data:Laboratory Tests 04/21 04/21 04/21 04/20 1540 1205 6949 2010 Chemistry POC Glucose (70 - 119 MG/DL) 230 H 268 H 299 H 325 H Radiology data:Recent Impressions:RADIOLOGY - XR ABDOMEN 1 V 04/21 1014 Report Impression - Status: SIGNED Entered: 04/21/2023 1047 impression:No bowel obstruction or ileus seen. Small amount of stool in the colon.Impression By: CriseldaAH26 - Juan Carlos Nowak MD Diagnosis, Assessment PlanHospital course to date:back abscess -- wound caresmall residule fluid/hematoma in RLQ from appendectomy -- no drainaged recommended local wound care with BID packing changes, d/c planning, questions answered at 1759 RPT #:[id number] OF REPORTPRProgress yymy9541-41-36C33:47:00B.[id number] Available for patient wcoaIBYAJJVWYTBDUJ6618-37-43N33:00:[address] [facility] 2023-04-21 17:37:00 [id number] vBQJ NBewU9gGjiFTLIQ6OQcfPjAMFIGLOdEi4825-74-62E2 7:37:00 [facility]DT PROGRESS NOTEREPORT#:[id number] REPORT STATUS: SignedREPORT INITIALIZATION DATE:04/21/23 TIME: 1736 PATIENT: BRIGHT SALAZAR UNIT #: [id number]#: [id number] [facility] [birth year] AGE: 57 SEX: M ATTEND: Kiel Gardiner AUTHOR: Kiel Fischer MDREPT SERVICE DT/TIME: 04/21/231736* ALL edits or amendments must be made on the electronic/computer document * Progress NoteProgress [id number] at 1738 RPT #:[id number] OF REPORTPRProgress tjzo1137-93-80W94:37:00B.[id number] Available for patient eldmSVKPKQQEUGWUER7290-78-50D18:40:[address] [facility] 2023-04-21 17:37:00 [id number]bzgG Pb oQPKzj0jfpJ3e/qMWsDX0Kmvy+qG5m344470-38-26J8 7:37:073328-9256 [place] [address] PATIENT NAME: BRIGHT SALAZAR ADMIT DATE: 04/19/23ACCOUNT NO: [id number] [facility]GE[facility] 57 REPORT TYPE: PROGRESS NOTE SEX: M ADMITTING PHYSICIAN:Kiel Gardiner MD ATTENDING PHYSICIAN:Kiel Gardiner MD DATE: 04/21/2023 SUBJECTIVE: Mr. Salazar is doing a lot better, however, he says that he is still having pain. He said that he had a lot of drainage coming out and it soiled his bedsheet and they had to change it. Dr. Baker would like to have thesurgeon to reevaluate the case. I have requested Dr. Pierce to see whether [facility] reeblvaluate that. PHYSICAL EXAMINATIONVITAL SIGNS: Currently, vital signs are stable.HEENT: Shows no icterus. No pallor.LUNGS: Clear to auscultation. ASSESSMENT AND PLAN: The patient has right back abscess, looked like a carbuncle. The patient was put on broad-spectrum antibiotics. The cultures were not sent. Dr. Pierce has evaluated the patient and recommended conservative treatment, but Infectious Disease would like to reevaluate the case. I will request Dr. Pierce if we can revisit the case. Dictated By: Kiel Fischer MD Date Dictated: 04/21/2023 17:37:32Date Transcribed: 04/21/2023 18:07:47AB/Donnie #: [id number] ID: [id number] by Kiel Fischer MD On 05/14/2023 02:49:58 PM at 0249 PATIENT NAME: BRIGHT SALAZAR wgsl4466-08-14T11:07:00B.[id number] vailable for patient ajinZJFKBOBEUJNRDI6360-53-46N16:50:49 [facility] 2023-04-21 08:49:00 [id number]/hCoFwJZG8NQlPIZ/vx5bdu6L8mZ IHLv jhE9rHZuL7/Wl2t22lYvn/GkgVYI2/123607-28-49C0 8:49:933058-9454 [place] [address] PATIENT NAME: BRIGHT SALAZAR ADMIT DATE: 04/19/23ACCOUNT NO: [id number] ROOM NO: [facility] AGE: 57 REPORT TYPE: CONSULTATION REPORT SEX: M ADMITTING PHYSICIAN:Kiel Gardiner MD ATTENDING PHYSICIAN:Kiel aGrdiner MD CONSULTATION DATE: INFECTIOUS DISEASE CONSULTATION Status post limited I and D for the back abscess. The patient with poorly controlled diabetes and the skin and soft tissue infection. No cultures are available of the wound. Blood cultures are negative. The patient still with some drainage. The patient remains on antibiotic therapy. Overall, generally stable. Blood sugars are still out of control. Sed rate is 43. White blood count 2 days ago was 12.8. The patient again still with induration and some redness, but not much changed since yesterday's exam. Await surgical reevaluation. Continue antibiotics. Anthony put in for a wound culture if not already done and reassess. Dictated By: Torie Baker MD Date Dictated: 04/21/2023 08:49:58Date Transcribed: 04/21/2023 09:47:51ISIS/EDWIN/Kumar #: [id number] ID: [id number] by Torie Baker MD On 04/23/2023 08:58:18 AM at 0858 PATIENT NAME: BRIGHT SALAZAR :47:0 0B.[id number] for patient nrrjJDMJCVNHLOZHXJ6985-98-83C41:58:[address] [facility] 2023-04-20 20:06:00 [id number]+Ebdyky5 gLVp e0n9xLp4PnitxoYHqtdmOzuWHLEKWr0A2755-35-61R7 0:06:836902-2703 [place] [address] PATIENT NAME: BRIGHT SALAZAR ADMIT DATE: 04/19/23ACCOUNT NO: [id number] ROOM NO: B345 AGE: 57 REPORT TYPE: CONSULTATION REPORT SEX: M ADMITTING PHYSICIAN:Kiel Gardiner MD ATTENDING PHYSICIAN:Kiel Gardiner MD CONSULTATION DATE: 04/20/2023 REQUESTING PHYSICIAN: Kiel Fischer MD HISTORY OF PRESENT ILLNESS: The patient is a 57-year-old gentleman admitted to the hospital with worsening painful swelling on his back, diagnosed with abscess, the patient had been seen as outpatient at his PCP; however, was referred to the hospital for admission. The patient was seen in the emergency room. The ERP did incision and drainage and packing. General surgery has since been consulted. Their note is reviewed. The patient denies any high fever or chills. He has a history of surgical woundinfection following surgery on his neck post right carotid endarterectomy with wound dehiscence. Although, no obvious microbiology was determined, for some reason, the patient was treated for 6 weeks of IV antibiotics initially at the hospital and then at the correction, completing sometime in December. He has also had a history of other skin and soft tissue infection in his upper extremity in 2011. Other than that, he is stable. The patient has a history of diabetes, heart disease, coronary artery disease, hypertension, hyperlipidemia, peripheral vascular disease. He has had a historyof perhaps loss of limb, diabetic foot wounds and so forth. Alcohol and tobacco use history is reviewed. MEDICATIONS: List is reviewed. He is on vancomycin, Rocephin. ALLERGIES: THE PATIENT HAS INTOLERANCE TO STATINS. PHYSICAL EXAMINATION:GENERAL: Well-appearing middle-aged gentleman, appears older than stated age.VITAL SIGNS: 36 odd degrees temperature. PATIENT NAME: BRIGHT SALAZAR HEENT: Oropharynx is dry.NECK: Supple.LUNGS: Decreased breath sounds.ABDOMEN: He does have an obvious abscess in the back with packing in place. There is still redness, induration and tenderness in place consistent with abscess. LABORATORY DATA: Labs available are reviewed. White count is elevated at 12.8. His creatinine is 1.02. Blood cultures and perhaps wound cultures have been done, pending negative. RADIOLOGY: He had a CT abdomen and pelvis, which shows enhancing fluid collection, likely abscess. Unfortunate gentleman with recurrent skin and soft tissue infection in the setting of poorly controlled diabetes. The patient is on broad-spectrum coverage. In the vancomycin is what is needed, we will perhaps deescalate other antimicrobials in the next day or two. The patient has been seen by surgery, but in my opinion, the patient may need toreevaluate for further I and D. We will observe clinically and reassess. Thank you Dr. Fischer for the referral. Dictated By: Torie Baker MD Date Dictated: 04/20/2023 20:06:03Date Transcribed: 04/20/2023 20:47:13ISIS/Bon #: [id number] ID: [id number] by Torie Baker MD On 04/23/2023 08:58:17 AM at 0858 PATIENT NAME: BRIGHT SALAZAR :47:0 0B.[id number] for patient xehaWHJDQHMYXJQZQP4692-18-43B58:58:56 [facility] 2023-04-20 15:06:00 [id number]Ay Q2tj k8vyrmP/sfQgLppnlk+hLc+AaBflpo9T8339-84-35K5 5:06:00 [facility] ([facility])General Surgery Consult NoteREPORT#:[id number] REPORT STATUS: SignedREPORT INITIALIZATION DATE:04/20/23 TIME: 150 PATIENT: BRIGHT SALAZAR UNIT #: [id number]#: [id number] [facility] AGE: 57 SEX: M ATTEND: Kiel Gardiner MDADM AUTHOR: Jhonathan Pierce MDREPT SERVICE DT/TIME: 04/20/23 1506* ALL edits or amendments must be made on the electronic/computer document * History of Present IllnessReason for consult:intraabdominal fluid collection, s/p lap appyChief complaint:back/chest painPCP:PCP: Tony Adams MD HPI:57 y/o WM s/p lap appendectomy 11/2022 presented to ED with c/o back, chest, and RLQ pain. States all pain began about 3-4 days ago. States it is constant and dull. Denies fever/chills, N/V. Seen in ED and had back abscess drained. Ct abd/pelvis with <2cm loculated fluid collection near appendiceal stump. Denies diarrhea/constipation. History - Adult longitudinalPast medical history:Reports: Coronary artery disease, Diabetes mellitus, Hypertension, Dyslipidemia. Additional medical history:DM 2 CAD, multivessel LVEF 50-55% Hypertension Hyperlipidemia Poor medical follow through and complaince. PVD Diabetic Neuropathy Lt BKA infection req'ing multiple rounds of antibiotics andhospitalizations. Falls Atherosclerosis to the thoracic aorta, coronary arteries, abdominal aortaand branching vessels Calcified granulomas RLL Degenerative disc disease L3-L5 and cervical spine Osteophytosis lower thoracic spine Right ICA stenosis 09/26/2022 Right MCA CVA 09/26/22 Indeterminate right parotid lesionsPast surgical history:Reports: CABG (x4), Cholecystectomy. Additional surgical history:R CEA 10/08/22 CABG and PCI 2009 Multiple toe amputations transmetatarsal amputation 2020 Left BKA 2 stage 2Additional family history:Family history of diabetes, no bleeding or clotting dyscrasiasAlcohol use: Last drink was rug use: Denies recreational drugsSmoking status for patients 13 years old or older: Current some day smokerDate last smoked: 04/20/23Packs per day: 1Years smoked: 50Pack years: 50Additional social history:Lives alone. Stated his sister left so he is alone. Concerned he has not utilities on at his house.Allergies:Coded Allergies:Nfxlwbo-JID-FgO Reductase Inhibitor (Intermediate, JOINT PAIN 10/22/22) JOINT PAIN Review of SystemsSkin:other (R lower back abscess). GI:Reports: abdominal pain (RLQ, dull). Denies: constipation, diarrhea, nausea, vomiting. All systems rev neg: except as marked Objective Physical ExamVS/I OLast Documented: Result Date Time Pulse Ox 95 04/20 1127 B/P 145/81 04/20 1127 B/P Mean 102.3 04/20 1127 O2 Delivery Room air 04/20 112 Temp 97.9 04/20 1127 Pulse 80 04/20 1127 Resp 14 04/20 1127 Vital Signs Date Temp Pulse Resp B/P B/P Mean Pulse Ox FiO2 04/19-04/20 97.5-97.9 80-103 14-30 121-150/63-83 84-109 95-100 24 hour I O ending at 0700: 04/20 0700 04/19 1900 Intake Total 400 Output Total 75 Balance 325 Intake, Oral 400 Number 0 Bowel Movements Number Voids 1 Output, Urine 75 Patient 87 kg 84.091 kg Weight Weight Bed scale Standing scale Measurement Method PATIENT WEIGHT: Weight (lb): 191Weight (oz): 12.83Weight (kg): 87.000 General appearance: alert, awake, oriented, no acute distress, pleasant, conversational, mental status normal, no respiratory distressWound/incision: Location:R lower back Site condition: abscess dressing intactCardiovascular: normal heart sounds, regular rate and rhythmRespiratory: aerating well, clear to auscultationAbdomen: non-tender, soft, no distention, no guarding, no hernia, no reboundNeuro/RN MATERNITY: alert, oriented x 3Psychiatry: normal affect, normal judgment/insight, normal mood ResultsFindings/Data:Laboratory Tests: 04/20 04/20 04/20 1126 0425 0315 Chemistry POC Glucose (70 - 119 MG/DL) 285 H 313 H Triglycerides (0 - 150 MG/DL) 457 H Cholesterol (133 - 200 MG/DL) 181 LDL Cholesterol Measurd (0 - 129 MG/DL) 64 Non-HDL Cholesterol (<130 mg/dL) 155 H HDL Cholesterol (40 - 59 MG/DL) 26 L LDL/HDL Ratio (1.48 - 3.22 Avg Ratio) 2.46 Cholesterol/HDL Ratio (0 RATIO) 6.96 Specimen Appearance (1 NORMAL Index/DL) 1 NORMAL <2 MG Specimen Hemolysis (1 NORMAL Index/DL) 4 SMALL 50-200 MG H 04/19 1859 Chemistry Lactic Acid (0.4 - 2.0 mmol/L) 1.1 Troponin I High Sens (0 - 45 ng/L) 10 Urines Urine Color (YELLOW DESCRIPT) YELLOW Urine Appearance (CLEAR DESCRIPT) CLEAR Urine pH (4.6 - 8.0 pH UNITS) 6.0 Ur Specific [place] (1.001 - 1.035 SG) >1.050 H Urine Protein ((NEG) <30 mg/dL) 70 (1+) H Urine Glucose (UA) (0 (NORMAL) mg/dL) OVER >1000 (4+) H Urine Ketones ((NEG) 0 mg/dL) NEGATIVE (0) Urine Blood (0 (NEG) mg/dL) NEGATIVE (0.00) Urine Nitrite (NEG SCREEN) NEGATIVE (0) Urine Bilirubin ((NEG) 0 mg/dL) NEGATIVE (0.0) Urine Urobilinogen ((NORM)<2.0 mg/Dl) NORMAL (0) Ur Leukocyte Esterase ((NEG) 0 Leuk/mcL) NEGATIVE (0) Urine RBC (0 - 3 #RBC/HPF) 0-3 Urine WBC (0 - 3 #WBC/HPF) 0-3 Urine Bacteria (NONE - FEW /HPF) TRACE >0 Hyaline Casts (0 - 3 #/LPF) 0-5 Urine Mucus (NONE /LPF) RARE 04/19 04/19 1729 1729 Chemistry Sodium (133 - 144 mmol/L) 130.0 L Potassium (3.5 - 5.1 mmol/L) 4.1 Chloride (95 - 105 mmol/L) 97 Carbon Dioxide (21 - 32 mmol/L) 29 Anion Gap (4.0 - 15.0 GAP calc) 4.0 BUN (7 - 18 MG/DL) 19 H Creatinine (0.55 - 1.30 MG/DL) 1.02 Glomerular Filtr Rate (>60 estGFR) 86 Glucose (70 - 110 MG/DL) 305 H Calcium (8.5 - 10.1 MG/DL) 9.6 Total Bilirubin (0.00 - 1.00 MG/DL) 0.25 Direct Bilirubin (0.00 - 0.30 MG/DL) < 0.10 Indirect Bilirubin (0.2 - 1.3 MG/DL) 0.25 AST (15 - 37 Unit/L) 29 ALT (12 - 78 Unit/L) 38 Total Alk Phosphatase (45 - 117 Unit/L) 107 Troponin I High Sens (0 - 45 ng/L) 10 Total Protein (6.4 - 8.2 G/DL) 9.9 H Albumin (3.4 - 5.0 G/DL) 3.4 Lipase (114 - 286 Unit/L) 581 H Specimen Appearance (1 NORMAL Index/DL) 1 NORMAL <2 MG Specimen Hemolysis (1 NORMAL Index/DL) 1 NORMAL <10 MG Coagulation D-Dimer (0 - 500 FEUng/mL) 1633 H Hematology WBC (4.1 - 12.1 K/mm3) 12.8 H RBC (3.8 - 5.5 M/mm3) 6.03 H Hgb (10.6 - 15.8 G/DL) 17.3 H Hct (31.8 - 47.4 %) 50.1 H MCV (80.1 - 101.1 fL) 83.1 MCH (25.3 - 35.3 pg) 28.7 MCHC (32.7 - 35.1 G/DL) 34.5 RDW (12.2 - 16.4 %) 13.6 Plt Count (155 - 337 K/mm3) 360 H MPV (7.6 - 10.4 fL) 9.8 Microbiology: Date/Time Procedure - Status Source Growth 04/19 2025 Blood Culture - RES BLOOD 04/19 2025 Blood Culture - RES BLOOD 04/19 2025 Blood Culture - RES BLOOD 04/19 2025 Blood Culture - RES BLOOD Recent Impressions:CAT SCAN - CT ABD PELVIS W/CONT 04/19 1835 Report Impression - Status: SIGNED Entered: 04/19/20231910 IMPRESSION: No evidence of pulmonary embolus or other acute vascular abnormalityEnhancing fluid collection in the soft tissues of the mid back, likelyan abscessPlease see detailed findings above Impression By: MARY GRACE Clifton SCAN - CTA CHEST FOR PE 04/19 1835 Report Impression - Status: SIGNED Entered: 04/19/20231910 IMPRESSION: No evidence of pulmonary embolus or other acute vascular abnormalityEnhancing fluid collection in the soft tissues of the mid back, likelyan abscessPlease see detailed findings above Impression By: Gurvinder Perry MD Results: labs reviewed, vital signs reviewed, vital signs stable, CT results reviewed Diagnosis, Assessment PlanProblem List/A P: 1. Post-operative pain Free Text DxA P NotesFree Text DxA P Notes:Small fluid collection in RLQ near appendiceal staple line. This is small and not significant- no evidence of inflammation around collection. Abscess drained, pack site with wet to dry dressings. IV antibiotics. Will d/c with Dr. Snow see when he returns tomorrow. OK for diet as tolerated. Questions answered at 1512 RPT #:[id number] OF REPORTKBAjimhtwjydbc9660-70-63W05:06:00B. [id number] for patient rvjtYTBLYUOJAXDEQV6885-52-48V79:13:[address] [facility] 2023-04-20 14:50:00 [id number]jEON /K0c uBn1OTspdXPp4oooGGZGnoDlluOrw8Y47575-85-42R9 4:50:00 [facility] [place] ([facility])DT PROGRESS NOTEREPORT#:[id number] REPORT STATUS: SignedREPORT INITIALIZATION DATE:04/20/23 TIME: 1450 PATIENT: BRIGHT SALAZAR UNIT #: [id number]#: [id number] ROOM/BED: [facility]-WDOB: [birth year] AGE: 57 SEX: M ATTEND: Kiel Gardiner [facility] AUTHOR: Kiel Fischer MDREPT SERVICE DT/TIME: 04/20/23 1450* ALL edits or amendments must be made on the electronic/computer document * Progress NoteProgress [id number] at 1450 [facility] #:[id number] OF REPORTPRProgress riiv1011-20-88A26:50:00B.[id number] Available for patient vxbrCRIQQFAHXODDUO2789-77-36C28:51:[address] [facility] 2023-04-20 14:50:00 [id number]/YX0 /0Wp rjTSupwFYS4kV/Fdzg7XX9qt3IBjvfWq3891-84-09C2 4:50:09[address]-[address] [place] [address] PATIENT NAME: BRIGHT SALAZAR ADMIT DATE: 04/19/23ACCOUNT NO: [id number] ROOM NO: [facility] AGE: 57 REPORT TYPE: PROGRESS NOTE SEX: M ADMITTING PHYSICIAN:Kiel Gardiner MD ATTENDING PHYSICIAN:Kiel Gardiner MD DATE: 04/20/2023 SUBJECTIVE: Mr. Salazar is doing fairly better. He said that he is not havingany further chest pain. He has had a previous workup for the same. He is not running any temperature, but he is having quite a bit of back pain from that abscess that was drained. Unfortunately, no cultures have been sent, so not so sure what to come out of it. Blood cultures were sent and I and D attempted at the bedside. PHYSICAL EXAMINATION:VITAL SIGNS: Currently, vital signs are stable.HEENT: Shows no icterus. No pallor.LUNGS: Relatively clear to auscultation.ABDOMEN: Soft. The abscess on the back looks like either a carbuncle or a sebaceous cyst to me. ASSESSMENT AND PLAN: The patient with right back abscess looks like a carbuncleto me. The patient is on broad-spectrum antibiotics. I will wait for Dr. Pierce to see whether it is going to take him to the OR or check on the bedside to see whether he needs another I and D. In the meantime, antibiotics will be initiated. ID consult has been placed for the duration of antibiotics. We will see how he does with this. In the meantime, we will resume his home medications, put him on a sliding scale coverage and go from there. Dictated By: Kiel Fischer MD Date Dictated: 04/20/2023 14:50:39Date Transcribed: 04/20/2023 15:34:24AB/KEITH/Kumar #: [id number] ID: [id number] by Kiel Fischer MD On 05/14/2023 02:49:58 PM at 0249 PATIENT NAME: BRIGHT SALAZAR [id number]:00B.[id number] vailable for patient [id number]:50:[address] [facility] 2023-04-20 01:23:00 [id number]/ CCN3 [id number]+[id number] 1:23:00 [facility] ([facility])Pharmacy Prog.Note-VancomycinREPORT#:[id number] REPORT STATUS: SignedREPORT INITIALIZATION DATE:04/20/23 TIME: 122 PATIENT: BRIGHT SALAZAR UNIT #: [id number]#: [id number] [facility]GE[facility] 57 SEX: M ATTEND: Kiel Gardiner AUTHOR: Tiffany Perez RPhREPT SERVICE DT/TIME: 04/20/23 0123* ALL edits or amendments must be made on the electronic/computer document * Vancomycin Vancomycin Medication TherapyCurrent therapy:CONSULT PER PCPLabs:Laboratory Test : 04/19 1729 Chemistry BUN (7 - 18 MG/DL) 19 H Creatinine (0.55 - 1.30 MG/DL) 1.02 Hematology WBC (4.1 - 12.1 K/mm3) 12.8 H Microbiology:04/19 2025 BLOOD: Blood Culture - RECD106/19 2024 BLOOD: Blood Culture - RECD106/19 2024 BLOOD: Blood Culture - RECD106/19 2024 BLOOD: Blood Culture - RECD Treatment plan: START BID DOSINGRegimen:VANC 1.5GM N54NLjgfwk up: Lab:LEVEL ORDERED at 0123 RPT #:[id number] OF REPORTPRProgress [id number]:23:00B.[id number] Available for patient kqpxIOAKVRXZJRFDTA7525-61-06P16:24:[address] [facility] 2023-04-20 01:02:00 [id number] q9Io [id number]+JrojiuubZZ6NBDTlkj0739-82-28X4 1:02:00 [facility] PhysicalREPORT#:[id number] REPORT STATUS: SignedREPORT INITIALIZATION DATE:04/20/23 TIME: 101 PATIENT: BRIGHT SALAZAR UNIT #: [id number]#: [id number] [facility] AGE: 57 SEX: M ATTEND: Kiel Gardiner AUTHOR: Kiel GardinerEPT SERVICE DT/TIME: 04/20/23101* ALL edits or amendments must be made on the electronic/computer document * See AddendumHistory of Present Illness HPIChief complaint:Chest painPCP:PCP: Tony Adams MD HPI:This is a 57-year-old gentleman with past medical history of diabetes peripheralvascular disease left BKA he was brought into the ER because of chest pain rightflank pain and abdominal pain no nausea no vomiting no diarrhea no hematemesis melena or blood in stool denies cough congestion denies loss of consciousness seizure activity he was found to have abscess area at the mid back which was drained by ER MD started on antibiotics and was transferred to the floor for further management History Past Medical Surgical HxAdditional medical history:DM 2CAD, multivesselLVEF 50-55%HypertensionHyperlipidemiaPoor medical follow through and complaince.PVDDiabetic NeuropathyLt BKA infection req'ing multiple rounds of antibioticsandhospitalizations.FallsAtherosc lerosis to the thoracic aorta, coronary arteries, abdominalaortaand branching vesselsCalcified granulomas RLLDegenerative disc disease L3-L5 and cervical spineOsteophytosis lower thoracic spineRight ICA stenosis 09/26/2022Right MCA CVA 09/26/22Indeterminate right parotid lesionsAdditional surgical history:R CEA 10/08/22 CABG and PCI 2009 Multiple toe amputations transmetatarsal amputation 2020 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 Stated his sister left so he is alone. Concerned he has not utilities on at his house. Medication/Allergy-Vaccine HxMedications:Laboratory Tests: 04/19 1859 Chemistry Lactic Acid (0.4 - 2.0 mmol/L) 1.1 Troponin I High Sens (0 - 45 ng/L) 10 Urines Urine Color (YELLOW DESCRIPT) YELLOW Urine Appearance (CLEAR DESCRIPT) CLEAR Urine pH (4.6 - 8.0 pH UNITS) 6.0 Ur Specific [place] (1.001 - 1.035 SG) >1.050 H Urine Protein ((NEG) <30 mg/dL) 70 (1+) H Urine Glucose (UA) (0 (NORMAL) mg/dL) OVER >1000 (4+) H Urine Ketones ((NEG) 0 mg/dL) NEGATIVE (0) Urine Blood (0 (NEG) mg/dL) NEGATIVE (0.00) Urine Nitrite (NEG SCREEN) NEGATIVE (0) Urine Bilirubin ((NEG) 0 mg/dL) NEGATIVE (0.0) Urine Urobilinogen ((NORM)<2.0 mg/Dl) NORMAL (0) Ur Leukocyte Esterase ((NEG) 0 Leuk/mcL) NEGATIVE (0) Urine RBC (0 - 3 #RBC/HPF) 0-3 Urine WBC (0 - 3 #WBC/HPF) 0-3 Urine Bacteria (NONE - FEW /HPF) TRACE >0 Hyaline Casts (0 - 3 #/LPF) 0-5 Urine Mucus (NONE /LPF) RARE 04/19 04/19 1729 1729 Chemistry Sodium (133 - 144 mmol/L) 130.0 L Potassium (3.5 - 5.1 mmol/L) 4.1 Chloride (95 - 105 mmol/L) 97 Carbon Dioxide (21 - 32 mmol/L) 29 Anion Gap (4.0 - 15.0 GAP calc) 4.0 BUN (7 - 18 MG/DL) 19 H Creatinine (0.55 - 1.30 MG/DL) 1.02 Glomerular Filtr Rate (>60 estGFR) 86 Glucose (70 - 110 MG/DL) 305 H Calcium (8.5 - 10.1 MG/DL) 9.6 Total Bilirubin (0.00 - 1.00 MG/DL) 0.25 Direct Bilirubin (0.00 - 0.30 MG/DL) < 0.10 Indirect Bilirubin (0.2 - 1.3 MG/DL) 0.25 AST (15 - 37 Unit/L) 29 ALT (12 - 78 Unit/L) 38 Total Alk Phosphatase (45 - 117 Unit/L) 107 Troponin I High Sens (0 - 45 ng/L) 10 Total Protein (6.4 - 8.2 G/DL) 9.9 H Albumin (3.4 - 5.0 G/DL) 3.4 Lipase (114 - 286 Unit/L) 581 H Specimen Appearance (1 NORMAL Index/DL) 1 NORMAL <2 MG Specimen Hemolysis (1 NORMAL Index/DL) 1 NORMAL <10 MG Coagulation D-Dimer (0 - 500 FEUng/mL) 1633 H Hematology WBC (4.1 - 12.1 K/mm3) 12.8 H RBC (3.8 - 5.5 M/mm3) 6.03 H Hgb (10.6 - 15.8 G/DL) 17.3 H Hct (31.8 - 47.4 %) 50.1 H MCV (80.1 - 101.1 fL) 83.1 MCH (25.3 - 35.3 pg) 28.7 MCHC (32.7 - 35.1 G/DL) 34.5 RDW (12.2 - 16.4 %) 13.6 Plt Count (155 - 337 K/mm3) 360 H MPV (7.6 - 10.4 fL) 9.8 Microbiology: Date/Time Procedure - Status Source Growth 04/19 2025 Blood Culture - RECD BLOOD 04/19 2025 Blood Culture - RECD BLOOD 04/19 2025 Blood Culture - RECD BLOOD 04/19 2025 Blood Culture - RECD BLOOD Recent Impressions:CAT SCAN - CT ABD PELVIS W/CONT 04/19 1835 Report Impression - Status: SIGNED Entered: 04/19/20231910 IMPRESSION: No evidence of pulmonary embolus or other acute vascular abnormalityEnhancing fluid collection in the soft tissues of the mid back, likelyan abscessPlease see detailed findings above Impression By: MARY GRACE Clifton SCAN - CTA CHEST FOR PE 04/19 1835 Report Impression - Status: SIGNED Entered: 04/19/20231910 IMPRESSION: No evidence of pulmonary embolus or other acute vascular abnormalityEnhancing fluid collection in the soft tissues of the mid back, likelyan abscessPlease see detailed findings above Impression By: Gurvinder Perry MD Microbiology:04/19 2025 BLOOD: Blood Culture - RECD106/19 2024 BLOOD: Blood Culture - RECD106/19 2024 BLOOD: Blood Culture - RECD106/19 2024 BLOOD: Blood Culture - RECD Active Meds + DC'd Last 24 HrsAcetaminophen (TYLENOL) 650 MG Q4H PRN PRN PO Acetaminophen (TYLENOL) 650 MG Q6H PRN PRN RECTAL Al Hydrox/Mg Hydrox/Simethicone (MAALOX PLUS) 30 ML Q4H PRN PRN PO Albuterol/Ipratropium (DUONEB 2.5-0.5MG/3ML SOLN) 3 ML RTQ4H PRN PRN NEB Bisacodyl (DULCOLAX) 10 MG DAILY PRN PRN PO Calcium Carbonate (TUMS) 1,000 MG DAILY PRN PRN PO Clonidine HCl (CATAPRES) 0.1 MG Q6H PRN PRN PO Dextrose/Water (DEXTROSE 50%-WATER) 25 ML ASDIR PRN IV (CKD) Glucagon (GLUCAGON) 1 MG ASDIR PRN IM Glucose Polymer (GLUTOSE) 15 GM ASDIR PRN PO Guaifenesin/Dextromethorphan (ROBITUSSIN-DM) 10 ML QID PRN PRN PO Hydralazine HCl (APRESOLINE) 10 MG Q4H PRN PRN IV Hydrocodone Bitart/Acetaminophen (NORCO 5/325 TABLET) 1 TAB Q4H PRN PRN PO Hydrocodone Bitart/Acetaminophen (NORCO 10/325 TABLET) 1 TAB Q4H PRN PRN PO Insulin Human Lispro (HUMALOG) See Admin Criteria ASDIR PRN SUBQ Magnesium Sulfate/Dextrose (MAGNESIUM SULFATE 1GM/D5W 100ML) 100 ML DAILY PRN PRN IV (CKD) Morphine Sulfate (morphine PF SYRINGE) 2 MG Q4H PRN PRN IV Ondansetron HCl (ZOFRAN) 4 MG Q4H PRN PRN IV Potassium Chloride (K-DUR) 40 MEQ DAILY PRN PRN PO Potassium Phos/Sodium Phos (PHOS-NAK PACKET) 2 PKT DAILY PRN PRN PO (CKD) Senna (SENOKOT) 1 TAB DAILY PRN PRN PO (CKD) Simethicone (MYLICON) 160 MG Q6H PRN PRN PO Trazodone HCl (DESYREL) 50 MG BEDTIME PRN PRN PO Fentanyl Citrate (SUBLIMAZE) 50 MCG ONCE ONE IV (DC) Vancomycin/Sodium Chloride (Vancomycin 1,750 mg/500 mL) 500 ML X1ED STA IV (DC) Fentanyl Citrate (SUBLIMAZE) 50 MCG X1ED STA IV (DC) Vancomycin HCl (VANCOMYCIN 1,000) 1,750 MG X1ED STA IV (DC) Sodium Chloride (SODIUM CHLORIDE 0.9%) 250 MLCeftriaxone Sodium (ROCEPHIN) 1 GM X1ED STA IV (DC) Sterile Water (STERILE WATER) 10 MLSodium Chloride (NORMAL SALINE 250 ML) 250 ML X1ED STA IV (DC) Morphine Sulfate (MORPHINE SULFATE) 4 MG X1ED STA IV (DC) Ondansetron HCl (ZOFRAN) 4 MG X1ED STA IV (DC) Iopamidol (ISOVUE-370) 100 ML .STK-MED ONE IV (DC) Recent Impressions:CAT SCAN - CT ABD PELVIS W/CONT 04/19 1835 Report Impression - Status: SIGNED Entered: 04/19/20231910 IMPRESSION: No evidence of pulmonary embolus or other acute vascular abnormalityEnhancing fluid collection in the soft tissues of the mid back, likelyan abscessPlease see detailed findings above Impression By: MARY GRACE Clifton SCAN - CTA CHEST FOR PE 04/19 1835 Report Impression - Status: SIGNED Entered: 04/19/20231910 IMPRESSION: No evidence of pulmonary embolus or other acute vascular abnormalityEnhancing fluid collection in the soft tissues of the mid back, likelyan abscessPlease see detailed findings above Impression By: Gurvinder Perry MD 04/20 0700 04/19 2300 04/19 1500 Intake Total Output Total Balance Patient 87 kg 84.091 kg Weight Weight Bed scale Standing scale Measurement Method Home Medications:ZOLPIDEM (AMBIEN) 10 MG PO BEDTIME PRN PRN SLEEP METOPROLOL SUCC XL (TOPROL XL) 50 MG PO DAILY VANCOMYCIN (VANCOCIN) 1 EACH IV ASDIR MEROPENEM (MERREM) 500 MG IV Q6H VANCOMYCIN (VANCOCIN) 1.25 GM IV Q12H HYDROcodone/APAP (HYDROcodone/APAP 10/325) 1 TAB PO Q4H PRN PRN pain MORPHINE SULFATE (MORPHINE) 15 MG PO Q8HPRN PRN pain 7-10 CYCLOBENZAPRINE HCL (FLEXERIL) 5 MG PO TID PRN PRN MUSCLE SPASMS CLOPIDOGREL (PLAVIX) 75 MG PO DAILY EZETIMIBE (ZETIA) 10 MG PO BEDTIME ASPIRIN 81 MG PO DAILY QUEtiapine (SEROquel) 50 MG PO BID GABAPENTIN (NEURONTIN) 400 MG PO TID SENNOSIDES/DOCUSATE SOD (JOS-COLACE 8.6/50 MG) 1 UDTAB PO BID PRN DME - INSULIN SYRINGES (INSULIN SYRINGES) EACH MISC ASDIR DME - GLUCOSE LANCETS (GLUCOSE LANCETS) EACH MISC DAILY DME - GLUCOSE METER (GLUCOSE METER) EACH MISC ASDIR DME - GLUCOSE STRIPS (GLUCOSE STRIPS) EACH MISC DAILY INSULIN NPH HUMAN RECOM (HumuLIN N) 35 UNITS SUBQ BID MEALS MORPHINE SULFATE (MORPHINE) 15 MG PO Q4H PRN PRN pain 7-10 Allergies:Coded Allergies:Kgpnnjr-OKP-NjZ Reductase Inhibitor (Intermediate, JOINT PAIN 10/22/22) JOINT PAIN Review of SystemsConstitutional:Denies: chills, fatigue, fever, generalized weakness, lethargy, malaise, recent wt loss, other. Respiratory:Denies: AZEVEDO (dyspnea on exertion), hemoptysis, non productive cough, parox nocturnal dyspnea, pleurisy, pleuritic pain, pneumonia, productive cough (sputum), SOB, wheezing, other. Cardiovascular:Reports: chest pain. Denies: AZEVEDO (dyspnea on exertion), edema, orthopnea, palpitations, parox nocturnal dyspnea, other. GI:Reports: abdominal pain. :Reports: flank pain. Neuro:Denies: bladder dysfunction, bowel dysfunction, change in LOC, confusion, dizziness, focal weakness, gait problem, headache, lightheaded, numbness, seizure, slurred speech, spinning sensation, syncope, unable to speak, vision change, weakness, other. OBJECTIVEVS/I O:Vital Signs Date Temp Pulse Resp B/P B/P Mean Pulse Ox FiO2 04/19 36.4 84-103 16-30 121-150/63-82 84-109 96-100 Last Documented: Result Date Time Pulse Ox 96 04/19 2345 B/P 142/82 04/19 2345 B/P Mean 101.9 04/19 2345 Temp 36.4 04/19 2345 Pulse 91 04/195 Resp 16 04/19 2345 O2 Delivery Room air 04/19 1659 24 hour I O ending at 0700: 04/20 0700 04/19 1900 Intake Total Output Total Balance Patient 87 kg 84.091 kg Weight Weight Bed scale Standing scale Measurement Method Patient Weight and BMI Weight (kg): 87.000 BMI: 26.0 General appearance: awakeCardiovascular: normal heart soundsRespiratory: decreased breath soundsAbdomen: softExtremities: L BKANeuro/RN MATERNITY: alert Diagnosis, Assessment PlanFree Text A P:Back abscessS/p I DContinue antibioticsCulture Chest painAspirin beta-blockerCardiac enzymes Diabetes mellitus with hyperglycemiaContinue home medicationInsulin sliding scale HypertensionOptimize control PVDS/p left BKAModify risk factors DVT prophylaxisLovenoxAdvanced directive discussedMedication reviewed and reconciledI will sign off at 6 AM today further management by incoming thereafterBefore midnight at 0108 Addendum 1: 04/20/23 011 by Kiel Gardiner MD Mild pancreatitisContinue IV fluidsPain controlLiquid dietLipid profile at 0111 RPT #:[id number] OF REPORTHPHistory and physical fseoqygujfl8111-40-47L56:02:00B.[id number] -0013AVAvailable for patient [id number]-52E22:09:[address] [facility] 2023-04-19 20:23:00 [id number] qHL+ GmL9QwDA+[id number] 0:23:00 [facility] ([facility])EMERGENCY PROVIDER REPORTREPORT#:[id number] REPORT STATUS: SignedDATE:04/19/23 TIME: 2022 PATIENT: BRIGHT SALAZAR UNIT #: [id number]#: [id number] ROOM/BED: [facility]-WAGE: 57 SEX: M PCP PHYS: Tony Adams MDSERVICE AUTHOR: Pooja Crowe MD * ALL edits or amendments must be made on the electronic/computer document * HPI-General Illness Free Text HPI NotesFree Text HPI Dcnrv78-pzws-vsv male presents with chest pain described as pressure, abdominal pain back pain for 1 week. With associated dyspnea and nausea frequency no fevers nochills no diarrhea no dysuria. Vital signs reviewed, stable GeneralInitial Greet Date/Time 04/19/23 1705 PresentationChief Complaint Back pain, Chest pain Past Medical History - AdultStated Complaint CP/ABD PAIN/STAPH INFECTION ON BACKAllergiesCoded Allergies:Wqlnkmk-PXG-QhM Reductase Inhibitor (Intermediate, JOINT PAIN 10/22/22) JOINT PAIN Home MedicationsActive ScriptsMETOPROLOL SUCC XL (TOPROL XL) 50 MG PO DAILY 30 Days #30 TAB Prov: 11/19/22CLOPIDOGREL (PLAVIX) 75 MG PO DAILY CLOPIDOGREL (PLAVIX) 75 MG PO DAILY #30 TAB Prov: 10/24/22ASPIRIN 81 MG PO DAILY ASPIRIN 81 MG PO DAILY #100 TAB Prov: 10/24/22DME - INSULIN SYRINGES (INSULIN SYR[facility]ES) [facility] - INSULIN SYRINGES (INSULIN SYRINGES) [facility] #100 Prov: 10/24/22DME - GLUCOSE LANCETS (GLUCOSE LANCETS) EACH MISC DAILY DME - GLUCOSE LANCETS (GLUCOSE LANCETS) EACH MISC DAILY #100 Prov: 10/24/22DME - GLUCOSE METER (GLUCOSE METER) [facility] D[facility] - GLUCOSE METER (GLUCOSE METER) [facility] #1 Prov: 10/24/22DME - GLUCOSE STRIPS (GLUCOSE STRIPS) EACH MISC DAILY DME - GLUCOSE STRIPS (GLUCOSE STRIPS) EACH MISC DAILY #100 Prov: 10/24/22 Reported MedicationsZOLPIDEM (AMBIEN) 10 MG PO BEDTIME PRN PRN SLEEP Additional Medical HistoryDM 2 CAD, multivessel LVEF 50-55% Hypertension Hyperlipidemia Poor medical follow through and complaince. PVD Diabetic Neuropathy Lt BKA infection req'ing multiple rounds of antibiotics andhospitalizations. Falls Atherosclerosis to the thoracic aorta, coronary arteries, abdominal aortaand branching vessels Calcified granulomas RLL Degenerative disc disease L3-L5 and cervical spine Osteophytosis lower thoracic spine Right ICA stenosis 09/26/2022 Right MCA CVA 09/26/22 Indeterminate right parotid lesionsAdditional Surgical HistoryR CEA 10/08/22 CABG and PCI 2009 Multiple toe amputations transmetatarsal amputation 2020 Left BKA 2 stage 04/2022 Physical Exam Vital SignsVital SignsFirst Documented: Result Date Time Pulse Ox 98 04/19 1659 B/P 121/81 04/19 1659 B/P Mean 94 04/19 1659 O2 Delivery Room air 04/19 1659 Temp 97.5 04/19 1659 Pulse 103 04/19 1659 Resp 16 04/19 1659 Last Documented: Result Date Time Pulse Ox 99 04/19 2030 B/P 147/73 04/19 2030 B/P Mean 102 04/19 2030 Pulse 88 04/19 2030 Resp 30 04/19 2030 O2 Delivery Room air 04/19 1659 Temp 97.5 04/19 1659 Review of Vital Signs Reviewed Free Text PE NotesFree Text PE NotesGeneral/constitutional: Alert, no acute distressHead: Normocephalic, grossly atraumaticEyes: Normal conjunctiva, no periorbital swelling or erythemaNeck: Supple, no swelling or massesEars/nose/throat: Moist mucous membranes, no facial swellingRespiratory: No respiratory distress, breath sounds equal bilaterally, no wheezes, no rales, no rhonchiCardiovascular: Normal rate, regular rhythm, no murmur auscultatedAbdomen/GI: Soft, tenderMusculoskeletal: No lower extremity edema, no deformitySkin: Warm, dry, abscess to mid lateral backNeurologic: Appropriately alert and oriented, no motor deficits, no sensory deficitsPsychiatric: Normal mood, normal affect, cooperative Interpretation Diagnostics Lab Results InterpretationResultsLaboratory Tests 04/19/23 1729:[Embedded Image Not Available]Laboratory Tests: 04/19 1729Chemistry Lactic Acid (0.4 - 2.0 mmol/L) 1.1 Troponin I High Sens (0 - 45 ng/L) 10 10Urines Urine Color (YELLOW DESCRIPT) YELLOW Urine Appearance (CLEAR DESCRIPT) CLEAR Urine pH (4.6 - 8.0 pH UNITS) 6.0 Ur Specific [place] (1.001 - 1.035 SG) >1.050 H Urine Protein ((NEG) <30 mg/dL) 70 (1+) H Urine Glucose (UA) (0 (NORMAL) mg/dL) OVER >1000 (4+) H Urine Ketones ((NEG) 0 mg/dL) NEGATIVE (0) Urine Blood (0 (NEG) mg/dL) NEGATIVE (0.00) Urine Nitrite (NEG SCREEN) NEGATIVE (0) Urine Bilirubin ((NEG) 0 mg/dL) NEGATIVE (0.0) Urine Urobilinogen ((NORM)<2.0 mg/Dl) NORMAL (0) Ur Leukocyte Esterase ((NEG) 0 NEGATIVE (0)Leuk/mcL) Urine RBC (0 - 3 #RBC/HPF) 0-3 Urine WBC (0 - 3 #WBC/HPF) 0-3 Urine Bacteria (NONE - FEW /HPF) TRACE >0 Hyaline Casts (0 - 3 #/LPF) 0-5 Urine Mucus (NONE /LPF) RARE 04/19 1729 Chemistry Sodium (133 - 144 mmol/L) 130.0 L Potassium (3.5 - 5.1 mmol/L) 4.1 Chloride (95 - 105 mmol/L) 97 Carbon Dioxide (21 - 32 mmol/L) 29 Anion Gap (4.0 - 15.0 GAP calc) 4.0 BUN (7 - 18 MG/DL) 19 H Creatinine (0.55 - 1.30 MG/DL) 1.02 Glomerular Filtr Rate (>60 estGFR) 86 Glucose (70 - 110 MG/DL) 305 H Calcium (8.5 - 10.1 MG/DL) 9.6 Total Bilirubin (0.00 - 1.00 MG/DL) 0.25 Direct Bilirubin (0.00 - 0.30 MG/DL) < 0.10 Indirect Bilirubin (0.2 - 1.3 MG/DL) 0.25 AST (15 - 37 Unit/L) 29 ALT (12 - 78 Unit/L) 38 Total Alk Phosphatase (45 - 117 Unit/L) 107 Total Protein (6.4 - 8.2 G/DL) 9.9 H Albumin (3.4 - 5.0 G/DL) 3.4 Lipase (114 - 286 Unit/L) 581 H Specimen Appearance (1 NORMAL Index/DL) 1 NORMAL <2 MG Specimen Hemolysis (1 NORMAL Index/DL) 1 NORMAL <10 MG Coagulation D-Dimer (0 - 500 FEUng/mL) 1633 H Hematology WBC (4.1 - 12.1 K/mm3) 12.8 H RBC (3.8 - 5.5 M/mm3) 6.03 H Hgb (10.6 - 15.8 G/DL) 17.3 H Hct (31.8 - 47.4 %) 50.1 H MCV (80.1 - 101.1 fL) 83.1 MCH (25.3 - 35.3 pg) 28.7 MCHC (32.7 - 35.1 G/DL) 34.5 RDW (12.2 - 16.4 %) 13.6 Plt Count (155 - 337 K/mm3) 360 H MPV (7.6 - 10.4 fL) 9.8 Microbiology: Date/Time Procedure - Status Source Growth 04/19 2025 Blood Culture - COMP BLOOD 04/19 2025 Blood Culture - COMP BLOOD 04/19 2025 Blood Culture - COMP BLOOD 04/19 2025 Blood Culture - COMP BLOOD Recent Impressions:CAT SCAN - CT ABD PELVIS W/CONT 04/19 1835 Report Impression - Status: SIGNED Entered: 04/19/20231910 IMPRESSION: No evidence of pulmonary embolus or other acute vascular abnormalityEnhancing fluid collection in the soft tissues of the mid back, likelyan abscessPlease see detailed findings above Impression By: MARY GRACE Clifton SCAN - CTA CHEST FOR PE 04/19 1835 Report Impression - Status: SIGNED Entered: 04/19/20231910 IMPRESSION: No evidence of pulmonary embolus or other acute vascular abnormalityEnhancing fluid collection in the soft tissues of the mid back, likelyan abscessPlease see detailed findings above Impression By: Gurvinder Perry MD Procedures Incis Drainage Abscess #1Procedure Performed by ED physicianConsent/Setup/Site Prep Verified correct patient, Informed consent provided, Consent from patientLocation of AbscessBack, lateral no spineSkin Preparation Agent Hibiclens - ChlorhexidineProcedural Sedation/Analgesia Analgesia: FentanylIncised Abscess with #11 scalpelDepth of Incision SubcutaneousPus Drained Large, Purulent discharge, Abscess probed, Loculations broken upPost-Procedure/Complications Packing placed, No complications, Condition improved, Tolerated procedure well, Patient stable Re-Evaluation MDM Free Text MDM NotesFree Text MDM Notes-Differential diagnosis: [Acute coronary syndrome, pulmonary embolus, STEMI, GERD, costochondritis, pneumothorax, pneumonia, muscular strain]-External documents reviewed: [na]-My EKG interpretation: I directly visualized the EKG AND IT WAS INDEPENDANTLY INTEPRETED BY ME during medical decision-makingMy interpretation: [ Rate 102 prolonged QTc otherwise regular intervals rightward axis sinus rhythm no significant ST same elevations or depressions to be changes T wave version aVL no STEMI EKG from 1713 hrs. ]-My imaging interpretation: [n/a]-Labs reviewed and interpreted by me are significant for: [ Troponin negative CBC with leukocytosis no anemia, D-dimer positive BMP mild hyponatremia which partially corrects when accounting for hyperglycemia no DKA LFTs unremarkable lipase elevated possible pancreatitis ]-My review of imaging reports: [CTA chest for PE and CT abdomen pelvis negative for PE, there is an enhancing fluid collection in the soft tissues of the back, there is a right intra-abdominal fluid collection resolving, residual fluid collection there is an abscess in the right flank ]-Decision rules/scores evaluated: [n/a]-Treatment and Prescription drug management: [ if applicable see medications ordered section below ]-ED course: [ Bed 9 Bright Salazar 57-year-old male history of CAD and CABG andPAD presents with chest pain, no STEMI no PE, request admission for cardiology evaluation, also has a right flank abscess which I will drain, and history of MRSA, also is abdominal pain possible pancreatitis, request admission for further management also has intraabdominal fluid collection surgery should eval ]-Discussed case/patient with: [I discussed the case with the hospitalist, who agrees with plan to admit the patient.]-Disposition: [Admitted]-Problems and their severity/complexity: [see impression below]-Social determinants of health: [n/a] ED CourseMedication(s) OrderedMedication(s) Ordered:Anti-Infective Agents Sig/Ekta Start time Last Medication Dose Route Stop Time Status Admin Vancomycin HCl 1,750 MG X1ED STA 04/19 2017 AC Sodium Chloride 250 ML IV 04/19 2216 Ceftriaxone Sodium 1 GM X1ED STA 04/19 1954 DC Sterile Water 10 ML IV 04/19 1956 Central Nervous System Agents Sig/Ekta Start time Last Medication Dose Route Stop Time Status Admin Fentanyl Citrate 50 MCG X1ED STA 04/19 2017 DC IV 04/19 2018 Morphine Sulfate 4 MG X1ED STA 04/19 1900 DC 04/19 IV 04/19 Diagnostic Agents Sig/Ekta Start time Last Medication Dose Route Stop Time Status Admin Iopamidol 100 ML .STK-MED ONE 04/19 1848 DC 04/19 IV 04/19 Electrolytic, Caloric, And Aniket Sig/Ekta Start time Last Medication Dose Route Stop Time Status Admin Sodium Chloride 250 ML X1ED STA 04/19 1954 AC IV 04/19 2053 Gastrointestinal Drugs Sig/Ekta Start time Last Medication Dose Route Stop Time Status Admin Ondansetron HCl 4 MG X1ED STA 04/19 1900 DC 04/19 IV 04/19 Patient Discharge Departure Vital Signs/ConditionVital SignsFirst Documented: Result Date Time Pulse Ox 98 04/19 1659 B/P 121/81 04/19 1659 B/P Mean 94 04/19 165 O2 Delivery Room air 04/19 165 Temp 97.5 04/19 165 Pulse 103 04/19 1659 Resp 16 04/19 165 Last Documented: Result Date Time Pulse Ox 99 04/19 2030 B/P 147/73 04/19 2030 B/P Mean 102 04/19 2030 Pulse 88 04/19 2030 Resp 30 04/19 2030 O2 Delivery Room air 04/19 1659 Temp 97.5 04/19 165 All vital signs available at the time of this entry have been reviewed. Condition Stable Clinical ImpressionClinical ImpressionPrimary Impression: Chest painSecondary Impressions: Back abscess Disposition DecisionHospitalize Hosp Physician Name Kiel Gardiner MD )( Accepts Hospitalization Yes )( Accepted Time 2022 )( Accepted Date 04/19/23 Discharge/Care Plan(Auto) PrescriptionsCurrent Visit ScriptsINSULIN NPH HUMAN RECOM (HumuLIN N) 15 UNIT SUBQ BID AC INSULIN NPH HUMAN RECOM (HumuLIN N) 15 UNIT SUBQ BID AC #10 ML COLLAGENASE (SANTYL OINT) 1 APPLIC TOPICAL DAILY COLLAGENASE (SANTYL OINT) 1 APPLIC TOPICAL DAILY #30 GM GABAPENTIN (NEURONTIN) 300 MG PO TID GABAPENTIN (NEURONTIN) 300 MG PO TID #90 CAP DOXYCYCLINE HYCLATE (VIBRA-TAB) 100 MG PO Q12H DOXYCYCLINE HYCLATE (VIBRA-TAB) 100 MG PO Q12H #24 TABS DICYCLOMINE (BENTYL) 10 MG PO Q6H PRN PRN ABDOMINAL PAIN/CRAMPING DICYCLOMINE (BENTYL) 10 MG PO Q6H PRN PRN ABDOMINAL PAIN/CRAMPING #30 CAPS at 0401RPT #:[id number] OF REPORTEDEmergency department omspck7131-36-01X10:23:00B.[id number] AVAvailable for patient znsvTPRHEJKEZJQVYD2470-32-71I01:01:20 [facility] 2023-04-19 17:05:00 [id number]+Nxh7g25UVuf smiM ofjacJwST9Bq0RooOiFQ0QRbE6iDHvRn2905-32-90Y6 7:05:00 [facility] PROVIDER REPORTREPORT#:[id number] REPORT STATUS: SignedDATE:04/19/23 TIME: 1704 PATIENT: BRIGHT SALAZAR UNIT #: [id number]#: [id number] ROOM/BED: [facility]-WAGE: 57 SEX: M PCP PHYS: Tony Adams MDSERVICE AUTHOR: Kerry Tellez APRN-KIER HAND * ALL edits or amendments must be made on the electronic/computer document * Provider in Triage - Adult Provider in TriageInitial Greet Date/Time 04/19/23 170 Greet NoteI have greeted and performed a focused rapid initial assessment of this patient.A comprehensive ED assessment and evaluation of the patient, analysis of all test results, and completion of the medical decision-making process will be conducted by additional ED providers. HPI Chief Complaint abscessAll systems rev neg except as marked.PE General/Const No acute distress MSE Not CompleteThe medical screening exam is not complete. Further evaluation and/or treatment is required. The patient will be re-directed to the emergency department. Clinical ImpressionText/Dict Gkculjkxza45-suma-tds male presents with multiple comorbidities. He states he has an infection on his amputated left leg that is draining fluid. He also states he has an abscess on his lower back that is draining that has been there for a weekand a half. He went to urgent care a couple days ago and got a Rocephin and medication for pain. He has chronic shortness of breath, never diagnosed with COPD but a current smoker. States he is right lower quadrant umbilical pain that has been there for the past 2 weeks. And he states his nonradiating chest pain started 1 hour ago. PMH-Provider in TriageStated Complaint CP/ABD PAIN/STAPH INFECTION ON BACKAllergiesCoded Allergies:Tchlrnt-XVT-OvO Reductase Inhibitor (Intermediate, JOINT PAIN 10/22/22) JOINT PAIN Home MedicationsActive ScriptsMETOPROLOL SUCC XL (TOPROL XL) 50 MG PO DAILY 30 Days #30 TAB Prov: 11/19/22CLOPIDOGREL (PLAVIX) 75 MG PO DAILY CLOPIDOGREL (PLAVIX) 75 MG PO DAILY #30 TAB Prov: 10/24/22ASPIRIN 81 MG PO DAILY ASPIRIN 81 MG PO DAILY #100 TAB Prov: 10/24/22DME - INSULIN SYRINGES (INSULIN SYRINGES) [facility] - INSULIN SYRINGES (INSULIN SYRINGES) [facility] #100 Prov: 10/24/22DME - GLUCOSE LANCETS (GLUCOSE LANCETS) EACH MISC DAILY DME - GLUCOSE LANCETS (GLUCOSE LANCETS) EACH MISC DAILY #100 Prov: 10/24/22DME - GLUCOSE METER (GLUCOSE METER) [facility] - GLUCOSE METER (GLUCOSE METER) [facility] Prov: 10/24/22DME - GLUCOSE STRIPS (GLUCOSE STRIPS) EACH MISC DAILY DME - GLUCOSE STRIPS (GLUCOSE STRIPS) EACH MISC DAILY #100 Prov: 10/24/22 Discontinued ScriptsVANCOMYCIN (VANCOCIN) 1 EACH IV ASDIR 34 Days #1 Prov: 11/19/22 DC: 04/20/23 1645 Patient stopped takingMEROPENEM (MERREM) 500 MG IV Q6H VANCOMYCIN (VANCOCIN) 1.25 GM IV Q12H HYDROcodone/APAP (HYDROcodone/APAP 10/325) 1 TAB PO Q4H PRN PRN pain HYDROcodone/APAP (HYDROcodone/APAP 10/325) 1 TAB PO Q4H PRN PRN pain #15 TABS Prov: 11/29/22 DC: 04/20/23 1645 Patient stopped takingMORPHINE SULFATE (MORPHINE) 15 MG PO Q8HPRN PRN pain 7-10 MORPHINE SULFATE (MORPHINE) 15 MG PO Q8HPRN PRN pain 7-10 #15 TABS Prov: 10/24/22 DC: 04/20/231644 Patient stopped takingCYCLOBENZAPRINE HCL (FLEXERIL) 5 MG PO TID PRN PRN MUSCLE SPASMS CYCLOBENZAPRINE HCL (FLEXERIL) 5 MG PO TID PRN PRN MUSCLE SPASMS #30 TAB Prov: 10/24/22 DC: 04/20/231644 Patient stopped takingEZETIMIBE (ZETIA) 10 MG PO BEDTIME EZETIMIBE (ZETIA) 10 MG PO BEDTIME #30 TAB Prov: 10/24/22 DC: 04/20/231644 Patient stopped takingQUEtiapine (SEROquel) 50 MG PO BID QUEtiapine (SEROquel) 50 MG PO BID #60 TAB Prov: 10/24/22 DC: 04/20/231644 Patient stopped takingGABAPENTIN (NEURONTIN) 400 MG PO TID GABAPENTIN (NEURONTIN) 400 MG PO TID #90 CAP Prov: 10/24/22 DC: 04/20/231644 Patient stopped takingSENNOSIDES/DOCUSATE SOD (JOS-COLACE 8.6/50 MG) 1 UDTAB PO BID PRN SENNOSIDES/DOCUSATE SOD (JOS-COLACE 8.6/50 MG) 1 UDTAB PO BID PRN #100 TAB Prov: 10/24/22 DC: 04/20/231644 Patient stopped takingINSULIN NPH HUMAN RECOM (HumuLIN N) 35 UNITS SUBQ BID MEALS INSULIN NPH HUMAN RECOM (HumuLIN N) 35 UNITS SUBQ BID MEALS #10 ML Prov: 06/11/22 DC: 04/20/231644 Patient stopped takingMORPHINE SULFATE (MORPHINE) 15 MG PO Q4H PRN PRN pain 7-10 MORPHINE SULFATE (MORPHINE) 15 MG PO Q4H PRN PRN pain 7-10 #60 TABS Prov: 11/20/22 DC: 04/20/231644 Patient stopped taking Reported MedicationsZOLPIDEM (AMBIEN) 10 MG PO BEDTIME PRN PRN SLEEP Past Medical History:Reports: Coronary artery disease, Diabetes mellitus, Hypertension, Dyslipidemia. Additional Medical HistoryDM 2 CAD, multivessel LVEF 50-55% Hypertension Hyperlipidemia Poor medical follow through and complaince. PVD Diabetic Neuropathy Lt BKA infection req'ing multiple rounds of antibiotics andhospitalizations. Falls Atherosclerosis to the thoracic aorta, coronary arteries, abdominal aortaand branching vessels Calcified granulomas RLL Degenerative disc disease L3-L5 and cervical spine Osteophytosis lower thoracic spine Right ICA stenosis 09/26/2022 Right MCA CVA 09/26/22 Indeterminate right parotid lesionsPast Surgical History:Reports: CABG (x4), Cholecystectomy. Additional Surgical HistoryR CEA 10/08/22 CABG and PCI 2009 Multiple toe amputations transmetatarsal amputation 2020 Left BKA 2 stage lcohol Use Last drink was rug Use Denies recreational drugsSmoking status: Smoking status for patients 13 years old or older: Never SmokerAdditional Social HistoryLives alone. Stated his sister left so he is alone. Concerned he has not utilities on at his house. 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 For narcotics it would be best to FU with primary pain team. I have sent a short script for toradol (non narcotic) for him.Dave 52060-8Dopeisotw encounter VkxlQV1860-56-74X05:05:31Telephone encounter NoteTXT1.2.840.084068.1.13.104.2.7.2.653110| [id number] for patient aasx11164-2SfotNRENKZQJ EMERGENCY PHYSICIAN STAFFEMCARE EMERGENCY PHYSICIAN STAFF[address] Er[id number] VPGABCBVMPURAT0994-79-00T02:05:311.2.840.114 350.1.72.3.15|1.2.840.629116.1.13.104.2.7.2. [id number] CARE EMERGENCY PHYSICIAN STAFF [facility] 2023-02-19 14:11:05 6017-53-74Q58:11:05Formatting of this no te is different from the original.TRANSITIONAL CARE MANAGEMENT ASSESSMENT02/19/2023 Bright Salazar610848ARojody Salazar is a 57 year old /White male was admitted on 02/13/23 to [facility], ADC MED SURG. He was discharged on 02/18/23 with discharge disposition of HR- Routine Discharge.Admitting Physician: Kaylan Wheeler Diagnosis: Leg/neck pain Linked Episodes Type: Episode: Status: Noted: Resolved: Last update: Updated by: TRANSITION OF CARE TCM Active 02/18/2023 02/19/2023 2:05 PM Julieta Rehman, RN Comments: TCM Kus-dnfn-to-face outreach documentation:Discharge AssessmentChart Assessed: 02/19/23TCM Outreach Completed: 02/19/23Do you have a few minutes to speak with me about how you are doing at home?: Yes (pt reports he is doing ok but is in pain. Will message MD, pharmacy confirmed. IP still working on CLIENT PROFESSIONAL. This RN told pt I would call him back tomorrow to touch base with him.)Dorina Snider AGACNP Morris, David, DO Discharge InstructionsDo you understand your at-home instructions?: YesMedicationsHave you filled your prescriptions and do you have them in your home? : YesDo you know how to take your medications?: YesCan you provide me with the names or descriptions of any smpu-ght-onrrvbc or supplements you are currently taking?: YesSuppliesDid you receive applicable home medical supplies/equipment?: N/AFollow Up AppointmentHas a follow up appointment been scheduled?: YesDo you have any questions about your follow up appointments?: NoAre you able to get to your appointment? Who will be taking you?: Yes (pt has transportation)Home Health AssistanceHas the home health nurse contacted you since you've been home?: No ([facility] is not in network with pt insurance. HH spoke with FREDDY Tesfaye. FREDDY sent referral to to [facility] and [facility], as well. Mera reports they are currently going down the list and will find CLIENT PROFESSIONAL by the EOD.)CLIENT PROFESSIONAL Interventions:: Contacted HH agency;Contacted in care mngrSurvey - RecognitionIs there anything you would like to share about your recent hospitalization, or anyone you would like to recognize?: NoDo you have any suggestions for improvement?: NoDo you have any other questions or concerns at this time?: NoFuture Appointments: Future Appointments Provider Department Dept Phone 03/03/2023 2:00 PM Rasheed Echevarria MD [facility] [phone] 28198-1Ytjshaqbd encounter VymkBE8686-54-02K05:15:16Telephone encounter NoteTXT1.2.840.253482.1.13.104.2.7.2.872882| [id number] for patient [id number] L Deborde RN[address] Eg[id number] ZETTLKOHYRWUNN1148-69-15H23:15:161.2.840.114 350.1.72.3.15|1.2.840.860287.1.13.104.2.7.2. [id number] Julieta Rehman RN [facility] 2023-02-18 15:12:40 6242-65-61B03:12:40Formatting of this no te might be different from the original.Problem: Falls, Risk ofGoal: Absence of fallsOutcome: Adequate for discharge Problem: Venous Thromboembolism, (actual or risk of)Goal: Absence of venous thromboembolism (Risk)Outcome: Adequate for discharge Problem: Skin integrity Impaired (Risk or Actual)Goal: Wound healingOutcome: Adequate for dischargeGoal: Prevention of new skin breakdownOutcome: Adequate for discharge Problem: PainGoal: Control of pain at or below patient's documented comfort goalOutcome: Adequate for dischargeGoal: Reduction in pain sensationOutcome: Adequate for discharge Problem: Discharge PlanningGoal: Adequate for dischargeOutcome: Adequate for dischargeGoal: Effective communicationOutcome: Adequate for discharge Problem: Infection RiskGoal: Absence of infectionOutcome: Adequate for discharge 75291-8Jxpi of care lxffDW9828-96-12O51:12:42Plan of care noteTXT1.2.840.544147.1.13.104.2.7.2.526601| [id number] for patient [id number] Rosales RN[id number] SDGTBCZIINKBQM7839-37-36X06:12:421.2.840.114 350.1.72.3.15|1.2.840.695993.1.13.104.2.7.2. [id number] Skylar Reyes RN [facility] 2023-02-17 22:45:23 9819-61-25B89:45:23Formatting of this no te might be different from the original.Problem: Falls, Risk ofGoal: Absence of fallsOutcome: Progressing as expected Problem: Venous Thromboembolism, (actual or risk of)Goal: Absence of venous thromboembolism (Risk)Outcome: Progressing as expected Problem: Skin integrity Impaired (Risk or Actual)Goal: Wound healingOutcome: Progressing as expectedGoal: Prevention of new skin breakdownOutcome: Progressing as expected Problem: PainGoal: Control of pain at or below patient's documented comfort goalOutcome: Progressing as expectedGoal: Reduction in pain sensationOutcome: Progressing as expected Problem: Infection RiskGoal: Absence of infectionOutcome: Progressing as expected 95807-5Hfgo of care efbcBW4165-12-93Y47:45:30Plan of care noteTXT1.2.840.926207.1.13.104.2.7.2.984582| [id number] for patient pduw01537-5TsqoKJ658597337Xzvfe Terra RICHARDSON[id number] HERNANDEZHKXTQOUODRBJLK6739-10-79J93:45:301.2.840.114 350.1.72.3.15|1.2.840.146822.1.13.104.2.7.2. [id number] Karolina Ellison RN [facility] 2023-02-17 16:48:25 5528-10-10D52:48:25Formatting of this no te might be different from the original.Problem: Falls, Risk ofGoal: Absence of fallsOutcome: Progressing as expected Problem: Venous Thromboembolism, (actual or risk of)Goal: Absence of venous thromboembolism (Risk)Outcome: Progressing as expected Problem: Skin integrity Impaired (Risk or Actual)Goal: Wound healingOutcome: Progressing as expectedGoal: Prevention of new skin breakdownOutcome: Progressing as expected Problem: PainGoal: Control of pain at or below patient's documented comfort goalOutcome: Progressing as expectedGoal: Reduction in pain sensationOutcome: Progressing as expected Problem: Discharge PlanningGoal: Adequate for dischargeOutcome: Progressing as expectedGoal: Effective communicationOutcome: Progressing as expected Problem: Infection RiskGoal: Absence of infectionOutcome: Progressing as expected 05587-2Yxfs of care ekgwCT9085-96-88G77:48:28Plan of care noteTXT1.2.840.180519.1.13.104.2.7.2.027395| [id number] for patient [id number] Roye RN[id number] JYUWKAOSKPQSTT4947-37-61A52:48:281.2.840.114 350.1.72.3.15|1.2.840.711560.1.13.104.2.7.2. [id number] Anum Santamaria RN [facility] 2023-02-17 15:57:00 1777-02-21E70:57:00Summary: Vancomycin Monitoring Vancomycin Therapeutic Monitoring Note Pharmacy to monitor vancomycin dosing for patient Bright Salazar, [id number].Primary Physician: Dr. Gomez Physician, if following: Dr. Ocasio Indication for Vancomycin and Goal Trough: Osteomyelitis - Trough 12-17 mcg/ml (pending MRI rule out) Age: [age] year old Weight: Wt Readings from Last 1 Encounters: 02/13/23 87.2 kg (192 lb 3.2oz) Duration of Antibiotics: TBD (02/13/23 - present)Concurrent Antibiotics:Zosyn 3.375 gm Q8H (02/13/23 - 02/14/23)Cefepime 1000mg IV Q8H (02/14/23 - )Microbiology: Blood culture (02/13/23): No growth at 72HWoundAbscess culture (02/13/23): MRSA MRSA screen, Nares (02/14/23): Positive Laboratory Data and Vancomycin Dosing:Date Scr (mg/dL) CrCL (mL/min) Dosing Regimen and frequency @ Times (mg) Vancomycin Level @ Time (mcg/mL) 02/13/23 0.75 119.3 Vancomycin 1250 mg @ 2010 - 02/14/23 0.68 Vancomycin 1250 mg @ 0823, 2152 - 02/15/23 0.54 165.7 Vancomycin 1250 mg @ 0951, 1500 mg @ 2339 8.5 mcg/mL @ 0944 02/16/23 0.64 139.8 Vancomycin 1500mg Q12H @ 1050, 235 - 02/17/23 0.63 142 Vancomycin 1500 mg Q12H @ 0944, scheduled 2129 12.4 mcg/mL @ 0939 - - Assessment and Plan:Trough came back at 12.4 mcg/ml, which is therapeutic. Trough was drawn ~12 hours after last dose. Level is a true trough.Plan is to: Continue current regimen of: Vancomycin 1500 mg Q12H (17 mg/kg)Plan to draw next trough in 3 days on 02/20/23 @ 0930. Thank you for allowing pharmacy to participate in the care of this patient. Please feel free to contact us with any questions or concerns. Delonte Brady PharmD, [facility] Sivum: [phone]/04/2023 16:04 53560-2Lnnym GoxsHC6362-37-15Y84:04:36Nurse NoteTXT1.2.840.601336.1.13.104.2.7.2.845251| [id number] for patient [id number] Marie P Sled [id number] HSXSLDKELHHOTP9236-50-58T38:04:361.2.840.114 350.1.72.3.15|1.2.840.875982.1.13.104.2.7.2. [id number] Lyly Brady [facility] 2023-02-17 00:05:35 2060-98-10F49:05:35Formatting of this no te might be different from the original.Problem: Falls, Risk ofGoal: Absence of fallsOutcome: Progressing as expected Problem: Venous Thromboembolism, (actual or risk of)Goal: Absence of venous thromboembolism (Risk)Outcome: Progressing as expected Problem: Skin integrity Impaired (Risk or Actual)Goal: Wound healingOutcome: Progressing as expectedGoal: Prevention of new skin breakdownOutcome: Progressing as expected Problem: PainGoal: Control of pain at or below patient's documented comfort goalOutcome: Progressing as expectedGoal: Reduction in pain sensationOutcome: Progressing as expected Problem: Discharge PlanningGoal: Adequate for dischargeOutcome: Progressing as expectedGoal: Effective communicationOutcome: Progressing as expected Problem: Infection RiskGoal: Absence of infectionOutcome: Progressing as expected 45507-2Vgvh of care atdlEW5670-77-41G53:05:43Plan of care noteTXT1.2.840.966005.1.13.104.2.7.2.442973| [id number] for patient xyqf54972-0HaznDUOSWBFANY[id number] MMNWVUZHXDJKRG0281-83-24X26:05:431.2.840.114 350.1.72.3.15|1.2.840.770321.1.13.104.2.7.2. [id number] [facility] 2023-02-16 17:43:00 2923-33-48U73:43:00Formatting of this no te might be different from the original.Problem: Falls, Risk ofGoal: Absence of fallsOutcome: Progressing as expected Problem: Venous Thromboembolism, (actual or risk of)Goal: Absence of venous thromboembolism (Risk)Outcome: Progressing as expected Problem: Skin integrity Impaired (Risk or Actual)Goal: Wound healingOutcome: Progressing as expectedGoal: Prevention of new skin breakdownOutcome: Progressing as expected Problem: PainGoal: Control of pain at or below patient's documented comfort goalOutcome: Progressing as expectedGoal: Reduction in pain sensationOutcome: Progressing as expected Problem: Discharge PlanningGoal: Adequate for dischargeOutcome: Progressing as expectedGoal: Effective communicationOutcome: Progressing as expected Problem: Infection RiskGoal: Absence of infectionOutcome: Progressing as expected 88194-0Gvun of care mkbkYG1116-77-05J31:43:08Plan of care noteTXT1.2.840.149304.1.13.104.2.7.2.797228| [id number] for patient hord94402-5LetxTFZOSHWYIO[id number] PKRIALVIAQLPZB3287-30-17R64:43:081.2.840.114 350.1.72.3.15|1.2.840.544476.1.13.104.2.7.2. [id number] [facility] 2023-02-15 23:27:56 6225-50-74N70:27:56Formatting of this no te might be different from the original.Problem: Falls, Risk ofGoal: Absence of fallsOutcome: Progressing as expected Problem: Venous Thromboembolism, (actual or risk of)Goal: Absence of venous thromboembolism (Risk)Outcome: Progressing as expected Problem: Skin integrity Impaired (Risk or Actual)Goal: Wound healingOutcome: Progressing as expectedGoal: Prevention of new skin breakdownOutcome: Progressing as expected Problem: PainGoal: Control of pain at or below patient's documented comfort goalOutcome: Progressing as expected Problem: Discharge PlanningGoal: Adequate for dischargeOutcome: Progressing as expectedGoal: Effective communicationOutcome: Progressing as expected Problem: Infection RiskGoal: Absence of infectionOutcome: Progressing as expected 99588-7Otxq of care eqqgRM6362-23-20P48:28:05Plan of care noteTXT1.2.840.006488.1.13.104.2.7.2.531803| [id number] for patient seou55802-1CiyaSQUVELPGDI[id number] YZOHZNFMVJLAWS4855-61-50Y54:28:051.2.840.114 350.1.72.3.15|1.2.840.404560.1.13.104.2.7.2. [id number] [facility] 2023-02-15 17:52:00 6229-58-40E11:52:00Formatting of this no te might be different from the original.Problem: Falls, Risk ofGoal: Absence of fallsOutcome: Progressing as expected Problem: Venous Thromboembolism, (actual or risk of)Goal: Absence of venous thromboembolism (Risk)Outcome: Progressing as expected Problem: Skin integrity Impaired (Risk or Actual)Goal: Wound healingOutcome: Progressing as expectedGoal: Prevention of new skin breakdownOutcome: Progressing as expected Problem: PainGoal: Control of pain at or below patient's documented comfort goalOutcome: Progressing as expectedGoal: Reduction in pain sensationOutcome: Progressing as expected Problem: Discharge PlanningGoal: Adequate for dischargeOutcome: Progressing as expectedGoal: Effective communicationOutcome: Progressing as expected Problem: Infection RiskGoal: Absence of infectionOutcome: Progressing as expected 36664-9Mmzx of care bfuqFV1504-89-91J63:15:50Plan of care noteTXT1.2.840.730685.1.13.104.2.7.2.650497| [id number] for patient xxvz22178-6IwhtNIGPCUQMSA[id number] XJVBHPZGVEASVI5885-59-96Z67:15:501.2.840.114 350.1.72.3.15|1.2.840.921943.1.13.104.2.7.2. [id number] [facility] 2023-02-15 13:45:09 7475-95-14J98:45:09Formatting of this no te is different from the original.Vancomycin Therapeutic Monitoring Note Pharmacy to monitor vancomycin dosing for patient Bright Salazar, [id number].Primary Physician: Dr. Gomez Physician, if following: None Indication for Vancomycin and Goal Trough: Skin and Soft Tissue Infections - Trough 10-15 mcg/ml Age: [age] year old Weight: Wt Readings from Last 1 Encounters: 02/13/23 87.2 kg (192 lb 3.2oz) Duration of Antibiotics: TBD (02/13/23 - present)Concurrent Antibiotics:Zosyn 3.375 gm Q8H (02/13/23 - 02/14/23)Cefepime 1000mg IV Q8H (02/14/23 - )Microbiology: Blood culture (02/13/23): No growth at 24HWound/Aspirate/Abscess (02/13/23): GPC, Polymorphonuclear leukocytesMRSA screen, Nares (02/14/23): Positive Laboratory Data and Vancomycin Dosing:Date Scr (mg/dL) CrCL (mL/min) Dosing Regimen and frequency @ Times (mg) Vancomycin Level @ Time (mcg/mL) 02/13/23 0.75 119.3 Vancomycin 1250 mg @ 2010 - 02/14/23 0.68 Vancomycin 1250 mg @ 822, 2152 - 02/15/23 0.54 165.7 Vancomycin 1250 mg @ 0951 8.5 @0944 - - - - Assessment and Plan:Trough came back at 8.5 mcg/ml, subtherapeutic. Trough drawn ~12h after last dose so it is a true trough.Plan is to: Changed Vancomycin to: Vancomycin 1500 mg Q12H (17 mg/kg)Plan to draw next trough level before 4th dose on: 02/17/23_ @ 0900 Thank you for allowing pharmacy to participate in the care of this patient. Please feel free to contact us with any questions or concerns. Me travis Rodríguez RPH, PharmDUTMB [facility] - Department of PharmacyPhone: [id number] signed by Kee Rodríguez RPH at 02/15/2023 1:45 PM ONB14527-7Apddh CzttEJ3657-75-37H41:45:54Nurse NoteTXT1.2.840.525329.1.13.104.2.7.2.864931| [id number] for patient [id number] S See [id number] AEIMIXARDZJOMZ0925-53-95H89:45:541.2.840.114 350.1.72.3.15|1.2.840.993906.1.13.104.2.7.2. [id number] Kee S See [facility] 2023-02-15 02:48:08 7191-98-89M27:48:08Formatting of this no te might be different from the original.Problem: Falls, Risk ofGoal: Absence of fallsOutcome: Progressing as expected Problem: Venous Thromboembolism, (actual or risk of)Goal: Absence of venous thromboembolism (Risk)Outcome: Progressing as expected Problem: Skin integrity Impaired (Risk or Actual)Goal: Wound healingOutcome: Progressing as expectedGoal: Prevention of new skin breakdownOutcome: Progressing as expected Problem: PainGoal: Control of pain at or below patient's documented comfort goalOutcome: Progressing as expectedGoal: Reduction in pain sensationOutcome: Progressing as expected Problem: PainGoal: Reduction in pain sensationOutcome: Progressing as expected Problem: Infection RiskGoal: Absence of infectionOutcome: Progressing as expected 17962-7Iojj of care cjqlVS3575-69-42F37:48:16Plan of care noteTXT1.2.840.910785.1.13.104.2.7.2.715530| [id number] for patient vium85064-8XdqkBSOMTKPOWS64 [address] [id number] HCFMXHEVOQSBKV3056-41-98E71:48:161.2.840.114 350.1.72.3.15|1.2.840.600929.1.13.104.2.7.2. [id number] [facility] 2023-02-14 19:00:22 4971-65-41U08:00:22Formatting of this no te might be different from the original.Problem: Falls, Risk ofGoal: Absence of fallsOutcome: Progressing as expected Problem: Venous Thromboembolism, (actual or risk of)Goal: Absence of venous thromboembolism (Risk)Outcome: Progressing as expected Problem: Skin integrity Impaired (Risk or Actual)Goal: Wound healingOutcome: Progressing as expectedGoal: Prevention of new skin breakdownOutcome: Progressing as expected Problem: PainGoal: Control of pain at or below patient's documented comfort goalOutcome: Progressing as expectedGoal: Reduction in pain sensationOutcome: Progressing as expected Problem: Discharge PlanningGoal: Adequate for dischargeOutcome: Progressing as expectedGoal: Effective communicationOutcome: Progressing as expected Problem: Infection RiskGoal: Absence of infectionOutcome: Progressing as expected 25744-0Ocno of care gcqhDY2960-14-92G03:00:30Plan of care noteTXT1.2.840.888376.1.13.104.2.7.2.544276| [id number] for patient [id number] J Rivera RN[id number] ZJWFTWDEIEKQIK4694-08-65B42:00:301.2.840.114 350.1.72.3.15|1.2.840.129413.1.13.104.2.7.2. [id number] Ashley Menezes RN [facility] 2023-02-13 23:03:20 4919-08-19K87:03:20Formatting of this no te might be different from the original.Problem: Falls, Risk ofGoal: Absence of fallsOutcome: Progressing as expected Problem: Venous Thromboembolism, (actual or risk of)Goal: Absence of venous thromboembolism (Risk)Outcome: Progressing as expected Problem: Skin integrity Impaired (Risk or Actual)Goal: Wound healingOutcome: Progressing as expectedGoal: Prevention of new skin breakdownOutcome: Progressing as expected Problem: PainGoal: Control of pain at or below patient's documented comfort goalOutcome: Progressing as expectedGoal: Reduction in pain sensationOutcome: Progressing as expected Problem: Discharge PlanningGoal: Adequate for dischargeOutcome: Progressing as expectedGoal: Effective communicationOutcome: Progressing as expected Problem: Infection RiskGoal: Absence of infectionOutcome: Progressing as expected 37014-8Abtx of care qpziIJ4322-36-25J81:03:22Plan of care noteTXT1.2.840.357549.1.13.104.2.7.2.368722| [id number] for patient tgns59549-5JsycTXCIQVAXAL[id number] KTEMJSZORFFWXQ2184-47-99I41:03:221.2.840.114 350.1.72.3.15|1.2.840.182457.1.13.104.2.7.2. [id number] [facility] 2023-02-13 22:06:51 7722-11-72G25:06:51Summary: Vancomycin Monitoring Vancomycin Therapeutic Monitoring NotePharmacy to monitor vancomycin dosing for patient Bright Jason Salazar, [id number].Primary Physician: Dr. Gomez Physician, if following: NoneIndication for Vancomycin and Goal Trough: Skin and Soft Tissue Infections - Trough 10-15 mcg/mlAge: 57 year old Weight: Wt Readings from Last 1 Encounters: 02/13/23 83.9 kg (185 lb) Duration of Antibiotics: TBD (02/13/23 - present)Concurrent Antibiotics:Zosyn 3.375 gm Q8H (02/13/23 - present)Microbiology: Blood/Wound culture in process.Laboratory Data and Vancomycin Dosing:Date Scr (mg/dL) CrCL (mL/min) Dosing Regimen and frequency @ Times (mg) Vancomycin Level @ Time (mcg/mL) 02/13/23 0.75 119.3 Vancomycin 1250 mg given @ 1999 - - - - - - - Assessment and Plan:Plan is to: Start vancomycin scheduled at a dose of: Vancomycin 1250 mg Q12H (15 mg/kg)Plan to draw next trough level on: _02/15/23_ @ _0730_Thank you for allowing pharmacy to participate in the care of this patient. Please feel free to contact us with any questions or concerns. Yris Miller [facility], [facility] Department of PharmacyPhone: [phone]/12/2022 22:07 87137-9Ntdot RkppCQ0754-47-80P15:04:54Nurse NoteTXT1.2.840.094566.1.13.104.2.7.2.528260| [id number] for patient [id number] Phan [address]Oj[id number] BEGNVTTOBJAHKV0260-40-89R28:04:541.2.840.114 350.1.72.3.15|1.2.840.658837.1.13.104.2.7.2. [id number] Delvin Miller [facility] 2023-02-13 21:50:00 7511-70-11W47:50:00Formatting of this no te might be different from the original.Patient admitted to [facility] for diagnosis of amputation stump infection, folliculitis, cellulitis of LLE, post op wound abscess, and osteomyelitis.Patient agrees to admission, discussed plan of care with patient and family.Patient is awake, A&Ox 4, RR even and unlabored on RA. Color appropriate for race. PIV intact x 1.No adverse reaction to medications administered while in ED.Belongings with patient to unit. [address]37-5Rxlsxzh[address] FmisRQ0505-10-82Q23:09:39[facility] department NoteTXT1.2.840.171218.1.13.104.2.7.2.167719| [id number] for patient [id number] R Goodrich [id number] GROUP HEALTH COOPERATIVE CENTRAL HOSPITALTOBGSTNCZMIJLV0840-76-07Z28:09:391.2.840.114 350.1.72.3.15|1.2.840.386179.1.13.104.2.7.2. [id number] Romi Meza RN [facility] 2023-02-13 21:39:59 0213-34-73E95:39:59Formatting of this no te might be different from the original.Nurse Report Report given to Jhonathan RICHARDSON. Chief complaint, assessment findings, infusion verify [place] [address]-2Aow[address]lskf[address] OjsoQF5593-54-82M31:40:07Emec[facility] hospital department NoteTXT1.2.840.903332.1.13.104.2.7.2.310475| [id number] for patient teqp69731-2WiixTULJBKCUXT[id number] WQQCRAFFRIHYFW2790-76-99W61:40:071.2.840.114 350.1.72.3.15|1.2.840.215321.1.13.104.2.7.2. [id number] [facility] 2023-02-13 12:40:50 7986-94-21V18:40:50Formatting of this no te might be different from the original.Pt arrived via private car with c/o a wound to his left stump, also c/o an abscess like area to the back of his neck. 63745-0Qlrwkesim department Triage yspwUE0789-63-30Z05:42:54[facility] department Triage noteTXT1.2.840.846855.1.13.104.2.7.2.926443| [id number] for patient bmcu60579-0Qqidthcvu department [address] Dq[id number] GTWUYJGMEEOXBB4310-53-11V98:42:541.2.840.114 350.1.72.3.15|1.2.840.711685.1.13.104.2.7.2. [id number] [facility] 2023-02-13 12:31:00 2351-59-45Q80:31:00Formatting of this no te is different from the original.Images from the original note were not included.[facility]MENT [facility] Cagle of : 1965 57 year oldMRN: [id number] Room:[address] Care Physician: No primary care provider on file.Pre- Hospital Patient Escorted by: Self [9]Mode of Arrival: Personal means [1]EMS Treatment Prior to ED Arrival: SUPERVISOR TYPE DISK QUALITY CONTROL treatment: None ED Events Date/Time Event User Comments 02/13/23 1300 Medical Screening Begins OLVIN SERRA MD -- 02/13/23 1300 First Provider Evaluation OLVIN SERRA MD -- Chief Complaint Chief Complaint Patient presents with Wound Left stump ED Triage Notes Caryn Almonte RN 02/13/2023 12:42 Pt arrived via private car with c/o a wound to his left stump, also c/o an abscess like area to the back of his neck. HPI The patient is a 57-year-old gentleman who presents for redness and swelling to his stump. The patient notes that he has a history of peripheral vascular disease and diabetes. He underwent a BKA in April of last year. He states approximate 5 days ago he developed redness and swelling to his stump. He also admits to drainage from the wound. He denies systemic symptoms such as nausea, vomiting, or fever. The patient also notes a swelling to the very hairline. It appears to be folliculitis. The patient presents for evaluation.History provided by: PatientIllnessLocation: LLESeverity: ModerateOnset quality: GradualDuration: 5 daysTiming: ConstantChronicity: NewContext: See narrativeRelieved by: NothingWorsened by: NotihingAssociated symptoms: no abdominal pain, no chest pain, no cough, no fatigue, no fever, no headaches, no nausea, no shortness of breath, no vomiting and no wheezing Past Medical History / Immunizations No past medical history on file.Tetanus received in last 5 years: YesChildhood immunizations: Zz-ft-vmrwZkls Surgical History No past surgical history on file.Allergies No Known AllergiesSocial History Tobacco Use Every Day; Types: Cigarettes Passive Exposure: Current Smokeless Tobacco: Never used smokeless tobacco. Tobacco Cessation: Ready to quit: No; Counseling given: Yes Review of Systems Review of Systems Constitutional: Negative. Negative for chills, fatigue, fever and unexpected weight change. HENT: Negative. Eyes: Negative. Negative for discharge and itching. Respiratory: Negative. Negative for cough, chest tightness, shortness of breath and wheezing. Cardiovascular: Negative. Negative for chest pain and palpitations. Gastrointestinal: Negative. Negative for abdominal distention, abdominal pain, nausea and vomiting. Genitourinary: Negative. Negative for dysuria, urgency, frequency and flank pain. Musculoskeletal: Positive for arthralgias. Skin: Negative. Negative for color change, pallor and wound. Neurological: Negative. Negative for dizziness, syncope, light-headedness and headaches. Psychiatric/Behavioral: Negative. Negative for agitation and behavioral problems. All other systems reviewed and are negative.Endocrine: Endocrine negativePhysical Exam ED Triage Vitals Weight 02/13/23 1244 83.9 kg (185 lb) Actual or estimated 02/13/23 1241 Estimated by patient/family report Height 02/13/23 1244 1.829 m (6') BP 02/13/23 1241 (!) 160/76 Pulse 02/13/23 1241 109 Resp 02/13/23 1241 16 Temp 02/13/23 1244 37.4 ?C (99.3 ?F) Temp source 02/13/23 1244 Oral SpO2 02/13/23 1241 99 % Measured on 02/13/23 1241 Room air Physical ExamVitals reviewed. Constitutional: Appearance: He is well-developed. HENT: Head: Normocephalic and atraumatic. Comments: FolliculitisEyes: Conjunctiva/sclera: Conjunctivae normal. Cardiovascular: Rate and Rhythm: Normal rate and regular rhythm. Heart sounds: Normal heart sounds. Pulmonary: Effort: Pulmonary effort is normal. No respiratory distress. Breath sounds: Normal breath sounds. No stridor. No wheezing or rales. Abdominal: General: Bowel sounds are normal. There is no distension. Palpations: Abdomen is soft. Tenderness: There is no abdominal tenderness. There is no guarding or rebound. Musculoskeletal: General: Normal range of motion. Skin: General: Skin is warm and dry. Neurological: Mental Status: He is alert and oriented to person, place, and time. Cranial Nerves: No cranial nerve deficit. Sensory: No sensory deficit. Psychiatric: Behavior: Behavior normal. Labs Lab Results CBC WITH DIFF - Abnormal Result Value Ref Range WBC 10.53 4.20 - 10.70 10*3/?L RBC 6.03 (*) 4.26 - 5.52 10*6/?L HGB 16.8 (*) 12.2 - 16.4 g/dL HCT 49.9 (*) 38.4 - 49.3 % MCV 82.8 81.7 - 95.6 fL MCH 27.9 26.1 - 32.7 pg MCHC 33.7 31.2 - 35.0 g/dL RDW-SD 42.3 38.5 - 51.6 fL RDW-CV 14.4 12.1 - 15.4 % PLT 174 150 - 328 10*3/?L MPV 10.8 9.8 - 13.0 fL NRBC/100 WBC 0.0 0.0 - 10.0 /100 WBCs NRBC x10^3 <0.01 10*3/?L GRAN MAT (NEUT) % 69.2 % IMM GRAN % 0.30 % LYMPH % 18.7 % MONO % 9.7 % EOS % 1.2 % BASO % 0.9 % GRAN MAT x10^3(ANC) 7.29 (*) 1.99 - 6.95 10*3/uL IMM GRAN x10^3 0.03 0.00 - 0.06 10*3/uL LYMPH x10^3 1.97 1.09 - 3.23 10*3/uL MONO x10^3 1.02 0.36 - 1.02 10*3/uL EOS x10^3 0.13 0.06 - 0.53 10*3/uL BASO x10^3 0.09 0.01 - 0.09 10*3/uL COMP. METABOLIC PANEL (65875) - Abnormal NA 137 135 - 145 mmol/L K 4.3 3.5 - 5.0 mmol/L CL 103 98 - 108 mmol/L CO2 TOTAL 22 (*) 23 - 31 mmol/L AGAP 12 2 - 16 BUN 15 7 - 23 mg/dL GLUCOSE 226 (*) 70 - 110 mg/dL CREATININE 0.75 0.60 - 1.25 mg/dL TOTAL BILI 0.4 0.1 - 1.1 mg/dL CALCIUM 9.7 8.6 - 10.6 mg/dL T PROTEIN 9.1 (*) 6.3 - 8.2 g/dL ALBUMIN 4.4 3.5 - 5.0 g/dL ALK PHOS 88 34 - 122 U/L ALTv 29 5 - 50 U/L AST(SGOT) 27 13 - 40 U/L eGFR 107.3 mL/min/1.73m2 LACTIC ACID WHOLE BLOOD - Abnormal LACTIC ACID 2.30 (*) 0.50 - 2.20 mmol/L BLOOD CULTURE SCREEN WOUND/ASPIRATE OR ABSCESS CULTURE BLOOD CULTURE SCREEN Imaging CT KNEE LEFT W CONTRAST Final Result CT KNEE LEFT W CONTRAST Indication: Soft tissue infection suspected, thigh, xray done possible stump abscess Comparison: None. RL: Ordering Clinician: OLVIN SERRA Technique: Axial postcontrast CT imaging of the left knee with sagittal and coronal reformats. Dose reduction techniques were used (ALARA). Technical Quality: Adequate Discussion: Below the knee indication. No fracture. Eroded appearance of the distal amputation site of the tibia up to 4 mm in diameter which potentially could represent osteomyelitis. Edema at the amputation site with soft tissue ulceration anteriorly extending 4 mm in depth. There is approximately 19 mm a soft tissue coverage above the amputation site of the tibia. Saturation there is a small ill-defined pocket of fluid measuring 20 x 10 x 8 mm which could represent bland bursal fluid or a small developing abscess. IMPRESSION Impression: Small amount of fluid in ill-defined pocket at the amputation site could represent a bland bursal fluid accumulation or a small developing abscess. Mild erosion at the tibial amputation site which could represent osteomyelitis. MRI imaging might be considered for further evaluation. Orders and Treatments Orders Placed This Encounter Procedures CT KNEE LEFT W CONTRAST CBC WITH DIFF COMP. METABOLIC PANEL (39895) Lactic Acid Whole Blood BLOOD CULTURE SCREEN BLOOD CULTURE SCREEN WOUND/ASPIRATE OR ABSCESS CULTURE WOUND CULTURE BLOOD CULTURE SCREEN BLOOD CULTURE SCREEN SEDIMENTATION RATE Vancomycin Trough Level - Draw within 30 minutes prior to 4TH dose. BASIC METABOLIC PANEL (NA, K, CL, CO2, GLUCOSE, BUN, CREATININE, CA) Lactic Acid Whole Blood CBC WITHOUT DIFF BASIC METABOLIC PANEL (NA, K, CL, CO2, GLUCOSE, BUN, CREATININE, CA) GLYCOSYLATED HEMOGLOBIN (A1C) POCT GLUCOSE (AUTOMATED) POCT GLUCOSE (AUTOMATED) WOUND/ASPIRATE OR ABSCESS CULTURE ASPIRATE OR ABSCESS CULTURE(AEROBIC/ANAEROBIC) CONSULT GENERAL SURGERY Consult Orthopaedic Surgery Consult Wound, Ostomy, or Continence Care Team: Wound Care; ADC; WOC Nurse Consult Infectious Disease Orders Placed This Encounter Medications iopamidol (ISOVUE 370-500 mL) injection 75 mL piperacillin-tazobactam (ZOSYN) 3.375 g in NaCl 0.9% (NS) 100 mL MINI-BAG vancomycin 1,250 mg in NaCl 0.9% (NS) 250 mL VIAL-MATE IV piggyback morpHINE (4 mg/mL) injection 4 mg ondansetron (ZOFRAN (PF)) injection 4 mg enoxaparin (LOVENOX) injection 40 mg acetaminophen (TYLENOL) tablet 1,000 mg DISCONTD: traMADoL (ULTRAM) tablet 100 mg HYDROcodone-acetaminophen (NORCO) 10-325 mg tablet 1 tablet docusate (COLACE) capsule 100 mg ondansetron (ZOFRAN (PF)) injection 4 mg Sliding Scale Insulin - Lispro (HumaLOG) vancomycin 1,250 mg in NaCl 0.9% (NS) 250 mL VIAL-MATE IV piggyback DISCONTD: piperacillin-tazobactam (ZOSYN) 3.375 g in NaCl 0.9% (NS) 100 mL MINI-BAG DISCONTD: piperacillin-tazobactam (ZOSYN) 3.375 g in NaCl 0.9% (NS) 100 mL MINI-BAG cyclobenzaprine 5 mg tablet gabapentin 300 mg capsule clopidogreL 75 mg tablet QUEtiapine 50 mg tablet clopidogreL (PLAVIX) 75 mg tablet 75 mg cyclobenzaprine (FLEXERIL) tablet 5 mg gabapentin (NEURONTIN) capsule 300 mg morpHINE (2 mg/mL) injection 2 mg metoprolol tartrate (LOPRESSOR) 50 mg tablet ceFEPIme (MAXIPIME) 1,000 mg in NaCl 0.9% (NS) 100 mL MINI-BAG DISCONTD: lidocaine 0.5% 5 mg/mL (0.5 %) injection 25 mg lidocaine 1% (XYLOCAINE) 10 mg/mL (1 %) injection 5 mL Procedures ProceduresNotes & MDM Patient was evaluated for an emergency medical condition related to Wound (Left stump)LLE abscessLLE cellulitisHistory and/or review of systems is limited by:History limited: None.Diagnosis/Impression as of 02/14/23 1603 Amputation stump infection Folliculitis Cellulitis of left lower extremity Post-operative wound abscess Osteomyelitis, unspecified site, unspecified type Medical Decision MakingProblems Addressed:Amputation stump infection: acute illness or injuryCellulitis of left lower extremity: acute illness or injuryFolliculitis: acute illness or injuryAmount and/or Complexity of Data ReviewedLabs: ordered. Decision-making details documented in ED Course.Radiology: ordered and independent interpretation performed. Decision-making details documented in ED Course.RiskPrescription drug management.Parenteral controlled substances.Decision regarding hospitalization.Limitations to patient care and compliance: none.Assessment/Summary:The patient is a 57-year-old gentleman who presents for redness to his left lower extremity stump. 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 Last year the patient had undergone a BKA. He states he has yellow fluid leaking from his stump and it is also red and warm. On exam it appears to be cellulitic. He also complains of a "red bump" on his right neck line. He appears to have folliculitis. The patient was worked up in the emergency department. Chemistry studies are within acceptable limits except for glucose of 226. He does not have a gap or any signs of acidosis. White count is 10. Lactate is 2.3. CT of the lower extremity does demonstrate signs of cellulitis and a possible developing abscess. He was started on Vanco and Zosyn. Also of note, the patient appears to have signs of osteomyelitis. Dr. Shields was consulted and she states she will see the patient in consultation on the floor. The patient was admitted to the medicine service for further management.History, physical exam findings, results of visit, differential diagnosis, medication regimens and plan of future care have been considered. Additional MDM may be found in the ED course. Differential diagnosis considered and final disposition made based on information gathered during evaluation and may not be completely ruled out or specifically listed. Vital signs were rechecked before final disposition.Diagnosis Final diagnoses: [T87.40] Amputation stump infection (Primary) [L73.9] Folliculitis [L03.116] Cellulitis of left lower extremity [T81.49XA] Post-operative wound abscess [M86.9] Osteomyelitis, unspecified site, unspecified type Disposition & Follow Up ED Disposition ED Disposition Admit - Inpatient Condition -- Comment -- Current Discharge Medication List STOP taking these medications metoprolol tartrate (LOPRESSOR) 50 mg tablet Comments: Reason for Stopping: clopidogreL 75 mg tablet Comments: Reason for Stopping: cyclobenzaprine 5 mg tablet Comments: Reason for Stopping: gabapentin 300 mg capsule Comments: Reason for Stopping: QUEtiapine 50 mg tablet Comments: Reason for Stopping: Olvin Serra Jr. MDClinical Nursing Home Assistant Administrator ProfessorCARON Emergency DepartmentDragon Dictation Software is used frequently and may produce errors. Promptly contact for obvious discrepancies. Olvin Serra MD02/14/23 1603 27170-5Klztfyutr Emergency department ZjxfGO7493-61-19X92:03:55Physician Emergency department NoteTXT1.2.840.868273.1.13.104.2.7.2.150567| [id number] for patient mucj86419-3Oevpoadiu department NoteLNUT[address] XwisOxzbxumqcFoicxmsvjKIQL1291955152HVILQHDL JFDEYIJVHVHHLU7782-83-58X39:03:551.2.840.114 350.1.72.3.15|1.2.840.695755.1.13.104.2.7.2. [id number] [facility] 2022-12-25 10:42:00 [id number]/XCqseqjZQXJ4eWIzVEZMW/zC2PS Nay r+o41ks2BEwv/UO0hLaB82hR/5MbioQi1005-90-02L0 0:42:846005-[address] [address] PATIENT NAME: BRIGHT SALAZAR ADMIT DATE: 11/11/22ACCOUNT NO: [id number] ROOM NO: [facility] AGE: 57 REPORT TYPE: DISCHARGE SUMMARY SEX: M ADMITTING PHYSICIAN:Ezra Austin MD ATTENDING PHYSICIAN:Jimmy Mark MD ADMISSION DATE: 11/11/2022 00:59:00DISCHARGE DATE: 11/19/2022 21:44:00 ADMISSION DIAGNOSES:1. Postop wound infection.2. Abscess on the right side of the neck.3. Questionable Sepsis.4. Azotemia.5. Elevated troponin.6. Left below-knee amputation, stump nonhealing wound.7. 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 Diabetes mellitus.9. Hypertension.10. Hypokalemia.11. Dyslipidemia, mixed.12. Peripheral vascular disease and history of left below-knee amputation. DISCHARGE DIAGNOSES:1. Surgical wound infection.2. Recent right carotid endarterectomy with purulent drainage from the site.3. Hypokalemia.4. Hypertension.5. Acute appendicitis, status post laparoscopic appendectomy.6. Diabetes mellitus.7. Wound, right carotid endarterectomy site.8. History of coronary artery disease.9. Peripheral vascular disease. HOSPITAL COURSE: The patient is a 57-year-old male with a past medical historyof multivessel coronary artery disease and prior CABG and history of PCI andhistory of diabetes mellitus, dyslipidemia, hypertension, peripheral arterydisease, history of a stroke and right carotid stenosis, status post right CEAand also history of tobacco dependence and chronic, was presented to theemergency department for chief complaint of purulent drainage from right carotidendarterectomy site. The patient was admitted.Labs monitored closely.Cardiovascular thoracic surgeon, Dr. Kern, consulted and following the patient.The patient was in the ICU unit and ICU critical team were on board andfollowing the patient as well. The patient saw Dr. Kern and had a detaileddiscussion with the patient and recommendation was most of the time, fluidcollection could be drained locally as the wound was opened at lower neckincision and that would be sufficient, and that would be helping for thedrainage and recommended daily dressing changes, and if the drainage resolved PATIENT NAME: BRIGHT SALAZAR and the wound healed, apparently would not need any further surgicalintervention at this point. In addition, a wound culture was sent to rule outany infection. Also ID team, Dr. Martinez was on board and following thepatient. The patient was on antibiotic. For other chronic medical condition,we continued home medication as well. Also, Cardiology team was on board andfollowing the patient. For hypertension, we monitored blood pressure closelyand we continued home medications and Cardiology was on board for hypokalemia,we replaced it and we monitored his labs. Also, Surgery team was on board, andfor appendicitis, the patient had laparoscopic appendectomy by Surgery team.During course of his stay, he was stable, no acute event. All specialtyphysician cleared the patient be discharged home and follow up with primary carephysician and with them as outpatient setting. DISPOSITION: Please discharge the patient. CONDITION: Stable. ACTIVITY: As tolerated. DIET: Cardiac. MEDICATIONS: Please refer to medication list. INSTRUCTIONS AND RECOMMENDATIONS:1. Please follow up with primary care physician within 1 week.2. Take medications as directed.3. Come back to the hospital for worsening of the symptoms or any new issues. This dictation took more than 30 minutes. Dictated By: Kaylyn Saavedra MD Date Dictated: 12/25/2022 10:42:37Date Transcribed: 12/25/2022 12:50:39AA/ZANE/Miteshdeshaun #: [id number] ID: [id number] and Edited by Kaylyn Saavedra MD On 01/07/23 11:17:25 PM at 1119 PATIENT NAME: BRIGHT SALAZAR [id number]:50:00B.[id number] AVAvailable for patient tnwvASZUQCTANUMKAT3147-86-18X47:20:[address] [facility] 2022-11-29 07:24:00 [id number]/Z2IRMBwBxAum 1acw vo5+WKQm/RXDCT8S3SeNBOH4aNANEVnl8677-77-65J9 7:24:00 [facility] CenterEMERGENCY PROVIDER REPORTREPORT#:[id number] REPORT STATUS: SignedDATE:11/29/22 TIME: 723 PATIENT: BRIGHT SALAZAR UNIT #: [id number]#: [id number] ROOM/BED:AGE: 57 SEX: M PCP PHYS: No Primary or Family PhysicianSERVICE AUTHOR: Luis Enrique Mishra MD * ALL edits or amendments must be made on the electronic/computer document * HPI-General Illness GeneralInitial Greet Date/Time 11/29/22 0541 PresentationChief Complaint Abdominal pain Free Text HPI NotesFree Text HPI NotesThe patient is a 57-year-old male with a history of multiple medical problems who presents complaints of right-sided abdominal pain. The patient was admittedlast week for an appendectomy followed by a carotid endarterectomy after a stroke. He reports he has had right flank pain since the surgery but that last night it went from dull to sharp and has been hurting worse. He reports a history of kidney stones. No fever or chills. No nausea, vomiting, or diarrhea. He says the pain radiates to his back. Review of Systems ROS StatementsAll systems rev neg except as marked. Past Medical History - AdultStated Complaint KIDNEY PAINAllergiesCoded Allergies:Wrvagfi-QQY-EvB Reductase Inhibitor (Intermediate, JOINT PAIN 10/22/22) JOINT PAIN Home MedicationsActive ScriptsMETOPROLOL SUCC XL (TOPROL XL) 50 MG PO DAILY 30 Days #30 TAB Prov: 11/19/22VANCOMYCIN (VANCOCIN) 1 EACH IV ASDIR 34 Days #1 Prov: 11/19/22MEROPENEM (MERREM) 500 MG IV Q6H VANCOMYCIN (VANCOCIN) 1.25 GM IV Q12H MORPHINE SULFATE (MORPHINE) 15 MG PO Q8HPRN PRN pain 7-10 MORPHINE SULFATE (MORPHINE) 15 MG PO Q8HPRN PRN pain 7-10 #15 TABS Prov: 10/24/22CYCLOBENZAPRINE HCL (FLEXERIL) 5 MG PO TID PRN PRN MUSCLE SPASMS CYCLOBENZAPRINE HCL (FLEXERIL) 5 MG PO TID PRN PRN MUSCLE SPASMS #30 TAB Prov: 10/24/22CLOPIDOGREL (PLAVIX) 75 MG PO DAILY CLOPIDOGREL (PLAVIX) 75 MG PO DAILY #30 TAB Prov: 10/24/22EZETIMIBE (ZETIA) 10 MG PO BEDTIME EZETIMIBE (ZETIA) 10 MG PO BEDTIME #30 TAB Prov: 10/24/22ASPIRIN 81 MG PO DAILY ASPIRIN 81 MG PO DAILY #100 TAB Prov: 10/24/22QUEtiapine (SEROquel) 50 MG PO BID QUEtiapine (SEROquel) 50 MG PO BID #60 TAB Prov: 10/24/22GABAPENTIN (NEURONTIN) 400 MG PO TID GABAPENTIN (NEURONTIN) 400 MG PO TID #90 CAP Prov: 10/24/22SENNOSIDES/DOCUSATE SOD (JOS-COLACE 8.6/50 MG) 1 UDTAB PO BID PRN SENNOSIDES/DOCUSATE SOD (JOS-COLACE 8.6/50 MG) 1 UDTAB PO BID PRN #100 TAB Prov: 10/24/22DME - INSULIN SYRINGES (INSULIN SYRINGES) EACH MISC ASDIR DME - INSULIN SYRINGES (INSULIN SYRINGES) EACH MISC ASDIR #100 Prov: 10/24/22DME - GLUCOSE LANCETS (GLUCOSE LANCETS) EACH MISC DAILY DME - GLUCOSE LANCETS (GLUCOSE LANCETS) EACH MISC DAILY #100 Prov: 10/24/22DME - GLUCOSE METER (GLUCOSE METER) EACH MISC ASDIR DME - GLUCOSE METER (GLUCOSE METER) EACH MISC ASDIR #1 Prov: 10/24/22DME - GLUCOSE STRIPS (GLUCOSE STRIPS) EACH MISC DAILY DME - GLUCOSE STRIPS (GLUCOSE STRIPS) EACH MISC DAILY #100 Prov: 10/24/22INSULIN NPH HUMAN RECOM (HumuLIN N) 35 UNITS SUBQ BID MEALS INSULIN NPH HUMAN RECOM (HumuLIN N) 35 UNITS SUBQ BID MEALS #10 ML Prov: 06/11/22MORPHINE SULFATE (MORPHINE) 15 MG PO Q4H PRN PRN pain 7-10 MORPHINE SULFATE (MORPHINE) 15 MG PO Q4H PRN PRN pain 7-10 #60 TABS Prov: 11/20/22 Calculated Suicide Risk (nurs) No riskPast Medical History:Reports: Coronary artery disease, Diabetes mellitus, Hypertension, Dyslipidemia. Additional Medical HistoryDM 2 CAD, multivessel LVEF 50-55% Hypertension Hyperlipidemia Poor medical follow through and complaince. PVD Diabetic Neuropathy Lt BKA infection req'ing multiple rounds of antibiotics andhospitalizations. Falls Atherosclerosis to the thoracic aorta, coronary arteries, abdominal aortaand branching vessels Calcified granulomas RLL Degenerative disc disease L3-L5 and cervical spine Osteophytosis lower thoracic spine Right ICA stenosis 09/26/2022 Right MCA CVA 09/26/22 Indeterminate right parotid lesionsPast Surgical History:Reports: CABG (x4), Cholecystectomy. Additional Surgical HistoryR CEA 10/08/22 CABG and PCI 2009 Multiple toe amputations transmetatarsal amputation 2020 Left BKA 2 stage dditional Family HistoryFamily history of diabetes, no bleeding or clotting dyscrasiasAlcohol Use Last drink was rug Use Denies recreational drugsSmoking status for patients 13 years old or older: Unknown,if ever smokedAdditional Social HistoryLives alone. Stated his sister left so he is alone. Concerned he has not utilities on at his house. Physical Exam Vital SignsVital SignsFirst Documented: Result Date Time Pulse Ox 98 06/23 0543 B/P 150/91 11/29 0443 B/P Mean 110 11/29 542 O2 Delivery Room air 11/29 542 Temp 98.5 11/29 542 Pulse 89 11/29 0543 Resp 11/29 Last Documented: Result Date Time Pulse Ox 95 11/29 0700 B/P 133/65 11/29 0700 B/P Mean 91 11/29 0700 Pulse 85 11/29 0700 O2 Delivery Room air 11/29 542 Temp 98.5 11/29 0543 Resp 11/29 Review of Vital Signs Reviewed Basic Physical ExamBasic PE GEN: Well appearing/NAD, HEAD: Atraumatic/NC, EYES: PERRL, conj clear, ENT: Membranes moist, NECK: Supple, RESP: No resp distress, CV: Reg rate rhythm, SKIN: No rashes, warm/dry, NEURO: alert oriented, NEURO: gross movement NL, PSYCH: NL thought content Free Text PE NotesFree Text PE NotesAbdomen: Right-sided abdominal pain, no RRG, abdomen soft.Extremity: Left BKA Interpretation Diagnostics Lab Results InterpretationConsiderations Independ review imagingResultsLaboratory Tests 11/29/22 06:[Embedded Image Not Available]Laboratory Tests: 11/30 723 Urines Urine Color (YELLOW DESCRIPT) LIGHT-YELLOW Urine Appearance (CLEAR DESCRIPT) CLEAR Urine pH (4.6 - 8.0 pH UNITS) 6.0 Ur Specific [place] (1.001 - 1.035 SG) 1.031 Urine Protein ((NEG) <30 mg/dL) 20 (TRACE) H Urine Glucose (UA) (0 (NORMAL) mg/dL) NORMAL (0) Urine Ketones ((NEG) 0 mg/dL) NEGATIVE (0) Urine Blood (0 (NEG) mg/dL) NEGATIVE (0.00) Urine Nitrite (NEG SCREEN) NEGATIVE (0) Urine Bilirubin ((NEG) 0 mg/dL) NEGATIVE (0.0) Urine Urobilinogen ((NORM)<2.0 mg/Dl) NORMAL (0) Ur Leukocyte Esterase ((NEG) 0 Leuk/mcL) NEGATIVE (0) Urine RBC (0 - 3 #RBC/HPF) 0-3 Urine WBC (0 - 3 #WBC/HPF) 0-3 Urine Culture Screen (Cult byWBC Criteria) Crit NOTmet CULT-N/A Urine Comment (SpecComment NoteSPEC) SPECIMEN COMMENT 11/29 617 Chemistry Sodium (133 - 144 mmol/L) 137.0 Potassium (3.5 - 5.1 mmol/L) 4.3 Chloride (95 - 105 mmol/L) 106 H Carbon Dioxide (21 - 32 mmol/L) 24 Anion Gap (4.0 - 15.0 GAP calc) 7.0 BUN (7 - 18 MG/DL) 10 Creatinine (0.55 - 1.30 MG/DL) 0.70 Glomerular Filtr Rate (>60 estGFR) 107 Glucose (70 - 110 MG/DL) 74 Calcium (8.5 - 10.1 MG/DL) 8.5 Total Bilirubin (0.00 - 1.00 MG/DL) 0.39 Direct Bilirubin (0.00 - 0.30 MG/DL) < 0.10 Indirect Bilirubin (0.2 - 1.3 MG/DL) 0.39 AST (15 - 37 Unit/L) 38 H ALT (12 - 78 Unit/L) 21 Total Alk Phosphatase (45 - 117 Unit/L) 114 Total Protein (6.4 - 8.2 G/DL) 9.0 H Albumin (3.4 - 5.0 G/DL) 2.4 L Lipase (114 - 286 Unit/L) 136 Specimen Appearance (1 NORMAL Index/DL) 1 NORMAL <2 MG Specimen Hemolysis (1 NORMAL Index/DL) 4 SMALL 50-200 MG H Hematology WBC (4.1 - 12.1 K/mm3) 7.0 RBC (3.8 - 5.5 M/mm3) 4.37 Hgb (10.6 - 15.8 G/DL) 12.0 Hct (31.8 - 47.4 %) 36.6 MCV (80.1 - 101.1 fL) 83.8 MCH (25.3 - 35.3 pg) 27.5 MCHC (32.7 - 35.1 G/DL) 32.8 RDW (12.2 - 16.4 %) 13.5 Plt Count (155 - 337 K/mm3) 276 MPV (7.6 - 10.4 fL) 9.2 Recent Impressions:CAT SCAN - CT ABD PELVIS W/CONT 11/29 634 Report Impression - Status: SIGNED Entered: 11/29/2022 0652 IMPRESSION: 1. Patchy infiltrate is identified involving the left lower lobe andlingula.2. Ovoid fluid collection in the retrocecal region at this area ofthe appendectomy may represent an evolving hematoma however abscessremains diagnosis of exclusion.Impression By: [email or web address] - Jose Tang MD Lab Imaging StatementLaboratory radiographic studies reviewed and considered in the medical decision-making. Re-Evaluation MDM Free Text MDM NotesFree Text MDM NotesNumber and Complexity of Problems: High complexity MDM in a patient with multiple medical comorbidities presenting with abdominal painDifferential Diagnosis: Hematoma, chronic pain, abdominal wall pain. No evidence of abscess, perforation, obstruction, diverticulitis, stone MDM Data:External Documents reviewed: n/Jasbir EKG interpretation: n/Jasbir CT interpretation: Symptoms consistent with a hematoma, discussed with Dr. Ayers who agreesMy x-ray interpretation: n/Jasbir ultrasound interpretation: n/aLabs reviewed by me are significant for: Labs unremarkableDecision rules/scores evaluated: n/aDiscussed with: Dr. Ayers from surgery who said the patient is okay to follow-upin clinic as scheduledI considered admission for: n/a Treatment and Disposition:ED course: The patient is a 57-year-old male presenting with complaints of rightflank pain status post appendectomy which is now worsening. CT shows a hematomawithout signs of infection. Plan to DC with pain meds and outpatient surgical follow-up.Shared Decision making: Results, diagnosis, medications, follow-up plan, and return precautions discussed with the patientCode status: Full code ED CourseMedication(s) OrderedMedication(s) Ordered:Central Nervous System Agents Sig/Ekta Start time Last Medication Dose Route Stop Time Status Admin Morphine Sulfate 6 MG X1ED STA 11/29 0615 DC 11/29 IV 11/29 0716 0722 Gastrointestinal Drugs Sig/Ekta Start time Last Medication Dose Route Stop Time Status Admin Ondansetron HCl 4 MG X1ED STA 11/29 0615 DC 11/29 IV 11/29 0716 0721 Patient Discharge Departure Vital Signs/ConditionVital SignsFirst Documented: Result Date Time Pulse Ox 98 11/29 0543 B/P 150/91 11/29 0543 B/P Mean 110 11/29 0543 O2 Delivery Room air 11/29 542 Temp 98.5 11/29 0543 Pulse 89 11/29 0543 Resp 27 11/29 542 Last Documented: Result Date Time Pulse Ox 95 11/29 699 B/P 133/65 11/29 699 B/P Mean 91 11/29 699 Pulse 85 11/29 0700 O2 Delivery Room air 11/29 542 Temp 98.5 11/29 0543 Resp 27 11/29 0443 All vital signs available at the time of this entry have been reviewed. Clinical ImpressionClinical ImpressionPrimary Impression: Post-operative painSecondary Impressions: Hematoma Disposition DecisionDischarge )( Discharged to Home Yes )( Time 0800 )( Date 11/29/22 Discharge/Care Plan(Auto) PrescriptionsCurrent Visit ScriptsHYDROcodone/APAP (HYDROcodone/APAP 10/325) 1 TAB PO Q4H PRN PRN pain HYDROcodone/APAP (HYDROcodone/APAP 10/325) 1 TAB PO Q4H PRN PRN pain #15 TABS Prescriptions Reviewed Risks, Benefits, Alternative treatmentPatient Instructions ED HematomaAdditional InstructionsPlease return for chest pain, shortness of breath, feeling like you may pass out, symptoms worsened by exertion, leg swelling, any signs of infection or any other new or concerning symptoms. Please return if you cannot receive follow-up in the next 1 to 2 days. Please note that only your emergent findings were reviewed today. You should contact medical records to get a full report to review in detail with your primary care doctor. Many incidental findings will need outpatient follow-up.Follow-up with Dr. Ayers as scheduled at 0949RPT #:[id number] OF REPORTEDEmergency department eeuluw7502-09-66W47:24:00B.[id number] AVAvailable for patient naviYXJLTSLUAZVBXH4247-93-45U25:49:[address] [facility] 2022-11-19 12:39:00 [id number] SX0V VgqHGwFM+rLTxnc9eJ8RLt+n6rY6i6nE8144-81-92H8 2:39:00 [facility])Pharmacy Prog.Note-VancomycinREPORT#:[id number] REPORT STATUS: SignedDATE:11/19/22 TIME: 1239 PATIENT: BRIGHT SALAZAR UNIT #: [id number]#: [id number] [facility] AGE: 57 SEX: M ATTEND: Jimmy Mark [facility] AUTHOR: Viridiana Romano [facility] * ALL edits or amendments must be made on the electronic/computer document * Vancomycin Vancomycin Medication TherapyGoal: TROUGH 10-20 mcg/mlIndication for treatment:LEUKOCYTOSISVS and I/O:Vital SignsDate Temp Pulse Resp B/P B/P Mean Pulse Ox NsC393/12-11/19 36.7-37.0 80-88 12-18 103-157/57-82 74.1-106.7 93-96 72 hours ending at 0700 11/19 0700 11/18 1900 11/18 0700 11/17 1900 11/17 11/16 0700 1900Intake 1150.00 1975.00 800 1500.00 1520.00TotalOutput 7612 417 3648 1850 800 750TotalBalance 50.00 -575 325.00 -1050 700.00 770.00 Intake, 350FreeWaterIntake, IV 750.00 1075.00 1000.00 1170.00Intake, 400 900 800 500OralNumber 1BowelMovementsOutput, 1709 120 8460 1850 800 750Urine 72 Hour I O Total 11/19 0700 11/18 0700 11/17 0700 Intake Total 1150.00 2775.00 3020.00 Output Total 1675 3500 1550 Balance -525.00 -725.00 1470.00 Labs:Laboratory Test : 11/17 352 Chemistry BUN (7 - 18 MG/DL) 14 Creatinine (0.55 - 1.30 MG/DL) 0.64 Hematology WBC (4.1 - 12.1 K/mm3) 9.7 Treatment plan: consult, cont current regimen/dose (CONSULT EXTENDED TO 12/23)Rationale:A 57-year-old male, Status post left below-knee amputation; status post right carotid endarterectomy with wound dehiscence; status post appendectomy, postoperative day #5.Currently on 2 antimicrobial therapies for 6 weeks. (Meropenem and Vancomycin). Followed by ID... Dr Holli SHAHG: LEUKOCYTOSIS SD: 12/23 (37 DAYS) EXTENDED FROM ORIGINAL SD 11/18 (7 DAYS)GOAL 10-20 6 VANC 1 GM X 1 IN ED. ADD 1 GM X 1 THEN 1.25 GM Q12H.11/12 VT @ 1511=12.1, subtherapeutic, but will not increase dose due to UOP= 0.4ml/kg/hr over past 6 hrs <0.5, follow up on VT @ 1500 = 14.2 Continue same dose and frequency. No new trough scheduled unless changes in renal function.11/16 CONTINUE CURRENT DOSE. WILL ORDER ANOTHER LEVEL IN NEXT FEW DAYS11/19 END DATE OF 11/18 extended to 12/23 so dose 1.25 gm continued. New labs ordered.11/20 VT @ 1100 = PENDING LAB:6 SCR 0.896/5 SCR 0.646/6 SCR 0.646/7 SCr 0.60 68 SCR 0.806/9 SCR 0.736/10 SCR 0.576/11 SCR 0.646/14 SCR PENDING at 1252 RPT #:[id number] OF REPORTPRProgress [id number]:39:00B.[id number] Available for patient vndxWVALWVDHEQHHEF4827-92-39Y48:53:00 [facility] 2022-11-19 12:33:00 [id number]+ZaDwqbMAzK95/Jessa wgZZ spRBG1iUGnI8sEW40Mz2QnaqafUcQCYq8547-91-95D6 2:33:00 [facility] ([facility] SYSTEMCardiothoracic Surgery ProgREPORT#:[id number] REPORT STATUS: SignedDATE:11/19/22 TIME: 1233 PATIENT: BRIGHT SALAZAR UNIT #: [id number]#: [id number] [address] AGE: 57 SEX: M ATTEND: Jimmy Mark [facility] AUTHOR: Aurora Chao APRN * ALL edits or amendments must be made on the electronic/computer document * SubjectiveChief complaint:Drainage from right neck incision Review of SystemsConstitutional:Denies: chills, fatigue, fever. Skin:Denies: diaphoresis, swelling. Respiratory:Denies: AZEVEDO (dyspnea on exertion), hemoptysis, non productive cough, productive cough (sputum), SOB. Cardiovascular:Denies: chest pain, AZEVEDO (dyspnea on exertion), edema. GI:Denies: nausea, vomiting. Musculoskeletal:Reports: neck pain. Neuro:Denies: change in LOC, confusion, dizziness, headache, numbness, seizure, slurred speech, spinning sensation, weakness. All systems rev neg: except as marked Objective GeneralVS/I OLast Documented: Result Date Time Pulse Ox 93 11/19 725 B/P 142/62 11/19 725 B/P Mean 88.6 11/19 725 O2 Delivery Room air 11/19 725 Temp 98.2 11/19 725 Pulse 84 11/19 725 Resp 17 11/19 725 O2 Flow Rate 0 11/14 1353 FiO2 21 11/13 0720 24 hour I O ending at 0700: 11/19 0700 11/18 1900 Intake Total 1150.00 Output Total 1100 575 Balance 50.00 -575 Intake, IV 750.00 Intake, Oral 400 Output, Urine 1100 575 PATIENT WEIGHT: Weight (lb): Weight (oz): Weight (kg): 77.273 Dietitian Nutrition assessmentThe data set between the solid lines has been imported from the dietitian's assessment. BMI Calculated: 23.1Nutrition related diagnosis: Nutrition diagnosis details: Nutrition problem: Increased nutrient needsNutrition etiology: hypermetabolic demands of , infected surgical wound Nutrition signs and symptoms: abscess to neck s/p CVS , opening wound at bedside Nutrition prescription: Diabetic Diet Brandin BIDDietitian name: Michelle Rodriguezann MS, RD, LDAssessment completed: 11/18/22 Physical ExamGeneral appearance: alert, awake, oriented, no acute distress, pleasant, conversational, mental status normal, no respiratory distressWound/incision: Location:right neck Site condition: drainageHEENT: mucosal membranes moistNeck: full range of motionCardiovascular: BP/pulses equal bilat., regular rate rhythmRespiratory: aerating well, no distressAbdomen: no guardingExtremities: dry, moves allNeuro/RN MATERNITY: alert, oriented X 3, normal speech Diagnosis, Assessment PlanFree Text A P:57 y/o pt here for right neck wound, 1 month s/p CEAPt is hemodynamically stable, on room airNeck wound continues to heal, pt should have daily dressing changesWound cultures done infectious disease consulted and followingRest of management per primaryPt disposition SNF, can go anytime per CV surgery just follow daily dressing changes/wound careDiscussed with Dr. Kern will continue to follow until dc to SNF at 1242 RPT #:[id number] OF REPORTPRProgress [id number]:33:00B.[id number] Available for patient xfaeTWUGCSQHZTJFHL6048-40-08I74:42:[address] [facility] 2022-11-19 11:31:00 [id number] Xk9s CwqPe7+r6sXljS2KrDUzAVcsp8fdK+CI0232-58-11J2 1:31:780343-[address] [place], [place] [address] PATIENT NAME: BRIGHT SALAZAR ADMIT DATE: 11/11/22ACCOUNT NO: [id number] ROOM NO: B313 AGE: 57 REPORT TYPE: PROGRESS NOTE SEX: M ADMITTING PHYSICIAN:Ezra Austin MD ATTENDING PHYSICIAN:Jimmy Mark MD DATE: 11/19/2022 INFECTIOUS DISEASE PROGRESS NOTE TIME: 1130 hours. SUBJECTIVE: The patient is under sterile gown and is getting ready for a PICC line to be placed. The patient has no new issues or complaints. OBJECTIVE:VITAL SIGNS: Noted.GENERAL: He is lying under sterile gown, thus physical exam is deferred. first assistant manager's notes from yesterday are in the computer and noted. His current antimicrobial therapy is IV meropenem through 12/24/2022 and IVvancomycin through 12/23/2022. ASSESSMENT:1. A 57-year-old male.2. Debilitated state.3. Status post right carotid endarterectomy with wound dehiscence, all culturesremain negative.4. Status post left below-knee amputation, site has been healing very nicely. RECOMMENDATIONS: At the present time, the patient is stable and doing well frommy standpoint. His antimicrobial therapies will remain with the same end dates. He is cleared from my standpoint to go to another facility to continue care whenever that can be arranged for him. Dictated By: Jacquie De La Garza MD Date Dictated: 11/19/2022 11:31:00Date Transcribed: 11/19/2022 12:24:12KEON/JOSH/Haider #: [id number] ID: [id number] and Edited by Jacquie De La Garza MD On 11/19/22 1:16:53 PM PATIENT NAME: BRIGHT SALAZAR at 0118 PATIENT NAME: BRIGHT SALAZAR [id number]:24:00B.[id number] vailable for patient efuiXRFPYKXOQAVDWJ9602-68-92G18:18:[address] [facility] 2022-11-18 13:33:00 [id number]+eXwLFHHiIwunxa9nzOJrkFEDS yk +3u0f23T6xYYZ9YyIHYlWfCrHntA8g9325-46-38R2 3:33:00 [facility] CenterHospitalist Progress NoteREPORT#:[id number] REPORT STATUS: SignedDATE:11/18/22 TIME: 1333 PATIENT: BRIGHT SALAZAR UNIT #: [id number]#: [id number] [facility] AGE: 57 SEX: M ATTEND: Jimmy Mark AUTHOR: Jimmy Mark MD * ALL edits or amendments must be made on the electronic/computer document * SubjectiveChief complaint:R neck drainageHPI:This is a 57-year-old male with history of multivessel CAD with prior CABG and PCI, DM 2, hyperlipidemia, hypertension, PAD, CVA and right carotid stenosis status post right CEA 10-29, tobacco dependence and continues to smoke, presentedin the ED because of purulent drainage from right carotid endarterectomy site. Per patient, he was doing fine, and today he noticed that a copious amount of greenish discharge spilled out of his surgical wound right side of his neck. Hedenied fever chills, or increased pain in the neck. No shortness of breath, chest pain or palpitation. Patient did note that there was some redness around the surgical site. Patient was evaluated at [facility] and was subsequently transferred here because of a ring-enhancing abscess abutting the right carotid sheath. Work-up at [place] revealed a white count of 13.3,H H of 13.2 and 38.7 platelet of 453. BMP unremarkable except glucose of 174 BUN of 27 albumin 2.5. Lactic acid was within normal limits. EKG showed sinus rhythm with rate of 100 no acute ischemic changes. CT of the neck showeda rim-enhancing abscess versus phlegmon abutting the right carotid sheathpatient received a dose of Zosyn, cultures were done. Patient also complained of nonhealing wound BKA stump and increased pain. Paient was admitted here for right MCA CVA, status post right CEA 10-29, discharged to rehab 10 14 and discharged from rehab 10/25/2022. Objective GeneralVS/I O:Vital Signs: Date Time Temp Pulse Resp B/P B/P Pulse O2 O2 Flow FiO2 Mean Ox Delivery Rate 11/18 1304 80 18 110/64 79.7 94 Room air 11/18 0843 97.9 82 16 112/66 81.7 97 Room air 11/18 0446 98.1 87 17 125/73 90.6 94 11/18 0005 98.2 82 17 177/83 114.2 95 11/17 2249 84 126/68 87.4 11/18 2023 98.2 87 17 179/78 111.5 95 11/17 1636 98.2 79 17 145/75 98.8 94 Room air 24 hour I O ending at 0700: 11/18 0700 11/17 1900 Intake Total 1975.00 800 Output Total 1650 1850 Balance 325.00 -1050 Intake, IV 1075.00 Intake, Oral 900 800 Number 1 Bowel Movements Output, Urine 1650 1850 PATIENT WEIGHT: Weight (lb): Weight (oz): Weight (kg): 77.273 Medications:Active Meds + DC'd Last 24 HrsSterile Water (STERILE WATER) 10 ML .STK-MED ONE IV (DC) Sterile Water (STERILE WATER) 10 ML .STK-MED ONE IV (DC) Tramadol HCl (ULTRAM) 50 MG Q8H PRN PRN PO Meropenem (MERREM) 500 MG Q6H IV Sterile Water (STERILE WATER) 10 MLPromethazine HCl (PHENERGAN) 25 MG Q4H PRN PRN PO Gabapentin (NEURONTIN) 600 MG TID PO Ondansetron HCl (ZOFRAN) 4 MG Q4H PRN PRN IV Insulin Human NPH (HumuLIN N) 15 UNIT BID MEALS SUBQ Hydromorphone HCl (DILAUDID) 1 MG Q4H PRN PRN IV Ezetimibe (ZETIA) 10 MG BEDTIME PO Vancomycin HCl (Vancomycin HCl) 1.25 GM Q12H IV Sodium Chloride (NORMAL SALINE 250 ML) 250 MLAspirin (ASPIRIN) 81 MG DAILY PO Docusate Sodium (COLACE 100 MG CAP) 100 MG DAILY PO Metoprolol Succinate (TOPROL XL) 50 MG DAILY PO Quetiapine Fumarate (SEROqueL) 50 MG BID PO Miscellaneous Information (VANCOMYCIN PHARMACY TO DOSE) 1 EACH ASDIR IV (CKD) Cyclobenzaprine HCl (FLEXERIL) 5 MG TID PRN PRN PO Labetalol HCl (TRANDATE MDV) 10 MG Q4H PRN PRN IV Magnesium Oxide (MAG-OX 400) 400 MG ASDIR PRN PO Magnesium Oxide (MAG-OX 400) 800 MG ASDIR PRN PO Nitroglycerin (NITROSTAT) 0.4 MG Q5M PRN PRN SL Potassium Chloride (K-DUR) 20 MEQ ASDIR PRN PO Potassium Chloride (K-DUR) 40 MEQ ASDIR PRN PO Potassium Chloride (K-DUR) 40 MEQ ASDIR PRN PO Senna/Docusate Sodium (SENOKOT-S) 1 UDTAB BID PRN PRN PO Acetaminophen (TYLENOL EXTRA STRENGTH) 500 MG Q6H PRN PRN PO Dextrose/Water (DEXTROSE 50%-WATER) 25 ML ASDIR PRN IV (CKD) Glucagon (GLUCAGON) 1 MG ASDIR PRN IM Glucose Polymer (GLUTOSE) 15 GM ASDIR PRN PO Hydrocodone Bitart/Acetaminophen (NORCO 5/325 TABLET) 1 TAB Q6H PRN PRN PO Insulin Human Lispro (HUMALOG) See Admin Criteria ASDIR PRN SUBQ Lactated Ringer's (LACTATED RINGERS) 1,000 ML .[id number] IV Physical ExamCardiovascular: normal heart soundsRespiratory: aerating wellAbdomen: normal bowel sounds, soft ResultsFindings/Data:Laboratory Tests 11/18 11/18 11/18 11/17 11/17 1302 0844 0445 2022 1635 Chemistry POC Glucose (70 - 119 MG/DL) 189 H 132 H 159 H 191 H 199 H Diagnosis, Assessment PlanHospital course to date:This is a 57-year-old male with PMH significant for T2DM poorly controlled, hypertriglyceridemia, hypertension, coronary artery disease status post CABG andPCI since 2009, PAD, chronic neuropathy, 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 Patient was admitted to this hospital on 10/04/2022 for stroke like symptoms. Hewas found to have Right MCA infarct due to Right ICA thombus. Patient was then taken by Dr. Kern on 10/08/22 for Right CEA. He was then discharged to rehab on 10/14 and stayed thru 10/25. CT imaging from [place] demonstrated a rim-enhancing abscess versus phlegmon abutting the right carotid sheath. Admited to ICU for closer monitoring. CVSx has been notified by ED physician. Patient seen and examined as of 11/18/2022.Long-term antibiotics to be initiated.Requested for the PICC line.Once PICC line is placed patient can be discharged as per ID recommendations including vancomycin to be given until 12/24/2022 along with cefepime.Please refer to her note.Plan for PICC line Patient seen and examined at as of 11/17/2022.Remains afebrile we will continue with the vancomycin.Patient is also concerned about the stump infection which have seen twice in there is no drainage good granulation tissue at the base.Patient likely can be discharged once long-term antibiotic therapy is established by ID.Patient's vancomycin will be continued till 12/24/2022 along with cefepime.PICC line requested.Patient can be discharged. Patient seen and examined as of 10/22/2022.Remains afebrile overnight continue with the current antibiotic therapy.Patient likely would require long-term antibiotic therapy as per ID.He is requesting Dr. Herman to see his amputation with a skin graft as he is concerned its not healing well.Will request on Friday.All the labs are reviewed. Patient seen and examined as of 11/15/2022.Patient had episodes of vomiting in the morning one of the vomitus had blood in it.Start the patient on Protonix.Patient is not known to have acute liver disease no alcoholism no cirrhosis.The vomitus after that did not have any blood I do not think there is a Alicia-Lepe tear.Start the patient on Protonix twice daily.Carafate.Keep the patient n.p.o. ice chips.Abdominal examination is benign abdominal sounds were normal abdomen was softer than yesterday. Labs imaging reviewed personally. Plan discussed with the patient and the RN along with the charge nurse. Time spent 37 minutes Patient seen and examined as of 11/14/2022.Patient continues to complain of abdominal pain post appendectomy.He is already on Dilaudid 1 mg every 4 hours along with the every 6 hours of 10/09/2024 of [facility].He wants more pain medications I have concerns about developing ileus and other complications with IV opiate dosing.I have asked him that I will use multimodality pain approach and start the patient on the gabapentin at a higher dose than before and use a double strengthof Tylenol. I also looked at the wound of the left below-knee amputation site.Patient was stating that it developing an ulcer which is bleeding.On my clinical examination the patient's wound is actually healing with good granulation tissue which is not oozing and is actually getting better.I replaced is a dressing by myself self. Patient will be continued on cefepime and vancomycin.Once ID gives us the recommendations on the cultures from the neck area comes out to be negative we will follow-up with the recommendations. Plan discussed and agreed with the patient. He denies to have any fever chills and rigors on the abdominal examination there is more of a guarding I do not believe that he is got much of tenderness at that site where laparoscopic holes were made in theabdomen. There are well-healing. He is drinking enough water regular diet.I will stop IV fluids. Reviewed the labs CBC CMP I will order them tomorrow again. Time spent 35 minutes Patient seen and examined as of 11/13/2022.Patient underwent laparoscopic appendectomy as of 11/13/2022.Patient will be transferred back to the ICU. Will continue to take care of the patient postoperatively in ICU.Empiric antibiotic therapy.Patient is already on antibiotic therapy because of the wound.We will add gram negatives and anaerobic coverage.Patient otherwise remains stable.Acute pain management. Wound right carotid endarterectomy site.ID on the case.Patient started on cefepime and IV vancomycin. Hypertension. Continue with current home medications and optimize blood pressures are slightly dorsal I will use IV labetalol 10 mg IV every 4 hours as needed to keep systolic blood pressure less than 160 Diabetes mellitus. Insulin sliding scale. Will consider glargine 10 units at night and optimized to keep blood glucose level less than 150 Coronary artery disease. Remains a stable no EKG changes telemetry reviewed personally. Continue antiplatelet therapy History of poor compliance previously. Patient has been documented to have poorcompliance which she could have resulted in infection. PVD. Continue home medicationsStatus post right MCA, CVA on 09/26/2022. Continue current home medicationsAll pertinant labs, Imaging, EKG, telemetry data,and medical records are reviewed by me personally. I have discussed the available findings, initial diagnosis and related differentials with the patient/day care center director including RN. All concerns and questions are answered to the best of my abilities based on theavailable data.I have initiated the plan of care based on preliminary diagnosis,requested appopriate consultations with labs/imagings. Patient/day care center director verbalizes understanding of the plan of care. Critical care time spent on the patient is 45-minute at 1335 RPT #:[id number] OF REPORTPRProgress [id number]:33:00B.[id number] Available for patient [id number]:35:[address] [facility] 2022-11-18 11:26:00 [id number] GLB3 S25kDfl/ywTQrNAD0ovb0bJ6LGudv8ID3167-35-66E3 1:26:[id number] [place] [address] PATIENT NAME: BRIGHT SALAZAR ADMIT DATE: 11/11/22ACCOUNT NO: [id number] ROOM NO: [facility] AGE: 57 REPORT TYPE: PROGRESS NOTE SEX: M ADMITTING PHYSICIAN:Ezra Austin MD ATTENDING PHYSICIAN:Jimmy Mark MD DATE: 11/18/2022 INFECTIOUS DISEASE PROGRESS NOTE TIME: 1125 hours. SUBJECTIVE: The patient is doing about the same. I discussed with the patient about going to another facility to continue antibiotic therapy and he is aware of that. OBJECTIVE:VITAL SIGNS: Noted.GENERAL: He is lying quietly in bed, nontoxic.NECK: Examination of the right neck region reveals the wound to be smaller. Still has packing in place, less erythema surrounding the wound. He is a littletender in the right supraspinatus muscle region of his posterior shoulder. There is no fluctuance noted.HEART: Regular rate. S1, S2 present.LUNGS: Fairly clear.ABDOMEN: Soft and quiet.EXTREMITIES: Examination of the left BKA site reveals it to be clean and dry with scant drainage on the dressing and no wound dehiscence. The open areas arehealing over very nicely and healing by secondary intention. LABORATORY STUDIES: The patient is on IV meropenem through 12/24/2022 and IV vancomycin through 12/23/2022. ASSESSMENT:1. A 57-year-old male.2. Recurring admissions.3. Debilitated state.4. Status post left below-knee amputation, site healing very nicely.5. Status post right carotid endarterectomy with wound dehiscence. Cultures were negative. He is on 2 antimicrobial therapies for 6 weeks.6. Status post appendectomy, postoperative day #5. RECOMMENDATIONS: At the present time, the patient is medically stable. At thispoint, I will continue the meropenem and vancomycin as ordered. He is cleared from my standpoint to go to another facility to continue care when that can be arranged for him. Dictated By: Jacquie De La Garza MD PATIENT NAME: BRIGHT SALAZAR Date Dictated: 11/18/2022 11:26:33Date Transcribed: 11/18/2022 11:40:07/Alina #: [id number] ID: [id number] by Jacquie De La Garza MD On 11/18/2022 01:46:50 PM at 0146 PATIENT NAME: BRIGHT SALAZAR [id number]:40:00B.[id number] vailable for patient [id number]:47:15 [facility] 10:21:00 [id number]/[id number] io2s +[id number] 0:21:00 [facility] ([facility])Cardiothoracic Surgery ProgREPORT#:[id number] REPORT STATUS: SignedDATE:11/18/22 TIME: 1021 PATIENT: BRIGHT SALAZAR UNIT #: [id number]#: [id number] [facility]: [facility] AGE: 57 SEX: M ATTEND: Jimmy Mark [facility] AUTHOR: Aurora Chao APRN * ALL edits or amendments must be made on the electronic/computer document * SubjectiveChief complaint:Drainage from right neck incision Review of SystemsConstitutional:Denies: chills, fatigue, fever. Skin:Denies: diaphoresis, swelling. Respiratory:Denies: AZEVEDO (dyspnea on exertion), hemoptysis, non productive cough, productive cough (sputum), SOB. Cardiovascular:Denies: chest pain, AZEVEDO (dyspnea on exertion), edema. GI:Reports: vomiting. Denies: nausea. Musculoskeletal:Reports: neck pain. Neuro:Denies: change in LOC, confusion, dizziness, headache, numbness, seizure, slurred speech, spinning sensation, weakness. All systems rev neg: except as marked Objective GeneralVS/I OLast Documented: Result Date Time Pulse Ox 97 11/18 0843 B/P 112/66 11/18 0843 B/P Mean 81.7 11/18 0843 O2 Delivery Room air 11/18 0843 Temp 97.9 11/18 0843 Pulse 82 11/18 0843 Resp 16 11/18 0843 O2 Flow Rate 0 11/14 1353 FiO2 21 11/13 0720 24 hour I O ending at 0700: 12 0700 11 1900 Intake Total 1975.00 800 Output Total 1650 1850 Balance 325.00 -1050 Intake, IV 1075.00 Intake, Oral 900 800 Number 1 Bowel Movements Output, Urine 1650 1850 PATIENT WEIGHT: Weight (lb): Weight (oz): Weight (kg): 77.273 Dietitian Nutrition assessmentThe data set between the solid lines has been imported from the dietitian's assessment. BMI Calculated: 23.1Nutrition related diagnosis: Nutrition diagnosis details: Nutrition problem: Increased nutrient needsNutrition etiology: hypermetabolic demands of , infected surgical wound Nutrition signs and symptoms: abscess to neck s/p CVS , opening wound at bedside Nutrition prescription: ADAT to Cardiac/Diabetic Diet Brandin BIDDietitian name: MS Iraj,RD,LD,CNSCAssessment completed: 11/11/22 Physical ExamGeneral appearance: alert, awake, oriented, no acute distress, pleasant, conversational, mental status normal, no respiratory distressWound/incision: Location:right neck Site condition: drainageHEENT: mucosal membranes moistNeck: full range of motionCardiovascular: BP/pulses equal bilat., regular rate rhythmRespiratory: aerating well, no distressAbdomen: no guardingExtremities: dry, moves allNeuro/RN MATERNITY: alert, oriented X 3, normal speech Diagnosis, Assessment PlanFree Text A P:57 y/o pt here for right neck wound, 1 month s/p CEAPt is hemodynamically stable, on room airPt states he had pain near abdominal area/CT scan was donePt found to have appendicitis/ general surgery consultedPt underwent lap Appy, recovering wellThe neck wound is less tender at the lower part of the incision on the right side has a small sinus opening which is draining serous fluid. The wound is opened and packed the neck with iodoform.Wound cultures done infectious disease consulted and followingDaily dressing changes I changed it today 11/18Discussed with Dr. Kern will continue to follow at 1025 [facility] #:[id number] OF REPORTPRProgress [id number]:21:00B.[id number] Available for patient [id number]:25:21 [facility] 2022-11-17 14:04:00 [id number]/ qStj [id number]/7892-69-15P2 4:04:00 [facility] Progress NoteREPORT#:[id number] REPORT STATUS: SignedDATE:11/17/22 TIME: 1404 PATIENT: BRIGHT SALAZAR UNIT #: [id number]#: [id number] [facility] [birth year] AGE: 57 SEX: M ATTEND: Jimmy Mark AUTHOR: Jimmy Mark MD * ALL edits or amendments must be made on the electronic/computer document * SubjectiveChief complaint:R neck drainageHPI:This is a 57-year-old male with history of multivessel CAD with prior CABG and PCI, DM 2, hyperlipidemia, hypertension, PAD, CVA and right carotid stenosis status post right CEA 10-29, tobacco dependence and continues to smoke, presentedin the ED because of purulent drainage from right carotid endarterectomy site. Per patient, he was doing fine, and today he noticed that a copious amount of greenish discharge spilled out of his surgical wound right side of his neck. Hedenied fever chills, or increased pain in the neck. No shortness of breath, chest pain or palpitation. Patient did note that there was some redness around the surgical site. Patient was evaluated at [facility] and was subsequently transferred here because of a ring-enhancing abscess abutting the right carotid sheath. Work-up at [place] revealed a white count of 13.3,H H of 13.2 and 38.7 platelet of 453. BMP unremarkable except glucose of 174 BUN of 27 albumin 2.5. Lactic acid was within normal limits. EKG showed sinus rhythm with rate of 100 no acute ischemic changes. CT of the neck showeda rim-enhancing abscess versus phlegmon abutting the right carotid sheathpatient received a dose of Zosyn, cultures were done. Patient also complained of nonhealing wound BKA stump and increased pain. Paient was admitted here for right MCA CVA, status post right CEA 10-29, discharged to rehab 10 14 and discharged from rehab 10/25/2022. Objective GeneralVS/I O:Vital Signs: Date Time Temp Pulse Resp B/P B/P Pulse O2 O2 Flow FiO2 Mean Ox Delivery Rate 11/17 1140 97.5 81 17 128/57 80.9 98 Room air 11/17 0750 96.6 80 17 149/83 105.1 98 Room air 11/17 0329 97.5 80 18 158/79 105.5 93 / 2309 97.7 83 18 138/78 98.0 98 Room air 11/16 1946 98.2 86 18 119/58 78.5 94 24 hour I O ending at 0700: 11/17 0700 11/16 1900 Intake Total 1500.00 1520.00 Output Total 800 750 Balance 700.00 770.00 Intake, Free 350 Water Intake, IV 1000.00 1170.00 Intake, Oral 500 Output, Urine 800 750 PATIENT WEIGHT: Weight (lb): Weight (oz): Weight (kg): 77.273 Physical ExamCardiovascular: normal heart soundsRespiratory: aerating wellAbdomen: normal bowel sounds, soft Diagnosis, Assessment PlanHospital course to date:This is a 57-year-old male with PMH significant for T2DM poorly controlled, hypertriglyceridemia, hypertension, coronary artery disease status post CABG andPCI since 2009, PAD, chronic neuropathy, 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 Patient was admitted to this hospital on 10/04/2022 for stroke like symptoms. Hewas found to have Right MCA infarct due to Right ICA thombus. Patient was then taken by Dr. Kern on 10/08/22 for Right CEA. He was then discharged to rehab on 10/14 and stayed thru 10/25. CT imaging from [place] demonstrated a rim-enhancing abscess versus phlegmon abutting the right carotid sheath. Admited to ICU for closer monitoring. CVSx has been notified by ED physician. Patient seen and examined at as of 11/17/2022.Remains afebrile we will continue with the vancomycin.Patient is also concerned about the stump infection which have seen twice in there is no drainage good granulation tissue at the base.Patient likely can be discharged once long-term antibiotic therapy is established by ID.Patient's vancomycin will be continued till 12/24/2022 along with cefepime.PICC line requested.Patient can be discharged. Patient seen and examined as of 10/22/2022.Remains afebrile overnight continue with the current antibiotic therapy.Patient likely would require long-term antibiotic therapy as per ID.He is requesting Dr. Herman to see his amputation with a skin graft as he is concerned its not healing well.Will request on Friday.All the labs are reviewed. Patient seen and examined as of 11/15/2022.Patient had episodes of vomiting in the morning one of the vomitus had blood in it.Start the patient on Protonix.Patient is not known to have acute liver disease no alcoholism no cirrhosis.The vomitus after that did not have any blood I do not think there is a Alicia-Lepe tear.Start the patient on Protonix twice daily.Carafate.Keep the patient n.p.o. ice chips.Abdominal examination is benign abdominal sounds were normal abdomen was softer than yesterday. Labs imaging reviewed personally. Plan discussed with the patient and the RN along with the charge nurse. Time spent 37 minutes Patient seen and examined as of 11/14/2022.Patient continues to complain of abdominal pain post appendectomy.He is already on Dilaudid 1 mg every 4 hours along with the every 6 hours of 10/09/2024 of [facility].He wants more pain medications I have concerns about developing ileus and other complications with IV opiate dosing.I have asked him that I will use multimodality pain approach and start the patient on the gabapentin at a higher dose than before and use a double strengthof Tylenol. I also looked at the wound of the left below-knee amputation site.Patient was stating that it developing an ulcer which is bleeding.On my clinical examination the patient's wound is actually healing with good granulation tissue which is not oozing and is actually getting better.I replaced is a dressing by myself self. Patient will be continued on cefepime and vancomycin.Once ID gives us the recommendations on the cultures from the neck area comes out to be negative we will follow-up with the recommendations. Plan discussed and agreed with the patient. He denies to have any fever chills and rigors on the abdominal examination there is more of a guarding I do not believe that he is got much of tenderness at that site where laparoscopic holes were made in theabdomen. There are well-healing. He is drinking enough water regular diet.I will stop IV fluids. Reviewed the labs CBC CMP I will order them tomorrow again. Time spent 35 minutes Patient seen and examined as of 11/13/2022.Patient underwent laparoscopic appendectomy as of 11/13/2022.Patient will be transferred back to the ICU. Will continue to take care of the patient postoperatively in ICU.Empiric antibiotic therapy.Patient is already on antibiotic therapy because of the wound.We will add gram negatives and anaerobic coverage.Patient otherwise remains stable.Acute pain management. Wound right carotid endarterectomy site.ID on the case.Patient started on cefepime and IV vancomycin. Hypertension. Continue with current home medications and optimize blood pressures are slightly dorsal I will use IV labetalol 10 mg IV every 4 hours as needed to keep systolic blood pressure less than 160 Diabetes mellitus. Insulin sliding scale. Will consider glargine 10 units at night and optimized to keep blood glucose level less than 150 Coronary artery disease. Remains a stable no EKG changes telemetry reviewed personally. Continue antiplatelet therapy History of poor compliance previously. Patient has been documented to have poorcompliance which she could have resulted in infection. PVD. Continue home medicationsStatus post right MCA, CVA on 09/26/2022. Continue current home medicationsAll pertinant labs, Imaging, EKG, telemetry data,and medical records are reviewed by me personally. I have discussed the available findings, initial diagnosis and related differentials with the patient/day care center director including RN. All concerns and questions are answered to the best of my abilities based on theavailable data.I have initiated the plan of care based on preliminary diagnosis,requested appopriate consultations with labs/imagings. Patient/day care center director verbalizes understanding of the plan of care. Critical care time spent on the patient is 45-minute at 1406 [facility] #:[id number] OF REPORTPRProgress [id number]:04:00B.[id number] Available for patient [id number]:07:[address] [facility] 2022-11-17 11:09:00 [id number]/2VzjO 1BR5 nR7DXW2A4/YBriyO/[id number] 1:09:[id number] [place] [address] PATIENT NAME: BRIGHT SALAZAR ADMIT DATE: 11/11/22ACCOUNT NO: [id number] ROOM NO: [facility] AGE: 57 REPORT TYPE: PROGRESS NOTE SEX: M ADMITTING PHYSICIAN:Ezra Austin MD ATTENDING PHYSICIAN:Jimmy Mark MD DATE: 11/17/2022 INFECTIOUS DISEASE PROGRESS NOTE TIME: 1108 hours. SUBJECTIVE: The patient has no new issues. I discussed with the patient he is doing well on his current antimicrobial therapies. OBJECTIVE:VITAL SIGNS: Noted.GENERAL: Lying quietly in bed, nontoxic.NECK: Examination of right neck region reveals packing to be in place. There is less erythema, less edema in the surgical site.HEART: Regular rate. S1, S2.LUNGS: Fairly clear.ABDOMEN: Soft and quiet. LABORATORY DATA: His white count today is 9700, continues to decline. Hemoglobin is 10.1; platelet count is 415,000. His chemistry profile today shows a BUN of 14 and creatinine 0.64. Protein 7.4, albumin 2.1, AST 22, ALT of ____, alkaline phosphatase of 79. Antimicrobial therapy is IV meropenem through 12/24/2022 and IV vancomycin through 12/23/2022. ASSESSMENT:1. A 57-year-old male.2. Debilitated state.3. Recurring admissions.4. Leukocytosis, dramatically improved with change in antimicrobial therapy.5. Status post right carotid endarterectomy with wound dehiscence and cultures remain negative.6. Status post left ngpbx-edx-fnol amputation, site healing nicely.7. Status post appendectomy, postop day #4. RECOMMENDATIONS: At the present time, the patient is stable. I will continue his antimicrobial therapies as ordered. The meropenem will be completed on 12/24/2022 and vancomycin will be completed on 12/23/2022. From my standpoint, he is cleared to go to SNF to continue his antimicrobial therapies once he is cleared by all other physicians as well. PATIENT NAME: BRIGHT SALAZAR Dictated By: Jacquie De La Garza MD Date Dictated: 11/17/2022 11:09:59Date Transcribed: 11/17/2022 11:46:01CC/ED/Kumar #: [id number] ID: [id number] by Jacquie De La Garza MD On 11/17/2022 01:20:57 PM at 0120 PATIENT NAME: BRIGHT SALAZAR [id number]:46:00B.[id number] vailable for patient [id number]:21:[address] [facility] 2022-11-16 17:30:00 [id number]+ cT6m 1XEIxLh4xz6/pcIpk35YzI5K/U8qXBHC6993-32-59Q8 7:30:00 [facility] [facility]Hospitalist Progress NoteREPORT#:[id number] REPORT STATUS: SignedDATE:11/16/22 TIME: 1730 PATIENT: BRIGHT SALAZAR UNIT #: [id number]#: [id number] [facility] [birth year] AGE: 57 SEX: M ATTEND: Jimmy Mark [facility] AUTHOR: Jimmy Mark MD * ALL edits or amendments must be made on the electronic/computer document * SubjectiveChief complaint:R neck drainageHPI:This is a 57-year-old male with history of multivessel CAD with prior CABG and PCI, DM 2, hyperlipidemia, hypertension, PAD, CVA and right carotid stenosis status post right CEA 10-29, tobacco dependence and continues to smoke, presentedin the ED because of purulent drainage from right carotid endarterectomy site. Per patient, he was doing fine, and today he noticed that a copious amount of greenish discharge spilled out of his surgical wound right side of his neck. Hedenied fever chills, or increased pain in the neck. No shortness of breath, chest pain or palpitation. Patient did note that there was some redness around the surgical site. Patient was evaluated at [facility] and was subsequently transferred here because of a ring-enhancing abscess abutting the right carotid sheath. Work-up at [place] revealed a white count of 13.3,H H of 13.2 and 38.7 platelet of 453. BMP unremarkable except glucose of 174 BUN of 27 albumin 2.5. Lactic acid was within normal limits. EKG showed sinus rhythm with rate of 100 no acute ischemic changes. CT of the neck showeda rim-enhancing abscess versus phlegmon abutting the right carotid sheathpatient received a dose of Zosyn, cultures were done. Patient also complained of nonhealing wound BKA stump and increased pain. Paient was admitted here for right MCA CVA, status post right CEA 10-29, discharged to rehab 5 8 and discharged from rehab 10/25/2022. Objective GeneralVS/I O:Vital Signs: Date Time Temp Pulse Resp B/P B/P Pulse O2 O2 Flow FiO2 Mean Ox Delivery Rate 11/16 1150 98.1 86 17 110/65 80.2 93 Room air 11/16 1004 86 137/80 98.8 11/16 0756 98.4 83 18 119/76 90.2 92 Room air 11/16 0339 97.9 80 17 120/66 83.7 97 11/16 0018 98.2 86 17 141/77 98.2 96 11/15 2002 98.2 81 17 123/69 87.2 95 24 hour I O ending at 0700: 11/16 0700 11/15 1900 Intake Total 1000.00 Output Total 600 Balance 400.00 Intake, IV 1000.00 Output, Urine 600 PATIENT WEIGHT: Weight (lb): Weight (oz): Weight (kg): 77.273 Physical ExamCardiovascular: normal heart soundsRespiratory: aerating wellAbdomen: normal bowel sounds, soft Diagnosis, Assessment PlanHospital course to date:This is a 57-year-old male with PMH significant for T2DM poorly controlled, hypertriglyceridemia, hypertension, coronary artery disease status post CABG andPCI since 2009, PAD, chronic neuropathy, 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 Patient was admitted to this hospital on 10/04/2022 for stroke like symptoms. Hewas found to have Right MCA infarct due to Right ICA thombus. Patient was then taken by Dr. Kern on 10/08/22 for Right CEA. He was then discharged to rehab on 10/14 and stayed thru 10/25. CT imaging from [place] demonstrated a rim-enhancing abscess versus phlegmon abutting the right carotid sheath. Admited to ICU for closer monitoring. CVSx has been notified by ED physician. Patient seen and examined as of 10/22/2022.Remains afebrile overnight continue with the current antibiotic therapy.Patient likely would require long-term antibiotic therapy as per ID.He is requesting Dr. Herman to see his amputation with a skin graft as he is concerned its not healing well.Will request on Friday.All the labs are reviewed. Patient seen and examined as of 11/15/2022.Patient had episodes of vomiting in the morning one of the vomitus had blood in it.Start the patient on Protonix.Patient is not known to have acute liver disease no alcoholism no cirrhosis.The vomitus after that did not have any blood I do not think there is a Alicia-Lepe tear.Start the patient on Protonix twice daily.Carafate.Keep the patient n.p.o. ice chips.Abdominal examination is benign abdominal sounds were normal abdomen was softer than yesterday. Labs imaging reviewed personally. Plan discussed with the patient and the RN along with the charge nurse. Time spent 37 minutes Patient seen and examined as of 11/14/2022.Patient continues to complain of abdominal pain post appendectomy.He is already on Dilaudid 1 mg every 4 hours along with the every 6 hours of 10/09/2024 of [facility].He wants more pain medications I have concerns about developing ileus and other complications with IV opiate dosing.I have asked him that I will use multimodality pain approach and start the patient on the gabapentin at a higher dose than before and use a double strengthof Tylenol. I also looked at the wound of the left below-knee amputation site.Patient was stating that it developing an ulcer which is bleeding.On my clinical examination the patient's wound is actually healing with good granulation tissue which is not oozing and is actually getting better.I replaced is a dressing by myself self. Patient will be continued on cefepime and vancomycin.Once ID gives us the recommendations on the cultures from the neck area comes out to be negative we will follow-up with the recommendations. Plan discussed and agreed with the patient. He denies to have any fever chills and rigors on the abdominal examination there is more of a guarding I do not believe that he is got much of tenderness at that site where laparoscopic holes were made in theabdomen. There are well-healing. He is drinking enough water regular diet.I will stop IV fluids. Reviewed the labs CBC CMP I will order them tomorrow again. Time spent 35 minutes Patient seen and examined as of 11/13/2022.Patient underwent laparoscopic appendectomy as of 11/13/2022.Patient will be transferred back to the ICU. Will continue to take care of the patient postoperatively in ICU.Empiric antibiotic therapy.Patient is already on antibiotic therapy because of the wound.We will add gram negatives and anaerobic coverage.Patient otherwise remains stable.Acute pain management. Wound right carotid endarterectomy site.ID on the case.Patient started on cefepime and IV vancomycin. Hypertension. Continue with current home medications and optimize blood pressures are slightly dorsal I will use IV labetalol 10 mg IV every 4 hours as needed to keep systolic blood pressure less than 160 Diabetes mellitus. Insulin sliding scale. Will consider glargine 10 units at night and optimized to keep blood glucose level less than 150 Coronary artery disease. Remains a stable no EKG changes telemetry reviewed personally. Continue antiplatelet therapy History of poor compliance previously. Patient has been documented to have poorcompliance which she could have resulted in infection. PVD. Continue home medicationsStatus post right MCA, CVA on 09/26/2022. Continue current home medicationsAll pertinant labs, Imaging, EKG, telemetry data,and medical records are reviewed by me personally. I have discussed the available findings, initial diagnosis and related differentials with the patient/day care center director including RN. All concerns and questions are answered to the best of my abilities based on theavailable data.I have initiated the plan of care based on preliminary diagnosis,requested appopriate consultations with labs/imagings. Patient/day care center director verbalizes understanding of the plan of care. Critical care time spent on the patient is 45-minute at 1731 RPT #:[id number] OF REPORTPRProgress [id number]:30:[id number] Available for patient [id number]:32:[address] [facility] 2022-11-16 13:07:00 [id number] eV3S UafuIv+[id number] 3:07:00 [facility] ProgREPORT#:[id number] REPORT STATUS: SignedDATE:11/16/22 TIME: 1307 PATIENT: BRIGHT SALAZAR UNIT #: [id number]#: [id number] [facility] AGE: 57 SEX: M ATTEND: Jimmy Mark [facility] AUTHOR: Kelvin Kern MD * ALL edits or amendments must be made on the electronic/computer document * SubjectiveChief complaint:Drainage from right neck incision Objective Physical ExamWound/incision: Location:right neck Site condition: drainageHEENT: mucosal membranes moistNeck: full range of motionCardiovascular: BP/pulses equal bilat., regular rate rhythmRespiratory: aerating well, no distressAbdomen: no guardingExtremities: dry, moves allNeuro/RN MATERNITY: alert, oriented X 3, normal speech Diagnosis, Assessment PlanFree Text A P:57 y/o pt here for right neck wound, 1 month s/p CEAPt is hemodynamically stable, pt states he was vomitting blood last night, primary followingToday when I saw him he denied any nausea, pt is NPO pending further workup for thisPt states he had pain near abdominal area/CT scan was donePt found to have appendicitis/ general surgery consultedPt underwent lap Appy, recovering wellThe neck wound is less tender at the lower part of the incision on the right side has a small sinus opening which is draining serous fluid. The wound is opened and packed the neck with iodoform.Wound cultures pending infectious disease consulted and followingDaily dressing changes. at 1307 RPT #:[id number] OF REPORTPRProgress [id number]:07:[id number] Available for patient [id number]:07:[address] [facility] 2022-11-16 11:59:00 [id number] e9kl [id number] 1:59:[id number] [place] [address] PATIENT NAME: BRIGHT SALAZAR ADMIT DATE: 11/11/22ACCOUNT NO: [id number] ROOM NO: [facility] AGE: 57 REPORT TYPE: PROGRESS NOTE SEX: M ADMITTING PHYSICIAN:Ezra Austin MD ATTENDING PHYSICIAN:Jimmy Mark MD DATE: 11/16/2022 INFECTIOUS DISEASE PROGRESS NOTE TIME: 1157 hours. SUBJECTIVE: I discussed with the patient that his white count is decreased with the change of antibiotics which is good. However, he needs 6 weeks of antibiotic therapy. The patient does not have transportation so he will not be able to go home and do antibiotic therapy at home. Thus, I recommend placement. Case discussed briefly with the high risk case manager today. OBJECTIVE:VITAL SIGNS: Noted.GENERAL: He is lying quietly in bed, nontoxic.HEART: Regular rate. S1, S2 present.LUNGS: Fairly clear.ABDOMEN: Soft and quiet.EXTREMITIES: His right ____ site has still packing in place with mild erythemasurrounding the surgical site. His left BKA site has scant drainage on thedressing and it is healing very nicely. LABORATORY DATA: The patient has no new cultures. Culture of his right ____site from 11/11/2022 has remained negative. His white count today is 10,200, yesterday was 17,700, so quite a bit lower.Today, his hemoglobin is 9.4, platelet count is 420,000. His metabolic profileshows a BUN of 10, creatinine 0.57, protein 7.6, albumin 2, AST of 19, ALT of____, and alkaline phosphatase of 79. His urinalysis yesterday showed 0-3 white cells per high power field. IMAGING STUDIES: His chest x-ray yesterday 11/15/2022 showed no acute process. His current antimicrobial therapies are IV vancomycin and IV meropenem, startedyesterday. ASSESSMENT:1. A 57-year-old male.2. Leukocytosis, dramatically improved with change of antibiotic therapy. PATIENT NAME: BRIGHT SALAZAR 3. Status post right carotid endarterectomy with wound dehiscence, cultureshave remained negative.4. Status post left below-knee amputation, site healing nicely.5. Status post appendectomy, postop day#3. RECOMMENDATIONS: At the present time, the patient is stable. At this point, Irecommend a 6-week course of both the vancomycin and meropenem. Thus, the IVvancomycin will be completed on 12/23/2022 and IV meropenem will be completed on12/24/2022. I have consulted the high risk case manager in regards to disposition and placement forantibiotic therapy since he is not a candidate to do them at home since hecannot followup after discharge. All of his questions were answered. Total time greater than 35 minutes. Dictated By: Jacquie De La Garza MD Date Dictated: 11/16/2022 11:59:58Date Transcribed: 11/16/2022 12:31:06KEON/Koffi #: [id number] ID: [id number] and Edited by Jacquie De La Garza MD On 11/16/22 1:08:02 PM at 0109 PATIENT NAME: BRIGHT SALAZAR [id number]:31:[id number] vailable for patient [id number]:10:[address] [facility] 2022-11-15 15:56:00 [id number] gQGc [id number] 5:56:00 [facility] ([facility] SYSTEMHospitalist Progress NoteREPORT#:[id number] REPORT STATUS: SignedDATE:11/15/22 TIME: 1556 PATIENT: BRIGHT SALAZAR UNIT #: [id number]#: [id number] [facility] [birth year] AGE: 57 SEX: M ATTEND: Jimmy Mark [facility] AUTHOR: Jimmy Mark MD * ALL edits or amendments must be made on the electronic/computer document * SubjectiveChief complaint:R neck drainageHPI:This is a 57-year-old male with history of multivessel CAD with prior CABG and PCI, DM 2, hyperlipidemia, hypertension, PAD, CVA and right carotid stenosis status post right CEA 10-29, tobacco dependence and continues to smoke, presentedin the ED because of purulent drainage from right carotid endarterectomy site. Per patient, he was doing fine, and today he noticed that a copious amount of greenish discharge spilled out of his surgical wound right side of his neck. Hedenied fever chills, or increased pain in the neck. No shortness of breath, chest pain or palpitation. Patient did note that there was some redness around the surgical site. Patient was evaluated at [facility] and was subsequently transferred here because of a ring-enhancing abscess abutting the right carotid sheath. Work-up at [place] revealed a white count of 13.3,H H of 13.2 and 38.7 platelet of 453. BMP unremarkable except glucose of 174 BUN of 27 albumin 2.5. Lactic acid was within normal limits. EKG showed sinus rhythm with rate of 100 no acute ischemic changes. CT of the neck showeda rim-enhancing abscess versus phlegmon abutting the right carotid sheathpatient received a dose of Zosyn, cultures were done. Patient also complained of nonhealing wound BKA stump and increased pain. Paient was admitted here for right MCA CVA, status post right CEA 10-29, discharged to rehab 10 14 and discharged from rehab 10/25/2022. Objective GeneralVS/I O:Vital Signs: Date Time Temp Pulse Resp B/P B/P Pulse O2 O2 Flow FiO2 Mean Ox Delivery Rate 11/15 1538 95 Room air 11/15 1524 98.1 87 17 136/69 91.6 97 Room air 11/15 1144 97.7 86 17 155/88 110.3 95 Room air / 0725 97.9 86 18 160/80 106.7 96 Room air 11/15 0411 97.7 94 14 165/90 0.0 98 Room air 11/15 0133 96 Room air 11/14 2301 97.7 96 14 177/82 113.5 94 Room air / 2039 97.5 93 14 176/80 112.2 93 Room air / 1600 97.3 84 18 142/71 94.6 95 24 hour I O ending at 0700: 11/15 0700 / 1900 Intake Total 1170.00 915.00 Output Total 1950 600 Balance -780.00 315.00 Intake, IV 1170.00 375.00 Intake, Oral 540 Number 1 Bowel Movements Output, 100 Emesis Output, Urine 1850 600 PATIENT WEIGHT: Weight (lb): Weight (oz): Weight (kg): 77.273 Medications:Active Meds + DC'd Last 24 HrsMeropenem (MERREM) 500 MG Q6H IV Sterile Water (STERILE WATER) 10 MLPromethazine HCl (PHENERGAN) 25 MG Q4H PRN PRN PO Gabapentin (NEURONTIN) 600 MG TID PO Ondansetron HCl (ZOFRAN) 4 MG Q4H PRN PRN IV Pantoprazole (PROTONIX) 40 MG NOW ONE IV (DC) Insulin Human NPH (HumuLIN N) 15 UNIT BID MEALS SUBQ Hydromorphone HCl (DILAUDID) 1 MG Q4H PRN PRN IV Ezetimibe (ZETIA) 10 MG BEDTIME PO Vancomycin HCl (Vancomycin HCl) 1.25 GM Q12H IV Sodium Chloride (NORMAL SALINE 250 ML) 250 MLCefepime HCl (MAXIPIME) 2 GM Q8HR IV (DC) Sterile Water (STERILE WATER) 20 MLAspirin (ASPIRIN) 81 MG DAILY PO Docusate Sodium (COLACE 100 MG CAP) 100 MG DAILY PO Metoprolol Succinate (TOPROL XL) 50 MG DAILY PO Quetiapine Fumarate (SEROqueL) 50 MG BID PO Miscellaneous Information (VANCOMYCIN PHARMACY TO DOSE) 1 EACH ASDIR IV (CKD) Cyclobenzaprine HCl (FLEXERIL) 5 MG TID PRN PRN PO Labetalol HCl (TRANDATE MDV) 10 MG Q4H PRN PRN IV Magnesium Oxide (MAG-OX 400) 400 MG ASDIR PRN PO Magnesium Oxide (MAG-OX 400) 800 MG ASDIR PRN PO Nitroglycerin (NITROSTAT) 0.4 MG Q5M PRN PRN SL Potassium Chloride (K-DUR) 20 MEQ ASDIR PRN PO Potassium Chloride (K-DUR) 40 MEQ ASDIR PRN PO Potassium Chloride (K-DUR) 40 MEQ ASDIR PRN PO Senna/Docusate Sodium (SENOKOT-S) 1 UDTAB BID PRN PRN PO Acetaminophen (TYLENOL EXTRA STRENGTH) 500 MG Q6H PRN PRN PO Dextrose/Water (DEXTROSE 50%-WATER) 25 ML ASDIR PRN IV (CKD) Glucagon (GLUCAGON) 1 MG ASDIR PRN IM Glucose Polymer (GLUTOSE) 15 GM ASDIR PRN PO Hydrocodone Bitart/Acetaminophen (NORCO 5/325 TABLET) 1 TAB Q6H PRN PRN PO Insulin Human Lispro (HUMALOG) See Admin Criteria ASDIR PRN SUBQ Lactated Ringer's (LACTATED RINGERS) 1,000 ML .[id number] IV Mupirocin (BACTROBAN) 1 APPLIC BID NASAL (DC) Physical ExamGeneral appearance: awakeCardiovascular: normal heart soundsRespiratory: aerating wellAbdomen: normal bowel sounds, soft ResultsFindings/Data:Laboratory Tests 11/15 11/15 11/15 1232 1232 1143 Chemistry Sodium (133 - 144 mmol/L) 137.0 Potassium (3.5 - 5.1 mmol/L) 3.9 Chloride (95 - 105 mmol/L) 102 Carbon Dioxide (21 - 32 mmol/L) 30 Anion Gap (4.0 - 15.0 GAP calc) 5.0 BUN (7 - 18 MG/DL) 12 Creatinine (0.55 - 1.30 MG/DL) 0.68 Glomerular Filtr Rate (>60 estGFR) 108 Glucose (70 - 110 MG/DL) 142 H POC Glucose (70 - 119 MG/DL) 132 H Lactic Acid (0.4 - 2.0 mmol/L) 1.3 Calcium (8.5 - 10.1 MG/DL) 8.5 Total Bilirubin (0.00 - 1.00 MG/DL) 0.19 Direct Bilirubin (0.00 - 0.30 MG/DL) < 0.10 Indirect Bilirubin (0.2 - 1.3 MG/DL) 0.19 L AST (15 - 37 Unit/L) 17 ALT (12 - 78 Unit/L) 20 Total Alk Phosphatase (45 - 117 Unit/L) 86 Total Protein (6.4 - 8.2 G/DL) 8.4 H Albumin (3.4 - 5.0 G/DL) 2.1 L Albumin/Globulin Ratio (1.2 - 2.2 RATIO) 0.3 L Specimen Appearance (1 NORMAL Index/DL) 1 NORMAL <2 MG Specimen Hemolysis (1 NORMAL Index/DL) 1 NORMAL <10 MG 11/15 11/15 11/14 4635 1472 2036 Chemistry Sodium (133 - 144 mmol/L) 136.0 Potassium (3.5 - 5.1 mmol/L) 4.6 Chloride (95 - 105 mmol/L) 99 Carbon Dioxide (21 - 32 mmol/L) 32 Anion Gap (4.0 - 15.0 GAP calc) 5.0 BUN (7 - 18 MG/DL) 15 Creatinine (0.55 - 1.30 MG/DL) 0.73 Glomerular Filtr Rate (>60 estGFR) 106 Glucose (70 - 110 MG/DL) 186 H POC Glucose (70 - 119 MG/DL) 191 H 233 H Calcium (8.5 - 10.1 MG/DL) 8.8 Total Bilirubin (0.00 - 1.00 MG/DL) 0.23 Direct Bilirubin (0.00 - 0.30 MG/DL) < 0.10 Indirect Bilirubin (0.2 - 1.3 MG/DL) CALC ALYSSA L AST (15 - 37 Unit/L) 18 ALT (12 - 78 Unit/L) 21 Total Alk Phosphatase (45 - 117 Unit/L) 95 Total Protein (6.4 - 8.2 G/DL) 9.0 H Albumin (3.4 - 5.0 G/DL) 2.4 L Albumin/Globulin Ratio (1.2 - 2.2 RATIO) 0.4 L Specimen Appearance (1 NORMAL Index/DL) 1 NORMAL <2 MG Specimen Hemolysis (1 NORMAL Index/DL) 1 NORMAL <10 MG 11/14 1601 Chemistry POC Glucose (70 - 119 MG/DL) 287 H Laboratory Tests 11/15 1232 Coagulation PT (9.4 - 12.5 SECONDS) 12.8 H INR (0.88 - 1.13 INR Unit) 1.14 H PTT (Nag) (24 - 37.7 SECONDS) 28.6 Laboratory Tests 11/15 0425 Hematology WBC (4.1 - 12.1 K/mm3) 17.7 H RBC (3.8 - 5.5 M/mm3) 3.73 L Hgb (10.6 - 15.8 G/DL) 10.4 L Hct (31.8 - 47.4 %) 31.8 MCV (80.1 - 101.1 fL) 85.3 MCH (25.3 - 35.3 pg) 27.9 MCHC (32.7 - 35.1 G/DL) 32.7 RDW (12.2 - 16.4 %) 14.1 Plt Count (155 - 337 K/mm3) 479 H MPV (7.6 - 10.4 fL) 9.4 Gran % (37.8 - 82.6 %) 80.4 Lymph % (Auto) (14.1 - 45.4 %) 13.6 L Williams % (Auto) (2.5 - 11.7 %) 4.3 Eos % (Auto) (0.0 - 6.2 %) 0.8 Baso % (Auto) (0.0 - 2.6 %) 0.4 Gran # (2.0 - 13.7 k/mm3) 14.23 H Lymph # (Auto) (0.6 - 3.8 K/mm3) 2.41 Williams # (Auto) (0.11 - 0.59 K/mm3) 0.76 H Eos # (Auto) (0.0 - 0.4 K/mm3) 0.15 Baso # (Auto) (0.0 - 0.1 K/mm3) 0.07 Immature Gran % (0.0 - 2.0 %) 0.5 Nucleated RBC % (0.0 - 1.0 /100WBC%) 0.0 Nucleated RBCs # (0.00 - 0.05 K/mm3) 0.00 Laboratory Tests 11/15 1219 Urines Urine Color (YELLOW DESCRIPT) COLORLESS Urine Appearance (CLEAR DESCRIPT) CLEAR Urine pH (4.6 - 8.0 pH UNITS) 6.5 Ur Specific [place] (1.001 - 1.035 SG) 1.012 Urine Protein ((NEG) <30 mg/dL) NEGATIVE (0) Urine Glucose (UA) (0 (NORMAL) mg/dL) 30 (TRACE) H Urine Ketones ((NEG) 0 mg/dL) NEGATIVE (0) Urine Blood (0 (NEG) mg/dL) NEGATIVE (0.00) Urine Nitrite (NEG SCREEN) NEGATIVE (0) Urine Bilirubin ((NEG) 0 mg/dL) NEGATIVE (0.0) Urine Urobilinogen ((NORM)<2.0 mg/Dl) NORMAL (0) Ur Leukocyte Esterase ((NEG) 0 Leuk/mcL) NEGATIVE (0) Urine RBC (0 - 3 #RBC/HPF) 0-3 Urine WBC (0 - 3 #WBC/HPF) 0-3 Urine Mucus (NONE /LPF) RARE Urine Culture Screen (Cult byWBC Criteria) Crit NOTmet CULT-N/A Urine Comment (SpecComment NoteSPEC) SPECIMEN COMMENT Radiology data:Recent Impressions:RADIOLOGY - XR ABDOMEN 1 V 11/14 2306 Report Impression - Status: SIGNED Entered: 11/14/2022 2335 IMPRESSION:1. Moderate to marked gaseous distention of the stomach. The patientmay benefit from nasogastric tube decompression.2. Moderate retained stool within the colon. No evidence ofsmall/large bowel obstruction.3. Findings suggest prior cholecystectomy.Impression By: [email or web address] - Moises Bennett M.D.RADIOLOGY - XR CHEST 1 V 11/15 1414 Report Impression - Status: SIGNED Entered: 11/15/2022 1448 IMPRESSION:1. 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 Patient was admitted to this hospital on 10/04/2022 for stroke like symptoms. Hewas found to have Right MCA infarct due to Right ICA thombus. Patient was then taken by Dr. Kern on 10/08/22 for Right CEA. He was then discharged to rehab on 10/14 and stayed thru 10/25. CT imaging from [place] demonstrated a rim-enhancing abscess versus phlegmon abutting the right carotid sheath. Admited to ICU for closer monitoring. CVSx has been notified by ED physician. Patient seen and examined as of 11/15/2022.Patient had episodes of vomiting in the morning one of the vomitus had blood in it.Start the patient on Protonix.Patient is not known to have acute liver disease no alcoholism no cirrhosis.The vomitus after that did not have any blood I do not think there is a Alicia-Lepe tear.Start the patient on Protonix twice daily.Carafate.Keep the patient n.p.o. ice chips.Abdominal examination is benign abdominal sounds were normal abdomen was softer than yesterday. Labs imaging reviewed personally. Plan discussed with the patient and the RN along with the charge nurse. Time spent 37 minutes Patient seen and examined as of 11/14/2022.Patient continues to complain of abdominal pain post appendectomy.He is already on Dilaudid 1 mg every 4 hours along with the every 6 hours of 10/09/2024 of [facility].He wants more pain medications I have concerns about developing ileus and other complications with IV opiate dosing.I have asked him that I will use multimodality pain approach and start the patient on the gabapentin at a higher dose than before and use a double strengthof Tylenol. I also looked at the wound of the left below-knee amputation site.Patient was stating that it developing an ulcer which is bleeding.On my clinical examination the patient's wound is actually healing with good granulation tissue which is not oozing and is actually getting better.I replaced is a dressing by myself self. Patient will be continued on cefepime and vancomycin.Once ID gives us the recommendations on the cultures from the neck area comes out to be negative we will follow-up with the recommendations. Plan discussed and agreed with the patient. He denies to have any fever chills and rigors on the abdominal examination there is more of a guarding I do not believe that he is got much of tenderness at that site where laparoscopic holes were made in theabdomen. There are well-healing. He is drinking enough water regular diet.I will stop IV fluids. Reviewed the labs CBC CMP I will order them tomorrow again. Time spent 35 minutes Patient seen and examined as of 11/13/2022.Patient underwent laparoscopic appendectomy as of 11/13/2022.Patient will be transferred back to the ICU. Will continue to take care of the patient postoperatively in ICU.Empiric antibiotic therapy.Patient is already on antibiotic therapy because of the wound.We will add gram negatives and anaerobic coverage.Patient otherwise remains stable.Acute pain management. Wound right carotid endarterectomy site.ID on the case.Patient started on cefepime and IV vancomycin. Hypertension. Continue with current home medications and optimize blood pressures are slightly dorsal I will use IV labetalol 10 mg IV every 4 hours as needed to keep systolic blood pressure less than 160 Diabetes mellitus. Insulin sliding scale. Will consider glargine 10 units at night and optimized to keep blood glucose level less than 150 Coronary artery disease. Remains a stable no EKG changes telemetry reviewed personally. Continue antiplatelet therapy History of poor compliance previously. Patient has been documented to have poorcompliance which she could have resulted in infection. PVD. Continue home medicationsStatus post right MCA, CVA on 09/26/2022. Continue current home medicationsAll pertinant labs, Imaging, EKG, telemetry data,and medical records are reviewed by me personally. I have discussed the available findings, initial diagnosis and related differentials with the patient/day care center director including RN. All concerns and questions are answered to the best of my abilities based on theavailable data.I have initiated the plan of care based on preliminary diagnosis,requested appopriate consultations with labs/imagings. Patient/day care center director verbalizes understanding of the plan of care. Critical care time spent on the patient is 45-minute at 1601 RPT #:[id number] OF REPORTPRProgress [id number]:56:00B.[id number] Available for patient vsbwMHYCZLNTFGYQVN1720-76-47T87:02:[address] [facility] 2022-11-15 12:24:00 [id number]+HuYK4+l0ms rW4W 8YfrkUOVK3mmXlnQ47/HyIv2OvDJ79PL6933-94-63U7 2:24:026293-[address] [place], [place] [address] PATIENT NAME: BRIGHT SALAZAR ADMIT DATE: 11/11/22ACCOUNT NO: [id number] ROOM NO: B313 AGE: 57 REPORT TYPE: PROGRESS NOTE SEX: M ADMITTING PHYSICIAN:Ezra Austin MD ATTENDING PHYSICIAN:Jimmy Mark MD DATE: 11/15/2022 INFECTIOUS DISEASE PROGRESS NOTE TIME: 1222 hours. SUBJECTIVE: The patient is doing okay with no new issues. I dscussed with the patient that his white count has increased. Thus, I am going to do cultures once again with blood cultures and a urinalysis and a chest x-ray. All of his questions were answered in regards to this issue. OBJECTIVE:VITAL SIGNS: Noted.GENERAL: He is lying quietly in bed, nontoxic.HEART: Regular rate. S1, S2.LUNGS: Fairly clear.ABDOMEN: Soft and quiet.EXTREMITIES: Examination of right neck region reveals the dressing, which wasremoved by me that shows packing still in place. There is no purulent drainageor foul odor. LABORATORY DATA: The patient's blood cultures from November 10 and again from [facility] are all pending and negative to date. Culture of his right neck woundstatus post right CEA had many white cells, no organisms were seen and theculture was negative. His white count today is 17,700, yesterday was 12,500, soquite a bit higher. Today, his hemoglobin is 10.4, platelet count is 479,000.His metabolic profile shows a BUN of 15, creatinine 0.73, protein 9, albumin2.4, AST of 18, ALT 20, alkaline phosphatase of 95. first assistant manager's notes are in the computer and noted. His antimicrobial therapies are IV cefepime and vancomycin. ASSESSMENT:1. A 57-year-old male.2. Multiple hospitalizations over the past several months, thus at risk forhealthcare-associated infection and/or drug-resistant organisms.3. Chronic debilitated state.4. Status post left below-knee amputation.5. Status post appendectomy, postoperative day #2.6. Wound dehiscence of the right CEA site, unfortunately culture wasnondiagnostic. PATIENT NAME: BRIGHT SALAZAR 7. Hypertension.8. Diabetes mellitus.9. Coronary artery disease. RECOMMENDATIONS: At the present time, the patient is stable. At this time, Priyank concerned about his elevated white count, so I will do blood cultures, a urinalysis, a urine culture and a chest x-ray. In addition, I will change his IV cefepime instead to meropenem for broader gram-negative and anaerobic coverage. I will follow up on all the cultures and make further recommendations. He is not cleared for disposition at this time. Dictated By: Jacquie De La Garza MD Date Dictated: 11/15/2022 12:24:54Date Transcribed: 11/15/2022 14:01:02KEON/Brenda #: [id number] ID: [id number] and Edited by Jacquie De La Garza MD On 11/15/22 3:20:26 PM at 0323 PATIENT NAME: BRIGHT SALAZAR [id number]:01:00B.[id number] vailable for patient ghbuRPWVHXSBPJCSFS0971-94-01C85:23:[address] [facility] 2022-11-15 11:26:00 [id number] jn7o K76nocCXuaHWGo+berv0CUUS9VmaEv6n0480-64-09E0 1:26:00 [facility] ProgREPORT#:[id number] REPORT STATUS: SignedDATE:11/15/22 TIME: 1126 PATIENT: BRIGHT SALAZAR UNIT #: [id number]#: [id number] [facility] AGE: 57 SEX: M ATTEND: Jimmy Mark [facility] AUTHOR: Aurora Chao APRN * ALL edits or amendments must be made on the electronic/computer document * SubjectiveChief complaint:Drainage from right neck incision Review of SystemsConstitutional:Denies: chills, fatigue, fever. Skin:Denies: diaphoresis, swelling. Respiratory:Denies: AZEVEDO (dyspnea on exertion), hemoptysis, non productive cough, productive cough (sputum), SOB. Cardiovascular:Denies: chest pain, AZEVEDO (dyspnea on exertion), edema. GI:Reports: vomiting. Denies: nausea. Musculoskeletal:Reports: neck pain. Neuro:Denies: change in LOC, confusion, dizziness, headache, numbness, seizure, slurred speech, spinning sensation, weakness. All systems rev neg: except as marked Objective GeneralVS/I OLast Documented: Result Date Time Pulse Ox 96 11/15 724 B/P 160/80 11/15 724 B/P Mean 106.7 11/15 724 O2 Delivery Room air 11/15 724 Temp 97.9 11/15 724 Pulse 86 11/15 724 Resp 18 11/15 724 O2 Flow Rate 0 11/14 1353 FiO2 21 11/14 719 24 hour I O ending at 0700: 11/15 0700 11/14 1900 Intake Total 1170.00 915.00 Output Total 1950 600 Balance -780.00 315.00 Intake, IV 1170.00 375.00 Intake, Oral 540 Number 1 Bowel Movements Output, 100 Emesis Output, Urine 1850 600 PATIENT WEIGHT: Weight (lb): Weight (oz): Weight (kg): 77.273 Dietitian Nutrition assessmentThe data set between the solid lines has been imported from the dietitian's assessment. BMI Calculated: 23.1Nutrition related diagnosis: Nutrition diagnosis details: Nutrition problem: Increased nutrient needsNutrition etiology: hypermetabolic demands of , infected surgical wound Nutrition signs and symptoms: abscess to neck s/p CVS , opening wound at bedside Nutrition prescription: ADAT to Cardiac/Diabetic Diet Brandin BIDDietitian name: MS Iraj,RD,LD,CNSCAssessment completed: 11/11/22 Physical ExamGeneral appearance: alert, awake, oriented, no acute distress, pleasant, conversational, mental status normal, no respiratory distressWound/incision: Location:right neck Site condition: drainageHEENT: mucosal membranes moistNeck: full range of motionCardiovascular: BP/pulses equal bilat., regular rate rhythmRespiratory: aerating well, no distressAbdomen: no guardingExtremities: dry, moves allNeuro/RN MATERNITY: alert, oriented X 3, normal speech Diagnosis, Assessment PlanFree Text A P:57 y/o pt here for right neck wound, 1 month s/p CEAPt is hemodynamically stable, pt states he was vomitting blood last night, primary followingToday when I saw him he denied any nausea, pt is NPO pending further workup for thisPt states he had pain near abdominal area/CT scan was donePt found to have appendicitis/ general surgery consultedPt underwent lap Appy, recovering wellThe neck wound is less tender at the lower part of the incision on the right side has a small sinus opening which is draining serous fluid. The wound is opened and packed the neck with iodoform.Wound cultures pending infectious disease consulted and followingPatient needs daily dressing changes, I personally changed it this morningDiscussed with Dr. Kern will continue to follow at 1129 RPT #:[id number] OF REPORTPRProgress [id number]:26:00B.[id number] Available for patient tfwcXZRXBDLRYBNYCS0791-83-74M10:30:[address] [facility] 2022-11-14 15:16:00 [id number]/blrq3fnW4R a1PO Akf+S/ZyEdAdPiYRkEgFBhXuIIlBsFnH7450-18-66X9 5:16:00 [facility] CenterHospital[facility] Progress NoteREPORT#:[id number] REPORT STATUS: SignedDATE:11/14/22 TIME: 1516 PATIENT: BRIGHT SALAZAR UNIT #: [id number]#: [id number] [facility] [birth year] AGE: 57 SEX: M ATTEND: Jimmy Mark AUTHOR: Jimmy Mark MD * ALL edits or amendments must be made on the electronic/computer document * SubjectiveChief complaint:R neck drainageHPI:This is a 57-year-old male with history of multivessel CAD with prior CABG and PCI, DM 2, hyperlipidemia, hypertension, PAD, CVA and right carotid stenosis status post right CEA 10-29, tobacco dependence and continues to smoke, presentedin the ED because of purulent drainage from right carotid endarterectomy site. Per patient, he was doing fine, and today he noticed that a copious amount of greenish discharge spilled out of his surgical wound right side of his neck. Hedenied fever chills, or increased pain in the neck. No shortness of breath, chest pain or palpitation. Patient did note that there was some redness around the surgical site. Patient was evaluated at [facility] and was subsequently transferred here because of a ring-enhancing abscess abutting the right carotid sheath. Work-up at [facility] revealed a white count of 13.3,H H of 13.2 and 38.7 platelet of 453. BMP unremarkable except glucose of 174 BUN of 27 albumin 2.5. Lactic acid was within normal limits. EKG showed sinus rhythm with rate of 100 no acute ischemic changes. CT of the neck showeda rim-enhancing abscess versus phlegmon abutting the right carotid sheathpatient received a dose of Zosyn, cultures were done. Patient also complained of nonhealing wound BKA stump and increased pain. Paient was admitted here for right MCA CVA, status post right CEA 10-29, discharged to rehab 5 8 and discharged from rehab 10/25/2022. Objective GeneralVS/I O:Vital Signs: Date Time Temp Pulse Resp B/P B/P Pulse O2 O2 Flow FiO2 Mean Ox Delivery Rate 11/14 1403 98.4 87 14 120/65 83.5 95 Room air 06/08 1353 96 Room air 0 /08 0939 97.3 81 16 143/70 94.5 96 Room air 06/08 0349 97.7 80 17 137/86 102.7 96 06/08 0025 98.2 82 17 128/74 92.3 93 06/07 2100 82 16 137/64 92 96 06/07 2000 98.6 06/07 1999 81 19 151/71 102 97 06/07 1944 83 24 145/69 99 98 06/07 1904 98 Room air 06/07 1802 82 17 98 06/07 1600 97.4 24 hour I O ending at 0700: 0608 0700 06/07 1900 Intake Total 1210.00 700.00 Output Total 1200 1525 Balance 10.00 -825.00 Intake, IV 270.00 700.00 Intake, Oral 940 Output, Urine 1200 1525 PATIENT WEIGHT: Weight (lb): Weight (oz): Weight (kg): 77.273 Medications:Active Meds + DC'd Last 24 HrsInsulin Human NPH (HumuLIN N) 15 UNIT BID MEALS SUBQ Hydromorphone HCl (DILAUDID) 1 MG Q4H PRN PRN IV Ezetimibe (ZETIA) 10 MG BEDTIME PO Vancomycin HCl (Vancomycin HCl) 1.25 GM Q12H IV Sodium Chloride (NORMAL SALINE 250 ML) 250 MLCefepime HCl (MAXIPIME) 2 GM Q8HR IV Sterile Water (STERILE WATER) 20 MLAspirin (ASPIRIN) 81 MG DAILY PO Docusate Sodium (COLACE 100 MG CAP) 100 MG DAILY PO Metoprolol Succinate (TOPROL XL) 50 MG DAILY PO Quetiapine Fumarate (SEROqueL) 50 MG BID PO Gabapentin (NEURONTIN) 400 MG TID PO Miscellaneous Information (VANCOMYCIN PHARMACY TO DOSE) 1 EACH ASDIR IV (CKD) Cyclobenzaprine HCl (FLEXERIL) 5 MG TID PRN PRN PO Labetalol HCl (TRANDATE MDV) 10 MG Q4H PRN PRN IV Magnesium Oxide (MAG-OX 400) 400 MG ASDIR PRN PO Magnesium Oxide (MAG-OX 400) 800 MG ASDIR PRN PO Nitroglycerin (NITROSTAT) 0.4 MG Q5M PRN PRN SL Potassium Chloride (K-DUR) 20 MEQ ASDIR PRN PO Potassium Chloride (K-DUR) 40 MEQ ASDIR PRN PO Potassium Chloride (K-DUR) 40 MEQ ASDIR PRN PO Senna/Docusate Sodium (SENOKOT-S) 1 UDTAB BID PRN PRN PO Acetaminophen (TYLENOL EXTRA STRENGTH) 500 MG Q6H PRN PRN PO Dextrose/Water (DEXTROSE 50%-WATER) 25 ML ASDIR PRN IV (CKD) Glucagon (GLUCAGON) 1 MG ASDIR PRN IM Glucose Polymer (GLUTOSE) 15 GM ASDIR PRN PO Hydrocodone Bitart/Acetaminophen (NORCO 5/325 TABLET) 1 TAB Q6H PRN PRN PO Insulin Human Lispro (HUMALOG) See Admin Criteria ASDIR PRN SUBQ Lactated Ringer's (LACTATED RINGERS) 1,000 ML .D24T72A IV Mupirocin (BACTROBAN) 1 APPLIC BID NASAL Diagnosis, Assessment PlanHospital course to date:This is a 57-year-old male with PMH significant for T2DM poorly controlled, hypertriglyceridemia, hypertension, coronary artery disease status post CABG andPCI since 2009, PAD, chronic neuropathy, 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 Patient was admitted to this hospital on 10/04/2022 for stroke like symptoms. Hewas found to have Right MCA infarct due to Right ICA thombus. Patient was then taken by Dr. Kern on 10/08/22 for Right CEA. He was then discharged to rehab on 10/14 and stayed thru 10/25. CT imaging from [facility] demonstrated a rim-enhancing abscess versus phlegmon abutting the right carotid sheath. Admited to ICU for closer monitoring. CVSx has been notified by ED physician. Patient seen and examined as of 11/14/2022.Patient continues to complain of abdominal pain post appendectomy.He is already on Dilaudid 1 mg every 4 hours along with the every 6 hours of 10/09/2024 of [facility].He wants more pain medications I have concerns about developing ileus and other complications with IV opiate dosing.I have asked him that I will use multimodality pain approach and start the patient on the gabapentin at a higher dose than before and use a double strengthof Tylenol. I also looked at the wound of the left below-knee amputation site.Patient was stating that it developing an ulcer which is bleeding.On my clinical examination the patient's wound is actually healing with good granulation tissue which is not oozing and is actually getting better.I replaced is a dressing by myself self. Patient will be continued on cefepime and vancomycin.Once ID gives us the recommendations on the cultures from the neck area comes out to be negative we will follow-up with the recommendations. Plan discussed and agreed with the patient. He denies to have any fever chills and rigors on the abdominal examination there is more of a guarding I do not believe that he is got much of tenderness at that site where laparoscopic holes were made in theabdomen. There are well-healing. He is drinking enough water regular diet.I will stop IV fluids. Reviewed the labs CBC CMP I will order them tomorrow again. Time spent 35 minutes Patient seen and examined as of 11/13/2022.Patient underwent laparoscopic appendectomy as of 11/13/2022.Patient will be transferred back to the ICU. Will continue to take care of the patient postoperatively in ICU.Empiric antibiotic therapy.Patient is already on antibiotic therapy because of the wound.We will add gram negatives and anaerobic coverage.Patient otherwise remains stable.Acute pain management. Wound right carotid endarterectomy site.ID on the case.Patient started on cefepime and IV vancomycin. Hypertension. Continue with current home medications and optimize blood pressures are slightly dorsal I will use IV labetalol 10 mg IV every 4 hours as needed to keep systolic blood pressure less than 160 Diabetes mellitus. Insulin sliding scale. Will consider glargine 10 units at night and optimized to keep blood glucose level less than 150 Coronary artery disease. Remains a stable no EKG changes telemetry reviewed personally. Continue antiplatelet therapy History of poor compliance previously. Patient has been documented to have poorcompliance which she could have resulted in infection. PVD. Continue home medicationsStatus post right MCA, CVA on 09/26/2022. Continue current home medicationsAll pertinant labs, Imaging, EKG, telemetry data,and medical records are reviewed by me personally. I have discussed the available findings, initial diagnosis and related differentials with the patient/day care center director including RN. All concerns and questions are answered to the best of my abilities based on theavailable data.I have initiated the plan of care based on preliminary diagnosis,requested appopriate consultations with labs/imagings. Patient/day care center director verbalizes understanding of the plan of care. Critical care time spent on the patient is 45-minute at 1520 [facility] #:[id number] OF REPORTPRProgress [id number]:16:00B.[id number] Available for patient itnnOQPDTPVDHPEFWH9616-81-67M33:21:06 [facility] 11:56:00 [id number] gTRm [id number] 1:56:113430-[address] [place], [place] [address] PATIENT NAME: BRIGHT SALAZAR ADMIT DATE: 11/11/22ACCOUNT NO: [id number] ROOM NO: [facility] AGE: 57 REPORT TYPE: PROGRESS NOTE SEX: M ADMITTING PHYSICIAN:Ezra Austin MD ATTENDING PHYSICIAN:Jimmy Mark MD DATE: 11/14/2022 INFECTIOUS DISEASE PROGRESS NOTE TIME: 1153 hours. SUBJECTIVE: The patient is doing okay with no complaints except he wants toknow about his left BKA site. We are monitoring him, and in fact, his woundcare nurse had just seen him. I told him that his main medical issue at this time is the right CEA surgical site infection. In addition, he had his appendix removed yesterday. Case discussed with Dr. Ayers in regards to his appendectomy that was performed yesterday. OBJECTIVE:VITAL SIGNS: Noted.GENERAL: He is afebrile. He is lying quietly in bed. He is getting ready toeat some breakfast.HEART: Regular rate and rhythm. S1 and S2 present.LUNGS: Have poor breath sounds. ABDOMEN: Quiet.EXTREMITIES: His right CA site is dressed and his left BKA site is dressed. LABORATORY DATA: The patient's pathology of his appendix shows chronicinflammation and fibrinous obliteration of the appendix tip. The operativereport is read and noted. His white count today is 12,500 and his hemoglobin is 11.1, platelet count is446,000. His chemistry profile today shows a BUN of 14, creatinine 0.80.Protein 8.7, albumin 2.2, AST of 18, ALT 20, and alkaline phosphatase of 97. His antimicrobial therapies are IV cefepime and vancomycin. Culture of hisright CEA site of the neck has no growth and the anaerobic culture is stillpending. ASSESSMENT:1. A 57-year-old male.2. Debilitated state.3. Status post left below-knee amputation.4. Status post appendectomy yesterday, postoperative day #1.5. Wound dehiscence of the right CEA site, culture unfortunately was negative.6. Hypertension. PATIENT NAME: BRIGHT SALAZAR 7. Diabetes mellitus.8. Coronary artery disease. RECOMMENDATIONS: At the present time, the patient is stable. At this point, Iwill continue his antimicrobial therapies with cefepime and vancomycin. If thesurgical site of the right neck does not grow any organisms, I will adjust hisantimicrobial therapies and set end dates. Dictated By: Jacquie De La Garza MD Date Dictated: 11/14/2022 11:56:06Date Transcribed: 11/14/2022 12:57:54CC/SYD/Vick #: [id number] ID: [id number] and Edited by Jacquie De La Garza MD On 11/14/22 2:32:48 PM at 0237 PATIENT NAME: BRIGHT SALAZAR [id number]:57:00B.[id number] vailable for patient [id number]:38:[address] [facility] 2022-11-14 10:04:00 [id number] Jcj7 [id number]nV8169-14-87U0 0:04:00 [facility] ([facility])Cardiothoracic Surgery ProgREPORT#:[id number] REPORT STATUS: SignedDATE:11/14/22 TIME: 1004 PATIENT: BRIGHT SALAZAR UNIT #: [id number]#: [id number] ROOM/BED: [facility]-WDOB: [birth year] AGE: 57 SEX: M ATTEND: Jimmy Mrak [facility] AUTHOR: Aurora Chao APRN * ALL edits or amendments must be made on the electronic/computer document * SubjectiveChief complaint:Drainage from right neck incision Review of SystemsConstitutional:Denies: chills, fatigue, fever. Skin:Denies: diaphoresis, swelling. Respiratory:Denies: AZEVEDO (dyspnea on exertion), hemoptysis, non productive cough, productive cough (sputum), SOB. Cardiovascular:Denies: chest pain, AZEVEDO (dyspnea on exertion), edema. GI:Denies: nausea, vomiting. Musculoskeletal:Reports: neck pain. Neuro:Denies: change in LOC, confusion, dizziness, headache, numbness, seizure, slurred speech, spinning sensation, weakness. All systems rev neg: except as marked Objective GeneralVS/I OLast Documented: Result Date Time Pulse Ox 96 11/14 938 B/P 143/70 11/14 938 B/P Mean 94.5 11/14 938 O2 Delivery Room air 11/14 938 Temp 97.3 11/14 938 Pulse 81 11/14 938 Resp 16 11/14 938 FiO2 21 11/14 719 24 hour I O ending at 0700: 11/14 0700 11/13 1900 Intake Total 1210.00 700.00 Output Total 1200 1525 Balance 10.00 -825.00 Intake, IV 270.00 700.00 Intake, Oral 940 Output, Urine 1200 1525 PATIENT WEIGHT: Weight (lb): Weight (oz): Weight (kg): 77.273 Dietitian Nutrition assessmentThe data set between the solid lines has been imported from the dietitian's assessment. BMI Calculated: 23.1Nutrition related diagnosis: Nutrition diagnosis details: Nutrition problem: Increased nutrient needsNutrition etiology: hypermetabolic demands of , infected surgical wound Nutrition signs and symptoms: abscess to neck s/p CVS , opening wound at bedside Nutrition prescription: ADAT to Cardiac/Diabetic Diet Brandin BIDDietitian name: MS Iraj,RD,LD,CNSCAssessment completed: 11/11/22 Physical ExamGeneral appearance: alert, awake, oriented, no acute distress, pleasant, conversational, mental status normal, no respiratory distressWound/incision: Location:right neck Site condition: drainageHEENT: mucosal membranes moistNeck: full range of motionCardiovascular: BP/pulses equal bilat., regular rate rhythmRespiratory: aerating well, no distressAbdomen: no guardingExtremities: dry, moves allNeuro/RN MATERNITY: alert, oriented X 3, normal speech Diagnosis, Assessment PlanFree Text A P:57 y/o pt here for right neck wound, 1 month s/p CEAPt is hemodynamically stable doing wellPt states he had pain yesterday near abdominal area/CT scan was donePt found to have appendicitis/ general surgery consultedPt underwent lap Appy, recovering wellThe neck wound is less tender at the lower part of the incision on the right side has a small sinus opening which is draining serous fluid. The wound is opened and packed the neck with iodoform.Wound cultures pending infectious disease consulted and followingPatient needs daily dressing changes, I personally changed it this morningDiscussed with Dr. Kern will continue to follow at 1006 RPT #:[id number] OF REPORTPRProgress [id number]:04:00B.[id number] Available for patient puheEXDBGPLEXWJQDU6385-50-09G55:06:[address] [facility] 2022-11-13 14:18:00 [id number]/MJzZ6 [facility] LtV8EyLVnVV8XVVYKeP7xjE9OIjte5vE3419-18-85Q1 4:18:00 [facility] ([facility])Hospitalist Progress NoteREPORT#:[id number] REPORT STATUS: SignedDATE:11/13/22 TIME: 1418 PATIENT: SPRATLEY,BRIGHT UNIT #: [id number]#: [id number] [address] AGE: 57 SEX: M ATTEND: Jimmy Mark MDADM AUTHOR: Jimmy Mark MD * ALL edits or amendments must be made on the electronic/computer document * SubjectiveChief complaint:R neck drainageHPI:This is a 57-year-old male with history of multivessel CAD with prior CABG and PCI, DM 2, hyperlipidemia, hypertension, PAD, CVA and right carotid stenosis status post right CEA 10-29, tobacco dependence and continues to smoke, presentedin the ED because of purulent drainage from right carotid endarterectomy site. Per patient, he was doing fine, and today he noticed that a copious amount of greenish discharge spilled out of his surgical wound right side of his neck. Hedenied fever chills, or increased pain in the neck. No shortness of breath, chest pain or palpitation. Patient did note that there was some redness around the surgical site. Patient was evaluated at [facility] and was subsequently transferred here because of a ring-enhancing abscess abutting the right carotid sheath. Work-up at [facility] revealed a white count of 13.3,H H of 13.2 and 38.7 platelet of 453. BMP unremarkable except glucose of 174 BUN of 27 albumin 2.5. Lactic acid was within normal limits. EKG showed sinus rhythm with rate of 100 no acute ischemic changes. CT of the neck showeda rim-enhancing abscess versus phlegmon abutting the right carotid sheathpatient received a dose of Zosyn, cultures were done. Patient also complained of nonhealing wound BKA stump and increased pain. Paient was admitted here for right MCA CVA, status post right CEA 10-29, discharged to rehab 5 8 and discharged from rehab 10/25/2022. Objective GeneralVS/I O:Vital Signs: Date Time Temp Pulse Resp B/P B/P Pulse O2 O2 Flow FiO2 Mean Ox Delivery Rate 11/13 1306 72 6 97 11/13 1241 73 11 114/63 84 100 11/13 1240 97.8 11/13 1018 75 12 158/77 107 97 11/13 0900 75 11 164/78 114 97 11/13 0800 98.2 11/13 0800 76 12 145/70 100 95 /07 0720 96 Room air 21 11/13 0700 77 13 132/67 93 93 / 0400 97.6 06/ 0400 81 172/81 116 95 06/ 0000 81 155/74 107 91 06/06 2221 95 Room air 11/12 2000 97.8 11/12 1800 83 25 153/74 105 94 / 1700 82 20 120/73 92 94 06/06 1635 82 19 95 06 1600 98.2 11/12 1600 85 160/77 111 97 06/06 1500 83 25 141/71 100 97 24 hour I O ending at 0700: 11/13 0711/12 1900 Intake Total 1660.00 1150.00 Output Total 600 1250 Balance 1060.00 -100.00 Intake, IV 1400.00 1150.00 Intake, Oral 260 Number 1 Bowel Movements Output, Urine 600 1250 PATIENT WEIGHT: Weight (lb): Weight (oz): Weight (kg): 77.273 ResultsFindings/Data:Laboratory Tests 11/13 11/13 11/13 11/12 1238 0921 0533 1705Chemistry Sodium (133 - 144 mmol/L) 136.0 Potassium (3.5 - 5.1 mmol/L) 3.7 Chloride (95 - 105 mmol/L) 104 Carbon Dioxide (21 - 32 mmol/L) 30 Anion Gap (4.0 - 15.0 GAP calc) 2.0 L BUN (7 - 18 MG/DL) 11 Creatinine (0.55 - 1.30 MG/DL) 0.60 Glomerular Filtr Rate (>60 estGFR) 113 Glucose (70 - 110 MG/DL) 169 H POC Glucose (70 - 119 MG/DL) 152 H 137 H 199 H Calcium (8.5 - 10.1 MG/DL) 8.1 L Specimen Appearance (1 NORMAL Index/DL) 1 NORMAL <2 MG Specimen Hemolysis (1 NORMAL Index/DL) 1 NORMAL <10 MG Laboratory Tests 11/13 0533 Hematology WBC (4.1 - 12.1 K/mm3) 7.0 RBC (3.8 - 5.5 M/mm3) 4.02 Hgb (10.6 - 15.8 G/DL) 11.3 Hct (31.8 - 47.4 %) 33.7 MCV (80.1 - 101.1 fL) 83.8 MCH (25.3 - 35.3 pg) 28.1 MCHC (32.7 - 35.1 G/DL) 33.5 RDW (12.2 - 16.4 %) 13.9 Plt Count (155 - 337 K/mm3) 381 H MPV (7.6 - 10.4 fL) 9.0 Gran % (37.8 - 82.6 %) 57.6 Lymph % (Auto) (14.1 - 45.4 %) 26.6 Williams % (Auto) (2.5 - 11.7 %) 9.0 Eos % (Auto) (0.0 - 6.2 %) 5.1 Baso % (Auto) (0.0 - 2.6 %) 1.0 Gran # (2.0 - 13.7 k/mm3) 4.03 Lymph # (Auto) (0.6 - 3.8 K/mm3) 1.86 Williams # (Auto) (0.11 - 0.59 K/mm3) 0.63 H Eos # (Auto) (0.0 - 0.4 K/mm3) 0.36 Baso # (Auto) (0.0 - 0.1 K/mm3) 0.07 Immature Gran % (0.0 - 2.0 %) 0.7 Nucleated RBC % (0.0 - 1.0 /100WBC%) 0.0 Nucleated RBCs # (0.00 - 0.05 K/mm3) 0.00 Laboratory Tests 11/12 1511 Toxicology Vancomycin Trough (10 - 20 mcG/ML) 12.1 Radiology data:Recent Impressions:RADIOLOGY - XR CHEST 1 V 11/120 Report Impression - Status: SIGNED Entered: 11/12/2022 215 IMPRESSION: Central catheter not seen despite indication. Scatteredatelectasis/scarring with otherwise clear lungs. No visible pleuralfluid or pneumothorax. Normal cardiac silhouette poststernotomy.Impression By: Yong - Oneil Mancia, [facility] [place] PELVIS W/O CONT 11/12 2255 Report Impression - Status: SIGNED Entered: 11/12/2022 2316 IMPRESSION:1. The appendix is retrocecal and measures up to 7.5 mm in diameter. Although no periappendiceal fat stranding is identified, the appendixpreviously measured 4.8 mm in diameter on 10/08/2022. This may reflectearly acute appendicitis. No abscess or perforation is seen.2. Additional findings include a small left pleural effusion, partialcompressive atelectasis of the left lower lobe, coronary arterycalcifications, prior cholecystectomy, nonobstructive bilateral renalcalculi, mild prostatomegaly, and moderate retained stool within thecolon. One or more of the following dose reduction techniques were used:Automated exposure control, adjustment of the mA and/or kV accordingto patient size, and/or utilization of iterative reconstructiontechnique.DLP: 673 mGy-cm CTDI: 11 mGy Impression By: Nelson Bennett M.D. 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 Patient was admitted to this hospital on 10/04/2022 for stroke like symptoms. Hewas found to have Right MCA infarct due to Right ICA thombus. Patient was then taken by Dr. Kern on 10/08/22 for Right CEA. He was then discharged to rehab on 10/14 and stayed thru 10/25. CT imaging from [place] demonstrated a rim-enhancing abscess versus phlegmon abutting the right carotid sheath. Admited to ICU for closer monitoring. CVSx has been notified by ED physician. Patient seen and examined as of 11/13/2022.Patient underwent laparoscopic appendectomy as of 11/13/2022.Patient will be transferred back to the ICU. Will continue to take care of the patient postoperatively in ICU.Empiric antibiotic therapy.Patient is already on antibiotic therapy because of the wound.We will add gram negatives and anaerobic coverage.Patient otherwise remains stable.Acute pain management. Wound right carotid endarterectomy site.ID on the case.Patient started on cefepime and IV vancomycin. Hypertension. Continue with current home medications and optimize blood pressures are slightly dorsal I will use IV labetalol 10 mg IV every 4 hours as needed to keep systolic blood pressure less than 160 Diabetes mellitus. Insulin sliding scale. Will consider glargine 10 units at night and optimized to keep blood glucose level less than 150 Coronary artery disease. Remains a stable no EKG changes telemetry reviewed personally. Continue antiplatelet therapy History of poor compliance previously. Patient has been documented to have poorcompliance which she could have resulted in infection. PVD. Continue home medicationsStatus post right MCA, CVA on 09/26/2022. Continue current home medicationsAll pertinant labs, Imaging, EKG, telemetry data,and medical records are reviewed by me personally. I have discussed the available findings, initial diagnosis and related differentials with the patient/day care center director including RN. All concerns and questions are answered to the best of my abilities based on theavailable data.I have initiated the plan of care based on preliminary diagnosis,requested appopriate consultations with labs/imagings. Patient/day care center director verbalizes understanding of the plan of care. Critical care time spent on the patient is 45-minute at 1420 RPT #:[id number] OF REPORTPRProgress [id number]:18:[id number] Available for patient [id number]:20:[address] [facility] 2022-11-13 14:14:00 [id number] hExi [id number]/1LqiRyEeR8PRI/uDBgWQq1uTx2535-03-38V8 4:14:00 [facility] ([facility])Orthopaedic Progress NoteREPORT#:[id number] REPORT STATUS: SignedDATE:11/13/22 TIME: 1414 PATIENT: BRIGHT SALAZAR UNIT #: [id number]#: [id number] [facility] AGE: 57 SEX: M ATTEND: Jimmy Mark [facility] AUTHOR: Dhiraj Herman MD * ALL edits or amendments must be made on the electronic/computer document * SubjectiveChief complaint:left BKA spot drainage. ObjectiveVS:Last Documented: Result Date Time Pulse Ox 97 11/13 1306 Pulse 72 11/13 1306 Resp 6 11/13 1306 B/P 114/63 11/13 1241 B/P Mean 84 11/13 1241 Temp 97.8 11/13 1240 FiO2 21 11/13 0720 O2 Delivery Room air 11/13 0720 PATIENT WEIGHT: Weight (lb): Weight (oz): Weight (kg): 77.273 Medications:Active Meds + DC'd Last 24 HrsInsulin Human NPH (HumuLIN N) 15 UNIT BID MEALS SUBQ Fentanyl Citrate (SUBLIMAZE) 0 .STK-MED ONE .ROUTE (DC) Midazolam HCl (VERSED) 0 .STK-MED ONE .ROUTE (DC) Propofol (DIPRIVAN) 20 ML .STK-MED ONE IV (DC) Bupivacaine HCl/Epinephrine Bitart (SENSORCAINE-EPI 0.5%) 0 .STK-MED ONE .ROUTE (DC) Acetaminophen (TYLENOL) 650 MG PACU ONCE PO (DC) Albuterol Sulfate (PROVENTIL NEB) 2.5 MG PACU ONCE PRN PRN NEB (DC) Dexamethasone Sodium Phosphate (DECADRON 4MG/ML) 4 MG PACU ONCE IV (DC) Fentanyl Citrate (SUBLIMAZE) 25 MCG PACU Q5MIN PRN PRN IV (DC) Hydralazine HCl (APRESOLINE) 10 MG PACU Q15MIN PRN PRN IV (DC) Hydrocodone Bitart/Acetaminophen (NORCO 5/325 TABLET) 1 TAB AT DISCHG PO (DC) Hydromorphone HCl (DILAUDID) 0.25 MG PACU Q5MIN PRN PRN IV (DC) Ketorolac Tromethamine (TORADOL) 15 MG PACU ONCE IV (DC) Labetalol HCl (TRANDATE MDV) 5 MG PACU Q5MIN PRN PRN IV (DC) Lactated Ringer's (LACTATED RINGERS) 1,000 ML PACU IV (DC) Meperidine HCl (DEMEROL) 12.5 MG PACU ASDIR PRN PRN IV (DC) Metoprolol Tartrate (LOPRESSOR) 2 MG PACU Q5MIN PRN PRN IV (DC) Morphine Sulfate (morphine PF SYRINGE) 2 MG PACU Q5MIN PRN PRN IV (DC) Naloxone HCl (NARCAN) 0.1 MG PACU ONCE PRN PRN IV (DC) Ondansetron HCl (ZOFRAN) 4 MG PACU ONCE PRN PRN IV (DC) Fentanyl Citrate (SUBLIMAZE) 25 MCG ONCE ONE IV (DC) Midazolam HCl (VERSED) 2 MG ONCE ONE IV (DC) Sodium Chloride (SODIUM CHLORIDE 0.9% 500 ML) 500 ML BOLUS ONCE ONE IV (DC) Hydromorphone HCl (DILAUDID) 1 MG Q4H PRN PRN IV Enoxaparin Sodium (LOVENOX) 40 MG Q24H SUBQ (DC) Ezetimibe (ZETIA) 10 MG BEDTIME PO Insulin Human NPH (HumuLIN N) 35 UNIT BID MEALS SUBQ (DC) Vancomycin HCl (Vancomycin HCl) 1.25 GM Q12H IV Sodium Chloride (NORMAL SALINE 250 ML) 250 MLCefepime HCl (MAXIPIME) 2 GM Q8HR IV Sterile Water (STERILE WATER) 20 MLAspirin (ASPIRIN) 81 MG DAILY PO Docusate Sodium (COLACE 100 MG CAP) 100 MG DAILY PO Metoprolol Succinate (TOPROL XL) 50 MG DAILY PO Quetiapine Fumarate (SEROqueL) 50 MG BID PO Gabapentin (NEURONTIN) 400 MG TID PO Miscellaneous Information (VANCOMYCIN PHARMACY TO DOSE) 1 EACH ASDIR IV (CKD) Cyclobenzaprine HCl (FLEXERIL) 5 MG TID PRN PRN PO Labetalol HCl (TRANDATE MDV) 10 MG Q4H PRN PRN IV Magnesium Oxide (MAG-OX 400) 400 MG ASDIR PRN PO Magnesium Oxide (MAG-OX 400) 800 MG ASDIR PRN PO Nitroglycerin (NITROSTAT) 0.4 MG Q5M PRN PRN SL Potassium Chloride (K-DUR) 20 MEQ ASDIR PRN PO Potassium Chloride (K-DUR) 40 MEQ ASDIR PRN PO Potassium Chloride (K-DUR) 40 MEQ ASDIR PRN PO Senna/Docusate Sodium (SENOKOT-S) 1 UDTAB BID PRN PRN PO Acetaminophen (TYLENOL EXTRA STRENGTH) 500 MG Q6H PRN PRN PO Dextrose/Water (DEXTROSE 50%-WATER) 25 ML ASDIR PRN IV (CKD) Glucagon (GLUCAGON) 1 MG ASDIR PRN IM Glucose Polymer (GLUTOSE) 15 GM ASDIR PRN PO Hydrocodone Bitart/Acetaminophen (NORCO 5/325 TABLET) 1 TAB Q6H PRN PRN PO Insulin Human Lispro (HUMALOG) See Admin Criteria ASDIR PRN SUBQ Lactated Ringer's (LACTATED RINGERS) 1,000 ML .[id number] IV Mupirocin (BACTROBAN) 1 APPLIC BID NASAL I O:24 hour I O ending at 0700: 0607 0700 06 1900 Intake Total 1660.00 1150.00 Output Total 600 1250 Balance 1060.00 -100.00 Intake, IV 1400.00 1150.00 Intake, Oral 260 Number 1 Bowel Movements Output, Urine 600 1250 Physical ExamGeneral appearance: alert, awake, orientedMusculoskeletal: Left BKA stump with 2 small areas of spot serosanguenous drainage motor grossly intact sensory intact Diagnosis, Assessment PlanFree text A P:A/P Left BKA stump with two small areas of spot drainage POC - patient is on intravenous antibiotics for management of his infected CEA wound. This may clear up the stump as well. I instructed him to followup with my once he has been discharged from the hospital. We may need to perform a local I D of his stump if it doesnt clear up with his antibiotics. [facility] told him that he needed to be converted to an AKA. We will do whatever possible to avoid that for him. Call with any concerns at 1420 RPT #:[id number] OF REPORTPRProgress [id number]:14:[id number] Available for patient [id number]:21:[address] [facility] 2022-11-13 13:30:00 [id number]//Dv if thVcdeOd2VWSL+[id number] 3:30:00 [facility] ([facility])Critical Care Progress NoteREPORT#:[id number] REPORT STATUS: SignedDATE:11/13/22 TIME: 1330 PATIENT: BRIGHT SALAZAR UNIT #: [id number]#: [id number] [facility]ID[facility] 65 AGE: 57 SEX: M ATTEND: Jimmy Mark MDADM AUTHOR: Sy Hester MD * ALL edits or amendments must be made on the electronic/computer document * SubjectiveHPI:This is a 57-year-old male with PMH significant for T2DM poorly controlled, hypertriglyceridemia, hypertension, coronary artery disease status post CABG andPCI since 2009, PAD, chronic neuropathy, 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 Patient was admitted to this hospital on 10/04/2022 for stroke like symptoms. Hewas found to have Right MCA infarct due to Right ICA thombus. Patient was then taken by Dr. Kern on 10/08/22 for Right CEA. He was then discharged to rehab on 10/14 and stayed thru 10/25. CT imaging from [place] demonstrated a rim-enhancing abscess versus phlegmon abutting the right carotid sheath. Admited to ICU for closer monitoring. CVSx has been notified by ED physician. Review of SystemsUnable to obtain due to:sedated state Objective GeneralVS/I OLaboratory Tests: 11/13 11/13 11/13 11/12 1238 0921 0533 1705Chemistry Sodium (133 - 144 mmol/L) 136.0 Potassium (3.5 - 5.1 mmol/L) 3.7 Chloride (95 - 105 mmol/L) 104 Carbon Dioxide (21 - 32 mmol/L) 30 Anion Gap (4.0 - 15.0 GAP calc) 2.0 L BUN (7 - 18 MG/DL) 11 Creatinine (0.55 - 1.30 MG/DL) 0.60 Glomerular Filtr Rate (>60 estGFR) 113 Glucose (70 - 110 MG/DL) 169 H POC Glucose (70 - 119 MG/DL) 152 H 137 H 199 H Calcium (8.5 - 10.1 MG/DL) 8.1 L Specimen Appearance (1 NORMAL 1 NORMAL <2 MGIndex/DL) Specimen Hemolysis (1 NORMAL 1 NORMAL <10 MGIndex/DL)Hematology WBC (4.1 - 12.1 K/mm3) 7.0 RBC (3.8 - 5.5 M/mm3) 4.02 Hgb (10.6 - 15.8 G/DL) 11.3 Hct (31.8 - 47.4 %) 33.7 MCV (80.1 - 101.1 fL) 83.8 MCH (25.3 - 35.3 pg) 28.1 MCHC (32.7 - 35.1 G/DL) 33.5 RDW (12.2 - 16.4 %) 13.9 Plt Count (155 - 337 K/mm3) 381 H MPV (7.6 - 10.4 fL) 9.0 Gran % (37.8 - 82.6 %) 57.6 Lymph % (Auto) (14.1 - 45.4 %) 26.6 Williams % (Auto) (2.5 - 11.7 %) 9.0 Eos % (Auto) (0.0 - 6.2 %) 5.1 Baso % (Auto) (0.0 - 2.6 %) 1.0 Gran # (2.0 - 13.7 k/mm3) 4.03 Lymph # (Auto) (0.6 - 3.8 K/mm3) 1.86 Williams # (Auto) (0.11 - 0.59 K/mm3) 0.63 H Eos # (Auto) (0.0 - 0.4 K/mm3) 0.36 Baso # (Auto) (0.0 - 0.1 K/mm3) 0.07 Immature Gran % (0.0 - 2.0 %) 0.7 Nucleated RBC % (0.0 - 1.0 /100WBC%) 0.0 Nucleated RBCs # (0.00 - 0.05 K/mm3) 0.00 11/12 1511 Toxicology Vancomycin Trough (10 - 20 mcG/ML) 12.1 Recent Impressions:RADIOLOGY - XR CHEST 1 V 11/120 Report Impression - Status: SIGNED Entered: 11/12/2022 2156 IMPRESSION: Central catheter not seen despite indication. Scatteredatelectasis/scarring with otherwise clear lungs. No visible pleuralfluid or pneumothorax. Normal cardiac silhouette poststernotomy.Impression By: Jay Jay1 - Oneil Mancia, [facility] [place] PELVIS W/O CONT 11/12 2255 Report Impression - Status: SIGNED Entered: 11/12/2022 2316 IMPRESSION:1. The appendix is retrocecal and measures up to 7.5 mm in diameter. Although no periappendiceal fat stranding is identified, the appendixpreviously measured 4.8 mm in diameter on 10/08/2022. This may reflectearly acute appendicitis. No abscess or perforation is seen.2. Additional findings include a small left pleural effusion, partialcompressive atelectasis of the left lower lobe, coronary arterycalcifications, prior cholecystectomy, nonobstructive bilateral renalcalculi, mild prostatomegaly, and moderate retained stool within thecolon. One or more of the following dose reduction techniques were used:Automated exposure control, adjustment of the mA and/or kV accordingto patient size, and/or utilization of iterative reconstructiontechnique.DLP: 673 mGy-cm CTDI: 11 mGy Impression By: Nelson - Moises Bennett M.D. Current Medications Sig/Ekta Start time LastMedication Dose Route Stop Time Status AdminInsulin Human NPH 15 UNIT BID MEALS 11/13 1700 UNV SUBQ 12/13 1701Fentanyl Citrate 0 .STK-MED ONE 11/13 1111 DC .ROUTEMidazolam HCl 0 .STK-MED ONE 11/13 1111 DC .ROUTEPropofol 20 ML .STK-MED ONE 11/13 1111 DC IVBupivacaine HCl/ 0 .STK-MED ONE 11/13 1108 DCEpinephrine Bitart .ROUTEAcetaminophen 650 MG PACU ONCE 11/13 1100 DC PO 11/13 1547Albuterol Sulfate 2.5 MG PACU ONCE PRN PRN 11/13 1100 DC NEB 11/13 1547Dexamethasone Sodium 4 MG PACU ONCE 11/13 1100 DCPhosphate IV 11/13 1447Fentanyl Citrate 25 MCG PACU Q5MIN PRN PRN 11/13 1100 DC IV 06 1547Hydralazine HCl 10 MG PACU Q15MIN PRN PRN 11/13 1100 DC IV 11/13 1547Hydrocodone Bitart/ 1 TAB AT DISCHG 11/13 1100 DCAcetaminophen PO 11/13 1547Hydromorphone HCl 0.25 MG PACU Q5MIN PRN PRN 11/13 1100 DC IV 11/13 1547Ketorolac 15 MG PACU ONCE 11/13 1100 DCTromethamine IV 11/13 1547Labetalol HCl 5 MG PACU Q5MIN PRN PRN 11/13 1100 DC IV 11/13 1547Lactated Ringer's 1,000 ML PACU 11/13 1100 DC IV 11/13 1547Meperidine HCl 12.5 MG PACU ASDIR PRN PRN 11/13 1100 DC IV / 1547Metoprolol Tartrate 2 MG PACU Q5MIN PRN PRN 11/13 1100 DC IV 11/13 1547Morphine Sulfate 2 MG PACU Q5MIN PRN PRN 11/13 1100 DC IV 11/13 1547Naloxone HCl 0.1 MG PACU ONCE PRN PRN 11/13 1100 DC IV 11/13 1447Ondansetron HCl 4 MG PACU ONCE PRN PRN 11/13 1100 DC IV 11/13 1547Fentanyl Citrate 25 MCG ONCE ONE 11/13 0245 DC 11/13 IV 11/13 0246 0254Midazolam HCl 2 MG ONCE ONE 11/12 2215 DC 11/12 IV 11/12 2216 2147Sodium Chloride 500 ML BOLUS ONCE ONE 11/12 2130 DC 11/12 IV 12/03 1729 2146Hydromorphone HCl 1 MG Q4H PRN PRN 11/12 1915 AC 11/13 IV 12/12 1916 0611Enoxaparin Sodium 40 MG Q24H 11/12 1215 DCr 11/13 SUBQ 12/12 1216 1303Ezetimibe 10 MG BEDTIME 11/11 2100 AC 11/12 PO 12/11 2101 2053Insulin Human NPH 35 UNIT BID MEALS 11/11 1700 DCr 11/12 SUBQ 12/11 0801 1715Vancomycin HCl 1.25 GM Q12H 11/11 1600 AC 11/13Sodium Chloride 250 ML IV 11/18 2100 0520Cefepime HCl 2 GM Q8HR 11/11 1400 AC 11/13Sterile Water 20 ML IV 11/25 1401 1307Aspirin 81 MG DAILY 11/11 09 AC 11/12 PO 12/11 0901 0830Docusate Sodium 100 MG DAILY 11/11 09 AC 11/12 PO 12/11 09 0830Metoprolol Succinate 50 MG DAILY 11/11 899 AC 11/13 PO 12/11 0901 0913Quetiapine Fumarate 50 MG BID 11/11 899 AC 11/13 PO 12/11 0901 0913Gabapentin 400 MG TID 11/11 599 AC 11/13 PO 12/11 06 1308Miscellaneous 1 EACH ASDIR 11/11 0400 CKDInformation IV 11/18 0359Cyclobenzaprine HCl 5 MG TID PRN PRN 11/11 0345 AC 11/13 PO 12/11 0346 0141Labetalol HCl 10 MG Q4H PRN PRN 11/11 0345 AC IV 12/11 0346Magnesium Oxide 400 MG ASDIR PRN 11/11 0345 AC 11/13 PO 12/11 0346 0913Magnesium Oxide 800 MG ASDIR PRN 11/11 0345 AC PO 12/11 0346Nitroglycerin 0.4 MG Q5M PRN PRN 11/11 0345 AC SL 12/11 0346Potassium Chloride 20 MEQ ASDIR PRN 11/11 0345 AC PO 12/11 0346Potassium Chloride 40 MEQ ASDIR PRN 11/11 0345 AC PO 12/11 0346Potassium Chloride 40 MEQ ASDIR PRN 11/11 0345 AC PO 12/11 0346Senna/Docusate Sodium 1 UDTAB BID PRN PRN 11/11 0345 AC PO 12/11 0346Acetaminophen 500 MG Q6H PRN PRN 11/11 0230 AC 11/13 PO 12/11 0231 0141Dextrose/Water 25 ML ASDIR PRN 11/11 0230 CKD IV 12/11 0231Glucagon 1 MG ASDIR PRN 11/11 0230 AC IM 12/11 0231Glucose Polymer 15 GM ASDIR PRN 11/11 0230 AC PO 12/11 023Hydrocodone Bitart/ 1 TAB Q6H PRN PRN 11/11 0230 AC 11/13Acetaminophen PO 12/11 230 0917Insulin Human Lispro See Dose ASDIR PRN 11/11 0230 AC 11/12 Insts (1) SUBQ 12/11 023 1311Lactated Ringer's 1,000 ML .[id number] 11/11 023 AC 11/13 IV 12/11 023 0800Mupirocin 1 APPLIC BID 11/11 023 AC 11/13 NASAL 11/15 0901 0912 Dose Instructions:(1)Insulin Human Lispro: See Admin Criteria 24 hours ending at 0700 11/13 0700 11/12 2300 11/12 1500 Intake Total 1660.00 1150.00 Output Total 600 1250 Balance 1060.00 -100.00 Intake, IV 1400.00 1150.00 Intake, Oral 260 Number 1 Bowel Movements Output, Urine 600 1250 24 Hour I O Total 11/13 0700 Intake Total 2810.00 Output Total 1850 Balance 960.00 Last Documented: Result Date Time Pulse Ox 97 11/13 1306 Pulse 72 11/13 1306 Resp 6 11/13 1306 B/P 114/63 11/13 1241 B/P Mean 84 11/13 1241 Temp 97.8 11/13 1240 FiO2 21 11/13 0720 O2 Delivery Room air 11/13 0620 24 hour I O ending at 0700: 11/13 0700 11/12 1900 Intake Total 1660.00 1150.00 Output Total 600 1250 Balance 1060.00 -100.00 Intake, IV 1400.00 1150.00 Intake, Oral 260 Number 1 Bowel Movements Output, Urine 600 1250 PATIENT WEIGHT: Weight (lb): Weight (oz): Weight (kg): 77.273 Physical ExamGeneral appearance: sedatedHead/eyes: atraumatic, clear cornea, EOMI, normocephalic, PERRLENT: poor dentition, moist mucosal membranesNeck: full range of motion, no masses or swelling, right cea wound with purulentdrainage/erythemaCardiovascular: normal capillary refill, normal heart sounds, no ectopyRespiratory: aerating well, clear to auscultation, symmetric expansion, no distress, room airAbdomen: soft, non-tender, Laparotomy incisions C/D/IExtremities: moves all, no clubbing, l bkaMusculoskeletal normal inspection, l bkaNeuro/RN MATERNITY: oriented X 3, normal speech, poor historian/recent strokeSkin: dry, intact, normal color, normal temperature, no rashWound/incision: Location:right anterior neck Diagnosis, Assessment PlanFree text A P:Assessment/Plan: Concern for Surgical wound infection Recent Right CEA on 10/08/22, now with purulent drainage from site-CT with rim enhancing abscess vs phlegmon abutting the right carotid sheath-11/11/22 Wound Cx: rare growth normal skin carrol(Previous 10/15/22 Wound Cx: MRSA and Enterococcus faecalis)-ID following: Cefepim and Vancomycin -IV abx: Cefepime and vancomycin-Continue daily ASA, hold on restarting plavix until discussed with CVSx Acute Appendicitis s/p Laparoscopic Appendectomy (11/13/22) Normal renal functionCorrected hypokalemiaStrict I/Os; replete electrolytes as needed DMT2-BG monitoring-NPH (decreased to 15 units) + ISS Hypertension-PRNs available-Resume home metoprolol HLD-Home medication resumed Chronic pain-PRNs available-Home gabapentin Diet: NPO, until cleared by Surgery VTE: SCD to right leg, hold off use of chemical ppx anticoagulation until cleared by SurgryGIP: not indicated Code: FullDispo: Downgraded to IMU Total critical care time >35 minutes. Total critical care time documented does not include time spent on separately billed procedures or the services of residents, students, nurses or physician assistants. I personally saw and examined the patient. I have reviewed all diagnostic interpretations and treatment plans as written. I was present for the wyatt portions of any proceduresperformed and the inclusive time noted in any critical care statement. Critical care time includes patient management by me, time spent at the patients bedside,time to review lab and imaging results, discussing patient care, documentation in the medical record, and time spent with the family or caregiver. at 1339 RPT #:[id number] OF REPORTPRProgress [id number]:30:[id number] Available for patient [id number]:39:[address] [facility] 2022-11-13 12:32:00 [id number]/ 1Sxw 5KzfwDRS+[id number]/[id number] 2:32:548130-[address] [place] [address] PATIENT NAME: BRIGHT SALAZAR ADMIT DATE: 11/11/22ACCOUNT NO: [id number] ROOM NO: [facility] AGE: 57 REPORT TYPE: REPORT OF OPERATION SEX: M ADMITTING PHYSICIAN:Ezra Austin MD ATTENDING PHYSICIAN:Jimmy Mark MD OPERATION DATE: 11/13/2022 PREOPERATIVE DIAGNOSIS: Appendicitis. POSTOPERATIVE DIAGNOSIS: Appendicitis. PROCEDURE: Laparoscopic appendectomy. SURGEON: Ciro Ayers DO ANESTHESIA: General. FLUIDS: Crystalloid. ESTIMATED BLOOD LOSS: Minimal. COMPLICATIONS: None apparent. CONDITION: Stable. HISTORY: Mr. Castro is a 57-year-old male who is in our ICU, began to have right lower quadrant abdominal pain yesterday. He had a CAT scan and I was called early this morning and consulted by the intensive care team for possible appendicitis. He had a thickened appendix. This morning, I came to the bedsideand saw him, and he was having pretty significant right sided abdominal pain right where the appendix was, so we discussed observation versus appendectomy and we both chose appendectomy. We discussed the procedure in detail. Risks, complications, typical recovery was reviewed. Consents obtained. OPERATIVE FINDINGS: He had a retrocecal appendix that was thickened. There was no significant phlegmon or perforation or abscess. Did a routine laparoscopic appendectomy. DESCRIPTION OF PROCEDURE: He was taken to the operating suite, was laid in supine position, given general anesthesia and was prepped and draped with ChloraPrep. A small midline incision was made just above the umbilicus through a previous scar and a 5 mm bladeless Optiview trocar complex inserted through layers of abdominal wall under direct vision. The abdomen was insufflated. Quick survey of the anterior viscera reveals no gross intravisceral pathology. He was placed in Trendelenburg, rotated to the left. Left lower quadrant 12 mm bladeless trocar was placed and a right lower quadrant 5 mm bladeless trocar wasplaced. The terminal ileum was adherent to the right lower quadrant pelvic PATIENT NAME: BRIGHT SALAZAR sidewall. This was carefully taken down with the LigaSure device to gain accessto the retrocecal area. Eventually after dissecting and rolling the cecum medially, I was able to identify the base of the appendix, which was encircled bluntly and divided with the laparoscopic [place] 45 stapler with a blue load. I then divided the mesoappendix with the LigaSure device and the appendix was placed into an Endobag and removed through the left lower quadrant trocar site, and inspected the area. There was good hemostasis. Insufflation was released, trocars removed. The left lower quadrant trocar fascia was closed with 0 Vicryl. All skin incisions were then injected with local and closed with 4-0 Monocryl subcuticularly, sterilely cleaned and dried the area, placed Dermabond glue dressing to the incision. He was then awoken and taken to the recovery room in stable condition. Dictated By: Ciro Ayers, Date Dictated: 11/13/2022 12:32:25Date Transcribed: 11/13/2022 15:04:15VELASQUEZ/TIMUR/Haider #: [id number] ID: [id number] by Ciro Ayers MD On 11/20/2022 09:14:19 AM at 0914 PATIENT NAME: BRIGHT SALAZAR rnlnzy6141-25-09A59:04:00B.[id number] VAvailable for patient hvudOJRNWIJTEUHXRO7733-96-04I19:14:[address] [facility] 2022-11-13 12:25:00 [id number]+W/T/co2LCEKG3z5F825 3GB2 xgyWnACdXOtoSP2u/DRXs2IvNlg2+PG/4077-77-36F5 2:25:00 [facility] ([facility])Brief Op NoteREPORT#:[id number] REPORT STATUS: SignedDATE:11/13/22 TIME: 1225 PATIENT: BRIGHT SALAZAR UNIT #: [id number]#: [id number] [facility] AGE: 57 SEX: M ATTEND: Jimmy Mark [facility] AUTHOR: Ciro Ayers MD * ALL edits or amendments must be made on the electronic/computer document * Op/Inv Proc Note - BriefPre-procedure diagnosis:AppendicitisPost-procedure diagnosis: same as pre procedure dxProcedures performed:Laparoscopic appendectomyPrimary Surgeon:Yamiletistant(s): noneFindings:retrocecal, inflammedComplications: noneEstimated blood loss in ml's: minimalSpecimens removed/altered: appendixDictation number:[id number] at 1232 RPT #:[id number] OF REPORTOPOperative ijinvl5166-33-94S43:25:00B.[id number] AVAvailable for patient xlhvAZBTBDMMCBMFLU2383-07-76B90:32:[address] [facility] 2022-11-13 10:30:00 [id number]+PIJU2A+ZU5Z1bE HO Hp36cFiEKseuLrSKUr1QvObA1ALxtvfb8973-07-41M4 0:30:00 [facility] ([facility])Cardiothoracic Surgery ProgREPORT#:[id number] REPORT STATUS: SignedDATE:11/13/22 TIME: 1030 PATIENT: BRIGHT SALAZAR UNIT #: [id number]#: [id number] [facility]-LYOZ: 65 AGE: 57 SEX: M ATTEND: Jimmy Mark [facility] AUTHOR: Aurora Chao APRN * ALL edits or amendments must be made on the electronic/computer document * SubjectiveChief complaint:Drainage from right neck incision Review of SystemsConstitutional:Denies: chills, fatigue, fever. Skin:Reports: swelling. Denies: diaphoresis. Respiratory:Denies: AZEVEDO (dyspnea on exertion), hemoptysis, non productive cough, productive cough (sputum), SOB. Cardiovascular:Denies: chest pain, AZEVEDO (dyspnea on exertion), edema. GI:Denies: nausea, vomiting. Musculoskeletal:Reports: neck pain. Neuro:Denies: change in LOC, confusion, dizziness, headache, numbness, seizure, slurred speech, spinning sensation, weakness. All systems rev neg: except as marked Objective GeneralVS/I OLast Documented: Result Date Time Temp 98.2 11/13 0800 Pulse Ox 96 11/13 0720 FiO2 21 11/13 0720 O2 Delivery Room air 11/13 0720 B/P 172/81 / 0400 B/P Mean 116 / 0400 Pulse 81 / 0400 Resp 25 11/12 1800 24 hour I O ending at 0700: /07 0700 /06 1900 Intake Total 1660.00 1150.00 Output Total 600 1250 Balance 1060.00 -100.00 Intake, IV 1400.00 1150.00 Intake, Oral 260 Number 1 Bowel Movements Output, Urine 600 1250 PATIENT WEIGHT: Weight (lb): Weight (oz): Weight (kg): 77.273 Dietitian Nutrition assessmentThe data set between the solid lines has been imported from the dietitian's assessment. BMI Calculated: 23.1Nutrition related diagnosis: Nutrition diagnosis details: Nutrition problem: Increased nutrient needsNutrition etiology: hypermetabolic demands of , infected surgical wound Nutrition signs and symptoms: abscess to neck s/p CVS , opening wound at bedside Nutrition prescription: ADAT to Cardiac/Diabetic Diet Brandin BIDDietitian name: Iraj,MS,RD,LD,CNSCAssessment completed: 11/11/22 Physical ExamGeneral appearance: alert, awake, oriented, no acute distress, mental status normal, no respiratory distressWound/incision: Location:right neck Site condition: drainageHEENT: mucosal membranes moistNeck: full range of motionCardiovascular: BP/pulses equal bilat., regular rate rhythmRespiratory: aerating well, no distressAbdomen: no guardingExtremities: dry, moves allNeuro/RN MATERNITY: alert, oriented X 3, normal speech Diagnosis, Assessment PlanFree Text A P:57 y/o pt here for right neck wound, 1 month s/p CEAPt is hemodynamically stable doing wellPt states he had pain yesterday near abdominal area/CT scan was donePt found to have appendicitis/ general surgery consultedPt scheduled for lap AppyThe neck wound is less tender at the lower part of the incision on the right side has a small sinus opening which is draining serous fluid. The wound is opened and packed the neck with iodoform.Wound cultures pending infectious disease consulted and followingPatient needs daily dressing changes, I personally changed it this morningDiscussed with Dr. Kern will continue to follow at 1035 RPT #:[id number] OF REPORTPRProgress yhwa7102-04-00Y00:30:00B.[id number] Available for patient geoeRFTGUQYBFZUGLS6936-41-72N87:35:[address] [facility] 2022-11-13 08:25:00 [id number]+Gq4Cw X1mN 0YCWpYr8NqpCpTCXRHG7xbdF5dOyPZmW1670-02-88A6 8:25:006238-[address] [place], [place] [address] PATIENT NAME: BRIGHT SALAZAR ADMIT DATE: 11/11/22ACCOUNT NO: [id number] ROOM NO: B.ICU22 AGE: 57 REPORT TYPE: PROGRESS NOTE SEX: M ADMITTING PHYSICIAN:Ezra Austin MD ATTENDING PHYSICIAN:Jimmy Mark MD DATE: 11/13/2022 INFECTIOUS DISEASE PROGRESS NOTE TIME: 0823 hours. Case discussed with the ICU nurse and also Dr. Ayers. SUBJECTIVE: The patient is complaining of right flank pain. He has no othernew issues. OBJECTIVE:VITAL SIGNS: Noted.GENERAL: He is lying quietly in bed, nontoxic. Looks mildly in pain. Hisright neck is dressed. Dressings not removed.HEART: Regular rate. S1, S2.LUNGS: Have poor breath sounds.ABDOMEN: Soft and quiet. LABORATORY STUDIES: The patient's culture of the neck from 11/11/2022 remainsnegative to date. His white count today is 7000, it continues to decline.Hemoglobin is 11.3; platelet count 381,000. His metabolic profile today shows aBUN of 11, creatinine 0.60. CT of abdomen and pelvis without contrast yesterday 11/12/2022 shows appendix isretrocecal and measures up to 7.5 mm in diameter, though no periappendiceal fatstranding is identified. The appendix previously measured 4.8 mm in diameter on10/08/2022 and thus this could reflect early acute appendicitis. There is noabscess or perforation seen. He has small left pleural effusion and partialcompressive atelectasis of left lower lobe, coronary artery disease,calcification as well as prior cholecystectomy, nonobstructive bilateral renalcalculi with mild prostatomegaly and moderate retained stool within the colon. His antimicrobial therapies are IV vancomycin per pharmacy protocol as well asIV cefepime. ASSESSMENT:1. A 57-year-old male.2. Possible appendicitis, to be evaluated by Dr. Ayers.3. Status post right carotid endarterectomy on 10/08/2022, now with wounddehiscence and culture is still pending.4. Poor compliance previously. PATIENT NAME: BRIGHT SALAZAR 5. Hypertension.6. Diabetes mellitus.7. Coronary artery disease. RECOMMENDATIONS: At the present time, the patient is stable. At this point, I will continue both the cefepime and the IV vancomycin and await the final culture report of the right CEA surgical site. Dictated By: Jacquie De La Garza MD Date Dictated: 11/13/2022 08:25:51Date Transcribed: 11/13/2022 08:58:31CC/GUSJob #: [id number] ID: [id number] and Edited by Jacquie De La Garza MD On 11/13/22 9:02:56 AM at 0905 PATIENT NAME: BRIGHT SALAZAR kayc7250-40-19U10:58:00B.[id number] vailable for patient wijiJOXJQQIZMJOCQW8973-90-33C85:06:[address] [facility] 2022-11-13 07:47:00 [id number]b cjJu u8d3OudR4GM3SGruPc2g97NgJ8mmfINq9185-11-87Y2 7:47:00 [facility])General Surgery Consult NoteREPORT#:[id number] REPORT STATUS: SignedDATE:11/13/22 TIME: 0747 PATIENT: BRIGHT SALAZAR UNIT #: [id number]#: [id number] [facility]-BPJK: 65 AGE: 57 SEX: M ATTEND: Jimmy Mark [facility] AUTHOR: Ciro Ayers MD * ALL edits or amendments must be made on the electronic/computer document * History of Present IllnessHPI:57-year-old male status post right CEA, he then had a infection has been treatedin the ICU, he states yesterday began to have right lower quadrant abdominal pain he had a CAT scan overnight that shows a thickened appendix with some traceinflammation I was consulted. This morning he has right lower quadrant pain pinpoint in the same area as his appendix, no nausea or vomiting. Denies any previous history of right lower quadrant abdominal pain. History - Adult longitudinalPast medical history:Reports: Coronary artery disease, Diabetes mellitus, Hypertension, Dyslipidemia. Additional medical history:DM 2 CAD, multivessel LVEF 50-55% Hypertension Hyperlipidemia Poor medical follow through and complaince. PVD Diabetic Neuropathy Lt BKA infection req'ing multiple rounds of antibiotics andhospitalizations. Falls Atherosclerosis to the thoracic aorta, coronary arteries, abdominal aortaand branching vessels Calcified granulomas RLL Degenerative disc disease L3-L5 and cervical spine Osteophytosis lower thoracic spine Right ICA stenosis 09/26/2022 Right MCA CVA 09/26/22 Indeterminate right parotid lesionsPast surgical history:Reports: CABG (x4), Cholecystectomy. Additional surgical history:R CEA 10/08/22 CABG and PCI 2009 Multiple toe amputations transmetatarsal amputation 2020 Left BKA 2 stage dditional family history:Family history of diabetes, no bleeding or clotting dyscrasiasAlcohol use: Last drink was rug use: Denies recreational drugsSmoking status for patients 13 years old or older: Current every day smoker (0.5PPDx 40 yrs)Date last smoked: 11/11/22Packs per day: 0.5Years smoked: 40Pack years: 20.0Additional social history:Lives alone. Stated his sister left so he is alone. Concerned he has not utilities on at his house.Allergies:Coded Allergies:Hgnvutf-WST-JrC Reductase Inhibitor (Intermediate, JOINT PAIN 10/22/22) JOINT PAIN Review of SystemsAll systems rev neg: except as marked Objective Physical ExamVS/I OLast Documented: Result Date Time Pulse Ox 97 11/13 1306 Pulse 72 11/13 1306 Resp 6 11/13 1306 B/P 114/63 11/13 1241 B/P Mean 84 11/13 1241 Temp 97.8 11/13 1240 FiO2 21 11/13 0720 O2 Delivery Room air 11/14 719 Vital Signs Date Temp Pulse Resp B/P B/P Mean Pulse Ox FiO2 11/12-11/13 97.6-98.2 72-83 6-25 114-172/63-81 84-116 91-100 21 24 hour I O ending at 0700: 11/13 0700 06/06 1900 Intake Total 1660.00 1150.00 Output Total 600 1250 Balance 1060.00 -100.00 Intake, IV 1400.00 1150.00 Intake, Oral 260 Number 1 Bowel Movements Output, Urine 600 1250 PATIENT WEIGHT: Weight (lb): Weight (oz): Weight (kg): 77.273 General appearance: alert, awake, orientedHEENT: atraumaticCardiovascular: normal capillary refillRespiratory: aerating well, no distressAbdomen: guarding, tenderness (RLQ)Extremities: moves all, normal capillary refill, normal temperatureSkin: dry, intact, normal color ResultsFindings/Data:Laboratory Tests: 11/13 11/13 11/13 11/12 1238 0921 0533 1705Chemistry Sodium (133 - 144 mmol/L) 136.0 Potassium (3.5 - 5.1 mmol/L) 3.7 Chloride (95 - 105 mmol/L) 104 Carbon Dioxide (21 - 32 mmol/L) 30 Anion Gap (4.0 - 15.0 GAP calc) 2.0 L BUN (7 - 18 MG/DL) 11 Creatinine (0.55 - 1.30 MG/DL) 0.60 Glomerular Filtr Rate (>60 estGFR) 113 Glucose (70 - 110 MG/DL) 169 H POC Glucose (70 - 119 MG/DL) 152 H 137 H 199 H Calcium (8.5 - 10.1 MG/DL) 8.1 L Specimen Appearance (1 NORMAL 1 NORMAL <2 MGIndex/DL) Specimen Hemolysis (1 NORMAL 1 NORMAL <10 MGIndex/DL)Hematology WBC (4.1 - 12.1 K/mm3) 7.0 RBC (3.8 - 5.5 M/mm3) 4.02 Hgb (10.6 - 15.8 G/DL) 11.3 Hct (31.8 - 47.4 %) 33.7 MCV (80.1 - 101.1 fL) 83.8 MCH (25.3 - 35.3 pg) 28.1 MCHC (32.7 - 35.1 G/DL) 33.5 RDW (12.2 - 16.4 %) 13.9 Plt Count (155 - 337 K/mm3) 381 H MPV (7.6 - 10.4 fL) 9.0 Gran % (37.8 - 82.6 %) 57.6 Lymph % (Auto) (14.1 - 45.4 %) 26.6 Williams % (Auto) (2.5 - 11.7 %) 9.0 Eos % (Auto) (0.0 - 6.2 %) 5.1 Baso % (Auto) (0.0 - 2.6 %) 1.0 Gran # (2.0 - 13.7 k/mm3) 4.03 Lymph # (Auto) (0.6 - 3.8 K/mm3) 1.86 Williams # (Auto) (0.11 - 0.59 K/mm3) 0.63 H Eos # (Auto) (0.0 - 0.4 K/mm3) 0.36 Baso # (Auto) (0.0 - 0.1 K/mm3) 0.07 Immature Gran % (0.0 - 2.0 %) 0.7 Nucleated RBC % (0.0 - 1.0 /100WBC%) 0.0 Nucleated RBCs # (0.00 - 0.05 K/mm3) 0.00 Recent Impressions:RADIOLOGY - XR CHEST 1 V 11/12 2129 Report Impression - Status: SIGNED Entered: 11/12/2022 2156 IMPRESSION: Central catheter not seen despite indication. Scatteredatelectasis/scarring with otherwise clear lungs. No visible pleuralfluid or pneumothorax. Normal cardiac silhouette poststernotomy.Impression By: Yong - Oneil Mancia, [facility] [place] - CT ABD PELVIS W/O CONT 11/12 2255 Report Impression - Status: SIGNED Entered: 11/12/2022 2316 IMPRESSION:1. The appendix is retrocecal and measures up to 7.5 mm in diameter. Although no periappendiceal fat stranding is identified, the appendixpreviously measured 4.8 mm in diameter on 10/08/2022. This may reflectearly acute appendicitis. No abscess or perforation is seen.2. Additional findings include a small left pleural effusion, partialcompressive atelectasis of the left lower lobe, coronary arterycalcifications, prior cholecystectomy, nonobstructive bilateral renalcalculi, mild prostatomegaly, and moderate retained stool within thecolon. One or more of the following dose reduction techniques were used:Automated exposure control, adjustment of the mA and/or kV accordingto patient size, and/or utilization of iterative reconstructiontechnique.DLP: 673 mGy-cm CTDI: 11 mGy Impression By: Nelson Bennett M.D. Diagnosis, Assessment Plan Free Text DxA P NotesFree Text DxA P Notes:appendicitis He has tenderness in the right lower quadrant and a thickened appendix on CT scan, we discussed observation versus appendectomy, he and I both agree the mostcurrent conservative approach would be laparoscopic appendectomy, will proceed later today. Discussed the procedure in detail questions were answered. at 1607 RPT #:[id number] OF REPORTZZHrwmusxltvdp4266-99-25I95:47:00B. [id number] for patient ytfbHAZFCPSIORDWLD7829-83-60R78:07:[address] [facility] 2022-11-12 21:26:00 [id number]1 rolan+ rhl7bDHDi87oxqvvt3YXM8D7DOZ6z7rV4136-38-70K3 1:26:00 [facility] ([facility])Bedside Post Proc - FullREPORT#:[id number] REPORT STATUS: SignedDATE:11/12/22 TIME: 2125 PATIENT: BRIGHT SALAZAR UNIT #: [id number]#: [id number] [address] AGE: 57 SEX: M ATTEND: Jimmy Mark [facility] AUTHOR: Peg Kinsey NP * ALL edits or amendments must be made on the electronic/computer document * See AddendumBedside Procedure Note Bedside Procedure NoteStart date: 11/12/22Start time: 2125Pre-procedure diagnosis:cardiac arrestshock state: cardiogenic VS hypovolemic/hypotensionPost-procedure diagnosis:sameProcedure performed: central line placement Ultrasound utilized: yesPerformed by:Peg Kinsey APRN AGACNP-BCAssistant(s): noneIndications:vasopressorsTime out completed: YesConsent obtained: yesAnesthesia: local - lidocaineInsertion bundle: cap, full body drape, hand hygiene, mask, sterile gloves, sterile gown, chlorhexidine/alcoholTechnique/Procedure:LEF T chest region was prepped using chlorhexidine scrub and draped in sterile fashion. The Internal Jugular vein was identified using the ultrasound. Anesthesia was achieved over the vein using 1% lidocaine. The introducer needlewas inserted into the Internal Jugular vein under direct ultrasound visualization. Venous blood was withdrawn. The syringe was removed and a guidewire was advanced into the introducer needle. The guidewire was visualized in the Internal Jugular Vein by ultrasound. A small incision was made at the skin surface with a scalpel and the introducer needle was exchanged for a dilator over the guidewire. After appropriate dilation was obtained, the dilatorwas exchanged over the wire for a 7fr central venous catheter. The wire was removed and the catheter was sutured in place at 20 cm. A sterile dressing was placed over the catheter at the insertion site. The patient tolerated the procedure without any hemodynamic compromise. At time of procedure completion, all ports aspirated and flushed properly. Post-procedure chest x-ray is pending at this time.Specimens removed/altered: noneImplant(s): noneComplications: noneEstimated blood loss in ml's: noneFindings:NA at 2126 Addendum 1: 11/13/22 0745 by Peg Kinsey NP entered on wrong patient, disreguard at 0745 RPT #:[id number] OF REPORTPNProcedure kndk6779-23-42A80:26:00B.[id number] Available for patient snknOOGGUIDMOHHWMR7049-97-01J41:29:25 [facility] 2022-11-12 14:59:00 [id number]/nVIXsnQ8CL0xyoRqjPEIvPeIj uxS9 jc0Lr3RbCtg1nXOWSHFyZPqoLPTwErSV7675-55-18B9 4:59:00 [facility] ([facility])Hospitalist Progress NoteREPORT#:[id number] REPORT STATUS: SignedDATE:11/12/22 TIME: 1459 PATIENT: BRIGHT SALAZAR UNIT #: [id number]#: [id number] [address]-IFNI: 65 AGE: 57 SEX: M ATTEND: Jimmy Mark AUTHOR: Jimmy Mark MD * ALL edits or amendments must be made on the electronic/computer document * SubjectiveChief complaint:R neck drainageHPI:This is a 57-year-old male with history of multivessel CAD with prior CABG and PCI, DM 2, hyperlipidemia, hypertension, PAD, CVA and right carotid stenosis status post right CEA 10-29, tobacco dependence and continues to smoke, presentedin the ED because of purulent drainage from right carotid endarterectomy site. Per patient, he was doing fine, and today he noticed that a copious amount of greenish discharge spilled out of his surgical wound right side of his neck. Hedenied fever chills, or increased pain in the neck. No shortness of breath, chest pain or palpitation. Patient did note that there was some redness around the surgical site. Patient was evaluated at [facility] and was subsequently transferred here because of a ring-enhancing abscess abutting the right carotid sheath. Work-up at [place] revealed a white count of 13.3,H H of 13.2 and 38.7 platelet of 453. BMP unremarkable except glucose of 174 BUN of 27 albumin 2.5. Lactic acid was within normal limits. EKG showed sinus rhythm with rate of 100 no acute ischemic changes. CT of the neck showeda rim-enhancing abscess versus phlegmon abutting the right carotid sheathpatient received a dose of Zosyn, cultures were done. Patient also complained of nonhealing wound BKA stump and increased pain. Paient was admitted here for right MCA CVA, status post right CEA 10-29, discharged to rehab 5 8 and discharged from rehab 10/25/2022. Objective GeneralVS/I O:Vital Signs: Date Time Temp Pulse Resp B/P B/P Pulse O2 O2 Flow FiO2 Mean Ox Delivery Rate 06/06 1200 98.3 06/06 1100 75 16 120/67 87 96 06/06 1000 78 16 159/72 104 97 06/06 0900 75 15 149/76 107 100 06/06 0800 97.9 06/06 0800 77 14 162/74 107 98 06/06 0700 77 14 158/74 106 100 06/06 0600 80 17 172/80 115 100 06/06 0500 78 12 124/64 86 98 06/06 0400 97.8 06/06 0400 82 18 144/70 100 100 06/06 0300 82 18 156/76 109 99 06/06 0200 83 18 156/70 100 99 06/06 0100 83 3 160/71 102 99 06/06 0000 98.1 06/06 0000 84 14 147/67 96 96 06/05 2300 85 22 130/65 91 96 06/05 2200 85 26 137/62 89 95 06/05 2130 86 27 96 06/05 2100 91 27 138/61 88 95 06/05 2038 96 Room air 06/05 2030 87 20 93 06/05 2000 90 29 117/59 80 96 06/05 1930 92 24 96 06/05 1900 96.9 06/05 1900 86 142/69 96 97 06/05 1801 83 22 151/67 96 99 06/05 1745 80 22 100 06/05 1701 81 168/78 112 97 06/05 1615 78 18 97 06/05 1600 97.7 06/05 1600 75 21 120/59 85 96 06/05 1500 80 19 119/57 82 96 24 hour I O ending at 0700: 06/06 0700 06/05 1900 Intake Total 1470.00 1525.00 Output Total 800 Balance 1470.00 725.00 Intake, IV 1150.00 1125.00 Intake, Oral 320 400 Number 1 Bowel Movements Number Voids 1 4 Output, Urine 800 PATIENT WEIGHT: Weight (lb): Weight (oz): Weight (kg): 77.273 Medications:Active Meds + DC'd Last 24 HrsEnoxaparin Sodium (LOVENOX) 40 MG Q24H SUBQ Hydromorphone HCl (DILAUDID) 0.2 MG ONCE ONE IV (DC) Ezetimibe (ZETIA) 10 MG BEDTIME PO Insulin Human NPH (HumuLIN N) 35 UNIT BID MEALS SUBQ Vancomycin HCl (Vancomycin HCl) 1.25 GM Q12H IV Sodium Chloride (NORMAL SALINE 250 ML) 250 MLCefepime HCl (MAXIPIME) 2 GM Q8HR IV Sterile Water (STERILE WATER) 20 MLAspirin (ASPIRIN) 81 MG DAILY PO Docusate Sodium (COLACE 100 MG CAP) 100 MG DAILY PO Metoprolol Succinate (TOPROL XL) 50 MG DAILY PO Quetiapine Fumarate (SEROqueL) 50 MG BID PO Gabapentin (NEURONTIN) 400 MG TID PO Miscellaneous Information (VANCOMYCIN PHARMACY TO DOSE) 1 EACH ASDIR IV (CKD) Cyclobenzaprine HCl (FLEXERIL) 5 MG TID PRN PRN PO Labetalol HCl (TRANDATE MDV) 10 MG Q4H PRN PRN IV Magnesium Oxide (MAG-OX 400) 400 MG ASDIR PRN PO Magnesium Oxide (MAG-OX 400) 800 MG ASDIR PRN PO Nitroglycerin (NITROSTAT) 0.4 MG Q5M PRN PRN SL Potassium Chloride (K-DUR) 20 MEQ ASDIR PRN PO Potassium Chloride (K-DUR) 40 MEQ ASDIR PRN PO Potassium Chloride (K-DUR) 40 MEQ ASDIR PRN PO Senna/Docusate Sodium (SENOKOT-S) 1 UDTAB BID PRN PRN PO Acetaminophen (TYLENOL EXTRA STRENGTH) 500 MG Q6H PRN PRN PO Dextrose/Water (DEXTROSE 50%-WATER) 25 ML ASDIR PRN IV (CKD) Glucagon (GLUCAGON) 1 MG ASDIR PRN IM Glucose Polymer (GLUTOSE) 15 GM ASDIR PRN PO Hydrocodone Bitart/Acetaminophen (NORCO 5/325 TABLET) 1 TAB Q6H PRN PRN PO Insulin Human Lispro (HUMALOG) See Admin Criteria ASDIR PRN SUBQ Lactated Ringer's (LACTATED RINGERS) 1,000 ML .[id number] IV Mupirocin (BACTROBAN) 1 APPLIC BID NASAL ResultsFindings/Data:Laboratory Tests 11/12 11/12 11/12 11/11 1259 9243 0428 2048Chemistry Sodium (133 - 144 mmol/L) 138.0 Potassium (3.5 - 5.1 mmol/L) 3.6 Chloride (95 - 105 mmol/L) 105 Carbon Dioxide (21 - 32 mmol/L) 27 Anion Gap (4.0 - 15.0 GAP calc) 6.0 BUN (7 - 18 MG/DL) 14 Creatinine (0.55 - 1.30 MG/DL) 0.64 Glomerular Filtr Rate (>60 estGFR) 110 Glucose (70 - 110 MG/DL) 172 H POC Glucose (70 - 119 MG/DL) 224 H 158 H 272 H Calcium (8.5 - 10.1 MG/DL) 8.0 L Specimen Appearance (1 NORMAL Index/DL) 1 NORMAL <2 MG Specimen Hemolysis (1 NORMAL Index/DL) 1 NORMAL <10 MG 11/11 1639 Chemistry POC Glucose (70 - 119 MG/DL) 114 Laboratory Tests 11/12 0427 Hematology WBC (4.1 - 12.1 K/mm3) 8.5 RBC (3.8 - 5.5 M/mm3) 4.09 Hgb (10.6 - 15.8 G/DL) 11.3 Hct (31.8 - 47.4 %) 34.3 MCV (80.1 - 101.1 fL) 83.9 MCH (25.3 - 35.3 pg) 27.6 MCHC (32.7 - 35.1 G/DL) 32.9 RDW (12.2 - 16.4 %) 13.8 Plt Count (155 - 337 K/mm3) 411 H MPV (7.6 - 10.4 fL) 8.9 Gran % (37.8 - 82.6 %) 58.7 Lymph % (Auto) (14.1 - 45.4 %) 25.7 Williams % (Auto) (2.5 - 11.7 %) 9.7 Eos % (Auto) (0.0 - 6.2 %) 3.7 Baso % (Auto) (0.0 - 2.6 %) 1.1 Gran # (2.0 - 13.7 k/mm3) 4.97 Lymph # (Auto) (0.6 - 3.8 K/mm3) 2.17 Williams # (Auto) (0.11 - 0.59 K/mm3) 0.82 H Eos # (Auto) (0.0 - 0.4 K/mm3) 0.31 Baso # (Auto) (0.0 - 0.1 K/mm3) 0.09 Immature Gran % (0.0 - 2.0 %) 1.1 Nucleated RBC % (0.0 - 1.0 /100WBC%) 0.0 Nucleated RBCs # (0.00 - 0.05 K/mm3) 0.00 Diagnosis, Assessment PlanHospital course to date:This is a 57-year-old male with PMH significant for T2DM poorly controlled, hypertriglyceridemia, hypertension, coronary artery disease status post CABG andPCI since 2009, PAD, chronic neuropathy, 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 Patient was admitted to this hospital on 10/04/2022 for stroke like symptoms. Hewas found to have Right MCA infarct due to Right ICA thombus. Patient was then taken by Dr. Kern on 10/08/22 for Right CEA. He was then discharged to rehab on 10/14 and stayed thru 10/25. CT imaging from [place] demonstrated a rim-enhancing abscess versus phlegmon abutting the right carotid sheath. Admited to ICU for closer monitoring. CVSx has been notified by ED physician. Wound right carotid endarterectomy site.ID on the case.Patient started on cefepime and IV vancomycin. Hypertension. Continue with current home medications and optimize blood pressures are slightly dorsal I will use IV labetalol 10 mg IV every 4 hours as needed to keep systolic blood pressure less than 160 Diabetes mellitus. Insulin sliding scale. Will consider glargine 10 units at night and optimized to keep blood glucose level less than 150 Coronary artery disease. Remains a stable no EKG changes telemetry reviewed personally. Continue antiplatelet therapy History of poor compliance previously. Patient has been documented to have poorcompliance which she could have resulted in infection. PVD. Continue home medicationsStatus post right MCA, CVA on 09/26/2022. Continue current home medicationsAll pertinant labs, Imaging, EKG, telemetry data,and medical records are reviewed by me personally. I have discussed the available findings, initial diagnosis and related differentials with the patient/day care center director including RN. All concerns and questions are answered to the best of my abilities based on theavailable data.I have initiated the plan of care based on preliminary diagnosis,requested appopriate consultations with labs/imagings. Patient/day care center director verbalizes understanding of the plan of care. Critical care time spent on the patient is 45-minute at 1505 RPT #:[id number] OF REPORTPRProgress [id number]:59:00B.[id number] Available for patient atctPHDKDYMHCITGDH0172-32-62J48:05:[address] [facility] 2022-11-12 10:57:00 [id number] [facility] nE6/xchnazOA62kQPrNe8W7xaTkgsPHV7287-07-81V3 0:57:00 [facility] ProgREPORT#:[id number] REPORT STATUS: SignedDATE:11/12/22 TIME: 1057 PATIENT: BRIGHT SALAZAR UNIT #: [id number]#: [id number] [address]CF: [address] AGE: 57 SEX: M ATTEND: Yung Loomis [facility] AUTHOR: Aurora Chao APRN * ALL edits or amendments must be made on the electronic/computer document * SubjectiveChief complaint:Drainage from right neck incision Review of SystemsConstitutional:Denies: chills, fatigue, fever. Skin:Reports: swelling. Denies: diaphoresis. Respiratory:Denies: AZEVEDO (dyspnea on exertion), hemoptysis, non productive cough, productive cough (sputum), SOB. Cardiovascular:Denies: chest pain, AZEVEDO (dyspnea on exertion), edema. GI:Denies: nausea, vomiting. Musculoskeletal:Reports: neck pain. Neuro:Denies: change in LOC, confusion, dizziness, headache, numbness, seizure, slurred speech, spinning sensation, weakness. All systems rev neg: except as marked Objective GeneralVS/I OLast Documented: Result Date Time Temp 97.9 11/12 0800 Pulse Ox 100 11/12 06 B/P 172/80 11/12 0600 B/P Mean 115 11/12 0600 Pulse 80 11/12 0600 Resp 17 11/12 599 O2 Delivery Room air 11/11 2037 FiO2 21 11/11 0452 24 hour I O ending at 0700: 11/12 0700 11/11 1900 Intake Total 1470.00 1525.00 Output Total 800 Balance 1470.00 725.00 Intake, IV 1150.00 1125.00 Intake, Oral 320 400 Number 1 Bowel Movements Number Voids 1 4 Output, Urine 800 PATIENT WEIGHT: Weight (lb): Weight (oz): Weight (kg): 77.273 Physical ExamGeneral appearance: alert, awake, oriented, no acute distress, no respiratory distressWound/incision: Location:right neck Site condition: drainageHEENT: mucosal membranes moistNeck: full range of motionCardiovascular: BP/pulses equal bilat., regular rate rhythmRespiratory: aerating well, no distressAbdomen: no guardingExtremities: dry, moves allNeuro/RN MATERNITY: alert, oriented X 3, normal speech ResultsRadiology data:Recent Impressions:CAT SCAN - CT NECK W W/O CONTRAST 11/11 1401 Report Impression - Status: SIGNED Entered: 11/11/2022 1504 IMPRESSION:1. Right carotid endarterectomy with wound infection. The previouslynoted obstruction is no longer identified.2. Postoperative soft tissue swelling and probable wound infection atthe operative site however the exact size of an abscess would bedifficult to determine because of the overlying thickening of thesternomastoid muscle. A fluid collection in the 1-2 cm size range ispossible.3. Follow-up imaging during active swallowing may be of greatersensitivity.4. Endoscopy should also be considered.Impression By: Jasmin - Juventino Horn MD Diagnosis, Assessment PlanFree Text A P:57 y/o pt here for right neck wound, 1 month s/p CEAPt is hemodynamically stable doing wellThe wound is not tender at the lower part of the incision on the right side has a small sinus opening which is draining serous fluid. The wound is opened and packed the neck with iodoform.Wound cultures pending infectious disease consulted and followingPatient needs daily dressing changesRest of management per primary, pt can downgradeDiscussed with Dr. Kern will continue to follow at 1105 RPT #:[id number] OF REPORTPRProgress [id number]:57:00B.[id number] Available for patient znsdKRYYAKVXMSELAU6737-45-30L74:05:[address] [facility] 2022-11-12 10:13:00 [id number] 0CFA 35W+AX28wwA9qxJsAehW2yhA8oKCpE4X9593-56-28Y9 0:13:[id number] [place] [address] PATIENT NAME: BRIGHT SALAZAR ADMIT DATE: 11/11/22ACCOUNT NO: [id number] ROOM NO: B.ICU22 AGE: 57 REPORT TYPE: PROGRESS NOTE SEX: M ADMITTING PHYSICIAN:Ezra Austin MD ATTENDING PHYSICIAN:Yung Loomis MD DATE: 11/12/2022 INFECTIOUS DISEASE PROGRESS NOTE TIME: 1011 hours. SUBJECTIVE: The patient is doing okay with no new issues or complaints. OBJECTIVE:VITAL SIGNS: Noted.GENERAL: He is lying quietly in bed, nontoxic. There is dressing over hisright neck region. Dressings not removed.HEART: Regular rate. S1, S2 normal.LUNGS: Clear.ABDOMEN: Soft and quiet. LABORATORY DATA: The patient's culture of the right neck wound from November is still pending. His blood cultures from November 10 are pending. I called the [facility] hospital, his blood cultures from November 10 at their facilityhave remained negative. His white count is 8500, has been stable and declined since he was admitted.Hemoglobin is 11.3 and platelet count is 411,000. Metabolic profile shows a BUNof 14, creatinine 0.64. ASSESSMENT:1. A 57-year-old male.2. Hypertension.3. Diabetes mellitus.4. Coronary artery disease.5. History of poor compliance previously.6. PVD.7. Status post right MCA, CVA on 09/26/2022.8. Status post right carotid endarterectomy on 10/08/2022, now with wounddehiscence, culture is pending. RECOMMENDATIONS: At the present time, the patient is medically stable. Hiswhite count has declined. His culture of the surgical site is still pending. Iwill continue his cefepime and the IV vancomycin and follow him clinically. In addition, I discussed with the patient about going to another facility to finish his antibiotics and I will consult the high risk case manager to evaluate him for PATIENT NAME: BRIGHT SALAZAR this issue. All of hisquestions were answered. Dictated By: Jacquie De La Garza MD Date Dictated: 11/12/2022 10:13:12Date Transcribed: 11/12/2022 10:23:30CC/GUSJob #: [id number] ID: [id number] and Edited by Jacquie De La Garza MD On 11/12/22 10:57:16 AM at 1059 PATIENT NAME: BRIGHT SALAZAR upkl0066-01-30G31:23:00B.[id number] vailable for patient lvmvYNVBTIJDWOYSQB2317-90-22D28:00:[address] [facility] 2022-11-12 09:22:00 [id number]tDuh fuws bdPb+5yeFZdmGZOQWZavzAYJkQ3iVUgp4329-51-08O2 9:22:00 [facility] [place] ([facility])DT PROGRESS NOTEREPORT#:[id number] REPORT STATUS: SignedDATE:11/12/22 TIME: 921 PATIENT: BRIGHT SALAZAR UNIT #: [id number]#: [id number] [facility]BDMK: [facility] AGE: 57 SEX: M ATTEND: Jimmy Mark MDADM AUTHOR: Dave Garces MD * ALL edits or amendments must be made on the electronic/computer document * Progress NoteProgress NoteLying in bed no distress awake alert oriented denies any complaints said his pain on the right side of his neck will incision and drainage was done as less than before.Anicteric sclera, no conjunctival injection, pupils equally reactive to lightNo tenderness over frontal and maxillary sinusesNo evidence of pharyngeal or tonsillar congestion, midline uvulaNo use of accessory musclesNo thyromegaly, cervical mandibular or supraclavicular clavicular lymph nodesRight neck surgical wound, midline trachea, no JVD or bruitThorax is symmetric with good expansion, lungs resonant, breath sounds vesicular: No Rales, wheezes or rhonchi. Cardiovascular examination normal heart sounds, normal S1-S2, no murmur, rub or gallop.Abdominal examination: Soft nontender, no organomegaly or palpable mass, no guarding or rebound tenderness normal bowel sounds.Musculoskeletal: Left below-knee amputation, full range of motion, normal inspection, no muscle spasm, clubbing, cyanosis, calf tenderness or pedal edema.Neurologic exam: Awake alert oriented, moving all 4 extremities spontaneously, Von Coma Scale 15/15. Current Medications Sig/Ekta Start time Last Medication Dose Route Stop Time Status Admin Hydromorphone HCl 0.2 MG ONCE ONE 11/11 2229 DC 11/11 IV 11/11 2231 2306 Ezetimibe 10 MG BEDTIME 11/11 2100 AC 11/11 PO 12/11 2101 2122 Insulin Human NPH 35 UNIT BID MEALS 11/11 1700 AC 11/12 SUBQ 12/11 0801 0830 Vancomycin HCl 1.25 GM Q12H 11/11 1600 AC 11/12 Sodium Chloride 250 ML IV 11/18 2100 0418 Cefepime HCl 2 GM Q8HR 11/11 1400 AC 11/12 Sterile Water 20 ML IV 11/25 1401 0605 Aspirin 81 MG DAILY 11/11 09 AC 11/12 PO 12/11 0901 0830 Docusate Sodium 100 MG DAILY 11/11 0900 AC 11/12 PO 12/11 0901 0830 Magnesium Sulfate 50 ML ONCE ONE 11/11 09 DC 11/11 IV 11/11 1059 0918 Metoprolol Succinate 50 MG DAILY 11/11 899 AC 11/12 PO 12/11 0901 0831 Quetiapine Fumarate 50 MG BID 11/11 09 AC 11/12 PO 12/11 09 0830 Gabapentin 400 MG TID 11/11 599 AC 11/12 PO 12/11 06 0606 Cefepime HCl 1 GM Q6H 11/11 0400 DC 11/11 Sterile Water 10 ML IV 11/18 0359 0901 Miscellaneous 1 EACH ASDIR 11/11 0400 CKD Information IV 11/18 0359 Cyclobenzaprine HCl 5 MG TID PRN PRN 11/11 034 AC PO 12/11 0346 Labetalol HCl 10 MG Q4H PRN PRN 11/11 0345 AC IV 12/11 034 Magnesium Oxide 400 MG ASDIR PRN 11/11 034 AC PO 12/11 034 Magnesium Oxide 800 MG ASDIR PRN 11/11 0345 AC PO 12/11 0346 Nitroglycerin 0.4 MG Q5M PRN PRN 11/11 0345 AC SL 12/11 0346 Potassium Chloride 20 MEQ ASDIR PRN 11/11 0345 AC PO 12/11 0346 Potassium Chloride 40 MEQ ASDIR PRN 11/11 0345 AC PO 12/11 0346 Potassium Chloride 40 MEQ ASDIR PRN 11/11 0345 AC PO 12/11 0346 Senna/Docusate Sodium 1 UDTAB BID PRN PRN 11/11 0345 AC PO 12/11 0346 Acetaminophen 500 MG Q6H PRN PRN 11/11 0230 AC PO 12/11 0231 Dextrose/Water 25 ML ASDIR PRN 11/11 0230 CKD IV 12/11 0231 Glucagon 1 MG ASDIR PRN 11/11 0230 AC IM 12/11 0231 Glucose Polymer 15 GM ASDIR PRN 11/11 0230 AC PO 12/11 0231 Hydrocodone Bitart/ 1 TAB Q6H PRN PRN 11/11 0230 AC 11/12 Acetaminophen PO 12/11 023 0210 Insulin Human Lispro See Dose ASDIR PRN 11/11 0230 AC 11/11 Insts (1) SUBQ 12/11 0231 2122 Lactated Ringer's 1,000 ML .[id number] 11/11 023 AC 11/12 IV 12/11 0231 0418 Mupirocin 1 APPLIC BID 11/11 0230 AC 11/12 NASAL 11/15 0901 0831 Assessment/Plan: Right CEA wound infection -S/p incision and drainage at bedside by CV surgery-CT with rim enhancing abscess vs phlegmon abutting the right carotid sheath.-Continue IV abx: Cefepime and vancomycin-Follow blood and wound cultures -LA 0.8, afebrile, normotensive, non-toxic appearing-IVF maintenance-Continue daily ASA, hold on restarting plavix until discuss with CVSx due to possible need for I D Hypokalemia -will give 30meq IV now-Monitor and replete as needed DMT2-BG monitoring-ISS coverage + long acting, target euglycemia Hypertension-PRNs available-Resume home metoprolol HLD-Home medication resumed Chronic pain-PRNs available-Home gabapentin Nutrition -Tolerating oral diet continue oral diabetic diet -Continue DVT and GI prophylaxis Total critical care time >35 minutes. Total critical care time documented does not include time spent on separately billed procedures or the services of residents, students, nurses or physician assistants. I personally saw and examined the patient. I have reviewed all diagnostic interpretations and treatment plans as written. I was present for the wyatt portions of any proceduresperformed and the inclusive time noted in any critical care statement. Critical care time includes patient management by me, time spent at the patients bedside,time to review lab and imaging results, discussing patient care, documentation in the medical record, and time spent with the family or caregiver. at 1832 [facility] #:[id number] OF REPORTPRProgress [id number]:22:00B.[id number] Available for patient iyuaNCBMPBLSORIPOL9860-47-74T84:32:[address] [facility] 2022-11-12 04:37:00 [id number]/c73sEmVGXM7yvxt3L30j Qc94 kILMJlzXYFCyn1Q6mHVkRtCVw7ykQIzc3460-12-38F6 4:37:[id number] [place], [place] [address] PATIENT NAME: BRIGHT SALAZAR ADMIT DATE: 11/11/22ACCOUNT NO: [id number] ROOM NO: [place] [address] AGE: 57 REPORT TYPE: eECHOCARDIOGRAM REPORT SEX: M ADMITTING PHYSICIAN:Ezra Austin MD ATTENDING PHYSICIAN:Yung Loomis MD Name: BRIGHT SALAZAR Study Date: 11/12/2022 04:37 AMPatient Location:[place] [address] WMRN: [id number]: [id number] BP: 142/69 mmHgAccount #: [id number]: 72 inGender: Male Weight: 170 lbDOB: 1965 Gender: MaleAge: 57 yrsEthnicity: W BSA: 2.0 i7Sidtni For Study: ELEVATED TROPONIN Cardiac Measurements with Normal Values:Ao root diam: 3.3 cm 20-37 mmLA dimension: 3.5 cm 19-40 mmLVIDd: 4.9 cm 37-56 mmLVIDs: 3.8 cm - IVSd: 1.2 cm6-11 mm MMode/2D Measurements CalculationsLVPWd: 1.2 cm FS: 23.0 % EDV(Teich): 115.1 ml ESV(Teich): 62.2 ml EF(Teich): 46.0 % EDV(MOD-sp4): 92.9 mlAo root area: 8.7 cm2 ESV(MOD-sp4): 43.4 ml EF(MOD-sp4): 53.2 % SV(MOD-sp4): 49.4 ml ConclusionsThis is a limited transthoracic echocardiogram with real-time 2D [place]. [place] [address]. The study is technically adequate. Patient was innormal sinus rhythm during the study. 1. The left ventricle is normal in size with mild concentric LVH and lownormal systolic function. The estimated ejection fraction is 50 to 55% withnormal wall motion but subtle septal hypokinesis.2. The right ventricle is normal in size and systolic function. PATIENT NAME: BRIGHT SALAZAR Compared to study done 10/07/2022, no significant changes noted. Electronically signed by: Edis Ascencio MD 11/12/2022 08:18 AMOrdering Physician: Bushra Laird Physician: Referred, SelfPerformed By: Bean Bernstein at 0818 PATIENT NAME: BRIGHT SALAZAR :18:00B.[id number] for patient clcmEDXNSWTBSSAICY6460-14-84T34:19:[address] [facility] 2022-11-11 12:10:00 [id number]/wb+S+mN+J2DLg EQei FTzk+Cx3R7Ttv+zYjkLaTA3dhRw/oCMy3132-47-26A9 2:10:00 [facility] ConsultREPORT#:[id number] REPORT STATUS: SignedDATE:11/11/22 TIME: 1210 PATIENT: BRIGHT SALAZAR UNIT #: [id number]#: [id number] [address]-ICVW: 65 AGE: 57 SEX: M ATTEND: Yung Loomis AUTHOR: Kelvin Kern MD * ALL edits or amendments must be made on the electronic/computer document * History of Present Illness HPIChief complaint:Drainage from right neck incisionHPI:57-year-old male who presented to the hospital in October with left-sided weakness and acute stroke. 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 The patient was stabilized and then underwent right carotid endarterectomy with patch to prevent further embolic stroke.The patient has a known history of left below-knee amputation for severe diseaseand had a history of infection with MRSA to the wound on the left leg on the same admission. The wound in the left leg is closed now.The patient had extensive rehab after his carotid endarterectomy. And was discharged home. The patient lives by himself. He noticed drainage from the incision on the right chest which was copious and according to the patient was greenish in color with no foul smell. The patient has had no fevers or chills.The patient came to ER in [place] where a CTA neck was done which revealed a fluid collection around the carotid sheath. I have reviewed the results of those films with the ER physician and accepted the transfer to [facility] for further management.Currently the patient is stable . HistoryPast Medical History:Reports: Coronary artery disease, Diabetes mellitus, Hypertension, Dyslipidemia. Additional Medical History:DM 2 CAD, multivessel LVEF 50-55% Hypertension Hyperlipidemia Poor medical follow through and complaince. PVD Diabetic Neuropathy Lt BKA infection req'ing multiple rounds of antibiotics andhospitalizations. Falls Atherosclerosis to the thoracic aorta, coronary arteries, abdominal aortaand branching vessels Calcified granulomas RLL Degenerative disc disease L3-L5 and cervical spine Osteophytosis lower thoracic spine Right ICA stenosis 09/26/2022 Right MCA CVA 09/26/22 Indeterminate right parotid lesionsPast Surgical History:Reports: CABG (x4), Cholecystectomy. Additional Surgical History:R CEA 10/08/22 CABG and PCI 2009 Multiple toe amputations transmetatarsal amputation 2020 Left BKA 2 stage lcohol Use Last drink was rug Use Denies recreational drugsSmoking status for patients 13 years old or older: Current every day smoker (0.5PPDx 40 yrs)Date last smoked: 11/11/22Packs per day: 0.5Years smoked: 40Pack years: 20.0Additional Social History:Lives alone. Stated his sister left so he is alone. Concerned he has not utilities on at his house.Allergies:Coded Allergies:Frkbcsp-IDX-OzU Reductase Inhibitor (Intermediate, JOINT PAIN 10/22/22) JOINT PAIN Review of Systems Free Text ROS NotesFree Text ROS Notes:Review of SystemsConstitutional:Denies: chills, fatigue, fever, generalized weakness, lethargy, malaise, recent wt loss, other. Skin:Denies: abrasion, bruising, contusion, diaphoresis, ecchymosis, itching, laceration, rash, swelling, other. Allergy/Immun:Denies: allergic reaction, anaphylaxis, hives, itching, rhinorrhea, sneezing, other. ENT:Denies: ear drainage, ear ringing, earache, hearing loss, mouth pain, nasal congestion, nose bleeding, sinus problem, sore throat, throat pain, throat swelling, tongue pain, tongue swelling, toothache, voice change, other. Has drainage from the right neck incisionRespiratory:Denies: AZEVEDO (dyspnea on exertion), hemoptysis, non productive cough, parox nocturnal dyspnea, pleurisy, pleuritic pain, pneumonia, productive cough (sputum), SOB, wheezing, other. Cardiovascular:Denies: chest pain, AZEVEDO (dyspnea on exertion), edema, orthopnea, palpitations, parox nocturnal dyspnea, other. GI:Denies: abdominal pain, anorexia, constipation, diarrhea, dysphagia, GERD, hematemesis, hematochezia, hiatal hernia, melena, nausea, rectal pain, vomiting,other. Musculoskeletal:Denies: arthritis, extremity pain, extremity swelling, joint pain, joint swelling, lumbar pain, myalgias, neck pain, thoracic pain, other. Neuro:Denies: bladder dysfunction, bowel dysfunction, change in LOC, confusion, dizziness, focal weakness, gait problem, headache, lightheaded, numbness, seizure, slurred speech, spinning sensation, syncope, unable to speak, vision change, weakness, other. Psych:Denies: agitation, anxiety, auditory hallucination, change in mental status, confusion, delusional, depression, homicidal ideation, hostile, insomnia, stress, suicidal ideation, visual hallucination, other. Objective Physical ExamVS/I O:Last Documented: Result Date Time Pulse Ox 96 11/11 1201 B/P 117/57 11/11 1201 B/P Mean 82 11/11 1201 Pulse 81 11/11 1201 Resp 18 11/11 1201 Temp 97.9 11/11 0800 O2 Delivery Room air 11/11 0500 FiO2 21 11/11 0452 24 hour I O ending at 0700: 11/11 0700 11/10 1900 Intake Total 750.00 Output Total 300 Balance 450.00 Intake, IV 750.00 Output, Urine 300 Patient 77.273 kg Weight Weight Stated/Reported Measurement Method PATIENT WEIGHT: Weight (lb): Weight (oz): Weight (kg): 77.273 ResultsFindings/Data:Laboratory Tests 11/11 05 Chemistry POC Glucose (70 - 119 MG/DL) 123 H Hemoglobin A1c (4.5 - 5.6 % IS-A1C) 9.3 H Estim Average Glucose (MG/DLest) 220 Triglycerides (0 - 150 MG/DL) 154 H Cholesterol (133 - 200 MG/DL) 116 L LDL Cholesterol Measurd (0 - 129 MG/DL) 67 Non-HDL Cholesterol (<130 mg/dL) 98 HDL Cholesterol (40 - 59 MG/DL) 18 L LDL/HDL Ratio (1.48 - 3.22 Avg Ratio) 3.72 H Cholesterol/HDL Ratio (0 RATIO) 6.44 Specimen Appearance (1 NORMAL Index/DL) 1 NORMAL <2 MG Specimen Hemolysis (1 NORMAL Index/DL) 1 NORMAL <10 MG 11/11 0523 2301 Chemistry Sodium (133 - 144 mmol/L) 136.0 Potassium (3.5 - 5.1 mmol/L) 3.5 Chloride (95 - 105 mmol/L) 105 Carbon Dioxide (21 - 32 mmol/L) 24 Anion Gap (4.0 - 15.0 GAP calc) 7.0 BUN (7 - 18 MG/DL) 20 H Creatinine (0.55 - 1.30 MG/DL) 0.64 Glomerular Filtr Rate (>60 estGFR) 110 Glucose (70 - 110 MG/DL) 127 H Calcium (8.5 - 10.1 MG/DL) 8.6 Magnesium (1.6 - 2.6 MG/DL) 1.4 L Troponin I High Sens (0 - 45 ng/L) 145 *H C-Reactive Protein (0.000 - 0.900 MG/DL) 4.010 H TSH (0.340 - 4.820 mc IU/ML) 0.782 Specimen Appearance (1 NORMAL Index/DL) 1 NORMAL <2 MG Specimen Hemolysis (1 NORMAL Index/DL) 1 NORMAL <10 MG 11/10 11/10 2301 2301 Chemistry Sodium (133 - 144 mmol/L) 137.0 Potassium (3.5 - 5.1 mmol/L) 3.2 L Chloride (95 - 105 mmol/L) 102 Carbon Dioxide (21 - 32 mmol/L) 29 Anion Gap (4.0 - 15.0 GAP calc) 6.0 BUN (7 - 18 MG/DL) 22 H Creatinine (0.55 - 1.30 MG/DL) 0.89 Glomerular Filtr Rate (>60 estGFR) 100 Glucose (70 - 110 MG/DL) 103 Lactic Acid (0.4 - 2.0 mmol/L) 0.8 Calcium (8.5 - 10.1 MG/DL) 8.8 Total Bilirubin (0.00 - 1.00 MG/DL) 0.27 Direct Bilirubin (0.00 - 0.30 MG/DL) < 0.10 Indirect Bilirubin (0.2 - 1.3 MG/DL) 0.27 AST (15 - 37 Unit/L) 21 ALT (12 - 78 Unit/L) 22 Total Alk Phosphatase (45 - 117 Unit/L) 135 H Total Protein (6.4 - 8.2 G/DL) 10.2 H Albumin (3.4 - 5.0 G/DL) 2.5 L Specimen Appearance (1 NORMAL Index/DL) 1 NORMAL <2 MG Specimen Hemolysis (1 NORMAL Index/DL) 2 TRACE 10-25 MG Laboratory Tests 11/11 522 Coagulation PT (9.4 - 12.5 SECONDS) 14.3 H INR (0.88 - 1.13 INR Unit) 1.27 H PTT (Nga) (24 - 37.7 SECONDS) 29.6 Laboratory Tests 11/11 11/10 0523 2301 Hematology WBC (4.1 - 12.1 K/mm3) 11.4 13.9 H RBC (3.8 - 5.5 M/mm3) 4.23 5.09 Hgb (10.6 - 15.8 G/DL) 12.0 14.1 Hct (31.8 - 47.4 %) 35.7 42.7 MCV (80.1 - 101.1 fL) 84.4 83.9 MCH (25.3 - 35.3 pg) 28.4 27.7 MCHC (32.7 - 35.1 G/DL) 33.6 33.0 RDW (12.2 - 16.4 %) 14.1 14.2 Plt Count (155 - 337 K/mm3) 419 H 505 H MPV (7.6 - 10.4 fL) 9.4 9.3 Gran % (37.8 - 82.6 %) 56.1 59.9 Lymph % (Auto) (14.1 - 45.4 %) 29.4 26.1 Williams % (Auto) (2.5 - 11.7 %) 9.1 8.8 Eos % (Auto) (0.0 - 6.2 %) 2.8 2.2 Baso % (Auto) (0.0 - 2.6 %) 0.9 0.8 Gran # (2.0 - 13.7 k/mm3) 6.37 8.35 Lymph # (Auto) (0.6 - 3.8 K/mm3) 3.34 3.63 Williams # (Auto) (0.11 - 0.59 K/mm3) 1.03 H 1.22 H Eos # (Auto) (0.0 - 0.4 K/mm3) 0.32 0.31 Baso # (Auto) (0.0 - 0.1 K/mm3) 0.10 0.11 H Immature Gran % (0.0 - 2.0 %) 1.7 2.2 H Nucleated RBC % (0.0 - 1.0 /100WBC%) 0.0 0.0 Nucleated RBCs # (0.00 - 0.05 K/mm3) 0.00 0.00 ESR (0 - 20 mm/hr) 92 H Radiology data:Recent Impressions:RADIOLOGY - XR CHEST 1 V 11/10 2300 Report Impression - Status: SIGNED Entered: 11/10/2022 4000 IMPRESSION: No active pulmonary findings.Impression By: [email or web address] - Radha Fairchild M.D. Free Text Obj NotesFree Text Obj Notes:General appearance: alert, awake, oriented, no acute distressHEENT: anicteric, mucosal membranes moist, pupils reactive to light, sclera clearNeck: full range of motion, non-tender, supple/no meningismus, no JVD, no massesor swellingCardiovascular: BP/pulses equal bilat., regular rate rhythm, no ectopy, no gallop, no heave, no rubRespiratory: aerating well, clear to auscultation, symmetric expansion, no distress, no tendernessAbdomen: soft, non-tender, normal bowel sounds, no distention, no guarding, no hernia, no mass/organomegaly, no reboundExtremities: dry, moves all, normal capillary refillMusculoskeletal: full range of motion, no CVA tenderness, no muscle spasmNeuro/RN MATERNITY: alert, oriented X 3, CNII-XII intact, Skin: dry, intact, normal temperature, no abscessPsychiatry: normal affect, normal judgment/insight, normal mood, not homicidal, not suicidal, no hallucinations Diagnosis, Assessment PlanFree Text A P:57-year-old male with history of stroke on last admission with thrombosis of theright internal carotid artery. This was treated by urgent right carotid endarterectomy which was uneventful. The patient has had a recent below-knee amputation also which got admitted on the last admission with MRSA in the wound. The patient has been discharged from rehab to home where he suddenly noticed drainage for the last 2 days from the wound on the right side which as per the patient was copious. No evidence of bleeding in the drainage. He did not notice any swelling or tenderness.The patient has been admitted to the hospital a CTA neck was done at [facility] was discussed with me by the ER physician which as per report shows fluid collection around the carotid sheath. No evidence of contrast extravasation suggestive of carotid blowout. I have examined the wound the wound is not tender at the lower part of the incision on the right side has a small sinus opening which is draining serous fluid. I opened the wound locally using local anesthetic on the bedside no purulence was noted. I have packed the neck with iodoform. We will obtain a contrast esophagogram to rule out any esophageal leak as infections in the neck and drainage after carotid are very uncommon so ruling out any esophageal perforation would be wyatt. We will also repeat CTA head and neck as I do not have access to the images of the head CT done at [facility]. I have had a detailed discussion with the patient and explained to him that mostof the times the fluid collection could be drained locally as we have opened thelower neck incision and this would suffice we would continue daily dressing changes twice a day with iodoform. If the drainage resolves and the wound healsappropriately we would not need any further surgical intervention.We have also obtained wound cultures to rule out infection which will further help us with management if its of infectious etiology. We will also obtain infectious disease consultation for the same. Further management will be based on results of the repeat CTA neck culture results and esophagogram to rule out perforation of esophagus at 1220 RPT #:[id number] OF REPORTAGXpaexvxhcodx9811-93-15Q53:10:00B. [id number] for patient tjtsEEDTSRDFDGEWZP7766-25-53Q73:21:[address] [facility] 2022-11-11 11:30:00 [id number]+xwdaT18gQtw+WI3OoM YFGy oUsXJYHUWNYrZRwJYSI7IVnLveS3swjC0135-23-61N0 1:30:[id number] [place] [address] PATIENT NAME: BRIGHT SALAZAR ADMIT DATE: 11/11/22ACCOUNT NO: [id number] ROOM NO: ICU AGE: 57 REPORT TYPE: CONSULTATION REPORT SEX: M ADMITTING PHYSICIAN:Ezra Austin MD ATTENDING PHYSICIAN:Yung Loomis MD CONSULTATION DATE: 11/11/2022 INFECTIOUS DISEASE CONSULTATION TIME: 1122 hours. CHIEF COMPLAINT: Transferred from [facility]. SOURCE OF INFORMATION: Information is from my prior knowledge of this patient,the medical record as well as the patient himself. REASON FOR CONSULTATION: Infected right CEA surgical site. HISTORY OF PRESENT ILLNESS: Mr. Salazar is a 57-year-old male. He has anextensive medical history including hypertension, diabetes mellitus type 2,coronary artery disease that is multivessel as well as hyperlipidemia. He has poor medical compliance and follow through. He has PVD, also diabetic neuropathy and status post left below-knee amputation with infection requiring multiple rounds of antibiotics and hospitalizations. He has had a series of falls, also has a history of atherosclerosis of the thoracic aorta, coronary arteries, abdominal aorta and branching vessels. He has calcified granulomas of the right lower lobe. He has degenerative disk disease of L3-L5 and his cervical spine. He has osteophytes of the lower thoracic spine also indeterminate right parotid lesions. He has had right ICA stenosis and he also has had a right MCA CVA on 09/26/2022. SURGICAL HISTORY: Includes right carotid endarterectomy on 10/08/2022, alsoprior CABG and PCI in 2009 as well as multiple toe amputations, also the TMA offoot from 2020 and the recent left below-knee amputation in 04/2022. The patient was recently [facility]. At that time, he was doing well. Hissurgical site of the left below-knee amputation was healing nicely with noantimicrobial therapy. The patient states that he got up yesterday morning, which was 11/10/2022. Heis going to go and cut grass or do something outside and he started developing agreen drainage from his right neck region, the surgical site. He went to [facility] and upgraded and sent him here for evaluation. He now has a dressingin place. Culture has already been performed and I was asked to see him inconsultation in regards to this issue. PATIENT NAME: BRIGHT SALAZAR REVIEW OF SYSTEMS: Reveals no fevers or chills, although he is now complainingabout being cold. PAST MEDICAL HISTORY:ALLERGIES: ACCORDING TO THE MEDICAL RECORD, THE PATIENT IS ALLERGIC TO STATINSAND HMG-COA REDUCTASE INHIBITORS, CAUSING JOINT PAIN. MEDICAL ILLNESSES: Please see HPI above. SURGICAL HISTORY: Please see HPI above. MEDICATIONS: On the chart and noted. HABITS: Every day smoker. No use of alcohol or illicit drugs. SOCIAL HISTORY: The patient lives alone. According to medical record, he isconcerned that as he does not have any utilities in his house. PHYSICAL EXAMINATION:VITAL SIGNS: Noted. He is afebrile.GENERAL: Lying quietly in bed. He is awake, alert, nontoxic. Looks tired andfatigued, but nontoxic.HEENT: Head normocephalic, atraumatic. Sclerae white. Nose is normal.Pharynx is clear.NECK: Has decreased range of motion. He has packing of the right CEA surgicalsite with erythema surrounding it.CARDIOVASCULAR: Regular rate. S1, S2 present.LUNGS: Fairly clear.ABDOMEN: Soft and quiet.EXTREMITIES: His left BKA site is healing without any drainage or discharge andno significant erythema or edema. LABORATORY STUDIES: The patient's blood cultures x2 sets yesterday, currentlypending and negative to date. Culture of the wound was performed earlier thismorning is pending. His white count is 11,400 yesterday was 13,900, so a littlebit lower today. Today's hemoglobin is 12, and platelet count was 419,000. Hismetabolic profile today shows a BUN of 20, creatinine 0.64. Yesterday, his glycosylated hemoglobin is 9.3, which is extremely elevated. HisCRP was 4.01, which is also elevated. Today, his sed rate is 92, which quiteelevated Chest x-ray, 1 view shows no active disease. Notes from cardiothoracic surgeryservice are pending. His current antimicrobial therapies are IV cefepime and vancomycin. ASSESSMENT:1. A 57-year-old male.2. Debilitated state.3. Hypertension.4. Diabetes mellitus, uncontrolled.5. Multivessel coronary artery disease. PATIENT NAME: BRIGHT SALAZAR 6. Hyperlipidemia.7. Poor medical follow through and compliance.8. The patient does not have utilities and lives alone, he may need a bettersocial services upon discharge.9. Peripheral vascular disease.10. Diabetic neuropathy.11. Status post left below-knee amputation, site is stable at this time with nosigns of active infection.12. History of falls.13. Degenerative joint disease of the spine.14. Infection of the right carotid endarterectomy site, most likely a Staph bacteria, although certainly a gram-negative is also a possibility. RECOMMENDATIONS: At the present time, the patient is stable. At this point, Iwill continue cefepime and vancomycin and follow up on the culture that wasperformed of the drainage. Since the drainage was green in color, I am concerned about pseudomonas type of infection. I will continue to monitor and make recommendations as needed. All of his questions were answered. Dictated By: Jacquie De La Garza MD Date Dictated: 11/11/2022 11:30:08Date Transcribed: 11/11/2022 13:39:46CC/ELIZABETH/Kumar #: [id number] ID: [id number] and Edited by Jacquie De La Garza MD On 11/11/22 3:37:00 PM at 0339 PATIENT NAME: BRIGHT SALAZAR :39:0 0B.[id number] for patient zadhWDSOOUBFSTCAKI0855-17-96Z55:40:[address] [facility] 2022-11-11 09:56:00 [id number] W/bu +lGACbFYoAuAeGJj3VskoAOsuMPU1rGi8671-96-94P9 9:56:00 [facility] ([facility])Cardiology ConsultationREPORT#:[id number] REPORT STATUS: SignedDATE:11/11/22 TIME: 955 PATIENT: BRIGHT SALAZAR UNIT #: [id number]#: [id number] [facility] AGE: 57 SEX: M ATTEND: Ezra Austin [facility] AUTHOR: Mark Laird MD * ALL edits or amendments must be made on the electronic/computer document * History of Present Illness HPIRequesting Clinician: NOVA RAMIRESeason for consult:ELEVATED TROPONINChief complaint:Right neck infectionHPI:This is a 57-year-old male patient with known history of hypertension, hyperlipidemia, CAD status post CABG and PCI, diabetes mellitus, peripheral arterial disease and carotid artery stenosis s/p right CEA presented to the hospital with infected right CEA location. In this context patient was noted tohave elevated troponin and hence cardiology is consulted. Patient denies any active chest pain, palpitations, dizziness or diaphoresis at this time. History - Adult longitudinalPast medical history:Reports: Coronary artery disease, Diabetes mellitus, Hypertension, Dyslipidemia. Additional medical history:DM 2 CAD, multivessel LVEF 50-55% Hypertension Hyperlipidemia Poor medical follow through and complaince. PVD Diabetic Neuropathy Lt BKA infection req'ing multiple rounds of antibiotics andhospitalizations. Falls Atherosclerosis to the thoracic aorta, coronary arteries, abdominal aortaand branching vessels Calcified granulomas RLL Degenerative disc disease L3-L5 and cervical spine Osteophytosis lower thoracic spine Right ICA stenosis 09/26/2022 Right MCA CVA 09/26/22 Indeterminate right parotid lesionsPast surgical history:Reports: CABG (x4), Cholecystectomy. Additional surgical history:R CEA 10/08/22 CABG and PCI 2009 Multiple toe amputations transmetatarsal amputation 2020 Left BKA 2 stage dditional family history:Family history of diabetes, no bleeding or clotting dyscrasiasAlcohol use: Last drink was rug use: Denies recreational drugsSmoking status for patients 13 years old or older: Current every day smoker (0.5PPDx 40 yrs)Date last smoked: 11/11/22Packs per day: 0.5Years smoked: 40Pack years: 20.0Additional social history:Lives alone. Stated his sister left so he is alone. Concerned he has not utilities on at his house.Allergies:Coded Allergies:Rybuecj-JJU-UxQ Reductase Inhibitor (Intermediate, JOINT PAIN 10/22/22) JOINT PAIN Review of Systems Free Text ROS NotesFree Text ROS Notes:A complete 12 point review system was performed, positives and pertinent negatives are recorded in the HPI above, the rest of systems were negative. Objective GeneralVS/I O:Vital Signs: Date Time Temp Pulse Resp B/P B/P Pulse O2 O2 Flow FiO2 Mean Ox Delivery Rate 11/11 0609 85 137/64 92 87 11/11 0500 86 152/60 86 11/11 0500 20 99 Room air 06/05 0452 93 Room air 21 /05 0400 97.9 06/05 0400 93 20 140/73 99 97 06/05 0306 20 06/05 0306 90 168/96 122 99 06/05 0227 98.3 06/05 0203 95 176/81 115 99 06/05 0200 20 06/05 0100 91 132/64 88 06/05 0030 88 152/86 113 06/05 0006 94 157/92 119 / 2330 100 / 2305 20 / 2300 94 100 06/ 2238 96 171/84 118 99 / 2221 105 18 119/76 90 99 Room air 24 hour I O ending at 0700: 11/11 0700 11/10 1900 Intake Total 750.00 Output Total 300 Balance 450.00 Intake, IV 750.00 Output, Urine 300 Patient 77.273 kg Weight Weight Stated/Reported Measurement Method PATIENT WEIGHT: Weight (lb): Weight (oz): Weight (kg): 77.273 Free Text Obj NotesFree Text Obj Notes:General Impression: Alert and oriented x3, not in acute distressHEENT: Normocephalic atraumatic, extraocular movements intact, pupils equal and reactive to light bilaterallyCardiovascular: Heart regular rate and rhythm, S1 S2 audible, no murmursChest: Lungs clear to auscultation bilaterally, no rhonchi, no wheeze, no ralesAbdomen: Bowel sounds present, abdomen soft, non-tender, non-distended, no organomegalyExtremities: No cyanosis, clubbing or edema. Diagnosis, Assessment Plan Free Text DxA P NotesFree Text DxA P Notes:Assessment:1. Elevated troponin2. Hypertension, benign3. Hyperlipidemia, mixed4. CAD s/p CABG and PCI5. Diabetes mellitus6. PAD7. Infection at the site of right CEA Plan:Elevated troponin likely secondary to type II MT in context of infectionWe will plan for limited echocardiogram to check for any new wall motion abnormality or drop in EF. Patient's previous echo showed EF of 45% with local/regional wall motion abnormality. This will be used for comparison.Resume home medications for blood pressure managementGDMT for CADAspirin daily in context of underlying diabetesInfection management on the right CEA location per CT surgery teamDiabetes management per primary team. Thank you very much for the consultation and we highly appreciate allowing us haley part of this patient care. Mark Laird MD, [facility], [facility] of [address] [place] [address]Savrp: [phone]: [email or web address] at 0959 RPT #:[id number] OF REPORTQNTnlanofpfciu4629-13-43W84:56:00B. [id number] for patient kjfzVFBOEDQIHDNTWM6992-62-48B73:59:[address] [facility] 2022-11-11 02:49:00 [id number]/D/ 8Pr4 exT73Zk1KujolFNet/KFR8O+xjaRR7pp6330-43-45G9 2:49:00 [facility] Prog.Note-VancomycinREPORT#:[id number] REPORT STATUS: SignedDATE:11/11/22 TIME: 0249 PATIENT: BRIGHT SALAZAR UNIT #: [id number]#: [id number] [address]-IRDV: [address] AGE: 57 SEX: M ATTEND: Ezra Austin [facility] AUTHOR: Jay Jay [facility] * ALL edits or amendments must be made on the electronic/computer document * Vancomycin Vancomycin Medication TherapyIndication for treatment:surgical wound infxnLabs:Laboratory Test : 11/10 2300 Chemistry BUN (7 - 18 MG/DL) 22 H Creatinine (0.55 - 1.30 MG/DL) 0.89 Hematology WBC (4.1 - 12.1 K/mm3) 13.9 H Microbiology:11/11 210 NASAL: MRSA Screen - ORD11/10 2300 BLOOD: Blood Culture - RECD11/10 2300 BLOOD: Blood Culture - RECD11/10 2300 BLOOD: Blood Culture - RECD06/04 2301 BLOOD: Blood Culture - RECD Treatment plan: Vanc 2 gm x 1 then 1.25 gm q12h. Trough before fourth dose on 11/12. at 0251 RPT #:[id number] OF REPORTPRProgress hfuu6449-42-97M09:49:00B.[id number] Available for patient mtraXJMQIOBSVNYHIX5677-32-18Q62:51:46 [facility] 2022-11-11 02:10:00 [id number]GtSd wzoo 02uycyKAdXgWd15e5uB3MOGukqsmDWca6412-16-56L5 2:10:00 [facility])Critical Care Consult NoteREPORT#:[id number] REPORT STATUS: SignedDATE:11/11/22 TIME: 209 PATIENT: BRIGHT SALAZAR UNIT #: [id number]#: [id number] [facility]97-YJWY: 65 AGE: 57 SEX: M ATTEND: Yung Loomis [facility] AUTHOR: Peg Kinsey ETHICS INSTRUCTOR * ALL edits or amendments must be made on the electronic/computer document * Peg Kinsey 11/11/22 0210:History of Present Illness HPIHPI:This is a 57-year-old male with PMH significant for T2DM poorly controlled, hypertriglyceridemia, hypertension, coronary artery disease status post CABG andPCI since 2009, PAD, chronic neuropathy, 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 Patient was admitted to this hospital on 10/04/2022 for stroke like symptoms. Hewas found to have Right MCA infarct due to Right ICA thombus. Patient was then taken by Dr. Kern on 10/08/22 for Right CEA. He was then discharged to rehab on 10/14 and stayed thru 10/25. CT imaging from [place] demonstrated a rim-enhancing abscess versus phlegmon abutting the right carotid sheath. Admited to ICU for closer monitoring. CVSx has been notified by ED physician. History - Adult longitudinalPast medical history:Reports: Coronary artery disease, Diabetes mellitus, Hypertension, Dyslipidemia. Additional medical history:Poor medical follow through and complaince. PVD diabetic Neuropathy Lt BKA infection req'ing multiple rounds of antibiotics and hospitalizations. Falls Atherosclerosis to the thoracic aorta, coronary arteries, abdominal aorta and branching vessels Calcified granulomas RLL Degenerative disc disease L3-L5 and cervical spine Osteophytosis lower thoracic spinePast surgical history:Reports: CABG (x4), Cholecystectomy. Additional surgical history:Multiple toe amputations transmetatarsal amputation 2020 Left BKA 2 stage dditional family history:Family history of diabetes, no bleeding or clotting dyscrasiasSmoking status for patients 13 years old or older: Current every day smokerDate last smoked: 11/11/22Allergies:Coded Allergies:Rgwhoii-EKX-RfM Reductase Inhibitor (Intermediate, JOINT PAIN 10/22/22) JOINT PAIN Review of Systems ROSAll systems rev neg: except as marked Objective Physical ExamVS/I O:Last Documented: Result Date Time B/P 132/64 11/11 0100 B/P Mean 88 / 0100 Pulse 91 / 0100 Pulse Ox 100 / 2330 Resp 20 06/04 2305 O2 Delivery Room air 11/10 2221 24 hour I O ending at 0700: 06/05 0700 11/10 1900 Intake Total Output Total Balance Patient 77.273 kg Weight Weight Stated/Reported Measurement Method Patient Weight and BMI Weight (kg): 77.273 BMI: 23.1 Medications:Active Meds + DC'd Last 24 HrsSodium Chloride (NORMAL SALINE 100 ML) 100 ML .STK-MED ONE IV (DC) Ceftriaxone Sodium (ROCEPHIN) 1 GM X1ED STA IV (DC) Sterile Water (STERILE WATER) 10 MLVancomycin HCl (VANCOMYCIN 1,000) 1,000 MG X1ED STA IV (DC) Sodium Chloride (NORMAL SALINE 250 ML) 250 ML General appearance: alert, awake, orientedHead/Eyes: atraumatic, clear cornea, EOMI, normocephalic, PERRLENT: poor dentition, moist mucosal membranesNeck: full range of motion, no masses or swelling, right cea wound with purulentdrainage/erythemaCardiovascular: normal capillary refill, normal heart sounds, no ectopyRespiratory: aerating well, clear to auscultation, symmetric expansionAbdomen: soft, non-tenderExtremities: moves all, no clubbing, l bkaMusculoskeletal: normal inspection, l bkaNeuro/RN MATERNITY: oriented X 3, normal speech, poor historian/recent strokeSkin: dry, intact, normal color, normal temperature, no rashWound/incision: Location:right anterior neck Diagnosis, Assessment PlanFree text DxA P:Assessment/Plan: concern for Surgical wound infection Recent Right CEA on 10/08/22, now with purulent drainage from site-CT with rim enhancing abscess vs phlegmon abutting the right carotid sheath.-CVSx consulted-IV abx: Cefepime and vancomycin-Blood cultures collected-LA 0.8, afebrile, normotensive, non-toxic appearing-IVF maintenance-Continue daily ASA, hold on restarting plavix until discuss with CVSx due to possible need for I D Hypokalemia -will give 30meq IV now-Monitor and replete as needed DMT2-BG monitoring-ISS coverage + long acting, target euglycemia Hypertension-PRNs available-Resume home metoprolol HLD-Home medication resumed Chronic pain-PRNs available-Home gabapentin Diet: NPOVTE: SCD to right leg GIP: not indicatedCode: FullDispo: ICU Total critical care time >35 minutes. Total critical care time documented does not include time spent on separately billed procedures or the services of residents, students, nurses or physician assistants. I personally saw and examined the patient. I have reviewed all diagnostic interpretations and treatment plans as written. I was present for the wyatt portions of any proceduresperformed and the inclusive time noted in any critical care statement. Critical care time includes patient management by me, time spent at the patients bedside,time to review lab and imaging results, discussing patient care, documentation in the medical record, and time spent with the family or caregiver. Dave Garces 11/11/22 1706:Attestations Physician AttestationAgree w/findings plan:Agree with the findings and plan as documented by nurse practitioner Peg Continue IV antibiotics, patient will need I D for right cervical abscess aroundprevious carotid endarterectomy wound, will need CT scan neck to rule out any esophageal fistula or perforation. at 0233 at 1706 RPT #:[id number] OF REPORTJIYyivhuskpijr4829-90-90P10:10:00B. [id number] for patient zxyiJJNWIEWFBSFTZF0735-68-85D69:34:[address] [facility] 2022-11-11 01:30:00 [id number]+exA 1cj5 fB61dwgmEn9b1FcUs1F04GbZqaMMpdes8714-26-02S5 1:30:00 [facility] CenterHospitalist History PhysicalREPORT#:[id number] REPORT STATUS: SignedDATE:11/11/22 TIME: 0130 PATIENT: BRIGHT SALAZAR UNIT #: [id number]#: [id number] [facility] AGE: 57 SEX: M ATTEND: Jimmy Mark [facility] AUTHOR: Ezra Austin MD * ALL edits or amendments must be made on the electronic/computer document * History of Present Illness HPIChief complaint:R neck drainage PCP:PCP: No Primary or Family Physician HPI:This is a 57-year-old male with history of multivessel CAD with prior CABG and PCI, DM 2, hyperlipidemia, hypertension, PAD, CVA and right carotid stenosis status post right CEA 10-29, tobacco dependence and continues to smoke, presentedin the ED because of purulent drainage from right carotid endarterectomy site. Per patient, he was doing fine, and today he noticed that a copious amount of greenish discharge spilled out of his surgical wound right side of his neck. Hedenied fever chills, or increased pain in the neck. No shortness of breath, chest pain or palpitation. Patient did note that there was some redness around the surgical site. Patient was evaluated at [facility] and was subsequently transferred here because of a ring-enhancing abscess abutting the right carotid sheath. Work-up at [place] revealed a white count of 13.3,H H of 13.2 and 38.7 platelet of 453. BMP unremarkable except glucose of 174 BUN of 27 albumin 2.5. Lactic acid was within normal limits. EKG showed sinus rhythm with rate of 100 no acute ischemic changes. CT of the neck showeda rim-enhancing abscess versus phlegmon abutting the right carotid sheathpatient received a dose of Zosyn, cultures were done. Patient also complained of nonhealing wound BKA stump and increased pain. Paient was admitted here for right MCA CVA, status post right CEA 10-29, discharged to rehab 5 8 and discharged from rehab 10/25/2022. History Past Medical Surgical HxAdditional medical history:DM 2CAD, multivesselLVEF 50-55% HypertensionHyperlipidemiaPoor medical follow through and complaince.PVDDiabetic NeuropathyLt BKA infection req'ing multiple rounds of antibiotics andhospitalizations.FallsAtherosclerosis to the thoracic aorta, coronary arteries, abdominal aortaand branching vesselsCalcified granulomas RLLDegenerative disc disease L3-L5 and cervical spineOsteophytosis lower thoracic spineRight ICA stenosis 09/26/2022Right MCA CVA 09/26/22Indeterminate right parotid lesions Additional surgical history:R CEA 10/08/22CABG and PCI 2009Multiple toe amputationstransmetatarsal amputation eft BKA 2 stage 04/2022 Family HistoryAdditional family history:Family history of diabetes, no bleeding or clotting dyscrasias Social HistoryAlcohol use: Last drink was rug use: Denies recreational drugsSmoking status for patients 13 years old or older: Current every day smoker (0.5PPDx 40 yrs)Additional social history:Lives alone. Stated his sister left so he is alone. Concerned he has not utilities on at his house. Medication/Allergy-Vaccine HxAllergies:Coded Allergies:Lbpgwec-HUA-VtD Reductase Inhibitor (Intermediate, JOINT PAIN 10/22/22) JOINT PAIN Review of Systems Free Text ROS NotesFree Text ROS Notes:14 point review of system performed and pertinent findings as mentioned HPI Otherwise, the rest of the ROS is negative and none contributory to this admission and HPI. OBJECTIVEVS/I O:Vital Signs: Date Time Temp Pulse Resp B/P B/P Pulse O2 O2 Flow FiO2 Mean Ox Delivery Rate 11/11 0227 98.3 11/11 0100 91 132/64 88 / 0030 88 152/86 113 06/05 0006 94 157/92 119 /04 2330 100 / 2305 20 / 2300 94 100 / 2238 96 171/84 118 99 11/10 2221 105 18 119/76 90 99 Room air Weight (kg): 77.273 BMI: 23.1 General: Patient is awake and alert, conversant, not in respiratory distressHEENT: Head is normocephalic and atraumatic. EOM is intact. No periorbital edema Normal external ear and naris. Moist buccal mucosa.Neck:Neck is supple, range of motion is intact. R CEA site- swollen, erythematous with purulent drainage expressed form inferior end of incision, warm to touchChest and lungs:Breath sounds symmetric and clear, no intercostal retractionCVS:Regular rhythm. No thrill. Palpable and equal radial pulses.Abdomen: Not distended, nontender. Soft.Extremities:L BKA stump: wound lateral end (dehiscence) with surrounding erythemaNeuro: Patient is awake and alert, oriented. Nonfocal motor function and intact sensory to touch. Grossly intact cranial nerve function, speech is clear.Psych: Appropriate affect and thought contentSkin: No rash DIAGNOSTICS (Reviewed):Labs EKG Imaging StatementLaboratory radiographic studies reviewed and considered in the medical decision-making. Laboratory Tests: 11/10 11/10 11/10 2301 2301 2301 Chemistry Sodium (133 - 144 mmol/L) 137.0 Potassium (3.5 - 5.1 mmol/L) 3.2 L Chloride (95 - 105 mmol/L) 102 Carbon Dioxide (21 - 32 mmol/L) 29 Anion Gap (4.0 - 15.0 GAP calc) 6.0 BUN (7 - 18 MG/DL) 22 H Creatinine (0.55 - 1.30 MG/DL) 0.89 Glomerular Filtr Rate (>60 estGFR) 100 Glucose (70 - 110 MG/DL) 103 Lactic Acid (0.4 - 2.0 mmol/L) 0.8 Calcium (8.5 - 10.1 MG/DL) 8.8 Total Bilirubin (0.00 - 1.00 MG/DL) 0.27 Direct Bilirubin (0.00 - 0.30 MG/DL) < 0.10 Indirect Bilirubin (0.2 - 1.3 MG/DL) 0.27 AST (15 - 37 Unit/L) 21 ALT (12 - 78 Unit/L) 22 Total Alk Phosphatase (45 - 117 Unit/L) 135 H Troponin I High Sens (0 - 45 ng/L) 145 *H Total Protein (6.4 - 8.2 G/DL) 10.2 H Albumin (3.4 - 5.0 G/DL) 2.5 L Specimen Appearance (1 NORMAL Index/DL) 1 NORMAL <2 MG Specimen Hemolysis (1 NORMAL Index/DL) 2 TRACE 10-25 MG Hematology WBC (4.1 - 12.1 K/mm3) 13.9 H RBC (3.8 - 5.5 M/mm3) 5.09 Hgb (10.6 - 15.8 G/DL) 14.1 Hct (31.8 - 47.4 %) 42.7 MCV (80.1 - 101.1 fL) 83.9 MCH (25.3 - 35.3 pg) 27.7 MCHC (32.7 - 35.1 G/DL) 33.0 RDW (12.2 - 16.4 %) 14.2 Plt Count (155 - 337 K/mm3) 505 H MPV (7.6 - 10.4 fL) 9.3 Gran % (37.8 - 82.6 %) 59.9 Lymph % (Auto) (14.1 - 45.4 %) 26.1 Williams % (Auto) (2.5 - 11.7 %) 8.8 Eos % (Auto) (0.0 - 6.2 %) 2.2 Baso % (Auto) (0.0 - 2.6 %) 0.8 Gran # (2.0 - 13.7 k/mm3) 8.35 Lymph # (Auto) (0.6 - 3.8 K/mm3) 3.63 Williams # (Auto) (0.11 - 0.59 K/mm3) 1.22 H Eos # (Auto) (0.0 - 0.4 K/mm3) 0.31 Baso # (Auto) (0.0 - 0.1 K/mm3) 0.11 H Immature Gran % (0.0 - 2.0 %) 2.2 H Nucleated RBC % (0.0 - 1.0 /100WBC%) 0.0 Nucleated RBCs # (0.00 - 0.05 K/mm3) 0.00 Microbiology: Date/Time Procedure - Status Source Growth 11/11 210 MRSA Screen - ORD NASAL 11/10 2300 Blood Culture - RECD BLOOD 11/10 2300 Blood Culture - RECD BLOOD 11/10 2300 Blood Culture - RECD BLOOD 11/10 2300 Blood Culture - RECD BLOOD Recent Impressions:RADIOLOGY - XR CHEST 1 V 11/10 2299 Report Impression - Status: SIGNED Entered: 11/10/20222329IMPRESSION: No active pulmonary findings.Impression By: [email or web address] - Radha Fairchild M.D. Diagnosis, Assessment PlanFree Text A P:Post op wound infectionR CEA+ Abscess R neckSEPSISLeukocytosis- LA WNL- Monitor CBC- BCS- Culture of wound- Antibiotic- Dr Kern consulted in ED- Keep NPO - ID consult Azotemia- IVF Elevated TroponinType 2 MT doubt ACSEKG no Acute isch changeH/O Multivessel CAV CABG- denied CP- Trend troponin- Continue Antiplatelet ASA- resume Plavix when Ok with CTS- continue medical MX: BB, Statin, NTG- Hold ACTh for now - Cannot tolerate statin- Cardio consult L BKA stump non healing woundwith Cellulits- Patient will be on Antibiotic for above- ID consult Dr Lewis saw patient before- Defer Ortho consult to Attending Right MCA CVA 09/26/22Right ICA stenosis R CEA 10/08/22- continue medical MX: ASA, Cannot tolerate statin DM 2Diabetic Neuropathy- SSNI- Optimize BS Control- Gabapentin- NPH BID and SSNI Hypertension, Ess- optimize BP control- Continue med TOprol XL 50- PRN BP Med Hypokalemia- Elctrolyte protocol Hyperlipidemia, Mixed- Cannot tolerate Statin- Zetia PVDL BKA- Antiplatelet- Risk modification QUALITY:DVT PROPHYLAXIS ordered: Pharmacological prophylaxis - defer to ATtending, pending CTS input HOME MEDS have been reconciled, and ordered Essential GENERAL ADMIT MEDS Orders entered Advance Care Planning and Code Status Discussed: Full CodeSUICIDE ASSESSMENT : No risk I have discussed the findings, working diagnosis/ses and plan of treatment withpatient and all concerns and questions have been addressed at this time to the best of my abilities based on the initial and limited data at this time. I discussed the pros and cons of all options with the patient and engaged in shared-decision making. Agreeable with Admission My Order - Last 24 Hours Procedure Date/time Status THYROID STIMULATING HORMONE 11/11 599 Active SED RATE 11/11 599 Active MAGNESIUM 11/11 599 Active LIPID PROFILE (CORONARY RISK) 11/11 599 Active HGBA1C 11/11 599 Active C REACTIVE PROTEIN 11/11 599 Active CBC W/AUTO DIFF 11/11 599 Active BASIC METABOLIC PANEL 11/11 599 Active Nurse to order labs 11/11 346 Active Notify MD - Labs 11/11 346 Active CULTURE WOUND 11/11 346 Active PT AND PTT 11/11 346 Active WOUND CARE NURSING CONSULT 11/11 346 Active Provider Consult 11/11 346 Active Active Meds + DC'd Last 24 HrsEzetimibe (ZETIA) 10 MG BEDTIME PO Insulin Human NPH (HumuLIN N) 35 UNIT BID MEALS SUBQ (UNV) Vancomycin HCl (Vancomycin HCl) 1.25 GM Q12H IV Sodium Chloride (NORMAL SALINE 250 ML) 250 MLAspirin (ASPIRIN) 81 MG DAILY PO Docusate Sodium (COLACE 100 MG CAP) 100 MG DAILY PO (UNV) Metoprolol Succinate (TOPROL XL) 50 MG DAILY PO (UNV) Metoprolol Tartrate (LOPRESSOR) 50 MG DAILY PO (CAN) Quetiapine Fumarate (SEROqueL) 50 MG BID PO (UNV) Gabapentin (NEURONTIN) 400 MG TID PO Cefepime HCl (Cefepime HCl) 1 GM Q6H IV Sterile Water (STERILE WATER) 10 MLMiscellaneous Information (VANCOMYCIN PHARMACY TO DOSE) 1 EACH ASDIR IV (CKD) Cyclobenzaprine HCl (FLEXERIL) 5 MG TID PRN PRN PO (UNV) Labetalol HCl (TRANDATE MDV) 10 MG Q4H PRN PRN IV (UNV) Magnesium Oxide (MAG-OX 400) 400 MG ASDIR PRN PO (UNV) Magnesium Oxide (MAG-OX 400) 800 MG ASDIR PRN PO (UNV) Nitroglycerin (NITROSTAT) 0.4 MG Q5M PRN PRN SL (UNV) Potassium Chloride (K-DUR) 20 MEQ ASDIR PRN PO (UNV) Potassium Chloride (K-DUR) 40 MEQ ASDIR PRN PO (UNV) Potassium Chloride (K-DUR) 40 MEQ ASDIR PRN PO (UNV) Senna/Docusate Sodium (SENOKOT-S) 1 UDTAB BID PRN PRN PO (UNV) Vancomycin HCl (VANCOMYCIN 1,000) 1,000 MG ONCE ONE IV Sodium Chloride (NORMAL SALINE 250 ML) 250 MLPotassium Chloride (KCL 10 MEQ/100ML) 100 ML Q1HR IV Acetaminophen (TYLENOL EXTRA STRENGTH) 500 MG Q6H PRN PRN PO Dextrose/Water (DEXTROSE 50%-WATER) 25 ML ASDIR PRN IV (CKD) Glucagon (GLUCAGON) 1 MG ASDIR PRN IM Glucose Polymer (GLUTOSE) 15 GM ASDIR PRN PO Hydrocodone Bitart/Acetaminophen (NORCO 5/325 TABLET) 1 TAB Q6H PRN PRN PO Insulin Human Lispro (HUMALOG) See Admin Criteria ASDIR PRN SUBQ Lactated Ringer's (LACTATED RINGERS) 1,000 ML .[id number] IV Mupirocin (BACTROBAN) 1 APPLIC BID NASAL Sodium Chloride (NORMAL SALINE 100 ML) 100 ML .STK-MED ONE IV (DC) Ceftriaxone Sodium (ROCEPHIN) 1 GM X1ED STA IV (DC) Sterile Water (STERILE WATER) 10 MLVancomycin HCl (VANCOMYCIN 1,000) 1,000 MG X1ED STA IV (DC) Sodium Chloride (NORMAL SALINE 250 ML) 250 ML MDMComplexity: High Data: High Risk:ModPatient to be admitted. All test results ( Labs, Imaging studies, EKG ) have been personally reviewed by me, addressed upon, and considered in the medical decision-making. I ordered more tests (see orders). Consulted Cardio. I also reviewed records from prior admission. Discussed with ED Doc. I have performed a Medically Appropiate History and Physical. As I am a Television Engineer and Admitting MD only, I am SIGNING OFF to one of the Hospital Doc's Dayshift Attending - TO BE ASSIGNED MD - will continue patient's care and management effective 0600 am of 11/11/2022. I have initiated patient's plan of care based on preliminary diagnosis/ses and initial available test results and date. I am deferring further evaluation, treatment, and consultations to the assigned Attending. ---This note was partially created using a voice-recognition transcribing system. I have reviewed my note and incorrect words or phrases may have been missed during proofreading. Please interpret accordingly. at [address] [place] [address] #:[phone] OF REPORTHPHistory and physical [id number]:30:00B.[id number] -0011AVAvailable for patient [id number]:17:[address] [facility] 2022-11-11 00:59:00 [id number] 3oTO [id number]+[id number] 0:59:00 [facility] ([facility])EMERGENCY PROVIDER REPORTREPORT#:[id number] REPORT STATUS: SignedDATE:11/11/22 TIME: 58 PATIENT: BRIGHT SALAZAR UNIT #: [id number]#: [id number] ROOM/BED: [place] [id number]-IPPP: 57 SEX: M PCP PHYS: No Primary or Family PhysicianSERVICE AUTHOR: Robbie Sellers MD * ALL edits or amendments must be made on the electronic/computer document * HPI-General Illness Free Text HPI NotesFree Text HPI [id number]-vao male past medical history of CVA and recent carotid endarterectomy who was transferred from [facility] for concern of infected surgical wound. Patient reports that while he was at the activities he noticed that a copious amount of greenish discharge spilled out of his surgical wound. Patient denies any pain or difficulty breathing. Patient did note that there was some redness around the surgical site. Patient underwent a CTA of his neck that demonstrated a rim-enhancing abscess versus phlegmon abutting the right carotid sheath. [facility] Date/Time 11/10/222241 PresentationChief Complaint __ (Wound infection) [facility] of Systems [facility] except as marked. Past Medical History - AdultStated Complaint FROM [facility] CenterergiesCoded Allergies:Qlxxveh-BVR-CtF Reductase Inhibitor (Intermediate, JOINT PAIN 10/22/22) JOINT PAIN Home MedicationsActive ScriptsMORPHINE SULFATE (MORPHINE) 15 MG PO Q8HPRN PRN pain 7-10 MORPHINE SULFATE (MORPHINE) 15 MG PO Q8HPRN PRN pain 7-10 #15 TABS Prov: 10/24/22CYCLOBENZAPRINE HCL (FLEXERIL) 5 MG PO TID PRN PRN MUSCLE SPASMS CYCLOBENZAPRINE HCL (FLEXERIL) 5 MG PO TID PRN PRN MUSCLE SPASMS #30 TAB Prov: 10/24/22CLOPIDOGREL (PLAVIX) 75 MG PO DAILY CLOPIDOGREL (PLAVIX) 75 MG PO DAILY #30 TAB Prov: 10/24/22METOPROLOL TARTRATE (LOPRESSOR) 50 MG PO DAILY METOPROLOL TARTRATE (LOPRESSOR) 50 MG PO DAILY #30 TAB Prov: 10/24/22EZETIMIBE (ZETIA) 10 MG PO BEDTIME EZETIMIBE (ZETIA) 10 MG PO BEDTIME #30 TAB Prov: 10/24/22ASPIRIN 81 MG PO DAILY ASPIRIN 81 MG PO DAILY #100 TAB Prov: 10/24/22QUEtiapine (SEROquel) 50 MG PO BID QUEtiapine (SEROquel) 50 MG PO BID #60 TAB Prov: 10/24/22GABAPENTIN (NEURONTIN) 400 MG PO TID GABAPENTIN (NEURONTIN) 400 MG PO TID #90 CAP Prov: 10/24/22SENNOSIDES/DOCUSATE SOD (JOS-COLACE 8.6/50 MG) 1 UDTAB PO BID PRN SENNOSIDES/DOCUSATE SOD (JOS-COLACE 8.6/50 MG) 1 UDTAB PO BID PRN #100 TAB Prov: 10/24/22DME - INSULIN SYRINGES (INSULIN SYRINGES) EACH MISC ASDIR DME - INSULIN SYRINGES (INSULIN SYRINGES) EACH MISC ASDIR #100 Prov: 10/24/22DME - GLUCOSE LANCETS (GLUCOSE LANCETS) EACH MISC DAILY DME - GLUCOSE LANCETS (GLUCOSE LANCETS) EACH MISC DAILY #100 Prov: 10/24/22DME - GLUCOSE METER (GLUCOSE METER) EACH MISC ASDIR DME - GLUCOSE METER (GLUCOSE METER) EACH MISC ASDIR #1 Prov: 10/24/22DME - GLUCOSE STRIPS (GLUCOSE STRIPS) EACH MISC DAILY DME - GLUCOSE STRIPS (GLUCOSE STRIPS) EACH MISC DAILY #100 Prov: 10/24/22INSULIN NPH HUMAN RECOM (HumuLIN N) 35 UNITS SUBQ BID MEALS INSULIN NPH HUMAN RECOM (HumuLIN N) 35 UNITS SUBQ BID MEALS #10 ML Prov: 06/11/22 Calculated Suicide Risk (nurs) No riskPast Medical History:Reports: Coronary artery disease, Diabetes mellitus, Hypertension, Dyslipidemia. Additional Medical HistoryPoor medical follow through and complaince. PVD diabetic Neuropathy Lt BKA infection req'ing multiple rounds of antibiotics and hospitalizations. Falls Atherosclerosis to the thoracic aorta, coronary arteries, abdominal aorta and branching vessels Calcified granulomas RLL Degenerative disc disease L3-L5 and cervical spine Osteophytosis lower thoracic spinePast Surgical History:Reports: CABG (x4), Cholecystectomy. Additional Surgical HistoryMultiple toe amputations transmetatarsal amputation 2020 Left BKA 2 stage dditional Family HistoryFamily history of diabetes, no bleeding or clotting dyscrasiasAlcohol Use Last drink was rug Use Denies recreational drugsSmoking status for patients 13 years old or older: Unknown,if ever smokedAdditional Social HistoryLives alone. Stated his sister left so he is alone. Concerned he has not utilities on at his house. Physical Exam Vital SignsVital SignsFirst Documented: Result Date Time Pulse Ox 99 11/10 2220 B/P 119/76 11/10 2220 B/P Mean 90 11/10 2220 O2 Delivery Room air 11/10 2220 Pulse 105 11/10 2220 Resp 18 11/10 2220 Last Documented: Result Date Time B/P 132/64 11/11 99 B/P Mean 88 11/11 010 Pulse 91 11/11 010 Pulse Ox 100 11/10 2330 Resp 20 11/10 230 O2 Delivery Room air 11/10 2220 Review of Vital Signs Reviewed, Vital signs abnormal Basic Physical ExamBasic PE GEN: Well appearing/NAD, HEAD: Atraumatic/NC, EYES: PERRL, conj clear, ENT: Membranes moist, RESP: No resp distress, CV: Reg rate rhythm, ABD: Soft/non-tender, EXT: No gross abnormality, SKIN: No rashes, warm/dry, NEURO: alert oriented, NEURO: gross movement NL, PSYCH: NL thought content Physical ExamMS Neck Text/Dict NotesSurgical incision in place with purulent drainage expressed on the inferior aspect of the incision. Surrounding erythema noted.Resp/Chest Respiratory/Chest Atraumatic, Breath sounds NL, Breath sounds = bilat, No respiratory distress, No rales, No rhonchi, No wheezing, No retractions, No stridor, No chest tenderness, No chest wall deformity, No crepitusCardiovascular Cardiovascular Heart rate NL, Regular rhythm, Heart sounds NL, No gallop, No murmurs, No rubs, Cap refill not delayed, Peripheral circulation NL, Pulses = bilaterally, No gross BP differentialAbdomen/GI Abdomen/GI Atraumatic, Soft, Non-tender, McBurney's non-tender, No guarding, No rebound, BS normoactive, No distention, No hernia, No palpable mass, No pulsatile mass Interpretation Diagnostics Lab Results InterpretationResultsLaboratory Tests 11/10/222300:[Embedded Image Not Available]Laboratory Tests: 11/10 230 Chemistry Sodium (133 - 144 mmol/L) 137.0 Potassium (3.5 - 5.1 mmol/L) 3.2 L Chloride (95 - 105 mmol/L) 102 Carbon Dioxide (21 - 32 mmol/L) 29 Anion Gap (4.0 - 15.0 GAP calc) 6.0 BUN (7 - 18 MG/DL) 22 H Creatinine (0.55 - 1.30 MG/DL) 0.89 Glomerular Filtr Rate (>60 estGFR) 100 Glucose (70 - 110 MG/DL) 103 Lactic Acid (0.4 - 2.0 mmol/L) 0.8 Calcium (8.5 - 10.1 MG/DL) 8.8 Total Bilirubin (0.00 - 1.00 MG/DL) 0.27 Direct Bilirubin (0.00 - 0.30 MG/DL) < 0.10 Indirect Bilirubin (0.2 - 1.3 MG/DL) 0.27 AST (15 - 37 Unit/L) 21 ALT (12 - 78 Unit/L) 22 Total Alk Phosphatase (45 - 117 Unit/L) 135 H Troponin I High Sens (0 - 45 ng/L) 145 *H Total Protein (6.4 - 8.2 G/DL) 10.2 H Albumin (3.4 - 5.0 G/DL) 2.5 L Specimen Appearance (1 NORMAL Index/DL) 1 NORMAL <2 MG Specimen Hemolysis (1 NORMAL Index/DL) 2 TRACE 10-25 MG Hematology WBC (4.1 - 12.1 K/mm3) 13.9 H RBC (3.8 - 5.5 M/mm3) 5.09 Hgb (10.6 - 15.8 G/DL) 14.1 Hct (31.8 - 47.4 %) 42.7 MCV (80.1 - 101.1 fL) 83.9 MCH (25.3 - 35.3 pg) 27.7 MCHC (32.7 - 35.1 G/DL) 33.0 RDW (12.2 - 16.4 %) 14.2 Plt Count (155 - 337 K/mm3) 505 H MPV (7.6 - 10.4 fL) 9.3 Gran % (37.8 - 82.6 %) 59.9 Lymph % (Auto) (14.1 - 45.4 %) 26.1 Williams % (Auto) (2.5 - 11.7 %) 8.8 Eos % (Auto) (0.0 - 6.2 %) 2.2 Baso % (Auto) (0.0 - 2.6 %) 0.8 Gran # (2.0 - 13.7 k/mm3) 8.35 Lymph # (Auto) (0.6 - 3.8 K/mm3) 3.63 Williams # (Auto) (0.11 - 0.59 K/mm3) 1.22 H Eos # (Auto) (0.0 - 0.4 K/mm3) 0.31 Baso # (Auto) (0.0 - 0.1 K/mm3) 0.11 H Immature Gran % (0.0 - 2.0 %) 2.2 H Nucleated RBC % (0.0 - 1.0 /100WBC%) 0.0 Nucleated RBCs # (0.00 - 0.05 K/mm3) 0.00 Microbiology: Date/Time Procedure - Status Source Growth 11/10 2300 Blood Culture - RES BLOOD 11/10 2300 Blood Culture - RES BLOOD 11/10 2300 Blood Culture - RES BLOOD 11/10 2300 Blood Culture - RES BLOOD Recent Impressions:RADIOLOGY - XR CHEST 1 V 11/10 2299 Report Impression - Status: SIGNED Entered: 11/10/20222329 IMPRESSION: No active pulmonary findings.Impression By: [email or web address] - Radha Fairchild M.D. Re-Evaluation MDM Free Text MDM NotesFree Text MDM NotesMedical decision makin-year-old male patient past with history of CVA and recent right carotid endarterectomy who presents with surgical site infection. On physical exam, palpation of the inferior aspect of the wound expresses purulent drainage. Area is warm to the touch.Number and complexity of problems: SepsisCellulitisAbscess Differential diagnosis: CellulitisPhlegmonAbscessPNAOccult bacteremia MDM dataExternal documents reviewed: Transfer documents [facility] EKG interpretation: Normal sinus rhythm with nonspecific T wave change in aVLMy CT interpretation: Per transfer documents patient has a 1.3 x 2.3 rim-enhancing fluid collection abutting the right carotid sheathMy x-ray interpretation: X-ray was negative acuteMy ultrasound interpretation: N/ALabs reviewed by me are significant for: Patient did have leukocytosis with elevated troponin. We will continue to trend. Mild hypokalemia noted.Decision rules course evaluated: N/ADiscussed with: Hospitalist about admissionI consider admission for: Surgical site infection and sepsisTreatment disposition: AdmissionED course: Patient was given empiric IV antibiotics. Patient was admitted to ICU per cardiothoracic surgeon recommendation. Patient admitted for further evaluation managementShared decision making: N/ACODE STATUS: Full code ED CourseMedication(s) OrderedMedication(s) Ordered:Anti-Infective Agents Sig/Ekta Start time Last Medication Dose Route Stop Time Status Admin Ceftriaxone Sodium 1 GM X1ED STA 11/10 2343 DC 11/11 Sterile Water 10 ML IV 11/10 2344 0015 Vancomycin HCl 1,000 MG X1ED STA 11/10 2342 DC 11/11 Sodium Chloride 250 ML IV 11/11 0111 0016 Electrolytic, Caloric, And Aniket Sig/Ekta Start time Last Medication Dose Route Stop Time Status Admin Sodium Chloride 100 ML .STK-MED ONE 11/11 0007 DC 11/11 IV 0015 Patient Discharge Departure Vital Signs/ConditionVital SignsFirst Documented: Result Date Time Pulse Ox 99 / 2221 B/P 119/76 / 2221 B/P Mean 90 / 2221 O2 Delivery Room air 11/10 2221 Pulse 105 06/04 2221 Resp 18 / 2221 Last Documented: Result Date Time B/P 132/64 06/ 0100 B/P Mean 88 06/05 0100 Pulse 91 06/05 0100 Pulse Ox 100 06/04 2330 Resp 20 06/04 2305 O2 Delivery Room air /04 2221 All vital signs available at the time of this entry have been reviewed. Condition Stable Clinical ImpressionClinical ImpressionPrimary Impression: Surgical site infectionSecondary Impressions: SepsisTime of Impression 0114 Disposition DecisionHospitalize Hosp Physician Name Ezra Austin MD Hosp Physician Hospitalist Request Time 0114 Request Date 11/11/22 )( Accepts Hospitalization Yes )( Reason for HospitalizationSurgical site infection and sepsis )( Accepted Time 0114 )( Accepted Date 11/11/22 at 1106RPT #:[id number] OF REPORTEDEmergency department [id number]:59:00B.[id number] AVAvailable for patient [id number]:07:[address] [facility] 2022-10-25 13:04:00 [id number] SHGr [id number]+[id number] 3:04:00 [facility] ([facility])Rehab Discharge SummaryREPORT#:[id number] REPORT STATUS: SignedDATE:10/25/22 TIME: 1304 PATIENT: BRIGHT SALAZAR UNIT #: [id number]#: [id number] [address] AGE: 57 SEX: M ATTEND: Flako Elias MDADM AUTHOR: Flako Elias MD * ALL edits or amendments must be made on the electronic/computer document * Med Rec Med RecDischarge meds:Continue taking these medications:INSULIN NPH HUMAN RECOM (HumuLIN N) 100 UNIT/ML VIAL 35 UNITS SUBCUTANEOUS TWICE DAILY WITH MEALS. Qty = 10 CLOPIDOGREL (PLAVIX) 75 MG TAB 75 MILLIGRAM ORAL DAILY. Qty = 30 This prescription has been renewed METOPROLOL TARTRATE (LOPRESSOR) 50 MG TAB 50 MILLIGRAM ORAL DAILY. Qty = 30 This prescription has been renewed EZETIMIBE (ZETIA) 10 MG TAB 10 MILLIGRAM ORAL BEDTIME. Qty = 30 This prescription has been renewed QUEtiapine (SEROquel) 50 MG TAB 50 MILLIGRAM ORAL TWICE DAILY. Qty = 60 This prescription has been renewed Start taking the following new medications:MORPHINE SULFATE (MORPHINE) 15 MG TAB 15 MILLIGRAM ORAL EVERY 6 HOURS NEEDED. as needed for Pain 5-10 Qty = 20 No Refills CYCLOBENZAPRINE HCL (FLEXERIL) 5 MG TAB 5 MILLIGRAM ORAL THREE TIMES DAILY NEEDED. as needed for MUSCLE SPASMS Qty = 30 No Refills ASPIRIN (ASPIRIN) 81 MG TAB.CHEW 81 MILLIGRAM ORAL DAILY. Qty = 100 No Refills GABAPENTIN (NEURONTIN) 400 MG CAP 400 MILLIGRAM ORAL THREE TIMES A DAY. Qty = 90 No Refills SENNOSIDES/DOCUSATE SOD (JOS-COLACE 8.6/50 MG) 8.6 MG-50 MG TAB 1 UD TABLET ORAL TWICE DAILY NEEDED. Qty = 100 No Refills MORPHINE SULFATE (MORPHINE) 15 MG TAB 15 MILLIGRAM ORAL EVERY 8 HOURS NEEDED as needed for pain 7-10 Qty = 15 No Refills DME - INSULIN SYRINGES (INSULIN SYRINGES) 1 ITEM EACH EACH MISCELLANEOUS DIRECTED. Qty = 100 No Refills Instructions: Insulin Syringes of choice. DME - GLUCOSE LANCETS (GLUCOSE LANCETS) 1 ITEM EACH EACH MISCELLANEOUS DAILY. Qty = 100 No Refills Instructions: Glucose Lancets of Choice DME - GLUCOSE METER (GLUCOSE METER) 1 ITEM EACH EACH MISCELLANEOUS DIRECTED. Qty = 1 No Refills Instructions: Glucose meter of Choice DME - GLUCOSE STRIPS (GLUCOSE STRIPS) 1 ITEM EACH EACH MISCELLANEOUS DAILY. Qty = 100 No Refills Instructions: Glucose Strips of Choice General Information General InformationProblem List/A P: 1. Stroke 2. Carotid stenosis 3. Left hemiparesis 4. Gait abnormality 5. Dysphagia 6. History of left below knee amputation Discharge date: 10/24/22Discharge diagnosis:CVAHospital course:Rehab Assessment and Plan: PT: for bed mobility, transfer training, gait training with AD, balance training, endurance improvement, LE strengthening, ROM improvementOT: for ADL and transfer trainingST: for cognitive and swallow evaluation with treatment as appropriatePrecautions: pain, left hemiparesis, Left BKASee final CARE scores Acute right ischemic stroke with left side hemiparesis: Seen in acute care by Neurology. Aspirin. Plavix. Zetia. Dysphagia: SLPHas decreased sensation on left side of face and feels like he is choking at times. Persistent Headache. Discussed with Dr Hammond, Neurologist. Pt had received 1x dose of Toradol w/ compazine and Benadryl on 10/05 without good effect. Current plan is to continue to titrate up pt's Gabapentin. Increased it to 400mg TID today. Concern for daytime somnelence. 10/17: Increase Gabapentin to 600mg TID. Discussed with nursing to watch for somnelence.10/21: Hospitalist started pt on PRN Fioricet. Decreased Gabapentin to 400mg TID.10/24: Improved with occasional headache. Able to sleep. Carotid stenosis. S/p Right CEA by Dr Kern. Pt to follow up with Dr Kern on discharge. Has an appt, but that appt may need to be moved if pt still in Rehab. Hx Left BKA with open area to incision: hat cutter consulted.Completed IVP Ceftriaxone on 10/11. 10/18: Wound culture positive for MRSA. Discussed with Dr De La Garza. XR of Tib-fib did not reveal an abscess or concern for gangrene. No antibiotic treatment at this time as pt's WBC are normal, VSS and no pain to area upon deeppalpation.10/22: ID recommends pt see a vascular surgeon as an outpatient. Pain: [facility] PRN. Tylenol prn. Flexeril PRN. Lidoderm patch to left ribs - Per pt, when he fell at home on 10/04, his left side fell on the handlebar of his scooter. CT of the chest and xrays of the chest did not reveal any fractures.10/16: discontinued [facility]. Start PO Morphine 15mg F8mkezo PRN.10/22: Complained of excessive pain to left side. EKG WNL. Trops WNL. Diabetes: A1c was 10.9 on 10/06/22. NPH BID. SSI Humalog PRN.10/18: NPH dosage increased on 10/16. Blood sugars improved.10/24: Pt noncompliant with diet. NPH dosage increased again for Blood sugars >200. Agitation: Seroquel10/18: Will decrease Seroquel as Gabapentin has been increased and pt is sleepy today.10/23: Seroquel increased back to 50mg BID. This is pt's home dose. PRN Xanax. HTN: Metoprolol. clonidine PRN. Constipation: PRN bowel medsSenna S 1 tab BID. DVT prophy: Heparin Medical management per IM client relationship consultant, appreciate management. Dispo: Discharged October 24 to home as he met all rehab goals and was able to discharge home with family. Discharge Instructions Discharge InstructionsDischarge to: Home/Self CareAdditional Discharge Routines: PCP Follow-Up, Or First Assist Registered Nurse Follow-UpDiet: DiabeticActivity: As Tolerated, No Driving, with knee scooter.Notify PCP of these S/S: Chest Pain, Numbness, Shortness of breath, Temp. 101 orgreater Follow-up AppointmentsPCP: PCP: No Primary or Family Physician PCP follow up timeframe: In 1-2 weeks Special instructions:You need to establish care with a PCP as soon as possible.Consulting provider 1: Provider 1: Kelvin Kern MD Specialty: Neurosurgery Consult follow up timeframe: When your sched appt is. Special instructions:Call the office to double check when your appt is.Consulting provider 2: Provider 2 (free-text): VAscular surgeon Special instructions:You can ask Dr Kern if he knows a vascular surgeon who can look at your left leg and assess it per the Infectious Disease Doctor. at [address] [facility] #:[id number] OF REPORTDSDischarge [id number]:04:00B.[id number] 3AVAvailable for patient [id number]:06:[address] [facility] 2022-10-24 11:14:00 [id number] uwJe AidhaLAIIzg/[id number] 1:14:[id number] [place] [address] PATIENT NAME: BRIGHT SALAZAR ADMIT DATE: 10/14/22ACCOUNT NO: [id number] ROOM NO: [facility] AGE: 57 REPORT TYPE: PROGRESS NOTE SEX: M ADMITTING PHYSICIAN:Flako Elias MD ATTENDING PHYSICIAN:Flako Elias MD DATE: 10/24/2022 INFECTIOUS DISEASE PROGRESS NOTE TIME: 1112 hours. SUBJECTIVE: The patient has no new issues or complaints. He is still worried about infection of his leg surgical site. I discussed with him there are no obvious signs of infection at this time. I also had a lengthy discussion with him about taking care of the site of his amputation with keeping it clean and dry, getting no dirt in it. In addition, I also discussed with him about being gentle with washing and not to pick off the scab that is present. OBJECTIVE:VITAL SIGNS: Noted.GENERAL: He is sitting in a wheelchair, awake, alert, nontoxic.EXTREMITIES: Examination of left BKA site reveals a small scab on the lateraledge of the surgical site with no drainage or discharge. It is nontender withpalpation, even with deep palpation. first assistant manager's notes from 10/22/2022 are in the computer and noted. ASSESSMENT:1. A 57-year-old male.2. Status post left below-knee amputation.3. No signs of obvious infection at this time. Discussed with the patientabout good care of his skin. RECOMMENDATIONS: At the present time, the patient is stable and afebrile. Heis cleared from my standpoint for disposition when he is cleared by all otherphysicians as well. All of his questions were answered. Dictated By: Jacquie De La Garza MD Date Dictated: 10/24/2022 11:14:01Date Transcribed: 10/24/2022 11:28:34CC/ED/Vick #: [id number] PATIENT NAME: BRIGHT SALAZAR Receipt ID: [id number] and Edited by Jacquie De La Garza MD On 10/25/22 9:28:24 AM at 0929 PATIENT NAME: BRIGHT SALAZAR [id number]:28:00B.[id number] vailable for patient [id number]:30:[address] [facility] 2022-10-24 10:45:00 [id number] [id number]/[id number] 0:45:00 [facility] ([facility])Rehab Progress NoteREPORT#:[id number] REPORT STATUS: SignedDATE:10/24/22 TIME: 1045 PATIENT: BRIGHT SALAZAR UNIT #: [id number]#: [id number] [facility] AGE: 57 SEX: M ATTEND: Flkao Elias AUTHOR: Hugo Harrington APRN * ALL edits or amendments must be made on the electronic/computer document * Hugo Harrington 10/24/22 1045:SubjectiveChief complaint:Impaired mobility and self careHistory of present illness:Seen with PT. States therapy is ok. States his rib pain continues to be an issue, but his headaches are doing betterwith the Fioricet. Objective GeneralVS:Vital Signs: Date Time Temp Pulse Resp B/P B/P Pulse O2 O2 Flow FiO2 Mean Ox Delivery Rate 10/24 0724 97.7 92 18 127/72 90.2 93 10/23 1925 97.7 95 18 151/83 105.7 97 Room air PATIENT WEIGHT: Weight (lb): 206Weight (oz): 2.12Weight (kg): 93.500 Physical ExamPsych: dysthmic mood, normal affectHEENT: anicteric, mucosal membranes moistNeck: supple, Right CEA incisionNeuro/RN MATERNITY: sensory deficit (left face and LUE), alert, oriented X 3 ResultsFindings/Data:Laboratory Tests: 10/24 1601 1138 Chemistry POC Glucose (70 - 119 MG/DL) 238 H 215 H 286 H 220 H Diagnosis, Assessment PlanProblem List/A P: 1. Ischemic stroke 2. Left hemiparesis 3. Gait abnormality 4. Dysphagia 5. Headache 6. Carotid stenosis 7. History of left below knee amputation 8. Nonhealing surgical wound 9. Contusion of rib 10. Diabetes 11. Agitation 12. HTN (hypertension) Free Text A P:Rehab Assessment and Plan: PT: for bed mobility, transfer training, gait training with AD, balance training, endurance improvement, LE strengthening, ROM improvementOT: for ADL and transfer trainingST: for cognitive and swallow evaluation with treatment as appropriatePrecautions: pain, left hemiparesis, Left BKA Acute right ischemic stroke with left side hemiparesis: Seen in acute care by Neurology. Aspirin. Plavix. Zetia. Dysphagia: SLPHas decreased sensation on left side of face and feels like he is choking at times. Persistent Headache. Discussed with Dr Hammond, Neurologist. Pt had received 1x dose of Toradol w/ compazine and Benadryl on 10/05 without good effect. Current plan is to continue to titrate up pt's Gabapentin. Increased it to 400mg TID today. Concern for daytime somnelence. 10/17: Increase Gabapentin to 600mg TID. Discussed with nursing to watch for somnelence.10/21: Hospitalist started pt on PRN Fioricet. Decreased Gabapentin to 400mg TID.10/24: Improved with occasional headache. Able to sleep. Carotid stenosis. S/p Right CEA by Dr Kern. Pt to follow up with Dr Kern on discharge. Has an appt, but that appt may need to be moved if pt still in Rehab. Hx Left BKA with open area to incision: hat cutter consulted.Completed IVP Ceftriaxone on 10/11. 10/18: Wound culture positive for MRSA. Discussed with Dr De La Garza. XR of Tib-fib did not reveal an abscess or concern for gangrene. No antibiotic treatment at this time as pt's WBC are normal, VSS and no pain to area upon deeppalpation.10/22: ID recommends pt see a vascular surgeon as an outpatient. Pain: [facility] PRN. Tylenol prn. Flexeril PRN. Lidoderm patch to left ribs - Per pt, when he fell at home on 10/04, his left side fell on the handlebar of his scooter. CT of the chest and xrays of the chest did not reveal any fractures.10/16: discontinued [facility]. Start PO Morphine 15mg D6mlknz PRN.10/22: Complained of excessive pain to left side. EKG WNL. Trops WNL. Diabetes: A1c was 10.9 on 10/06/22. NPH BID. SSI Humalog PRN.10/18: NPH dosage increased on 10/16. Blood sugars improved.10/24: Pt noncompliant with diet. NPH dosage increased again for Blood sugars >200. Agitation: Seroquel10/18: Will decrease Seroquel as Gabapentin has been increased and pt is sleepy today.10/23: Seroquel increased back to 50mg BID. This is pt's home dose. PRN Xanax. HTN: Metoprolol. clonidine PRN. Constipation: PRN bowel medsSenna S 1 tab BID. DVT prophy: Heparin Medical management per IM client relationship consultant, appreciate management. Dispo: Anticipated discharge date of 10/25. Rehab attestation:Face to face exam completed. Treatment plan discussed with patient. Meets continued stay criteria. Agree with interdisciplinary treatment plan. Flako Elias 10/24/22 1114:Attestations Physician AttestationAgree w/findings plan:I have personally interviewed and examined the patient. All charts, labs, and imaging studies were reviewed. I agree with the PA/ETHICS INSTRUCTOR's findings, exam, and plan. [facility] site checked at 1049 at 1114 RPT #:[id number] OF REPORTPRProgress [id number]:45:[id number] Available for patient [id number]:49:[address] [facility] 2022-10-23 19:26:00 [id number] 6Wrp [id number]+[id number]/[id number] 9:26:00 [facility] NoteREPORT#:[id number] REPORT STATUS: SignedDATE:10/23/22 TIME: 1925 PATIENT: BRIGHT SALAZAR UNIT #: [id number]#: [id number] [facility] AGE: 57 SEX: M ATTEND: Flako Elias MDADM AUTHOR: Hugo Harrington APRN * ALL edits or amendments must be made on the electronic/computer document * Hugo Harrington 10/23/221925:SubjectiveChief complaint:Impaired mobility and self careHistory of present illness:Resting comfortably. Breathing ok. Objective Physical ExamPsych: dysthmic mood, normal affectHEENT: anicteric, mucosal membranes moistNeck: supple, Right CEA incisionNeuro/RN MATERNITY: sensory deficit (left face and LUE), alert, oriented X 3 ResultsFindings/Data:Laboratory Tests: 10/23 10/23 10/23 10/23 10/22 1601 1138 0737 0325 2146 Chemistry POC Glucose (70 - 119 MG/DL) 286 H 220 H 210 H 104 Hematology WBC (4.1 - 12.1 K/mm3) 10.0 RBC (3.8 - 5.5 M/mm3) 4.75 Hgb (10.6 - 15.8 G/DL) 13.4 Hct (31.8 - 47.4 %) 40.5 MCV (80.1 - 101.1 fL) 85.3 MCH (25.3 - 35.3 pg) 28.2 MCHC (32.7 - 35.1 G/DL) 33.1 RDW (12.2 - 16.4 %) 13.4 Plt Count (155 - 337 K/mm3) 305 MPV (7.6 - 10.4 fL) 10.0 Gran % (37.8 - 82.6 %) 64.4 Lymph % (Auto) (14.1 - 45.4 %) 22.1 Williams % (Auto) (2.5 - 11.7 %) 8.9 Eos % (Auto) (0.0 - 6.2 %) 3.2 Baso % (Auto) (0.0 - 2.6 %) 0.8 Gran # (2.0 - 13.7 k/mm3) 6.47 Lymph # (Auto) (0.6 - 3.8 K/mm3) 2.22 Williams # (Auto) (0.11 - 0.59 K/mm3) 0.89 H Eos # (Auto) (0.0 - 0.4 K/mm3) 0.32 Baso # (Auto) (0.0 - 0.1 K/mm3) 0.08 Immature Gran % (0.0 - 2.0 %) 0.6 Nucleated RBC % (0.0 - 1.0 /100WBC%) 0.0 Nucleated RBCs # (0.00 - 0.05 K/mm3) 0.00 Diagnosis, Assessment PlanProblem List/A P: 1. Ischemic stroke 2. Left hemiparesis 3. Gait abnormality 4. Dysphagia 5. Headache 6. Carotid stenosis 7. History of left below knee amputation 8. Nonhealing surgical wound 9. Contusion of rib 10. Diabetes 11. Agitation 12. HTN (hypertension) Free Text A P:Rehab Assessment and Plan: PT: for bed mobility, transfer training, gait training with AD, balance training, endurance improvement, LE strengthening, ROM improvementOT: for ADL and transfer trainingST: for cognitive and swallow evaluation with treatment as appropriatePrecautions: pain, left hemiparesis, Left BKABed rolling, Sit to supine to sit: Mod I. Sit to stand: Set-up with knee scooter. Bed to/from wc: Set-up with stand pivot technique. Car transfer simulation: Set-up at wc level. WC propulsion: 150 ft at Mod I, using BUE. Gait: 250 ft, at SBA, using knee scooter. VC to slow down. Gait on unlevel surface (10 ft): CGA with knee scooter.Ind/Mod I for all ADLs. MILD cog deficits, involving higher level processing and thought organization. Deficits are not consistent, fluctuate within sessions. Acute right ischemic stroke with left side hemiparesis: Seen in acute care by Neurology. Aspirin. Plavix. Zetia. Dysphagia: SLPHas decreased sensation on left side of face and feels like he is choking at times. Persistent Headache. Discussed with Dr Hammond, Neurologist. Pt had received 1x dose of Toradol w/ compazine and Benadryl on 10/05 without good effect. Current plan is to continue to titrate up pt's Gabapentin. Increased it to 400mg TID today. Concern for daytime somnelence. 10/17: Increase Gabapentin to 600mg TID. Discussed with nursing to watch for somnelence.10/21: Hospitalist started pt on PRN Fioricet. Decreased Gabapentin to 400mg TID. Carotid stenosis. S/p Right CEA by Dr Kern. Pt to follow up with Dr Kern on discharge. Has an appt, but that appt may need to be moved if pt still in Rehab. Hx Left BKA with open area to incision: hat cutter consulted.Completed IVP Ceftriaxone on 10/11. 10/18: Wound culture positive for MRSA. Discussed with Dr De La Garza. XR of Tib-fib did not reveal an abscess or concern for gangrene. No antibiotic treatment at this time as pt's WBC are normal, VSS and no pain to area upon deeppalpation.10/22: ID recommends pt see a vascular surgeon as an outpatient. Pain: [facility] PRN. Tylenol prn. Flexeril PRN. Lidoderm patch to left ribs - Per pt, when he fell at home on 10/04, his left side fell on the handlebar of his scooter. CT of the chest and xrays of the chest did not reveal any fractures.10/16: discontinued [facility]. Start PO Morphine 15mg W6iylye PRN.10/22: Complained of excessive pain to left side. EKG WNL. Trops WNL. Diabetes: A1c was 10.9 on 10/06/22. NPH BID. SSI Humalog PRN.10/18: NPH dosage increased on 10/16. Blood sugars improved. Agitation: Seroquel10/18: Will decrease Seroquel as Gabapentin has been increased and pt is sleepy today.10/23: Seroquel increased back to 50mg BID. This is pt's home dose. PRN Xanax. HTN: Metoprolol. clonidine PRN. Constipation: PRN bowel medsSenna S 1 tab BID. DVT prophy: Heparin Medical management per IM client relationship consultant, appreciate management. Dispo: Anticipated discharge date of 10/24. Rehab attestation:Face to face exam completed. Treatment plan discussed with patient. Meets continued stay criteria. Agree with interdisciplinary treatment plan. Flako Elias 10/23/222019:Attestations Physician AttestationAgree w/findings plan:I have personally interviewed and examined the patient. All charts, labs, and imaging studies were reviewed. I agree with the PA/ETHICS INSTRUCTOR's findings, exam, and plan. at 1929 at 2020 [facility] #:[id number] OF REPORTPRProgress [id number]:26:[id number] Available for patient [id number]:29:45 [facility] 2022-10-23 17:51:00 [id number] 448M [id number]654-11-53V7 7:51:00 [facility]Hospitalist Progress NoteREPORT#:[id number] REPORT STATUS: SignedDATE:10/23/22 TIME: 175 PATIENT: BRIGHT SALAZAR UNIT #: [id number]#: [id number] [facility] AGE: 57 SEX: M ATTEND: Flako Elias [facility] AUTHOR: Angel Haro DO * ALL edits or amendments must be made on the electronic/computer document * Subjective Free Text Subj NotesFree Text Subj Notes:no acute overnight events. Objective GeneralVS/I O:Vital Signs: Date Time Temp Pulse Resp B/P B/P Pulse O2 O2 Flow FiO2 Mean Ox Delivery Rate 10/23 0733 97.9 90 18 154/84 106.9 95 10/22 2040 97.7 88 16 165/87 113.3 96 Room air 24 hour I O ending at 0700: 10/23 0700 10/22 1900 Intake Total 720 Output Total Balance 720 Intake, Oral 720 Supplement Number 1 Bowel Movements Number 0 Incontinent Voids Number Voids 1 PATIENT WEIGHT: Weight (lb): 206Weight (oz): 2.12Weight (kg): 93.500 Medications:Active Meds + DC'd Last 24 HrsQuetiapine Fumarate (SEROqueL) 50 MG BID PO Alprazolam (XANAX) 0.5 MG Q6H PRN PRN PO Gabapentin (NEURONTIN) 400 MG TID PO Insulin Human NPH (HumuLIN N) 30 UNIT BID MEALS SUBQ Acetaminophen/Butalbital/Caffeine (FIORICET) 2 UDTAB Q4H PRN PRN PO Simethicone (MYLICON) 80 MG Q6H PRN PRN PO Cadexomer Iodine (IODOSORB 0.9% 10 GM GEL) 1 APPLIC DAILY PRN PRN TOPICAL Morphine Sulfate (MSIR) 15 MG Q6H PRN PRN PO Senna/Docusate Sodium (SENOKOT-S) 1 UDTAB BID PO Lidocaine (LIDODERM PATCH) 1 PATCH DAILY TRANSDERM Aspirin (ASPIRIN) 81 MG DAILY PO Clopidogrel Bisulfate (PLAVIX) 75 MG DAILY PO Metoprolol Tartrate (LOPRESSOR) 50 MG DAILY PO Heparin Sodium (HEPARIN) 5,000 UNIT Q8HR SUBQ Ezetimibe (ZETIA) 10 MG BEDTIME PO Acetaminophen (TYLENOL) 650 MG Q4H PRN PRN PO Bisacodyl (DULCOLAX) 5 MG Q12H PRN PRN PO Bisacodyl (DULCOLAX) 10 MG Q48HR PRN PRN RECTAL Clonidine HCl (CATAPRES) 0.1 MG Q8H PRN PRN PO Cyclobenzaprine HCl (FLEXERIL) 5 MG TID PRN PRN PO Dextrose/Water (DEXTROSE 50%-WATER) 25 ML ASDIR PRN IV (CKD) Glucagon (GLUCAGON) 1 MG ASDIR PRN IM Glucose Polymer (GLUTOSE) 15 GM ASDIR PRN PO Insulin Human Lispro (HUMALOG) See Admin Criteria ASDIR PRN SUBQ Ondansetron HCl (ZOFRAN ODT) 4 MG Q8H PRN PRN PO Potassium Chloride (K-DUR) 40 MEQ ASDIR PRN PO Physical ExamHead/Eyes: atraumatic, EOMI, normocephalic, PERRLNeck: S/P CEA on right neck surgical incision on right side neckCardiovascular: normal capillary refill, normal heart sounds, regular rate rhythmRespiratory: clear to auscultation, no distressAbdomen: non-tender, normal bowel sounds, soft, no distentionExtremities: no edemaNeuro/RN MATERNITY: focal weakness (right side), alert, oriented X 3, normal speech, no sensory deficitsPsychiatry: normal affect, normal judgment/insight, normal mood ResultsFindings/Data:Laboratory Tests 10/23 10/23 10/23 10/22 1601 1138 0737 2146 Chemistry POC Glucose (70 - 119 MG/DL) 286 H 220 H 210 H 104 Laboratory Tests 10/23 0325 Hematology WBC (4.1 - 12.1 K/mm3) 10.0 RBC (3.8 - 5.5 M/mm3) 4.75 Hgb (10.6 - 15.8 G/DL) 13.4 Hct (31.8 - 47.4 %) 40.5 MCV (80.1 - 101.1 fL) 85.3 MCH (25.3 - 35.3 pg) 28.2 MCHC (32.7 - 35.1 G/DL) 33.1 RDW (12.2 - 16.4 %) 13.4 Plt Count (155 - 337 K/mm3) 305 MPV (7.6 - 10.4 fL) 10.0 Gran % (37.8 - 82.6 %) 64.4 Lymph % (Auto) (14.1 - 45.4 %) 22.1 Williams % (Auto) (2.5 - 11.7 %) 8.9 Eos % (Auto) (0.0 - 6.2 %) 3.2 Baso % (Auto) (0.0 - 2.6 %) 0.8 Gran # (2.0 - 13.7 k/mm3) 6.47 Lymph # (Auto) (0.6 - 3.8 K/mm3) 2.22 Williams # (Auto) (0.11 - 0.59 K/mm3) 0.89 H Eos # (Auto) (0.0 - 0.4 K/mm3) 0.32 Baso # (Auto) (0.0 - 0.1 K/mm3) 0.08 Immature Gran % (0.0 - 2.0 %) 0.6 Nucleated RBC % (0.0 - 1.0 /100WBC%) 0.0 Nucleated RBCs # (0.00 - 0.05 K/mm3) 0.00 Diagnosis, Assessment Plan Free Text DxA P NotesFree text DxA P notes:Assessment and plan: 1. Acute ischemic CVA on the right side PT and OT Patient is on aspirin, Plavix, Zetia Follow-up with neurology as outpatient setting 2. Recent history of carotid stenosis Status post right CEA Continue aspirin, Plavix 3. History of left below-knee amputation with small wound Patient recently finished the antibiotic Rocephin Wound care on board New culture from left BKA /stump is positive for MRSA Consult ID physician consulted and recommended at this point NO antibiotic needed. Follow-up with final culture and sensitivity 4. Diabetes mellitus A1c is 10.9 Accu-Chek Sliding scale insulin NPH 5. History of cardiovascular disease Continue home medication metoprolol, 6. DVT prophylaxis Heparin Plan Cont with rehab Active Meds + DC'd Last 24 Hrs Quetiapine Fumarate (SEROqueL) 25 MG BID PO Gabapentin (NEURONTIN) 600 MG TID PO Aspirin (ASPIRIN) 81 MG DAILY PO Clopidogrel Bisulfate (PLAVIX) 75 MG DAILY PO Metoprolol Tartrate (LOPRESSOR) 50 MG DAILY PO Heparin Sodium (HEPARIN) 5,000 UNIT Q8HR SUBQ MIPS Advance Care Planning [X] I confirmed that the patient's Advance Care Plan is present, code status is documented, or surrogate decision maker is listed in the patient s medical record. [SATISFIES MIPS PERFORMANCE] If Yes, Stop Here[] The patient s Advance Care plan is not present because: (select) [MIPS PERFORMANCE EXCEPTION/EXCLUSION][] I confirmed today that the patient does not wish or was not able to name a surrogate decision maker or provide an Advance Care Plan.[] Hospice care is currently being provided or has been provided this calendar year [] I did NOT confirm today the presence of an Advance Care Plan or surrogate decision maker documented within the patient's medical record. [DOES NOT SATISFYMIPS PERFORMANCE] MIPS Heart Fail EF/ACEi/BB [] The patient has a history of heart transplant or Left Ventricular Assist Device (LVAD). If yes, Stop Here. (MIPS PERFORMANCE EXCLUSION)[] The patient has current or prior documentation of left ventricular ejection fraction (LVEF) less than or equal to 40%, or moderate or severely depressed left ventricular systolic function. Answer both: (SATISFIES MIPS PERFORMANCE)[] The patient was prescribed or already taking an Angiotensin-Converting Enzyme(MIGUEL A) Inhibitor, or Angiotensin Receptor Marcell (ARB). [] The patient was prescribed or already taking a beta-marcell. If Yes to Both, Stop Here[] Patient not prescribed/taking: (MIPS PERFORMANCE EXCEPTION/EXCLUSION)[] MIGUEL A or ARB for medical/patient reason(s) including [] (ex. allergy, intolerance, contraindication) [] Beta-marcell for medical/patient reason(s) including [] (ex. allergy, intolerance, contraindication) [] Patient not prescribed/taking: (DOES NOT SATISFY MIPS PERFORMANCE)[] MIGUEL A or ARB, no reason given [] Beta-marcell, no reason given MIPS Med Reconciliation[X] I have utilized all available immediate resources to obtain, update, or review the patient s current medications (including all prescriptions, xyrw-xvn-oyyefdw products, herbals, cannabis/cannabidiol products, and vitamin/mineral/dietary (nutritional) supplements). [SATISFIES MIPS PERFORMANCE] If Yes, Stop Here[] The patient is not eligible for medication reconciliation; the patient is in an emergent medical situation where delaying treatment would jeopardize the patient s health. [MIPS PERFORMANCE EXCEPTION/EXCLUSION][] I did NOT confirm, update or review the patient's current list of medicationstoday. [DOES NOT SATISFY MIPS PERFORMANCE] at 17[address] [facility] #:[id number] OF REPORTPRProgress [id number]:51:[id number] Available for patient fysmBCCXNGWZVVBRTS2362-14-42Z90:52:[address] [facility] 2022-10-22 22:33:00 [id number]/[id number] LOcL s4h6u/mKtlvxBiV4IiaNfzCoAa6uiZZc9669-12-06K4 2:33:00 [facility] CenterHospital[facility] Progress NoteREPORT#:[id number] REPORT STATUS: SignedDATE:10/22/22 TIME: 2232 PATIENT: BRIGHT SALAZAR UNIT #: [id number]#: [id number] [address] AGE: 57 SEX: M ATTEND: Flako Elias [facility] AUTHOR: Angel Haro DO * ALL edits or amendments must be made on the electronic/computer document * Subjective Free Text Subj NotesFree Text Subj Notes:patient is emotional. no acute overnight events. Objective GeneralVS/I O:Vital Signs: Date Time Temp Pulse Resp B/P B/P Pulse O2 O2 Flow FiO2 Mean Ox Delivery Rate 10/220 97.7 88 16 165/87 113.3 96 Room air 10/22 0843 97.9 87 149/82 104.2 96 10/22 0935 96 160/93 115.4 100 10/22 0707 97.9 79 17 148/77 100.7 94 10/22 0138 98 Room air 24 hour I O ending at 0700: 10/22 0700 10/21 1900 Intake Total 1440 Output Total Balance 1440 Intake, Oral 1440 Supplement Number 0 Incontinent Voids Number Voids 1 PATIENT WEIGHT: Weight (lb): 206Weight (oz): 2.12Weight (kg): 93.500 Medications:Active Meds + DC'd Last 24 HrsQuetiapine Fumarate (SEROqueL) 50 MG BID PO Alprazolam (XANAX) 0.5 MG Q6H PRN PRN PO Alprazolam (XANAX) 0.5 MG NOW ONE PO (DC) Gabapentin (NEURONTIN) 400 MG TID PO Insulin Human NPH (HumuLIN N) 30 UNIT BID MEALS SUBQ Acetaminophen/Butalbital/Caffeine (FIORICET) 2 UDTAB Q4H PRN PRN PO Simethicone (MYLICON) 80 MG Q6H PRN PRN PO Quetiapine Fumarate (SEROqueL) 25 MG BID PO (DC) Cadexomer Iodine (IODOSORB 0.9% 10 GM GEL) 1 APPLIC DAILY PRN PRN TOPICAL Morphine Sulfate (MSIR) 15 MG Q6H PRN PRN PO Senna/Docusate Sodium (SENOKOT-S) 1 UDTAB BID PO Lidocaine (LIDODERM PATCH) 1 PATCH DAILY TRANSDERM Aspirin (ASPIRIN) 81 MG DAILY PO Clopidogrel Bisulfate (PLAVIX) 75 MG DAILY PO Metoprolol Tartrate (LOPRESSOR) 50 MG DAILY PO Heparin Sodium (HEPARIN) 5,000 UNIT Q8HR SUBQ Ezetimibe (ZETIA) 10 MG BEDTIME PO Acetaminophen (TYLENOL) 650 MG Q4H PRN PRN PO Bisacodyl (DULCOLAX) 5 MG Q12H PRN PRN PO Bisacodyl (DULCOLAX) 10 MG Q48HR PRN PRN RECTAL Clonidine HCl (CATAPRES) 0.1 MG Q8H PRN PRN PO Cyclobenzaprine HCl (FLEXERIL) 5 MG TID PRN PRN PO Dextrose/Water (DEXTROSE 50%-WATER) 25 ML ASDIR PRN IV (CKD) Glucagon (GLUCAGON) 1 MG ASDIR PRN IM Glucose Polymer (GLUTOSE) 15 GM ASDIR PRN PO Insulin Human Lispro (HUMALOG) See Admin Criteria ASDIR PRN SUBQ Ondansetron HCl (ZOFRAN ODT) 4 MG Q8H PRN PRN PO Potassium Chloride (K-DUR) 40 MEQ ASDIR PRN PO Physical ExamHead/Eyes: atraumatic, EOMI, normocephalic, PERRLNeck: S/P CEA on right neck surgical incision on right side neckCardiovascular: normal capillary refill, normal heart sounds, regular rate rhythmRespiratory: clear to auscultation, no distressAbdomen: non-tender, normal bowel sounds, soft, no distentionExtremities: no edemaNeuro/RN MATERNITY: focal weakness (right side), alert, oriented X 3, normal speech, no sensory deficitsPsychiatry: normal affect, normal judgment/insight, normal mood ResultsFindings/Data:Laboratory Tests 10/22 10/22 10/22 10/22 10/22 2146 1618 1121 1054 0619 Chemistry POC Glucose (70 - 119 MG/DL) 104 193 H 185 H 135 H Troponin I High Sens (0 - 45 ng/L) 10 Diagnosis, Assessment Plan Free Text DxA P NotesFree text DxA P notes:Assessment and plan: 1. Acute ischemic CVA on the right side PT and OT Patient is on aspirin, Plavix, Zetia Follow-up with neurology as outpatient setting 2. Recent history of carotid stenosis Status post right CEA Continue aspirin, Plavix 3. History of left below-knee amputation with small wound Patient recently finished the antibiotic Rocephin Wound care on board New culture from left BKA /stump is positive for MRSA Consult ID physician consulted and recommended at this point NO antibiotic needed. Follow-up with final culture and sensitivity 4. Diabetes mellitus A1c is 10.9 Accu-Chek Sliding scale insulin NPH 5. History of cardiovascular disease Continue home medication metoprolol, 6. DVT prophylaxis Heparin Plan Cont with rehab Active Meds + DC'd Last 24 Hrs Quetiapine Fumarate (SEROqueL) 25 MG BID PO Gabapentin (NEURONTIN) 600 MG TID PO Aspirin (ASPIRIN) 81 MG DAILY PO Clopidogrel Bisulfate (PLAVIX) 75 MG DAILY PO Metoprolol Tartrate (LOPRESSOR) 50 MG DAILY PO Heparin Sodium (HEPARIN) 5,000 UNIT Q8HR SUBQ MIPS Advance Care Planning [X] I confirmed that the patient's Advance Care Plan is present, code status is documented, or surrogate decision maker is listed in the patient s medical record. [SATISFIES MIPS PERFORMANCE] If Yes, Stop Here[] The patient s Advance Care plan is not present because: (select) [MIPS PERFORMANCE EXCEPTION/EXCLUSION][] I confirmed today that the patient does not wish or was not able to name a surrogate decision maker or provide an Advance Care Plan.[] Hospice care is currently being provided or has been provided this calendar year [] I did NOT confirm today the presence of an Advance Care Plan or surrogate decision maker documented within the patient's medical record. [DOES NOT SATISFYMIPS PERFORMANCE] MIPS Heart Fail EF/ACEi/BB [] The patient has a history of heart transplant or Left Ventricular Assist Device (LVAD). If yes, Stop Here. (MIPS PERFORMANCE EXCLUSION)[] The patient has current or prior documentation of left ventricular ejection fraction (LVEF) less than or equal to 40%, or moderate or severely depressed left ventricular systolic function. Answer both: (SATISFIES MIPS PERFORMANCE)[] The patient was prescribed or already taking an Angiotensin-Converting Enzyme(MIGUEL A) Inhibitor, or Angiotensin Receptor Marcell (ARB). [] The patient was prescribed or already taking a beta-marcell. If Yes to Both, Stop Here[] Patient not prescribed/taking: (MIPS PERFORMANCE EXCEPTION/EXCLUSION)[] MIGUEL A or ARB for medical/patient reason(s) including [] (ex. allergy, intolerance, contraindication) [] Beta-marcell for medical/patient reason(s) including [] (ex. allergy, intolerance, contraindication) [] Patient not prescribed/taking: (DOES NOT SATISFY MIPS PERFORMANCE)[] MIGUEL A or ARB, no reason given [] Beta-marcell, no reason given MIPS Med Reconciliation[X] I have utilized all available immediate resources to obtain, update, or review the patient s current medications (including all prescriptions, atoo-hjl-uzneuyf products, herbals, cannabis/cannabidiol products, and vitamin/mineral/dietary (nutritional) supplements). [SATISFIES MIPS PERFORMANCE] If Yes, Stop Here[] The patient is not eligible for medication reconciliation; the patient is in an emergent medical situation where delaying treatment would jeopardize the patient s health. [MIPS PERFORMANCE EXCEPTION/EXCLUSION][] I did NOT confirm, update or review the patient's current list of medicationstoday. [DOES NOT SATISFY MIPS PERFORMANCE] at [address] [facility] #:[id number] OF REPORTPRProgress [id number]:33:[id number] Available for patient czlxRRENKEHSYVEEIL4655-11-68P36:34:[address] [facility] 2022-10-22 13:14:00 [id number] zVvj 2+Td896gqmPTiAlJHxadR7YevYkBSrgG0717-79-39G8 3:14:00 [facility] CenterRehab Team ConferenceREPORT#:[id number] REPORT STATUS: SignedDATE:10/22/22 TIME: 1314 PATIENT: BRIGHT SALAZAR UNIT #: [id number]#: [id number] [facility] AGE: 57 SEX: M ATTEND: Flako Elias AUTHOR: Flako Elias MD * ALL edits or amendments must be made on the electronic/computer document * Rehabilitation Team Conference Weekly Team ConferenceTeam conf information:Date of conference: 10/22/22Conference type: InterimConference scribe: Arelis Phipps PT INTERDISCIPLINARY TEAM MEETING PARTICIPANTS: TITLE NAME MD DYLAN Moreno, DYLAN PT Charlie Johnson, PT OT Theresa Caba OT CM/ARCHIE Perera SLP [facility] Arelis Phipps, PT Staff (8) Ayala Anton, PT Staff (9) NO ATTENDEE OTHER NAME CREDENTIALS 1 2 FUNCTIONAL CHANGE: TYPE ADMISSION TOTAL INTERIM TOTAL CHANGE Self care 30 34 4 Transfer 26 38 12 Mobility 8 24 16 Wheelchair distance: 150 ft. Mobility description: Pt is modified independent with wc propulsion. Pt requiredSBA for gait training with knee scooter, VC to slow down. No falls noted. BOWEL AND BLADDER STATUS: Bowel continence admission rating: Bladder continence admission rating: Always continentBowel and bladder team conference update: CONTINENT B/B INTERDISCIPLINARY TEAM UPDATES: [place] team conference update: A OX4, DM-MEDICATION CHANGED TO 30 UNITS OF HUMULIN,TYLENOL PRN FOR PAIN, INCISION TO LEFT ANTERIOR KNEE AND ANTERIOR NECK-INTACT, CONTACT ISOLATION FOR MRSA/WOUND CARE FOR LEFT BKA STUMP, 10/17-XRAY TIB/FIB-SMALL AREA OF LINEAL AIR WITH DISTAL STUMP, MAYBE RELATED TO DEEP WOUND OR ULCER. FIORICET FOR HEADACHES, 10/19 ABDOMINAL XRAY-NEG, TURNING SCHEDULE.PT team conference update: Bed rolling: Mod I. Sit to laying in bed: Mod I. Laying in bed to sit: Mod I. Sit to stand: Set-up with knee scooter. Bed to/from wc: Set-up with stand pivot technique. Car transfer simulation: Set-up at wc level. WC propulsion: 150 ft at Mod I, using BUE. Gait: 250 ft, at SBA, using knee scooter. VC to slow down. Gait on unlevel surface (10 ft): CGA with knee scooter. Stairs: Not applicable. Picking up objects from floor (standing):Set-up with knee scooter, and adaptive mixer operator. Pt is demonstrating progress with inpatient PT. Pt has wc, and knee scooter at home. Home health PT recommended. OT team conference update: EATING-IND ORAL-MOD I BATHING-MOD I UBD-IND LBD-IND TOILETING-MOD I FW-MOD IST team conference update: MILD cog deficits, involving higher level processing and thought organization. Deficits are not consistent, fluctuate within sessions. CM or SW team conference update: [facility], NO STEPS TO ENTER. WALK IN SHOWER WITH GRAB BAR. DME-RW, WC, SHOWER CHAIR, KNEE SCOOTEROther discipline update 1: Other discipline update 2: Other discipline update 3: REHAB DC GOALS: Patient's identified discharge goal: TO GET STRONG AND GO BACK TO WORK Eating discharge goal: Independent (6) Shower/bathe self discharge goal: Independent (6) Upper body dressing discharge goal: Independent (6) Lower body dressing discharge goal: Independent (6) Chair/bed to chair transfer discharge goal: Independent (6) Transfer on/off toilet or commode discharge goal: Independent (6) Walking 50 feet with two turns discharge goal: Supervise/touch asst (4) Walking 150 feet discharge goal: Supervise/touch asst (4) Four steps discharge goal: Not applicable Twelve steps discharge goal: Not applicable [place] 150 feet discharge goal: Independent (6) Goal 1 - Bowel function: PATIENT WILL MAINTAIN REGULAR BOWEL FUNCTION UNTIL DISCHARGEGoal 2 - Bladder function: PATIENT WILL MAINTAIN NORMAL BLADDER FUNCTION UNTIL DISCHARGENursing goal 3: PATIENT WILL IMPROVE IN STRENGHT AND MOBILITY BEFORE DISCHARGENursing goal 4: PATIENT WILL BE MONITORED FOR FALL AND SAFETY THROUGHOUT HOSPITALIZATIONNursing goal 5: PATIENT PAIN WILL BE MANAGED < 3 THROUGHOUT HOSPITALIZATION DISCHARGE PLANNING: Barriers to discharge: CaregiverStrategies for D/C barriers: Home evaluationEstimated length of stay in days: 14Anticipated discharge date: 10/27/22Discharge date adjustment comment: SNF VS HOME HEP Identified financial and/or community resource needs: SNF VS HOME WITH HEP Family/Caregiver training days: NA PER SNF REFERRAL [place] day (DATE): 10/26/22[facility] facilityAnticipated services upon discharge: Physical therapy, Nursing, Occupational therapy, Nurses aide, plant production worker, Speech therapyAnticipated discharge equipment: WC, KNEE SCOOTER, SHOWR BENCH Impairment group: stroke NOTE Document ONLY ONE Impairment Group Stroke: left body (right brain)Etiologic diagnosis:Acute right ischemic strokeReview of comorbidities:Current surgery date and type: 10/08/22: Right carotid endarterectomy with bovine pericardial patch angioplasty. Active comorbid conditions: L BKA stump wound, Diabetic hyperglycemia, Hypertension, CAD, Tobacco dependence Past medical and surgical history: DM, HTN, L BKA, CAD, HLD, HTN, GERD, CABG, Tobacco dependence Had major surgery within 100 days of admission: Yes Risk for medical/clinical complications: Anemia, Arrhythmia, BP fluctuation, Cardiac instability, Constipation, DVT, Depression, Electrolyte imbalance, Hypoxia, Incisional dehiscence, Infection, Injury d/t falls, Blood sugar fluctuation, Nutritional compromise, Pain, Skin breakdown MD Review/RecommendationsAttestation:This interdisciplinary team conference was led by me and I concur with all decisions made during the team conference and revisions to the individualized overall plan of care. IRF cont stay criteriamet at [address] [facility] #:[id number] OF REPORTCLClinical [id number]:14:00B.[id number] Available for patient hnvbOJBFNNANDIVMFD7511-52-03W10:15:29 [facility] 10:38:00 [id number]+Rgz1s8x oA6w BJemcOqUnpezzIwo4SCBlJgiMFl/mc1j6116-07-78G8 0:38:641092-[address] [place] [address] PATIENT NAME: BRIGHT SALAZAR ADMIT DATE: 10/14/22ACCOUNT NO: [id number] ROOM NO: [facility] AGE: 57 REPORT TYPE: PROGRESS NOTE SEX: M ADMITTING PHYSICIAN:Flako Elias MD ATTENDING PHYSICIAN:Flako Elias MD DATE: 10/22/2022 INFECTIOUS DISEASE PROGRESS NOTE TIME: 1037 hours. Chondra from the rehab facility notified me that patient is complaining of some chest pain and he is currently getting a work up with drawing a troponin and doing an EKG. SUBJECTIVE: The patient is complaining of pain in his chest pain. Otherwise, he has no new issues. There are two nurses in the room at this time. OBJECTIVE:VITAL SIGNS: Noted.GENERAL: He is lying quietly in bed, nontoxic.EXTREMITIES: Examination of the left BKA site reveals a scab over the smallopen wound, which is improved. There is no drainage or discharge. There is noerythema, there is no flatulence, there is or induration and is nontender topalpation. LABORATORY DATA: The patient has no new cultures. Previous culture of his leftBKA site grew MRSA. ASSESSMENT:1. Clinically stable.2. Culture of the left BKA site with MRSA but there are no signs of active infetion at this time.3. Chesrt pain, work up by the primary care team. RECOMMENDATIONS: This patiemt is stable from an infectious disease standpoint. I recommend no antimicrobial therapy and do recommend good wound care to the left BKA site. He is cleared from my standpoint for disposition. Dictated By: Jacquie De La Garza MD Date Dictated: 10/22/2022 10:38:13Date Transcribed: 10/22/2022 10:47:16CC/CORTEZ/JOSH/Kumar #: [id number] ID: [id number] PATIENT NAME: BRIGHT SALAZAR Authenticated and Edited by Jacquie De La Garza MD On 10/22/22 2:58:01 PM at 0259 PATIENT NAME: BRIGHT SALAZAR [id number]:47:00B.[id number] vailable for patient saxnYJTCRSCYWEKUUU4953-81-65P01:00:[address] [facility] 2022-10-22 09:46:00 [id number]/ uFrh g4HEDUkkyq4r20b/sQs/RcqrryuWENpz4684-29-11X0 9:46:976413-[address] [address] PATIENT NAME: BRIGHT SALAZAR ADMIT DATE: 10/14/22ACCOUNT NO: [id number] ROOM NO: [facility] AGE: 57 REPORT TYPE: ELECTROCARDIOGRAM SEX: M ADMITTING PHYSICIAN:Flako Elias MD ATTENDING PHYSICIAN:Flako Elias MD Order:[id number] Reason : Left side chest pain Test Date/Time Stamp:FriOct 22 2022 09:46:47Blood Pressure : / mmHGVent. Rate : 086 BPM Atrial Rate : 086 BPM P-R Int : 160 ms QRS Dur : 098 ms QT Int : 396 ms P-R-T Axes : 043 -09 072 degrees QTc Int : 473 ms Normal sinus rhythmPossible Inferior infarct , age undeterminedAbnormal ECGWhen compared with ECG of 25-JUL-2012 06:30,Borderline criteria for Inferior infarct are now presentQT has lengthenedConfirmed by RASHAD TURNER MD ([id number]) on 10/23/2022 8:49:18 PM Referred By: Self Referred Confirmed by:RASHAD TURNER MD at 2049 PATIENT NAME: BRIGHT SALAZAR .[id number] for patient ztywFCELGANHTMEHRG0903-88-35W59:49:[address] [facility] 2022-10-22 07:52:00 [id number]+cEb6CqHmUFY7 DEiH UxUZYkIONKzEi8SfNzHLvKCgiAUVKAJo5241-75-25O3 7:52:00 [facility] CenterRe[facility] Progress NoteREPORT#:[id number] REPORT STATUS: SignedDATE:10/22/22 TIME: 751 PATIENT: BRIGHT SALAZAR UNIT #: [id number]#: [id number] [facility] AGE: 57 SEX: M ATTEND: Flako Elias [facility] AUTHOR: Hugo Harrington APRN * ALL edits or amendments must be made on the electronic/computer document * Hugo Harrington 10/22/22 0752:SubjectiveChief complaint:Impaired mobility and self careHistory of present illness:Resting comfortably. Breathing ok. Objective GeneralVS:Vital Signs: Date Time Temp Pulse Resp B/P B/P Pulse O2 O2 Flow FiO2 Mean Ox Delivery Rate 10/22 0843 97.9 87 149/82 104.2 96 10/22 0935 96 160/93 115.4 100 10/22 0707 97.9 79 17 148/77 100.7 94 10/22 0138 98 Room air 10/21 192 97.9 85 13 136/75 95.3 97 PATIENT WEIGHT: Weight (lb): 206Weight (oz): 2.12Weight (kg): 93.500 Physical ExamPsych: dysthmic mood, normal affectHEENT: anicteric, mucosal membranes moistNeck: supple, Right CEA incisionNeuro/RN MATERNITY: sensory deficit (left face and LUE), alert, oriented X 3 ResultsFindings/Data:Laboratory Tests: 10/22 10/21 10/21 10/21 0619 1937 1529 1110 Chemistry POC Glucose (70 - 119 MG/DL) 135 H 171 H 198 H 182 H Diagnosis, Assessment PlanProblem List/A P: 1. Ischemic stroke 2. Left hemiparesis 3. Gait abnormality 4. Dysphagia 5. Headache 6. Carotid stenosis 7. History of left below knee amputation 8. Nonhealing surgical wound 9. Contusion of rib 10. Diabetes 11. Agitation 12. HTN (hypertension) Free Text A P:Rehab Assessment and Plan: PT: for bed mobility, transfer training, gait training with AD, balance training, endurance improvement, LE strengthening, ROM improvementOT: for ADL and transfer trainingST: for cognitive and swallow evaluation with treatment as appropriatePrecautions: pain, left hemiparesis, Left BKA Acute right ischemic stroke with left side hemiparesis: Seen in acute care by Neurology. Aspirin. Plavix. Zetia. Dysphagia: SLPHas decreased sensation on left side of face and feels like he is choking at times. Persistent Headache. Discussed with Dr Hammond, Neurologist. Pt had received 1x dose of Toradol w/ compazine and Benadryl on 10/05 without good effect. Current plan is to continue to titrate up pt's Gabapentin. Increased it to 400mg TID today. Concern for daytime somnelence. 10/17: Increase Gabapentin to 600mg TID. Discussed with nursing to watch for somnelence.10/21: Hospitalist started pt on PRN Fioricet. Decreased Gabapentin to 400mg TID. Carotid stenosis. S/p Right CEA by Dr Kern. Pt to follow up with Dr Kern on discharge. Has an appt, but that appt may need to be moved if pt still in Rehab. Hx Left BKA with open area to incision: hat cutter consulted.Completed IVP Ceftriaxone on 10/11. 10/18: Wound culture positive for MRSA. Discussed with Dr De La Garza. XR of Tib-fib did not reveal an abscess or concern for gangrene. No antibiotic treatment at this time as pt's WBC are normal, VSS and no pain to area upon deeppalpation.10/22: ID recommends pt see a vascular surgeon as an outpatient. Pain: [place] PRN. Tylenol prn. Flexeril PRN. Lidoderm patch to left ribs - Per pt, when he fell at home on 10/04, his left side fell on the handlebar of his scooter. CT of the chest and xrays of the chest did not reveal any fractures.10/16: discontinued [place]. Start PO Morphine 15mg G7ctkfy PRN.10/22: Complained of excessive pain to left side. EKG WNL. Trops WNL. Diabetes: A1c was 10.9 on 10/06/22. NPH BID. SSI Humalog PRN.10/18: NPH dosage increased on 10/16. Blood sugars improved. Agitation: Seroquel10/18: Will decrease Seroquel as Gabapentin has been increased and pt is sleepy today. HTN: Metoprolol. clonidine PRN. Constipation: PRN bowel medsSenna S 1 tab BID. DVT prophy: Heparin Medical management per IM client relationship consultant, appreciate management. Dispo: Anticipated discharge date of 10/24. Rehab attestation:Face to face exam completed. Treatment plan discussed with patient. Meets continued stay criteria. Agree with interdisciplinary treatment plan. Flako Elias 10/22/22 1315:Attestations Physician AttestationAgree w/findings plan:I have personally interviewed and examined the patient. All charts, labs, and imaging studies were reviewed. I agree with the PA/ETHICS INSTRUCTOR's findings, exam, and plan. at 1312 at 1314 RPT #:[id number] OF REPORTPRProgress [id number]:52:[id number] Available for patient dhrbGYCDNVBYCZTGBP3790-02-62A10:13:[address] [facility] 2022-10-21 13:40:00 [id number] lVRL Vd4TszRLMAuvu7Kln8yA187Tg23Dv5JE5852-63-85L2 3:40:00 [facility] ([facility])Hospitalist Progress NoteREPORT#:[id number] REPORT STATUS: SignedDATE:10/21/22 TIME: 1340 PATIENT: BRIGHT SALAZAR UNIT #: [id number]#: [id number] [facility] [birth year] AGE: 57 SEX: M [facility]END[facility] AUTHOR: Angel Haro DO * ALL edits or amendments must be made on the electronic/computer document * Subjective Free Text Subj NotesFree Text Subj Notes:no acute overnight events. Objective GeneralVS/I O:Vital Signs: Date Time Temp Pulse Resp B/P B/P Pulse O2 O2 Flow FiO2 Mean Ox Delivery Rate 10/21 0649 98.1 83 16 151/81 104.2 96 10/20 2046 88 162/79 106.7 10/21 2011 99.0 85 18 169/83 111.6 95 Room air 24 hour I O ending at 0700: 10/21 0700 10/20 1900 Intake Total Output Total 580 600 Balance -580 -600 Number 1 Bowel Movements Number 0 0 Incontinent Voids Number Voids 1 1 Output, Urine 580 600 PATIENT WEIGHT: Weight (lb): 206Weight (oz): 2.12Weight (kg): 93.500 Medications:Active Meds + DC'd Last 24 HrsGabapentin (NEURONTIN) 400 MG TID PO Insulin Human NPH (HumuLIN N) 30 UNIT BID MEALS SUBQ Acetaminophen/Butalbital/Caffeine (FIORICET) 2 UDTAB Q4H PRN PRN PO Simethicone (MYLICON) 80 MG Q6H PRN PRN PO Quetiapine Fumarate (SEROqueL) 25 MG BID PO Cadexomer Iodine (IODOSORB 0.9% 10 GM GEL) 1 APPLIC DAILY PRN PRN TOPICAL Gabapentin (NEURONTIN) 600 MG TID PO (DC) Insulin Human NPH (HumuLIN N) 25 UNIT BID MEALS SUBQ (DC) Morphine Sulfate (MSIR) 15 MG Q6H PRN PRN PO Senna/Docusate Sodium (SENOKOT-S) 1 UDTAB BID PO Lidocaine (LIDODERM PATCH) 1 PATCH DAILY TRANSDERM Aspirin (ASPIRIN) 81 MG DAILY PO Clopidogrel Bisulfate (PLAVIX) 75 MG DAILY PO Metoprolol Tartrate (LOPRESSOR) 50 MG DAILY PO Heparin Sodium (HEPARIN) 5,000 UNIT Q8HR SUBQ Ezetimibe (ZETIA) 10 MG BEDTIME PO Acetaminophen (TYLENOL) 650 MG Q4H PRN PRN PO Bisacodyl (DULCOLAX) 5 MG Q12H PRN PRN PO Bisacodyl (DULCOLAX) 10 MG Q48HR PRN PRN RECTAL Clonidine HCl (CATAPRES) 0.1 MG Q8H PRN PRN PO Cyclobenzaprine HCl (FLEXERIL) 5 MG TID PRN PRN PO Dextrose/Water (DEXTROSE 50%-WATER) 25 ML ASDIR PRN IV (CKD) Glucagon (GLUCAGON) 1 MG ASDIR PRN IM Glucose Polymer (GLUTOSE) 15 GM ASDIR PRN PO Insulin Human Lispro (HUMALOG) See Admin Criteria ASDIR PRN SUBQ Ondansetron HCl (ZOFRAN ODT) 4 MG Q8H PRN PRN PO Potassium Chloride (K-DUR) 40 MEQ ASDIR PRN PO Physical ExamHead/Eyes: atraumatic, EOMI, normocephalic, PERRLNeck: S/P CEA on right neck surgical incision on right side neckCardiovascular: normal capillary refill, normal heart sounds, regular rate rhythmRespiratory: clear to auscultation, no distressAbdomen: non-tender, normal bowel sounds, soft, no distentionExtremities: no edemaNeuro/RN MATERNITY: focal weakness (right side), alert, oriented X 3, normal speech, no sensory deficitsPsychiatry: normal affect, normal judgment/insight, normal mood ResultsFindings/Data:Laboratory Tests 10/21 10/21 10/20 10/20 1110 0518 2016 1621 Chemistry POC Glucose (70 - 119 MG/DL) 182 H 194 H 195 H 210 H Diagnosis, Assessment Plan Free Text DxA P NotesFree text DxA P notes:Assessment and plan: 1. Acute ischemic CVA on the right side PT and OT Patient is on aspirin, Plavix, Zetia Follow-up with neurology as outpatient setting 2. Recent history of carotid stenosis Status post right CEA Continue aspirin, Plavix 3. History of left below-knee amputation with small wound Patient recently finished the antibiotic Rocephin Wound care on board New culture from left BKA /stump is positive for MRSA Consult ID physician consulted and recommended at this point NO antibiotic needed. Follow-up with final culture and sensitivity 4. Diabetes mellitus A1c is 10.9 Accu-Chek Sliding scale insulin NPH 5. History of cardiovascular disease Continue home medication metoprolol, 6. DVT prophylaxis Heparin Plan Cont with rehab Active Meds + DC'd Last 24 Hrs Quetiapine Fumarate (SEROqueL) 25 MG BID PO Gabapentin (NEURONTIN) 600 MG TID PO Aspirin (ASPIRIN) 81 MG DAILY PO Clopidogrel Bisulfate (PLAVIX) 75 MG DAILY PO Metoprolol Tartrate (LOPRESSOR) 50 MG DAILY PO Heparin Sodium (HEPARIN) 5,000 UNIT Q8HR SUBQ [facility] Advance Care Planning [X] I confirmed that the patient's Advance Care Plan is present, code status is documented, or surrogate decision maker is listed in the patient s medical record. [SATISFIES MIPS PERFORMANCE] If Yes, Stop Here[] The patient s Advance Care plan is not present because: (select) [MIPS PERFORMANCE EXCEPTION/EXCLUSION][] I confirmed today that the patient does not wish or was not able to name a surrogate decision maker or provide an Advance Care Plan.[] Hospice care is currently being provided or has been provided this calendar year [] I did NOT confirm today the presence of an Advance Care Plan or surrogate decision maker documented within the patient's medical record. [DOES NOT SATISFYMIPS PERFORMANCE] MIPS Heart Fail EF/ACEi/BB [] The patient has a history of heart transplant or Left Ventricular Assist Device (LVAD). If yes, Stop Here. (MIPS PERFORMANCE EXCLUSION)[] The patient has current or prior documentation of left ventricular ejection fraction (LVEF) less than or equal to 40%, or moderate or severely depressed left ventricular systolic function. Answer both: (SATISFIES MIPS PERFORMANCE)[] The patient was prescribed or already taking an Angiotensin-Converting Enzyme(MIGUEL A) Inhibitor, or Angiotensin Receptor Marcell (ARB). [] The patient was prescribed or already taking a beta-marcell. If Yes to Both, Stop Here[] Patient not prescribed/taking: (MIPS PERFORMANCE EXCEPTION/EXCLUSION)[] MIGUEL A or ARB for medical/patient reason(s) including [] (ex. allergy, intolerance, contraindication) [] Beta-marcell for medical/patient reason(s) including [] (ex. allergy, intolerance, contraindication) [] Patient not prescribed/taking: (DOES NOT SATISFY MIPS PERFORMANCE)[] MIGUEL A or ARB, no reason given [] Beta-marcell, no reason given [facility] Med Reconciliation[X] I have utilized all available immediate resources to obtain, update, or review the patient s current medications (including all prescriptions, iddn-hjl-fqbvkqe products, herbals, cannabis/cannabidiol products, and vitamin/mineral/dietary (nutritional) supplements). [SATISFIES MIPS PERFORMANCE] If Yes, Stop Here[] The patient is not eligible for medication reconciliation; the patient is in an emergent medical situation where delaying treatment would jeopardize the patient s health. [MIPS PERFORMANCE EXCEPTION/EXCLUSION][] I did NOT confirm, update or review the patient's current list of medicationstoday. [DOES NOT SATISFY MIPS PERFORMANCE] at 1341 RPT #:[id number] OF REPORTPRProgress [id number]:[id number] Available for patient [id number]:42:[address] [facility] 2022-10-21 10:43:00 [id number] Wo [id number]337-11-58I9 0:43:00 [facility] ([facility])Rehab Progress NoteREPORT#:[id number] REPORT STATUS: SignedDATE:10/21/22 TIME: 1043 PATIENT: BRIGHT SALAZAR UNIT #: [id number]#: [id number] ROOM/BED: 365-WDOB: [birth year] AGE: 57 SEX: M ATTEND: Flako Elias MDADM AUTHOR: Hugo Harrington APRN * ALL edits or amendments must be made on the electronic/computer document * Hugo Harrington 10/21/22 1043:SubjectiveChief complaint:Impaired mobility and self careHistory of present illness:Seen working with OT in room. States his headaches continue to be an issue. Objective GeneralVS:Vital Signs: Date Time Temp Pulse Resp B/P B/P Pulse O2 O2 Flow FiO2 Mean Ox Delivery Rate 10/21 648 98.1 83 16 151/81 104.2 96 10/206 88 162/79 106.7 10/21 2011 99.0 85 18 169/83 111.6 95 Room air PATIENT WEIGHT: Weight (lb): 206Weight (oz): 2.12Weight (kg): 93.500 Physical ExamPsych: dysthmic mood, normal affectHEENT: anicteric, mucosal membranes moistNeck: supple, Right CEA incisionNeuro/RN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 Medical management per IM client relationship consultant, appreciate management. Dispo: Will restaff Sunday 10/22. Rehab attestation:Face to face exam completed. Treatment plan discussed with patient. Meets continued stay criteria. Agree with interdisciplinary treatment plan. Flako Elias 10/16/22 1146:Attestations Physician AttestationAgree w/findings plan:I have personally interviewed and examined the patient. All charts, labs, and imaging studies were reviewed. I agree with the PA/ETHICS INSTRUCTOR's findings, exam, and plan. Discussed at length with patient that he is a vasculopath and thus he is prone to having declining health including issues with stroke, heart disease, and peripheral vascular disease. He seems to have a hard time coping with his overall medical and functional decline. Over 40 min spent on this encounter with >50% of time spent counseling patient on rehab needs, rehab prognosis, coordinating progression of care and projectingdischarge plan. at 1130 at 1147 RPT #:[id number] OF REPORTPRProgress [id number]:26:00B.[id number] Available for patient zzsbYVBXGNBMXKQCOG0674-04-02F96:30:[address] [facility] 2022-10-16 09:17:00 [id number]/iyfnw FG1V [id number]2Mb8Q9563-35-84V4 9:17:00 [facility] Overall POCREPORT#:[id number] REPORT STATUS: SignedDATE:10/16/22 TIME: 916 PATIENT: BRIGHT SALAZAR UNIT #: [id number]#: [id number] [facility] [birth year] AGE: 57 SEX: M ATTEND: Flako Elias AUTHOR: Flako Elias MD * ALL edits or amendments must be made on the electronic/computer document * Individualized Overall POC HPIImpairment group: stroke NOTE Document ONLY ONE Impairment Group Stroke: left body (right brain)Etiologic diagnosis:Acute right ischemic stroke Medical Expected CourseExpected DC destination:Expected DC destination: [facility] facility Problem List/A P: 1. Stroke 2. Carotid stenosis 3. Left hemiparesis 4. Gait abnormality 5. Dysphagia 6. History of left below knee amputation Medical prognosis: fairMedical prognosis details: pt motivation, family/caregiver support, endurance, cognition, D/C planExpected course of Tx:Acute right ischemic stroke with left side hemiparesis: Seen in acute care by Neurology. Aspirin. Plavix. Zetia. Dysphagia: SLPHas decreased sensation on left side of face and feels like he is choking at times. Persistent Headache. Discussed with Dr Hammond, Neurologist. Pt had received 1x dose of Toradol w/ compazine and Benadryl on 10/05 without good effect. Current plan is to continue to titrate up pt's Gabapentin. Increased it to 400mg TID today. Concern for daytime somnelence. Carotid stenosis. S/p Right CEA by Dr Kern. Pt to follow up with Dr Kern on discharge. Has an appt, but that appt may need to be moved if pt still in Rehab. Hx Left BKA with open area to incision: hat cutter consulted.Completed IVP Ceftriaxone on 10/11. Pain: [place] PRN. Tylenol prn. Flexeril PRN. Lidoderm patch to left ribs - Per pt, when he fell at home on 10/04, his left side fell on the handlebar of his scooter. CT of the chest and xrays of the chest did not reveal any fractures. Diabetes: A1c was 10.9 on 10/06/22. NPH BID. SSI Humalog PRN. Agitation: Seroquel HTN: Metoprolol. clonidine PRN. Constipation: PRN bowel medsSenna S 1 tab BID. DVT prophy: Heparin Medical management per IM client relationship consultant, appreciate management. Functional Expected CourseFunctional expected course:The data set between the solid lines has been imported from multidisciplinary team documentation: ANTICIPATED SERVICES IN ACUTE INPATIENT REHAB: DISCIPLINE Physical Therapy Occupational Therapy Speech TherapyINTENSITY (minutes/day) 90 90 30FREQUENCY (days/week) 5 5 5DURATION (# of days) 10 10 10 EXPECTED FUNCTIONAL OUTCOMES: CARE Rolling left and Independent (6) right discharge goal: CARE Sitting to Independent (6) lying discharge goal: CARE Lying to sitting Independent (6) on side of bed discharge goal: CARE Sitting to Independent (6) standing discharge goal: CARE Chair/bed to Independent (6) chair transfer discharge goal: CARE Car transfer Setup/clean-up only (5) discharge goal: CARE Walking 10 Supervise/touch asst (4) feet discharge goal: CARE Walking 50 feet Supervise/touch asst (4) with two turns discharge goal: CARE Walking 150 Supervise/touch asst (4) feet discharge goal: CARE Walking 10 feet on Supervise/touch asst (4) uneven surface discharge goal: CARE 1 step (curb) Supervise/touch asst (4) discharge goal: CARE 4 steps Not applicable discharge goal: CARE 12 steps Not applicable discharge goal: CARE Picking up Independent (6) object discharge goal: CARE [place] 50 feet Independent (6) with two turns discharge goal: CARE [place] 150 Independent (6) feet discharge goal: CARE Toileting hygiene Independent (6) discharge goal: CARE Transfer on/off toilet Independent (6) or commode discharge goal: CARE Eating discharge goal: Independent (6) CARE Oral hygiene Independent (6) discharge goal: CARE Shower/bathe Independent (6) self discharge goal: CARE Upper body Independent (6) dressing discharge goal: CARE Lower body Independent (6) dressing discharge goal: CARE Putting on/taking Independent (6) off footwear discharge goal: Bowel function goal: PATIENT WILL MAINTAIN REGULAR BOWEL FUNCTION UNTIL DISCHARGEBladder function goal: PATIENT WILL MAINTAIN NORMAL BLADDER FUNCTION UNTIL DISCHARGE __ ELOS Attestation:Based upon the review of clinical staff recommendations of frequency, duration and intensity and individual assessment of this patient, I estimate the following: Estimated length of stay:12 days MD Review/RecommendationAttestation:Based upon my physical evaluation of the patient and input from the interdisciplinary team members I have developed this interdisciplinary overall plan of care and determined the admission to the IRF is reasonable and necessary.The IOPOC will be updated weekly and modified under my direction. Patient can be expected to actively participate in, and benefit from, an intensive rehab therapy program whose intensity is not provided in lower levels of care. Complex acute rehab needs: Custom therapy tx plan, Mgt of complex Co-morb, Neurointerdisc tx, Med adjustment/mgmt., New medical diagnosis, New medical complication, Nutritional compromise, Hospitalist consult, VTE Risk at 0919 RPT #:[id number] OF REPORTCLClinical [id number]:17:00B.[id number] Available for patient [id number]:23:05 [facility] 2022-10-15 13:18:00 [id number] Fr4O [id number]+[id number] 3:18:00 [facility] ([facility])Hospitalist ConsultationREPORT#:[id number] REPORT STATUS: SignedDATE:10/15/22 TIME: 1318 PATIENT: BRIGHT SALAZAR UNIT #: [id number]#: [id number] RO[facility]ED[facility]-WDOB: [birth year] AGE: 57 SEX: M ATTEND: Flako Elias AUTHOR: Kaylyn Saavedra MD * ALL edits or amendments must be made on the electronic/computer document * History of Present IllnessHPI:History of presenting illness: Patient is 57 years old male with past medical history of left below-knee amputation, hypertension, diabetes mellitus, coronary artery disease, dyslipidemia, peripheral vascular disease, diabetic neuropathy, degenerative disc disease, is been transferred to the inpatient rehab for continuation of thecare and PT and OT. Prior admission to rehab patient was admitted at [facility] October 04/2023 after having fall from his scooter and causing right-sided flank pain. Patient had CT of the brain which showed right MCA CVA. Neurology team consulted and following patient. In addition MRI and echocardiogram ordered. Images showed thrombus in the right internal carotid artery. Patient was transferred to the ICU and started on heparin drip. Later on patient had CEA. Now patient has been transferred to the inpatient rehab for PT and OT. He is doing good and denies of any issues at this moment. History - Adult longitudinalPast medical history:Reports: Coronary artery disease, Diabetes mellitus, Hypertension, Dyslipidemia. Additional medical history:Poor medical follow through and complaince. PVD diabetic Neuropathy Lt BKA infection req'ing multiple rounds of antibiotics and hospitalizations. Falls Atherosclerosis to the thoracic aorta, coronary arteries, abdominal aorta and branching vessels Calcified granulomas RLL Degenerative disc disease L3-L5 and cervical spine Osteophytosis lower thoracic spinePast surgical history:Reports: CABG (x4), Cholecystectomy. Additional surgical history:Multiple toe amputations transmetatarsal amputation 2020 Left BKA 2 stage dditional family history:Family history of diabetes, no bleeding or clotting dyscrasiasAlcohol use: Last drink was rug use: Denies recreational drugsSmoking status for patients 13 years old or older: Current some day smokerAdditional social history:Lives alone. Stated his sister left so he is alone. Concerned he has not utilities on at his house.Medications:Home Medications: Medication Dose/Rte/Freq Days Qty Entered Last Max Daily Dose Reviewed ASPIRIN 81 MG PO BID 07/24/12 Strength: 81 MG TAB.CHEW 1348 METOPROLOL TARTRATE 50 MG PO DAILY 06/06/22 (LOPRESSOR) 1750 Strength: 50 MG TAB INSULIN NPH HUMAN 35 UNITS SUBQ 10 06/11/22 RECOM BID MEALS 09 (HumuLIN N) Strength: 100 UNIT/ML VIAL EZETIMIBE (ZETIA) 10 MG PO BEDTIME 90 90 10/14/22 Strength: 10 MG TAB 1047 CLOPIDOGREL (PLAVIX) 75 MG PO DAILY 90 90 10/14/22 Strength: 75 MG TAB 1047 QUEtiapine (SEROquel) 50 MG PO BID 7 14 10/14/22 Strength: 50 MG TAB 1048 Current Hospital Medications:Autonomic Drugs Sig/Ekta Start time Last Medication Dose Route Stop Time Status Admin Cyclobenzaprine HCl 5 MG TID PRN PRN 10/14 1830 AC (FLEXERIL) PO 11/13 1646 Blood Formation,Coagulation Sig/Ekta Start time Last Medication Dose Route Stop Time Status Admin Clopidogrel Bisulfate 75 MG DAILY 10/15 899 AC 10/15 (PLAVIX) PO 11/14 0901 0900 Heparin Sodium 5,000 UNIT Q8HR 10/14 220 AC 10/15 (HEPARIN) SUBQ 11/13 2201 1318 Cardiovascular Drugs Sig/Ekta Start time Last Medication Dose Route Stop Time Status Admin Metoprolol Tartrate 50 MG DAILY 10/15 899 AC 10/15 (LOPRESSOR) PO 11/14 0901 0901 Ezetimibe 10 MG BEDTIME 10/14 2100 AC 10/14 (ZETIA) PO 11/13 2101 2048 Clonidine HCl 0.1 MG Q8H PRN PRN 10/14 1830 AC (CATAPRES) PO 11/13 1646 Central Nervous System Agents Sig/Ekta Start time Last Medication Dose Route Stop Time Status Admin Gabapentin 400 MG TID 10/15 1400 AC 10/15 (NEURONTIN) PO 11/13 2201 1319 Hydrocodone Bitart/ 2 TAB Q4H PRN PRN 10/15 1015 AC Acetaminophen PO 11/14 1016 (NORCO 7.5/325 TABLET) Hydrocodone Bitart/ 1 TAB Q4H PRN PRN 10/15 1015 AC 10/15 Acetaminophen PO 11/14 1016 1644 (NORCO 7.5/325 TABLET) Aspirin 81 MG DAILY 10/15 09 AC 10/15 (ASPIRIN) PO 11/13 2100 0900 Gabapentin 300 MG TID 10/14 220 DC 10/15 (NEURONTIN) PO 11/13 2200 05 Quetiapine Fumarate 50 MG BID 10/14 2100 AC 10/15 (SEROqueL) PO 11/13 210 0901 Acetaminophen 650 MG Q4H PRN PRN 10/14 1830 AC (TYLENOL) PO 11/13 1546 Hydrocodone Bitart/ 1 TAB Q4H PRN PRN 10/14 1830 DC Acetaminophen PO 11/13 1646 (NORCO 5/325 TABLET) Hydrocodone Bitart/ 2 TAB Q4H PRN PRN 10/14 1830 DC 10/15 Acetaminophen PO 11/13 1646 0909 (NORCO 5/325 TABLET) Electrolytic, Caloric, And Aniket Sig/Ekta Start time Last Medication Dose Route Stop Time Status Admin Dextrose/Water 25 ML ASDIR PRN 10/14 1830 CKD (DEXTROSE 50%-WATER) IV 11/13 1646 Glucose Polymer 15 GM ASDIR PRN 10/14 1830 AC (GLUTOSE) PO 11/13 1646 Potassium Chloride 40 MEQ ASDIR PRN 10/14 1830 AC (K-DUR) PO 11/13 1546 Gastrointestinal Drugs Sig/Ekta Start time Last Medication Dose Route Stop Time Status Admin Senna/Docusate Sodium 1 UDTAB BID 10/15 2100 AC (SENOKOT-S) PO 11/14 2101 Bisacodyl 5 MG Q12H PRN PRN 10/14 1830 AC (DULCOLAX) PO 11/13 1546 Bisacodyl 10 MG Q48HR PRN PRN 10/14 1830 AC (DULCOLAX) RECTAL 11/13 1546 Ondansetron HCl 4 MG Q8H PRN PRN 10/14 1830 AC (ZOFRAN ODT) PO 11/13 1546 Hormones And Synthetic Substit Sig/Ekta Start time Last Medication Dose Route Stop Time Status Admin Glucagon 1 MG ASDIR PRN 10/14 1830 AC (GLUCAGON) IM 11/13 1646 Insulin Human Lispro See Dose ASDIR PRN 10/14 1830 AC (HUMALOG) Insts (1) SUBQ 11/13 1646 Insulin Human NPH 20 UNIT BID MEALS 10/14 183 AC 10/15 (HumuLIN N) SUBQ 11/13 1831 1707 Skin And Mucous Membrane Agent Sig/Ekta Start time Last Medication Dose Route Stop Time Status Admin Lidocaine 1 PATCH DAILY 10/15 1015 AC 10/15 (LIDODERM PATCH) TRANSDERM 11/14 1016 1015 Dose Instructions:(1)Insulin Human Lispro (HUMALOG): See Admin Criteria Allergies:Coded Allergies:Vlywoqr-TIV-BaS Reductase Inhibitor (Intermediate, JOINT PAIN 10/08/22) JOINT PAIN Review of SystemsAll systems rev neg: except as marked ObjectiveVS/I OLast Documented: Result Date Time Pulse Ox 94 10/15 800 B/P 154/85 10/15 800 B/P Mean 107.8 10/15 08 Temp 97.7 10/15 08 Pulse 82 10/15 08 Resp 18 10/15 08 O2 Delivery Room air 10/15 05 24 hour I O ending at 0700: 10/15 0700 10/14 1900 Intake Total Output Total Balance Number 1 Bowel Movements Patient 93.5 kg Weight Weight Bed scale Measurement Method General appearance: alert, awake, oriented, no acute distressHead/Eyes: atraumatic, EOMI, normocephalic, PERRLCardiovascular: normal capillary refill, normal heart sounds, regular rate rhythmRespiratory: clear to auscultation, no distressAbdomen: non-tender, normal bowel sounds, soft, no distentionExtremities: no edemaNeuro/RN MATERNITY: focal weakness (right side), alert, oriented X 3, normal speech, no sensory deficitsPsychiatry: normal affect, normal judgment/insight, normal mood ResultsFindings/Data:Laboratory Tests: 10/15 10/15 10/15 10/15 1656 1110 0518 0447Chemistry Sodium (133 - 144 mmol/L) 134.0 Potassium (3.5 - 5.1 mmol/L) 3.5 Chloride (95 - 105 mmol/L) 102 Carbon Dioxide (21 - 32 mmol/L) 28 Anion Gap (4.0 - 15.0 GAP calc) 4.0 BUN (7 - 18 MG/DL) 11 Creatinine (0.55 - 1.30 MG/DL) 0.70 Glomerular Filtr Rate (>60 estGFR) 107 Glucose (70 - 110 MG/DL) 112 H POC Glucose (70 - 119 MG/DL) 239 H 159 H 119 Calcium (8.5 - 10.1 MG/DL) 8.9 Specimen Appearance (1 NORMAL Index/DL) 1 NORMAL <2 MG Specimen Hemolysis (1 NORMAL Index/DL) 1 NORMAL <10 [facility]emat[facility] WBC (4.1 - 12.1 K/mm3) 9.7 RBC (3.8 - 5.5 M/mm3) 4.93 Hgb (10.6 - 15.8 G/DL) 13.9 Hct (31.8 - 47.4 %) 41.9 MCV (80.1 - 101.1 fL) 85.0 MCH (25.3 - 35.3 pg) 28.2 MCHC (32.7 - 35.1 G/DL) 33.2 RDW (12.2 - 16.4 %) 13.4 Plt Count (155 - 337 K/mm3) 338 H MPV (7.6 - 10.4 fL) 9.2 Gran % (37.8 - 82.6 %) 58.7 Lymph % (Auto) (14.1 - 45.4 %) 25.3 Williams % (Auto) (2.5 - 11.7 %) 11.9 H Eos % (Auto) (0.0 - 6.2 %) 2.6 Baso % (Auto) (0.0 - 2.6 %) 0.9 Gran # (2.0 - 13.7 k/mm3) 5.70 Lymph # (Auto) (0.6 - 3.8 K/mm3) 2.46 Williams # (Auto) (0.11 - 0.59 K/mm3) 1.16 H Eos # (Auto) (0.0 - 0.4 K/mm3) 0.25 Baso # (Auto) (0.0 - 0.1 K/mm3) 0.09 Immature Gran % (0.0 - 2.0 %) 0.6 Nucleated RBC % (0.0 - 1.0 /100WBC%) 0.0 Nucleated RBCs # (0.00 - 0.05 K/mm3) 0.00 10/14 1958 Chemistry POC Glucose (70 - 119 MG/DL) 137 H Results: labs reviewed, vital signs reviewed, current med profile rev'd Diagnosis, Assessment PlanPlan discussed with: patient, nurse Free Text DxA P NotesFree Text DxA P Notes:Assessment and plan: 1. Acute ischemic CVA on the right side PT and OT Patient is on aspirin, Plavix, Zetia Follow-up with neurology as outpatient setting 2. Recent history of carotid stenosis Status post right CEA Continue aspirin, Plavix 3. History of left below-knee amputation with small wound Patient recently finish the antibiotic Rocephin Wound care on board Small pus was noted over a stump, will try to get culture if is possible 4. Diabetes mellitus A1c is 10.9 Accu-Chek Sliding scale insulin NPH 5. History of cardiovascular disease Continue home medication metoprolol, 6. DVT prophylaxis Heparin at 1623 RPT #:[id number] OF REPORTWTHnodufqpzjks4567-18-37R37:18:00B. [id number] for patient rvgzVDRJXIDVPGOWCT0451-82-67F25:23:[address] [facility] 2022-10-15 13:12:00 [id number]/xr37 p9vO 6ofUxEbRUf8u5voA/m25/naamq503LAE0859-55-45D4 3:12:00 [facility] ([facility])Rehab Team ConferenceREPORT#:[id number] REPORT STATUS: SignedDATE:10/15/22 TIME: 1312 PATIENT: BRIGHT SAALZAR UNIT #: [id number]#: [id number] [facility] AGE: 57 SEX: M ATTEND: Flako Elias AUTHOR: Flako Elias MD * ALL edits or amendments must be made on the electronic/computer document * Rehabilitation Team Conference Weekly Team ConferenceTeam conf information:Date of conference: 10/15/22Conference type: InitialConference scribe: Arelis Phipps PT INTERDISCIPLINARY TEAM MEETING PARTICIPANTS: TITLE NAME MD Flako Elias, MD DYLAN Mckay, RN PT Mukund Santillan, REHDR OT Lissette Chacon, OT CM/SW Magalie Morgan, WARDROBE COORDINATOR Magalie Morgan, WARDROBE COORDINATOR PPSC Arelis Phipps, PT Staff (8) NO ATTENDEE Staff (9) NO ATTENDEE OTHER NAME CREDENTIALS 1 2 FUNCTIONAL CHANGE: TYPE ADMISSION TOTAL INTERIM TOTAL CHANGE Self care 3 3 0 Transfer 26 26 0 Mobility 8 8 0 Wheelchair distance: 50 ftMobility description: Please refer to assessment. BOWEL AND BLADDER STATUS: Bowel continence admission rating: Bladder continence admission rating: Bowel and bladder team conference update: CONTINENT OF BOWEL AND BLADDER INTERDISCIPLINARY TEAM UPDATES: ALTON team conference update: AOX4 ROOM AIR, DM HYPERGLYCEMIA ACHS-SSI, LIDOCAINEPATCH LEFT RIBS, NORCO/TYLENOL Q4 PRN FOR PAIN, L BKA STUMP WOUNDPT team conference update: Bed rolling: SPV. Sit to/from laying in bed: SBA. Sit to stand: CGA with RW. Bed to/from wc: CGA using squat pivot. Car transfersimulator: minimal assist. Gait: Unable at this time due to headache and left side pain (ribs). WC propulsion: 50 ft CGA. Stairs: Not applicable. Picking upobjects from floor; Unable at this time. OT team conference update: EATING-SET UP ORAL-SET UP BATHING-CGA UBD-SET UP LBD-CGA FW-SET UP TOILETING-CGAST team conference update: MILD COGNITIVE DEFICITS, REDUCED VISUOSPATIAL AND VISUAL ATTENTION. FUNCTIONAL LANGUAGE AND SPEECH. OROPHARYNGEAL SWALLOW FUNCTIONAL. CM or FREDDY team conference update: [facility], NO STEPS TO ENTER. WALK IN SHOWER WITH GRAB BAR. DME-RW, WC, SHOWER CHAIR, KNEE SCOOTEROther discipline update 1: Other discipline update 2: Other discipline update 3: REHAB DC GOALS: Patient's identified discharge goal: TO GET STRONG AND GO BACK TO WORK Eating discharge goal: Shower/bathe self discharge goal: Upper body dressing discharge goal: Lower body dressing discharge goal: Chair/bed to chair transfer discharge goal: Independent (6) Transfer on/off toilet or commode discharge goal: Independent (6) Walking 50 feet with two turns discharge goal: Supervise/touch asst (4) Walking 150 feet discharge goal: Supervise/touch asst (4) Four steps discharge goal: Not applicable Twelve steps discharge goal: Not applicable [place] 150 feet discharge goal: Independent (6) Goal 1 - Bowel function: PATIENT WILL MAINTAIN REGULAR BOWEL FUNCTION UNTIL DISCHARGEGoal 2 - Bladder function: PATIENT WILL MAINTAIN NORMAL BLADDER FUNCTION UNTIL DISCHARGENursing goal 3: PATIENT WILL IMPROVE IN STRENGHT AND MOBILITY BEFORE DISCHARGENursing goal 4: PATIENT WILL BE MONITORED FOR FALL AND SAFETY THROUGHOUT HOSPITALIZATIONNursing goal 5: PATIENT PAIN WILL BE MANAGED < 3 THROUGHOUT HOSPITALIZATION DISCHARGE PLANNING: Barriers to discharge: Fall risk, PainStrategies for D/C barriers: Evaluate pain control, Scheduled rest breaksEstimated length of stay in days: 7Anticipated discharge date: 10/22/22Discharge date adjustment comment: SNF VS MEDICAID PENDING NURSING HOMEIdentified financial and/or community resource needs: SNF VS MEDICAID PENDING [facility] Family/Caregiver training days: NA PER SNF REFERRAL [place] day (DATE): 10/23/22[facility] facilityAnticipated services upon discharge: Physical therapy, Nursing, Occupational therapy, Nurses aide, plant production worker, Speech therapyAnticipated discharge equipment: Pt has DME at home. Impairment group: stroke NOTE Document ONLY ONE Impairment Group Stroke: left body (right brain)Etiologic diagnosis:Acute right ischemic strokeReview of comorbidities:Current surgery date and type: 10/08/22: Right carotid endarterectomy with bovine pericardial patch angioplasty. Active comorbid conditions: L BKA stump wound, Diabetic hyperglycemia, Hypertension, CAD, Tobacco dependence Past medical and surgical history: DM, HTN, L BKA, CAD, HLD, HTN, GERD, CABG, Tobacco dependence Had major surgery within 100 days of admission: Yes Risk for medical/clinical complications: Anemia, Arrhythmia, BP fluctuation, Cardiac instability, Constipation, DVT, Depression, Electrolyte imbalance, Hypoxia, Incisional dehiscence, Infection, Injury d/t falls, Blood sugar fluctuation, Nutritional compromise, Pain, Skin breakdown MD Review/RecommendationsAttestation:This interdisciplinary team conference was led by me and I concur with all decisions made during the team conference and revisions to the individualized overall plan of care. IRF cont stay criteriamet at 1313 RPT #:[id number] OF REPORTCLClinical [id number]:[id number] Available for patient [id number]:13:[address] [facility] 2022-10-15 10:37:00 [id number] 0:37:00 [facility] ([facility])Rehab History PhysicalREPORT#:[id number] REPORT STATUS: SignedDATE:10/15/22 TIME: 1037 PATIENT: BRIGHT SALAZAR UNIT #: [id number]#: [id number] [facility]GE[facility] 57 SEX: M ATTEND: Flako Elias [facility] AUTHOR: Hugo Harrington APRN * ALL edits or amendments must be made on the electronic/computer document * Hugo Harrington 10/15/22 1037:HPI HPIChief complaint:Impaired mobility and self carePCP:PCP: No Primary or Family Physician HPI:57 year old male with a prior medical history of diabetes, hypertension, and left BKA who admitted to the ED at [facility] on 10/04/22 withcomplaints of right sided flank pain after a fall from his scooter. He also complained of a headache for 3 days associated with weakness and a throbbing sensation in his right temporal lobe. A brain CT revealed a right MCA CVA. Neurology was consulted and ordered vascular imaging, MRI, and echo due to suspected embolic etiology. He was started on ezetimibe, aspirin, and Plavix. Vascular imaging revealed a large thrombus in the right internal carotid artery,however no intervention was recommended because the stroke occurred two days prior, therefore he was transferred to ICU and started on a Heparin drip with plans for a carotid endarterectomy. On 10/08/22/ he underwent a right CEA with bovine patch arthroplasty by Dr. Kern. His hospital course was further complicated by left pleurisy and a left BKA stump wound for which wound care hasbeen consulted. He requires ongoing medical management of diabetes, hypertension, and anticoagulation after stroke. At baseline, he lives alone in a single story house where he is mod I for ADL and mobility using a knee scooter. Currently, he requires min assist for transfers and max assist for ADL, with gait assessment pending. He is able, willing, and motivated to participate in 3 hours of therapy, 5 days per week, with a goal of returning home at his prior level of function. FUNCTIONAL ASSESSMENT: FUNC. TASK PRIOR LOF CURRENT LOF EXPECTED LOFBathing Independent Substantial/max asst IndependentU.B. Dressing Independent Supervise/touch asst IndependentL.B. Dressing Independent Substantial/max asst IndependentBed/Ch Transf. Independent Supervise/touch asst IndependentToilet Transfer Independent Supervise/touch asst IndependentStairs Partial/moderate Total assistance Partial/moderate asst asstLocomotion Independent Supervise/touch asst Independent Locomotion prior device use: ScooterDescription of prior level of locomotion: Mod I using Knee scooterLocomotion current device: Knee walkerLocomotion current distance traveled without a rest break: 25 feetDescription of current level of locomotion: unsteady, decreased candenceDescription of expected level of locomotion: Will require adaptive device upon discharge Language and Cognition: Alert and orietned x 3Add'l functional comment: Patient is limited by weakness, decreased balance, and pain. Prior device use: ScooterImpairment group: stroke NOTE Document ONLY ONE Impairment Group Stroke: left body (right brain)Etiologic diagnosis:Acute right ischemic stroke HistoryPreadmit diagnostic/labs: Date: 10/10/22 10/12/22 WBC: 14.5 12.5 HGB: 13.7 13.7 HCT: 37.1 40.4 Ca: 8.6 Na: 135 133 K+: 3.8 3.8 Glu: 104 145 M.7 BUN: 18 13 Creat: .67 .76 Tot protein: Alb: PTT: PT: INR: PLT: Additional labs: Cultures: Imaging: Brain CT 10/04/22: 1. Loss of shaw-white matter differentiation and a large area at the right parietal lobe concerning for cerebral infarction.2. No acute fracture or malalignment of the cervical spine. 3. Multilevel degenerative changes of the cervical spine. CTA 10/05/22: Right internal carotid artery stenosis. thrombus at risk for further embolization. Evolving right middle cerebral artery distribution infarct without mass effect. Indeterminate right parotid lesions, for which otolaryngology consultation is recommended. Brain MRI 10/07/22: 1. Acute/early subacute ischemic infarct in involving the right parietal and temporal lobes and insular cortex. Small punctate petechial blood products are noted within the right parietal cortex. No large hemorrhagic transformation is seen. 2. Chronic small vessel ischemic white matter disease. 3. Partly visualized lesions within the right parotid gland, better visualized on recent CT of the neck. Surgical consultation recommended.Other supporting diagnostics: Past medical history:Reports: Coronary artery disease, Diabetes mellitus, Hypertension, Dyslipidemia. Additional medical history:Poor medical follow through and complaince.PVDdiabetic NeuropathyLt BKA infection req'ing multiple rounds of antibiotics and hospitalizations.FallsAtherosclerosis to the thoracic aorta, coronary arteries, abdominal aorta and branching vesselsCalcified granulomas RLLDegenerative disc disease L3-L5 and cervical spineOsteophytosis lower thoracic spinePast surgical history:Reports: CABG (x4), Cholecystectomy. Additional surgical history:Multiple toe amputationstransmetatarsal amputation eft BKA 2 stage dditional family history:Family history of diabetes, no bleeding or clotting dyscrasiasAlcohol use: Last drink was rug use: Denies recreational drugsSmoking status for patients 13 years old or older: Current some day smokerAdditional social history:Lives alone. Stated his sister left so he is alone.Concerned he has not utilities on at his house.Allergies:Coded Allergies:Aktujtr-KOM-CzD Reductase Inhibitor (Intermediate, JOINT PAIN 10/08/22) JOINT PAIN ROS ROSROS comments:12 point review of systems performed. All pertinent positives listed in HPI. Allother review of systems negative Objective Physical ExamVS:Last Documented: Result Date Time Pulse Ox 94 10/15 0801 B/P 154/85 10/15 800 B/P Mean 107.8 10/15 800 Temp 97.7 10/15 800 Pulse 82 10/15 800 Resp 18 10/15 800 O2 Delivery Room air 10/16 519 PATIENT WEIGHT: Weight (lb): 206Weight (oz): 2.12Weight (kg): 93.500 General appearance: alert, conversationalPsych: dysthmic mood, normal affectHEENT: anicteric, mucosal membranes moistNeck: supple, Right CEA incisionNeuro/RN MATERNITY: sensory deficit (left face and LUE), alert, oriented X 3 ResultsFindings/Data:Laboratory Tests: 10/15 Chemistry Sodium (133 - 144 mmol/L) 134.0 Potassium (3.5 - 5.1 mmol/L) 3.5 Chloride (95 - 105 mmol/L) 102 Carbon Dioxide (21 - 32 mmol/L) 28 Anion Gap (4.0 - 15.0 GAP calc) 4.0 BUN (7 - 18 MG/DL) 11 Creatinine (0.55 - 1.30 MG/DL) 0.70 Glomerular Filtr Rate (>60 estGFR) 107 Glucose (70 - 110 MG/DL) 112 H POC Glucose (70 - 119 MG/DL) 119 137 H Calcium (8.5 - 10.1 MG/DL) 8.9 Specimen Appearance (1 NORMAL Index/DL) 1 NORMAL <2 MG Specimen Hemolysis (1 NORMAL Index/DL) 1 NORMAL <10 MG Hematology WBC (4.1 - 12.1 K/mm3) 9.7 RBC (3.8 - 5.5 M/mm3) 4.93 Hgb (10.6 - 15.8 G/DL) 13.9 Hct (31.8 - 47.4 %) 41.9 MCV (80.1 - 101.1 fL) 85.0 MCH (25.3 - 35.3 pg) 28.2 MCHC (32.7 - 35.1 G/DL) 33.2 RDW (12.2 - 16.4 %) 13.4 Plt Count (155 - 337 K/mm3) 338 H MPV (7.6 - 10.4 fL) 9.2 Gran % (37.8 - 82.6 %) 58.7 Lymph % (Auto) (14.1 - 45.4 %) 25.3 Williams % (Auto) (2.5 - 11.7 %) 11.9 H Eos % (Auto) (0.0 - 6.2 %) 2.6 Baso % (Auto) (0.0 - 2.6 %) 0.9 Gran # (2.0 - 13.7 k/mm3) 5.70 Lymph # (Auto) (0.6 - 3.8 K/mm3) 2.46 Williams # (Auto) (0.11 - 0.59 K/mm3) 1.16 H Eos # (Auto) (0.0 - 0.4 K/mm3) 0.25 Baso # (Auto) (0.0 - 0.1 K/mm3) 0.09 Immature Gran % (0.0 - 2.0 %) 0.6 Nucleated RBC % (0.0 - 1.0 /100WBC%) 0.0 Nucleated RBCs # (0.00 - 0.05 K/mm3) 0.00 Microbiology:10/14 2126 NASAL: MRSA Screen - RECD Diagnosis, Assessment Plan Diagnosis, Assessment PlanProblem List/A P: 1. Ischemic stroke 2. Left hemiparesis 3. Gait abnormality 4. Dysphagia 5. Headache 6. Carotid stenosis 7. History of left below knee amputation 8. Nonhealing surgical wound 9. Contusion of rib 10. Diabetes 11. Agitation 12. HTN (hypertension) Free Text A P:Rehab Assessment and Plan: PT: for bed mobility, transfer training, gait training with AD, balance training, endurance improvement, LE strengthening, ROM improvementOT: for ADL and transfer trainingST: for cognitive and swallow evaluation with treatment as appropriatePrecautions: pain, left hemiparesis, Left BKA Acute right ischemic stroke with left side hemiparesis: Seen in acute care by Neurology. Aspirin. Plavix. Zetia. Dysphagia: SLPHas decreased sensation on left side of face and feels like he is choking at times. Persistent Headache. Discussed with Dr Hammond, Neurologist. Pt had received 1x dose of Toradol w/ compazine and Benadryl on 10/05 without good effect. Current plan is to continue to titrate up pt's Gabapentin. Increased it to 400mg TID today. Concern for daytime somnelence. Carotid stenosis. S/p Right CEA by Dr Kern. Pt to follow up with Dr Kern on discharge. Has an appt, but that appt may need to be moved if pt still in Rehab. Hx Left BKA with open area to incision: hat cutter consulted.Completed IVP Ceftriaxone on 10/11. Pain: [place] PRN. Tylenol prn. Flexeril PRN. Lidoderm patch to left ribs - Per pt, when he fell at home on 10/04, his left side fell on the handlebar of his scooter. CT of the chest and xrays of the chest did not reveal any fractures. Diabetes: A1c was 10.9 on 10/06/22. NPH BID. SSI Humalog PRN. Agitation: Seroquel HTN: Metoprolol. clonidine PRN. Constipation: PRN bowel medsSenna S 1 tab BID. DVT prophy: Heparin Medical management per IM client relationship consultant, appreciate management. Dispo: DC date TBD pending IDP staff meeting. >75 min spent on this encounter with >50% of time counseling patient on co-morbidities, safety measures, rehab prognosis Review of comorbidities:Current surgery date and type: 10/08/22: Right carotid endarterectomy with bovine pericardial patch angioplasty.Active comorbid conditions: L BKA stump wound, Diabetic hyperglycemia, Hypertension, CAD, Tobacco dependencePast medical and surgical history: DM, HTN, L BKA, CAD, HLD, HTN, GERD, CABG, Tobacco dependence Had major surgery within 100 days of admission: YesRisk for medical/clinical complications: Anemia, Arrhythmia, BP fluctuation, Cardiac instability, Constipation, DVT, Depression, Electrolyte imbalance, Hypoxia, Incisional dehiscence, Infection, Injury d/t falls, Blood sugar fluctuation, Nutritional compromise, Pain, Skin breakdownCompare to PAS:No changesEstimated length of stay:14-21 days Acute Rehab Attestation NOTE Attestation is for MD onlyRehab MD attestation:Based upon my evaluation, the patient's medical management and rehabilitation needs require an inpatient stay and close physician involvement. Patient can be expected to actively participate in, and benefit from, an intensive rehab therapy program whose intensity is not provided in lower levels of care. Significant barriers that can only be addressed in an acute inpatient rehab program, including, but not limited to:Painwound careDecreased mobility Complex acute rehab needs: Custom therapy tx plan, Mgt of complex Co-morb, Neurointerdisc tx, Med adjustment/mgmt., New medical diagnosis, New medical complication, Nutritional compromise, Hospitalist consult, VTE Risk Flako Elias 10/15/22 1216:HPI HPI NOTE Document ONLY ONE Impairment Group Diagnosis, Assessment Plan Acute Rehab Attestation NOTE Attestation is for MD only Attestations Physician AttestationAgree w/findings plan:I have personally interviewed and examined the patient. All charts, labs, and imaging studies were reviewed. I agree with the PA/ETHICS INSTRUCTOR's findings, exam, and plan. Neurontin increased to 400 mg TID at 1145 at 1217 RPT #:[id number] OF REPORTHPHistory and physical [id number]:37:[id number] for patient [id number]:45:[address] [facility] 2022-10-14 12:02:00 [id number] 2:02:00 [facility])Rehab Preadmission ScreenREPORT#: REPORT STATUS:DATE:10/14/22 TIME: 1202 PATIENT: BRIGHT SALAZAR UNIT #: ROOM: BED:: 65 AGE: 57 SEX: M ATTEND: Flako Elias MDPROJECTED ADM AUTHOR: Flako Elias MDREP SRV REP SRV TM: 1202* ALL edits or amendments must be made on the electronic/computer document * IRF Preadmission Screen Information From [facility] PASCRS PAS documentation:The data set between the solid lines has been imported from CRS PAS documentation. PREADMISSION INFORMATION: DEMOGRAPHICS: Assessment date: 10/10/22Assessment time: 1054Patient has an Advanced Directive: NoContent of advance directive/living will/plan of care: Copy of advance directive on chart: Referring physician: Yung Loomis MD Primary care provider: None on file Consulting physician(s): John Hammond- Neurology Shayla Hester- Critical care Melinda Loomis- hospitalist Shayla Kern- Cardiac surgery Referral contact name: Joel Gibbs contact number: [phone] [id number] IMPAIRMENT GROUP: Impairment group: Stroke left body right brain Etiologic diagnosis: Acute right ischemic stroke REVIEW OF MED CONDITIONS: Date of onset: 10/04/22Current surgery date and type: 10/08/22: Right carotid endarterectomy with bovine pericardial patch angioplasty.Active comorbid conditions: R CCA/ICA stenosis with , superimposed thrombus, L BKA stump wound, Diabetic hyperglycemia, Hypertension, CAD, Tobacco dependence ,L pleurisy , LeukocytosisPast medical and surgical history: DM, HTN, L BKA, CAD, HLD, HTN, GERD, CABG, Tobacco dependence Had major surgery within 100 days of admission: YesRisk for medical/clinical complications: Anemia, Arrhythmia, BP fluctuation, Cardiac instability, Constipation, DVT, Depression, Electrolyte imbalance, Hypoxia, Incisional dehiscence, Infection, Injury d/t falls, Blood sugar fluctuation, Nutritional compromise, Pain, Skin breakdownAcute hospital stay summary: This patient is a 57 year old male with a prior medical history of diabetes, hypertension, and left BKA who admitted to the ED at [facility] on 10/04/22 with complaints of right sided flankpain after a fall from his scooter. He also complained of a headache for 3 days associated with weakness and a throbbing sensation in his right temporal lobe. [place] CT revealed a right MCA CVA. Neurology was consulted and ordered vascular imaging, MRI, and echo due to suspected embolic etiology. He was started on ezetimibe, aspirin, and Plavix. Vascular imaging revealed a large thrombus in the right internal carotid artery, however no intervention was recommended because the stroke occurred two days prior, therefore he was transferred to ICU and started on a Heparin drip with plans for a carotid endarterectomy. On 10/08/22/ he underwent a right CEA with bovine patch arthroplasty by Dr. Kern. His hospital course was further complicated by left pleurisy and a left BKA stump wound for which wound care has been consulted. He requires ongoing medical management of diabetes, hypertension, and anticoagulation after stroke. At baseline, he lives alone in a single story house where he is mod I for ADL and mobility using a knee scooter. Currently, he requires min assist for transfers and max assist for ADL, with gait assessment pending. He is able, willing, and motivated to participate in 3 hours of therapy, 5 days per week, with a goal of returning home at his prior level of function. PREADMIT VITALS: Date/Time 10/10/22 0706 10/14/22 0735 Temp F Temp C 36.8 36.5 Pulse 92 90 RR 14 16 BP 156/76 110/67 SPO2% 90 92 Ht ft 6 Ht in 0 Wt lbs 193.000 BMI 26.2 SUPPORTING DIAGNOSTICS/LABS/RADIOLOGY/CARDIOLOGY: Date: 10/10/22 10/12/22 WBC: 14.5 12.5 HGB: 13.7 13.7 HCT: 37.1 40.4 Ca: 8.6 Na: 135 133 K+: 3.8 3.8 Glu: 104 145 M.7 BUN: 18 13 Creat: .67 .76 Tot protein: Alb: PTT: PT: INR: PLT: Additional labs: Cultures: Imaging: Brain CT 10/04/22: 1. Loss of shaw-white matter differentiation and a large area at the right parietal lobe concerning for cerebral infarction.2. No acute fracture or malalignment of the cervical spine. 3. Multilevel degenerative changes of the cervical spine. CTA 10/05/22: Right internal carotid artery stenosis. thrombus at risk for further embolization. Evolving right middle cerebral artery distribution infarct without mass effect. Indeterminate right parotid lesions, for which otolaryngology consultation is recommended. Brain MRI 10/07/22: 1. Acute/early subacute ischemic infarct in involving the right parietal and temporal lobes and insular cortex. Small punctate petechial blood products are noted within the right parietal cortex. No large hemorrhagic transformation is seen. 2. Chronic small vessel ischemic white matter disease. 3. Partly visualized lesions within the right parotid gland, better visualized on recent CT of the neck. Surgical consultation recommended.Other supporting diagnostics: RESPIRATORY STATUS: Respiratory treatments: NebulizerO2 liters per minute: Respiratory status: Nebulizer Q4H PRN NEUROLOGIC STATUS: Neurologic status: Alert, Oriented to person, Oriented to place, Oriented to situationPatient's mood and behavior: Appropriate, ImpulsiveHand dominance: Right BOWEL/BLADDER: Continent of bladder for developmental age: NoNumber of bladder accidents in last 48 hours: 5Catheter type: Insertion date: Bladder aids: Bladder comment: Continent of bowel for developmental age: YesNumber of bowel accidents in last 48 hours: Date of last BM: 10/14/22Colostomy: Ileostomy: Bowel aids: DulcolaxBowel comment: SKIN: Skin alteration: Present/Exists SKIN ALTERATION 1: Type: Surgical woundLocation: NeckStage: Description: Dressing C/D/I per mechanical designer SKIN ALTERATION 2: Type: WoundLocation: Leg left lowerStage: Description: Blanched dull skin, per wound care note incision did not close. covered with honey dressing and foam. SKIN ALTERATION 3: Type: Location: Stage: Description: SKIN ALTERATION 4: Type: Location: Stage: Description: EATING/NUTRITIONAL: Nutritional intake: PO regular food, PO thin liquids, cardiac dietEating compensatory strategies: Medication administration: IV, Medications whole, Subcutaneous REHAB NEEDS: Special rehabilitation needs: IV/PICC/CVC, Respiratory therapySpecial rehabilitation precautions: Safety/fallRehabilitation precaution detail: Fall risk due to L BKA and new onset weakness after CVA FUNCTIONAL ASSESSMENT: FUNC. TASK PRIOR LOF CURRENT LOF EXPECTED LOFBathing Independent Substantial/max asst IndependentU.B. Dressing Independent Supervise/touch asst IndependentL.B. Dressing Independent Substantial/max asst IndependentBed/Ch Transf. Independent Supervise/touch asst IndependentToilet Transfer Independent Supervise/touch asst IndependentStairs Partial/moderate Total assistance Partial/moderate asst asstLocomotion Independent Supervise/touch asst Independent Locomotion prior device use: ScooterDescription of prior level of locomotion: Mod I using Knee scooterLocomotion current device: Knee walkerLocomotion current distance traveled without a rest break: 25 feetDescription of current level of locomotion: unsteady, decreased candenceDescription of expected level of locomotion: Will require adaptive device upon discharge Language and Cognition: Alert and orietned x 3Add'l functional comment: Patient is limited by weakness, decreased balance, and pain. Prior device use: ScooterPrior device use additional information: PRE-HOSPITAL: Pre-hospital services utilized: NoneOccupation/Profession: RetiredEducation history: Return to work/school plan: Marital status: Never marriedHobbies/leisure activities: Prior living situation: HomeLiving with: AloneLiving with comment: ANTICIPATED DC PLAN/POST IRF: Primary support contact: Diamond Bruno to patient: Phone number 1: [phone] number 2: Caregiver availability: NoneCaregiver can provide: Patient/caregiver goals/preferences: Return home at prior level of functionExpected discharge destination: HomeExpected discharge physical layout: One storyNumber of external stairs: Number of internal stairs: Railing details: Grab bars location: Barriers to discharge: Caregiver supportOptions discussed with patient: YesOptions discussed with caregiver: Patient agrees with program requirements: Yes ACTIVITY TOLERANCE: Current treatment interventions: Occupational therapy, Physical therapy, Respiratory therapyPatient able to tolerate 3 hours of therapy a day: YesPatient able to tolerate 15 hours of therapy a week: Altered therapy schedule comment: ACUTE INPATIENT REHAB PLAN: Estimated length of stay in days: 14Anticipated services in acute inpatient rehab: Rehab nursing 30/12, first assistant manager,Occupational therapy, Physical therapy, [facility] reviewed prior to admission decision: Acute History/Physical, Consult notes, Operative reports, Progress notes, Lab/diagnostics, Therapy notes, Vital signs, Other ancillary notes CRS ELECTRONIC SIGNATURE: CRS #1 electronic signature: Peg Campbell credentials: OTRDate: 10/10/22Time: 1120 CRS #2 electronic signature: Kathryn Valles credentials: STDate: 10/14/22Time: 1133 CRS #3 electronic signature: TARSHA credentials: Date: Time: Provider Pre-Admit SummaryAcute IP rehab admit: criteria metMD determinationBased upon my evaluation and review of the supporting assessment documentation and consultation with the preadmission sandblaster stone, I have determined, prior to admitting this patient, that there is reasonable expectation that at the time of admission to the IRF, the patient's medical management and rehabilitation needs require an inpatient stay and close physician involvement. Patient can be expected to actively participate in, and benefit from, and intensive rehab therapy program whose intensity is not provided in lower levels of care. Significant barriers that can only be addressed in an acute inpatient rehab program, including, but not limited to: Complex acute rehab needs: Custom therapy tx plan, Mgt of complex Co-morb, Neurointerdisc tx, Med adjustment/mgmt., New medical diagnosis, New medical complication, Nutritional compromise, Hospitalist consult, VTE Risk at 1203 RPT #:[id number] OF REPORTCLClinical [id number]:02:[id number] Available for patient [id number]:03:[address] [facility] 2022-10-14 10:53:00 [id number] 2feq [id number] 0:53:00 [facility] ([facility])Hospitalist Discharge SummaryREPORT#:[id number] REPORT STATUS: SignedDATE:10/14/22 TIME: 1053 PATIENT: BRIGHT SALAZAR UNIT #: [id number]#: [id number] [address] AGE: 57 SEX: M ATTEND: Yung Loomis AUTHOR: Lorne Hawthorne MD * ALL edits or amendments must be made on the electronic/computer document * General InformationDischarge date: 10/14/22Discharge diagnosis:Right CVARight ICA thrombus status post endarterectomy and angioplastyStatus post fallHospital course:Patient is a 57-year-old male with past medical history of diabetes hypertension, he was initially admitted for CABG, left BKA he was brought into the ER because he fell from the scooter. He was initially admitted for a fall, bowser CT was negative for acute traumatic abnormalities, he also endorsed headache and right-sided neck pain, brain CT was concerning for cerebral infarction. Neurology was consulted, he underwent brain MRI which was noted for acute/subacute ischemic infarct of the right parietal and temporal lobe, CTA H/N was noted for right cervical internal carotid artery thrombus and evolving right MCAinfarct. He was started on heparin drip, CT surgery was consulted, he underwentcarotid endarterectomy with angioplasty. He was transferred to the ICU, currently patient has been transferred out of the ICU, he is doing well. Patient does not appear agitated, he can be discharged will be discharged to rehab for aggressive physical and occupational therapy. We will continue Plavixand Zetia. He will follow-up with Dr. Sparks in 1 to 2 weeks. Med Rec Med RecDischarge meds:Continue taking these medications:GABAPENTIN (NEURONTIN) 400 MG CAP 400 MILLIGRAM ORAL THREE TIMES A DAY. METOPROLOL TARTRATE (LOPRESSOR) 50 MG TAB 50 MILLIGRAM ORAL DAILY. INSULIN NPH HUMAN RECOM (HumuLIN N) 100 UNIT/ML VIAL 35 UNITS SUBCUTANEOUS TWICE DAILY WITH MEALS. Qty = 10 INSULIN REGULAR (HumuLIN R) 100 UNIT/ML VIAL 10 UNITS SUBCUTANEOUS BEFORE MEALS. Qty = 10 CLOPIDOGREL (PLAVIX) 75 MG TAB 75 MILLIGRAM ORAL DAILY. Days = 90 Qty = 90 This prescription has been renewed Start taking the following new medications:EZETIMIBE (ZETIA) 10 MG TAB 10 MILLIGRAM ORAL BEDTIME. Days = 90 Qty = 90 No Refills QUEtiapine (SEROquel) 50 MG TAB 50 MILLIGRAM ORAL TWICE DAILY. Days = 7 Qty = 14 No Refills ObjectiveVS/I OLast Documented: Result Date Time Pulse Ox 93 10/14 1603 B/P 143/66 10/14 1603 B/P Mean 91.4 10/14 1603 Temp 97.7 10/14 1603 Pulse 83 10/14 1603 Resp 17 10/14 1603 O2 Delivery Room air 10/14 0445 FiO2 21 10/11 0152 O2 Flow Rate 0 10/10 1454 Free Text Obj NotesFree Text Obj Notes:General: AAOx3, laying in bed, comfortable,HEENT: Atraumatic, normocephalic, EOMI, PERRLA, mucous members moistRespiratory: Clear to auscultation bilaterallyCardiovascular: Regular rate and rhythm, no murmurs appreciatedAbdomen: Soft, nondistended, nontender to palpation. Bowel sounds presentExtremities: Left BKANeurologic: GHQy2Rvpkvezvsk: Mood is stable Discharge Instructions PCPDischarge to: Inpatient Rehab FacilityAdditional Discharge Routines: PCP Follow-Up, Or First Assist Registered Nurse Follow-UpDiet: Regular, DiabeticFluid restriction(mls/day):1500Weight monitoring: Three Times a Week Follow-up AppointmentsPCP follow-up: PCP: No Primary or Family Physician PCP follow up timeframe: In 1-2 weeks Special instructions:repeat cbc in 1 week to assess wbc ctConsulting provider 1: Provider 1: Kelvin Kern MD Specialty: Thoracic Surgery Consult follow up timeframe: In 1-2 weeks at 1515 [facility] #:[id number] OF REPORTDSDischarge [id number]:53:00B.[id number] [id number] for patient [id number]:15:[address] [facility] 2022-10-13 12:41:00 [id number] vgCO [id number]/[id number] 2:41:00 [facility] Progress NoteREPORT#:[id number] REPORT STATUS: SignedDATE:10/13/22 TIME: 1241 PATIENT: BRIGHT SALAZAR UNIT #: [id number]#: [id number] [facility]DOB: [birth year] AGE: 57 SEX: M ATTEND: Yung Loomis [facility] AUTHOR: Jimmy Mark MD * ALL edits or amendments must be made on the electronic/computer document * SubjectiveChief complaint:Fell HeadachesHPI:This is a 57-year-old male with past medical history of diabetes hypertension CABG left BKA he was brought into the ER because he fell from the scooter he wason the scooter when he slipped and fell on the right side later at home he developed pain in the right chest and right side of the abdominal he was complaining of headache since 3 days which she never had it was right-sided throbbing he was also complaining of generalized weakness he also complains of redness in the left stump for which she they were supposed to prescribe an antibiotics denies any nausea vomiting diarrhea abdominal pain hematemesis melena blood in stool asking for more morphine's Objective GeneralVS/I O:Vital Signs: Date Time Temp Pulse Resp B/P B/P Pulse O2 O2 Flow FiO2 Mean Ox Delivery Rate 10/13 1136 98.2 98 18 174/98 123.1 94 10/13 0742 98.1 93 20 153/87 108.8 94 10/13 0547 97.9 91 18 153/88 109.6 91 Room air 10/12 2037 81 20 171/80 110.6 97 Room air 10/12 1551 98.6 73 17 152/77 102.0 94 24 hour I O ending at 0700: 10/13 0700 10/12 1900 Intake Total Output Total 650 Balance -650 Output, Urine 650 PATIENT WEIGHT: Weight (lb): 192Weight (oz): 14.47Weight (kg): 87.500 Physical ExamCardiovascular: normal heart soundsRespiratory: decreased breath soundsAbdomen: softExtremities: edemaNeuro/RN MATERNITY: alert Considered stroke alert: yes Diagnosis, Assessment PlanHospital course to date:57-year-old right-handed male with multiple risk factors as has diabetes diagnosed per patient since 2007 poorly controlled, hypertriglyceridemia, hypertension, history of multiple coronary artery disease status post CABG and PCI since 2009, history of peripheral artery disease, history of neuropathy chronic, history of left below the knee amputation last year due to to 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 Patient seen and examined overnight it was reported that the patient was agitated and aggressive.Patient received Ativan and may be a neuroleptic. Patient seen and examined as of 10/13/2022.Patient is much less agitated as compared to before.Good night sleep. I will continue the patient on Seroquel.It appears that the patient is known to have bipolar disorder however the Seroquel was never started during the course of hospitalization.Currently patient is doing well.There is no Arslan bed.Patient is eating and drinking appropriately.Plan to transfer the patient to rehab. I will discontinue the [place] bedSeroquel 25 mg in the morning 25 times 2 at night.Haldol 5 mg every 8 hours as needed.PT OT.Delirium management in acute care facility.Discussed with high risk case manager/nursing Patient seen and examined as of 10/11/2022.Remains a stable no drop in the hemoglobin.No complaints no pain no dizziness no headache.Awaiting placement CTA. 10/05/2022.Right internal carotid artery stenosis. thrombus at risk for further embolization. Evolving right middle cerebral artery distribution infarct without mass effect.Indeterminate right parotid lesions, for which otolaryngology consultation is recommended. All pertinant labs, Imaging, EKG, telemetry data,and medical records are reviewed by me personally. I have discussed the available findings, initial diagnosis and related differentials with the patient/day care center director including RN. All concerns and questions are answered to the best of my abilities based on theavailable data.I have initiated the plan of care based on preliminary diagnosis,requested appopriate consultations with labs/imagings. Patient/day care center director verbalizes understanding of the plan of care. at 1243 RPT #:[id number] OF REPORTPRProgress [id number]:41:[id number] Available for patient [id number]:43:50 [facility] 2022-10-12 13:58:00 [id number]+cutc93AHH wYVq ihpi1PIgdFet0NlUlwsOnBUl+[id number] 3:58:00 [facility]Hospital[facility] Progress NoteREPORT#:[id number] REPORT STATUS: SignedDATE:10/12/22 TIME: 1358 PATIENT: BRIGHT SALAZAR UNIT #: [id number]#: [id number] [address] [birth year] AGE: 57 SEX: M ATTEND: Yung Loomis [facility] AUTHOR: Jimmy Mark MD * ALL edits or amendments must be made on the electronic/computer document * SubjectiveChief complaint:Fell HeadachesHPI:This is a 57-year-old male with past medical history of diabetes hypertension CABG left BKA he was brought into the ER because he fell from the scooter he wason the scooter when he slipped and fell on the right side later at home he developed pain in the right chest and right side of the abdominal he was complaining of headache since 3 days which she never had it was right-sided throbbing he was also complaining of generalized weakness he also complains of redness in the left stump for which she they were supposed to prescribe an antibiotics denies any nausea vomiting diarrhea abdominal pain hematemesis melena blood in stool asking for more morphine's Objective GeneralVS/I O:Vital Signs: Date Time Temp Pulse Resp B/P B/P Pulse O2 O2 Flow FiO2 Mean Ox Delivery Rate 10/12 1125 97.9 98 17 133/67 88.8 94 10/12 0738 97.7 112 17 162/70 100.7 94 10/12 0432 98.2 105 17 161/87 111 92 Room air 10/12 0024 98.1 101 16 150/78 102.2 97 Room air 10/11 1919 97.9 96 16 122/77 92.0 93 Room air 10/11 1529 97.5 87 18 141/73 95.3 93 Room air PATIENT WEIGHT: Weight (lb): 192Weight (oz): 14.47Weight (kg): 87.500 Physical ExamCardiovascular: normal heart soundsRespiratory: decreased breath soundsAbdomen: softExtremities: edemaNeuro/RN MATERNITY: alert Considered stroke alert: yes Diagnosis, Assessment PlanHospital course to date:57-year-old right-handed male with multiple risk factors as has diabetes diagnosed per patient since 2007 poorly controlled, hypertriglyceridemia, hypertension, history of multiple coronary artery disease status post CABG and PCI since 2009, history of peripheral artery disease, history of neuropathy chronic, history of left below the knee amputation last year due to to 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 Patient seen and examined overnight it was reported that the patient was agitated and aggressive.Patient received Ativan and may be a neuroleptic. I will discontinue the Arslan bedSeroquel 25 mg in the morning 25 times 2 at night.Haldol 5 mg every 8 hours as needed.PT OT.Delirium management in acute care facility.Discussed with high risk case manager/nursing Patient seen and examined as of 10/11/2022.Remains a stable no drop in the hemoglobin.No complaints no pain no dizziness no headache.Awaiting placement CTA. 10/05/2022.Right internal carotid artery stenosis. thrombus at risk for further embolization. Evolving right middle cerebral artery distribution infarct without mass effect.Indeterminate right parotid lesions, for which otolaryngology consultation is recommended. In acute ischemic stroke, when the ischemic penumbra may be at risk of irreversible damage if cerebral blood flow is reduced by lowering the blood pressure. Many Trials trial found no clear benefit for blood pressure lowering within 12 hours of acute ischemic stroke onset, but an adjusted analysis suggested that a goal systolic blood pressure of 161 to 180 mmHg increased the odds of a good outcome compared with higher or lower goal blood pressures Patient seen and examined.No further deterioration of the neurological symptoms.Continue to care current management, physical therapy occupational therapy, speech therapy.Feedings if the patient can tolerate.We will keep the hemodynamic measures as well Seen and examined as of 10/07/2022.Patient will be optimized for carotid endarterectomy which is scheduled later this week. -Patient post TPA maintain BP between 161-180 in first 24 hours.-Plan to initiate cardene drip if BP is higher then 180mmHg.-Restart antihypertensive medications during hospitalization for patients with blood pressure >140/90 mmHg who are neurologically stable-Treat hypertension before and during reperfusion therapy for acute ischemic stroke.reperfusion therapy except that blood pressure is >185/110 mmHgLabetalol 10 to 20 mg intravenously over 1 to 2 minutes, may repeat one time; Nicardipine 5 mg/hour intravenously, titrate up by 2.5 mg/hour every 5 to 15 minutes, maximum 15 mg/hour.Antithrombotic therapy with aspirin initiated within 48 hours of stroke onset "Early antithrombotic treatment of acute ischemic stroke and transient ischemic attack limited mobility, we plan to use Lovenox 40 mg daily, or heparin?Prophylaxis for deep venous thrombosis and pulmonary embolism. VTE prophylaxis for select patients within 48 hours of acute ischemic stroke onset who have restricted mobility, TIA can be done through?Antithrombotic therapy at discharge if A fib is present?Lipid lowering with high intensity statin therapy ?Blood pressure reduction after the acute phase of ischemic stroke has passed ?Behavioral and lifestyle changes including smoking cessation, exercise, weight reduction for patients with obesity, and a Mediterranean style diet.-Repeat CT scan in 48 hours. MRI/MRA/MRV (if suspected Venous thrombosis -Neuro checks Q 1 hour. Respiratory Rate, HR, Pulse (dopplers) Core Temprature.Maintain MAP >65mmHg or SBP>90mmHgUse Crystalloids/ NS @30ml/kg to maintain adequate perfusion in sepsis.Circulatory Shock: Fluids,Pressors, prefer Levophed and titrate to keep Sr lactate less then 1mmol/LPlan to Keep CVP between 8-12mHg after CVC placement. PaO2 >60mmhg or ScVo2 >70%if CVC is presentPlan TTE: Evaluate for CO. LVEF, WMA, RVSP, Valve functions and Intracardiac Shunt.Maintain SaO2>90%, Titrate to minimize Wqi1QkO4 <60mmHg DuoNebs with empiric antibiotics with inhaled and systemic steroids in COPD patient with flare.Urine Output : Maintain urine output: 0.5-1.5mL/kg/hrIf Urine Output is decreased <500ml/day or anuria, plan to start IV fluids, UA with cultures, bladder scan, placement of Juan's Catheter. Avoidnephrotoxins, retroperitoneal US, nephrology consult as indicated.CBC, CMP, ABG, and Daily X ray as indicated. Surgical plan.Right carotid endarterectomy next week.Continue the patient on heparinAspirin can be given to the patient. No Plavix.Fall precautionSeizure precautionSpeech speech and swallow evaluationKeep the patient n.p.o. for Patient doing well after carotid endarterectomy. Not transferred to the neuro floor. Patient is awaiting rehab. Time spent greater than 35 minutes at 1400 RPT #:[id number] OF REPORTPRProgress [id number]:58:[id number] Available for patient [id number]:00:[address] [facility] 2022-10-12 11:23:00 [id number] ZyNM [id number]/[id number] 1:23:00 [facility] ([facility])Rehab Preadmission ScreenREPORT#: REPORT STATUS:DATE:10/12/22 TIME: 1123 PATIENT: BRIGHT SALAZAR UNIT #: ROOM: BED:: 65 AGE: 57 SEX: M ATTEND: Flako Elias MDPROJECTED ADM AUTHOR: Peter Stephenson MDREP SRV REP SRV TM: 1123* ALL edits or amendments must be made on the electronic/computer document * IRF Preadmission Screen Information From [facility] PASCRS PAS documentation:The data set between the solid lines has been imported from CRS PAS documentation. PREADMISSION INFORMATION: DEMOGRAPHICS: Assessment date: 10/10/22Assessment time: 1054Patient has an Advanced Directive: NoContent of advance directive/living will/plan of care: Copy of advance directive on chart: Referring physician: Yung Loomis MD Primary care provider: None on file Consulting physician(s): John Hammond- Neurology Shayla Hester- Critical care Melinda Loomis- hospitalist Shayla Kern- Cardiac surgery Referral contact name: Joel Gibbs contact number: [phone] [phone] IMPAIRMENT GROUP: Impairment group: Stroke left body right brain Etiologic diagnosis: Acute right ischemic stroke REVIEW OF MED CONDITIONS: Date of onset: 10/04/22Current surgery date and type: 10/08/22: Right carotid endarterectomy with bovine pericardial patch angioplasty.Active comorbid conditions: R CCA/ICA stenosis with , superimposed thrombus, L BKA stump wound, Diabetic hyperglycemia, Hypertension, CAD, Tobacco dependence ,L pleurisy , LeukocytosisPast medical and surgical history: DM, HTN, L BKA, CAD, HLD, HTN, GERD, CABG, Tobacco dependence Had major surgery within 100 days of admission: YesRisk for medical/clinical complications: Anemia, Arrhythmia, BP fluctuation, Cardiac instability, Constipation, DVT, Depression, Electrolyte imbalance, Hypoxia, Incisional dehiscence, Infection, Injury d/t falls, Blood sugar fluctuation, Nutritional compromise, Pain, Skin breakdownAcute hospital stay summary: This patient is a 57 year old male with a prior medical history of diabetes, hypertension, and left BKA who admitted to the ED at [facility] on 10/04/22 with complaints of right sided flankpain after a fall from his scooter. He also complained of a headache for 3 days associated with weakness and a throbbing sensation in his right temporal lobe. [place] CT revealed a right MCA CVA. Neurology was consulted and ordered vascular imaging, MRI, and echo due to suspected embolic etiology. He was started on ezetimibe, aspirin, and Plavix. Vascular imaging revealed a large thrombus in the right internal carotid artery, however no intervention was recommended because the stroke occurred two days prior, therefore he was transferred to ICU and started on a Heparin drip with plans for a carotid endarterectomy. On 10/08/22/ he underwent a right CEA with bovine patch arthroplasty by Dr. Kern. His hospital course was further complicated by left pleurisy and a left BKA stump wound for which wound care has been consulted. He requires ongoing medical management of diabetes, hypertension, and anticoagulation after stroke. At baseline, he lives alone in a single story house where he is mod I for ADL and mobility using a knee scooter. Currently, he requires min assist for transfers and max assist for ADL, with gait assessment pending. He is able, willing, and motivated to participate in 3 hours of therapy, 5 days per week, with a goal of returning home at his prior level of function. PREADMIT VITALS: Date/Time 10/10/22 0706 10/12/22 0738 Temp F Temp C 36.8 36.5 Pulse 92 112 RR 14 17 BP 156/76 162/70 SPO2% 90 94 Ht ft 6 Ht in 0 Wt lbs 193.000 BMI 26.2 SUPPORTING DIAGNOSTICS/LABS/RADIOLOGY/CARDIOLOGY: Date: 10/10/22 10/12/22 WBC: 14.5 12.5 HGB: 13.7 13.7 HCT: 37.1 40.4 Ca: 8.6 Na: 135 133 K+: 3.8 3.8 Glu: 104 145 M.7 BUN: 18 13 Creat: .67 .76 Tot protein: Alb: PTT: PT: INR: PLT: Additional labs: Cultures: Imaging: Brain CT 10/04/22: 1. Loss of shaw-white matter differentiation and a large area at the right parietal lobe concerning for cerebral infarction.2. No acute fracture or malalignment of the cervical spine. 3. Multilevel degenerative changes of the cervical spine. CTA 10/05/22: Right internal carotid artery stenosis. thrombus at risk for further embolization. Evolving right middle cerebral artery distribution infarct without mass effect. Indeterminate right parotid lesions, for which otolaryngology consultation is recommended. Brain MRI 10/07/22: 1. Acute/early subacute ischemic infarct in involving the right parietal and temporal lobes and insular cortex. Small punctate petechial blood products are noted within the right parietal cortex. No large hemorrhagic transformation is seen. 2. Chronic small vessel ischemic white matter disease. 3. Partly visualized lesions within the right parotid gland, better visualized on recent CT of the neck. Surgical consultation recommended.Other supporting diagnostics: RESPIRATORY STATUS: Respiratory treatments: NebulizerO2 liters per minute: Respiratory status: Nebulizer Q4H PRN NEUROLOGIC STATUS: Neurologic status: Alert, Oriented to person, Oriented to place, Oriented to time, Oriented to situationPatient's mood and behavior: AppropriateHand dominance: Right BOWEL/BLADDER: Continent of bladder for developmental age: NoNumber of bladder accidents in last 48 hours: 5Catheter type: Insertion date: Bladder aids: Bladder comment: Continent of bowel for developmental age: YesNumber of bowel accidents in last 48 hours: Date of last BM: Colostomy: Ileostomy: Bowel aids: DulcolaxBowel comment: SKIN: Skin alteration: Present/Exists SKIN ALTERATION 1: Type: Surgical woundLocation: NeckStage: Description: Dressing C/D/I per mechanical designer SKIN ALTERATION 2: Type: WoundLocation: Leg left lowerStage: Description: Blanched dull skin, per wound care note incision did not close. covered with honey dressing and foam. SKIN ALTERATION 3: Type: Location: Stage: Description: SKIN ALTERATION 4: Type: Location: Stage: Description: EATING/NUTRITIONAL: Nutritional intake: PO regular food, PO thin liquids, cardiac dietEating compensatory strategies: Medication administration: IV, Medications whole, Subcutaneous REHAB NEEDS: Special rehabilitation needs: IV/PICC/CVC, Respiratory therapySpecial rehabilitation precautions: Safety/fallRehabilitation precaution detail: Fall risk due to L BKA and new onset weakness after CVA FUNCTIONAL ASSESSMENT: FUNC. TASK PRIOR LOF CURRENT LOF EXPECTED LOFBathing Independent Substantial/max asst IndependentU.B. Dressing Independent Supervise/touch asst IndependentL.B. Dressing Independent Substantial/max asst IndependentBed/Ch Transf. Independent Supervise/touch asst IndependentToilet Transfer Independent Supervise/touch asst IndependentStairs Partial/moderate Total assistance Partial/moderate asst asstLocomotion Independent Total assistance Independent Locomotion prior device use: ScooterDescription of prior level of locomotion: Mod I using Knee scooterLocomotion current device: NoneLocomotion current distance traveled without a rest break: 0 ft Description of current level of locomotion: gait not performed Min assist for sit to stand, decreased balance in standing Description of expected level of locomotion: Will require adaptive device upon discharge Language and Cognition: Alert and orietned x 4 Add'l functional comment: Patient is limited by weakness, decreased balance, and pain. Prior device use: ScooterPrior device use additional information: PRE-HOSPITAL: Pre-hospital services utilized: NoneOccupation/Profession: RetiredEducation history: Return to work/school plan: Marital status: Never marriedHobbies/leisure activities: Prior living situation: HomeLiving with: AloneLiving with comment: ANTICIPATED DC PLAN/POST IRF: Primary support contact: Diamond Enriquezhip to patient: Phone number 1: [phone] number 2: Caregiver availability: NoneCaregiver can provide: Patient/caregiver goals/preferences: Return home at prior level of functionExpected discharge destination: HomeExpected discharge physical layout: One storyNumber of external stairs: Number of internal stairs: Railing details: Grab bars location: Barriers to discharge: Caregiver supportOptions discussed with patient: YesOptions discussed with caregiver: Patient agrees with program requirements: Yes ACTIVITY TOLERANCE: Current treatment interventions: Occupational therapy, Physical therapy, Respiratory therapyPatient able to tolerate 3 hours of therapy a day: YesPatient able to tolerate 15 hours of therapy a week: Altered therapy schedule comment: ACUTE INPATIENT REHAB PLAN: Estimated length of stay in days: 14Anticipated services in acute inpatient rehab: Rehab nursing 30/12, first assistant manager,Occupational therapy, Physical therapy, [facility] reviewed prior to admission decision: Acute History/Physical, Consult notes, Operative reports, Progress notes, Lab/diagnostics, Therapy notes, Vital signs, Other ancillary notes CRS ELECTRONIC SIGNATURE: TARSHA #1 electronic signature: Peg Campbell credentials: OTRDate: 10/10/22Time: 1120 CRS #2 electronic signature: Kathryn Valles credentials: STDate: 10/12/22Time: 0904 CRS #3 electronic signature: TARSHA credentials: Date: Time: Provider Pre-Admit SummaryAcute IP rehab admit: criteria metMD determinationBased upon my evaluation and review of the supporting assessment documentation and consultation with the preadmission sandblaster stone, I have determined, prior to admitting this patient, that there is reasonable expectation that at the time of admission to the IRF, the patient's medical management and rehabilitation needs require an inpatient stay and close physician involvement. Patient can be expected to actively participate in, and benefit from, and intensive rehab therapy program whose intensity is not provided in lower levels of care. Significant barriers that can only be addressed in an acute inpatient rehab program, including, but not limited to: Complex acute rehab needs: Custom therapy tx plan, Mgt of complex Co-morb, Neurointerdisc tx, Med adjustment/mgmt., New medical diagnosis, New medical complication, Nutritional compromise, Hospitalist consult, VTE Risk at 1126 RPT #:[id number] OF REPORTCLClinical [id number]:23:[id number] Available for patient [id number]:27:[address] [facility] 2022-10-11 13:49:00 [id number] [id number] 3:49:00 [facility]Hospital[facility] Progress NoteREPORT#:[id number] REPORT STATUS: SignedDATE:10/11/22 TIME: 1349 PATIENT: BRIGHT SALAZAR UNIT #: [id number]#: [id number] [address] AGE: 57 SEX: M ATTEND: Yung Loomis [facility] AUTHOR: Jimmy Mark MD * ALL edits or amendments must be made on the electronic/computer document * SubjectiveChief complaint:Fell HeadachesHPI:This is a 57-year-old male with past medical history of diabetes hypertension CABG left BKA he was brought into the ER because he fell from the scooter he wason the scooter when he slipped and fell on the right side later at home he developed pain in the right chest and right side of the abdominal he was complaining of headache since 3 days which she never had it was right-sided throbbing he was also complaining of generalized weakness he also complains of redness in the left stump for which she they were supposed to prescribe an antibiotics denies any nausea vomiting diarrhea abdominal pain hematemesis melena blood in stool asking for more morphine's Objective GeneralVS/I O:Vital Signs: Date Time Temp Pulse Resp B/P B/P Pulse O2 O2 Flow FiO2 Mean Ox Delivery Rate 10/11 1119 97.9 77 18 147/79 101.6 95 Room air 05/ 0718 97.7 92 18 173/90 117.9 92 Room air / 0427 98.4 97 16 136/70 92.0 90 Room air 10/11 0152 95 Room air 21 10/11 0013 98.1 94 15 156/71 99.5 95 Room air 05/ 1940 98.1 87 16 120/88 98.3 95 Room air 05/04 1505 98.2 75 14 139/71 93.8 94 Room air / 1454 95 Room air 0 24 hour I O ending at 0700: 10/11 0700 05/ 1900 Intake Total Output Total 400 800 Balance -400 -800 Number Voids 2 Output, Urine 400 800 PATIENT WEIGHT: Weight (lb): 192Weight (oz): 14.47Weight (kg): 87.500 Medications:Active Meds + DC'd Last 24 HrsClopidogrel Bisulfate (PLAVIX) 75 MG DAILY PO Heparin Sodium (HEPARIN) 5,000 UNIT Q8HR SUBQ Benzocaine/Menthol (Sore Throat Lozenge) 1 LOZENGE Q2H PRN PRN MM Dextrose/Water (DEXTROSE 50%-WATER) 25 ML ASDIR PRN IV (CKD) Glucagon (GLUCAGON) 1 MG ASDIR PRN IM Glucose Polymer (GLUTOSE) 15 GM ASDIR PRN PO Phenol (CHLORASEPTIC 177 ML) 1 SPRAY Q2H PRN PRN TOPICAL Aspirin (ASPIRIN) 81 MG DAILY PO Cyclobenzaprine HCl (FLEXERIL) 10 MG TID PRN PRN PO Ezetimibe (ZETIA) 10 MG BEDTIME PO Lidocaine (LIDODERM PATCH) 1 PATCH BEDTIME TRANSDERM Gabapentin (NEURONTIN) 300 MG TID PO Sodium Chloride (NORMAL SALINE 250 ML) 250 ML BOLUS PRN IV Metoprolol Tartrate (LOPRESSOR) 50 MG DAILY PO Insulin Human NPH (HumuLIN N) 35 UNIT BID MEALS SUBQ Insulin Human Regular (HumuLIN R) 10 UNIT AC SUBQ Ceftriaxone Sodium (ROCEPHIN) 1 GM Q24H IV Sterile Water (STERILE WATER) 10 MLZolpidem Tartrate (AMBIEN) 10 MG BEDTIME PO Acetaminophen (TYLENOL) 650 MG Q4H PRN PRN PO Acetaminophen (TYLENOL) 650 MG Q6H PRN PRN RECTAL Al Hydrox/Mg Hydrox/Simethicone (MAALOX PLUS) 30 ML Q4H PRN PRN PO Albuterol/Ipratropium (DUONEB 2.5-0.5MG/3ML SOLN) 3 ML RTQ4H PRN PRN NEB Bisacodyl (DULCOLAX) 10 MG DAILY PRN PRN PO Calcium Carbonate (TUMS) 1,000 MG DAILY PRN PRN PO Clonidine HCl (CATAPRES) 0.1 MG Q6H PRN PRN PO Dextrose/Water (DEXTROSE 50%-WATER) 25 ML ASDIR PRN IV (CKD) Glucagon (GLUCAGON) 1 MG ASDIR PRN IM Glucose Polymer (GLUTOSE) 15 GM ASDIR PRN PO Guaifenesin/Dextromethorphan (ROBITUSSIN-DM) 10 ML QID PRN PRN PO Hydrocodone Bitart/Acetaminophen (NORCO 5/325 TABLET) 1 TAB Q4H PRN PRN PO Hydrocodone Bitart/Acetaminophen (NORCO 10/325 TABLET) 1 TAB Q4H PRN PRN PO Insulin Human Lispro (HUMALOG) See Admin Criteria ASDIR PRN SUBQ Magnesium Sulfate/Dextrose (MAGNESIUM SULFATE 1GM/D5W 100ML) 100 ML DAILY PRN PRN IV Morphine Sulfate (morphine PF SYRINGE) 2 MG Q4H PRN PRN IV Nitroglycerin (NITROSTAT) 0.4 MG Q5M PRN PRN SL Ondansetron HCl (ZOFRAN) 4 MG Q4H PRN PRN IV Potassium Chloride (K-DUR) 40 MEQ DAILY PRN PRN PO Potassium Phos/Sodium Phos (PHOS-NAK PACKET) 2 PKT DAILY PRN PRN PO (CKD) Senna (SENOKOT) 1 TAB DAILY PRN PRN PO (CKD) Simethicone (MYLICON) 160 MG Q6H PRN PRN PO Sodium Chloride (NORMAL SALINE 250 ML) 250 ML BOLUS PRN IV Trazodone HCl (DESYREL) 50 MG BEDTIME PRN PRN PO Lactated Ringer's (LACTATED RINGERS) 1,000 ML X1ED STA IV Physical ExamCardiovascular: normal heart soundsRespiratory: decreased breath soundsAbdomen: softExtremities: edemaNeuro/RN MATERNITY: alert Considered stroke alert: yes Diagnosis, Assessment PlanHospital course to date:57-year-old right-handed male with multiple risk factors as has diabetes diagnosed per patient since 2007 poorly controlled, hypertriglyceridemia, hypertension, history of multiple coronary artery disease status post CABG and PCI since 2009, history of peripheral artery disease, history of neuropathy chronic, history of left below the knee amputation last year due to to 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 Patient seen and examined as of 10/11/2022.Remains a stable no drop in the hemoglobin.No complaints no pain no dizziness no headache.Awaiting placement CTA. 10/05/2022.Right internal carotid artery stenosis. thrombus at risk for further embolization. Evolving right middle cerebral artery distribution infarct without mass effect.Indeterminate right parotid lesions, for which otolaryngology consultation is recommended. In acute ischemic stroke, when the ischemic penumbra may be at risk of irreversible damage if cerebral blood flow is reduced by lowering the blood pressure. Many Trials trial found no clear benefit for blood pressure lowering within 12 hours of acute ischemic stroke onset, but an adjusted analysis suggested that a goal systolic blood pressure of 161 to 180 mmHg increased the odds of a good outcome compared with higher or lower goal blood pressures Patient seen and examined.No further deterioration of the neurological symptoms.Continue to care current management, physical therapy occupational therapy, speech therapy.Feedings if the patient can tolerate.We will keep the hemodynamic measures as well Seen and examined as of 10/07/2022.Patient will be optimized for carotid endarterectomy which is scheduled later this week. -Patient post TPA maintain BP between 161-180 in first 24 hours.-Plan to initiate cardene drip if BP is higher then 180mmHg.-Restart antihypertensive medications during hospitalization for patients with blood pressure >140/90 mmHg who are neurologically stable-Treat hypertension before and during reperfusion therapy for acute ischemic stroke.reperfusion therapy except that blood pressure is >185/110 mmHgLabetalol 10 to 20 mg intravenously over 1 to 2 minutes, may repeat one time; Nicardipine 5 mg/hour intravenously, titrate up by 2.5 mg/hour every 5 to 15 minutes, maximum 15 mg/hour.Antithrombotic therapy with aspirin initiated within 48 hours of stroke onset "Early antithrombotic treatment of acute ischemic stroke and transient ischemic attack limited mobility, we plan to use Lovenox 40 mg daily, or heparin?Prophylaxis for deep venous thrombosis and pulmonary embolism. VTE prophylaxis for select patients within 48 hours of acute ischemic stroke onset who have restricted mobility, TIA can be done through?Antithrombotic therapy at discharge if A fib is present?Lipid lowering with high intensity statin therapy ?Blood pressure reduction after the acute phase of ischemic stroke has passed ?Behavioral and lifestyle changes including smoking cessation, exercise, weight reduction for patients with obesity, and a Mediterranean style diet.-Repeat CT scan in 48 hours. MRI/MRA/MRV (if suspected Venous thrombosis -Neuro checks Q 1 hour. Respiratory Rate, HR, Pulse (dopplers) Core Temprature.Maintain MAP >65mmHg or SBP>90mmHgUse Crystalloids/ NS @30ml/kg to maintain adequate perfusion in sepsis.Circulatory Shock: Fluids,Pressors, prefer Levophed and titrate to keep Sr lactate less then 1mmol/LPlan to Keep CVP between 8-12mHg after CVC placement. PaO2 >60mmhg or ScVo2 >70%if CVC is presentPlan TTE: Evaluate for CO. LVEF, WMA, RVSP, Valve functions and Intracardiac Shunt.Maintain SaO2>90%, Titrate to minimize [id number] <60mmHg DuoNebs with empiric antibiotics with inhaled and systemic steroids in COPD patient with flare.Urine Output : Maintain urine output: 0.5-1.5mL/kg/hrIf Urine Output is decreased <500ml/day or anuria, plan to start IV fluids, UA with cultures, bladder scan, placement of Juan's Catheter. Avoidnephrotoxins, retroperitoneal US, nephrology consult as indicated.CBC, CMP, ABG, and Daily X ray as indicated. Surgical plan.Right carotid endarterectomy next week.Continue the patient on heparinAspirin can be given to the patient. No Plavix.Fall precautionSeizure precautionSpeech speech and swallow evaluationKeep the patient n.p.o. for Patient doing well after carotid endarterectomy. Not transferred to the neuro floor. Patient is awaiting rehab. Time spent greater than 35 minutes at 1351 RPT #:[id number] OF REPORTPRProgress [id number]:49:[id number] Available for patient [id number]:52:[address] [facility] 2022-10-10 21:50:00 [id number] 1:50:00 [facility] CenterHospital[facility] Progress NoteREPORT#:[id number] REPORT STATUS: SignedDATE:10/10/22 TIME: 2149 PATIENT: BRIGHT SALAZAR UNIT #: [id number]#: [id number] [address] [birth year] AGE: 57 SEX: M ATTEND: Yung Loomis MDADM AUTHOR: Yung Loomis MD * ALL edits or amendments must be made on the electronic/computer document * SubjectiveChief complaint:Fell HeadachesHPI:This is a 57-year-old male with past medical history of diabetes hypertension CABG left BKA he was brought into the ER because he fell from the scooter he wason the scooter when he slipped and fell on the right side later at home he developed pain in the right chest and right side of the abdominal he was complaining of headache since 3 days which she never had it was right-sided throbbing he was also complaining of generalized weakness he also complains of redness in the left stump for which she they were supposed to prescribe an antibiotics denies any nausea vomiting diarrhea abdominal pain hematemesis melena blood in stool asking for more morphine's Objective Physical ExamCardiovascular: normal heart soundsRespiratory: decreased breath soundsAbdomen: softExtremities: edemaNeuro/RN MATERNITY: alert Considered stroke alert: yes Diagnosis, Assessment PlanHospital course to date:57-year-old right-handed male with multiple risk factors as has diabetes diagnosed per patient since 2007 poorly controlled, hypertriglyceridemia, hypertension, history of multiple coronary artery disease status post CABG and PCI since 2009, history of peripheral artery disease, history of neuropathy chronic, history of left below the knee amputation last year due to to 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 CTA. 10/05/2022.Right internal carotid artery stenosis. thrombus at risk for further embolization. Evolving right middle cerebral artery distribution infarct without mass effect.Indeterminate right parotid lesions, for which otolaryngology consultation is recommended. In acute ischemic stroke, when the ischemic penumbra may be at risk of irreversible damage if cerebral blood flow is reduced by lowering the blood pressure. Many Trials trial found no clear benefit for blood pressure lowering within 12 hours of acute ischemic stroke onset, but an adjusted analysis suggested that a goal systolic blood pressure of 161 to 180 mmHg increased the odds of a good outcome compared with higher or lower goal blood pressures Patient seen and examined.No further deterioration of the neurological symptoms.Continue to care current management, physical therapy occupational therapy, speech therapy.Feedings if the patient can tolerate.We will keep the hemodynamic measures as well Seen and examined as of 10/07/2022.Patient will be optimized for carotid endarterectomy which is scheduled later this week. -Patient post TPA maintain BP between 161-180 in first 24 hours.-Plan to initiate cardene drip if BP is higher then 180mmHg.-Restart antihypertensive medications during hospitalization for patients with blood pressure >140/90 mmHg who are neurologically stable-Treat hypertension before and during reperfusion therapy for acute ischemic stroke.reperfusion therapy except that blood pressure is >185/110 mmHgLabetalol 10 to 20 mg intravenously over 1 to 2 minutes, may repeat one time; Nicardipine 5 mg/hour intravenously, titrate up by 2.5 mg/hour every 5 to 15 minutes, maximum 15 mg/hour.Antithrombotic therapy with aspirin initiated within 48 hours of stroke onset "Early antithrombotic treatment of acute ischemic stroke and transient ischemic attack limited mobility, we plan to use Lovenox 40 mg daily, or heparin?Prophylaxis for deep venous thrombosis and pulmonary embolism. VTE prophylaxis for select patients within 48 hours of acute ischemic stroke onset who have restricted mobility, TIA can be done through?Antithrombotic therapy at discharge if A fib is present?Lipid lowering with high intensity statin therapy ?Blood pressure reduction after the acute phase of ischemic stroke has passed ?Behavioral and lifestyle changes including smoking cessation, exercise, weight reduction for patients with obesity, and a Mediterranean style diet.-Repeat CT scan in 48 hours. MRI/MRA/MRV (if suspected Venous thrombosis -Neuro checks Q 1 hour. Respiratory Rate, HR, Pulse (dopplers) Core Temprature.Maintain MAP >65mmHg or SBP>90mmHgUse Crystalloids/ NS @30ml/kg to maintain adequate perfusion in sepsis.Circulatory Shock: Fluids,Pressors, prefer Levophed and titrate to keep Sr lactate less then 1mmol/LPlan to Keep CVP between 8-12mHg after CVC placement. PaO2 >60mmhg or ScVo2 >70%if CVC is presentPlan TTE: Evaluate for CO. LVEF, WMA, RVSP, Valve functions and Intracardiac Shunt.Maintain SaO2>90%, Titrate to minimize [id number] <60mmHg DuoNebs with empiric antibiotics with inhaled and systemic steroids in COPD patient with flare.Urine Output : Maintain urine output: 0.5-1.5mL/kg/hrIf Urine Output is decreased <500ml/day or anuria, plan to start IV fluids, UA with cultures, bladder scan, placement of Juan's Catheter. Avoidnephrotoxins, retroperitoneal US, nephrology consult as indicated.CBC, CMP, ABG, and Daily X ray as indicated. Surgical plan.Right carotid endarterectomy next week.Continue the patient on heparinAspirin can be given to the patient. No Plavix.Fall precautionSeizure precautionSpeech speech and swallow evaluationKeep the patient n.p.o. for ICU Core Measures Appropriate Labs/Imaging/Consultations: ReviewedAppropriate Peptic Ulcer Disease Prophylasix: ReviewedAppropriate Deep Venous Thrombosis Prophylasix: ReviewedVentilator Associated Pneumonia Prevention: ReviewedCentral Line,Associated Blood Stream Infection/Indwelling Juan Days: ReviewedAppropriate Sedation: ReviewedNeutritional Evaluation: ReviewedCentral Line-Associated Blood Stream Infection: ReviewedICU LOS/GMLOS: ReviewedAppropriate Plan of Care Discussed with Family Service Assistant TeamSAT/SBT Protocols: Reviewed for the PatientAppropriate Pain Scale By BPS/CPOT: ReviewedRASS, GCS and Delirium Severity Scale: AccessedDiscussion About Transfer/Discharge/Fvv-es-yxlk-care: Reviewed All pertinant labs, Imaging, EKG, telemetry data,and medical records are reviewed by me personally. I have discussed the available findings, initial diagnosis and related differentials with the patient/day care center director including RN. All concerns and questions are answered to the best of my abilities based on theavailable data.I have initiated the plan of care based on preliminary diagnosis,requested appopriate consultations with labs/imagings. Patient/day care center director verbalizes understanding of the plan of care. Plan discussed and agreed with the patient Problem List/A P: 1. Diabetes 2. Hyperglycemia 3. Diabetic foot infection 4. CAD (coronary artery disease) 5. GERD (gastroesophageal reflux disease) Consultants: cardiovascular surgery, critical/industrial tractor driver, hospitalist, neurology Free Text DxA P NotesFree text DxA P notes:57-year-old right-handed male with multiple risk factors as has diabetes diagnosed per patient since 2007 poorly controlled, hypertriglyceridemia, hypertension, history of multiple coronary artery disease status post CABG and PCI since 2009, history of peripheral artery disease, history of neuropathy chronic, history of left below the knee amputation last year due to to 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 CTA. 10/05/2022.Right internal carotid artery stenosis. thrombus at risk for further embolization. Evolving right middle cerebral artery distribution infarct without mass effect.Indeterminate right parotid lesions, for which otolaryngology consultation is recommended. In acute ischemic stroke, when the ischemic penumbra may be at risk of irreversible damage if cerebral blood flow is reduced by lowering the blood pressure. Many Trials trial found no clear benefit for blood pressure lowering within 12 hours of acute ischemic stroke onset, but an adjusted analysis suggested that a goal systolic blood pressure of 161 to 180 mmHg increased the odds of a good outcome compared with higher or lower goal blood pressures -Patient post TPA maintain BP between 161-180 in first 24 hours.-Plan to initiate cardene drip if BP is higher then 180mmHg.-Restart antihypertensive medications during hospitalization for patients with blood pressure >140/90 mmHg who are neurologically stable-Treat hypertension before and during reperfusion therapy for acute ischemic stroke.reperfusion therapy except that blood pressure is >185/110 mmHgLabetalol 10 to 20 mg intravenously over 1 to 2 minutes, may repeat one time; Nicardipine 5 mg/hour intravenously, titrate up by 2.5 mg/hour every 5 to 15 minutes, maximum 15 mg/hour.Antithrombotic therapy with aspirin initiated within 48 hours of stroke onset "Early antithrombotic treatment of acute ischemic stroke and transient ischemic attack limited mobility, we plan to use Lovenox 40 mg daily, or heparin?Prophylaxis for deep venous thrombosis and pulmonary embolism. VTE prophylaxis for select patients within 48 hours of acute ischemic stroke onset who have restricted mobility, TIA can be done through?Antithrombotic therapy at discharge if A fib is present?Lipid lowering with high intensity statin therapy ?Blood pressure reduction after the acute phase of ischemic stroke has passed ?Behavioral and lifestyle changes including smoking cessation, exercise, weight reduction for patients with obesity, and a Mediterranean style diet.-Repeat CT scan in 48 hours. MRI/MRA/MRV (if suspected Venous thrombosis -Neuro checks Q 1 hour. Respiratory Rate, HR, Pulse (dopplers) Core Temprature.Maintain MAP >65mmHg or SBP>90mmHgUse Crystalloids/ NS @30ml/kg to maintain adequate perfusion in sepsis.Circulatory Shock: Fluids,Pressors, prefer Levophed and titrate to keep Sr lactate less then 1mmol/LPlan to Keep CVP between 8-12mHg after CVC placement. PaO2 >60mmhg or ScVo2 >70%if CVC is presentPlan TTE: Evaluate for CO. LVEF, WMA, RVSP, Valve functions and Intracardiac Shunt.Maintain SaO2>90%, Titrate to minimize [id number] <60mmHg DuoNebs with empiric antibiotics with inhaled and systemic steroids in COPD patient with flare.Urine Output : Maintain urine output: 0.5-1.5mL/kg/hrIf Urine Output is decreased <500ml/day or anuria, plan to start IV fluids, UA with cultures, bladder scan, placement of Juan's Catheter. Avoidnephrotoxins, retroperitoneal US, nephrology consult as indicated.CBC, CMP, ABG, and Daily X ray as indicated. Surgical plan.Right carotid endarterectomy next week.Continue the patient on heparinAspirin can be given to the patient. No Plavix.Fall precautionSeizure precautionSpeech speech and swallow evaluationKeep the patient n.p.o. for ICU Core Measures Appropriate Labs/Imaging/Consultations: ReviewedAppropriate Peptic Ulcer Disease Prophylasix: ReviewedAppropriate Deep Venous Thrombosis Prophylasix: ReviewedVentilator Associated Pneumonia Prevention: ReviewedCentral Line,Associated Blood Stream Infection/Indwelling Juan Days: ReviewedAppropriate Sedation: ReviewedNeutritional Evaluation: ReviewedCentral Line-Associated Blood Stream Infection: ReviewedICU LOS/GMLOS: ReviewedAppropriate Plan of Care Discussed with Family Service Assistant TeamSAT/SBT Protocols: Reviewed for the PatientAppropriate Pain Scale By BPS/CPOT: ReviewedRASS, GCS and Delirium Severity Scale: AccessedDiscussion About Transfer/Discharge/Ijl-qd-hxaj-care: Reviewed Disposition: Patient can discharge once placement at inpatient rehab has been arranged. Consultants: cardiovascular surgery, critical/industrial tractor driver, hospitalist, neurology at [address] #:[id number] OF REPORTPRProgress [id number] Available for patient [id number]:51:[address] [facility] 2022-10-10 11:44:00 [id number] 1:44:00 [facility] ([facility])Rehab Preadmission ScreenREPORT#: REPORT STATUS:DATE:10/10/22 TIME: 1144 PATIENT: BRIGHT SALAZAR UNIT #: ROOM: BED:: 65 AGE: 57 SEX: M ATTEND: Flako Elias MDPROJECTED ADM AUTHOR: Flako Elias MDREP SRV REP SRV TM: 1144* ALL edits or amendments must be made on the electronic/computer document * IRF Preadmission Screen Information From [facility] PAS documentation:The data set between the solid lines has been imported from [facility] PAS documentation. PREADMISSION INFORMATION: DEMOGRAPHICS: Assessment date: 10/10/22Assessment time: 1054Patient has an Advanced Directive: NoContent of advance directive/living will/plan of care: Copy of advance directive on chart: Referring physician: Yung Loomis MD Primary care provider: None on file Consulting physician(s): John Hammond- Neurology Kacie, Shayla- Critical care Melinda Loomis- hospitalist Erlin S- Cardiac surgery Referral contact name: Joel Gibbs contact number: [phone] [facility]Room number: 278 IMPAIRMENT GROUP: Impairment group: Stroke left body right brain Etiologic diagnosis: Acute right ischemic stroke REVIEW OF MED CONDITIONS: Date of onset: 10/04/22Current surgery date and type: 10/08/22: Right carotid endarterectomy with bovine pericardial patch angioplasty.Active comorbid conditions: R CCA/ICA stenosis with , superimposed thrombus, L BKA stump wound, Diabetic hyperglycemia, Hypertension, CAD, Tobacco dependence ,L pleurisy , LeukocytosisPast medical and surgical history: DM, HTN, L BKA, CAD, HLD, HTN, GERD, CABG, Tobacco dependence Had major surgery within 100 days of admission: YesRisk for medical/clinical complications: Anemia, Arrhythmia, BP fluctuation, Cardiac instability, Constipation, DVT, Depression, Electrolyte imbalance, Hypoxia, Incisional dehiscence, Infection, Injury d/t falls, Blood sugar fluctuation, Nutritional compromise, Pain, Skin breakdownAcute hospital stay summary: This patient is a 57 year old male with a prior medical history of diabetes, hypertension, and left BKA who admitted to the ED at [facility] on 10/04/22 with complaints of right sided flankpain after a fall from his scooter. He also complained of a headache for 3 days associated with weakness and a throbbing sensation in his right temporal lobe. [place] CT revealed a right MCA CVA. Neurology was consulted and ordered vascular imaging, MRI, and echo due to suspected embolic etiology. He was started on ezetimibe, aspirin, and Plavix. Vascular imaging revealed a large thrombus in the right internal carotid artery, however no intervention was recommended because the stroke occurred two days prior, therefore he was transferred to ICU and started on a Heparin drip with plans for a carotid endarterectomy. On 10/08/22/ he underwent a right CEA with bovine patch arthroplasty by Dr. Kern. His hospital course was further complicated by left pleurisy and a left BKA stump wound for which wound care has been consulted. He requires ongoing medical management of diabetes, hypertension, and anticoagulation after stroke. At baseline, he lives alone in a single story house where he is mod I for ADL and mobility using a knee scooter. Currently, he requires min assist for transfers and max assist for ADL, with gait assessment pending. He is able, willing, and motivated to participate in 3 hours of therapy, 5 days per week, with a goal of returning home at his prior level of function. PREADMIT VITALS: Date/Time 10/10/22 0706 Temp F Temp C 36.8 Pulse 92 RR 14 BP 156/76 SPO2% 90 Ht ft 6 Ht in 0 Wt lbs 193.000 BMI 26.2 SUPPORTING DIAGNOSTICS/LABS/RADIOLOGY/CARDIOLOGY: Date: 10/10/22 WBC: 14.5 HGB: 13.7 HCT: 37.1 Ca: 8.6 Na: 135 K+: 3.8 Glu: 104 M.7 BUN: 18 Creat: .67 Tot protein: Alb: PTT: PT: INR: PLT: Additional labs: Cultures: Imaging: Brain CT 10/04/22: 1. Loss of shaw-white matter differentiation and a large area at the right parietal lobe concerning for cerebral infarction.2. No acute fracture or malalignment of the cervical spine. 3. Multilevel degenerative changes of the cervical spine. CTA 10/05/22: Right internal carotid artery stenosis. thrombus at risk for further embolization. Evolving right middle cerebral artery distribution infarct without mass effect. Indeterminate right parotid lesions, for which otolaryngology consultation is recommended. Brain MRI 10/07/22: 1. Acute/early subacute ischemic infarct in involving the right parietal and temporal lobes and insular cortex. Small punctate petechial blood products are noted within the right parietal cortex. No large hemorrhagic transformation is seen. 2. Chronic small vessel ischemic white matter disease. 3. Partly visualized lesions within the right parotid gland, better visualized on recent CT of the neck. Surgical consultation recommended.Other supporting diagnostics: RESPIRATORY STATUS: Respiratory treatments: NebulizerO2 liters per minute: Respiratory status: Nebulizer Q4H PRN NEUROLOGIC STATUS: Neurologic status: Alert, Oriented to person, Oriented to place, Oriented to time, Oriented to situationPatient's mood and behavior: AppropriateHand dominance: Right BOWEL/BLADDER: Continent of bladder for developmental age: YesNumber of bladder accidents in last 48 hours: Catheter type: Insertion date: Bladder aids: Bladder comment: Continent of bowel for developmental age: YesNumber of bowel accidents in last 48 hours: Date of last BM: Colostomy: Ileostomy: Bowel aids: DulcolaxBowel comment: SKIN: Skin alteration: Present/Exists SKIN ALTERATION 1: Type: Surgical woundLocation: NeckStage: Description: Dressing C/D/I per mechanical designer SKIN ALTERATION 2: Type: WoundLocation: Leg left lowerStage: Description: Blanched dull skin, per wound care note incision did not close. covered with honey dressing and foam. SKIN ALTERATION 3: Type: Location: Stage: Description: SKIN ALTERATION 4: Type: Location: Stage: Description: EATING/NUTRITIONAL: Nutritional intake: PO regular food, PO thin liquids, cardiac dietEating compensatory strategies: Medication administration: IV, Medications whole, Subcutaneous REHAB NEEDS: Special rehabilitation needs: IV/PICC/CVC, Respiratory therapySpecial rehabilitation precautions: Safety/fallRehabilitation precaution detail: Fall risk due to L BKA and new onset weakness after CVA FUNCTIONAL ASSESSMENT: FUNC. TASK PRIOR LOF CURRENT LOF EXPECTED LOFBathing Independent Substantial/max asst IndependentU.B. Dressing Independent Supervise/touch asst IndependentL.B. Dressing Independent Substantial/max asst IndependentBed/Ch Transf. Independent Supervise/touch asst IndependentToilet Transfer Independent Supervise/touch asst IndependentStairs Partial/moderate Total assistance Partial/moderate asst asstLocomotion Independent Total assistance Independent Locomotion prior device use: ScooterDescription of prior level of locomotion: Mod I using Knee scooterLocomotion current device: NoneLocomotion current distance traveled without a rest break: 0 ft Description of current level of locomotion: gait not performed Min assist for sit to stand, decreased balance in standing Description of expected level of locomotion: Will require adaptive device upon discharge Language and Cognition: Alert and orietned x 4 Add'l functional comment: Patient is limited by weakness, decreased balance, and pain. Prior device use: ScooterPrior device use additional information: PRE-HOSPITAL: Pre-hospital services utilized: NoneOccupation/Profession: RetiredEducation history: Return to work/school plan: Marital status: Never marriedHobbies/leisure activities: Prior living situation: HomeLiving with: AloneLiving with comment: ANTICIPATED DC PLAN/POST IRF: Primary support contact: Diamond Bruno to patient: Phone number 1: [phone] number 2: Caregiver availability: NoneCaregiver can provide: Patient/caregiver goals/preferences: Return home at prior level of functionExpected discharge destination: HomeExpected discharge physical layout: One storyNumber of external stairs: Number of internal stairs: Railing details: Grab bars location: Barriers to discharge: Caregiver supportOptions discussed with patient: YesOptions discussed with caregiver: Patient agrees with program requirements: Yes ACTIVITY TOLERANCE: Current treatment interventions: Occupational therapy, Physical therapy, Respiratory therapyPatient able to tolerate 3 hours of therapy a day: YesPatient able to tolerate 15 hours of therapy a week: Altered therapy schedule comment: ACUTE INPATIENT REHAB PLAN: Estimated length of stay in days: 14Anticipated services in acute inpatient rehab: Rehab nursing 30/12, first assistant manager,Occupational therapy, Physical therapy, [facility] reviewed prior to admission decision: Acute History/Physical, Consult notes, Operative reports, Progress notes, Lab/diagnostics, Therapy notes, Vital signs, Other ancillary notes CRS ELECTRONIC SIGNATURE: CRS #1 electronic signature: Peg Campbell credentials: OTRDate: 10/10/22Time: 1120 CRS #2 electronic signature: CRS credentials: Date: Time: CRS #3 electronic signature: CRS credentials: Date: Time: Provider Pre-Admit SummaryAcute IP rehab admit: criteria metMD determinationBased upon my evaluation and review of the supporting assessment documentation and consultation with the preadmission sandblaster stone, I have determined, prior to admitting this patient, that there is reasonable expectation that at the time of admission to the IRF, the patient's medical management and rehabilitation needs require an inpatient stay and close physician involvement. Patient can be expected to actively participate in, and benefit from, and intensive rehab therapy program whose intensity is not provided in lower levels of care. Significant barriers that can only be addressed in an acute inpatient rehab program, including, but not limited to: Complex acute rehab needs: Custom therapy tx plan, Mgt of complex Co-morb, Neurointerdisc tx, Med adjustment/mgmt., New medical diagnosis, New medical complication, Nutritional compromise, Hospitalist consult, VTE Risk at 1145 RPT #:[id number] OF REPORTCLClinical [id number] Available for patient [id number] [facility] 2022-10-09 21:36:00 [id number] [facility]/[id number]+[id number] 1:36:00 [facility] ([facility])Hospitalist Progress NoteREPORT#:[id number] REPORT STATUS: SignedDATE:10/09/22 TIME: 2135 PATIENT: BRIGHT SALAZAR UNIT #: [id number]#: [id number] ROOM/BED: 278-1DOB: [birth year] AGE: 57 SEX: M ATTEND: Yung Loomis [facility] AUTHOR: Yung Loomis MD * ALL edits or amendments must be made on the electronic/computer document * SubjectiveChief complaint:Fell HeadachesHPI:This is a 57-year-old male with past medical history of diabetes hypertension CABG left BKA he was brought into the ER because he fell from the scooter he wason the scooter when he slipped and fell on the right side later at home he developed pain in the right chest and right side of the abdominal he was complaining of headache since 3 days which she never had it was right-sided throbbing he was also complaining of generalized weakness he also complains of redness in the left stump for which she they were supposed to prescribe an antibiotics denies any nausea vomiting diarrhea abdominal pain hematemesis melena blood in stool asking for more morphine's Objective Physical ExamCardiovascular: normal heart soundsRespiratory: decreased breath soundsAbdomen: softExtremities: edemaNeuro/RN MATERNITY: alert Considered stroke alert: yes Diagnosis, Assessment PlanHospital course to date:57-year-old right-handed male with multiple risk factors as has diabetes diagnosed per patient since 2007 poorly controlled, hypertriglyceridemia, hypertension, history of multiple coronary artery disease status post CABG and PCI since 2009, history of peripheral artery disease, history of neuropathy chronic, history of left below the knee amputation last year due to to 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 CTA. 10/05/2022.Right internal carotid artery stenosis. thrombus at risk for further embolization. Evolving right middle cerebral artery distribution infarct without mass effect.Indeterminate right parotid lesions, for which otolaryngology consultation is recommended. In acute ischemic stroke, when the ischemic penumbra may be at risk of irreversible damage if cerebral blood flow is reduced by lowering the blood pressure. Many Trials trial found no clear benefit for blood pressure lowering within 12 hours of acute ischemic stroke onset, but an adjusted analysis suggested that a goal systolic blood pressure of 161 to 180 mmHg increased the odds of a good outcome compared with higher or lower goal blood pressures Patient seen and examined.No further deterioration of the neurological symptoms.Continue to care current management, physical therapy occupational therapy, speech therapy.Feedings if the patient can tolerate.We will keep the hemodynamic measures as well Seen and examined as of 10/07/2022.Patient will be optimized for carotid endarterectomy which is scheduled later this week. -Patient post TPA maintain BP between 161-180 in first 24 hours.-Plan to initiate cardene drip if BP is higher then 180mmHg.-Restart antihypertensive medications during hospitalization for patients with blood pressure >140/90 mmHg who are neurologically stable-Treat hypertension before and during reperfusion therapy for acute ischemic stroke.reperfusion therapy except that blood pressure is >185/110 mmHgLabetalol 10 to 20 mg intravenously over 1 to 2 minutes, may repeat one time; Nicardipine 5 mg/hour intravenously, titrate up by 2.5 mg/hour every 5 to 15 minutes, maximum 15 mg/hour.Antithrombotic therapy with aspirin initiated within 48 hours of stroke onset "Early antithrombotic treatment of acute ischemic stroke and transient ischemic attack limited mobility, we plan to use Lovenox 40 mg daily, or heparin?Prophylaxis for deep venous thrombosis and pulmonary embolism. VTE prophylaxis for select patients within 48 hours of acute ischemic stroke onset who have restricted mobility, TIA can be done through?Antithrombotic therapy at discharge if A fib is present?Lipid lowering with high intensity statin therapy ?Blood pressure reduction after the acute phase of ischemic stroke has passed ?Behavioral and lifestyle changes including smoking cessation, exercise, weight reduction for patients with obesity, and a Mediterranean style diet.-Repeat CT scan in 48 hours. MRI/MRA/MRV (if suspected Venous thrombosis -Neuro checks Q 1 hour. Respiratory Rate, HR, Pulse (dopplers) Core Temprature.Maintain MAP >65mmHg or SBP>90mmHgUse Crystalloids/ NS @30ml/kg to maintain adequate perfusion in sepsis.Circulatory Shock: Fluids,Pressors, prefer Levophed and titrate to keep Sr lactate less then 1mmol/LPlan to Keep CVP between 8-12mHg after CVC placement. PaO2 >60mmhg or ScVo2 >70%if CVC is presentPlan TTE: Evaluate for CO. LVEF, WMA, RVSP, Valve functions and Intracardiac Shunt.Maintain SaO2>90%, Titrate to minimize [id number] <60mmHg DuoNebs with empiric antibiotics with inhaled and systemic steroids in COPD patient with flare.Urine Output : Maintain urine output: 0.5-1.5mL/kg/hrIf Urine Output is decreased <500ml/day or anuria, plan to start IV fluids, UA with cultures, bladder scan, placement of Juan's Catheter. Avoidnephrotoxins, retroperitoneal US, nephrology consult as indicated.CBC, CMP, ABG, and Daily X ray as indicated. Surgical plan.Right carotid endarterectomy next week.Continue the patient on heparinAspirin can be given to the patient. No Plavix.Fall precautionSeizure precautionSpeech speech and swallow evaluationKeep the patient n.p.o. for ICU Core Measures Appropriate Labs/Imaging/Consultations: ReviewedAppropriate Peptic Ulcer Disease Prophylasix: ReviewedAppropriate Deep Venous Thrombosis Prophylasix: ReviewedVentilator Associated Pneumonia Prevention: ReviewedCentral Line,Associated Blood Stream Infection/Indwelling Juan Days: ReviewedAppropriate Sedation: ReviewedNeutritional Evaluation: ReviewedCentral Line-Associated Blood Stream Infection: ReviewedICU LOS/GMLOS: ReviewedAppropriate Plan of Care Discussed with Family Service Assistant TeamSAT/SBT Protocols: Reviewed for the PatientAppropriate Pain Scale By BPS/CPOT: ReviewedRASS, GCS and Delirium Severity Scale: AccessedDiscussion About Transfer/Discharge/Wmc-ha-zdig-care: Reviewed All pertinant labs, Imaging, EKG, telemetry data,and medical records are reviewed by me personally. I have discussed the available findings, initial diagnosis and related differentials with the patient/day care center director including RN. All concerns and questions are answered to the best of my abilities based on theavailable data.I have initiated the plan of care based on preliminary diagnosis,requested appopriate consultations with labs/imagings. Patient/day care center director verbalizes understanding of the plan of care. Plan discussed and agreed with the patient Problem List/A P: 1. Diabetes 2. Hyperglycemia 3. Diabetic foot infection 4. CAD (coronary artery disease) 5. GERD (gastroesophageal reflux disease) Consultants: cardiovascular surgery, critical/industrial tractor driver, hospitalist, neurology Free Text DxA P NotesFree text DxA P notes:57-year-old right-handed male with multiple risk factors as has diabetes diagnosed per patient since 2007 poorly controlled, hypertriglyceridemia, hypertension, history of multiple coronary artery disease status post CABG and PCI since 2009, history of peripheral artery disease, history of neuropathy chronic, history of left below the knee amputation last year due to to 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 CTA. 10/05/2022.Right internal carotid artery stenosis. thrombus at risk for further embolization. Evolving right middle cerebral artery distribution infarct without mass effect.Indeterminate right parotid lesions, for which otolaryngology consultation is recommended. In acute ischemic stroke, when the ischemic penumbra may be at risk of irreversible damage if cerebral blood flow is reduced by lowering the blood pressure. Many Trials trial found no clear benefit for blood pressure lowering within 12 hours of acute ischemic stroke onset, but an adjusted analysis suggested that a goal systolic blood pressure of 161 to 180 mmHg increased the odds of a good outcome compared with higher or lower goal blood pressures -Patient post TPA maintain BP between 161-180 in first 24 hours.-Plan to initiate cardene drip if BP is higher then 180mmHg.-Restart antihypertensive medications during hospitalization for patients with blood pressure >140/90 mmHg who are neurologically stable-Treat hypertension before and during reperfusion therapy for acute ischemic stroke.reperfusion therapy except that blood pressure is >185/110 mmHgLabetalol 10 to 20 mg intravenously over 1 to 2 minutes, may repeat one time; Nicardipine 5 mg/hour intravenously, titrate up by 2.5 mg/hour every 5 to 15 minutes, maximum 15 mg/hour.Antithrombotic therapy with aspirin initiated within 48 hours of stroke onset "Early antithrombotic treatment of acute ischemic stroke and transient ischemic attack limited mobility, we plan to use Lovenox 40 mg daily, or heparin?Prophylaxis for deep venous thrombosis and pulmonary embolism. VTE prophylaxis for select patients within 48 hours of acute ischemic stroke onset who have restricted mobility, TIA can be done through?Antithrombotic therapy at discharge if A fib is present?Lipid lowering with high intensity statin therapy ?Blood pressure reduction after the acute phase of ischemic stroke has passed ?Behavioral and lifestyle changes including smoking cessation, exercise, weight reduction for patients with obesity, and a Mediterranean style diet.-Repeat CT scan in 48 hours. MRI/MRA/MRV (if suspected Venous thrombosis -Neuro checks Q 1 hour. Respiratory Rate, HR, Pulse (dopplers) Core Temprature.Maintain MAP >65mmHg or SBP>90mmHgUse Crystalloids/ NS @30ml/kg to maintain adequate perfusion in sepsis.Circulatory Shock: Fluids,Pressors, prefer Levophed and titrate to keep Sr lactate less then 1mmol/LPlan to Keep CVP between 8-12mHg after CVC placement. PaO2 >60mmhg or ScVo2 >70%if CVC is presentPlan TTE: Evaluate for CO. LVEF, WMA, RVSP, Valve functions and Intracardiac Shunt.Maintain SaO2>90%, Titrate to minimize [id number] <60mmHg DuoNebs with empiric antibiotics with inhaled and systemic steroids in COPD patient with flare.Urine Output : Maintain urine output: 0.5-1.5mL/kg/hrIf Urine Output is decreased <500ml/day or anuria, plan to start IV fluids, UA with cultures, bladder scan, placement of Juan's Catheter. Avoidnephrotoxins, retroperitoneal US, nephrology consult as indicated.CBC, CMP, ABG, and Daily X ray as indicated. Surgical plan.Right carotid endarterectomy next week.Continue the patient on heparinAspirin can be given to the patient. No Plavix.Fall precautionSeizure precautionSpeech speech and swallow evaluationKeep the patient n.p.o. for ICU Core Measures Appropriate Labs/Imaging/Consultations: ReviewedAppropriate Peptic Ulcer Disease Prophylasix: ReviewedAppropriate Deep Venous Thrombosis Prophylasix: ReviewedVentilator Associated Pneumonia Prevention: ReviewedCentral Line,Associated Blood Stream Infection/Indwelling Juan Days: ReviewedAppropriate Sedation: ReviewedNeutritional Evaluation: ReviewedCentral Line-Associated Blood Stream Infection: ReviewedICU LOS/GMLOS: ReviewedAppropriate Plan of Care Discussed with Family Service Assistant TeamSAT/SBT Protocols: Reviewed for the PatientAppropriate Pain Scale By BPS/CPOT: ReviewedRASS, GCS and Delirium Severity Scale: AccessedDiscussion About Transfer/Discharge/Civ-hj-oznp-care: Reviewed Disposition: Patient is okay to stepdown from ICU today. Continue care as above. Patient can discharge once placement at inpatient rehab has been arranged. Consultants: cardiovascular surgery, critical/industrial tractor driver, hospitalist, neurology at 2137 RPT #:[id number] OF REPORTPRProgress [id number]:36:[id number] Available for patient [id number]:37:44 [facility] 2022-10-09 11:37:00 [id number]/+/[id number] D9Ia [id number]+[id number] 1:37:00 [facility] ([facility])DT PROGRESS NOTEREPORT#:[id number] REPORT STATUS: SignedDATE:10/09/22 TIME: 1137 PATIENT: BRIGHT SALAZAR UNIT #: [id number]#: [id number] [address]ZFVZ: [address] AGE: 57 SEX: M ATTEND: Yung Loomis MDADM AUTHOR: Ben Shipley MD * ALL edits or amendments must be made on the electronic/computer document * Progress NoteProgress NoteSubjectiveUnderwent CEA yesterday Review of SystemsUnable to obtain due to:due to severe pain, patient has only endorsed severe surgical neck pain and nausea Physical ExamGeneral appearance: alert, awake, oriented, mental status normal, no respiratorydistressHead/eyes: atraumatic, clear cornea, EOMI, normal conjunctiva/sclera, normocephalic, PERRLENT: moist mucosal membranes, normal dentitionNeck: full range of motion, non-tender, normal thyroid, supple/no meningismus, no JVDCardiovascular: normal capillary refill, normal heart sounds, regular rate and rhythm, normal S1/S2, no ectopy, no murmurRespiratory: aerating well, clear to auscultation, symmetric expansion, no distress, room airAbdomen: obese, soft, non-tender, normal bowel sounds, no distention, no guardingGenitourinary: no bladder distention, no urinary catheterExtremities: moves all, normal capillary refill, normal range of motion, no calftenderness, no clubbing, no cyanosis, no edemaMusculoskeletal normal inspection, painless range of motionNeuro/RN MATERNITY: alert, oriented X 3, normal speech Considered stroke alert: yesSkin: dry, intact, normal color, normal temperature, no rash Diagnosis, Assessment PlanFree text A P:This is 57-year-old right-handed male with PMH significant for T2DM since 2007 poorly controlled, hypertriglyceridemia, hypertension, coronary artery disease status post CABG and PCI since 2009, PAD, chronic neuropathy, 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 Patient also reports headache in the parietal temporal area x4 days, with no other accompanying symptoms, but limits his ability to go to sleep. Assessment:Right MCA stroke, secondary to a right distal CCA calcified plaque s/p Right-Sided Carotid Endarterectomy (10/08/22)Right proximal ICA [id number] (HbA1c 10.9)Diabetic neuropathyDyslipidemiaHypertensionCAD, with History of CABG and PCI Peripheral Arterial Disease, history of Left BKALeft BKA Stump Wound Plan:Neurology following10/05/22 CTA Neck: right distal CCA calcified plaque with appearance of superimposed thrombus possible due to ruptured plaque, as per impression by Neurology10/07/22 MRI Brain: Acute/early subacute ischemic infarct in involving the rightparietal and temporal lobes and insular cortex. Small punctate petechial blood products are noted within the right parietal cortex. No large hemorrhagic transformation is seen.2Chronic small vessel ischemic white matter disease.10/08/22: underwent right-sided carotid endarterectomy to be performed on 10/08/22Target BP goal per CV Surgery: SBP < 150 mmHgAspirin 81 mg daily Did not start Statin - given report of Arthralgia as a response to statin treatments in the past. Therefore on Zetia instead Pending TTE Platelet response to P2Y12 inhibitor orderedNormal renal function, monitor mild hyponatremiaStable CBC; monitor dailyLeft stump BKA wound, Wound Care consulted10/04 Blood cultures: negative to dateUA not suggestive of UTICOntinued on Ceftriaxone and VancomycinHemoglobin A1c 10.9Continue subQ Insulin regimen Also, left-sided pleurisy: though remarkable findings not demonstrated on recentCT Chest and CTA chest findings. In addition, no remarkable findings on CT Abdomen/Pelvis with IV Contrast. Diet: Cardiac/ADA diet PT/OT Following VTE ppx: Heparin sqGI ppx: pepcid CODE STATUS: FullDispo: Tele Total critical care time >35 minutes. Total critical care time documented does not include time spent on separately billed procedures or the services of residents, students, nurses or physician assistants. I personally saw and examined the patient. I have reviewed all diagnostic interpretations and treatment plans as written. I was present for the wyatt portions of any proceduresperformed and the inclusive time noted in any critical care statement. Critical care time includes patient management by me, time spent at the patients bedside,time to review lab and imaging results, discussing patient care, documentation in the medical record, and time spent with the family or caregiver. at 1220 RPT #:[id number] OF REPORTPRProgress [id number]:37:[id number] Available for patient [id number]:21:[address] [facility] 2022-10-09 11:20:00 [id number] RK9n [id number] 1:20:00 [facility] ProgREPORT#:[id number] REPORT STATUS: SignedDATE:10/09/22 TIME: 1120 PATIENT: BRIGHT SALAZAR UNIT #: [id number]#: [id number] [address]-AMRP: [address] AGE: 57 SEX: M ATTEND: Yung Loomis Jasmin MDADM AUTHOR: Aurora Chao APRN * ALL edits or amendments must be made on the electronic/computer document * GeneralStatus post:Right carotid endarterectomy SubjectiveChief complaint:Weakness left side Review of SystemsConstitutional:Reports: generalized weakness. Denies: chills, fever. Skin:Denies: swelling. Respiratory:Denies: AZEVEDO (dyspnea on exertion), hemoptysis, productive cough (sputum), SOB. Cardiovascular:Denies: chest pain, AZEVEDO (dyspnea on exertion), edema. GI:Denies: nausea, vomiting. Neuro:Reports: weakness. Denies: change in LOC, seizure, slurred speech. All systems rev neg: except as marked Objective GeneralVS/I OLast Documented: Result Date Time Pulse Ox 92 10/09 1027 B/P 144/62 10/09 1027 B/P Mean 91 10/09 1027 Pulse 82 10/09 1027 Resp 13 10/09 1027 Temp 97.7 10/09 0800 FiO2 21 10/09 0712 O2 Delivery Room air 10/09 0712 24 hour I O ending at 0700: 10/09 0700 10/08 1900 Intake Total 100.00 Output Total 17 Balance 83.00 Intake, IV 100.00 Output, 17 Drainage PATIENT WEIGHT: Weight (lb): 192Weight (oz): 14.47Weight (kg): 87.500 Dietitian Nutrition assessmentThe data set between the solid lines has been imported from the dietitian's assessment. BMI Calculated: 26.2Nutrition related diagnosis: Nutrition diagnosis details: Nutrition problem: Nutrition etiology: Nutrition signs and symptoms: Nutrition prescription: Dietitian name: Assessment completed: Physical ExamGeneral appearance: no acute distress, no respiratory distressWound/incision: Location:Right neck Site condition: incision intactHEENT: mucosal membranes moistNeck: full range of motionAbdomen: no guardingNeuro/RN MATERNITY: alert, oriented X 3 Diagnosis, Assessment PlanFree Text A P:57-year-old male s/p Right carotid endarterectomyPt is hemodynamically stablePt denies any new neuro deficits, no assymetry noted, moves all extremetiesIncision is intact, BUBBA drain removed, guaze can be removed after 24hr, incision can be left clean, dry and open to airPt can be dc to home/rehab per CV surgery if medically stableASA/Plavix resume home medsPt to follow up with Dr. Kern in 2 weeks, appt givenDiscussed with Dr. Kern will cont to followConsultants: cardiovascular surgery, critical/industrial tractor driver, hospitalist, neurology at 1128 RPT #:[id number] OF REPORTPRProgress [id number]:20:[id number] Available for patient [id number]:28:[address] [facility] 2022-10-09 10:34:00 [id number] ju7M SChL6oBY7h/FaDec+xQoB/[id number] 0:34:00 [facility] ([facility]Ne[facility] Progress NoteREPORT#:[id number] REPORT STATUS: SignedDATE:10/09/22 TIME: 1034 PATIENT: BRIGHT SALAZAR UNIT #: [id number]#: [id number] ROOM/BED: ZQX59-QYEE: 65 AGE: 57 SEX: M ATTEND: Yung Loomis [facility] AUTHOR: Radha Alba MD * ALL edits or amendments must be made on the electronic/computer document * SubjectiveChief complaint:pain in ribs and fallHPI:Patient was seen this morning in the ICU for neurological follow-up visit. Patient had carotid enterectomy done yesterday. No immediate complications. Hecontinues to report of headache and right-sided neck pain. Denies any new weakness. 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 On further questioningthe patient stated he had a headache for around 4 days prior to admission on theright side of his parietal temporal area that was throbbing, with very poor description of the characteristic but stated it limited his ability to sleep. There is no nausea, vomiting, photophobia or phonophobia with it. The head was not tender to touch. He did not notice the headache gets any better or any bodyposition. The headache was not going away. He did not drive much at home sincethen and reportedly was not feeling very well but was able to mobilize himself. Yesterday morning he woke up and he got onto his scooter and was going to the kitchen to make himself breakfast but fell and hit his rib cage and had pain since. He did not want to go to the hospital initially but then due to the persistence of the pain he decided to come in. Reported imaging obtained after 1700 which showed early ischemic changes suspicious for a recent infarct on the right MCA distribution and I was made aware about the patient last night as reported symptoms was more than a day per ER.Patient stated overall it most bother him the most is his rib cage pain and his headache. He stated his headache is around 9/10 in severity. In distress and 1his pain to be improved rather than discussing further about his medical conditions. He stated he does not notice any weakness currently. No reported of numbness per the patient. He only stated he had chronic numbness in his feetfor long time. He did state he might have noticed some dry discharges on the amputation site on his left BKA. The patient stated he still smokes, he denied any illicit drug use. He stated last alcohol drink was June of this year.He stated no dizziness, does not notice any vision changes, no hearing/speech changes, no nausea/vomiting. Worsening rib cage pain when coughing. No right-sided weakness and did not notice left-sided weakness stated only affected by painNo report of measuring his blood pressure at home. Per description pre morbid mRS appear to be 1 is only uses a scooter given his left below the knee amputation and was in the process of getting a prosthetic device for his leg so he can ambulate without a scooter. He does everything on his own and lives by himself and will drive without any issues.On reported statin allergy, he stated he tried every statin that he was told to try but every time he tries it he will have significant joint pain in his legs, knees, hands and he would have to stop it for joint pain to go away. He did nottry ezetimibe before or Vascepa. Objective GeneralVS:Last Documented: Result Date Time Pulse Ox 92 10/09 1027 B/P 144/62 10/09 1027 B/P Mean 91 10/09 1027 Pulse 82 10/09 1027 Resp 13 10/09 1027 Temp 97.7 10/09 0800 FiO2 21 10/09 0712 O2 Delivery Room air 10/09 0712 PATIENT WEIGHT: Weight (lb): 192Weight (oz): 14.47Weight (kg): 87.500 MedicationsCurrent Home MedicationsASPIRIN 81 MG PO BID ZOLPIDEM (AMBIEN) 10 MG PO BEDTIME GABAPENTIN (NEURONTIN) 400 MG PO TID METOPROLOL TARTRATE (LOPRESSOR) 50 MG PO DAILY INSULIN NPH HUMAN RECOM (HumuLIN N) 35 UNITS SUBQ BID MEALS INSULIN REGULAR (HumuLIN R) 10 UNITS SUBQ AC CLOPIDOGREL (PLAVIX) 75 MG PO DAILY Active Meds + DC'd Last 24 HrsHaloperidol Lactate (HALDOL) 2 MG ONCE ONE IV (DC) Nicardipine HCl (CARDENE ) 25 MG TITRATE IV (CKD) Sodium Chloride (NORMAL SALINE 250 ML) 250 MLNitroglycerin/Dextrose (NITROGLYCERIN 50MG/D5W) 250 ML TITRATE IV (DC) Morphine Sulfate (MORPHINE SULFATE) 4 MG ONCE IV (DC) Ondansetron HCl (ZOFRAN) 4 MG ONCE IV (DC) Glycopyrrolate (ROBINUL IJ) 0 .STK-MED ONE .ROUTE (DC) Neostigmine Methylsulfate (NEOSTIGMINE METHYLSULFATE) 0 .STK-MED ONE .ROUTE (DC) Protamine Sulfate (PROTAMINE SULFATE) 0 .STK-MED ONE .ROUTE (DC) Benzocaine/Menthol (Sore Throat Lozenge) 1 LOZENGE Q2H PRN PRN MM Dextrose/Water (DEXTROSE 50%-WATER) 25 ML ASDIR PRN IV (CKD) Glucagon (GLUCAGON) 1 MG ASDIR PRN IM Glucose Polymer (GLUTOSE) 15 GM ASDIR PRN PO Phenol (CHLORASEPTIC 177 ML) 1 SPRAY Q2H PRN PRN TOPICAL Calcium Chloride (CALCIUM CHLORIDE 10% SYRINGE) 0 .STK-MED ONE .ROUTE (DC) Succinylcholine Chloride (QUELICIN, ANECTINE) 0 .STK-MED ONE .ROUTE (DC) Vancomycin HCl (Vancomycin HCl) 1,250 GM PREOP ONCE IV (DC) Sodium Chloride (NORMAL SALINE 250 ML) 250 MLSodium Chloride (NORMAL SALINE 250 ML) 250 ML .STK-MED ONE IV (DC) Vancomycin HCl (VANCOMYCIN HCL) 0 .STK-MED ONE .ROUTE (DC) Vancomycin HCl (VANCOMYCIN) 0 .STK-MED ONE .ROUTE (DC) Heparin Sodium/Dextrose (HEPARIN 25,000 UNITS/250 ML D5W) 250 ML TITRATE IV (CKD) Aspirin (ASPIRIN) 81 MG DAILY PO Cyclobenzaprine HCl (FLEXERIL) 10 MG TID PRN PRN PO Ezetimibe (ZETIA) 10 MG BEDTIME PO Lidocaine (LIDODERM PATCH) 1 PATCH BEDTIME TRANSDERM Mupirocin (BACTROBAN) 1 APPLIC BID NASAL Gabapentin (NEURONTIN) 300 MG TID PO Sodium Chloride (NORMAL SALINE 250 ML) 250 ML BOLUS PRN IV Metoprolol Tartrate (LOPRESSOR) 50 MG DAILY PO Insulin Human NPH (HumuLIN N) 35 UNIT BID MEALS SUBQ Insulin Human Regular (HumuLIN R) 10 UNIT AC SUBQ Ceftriaxone Sodium (ROCEPHIN) 1 GM Q24H IV Sterile Water (STERILE WATER) 10 MLZolpidem Tartrate (AMBIEN) 10 MG BEDTIME PO Acetaminophen (TYLENOL) 650 MG Q4H PRN PRN PO Acetaminophen (TYLENOL) 650 MG Q6H PRN PRN RECTAL Al Hydrox/Mg Hydrox/Simethicone (MAALOX PLUS) 30 ML Q4H PRN PRN PO Albuterol/Ipratropium (DUONEB 2.5-0.5MG/3ML SOLN) 3 ML RTQ4H PRN PRN NEB Bisacodyl (DULCOLAX) 10 MG DAILY PRN PRN PO Calcium Carbonate (TUMS) 1,000 MG DAILY PRN PRN PO Clonidine HCl (CATAPRES) 0.1 MG Q6H PRN PRN PO Dextrose/Water (DEXTROSE 50%-WATER) 25 ML ASDIR PRN IV (CKD) Glucagon (GLUCAGON) 1 MG ASDIR PRN IM Glucose Polymer (GLUTOSE) 15 GM ASDIR PRN PO Guaifenesin/Dextromethorphan (ROBITUSSIN-DM) 10 ML QID PRN PRN PO Hydrocodone Bitart/Acetaminophen (NORCO 5/325 TABLET) 1 TAB Q4H PRN PRN PO Hydrocodone Bitart/Acetaminophen (NORCO 10/325 TABLET) 1 TAB Q4H PRN PRN PO Insulin Human Lispro (HUMALOG) See Admin Criteria ASDIR PRN SUBQ Magnesium Sulfate/Dextrose (MAGNESIUM SULFATE 1GM/D5W 100ML) 100 ML DAILY PRN PRN IV Morphine Sulfate (morphine PF SYRINGE) 2 MG Q4H PRN PRN IV Nitroglycerin (NITROSTAT) 0.4 MG Q5M PRN PRN SL Ondansetron HCl (ZOFRAN) 4 MG Q4H PRN PRN IV Potassium Chloride (K-DUR) 40 MEQ DAILY PRN PRN PO Potassium Phos/Sodium Phos (PHOS-NAK PACKET) 2 PKT DAILY PRN PRN PO (CKD) Senna (SENOKOT) 1 TAB DAILY PRN PRN PO (CKD) Simethicone (MYLICON) 160 MG Q6H PRN PRN PO Sodium Chloride (NORMAL SALINE 250 ML) 250 ML BOLUS PRN IV Trazodone HCl (DESYREL) 50 MG BEDTIME PRN PRN PO Lactated Ringer's (LACTATED RINGERS) 1,000 ML X1ED STA IV Physical ExamGeneral appearance: alert, awake, oriented, no acute distressHead/Eyes: atraumatic, normocephalicNeck: supple/no meningismusNeuro comment:A O to self, place, time, condition/situation. Mainly in discomfort from his left rib cage No Gaze preference Visual perdue with left visual field cut. Funduscopy without clear papilledema No aphasia or dysarthria. Pupil equal, round and reactive b/l. Eye movement intact b/l. No facial droop. Tongue midline. Movement: 5/5 on the right, left upper extremity 4+/5 with limitation due to pain but with drift, left BKA with leg 4+/5 without a drift. Sensation would confabulate, has decreased sensation to pinprick on the left arm and face, unable to feel on the left arm. Does have sensory neglect on the left No nystagmus, No dysmetria b/l in all 4 exts with limitation due to pain and BKA. ResultsFindings/Data:Laboratory Tests 10/09 10/09 10/08 10/08 0811 0317 2150 1604Chemistry Sodium (133 - 144 mmol/L) 130.0 L Potassium (3.5 - 5.1 mmol/L) 4.5 Chloride (95 - 105 mmol/L) 101 Carbon Dioxide (21 - 32 mmol/L) 24 Anion Gap (4.0 - 15.0 GAP calc) 5.0 BUN (7 - 18 MG/DL) 19 H Creatinine (0.55 - 1.30 MG/DL) 0.79 Glomerular Filtr Rate (>60 estGFR) 104 Glucose (70 - 110 MG/DL) 196 H POC Glucose (70 - 119 MG/DL) 185 H 263 H 186 H Calcium (8.5 - 10.1 MG/DL) 8.7 Phosphorus (2.5 - 4.9 MG/DL) 3.1 Magnesium (1.6 - 2.6 MG/DL) 1.7 Specimen Appearance (1 NORMAL Index/DL) 1 NORMAL <2 MG Specimen Hemolysis (1 NORMAL Index/DL) 1 NORMAL <10 MG 10/08 1424 Chemistry POC Glucose (70 - 119 MG/DL) 138 H Laboratory Tests 10/09 0317 Hematology WBC (4.1 - 12.1 K/mm3) 12.6 H RBC (3.8 - 5.5 M/mm3) 4.72 Hgb (10.6 - 15.8 G/DL) 13.2 Hct (31.8 - 47.4 %) 38.4 MCV (80.1 - 101.1 fL) 81.4 MCH (25.3 - 35.3 pg) 28.0 MCHC (32.7 - 35.1 G/DL) 34.4 RDW (12.2 - 16.4 %) 13.2 Plt Count (155 - 337 K/mm3) 312 MPV (7.6 - 10.4 fL) 10.6 H Gran % (37.8 - 82.6 %) 83.1 H Lymph % (Auto) (14.1 - 45.4 %) 6.4 L Williams % (Auto) (2.5 - 11.7 %) 10.0 Eos % (Auto) (0.0 - 6.2 %) 0.0 Baso % (Auto) (0.0 - 2.6 %) 0.2 Gran # (2.0 - 13.7 k/mm3) 10.46 Lymph # (Auto) (0.6 - 3.8 K/mm3) 0.80 Williams # (Auto) (0.11 - 0.59 K/mm3) 1.26 H Eos # (Auto) (0.0 - 0.4 K/mm3) 0.00 Baso # (Auto) (0.0 - 0.1 K/mm3) 0.02 Immature Gran % (0.0 - 2.0 %) 0.3 Nucleated RBC % (0.0 - 1.0 /100WBC%) 0.0 Nucleated RBCs # (0.00 - 0.05 K/mm3) 0.00 Diagnosis, Assessment PlanFree Text A P:Ischemic stroke right MCA distribution etiology embolic due to R distal CCA ruptured plaque with superimposed thrombusHeadache new onset suspect due to aboveMultiple uncontrolled risk factors including hypertension, peripheral artery disease, diabetes A1c 11, coronary artery disease multiple, smokingHypertriglyceridemiaRib cage pain post fallHistory of left BKA due to diabetic footArthralgia as a response to statin treatments in the pastReported restless leg in the legs taking gabapentin at night dailyStatus post right CEA.Start 75 mg Plavix if okay with CVS. P2 Y12 166.-On ezetimibe only as patient refused to take statin as had allergy to statin with joint pains and per report tried every statin. See below for further info. Vascepa outpatient is reasonable. Critical care time was 30 minutes. More than 15 minutes spent in reviewing data, discussing with the staff, and coordinating the plan of care. copied:Onset of the symptoms possible since Friday as patient did not recognize his deficit even currently, most noticeable symptoms with the fall happened yesterday outpatient coding specialist after waking up. Initially evaluated as a trauma. CTA recommended and will be obtained today as vascular imaging for etiology of the stroke. per description/report appear outside window for acute stroke therapy. -Treatment of the headache will try 1 dose Toradol with Compazine and Benadryl. Patient was aware of potential side effect and agreed to start the medication. stated takes gabapentin only one time at night and agreed to transition to 300 TID pattern for now as stated was too drowsy when started it as TID reportedly was 400 mg. - agreed to try ezetimibe. As did not want to try different statin currently suzette is in pain and is worried that he might get worsening pain. Sometimes pravastatin or rosuvastatin has less effect on causing joint pain. Some report on the use of CQ 10 might help however no official evidence yet available. Trying on Vascepa as an outpatient might be helpful if triglyceride continues haley elevated 3 months after treatment with ezetimibe.-Evaluation for headache depending on improvement of symptoms as appear most likely due to recent stroke.-MRI brain ordered. Echo ordered.-Patient agreed for testing for vitamins along with sexually transmitted diseases along with urine drug screening.-We will do permissive blood pressure for now till vascular imaging obtained. Blood pressure parameters to be adjusted after CTA obtained or after 24-hour post admission. If possible, would avoid hydralazine for the first week post stroke. Other options can be tried such as PRN Labetalol or Enalaprilat, IV drips, Captopril, Nifedipine, or if patient is a good candidate Clonidine.-Patient is aware that he needs to stop smoking. Better diabetes control is needed as A1c is 11. Blood cultures were obtained and might need wound culture given the patient reported symptoms of possible discharges from his left BKA surgical site.- Would continue on telemetry. Review of patient prior telemetry report from prior admission did not show any arrhythmia and patient was not aware of any arrhythmia in the past- Antiplatelet therapy: We will continue aspirin and Plavix as she takes it for his cardiac condition. We will check P2 Y12.-Neuropathy and stroke labs ordered- Q.4 hour neurochecks. This can be changed to Every shift after 72 hours of admission if patient is clinically stable without fluctuation or large vessel occlusion on imaging. - If diabetic, mainly with avoid hypoglycemia. Goal BG <180 overall adequate during inpatient stay.- If no pending for procedure, can start a diet if passes swallow.- Okay with gentle hydration from my end.- SQ Heparin/Lovenox SQ for DVT prophylaxis.- Fall precautions.- PT/OT/ST. For ischemic stroke care outpatient- Stroke risk factor goals as outpatient: A1c <7.0, BP 110-130/<80, BMI less than 24, LDL <70, Triglycerides <135.- Consideration for evaluation of obstructive sleep apnea after ischemic stroke/TIA as an outpatient is generally recommended.- Low threshold to screen for depression/anxiety (screening tools such as PHQ-9,GURJIT or aphasia depression rating scale) are recommended for patients poststroke in the outpatient settings.- Cognitive evaluation as an outpatient (at least within 1 year) is recommended for stroke.- Consideration for metformin is reasonable and ischemic stroke/TIA if the following is met: Prediabetes and <60 years of age or with BMI >34 or women withhistory of gestational diabetes.- For DM management in patient with ischemic stroke as outpatient: Can consider GLP-1 receptor agonist preferably or SGLT-2 inhibitors (preferably Dulaglutide if possible and no concern for potential heart/kidney failure) Please contact me with questions at [facility] RPT #:[id number] OF REPORTPRProgress [id number]:34:[id number] Available for patient [id number]:[address] [facility] 2022-10-08 23:28:00 [id number] [id number] 3:28:00 [facility] ([facility])Hospitalist Progress NoteREPORT#:[id number] REPORT STATUS: SignedDATE:10/08/22 TIME: 2327 PATIENT: BRIGHT SALAZAR UNIT #: [id number]#: [id number] [address] [birth year] AGE: 57 SEX: M ATTEND: Yung Loomis [facility] AUTHOR: Yung Loomis MD * ALL edits or amendments must be made on the electronic/computer document * SubjectiveChief complaint:Fell HeadachesHPI:This is a 57-year-old male with past medical history of diabetes hypertension CABG left BKA he was brought into the ER because he fell from the scooter he wason the scooter when he slipped and fell on the right side later at home he developed pain in the right chest and right side of the abdominal he was complaining of headache since 3 days which she never had it was right-sided throbbing he was also complaining of generalized weakness he also complains of redness in the left stump for which she they were supposed to prescribe an antibiotics denies any nausea vomiting diarrhea abdominal pain hematemesis melena blood in stool asking for more morphine's Objective Physical ExamCardiovascular: normal heart soundsRespiratory: decreased breath soundsAbdomen: softExtremities: edemaNeuro/RN MATERNITY: alert Considered stroke alert: yes Diagnosis, Assessment PlanHospital course to date:57-year-old right-handed male with multiple risk factors as has diabetes diagnosed per patient since 2007 poorly controlled, hypertriglyceridemia, hypertension, history of multiple coronary artery disease status post CABG and PCI since 2009, history of peripheral artery disease, history of neuropathy chronic, history of left below the knee amputation last year due to to 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 CTA. 10/05/2022.Right internal carotid artery stenosis. thrombus at risk for further embolization. Evolving right middle cerebral artery distribution infarct without mass effect.Indeterminate right parotid lesions, for which otolaryngology consultation is recommended. In acute ischemic stroke, when the ischemic penumbra may be at risk of irreversible damage if cerebral blood flow is reduced by lowering the blood pressure. Many Trials trial found no clear benefit for blood pressure lowering within 12 hours of acute ischemic stroke onset, but an adjusted analysis suggested that a goal systolic blood pressure of 161 to 180 mmHg increased the odds of a good outcome compared with higher or lower goal blood pressures Patient seen and examined.No further deterioration of the neurological symptoms.Continue to care current management, physical therapy occupational therapy, speech therapy.Feedings if the patient can tolerate.We will keep the hemodynamic measures as well Seen and examined as of 10/07/2022.Patient will be optimized for carotid endarterectomy which is scheduled later this week. -Patient post TPA maintain BP between 161-180 in first 24 hours.-Plan to initiate cardene drip if BP is higher then 180mmHg.-Restart antihypertensive medications during hospitalization for patients with blood pressure >140/90 mmHg who are neurologically stable-Treat hypertension before and during reperfusion therapy for acute ischemic stroke.reperfusion therapy except that blood pressure is >185/110 mmHgLabetalol 10 to 20 mg intravenously over 1 to 2 minutes, may repeat one time; Nicardipine 5 mg/hour intravenously, titrate up by 2.5 mg/hour every 5 to 15 minutes, maximum 15 mg/hour.Antithrombotic therapy with aspirin initiated within 48 hours of stroke onset "Early antithrombotic treatment of acute ischemic stroke and transient ischemic attack limited mobility, we plan to use Lovenox 40 mg daily, or heparin?Prophylaxis for deep venous thrombosis and pulmonary embolism. VTE prophylaxis for select patients within 48 hours of acute ischemic stroke onset who have restricted mobility, TIA can be done through?Antithrombotic therapy at discharge if A fib is present?Lipid lowering with high intensity statin therapy ?Blood pressure reduction after the acute phase of ischemic stroke has passed ?Behavioral and lifestyle changes including smoking cessation, exercise, weight reduction for patients with obesity, and a Mediterranean style diet.-Repeat CT scan in 48 hours. MRI/MRA/MRV (if suspected Venous thrombosis -Neuro checks Q 1 hour. Respiratory Rate, HR, Pulse (dopplers) Core Temprature.Maintain MAP >65mmHg or SBP>90mmHgUse Crystalloids/ NS @30ml/kg to maintain adequate perfusion in sepsis.Circulatory Shock: Fluids,Pressors, prefer Levophed and titrate to keep Sr lactate less then 1mmol/LPlan to Keep CVP between 8-12mHg after CVC placement. PaO2 >60mmhg or ScVo2 >70%if CVC is presentPlan TTE: Evaluate for CO. LVEF, WMA, RVSP, Valve functions and Intracardiac Shunt.Maintain SaO2>90%, Titrate to minimize [id number] <60mmHg DuoNebs with empiric antibiotics with inhaled and systemic steroids in COPD patient with flare.Urine Output : Maintain urine output: 0.5-1.5mL/kg/hrIf Urine Output is decreased <500ml/day or anuria, plan to start IV fluids, UA with cultures, bladder scan, placement of Juan's Catheter. Avoidnephrotoxins, retroperitoneal US, nephrology consult as indicated.CBC, CMP, ABG, and Daily X ray as indicated. Surgical plan.Right carotid endarterectomy next week.Continue the patient on heparinAspirin can be given to the patient. No Plavix.Fall precautionSeizure precautionSpeech speech and swallow evaluationKeep the patient n.p.o. for ICU Core Measures Appropriate Labs/Imaging/Consultations: ReviewedAppropriate Peptic Ulcer Disease Prophylasix: ReviewedAppropriate Deep Venous Thrombosis Prophylasix: ReviewedVentilator Associated Pneumonia Prevention: ReviewedCentral Line,Associated Blood Stream Infection/Indwelling Juan Days: ReviewedAppropriate Sedation: ReviewedNeutritional Evaluation: ReviewedCentral Line-Associated Blood Stream Infection: ReviewedICU LOS/GMLOS: ReviewedAppropriate Plan of Care Discussed with Family Service Assistant TeamSAT/SBT Protocols: Reviewed for the PatientAppropriate Pain Scale By BPS/CPOT: ReviewedRASS, GCS and Delirium Severity Scale: AccessedDiscussion About Transfer/Discharge/Pmo-vr-zkup-care: Reviewed All pertinant labs, Imaging, EKG, telemetry data,and medical records are reviewed by me personally. I have discussed the available findings, initial diagnosis and related differentials with the patient/day care center director including RN. All concerns and questions are answered to the best of my abilities based on theavailable data.I have initiated the plan of care based on preliminary diagnosis,requested appopriate consultations with labs/imagings. Patient/day care center director verbalizes understanding of the plan of care. Plan discussed and agreed with the patient Problem List/A P: 1. Diabetes 2. Hyperglycemia 3. Diabetic foot infection 4. CAD (coronary artery disease) 5. GERD (gastroesophageal reflux disease) Consultants: cardiovascular surgery, critical/industrial tractor driver, hospitalist, neurology Free Text DxA P NotesFree text DxA P notes:57-year-old right-handed male with multiple risk factors as has diabetes diagnosed per patient since 2007 poorly controlled, hypertriglyceridemia, hypertension, history of multiple coronary artery disease status post CABG and PCI since 2009, history of peripheral artery disease, history of neuropathy chronic, history of left below the knee amputation last year due to to 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 CTA. 10/05/2022.Right internal carotid artery stenosis. thrombus at risk for further embolization. Evolving right middle cerebral artery distribution infarct without mass effect.Indeterminate right parotid lesions, for which otolaryngology consultation is recommended. In acute ischemic stroke, when the ischemic penumbra may be at risk of irreversible damage if cerebral blood flow is reduced by lowering the blood pressure. Many Trials trial found no clear benefit for blood pressure lowering within 12 hours of acute ischemic stroke onset, but an adjusted analysis suggested that a goal systolic blood pressure of 161 to 180 mmHg increased the odds of a good outcome compared with higher or lower goal blood pressures -Patient post TPA maintain BP between 161-180 in first 24 hours.-Plan to initiate cardene drip if BP is higher then 180mmHg.-Restart antihypertensive medications during hospitalization for patients with blood pressure >140/90 mmHg who are neurologically stable-Treat hypertension before and during reperfusion therapy for acute ischemic stroke.reperfusion therapy except that blood pressure is >185/110 mmHgLabetalol 10 to 20 mg intravenously over 1 to 2 minutes, may repeat one time; Nicardipine 5 mg/hour intravenously, titrate up by 2.5 mg/hour every 5 to 15 minutes, maximum 15 mg/hour.Antithrombotic therapy with aspirin initiated within 48 hours of stroke onset "Early antithrombotic treatment of acute ischemic stroke and transient ischemic attack limited mobility, we plan to use Lovenox 40 mg daily, or heparin?Prophylaxis for deep venous thrombosis and pulmonary embolism. VTE prophylaxis for select patients within 48 hours of acute ischemic stroke onset who have restricted mobility, TIA can be done through?Antithrombotic therapy at discharge if A fib is present?Lipid lowering with high intensity statin therapy ?Blood pressure reduction after the acute phase of ischemic stroke has passed ?Behavioral and lifestyle changes including smoking cessation, exercise, weight reduction for patients with obesity, and a Mediterranean style diet.-Repeat CT scan in 48 hours. MRI/MRA/MRV (if suspected Venous thrombosis -Neuro checks Q 1 hour. Respiratory Rate, HR, Pulse (dopplers) Core Temprature.Maintain MAP >65mmHg or SBP>90mmHgUse Crystalloids/ NS @30ml/kg to maintain adequate perfusion in sepsis.Circulatory Shock: Fluids,Pressors, prefer Levophed and titrate to keep Sr lactate less then 1mmol/LPlan to Keep CVP between 8-12mHg after CVC placement. PaO2 >60mmhg or ScVo2 >70%if CVC is presentPlan TTE: Evaluate for CO. LVEF, WMA, RVSP, Valve functions and Intracardiac Shunt.Maintain SaO2>90%, Titrate to minimize Fwa3MvL2 <60mmHg DuoNebs with empiric antibiotics with inhaled and systemic steroids in COPD patient with flare.Urine Output : Maintain urine output: 0.5-1.5mL/kg/hrIf Urine Output is decreased <500ml/day or anuria, plan to start IV fluids, UA with cultures, bladder scan, placement of Juan's Catheter. Avoidnephrotoxins, retroperitoneal US, nephrology consult as indicated.CBC, CMP, ABG, and Daily X ray as indicated. Surgical plan.Right carotid endarterectomy next week.Continue the patient on heparinAspirin can be given to the patient. No Plavix.Fall precautionSeizure precautionSpeech speech and swallow evaluationKeep the patient n.p.o. for ICU Core Measures Appropriate Labs/Imaging/Consultations: ReviewedAppropriate Peptic Ulcer Disease Prophylasix: ReviewedAppropriate Deep Venous Thrombosis Prophylasix: ReviewedVentilator Associated Pneumonia Prevention: ReviewedCentral Line,Associated Blood Stream Infection/Indwelling Juan Days: ReviewedAppropriate Sedation: ReviewedNeutritional Evaluation: ReviewedCentral Line-Associated Blood Stream Infection: ReviewedICU LOS/GMLOS: ReviewedAppropriate Plan of Care Discussed with Family Service Assistant TeamSAT/SBT Protocols: Reviewed for the PatientAppropriate Pain Scale By BPS/CPOT: ReviewedRASS, GCS and Delirium Severity Scale: AccessedDiscussion About Transfer/Discharge/Sph-ja-koai-care: Reviewed All pertinant labs, Imaging, EKG, telemetry data,and medical records are reviewed by me personally. I have discussed the available findings, initial diagnosis and related differentials with the patient/day care center director including RN. All concerns and questions are answered to the best of my abilities based on theavailable data.I have initiated the plan of care based on preliminary diagnosis,requested appopriate consultations with labs/imagings. Patient/day care center director verbalizes understanding of the plan of care. Plan discussed and agreed with the patient Consultants: cardiovascular surgery, critical/industrial tractor driver, hospitalist, neurology at 1927 RPT #:[id number] OF REPORTPRProgress [id number] Available for patient [id number]:28:[address] [facility] 2022-10-08 14:51:00 [id number] 4:51:00 [facility] Progress NoteREPORT#:[id number] REPORT STATUS: SignedDATE:10/08/22 TIME: 1451 PATIENT: BRIGHT SALAZAR UNIT #: [id number]#: [id number] [facility] AGE: 57 SEX: M ATTEND: Yung Loomis MDADM AUTHOR: Sy Hester MD * ALL edits or amendments must be made on the electronic/computer document * SubjectiveChief complaint:s/p fall, headache which started 4 days PTAHPI:This is 57-year-old right-handed male with PMH significant for T2DM since 2007 poorly controlled, hypertriglyceridemia, hypertension, coronary artery disease status post CABG and PCI since 2009, PAD, chronic neuropathy, 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 Patient also reports headache in the parietal temporal area x4 days, with no other accompanying symptoms, but limits his ability to go to sleep. Work-up at [facility] ED showed a large area of loss of shaw-white matter differentiation at the right parietal lobe, concerning for cerebral infarct. Neurology was consulted, but patient is already outside the window for tPA. CTAof the head and neck showed a noncalcified proximal right ICA thrombus which is at risk for further embolization, as well as an evolving right MCA stroke without mass effect. CV surgery was consulted for right carotid endarterectomy. Patient was started on heparin drip and admitted to ICU. Patient is seen in the ICU before midnight, awake, alert, uncooperative with questions secondary to complaints of pain in the left lower extremity. Patient is hemodynamically stable, on room air, currently on heparin drip as ordered by neurology. Review of SystemsUnable to obtain due to:due to severe pain, patient has only endorsed severe surgical neck pain and nausea Objective GeneralVS/I OLaboratory Tests: 10/08 10/08 10/08 10/08 1424 0616 0535 0335Chemistry Sodium (133 - 144 mmol/L) 129.0 L Potassium (3.5 - 5.1 mmol/L) 3.9 Chloride (95 - 105 mmol/L) 99 Carbon Dioxide (21 - 32 mmol/L) 24 Anion Gap (4.0 - 15.0 GAP calc) 6.0 BUN (7 - 18 MG/DL) 14 Creatinine (0.55 - 1.30 MG/DL) 0.63 Glomerular Filtr Rate (>60 estGFR) 111 Glucose (70 - 110 MG/DL) 114 H POC Glucose (70 - 119 MG/DL) 138 H 95 Calcium (8.5 - 10.1 MG/DL) 8.7 Phosphorus (2.5 - 4.9 MG/DL) 3.0 Magnesium (1.6 - 2.6 MG/DL) 1.8 Specimen Appearance (1 NORMAL Index/DL) 1 NORMAL <2 MG Specimen Hemolysis (1 NORMAL Index/DL) 1 NORMAL <10 MGCoagulation PTT ([place]) (24 - 37.7 SECONDS) 50.0 HHematology WBC (4.1 - 12.1 K/mm3) 8.3 RBC (3.8 - 5.5 M/mm3) 5.20 Hgb (10.6 - 15.8 G/DL) 14.5 Hct (31.8 - 47.4 %) 42.6 MCV (80.1 - 101.1 fL) 81.9 MCH (25.3 - 35.3 pg) 27.9 MCHC (32.7 - 35.1 G/DL) 34.0 RDW (12.2 - 16.4 %) 13.3 Plt Count (155 - 337 K/mm3) 304 MPV (7.6 - 10.4 fL) 10.4 Gran % (37.8 - 82.6 %) 58.9 Lymph % (Auto) (14.1 - 45.4 %) 23.5 Williams % (Auto) (2.5 - 11.7 %) 14.1 H Eos % (Auto) (0.0 - 6.2 %) 2.2 Baso % (Auto) (0.0 - 2.6 %) 0.8 Gran # (2.0 - 13.7 k/mm3) 4.86 Lymph # (Auto) (0.6 - 3.8 K/mm3) 1.94 Williams # (Auto) (0.11 - 0.59 K/mm3) 1.16 H Eos # (Auto) (0.0 - 0.4 K/mm3) 0.18 Baso # (Auto) (0.0 - 0.1 K/mm3) 0.07 Immature Gran % (0.0 - 2.0 %) 0.5 Nucleated RBC % (0.0 - 1.0 /100WBC%) 0.0 Nucleated RBCs # (0.00 - 0.05 K/mm3) 0.00 10/07 10/07 10/07 2252 2051 1622 Chemistry POC Glucose (70 - 119 MG/DL) 141 H 185 H Coagulation PTT (Nga) (24 - 37.7 SECONDS) 38.0 H Recent Impressions:CAT SCAN - CT ABDOMEN W/O CONTRAST 10/08 025 Report Impression - Status: SIGNED Entered: 10/08/2022 0821 IMPRESSION: Trace left pleural effusion with bibasilar atelectasis. Noacute findings in the abdomen.Impression By: Suman Dick D.O.RADIOLOGY - XR CHEST 1 V 10/08 0558 Report Impression - Status: SIGNED Entered: 10/08/2022 08 IMPRESSION: Development of bibasilar atelectasis.Impression By: Suman Dick D.O. Current Medications Sig/Ekta Start time Last Medication Dose Route Stop Time Status Admin Morphine Sulfate 4 MG ONCE 10/08 1500 CKD 05/ IV 10/08 1800 1455 Ondansetron HCl 4 MG ONCE 10/08 1500 CKD / IV 10/08 1800 1454 Glycopyrrolate 0 .STK-MED ONE 10/08 1403 DC .ROUTE Neostigmine 0 .STK-MED ONE 10/08 1403 DC Methylsulfate .ROUTE Protamine Sulfate 0 .STK-MED ONE 10/08 1330 DC .ROUTE Benzocaine/Menthol 1 LOZENGE Q2H PRN PRN 10/08 1300 AC MM 11/07 1301 Dextrose/Water 25 ML ASDIR PRN 10/08 1300 CKD IV 11/07 1301 Glucagon 1 MG ASDIR PRN 10/08 1300 AC IM 11/07 1301 Glucose Polymer 15 GM ASDIR PRN 10/08 1300 AC PO 11/07 1301 Phenol 1 SPRAY Q2H PRN PRN 10/08 1300 AC TOPICAL 11/07 1301 Calcium Chloride 0 .STK-MED ONE 10/08 1220 DC .ROUTE Succinylcholine 0 .STK-MED ONE 10/08 1218 DC Chloride .ROUTE Vancomycin HCl 1,250 GM PREOP ONCE 10/08 1200 CKD 02 Sodium Chloride 250 ML IV 10/08 2100 1202 Sodium Chloride 250 ML .STK-MED ONE 10/08 1044 DC IV Vancomycin HCl 0 .STK-MED ONE 10/08 1044 DC .ROUTE Vancomycin HCl 0 .STK-MED ONE 10/08 1043 DC .ROUTE Dexamethasone Sodium 0 .STK-MED ONE 10/08 1005 DC Phosphate .ROUTE Heparin Sodium 0 .STK-MED ONE 10/08 1005 DC .ROUTE Lidocaine HCl 5 ML .STK-MED ONE 10/08 1005 DC IV Lidocaine HCl 0 .STK-MED ONE 10/08 1005 DC .ROUTE Ondansetron HCl 0 .STK-MED ONE 10/08 1005 DC .ROUTE Rocuronium Turrell 0 .STK-MED ONE 10/08 1005 DC .ROUTE Sevoflurane 0 .STK-MED ONE 10/08 1005 DC .ROUTE Sodium Chloride 50 ML .STK-MED ONE 10/08 1005 DC IV Lidocaine HCl 0 .STK-MED ONE 10/08 1002 DC .ROUTE Fentanyl Citrate 0 .STK-MED ONE 10/08 0958 DC .ROUTE Midazolam HCl 0 .STK-MED ONE 10/08 0958 DC .ROUTE Phenylephrine HCl 0 .STK-MED ONE 10/08 0958 DC .ROUTE Propofol 20 ML .STK-MED ONE 10/08 0957 DC IV Heparin Sodium/ 250 ML TITRATE 10/07 06 CKD 10/08 Dextrose IV 11/06 0631 0434 Aspirin 81 MG DAILY 10/06 1100 AC 10/08 PO 11/05 1101 0925 Cyclobenzaprine HCl 10 MG TID PRN PRN 10/06 0900 AC 10/07 PO 11/05 0901 2203 Ezetimibe 10 MG BEDTIME 10/05 2100 AC 10/07 PO 11/04 210 205 Lidocaine 1 PATCH BEDTIME 10/05 2100 AC 10/07 TRANSDERM 11/04 210 205 Mupirocin 1 APPLIC BID 10/05 2100 AC 10/08 NASAL 10/10 0901 0926 Gabapentin 300 MG TID 10/05 1400 AC 10/08 PO 11/03 2201 0617 Sodium Chloride 250 ML BOLUS PRN 10/05 1130 AC IV Metoprolol Tartrate 50 MG DAILY 10/05 0900 AC 10/08 PO 11/04 0901 0925 Insulin Human NPH 35 UNIT BID MEALS 10/05 0800 AC 10/07 SUBQ 11/04 0801 1817 Insulin Human Regular 10 UNIT AC 10/05 0730 AC 10/07 SUBQ 11/04 0731 1817 Ceftriaxone Sodium 1 GM Q24H 10/04 2345 AC 10/07 Sterile Water 10 ML IV 10/11 2344 2252 Zolpidem Tartrate 10 MG BEDTIME 10/04 2100 AC 10/07 PO 11/03 2101 2055 Acetaminophen 650 MG Q4H PRN PRN 10/04 1915 AC 10/06 PO 11/03 191 1548 Acetaminophen 650 MG Q6H PRN PRN 10/04 1914 AC RECTAL 11/04 1915 Al Hydrox/Mg Hydrox/ 30 ML Q4H PRN PRN 10/04 1914 AC Simethicone PO 11/04 1915 Albuterol/Ipratropium 3 ML RTQ4H PRN PRN 10/04 1914 AC NEB 11/04 1915 Bisacodyl 10 MG DAILY PRN PRN 10/04 1914 AC PO 11/04 1915 Calcium Carbonate 1,000 MG DAILY PRN PRN 10/04 1914 AC PO 11/04 1915 Clonidine HCl 0.1 MG Q6H PRN PRN 10/04 1914 AC PO 11/04 1915 Dextrose/Water 25 ML ASDIR PRN 10/04 1914 CKD IV 11/04 1915 Glucagon 1 MG ASDIR PRN 10/04 1914 AC IM 11/04 1915 Glucose Polymer 15 GM ASDIR PRN 10/04 1914 AC PO 11/04 1915 Guaifenesin/ 10 ML QID PRN PRN 10/04 1914 AC 10/06 Dextromethorphan PO 11/03 Hydrocodone Bitart/ 1 TAB Q4H PRN PRN 10/04 1914 AC Acetaminophen PO 11/04 1915 Hydrocodone Bitart/ 1 TAB Q4H PRN PRN 10/04 1914 AC 10/07 Acetaminophen PO 11/03 Insulin Human Lispro See Dose ASDIR PRN 10/04 1914 AC 10/07 Insts (1) SUBQ 11/04 1915 2328 Magnesium Sulfate/ 100 ML DAILY PRN PRN 10/04 1914 AC 10/08 Dextrose IV 11/04 1915 0925 Morphine Sulfate 2 MG Q4H PRN PRN 10/04 1914 AC 05/02 IV 11/04 1915 1442 Nitroglycerin 0.4 MG Q5M PRN PRN 10/04 1914 AC SL 11/04 1915 Ondansetron HCl 4 MG Q4H PRN PRN 10/04 1914 AC IV 11/04 1915 Potassium Chloride 40 MEQ DAILY PRN PRN 10/04 1914 AC PO 11/04 1915 Potassium Phos/ 2 PKT DAILY PRN PRN 10/04 1914 CKD Sodium Phos PO 11/04 1915 Senna 1 TAB DAILY PRN PRN 10/04 1914 CKD PO 11/04 1915 Simethicone 160 MG Q6H PRN PRN 10/04 1914 AC PO 11/04 1915 Sodium Chloride 250 ML BOLUS PRN 10/04 1914 AC IV Trazodone HCl 50 MG BEDTIME PRN PRN 10/04 1914 AC PO 11/04 1915 Lactated Ringer's 1,000 ML X1ED STA 10/04 1643 AC 10/04 IV 11/15 0842 1656 Dose Instructions:(1)Insulin Human Lispro: See Admin Criteria 24 hours ending at 0700 10/08 0700 05 2300 05 1500 Intake Total 427.20 72.00 100.80 Output Total 300 400 450 Balance 127.20 -328.00 -349.20 Intake, IV 187.20 72.00 100.80 Intake, Oral 240 Number 0 Bowel Movements Number Voids 1 Output, Urine 300 400 450 Patient 87.5 kg Weight Weight Bed scale Measurement Method 24 Hour I O Total 10/08 0700 Intake Total 600.00 Output Total 1150 Balance -550.00 Laboratory Tests: 10/08 10/08 10/08 10/08 1424 0616 0535 0335Chemistry Sodium (133 - 144 mmol/L) 129.0 L Potassium (3.5 - 5.1 mmol/L) 3.9 Chloride (95 - 105 mmol/L) 99 Carbon Dioxide (21 - 32 mmol/L) 24 Anion Gap (4.0 - 15.0 GAP calc) 6.0 BUN (7 - 18 MG/DL) 14 Creatinine (0.55 - 1.30 MG/DL) 0.63 Glomerular Filtr Rate (>60 estGFR) 111 Glucose (70 - 110 MG/DL) 114 H POC Glucose (70 - 119 MG/DL) 138 H 95 Calcium (8.5 - 10.1 MG/DL) 8.7 Phosphorus (2.5 - 4.9 MG/DL) 3.0 Magnesium (1.6 - 2.6 MG/DL) 1.8 Specimen Appearance (1 NORMAL Index/DL) 1 NORMAL <2 MG Specimen Hemolysis (1 NORMAL Index/DL) 1 NORMAL <10 MGCoagulation PTT (Nga) (24 - 37.7 SECONDS) 50.0 HHematology WBC (4.1 - 12.1 K/mm3) 8.3 RBC (3.8 - 5.5 M/mm3) 5.20 Hgb (10.6 - 15.8 G/DL) 14.5 Hct (31.8 - 47.4 %) 42.6 MCV (80.1 - 101.1 fL) 81.9 MCH (25.3 - 35.3 pg) 27.9 MCHC (32.7 - 35.1 G/DL) 34.0 RDW (12.2 - 16.4 %) 13.3 Plt Count (155 - 337 K/mm3) 304 MPV (7.6 - 10.4 fL) 10.4 Gran % (37.8 - 82.6 %) 58.9 Lymph % (Auto) (14.1 - 45.4 %) 23.5 Williams % (Auto) (2.5 - 11.7 %) 14.1 H Eos % (Auto) (0.0 - 6.2 %) 2.2 Baso % (Auto) (0.0 - 2.6 %) 0.8 Gran # (2.0 - 13.7 k/mm3) 4.86 Lymph # (Auto) (0.6 - 3.8 K/mm3) 1.94 Williams # (Auto) (0.11 - 0.59 K/mm3) 1.16 H Eos # (Auto) (0.0 - 0.4 K/mm3) 0.18 Baso # (Auto) (0.0 - 0.1 K/mm3) 0.07 Immature Gran % (0.0 - 2.0 %) 0.5 Nucleated RBC % (0.0 - 1.0 /100WBC%) 0.0 Nucleated RBCs # (0.00 - 0.05 K/mm3) 0.00 10/07 10/07 10/07 2252 2051 1622 Chemistry POC Glucose (70 - 119 MG/DL) 141 H 185 H Coagulation PTT (Nga) (24 - 37.7 SECONDS) 38.0 H Recent Impressions:CAT SCAN - CT ABDOMEN W/O CONTRAST 10/08 250 Report Impression - Status: SIGNED Entered: 10/08/2022 0821 IMPRESSION: Trace left pleural effusion with bibasilar atelectasis. Noacute findings in the abdomen.Impression By: Suman - Silas Dick D.O.RADIOLOGY - XR CHEST 1 V 10/08 0558 Report Impression - Status: SIGNED Entered: 10/08/2022 0801 IMPRESSION: Development of bibasilar atelectasis.Impression By: Suman - Silas Dick D.O. Current Medications Sig/Ekta Start time Last Medication Dose Route Stop Time Status Admin Morphine Sulfate 4 MG ONCE 10/08 1500 CKD IV 10/08 1800 Ondansetron HCl 4 MG ONCE 10/08 1500 CKD IV 10/08 1800 Glycopyrrolate 0 .STK-MED ONE 10/08 1403 DC .ROUTE Neostigmine 0 .STK-MED ONE 10/08 1403 DC Methylsulfate .ROUTE Protamine Sulfate 0 .STK-MED ONE 10/08 1330 DC .ROUTE Benzocaine/Menthol 1 LOZENGE Q2H PRN PRN 10/08 1300 AC MM 11/07 1301 Dextrose/Water 25 ML ASDIR PRN 10/08 1300 CKD IV 11/07 1301 Glucagon 1 MG ASDIR PRN 10/08 1300 AC IM 11/07 1301 Glucose Polymer 15 GM ASDIR PRN 10/08 1300 AC PO 11/07 1301 Phenol 1 SPRAY Q2H PRN PRN 10/08 1300 AC TOPICAL 11/07 1301 Calcium Chloride 0 .STK-MED ONE 10/08 1220 DC .ROUTE Succinylcholine 0 .STK-MED ONE 10/08 1218 DC Chloride .ROUTE Vancomycin HCl 1,250 GM PREOP ONCE 10/08 1200 CKD 10/08 Sodium Chloride 250 ML IV 10/08 2100 1202 Sodium Chloride 250 ML .STK-MED ONE 10/08 1044 DC IV Vancomycin HCl 0 .STK-MED ONE 10/08 1044 DC .ROUTE Vancomycin HCl 0 .STK-MED ONE 10/08 1043 DC .ROUTE Dexamethasone Sodium 0 .STK-MED ONE 10/08 1005 DC Phosphate .ROUTE Heparin Sodium 0 .STK-MED ONE 10/08 1005 DC .ROUTE Lidocaine HCl 5 ML .STK-MED ONE 10/08 1005 DC IV Lidocaine HCl 0 .STK-MED ONE 10/08 1005 DC .ROUTE Ondansetron HCl 0 .STK-MED ONE 10/08 1005 DC .ROUTE Rocuronium Turrell 0 .STK-MED ONE 10/08 1005 DC .ROUTE Sevoflurane 0 .STK-MED ONE 10/08 1005 DC .ROUTE Sodium Chloride 50 ML .STK-MED ONE 10/08 1005 DC IV Lidocaine HCl 0 .STK-MED ONE 10/08 1002 DC .ROUTE Fentanyl Citrate 0 .STK-MED ONE 10/08 0958 DC .ROUTE Midazolam HCl 0 .STK-MED ONE 10/08 0958 DC .ROUTE Phenylephrine HCl 0 .STK-MED ONE 10/08 0958 DC .ROUTE Propofol 20 ML .STK-MED ONE 10/08 0957 DC IV Heparin Sodium/ 250 ML TITRATE 10/07 0630 CKD 10/08 Dextrose IV 11/06 0631 0434 Aspirin 81 MG DAILY 10/06 1100 AC 10/08 PO 11/05 1101 0925 Cyclobenzaprine HCl 10 MG TID PRN PRN 10/06 0900 AC 10/07 PO 11/05 0901 220 Ezetimibe 10 MG BEDTIME 10/05 2100 AC 10/07 PO 11/04 2100 205 Lidocaine 1 PATCH BEDTIME 10/05 2100 AC 10/07 TRANSDERM 11/04 210 205 Mupirocin 1 APPLIC BID 10/05 2100 AC 10/08 NASAL 10/10 0901 0926 Gabapentin 300 MG TID 10/05 1400 AC 10/08 PO 11/03 2200 0617 Sodium Chloride 250 ML BOLUS PRN 10/05 1130 AC IV Metoprolol Tartrate 50 MG DAILY 10/05 0900 AC 10/08 PO 11/04 0901 0925 Insulin Human NPH 35 UNIT BID MEALS 10/05 0800 AC 10/07 SUBQ 11/04 0801 1817 Insulin Human Regular 10 UNIT AC 10/05 0730 AC 10/07 SUBQ 11/04 0731 1817 Ceftriaxone Sodium 1 GM Q24H 10/04 2345 AC 10/07 Sterile Water 10 ML IV 10/11 2344 2252 Zolpidem Tartrate 10 MG BEDTIME 10/04 2100 AC 10/07 PO 11/03 2100 205 Acetaminophen 650 MG Q4H PRN PRN 10/04 1914 AC 10/06 PO 11/04 1915 1548 Acetaminophen 650 MG Q6H PRN PRN 10/04 191 AC RECTAL 11/04 1915 Al Hydrox/Mg Hydrox/ 30 ML Q4H PRN PRN 10/04 1914 AC Simethicone PO 11/04 1915 Albuterol/Ipratropium 3 ML RTQ4H PRN PRN 10/04 1914 AC NEB 11/04 1915 Bisacodyl 10 MG DAILY PRN PRN 10/04 1914 AC PO 11/04 1915 Calcium Carbonate 1,000 MG DAILY PRN PRN 10/04 1914 AC PO 11/04 1915 Clonidine HCl 0.1 MG Q6H PRN PRN 10/04 1914 AC PO 11/04 1915 Dextrose/Water 25 ML ASDIR PRN 10/04 1914 CKD IV 11/04 1915 Glucagon 1 MG ASDIR PRN 10/04 1914 AC IM 11/04 1915 Glucose Polymer 15 GM ASDIR PRN 10/04 1914 AC PO 11/04 1915 Guaifenesin/ 10 ML QID PRN PRN 10/04 1914 AC 10/06 Dextromethorphan PO 11/04 1915 0923 Hydrocodone Bitart/ 1 TAB Q4H PRN PRN 10/04 1914 AC Acetaminophen PO 11/04 1915 Hydrocodone Bitart/ 1 TAB Q4H PRN PRN 10/04 1914 AC 10/07 Acetaminophen PO 11/03 Insulin Human Lispro See Dose ASDIR PRN 10/04 1914 AC 10/07 Insts (1) SUBQ 11/04 1915 2328 Magnesium Sulfate/ 100 ML DAILY PRN PRN 10/04 1914 AC 10/08 Dextrose IV 11/04 1915 0925 Morphine Sulfate 2 MG Q4H PRN PRN 10/04 1914 AC 05/02 IV 11/04 1915 1442 Nitroglycerin 0.4 MG Q5M PRN PRN 10/04 1914 AC SL 11/04 1915 Ondansetron HCl 4 MG Q4H PRN PRN 10/04 1914 AC IV 11/04 1915 Potassium Chloride 40 MEQ DAILY PRN PRN 10/04 1914 AC PO 11/04 1915 Potassium Phos/ 2 PKT DAILY PRN PRN 10/04 1914 CKD Sodium Phos PO 11/04 1915 Senna 1 TAB DAILY PRN PRN 10/04 1914 CKD PO 11/04 1915 Simethicone 160 MG Q6H PRN PRN 10/04 1914 AC PO 11/04 1915 Sodium Chloride 250 ML BOLUS PRN 10/04 1914 AC IV Trazodone HCl 50 MG BEDTIME PRN PRN 10/04 1914 AC PO 11/04 1915 Lactated Ringer's 1,000 ML X1ED STA 10/04 1643 AC 10/04 IV 11/15 0842 1656 Dose Instructions:(1)Insulin Human Lispro: See Admin Criteria 24 hours ending at 0700 10/08 0700 10/07 2300 05 1500 Intake Total 427.20 72.00 100.80 Output Total 300 400 450 Balance 127.20 -328.00 -349.20 Intake, IV 187.20 72.00 100.80 Intake, Oral 240 Number 0 Bowel Movements Number Voids 1 Output, Urine 300 400 450 Patient 87.5 kg Weight Weight Bed scale Measurement Method 24 Hour I O Total 10/08 0700 Intake Total 600.00 Output Total 1150 Balance -550.00 Last Documented: Result Date Time Pulse Ox 94 10/08 1446 B/P 148/61 10/08 1446 B/P Mean 92 10/08 1446 Pulse 90 10/08 1446 Resp 27 10/08 1446 Temp 98.4 10/08 1431 FiO2 21 / 0710 O2 Delivery Room air 10/08 0710 24 hour I O ending at 0700: 10/08 0700 10/07 1900 Intake Total 427.20 172.80 Output Total 300 850 Balance 127.20 -677.20 Intake, IV 187.20 172.80 Intake, Oral 240 Number 0 Bowel Movements Number Voids 1 Output, Urine 300 850 Patient 87.5 kg Weight Weight Bed scale Measurement Method PATIENT WEIGHT: Weight (lb): 192Weight (oz): 14.47Weight (kg): 87.500 Physical ExamGeneral appearance: alert, awake, oriented, mental status normal, no respiratorydistressHead/eyes: atraumatic, clear cornea, EOMI, normal conjunctiva/sclera, normocephalic, PERRLENT: moist mucosal membranes, normal dentitionNeck: full range of motion, non-tender, normal thyroid, supple/no meningismus, no JVDCardiovascular: normal capillary refill, normal heart sounds, regular rate and rhythm, normal S1/S2, no ectopy, no murmurRespiratory: aerating well, clear to auscultation, symmetric expansion, no distress, room airAbdomen: obese, soft, non-tender, normal bowel sounds, no distention, no guardingGenitourinary: no bladder distention, no urinary catheterExtremities: moves all, normal capillary refill, normal range of motion, no calftenderness, no clubbing, no cyanosis, no edema Vascular pulse assessment:palpated: R dorsalis pedis, R radial, L radial. non-palpable: L popliteal. 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 Patient also reports headache in the parietal temporal area x4 days, with no other accompanying symptoms, but limits his ability to go to sleep. Assessment:Right MCA stroke, secondary to a right distal CCA calcified plaque s/p Right-Sided Carotid Endarterectomy (10/08/22)Right proximal ICA [id number] (HbA1c 10.9)Diabetic neuropathyDyslipidemiaHypertensionCAD, with History of CABG and PCI Peripheral Arterial Disease, history of Left BKALeft BKA Stump Wound Plan:Neurology following10/05/22 CTA Neck: right distal CCA calcified plaque with appearance of superimposed thrombus possible due to ruptured plaque, as per impression by Neurology10/07/22 MRI Brain: Acute/early subacute ischemic infarct in involving the rightparietal and temporal lobes and insular cortex. Small punctate petechial blood products are noted within the right parietal cortex. No large hemorrhagic transformation is seen.2Chronic small vessel ischemic white matter disease.10/08/22: underwent right-sided carotid endarterectomy to be performed on 10/08/22Target BP goal per CV Surgery: SBP < 150 mmHgAspirin 81 mg dailyDid not start Statin - given report of Arthralgia as a response to statin treatments in the past. Therefore on Zetia insteadPending TTE Platelet response to P2Y12 inhibitor orderedNormal renal function, monitor mild hyponatremiaStable CBC; monitor dailyLeft stump BKA wound, Wound Care consulted10/04 Blood cultures: negative to dateUA not suggestive of UTICOntinued on Ceftriaxone and VancomycinHemoglobin A1c 10.9Continue subQ Insulin regimen Also, left-sided pleurisy: though remarkable findings not demonstrated on recentCT Chest and CTA chest findings. In addition, no remarkable findings on CT Abdomen/Pelvis with IV Contrast. Diet: Cardiac/ADA diet PT/OT Following VTE ppx: SCDs, no anticoagulation until cleared by CV SurgeryGI ppx: CODE STATUS: FullDispo: ICU Total critical care time >35 minutes. Total critical care time documented does not include time spent on separately billed procedures or the services of residents, students, nurses or physician assistants. I personally saw and examined the patient. I have reviewed all diagnostic interpretations and treatment plans as written. I was present for the wyatt portions of any proceduresperformed and the inclusive time noted in any critical care statement. Critical care time includes patient management by me, time spent at the patients bedside,time to review lab and imaging results, discussing patient care, documentation in the medical record, and time spent with the family or caregiver. Consultants: cardiovascular surgery, critical/industrial tractor driver, hospitalist, neurology at 1502 RPT #:[id number] OF REPORTPRProgress [id number]:51:[id number] Available for patient [id number]:02:[address] [facility] 2022-10-08 14:02:00 [id number]/cMmclbsatTm5 Wv82 [id number] 4:02:00 [facility] ([facility])DT Operative NoteREPORT#:[id number] REPORT STATUS: SignedDATE:10/08/22 TIME: 1402 PATIENT: BRIGHT SALAZAR UNIT #: [id number]#: [id number] [facility] AGE: 57 SEX: M ATTEND: Yung Loomis [facility] AUTHOR: Kelvin Kern MD * ALL edits or amendments must be made on the electronic/computer document * Operative Report Operative NoteNote:Note:Name of SurgeonShuab Erlin Cain AssistantSRIDHAR Worley. AnesthesiaGeneral endotracheal tube anesthesia Blood loss50 mL. Preoperative diagnosis:Right carotid stenosis with acute thrombosis.Acute stroke with left-sided weakness. Postoperative diagnosisSame. Name of operative procedureRight carotid endarterectomy with bovine pericardial patch angioplasty. Indication for the [id number] male who presented with right-sided cerebral stroke and left-sided weakness previous history of below-knee amputation of the left side. The patient was found to have a thrombus in the left internal carotid artery with stenosis. The patient was placed on heparin drip and stabilized. Thereafter cardiovascular surgery was consulted for carotid endarterectomy. All risk benefits and alternatives of the procedure were discussed with the patient patient consented for the procedure. Intraoperative findingsThe patient had severe right carotid stenosis along with a clot attached to the calcification. The right vagus and hypoglossal nerves were identified and preserved there was excellent flow through the right common carotid external carotid and common carotid . There was no drop in cerebral oximetry during clamping of the carotid arteries on the left side. Details operative procedureThe patient was brought to the OR laid supine the bed general endotracheal tube anesthesia was instituted. A longitudinal incision was made along the sternocleidomastoid muscle. The carotid sheath was entered the hypoglossal and vagus nerves were identified and preserved. Systemic heparinization was given. The right common carotid internal and external carotid artery were clamped. A longitudinal arteriotomy was made onto the common carotid artery and extended into the internal carotid artery. Careful endarterectomy was carried out starting from the common carotid artery followed by eversion endarterectomy of the external carotid and the internal carotid artery. Excellent feathering of the edges was seen. The clot which was attached to the calcification was removed along with the endarterectomy specimen. Careful debridement was carried out next a bovine pericardial patch was sutured to the arteriotomy using running 6-0 Prolene suture. Next the external carotid artery clamp was removed followed by the common carotid and lastly the internal carotid artery clamp. Systemic heparinization was reversed with protamine Hemostasis was assured small Boris drain was placed in the neck incision the fascia and skin were closed in multiple layers of sutures. All instrument sponge and needle count found to be correct at the end of procedure. at 1406 RPT #:[id number] OF REPORTOPOperative [id number]:[id number] AVAvailable for patient [id number]:06:[address] [facility] 2022-10-07 18:05:00 [id number] JJessica kNASWOTJhAn/[id number] 8:05:00 [facility] Progress NoteREPORT#:[id number] REPORT STATUS: SignedDATE:10/07/22 TIME: 1805 PATIENT: BRIGHT SALAZAR UNIT #: [id number]#: [id number] [address]FE: [address] AGE: 57 SEX: M ATTEND: Kiel Gardiner [facility] AUTHOR: Sy Hester MD * ALL edits or amendments must be made on the electronic/computer document * SubjectiveChief complaint:s/p fall, headache which started 4 days PTAHPI:This is 57-year-old right-handed male with PMH significant for T2DM since 2007 poorly controlled, hypertriglyceridemia, hypertension, coronary artery disease status post CABG and PCI since 2009, PAD, chronic neuropathy, 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 Patient also reports headache in the parietal temporal area x4 days, with no other accompanying symptoms, but limits his ability to go to sleep. Work-up at [facility] ED showed a large area of loss of shaw-white matter differentiation at the right parietal lobe, concerning for cerebral infarct. Neurology was consulted, but patient is already outside the window for tPA. CTAof the head and neck showed a noncalcified proximal right ICA thrombus which is at risk for further embolization, as well as an evolving right MCA stroke without mass effect. CV surgery was consulted for right carotid endarterectomy. Patient was started on heparin drip and admitted to ICU. Patient is seen in the ICU before midnight, awake, alert, uncooperative with questions secondary to complaints of pain in the left lower extremity. Patient is hemodynamically stable, on room air, currently on heparin drip as ordered by neurology. Review of SystemsRespiratory:Reports: pleuritic pain. Cardiovascular:Reports: chest pain (left-sided chest pain, same). GI:Denies: abdominal pain, nausea, vomiting. All systems rev neg: except as marked Objective GeneralVS/I OLaboratory Tests: 10/07 10/07 10/07 10/07 10/07 1622 1258 1239 0841 0601 Chemistry POC Glucose (70 - 119 MG/DL) 185 H 172 H 142 H Coagulation PTT ([place]) (24 - 37.7 SECONDS) 39.9 H 75.9 H Plt P2Y12 React Units (() PRU) 166 10/07 10/07 10/06 10/06 0357 0015 6 1848Chemistry Sodium (133 - 144 mmol/L) 133.0 Potassium (3.5 - 5.1 mmol/L) 3.6 Chloride (95 - 105 mmol/L) 100 Carbon Dioxide (21 - 32 mmol/L) 26 Anion Gap (4.0 - 15.0 GAP calc) 7.0 BUN (7 - 18 MG/DL) 14 Creatinine (0.55 - 1.30 MG/DL) 0.73 Glomerular Filtr Rate (>60 estGFR) 106 Glucose (70 - 110 MG/DL) 126 H POC Glucose (70 - 119 MG/DL) 160 H 117 Calcium (8.5 - 10.1 MG/DL) 8.7 Specimen Appearance (1 NORMAL Index/DL) 1 NORMAL <2 MG Specimen Hemolysis (1 NORMAL Index/DL) 1 NORMAL <10 MGCoagulation PTT ([place]) (24 - 37.7 SECONDS) 68.1 HHematology WBC (4.1 - 12.1 K/mm3) 8.8 RBC (3.8 - 5.5 M/mm3) 5.06 Hgb (10.6 - 15.8 G/DL) 14.3 Hct (31.8 - 47.4 %) 40.9 MCV (80.1 - 101.1 fL) 80.8 MCH (25.3 - 35.3 pg) 28.3 MCHC (32.7 - 35.1 G/DL) 35.0 RDW (12.2 - 16.4 %) 13.2 Plt Count (155 - 337 K/mm3) 292 MPV (7.6 - 10.4 fL) 10.5 H 10/06 1840 Chemistry Troponin I High Sens (0 - 45 ng/L) 21 Coagulation PT (9.4 - 12.5 SECONDS) 12.2 INR (0.88 - 1.13 INR Unit) 1.08 PTT ([place]) (24 - 37.7 SECONDS) 61.0 H Recent Impressions:MAGNETIC RESONANCE IMAGING - MRI BRAIN W/O CONTRAST 10/07 1150 Report Impression - Status: SIGNED Entered: 10/07/2022 1423 IMPRESSION: 1. Acute/early subacute ischemic infarct in involving the rightparietal and temporal lobes and insular cortex. Small punctatepetechial blood products are noted within the right parietal cortex.No large hemorrhagic transformation is seen.2. Chronic small vessel ischemic white matter disease.3. Partly visualized lesions within the right parotid gland, bettervisualized on recent CT of the neck. Surgical consultationrecommended.Impression By: Adry Nevarez M.D. Current Medications Sig/Ekta Start time Last Medication Dose Route Stop Time Status Admin Cefepime HCl 1 GM ONCE ONE 10/08 1200 CAN Sterile Water 10 ML IV 10/08 1202 Vancomycin HCl 1,250 GM PREOP ONCE 10/08 1200 CKD Sodium Chloride 250 ML IV 10/08 2100 Heparin Sodium/ 250 ML TITRATE 10/07 0530 CKD 10/07 Dextrose IV 11/06 0631 0634 Aspirin 81 MG DAILY 10/06 1100 AC 10/07 PO 11/05 1101 0842 Cyclobenzaprine HCl 10 MG TID PRN PRN 10/06 0900 AC 10/06 PO 11/05 0901 2102 Ezetimibe 10 MG BEDTIME 10/05 2100 AC 10/06 PO 11/04 210 204 Lidocaine 1 PATCH BEDTIME 10/05 2100 AC 10/06 TRANSDERM 11/04 Mupirocin 1 APPLIC BID 10/05 2100 AC 10/07 NASAL 10/10 0901 0842 Gabapentin 300 MG TID 10/05 1400 AC 10/07 PO 11/03 2201 1325 Sodium Chloride 250 ML BOLUS PRN 10/05 1130 AC IV Heparin Sodium 250 ML TITRATE 10/05 1100 DC 10/06 (Porcine) IV 11/04 1101 1307 Metoprolol Tartrate 50 MG DAILY 10/05 0900 AC 10/07 PO 11/04 0901 0842 Insulin Human NPH 35 UNIT BID MEALS 10/05 0800 AC 10/07 SUBQ 11/04 0801 0853 Insulin Human Regular 10 UNIT AC 10/05 0730 AC 10/07 SUBQ 11/04 0731 1325 Ceftriaxone Sodium 1 GM Q24H 10/04 2345 AC 10/06 Sterile Water 10 ML IV 10/11 2344 2331 Zolpidem Tartrate 10 MG BEDTIME 10/04 2100 AC 10/06 PO 11/03 2100 204 Acetaminophen 650 MG Q4H PRN PRN 10/04 1914 AC 10/06 PO 11/04 1915 1548 Acetaminophen 650 MG Q6H PRN PRN 10/04 1914 AC RECTAL 11/04 1915 Al Hydrox/Mg Hydrox/ 30 ML Q4H PRN PRN 10/04 1914 AC Simethicone PO 11/04 1915 Albuterol/Ipratropium 3 ML RTQ4H PRN PRN 10/04 1914 AC NEB 11/04 1915 Bisacodyl 10 MG DAILY PRN PRN 10/04 1914 AC PO 11/04 1915 Calcium Carbonate 1,000 MG DAILY PRN PRN 10/04 1914 AC PO 11/04 1915 Clonidine HCl 0.1 MG Q6H PRN PRN 10/04 1914 AC PO 11/04 1915 Dextrose/Water 25 ML ASDIR PRN 10/04 1914 CKD IV 11/04 1915 Glucagon 1 MG ASDIR PRN 10/04 1914 AC IM 11/04 1915 Glucose Polymer 15 GM ASDIR PRN 10/04 1914 AC PO 11/04 1915 Guaifenesin/ 10 ML QID PRN PRN 10/04 1914 AC 10/06 Dextromethorphan PO 11/04 1915 0923 Hydrocodone Bitart/ 1 TAB Q4H PRN PRN 10/04 1914 AC Acetaminophen PO 11/04 1915 Hydrocodone Bitart/ 1 TAB Q4H PRN PRN 10/04 1914 AC 10/07 Acetaminophen PO 11/04 1915 1625 Insulin Human Lispro See Dose ASDIR PRN 10/04 1914 AC 10/06 Insts (1) SUBQ 11/04 1915 2150 Magnesium Sulfate/ 100 ML DAILY PRN PRN 10/04 1914 AC 10/06 Dextrose IV 11/04 1915 0924 Morphine Sulfate 2 MG Q4H PRN PRN 10/04 1914 AC 10/07 IV 11/04 1915 1452 Nitroglycerin 0.4 MG Q5M PRN PRN 10/04 1914 AC SL 11/04 1915 Ondansetron HCl 4 MG Q4H PRN PRN 10/04 1914 AC IV 11/04 1915 Potassium Chloride 40 MEQ DAILY PRN PRN 10/04 1914 AC PO 11/04 1915 Potassium Phos/ 2 PKT DAILY PRN PRN 10/04 1914 CKD Sodium Phos PO 11/04 1915 Senna 1 TAB DAILY PRN PRN 10/04 1914 CKD PO 11/04 1915 Simethicone 160 MG Q6H PRN PRN 10/04 1914 AC PO 11/04 1915 Sodium Chloride 250 ML BOLUS PRN 10/04 1914 AC IV Trazodone HCl 50 MG BEDTIME PRN PRN 10/04 1914 AC PO 11/04 1915 Lactated Ringer's 1,000 ML X1ED STA 10/04 1643 AC 10/04 IV 11/15 0842 1656 Dose Instructions:(1)Insulin Human Lispro: See Admin Criteria 24 hours ending at 0700 10/07 0700 10/06 2300 10/06 1500 Intake Total 423.60 1378.20 Output Total 650 700 Balance -226.40 678.20 Intake, IV 183.60 278.20 Intake, Oral 240 1100 Number 0 Bowel Movements Number Voids 2 2 Output, Urine 650 700 24 Hour I O Total 10/07 0700 Intake Total 1801.80 Output Total 1350 Balance 451.80 Laboratory Tests: 10/07 10/07 10/07 10/07 10/07 1622 1258 1239 0841 0601 Chemistry POC Glucose (70 - 119 MG/DL) 185 H 172 H 142 H Coagulation PTT ([place]) (24 - 37.7 SECONDS) 39.9 H 75.9 H Plt P2Y12 React Units (() PRU) 166 10/07 10/07 10/06 10/06 0357 0015 6 1848Chemistry Sodium (133 - 144 mmol/L) 133.0 Potassium (3.5 - 5.1 mmol/L) 3.6 Chloride (95 - 105 mmol/L) 100 Carbon Dioxide (21 - 32 mmol/L) 26 Anion Gap (4.0 - 15.0 GAP calc) 7.0 BUN (7 - 18 MG/DL) 14 Creatinine (0.55 - 1.30 MG/DL) 0.73 Glomerular Filtr Rate (>60 estGFR) 106 Glucose (70 - 110 MG/DL) 126 H POC Glucose (70 - 119 MG/DL) 160 H 117 Calcium (8.5 - 10.1 MG/DL) 8.7 Specimen Appearance (1 NORMAL Index/DL) 1 NORMAL <2 MG Specimen Hemolysis (1 NORMAL Index/DL) 1 NORMAL <10 MGCoagulation PTT ([place]) (24 - 37.7 SECONDS) 68.1 HHematology WBC (4.1 - 12.1 K/mm3) 8.8 RBC (3.8 - 5.5 M/mm3) 5.06 Hgb (10.6 - 15.8 G/DL) 14.3 Hct (31.8 - 47.4 %) 40.9 MCV (80.1 - 101.1 fL) 80.8 MCH (25.3 - 35.3 pg) 28.3 MCHC (32.7 - 35.1 G/DL) 35.0 RDW (12.2 - 16.4 %) 13.2 Plt Count (155 - 337 K/mm3) 292 MPV (7.6 - 10.4 fL) 10.5 H 10/06 1840 Chemistry Troponin I High Sens (0 - 45 ng/L) 21 Coagulation PT (9.4 - 12.5 SECONDS) 12.2 INR (0.88 - 1.13 INR Unit) 1.08 PTT ([place]) (24 - 37.7 SECONDS) 61.0 H Recent Impressions:MAGNETIC RESONANCE IMAGING - MRI BRAIN W/O CONTRAST 10/07 1150 Report Impression - Status: SIGNED Entered: 10/07/2022 4413 IMPRESSION: 1. Acute/early subacute ischemic infarct in involving the rightparietal and temporal lobes and insular cortex. Small punctatepetechial blood products are noted within the right parietal cortex.No large hemorrhagic transformation is seen.2. Chronic small vessel ischemic white matter disease.3. Partly visualized lesions within the right parotid gland, bettervisualized on recent CT of the neck. Surgical consultationrecommended.Impression By: Adry Nevarez M.D. Current Medications Sig/Ekta Start time Last Medication Dose Route Stop Time Status Admin Cefepime HCl 1 GM ONCE ONE 10/08 1200 CAN Sterile Water 10 ML IV 10/08 1202 Vancomycin HCl 1,250 GM PREOP ONCE 10/08 1200 CKD Sodium Chloride 250 ML IV 10/08 2100 Heparin Sodium/ 250 ML TITRATE 10/07 0630 CKD 10/07 Dextrose IV 11/06 0631 0634 Aspirin 81 MG DAILY 10/06 1100 AC 10/07 PO 11/05 1101 0842 Cyclobenzaprine HCl 10 MG TID PRN PRN 10/06 0900 AC 10/06 PO 11/05 0901 2102 Ezetimibe 10 MG BEDTIME 10/05 2100 AC 10/06 PO 11/04 2101 2047 Lidocaine 1 PATCH BEDTIME 10/05 2100 AC 10/06 TRANSDERM 11/04 2101 2048 Mupirocin 1 APPLIC BID 10/05 2100 AC 10/07 NASAL 10/10 0901 0842 Gabapentin 300 MG TID 10/05 1400 AC 10/07 PO 11/03 2201 1325 Sodium Chloride 250 ML BOLUS PRN 10/05 1130 AC IV Heparin Sodium 250 ML TITRATE 10/05 1100 DC 10/06 (Porcine) IV 11/04 1101 1307 Metoprolol Tartrate 50 MG DAILY 10/05 0900 AC 10/07 PO 11/04 0901 0842 Insulin Human NPH 35 UNIT BID MEALS 10/05 0800 AC 10/07 SUBQ 11/04 0801 0853 Insulin Human Regular 10 UNIT AC 10/05 0730 AC 10/07 SUBQ 11/04 0731 1325 Ceftriaxone Sodium 1 GM Q24H 10/04 2344 AC 10/06 Sterile Water 10 ML IV 10/11 2344 2331 Zolpidem Tartrate 10 MG BEDTIME 10/04 2100 AC 10/06 PO 11/03 2100 204 Acetaminophen 650 MG Q4H PRN PRN 10/04 1914 AC 10/06 PO 11/04 1915 1548 Acetaminophen 650 MG Q6H PRN PRN 10/04 1914 AC RECTAL 11/04 1915 Al Hydrox/Mg Hydrox/ 30 ML Q4H PRN PRN 10/04 1914 AC Simethicone PO 11/04 1915 Albuterol/Ipratropium 3 ML RTQ4H PRN PRN 10/04 1914 AC NEB 11/04 1915 Bisacodyl 10 MG DAILY PRN PRN 10/04 1914 AC PO 11/04 1915 Calcium Carbonate 1,000 MG DAILY PRN PRN 10/04 1914 AC PO 11/04 1915 Clonidine HCl 0.1 MG Q6H PRN PRN 10/04 1914 AC PO 11/04 1915 Dextrose/Water 25 ML ASDIR PRN 10/04 1914 CKD IV 11/04 1915 Glucagon 1 MG ASDIR PRN 10/04 1914 AC IM 11/04 1915 Glucose Polymer 15 GM ASDIR PRN 10/04 1914 AC PO 11/04 1915 Guaifenesin/ 10 ML QID PRN PRN 10/04 1914 AC 10/06 Dextromethorphan PO 11/04 1915 0923 Hydrocodone Bitart/ 1 TAB Q4H PRN PRN 10/04 1914 AC Acetaminophen PO 11/04 1915 Hydrocodone Bitart/ 1 TAB Q4H PRN PRN 10/04 1914 AC 10/07 Acetaminophen PO 11/04 1915 1625 Insulin Human Lispro See Dose ASDIR PRN 10/04 1914 AC 10/06 Insts (1) SUBQ 11/04 1915 2150 Magnesium Sulfate/ 100 ML DAILY PRN PRN 10/04 1914 AC 10/06 Dextrose IV 11/04 1915 0924 Morphine Sulfate 2 MG Q4H PRN PRN 10/04 1914 AC 05/01 IV 11/04 1915 1452 Nitroglycerin 0.4 MG Q5M PRN PRN 10/04 1914 AC SL 11/04 1915 Ondansetron HCl 4 MG Q4H PRN PRN 10/04 1914 AC IV 11/04 1915 Potassium Chloride 40 MEQ DAILY PRN PRN 10/04 1914 AC PO 11/04 1915 Potassium Phos/ 2 PKT DAILY PRN PRN 10/04 1914 CKD Sodium Phos PO 11/04 1915 Senna 1 TAB DAILY PRN PRN 10/04 1914 CKD PO 11/04 1915 Simethicone 160 MG Q6H PRN PRN 10/04 1914 AC PO 11/04 1915 Sodium Chloride 250 ML BOLUS PRN 10/04 1914 AC IV Trazodone HCl 50 MG BEDTIME PRN PRN 10/04 1914 AC PO 11/04 1915 Lactated Ringer's 1,000 ML X1ED STA 10/04 1643 AC 10/04 IV 11/15 0842 1656 Dose Instructions:(1)Insulin Human Lispro: See Admin Criteria 24 hours ending at 0700 10/07 0700 10/06 2300 10/06 1500 Intake Total 423.60 1378.20 Output Total 650 700 Balance -226.40 678.20 Intake, IV 183.60 278.20 Intake, Oral 240 1100 Number 0 Bowel Movements Number Voids 2 2 Output, Urine 650 700 24 Hour I O Total 10/07 07 Intake Total 1801.80 Output Total 1350 Balance 451.80 Last Documented: Result Date Time Pulse 75 10/07 1548 Resp 28 10/07 1548 Pulse Ox 94 10/07 1545 B/P 137/83 10/07 1500 B/P Mean 104 10/07 1500 Temp 98.4 10/07 1200 FiO2 21 10/07 0839 O2 Delivery Room air 10/07 0839 24 hour I O ending at 0700: 10/07 0710/06 1900 Intake Total 423.60 1378.20 Output Total 650 700 Balance -226.40 678.20 Intake, IV 183.60 278.20 Intake, Oral 240 1100 Number 0 Bowel Movements Number Voids 2 2 Output, Urine 650 700 PATIENT WEIGHT: Weight (lb): Weight (oz): Weight (kg): 90.700 Physical ExamGeneral appearance: alert, awake, oriented, no acute distress, conversational, mental status normal, no respiratory distressHead/eyes: atraumatic, clear cornea, EOMI, normal conjunctiva/sclera, normocephalic, PERRLENT: moist mucosal membranes, normal dentitionNeck: full range of motion, non-tender, normal thyroid, supple/no meningismus, no JVDCardiovascular: normal capillary refill, normal heart sounds, regular rate and rhythm, normal S1/S2, no ectopy, no murmurRespiratory: aerating well, clear to auscultation, symmetric expansion, no distressAbdomen: obese, soft, non-tender, normal bowel sounds, no distention, no guardingGenitourinary: no bladder distention, no urinary catheterExtremities: moves all, normal capillary refill, normal range of motion, no calftenderness, no clubbing, no cyanosis, no edema Vascular pulse assessment:palpated: R dorsalis pedis, R radial, L radial. non-palpable: L popliteal. 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 Patient also reports headache in the parietal temporal area x4 days, with no other accompanying symptoms, but limits his ability to go to sleep. Assessment:Right MCA stroke, secondary to a right distal CCA calcified plaque Right proximal ICA [id number] (HbA1c 10.9)Diabetic neuropathyDyslipidemiaHypertensionCAD, with History of CABG and PCI Peripheral Arterial Disease, history of Left BKALeft BKA Stump Wound Plan:Neurology following10/05/22 CTA Neck: right distal CCA calcified plaque with appearance of superimposed thrombus possible due to ruptured plaque, as per impression by Neurology10/07/22 MRI Brain: Acute/early subacute ischemic infarct in involving the rightparietal and temporal lobes and insular cortex. Small punctate petechial blood products are noted within the right parietal cortex. No large hemorrhagic transformation is seen.2Chronic small vessel ischemic white matter disease.CV Surgery following, plan for right-sided carotid endarterectomy to be performed on 10/08/22Continued on Heparin gtt, most recent PTT 39.9Neurochecks every hourTarget BP goal per Neurology: BP 110-130/<80Aspirin 81 mg dailyDid not start Statin - given report of Arthralgia as a response to statin treatments in the past. Therefore on Zetia insteadPending TTE Platelet response to P2Y12 inhibitor orderedNormal renal function, monitor mild hyponatremiaStable CBC; monitor dailyLeft stump BKA wound, Wound Care consultedBlood cultures in progressUA not suggestive of UTIUnclear why patient is on Ceftriaxone, will investigateHemoglobin A1c 10.9Continue subQ Insulin regimen Also, possible left-sided pleurisy, though remarkable findings not demonstrated on recent CT Chest and CTA chest findings. In addition, no remarkable findings on CT Abdomen/Pelvis with IV Contrast. Therefore, the etiology of this pain remains unclear.Check Troponin level Diet: Cardiac/ADA diet PT/OT Following VTE ppx: SCDs, Heparin gttGI ppx: CODE STATUS: FullDispo: ICU Total critical care time >35 minutes. Total critical care time documented does not include time spent on separately billed procedures or the services of residents, students, nurses or physician assistants. I personally saw and examined the patient. I have reviewed all diagnostic interpretations and treatment plans as written. I was present for the wyatt portions of any proceduresperformed and the inclusive time noted in any critical care statement. Critical care time includes patient management by me, time spent at the patients bedside,time to review lab and imaging results, discussing patient care, documentation in the medical record, and time spent with the family or caregiver. Consultants: cardiovascular surgery, critical/industrial tractor driver, hospitalist, neurology at 1809 [facility] #:[id number] OF REPORTPRProgress [id number] Available for patient [id number] [facility] 2022-10-07 11:53:00 [id number] 1:53:00 [facility] ([facility] SYSTEMHospitalist Progress NoteREPORT#:[id number] REPORT STATUS: SignedDATE:10/07/22 TIME: 1153 PATIENT: BRIGHT SALAZAR UNIT #: [id number]#: [id number] [address] AGE: 57 SEX: M ATTEND: Kiel Gardiner [facility] AUTHOR: Jimmy Mark MD * ALL edits or amendments must be made on the electronic/computer document * SubjectiveChief complaint:Fell HeadachesHPI:This is a 57-year-old male with past medical history of diabetes hypertension CABG left BKA he was brought into the ER because he fell from the scooter he wason the scooter when he slipped and fell on the right side later at home he developed pain in the right chest and right side of the abdominal he was complaining of headache since 3 days which she never had it was right-sided throbbing he was also complaining of generalized weakness he also complains of redness in the left stump for which she they were supposed to prescribe an antibiotics denies any nausea vomiting diarrhea abdominal pain hematemesis melena blood in stool asking for more morphine's Objective GeneralVS/I O:Vital Signs: Date Time Temp Pulse Resp B/P B/P Pulse O2 O2 Flow FiO2 Mean Ox Delivery Rate 10/07 1000 82 95 / 0945 89 33 98 / 0930 79 18 123/64 88 93 / 0915 83 34 95 / 0901 85 33 124/85 100 95 / 0900 82 33 97 / 0845 82 26 97 / 0839 95 Room air 21 10/07 0830 79 19 161/74 106 94 05/ 0815 79 19 96 05/ 0801 80 19 143/71 99 95 / 0800 98.4 / 0800 80 20 95 / 0745 81 29 95 05/ 0730 81 20 160/73 105 96 05/01 0715 84 20 95 05/01 0700 84 21 161/76 109 96 05/01 0400 98.5 05/01 0101 85 24 146/70 101 94 05/01 0031 86 24 175/77 111 93 05/01 0000 99.0 10/06 2331 93 44 126/85 102 95 10/06 2301 93 48 149/99 117 95 10/06 2231 92 45 154/96 116 95 10/06 2200 85 34 175/82 118 95 10/06 2132 84 30 165/76 109 94 10/06 2100 91 35 163/77 110 93 10/06 2030 87 28 164/74 107 95 10/07 1999 99.5 10/06 2000 82 25 158/73 105 93 10/06 1932 85 32 165/74 107 93 10/06 1901 94 34 128/88 103 91 10/06 1832 86 164/80 114 95 10/06 1815 23 10/06 1800 81 160/75 108 95 10/06 1730 86 165/71 108 94 10/06 1701 83 160/80 111 95 10/06 1700 20 10/06 1631 22 10/06 1630 85 177/83 118 96 10/06 1600 99.8 10/06 1600 87 163/91 121 97 10/06 1530 84 160/78 112 96 10/06 1501 84 151/77 106 96 10/06 1430 85 163/73 112 97 10/06 1400 85 153/70 101 95 10/06 1330 87 142/68 98 10/06 1300 19 10/06 1300 86 134/71 96 96 10/06 1247 86 136/68 96 95 10/06 1215 19 10/06 1200 99.3 10/06 1200 82 139/73 99 94 24 hour I O ending at 0700: 10/07 0700 10/06 1900 Intake Total 423.60 1378.20 Output Total 650 700 Balance -226.40 678.20 Intake, IV 183.60 278.20 Intake, Oral 240 1100 Number 0 Bowel Movements Number Voids 2 2 Output, Urine 650 700 PATIENT WEIGHT: Weight (lb): Weight (oz): Weight (kg): 90.700 Physical ExamCardiovascular: normal heart soundsRespiratory: decreased breath soundsAbdomen: softExtremities: edemaNeuro/RN MATERNITY: alert Considered stroke alert: yes Diagnosis, Assessment PlanHospital course to date:57-year-old right-handed male with multiple risk factors as has diabetes diagnosed per patient since 2007 poorly controlled, hypertriglyceridemia, hypertension, history of multiple coronary artery disease status post CABG and PCI since 2009, history of peripheral artery disease, history of neuropathy chronic, history of left below the knee amputation last year due to to 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 CTA. 10/05/2022.Right internal carotid artery stenosis. thrombus at risk for further embolization. Evolving right middle cerebral artery distribution infarct without mass effect.Indeterminate right parotid lesions, for which otolaryngology consultation is recommended. In acute ischemic stroke, when the ischemic penumbra may be at risk of irreversible damage if cerebral blood flow is reduced by lowering the blood pressure. Many Trials trial found no clear benefit for blood pressure lowering within 12 hours of acute ischemic stroke onset, but an adjusted analysis suggested that a goal systolic blood pressure of 161 to 180 mmHg increased the odds of a good outcome compared with higher or lower goal blood pressures Patient seen and examined.No further deterioration of the neurological symptoms.Continue to care current management, physical therapy occupational therapy, speech therapy.Feedings if the patient can tolerate.We will keep the hemodynamic measures as well Seen and examined as of 10/07/2022.Patient will be optimized for carotid endarterectomy which is scheduled later this week. -Patient post TPA maintain BP between 161-180 in first 24 hours.-Plan to initiate cardene drip if BP is higher then 180mmHg.-Restart antihypertensive medications during hospitalization for patients with blood pressure >140/90 mmHg who are neurologically stable-Treat hypertension before and during reperfusion therapy for acute ischemic stroke.reperfusion therapy except that blood pressure is >185/110 mmHgLabetalol 10 to 20 mg intravenously over 1 to 2 minutes, may repeat one time; Nicardipine 5 mg/hour intravenously, titrate up by 2.5 mg/hour every 5 to 15 minutes, maximum 15 mg/hour.Antithrombotic therapy with aspirin initiated within 48 hours of stroke onset "Early antithrombotic treatment of acute ischemic stroke and transient ischemic attack limited mobility, we plan to use Lovenox 40 mg daily, or heparin?Prophylaxis for deep venous thrombosis and pulmonary embolism. VTE prophylaxis for select patients within 48 hours of acute ischemic stroke onset who have restricted mobility, TIA can be done through?Antithrombotic therapy at discharge if A fib is present?Lipid lowering with high intensity statin therapy ?Blood pressure reduction after the acute phase of ischemic stroke has passed ?Behavioral and lifestyle changes including smoking cessation, exercise, weight reduction for patients with obesity, and a Mediterranean style diet.-Repeat CT scan in 48 hours. MRI/MRA/MRV (if suspected Venous thrombosis -Neuro checks Q 1 hour. Respiratory Rate, HR, Pulse (dopplers) Core Temprature.Maintain MAP >65mmHg or SBP>90mmHgUse Crystalloids/ NS @30ml/kg to maintain adequate perfusion in sepsis.Circulatory Shock: Fluids,Pressors, prefer Levophed and titrate to keep Sr lactate less then 1mmol/LPlan to Keep CVP between 8-12mHg after CVC placement. PaO2 >60mmhg or ScVo2 >70%if CVC is presentPlan TTE: Evaluate for CO. LVEF, WMA, RVSP, Valve functions and Intracardiac Shunt.Maintain SaO2>90%, Titrate to minimize Ljf2FhY0 <60mmHg DuoNebs with empiric antibiotics with inhaled and systemic steroids in COPD patient with flare.Urine Output : Maintain urine output: 0.5-1.5mL/kg/hrIf Urine Output is decreased <500ml/day or anuria, plan to start IV fluids, UA with cultures, bladder scan, placement of Juan's Catheter. Avoidnephrotoxins, retroperitoneal US, nephrology consult as indicated.CBC, CMP, ABG, and Daily X ray as indicated. Surgical plan.Right carotid endarterectomy next week.Continue the patient on heparinAspirin can be given to the patient. No Plavix.Fall precautionSeizure precautionSpeech speech and swallow evaluationKeep the patient n.p.o. for ICU Core Measures Appropriate Labs/Imaging/Consultations: ReviewedAppropriate Peptic Ulcer Disease Prophylasix: ReviewedAppropriate Deep Venous Thrombosis Prophylasix: ReviewedVentilator Associated Pneumonia Prevention: ReviewedCentral Line,Associated Blood Stream Infection/Indwelling Juan Days: ReviewedAppropriate Sedation: ReviewedNeutritional Evaluation: ReviewedCentral Line-Associated Blood Stream Infection: ReviewedICU LOS/GMLOS: ReviewedAppropriate Plan of Care Discussed with Family Service Assistant TeamSAT/SBT Protocols: Reviewed for the PatientAppropriate Pain Scale By BPS/CPOT: ReviewedRASS, GCS and Delirium Severity Scale: AccessedDiscussion About Transfer/Discharge/Uss-oc-bwpw-care: Reviewed All pertinant labs, Imaging, EKG, telemetry data,and medical records are reviewed by me personally. I have discussed the available findings, initial diagnosis and related differentials with the patient/day care center director including RN. All concerns and questions are answered to the best of my abilities based on theavailable data.I have initiated the plan of care based on preliminary diagnosis,requested appopriate consultations with labs/imagings. Patient/day care center director verbalizes understanding of the plan of care. Plan discussed and agreed with the patient Problem List/A P: 1. Diabetes 2. Hyperglycemia 3. Diabetic foot infection 4. CAD (coronary artery disease) 5. GERD (gastroesophageal reflux disease) Consultants: cardiovascular surgery, critical/industrial tractor driver, hospitalist, neurology Free Text DxA P NotesFree text DxA P notes:57-year-old right-handed male with multiple risk factors as has diabetes diagnosed per patient since 2007 poorly controlled, hypertriglyceridemia, hypertension, history of multiple coronary artery disease status post CABG and PCI since 2009, history of peripheral artery disease, history of neuropathy chronic, history of left below the knee amputation last year due to to 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 CTA. 10/05/2022.Right internal carotid artery stenosis. thrombus at risk for further embolization. Evolving right middle cerebral artery distribution infarct without mass effect.Indeterminate right parotid lesions, for which otolaryngology consultation is recommended. In acute ischemic stroke, when the ischemic penumbra may be at risk of irreversible damage if cerebral blood flow is reduced by lowering the blood pressure. Many Trials trial found no clear benefit for blood pressure lowering within 12 hours of acute ischemic stroke onset, but an adjusted analysis suggested that a goal systolic blood pressure of 161 to 180 mmHg increased the odds of a good outcome compared with higher or lower goal blood pressures -Patient post TPA maintain BP between 161-180 in first 24 hours.-Plan to initiate cardene drip if BP is higher then 180mmHg.-Restart antihypertensive medications during hospitalization for patients with blood pressure >140/90 mmHg who are neurologically stable-Treat hypertension before and during reperfusion therapy for acute ischemic stroke.reperfusion therapy except that blood pressure is >185/110 mmHgLabetalol 10 to 20 mg intravenously over 1 to 2 minutes, may repeat one time; Nicardipine 5 mg/hour intravenously, titrate up by 2.5 mg/hour every 5 to 15 minutes, maximum 15 mg/hour.Antithrombotic therapy with aspirin initiated within 48 hours of stroke onset "Early antithrombotic treatment of acute ischemic stroke and transient ischemic attack limited mobility, we plan to use Lovenox 40 mg daily, or heparin?Prophylaxis for deep venous thrombosis and pulmonary embolism. VTE prophylaxis for select patients within 48 hours of acute ischemic stroke onset who have restricted mobility, TIA can be done through?Antithrombotic therapy at discharge if A fib is present?Lipid lowering with high intensity statin therapy ?Blood pressure reduction after the acute phase of ischemic stroke has passed ?Behavioral and lifestyle changes including smoking cessation, exercise, weight reduction for patients with obesity, and a Mediterranean style diet.-Repeat CT scan in 48 hours. MRI/MRA/MRV (if suspected Venous thrombosis -Neuro checks Q 1 hour. Respiratory Rate, HR, Pulse (dopplers) Core Temprature.Maintain MAP >65mmHg or SBP>90mmHgUse Crystalloids/ NS @30ml/kg to maintain adequate perfusion in sepsis.Circulatory Shock: Fluids,Pressors, prefer Levophed and titrate to keep Sr lactate less then 1mmol/LPlan to Keep CVP between 8-12mHg after CVC placement. PaO2 >60mmhg or ScVo2 >70%if CVC is presentPlan TTE: Evaluate for CO. LVEF, WMA, RVSP, Valve functions and Intracardiac Shunt.Maintain SaO2>90%, Titrate to minimize Sly6ErF9 <60mmHg DuoNebs with empiric antibiotics with inhaled and systemic steroids in COPD patient with flare.Urine Output : Maintain urine output: 0.5-1.5mL/kg/hrIf Urine Output is decreased <500ml/day or anuria, plan to start IV fluids, UA with cultures, bladder scan, placement of Juan's Catheter. Avoidnephrotoxins, retroperitoneal US, nephrology consult as indicated.CBC, CMP, ABG, and Daily X ray as indicated. Surgical plan.Right carotid endarterectomy next week.Continue the patient on heparinAspirin can be given to the patient. No Plavix.Fall precautionSeizure precautionSpeech speech and swallow evaluationKeep the patient n.p.o. for ICU Core Measures Appropriate Labs/Imaging/Consultations: ReviewedAppropriate Peptic Ulcer Disease Prophylasix: ReviewedAppropriate Deep Venous Thrombosis Prophylasix: ReviewedVentilator Associated Pneumonia Prevention: ReviewedCentral Line,Associated Blood Stream Infection/Indwelling Juan Days: ReviewedAppropriate Sedation: ReviewedNeutritional Evaluation: ReviewedCentral Line-Associated Blood Stream Infection: ReviewedICU LOS/GMLOS: ReviewedAppropriate Plan of Care Discussed with Family Service Assistant TeamSAT/SBT Protocols: Reviewed for the PatientAppropriate Pain Scale By BPS/CPOT: ReviewedRASS, GCS and Delirium Severity Scale: AccessedDiscussion About Transfer/Discharge/Yhf-cr-hafi-care: Reviewed All pertinant labs, Imaging, EKG, telemetry data,and medical records are reviewed by me personally. I have discussed the available findings, initial diagnosis and related differentials with the patient/day care center director including RN. All concerns and questions are answered to the best of my abilities based on theavailable data.I have initiated the plan of care based on preliminary diagnosis,requested appopriate consultations with labs/imagings. Patient/day care center director verbalizes understanding of the plan of care. Plan discussed and agreed with the patient at 1154 RPT #:[id number] OF REPORTPRProgress [id number] Available for patient [id number] [facility] 2022-10-07 11:27:00 [id number] [id number] 1:27:00 [facility] ([facility])Cardiothoracic Surgery ProgREPORT#:[id number] REPORT STATUS: SignedDATE:10/07/22 TIME: 112 PATIENT: BRIGHT SALAZAR UNIT #: [id number]#: [id number] [address]WVF: [address] AGE: 57 SEX: M ATTEND: Kiel Gardiner [facility] AUTHOR: Aurora Chao APRN * ALL edits or amendments must be made on the electronic/computer document * SubjectiveChief complaint:Weakness left side Review of SystemsConstitutional:Reports: generalized weakness. Denies: chills, fever. Skin:Denies: swelling. Respiratory:Denies: AZEVEDO (dyspnea on exertion), hemoptysis, productive cough (sputum), SOB. Cardiovascular:Denies: chest pain, AZEVEDO (dyspnea on exertion), edema. GI:Denies: nausea, vomiting. Neuro:Reports: weakness. Denies: change in LOC, seizure, slurred speech. All systems rev neg: except as marked Objective GeneralVS/I OLast Documented: Result Date Time Pulse Ox 95 10/07 1000 Pulse 82 10/07 1000 Resp 33 10/07 0945 B/P 123/64 10/07 0930 B/P Mean 88 10/07 0930 FiO2 21 10/07 0839 O2 Delivery Room air 10/07 0839 Temp 98.4 10/07 0800 24 hour I O ending at 0700: 10/07 0700 10/06 1900 Intake Total 423.60 1378.20 Output Total 650 700 Balance -226.40 678.20 Intake, IV 183.60 278.20 Intake, Oral 240 1100 Number 0 Bowel Movements Number Voids 2 2 Output, Urine 650 700 PATIENT WEIGHT: Weight (lb): Weight (oz): Weight (kg): 90.700 Dietitian Nutrition assessmentThe data set between the solid lines has been imported from the dietitian's assessment. BMI Calculated: 27.1Nutrition related diagnosis: Nutrition diagnosis details: Nutrition problem: Nutrition etiology: Nutrition signs and symptoms: Nutrition prescription: Dietitian name: Assessment completed: Physical ExamGeneral appearance: alert, awake, oriented, no acute distress, no respiratory distressHEENT: mucosal membranes moistNeck: full range of motionAbdomen: no guardingNeuro/RN MATERNITY: alert, oriented X 3 Diagnosis, Assessment PlanFree Text A P:57-year-old male with right parietal infarct on CT.Patient also has a soft plaque in the right internal carotid artery.Neurology is on board.Based on the images the patient will need right carotid endarterectomy with patch angioplasty Surgery planned for tommorrow afternoonPlease keep pt NPO after midnight, type and cross 2 units prbc,obtain consent, ABX marionette performer to ORDiscussed with pt preop, intraop, and post op expectations discussed risk benefits and alternatives of the proposed procedure the patient understands willing to proceed with surgery.Discussed with Dr. Kern will cont to followConsultants: cardiovascular surgery, critical/industrial tractor driver, hospitalist, neurology at 1133 RPT #:[id number] OF REPORTPRProgress [id number] Available for patient [id number]:33:[address] [facility] 2022-10-07 11:04:00 [id number] gAD2 SkNSUwU/[id number]/6514-20-29T1 1:04:00 [facility] [place] ([facility])Neurology Progress NoteREPORT#:[id number] REPORT STATUS: SignedDATE:10/07/22 TIME: 1104 PATIENT: BRIGHT SALAZAR UNIT #: [id number]#: [id number] ROOM/BED: [place] [id number]-YTWS: 65 AGE: 57 SEX: M ATTEND: Kiel Gardiner [facility] AUTHOR: Radha Alba MD * ALL edits or amendments must be made on the electronic/computer document * SubjectiveChief complaint:pain in ribs and fallHPI:Patient was seen this morning in the ICU for neurological follow-up visit. He continues to report of headache and right-sided neck pain. States headache is improved. Denies any new weakness. 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 On further questioningthe patient stated he had a headache for around 4 days prior to admission on theright side of his parietal temporal area that was throbbing, with very poor description of the characteristic but stated it limited his ability to sleep. There is no nausea, vomiting, photophobia or phonophobia with it. The head was not tender to touch. He did not notice the headache gets any better or any bodyposition. The headache was not going away. He did not drive much at home s[place] and reportedly was not feeling very well but was able to mobilize himself. Yesterday morning he woke up and he got onto his scooter and was going to the kitchen to make himself breakfast but fell and hit his rib cage and had pain since. He did not want to go to the hospital initially but then due to the persistence of the pain he decided to come in. Reported imaging obtained after 0 which showed early ischemic changes suspicious for a recent infarct on the right MCA distribution and I was made aware about the patient last night as reported symptoms was more than a day per ER.Patient stated overall it most bother him the most is his rib cage pain and his headache. He stated his headache is around 9/10 in severity. In distress and 1his pain to be improved rather than discussing further about his medical conditions. He stated he does not notice any weakness currently. No reported of numbness per the patient. He only stated he had chronic numbness in his feetfor long time. He did state he might have noticed some dry discharges on the amputation site on his left BKA. The patient stated he still smokes, he denied any illicit drug use. He stated last alcohol drink was June of this year.He stated no dizziness, does not notice any vision changes, no hearing/speech changes, no nausea/vomiting. Worsening rib cage pain when coughing. No right-sided weakness and did not notice left-sided weakness stated only affected by painNo report of measuring his blood pressure at home. Per description pre morbid mRS appear to be 1 is only uses a scooter given his left below the knee amputation and was in the process of getting a prosthetic device for his leg so he can ambulate without a scooter. He does everything on his own and lives by himself and will drive without any issues.On reported statin allergy, he stated he tried every statin that he was told to try but every time he tries it he will have significant joint pain in his legs, knees, hands and he would have to stop it for joint pain to go away. He did nottry ezetimibe before or Vascepa. Objective GeneralVS:Last Documented: Result Date Time Pulse Ox 95 10/07 1000 Pulse 82 10/07 1000 Resp 33 10/07 0945 B/P 123/64 10/07 0930 B/P Mean 88 10/07 0930 FiO2 21 10/07 0839 O2 Delivery Room air 10/07 0839 Temp 98.4 10/07 0800 PATIENT WEIGHT: Weight (lb): Weight (oz): Weight (kg): 90.700 MedicationsCurrent Home MedicationsASPIRIN 81 MG PO BID ZOLPIDEM (AMBIEN) 10 MG PO BEDTIME GABAPENTIN (NEURONTIN) 400 MG PO TID METOPROLOL TARTRATE (LOPRESSOR) 50 MG PO DAILY INSULIN NPH HUMAN RECOM (HumuLIN N) 35 UNITS SUBQ BID MEALS INSULIN REGULAR (HumuLIN R) 10 UNITS SUBQ AC CLOPIDOGREL (PLAVIX) 75 MG PO DAILY Active Meds + DC'd Last 24 HrsHeparin Sodium/Dextrose (HEPARIN 25,000 UNITS/250 ML D5W) 250 ML TITRATE IV (CKD) Aspirin (ASPIRIN) 81 MG DAILY PO Cyclobenzaprine HCl (FLEXERIL) 10 MG TID PRN PRN PO Ezetimibe (ZETIA) 10 MG BEDTIME PO Lidocaine (LIDODERM PATCH) 1 PATCH BEDTIME TRANSDERM Mupirocin (BACTROBAN) 1 APPLIC BID NASAL Gabapentin (NEURONTIN) 300 MG TID PO Sodium Chloride (NORMAL SALINE 250 ML) 250 ML BOLUS PRN IV Heparin Sodium (Porcine) (Heparin 25,000 Unit/250-1/2 Ns) 250 ML TITRATE IV (DC) Metoprolol Tartrate (LOPRESSOR) 50 MG DAILY PO Insulin Human NPH (HumuLIN N) 35 UNIT BID MEALS SUBQ Insulin Human Regular (HumuLIN R) 10 UNIT AC SUBQ Ceftriaxone Sodium (ROCEPHIN) 1 GM Q24H IV Sterile Water (STERILE WATER) 10 MLZolpidem Tartrate (AMBIEN) 10 MG BEDTIME PO Acetaminophen (TYLENOL) 650 MG Q4H PRN PRN PO Acetaminophen (TYLENOL) 650 MG Q6H PRN PRN RECTAL Al Hydrox/Mg Hydrox/Simethicone (MAALOX PLUS) 30 ML Q4H PRN PRN PO Albuterol/Ipratropium (DUONEB 2.5-0.5MG/3ML SOLN) 3 ML RTQ4H PRN PRN NEB Bisacodyl (DULCOLAX) 10 MG DAILY PRN PRN PO Calcium Carbonate (TUMS) 1,000 MG DAILY PRN PRN PO Clonidine HCl (CATAPRES) 0.1 MG Q6H PRN PRN PO Dextrose/Water (DEXTROSE 50%-WATER) 25 ML ASDIR PRN IV (CKD) Glucagon (GLUCAGON) 1 MG ASDIR PRN IM Glucose Polymer (GLUTOSE) 15 GM ASDIR PRN PO Guaifenesin/Dextromethorphan (ROBITUSSIN-DM) 10 ML QID PRN PRN PO Hydrocodone Bitart/Acetaminophen (NORCO 5/325 TABLET) 1 TAB Q4H PRN PRN PO Hydrocodone Bitart/Acetaminophen (NORCO 10/325 TABLET) 1 TAB Q4H PRN PRN PO Insulin Human Lispro (HUMALOG) See Admin Criteria ASDIR PRN SUBQ Magnesium Sulfate/Dextrose (MAGNESIUM SULFATE 1GM/D5W 100ML) 100 ML DAILY PRN PRN IV Morphine Sulfate (morphine PF SYRINGE) 2 MG Q4H PRN PRN IV Nitroglycerin (NITROSTAT) 0.4 MG Q5M PRN PRN SL Ondansetron HCl (ZOFRAN) 4 MG Q4H PRN PRN IV Potassium Chloride (K-DUR) 40 MEQ DAILY PRN PRN PO Potassium Phos/Sodium Phos (PHOS-NAK PACKET) 2 PKT DAILY PRN PRN PO (CKD) Senna (SENOKOT) 1 TAB DAILY PRN PRN PO (CKD) Simethicone (MYLICON) 160 MG Q6H PRN PRN PO Sodium Chloride (NORMAL SALINE 250 ML) 250 ML BOLUS PRN IV Trazodone HCl (DESYREL) 50 MG BEDTIME PRN PRN PO Lactated Ringer's (LACTATED RINGERS) 1,000 ML X1ED STA IV Physical ExamGeneral appearance: awake, no acute distressHead/Eyes: atraumatic, normocephalicNeck: supple/no meningismusNeuro comment:A O to self, place, time, condition/situation. Mainly in discomfort from hisleft rib cageNo Gaze preference Visual perdue with left visual field cut. Funduscopy without clear papilledemaNo aphasia or dysarthria. Pupil equal, round and reactive b/l. Eye movement intact b/l. No facial droop. Tongue midline. Movement: 5/5 on the right, left upper extremity 4+/5 with limitation due to pain but with drift, left BKA with leg 4+/5 without a drift.Sensation would confabulate, has decreased sensation to pinprick on the left amparo face, unable to feel on the left arm. Does have sensory neglect on the leftNo nystagmus, No dysmetria b/l in all 4 exts with limitation due to pain and BKA. ResultsFindings/Data:Laboratory Tests 10/07 10/07 10/06 10/06 0841 0357 3790 3806Chemistry Sodium (133 - 144 mmol/L) 133.0 Potassium (3.5 - 5.1 mmol/L) 3.6 Chloride (95 - 105 mmol/L) 100 Carbon Dioxide (21 - 32 mmol/L) 26 Anion Gap (4.0 - 15.0 GAP calc) 7.0 BUN (7 - 18 MG/DL) 14 Creatinine (0.55 - 1.30 MG/DL) 0.73 Glomerular Filtr Rate (>60 estGFR) 106 Glucose (70 - 110 MG/DL) 126 H POC Glucose (70 - 119 MG/DL) 142 H 160 H 117 Calcium (8.5 - 10.1 MG/DL) 8.7 Specimen Appearance (1 NORMAL 1 NORMAL <2 MGIndex/DL) Specimen Hemolysis (1 NORMAL Index/DL) 1 NORMAL <10 MG 10/06 10/06 1840 1236 Chemistry POC Glucose (70 - 119 MG/DL) 158 H Troponin I High Sens (0 - 45 ng/L) 21 Laboratory Tests 10/07 10/07 10/06 10/06 0601 0015 1840 1247 Coagulation PT (9.4 - 12.5 SECONDS) 12.2 INR (0.88 - 1.13 INR Unit) 1.08 PTT (Nga) (24 - 37.7 SECONDS) 75.9 H 68.1 H 61.0 H 48.2 H Laboratory Tests 10/07 0357 Hematology WBC (4.1 - 12.1 K/mm3) 8.8 RBC (3.8 - 5.5 M/mm3) 5.06 Hgb (10.6 - 15.8 G/DL) 14.3 Hct (31.8 - 47.4 %) 40.9 MCV (80.1 - 101.1 fL) 80.8 MCH (25.3 - 35.3 pg) 28.3 MCHC (32.7 - 35.1 G/DL) 35.0 RDW (12.2 - 16.4 %) 13.2 Plt Count (155 - 337 K/mm3) 292 MPV (7.6 - 10.4 fL) 10.5 H Laboratory Tests 10/06 1238 Serology T.pallidum Ab (FTA-ABS) (NonReactive Screen) NonReactive Diagnosis, Assessment PlanFree Text A P:Ischemic stroke right MCA distribution etiology embolic due to R distal CCA ruptured plaque with superimposed thrombusHeadache new onset suspect due to aboveMultiple uncontrolled risk factors including hypertension, peripheral artery disease, diabetes A1c 11, coronary artery disease multiple, smokingHypertriglyceridemiaRib cage pain post fallHistory of left BKA due to diabetic footArthralgia as a response to statin treatments in the pastReported restless leg in the legs taking gabapentin at night daily-CT reviewed yesterday with distal calcified plaque on the right CCA with superimposed thrombus without complete occlusion, with distal branch M2 occlusion at the location of the infarct seen on CT. MRI hopefully today. -Patient doing well with only rib cage pain, headache appears to be improving but still there. We will continue current treatment with gabapentin, reasonableto try Flexeril for his rib cage pain.-Status post heparin drip started yesterday with low bolus with medium intensitygoal for drip. We will keep on low-dose aspirin as well for now. Holding Plavix till after carotid endarterectomy. P2 Y12 ordered and pending.-Continue monitoring in ICU for plans to do surgery on Friday morning. Monitor for worsening stroke symptoms. if worsening deficits then repeat imagingand consideration for endovascular therapy would be needed. -On ezetimibe only as patient refused to take statin as had allergy to statin with joint pains and per report tried every statin. See below for further info. Vascepa outpatient is reasonable.Critical care time was 30 minutes. More than 50 minutes spent in reviewing data, discussing with the staff, and coordinating the plan of care.copied from 10/06:Onset of the symptoms possible since Friday as patient did not recognize his deficit even currently, most noticeable symptoms with the fall happened yesterday outpatient coding specialist after waking up. Initially evaluated as a trauma. CTA recommended and will be obtained today as vascular imaging for etiology of the stroke. per description/report appear outside window for acute stroke therapy. -Treatment of the headache will try 1 dose Toradol with Compazine and Benadryl. Patient was aware of potential side effect and agreed to start the medication. stated takes gabapentin only one time at night and agreed to transition to 300 TID pattern for now as stated was too drowsy when started it as TID reportedly was 400 mg. - agreed to try ezetimibe. As did not want to try different statin currently suzette is in pain and is worried that he might get worsening pain. Sometimes pravastatin or rosuvastatin has less effect on causing joint pain. Some report on the use of CQ 10 might help however no official evidence yet available. Trying on Vascepa as an outpatient might be helpful if triglyceride continues haley elevated 3 months after treatment with ezetimibe.-Evaluation for headache depending on improvement of symptoms as appear most likely due to recent stroke.-MRI brain ordered. Echo ordered.-Patient agreed for testing for vitamins along with sexually transmitted diseases along with urine drug screening.-We will do permissive blood pressure for now till vascular imaging obtained. Blood pressure parameters to be adjusted after CTA obtained or after 24-hour post admission. If possible, would avoid hydralazine for the first week post stroke. Other options can be tried such as PRN Labetalol or Enalaprilat, IV drips, Captopril, Nifedipine, or if patient is a good candidate Clonidine.-Patient is aware that he needs to stop smoking. Better diabetes control is needed as A1c is 11. Blood cultures were obtained and might need wound culture given the patient reported symptoms of possible discharges from his left BKA surgical site.- Would continue on telemetry. Review of patient prior telemetry report from prior admission did not show any arrhythmia and patient was not aware of any arrhythmia in the past- Antiplatelet therapy: We will continue aspirin and Plavix as she takes it for his cardiac condition. We will check P2 Y12.-Neuropathy and stroke labs ordered- Q.4 hour neurochecks. This can be changed to Every shift after 72 hours of admission if patient is clinically stable without fluctuation or large vessel occlusion on imaging. - If diabetic, mainly with avoid hypoglycemia. Goal BG <180 overall adequate during inpatient stay.- If no pending for procedure, can start a diet if passes swallow.- Okay with gentle hydration from my end.- SQ Heparin/Lovenox SQ for DVT prophylaxis.- Fall precautions.- PT/OT/ST. For ischemic stroke care outpatient- Stroke risk factor goals as outpatient: A1c <7.0, BP 110-130/<80, BMI less than 24, LDL <70, Triglycerides <135.- Consideration for evaluation of obstructive sleep apnea after ischemic stroke/TIA as an outpatient is generally recommended.- Low threshold to screen for depression/anxiety (screening tools such as PHQ-9,GURJIT or aphasia depression rating scale) are recommended for patients poststroke in the outpatient settings.- Cognitive evaluation as an outpatient (at least within 1 year) is recommended for stroke.- Consideration for metformin is reasonable and ischemic stroke/TIA if the following is met: Prediabetes and <60 years of age or with BMI >34 or women withhistory of gestational diabetes.- For DM management in patient with ischemic stroke as outpatient: Can consider GLP-1 receptor agonist preferably or SGLT-2 inhibitors (preferably Dulaglutide if possible and no concern for potential heart/kidney failure) Please contact me with questions at 1101 RPT #:[id number] OF REPORTPRProgress [id number]:04:00B.[id number] Available for patient [id number]:08:[address] [facility] 2022-10-07 02:37:00 [id number]+[id number] sy0Q [id number] 2:37:[id number] [address] PATIENT NAME: BRIGHT SALAZAR ADMIT DATE: 10/04/22ACCOUNT NO: [id number] ROOM NO: [facility] AGE: 57 REPORT TYPE: eECHOCARDIOGRAM REPORT SEX: M ADMITTING PHYSICIAN:Kiel Gardiner MD ATTENDING PHYSICIAN:Yung Loomis MD + + : : : : [facility] : : Echo Lab + + [address] [place] [address] [place] [facility] [place] [address] [phone] ----+ :Name :BRIGHT SALAZAR Study Date:10/07/2022, 2:37 AM Study Location: : :MRN: :[id number] : :URN :[id number] BP :165 / 71 mmHg : : Height:72 in : : Weight :199 lb : : :1965 (MM/DD/YYYY) Gender :Male : :Age :57 Years HR : : :Reason For Study : CVA BSA :2.13 m : :History: : ++: MMode/2D Measurements Calculations : :::Ao root diam :3.4 cm :::LA dimension :3.5 cm IVSd :1.28 cm :::LVIDd :5.1 cm PATIENT NAME: BRIGHT SALAZAR FS:25.6 % :::LVIDs :3.8 cm EDV(Teich) :124.7 ml :::LVPWd : 1.28 cm ESV(Teich) :62.1 ml ::: EF(Teich):50.2 % :::Ao root area :9.3 cm LVOT diam :2.25 cm ::: LVOT area :4.0 cm : :-------- + Doppler Measurements Calculations --+ :MV E max josias :77.8 cm/sec MV V2 max :95.4 cm/sec : :MV A max josias :93.2 cm/sec MV max PG :3.6 mmHg : :MV E/A :0.83 MV V2 mean :66.1 cm/sec : : MV mean PG :1.89 mmHg : : MV V2 VTI :22.3 cm : : MVA(VTI) :2.9 cm : : Ao V2 max :149.1 cm/sec : : Ao max PG :8.9 mmHg : : Ao V2 VTI :29.1 cm : : LUIS(I,D) :2.21 cm : : LUIS(V,D) :2.17 cm : PATIENT NAME: BRIGHT SALAZAR : LV V1 max PG :2.7 mmHg : : LV V1 max :81.6 cm/sec : :SV(LVOT) : 64.4 ml : + Summary Statements A complete two-dimensional transthoracic echocardiogram was performed (2D,M-mode, Doppler and color flow Doppler). Left ventricular systolic function is low normal. Ejection Fraction = 50-55%. The transmitral spectral Doppler flow pattern is suggestive of impaired LVrelaxation. The left ventricular wall motion is normal. There is mild concentric left ventricular hypertrophy. There is no thrombus. The left ventricle is grossly normal size. Insufficient TR jet to estimate RVSP. Left Ventricle The left ventricle is grossly normal size. There is no thrombus. There ismild concentric left ventricular hypertrophy. Left ventricular systolicfunction is low normal. EjectionFraction = 50-55%. The transmitral spectral Doppler flow pattern issuggestive of impaired LV relaxation. The left ventricular wall motion isnormal. Right Ventricle The right ventricle is grossly normal size. There is normal rightventricular wall thickness. The right ventricular systolic function is normal. Atria The left atrial size is normal. Right atrial size is normal. Theinteratrial septum is intact with no evidence for an atrial septal defect. Mitral Valve The mitral valve is grossly normal. There is no mitral valve stenosis.There is trace mitral regurgitation. Tricuspid Valve The tricuspid valve is not well visualized, but is grossly normal. There isno tricuspid stenosis. No tricuspid regurgitation. Insufficient TR jet toestimate RVSP. Aortic Valve The aortic valve is normal in structure and function. No hemodynamicallysignificant valvular aortic stenosis. No aortic regurgitation is present. Pulmonic Valve The pulmonic valve is not well seen, but is grossly normal. There is nopulmonic valvular stenosis. There is no pulmonic valvular regurgitation. Great Vessels The aortic root is normal size. Pericardium/Pleural There is no pericardial effusion. There is no pleural effusion. Electronically Signed By: PATIENT NAME: BRIGHT SALAZAR Last Changed By Name :Rashad Turner MD Last Changed Date Time :10/20/2022, 10:11 AM Ordering Physician :Kiel Fischer Referring Physician: Referred, Self Performed By : Bean Bernstein at 1012 PATIENT NAME: BRIGHT SALAZAR :12:00B.[id number] for patient [id number]:12:35 [facility] 16:51:00 [id number] bWCY m/LpPJXK4OE3YDED3WXs2zvk8woz1Oxj9358-99-49D0 6:51:00 [facility] Progress NoteREPORT#:[id number] REPORT STATUS: SignedDATE:10/06/22 TIME: 1650 PATIENT: BRIGHT SALAZAR UNIT #: [id number]#: [id number] [facility] AGE: 57 SEX: M ATTEND: Kiel Gardiner [facility] AUTHOR: Sy Hester MD * ALL edits or amendments must be made on the electronic/computer document * SubjectiveChief complaint:s/p fall, headache which started 4 days PTAHPI:This is 57-year-old right-handed male with PMH significant for T2DM since 2007 poorly controlled, hypertriglyceridemia, hypertension, coronary artery disease status post CABG and PCI since 2009, PAD, chronic neuropathy, 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 Patient also reports headache in the parietal temporal area x4 days, with no other accompanying symptoms, but limits his ability to go to sleep. Work-up at [facility] ED showed a large area of loss of shaw-white matter differentiation at the right parietal lobe, concerning for cerebral infarct. Neurology was consulted, but patient is already outside the window for tPA. CTAof the head and neck showed a noncalcified proximal right ICA thrombus which is at risk for further embolization, as well as an evolving right MCA stroke without mass effect. CV surgery was consulted for right carotid endarterectomy. Patient was started on heparin drip and admitted to ICU. Patient is seen in the ICU before midnight, awake, alert, uncooperative with questions secondary to complaints of pain in the left lower extremity. Patient is hemodynamically stable, on room air, currently on heparin drip as ordered by neurology. Review of SystemsRespiratory:Reports: non productive cough, pleuritic pain, other (left-sided pleuritic pain). Denies: productive cough (sputum). Cardiovascular:Reports: chest pain (left-sided pleuritic pain). GI:Denies: abdominal pain, nausea, vomiting. All systems rev neg: except as marked Objective GeneralVS/I OLaboratory Tests: 10/06 10/06 10/06 1247 1238 1236 Chemistry POC Glucose (70 - 119 MG/DL) 158 H Coagulation PTT ([place]) (24 - 37.7 SECONDS) 48.2 H Serology T.pallidum Ab (FTA-ABS) (NonReactive Screen) NonReactive 10/06 10/06 10/06 0634 0634 0634 Chemistry Sodium (133 - 144 mmol/L) 130.0 L Potassium (3.5 - 5.1 mmol/L) 3.6 Chloride (95 - 105 mmol/L) 100 Carbon Dioxide (21 - 32 mmol/L) 27 Anion Gap (4.0 - 15.0 GAP calc) 3.0 L BUN (7 - 18 MG/DL) 14 Creatinine (0.55 - 1.30 MG/DL) 0.64 Glomerular Filtr Rate (>60 estGFR) 110 Glucose (70 - 110 MG/DL) 125 H Hemoglobin A1c (4.5 - 5.6 % IS-A1C) 10.9 H Estim Average Glucose (MG/DLest) 266 Calcium (8.5 - 10.1 MG/DL) 8.5 Phosphorus (2.5 - 4.9 MG/DL) 2.8 Magnesium (1.6 - 2.6 MG/DL) 1.7 Total Bilirubin (0.00 - 1.00 MG/DL) 0.32 Direct Bilirubin (0.00 - 0.30 MG/DL) 0.15 Indirect Bilirubin (0.2 - 1.3 MG/DL) 0.17 L AST (15 - 37 Unit/L) 29 ALT (12 - 78 Unit/L) 34 Total Alk Phosphatase (45 - 117 Unit/L) 77 Total Protein (6.4 - 8.2 G/DL) 7.4 Albumin (3.4 - 5.0 G/DL) 2.7 L Albumin/Globulin Ratio (1.2 - 2.2 RATIO) 0.6 L Triglycerides (0 - 150 MG/DL) 180 H Cholesterol (133 - 200 MG/DL) 147 LDL Cholesterol Measurd (0 - 129 MG/DL) 81 Non-HDL Cholesterol (<130 mg/dL) 117 HDL Cholesterol (40 - 59 MG/DL) 30 L LDL/HDL Ratio (1.48 - 3.22 Avg Ratio) 2.70 Cholesterol/HDL Ratio (0 RATIO) 4.90 Vitamin B12 (183 - 986 PG/ML) 693 Folate (3.10 - 17.50 NG/ML) 18.70 H TSH (0.340 - 4.820 mc IU/ML) 1.280 Specimen Appearance (1 NORMAL Index/DL) 1 NORMAL <2 MG Specimen Hemolysis (1 NORMAL Index/DL) 1 NORMAL <10 MG Coagulation PTT ([place]) (24 - 37.7 SECONDS) 40.9 H Hematology WBC (4.1 - 12.1 K/mm3) 6.9 RBC (3.8 - 5.5 M/mm3) 5.28 Hgb (10.6 - 15.8 G/DL) 14.6 Hct (31.8 - 47.4 %) 43.7 MCV (80.1 - 101.1 fL) 82.8 MCH (25.3 - 35.3 pg) 27.7 MCHC (32.7 - 35.1 G/DL) 33.4 RDW (12.2 - 16.4 %) 13.4 Plt Count (155 - 337 K/mm3) 261 MPV (7.6 - 10.4 fL) 10.3 Gran % (37.8 - 82.6 %) 60.3 Lymph % (Auto) (14.1 - 45.4 %) 24.2 Williams % (Auto) (2.5 - 11.7 %) 11.5 Eos % (Auto) (0.0 - 6.2 %) 2.9 Baso % (Auto) (0.0 - 2.6 %) 0.7 Gran # (2.0 - 13.7 k/mm3) 4.12 Lymph # (Auto) (0.6 - 3.8 K/mm3) 1.66 Williams # (Auto) (0.11 - 0.59 K/mm3) 0.79 H Eos # (Auto) (0.0 - 0.4 K/mm3) 0.20 Baso # (Auto) (0.0 - 0.1 K/mm3) 0.05 Immature Gran % (0.0 - 2.0 %) 0.4 Nucleated RBC % (0.0 - 1.0 /100WBC%) 0.0 Nucleated RBCs # (0.00 - 0.05 K/mm3) 0.00 Serology HIV 1 2 Antibody (NR SREEN) NonReactive 10/06 10/05 0023 2253 Chemistry POC Glucose (70 - 119 MG/DL) 183 H Coagulation PTT ([place]) (24 - 37.7 SECONDS) 35.4 Current Medications Sig/Ekta Start time Last Medication Dose Route Stop Time Status Admin Aspirin 81 MG DAILY 10/06 1100 AC 10/06 PO 11/05 1101 1308 Cyclobenzaprine HCl 10 MG TID PRN PRN 10/06 0900 AC 10/06 PO 11/05 0901 0921 Ezetimibe 10 MG BEDTIME 10/05 2100 AC 10/05 PO 11/04 2101 2132 Lidocaine 1 PATCH BEDTIME 10/05 2100 AC 10/05 TRANSDERM 11/04 2101 2133 Mupirocin 1 APPLIC BID 10/05 2100 AC 10/06 NASAL 10/10 0901 0920 Gabapentin 300 MG TID 10/05 1400 AC 10/06 PO 11/03 2201 1308 Heparin Sodium 1,800 UNIT ONCE@1200 10/05 1200 DC 10/05 IV 10/05 2359 1200 Sodium Chloride 250 ML BOLUS PRN 10/05 1130 AC IV Heparin Sodium 250 ML TITRATE 10/05 1100 CKD 10/06 (Porcine) IV 11/04 1101 1307 Metoprolol Tartrate 50 MG DAILY 10/05 0900 AC 10/06 PO 11/04 0901 0920 Insulin Human NPH 35 UNIT BID MEALS 10/05 0800 AC 10/06 SUBQ 11/04 0801 0920 Insulin Human Regular 10 UNIT AC 10/05 0730 AC 10/06 SUBQ 11/04 0731 1408 Ceftriaxone Sodium 1 GM Q24H 10/04 2345 AC 10/05 Sterile Water 10 ML IV 10/11 2344 2303 Zolpidem Tartrate 10 MG BEDTIME 10/04 2100 AC 10/05 PO 11/03 2101 2132 Acetaminophen 650 MG Q4H PRN PRN 10/04 1914 AC 10/06 PO 11/04 1915 1548 Acetaminophen 650 MG Q6H PRN PRN 10/04 1914 AC RECTAL 11/04 1915 Al Hydrox/Mg Hydrox/ 30 ML Q4H PRN PRN 10/04 1914 AC Simethicone PO 11/04 1915 Albuterol/Ipratropium 3 ML RTQ4H PRN PRN 10/04 1914 AC NEB 11/04 1915 Bisacodyl 10 MG DAILY PRN PRN 10/04 1914 AC PO 11/04 1915 Calcium Carbonate 1,000 MG DAILY PRN PRN 10/04 1914 AC PO 11/04 1915 Clonidine HCl 0.1 MG Q6H PRN PRN 10/04 1914 AC PO 11/04 1915 Dextrose/Water 25 ML ASDIR PRN 10/04 1914 CKD IV 11/04 1915 Glucagon 1 MG ASDIR PRN 10/04 1914 AC IM 11/04 1915 Glucose Polymer 15 GM ASDIR PRN 10/04 1914 AC PO 11/04 1915 Guaifenesin/ 10 ML QID PRN PRN 10/04 1914 AC 10/06 Dextromethorphan PO 11/04 1915 09 Hydralazine HCl 10 MG Q4H PRN PRN 10/04 1914 DC IV 11/04 1915 Hydrocodone Bitart/ 1 TAB Q4H PRN PRN 10/04 1914 AC Acetaminophen PO 11/04 1915 Hydrocodone Bitart/ 1 TAB Q4H PRN PRN 10/04 1914 AC 10/06 Acetaminophen PO 11/04 1915 0052 Insulin Human Lispro See Dose ASDIR PRN 10/04 1914 AC Insts (1) SUBQ 11/04 1915 Magnesium Sulfate/ 100 ML DAILY PRN PRN 10/04 1914 AC 10/06 Dextrose IV 11/04 1915 0924 Morphine Sulfate 2 MG Q4H PRN PRN 10/04 1914 AC 10/06 IV 11/04 1915 0628 Nitroglycerin 0.4 MG Q5M PRN PRN 10/04 1914 AC SL 11/04 1915 Ondansetron HCl 4 MG Q4H PRN PRN 10/04 1914 AC IV 11/04 1915 Potassium Chloride 40 MEQ DAILY PRN PRN 10/04 1914 AC PO 11/04 1915 Potassium Phos/ 2 PKT DAILY PRN PRN 10/04 1914 CKD Sodium Phos PO 11/04 1915 Senna 1 TAB DAILY PRN PRN 10/04 1914 CKD PO 11/04 1915 Simethicone 160 MG Q6H PRN PRN 10/04 1914 AC PO 11/04 1915 Sodium Chloride 250 ML BOLUS PRN 10/04 1914 AC IV Trazodone HCl 50 MG BEDTIME PRN PRN 10/04 1914 AC PO 11/04 1915 Lactated Ringer's 1,000 ML X1ED STA 10/04 1643 AC 10/04 IV 11/15 0842 1656 Dose Instructions:(1)Insulin Human Lispro: See Admin Criteria 24 hours ending at 0700 10/06 0700 10/05 2300 10/05 1500 Intake Total 840.00 524.00 Output Total 850 300 Balance -10.00 224.00 Intake, IV 140.00 44.00 Intake, Oral 700 480 Number Voids 3 Output, Urine 850 300 24 Hour I O Total 10/06 0700 Intake Total 1364.00 Output Total 1150 Balance 214.00 Laboratory Tests: 10/06 10/06 10/06 1247 1238 1236 Chemistry POC Glucose (70 - 119 MG/DL) 158 H Coagulation PTT (Nga) (24 - 37.7 SECONDS) 48.2 H Serology T.pallidum Ab (FTA-ABS) (NonReactive Screen) NonReactive 10/06 10/06 10/06 0634 0634 0634 Chemistry Sodium (133 - 144 mmol/L) 130.0 L Potassium (3.5 - 5.1 mmol/L) 3.6 Chloride (95 - 105 mmol/L) 100 Carbon Dioxide (21 - 32 mmol/L) 27 Anion Gap (4.0 - 15.0 GAP calc) 3.0 L BUN (7 - 18 MG/DL) 14 Creatinine (0.55 - 1.30 MG/DL) 0.64 Glomerular Filtr Rate (>60 estGFR) 110 Glucose (70 - 110 MG/DL) 125 H Hemoglobin A1c (4.5 - 5.6 % IS-A1C) 10.9 H Estim Average Glucose (MG/DLest) 266 Calcium (8.5 - 10.1 MG/DL) 8.5 Phosphorus (2.5 - 4.9 MG/DL) 2.8 Magnesium (1.6 - 2.6 MG/DL) 1.7 Total Bilirubin (0.00 - 1.00 MG/DL) 0.32 Direct Bilirubin (0.00 - 0.30 MG/DL) 0.15 Indirect Bilirubin (0.2 - 1.3 MG/DL) 0.17 L AST (15 - 37 Unit/L) 29 ALT (12 - 78 Unit/L) 34 Total Alk Phosphatase (45 - 117 Unit/L) 77 Total Protein (6.4 - 8.2 G/DL) 7.4 Albumin (3.4 - 5.0 G/DL) 2.7 L Albumin/Globulin Ratio (1.2 - 2.2 RATIO) 0.6 L Triglycerides (0 - 150 MG/DL) 180 H Cholesterol (133 - 200 MG/DL) 147 LDL Cholesterol Measurd (0 - 129 MG/DL) 81 Non-HDL Cholesterol (<130 mg/dL) 117 HDL Cholesterol (40 - 59 MG/DL) 30 L LDL/HDL Ratio (1.48 - 3.22 Avg Ratio) 2.70 Cholesterol/HDL Ratio (0 RATIO) 4.90 Vitamin B12 (183 - 986 PG/ML) 693 Folate (3.10 - 17.50 NG/ML) 18.70 H TSH (0.340 - 4.820 mc IU/ML) 1.280 Specimen Appearance (1 NORMAL Index/DL) 1 NORMAL <2 MG Specimen Hemolysis (1 NORMAL Index/DL) 1 NORMAL <10 MG Coagulation PTT (Nga) (24 - 37.7 SECONDS) 40.9 H Hematology WBC (4.1 - 12.1 K/mm3) 6.9 RBC (3.8 - 5.5 M/mm3) 5.28 Hgb (10.6 - 15.8 G/DL) 14.6 Hct (31.8 - 47.4 %) 43.7 MCV (80.1 - 101.1 fL) 82.8 MCH (25.3 - 35.3 pg) 27.7 MCHC (32.7 - 35.1 G/DL) 33.4 RDW (12.2 - 16.4 %) 13.4 Plt Count (155 - 337 K/mm3) 261 MPV (7.6 - 10.4 fL) 10.3 Gran % (37.8 - 82.6 %) 60.3 Lymph % (Auto) (14.1 - 45.4 %) 24.2 Williams % (Auto) (2.5 - 11.7 %) 11.5 Eos % (Auto) (0.0 - 6.2 %) 2.9 Baso % (Auto) (0.0 - 2.6 %) 0.7 Gran # (2.0 - 13.7 k/mm3) 4.12 Lymph # (Auto) (0.6 - 3.8 K/mm3) 1.66 Williams # (Auto) (0.11 - 0.59 K/mm3) 0.79 H Eos # (Auto) (0.0 - 0.4 K/mm3) 0.20 Baso # (Auto) (0.0 - 0.1 K/mm3) 0.05 Immature Gran % (0.0 - 2.0 %) 0.4 Nucleated RBC % (0.0 - 1.0 /100WBC%) 0.0 Nucleated RBCs # (0.00 - 0.05 K/mm3) 0.00 Serology HIV 1 2 Antibody (NR INDIGO) NonReactive 10/06 10/05 0023 2253 Chemistry POC Glucose (70 - 119 MG/DL) 183 H Coagulation PTT (Nga) (24 - 37.7 SECONDS) 35.4 Current Medications Sig/Ekta Start time Last Medication Dose Route Stop Time Status Admin Aspirin 81 MG DAILY 10/06 1100 AC 10/06 PO 11/05 1101 1308 Cyclobenzaprine HCl 10 MG TID PRN PRN 10/06 0900 AC 10/06 PO 11/05 0901 0921 Ezetimibe 10 MG BEDTIME 10/05 2100 AC 10/05 PO 11/04 2100 213 Lidocaine 1 PATCH BEDTIME 10/05 TRANSDERM 11/04 Mupirocin 1 APPLIC BID 10/05 2100 AC 10/06 NASAL 10/10 0901 0920 Gabapentin 300 MG TID 10/05 1400 AC 10/06 PO 11/03 2201 1308 Heparin Sodium 1,800 UNIT ONCE@1200 10/05 1200 DC 10/05 IV 10/05 2359 1200 Sodium Chloride 250 ML BOLUS PRN 10/05 1130 AC IV Heparin Sodium 250 ML TITRATE 10/05 1100 CKD 10/06 (Porcine) IV 11/04 1101 1307 Metoprolol Tartrate 50 MG DAILY 10/05 09 AC 10/06 PO 11/04 0901 0920 Insulin Human NPH 35 UNIT BID MEALS 10/05 0800 AC 10/06 SUBQ 11/04 0801 0920 Insulin Human Regular 10 UNIT AC 10/05 0730 AC 10/06 SUBQ 11/04 0731 1408 Ceftriaxone Sodium 1 GM Q24H 10/04 2344 AC 10/05 Sterile Water 10 ML IV 10/11 2344 2303 Zolpidem Tartrate 10 MG BEDTIME 10/04 2100 AC 10/05 PO 11/03 210 213 Acetaminophen 650 MG Q4H PRN PRN 10/04 1914 AC 10/06 PO 11/04 1915 1548 Acetaminophen 650 MG Q6H PRN PRN 10/04 1914 AC RECTAL 11/04 1915 Al Hydrox/Mg Hydrox/ 30 ML Q4H PRN PRN 10/04 1914 AC Simethicone PO 11/04 1915 Albuterol/Ipratropium 3 ML RTQ4H PRN PRN 10/04 1914 AC NEB 11/04 1915 Bisacodyl 10 MG DAILY PRN PRN 10/04 1914 AC PO 11/04 1915 Calcium Carbonate 1,000 MG DAILY PRN PRN 10/04 1914 AC PO 11/04 1915 Clonidine HCl 0.1 MG Q6H PRN PRN 10/04 1914 AC PO 11/04 1915 Dextrose/Water 25 ML ASDIR PRN 10/04 1914 CKD IV 11/04 1915 Glucagon 1 MG ASDIR PRN 10/04 1914 AC IM 11/04 1915 Glucose Polymer 15 GM ASDIR PRN 10/04 1914 AC PO 11/04 1915 Guaifenesin/ 10 ML QID PRN PRN 10/04 1914 AC 10/06 Dextromethorphan PO 11/0323 Hydralazine HCl 10 MG Q4H PRN PRN 10/04 1914 DC IV 11/04 1915 Hydrocodone Bitart/ 1 TAB Q4H PRN PRN 10/04 1914 AC Acetaminophen PO 11/04 1915 Hydrocodone Bitart/ 1 TAB Q4H PRN PRN 10/04 1914 AC 10/06 Acetaminophen PO 11/04 1915 0052 Insulin Human Lispro See Dose ASDIR PRN 10/04 1914 AC Insts (1) SUBQ 11/04 1915 Magnesium Sulfate/ 100 ML DAILY PRN PRN 10/04 1914 AC 10/06 Dextrose IV 11/04 1915 0924 Morphine Sulfate 2 MG Q4H PRN PRN 10/04 1914 AC 10/06 IV 11/03 Nitroglycerin 0.4 MG Q5M PRN PRN 10/04 1914 AC SL 11/04 1915 Ondansetron HCl 4 MG Q4H PRN PRN 10/04 1914 AC IV 11/04 1915 Potassium Chloride 40 MEQ DAILY PRN PRN 10/04 1914 AC PO 11/04 1915 Potassium Phos/ 2 PKT DAILY PRN PRN 10/04 1914 CKD Sodium Phos PO 11/04 1915 Senna 1 TAB DAILY PRN PRN 10/04 1914 CKD PO 11/04 1915 Simethicone 160 MG Q6H PRN PRN 10/04 1914 AC PO 11/04 1915 Sodium Chloride 250 ML BOLUS PRN 10/04 1914 AC IV Trazodone HCl 50 MG BEDTIME PRN PRN 10/04 1914 AC PO 11/04 1915 Lactated Ringer's 1,000 ML X1ED STA 10/04 1643 AC 10/04 IV 11/15 0842 1656 Dose Instructions:(1)Insulin Human Lispro: See Admin Criteria 24 hours ending at 0700 10/06 0700 10/05 2300 10/05 1500 Intake Total 840.00 524.00 Output Total 850 300 Balance -10.00 224.00 Intake, IV 140.00 44.00 Intake, Oral 700 480 Number Voids 3 Output, Urine 850 300 24 Hour I O Total 10/06 0700 Intake Total 1364.00 Output Total 1150 Balance 214.00 Last Documented: Result Date Time Resp 10/06 1631 Pulse Ox 96 10/06 1630 B/P 177/83 10/06 1630 B/P Mean 118 10/06 1630 Pulse 85 10/06 1630 Temp 99.3 10/06 1200 FiO2 21 10/06 0832 O2 Delivery Room air 10/06 0832 24 hour I O ending at 0700: 10/06 0700 10/05 1900 Intake Total 840.00 524.00 Output Total 850 300 Balance -10.00 224.00 Intake, IV 140.00 44.00 Intake, Oral 700 480 Number Voids 3 Output, Urine 850 300 PATIENT WEIGHT: Weight (lb): Weight (oz): Weight (kg): 90.700 Physical ExamGeneral appearance: alert, awake, oriented, no acute distress, conversational, mental status normal, no respiratory distressHead/eyes: atraumatic, clear cornea, EOMI, normal conjunctiva/sclera, normocephalic, PERRLENT: moist mucosal membranes, normal dentitionNeck: full range of motion, non-tender, normal thyroid, supple/no meningismus, no JVDCardiovascular: normal capillary refill, normal heart sounds, regular rate and rhythm, normal S1/S2, no ectopy, no murmurRespiratory: aerating well, clear to auscultation, symmetric expansion, no distressAbdomen: obese, soft, non-tender, normal bowel sounds, no distention, no guardingGenitourinary: no bladder distention, no urinary catheterExtremities: moves all, normal capillary refill, normal range of motion, no calftenderness, no clubbing, no cyanosis, no edema Vascular pulse assessment:palpated: R dorsalis pedis, R radial, L radial. non-palpable: L popliteal. 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 Patient also reports headache in the parietal temporal area x4 days, with no other accompanying symptoms, but limits his ability to go to sleep. Assessment:Right MCA stroke, secondary to a right distal CCA calcified plaque Right proximal ICA [id number] (HbA1c 10.9)Diabetic neuropathyDyslipidemiaHypertensionCAD, with History of CABG and PCI Peripheral Arterial Disease, history of Left BKALeft BKA Stump Wound Plan:Neurology following10/05/22 CTA Neck: right distal CCA calcified plaque with appearance of superimposed thrombus possible due to ruptured plaque, as per impression by NeurologyCV Surgery following, plan for right-sided carotid endarterectomy to be performed on 10/08/22Continued on Heparin gtt Neurochecks every hourTarget BP goal per Neurology: BP 110-130/<80Aspirin 81 mg dailyDid not start Statin - given report of Arthralgia as a response to statin treatments in the past. Therefore on Zetia insteadPending TTE Platelet response to P2Y12 inhibitor orderedNormal renal function, monitor mild hyponatremiaStable CBC; monitor dailyLeft stump BKA wound, Wound Care consultedBlood cultures in progressUA not suggestive of UTIUnclear why patient is on Ceftriaxone, will investigateHemoglobin A1c 10.9Continue subQ Insulin regimen Also, possible left-sided pleurisy, though remarkable findings not demonstrated on recent CT Chest and CTA chest findings. In addition, no remarkable findings on CT Abdomen/Pelvis with IV Contrast. Therefore, the etiology of this pain remains unclear.Check Troponin level Diet: Cardiac/ADA diet PT/OT Following VTE ppx: SCDs, Heparin gttGI ppx: CODE STATUS: FullDispo: ICU Total critical care time >35 minutes. Total critical care time documented does not include time spent on separately billed procedures or the services of residents, students, nurses or physician assistants. I personally saw and examined the patient. I have reviewed all diagnostic interpretations and treatment plans as written. I was present for the wyatt portions of any proceduresperformed and the inclusive time noted in any critical care statement. Critical care time includes patient management by me, time spent at the patients bedside,time to review lab and imaging results, discussing patient care, documentation in the medical record, and time spent with the family or caregiver. Consultants: cardiovascular surgery, critical/industrial tractor driver, hospitalist, neurology at 1719 RPT #:[id number] OF REPORTPRProgress [id number] Available for patient [id number] [facility] 2022-10-06 12:06:00 [id number] 2:06:00 [facility] CenterHospital[facility] Progress NoteREPORT#:[id number] REPORT STATUS: SignedDATE:10/06/22 TIME: 1206 PATIENT: BRIGHT SALAZAR UNIT #: [id number]#: [id number] [address] AGE: 57 SEX: M ATTEND: Kiel Gardiner [facility] AUTHOR: Jimmy Mark MD * ALL edits or amendments must be made on the electronic/computer document * SubjectiveChief complaint:Fell HeadachesHPI:This is a 57-year-old male with past medical history of diabetes hypertension CABG left BKA he was brought into the ER because he fell from the scooter he wason the scooter when he slipped and fell on the right side later at home he developed pain in the right chest and right side of the abdominal he was complaining of headache since 3 days which she never had it was right-sided throbbing he was also complaining of generalized weakness he also complains of redness in the left stump for which she they were supposed to prescribe an antibiotics denies any nausea vomiting diarrhea abdominal pain hematemesis melena blood in stool asking for more morphine's Objective GeneralVS/I O:Vital Signs: Date Time Temp Pulse Resp B/P B/P Pulse O2 O2 Flow FiO2 Mean Ox Delivery Rate 10/06 1130 77 17 133/70 96 92 10/06 1100 74 127/66 91 96 10/06 1045 17 10/06 1031 80 139/73 97 95 10/06 1000 87 152/72 104 94 10/06 0930 91 168/77 110 93 04/30 0900 90 168/78 112 97 04/30 0832 95 Room air 21 04 0830 79 17 160/72 104 94 0430 0800 80 16 150/71 101 94 0430 0745 18 04 0731 80 145/70 101 98 04/30 0730 79 161/77 110 96 04/30 0600 74 14 154/70 102 97 0430 0515 75 15 148/68 102 93 0430 0400 98.2 04 0400 76 15 147/71 102 94 0430 0300 78 16 150/73 102 94 0430 0101 84 32 167/88 125 97 04 0000 76 16 149/71 102 95 10/05 2322 98.1 10/05 2300 84 23 148/79 105 92 10/05 2200 75 17 128/68 91 95 10/05 2142 78 10/05 2100 75 18 135/69 96 95 10/05 2000 98.8 10/06 1999 75 21 117/56 82 93 10/05 1915 73 15 125/63 88 94 10/05 1901 79 34 141/68 97 94 10/05 1859 79 23 102/68 80 97 10/05 1830 74 15 117/70 88 94 10/05 1815 75 17 135/72 98 95 10/05 1800 75 17 139/74 100 95 10/05 1745 75 15 136/76 101 97 10/05 1730 73 16 141/69 97 95 10/05 1700 74 25 134/68 96 96 10/05 1647 73 15 92/40 58 96 10/05 1630 73 16 132/67 93 94 10/05 1615 72 16 133/69 96 93 10/05 1600 98.4 10/05 1600 77 22 166/78 111 98 10/05 1546 73 15 140/74 102 97 10/05 1530 73 14 131/66 93 95 10/05 1515 73 17 141/71 100 95 10/05 1500 73 15 149/70 100 94 10/05 1445 74 16 116/63 83 94 10/05 1430 73 13 131/68 93 95 10/05 1415 78 15 112/72 88 95 10/05 1400 74 15 127/69 92 94 10/05 1345 73 16 122/65 87 95 10/05 1330 71 11 128/76 97 96 10/05 1315 72 15 125/67 92 96 10/05 1300 80 42 147/87 111 10/05 1245 76 32 140/81 105 96 10/05 1230 75 13 133/66 93 95 10/05 1215 75 21 117/66 86 94 24 hour I O ending at 0700: 10/06 0700 10/05 1900 Intake Total 840.00 524.00 Output Total 850 300 Balance -10.00 224.00 Intake, IV 140.00 44.00 Intake, Oral 700 480 Number Voids 3 Output, Urine 850 300 PATIENT WEIGHT: Weight (lb): Weight (oz): Weight (kg): 90.700 Medications:Active Meds + DC'd Last 24 HrsAspirin (ASPIRIN) 81 MG DAILY PO Cyclobenzaprine HCl (FLEXERIL) 10 MG TID PRN PRN PO Ezetimibe (ZETIA) 10 MG BEDTIME PO Lidocaine (LIDODERM PATCH) 1 PATCH BEDTIME TRANSDERM Mupirocin (BACTROBAN) 1 APPLIC BID NASAL Gabapentin (NEURONTIN) 300 MG TID PO Heparin Sodium (HEPARIN) 1,800 UNIT ONCE@1200 IV (DC) Sodium Chloride (NORMAL SALINE 250 ML) 250 ML BOLUS PRN IV Heparin Sodium (Porcine) (Heparin 25,000 Unit/250-1/2 Ns) 250 ML TITRATE IV (CKD) Metoprolol Tartrate (LOPRESSOR) 50 MG DAILY PO Insulin Human NPH (HumuLIN N) 35 UNIT BID MEALS SUBQ Insulin Human Regular (HumuLIN R) 10 UNIT AC SUBQ Ceftriaxone Sodium (ROCEPHIN) 1 GM Q24H IV Sterile Water (STERILE WATER) 10 MLZolpidem Tartrate (AMBIEN) 10 MG BEDTIME PO Acetaminophen (TYLENOL) 650 MG Q4H PRN PRN PO Acetaminophen (TYLENOL) 650 MG Q6H PRN PRN RECTAL Al Hydrox/Mg Hydrox/Simethicone (MAALOX PLUS) 30 ML Q4H PRN PRN PO Albuterol/Ipratropium (DUONEB 2.5-0.5MG/3ML SOLN) 3 ML RTQ4H PRN PRN NEB Bisacodyl (DULCOLAX) 10 MG DAILY PRN PRN PO Calcium Carbonate (TUMS) 1,000 MG DAILY PRN PRN PO Clonidine HCl (CATAPRES) 0.1 MG Q6H PRN PRN PO Dextrose/Water (DEXTROSE 50%-WATER) 25 ML ASDIR PRN IV (CKD) Glucagon (GLUCAGON) 1 MG ASDIR PRN IM Glucose Polymer (GLUTOSE) 15 GM ASDIR PRN PO Guaifenesin/Dextromethorphan (ROBITUSSIN-DM) 10 ML QID PRN PRN PO Hydralazine HCl (APRESOLINE) 10 MG Q4H PRN PRN IV (DC) Hydrocodone Bitart/Acetaminophen (NORCO 5/325 TABLET) 1 TAB Q4H PRN PRN PO Hydrocodone Bitart/Acetaminophen (NORCO 10/325 TABLET) 1 TAB Q4H PRN PRN PO Insulin Human Lispro (HUMALOG) See Admin Criteria ASDIR PRN SUBQ Magnesium Sulfate/Dextrose (MAGNESIUM SULFATE 1GM/D5W 100ML) 100 ML DAILY PRN PRN IV Morphine Sulfate (morphine PF SYRINGE) 2 MG Q4H PRN PRN IV Nitroglycerin (NITROSTAT) 0.4 MG Q5M PRN PRN SL Ondansetron HCl (ZOFRAN) 4 MG Q4H PRN PRN IV Potassium Chloride (K-DUR) 40 MEQ DAILY PRN PRN PO Potassium Phos/Sodium Phos (PHOS-NAK PACKET) 2 PKT DAILY PRN PRN PO (CKD) Senna (SENOKOT) 1 TAB DAILY PRN PRN PO (CKD) Simethicone (MYLICON) 160 MG Q6H PRN PRN PO Sodium Chloride (NORMAL SALINE 250 ML) 250 ML BOLUS PRN IV Trazodone HCl (DESYREL) 50 MG BEDTIME PRN PRN PO Lactated Ringer's (LACTATED RINGERS) 1,000 ML X1ED STA IV Physical ExamGeneral appearance: awakeCardiovascular: normal heart soundsRespiratory: decreased breath soundsAbdomen: softExtremities: edemaNeuro/RN MATERNITY: alert Considered stroke alert: yes Diagnosis, Assessment PlanHospital course to date:57-year-old right-handed male with multiple risk factors as has diabetes diagnosed per patient since 2007 poorly controlled, hypertriglyceridemia, hypertension, history of multiple coronary artery disease status post CABG and PCI since 2009, history of peripheral artery disease, history of neuropathy chronic, history of left below the knee amputation last year due to to 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 CTA. 10/05/2022.Right internal carotid artery stenosis. thrombus at risk for further embolization. Evolving right middle cerebral artery distribution infarct without mass effect.Indeterminate right parotid lesions, for which otolaryngology consultation is recommended. In acute ischemic stroke, when the ischemic penumbra may be at risk of irreversible damage if cerebral blood flow is reduced by lowering the blood pressure. Many Trials trial found no clear benefit for blood pressure lowering within 12 hours of acute ischemic stroke onset, but an adjusted analysis suggested that a goal systolic blood pressure of 161 to 180 mmHg increased the odds of a good outcome compared with higher or lower goal blood pressures Patient seen and examined.No further deterioration of the neurological symptoms.Continue to care current management, physical therapy occupational therapy, speech therapy.Feedings if the patient can tolerate.We will keep the hemodynamic measures as well -Patient post TPA maintain BP between 161-180 in first 24 hours.-Plan to initiate cardene drip if BP is higher then 180mmHg.-Restart antihypertensive medications during hospitalization for patients with blood pressure >140/90 mmHg who are neurologically stable-Treat hypertension before and during reperfusion therapy for acute ischemic stroke.reperfusion therapy except that blood pressure is >185/110 mmHgLabetalol 10 to 20 mg intravenously over 1 to 2 minutes, may repeat one time; Nicardipine 5 mg/hour intravenously, titrate up by 2.5 mg/hour every 5 to 15 minutes, maximum 15 mg/hour.Antithrombotic therapy with aspirin initiated within 48 hours of stroke onset "Early antithrombotic treatment of acute ischemic stroke and transient ischemic attack limited mobility, we plan to use Lovenox 40 mg daily, or heparin?Prophylaxis for deep venous thrombosis and pulmonary embolism. VTE prophylaxis for select patients within 48 hours of acute ischemic stroke onset who have restricted mobility, TIA can be done through?Antithrombotic therapy at discharge if A fib is present?Lipid lowering with high intensity statin therapy ?Blood pressure reduction after the acute phase of ischemic stroke has passed ?Behavioral and lifestyle changes including smoking cessation, exercise, weight reduction for patients with obesity, and a Mediterranean style diet.-Repeat CT scan in 48 hours. MRI/MRA/MRV (if suspected Venous thrombosis -Neuro checks Q 1 hour. Respiratory Rate, HR, Pulse (dopplers) Core Temprature.Maintain MAP >65mmHg or SBP>90mmHgUse Crystalloids/ NS @30ml/kg to maintain adequate perfusion in sepsis.Circulatory Shock: Fluids,Pressors, prefer Levophed and titrate to keep Sr lactate less then 1mmol/LPlan to Keep CVP between 8-12mHg after CVC placement. PaO2 >60mmhg or ScVo2 >70%if CVC is presentPlan TTE: Evaluate for CO. LVEF, WMA, RVSP, Valve functions and Intracardiac Shunt.Maintain SaO2>90%, Titrate to minimize [id number] <60mmHg DuoNebs with empiric antibiotics with inhaled and systemic steroids in COPD patient with flare.Urine Output : Maintain urine output: 0.5-1.5mL/kg/hrIf Urine Output is decreased <500ml/day or anuria, plan to start IV fluids, UA with cultures, bladder scan, placement of Juan's Catheter. Avoidnephrotoxins, retroperitoneal US, nephrology consult as indicated.CBC, CMP, ABG, and Daily X ray as indicated. Surgical plan.Right carotid endarterectomy next week.Continue the patient on heparinAspirin can be given to the patient. No Plavix.Fall precautionSeizure precautionSpeech speech and swallow evaluationKeep the patient n.p.o. for ICU Core Measures Appropriate Labs/Imaging/Consultations: ReviewedAppropriate Peptic Ulcer Disease Prophylasix: ReviewedAppropriate Deep Venous Thrombosis Prophylasix: ReviewedVentilator Associated Pneumonia Prevention: ReviewedCentral Line,Associated Blood Stream Infection/Indwelling Juan Days: ReviewedAppropriate Sedation: ReviewedNeutritional Evaluation: ReviewedCentral Line-Associated Blood Stream Infection: ReviewedICU LOS/GMLOS: ReviewedAppropriate Plan of Care Discussed with Family Service Assistant TeamSAT/SBT Protocols: Reviewed for the PatientAppropriate Pain Scale By BPS/CPOT: ReviewedRASS, GCS and Delirium Severity Scale: AccessedDiscussion About Transfer/Discharge/Kfq-kj-fabx-care: Reviewed All pertinant labs, Imaging, EKG, telemetry data,and medical records are reviewed by me personally. I have discussed the available findings, initial diagnosis and related differentials with the patient/day care center director including RN. All concerns and questions are answered to the best of my abilities based on theavailable data.I have initiated the plan of care based on preliminary diagnosis,requested appopriate consultations with labs/imagings. Patient/day care center director verbalizes understanding of the plan of care. Plan discussed and agreed with the patient Problem List/A P: 1. Diabetes 2. Hyperglycemia 3. Diabetic foot infection 4. CAD (coronary artery disease) 5. GERD (gastroesophageal reflux disease) Consultants: cardiovascular surgery, critical/industrial tractor driver, hospitalist, neurology Free Text DxA P NotesFree text DxA P notes:57-year-old right-handed male with multiple risk factors as has diabetes diagnosed per patient since 2007 poorly controlled, hypertriglyceridemia, hypertension, history of multiple coronary artery disease status post CABG and PCI since 2009, history of peripheral artery disease, history of neuropathy chronic, history of left below the knee amputation last year due to to 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 CTA. 10/05/2022.Right internal carotid artery stenosis. thrombus at risk for further embolization. Evolving right middle cerebral artery distribution infarct without mass effect.Indeterminate right parotid lesions, for which otolaryngology consultation is recommended. In acute ischemic stroke, when the ischemic penumbra may be at risk of irreversible damage if cerebral blood flow is reduced by lowering the blood pressure. Many Trials trial found no clear benefit for blood pressure lowering within 12 hours of acute ischemic stroke onset, but an adjusted analysis suggested that a goal systolic blood pressure of 161 to 180 mmHg increased the odds of a good outcome compared with higher or lower goal blood pressures -Patient post TPA maintain BP between 161-180 in first 24 hours.-Plan to initiate cardene drip if BP is higher then 180mmHg.-Restart antihypertensive medications during hospitalization for patients with blood pressure >140/90 mmHg who are neurologically stable-Treat hypertension before and during reperfusion therapy for acute ischemic stroke.reperfusion therapy except that blood pressure is >185/110 mmHgLabetalol 10 to 20 mg intravenously over 1 to 2 minutes, may repeat one time; Nicardipine 5 mg/hour intravenously, titrate up by 2.5 mg/hour every 5 to 15 minutes, maximum 15 mg/hour.Antithrombotic therapy with aspirin initiated within 48 hours of stroke onset "Early antithrombotic treatment of acute ischemic stroke and transient ischemic attack limited mobility, we plan to use Lovenox 40 mg daily, or heparin?Prophylaxis for deep venous thrombosis and pulmonary embolism. VTE prophylaxis for select patients within 48 hours of acute ischemic stroke onset who have restricted mobility, TIA can be done through?Antithrombotic therapy at discharge if A fib is present?Lipid lowering with high intensity statin therapy ?Blood pressure reduction after the acute phase of ischemic stroke has passed ?Behavioral and lifestyle changes including smoking cessation, exercise, weight reduction for patients with obesity, and a Mediterranean style diet.-Repeat CT scan in 48 hours. MRI/MRA/MRV (if suspected Venous thrombosis -Neuro checks Q 1 hour. Respiratory Rate, HR, Pulse (dopplers) Core Temprature.Maintain MAP >65mmHg or SBP>90mmHgUse Crystalloids/ NS @30ml/kg to maintain adequate perfusion in sepsis.Circulatory Shock: Fluids,Pressors, prefer Levophed and titrate to keep Sr lactate less then 1mmol/LPlan to Keep CVP between 8-12mHg after CVC placement. PaO2 >60mmhg or ScVo2 >70%if CVC is presentPlan TTE: Evaluate for CO. LVEF, WMA, RVSP, Valve functions and Intracardiac Shunt.Maintain SaO2>90%, Titrate to minimize [id number] <60mmHg DuoNebs with empiric antibiotics with inhaled and systemic steroids in COPD patient with flare.Urine Output : Maintain urine output: 0.5-1.5mL/kg/hrIf Urine Output is decreased <500ml/day or anuria, plan to start IV fluids, UA with cultures, bladder scan, placement of Juan's Catheter. Avoidnephrotoxins, retroperitoneal US, nephrology consult as indicated.CBC, CMP, ABG, and Daily X ray as indicated. Surgical plan.Right carotid endarterectomy next week.Continue the patient on heparinAspirin can be given to the patient. No Plavix.Fall precautionSeizure precautionSpeech speech and swallow evaluationKeep the patient n.p.o. for ICU Core Measures Appropriate Labs/Imaging/Consultations: ReviewedAppropriate Peptic Ulcer Disease Prophylasix: ReviewedAppropriate Deep Venous Thrombosis Prophylasix: ReviewedVentilator Associated Pneumonia Prevention: ReviewedCentral Line,Associated Blood Stream Infection/Indwelling Juan Days: ReviewedAppropriate Sedation: ReviewedNeutritional Evaluation: ReviewedCentral Line-Associated Blood Stream Infection: ReviewedICU LOS/GMLOS: ReviewedAppropriate Plan of Care Discussed with Family Service Assistant TeamSAT/SBT Protocols: Reviewed for the PatientAppropriate Pain Scale By BPS/CPOT: ReviewedRASS, GCS and Delirium Severity Scale: AccessedDiscussion About Transfer/Discharge/Qej-jc-nnfj-care: Reviewed All pertinant labs, Imaging, EKG, telemetry data,and medical records are reviewed by me personally. I have discussed the available findings, initial diagnosis and related differentials with the patient/day care center director including RN. All concerns and questions are answered to the best of my abilities based on theavailable data.I have initiated the plan of care based on preliminary diagnosis,requested appopriate consultations with labs/imagings. Patient/day care center director verbalizes understanding of the plan of care. Plan discussed and agreed with the patient at 1207 RPT #:[id number] OF REPORTPRProgress [id number]:[id number] Available for patient [id number]:08:[address] [facility] 2022-10-06 11:06:00 [id number] ecSx [id number] 1:06:00 [facility] ProgREPORT#:[id number] REPORT STATUS: SignedDATE:10/06/22 TIME: 1106 PATIENT: BRIGHT SALAZAR UNIT #: [id number]#: [id number] [address] AGE: 57 SEX: M ATTEND: Kiel Gardiner AUTHOR: Kelvin Kern MD * ALL edits or amendments must be made on the electronic/computer document * SubjectiveChief complaint:Weakness left side Diagnosis, Assessment PlanFree Text A P:57-year-old male with right parietal infarct on CT.Patient also has a soft plaque in the right internal carotid artery.Neurology is on board.I was requested by neurology to see the patient.I have reviewed the patient's images. Based on the images the patient will needright carotid endarterectomy with patch angioplasty once stable enough from a neurology standpoint. I have discussed the case with neurology who want to givehim a few days on heparin and thereafter will undergo surgery.I have discussed all risk benefits and alternatives of the proposed procedure the patient and family understand willing to proceed with surgery.The patient will be scheduled for surgery this Coming Friday.Consultants: cardiovascular surgery, critical/industrial tractor driver, hospitalist, neurology at 1107 RPT #:[id number] OF REPORTPRProgress [id number]:[id number] Available for patient [id number]:[address] [facility] 2022-10-06 10:30:00 [id number] cCxB [id number] 0:30:00 [facility] ([facility])Neurology Progress NoteREPORT#:[id number] REPORT STATUS: SignedDATE:10/06/22 TIME: 1030 PATIENT: BRIGHT SALAZAR UNIT #: [id number]#: [id number] [address] AGE: 57 SEX: M ATTEND: Kiel Gardiner AUTHOR: Kiel Hammond MD * ALL edits or amendments must be made on the electronic/computer document * SubjectiveChief complaint:pain in ribs and fallHPI:Stated overall his headache somewhat better around 4 5/10. Today with some tenderness to touching his right faith. No photophobia or phonophobia. He stated however his rib cage still hurts and more on the left. no other issues reported. Copied from initial visit:57-year-old right-handed male with multiple risk factors as has diabetes diagnosed per patient since 2007 poorly controlled, hypertriglyceridemia, hypertension, history of multiple coronary artery disease status post CABG and PCI since 2009, history of peripheral artery disease, history of neuropathy chronic, history of left below the knee amputation last year due to to 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 On further questioningthe patient stated he had a headache for around 4 days prior to admission on theright side of his parietal temporal area that was throbbing, with very poor description of the characteristic but stated it limited his ability to sleep. There is no nausea, vomiting, photophobia or phonophobia with it. The head was not tender to touch. He did not notice the headache gets any better or any bodyposition. The headache was not going away. He did not drive much at home sincethen and reportedly was not feeling very well but was able to mobilize himself. Yesterday morning he woke up and he got onto his scooter and was going to the kitchen to make himself breakfast but fell and hit his rib cage and had pain since. He did not want to go to the hospital initially but then due to the persistence of the pain he decided to come in. Reported imaging obtained after 0 which showed early ischemic changes suspicious for a recent infarct on the right MCA distribution and I was made aware about the patient last night as reported symptoms was more than a day per ER.Patient stated overall it most bother him the most is his rib cage pain and his headache. He stated his headache is around 9/10 in severity. In distress and 1his pain to be improved rather than discussing further about his medical conditions. He stated he does not notice any weakness currently. No reported of numbness per the patient. He only stated he had chronic numbness in his feetfor long time. He did state he might have noticed some dry discharges on the amputation site on his left BKA. The patient stated he still smokes, he denied any illicit drug use. He stated last alcohol drink was June of this year.He stated no dizziness, does not notice any vision changes, no hearing/speech changes, no nausea/vomiting. Worsening rib cage pain when coughing. No right-sided weakness and did not notice left-sided weakness stated only affected by painNo report of measuring his blood pressure at home. Per description pre morbid mRS appear to be 1 is only uses a scooter given his left below the knee amputation and was in the process of getting a prosthetic device for his leg so he can ambulate without a scooter. He does everything on his own and lives by himself and will drive without any issues.On reported statin allergy, he stated he tried every statin that he was told to try but every time he tries it he will have significant joint pain in his legs, knees, hands and he would have to stop it for joint pain to go away. He did nottry ezetimibe before or Vascepa. Review of Systems Free Text ROS NotesFree Text ROS Notes:ROS as above Objective GeneralVS:Last Documented: Result Date Time Pulse Ox 95 10/06 0832 FiO2 21 10/06 0832 O2 Delivery Room air 10/06 0832 B/P 154/70 10/06 0600 B/P Mean 102 10/06 0600 Pulse 74 10/06 0600 Resp 14 10/06 0600 Temp 98.2 10/06 0400 PATIENT WEIGHT: Weight (lb): Weight (oz): Weight (kg): 90.700 MedicationsCurrent Home MedicationsASPIRIN 81 MG PO BID ZOLPIDEM (AMBIEN) 10 MG PO BEDTIME GABAPENTIN (NEURONTIN) 400 MG PO TID METOPROLOL TARTRATE (LOPRESSOR) 50 MG PO DAILY INSULIN NPH HUMAN RECOM (HumuLIN N) 35 UNITS SUBQ BID MEALS INSULIN REGULAR (HumuLIN R) 10 UNITS SUBQ AC CLOPIDOGREL (PLAVIX) 75 MG PO DAILY Active Meds + DC'd Last 24 HrsCyclobenzaprine HCl (FLEXERIL) 10 MG TID PRN PRN PO Atorvastatin Calcium (LIPITOR) 80 MG BEDTIME PO (CAN) Ezetimibe (ZETIA) 10 MG BEDTIME PO Lidocaine (LIDODERM PATCH) 1 PATCH BEDTIME TRANSDERM Mupirocin (BACTROBAN) 1 APPLIC BID NASAL Gabapentin (NEURONTIN) 300 MG TID PO Heparin Sodium (HEPARIN) 1,800 UNIT ONCE@1200 IV (DC) Sodium Chloride (NORMAL SALINE 250 ML) 250 ML BOLUS PRN IV Heparin Sodium (HEPARIN) 4,000 UNIT ONCE ONE IV (CAN) Heparin Sodium (Porcine) (Heparin 25,000 Unit/250-1/2 Ns) 250 ML TITRATE IV (CKD) Aspirin 325 MG DAILY PO (DC) Clopidogrel Bisulfate (PLAVIX) 75 MG DAILY PO (DC) Enoxaparin Sodium (LOVENOX) 30 MG Q12HR SUBQ (DC) Metoprolol Tartrate (LOPRESSOR) 50 MG DAILY PO Insulin Human NPH (HumuLIN N) 35 UNIT BID MEALS SUBQ Insulin Human Regular (HumuLIN R) 10 UNIT AC SUBQ Ceftriaxone Sodium (ROCEPHIN) 1 GM Q24H IV Sterile Water (STERILE WATER) 10 MLGabapentin (NEURONTIN) 400 MG TID PO (DC) Zolpidem Tartrate (AMBIEN) 10 MG BEDTIME PO Acetaminophen (TYLENOL) 650 MG Q4H PRN PRN PO Acetaminophen (TYLENOL) 650 MG Q6H PRN PRN RECTAL Al Hydrox/Mg Hydrox/Simethicone (MAALOX PLUS) 30 ML Q4H PRN PRN PO Albuterol/Ipratropium (DUONEB 2.5-0.5MG/3ML SOLN) 3 ML RTQ4H PRN PRN NEB Bisacodyl (DULCOLAX) 10 MG DAILY PRN PRN PO Calcium Carbonate (TUMS) 1,000 MG DAILY PRN PRN PO Clonidine HCl (CATAPRES) 0.1 MG Q6H PRN PRN PO Dextrose/Water (DEXTROSE 50%-WATER) 25 ML ASDIR PRN IV (CKD) Glucagon (GLUCAGON) 1 MG ASDIR PRN IM Glucose Polymer (GLUTOSE) 15 GM ASDIR PRN PO Guaifenesin/Dextromethorphan (ROBITUSSIN-DM) 10 ML QID PRN PRN PO Hydralazine HCl (APRESOLINE) 10 MG Q4H PRN PRN IV (DC) Hydrocodone Bitart/Acetaminophen (NORCO 5/325 TABLET) 1 TAB Q4H PRN PRN PO Hydrocodone Bitart/Acetaminophen (NORCO 10/325 TABLET) 1 TAB Q4H PRN PRN PO Insulin Human Lispro (HUMALOG) See Admin Criteria ASDIR PRN SUBQ Magnesium Sulfate/Dextrose (MAGNESIUM SULFATE 1GM/D5W 100ML) 100 ML DAILY PRN PRN IV Morphine Sulfate (morphine PF SYRINGE) 2 MG Q4H PRN PRN IV Nitroglycerin (NITROSTAT) 0.4 MG Q5M PRN PRN SL Ondansetron HCl (ZOFRAN) 4 MG Q4H PRN PRN IV Potassium Chloride (K-DUR) 40 MEQ DAILY PRN PRN PO Potassium Phos/Sodium Phos (PHOS-NAK PACKET) 2 PKT DAILY PRN PRN PO (CKD) Senna (SENOKOT) 1 TAB DAILY PRN PRN PO (CKD) Simethicone (MYLICON) 160 MG Q6H PRN PRN PO Sodium Chloride (NORMAL SALINE 250 ML) 250 ML BOLUS PRN IV Trazodone HCl (DESYREL) 50 MG BEDTIME PRN PRN PO Lactated Ringer's (LACTATED RINGERS) 1,000 ML X1ED STA IV ResultsFindings/Data:Laboratory Tests 10/06 10/06 10/06 0634 0634 0634 Chemistry Sodium (133 - 144 mmol/L) 130.0 L Potassium (3.5 - 5.1 mmol/L) 3.6 Chloride (95 - 105 mmol/L) 100 Carbon Dioxide (21 - 32 mmol/L) 27 Anion Gap (4.0 - 15.0 GAP calc) 3.0 L BUN (7 - 18 MG/DL) 14 Creatinine (0.55 - 1.30 MG/DL) 0.64 Glomerular Filtr Rate (>60 estGFR) 110 Glucose (70 - 110 MG/DL) 125 H Hemoglobin A1c (4.5 - 5.6 % IS-A1C) 10.9 H Estim Average Glucose (MG/DLest) 266 Calcium (8.5 - 10.1 MG/DL) 8.5 Phosphorus (2.5 - 4.9 MG/DL) 2.8 Magnesium (1.6 - 2.6 MG/DL) 1.7 Total Bilirubin (0.00 - 1.00 MG/DL) 0.32 Direct Bilirubin (0.00 - 0.30 MG/DL) 0.15 Indirect Bilirubin (0.2 - 1.3 MG/DL) 0.17 L AST (15 - 37 Unit/L) 29 ALT (12 - 78 Unit/L) 34 Total Alk Phosphatase (45 - 117 Unit/L) 77 Total Protein (6.4 - 8.2 G/DL) 7.4 Albumin (3.4 - 5.0 G/DL) 2.7 L Albumin/Globulin Ratio (1.2 - 2.2 RATIO) 0.6 L Triglycerides (0 - 150 MG/DL) 180 H Cholesterol (133 - 200 MG/DL) 147 LDL Cholesterol Measurd (0 - 129 MG/DL) 81 Non-HDL Cholesterol (<130 mg/dL) 117 HDL Cholesterol (40 - 59 MG/DL) 30 L LDL/HDL Ratio (1.48 - 3.22 Avg Ratio) 2.70 Cholesterol/HDL Ratio (0 RATIO) 4.90 Vitamin B12 (183 - 986 PG/ML) 693 Folate (3.10 - 17.50 NG/ML) 18.70 H TSH (0.340 - 4.820 mc IU/ML) 1.280 Specimen Appearance (1 NORMAL Index/DL) 1 NORMAL <2 MG Specimen Hemolysis (1 NORMAL Index/DL) 1 NORMAL <10 MG 10/05 10/05 10/05 2253 1554 1535 Chemistry POC Glucose (70 - 119 MG/DL) 183 H 171 H TSH (0.340 - 4.820 mc IU/ML) 1.260 Laboratory Tests 10/06 10/06 10/05 0634 0023 1555 Coagulation PT (9.4 - 12.5 SECONDS) 12.4 INR (0.88 - 1.13 INR Unit) 1.10 PTT ([place]) (24 - 37.7 SECONDS) 40.9 H 35.4 23.7 L Laboratory Tests 10/06 0634 Hematology WBC (4.1 - 12.1 K/mm3) 6.9 RBC (3.8 - 5.5 M/mm3) 5.28 Hgb (10.6 - 15.8 G/DL) 14.6 Hct (31.8 - 47.4 %) 43.7 MCV (80.1 - 101.1 fL) 82.8 MCH (25.3 - 35.3 pg) 27.7 MCHC (32.7 - 35.1 G/DL) 33.4 RDW (12.2 - 16.4 %) 13.4 Plt Count (155 - 337 K/mm3) 261 MPV (7.6 - 10.4 fL) 10.3 Gran % (37.8 - 82.6 %) 60.3 Lymph % (Auto) (14.1 - 45.4 %) 24.2 Williams % (Auto) (2.5 - 11.7 %) 11.5 Eos % (Auto) (0.0 - 6.2 %) 2.9 Baso % (Auto) (0.0 - 2.6 %) 0.7 Gran # (2.0 - 13.7 k/mm3) 4.12 Lymph # (Auto) (0.6 - 3.8 K/mm3) 1.66 Williams # (Auto) (0.11 - 0.59 K/mm3) 0.79 H Eos # (Auto) (0.0 - 0.4 K/mm3) 0.20 Baso # (Auto) (0.0 - 0.1 K/mm3) 0.05 Immature Gran % (0.0 - 2.0 %) 0.4 Nucleated RBC % (0.0 - 1.0 /100WBC%) 0.0 Nucleated RBCs # (0.00 - 0.05 K/mm3) 0.00 Laboratory Tests 10/06 0634 Serology HIV 1 2 Antibody (NR SREEN) NonReactive Laboratory Tests 10/05 1553 Toxicology Urine Opiates Screen (<300 NG/ML SCcutoff) POSITIVE H Urine Barbiturates (<200 NG/ML SCcutoff) NONE DETECTED (NEG) Ur Phencyclidine Scrn (<25 NG/ML SCcutoff) NONE DETECTED (NEG) Ur Amphetamines Screen (<1000 NG/ML SCcutoff) NONE DETECTED (NEG) U Benzodiazepines Scrn (<200 NG/ML SCcutoff) NONE DETECTED (NEG) Urine Cocaine Screen (<300 NG/ML SCcutoff) NONE DETECTED (NEG) Urine Cannabinoids (<50 NG/ML SCcutoff) NONE DETECTED (NEG) Laboratory Tests 10/05 155 Urines Urine Color (YELLOW DESCRIPT) YELLOW Urine Appearance (CLEAR DESCRIPT) CLEAR Urine pH (4.6 - 8.0 pH UNITS) 6.0 Ur Specific [place] (1.001 - 1.035 SG) >1.050 H Urine Protein (<30 (1+) mg/dL) 50 (1+) H Urine Glucose (UA) (0 (NORMAL) mg/dL) 300 (3+) H Urine Ketones ((NEG) 0 mg/dL) NEGATIVE (0) Urine Blood (0 (NEG) mg/dL) NEGATIVE (0.00) Urine Nitrite (NEG SCREEN) NEGATIVE (0) Urine Bilirubin ((NEG) 0 mg/dL) NEGATIVE (0.0) Urine Urobilinogen (<2.0 (1+) mg/Dl) NORMAL (0) Ur Leukocyte Esterase ((NEG) 0 Leuk/mcL) NEGATIVE (0) Urine RBC (0 - 3 #RBC/HPF) 0-3 Urine WBC (0 - 3 #WBC/HPF) NONE Ur Squamous Epith Cells (NONE - SQepi /UL) RARE >0 Urine Mucus (NONE /LPF) RARE Urine Yeast (NONE /HPF) FEW >5 H Free Text Obj NotesFree Text Obj Notes:Exam: A O to self, place, time, condition/situation. Mainly in discomfort from hisleft rib cageNo Gaze preference Visual perdue with left visual field cut. Funduscopy without clear papilledemaNo aphasia or dysarthria. Pupil equal, round and reactive b/l. Eye movement intact b/l. No facial droop. Tongue midline. Movement: 5/5 on the right, left upper extremity 4+/5 with limitation due to pain but with drift, left BKA with leg 4+/5 without a drift.Sensation would confabulate, has decreased sensation to pinprick on the left amparo face, unable to feel on the left arm. Does have sensory neglect on the leftNo nystagmus, No dysmetria b/l in all 4 exts with limitation due to pain and BKA. DTRs absent bilateral. NIHSS 6 (2 visual field, 1 left upper extremity, 2 sensation, 1 neglect) Diagnosis, Assessment PlanFree Text A P:Ischemic stroke right MCA distribution etiology embolic due to R distal CCA ruptured plaque with superimposed thrombusHeadache new onset suspect due to aboveMultiple uncontrolled risk factors including hypertension, peripheral artery disease, diabetes A1c 11, coronary artery disease multiple, smokingHypertriglyceridemiaRib cage pain post fallHistory of left BKA due to diabetic footArthralgia as a response to statin treatments in the pastReported restless leg in the legs taking gabapentin at night daily -CT reviewed yesterday with distal calcified plaque on the right CCA with superimposed thrombus without complete occlusion, with distal branch M2 occlusion at the location of the infarct seen on CT. MRI hopefully today. -Patient doing well with only rib cage pain, headache appears to be improving but still there. We will continue current treatment with gabapentin, reasonableto try Flexeril for his rib cage pain.-Status post heparin drip started yesterday with low bolus with medium intensitygoal for drip. We will keep on low-dose aspirin as well for now. Holding Plavix till after carotid endarterectomy. P2 Y12 ordered today and pending.-Continue monitoring in ICU for plans to do surgery hopefully on Friday morning. Monitor for worsening stroke symptoms. if worsening deficits then repeat imaging and consideration for endovascular therapy would be needed. -Can increase gabapentin tomorrow if continues to do well-On ezetimibe only as patient refused to take statin as had allergy to statin with joint pains and per report tried every statin. See below for further info. Vascepa outpatient is reasonable.We will continue to follow, call with questions copied from 10/06:Onset of the symptoms possible since Friday as patient did not recognize his deficit even currently, most noticeable symptoms with the fall happened yesterday outpatient coding specialist after waking up. Initially evaluated as a trauma. CTA recommended and will be obtained today as vascular imaging for etiology of the stroke. per description/report appear outside window for acute stroke therapy. -Treatment of the headache will try 1 dose Toradol with Compazine and Benadryl. Patient was aware of potential side effect and agreed to start the medication. stated takes gabapentin only one time at night and agreed to transition to 300 TID pattern for now as stated was too drowsy when started it as TID reportedly was 400 mg. - agreed to try ezetimibe. As did not want to try different statin currently suzette is in pain and is worried that he might get worsening pain. Sometimes pravastatin or rosuvastatin has less effect on causing joint pain. Some report on the use of CQ 10 might help however no official evidence yet available. Trying on Vascepa as an outpatient might be helpful if triglyceride continues haley elevated 3 months after treatment with ezetimibe.-Evaluation for headache depending on improvement of symptoms as appear most likely due to recent stroke.-MRI brain ordered. Echo ordered.-Patient agreed for testing for vitamins along with sexually transmitted diseases along with urine drug screening.-We will do permissive blood pressure for now till vascular imaging obtained. Blood pressure parameters to be adjusted after CTA obtained or after 24-hour post admission. If possible, would avoid hydralazine for the first week post stroke. Other options can be tried such as PRN Labetalol or Enalaprilat, IV drips, Captopril, Nifedipine, or if patient is a good candidate Clonidine.-Patient is aware that he needs to stop smoking. Better diabetes control is needed as A1c is 11. Blood cultures were obtained and might need wound culture given the patient reported symptoms of possible discharges from his left BKA surgical site.- Would continue on telemetry. Review of patient prior telemetry report from prior admission did not show any arrhythmia and patient was not aware of any arrhythmia in the past- Antiplatelet therapy: We will continue aspirin and Plavix as she takes it for his cardiac condition. We will check P2 Y12.-Neuropathy and stroke labs ordered- Q.4 hour neurochecks. This can be changed to Every shift after 72 hours of admission if patient is clinically stable without fluctuation or large vessel occlusion on imaging. - If diabetic, mainly with avoid hypoglycemia. Goal BG <180 overall adequate during inpatient stay.- If no pending for procedure, can start a diet if passes swallow.- Okay with gentle hydration from my end.- SQ Heparin/Lovenox SQ for DVT prophylaxis.- Fall precautions.- PT/OT/ST. For ischemic stroke care outpatient- Stroke risk factor goals as outpatient: A1c <7.0, BP 110-130/<80, BMI less than 24, LDL <70, Triglycerides <135.- Consideration for evaluation of obstructive sleep apnea after ischemic stroke/TIA as an outpatient is generally recommended.- Low threshold to screen for depression/anxiety (screening tools such as PHQ-9,GURJIT or aphasia depression rating scale) are recommended for patients poststroke in the outpatient settings.- Cognitive evaluation as an outpatient (at least within 1 year) is recommended for stroke.- Consideration for metformin is reasonable and ischemic stroke/TIA if the following is met: Prediabetes and <60 years of age or with BMI >34 or women withhistory of gestational diabetes.- For DM management in patient with ischemic stroke as outpatient: Can consider GLP-1 receptor agonist preferably or SGLT-2 inhibitors (preferably Dulaglutide if possible and no concern for potential heart/kidney failure) Please contact me with questions Critical care time: Minutes: 35 Patient was critically ill due to:ischemic stroke with R CCA/ICA stenosis with superimposed thrombus Additional comments:Imaging:I have personally reviewed the following images and agree with the formal interpretation with the following edits/additions. CT head without contrast:My independent review:White matter changes.No acute hypo-/hyper density seen.No encephalomalacia / midline shift / hydro present.Prior scans to compare Official report: CT C/T/L-spine without contrastMy independent review:Degenerative joint disease seen overall. No obvious C or T-spine anomaly. L-spine with limited views as limited study done without involvement of the sacralregion. Possible L4-L5 degenerative disc bulging with possible canal stenosis present Official report:Reviewed at 1043 RPT #:[id number] OF REPORTPRProgress [id number]:30:00B.[id number] Available for patient [id number]:43:[address] [facility] 2022-10-05 20:02:00 [id number] NNUq N2N2/7W/JxfLE3cY+kBWizkWn2TCKC+[id number] 0:02:00 [facility] ([facility])Critical Care Consult NoteREPORT#:[id number] REPORT STATUS: SignedDATE:10/05/22 TIME: 2001 PATIENT: BRIGHT SALAZAR UNIT #: [id number]#: [id number] [address] AGE: 57 SEX: M ATTEND: Kiel Gardiner MDA AUTHOR: Kristin Schneider APRN * ALL edits or amendments must be made on the electronic/computer document * Kristin Schneider 10/05/222001:History of Present Illness HPIRequesting clinician: DR. Tomlin for consult:strokeChief complaint:s/p fall, headache which started 4 days PTAHPI:This is 57-year-old right-handed male with PMH significant for T2DM since 2007 poorly controlled, hypertriglyceridemia, hypertension, coronary artery disease status post CABG and PCI since 2009, PAD, chronic neuropathy, 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 Patient also reports headache in the parietal temporal area x4 days, with no other accompanying symptoms, but limits his ability to go to sleep. Work-up at [facility] ED showed a large area of loss of shaw-white matter differentiation at the right parietal lobe, concerning for cerebral infarct. Neurology was consulted, but patient is already outside the window for tPA. CTAof the head and neck showed a noncalcified proximal right ICA thrombus which is at risk for further embolization, as well as an evolving right MCA stroke without mass effect. CV surgery was consulted for right carotid endarterectomy. Patient was started on heparin drip and admitted to ICU. Patient is seen in the ICU before midnight, awake, alert, uncooperative with questions secondary to complaints of pain in the left lower extremity. Patient is hemodynamically stable, on room air, currently on heparin drip as ordered by neurology. History - Adult longitudinalAdditional medical history:Diabetes, coronary artery disease hypertension hyperlipidemia coronary artery diseaseAdditional surgical history:Multiple toe amputations, transmetatarsal amputation, CABG c5Fvsuffsrel family history:Family history of diabetes, no bleeding or clotting dyscrasiasAlcohol use: Alcohol use (1-7 drinks per week)Drug use: Denies recreational drugsSmoking status for patients 13 years old or older: Current every day smokerDate last smoked: 10/04/22Allergies:Coded Allergies:Iytsddb-MEQ-DoN Reductase Inhibitor (Intermediate, JOINT PAIN 10/04/22) JOINT PAIN Review of Systems ROSConstitutional:Reports: generalized weakness. Denies: chills, fatigue, fever, lethargy, malaise, recent wt loss. Respiratory:Denies: AZEVEDO (dyspnea on exertion), hemoptysis, non productive cough, parox nocturnal dyspnea, pleurisy, pleuritic pain, pneumonia, productive cough (sputum), SOB, wheezing. Cardiovascular:Reports: chest pain. Denies: AZEVEDO (dyspnea on exertion), edema, orthopnea, palpitations, parox nocturnal dyspnea. GI:Denies: abdominal pain, anorexia, constipation, diarrhea, dysphagia, GERD, hematemesis, hematochezia, hiatal hernia, melena, nausea, rectal pain. :Denies: dysuria, flank pain, frequency, hematuria, nocturia, penile discharge, penile lesion, testicular pain, testicular swelling, urgency, urinary retention. Musculoskeletal:Reports: extremity pain, myalgias, thoracic pain. Denies: extremity swelling, joint pain, joint swelling, neck pain. Neuro:Reports: headache. Denies: bladder dysfunction, bowel dysfunction, change in LOC, confusion, dizziness, focal weakness, gait problem, lightheaded, numbness, seizure, slurred speech, spinning sensation, syncope, unable to speak, vision change, weakness. All systems rev neg: except as marked Objective Physical ExamVS/I O:Last Documented: Result Date Time Pulse Ox 97 10/05 717 B/P 133/77 10/05 717 B/P Mean 95.5 10/05 717 O2 Delivery Room air 10/05 717 Temp 99.0 10/05 717 Pulse 84 10/05 717 Resp 16 10/05 717 24 hour I O ending at 0700: 10/05 0700 10/04 1900 Intake Total Output Total Balance Patient 90.7 kg Weight Weight Stated/Reported Measurement Method Patient Weight and BMI Weight (kg): 90.700 BMI: 27.1 Medications:Active Meds + DC'd Last 24 HrsAtorvastatin Calcium (LIPITOR) 80 MG BEDTIME PO (CAN) Ezetimibe (ZETIA) 10 MG BEDTIME PO Mupirocin (BACTROBAN) 1 APPLIC BID NASAL Gabapentin (NEURONTIN) 300 MG TID PO Heparin Sodium (HEPARIN) 1,800 UNIT ONCE@1200 IV Sodium Chloride (NORMAL SALINE 250 ML) 250 ML BOLUS PRN IV Heparin Sodium (HEPARIN) 4,000 UNIT ONCE ONE IV (CAN) Heparin Sodium (Porcine) (Heparin 25,000 Unit/250-1/2 Ns) 250 ML TITRATE IV (CKD) Ketorolac Tromethamine (TORADOL) 15 MG ONCE ONE IV (DC) Aspirin 325 MG DAILY PO (DC) Clopidogrel Bisulfate (PLAVIX) 75 MG DAILY PO (DC) Enoxaparin Sodium (LOVENOX) 30 MG Q12HR SUBQ (DC) Metoprolol Tartrate (LOPRESSOR) 50 MG DAILY PO Diphenhydramine HCl (BENADRYL) 12.5 MG ONCE ONE IV (DC) Prochlorperazine Edisylate (COMPAZINE) 10 MG ONCE ONE IV (DC) Insulin Human NPH (HumuLIN N) 35 UNIT BID MEALS SUBQ Insulin Human Regular (HumuLIN R) 10 UNIT AC SUBQ Ceftriaxone Sodium (ROCEPHIN) 1 GM Q24H IV Sterile Water (STERILE WATER) 10 MLGabapentin (NEURONTIN) 400 MG TID PO (DC) Atorvastatin Calcium (LIPITOR) 40 MG BEDTIME PO (DC) Zolpidem Tartrate (AMBIEN) 10 MG BEDTIME PO Acetaminophen (TYLENOL) 650 MG Q4H PRN PRN PO Acetaminophen (TYLENOL) 650 MG Q6H PRN PRN RECTAL Al Hydrox/Mg Hydrox/Simethicone (MAALOX PLUS) 30 ML Q4H PRN PRN PO Albuterol/Ipratropium (DUONEB 2.5-0.5MG/3ML SOLN) 3 ML RTQ4H PRN PRN NEB Bisacodyl (DULCOLAX) 10 MG DAILY PRN PRN PO Calcium Carbonate (TUMS) 1,000 MG DAILY PRN PRN PO Clonidine HCl (CATAPRES) 0.1 MG Q6H PRN PRN PO Dextrose/Water (DEXTROSE 50%-WATER) 25 ML ASDIR PRN IV (CKD) Glucagon (GLUCAGON) 1 MG ASDIR PRN IM Glucose Polymer (GLUTOSE) 15 GM ASDIR PRN PO Guaifenesin/Dextromethorphan (ROBITUSSIN-DM) 10 ML QID PRN PRN PO Hydralazine HCl (APRESOLINE) 10 MG Q4H PRN PRN IV Hydrocodone Bitart/Acetaminophen (NORCO 5/325 TABLET) 1 TAB Q4H PRN PRN PO Hydrocodone Bitart/Acetaminophen (NORCO 10/325 TABLET) 1 TAB Q4H PRN PRN PO Insulin Human Lispro (HUMALOG) See Admin Criteria ASDIR PRN SUBQ Magnesium Sulfate/Dextrose (MAGNESIUM SULFATE 1GM/D5W 100ML) 100 ML DAILY PRN PRN IV Morphine Sulfate (morphine PF SYRINGE) 2 MG Q4H PRN PRN IV Nitroglycerin (NITROSTAT) 0.4 MG Q5M PRN PRN SL Ondansetron HCl (ZOFRAN) 4 MG Q4H PRN PRN IV Potassium Chloride (K-DUR) 40 MEQ DAILY PRN PRN PO Potassium Phos/Sodium Phos (PHOS-NAK PACKET) 2 PKT DAILY PRN PRN PO (CKD) Senna (SENOKOT) 1 TAB DAILY PRN PRN PO (CKD) Simethicone (MYLICON) 160 MG Q6H PRN PRN PO Sodium Chloride (NORMAL SALINE 250 ML) 250 ML BOLUS PRN IV Trazodone HCl (DESYREL) 50 MG BEDTIME PRN PRN PO Sodium Chloride (SODIUM CHLORIDE 0.9% 1000 ML) 1,000 ML .Q10H IV (DC) Lactated Ringer's (LACTATED RINGERS) 1,000 ML X1ED STA IV General appearance: chronically ill appearing, responsiveness, pleasant, conversational, mental status normal, no respiratory distressHead/Eyes: atraumatic, clear cornea, EOMI, normal conjunctiva/sclera, normocephalic, PERRLENT: moist mucosal membranes, normal dentitionNeck: full range of motion, non-tender, normal thyroid, supple/no meningismus, no JVDCardiovascular: normal capillary refill, normal heart sounds, regular rate and rhythm, normal S1/S2, no ectopy, no murmurRespiratory: aerating well, clear to auscultation, symmetric expansion, no distressAbdomen: obese, soft, non-tender, normal bowel sounds, no distention, no guarding Abdomen quadrants:LLQ normal bowel sounds, LUQ normal bowel sounds, RLQ normal bowel sounds, RUQ normal bowel soundsGenitourinary: no bladder distention, no urinary catheterExtremities: moves all, normal capillary refill, normal range of motion, no calftenderness, no clubbing, no cyanosis, no edema Vascular pulse assessment:palpated: R dorsalis pedis, R radial, L radial. non-palpable: L popliteal. Musculoskeletal: normal inspection, painless range of motionNeuro/RN MATERNITY: alert, oriented X 3, normal speech Considered stroke alert: yesSkin: dry, intact, normal color, normal temperature, no rash Scores GlasgowGlasgow Coma Score: Copyright Sir Deepak Sal Copyright Sir Deepak Sal Eye opening: (3) To sound Verbal response: (5) Oriented Best motor response: (6) Obeys commands Diagnosis, Assessment Plan Diagnosis, Assessment PlanProblem list/A P: 1. Status post below-knee amputation of left lower extremity 2. Fall 3. CAD (coronary artery disease) 4. Carotid stenosis 5. Diabetes 6. Ischemic stroke Orders: Procedure Date/time Status PHOSPHOROUS 10/06 0500 Active MAGNESIUM 10/06 0500 Active Consultants: cardiovascular surgery, critical/industrial tractor driver, hospitalist, neurologyPlan discussed with: patient, nurseCritical care time: Minutes: 35 Code Status/Resusc. 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 Patient also reports headache in the parietal temporal area x4 days, with no other accompanying symptoms, but limits his ability to go to sleep. Assessment:Right MCA strokeRight proximal ICA farneakjF8ITPeybkxoy neuropathyDyslipidemiaHypertensionCAD Plan:Currently on heparin drip per neurologyNeurochecks every hourAs needed nifedipine drip, titrate to keep systolic less than 180, diastolic less than 105Can also use labetalol or esmolol to keep above parametersKeep systolic greater than 110 mmHgAvoid hydralazine at this timeContinue statins as previously wxqlaxs6A echo with bubble studyCT of the head showed loss of shaw-white matter in the large area, concerning for right MCA strokeCTA of the head and neck showed a noncalcified proximal right ICA thrombusMRI of the head pendingLipid profileTSH level normalPatient stated he was unable to take all statins secondary to joint painsPlatelet response to P2Y12 inhibitor orderedOn Zetia per neurologyOn gabapentin 300 mg 3 times a dayLidocaine patch to left lower extremity orderedOn as needed [facility] and morphine for painContinue Lovenox as previously orderedContinue aspirin as previously orderedContinue Plavix as previously orderedContinue metoprolol as previously orderedHemoglobin A1c 11.2SSI to keep blood sugar less than 180Continue NPH as previously orderedNutrition counselingPT and OT evalCase management consultNeurology followingCV surgery followingPlan is for right carotid endarterectomy next week per CV surgery Feeding: Cardiac dietAnalgesia: Acetaminophen, [facility] and morphine as neededSedation: Not indicatedThrombolytics: SCDs and lovenoxHead of bed at 30 degreesUlcer prevention: Not indicatedGlycemic control: SSI to keep blood sugar less than 150 CODE STATUS: FullDispo: ICU Total critical care time >35 minutes. Total critical care time documented does not include time spent on separately billed procedures or the services of residents, students, nurses or physician assistants. I personally saw and examined the patient. I have reviewed all diagnostic interpretations and treatment plans as written. I was present for the wyatt portions of any proceduresperformed and the inclusive time noted in any critical care statement. Critical care time includes patient management by me, time spent at the patients bedside,time to review lab and imaging results, discussing patient care, documentation in the medical record, and time spent with the family or caregiver. Sy Hester 10/06/22 0741:Attestations Physician AttestationAgree w/findings plan:This patient was reviewed and examined independently by myself at bedside. I agree with the Nurse Practioner's Assessment and Plan as per above. Total critical care time >35 minutes. Total critical care time documented does not include time spent on separately billed procedures or the services of residents, students, nurses or physicianassistants. I personally saw and examined the patient. I have reviewed all diagnostic interpretations and treatment plans as written. I was present for thekey portions of any procedures performedand the inclusive time noted in any critical care statement. Critical care time includes patient management by me, time spent at the patients bedside, time to review lab and imaging results,discussing patient care, documentation in the medical record, and time spent with the family or caregiver. - Dr. Sy Hester - Pulmonary and Professor Of Communication And Writing- [facility] - If any concerns/questions, please call. at 0613 at 0742 RPT #:[id number] OF [id number]:02:00B. [id number] for patient [id number]:13:[address] [facility] 2022-10-05 13:13:00 [id number] HlTo NVHbUcMM+FzmVtm/[id number] 3:13:00 [facility] ConsultREPORT#:[id number] REPORT STATUS: SignedDATE:10/05/22 TIME: 1313 PATIENT: BRIGHT SALAZAR UNIT #: [id number]#: [id number] [address] AGE: 57 SEX: M ATTEND: Kiel Gardiner [facility] AUTHOR: Kelvin Kern MD * ALL edits or amendments must be made on the electronic/computer document * History of Present Illness HPIChief complaint:Weakness left sideHPI:This is a 57-year-old male with past medical history of diabetes hypertension CABG left BKA he was brought into the ER because he fell from the scooter he wason the scooter when he slipped and fell on the right side later at home he developed pain in the right chest and right side of the abdominal he was complaining of headache since 3 days which she never had it was right-sided throbbing he was also complaining of generalized weakness he also complains of redness in the left stump for which she they were supposed to prescribe an antibiotics denies any nausea vomiting diarrhea abdominal pain hematemesis melena blood in stool asking for more morphine's HistoryAdditional Medical History:Diabetes, coronary artery disease hypertension hyperlipidemia coronary artery diseaseAdditional Surgical History:Multiple toe amputations, transmetatarsal amputation, CABG o1Qcspbhg status for patients 13 years old or older: Current every day smokerDate last smoked: 10/04/22Additional Social History:Pre-hospital services utilized: None Occupation/Profession: Full-time employed Education history: Return to work/school plan: return to work as able Marital status: Never Hobbies/leisure activities: Prior living situation: Home Living with: AloneAllergies:Coded Allergies:Xknfuvt-ZGK-BdM Reductase Inhibitor (Intermediate, JOINT PAIN 10/04/22) JOINT PAIN Review of Systems Free Text ROS NotesFree Text ROS Notes:Review of SystemsConstitutional:Denies: chills, fatigue, fever, generalized weakness, lethargy, malaise, recent wt loss, other. Skin:Denies: abrasion, bruising, contusion, diaphoresis, ecchymosis, itching, laceration, rash, swelling, other. Allergy/Immun:Denies: allergic reaction, anaphylaxis, hives, itching, rhinorrhea, sneezing, other. ENT:Denies: ear drainage, ear ringing, earache, hearing loss, mouth pain, nasal congestion, nose bleeding, sinus problem, sore throat, throat pain, throat swelling, tongue pain, tongue swelling, toothache, voice change, other. Respiratory:Denies: AZEVEDO (dyspnea on exertion), hemoptysis, non productive cough, parox nocturnal dyspnea, pleurisy, pleuritic pain, pneumonia, productive cough (sputum), SOB, wheezing, other. Cardiovascular:Denies: chest pain, AZEVEDO (dyspnea on exertion), edema, orthopnea, palpitations, parox nocturnal dyspnea, other. GI:Denies: abdominal pain, anorexia, constipation, diarrhea, dysphagia, GERD, hematemesis, hematochezia, hiatal hernia, melena, nausea, rectal pain, vomiting,other. Musculoskeletal:Denies: arthritis, extremity pain, extremity swelling, joint pain, joint swelling, lumbar pain, myalgias, neck pain, thoracic pain, other. Neuro:Denies: bladder dysfunction, bowel dysfunction, reports: Change in LOC, confusion, dizziness, focal weakness, gait problem, headache, lightheaded, numbness, seizure, slurred speech, spinning sensation, syncope, unable to speak,vision change, weakness, other. Psych:Denies: agitation, anxiety, auditory hallucination, change in mental status, confusion, delusional, depression, homicidal ideation, hostile, insomnia, stress, suicidal ideation, visual hallucination, other. Objective Physical ExamVS/I O:Last Documented: Result Date Time Pulse Ox 97 10/05 717 B/P 133/77 10/05 717 B/P Mean 95.5 10/05 717 O2 Delivery Room air 10/05 717 Temp 99.0 10/05 717 Pulse 84 10/05 717 Resp 16 10/05 717 24 hour I O ending at 0700: 10/05 1900 Intake Total Output Total Balance Patient 90.7 kg Weight Weight Stated/Reported Measurement Method PATIENT WEIGHT: Weight (lb): Weight (oz): Weight (kg): 90.700 ResultsFindings/Data:Laboratory Tests 10/05 10/05 10/05 10/04 0623 0511 0511 2111Chemistry POC Glucose (70 - 119 MG/DL) 146 H 180 H Hemoglobin A1c (4.5 - 5.6 % IS-A1C) 11.2 H Estim Average Glucose (MG/DLest) 275 Triglycerides (0 - 150 MG/DL) 215 H Cholesterol (133 - 200 MG/DL) 144 LDL Cholesterol Measurd (0 - 129 MG/DL) 74 Non-HDL Cholesterol (<130 mg/dL) 117 HDL Cholesterol (40 - 59 MG/DL) 27 L LDL/HDL Ratio (1.48 - 3.22 Avg Ratio) 2.74 Cholesterol/HDL Ratio (0 RATIO) 5.33 Specimen Appearance (1 NORMAL Index/DL) 1 NORMAL <2 MG Specimen Hemolysis (1 NORMAL Index/DL) 1 NORMAL <10 MG 10/04 10/04 10/04 1501 1501 1501 Chemistry Sodium (133 - 144 mmol/L) 130.0 L Potassium (3.5 - 5.1 mmol/L) 3.8 Chloride (95 - 105 mmol/L) 99 Carbon Dioxide (21 - 32 mmol/L) 25 Anion Gap (4.0 - 15.0 GAP calc) 6.0 BUN (7 - 18 MG/DL) 19 H Creatinine (0.55 - 1.30 MG/DL) 0.89 Glomerular Filtr Rate (>60 estGFR) 100 Glucose (70 - 110 MG/DL) 290 H Calcium (8.5 - 10.1 MG/DL) 9.2 Magnesium (1.6 - 2.6 MG/DL) 1.5 L Total Bilirubin (0.00 - 1.00 MG/DL) 0.38 Direct Bilirubin (0.00 - 0.30 MG/DL) 0.11 Indirect Bilirubin (0.2 - 1.3 MG/DL) 0.27 AST (15 - 37 Unit/L) 17 ALT (12 - 78 Unit/L) 38 Total Alk Phosphatase (45 - 117 Unit/L) 88 Troponin I High Sens (0 - 45 ng/L) 24 Total Protein (6.4 - 8.2 G/DL) 8.0 Albumin (3.4 - 5.0 G/DL) 3.0 L Albumin/Globulin Ratio (1.2 - 2.2 RATIO) 0.6 L Specimen Appearance (1 NORMAL Index/DL) 1 NORMAL <2 MG Specimen Hemolysis (1 NORMAL Index/DL) 1 NORMAL <10 MG Laboratory Tests 10/04 1501 Hematology WBC (4.1 - 12.1 K/mm3) 11.5 RBC (3.8 - 5.5 M/mm3) 5.43 Hgb (10.6 - 15.8 G/DL) 15.0 Hct (31.8 - 47.4 %) 43.7 MCV (80.1 - 101.1 fL) 80.5 MCH (25.3 - 35.3 pg) 27.6 MCHC (32.7 - 35.1 G/DL) 34.3 RDW (12.2 - 16.4 %) 13.3 Plt Count (155 - 337 K/mm3) 283 MPV (7.6 - 10.4 fL) 9.8 Gran % (37.8 - 82.6 %) 70.9 Lymph % (Auto) (14.1 - 45.4 %) 18.7 Williams % (Auto) (2.5 - 11.7 %) 8.8 Eos % (Auto) (0.0 - 6.2 %) 0.9 Baso % (Auto) (0.0 - 2.6 %) 0.4 Gran # (2.0 - 13.7 k/mm3) 8.13 Lymph # (Auto) (0.6 - 3.8 K/mm3) 2.15 Williams # (Auto) (0.11 - 0.59 K/mm3) 1.01 H Eos # (Auto) (0.0 - 0.4 K/mm3) 0.10 Baso # (Auto) (0.0 - 0.1 K/mm3) 0.05 Immature Gran % (0.0 - 2.0 %) 0.3 Nucleated RBC % (0.0 - 1.0 /100WBC%) 0.0 Nucleated RBCs # (0.00 - 0.05 K/mm3) 0.00 Radiology data:Recent Impressions:RADIOLOGY - XR CHEST 1 V 10/04 1452 Report Impression - Status: SIGNED Entered: 10/04/2022 1459 IMPRESSION: No acute pulmonary process.Impression By: [email or web address] Karen Díaz M.D.CAT SCAN - CT L-SPINE W/O CONTRAST 10/04 1714 Report Impression - Status: SIGNED Entered: 10/04/2022 180 IMPRESSION: 1. No acute traumatic abnormalities of the chest, abdomen, pelvis,thoracic spine, or lumbar spine.2. Chronic findings as above. Impression By: [email or web address] - Ilene Crook, MDCAT SCAN - CT T-SPINE W/O CONTRAST 10/04 1714 Report Impression - Status: SIGNED Entered: 10/04/20221804 IMPRESSION: 1. No acute traumatic abnormalities of the chest, abdomen, pelvis,thoracic spine, or lumbar spine.2. Chronic findings as above. Impression By: [email or web address] - Ilene Fuentesfeld, MDCAT SCAN - CT CHEST W/CONTRAST 10/04 1714 Report Impression - Status: SIGNED Entered: 10/04/20221804 IMPRESSION: 1. No acute traumatic abnormalities of the chest, abdomen, pelvis,thoracic spine, or lumbar spine.2. Chronic findings as above. Impression By: [email or web address] - Ilene Fuentesfeld, MDCAT SCAN - CT ABD PELVIS W/CONT 10/04 1714 Report Impression - Status: SIGNED Entered: 10/04/2022 180 IMPRESSION: 1. No acute traumatic abnormalities of the chest, abdomen, pelvis,thoracic spine, or lumbar spine.2. Chronic findings as above. Impression By: [email or web address] - Ilene Crook, MDCAT SCAN - CT C-SPINE W/O CONT 10/04 173 Report Impression - Status: SIGNED Entered: 10/04/2022 175 IMPRESSION: 1. Loss of shaw-white matter differentiation and a large area at theright parietal lobe concerning for cerebral infarction.2. No acute fracture or malalignment of the cervical spine.3. Multilevel degenerative changes of the cervical spine. Findings concerning for cerebral infarction were communicated Jolanta Haro MD by telephone on 10/04/2022 5:49 PM. Impression By: Isidoro Crook, [facility] SCAN - CT HEAD/BRAIN W/O CONT 10/04 1733 Report Impression - Status: SIGNED Entered: 10/04/2022 1752 IMPRESSION: 1. Loss of shaw-white matter differentiation and a large area at theright parietal lobe concerning for cerebral infarction.2. No acute fracture or malalignment of the cervical spine.3. Multilevel degenerative changes of the cervical spine. Findings concerning for cerebral infarction were communicated Jolanta Haro MD by telephone on 10/04/2022 5:49 PM. Impression By: Isidoro Crook, [facility] SCAN - CT ANGIO NECK 10/05 0950 Report Impression - Status: SIGNED Entered: 10/05/2022 1020 IMPRESSION: 1. Noncalcified proximal right cervical internal carotid arterythrombus at risk for further embolization.2. Evolving right middle cerebral artery distribution infarct withoutmass effect.3. Indeterminate right parotid lesions, for which otolaryngologyconsultation is recommended. Findings were discussed with Dr. Fischer on 10/05/2022 at 1015.Impression By: Juanjo Ramirez, [facility] - CT ANGIO HEAD 10/05 0950 Report Impression - Status: SIGNED Entered: 10/05/2022 1020 IMPRESSION: 1. Noncalcified proximal right cervical internal carotid arterythrombus at risk for further embolization.2. Evolving right middle cerebral artery distribution infarct withoutmass effect.3. Indeterminate right parotid lesions, for which otolaryngologyconsultation is recommended. Findings were discussed with Dr. Fischer on 10/05/2022 at 1015.Impression By: Juanjo Ramirez MD Free Text Obj NotesFree Text Obj Notes:General appearance: alert, awake, oriented, no acute distressHEENT: anicteric, mucosal membranes moist, pupils reactive to light, sclera clearNeck: full range of motion, non-tender, supple/no meningismus, no JVD, no massesor swellingCardiovascular: BP/pulses equal bilat., regular rate rhythm, no ectopy, no gallop, no heave, no rubRespiratory: aerating well, clear to auscultation, symmetric expansion, no distress, no tendernessAbdomen: soft, non-tender, normal bowel sounds, no distention, no guarding, no hernia, no mass/organomegaly, no reboundExtremities: dry, moves all, normal capillary refillMusculoskeletal: full range of motion, no CVA tenderness, no muscle spasmNeuro/RN MATERNITY: alert, oriented X 3, Psychiatry: normal affect, normal judgment/insight, normal mood, not homicidal, not suicidal, no hallucinations Diagnosis, Assessment PlanFree Text A P:57-year-old male with right parietal infarct on CT.Patient also has a soft plaque in the right internal carotid artery.Neurology is on board.I was requested by neurology to see the patient.I have reviewed the patient's images. Based on the images the patient will needright carotid endarterectomy with patch angioplasty once stable enough from a neurology standpoint. I have discussed the case with neurology who want to givehim a few days on heparin and thereafter will undergo surgery.I have discussed all risk benefits and alternatives of the proposed procedure the patient and family understand willing to proceed with surgery.The patient will be scheduled for surgery this Coming Friday or Friday. at 1316 RPT #:[id number] OF REPORTFWKgxqmejhbzbe1749-88-46Q46:13:00B. [id number] for patient ibhdQEAOUCVNIGMENF8658-26-80P72:16:[address] [facility] 2022-10-05 13:05:00 [id number] Briseida d5F7BIEUk4/XqwqGgC5qdOezIkuZGLG94792-05-56R9 3:05:00 [facility] ([facility])Hospitalist History PhysicalREPORT#:[id number] REPORT STATUS: SignedDATE:10/05/22 TIME: 1305 PATIENT: BRIGHT SALAZAR UNIT #: [id number]#: [id number] [id number] AGE: 57 SEX: M ATTEND: Kiel Gardiner AUTHOR: Jimmy Mark MD * ALL edits or amendments must be made on the electronic/computer document * History of Present Illness HPIChief complaint:Fell HeadachesHPI:This is a 57-year-old male with past medical history of diabetes hypertension CABG left BKA he was brought into the ER because he fell from the scooter he wason the scooter when he slipped and fell on the right side later at home he developed pain in the right chest and right side of the abdominal he was complaining of headache since 3 days which she never had it was right-sided throbbing he was also complaining of generalized weakness he also complains of redness in the left stump for which she they were supposed to prescribe an antibiotics denies any nausea vomiting diarrhea abdominal pain hematemesis melena blood in stool asking for more morphine's History Past Medical Surgical HxAdditional medical history:Diabetes, coronary artery disease hypertension hyperlipidemia coronaryartery diseaseAdditional surgical history:Multiple toe amputations, transmetatarsal amputation, CABG x4 Family HistoryAdditional family history:Family history of diabetes, no bleeding or clotting dyscrasias Social HistorySmoking status for patients 13 years old or older: Current every day smokerDate last smoked: 10/04/22Additional social history:Pre-hospital services utilized: None Occupation/Profession: Full-time employed Education history: Return to work/school plan: return to work as able Marital status: Never Hobbies/leisure activities: Prior living situation: Home Living with: Alone Medication/Allergy-Vaccine HxAllergies:Coded Allergies:Tfufqdd-NJU-EqJ Reductase Inhibitor (Intermediate, JOINT PAIN 10/04/22) JOINT PAIN OBJECTIVEVS/I O:Vital Signs Date Temp Pulse Resp B/P B/P Mean Pulse Ox FiO2 10/04-10/05 97.5-99.0 84-98 16-20 130-158/68-91 94.0-110 94-100 Last Documented: Result Date Time Pulse Ox 97 04/29 0718 B/P 133/77 10/05 717 B/P Mean 95.5 10/05 717 O2 Delivery Room air 10/05 717 Temp 99.0 10/05 717 Pulse 84 10/05 717 Resp 16 10/05 717 24 hour I O ending at 0700: 10/05 0700 10/04 1900 Intake Total Output Total Balance Patient 90.7 kg Weight Weight Stated/Reported Measurement Method Patient Weight and BMI Weight (kg): 90.700 BMI: 27.1 Medications:Active Meds + DC'd Last 24 HrsAtorvastatin Calcium (LIPITOR) 80 MG BEDTIME PO (CAN) Ezetimibe (ZETIA) 10 MG BEDTIME PO Gabapentin (NEURONTIN) 300 MG TID PO Heparin Sodium (HEPARIN) 1,800 UNIT ONCE@1200 IV Sodium Chloride (NORMAL SALINE 250 ML) 250 ML BOLUS PRN IV Heparin Sodium (HEPARIN) 4,000 UNIT ONCE ONE IV (CAN) Heparin Sodium (Porcine) (Heparin 25,000 Unit/250-1/2 Ns) 250 ML TITRATE IV (CKD) Ketorolac Tromethamine (TORADOL) 15 MG ONCE ONE IV (DC) Aspirin 325 MG DAILY PO (DC) Clopidogrel Bisulfate (PLAVIX) 75 MG DAILY PO (DC) Enoxaparin Sodium (LOVENOX) 30 MG Q12HR SUBQ (DC) Metoprolol Tartrate (LOPRESSOR) 50 MG DAILY PO Diphenhydramine HCl (BENADRYL) 12.5 MG ONCE ONE IV (DC) Prochlorperazine Edisylate (COMPAZINE) 10 MG ONCE ONE IV (DC) Insulin Human NPH (HumuLIN N) 35 UNIT BID MEALS SUBQ Insulin Human Regular (HumuLIN R) 10 UNIT AC SUBQ Ceftriaxone Sodium (ROCEPHIN) 1 GM Q24H IV Sterile Water (STERILE WATER) 10 MLGabapentin (NEURONTIN) 400 MG TID PO (DC) Atorvastatin Calcium (LIPITOR) 40 MG BEDTIME PO (DC) Zolpidem Tartrate (AMBIEN) 10 MG BEDTIME PO Acetaminophen (TYLENOL) 650 MG Q4H PRN PRN PO Acetaminophen (TYLENOL) 650 MG Q6H PRN PRN RECTAL Al Hydrox/Mg Hydrox/Simethicone (MAALOX PLUS) 30 ML Q4H PRN PRN PO Albuterol/Ipratropium (DUONEB 2.5-0.5MG/3ML SOLN) 3 ML RTQ4H PRN PRN NEB Bisacodyl (DULCOLAX) 10 MG DAILY PRN PRN PO Calcium Carbonate (TUMS) 1,000 MG DAILY PRN PRN PO Clonidine HCl (CATAPRES) 0.1 MG Q6H PRN PRN PO Dextrose/Water (DEXTROSE 50%-WATER) 25 ML ASDIR PRN IV (CKD) Glucagon (GLUCAGON) 1 MG ASDIR PRN IM Glucose Polymer (GLUTOSE) 15 GM ASDIR PRN PO Guaifenesin/Dextromethorphan (ROBITUSSIN-DM) 10 ML QID PRN PRN PO Hydralazine HCl (APRESOLINE) 10 MG Q4H PRN PRN IV Hydrocodone Bitart/Acetaminophen (NORCO 5/325 TABLET) 1 TAB Q4H PRN PRN PO Hydrocodone Bitart/Acetaminophen (NORCO 10/325 TABLET) 1 TAB Q4H PRN PRN PO Insulin Human Lispro (HUMALOG) See Admin Criteria ASDIR PRN SUBQ Magnesium Sulfate/Dextrose (MAGNESIUM SULFATE 1GM/D5W 100ML) 100 ML DAILY PRN PRN IV Morphine Sulfate (morphine PF SYRINGE) 2 MG Q4H PRN PRN IV Nitroglycerin (NITROSTAT) 0.4 MG Q5M PRN PRN SL Ondansetron HCl (ZOFRAN) 4 MG Q4H PRN PRN IV Potassium Chloride (K-DUR) 40 MEQ DAILY PRN PRN PO Potassium Phos/Sodium Phos (PHOS-NAK PACKET) 2 PKT DAILY PRN PRN PO (CKD) Senna (SENOKOT) 1 TAB DAILY PRN PRN PO (CKD) Simethicone (MYLICON) 160 MG Q6H PRN PRN PO Sodium Chloride (NORMAL SALINE 250 ML) 250 ML BOLUS PRN IV Trazodone HCl (DESYREL) 50 MG BEDTIME PRN PRN PO Morphine Sulfate (MORPHINE SULFATE) 4 MG X1ED STA IV (DC) Sodium Chloride (SODIUM CHLORIDE 0.9% 1000 ML) 1,000 ML .Q10H IV (DC) Aspirin 325 MG X1ED STA PO (DC) Lactated Ringer's (LACTATED RINGERS) 1,000 ML X1ED STA IV Morphine Sulfate (MORPHINE SULFATE) 4 MG X1ED STA IV (DC) Morphine Sulfate (MORPHINE SULFATE) 4 MG X1ED STA IV (DC) General appearance: altered mental statusCardiovascular: normal heart soundsRespiratory: decreased breath soundsAbdomen: softExtremities: edemaNeuro/RN MATERNITY: alert ResultsFindings/Data:Laboratory Tests: 10/05 10/05 10/05 10/04 0623 0511 0511 2111Chemistry POC Glucose (70 - 119 MG/DL) 146 H 180 H Hemoglobin A1c (4.5 - 5.6 % IS-A1C) 11.2 H Estim Average Glucose (MG/DLest) 275 Triglycerides (0 - 150 MG/DL) 215 H Cholesterol (133 - 200 MG/DL) 144 LDL Cholesterol Measurd (0 - 129 MG/DL) 74 Non-HDL Cholesterol (<130 mg/dL) 117 HDL Cholesterol (40 - 59 MG/DL) 27 L LDL/HDL Ratio (1.48 - 3.22 Avg Ratio) 2.74 Cholesterol/HDL Ratio (0 RATIO) 5.33 Specimen Appearance (1 NORMAL Index/DL) 1 NORMAL <2 MG Specimen Hemolysis (1 NORMAL Index/DL) 1 NORMAL <10 MG 10/04 10/04 10/04 1501 1501 1501 Chemistry Sodium (133 - 144 mmol/L) 130.0 L Potassium (3.5 - 5.1 mmol/L) 3.8 Chloride (95 - 105 mmol/L) 99 Carbon Dioxide (21 - 32 mmol/L) 25 Anion Gap (4.0 - 15.0 GAP calc) 6.0 BUN (7 - 18 MG/DL) 19 H Creatinine (0.55 - 1.30 MG/DL) 0.89 Glomerular Filtr Rate (>60 estGFR) 100 Glucose (70 - 110 MG/DL) 290 H Calcium (8.5 - 10.1 MG/DL) 9.2 Magnesium (1.6 - 2.6 MG/DL) 1.5 L Total Bilirubin (0.00 - 1.00 MG/DL) 0.38 Direct Bilirubin (0.00 - 0.30 MG/DL) 0.11 Indirect Bilirubin (0.2 - 1.3 MG/DL) 0.27 AST (15 - 37 Unit/L) 17 ALT (12 - 78 Unit/L) 38 Total Alk Phosphatase (45 - 117 Unit/L) 88 Troponin I High Sens (0 - 45 ng/L) 24 Total Protein (6.4 - 8.2 G/DL) 8.0 Albumin (3.4 - 5.0 G/DL) 3.0 L Albumin/Globulin Ratio (1.2 - 2.2 RATIO) 0.6 L Specimen Appearance (1 NORMAL Index/DL) 1 NORMAL <2 MG Specimen Hemolysis (1 NORMAL Index/DL) 1 NORMAL <10 MG Hematology WBC (4.1 - 12.1 K/mm3) 11.5 RBC (3.8 - 5.5 M/mm3) 5.43 Hgb (10.6 - 15.8 G/DL) 15.0 Hct (31.8 - 47.4 %) 43.7 MCV (80.1 - 101.1 fL) 80.5 MCH (25.3 - 35.3 pg) 27.6 MCHC (32.7 - 35.1 G/DL) 34.3 RDW (12.2 - 16.4 %) 13.3 Plt Count (155 - 337 K/mm3) 283 MPV (7.6 - 10.4 fL) 9.8 Gran % (37.8 - 82.6 %) 70.9 Lymph % (Auto) (14.1 - 45.4 %) 18.7 Williams % (Auto) (2.5 - 11.7 %) 8.8 Eos % (Auto) (0.0 - 6.2 %) 0.9 Baso % (Auto) (0.0 - 2.6 %) 0.4 Gran # (2.0 - 13.7 k/mm3) 8.13 Lymph # (Auto) (0.6 - 3.8 K/mm3) 2.15 Williams # (Auto) (0.11 - 0.59 K/mm3) 1.01 H Eos # (Auto) (0.0 - 0.4 K/mm3) 0.10 Baso # (Auto) (0.0 - 0.1 K/mm3) 0.05 Immature Gran % (0.0 - 2.0 %) 0.3 Nucleated RBC % (0.0 - 1.0 /100WBC%) 0.0 Nucleated RBCs # (0.00 - 0.05 K/mm3) 0.00 Laboratory Tests 10/04/22 1501:[Embedded Image Not Available] Diagnosis, Assessment PlanProblem List/A P: 1. Diabetes 2. Hyperglycemia 3. Diabetic foot infection 4. CAD (coronary artery disease) 5. 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 CTA. 10/05/2022.Right internal carotid artery stenosis. thrombus at risk for further embolization. Evolving right middle cerebral artery distribution infarct without mass effect.Indeterminate right parotid lesions, for which otolaryngology consultation is recommended. In acute ischemic stroke, when the ischemic penumbra may be at risk of irreversible damage if cerebral blood flow is reduced by lowering the blood pressure. Many Trials trial found no clear benefit for blood pressure lowering within 12 hours of acute ischemic stroke onset, but an adjusted analysis suggested that a goal systolic blood pressure of 161 to 180 mmHg increased the odds of a good outcome compared with higher or lower goal blood pressures -Patient post TPA maintain BP between 161-180 in first 24 hours.-Plan to initiate cardene drip if BP is higher then 180mmHg.-Restart antihypertensive medications during hospitalization for patients with blood pressure >140/90 mmHg who are neurologically stable-Treat hypertension before and during reperfusion therapy for acute ischemic stroke.reperfusion therapy except that blood pressure is >185/110 mmHgLabetalol 10 to 20 mg intravenously over 1 to 2 minutes, may repeat one time; Nicardipine 5 mg/hour intravenously, titrate up by 2.5 mg/hour every 5 to 15 minutes, maximum 15 mg/hour.Antithrombotic therapy with aspirin initiated within 48 hours of stroke onset "Early antithrombotic treatment of acute ischemic stroke and transient ischemic attack limited mobility, we plan to use Lovenox 40 mg daily, or heparin?Prophylaxis for deep venous thrombosis and pulmonary embolism. VTE prophylaxis for select patients within 48 hours of acute ischemic stroke onset who have restricted mobility, TIA can be done through?Antithrombotic therapy at discharge if A fib is present?Lipid lowering with high intensity statin therapy ?Blood pressure reduction after the acute phase of ischemic stroke has passed ?Behavioral and lifestyle changes including smoking cessation, exercise, weight reduction for patients with obesity, and a Mediterranean style diet.-Repeat CT scan in 48 hours. MRI/MRA/MRV (if suspected Venous thrombosis -Neuro checks Q 1 hour. Respiratory Rate, HR, Pulse (dopplers) Core Temprature.Maintain MAP >65mmHg or SBP>90mmHgUse Crystalloids/ NS @30ml/kg to maintain adequate perfusion in sepsis.Circulatory Shock: Fluids,Pressors, prefer Levophed and titrate to keep Sr lactate less then 1mmol/LPlan to Keep CVP between 8-12mHg after CVC placement. PaO2 >60mmhg or ScVo2 >70%if CVC is presentPlan TTE: Evaluate for CO. LVEF, WMA, RVSP, Valve functions and Intracardiac Shunt.Maintain SaO2>90%, Titrate to minimize Kcn7PvD9 <60mmHg DuoNebs with empiric antibiotics with inhaled and systemic steroids in COPD patient with flare.Urine Output : Maintain urine output: 0.5-1.5mL/kg/hrIf Urine Output is decreased <500ml/day or anuria, plan to start IV fluids, UA with cultures, bladder scan, placement of Juan's Catheter. Avoidnephrotoxins, retroperitoneal US, nephrology consult as indicated.CBC, CMP, ABG, and Daily X ray as indicated. Surgical plan.Right carotid endarterectomy next week.Continue the patient on heparinAspirin can be given to the patient. No Plavix.Fall precautionSeizure precautionSpeech speech and swallow evaluationKeep the patient n.p.o. for ICU Core Measures Appropriate Labs/Imaging/Consultations: ReviewedAppropriate Peptic Ulcer Disease Prophylasix: ReviewedAppropriate Deep Venous Thrombosis Prophylasix: ReviewedVentilator Associated Pneumonia Prevention: ReviewedCentral Line,Associated Blood Stream Infection/Indwelling Juan Days: ReviewedAppropriate Sedation: ReviewedNeutritional Evaluation: ReviewedCentral Line-Associated Blood Stream Infection: ReviewedICU LOS/GMLOS: ReviewedAppropriate Plan of Care Discussed with Family Service Assistant TeamSAT/SBT Protocols: Reviewed for the PatientAppropriate Pain Scale By BPS/CPOT: ReviewedRASS, GCS and Delirium Severity Scale: AccessedDiscussion About Transfer/Discharge/Qpo-el-uzsk-care: Reviewed All pertinant labs, Imaging, EKG, telemetry data,and medical records are reviewed by me personally. I have discussed the available findings, initial diagnosis and related differentials with the patient/day care center director including RN. All concerns and questions are answered to the best of my abilities based on theavailable data.I have initiated the plan of care based on preliminary diagnosis,requested appopriate consultations with labs/imagings. Patient/day care center director verbalizes understanding of the plan of care. Plan discussed and agreed with the patient at 1311 RPT #:[id number] OF REPORTHPHistory and physical grfazfllzas0227-91-01Q68:05:00B.[id number] for patient bujdZKTEOBUFWXYAOR3113-40-83G21:11:[address] [facility] 2022-10-05 11:05:00 [id number]+7uKN ozVc vzjyj9i5mfFEVIK7S9+r56sFFIYtm1kx1426-80-46T5 1:05:[id number] [place], [place] [address] PATIENT NAME: BRIGHT SALAZAR ADMIT DATE: 10/04/22ACCOUNT NO: [id number] ROOM NO: [facility] AGE: 57 REPORT TYPE: PROGRESS NOTE SEX: M ADMITTING PHYSICIAN:Kiel Gardiner MD ATTENDING PHYSICIAN:Yung Loomis MD DATE: 10/05/2022 SUBJECTIVE: Mr. Salazar had come in yesterday because of a fall and workup suggested a stroke on the CT. The gentleman does not have any overt evidence ofany weakness in his left upper extremity or left lower extremity. He does have an amputation on the left side, below-knee amputation. The gentleman had been having some headaches and from other history, he is sounding like he has had some issues for the last 3 days or so. On doing further evaluation, it seems like the gentleman had a significant amount of ischemic change around the right MCA territory in the parietal and maybe a part of the occipital area suggesting a recent stroke and workup suggested that the right internal carotid artery nawaf proximal section, just past the common carotid, seems to have a pretty good sized thrombus that may have been the source of this. I have had a detailed discussion with Dr. Dhillon, ____, Dr. Kelvin Singh, common consensus that this patient's stroke is probably more than 2 days old, so the intervention for LVO may not be beneficial, instead we will probably put him on a heparin, get him into the ICU to see whether there is any evolution of this and then in an interval probably proceed with carotid endarterectomy. Dr. Dhillon's opinion is also the same and so is Dr. Warren. They are both going to talk to ____. Initially, there was a plan to transfer this gentleman to [facility], butwith the change in plans now and recommendations, we will probably keep him in our ICU. PHYSICAL EXAMINATION:VITAL SIGNS: As I mentioned above.HEENT: Shows no icterus. No pallor.LUNGS: Relatively clear to auscultation.ABDOMEN: Soft.NEUROLOGIC: He does not have any overt neurologic deficits on bedside examination. I have not done his visual perdue at this point of time. PLAN: Plan would be to give him IV heparin, stop his Plavix and we will see howhe does over the next couple of days, probably early intervention in early part of next week for his carotid endarterectomy. Dictated By: Kiel Fischer MD Date Dictated: 10/05/2022 11:05:00Date Transcribed: 10/05/2022 12:18:32AB/PATEL/BJV/JAMJob #: [id number] PATIENT NAME: BRIGHT SALAZAR Receipt ID: [id number] by Kiel Fischer MD On 10/10/2022 06:12:23 PM at 0612 PATIENT NAME: BRIGHT SALAZAR hokh0751-80-63M38:18:00B.[id number] vailable for patient cexmRRGDUGRTJKIEIZ2929-75-90B69:13:[address] [facility] 2022-10-05 11:04:00 [id number]/[id number] 2CWF 7XZYfHG02JJwXWioBNcurOX/arLXV0n37511-63-49I6 1:04:00 [facility] ([facility])DT PROGRESS NOTEREPORT#:[id number] REPORT STATUS: SignedDATE:10/05/22 TIME: 1104 PATIENT: BRIGHT SALAZAR UNIT #: [id number]#: [id number] ROOM/BED: [id number]: 65 AGE: 57 SEX: M ATTEND: Kiel Gardiner AUTHOR: Kiel Fischer MD * ALL edits or amendments must be made on the electronic/computer document * Progress NoteProgress [id number] at 1107 RPT #:[id number] OF REPORTPRProgress [id number]:04:00B.[id number] Available for patient nqquJNVRKQGQNWNRCJ3277-06-15K43:08:[address] [facility] 2022-10-05 07:48:00 [id number] Maryellen 4LaPVFY4O9NciWVLQ48/kOPliTOxRB0N0642-42-76M4 7:48:00 [facility] ([facility])Neurology Consultation NoteREPORT#:[id number] REPORT STATUS: SignedDATE:10/05/22 TIME: 0748 PATIENT: BRIGHT SALAZAR UNIT #: [id number]#: [id number] ROOM/BED: [id number]: 65 AGE: 57 SEX: M ATTEND: Kiel Gardiner AUTHOR: Kiel Hammond MD * ALL edits or amendments must be made on the electronic/computer document * See AddendumHistory of Present Illness HPIHand dominance: rightRequesting clinician: see consult orderReason for consult:stroke on CTChief complaint:pain in ribs and fallHPI:57-year-old right-handed male with multiple risk factors as has diabetes diagnosed per patient since 2007 poorly controlled, hypertriglyceridemia, hypertension, history of multiple coronary artery disease status post CABG and PCI since 2009, history of peripheral artery disease, history of neuropathy chronic, history of left below the knee amputation last year due to to 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 On further questioningthe patient stated he had a headache for around 4 days prior to admission on theright side of his parietal temporal area that was throbbing, with very poor description of the characteristic but stated it limited his ability to sleep. There is no nausea, vomiting, photophobia or phonophobia with it. The head was not tender to touch. He did not notice the headache gets any better or any bodyposition. The headache was not going away. He did not drive much at home sincethen and reportedly was not feeling very well but was able to mobilize himself. Yesterday morning he woke up and he got onto his scooter and was going to the kitchen to make himself breakfast but fell and hit his rib cage and had pain since. He did not want to go to the hospital initially but then due to the persistence of the pain he decided to come in. Reported imaging obtained after 0 which showed early ischemic changes suspicious for a recent infarct on the right MCA distribution and I was made aware about the patient last night as reported symptoms was more than a day per ER.Patient stated overall it most bother him the most is his rib cage pain and his headache. He stated his headache is around 9/10 in severity. In distress and 1his pain to be improved rather than discussing further about his medical conditions. He stated he does not notice any weakness currently. No reported of numbness per the patient. He only stated he had chronic numbness in his feetfor long time. He did state he might have noticed some dry discharges on the amputation site on his left BKA. The patient stated he still smokes, he denied any illicit drug use. He stated last alcohol drink was June of this year.He stated no dizziness, does not notice any vision changes, no hearing/speech changes, no nausea/vomiting. Worsening rib cage pain when coughing. No right-sided weakness and did not notice left-sided weakness stated only affected by painNo report of measuring his blood pressure at home. Per description pre morbid mRS appear to be 1 is only uses a scooter given his left below the knee amputation and was in the process of getting a prosthetic device for his leg so he can ambulate without a scooter. He does everything on his own and lives by himself and will drive without any issues.On reported statin allergy, he stated he tried every statin that he was told to try but every time he tries it he will have significant joint pain in his legs, knees, hands and he would have to stop it for joint pain to go away. He did nottry ezetimibe before or Vascepa. History - Adult longitudinalAdditional medical history:Diabetes, coronary artery disease hypertension hyperlipidemia coronary artery diseaseAdditional surgical history:Multiple toe amputations, transmetatarsal amputation, CABG w5Jqyovdgbme family history:Family history of diabetes, no bleeding or clotting dyscrasiasSmoking status for patients 13 years old or older: Current every day smokerAllergies:Coded Allergies:Sxukqqx-HKJ-RzZ Reductase Inhibitor (Intermediate, JOINT PAIN 10/04/22) JOINT PAIN Review of Systems Free Text ROS NotesFree Text ROS Notes:ROS as above Objective GeneralVS:Last Documented: Result Date Time Pulse Ox 97 10/05 717 B/P 133/77 10/05 717 B/P Mean 95.5 10/05 717 O2 Delivery Room air 10/05 717 Temp 99.0 10/05 717 Pulse 84 10/05 717 Resp 16 10/05 717 PATIENT WEIGHT: Weight (lb): Weight (oz): Weight (kg): 90.700 MedicationsCurrent Home MedicationsASPIRIN 81 MG PO BID ZOLPIDEM (AMBIEN) 10 MG PO BEDTIME GABAPENTIN (NEURONTIN) 400 MG PO TID METOPROLOL TARTRATE (LOPRESSOR) 50 MG PO DAILY INSULIN NPH HUMAN RECOM (HumuLIN N) 35 UNITS SUBQ BID MEALS INSULIN REGULAR (HumuLIN R) 10 UNITS SUBQ AC CLOPIDOGREL (PLAVIX) 75 MG PO DAILY Active Meds + DC'd Last 24 HrsEzetimibe (ZETIA) 10 MG BEDTIME PO Aspirin 325 MG DAILY PO Clopidogrel Bisulfate (PLAVIX) 75 MG DAILY PO Enoxaparin Sodium (LOVENOX) 30 MG Q12HR SUBQ Metoprolol Tartrate (LOPRESSOR) 50 MG DAILY PO Diphenhydramine HCl (BENADRYL) 12.5 MG ONCE ONE IV (DC) Prochlorperazine Edisylate (COMPAZINE) 10 MG ONCE ONE IV (DC) Insulin Human NPH (HumuLIN N) 35 UNIT BID MEALS SUBQ Insulin Human Regular (HumuLIN R) 10 UNIT AC SUBQ Ceftriaxone Sodium (ROCEPHIN) 1 GM Q24H IV Sterile Water (STERILE WATER) 10 MLGabapentin (NEURONTIN) 400 MG TID PO Atorvastatin Calcium (LIPITOR) 40 MG BEDTIME PO (DC) Zolpidem Tartrate (AMBIEN) 10 MG BEDTIME PO Acetaminophen (TYLENOL) 650 MG Q4H PRN PRN PO Acetaminophen (TYLENOL) 650 MG Q6H PRN PRN RECTAL Al Hydrox/Mg Hydrox/Simethicone (MAALOX PLUS) 30 ML Q4H PRN PRN PO Albuterol/Ipratropium (DUONEB 2.5-0.5MG/3ML SOLN) 3 ML RTQ4H PRN PRN NEB Bisacodyl (DULCOLAX) 10 MG DAILY PRN PRN PO Calcium Carbonate (TUMS) 1,000 MG DAILY PRN PRN PO Clonidine HCl (CATAPRES) 0.1 MG Q6H PRN PRN PO Dextrose/Water (DEXTROSE 50%-WATER) 25 ML ASDIR PRN IV (CKD) Glucagon (GLUCAGON) 1 MG ASDIR PRN IM Glucose Polymer (GLUTOSE) 15 GM ASDIR PRN PO Guaifenesin/Dextromethorphan (ROBITUSSIN-DM) 10 ML QID PRN PRN PO Hydralazine HCl (APRESOLINE) 10 MG Q4H PRN PRN IV Hydrocodone Bitart/Acetaminophen (NORCO 5/325 TABLET) 1 TAB Q4H PRN PRN PO Hydrocodone Bitart/Acetaminophen (NORCO 10/325 TABLET) 1 TAB Q4H PRN PRN PO Insulin Human Lispro (HUMALOG) See Admin Criteria ASDIR PRN SUBQ Magnesium Sulfate/Dextrose (MAGNESIUM SULFATE 1GM/D5W 100ML) 100 ML DAILY PRN PRN IV Morphine Sulfate (morphine PF SYRINGE) 2 MG Q4H PRN PRN IV Nitroglycerin (NITROSTAT) 0.4 MG Q5M PRN PRN SL Ondansetron HCl (ZOFRAN) 4 MG Q4H PRN PRN IV Potassium Chloride (K-DUR) 40 MEQ DAILY PRN PRN PO Potassium Phos/Sodium Phos (PHOS-NAK PACKET) 2 PKT DAILY PRN PRN PO (CKD) Senna (SENOKOT) 1 TAB DAILY PRN PRN PO (CKD) Simethicone (MYLICON) 160 MG Q6H PRN PRN PO Sodium Chloride (NORMAL SALINE 250 ML) 250 ML BOLUS PRN IV Trazodone HCl (DESYREL) 50 MG BEDTIME PRN PRN PO Morphine Sulfate (MORPHINE SULFATE) 4 MG X1ED STA IV (DC) Sodium Chloride (SODIUM CHLORIDE 0.9% 1000 ML) 1,000 ML .Q10H IV (DC) Aspirin 325 MG X1ED STA PO (DC) Lactated Ringer's (LACTATED RINGERS) 1,000 ML X1ED STA IV Morphine Sulfate (MORPHINE SULFATE) 4 MG X1ED STA IV (DC) Morphine Sulfate (MORPHINE SULFATE) 4 MG X1ED STA IV (DC) Provider comments:Exam: General appearance -in distress and appear in painMouth - no bite lo seen HEENT - no tenderness to palpation or massage the head, Normocephalic, atraumatic, No eye redness/ scleral icterusNeck - supple, no tenderness, no limited motion Chest - no tachypnea/dyspnea, retractions or cyanosis Heart - normal rate and regular rhythm Abd: soft, ND. Musculoskeletal -discomfort from the left side of the chest when moving the leftarm or applying resistance to left arm movement.Extremities -surgical scar on the left leg with dried black wound. Neuro: A O to self, place, time, condition/situation.No Gaze preference Visual perdue with left visual field cut.No aphasia or dysarthria. Pupil equal, round and reactive b/l. Eye movement intact b/l. No facial droop. Tongue midline. Movement: 5/5 on the right, left upper extremity 4+/5 with limitation due to pain but with drift, left BKA with leg 4+/5 without a drift.Sensation would confabulate, with areas of decreased sensation/inability to feellight touch on the left including the face with left sensory neglect. No nystagmus, No dysmetria b/l in all 4 exts with limitation due to pain and BKA. DTRs absent bilateral. NIHSS 6 (2 visual field, 1 left upper extremity, 2 sensation, 1 neglect) ResultsFindings/Data:Laboratory Tests 10/05 10/05 10/05 10/04 0623 0511 0511 2111Chemistry POC Glucose (70 - 119 MG/DL) 146 H 180 H Hemoglobin A1c (4.5 - 5.6 % IS-A1C) 11.2 H Estim Average Glucose (MG/DLest) 275 Triglycerides (0 - 150 MG/DL) 215 H Cholesterol (133 - 200 MG/DL) 144 LDL Cholesterol Measurd (0 - 129 MG/DL) 74 Non-HDL Cholesterol (<130 mg/dL) 117 HDL Cholesterol (40 - 59 MG/DL) 27 L LDL/HDL Ratio (1.48 - 3.22 Avg Ratio) 2.74 Cholesterol/HDL Ratio (0 RATIO) 5.33 Specimen Appearance (1 NORMAL Index/DL) 1 NORMAL <2 MG Specimen Hemolysis (1 NORMAL Index/DL) 1 NORMAL <10 MG 10/04 10/04 10/04 1501 1501 1501 Chemistry Sodium (133 - 144 mmol/L) 130.0 L Potassium (3.5 - 5.1 mmol/L) 3.8 Chloride (95 - 105 mmol/L) 99 Carbon Dioxide (21 - 32 mmol/L) 25 Anion Gap (4.0 - 15.0 GAP calc) 6.0 BUN (7 - 18 MG/DL) 19 H Creatinine (0.55 - 1.30 MG/DL) 0.89 Glomerular Filtr Rate (>60 estGFR) 100 Glucose (70 - 110 MG/DL) 290 H Calcium (8.5 - 10.1 MG/DL) 9.2 Magnesium (1.6 - 2.6 MG/DL) 1.5 L Total Bilirubin (0.00 - 1.00 MG/DL) 0.38 Direct Bilirubin (0.00 - 0.30 MG/DL) 0.11 Indirect Bilirubin (0.2 - 1.3 MG/DL) 0.27 AST (15 - 37 Unit/L) 17 ALT (12 - 78 Unit/L) 38 Total Alk Phosphatase (45 - 117 Unit/L) 88 Troponin I High Sens (0 - 45 ng/L) 24 Total Protein (6.4 - 8.2 G/DL) 8.0 Albumin (3.4 - 5.0 G/DL) 3.0 L Albumin/Globulin Ratio (1.2 - 2.2 RATIO) 0.6 L Specimen Appearance (1 NORMAL Index/DL) 1 NORMAL <2 MG Specimen Hemolysis (1 NORMAL Index/DL) 1 NORMAL <10 MG Laboratory Tests 10/04 1501 Hematology WBC (4.1 - 12.1 K/mm3) 11.5 RBC (3.8 - 5.5 M/mm3) 5.43 Hgb (10.6 - 15.8 G/DL) 15.0 Hct (31.8 - 47.4 %) 43.7 MCV (80.1 - 101.1 fL) 80.5 MCH (25.3 - 35.3 pg) 27.6 MCHC (32.7 - 35.1 G/DL) 34.3 RDW (12.2 - 16.4 %) 13.3 Plt Count (155 - 337 K/mm3) 283 MPV (7.6 - 10.4 fL) 9.8 Gran % (37.8 - 82.6 %) 70.9 Lymph % (Auto) (14.1 - 45.4 %) 18.7 Williams % (Auto) (2.5 - 11.7 %) 8.8 Eos % (Auto) (0.0 - 6.2 %) 0.9 Baso % (Auto) (0.0 - 2.6 %) 0.4 Gran # (2.0 - 13.7 k/mm3) 8.13 Lymph # (Auto) (0.6 - 3.8 K/mm3) 2.15 Williams # (Auto) (0.11 - 0.59 K/mm3) 1.01 H Eos # (Auto) (0.0 - 0.4 K/mm3) 0.10 Baso # (Auto) (0.0 - 0.1 K/mm3) 0.05 Immature Gran % (0.0 - 2.0 %) 0.3 Nucleated RBC % (0.0 - 1.0 /100WBC%) 0.0 Nucleated RBCs # (0.00 - 0.05 K/mm3) 0.00 Radiology Data:Recent Impressions:RADIOLOGY - XR CHEST 1 V 10/04 145 Report Impression - Status: SIGNED Entered: 10/04/2022 1459 IMPRESSION: No acute pulmonary process.Impression By: Abebe Díaz M.D.CAT SCAN - CT L-SPINE W/O CONTRAST 10/04 1714 Report Impression - Status: SIGNED Entered: 10/04/20221804 IMPRESSION: 1. No acute traumatic abnormalities of the chest, abdomen, pelvis,thoracic spine, or lumbar spine.2. Chronic findings as above. Impression By: [email or web address] - Ilene Crook, MDCAT SCAN - CT T-SPINE W/O CONTRAST 10/04 1714 Report Impression - Status: SIGNED Entered: 10/04/20221804 IMPRESSION: 1. No acute traumatic abnormalities of the chest, abdomen, pelvis,thoracic spine, or lumbar spine.2. Chronic findings as above. Impression By: [email or web address] - Ilene Fuentesfeld, MDCAT SCAN - CT CHEST W/CONTRAST 10/04 1714 Report Impression - Status: SIGNED Entered: 10/04/20221804 IMPRESSION: 1. No acute traumatic abnormalities of the chest, abdomen, pelvis,thoracic spine, or lumbar spine.2. Chronic findings as above. Impression By: [email or web address] - Ilene Fuentesfeld, MDCAT SCAN - CT ABD PELVIS W/CONT 10/04 1714 Report Impression - Status: SIGNED Entered: 10/04/20221804 IMPRESSION: 1. No acute traumatic abnormalities of the chest, abdomen, pelvis,thoracic spine, or lumbar spine.2. Chronic findings as above. Impression By: [email or web address] - Ilene Crook, MDCAT SCAN - CT C-SPINE W/O CONT 10/04 173 Report Impression - Status: SIGNED Entered: 10/04/2022 175 IMPRESSION: 1. Loss of shaw-white matter differentiation and a large area at theright parietal lobe concerning for cerebral infarction.2. No acute fracture or malalignment of the cervical spine.3. Multilevel degenerative changes of the cervical spine. Findings concerning for cerebral infarction were communicated Jolanta Haro MD by telephone on 10/04/2022 5:49 PM. Impression By: Isidoro Crook [facility] SCAN - CT HEAD/BRAIN W/O CONT 10/04 1732 Report Impression - Status: SIGNED Entered: 10/04/2022 175 IMPRESSION: 1. Loss of shaw-white matter differentiation and a large area at theright parietal lobe concerning for cerebral infarction.2. No acute fracture or malalignment of the cervical spine.3. Multilevel degenerative changes of the cervical spine. Findings concerning for cerebral infarction were communicated Jolanta Haro MD by telephone on 10/04/2022 5:49 PM. Impression By: Isidoro Crook MD Diagnosis, Assessment PlanTime spent: Time spent on patient care (minutes): 70 >50% spent on counseling/coordination of care: yesAdditional comments:Imaging:I have personally reviewed the following images and agree with the formal interpretation with the following edits/additions. CT head without contrast:My independent review:White matter changes.No acute hypo-/hyper density seen.No encephalomalacia / midline shift / hydro present.Prior scans to compare Official report: CT C/T/L-spine without contrastMy independent review:Degenerative joint disease seen overall. No obvious C or T-spine anomaly. L-spine with limited views as limited study done without involvement of the sacralregion. Possible L4-L5 degenerative disc bulging with possible canal stenosis present Official report:Reviewed Free Text DxA P NotesFree text DxA P notes:Ischemic stroke right MCA distribution etiology embolic under investigationHeadache new onset suspect due to aboveMultiple uncontrolled risk factors including hypertension, peripheral artery disease, diabetes A1c 11, coronary artery disease multiple, smokingHypertriglyceridemiaRib cage pain post fallHistory of left BKA due to diabetic footArthralgia as a response to statin treatments in the past Onset of the symptoms possible since Friday as patient did not recognize his deficit even currently, most noticeable symptoms with the fall happened yesterday outpatient coding specialist after waking up. Initially evaluated as a trauma. CTA recommended and will be obtained today as vascular imaging for etiology of the stroke. per description/report appear outside window for acute stroke therapy. -Treatment of the headache will try 1 dose Toradol with Compazine and Benadryl. Patient was aware of potential side effect and agreed to start the medication. stated takes gabapentin only one time at night and agreed to transition to 300 TID pattern for now as stated was too drowsy when started it as TID reportedly was 400 mg. - agreed to try ezetimibe. As did not want to try different statin currently suzette is in pain and is worried that he might get worsening pain. Sometimes pravastatin or rosuvastatin has less effect on causing joint pain. Some report on the use of CQ 10 might help however no official evidence yet available. Trying on Vascepa as an outpatient might be helpful if triglyceride continues haley elevated 3 months after treatment with ezetimibe.-Evaluation for headache depending on improvement of symptoms as appear most likely due to recent stroke.-MRI brain ordered. Echo ordered.-Patient agreed for testing for vitamins along with sexually transmitted diseases along with urine drug screening.-We will do permissive blood pressure for now till vascular imaging obtained. Blood pressure parameters to be adjusted after CTA obtained or after 24-hour post admission. If possible, would avoid hydralazine for the first week post stroke. Other options can be tried such as PRN Labetalol or Enalaprilat, IV drips, Captopril, Nifedipine, or if patient is a good candidate Clonidine.-Patient is aware that he needs to stop smoking. Better diabetes control is needed as A1c is 11. Blood cultures were obtained and might need wound culture given the patient reported symptoms of possible discharges from his left BKA surgical site.- Would continue on telemetry. Review of patient prior telemetry report from prior admission did not show any arrhythmia and patient was not aware of any arrhythmia in the past- Antiplatelet therapy: We will continue aspirin and Plavix as she takes it for his cardiac condition. We will check P2 Y12.-Neuropathy and stroke labs ordered- Q.4 hour neurochecks. This can be changed to Every shift after 72 hours of admission if patient is clinically stable without fluctuation or large vessel occlusion on imaging. - If diabetic, mainly with avoid hypoglycemia. Goal BG <180 overall adequate during inpatient stay.- If no pending for procedure, can start a diet if passes swallow.- Okay with gentle hydration from my end.- SQ Heparin/Lovenox SQ for DVT prophylaxis.- Fall precautions.- PT/OT/ST. For ischemic stroke care outpatient- Stroke risk factor goals as outpatient: A1c <7.0, BP 110-130/<80, BMI less than 24, LDL <70, Triglycerides <135.- Consideration for evaluation of obstructive sleep apnea after ischemic stroke/TIA as an outpatient is generally recommended.- Low threshold to screen for depression/anxiety (screening tools such as PHQ-9,GURJIT or aphasia depression rating scale) are recommended for patients poststroke in the outpatient settings.- Cognitive evaluation as an outpatient (at least within 1 year) is recommended for stroke.- Consideration for metformin is reasonable and ischemic stroke/TIA if the following is met: Prediabetes and <60 years of age or with BMI >34 or women withhistory of gestational diabetes.- For DM management in patient with ischemic stroke as outpatient: Can consider GLP-1 receptor agonist preferably or SGLT-2 inhibitors (preferably Dulaglutide if possible and no concern for potential heart/kidney failure) Please contact me with questions at 0912 Addendum 1: 10/05/22 1131 by Kiel Hammond MD update to plan: CTA reviewed with R distall CCA calcified plaque with appearance of superimposedthrombus possible due to ruptured plaque. discussed with patient risk and benefits and he voiced understanding and agreed with starting medications ( mainconcern for patient was to improve his ribcage pain and headache). will start with heparin low bolus 20 U/kg and Heparin drip per Neuro IR protocol range. transfer to ICU for now for close monitoring w/ planned surgery on early next week ( 3-4 days from now) as stroke onset at least > 1 day from today)Neurochecks Q1 hour. call w/ questions. at 1134 Addendum 2: 10/05/22 1154 by Kiel Hammond MD BP parameters adjusted as will be on heparin drip at 1154 RPT #:[id number] OF [id number]:48:00B. [id number] for patient [id number]:13:[address] [facility] 2022-10-04 23:34:00 [id number] AplX [id number]/l+[id number] 3:34:00 [facility] ([facility] SYSTEMHospitalist History PhysicalREPORT#:[id number] REPORT STATUS: SignedDATE:10/04/22 TIME: 2333 PATIENT: BRIGHT SALAZAR UNIT #: [id number]#: [id number] [facility]DOB: [birth year] AGE: 57 SEX: M ATTEND: Kiel Gardiner AUTHOR: Kiel Gardiner MD * ALL edits or amendments must be made on the electronic/computer document * History of Present Illness HPIChief complaint:FellHeadachesPCP:PCP: No Primary or Family Physician HPI:This is a 57-year-old male with past medical history of diabetes hypertension CABG left BKA he was brought into the ER because he fell from the scooter he wason the scooter when he slipped and fell on the right side later at home he developed pain in the right chest and right side of the abdominal he was complaining of headache since 3 days which she never had it was right-sided throbbing he was also complaining of generalized weakness he also complains of redness in the left stump for which she they were supposed to prescribe an antibiotics denies any nausea vomiting diarrhea abdominal pain hematemesis melena blood in stool asking for more morphine's History Past Medical Surgical HxAdditional medical history:Diabetes, coronary artery disease hypertension hyperlipidemia coronary artery diseaseAdditional surgical history:Multiple toe amputations, transmetatarsal amputation, CABG x4 Family HistoryAdditional family history:Family history of diabetes, no bleeding or clotting dyscrasias Social HistorySmoking status for patients 13 years old or older: Current every day smokerDate last smoked: 10/04/22Additional social history:Pre-hospital services utilized: None Occupation/Profession: Full-time employed Education history: Return to work/school plan: return to work as able Marital status: Never Hobbies/leisure activities: Prior living situation: Home Living with: Alone Medication/Allergy-Vaccine HxMedications:Laboratory Tests: 10/04 10/04 10/04 10/04 2111 1501 1501 1501Chemistry Sodium (133 - 144 mmol/L) 130.0 L Potassium (3.5 - 5.1 mmol/L) 3.8 Chloride (95 - 105 mmol/L) 99 Carbon Dioxide (21 - 32 mmol/L) 25 Anion Gap (4.0 - 15.0 GAP calc) 6.0 BUN (7 - 18 MG/DL) 19 H Creatinine (0.55 - 1.30 MG/DL) 0.89 Glomerular Filtr Rate (>60 estGFR) 100 Glucose (70 - 110 MG/DL) 290 H POC Glucose (70 - 119 MG/DL) 180 H Calcium (8.5 - 10.1 MG/DL) 9.2 Magnesium (1.6 - 2.6 MG/DL) 1.5 L Total Bilirubin (0.00 - 1.00 MG/DL) 0.38 Direct Bilirubin (0.00 - 0.30 MG/DL) 0.11 Indirect Bilirubin (0.2 - 1.3 MG/DL) 0.27 AST (15 - 37 Unit/L) 17 ALT (12 - 78 Unit/L) 38 Total Alk Phosphatase (45 - 117 88Unit/L) Troponin I High Sens (0 - 45 ng/L) 24 Total Protein (6.4 - 8.2 G/DL) 8.0 Albumin (3.4 - 5.0 G/DL) 3.0 L Albumin/Globulin Ratio (1.2 - 2.2 0.6 LRATIO) Specimen Appearance (1 NORMAL 1 NORMAL <2 MGIndex/DL) Specimen Hemolysis (1 NORMAL Index/DL) 1 NORMAL <10 MGHematology WBC (4.1 - 12.1 K/mm3) 11.5 RBC (3.8 - 5.5 M/mm3) 5.43 Hgb (10.6 - 15.8 G/DL) 15.0 Hct (31.8 - 47.4 %) 43.7 MCV (80.1 - 101.1 fL) 80.5 MCH (25.3 - 35.3 pg) 27.6 MCHC (32.7 - 35.1 G/DL) 34.3 RDW (12.2 - 16.4 %) 13.3 Plt Count (155 - 337 K/mm3) 283 MPV (7.6 - 10.4 fL) 9.8 Gran % (37.8 - 82.6 %) 70.9 Lymph % (Auto) (14.1 - 45.4 %) 18.7 Williams % (Auto) (2.5 - 11.7 %) 8.8 Eos % (Auto) (0.0 - 6.2 %) 0.9 Baso % (Auto) (0.0 - 2.6 %) 0.4 Gran # (2.0 - 13.7 k/mm3) 8.13 Lymph # (Auto) (0.6 - 3.8 K/mm3) 2.15 Williams # (Auto) (0.11 - 0.59 K/mm3) 1.01 H Eos # (Auto) (0.0 - 0.4 K/mm3) 0.10 Baso # (Auto) (0.0 - 0.1 K/mm3) 0.05 Immature Gran % (0.0 - 2.0 %) 0.3 Nucleated RBC % (0.0 - 1.0 /100WBC%) 0.0 Nucleated RBCs # (0.00 - 0.05 K/mm3) 0.00 Recent Impressions:RADIOLOGY - XR CHEST 1 V 10/04 1452 Report Impression - Status: SIGNED Entered: 10/04/2022 1459 IMPRESSION: No acute pulmonary process.Impression By: [email or web address] - Griffin Díaz M.D.CAT SCAN - CT L-SPINE W/O CONTRAST 10/04 1714 Report Impression - Status: SIGNED Entered: 10/04/20221804 IMPRESSION: 1. No acute traumatic abnormalities of the chest, abdomen, pelvis,thoracic spine, or lumbar spine.2. Chronic findings as above. Impression By: [email or web address] - Ilene Crook, [facility] SCAN - CT T-SPINE W/O CONTRAST 10/04 1714 Report Impression - Status: SIGNED Entered: 10/04/20221804 IMPRESSION: 1. No acute traumatic abnormalities of the chest, abdomen, pelvis,thoracic spine, or lumbar spine.2. Chronic findings as above. Impression By: Isidoro Crook, MDCAT SCAN - CT CHEST W/CONTRAST 10/04 1714 Report Impression - Status: SIGNED Entered: 10/04/2022 180 IMPRESSION: 1. No acute traumatic abnormalities of the chest, abdomen, pelvis,thoracic spine, or lumbar spine.2. Chronic findings as above. Impression By: Isidoro - Ilene Crook, MDCAT SCAN - CT ABD PELVIS W/CONT 10/04 171 Report Impression - Status: SIGNED Entered: 10/04/2022 180 IMPRESSION: 1. No acute traumatic abnormalities of the chest, abdomen, pelvis,thoracic spine, or lumbar spine.2. Chronic findings as above. Impression By: Isidoro Crook, MDCAT SCAN - CT C-SPINE W/O CONT 10/04 1732 Report Impression - Status: SIGNED Entered: 10/04/2022 175 IMPRESSION: 1. Loss of shaw-white matter differentiation and a large area at theright parietal lobe concerning for cerebral infarction.2. No acute fracture or malalignment of the cervical spine.3. Multilevel degenerative changes of the cervical spine. Findings concerning for cerebral infarction were communicated Jolanta Haro MD by telephone on 10/04/2022 5:49 PM. Impression By: Isidoro Crook, MDCAT SCAN - CT HEAD/BRAIN W/O CONT 10/04 1732 Report Impression - Status: SIGNED Entered: 10/04/2022 175 IMPRESSION: 1. Loss of shaw-white matter differentiation and a large area at theright parietal lobe concerning for cerebral infarction.2. No acute fracture or malalignment of the cervical spine.3. Multilevel degenerative changes of the cervical spine. Findings concerning for cerebral infarction were communicated Jolanta Haro MD by telephone on 10/04/2022 5:49 PM. Impression By: Isidoro Crook MD Active Meds + DC'd Last 24 HrsAspirin 325 MG DAILY PO Clopidogrel Bisulfate (PLAVIX) 75 MG DAILY PO Enoxaparin Sodium (LOVENOX) 30 MG Q12HR SUBQ Metoprolol Tartrate (LOPRESSOR) 50 MG DAILY PO Insulin Human NPH (HumuLIN N) 35 UNIT BID MEALS SUBQ Insulin Human Regular (HumuLIN R) 10 UNIT AC SUBQ Gabapentin (NEURONTIN) 400 MG TID PO Atorvastatin Calcium (LIPITOR) 40 MG BEDTIME PO Zolpidem Tartrate (AMBIEN) 10 MG BEDTIME PO Acetaminophen (TYLENOL) 650 MG Q4H PRN PRN PO Acetaminophen (TYLENOL) 650 MG Q6H PRN PRN RECTAL Al Hydrox/Mg Hydrox/Simethicone (MAALOX PLUS) 30 ML Q4H PRN PRN PO Albuterol/Ipratropium (DUONEB 2.5-0.5MG/3ML SOLN) 3 ML RTQ4H PRN PRN NEB Bisacodyl (DULCOLAX) 10 MG DAILY PRN PRN PO Calcium Carbonate (TUMS) 1,000 MG DAILY PRN PRN PO Clonidine HCl (CATAPRES) 0.1 MG Q6H PRN PRN PO Dextrose/Water (DEXTROSE 50%-WATER) 25 ML ASDIR PRN IV (CKD) Glucagon (GLUCAGON) 1 MG ASDIR PRN IM Glucose Polymer (GLUTOSE) 15 GM ASDIR PRN PO Guaifenesin/Dextromethorphan (ROBITUSSIN-DM) 10 ML QID PRN PRN PO Hydralazine HCl (APRESOLINE) 10 MG Q4H PRN PRN IV Hydrocodone Bitart/Acetaminophen (NORCO 5/325 TABLET) 1 TAB Q4H PRN PRN PO Hydrocodone Bitart/Acetaminophen (NORCO 10/325 TABLET) 1 TAB Q4H PRN PRN PO Insulin Human Lispro (HUMALOG) See Admin Criteria ASDIR PRN SUBQ Magnesium Sulfate/Dextrose (MAGNESIUM SULFATE 1GM/D5W 100ML) 100 ML DAILY PRN PRN IV Morphine Sulfate (morphine PF SYRINGE) 2 MG Q4H PRN PRN IV Nitroglycerin (NITROSTAT) 0.4 MG Q5M PRN PRN SL Ondansetron HCl (ZOFRAN) 4 MG Q4H PRN PRN IV Potassium Chloride (K-DUR) 40 MEQ DAILY PRN PRN PO Potassium Phos/Sodium Phos (PHOS-NAK PACKET) 2 PKT DAILY PRN PRN PO (CKD) Senna (SENOKOT) 1 TAB DAILY PRN PRN PO (CKD) Simethicone (MYLICON) 160 MG Q6H PRN PRN PO Sodium Chloride (NORMAL SALINE 250 ML) 250 ML BOLUS PRN IV Trazodone HCl (DESYREL) 50 MG BEDTIME PRN PRN PO Morphine Sulfate (MORPHINE SULFATE) 4 MG X1ED STA IV (DC) Sodium Chloride (SODIUM CHLORIDE 0.9% 1000 ML) 1,000 ML .Q10H IV Aspirin 325 MG X1ED STA PO (DC) Lactated Ringer's (LACTATED RINGERS) 1,000 ML X1ED STA IV Morphine Sulfate (MORPHINE SULFATE) 4 MG X1ED STA IV (DC) Morphine Sulfate (MORPHINE SULFATE) 4 MG X1ED STA IV (DC) Recent Impressions:RADIOLOGY - XR CHEST 1 V 10/04 1452 Report Impression - Status: SIGNED Entered: 10/04/2022 1459 IMPRESSION: No acute pulmonary process.Impression By: [email or web address] Karen Díaz M.D.CAT SCAN - CT L-SPINE W/O CONTRAST 10/04 1714 Report Impression - Status: SIGNED Entered: 10/04/20221804 IMPRESSION: 1. No acute traumatic abnormalities of the chest, abdomen, pelvis,thoracic spine, or lumbar spine.2. Chronic findings as above. Impression By: Isidoro Crook, [facility] SCAN - CT T-SPINE W/O CONTRAST 10/04 1714 Report Impression - Status: SIGNED Entered: 10/04/20221804 IMPRESSION: 1. No acute traumatic abnormalities of the chest, abdomen, pelvis,thoracic spine, or lumbar spine.2. Chronic findings as above. Impression By: Isidoro - Ilene Crook, [facility] SCAN - CT CHEST W/CONTRAST 10/04 1714 Report Impression - Status: SIGNED Entered: 10/04/20221804 IMPRESSION: 1. No acute traumatic abnormalities of the chest, abdomen, pelvis,thoracic spine, or lumbar spine.2. Chronic findings as above. Impression By: Isidoro Crook, [facility] [place] ABD PELVIS W/CONT 10/04 1715 Report Impression - Status: SIGNED Entered: 10/04/2022 1805 IMPRESSION: 1. No acute traumatic abnormalities of the chest, abdomen, pelvis,thoracic spine, or lumbar spine.2. Chronic findings as above. Impression By: Isidoro Crook, [facility] SC[facility] - CT C-SPINE W/O CONT 10/04 1732 Report Impression - Status: SIGNED Entered: 10/04/2022 175 IMPRESSION: 1. Loss of shaw-white matter differentiation and a large area at theright parietal lobe concerning for cerebral infarction.2. No acute fracture or malalignment of the cervical spine.3. Multilevel degenerative changes of the cervical spine. Findings concerning for cerebral infarction were communicated Jolanta Haro MD by telephone on 10/04/2022 5:49 PM. Impression By: Isidoro Crook, [facility] SC[facility] - CT HEAD/BRAIN W/O CONT 10/04 1732 Report Impression - Status: SIGNED Entered: 10/04/2022 175 IMPRESSION: 1. Loss of shaw-white matter differentiation and a large area at theright parietal lobe concerning for cerebral infarction.2. No acute fracture or malalignment of the cervical spine.3. Multilevel degenerative changes of the cervical spine. Findings concerning for cerebral infarction were communicated Jolanta Haro MD by telephone on 10/04/2022 5:49 PM. Impression By: Isidoro Crook MD Home Medications:ASPIRIN 81 MG PO BID ZOLPIDEM (AMBIEN) 10 MG PO BEDTIME GABAPENTIN (NEURONTIN) 400 MG PO TID METOPROLOL TARTRATE (LOPRESSOR) 50 MG PO DAILY INSULIN NPH HUMAN RECOM (HumuLIN N) 35 UNITS SUBQ BID MEALS INSULIN REGULAR (HumuLIN R) 10 UNITS SUBQ AC CLOPIDOGREL (PLAVIX) 75 MG PO DAILY Allergies:Coded Allergies:Ybtnkri-XUV-LgX Reductase Inhibitor (Intermediate, JOINT PAIN 10/04/22) JOINT PAIN Review of SystemsConstitutional:Reports: generalized weakness. Denies: chills, fatigue, fever, lethargy, malaise, recent wt loss, other. Respiratory:Denies: AZEVEDO (dyspnea on exertion), hemoptysis, non productive cough, parox nocturnal dyspnea, pleurisy, pleuritic pain, pneumonia, productive cough (sputum), SOB, wheezing, other. Cardiovascular:Denies: chest pain, AZEVEDO (dyspnea on exertion), edema, orthopnea, palpitations, parox nocturnal dyspnea, other. GI:Reports: abdominal pain. Neuro:Reports: weakness. OBJECTIVEVS/I O:Vital Signs Date Temp Pulse Resp B/P B/P Mean Pulse Ox FiO2 10/04 36.7-37.0 86-98 16-20 130-158/82-86 98.0-110 99-100 Last Documented: Result Date Time Pulse Ox 99 10/04 2108 B/P 130/82 10/04 2108 B/P Mean 98.0 10/04 2108 Temp 37.0 10/04 2108 Pulse 86 10/04 2108 Resp 16 10/04 2108 O2 Delivery Room air 10/04 1414 Patient Weight and BMI Weight (kg): 90.700 BMI: 27.1 General appearance: awakeCardiovascular: normal heart soundsRespiratory: decreased breath soundsAbdomen: softExtremities: edema, Neuro/RN MATERNITY: alert Diagnosis, Assessment PlanFree Text A P:Subacute CVACVA protocolCore measuresNeurochecksSupportive care Left stump infectionCultures antibioticX-rayWound care Diabetes mellitus with hyperglycemiaHome medicationInsulin sliding scale HypertensionOptimize control DVT prophylaxisLovenoxAdvanced directive discussedMedication reviewed and reconciledI will sign off at 6 AM today further management by incoming thereafter at 2[address] [facility] #:[id number] OF REPORTHPHistory and physical jfoybcttvgh5722-52-35V14:34:00B.[id number] -[id number] for patient pxwbCLMSVNFZENPQAI0558-94-87G30:40:02 [facility] 2022-10-04 17:40:00 [id number] 5lBh +a5FOiVA9VHnBmf3lTNmPGreUyfQlSGp2121-81-02L4 7:40:00 [facility] ([facility])EMERGENCY PROVIDER REPORTREPORT#:[id number] REPORT STATUS: SignedDATE:10/04/22 TIME: 1740 PATIENT: BRIGHT SALAZAR UNIT #: [id number]#: [id number] [facility] 57 SEX: M PCP PHYS: No Primary or Family PhysicianSERVICE AUTHOR: Sandip Haro MD * ALL edits or amendments must be made on the electronic/computer document * HPI-Trauma Minor/Fall Free Text HPI NotesFree Text HPI NotesIs a 57-year-old man with a history of left BKA that comes in today for follow-up. He was on his scooter when he slipped off and fell. He hit his left ribs and upper abdomen on his scooter handlebars. He has been feeling weak all week and has headache as well. He denies neck pain or spinal pain. He denies coughing or wheezing. He has pain with his ribs on deep inspiration though. Denies nausea or vomiting. Denies diarrhea constipation. Denies new any new focal weakness or numbness. On top of the generalized weakness, feels slightly off balance today as well since waking up GeneralInitial Greet Date/Time 10/04/22 1418 PresentationChief Complaint Fall Review of Systems ROS StatementsComplete sys rev neg except as marked. Past Medical History - AdultStated Complaint FALL LEFT SIDE PAINAllergiesCoded Allergies:Zccppla-MHS-MoX Reductase Inhibitor (Intermediate, JOINT PAIN 10/08/22) JOINT PAIN Home MedicationsActive ScriptsINSULIN NPH HUMAN RECOM (HumuLIN N) 35 UNITS SUBQ BID MEALS INSULIN NPH HUMAN RECOM (HumuLIN N) 35 UNITS SUBQ BID MEALS #10 ML Prov: 06/11/22INSULIN REGULAR (HumuLIN R) 10 UNITS SUBQ AC INSULIN REGULAR (HumuLIN R) 10 UNITS SUBQ AC #10 ML Prov: 06/11/22CLOPIDOGREL (PLAVIX) 75 MG PO DAILY CLOPIDOGREL (PLAVIX) 75 MG PO DAILY #30 TAB Prov: 06/11/22 Discontinued ScriptsCLINDAMYCIN HCL (CLEOCIN) 450 MG PO Q8H CLINDAMYCIN HCL (CLEOCIN) 450 MG PO Q8H #63 CAPS Prov: 06/11/22 DC: 10/04/22 210 DC prior to admitCEFDINIR (OMNICEF) 600 MG PO DAILY CEFDINIR (OMNICEF) 600 MG PO DAILY #14 CAPS Prov: 06/11/22 DC: 10/04/22 210 DC prior to admitMETOPROLOL SUCC XL (TOPROL XL) 50 MG PO DAILY METOPROLOL SUCC XL (TOPROL XL) 50 MG PO DAILY #30 TABS Prov: 06/11/22 DC: 10/04/22 210 DC prior to admit Reported MedicationsASPIRIN 81 MG PO BID ZOLPIDEM (AMBIEN) 10 MG PO BEDTIME GABAPENTIN (NEURONTIN) 400 MG PO TID METOPROLOL TARTRATE (LOPRESSOR) 50 MG PO DAILY Additional Medical HistoryDiabetes, coronary artery diseaseAdditional Surgical HistoryMultiple toe amputations, transmetatarsal amputation, CABG s4Pefmivehhu Family HistoryFamily history of diabetes, no bleeding or clotting dyscrasiasSmoking status for patients 13 years old or older: Unknown,if ever smokedAdditional Social HistoryPre-hospital services utilized: None Occupation/Profession: Full-time employed Education history: Return to work/school plan: return to work as able Marital status: Never Hobbies/leisure activities: Prior living situation: Home Living with: Alone Physical Exam Vital SignsVital SignsFirst Documented: Result Date Time Pulse Ox 100 10/04 1414 B/P 139/82 10/04 1414 B/P Mean 101 10/04 1414 O2 Delivery Room air 10/04 141 Temp 98.0 10/04 1414 Pulse 98 10/04 1414 Resp 20 10/04 141 Last Documented: Result Date Time Pulse Ox 100 10/04 1414 B/P 139/82 10/04 1414 B/P Mean 101 10/04 1414 O2 Delivery Room air 10/04 1414 Temp 98.0 10/04 1414 Pulse 98 10/04 1414 Resp 20 10/04 1414 Review of Vital Signs Reviewed Basic Physical ExamBasic PE EYES: PERRL, conj clear, ENT: Membranes moist, RESP: No resp distress, CV: Reg rate rhythm, EXT: No gross abnormality, SKIN: No rashes, warm/dry, NEURO: alert oriented, NEURO: gross movement NL, PSYCH: NL thought content Focused PEGeneral/Const General/Const Awake, Alert, No acute distressMS Head Head Atraumatic, NormocephalicMS Neck Neck Supple, No meningismusResp/Chest Text/Dict NotesLeft lateral rib tenderness without crepitusAbdomen/GI Abdomen/GI Soft, No guarding, No rebound Text/Dict NotesLeft upper quadrant tenderness and left lateral abdominal tenderness.Neurologic Neurologic Oriented X3, Speech NL, No motor deficits, No sensory deficits Interpretation Diagnostics Lab Results InterpretationResultsLaboratory Tests 10/04/22 1501:[Embedded Image Not Available]Laboratory Tests: 10/04 10/04 10/04 1501 1501 1501 Chemistry Sodium (133 - 144 mmol/L) 130.0 L Potassium (3.5 - 5.1 mmol/L) 3.8 Chloride (95 - 105 mmol/L) 99 Carbon Dioxide (21 - 32 mmol/L) 25 Anion Gap (4.0 - 15.0 GAP calc) 6.0 BUN (7 - 18 MG/DL) 19 H Creatinine (0.55 - 1.30 MG/DL) 0.89 Glomerular Filtr Rate (>60 estGFR) 100 Glucose (70 - 110 MG/DL) 290 H Calcium (8.5 - 10.1 MG/DL) 9.2 Magnesium (1.6 - 2.6 MG/DL) 1.5 L Total Bilirubin (0.00 - 1.00 MG/DL) 0.38 Direct Bilirubin (0.00 - 0.30 MG/DL) 0.11 Indirect Bilirubin (0.2 - 1.3 MG/DL) 0.27 AST (15 - 37 Unit/L) 17 ALT (12 - 78 Unit/L) 38 Total Alk Phosphatase (45 - 117 Unit/L) 88 Troponin I High Sens (0 - 45 ng/L) 24 Total Protein (6.4 - 8.2 G/DL) 8.0 Albumin (3.4 - 5.0 G/DL) 3.0 L Albumin/Globulin Ratio (1.2 - 2.2 RATIO) 0.6 L Specimen Appearance (1 NORMAL Index/DL) 1 NORMAL <2 MG Specimen Hemolysis (1 NORMAL Index/DL) 1 NORMAL <10 MG Hematology WBC (4.1 - 12.1 K/mm3) 11.5 RBC (3.8 - 5.5 M/mm3) 5.43 Hgb (10.6 - 15.8 G/DL) 15.0 Hct (31.8 - 47.4 %) 43.7 MCV (80.1 - 101.1 fL) 80.5 MCH (25.3 - 35.3 pg) 27.6 MCHC (32.7 - 35.1 G/DL) 34.3 RDW (12.2 - 16.4 %) 13.3 Plt Count (155 - 337 K/mm3) 283 MPV (7.6 - 10.4 fL) 9.8 Gran % (37.8 - 82.6 %) 70.9 Lymph % (Auto) (14.1 - 45.4 %) 18.7 Williams % (Auto) (2.5 - 11.7 %) 8.8 Eos % (Auto) (0.0 - 6.2 %) 0.9 Baso % (Auto) (0.0 - 2.6 %) 0.4 Gran # (2.0 - 13.7 k/mm3) 8.13 Lymph # (Auto) (0.6 - 3.8 K/mm3) 2.15 Williams # (Auto) (0.11 - 0.59 K/mm3) 1.01 H Eos # (Auto) (0.0 - 0.4 K/mm3) 0.10 Baso # (Auto) (0.0 - 0.1 K/mm3) 0.05 Immature Gran % (0.0 - 2.0 %) 0.3 Nucleated RBC % (0.0 - 1.0 /100WBC%) 0.0 Nucleated RBCs # (0.00 - 0.05 K/mm3) 0.00 Microbiology: Date/Time Procedure - Status Source Growth 10/05 11 Blood Culture - COMP BLOOD 10/05 11 Blood Culture - COMP BLOOD 10/05 11 Blood Culture - COMP BLOOD 10/05 11 Blood Culture - COMP BLOOD Recent Impressions:RADIOLOGY - XR TIBIA/FIBULA 2 V LT 10/04 0400 Report Impression - Status: SIGNED Entered: 10/05/2022 3290 IMPRESSION: Soft tissue swelling minimal subcutaneous air, no acute bonyirregularity.Impression By: [email or web address] - Jose Tang, MDRADIOLOGY - XR CHEST 1 V 10/04 1452 Report Impression - Status: SIGNED Entered: 10/04/2022 1459 IMPRESSION: No acute pulmonary process.Impression By: CriseldaRK5 Karen Díaz M.D.CAT SCAN - CT L-SPINE W/O CONTRAST 10/04 1714 Report Impression - Status: SIGNED Entered: 10/04/2022 180 IMPRESSION: 1. No acute traumatic abnormalities of the chest, abdomen, pelvis,thoracic spine, or lumbar spine.2. Chronic findings as above. Impression By: [email or web address] - Ilene Fuentesfeld, MDCAT SCAN - CT T-SPINE W/O CONTRAST 10/04 1714 Report Impression - Status: SIGNED Entered: 10/04/2022 180 IMPRESSION: 1. No acute traumatic abnormalities of the chest, abdomen, pelvis,thoracic spine, or lumbar spine.2. Chronic findings as above. Impression By: [email or web address] - Ilene Fuentesfeld, MDCAT SCAN - CT CHEST W/CONTRAST 10/04 1714 Report Impression - Status: SIGNED Entered: 10/04/2022 180 IMPRESSION: 1. No acute traumatic abnormalities of the chest, abdomen, pelvis,thoracic spine, or lumbar spine.2. Chronic findings as above. Impression By: [email or web address] - Ilene Fuentesfeld, MDCAT SCAN - CT ABD PELVIS W/CONT 10/04 171 Report Impression - Status: SIGNED Entered: 10/04/2022 1805 IMPRESSION: 1. No acute traumatic abnormalities of the chest, abdomen, pelvis,thoracic spine, or lumbar spine.2. Chronic findings as above. Impression By: [email or web address] - Ilene Fuentesfeld, MDCAT SCAN - CT C-SPINE W/O CONT 10/04 1733 Report Impression - Status: SIGNED Entered: 10/04/2022 1752 IMPRESSION: 1. Loss of shaw-white matter differentiation and a large area at theright parietal lobe concerning for cerebral infarction.2. No acute fracture or malalignment of the cervical spine.3. Multilevel degenerative changes of the cervical spine. Findings concerning for cerebral infarction were communicated Jolanta Haro MD by telephone on 10/04/2022 5:49 PM. Impression By: Isidoro Crook [facility] HEAD/BRAIN W/O CONT 10/04 1733 Report Impression - Status: SIGNED Entered: 10/04/2022 175 IMPRESSION: 1. Loss of shaw-white matter differentiation and a large area at theright parietal lobe concerning for cerebral infarction.2. No acute fracture or malalignment of the cervical spine.3. Multilevel degenerative changes of the cervical spine. Findings concerning for cerebral infarction were communicated Jolanta Haro MD by telephone on 10/04/2022 5:49 PM. Impression By: Isidoro Crook MD Re-Evaluation MDM Free Text MDM NotesFree Text MDM NotesMedical records show that patient last received a tetanus on April 26, 2022.Additional TextMEDICAL DECISION MAKINGNumber and Complexity of ProblemsDifferential Diagnosis: Rib fracture. Rib contusion. Pneumothorax. Splenic laceration. Renal laceration. Peritoneal bleed. Head injury. ICH. Concussion. Stroke. CVA. MDM DataExternal documents reviewed: My EKG interpretation: see interpretation sectionMy CT interpretation: My X-ray interpretation:My Ultrasound interpretation:Labs reviewed by me are significant for: Decision rules/scores evaluated: Discussed with: Patient. Hospitalist. NeurologistIf discharged, considered admission for:Reviewed Social Determinants of Health Treatment and DispositionED Course/Shared decision making: Patient primarily presents for pain to the ribs from the fall and the headache that is been going on all week. The headache was paired with generalized weakness and dizziness as well. Patient has a history of a BKA. During the evaluation of trauma, subacute stroke already seen on CT. Examined the patient. NIH stroke scale for 1 for left hand weakness @ 10/04/2022 6:00PM. Patient not a thrombolytic candidate or ELVO candidate as unclear onset of symptoms time. Could have been greater than 24 hours, particularly as can already see the stroke on CT. Discussed this with Dr. Kiel Hammond. ED CourseMedication(s) OrderedMedication(s) Ordered:Electrolytic, Caloric, And Aniket Sig/Ekta Start time Last Medication Dose Route Stop Time Status Admin Lactated Ringer's 1,000 ML X1ED STA 10/04 1643 AC 10/04 IV 11/15 0842 1656 ConsultationConsultation Referral/Consult Name Kiel Hammond MD Or First Assist Registered Nurse Called Neurology Requested Call Time 1812 Requested Call Date 10/04/22 Free Text Consult Notesaspirin, requests CTa head and neck for tomorrow.Discussed current physical exam as I re-examined before the call and after the CT head findings. Subtle weakness in the left arm. NIHSS 1. Patient Discharge Departure Vital Signs/ConditionVital SignsFirst Documented: Result Date Time Pulse Ox 100 10/04 1414 B/P 139/82 10/04 1414 B/P Mean 101 10/04 1414 O2 Delivery Room air 10/04 1414 Temp 98.0 10/04 1414 Pulse 98 10/04 1414 Resp 20 10/04 1414 Last Documented: Result Date Time Pulse Ox 100 10/04 1414 B/P 139/82 10/04 1414 B/P Mean 101 10/04 1414 O2 Delivery Room air 10/04 1414 Temp 98.0 10/04 1414 Pulse 98 10/04 1414 Resp 20 10/04 1414 All vital signs available at the time of this entry have been reviewed. Clinical ImpressionClinical ImpressionPrimary Impression: StrokeSecondary Impressions: Contusion of rib, Headache Disposition DecisionAdmit Admit Physician Name Kiel Gardiner MD )( Admission Accepts Yes )( Accepted Time 1812 )( Accepted Date 10/04/22 Critical CareTime Spent (minutes): 32Services Performed Patient management by me, Time spent at bedside, Reviewing test results, Reviewing imaging, Discussing patient care, Documentation in recordSeparately billable procedures excluded from time. at 1830RPT #:[id number] OF REPORTEDEmergency department nqgbrg0972-27-67D07:40:00B.[id number] AVAvailable for patient agdqTKZJXTEGECZTQH0892-72-47X38:30:[address] [facility] 2022 19:49:00 [id number]/8ypEITvVdt5IJDypG lVoD zx71jtTNETjOEKkV5Tn/eZ9jRCifRhY82799-02-30B1 9:49:332098-[address] [place], [place] [address] PATIENT NAME: BRIGHT SALAZAR ADMIT DATE: 06/07/22ACCOUNT NO: [id number] ROOM NO: B.113 AGE: 57 REPORT TYPE: PROGRESS NOTE SEX: M ADMITTING PHYSICIAN:Kiel Fischer MD ATTENDING PHYSICIAN:Kiel Fischer MD DATE: SUBJECTIVE: The patient looks fairly comfortable, pain in the left leg stump iscontrolled. Wound continues to improve. Undergoing daily dressing changes. OBJECTIVE:VITAL SIGNS: Overnight, no fevers. Heart rate is in the 70s to 80s, respirations 14, blood pressure is 127/85.HEENT: Head atraumatic.NECK: Supple.CHEST: Has good air entry on both sides.CARDIOVASCULAR: S1, S2. No murmurs, rubs, or gallops.ABDOMEN: Soft, no organ enlargement. Regular bowel sounds heard.EXTREMITIES: Left leg stump shows improvement of the swelling and the redness. There is no active drainage. The incision site is intact. LABORATORY DATA: Pertinent for slightly elevated blood sugars. Vancomycin trough last checked was at target. IMPRESSION AND PLAN: A 57-year-old man presented with infected left leg stump, previously had a below knee amputation. Failed outpatient Bactrim therapy. IV antibiotics discontinued. The patient haley discharged on clindamycin 450 mg t.i.d. and cefdinir 600 mg orally daily for 6 more days. Daily examination of the wound is necessary. Avoid falls. Outpatient followup with orthopedic service. The patient is aware of this plans, discharge planning is in progress, discussedwith primary care. Dictated By: Quynh Delgado MD Date Dictated: 2022 19:49:20Date Transcribed: 2022 20:00:38AD/Jhonny #: [id number]. PATIENT NAME: BRIGHT SALAZAR Receipt ID: [id number] by Quynh Delgado MD On 07/08/2022 11:33:45 AM at 1133 PATIENT NAME: BRIGHT SALAZAR [id number]:00:00B.[id number] vailable for patient [id number]:34:24 [facility] 2022 10:13:00 [id number] Shi4 bdtqQGEnZgbUDdOwhQLp0sCkGabwxkI53136-38-88H1 0:13:00 [facility] ([facility])Hospitalist Progress NoteREPORT#:[id number] REPORT STATUS: SignedDATE:06/11/22 TIME: 101 PATIENT: BRIGHT SALAZAR UNIT #: [id number]#: [id number] [facility] AGE: 57 SEX: M ATTEND: Kiel Fischer [facility] AUTHOR: Moises Skinner MD * ALL edits or amendments must be made on the electronic/computer document * SubjectiveChief complaint:Left stump infection awaiting ID clearance for dc Objective GeneralVS/I O:Vital Signs: Date Time Temp Pulse Resp B/P B/P Pulse O2 O2 Flow FiO2 Mean Ox Delivery Rate 06/11 1144 98.6 74 18 133/81 98.6 97 Room air 06/11 0828 98.8 84 18 123/77 92.2 98 Room air 06/11 0504 98.4 79 14 127/85 99.3 95 Room air 06/11 0245 97 Room air 06/11 0030 98.4 75 14 130/79 96.0 96 Room air 06/10 2102 98.6 82 14 152/76 101.3 97 Room air 06/10 1800 97.5 81 18 145/79 100.9 96 Room air PATIENT WEIGHT: Weight (lb): Weight (oz): Weight (kg): 90.909 Medications:Active Meds + DC'd Last 24 HrsInsulin Human NPH (HumuLIN N) 35 UNIT BID AC SUBQ Vancomycin HCl (Vancomycin HCl) 1.25 GM Q8HR IV Sodium Chloride (NORMAL SALINE 250 ML) 250 MLNeomycin/Polymyxin/Bacitracin (Triple Antibiotic Ointment) 1 APPLIC DAILY TOPICAL Insulin Human Lispro (HUMALOG) 10 UNIT C MEALS SUBQ Aspirin (ASPIRIN) 81 MG BID PO Clopidogrel Bisulfate (PLAVIX) 75 MG DAILY PO Miscellaneous Information (VANCOMYCIN PHARMACY TO DOSE) 1 EACH ASDIR IV (CKD) Ceftriaxone Sodium (ROCEPHIN) 1 GM Q24H IV Sterile Water (STERILE WATER) 10 MLGabapentin (NEURONTIN) 400 MG TID PO Metoprolol Tartrate (LOPRESSOR) 50 MG DAILY PO Zolpidem Tartrate (AMBIEN) 10 MG BEDTIME PO Enoxaparin Sodium (LOVENOX) 40 MG Q24H SUBQ Acetaminophen (TYLENOL) 650 MG Q4H PRN PRN PO Acetaminophen (TYLENOL) 650 MG Q6H PRN PRN RECTAL Al Hydrox/Mg Hydrox/Simethicone (MAALOX PLUS) 30 ML Q4H PRN PRN PO Calcium Carbonate (TUMS) 1,000 MG DAILY PRN PRN PO Clonidine HCl (CATAPRES) 0.1 MG Q6H PRN PRN PO Dextrose/Water (DEXTROSE 50%-WATER) 25 ML ASDIR PRN IV (CKD) Glucagon (GLUCAGON) 1 MG ASDIR PRN IM Glucose Polymer (GLUTOSE) 15 GM ASDIR PRN PO Guaifenesin/Dextromethorphan (ROBITUSSIN-DM) 10 ML QID PRN PRN PO Hydrocodone Bitart/Acetaminophen (NORCO 5/325 TABLET) 1 TAB Q4H PRN PRN PO Hydrocodone Bitart/Acetaminophen (NORCO 10/325 TABLET) 1 TAB Q4H PRN PRN PO Insulin Human Lispro (HUMALOG) See Admin Criteria ASDIR PRN SUBQ Magnesium Sulfate/Dextrose (MAGNESIUM SULFATE 1GM/D5W 100ML) 100 ML DAILY PRN PRN IV (CKD) Ondansetron HCl (ZOFRAN) 4 MG Q4H PRN PRN IV Potassium Chloride (K-DUR) 40 MEQ DAILY PRN PRN PO Potassium Phos/Sodium Phos (PHOS-NAK PACKET) 2 PKT DAILY PRN PRN PO (CKD) Senna (SENOKOT) 1 TAB DAILY PRN PRN PO (CKD) Simethicone (MYLICON) 160 MG Q6H PRN PRN PO Trazodone HCl (DESYREL) 50 MG BEDTIME PRN PRN PO Influenza Virus Vaccine (FLUZONE QUAD SYRINGE) 60 MCG ASDIR IM (DC) Free Text Obj NotesFree Text Obj Notes:GENERAL: NADHEENT: PERRLACV: RRR, NO RUBS OR GALLOPS, NORMAL S1,S2RESP: CTABGI: BS X 4 QUADRANTS, NON DISTENDEDGU: DEFERREDMSK: Left BKA heavily wrappedNEURO: A OX 4SKIN: NO E/O BREAKDOWN OR RASHES Diagnosis, Assessment Plan Free Text DxA P NotesFree text DxA P notes:#) Left BKA infection-IV antibiotics-ID consult #) DM type II-SSI #) Hyponatremia-We will replace #) CAD-Stable continue meds #) Left stump pain-Pain management Lovenox for DVT prophylaxis Dispo: dc on po abx when cleared by ID at 1336 RPT #:[id number] OF REPORTPRProgress [id number]:13:00B.[id number] Available for patient rxzmSXOXLSVXMVHDYN6568-04-33L06:36:[address] [facility] 2022 09:27:00 [id number] 7YUC NIvPBIt40HiXgw1e1Zi3W/1qj3an97Ph0896-06-85V3 9:27:00 [facility] ([facility])Hospitalist Discharge SummaryREPORT#:[id number] REPORT STATUS: SignedDATE:06/11/22 TIME: 926 PATIENT: BRIGHT SALAZAR UNIT #: [id number]#: [id number] [facility]WD[facility] [birth year] AGE: 57 SEX: M ATTEND: Kiel Fischer AUTHOR: Moises Skinner MD * ALL edits or amendments must be made on the electronic/computer document * General InformationDischarge date: 06/11/22Discharge diagnosis:BKA infectionHospital course:The patient is a 56-year-old man who has a history of diabetes, coronary artery disease, PAD, stroke, previous CABG, first presented to the hospital with left foot pain and swelling, which started in 07/2020. 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 On 05/01, he underwent irrigation and debridement of the left below-knee amputation stump with delayed primary wound closure. The wound cultures from the left foot were positive for Enterobacter,Enterococcus species as well as Proteus vulgaris. The patient completed treatment duration with IV meropenem. He was discharged home on 05/10. He fell while at home and sustained trauma onhis surgical site. The patient has been following with Dr. Herman, orthopedic service. He wasstarted on Bactrim, which he took for about a couple of weeks. The patient notedsome yellowish drainage from the surgical wound, which seemingly has slowed downin the last several days. However, he was there because of inadequate healing of the wound. The patient was advised foradmission to the hospital. An x-ray of the left tibia-fibula showed soft tissue swelling. ID consultation requested for further adjustment of his antibiotics. He was cleared for DC on clindamycin and cefdinir. Free Text DxA P NotesFree text DxA P notes:#) Left BKA infection-IV antibiotics-ID consult #) DM type II-SSI #) Hyponatremia-We will replace #) CAD-Stable continue meds #) Left stump pain-Pain management Lovenox for DVT prophylaxis Dispo: dc on po abx when cleared by ID Med Rec Med RecDischarge meds:Stop taking the following medications:INSULIN NPH HUMAN RECOM (HumuLIN N) 100 UNIT/ML VIAL 20 UNITS SUBCUTANEOUS TWICE DAILY BEFORE MEALS. Days = 30 Continue taking these medications:ASPIRIN (ASPIRIN) 81 MG TAB.CHEW 81 MILLIGRAM ORAL TWICE DAILY. ZOLPIDEM (AMBIEN) 10 MG TAB 10 MILLIGRAM ORAL BEDTIME. GABAPENTIN (NEURONTIN) 400 MG CAP 400 MILLIGRAM ORAL THREE TIMES A DAY. METOPROLOL TARTRATE (LOPRESSOR) 50 MG TAB 50 MILLIGRAM ORAL DAILY. CLOPIDOGREL (PLAVIX) 75 MG TAB 75 MILLIGRAM ORAL DAILY. Qty = 30 This prescription has been renewed Start taking the following new medications:INSULIN NPH HUMAN RECOM (HumuLIN N) 100 UNIT/ML VIAL 35 UNITS SUBCUTANEOUS TWICE DAILY WITH MEALS. Qty = 10 No Refills INSULIN REGULAR (HumuLIN R) 100 UNIT/ML VIAL 10 UNITS SUBCUTANEOUS BEFORE MEALS. Qty = 10 No Refills CLINDAMYCIN HCL (CLEOCIN) 150 MG CAP 450 MILLIGRAM ORAL EVERY 8 HOURS. Qty = 63 No Refills CEFDINIR (OMNICEF) 300 MG CAP 600 MILLIGRAM ORAL DAILY. Qty = 14 No Refills METOPROLOL SUCC XL (TOPROL XL) 50 MG TAB.SA 50 MILLIGRAM ORAL DAILY. Qty = 30 No Refills Objective Free Text Obj NotesFree Text Obj Notes:GENERAL: NADHEENT: PERRLACV: RRR, NO RUBS OR GALLOPS, NORMAL S1,S2RESP: CTABGI: BS X 4 QUADRANTS, NON DISTENDEDGU: DEFERREDMSK: Left BKA heavily wrappedNEURO: A OX 4SKIN: NO E/O BREAKDOWN OR RASHES Discharge Instructions PCPDischarge to: Home/Self CareAdditional Discharge Routines: PCP Follow-UpDiet: Cardiac Follow-up AppointmentsPCP follow-up: PCP: No Primary or Family Physician PCP follow up timeframe: In 1-2 weeks at 0935 RPT #:[id number] OF REPORTDSDischarge nrslbml1763-05-54M65:27:00B.[id number] 8AVAvailable for patient tyfcDMKZTGKSJMQJPY2718-29-43I68:35:[address] [facility] 2022-06-10 15:19:00 [id number]T/ei VDQ7 9g05Z2lwPFa193y96czlIWyE1SZpUl2h9825-20-92Y2 5:19:00 [facility] Prog.Note-VancomycinREPORT#:[id number] REPORT STATUS: SignedDATE:06/10/22 TIME: 1519 PATIENT: JOSÉBRIGHT UNIT #: [id number]#: [id number] [address] AGE: 56 SEX: M ATTEND: Kiel Fischer [facility] AUTHOR: Shalonda Kenny RPh * ALL edits or amendments must be made on the electronic/computer document * See AddendumVancomycin Vancomycin Medication TherapyGoal: trough 15-20 mcg/mLIndication for treatment:Post BKA infectionCurrent therapy:Medication(s) Ordered:Anti-Infective Agents Sig/Ekta Start time Last Medication Dose Route Stop Time Status Admin Vancomycin HCl 1.25 GM Q8HR 06/09 1400 AC 06/10 Sodium Chloride 250 ML IV 06/14 2058 1458 Ceftriaxone Sodium 1 GM Q24H 06/07 1615 AC 06/09 Sterile Water 10 ML IV 06/14 1614 1645 Weight: Actual weight (kg): 90.9Labs:Laboratory Tests: 06/10 1433 Toxicology Vancomycin Trough (10 - 20 mcG/ML) 14.9 Laboratory Test : 06/10 0408 Chemistry BUN (7 - 18 MG/DL) 14 Creatinine (0.55 - 1.30 MG/DL) 0.56 Hematology WBC (4.1 - 12.1 K/mm3) 6.4 Treatment plan: consult, cont current regimen/doseFollow up: Lab:No new labRationale:A/P* Pt is a 56 YO M with infection post leg stump post BKA* 1/2 @ 1433 vt=14.9, drawn 1hr late, but close to goal* Will continue vancomycin 1g IV q8 * No new level as consult ends on 06/14 , please schedule one if consult is extended at 1521 Addendum 1: 06/10/22 1523 by Shalonda Kenny RPh Pt is on vancomycin 1.25g IV q8 and will continue current dosing at 1523 RPT #:[id number] OF REPORTPRProgress paar7425-74-48T06:19:00B.[id number] Available for patient yprrFERYHBRQHAFVYY8613-68-51K60:22:[address] [facility] 2022-06-10 08:50:00 [id number]OGL/ FP2V 5Vv+0MPW3FIPsjXvOAQBALCqIU5vINJy2775-27-75F1 8:50:00 [facility] ([facility])Hospitalist Progress NoteREPORT#:[id number] REPORT STATUS: SignedDATE:06/10/22 TIME: 0850 PATIENT: BRIGHT SALAZAR UNIT #: [id number]#: [id number] [facility] AGE: 57 SEX: M ATTEND: Kiel Fischer [facility] AUTHOR: Moises Skinner MD * ALL edits or amendments must be made on the electronic/computer document * SubjectiveChief complaint:Left stump infectionawaiting ID clearance for dc Objective GeneralVS/I O:Vital Signs: Date Time Temp Pulse Resp B/P B/P Pulse O2 O2 Flow FiO2 Mean Ox Delivery Rate 06/11 0828 98.8 84 18 123/77 92.2 98 Room air 06/11 0504 98.4 79 14 127/85 99.3 95 Room air 06/11 0245 97 Room air 06/11 0030 98.4 75 14 130/79 96.0 96 Room air 06/10 2102 98.6 82 14 152/76 101.3 97 Room air 06/10 1800 97.5 81 18 145/79 100.9 96 Room air 06/10 1109 97.3 79 18 152/78 102.9 95 Room air 06/10 0944 97 Room air PATIENT WEIGHT: Weight (lb): Weight (oz): Weight (kg): 90.909 Medications:Active Meds + DC'd Last 24 HrsInsulin Human NPH (HumuLIN N) 35 UNIT BID AC SUBQ Insulin Human NPH (HumuLIN N) 30 UNIT BID AC SUBQ (DC) Vancomycin HCl (Vancomycin HCl) 1.25 GM Q8HR IV Sodium Chloride (NORMAL SALINE 250 ML) 250 MLNeomycin/Polymyxin/Bacitracin (Triple Antibiotic Ointment) 1 APPLIC DAILY TOPICAL Insulin Human Lispro (HUMALOG) 10 UNIT C MEALS SUBQ Aspirin (ASPIRIN) 81 MG BID PO Clopidogrel Bisulfate (PLAVIX) 75 MG DAILY PO Miscellaneous Information (VANCOMYCIN PHARMACY TO DOSE) 1 EACH ASDIR IV (CKD) Ceftriaxone Sodium (ROCEPHIN) 1 GM Q24H IV Sterile Water (STERILE WATER) 10 MLGabapentin (NEURONTIN) 400 MG TID PO Metoprolol Tartrate (LOPRESSOR) 50 MG DAILY PO Zolpidem Tartrate (AMBIEN) 10 MG BEDTIME PO Enoxaparin Sodium (LOVENOX) 40 MG Q24H SUBQ Acetaminophen (TYLENOL) 650 MG Q4H PRN PRN PO Acetaminophen (TYLENOL) 650 MG Q6H PRN PRN RECTAL Al Hydrox/Mg Hydrox/Simethicone (MAALOX PLUS) 30 ML Q4H PRN PRN PO Calcium Carbonate (TUMS) 1,000 MG DAILY PRN PRN PO Clonidine HCl (CATAPRES) 0.1 MG Q6H PRN PRN PO Dextrose/Water (DEXTROSE 50%-WATER) 25 ML ASDIR PRN IV (CKD) Glucagon (GLUCAGON) 1 MG ASDIR PRN IM Glucose Polymer (GLUTOSE) 15 GM ASDIR PRN PO Guaifenesin/Dextromethorphan (ROBITUSSIN-DM) 10 ML QID PRN PRN PO Hydrocodone Bitart/Acetaminophen (NORCO 5/325 TABLET) 1 TAB Q4H PRN PRN PO Hydrocodone Bitart/Acetaminophen (NORCO 10/325 TABLET) 1 TAB Q4H PRN PRN PO Insulin Human Lispro (HUMALOG) See Admin Criteria ASDIR PRN SUBQ Magnesium Sulfate/Dextrose (MAGNESIUM SULFATE 1GM/D5W 100ML) 100 ML DAILY PRN PRN IV (CKD) Ondansetron HCl (ZOFRAN) 4 MG Q4H PRN PRN IV Potassium Chloride (K-DUR) 40 MEQ DAILY PRN PRN PO Potassium Phos/Sodium Phos (PHOS-NAK PACKET) 2 PKT DAILY PRN PRN PO (CKD) Senna (SENOKOT) 1 TAB DAILY PRN PRN PO (CKD) Simethicone (MYLICON) 160 MG Q6H PRN PRN PO Trazodone HCl (DESYREL) 50 MG BEDTIME PRN PRN PO Influenza Virus Vaccine (FLUZONE QUAD SYRINGE) 60 MCG ASDIR IM (DC) Dietitian nutrition assessmentThe data set between the solid lines has been imported from the dietitian's assessment. BMI Calculated: 27.2Nutrition related diagnosis: Nutrition diagnosis details: Nutrition problem: Nutrition etiology: Nutrition signs and symptoms: Nutrition prescription: Dietitian name: Assessment completed: Free Text Obj NotesFree Text Obj Notes:GENERAL: NADHEENT: PERRLACV: RRR, NO RUBS OR GALLOPS, NORMAL S1,S2RESP: CTABGI: BS X 4 QUADRANTS, NON DISTENDEDGU: DEFERREDMSK: Left BKA heavily wrappedNEURO: A OX 4SKIN: NO E/O BREAKDOWN OR RASHES Diagnosis, Assessment Plan Free Text DxA P NotesFree text DxA P notes:#) Left BKA infection-IV antibiotics-ID consult #) DM type II-SSI #) Hyponatremia-We will replace #) CAD-Stable continue meds #) Left stump pain-Pain management Lovenox for DVT prophylaxis Dispo: dc on po abx when cleared by ID at 0913 RPT #:[id number] OF REPORTPRProgress trwl4664-82-74T90:50:00B.[id number] Available for patient uiazZBZGOPGWJXQKNK2939-66-49I45:13:24 [facility] 19:13:00 [id number]YDbc BQfe MileFySDztQUcAjOyImqe2qIdMGOzm4G5398-32-05O6 9:13:462356-[address] [place], [place] [address] PATIENT NAME: BRIGHT SALAZAR ADMIT DATE: 06/07/22ACCOUNT NO: [id number] ROOM NO: [facility] AGE: 57 REPORT TYPE: PROGRESS NOTE SEX: M ADMITTING PHYSICIAN:Kiel Fischer MD ATTENDING PHYSICIAN:Kiel Fischer MD DATE: SUBJECTIVE: The patient is comfortable. Pain under control. OBJECTIVE:VITAL SIGNS: Afebrile, heart rate in the 60s and respirations 17, blood pressure is 132/79.HEENT: Head is atraumatic.NECK: Supple.CHEST: With good air entry on both sides with no additional sounds.CARDIOVASCULAR: S1, S2 present. No murmurs, rubs, or gallops.ABDOMEN: Soft, no organ enlargement, regular bowel sounds heard.EXTREMITIES: Left leg stump is covered with a dressing and the dressing is intact. Cultures of the blood remain negative. LABORATORY DATA: His CBC and his electrolytes are quite stable. Vancomycin trough level was subtherapeutic, checked this morning at 8, a repeat scheduled for tomorrow. IMPRESSION AND PLAN: A 56-year-old man presented with cellulitis of the left leg stump post-BKA. On ceftriaxone, vancomycin. Dressing changes recommendations left in the chart. Discussed with nursing staff daily. Daily examination of the wound. Strict fall precautions. Optimize vancomycin trough levels, to keep around 15 mcg. Optimize blood sugar control. Recheck CBC tomorrow. Plan to switch to oral antibiotics in the next 48 hours. Discussed plan of care with the patient and discussed with nursing staff. PATIENT NAME: BRIGHT SALAZAR Dictated By: Quynh Delgado MD Date Dictated: 06/09/2022 19:13:16Date Transcribed: 06/09/2022 19:23:05AD/MARSYJodeshaun #: [id number].Receipt ID: [id number] by Quynh Delgado MD On 07/08/2022 11:33:49 AM at 1133 PATIENT NAME: BRIGHT SALAZAR [id number]:23:00B.[id number] vailable for patient ymnvFQZMKSQAISWXQJ4501-88-74N61:34:24 [facility] 2022-06-09 09:22:00 [id number]+sMANi0vrLj25vlsZm Jenae ytPnNvVXjnqT1zgkZntecCYhkJVYhrUZ1781-67-54R4 9:22:00 [facility] CenterHospital[facility] Progress NoteREPORT#:[id number] REPORT STATUS: SignedDATE:06/09/22 TIME: 921 PATIENT: BRIGHT SALAZAR UNIT #: [id number]#: [id number] [facility] [birth year] AGE: 56 SEX: M ATTEND: Kiel Fischer MDADM AUTHOR: Moises Skinner MD * ALL edits or amendments must be made on the electronic/computer document * SubjectiveChief complaint:continues to have high blood glucose Objective GeneralVS/I O:Vital Signs: Date Time Temp Pulse Resp B/P B/P Pulse O2 O2 Flow FiO2 Mean Ox Delivery Rate 06/10 0944 97 Room air 06/10 0723 97.5 80 18 152/90 110.5 97 Room air 06/10 0539 98.1 81 16 153/84 107.3 97 Room air 06/10 0101 96 Room air 06/10 0014 98.4 80 17 146/89 107.7 96 06/09 2017 98.6 84 15 160/79 106.4 95 Room air 06/09 1448 97.9 79 18 143/82 102.5 97 Room air 06/09 1045 97.9 73 18 130/79 96.1 96 Room air PATIENT WEIGHT: Weight (lb): Weight (oz): Weight (kg): 90.909 Medications:Active Meds + DC'd Last 24 HrsInsulin Human NPH (HumuLIN N) 30 UNIT BID AC SUBQ Vancomycin HCl (Vancomycin HCl) 1.25 GM Q8HR IV Sodium Chloride (NORMAL SALINE 250 ML) 250 MLNeomycin/Polymyxin/Bacitracin (Triple Antibiotic Ointment) 1 APPLIC DAILY TOPICAL Insulin Human Lispro (HUMALOG) 10 UNIT C MEALS SUBQ Aspirin (ASPIRIN) 81 MG BID PO Clopidogrel Bisulfate (PLAVIX) 75 MG DAILY PO Vancomycin HCl (Vancomycin HCl) 1.25 GM Q12HR IV (DC) Sodium Chloride (NORMAL SALINE 250 ML) 250 MLInsulin Human NPH (HumuLIN N) 20 UNIT BID AC SUBQ (DC) Miscellaneous Information (VANCOMYCIN PHARMACY TO DOSE) 1 EACH ASDIR IV (CKD) Ceftriaxone Sodium (ROCEPHIN) 1 GM Q24H IV Sterile Water (STERILE WATER) 10 MLGabapentin (NEURONTIN) 400 MG TID PO Metoprolol Tartrate (LOPRESSOR) 50 MG DAILY PO Zolpidem Tartrate (AMBIEN) 10 MG BEDTIME PO Enoxaparin Sodium (LOVENOX) 40 MG Q24H SUBQ Acetaminophen (TYLENOL) 650 MG Q4H PRN PRN PO Acetaminophen (TYLENOL) 650 MG Q6H PRN PRN RECTAL Al Hydrox/Mg Hydrox/Simethicone (MAALOX PLUS) 30 ML Q4H PRN PRN PO Calcium Carbonate (TUMS) 1,000 MG DAILY PRN PRN PO Clonidine HCl (CATAPRES) 0.1 MG Q6H PRN PRN PO Dextrose/Water (DEXTROSE 50%-WATER) 25 ML ASDIR PRN IV (CKD) Glucagon (GLUCAGON) 1 MG ASDIR PRN IM Glucose Polymer (GLUTOSE) 15 GM ASDIR PRN PO Guaifenesin/Dextromethorphan (ROBITUSSIN-DM) 10 ML QID PRN PRN PO Hydrocodone Bitart/Acetaminophen (NORCO 5/325 TABLET) 1 TAB Q4H PRN PRN PO Hydrocodone Bitart/Acetaminophen (NORCO 10/325 TABLET) 1 TAB Q4H PRN PRN PO Insulin Human Lispro (HUMALOG) See Admin Criteria ASDIR PRN SUBQ Magnesium Sulfate/Dextrose (MAGNESIUM SULFATE 1GM/D5W 100ML) 100 ML DAILY PRN PRN IV (CKD) Ondansetron HCl (ZOFRAN) 4 MG Q4H PRN PRN IV Potassium Chloride (K-DUR) 40 MEQ DAILY PRN PRN PO Potassium Phos/Sodium Phos (PHOS-NAK PACKET) 2 PKT DAILY PRN PRN PO (CKD) Senna (SENOKOT) 1 TAB DAILY PRN PRN PO (CKD) Simethicone (MYLICON) 160 MG Q6H PRN PRN PO Trazodone HCl (DESYREL) 50 MG BEDTIME PRN PRN PO Influenza Virus Vaccine (FLUZONE QUAD [id number] SYRINGE) 60 MCG ASDIR IM Dietitian nutrition assessmentThe data set between the solid lines has been imported from the dietitian's assessment. BMI Calculated: 27.2Nutrition related diagnosis: Nutrition diagnosis details: Nutrition problem: Nutrition etiology: Nutrition signs and symptoms: Nutrition prescription: Dietitian name: Assessment completed: ResultsFindings/Data:Laboratory Tests 06/10 06/10 06/09 06/09 0610 0408 2018 1632Chemistry Sodium (133 - 144 mmol/L) 134.0 Potassium (3.5 - 5.1 mmol/L) 3.9 Chloride (95 - 105 mmol/L) 104 Carbon Dioxide (21 - 32 mmol/L) 24 Anion Gap (4.0 - 15.0 GAP calc) 6.0 BUN (7 - 18 MG/DL) 14 Creatinine (0.55 - 1.30 MG/DL) 0.56 Glomerular Filtr Rate (>60 estGFR) 116 Glucose (70 - 110 MG/DL) 165 H POC Glucose (70 - 119 MG/DL) 161 H 275 H 186 H Calcium (8.5 - 10.1 MG/DL) 8.5 Specimen Appearance (1 NORMAL Index/DL) 1 NORMAL <2 MG Specimen Hemolysis (1 NORMAL Index/DL) 1 NORMAL <10 MG 06/09 1212 Chemistry POC Glucose (70 - 119 MG/DL) 237 H Laboratory Tests 06/10 0408 Hematology WBC (4.1 - 12.1 K/mm3) 6.4 RBC (3.8 - 5.5 M/mm3) 5.12 Hgb (10.6 - 15.8 G/DL) 13.5 Hct (31.8 - 47.4 %) 41.0 MCV (80.1 - 101.1 fL) 80.1 MCH (25.3 - 35.3 pg) 26.4 MCHC (32.7 - 35.1 G/DL) 32.9 RDW (12.2 - 16.4 %) 13.7 Plt Count (155 - 337 K/mm3) 364 H MPV (7.6 - 10.4 fL) 9.7 Gran % (37.8 - 82.6 %) 47.6 Lymph % (Auto) (14.1 - 45.4 %) 36.5 Williams % (Auto) (2.5 - 11.7 %) 11.2 Eos % (Auto) (0.0 - 6.2 %) 3.6 Baso % (Auto) (0.0 - 2.6 %) 0.8 Gran # (2.0 - 13.7 k/mm3) 3.02 Lymph # (Auto) (0.6 - 3.8 K/mm3) 2.32 Williams # (Auto) (0.11 - 0.59 K/mm3) 0.71 H Eos # (Auto) (0.0 - 0.4 K/mm3) 0.23 Baso # (Auto) (0.0 - 0.1 K/mm3) 0.05 Immature Gran % (0.0 - 2.0 %) 0.3 Nucleated RBC % (0.0 - 1.0 /100WBC%) 0.0 Nucleated RBCs # (0.00 - 0.05 K/mm3) 0.00 Free Text Obj NotesFree Text Obj Notes:GENERAL: NADHEENT: PERRLACV: RRR, NO RUBS OR GALLOPS, NORMAL S1,S2RESP: CTABGI: BS X 4 QUADRANTS, NON DISTENDEDGU: DEFERREDMSK: Left BKA heavily wrappedNEURO: A OX 4SKIN: NO E/O BREAKDOWN OR RASHES Diagnosis, Assessment Plan Free Text DxA P NotesFree text DxA P notes:#) Left BKA infection-IV antibiotics-ID consult #) DM type II-SSI #) Hyponatremia-We will replace #) CAD-Stable continue meds #) Left stump pain-Pain management Lovenox for DVT prophylaxis Dispo: Pending hospital course for dc planning at 1017 RPT #:[id number] OF REPORTPRProgress [id number]:22:00B.[id number] Available for patient ltkjQGHFUKPBBIUIWM1931-43-07W78:18:[address] [facility] 2022-06-08 08:47:00 [id number]a/Nl eaGp Czm/+W+i7daSx0+F2bsDlvHRKeCb2/251283-89-75H7 8:47:00 [facility] CenterHospital[facility] Progress NoteREPORT#:[id number] REPORT STATUS: SignedDATE:06/08/22 TIME: 0847 PATIENT: BRIGHT SALAZAR UNIT #: [id number]#: [id number] [facility] AGE: 56 SEX: M ATTEND: Kiel Fischer [facility] AUTHOR: Moises Skinner MD * ALL edits or amendments must be made on the electronic/computer document * SubjectiveChief complaint:Left stump infection continues Objective GeneralVS/I O:Vital Signs: Date Time Temp Pulse Resp B/P B/P Pulse O2 O2 Flow FiO2 Mean Ox Delivery Rate 06/10 0944 97 Room air 06/10 07 97.5 80 18 152/90 110.5 97 Room air 06/10 0539 98.1 81 16 153/84 107.3 97 Room air 06/10 010 96 Room air 06/10 0014 98.4 80 17 146/89 107.7 96 06/09 2017 98.6 84 15 160/79 106.4 95 Room air 06/09 1448 97.9 79 18 143/82 102.5 97 Room air 06/09 1045 97.9 73 18 130/79 96.1 96 Room air PATIENT WEIGHT: Weight (lb): Weight (oz): Weight (kg): 90.909 Medications:Active Meds + DC'd Last 24 HrsInsulin Human NPH (HumuLIN N) 30 UNIT BID AC SUBQ Vancomycin HCl (Vancomycin HCl) 1.25 GM Q8HR IV Sodium Chloride (NORMAL SALINE 250 ML) 250 MLNeomycin/Polymyxin/Bacitracin (Triple Antibiotic Ointment) 1 APPLIC DAILY TOPICAL Insulin Human Lispro (HUMALOG) 10 UNIT C MEALS SUBQ Aspirin (ASPIRIN) 81 MG BID PO Clopidogrel Bisulfate (PLAVIX) 75 MG DAILY PO Vancomycin HCl (Vancomycin HCl) 1.25 GM Q12HR IV (DC) Sodium Chloride (NORMAL SALINE 250 ML) 250 MLInsulin Human NPH (HumuLIN N) 20 UNIT BID AC SUBQ (DC) Miscellaneous Information (VANCOMYCIN PHARMACY TO DOSE) 1 EACH ASDIR IV (CKD) Ceftriaxone Sodium (ROCEPHIN) 1 GM Q24H IV Sterile Water (STERILE WATER) 10 MLGabapentin (NEURONTIN) 400 MG TID PO Metoprolol Tartrate (LOPRESSOR) 50 MG DAILY PO Zolpidem Tartrate (AMBIEN) 10 MG BEDTIME PO Enoxaparin Sodium (LOVENOX) 40 MG Q24H SUBQ Acetaminophen (TYLENOL) 650 MG Q4H PRN PRN PO Acetaminophen (TYLENOL) 650 MG Q6H PRN PRN RECTAL Al Hydrox/Mg Hydrox/Simethicone (MAALOX PLUS) 30 ML Q4H PRN PRN PO Calcium Carbonate (TUMS) 1,000 MG DAILY PRN PRN PO Clonidine HCl (CATAPRES) 0.1 MG Q6H PRN PRN PO Dextrose/Water (DEXTROSE 50%-WATER) 25 ML ASDIR PRN IV (CKD) Glucagon (GLUCAGON) 1 MG ASDIR PRN IM Glucose Polymer (GLUTOSE) 15 GM ASDIR PRN PO Guaifenesin/Dextromethorphan (ROBITUSSIN-DM) 10 ML QID PRN PRN PO Hydrocodone Bitart/Acetaminophen (NORCO 5/325 TABLET) 1 TAB Q4H PRN PRN PO Hydrocodone Bitart/Acetaminophen (NORCO 10/325 TABLET) 1 TAB Q4H PRN PRN PO Insulin Human Lispro (HUMALOG) See Admin Criteria ASDIR PRN SUBQ Magnesium Sulfate/Dextrose (MAGNESIUM SULFATE 1GM/D5W 100ML) 100 ML DAILY PRN PRN IV (CKD) Ondansetron HCl (ZOFRAN) 4 MG Q4H PRN PRN IV Potassium Chloride (K-DUR) 40 MEQ DAILY PRN PRN PO Potassium Phos/Sodium Phos (PHOS-NAK PACKET) 2 PKT DAILY PRN PRN PO (CKD) Senna (SENOKOT) 1 TAB DAILY PRN PRN PO (CKD) Simethicone (MYLICON) 160 MG Q6H PRN PRN PO Trazodone HCl (DESYREL) 50 MG BEDTIME PRN PRN PO Influenza Virus Vaccine (FLUZONE QUAD [id number] SYRINGE) 60 MCG ASDIR IM Dietitian nutrition assessmentThe data set between the solid lines has been imported from the dietitian's assessment. BMI Calculated: 27.2Nutrition related diagnosis: Nutrition diagnosis details: Nutrition problem: Nutrition etiology: Nutrition signs and symptoms: Nutrition prescription: Dietitian name: Assessment completed: Free Text Obj NotesFree Text Obj Notes:GENERAL: NADHEENT: PERRLACV: RRR, NO RUBS OR GALLOPS, NORMAL S1,S2RESP: CTABGI: BS X 4 QUADRANTS, NON DISTENDEDGU: DEFERREDMSK: Left BKA heavily wrappedNEURO: A OX 4SKIN: NO E/O BREAKDOWN OR RASHES Diagnosis, Assessment Plan Free Text DxA P NotesFree text DxA P notes:#) Left BKA infection-IV antibiotics-ID consult #) DM type II-SSI #) Hyponatremia-We will replace #) CAD-Stable continue meds #) Left stump pain-Pain management Lovenox for DVT prophylaxis Dispo: Pending hospital course at 1018 RPT #:[id number] OF REPORTPRProgress [id number]:47:00B.[id number] Available for patient iirgRHEZOJTLVYTOWJ5636-05-81F37:18:[address] [facility] 2022-06-07 16:02:00 [id number]muGY eRIb JVONNoqvatyxskp0XtXQsjKgqYfcxPBP9218-30-22K7 6:02:437031-2315 [place] [address] PATIENT NAME: BRIGHT SALAZAR ADMIT DATE: 06/07/22ACCOUNT NO: [id number] ROOM NO: B.113 AGE: 57 REPORT TYPE: CONSULTATION REPORT SEX: M ADMITTING PHYSICIAN:Kiel Fischer MD ATTENDING PHYSICIAN:Kiel Fischer MD CONSULTATION DATE: Consultation requested for evaluation of an infected left BKA stump. HISTORY OF PRESENT ILLNESS: The patient is a 56-year-old man who has a history of diabetes, coronary artery disease, PAD, stroke, previous CABG, first presented to the hospital with left foot pain and swelling, which started in 07/2020. 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 On 05/01, he underwent irrigation and debridement of the left below-knee amputation stump with delayed primary wound closure. The wound cultures from the left foot were positive for Enterobacter, Enterococcus species as well as Proteus vulgaris. The patient completed treatment duration with IV meropenem. He was discharged home on 05/10. He fell while at home and sustained trauma on his surgical site. The patient has been following with Dr. Herman, orthopedic service. He was started on Bactrim, which he took for about a couple of weeks. The patient noted some yellowish drainage from the surgical wound, which seemingly has slowed down in the last several days. However, he was there because of inadequate healing of the wound. The patient was advised for admission to the hospital. An x-ray of the left tibia-fibula showed soft tissue swelling. The patient's pain is under control. Denies any history of fevers or chills. Denies chronic cough or shortness of breath, chest pain, nausea, vomiting, or abdominal discomfort. The patient has a couple of loose bowel movements since admission. He was started empirically on cefazolin pending blood cultures, which are negative so far. ID consultation requested for further adjustment of his antibiotics if need be. PATIENT NAME: BRIGHT SALAZAR PAST MEDICAL HISTORY: As mentioned above. PAST SURGICAL HISTORY: Includes multiple toe amputations, transmetatarsal amputation in the past, and CABG x4. FAMILY HISTORY: Noncontributory for this admission. SOCIAL HISTORY: Positive for tobacco use. Denies any excessive alcohol or use of illicit drugs. MEDICATIONS: List reconciled. ALLERGIES: NONE PER HIS CHART. REVIEW OF SYSTEMS: As mentioned in history of present illness. PHYSICAL EXAMINATION:GENERAL: He is awake, alert, afebrile, heart rate in the 70s to 80s, respirations 20, and blood pressure is 147/76.HEENT: Head is atraumatic. Oropharyngeal mucosa shows good hydration.NECK: Supple.CHEST: Good air entry on both sides with no crepitations, rales or rhonchi.CARDIOVASCULAR: S1, S2. No murmurs, rubs, or gallops.ABDOMEN: Soft, no organ enlargement. Regular bowel sounds are heard.EXTREMITIES: Left leg stump is covered with a dressing. LABORATORY DATA: Pictures show jia now removed with some local swelling, noactive drainage. Sed rate checked yesterday at 70. Blood sugars are elevated. The patient has low sodium, BUN and creatinine is within normal range. CRP was 8.6. IMPRESSION AND PLAN: A 56-year-old man post left below-knee amputation for wet gangrenous changes, left foot. Developed local swelling and drainage, failed outpatient oral antibiotic therapywith Bactrim for 2 weeks. Cellulitis at the surgical site, jia removed. X-ray of the left tibia-fibula site shows some soft tissue swelling only. Inflammation markers are favorable. Escalate antibiotic regimen to include methicillin-resistant Staphylococcus aureus and gram-negative coverage with ceftriaxone. Local site care, daily dressing changes, and examination of wound. Follow blood cultures. PATIENT NAME: BRIGHT SALAZAR Blood sugar control. Tobacco cessation discussed. The patient is poorly motivated. Final recommendations to follow. Thank you for inviting me to participate in the care of this patient. Dictated By: Quynh Delgado MD Date Dictated: 06/07/2022 16:02:21Date Transcribed: 06/07/2022 19:09:35AD/QUSJob #: [id number] ID: [id number] by Quynh Delgado MD On 07/08/2022 11:33:38 AM at 1133 PATIENT NAME: BRIGHT SALAZAR :09:0 [id number].[id number] for patient [id number]:34:[address] [facility] 2022-06-07 08:25:00 [id number]/nR iMU2 [id number] 8:25:00 [facility]Hospital[facility] Progress NoteREPORT#:[id number] REPORT STATUS: SignedDATE:06/07/22 TIME: 824 PATIENT: BRIGHT SALAZAR UNIT #: [id number]#: [id number] [facility] AGE: 56 SEX: M ATTEND: [facility] AUTHOR: Moises Skinner MD * ALL edits or amendments must be made on the electronic/computer document * SubjectiveChief complaint:pain controlledawaiting id eval Objective GeneralVS/I O:Vital Signs: Date Time Temp Pulse Resp B/P B/P Pulse O2 O2 Flow FiO2 Mean Ox Delivery Rate 06/10 0944 97 Room air 06/10 0723 97.5 80 18 152/90 110.5 97 Room air 06/10 0539 98.1 81 16 153/84 107.3 97 Room air 06/10 0101 96 Room air 06/10 0014 98.4 80 17 146/89 107.7 96 06/09 2018 98.6 84 15 160/79 106.4 95 Room air 06/09 1448 97.9 79 18 143/82 102.5 97 Room air 06/09 1045 97.9 73 18 130/79 96.1 96 Room air PATIENT WEIGHT: Weight (lb): Weight (oz): Weight (kg): 90.909 Medications:Active Meds + DC'd Last 24 HrsInsulin Human NPH (HumuLIN N) 30 UNIT BID AC SUBQ Vancomycin HCl (Vancomycin HCl) 1.25 GM Q8HR IV Sodium Chloride (NORMAL SALINE 250 ML) 250 MLNeomycin/Polymyxin/Bacitracin (Triple Antibiotic Ointment) 1 APPLIC DAILY TOPICAL Insulin Human Lispro (HUMALOG) 10 UNIT C MEALS SUBQ Aspirin (ASPIRIN) 81 MG BID PO Clopidogrel Bisulfate (PLAVIX) 75 MG DAILY PO Vancomycin HCl (Vancomycin HCl) 1.25 GM Q12HR IV (DC) Sodium Chloride (NORMAL SALINE 250 ML) 250 MLInsulin Human NPH (HumuLIN N) 20 UNIT BID AC SUBQ (DC) Miscellaneous Information (VANCOMYCIN PHARMACY TO DOSE) 1 EACH ASDIR IV (CKD) Ceftriaxone Sodium (ROCEPHIN) 1 GM Q24H IV Sterile Water (STERILE WATER) 10 MLGabapentin (NEURONTIN) 400 MG TID PO Metoprolol Tartrate (LOPRESSOR) 50 MG DAILY PO Zolpidem Tartrate (AMBIEN) 10 MG BEDTIME PO Enoxaparin Sodium (LOVENOX) 40 MG Q24H SUBQ Acetaminophen (TYLENOL) 650 MG Q4H PRN PRN PO Acetaminophen (TYLENOL) 650 MG Q6H PRN PRN RECTAL Al Hydrox/Mg Hydrox/Simethicone (MAALOX PLUS) 30 ML Q4H PRN PRN PO Calcium Carbonate (TUMS) 1,000 MG DAILY PRN PRN PO Clonidine HCl (CATAPRES) 0.1 MG Q6H PRN PRN PO Dextrose/Water (DEXTROSE 50%-WATER) 25 ML ASDIR PRN IV (CKD) Glucagon (GLUCAGON) 1 MG ASDIR PRN IM Glucose Polymer (GLUTOSE) 15 GM ASDIR PRN PO Guaifenesin/Dextromethorphan (ROBITUSSIN-DM) 10 ML QID PRN PRN PO Hydrocodone Bitart/Acetaminophen (NORCO 5/325 TABLET) 1 TAB Q4H PRN PRN PO Hydrocodone Bitart/Acetaminophen (NORCO 10/325 TABLET) 1 TAB Q4H PRN PRN PO Insulin Human Lispro (HUMALOG) See Admin Criteria ASDIR PRN SUBQ Magnesium Sulfate/Dextrose (MAGNESIUM SULFATE 1GM/D5W 100ML) 100 ML DAILY PRN PRN IV (CKD) Ondansetron HCl (ZOFRAN) 4 MG Q4H PRN PRN IV Potassium Chloride (K-DUR) 40 MEQ DAILY PRN PRN PO Potassium Phos/Sodium Phos (PHOS-NAK PACKET) 2 PKT DAILY PRN PRN PO (CKD) Senna (SENOKOT) 1 TAB DAILY PRN PRN PO (CKD) Simethicone (MYLICON) 160 MG Q6H PRN PRN PO Trazodone HCl (DESYREL) 50 MG BEDTIME PRN PRN PO Influenza Virus Vaccine (FLUZONE QUAD [id number] SYRINGE) 60 MCG ASDIR IM Dietitian nutrition assessmentThe data set between the solid lines has been imported from the dietitian's assessment. BMI Calculated: 27.2Nutrition related diagnosis: Nutrition diagnosis details: Nutrition problem: Nutrition etiology: Nutrition signs and symptoms: Nutrition prescription: Dietitian name: Assessment completed: Free Text Obj NotesFree Text Obj Notes:GENERAL: NADHEENT: PERRLACV: RRR, NO RUBS OR GALLOPS, NORMAL S1,S2RESP: CTABGI: BS X 4 QUADRANTS, NON DISTENDEDGU: DEFERREDMSK: Left BKA heavily wrappedNEURO: A OX 4SKIN: NO E/O BREAKDOWN OR RASHES Diagnosis, Assessment Plan Free Text DxA P NotesFree text DxA P notes:#) Left BKA infection-IV antibiotics-ID consult #) DM type II-SSI #) Hyponatremia-We will replace #) CAD-Stable continue meds #) Left stump pain-Pain management Lovenox for DVT prophylaxis Dispo: Pending hospital course at 1018 RPT #:[id number] OF REPORTPRProgress urtd9171-63-23Y07:25:00B.[id number] Available for patient ciolQIKVTELZLOLOJR7412-99-92L80:18:[address] [facility] 2022-06-07 07:22:00 [id number]/Sp6g+93b3W9iP7OD+DR Quigley lVbu1/QcPsd1jglE1JasEj4h49z6J+2E1587-02-85A6 7:22:00 [facility])Orthopaedic Consult NoteREPORT#:[id number] REPORT STATUS: SignedDATE:06/07/22 TIME: 721 PATIENT: BRIGHT SALAZAR UNIT #: [id number]#: [id number] [facility] AGE: 56 SEX: M ATTEND: Kiel Fischer MDADM AUTHOR: Dhiraj Herman MD * ALL edits or amendments must be made on the electronic/computer document * History of Present IllnessHPI:Patient is a 56-year-old male diabetic who underwent a two-stage left below-kneeamputation approximately a month ago for a gangrenous foot. He followed up a couple of weeks back and was noted to have some superficial cellulitis and a little bit of drainage from the lateral aspect of the stump wound. He was placed on oral Bactrim and then followed up again yesterday. There was minimal improvement at best and consequently he was recommended to be admitted for intravenous antibiotics. History - Adult longitudinalAdditional medical history:Diabetes, coronary artery diseaseAdditional surgical history:Multiple toe amputations, transmetatarsal amputation, CABG c1Urclnyoish family history:Family history of diabetes, no bleeding or clotting dyscrasiasSmoking status for patients 13 years old or older: Current every day smokerDate last smoked: 06/06/22Additional social history:Pre-hospital services utilized: None Occupation/Profession: Full-time employed Education history: Return to work/school plan: return to work as able Marital status: Never Hobbies/leisure activities: Prior living situation: Home Living with: AloneAllergies:Coded Allergies:No Known Allergies (06/06/22) Review of SystemsConstitutional:Denies: chills, fatigue, fever. Respiratory:Denies: AZEVEDO (dyspnea on exertion), SOB. Cardiovascular:Denies: chest pain, AZEVEDO (dyspnea on exertion). GI:Denies: abdominal pain, nausea, vomiting. Musculoskeletal:extremity pain. All systems rev neg: except as marked Objective Physical ExamGeneral appearance: alert, awake, orientedHEENT: atraumatic, normocephalicNeck: full range of motion, supple/no meningismusCardiovascular: brisk cap refill Respiratory: no distress, symmetric chest riseAbdomen: non-tender, softMusculoskeletal: left leg BKA stump wound intact, but with some superficial cellulitis about the lateral aspect and slight drainage of thin purulence. motorgrossly intact sensory diminished in stocking glove distribution on right Diagnosis, Assessment PlanFree Text A P:A/P superficial cellulitis of left BKA stump wound - Recommend proceeding with empiric intravenous antibiotics for at least severaldays if not for a prolonged course. Patient was not responding well to oral Bactrim. Consider infectious disease consult - Pain control- will followup peripherally. No current surgical needs. at 0732 RPT #:[id number] OF REPORTKIXhtamocbgxjj5491-31-96I52:22:00B. [id number] for patient hvdoTEAOZVGIQMIWUD4996-19-04Y79:32:[address] [facility] 2022-06-06 19:19:00 [id number]/O /qxW VaqrZDHizGcSqX5yjIK2aTlW2YqjeysO2883-65-67U0 9:19:00 [facility]Hospital[facility] History PhysicalREPORT#:[id number] REPORT STATUS: SignedDATE:06/06/22 TIME: 1918 PATIENT: BRIGHT SALAZAR UNIT #: [id number]#: [id number] [facility]WD[facility]: [facility] AGE: 57 SEX: M ATTEND: Kiel Fischer MDADM AUTHOR: Pino Conway * ALL edits or amendments must be made on the electronic/computer document * History of Present Illness HPIChief complaint:Left stump infectionHPI:Patient is a 56-year-old male with past medical history significant for diabetesmellitus type 2 CAD CABG patient had surgery for left BKA on May 01 he states he was here for 2 weeks and then he went home and had a fall on the woundhe presented to his Ortho's office Dr. Herman who put the patient on Bactrim he presented back to his office today and stated that the infection unfortunately had progressed and he needed to be admitted for IV antibiotics. Patient admitted for further medical work-up he denies any nausea vomiting constipation diarrhea fever chills History Past Medical Surgical HxAdditional medical history:Diabetes, coronary artery diseaseAdditional surgical history:Multiple toe amputations, transmetatarsal amputation, CABG x4 Family HistoryAdditional family history:Family history of diabetes, no bleeding or clotting dyscrasias Social HistorySmoking status for patients 13 years old or older: Current every day smokerDate last smoked: 06/06/22Additional social history:Pre-hospital services utilized: None Occupation/Profession: Full-time employed Education history: Return to work/school plan: return to work as able Marital status: Never Hobbies/leisure activities: Prior living situation: Home Living with: Alone Medication/Allergy-Vaccine HxAllergies:Coded Allergies:No Known Allergies (06/06/22) Review of Systems Free Text ROS NotesFree Text ROS Notes:14 POINT REVIEW OF SYSTEMS REVIEWED BY ME IS NEGATIVE UNLESS DESCRIBED IN HPI Physical ExamVS/I O:Vital Signs Date Temp Pulse Resp B/P B/P Mean Pulse Ox FiO2 06/06 97.7-97.9 88-104 16-32 132-159/68-83 92-106.9 95-99 Last Documented: Result Date Time Pulse Ox 96 06/06 1553 B/P 155/83 06/06 1553 B/P Mean 106.9 06/06 1553 O2 Delivery Room air 06/06 155 Temp 97.7 06/06 1553 Pulse 91 06/06 1553 Resp 20 06/06 1553 Patient Weight and BMI Weight (kg): 90.909 BMI: 27.2 Free Text PE NotesFree Text PE Notes:GENERAL: NADHEENT: PERRLACV: RRR, NO RUBS OR GALLOPS, NORMAL S1,S2RESP: CTABGI: BS X 4 QUADRANTS, NON DISTENDEDGU: DEFERREDMSK: Left BKA heavily wrappedNEURO: A OX 4SKIN: NO E/O BREAKDOWN OR RASHES Diagnosis, Assessment PlanFree Text A P:#) Left BKA infection-IV antibiotics-ID consult #) DM type II-SSI #) Hyponatremia-We will replace #) CAD-Stable continue meds #) Left stump pain-Pain management Lovenox for DVT prophylaxis Dispo: Pending hospital course at 1922 at 1152 RPT #:[id number] OF REPORTHPHistory and physical ohncjdgnjwj8317-60-81A51:19:00B.[id number] -[id number] for patient wxamEUAPGTGRUCCLNX7736-69-15Q07:22:35 [facility] 2022-06-06 12:06:00 [id number]/Z+oULcFp5e8e5jcIp8L0 j0Di 6hKOqCk0I2EmREDglGClo8ltMWP8Tp4j8250-25-19B5 2:06:00 [facility] [place] ([facility])EMERGENCY PROVIDER REPORTREPORT#:[id number] REPORT STATUS: SignedDATE:06/06/22 TIME: 1206 PATIENT: BRIGHT SALAZAR UNIT #: [id number]#: [id number] ROOM/BED: [facility]-WAGE: 56 SEX: M PCP PHYS: No Primary or Family PhysicianSERVICE AUTHOR: Lazarus Mason DO * ALL edits or amendments must be made on the electronic/computer document * HPI-General Illness GeneralInitial Greet Date/Time 06/06/22 0957 Provider in TriageHPI Chief Complaint stump infection, sent by Dr. Bailey General/Const No acute distress PresentationChief Complaint Multip medical complaints Free Text HPI NotesFree Text HPI NotesPatient presents from Dr. Herman office with infected BKA. Patient states approximately mid April he had a BKA done. 2 weeks ago he had partial jia removed and then in office today had the remainder of the jia removed. States Dr. Herman felt patient needed to be admitted for IV antibiotics. Patient has been on Bactrim at home. Does complain of some pain. Patient is a diabetic. Is a smoker. Review of Systems ROS StatementsAll systems rev neg except as marked. Review of SystemsConstitutionalReports: Malaise. MusculoskeletalReports: Extremity pain. Past Medical History - AdultStated Complaint WOUND EVAL SENT BY DR DardenergiesCoded Allergies:No Known Allergies (06/06/22) Home MedicationsActive ScriptsCLOPIDOGREL (PLAVIX) 75 MG PO DAILY CLOPIDOGREL (PLAVIX) 75 MG PO DAILY #30 TAB Prov: 05/13/22INSULIN NPH HUMAN RECOM (HumuLIN N) 20 UNITS SUBQ BID AC Discontinued ScriptsHYDROcodone/APAP (HYDROcodone/APAP 10/325) 1 TAB PO Q8H PRN PRN PAIN SCALE 7-10 HYDROcodone/APAP (HYDROcodone/APAP 10/325) 1 TAB PO Q8H PRN PRN PAIN SCALE 7-10 #20 TABS Prov: 05/10/22 DC: 06/06/22 1752 DC prior to admitHYDROcodone/APAP (HYDROcodone/APAP 7.5/325) 1 TAB PO Q6H PRN PRN pain HYDROcodone/APAP (HYDROcodone/APAP 7.5/325) 1 TAB PO Q6H PRN PRN pain #28 TABS Prov: 05/10/22 DC: 06/06/22 1752 DC prior to admitGABAPENTIN (NEURONTIN) 800 MG PO TID GABAPENTIN (NEURONTIN) 800 MG PO TID #180 CAP Prov: 05/13/22 DC: 06/06/22 1752 DC prior to admitPRAVASTATIN (PRAVACHOL) 20 MG PO BEDTIME PRAVASTATIN (PRAVACHOL) 20 MG PO BEDTIME #30 TAB Prov: 05/13/22 DC: 06/06/22 1752 DC prior to admitPANTOPRAZOLE DR (PROTONIX) 40 MG PO DAILY 30 Days #30 TAB Prov: 05/13/22 DC: 06/06/22 1752 DC prior to admitIBUPROFEN (MOTRIN) 800 MG PO TID Reported MedicationsASPIRIN 81 MG PO BID ZOLPIDEM (AMBIEN) 10 MG PO BEDTIME GABAPENTIN (NEURONTIN) 400 MG PO TID METOPROLOL TARTRATE (LOPRESSOR) 50 MG PO DAILY Discontinued Reported MedicationsMETOPROLOL TARTRATE (LOPRESSOR) 50 MG PO BID Additional Medical HistoryDiabetes, coronary artery diseaseAdditional Surgical HistoryMultiple toe amputations, transmetatarsal amputation, CABG v5Zcjqmluixz Family HistoryFamily history of diabetes, no bleeding or clotting dyscrasiasSmoking status for patients 13 years old or older: Never SmokerAdditional Social HistoryPre-hospital services utilized: None Occupation/Profession: Full-time employed Education history: Return to work/school plan: return to work as able Marital status: Never Hobbies/leisure activities: Prior living situation: Home Living with: Alone Physical Exam Vital SignsVital SignsFirst Documented: Result Date Time Pulse Ox 99 06/06 955 B/P 132/72 06/06 955 B/P Mean 92 06/06 955 O2 Delivery Room air 06/06 955 Temp 97.9 06/06 955 Pulse 104 06/06 955 Resp 16 06/06 955 Last Documented: Result Date Time Pulse Ox 99 12/29 0955 B/P 132/72 06/06 955 B/P Mean 92 06/06 955 O2 Delivery Room air 06/06 955 Temp 97.9 06/06 955 Pulse 104 06/06 955 Resp 16 06/06 955 Review of Vital Signs Reviewed Physical ExamGeneral/Const General/Const Awake, AlertMS Head Head Atraumatic, NormocephalicEyes Eyes PERRLEars/Nose/Throat Ears/Nose/Throat Airway patent, Mucous membranes moist, Pharynx NLMS Neck Neck Supple, No meningismus, Full range of motion, No swelling, Non-tender, No massesResp/Chest Respiratory/Chest Breath sounds NL, Breath sounds = bilat, No respiratory distress, No rales, No rhonchi, No wheezingCardiovascular Cardiovascular Heart rate NL, Regular rhythm, Heart sounds NL, Cap refill notdelayed, Peripheral circulation NLAbdomen/GI Abdomen/GI Soft, Non-tender, No guarding, No reboundMS Back Back Inspection NL, Painless range of motion, Non-tender, No CVA tendernessLymphatic Lymphatic No gross adenopathyMS Upper Extrem Upper Extremity/MS Inspection NL, No swelling, Non-tender, No erythema, No deformity, Neurologic intact, Vascular intact, No clubbing/cyanosisMS Wrist/Hand Wrist/Hand Inspection NL, No swelling, No erythema, Non-tender, No deformity,Neurologic intact, Vascular intact, No clubbing/cyanosisMS Lower Extrem Text/Dict NotesLeft BKAMS Ankle/Foot Ankle/Foot Inspection NL, No swelling, No erythema, Non-tender, No deformity,Neurologic intact, Vascular intact, No edemaSkin Skin Color NL, Warm, Dry, Turgor NLNeurologic Neurologic Oriented X3, Speech NL, No motor deficits, No sensory deficitsPsychiatric Psychiatric Affect NL, Mood NL, Thought content NL Interpretation Diagnostics Lab Results InterpretationResultsLaboratory Tests 06/06/22 1110:[Embedded Image Not Available]Laboratory Tests: 06/06 06/06 1110 1110 Chemistry Sodium (133 - 144 mmol/L) 128.0 L Potassium (3.5 - 5.1 mmol/L) 4.1 Chloride (95 - 105 mmol/L) 94 L Carbon Dioxide (21 - 32 mmol/L) 25 Anion Gap (4.0 - 15.0 GAP calc) 9.0 BUN (7 - 18 MG/DL) 22 H Creatinine (0.55 - 1.30 MG/DL) 1.10 Glomerular Filtr Rate (>60 estGFR) 79 Glucose (70 - 110 MG/DL) 479 *H Calcium (8.5 - 10.1 MG/DL) 9.0 Total Bilirubin (0.00 - 1.00 MG/DL) < 0.10 Direct Bilirubin (0.00 - 0.30 MG/DL) < 0.10 Indirect Bilirubin (0.2 - 1.3 MG/DL) 0.10 L AST (15 - 37 Unit/L) 40 H ALT (12 - 78 Unit/L) 51 Total Alk Phosphatase (45 - 117 Unit/L) 160 H C-Reactive Protein (0.000 - 0.900 MG/DL) 0.686 Total Protein (6.4 - 8.2 G/DL) 9.5 H Albumin (3.4 - 5.0 G/DL) 3.0 L Specimen Appearance (1 NORMAL Index/DL) 1 NORMAL <2 MG Specimen Hemolysis (1 NORMAL Index/DL) 1 NORMAL <10 MG Hematology WBC (4.1 - 12.1 K/mm3) 6.9 RBC (3.8 - 5.5 M/mm3) 5.13 Hgb (10.6 - 15.8 G/DL) 13.7 Hct (31.8 - 47.4 %) 41.2 MCV (80.1 - 101.1 fL) 80.3 MCH (25.3 - 35.3 pg) 26.7 MCHC (32.7 - 35.1 G/DL) 33.3 RDW (12.2 - 16.4 %) 13.8 Plt Count (155 - 337 K/mm3) 401 H MPV (7.6 - 10.4 fL) 9.3 Gran % (37.8 - 82.6 %) 59.4 Lymph % (Auto) (14.1 - 45.4 %) 31.2 Williams % (Auto) (2.5 - 11.7 %) 7.5 Eos % (Auto) (0.0 - 6.2 %) 1.2 Baso % (Auto) (0.0 - 2.6 %) 0.4 Gran # (2.0 - 13.7 k/mm3) 4.12 Lymph # (Auto) (0.6 - 3.8 K/mm3) 2.16 Williams # (Auto) (0.11 - 0.59 K/mm3) 0.52 Eos # (Auto) (0.0 - 0.4 K/mm3) 0.08 Baso # (Auto) (0.0 - 0.1 K/mm3) 0.03 Immature Gran % (0.0 - 2.0 %) 0.3 Nucleated RBC % (0.0 - 1.0 /100WBC%) 0.0 Nucleated RBCs # (0.00 - 0.05 K/mm3) 0.00 ESR (0 - 20 mm/hr) 70 H Microbiology: Date/Time Procedure - Status Source Growth 06/06 1110 Blood Culture - RECD BLOOD 06/06 1110 Blood Culture - RECD BLOOD 06/06 1109 Blood Culture - RECD BLOOD 06/06 1109 Blood Culture - RECD BLOOD Recent Impressions:RADIOLOGY - XR TIBIA/FIBULA 2 V LT 06/06 1005 Report Impression - Status: SIGNED Entered: 06/06/2022 1019 IMPRESSION: Interval removal of skin jia, decreased soft tissue prominenceabout the amputation and changes of healing.Impression By: [email or web address] - Rashad Rasmussen MD Re-Evaluation MDM ED CourseMedication(s) OrderedMedication(s) Ordered:Anti-Infective Agents Sig/Ekta Start time Last Medication Dose Route Stop Time Status Admin Vancomycin HCl 1,000 MG X1ED STA 06/06 1210 DC 06/06 Sodium Chloride 250 ML IV 06/06 1339 1353 Ceftriaxone Sodium 1 GM X1ED STA 06/06 0959 DC 06/06 Sterile Water 10 ML IV 06/06 1001 1304 Electrolytic, Caloric, And Ankiet Sig/Ekta Start time Last Medication Dose Route Stop Time Status Admin Sodium Chloride 1,000 ML X1ED STA 06/06 1213 AC 06/06 IV 06/06 2012 1354 Sodium Chloride 250 ML X1ED STA 06/06 0959 DC 06/06 IV 06/06 1058 1352 Hormones And Synthetic Substit Sig/Ekta Start time Last Medication Dose Route Stop Time Status Admin Insulin Human Regular 10 UNIT X1ED STA 06/06 1213 DC 06/06 IV 06/06 1214 1400 Patient Discharge Departure Vital Signs/ConditionVital SignsFirst Documented: Result Date Time Pulse Ox 99 12/29 0955 B/P 132/72 06/06 955 B/P Mean 92 06/06 955 O2 Delivery Room air 06/06 955 Temp 97.9 06/06 955 Pulse 104 06/06 955 Resp 16 06/06 955 Last Documented: Result Date Time Pulse Ox 99 06/06 955 B/P 132/72 06/06 955 B/P Mean 92 06/06 955 O2 Delivery Room air 06/06 955 Temp 97.9 06/06 955 Pulse 104 06/06 955 Resp 16 06/06 955 All vital signs available at the time of this entry have been reviewed. Clinical ImpressionClinical ImpressionPrimary Impression: Wound infectionSecondary Impressions: Diabetes, Hyperglycemia Disposition DecisionAdmit Admit Physician Name Kiel Fischer MD Admit Physician Hospitalist Request Time 1208 Request Date 06/06/22 )( Admission Accepts Yes )( Accepted Time 1208 )( Accepted Date 06/06/22 Call Information will see patient, agrees with eval, agrees with plan at 1833RPT #:[id number] OF REPORTEDEmergency department fvfoqi1077-13-41D60:06:00B.[id number] AVAvailable for patient hjpzREAMIHPSMLHBTG0378-59-02K69:33:[address] [facility] 2022-06-06 10:00:00 [id number]+bUbBH4igS+98Un5 sJXJ 96OeSfuEY33I1CrSAeqrqiAKZIcqm+w01178-77-47M9 0:00:00 [facility] ([facility])EMERGENCY PROVIDER REPORTREPORT#:[id number] REPORT STATUS: SignedDATE:06/06/22 TIME: 1000 PATIENT: BRIGHT SALAZAR UNIT #: [id number]#: [id number] [facility]AGE[facility] 56 SEX: M PCP PHYS: No Primary or Family PhysicianSERVICE AUTHOR: Jose Martinez ETHICS INSTRUCTOR * ALL edits or amendments must be made on the electronic/computer document * Provider in Triage - Adult Provider in TriageInitial Greet Date/Time 06/06/22 1867 Karsten NoteI have greeted and performed a focused rapid initial assessment of this patient.A comprehensive ED assessment and evaluation of the patient, analysis of all test results, and completion of the medical decision-making process will be conducted by additional ED providers. HPI Chief Complaint stump infection, sent by Dr. Mohanies: Fever. PE General/Const No acute distress MSE Not CompleteThe medical screening exam is not complete. Further evaluation and/or treatment is required. The patient will be re-directed to the emergency department. PMH-Provider in TriageStated Complaint WOUND EVAL SENT BY DR DardenergiesCoded Allergies:No Known Allergies (05/13/22) Home MedicationsActive ScriptsHYDROcodone/APAP (HYDROcodone/APAP 10/325) 1 TAB PO Q8H PRN PRN PAIN SCALE 7-10 HYDROcodone/APAP (HYDROcodone/APAP 10/325) 1 TAB PO Q8H PRN PRN PAIN SCALE 7-10 #20 TABS Prov: 05/10/22HYDROcodone/APAP (HYDROcodone/APAP 7.5/325) 1 TAB PO Q6H PRN PRN pain HYDROcodone/APAP (HYDROcodone/APAP 7.5/325) 1 TAB PO Q6H PRN PRN pain #28 TABS Prov: 05/10/22CLOPIDOGREL (PLAVIX) 75 MG PO DAILY CLOPIDOGREL (PLAVIX) 75 MG PO DAILY #30 TAB Prov: 05/13/22GABAPENTIN (NEURONTIN) 800 MG PO TID GABAPENTIN (NEURONTIN) 800 MG PO TID #180 CAP Prov: 05/13/22PRAVASTATIN (PRAVACHOL) 20 MG PO BEDTIME PRAVASTATIN (PRAVACHOL) 20 MG PO BEDTIME #30 TAB Prov: 05/13/22PANTOPRAZOLE DR (PROTONIX) 40 MG PO DAILY 30 Days #30 TAB Prov: 05/13/22IBUPROFEN (MOTRIN) 800 MG PO TID INSULIN NPH HUMAN RECOM (HumuLIN N) 20 UNITS SUBQ BID AC Reported MedicationsMETOPROLOL TARTRATE (LOPRESSOR) 50 MG PO BID ASPIRIN 81 MG PO BID ZOLPIDEM (AMBIEN) 10 MG PO BEDTIME Additional Medical HistoryDiabetes, coronary artery diseaseAdditional Surgical HistoryMultiple toe amputations, transmetatarsal amputation, CABG c4Poobfsx status: Smoking status for patients 13 years old or older: Never SmokerAdditional Social HistoryPre-hospital services utilized: None Occupation/Profession: Full-time employed Education history: Return to work/school plan: return to work as able Marital status: Never Hobbies/leisure activities: Prior living situation: Home Living with: Alone at 1332RPT #:[id number] OF REPORTEDEmergency department toyjzi4802-14-48A45:00:00B.[id number] AVAvailable for patient yxptTAFCGIMNVSYLBO7782-95-37Y65:33:[address] [facility] 2022-05-15 08:24:00 [id number]T7n6 bY unPKPP33oNGdGdbZVedHesYxZQ92cX6M6105-75-16O1 8:24:715001-6119 [place] [address] PATIENT NAME: BRIGHT SALAZAR ADMIT DATE: 05/04/22ACCOUNT NO: [id number] ROOM NO: B.379 AGE: 56 REPORT TYPE: DISCHARGE SUMMARY SEX: M ADMITTING PHYSICIAN:Flako Elias MD ATTENDING PHYSICIAN:Flako Elias MD ADMISSION DATE: 05/04/2022 17:08:00DISCHARGE DATE: 05/11/2022 12:55:00 PHYSICAL MEDICINE AND REHABILITATION DISCHARGE SUMMARY REHABILITATION HOSPITAL COURSE: The patient made good gains with his mobility and self-care. Please see final care scores for functional status upon discharge. Appropriate DME equipment needs were arranged. He will follow up with his surgeon for further wound care needs and monitoring and ultimately to get set up for a prosthetic limb. DISPOSITION: The patient was discharged home. Dictated By: Flako Elias MD Date Dictated: 05/15/2022 08:24:21Date Transcribed: 05/15/2022 23:40:07KD/VEDA/Patric #: [id number] ID: [id number] by Flako Elias MD On 05/16/2022 08:23:48 AM at 0823 PATIENT NAME: BIRGHT SALAZAR ursqrou4928-44-48V10:40:00B.[id number] AVAvailable for patient vuvxFOVUSSLYONLJOF0125-42-00L49:24:[address] [facility] 2022-05-14 00:56:00 [id number]VXN9 [facility] pTw6SzFdkcEaNBaP+HpHlDYo3EuCOIJr3878-77-77A5 0:56:00 [facility]EM[facility] PROVIDER REPORTREPORT#:[id number] REPORT STATUS: SignedDATE:05/14/22 TIME: 55 PATIENT: BRIGHT SALAZAR UNIT #: [id number]#: [id number] ROOM/BED:AGE: 56 SEX: M PCP PHYS: No Primary or Family PhysicianSERVICE AUTHOR: Jose Martinez ETHICS INSTRUCTOR * ALL edits or amendments must be made on the electronic/computer document * Jose Martinez 05/14/22 0056:HPI-Extremity Prob Lower Free Text HPI NotesFree Text HPI NotesPatient is a 56-year-old male that comes to the emergency room with chief complaint of bleeding from site of recent amputation. 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 States he was discharged from rehab on Friday. States he had an accidental fall on Friday striking stump on the ground. States he alsohad a second fall today striking stump on ground. Reports oozing blood through dressing. States he called his surgeon, Dr. Herman, who advised he go to ER forevaluation. Patient states he is falling because he keeps trying to walk as if his leg is there. GeneralConfirmed Patient YesPatient Type New patientInitial Greet Date/Time 05/13/222018 Provider in TriageHPI Chief Complaint fall, stump injuryPE General/Const No acute distress PresentationChief Complaint Leg problem LHx Obtained From PatientOnset Occurred Days agoSymptom Duration Since onsetCaused by Accidental, Fall on groundLocation Leg LQuality PainfulSeverity: Current Pain level 6 out of 10Associated withDenies: Fever. Exacerbated by NothingRelieved by Nothing ContextImmunization Status General UnknownRecent Healthcare Previous surgery, Prior workupSimilar Sx Previous Yes Review of Systems ROS StatementsAll systems rev neg except as marked. Basic Review of SystemsBasic ROS EYES: No redness, ENT: No sore throat, RESP: No SOB, CV: No chest pain, GI: No abd pain/vomiting, : No dysuria/frequency, HEM: No bleeding/bruising,PSYCH: NL thought content Focused Review of SystemsConstitutionalDenies: Chills, Fatigue, Fever. MusculoskeletalReports: Extremity pain. Denies: Neck pain. SkinDenies: Erythema, Rash. NeurologicDenies: Bladder dysfunction, Bowel dysfunction, Headache. Past Medical History - AdultStated Complaint WOUND CARE TO LEFT BKAAllergiesCoded Allergies:No Known Allergies (05/13/22) Home MedicationsActive ScriptsHYDROcodone/APAP (HYDROcodone/APAP 10/325) 1 TAB PO Q8H PRN PRN PAIN SCALE 7-10 HYDROcodone/APAP (HYDROcodone/APAP 10/325) 1 TAB PO Q8H PRN PRN PAIN SCALE 7-10 #20 TABS Prov: 05/10/22HYDROcodone/APAP (HYDROcodone/APAP 7.5/325) 1 TAB PO Q6H PRN PRN pain HYDROcodone/APAP (HYDROcodone/APAP 7.5/325) 1 TAB PO Q6H PRN PRN pain #28 TABS Prov: 05/10/22CLOPIDOGREL (PLAVIX) 75 MG PO DAILY CLOPIDOGREL (PLAVIX) 75 MG PO DAILY #30 TAB Prov: 05/13/22GABAPENTIN (NEURONTIN) 800 MG PO TID GABAPENTIN (NEURONTIN) 800 MG PO TID #180 CAP Prov: 05/13/22PRAVASTATIN (PRAVACHOL) 20 MG PO BEDTIME PRAVASTATIN (PRAVACHOL) 20 MG PO BEDTIME #30 TAB Prov: 05/13/22PANTOPRAZOLE DR (PROTONIX) 40 MG PO DAILY 30 Days #30 TAB Prov: 05/13/22IBUPROFEN (MOTRIN) 800 MG PO TID INSULIN NPH HUMAN RECOM (HumuLIN N) 20 UNITS SUBQ BID AC Discontinued ScriptsPRAVASTATIN (PRAVACHOL) 20 MG PO BEDTIME PRAVASTATIN (PRAVACHOL) 20 MG PO BEDTIME #30 TAB Prov: 05/04/22 DC: 05/13/22 1317 GABAPENTIN (NEURONTIN) 800 MG PO TID HYDROcodone/APAP (HYDROcodone/APAP 10/325) 2 TAB PO Q4H PRN PRN BREAKTHROUGH PAIN MEROPENEM (MERREM) 500 MG IV Q6H PANTOPRAZOLE DR (PROTONIX) 40 MG PO DAILY Reported MedicationsMETOPROLOL TARTRATE (LOPRESSOR) 50 MG PO BID ASPIRIN 81 MG PO BID ZOLPIDEM (AMBIEN) 10 MG PO BEDTIME Discontinued Reported MedicationsCLOPIDOGREL (PLAVIX) 75 MG PO DAILY Review of Nursing Notes Unavailable at this timeAdditional Medical HistoryDiabetes, coronary artery diseaseAdditional Surgical HistoryMultiple toe amputations, transmetatarsal amputation, CABG [id number] Family HistoryFamily history of diabetes, no bleeding or clotting dyscrasiasSmoking status for patients 13 years old or older: Current every day smokerAdditional Social HistoryPre-hospital services utilized: None Occupation/Profession: Full-time employed Education history: Return to work/school plan: return to work as able Marital status: Never Hobbies/leisure activities: Prior living situation: Home Living with: Alone Physical Exam Vital SignsVital SignsFirst Documented: Result Date Time Pulse Ox 100 05/13 2018 B/P 159/80 05/13 2018 B/P Mean 106 05/13 2018 O2 Delivery Room air 05/13 2018 Temp 98.4 05/13 2018 Pulse 95 05/13 2018 Resp 18 05/13 2018 Last Documented: Result Date Time Pulse Ox 100 05/13 2018 B/P 159/80 05/13 2018 B/P Mean 106 05/13 2018 O2 Delivery Room air 05/13 2018 Temp 98.4 05/13 2018 Pulse 95 05/13 2018 Resp 18 05/13 2018 Review of Vital Signs Reviewed Basic Physical ExamBasic PE GEN: Well appearing/NAD, HEAD: Atraumatic/NC, EYES: PERRL, conj clear, ENT: Membranes moist, NECK: Supple, RESP: No resp distress, CV: Reg rate rhythm, ABD: Soft/non-tender, UP EXT: No gross abnormal, SKIN: No rashes, warm/dry, NEURO: alert oriented, NEURO: gross movement NL, PSYCH: NL thought content Focused PEMS Lower Extrem Lower Ext/Pelvis/MS No erythema, Neurologic intact, Vascular intact Text/Dict NotesLeft leg BKA. [place] intact. Small amount of oozing through jia. Interpretation Diagnostics Lab Results InterpretationResultsLaboratory Tests 05/13/222129:[Embedded Image Not Available]Laboratory Tests: 05/13 2130 Chemistry Sodium (133 - 144 mmol/L) 137.0 Potassium (3.5 - 5.1 mmol/L) 3.8 Chloride (95 - 105 mmol/L) 106 H Carbon Dioxide (21 - 32 mmol/L) 26 Anion Gap (4.0 - 15.0 GAP calc) 5.0 BUN (7 - 18 MG/DL) 20 H Creatinine (0.55 - 1.30 MG/DL) 0.90 Glomerular Filtr Rate (>60 estGFR) 100 Glucose (70 - 110 MG/DL) 135 H Calcium (8.5 - 10.1 MG/DL) 9.3 Total Bilirubin (0.00 - 1.00 MG/DL) 0.21 Direct Bilirubin (0.00 - 0.30 MG/DL) 0.10 Indirect Bilirubin (0.2 - 1.3 MG/DL) 0.11 L AST (15 - 37 Unit/L) 18 ALT (12 - 78 Unit/L) 38 Total Alk Phosphatase (45 - 117 Unit/L) 110 Total Protein (6.4 - 8.2 G/DL) 8.6 H Albumin (3.4 - 5.0 G/DL) 3.2 L Albumin/Globulin Ratio (1.2 - 2.2 RATIO) 0.6 L Specimen Appearance (1 NORMAL Index/DL) 1 NORMAL <2 MG Specimen Hemolysis (1 NORMAL Index/DL) 1 NORMAL <10 MG Coagulation PT (9.4 - 12.5 SECONDS) 13.7 H INR (0.88 - 1.13 INR Unit) 1.22 H PTT (Nga) (24 - 37.7 SECONDS) 34.5 Hematology WBC (4.1 - 12.1 K/mm3) 9.6 RBC (3.8 - 5.5 M/mm3) 4.90 Hgb (10.6 - 15.8 G/DL) 13.4 Hct (31.8 - 47.4 %) 40.8 MCV (80.1 - 101.1 fL) 83.3 MCH (25.3 - 35.3 pg) 27.3 MCHC (32.7 - 35.1 G/DL) 32.8 RDW (12.2 - 16.4 %) 13.6 Plt Count (155 - 337 K/mm3) 415 H MPV (7.6 - 10.4 fL) 9.6 Gran % (37.8 - 82.6 %) 52.4 Lymph % (Auto) (14.1 - 45.4 %) 34.0 Williams % (Auto) (2.5 - 11.7 %) 11.7 Eos % (Auto) (0.0 - 6.2 %) 0.8 Baso % (Auto) (0.0 - 2.6 %) 0.8 Gran # (2.0 - 13.7 k/mm3) 5.03 Lymph # (Auto) (0.6 - 3.8 K/mm3) 3.27 Williams # (Auto) (0.11 - 0.59 K/mm3) 1.12 H Eos # (Auto) (0.0 - 0.4 K/mm3) 0.08 Baso # (Auto) (0.0 - 0.1 K/mm3) 0.08 Immature Gran % (0.0 - 2.0 %) 0.3 Nucleated RBC % (0.0 - 1.0 /100WBC%) 0.0 Nucleated RBCs # (0.00 - 0.05 K/mm3) 0.00 Recent Impressions:RADIOLOGY - XR TIBIA/FIBULA 2 V LT 05/13 2050 Report Impression - Status: SIGNED Entered: 05/13/20222100 IMPRESSION: No acute radiographic abnormalities.Impression By: [email or web address] - Regino Ramirze MD Re-Evaluation MDM Free Text MDM NotesFree Text MDM NotesX-ray unremarkable. Patient has small amount of oozing there are jia on left BKA site. Dressing applied with quick clot. Patient's pain treated in theemergency room. Patient can be discharged with follow-up with Dr. Herman. All questions answered. Return precautions given. Patient agrees with plan of care. ED CourseMedication(s) OrderedMedication(s) Ordered:Central Nervous System Agents Sig/Ekta Start time Last Medication Dose Route Stop Time Status Admin Morphine Sulfate 4 MG X1ED STA 05/14 51 DC 05/14 IV 05/14 52 005 Hydrocodone Bitart/ 1 TAB X1ED STA 05/14 41 DC 05/14 Acetaminophen PO 05/14 42 0053 Morphine Sulfate 4 MG X1ED STA 05/14 004 CAN IM 05/14 42 Patient Discharge Departure Vital Signs/ConditionVital SignsFirst Documented: Result Date Time Pulse Ox 100 05/13 2018 B/P 159/80 05/13 2018 B/P Mean 106 05/13 2018 O2 Delivery Room air 05/13 2018 Temp 98.4 05/13 2018 Pulse 95 05/13 2018 Resp 18 05/13 2018 Last Documented: Result Date Time Pulse Ox 100 05/13 2018 B/P 159/80 05/13 2018 B/P Mean 106 05/13 2018 O2 Delivery Room air 05/13 2018 Temp 98.4 05/13 2018 Pulse 95 05/13 2018 Resp 18 05/13 2018 All vital signs available at the time of this entry have been reviewed. Clinical ImpressionClinical ImpressionPrimary Impression: FallSecondary Impressions: Bleeding from wound Disposition DecisionDischarge )( Discharged to Home Yes )( Time 0131 )( Date 05/14/22 Discharge/Care PlanCounseled Regarding Diagnosis, Lab results, Imaging studies, Need for follow-up,When to return to EDPatient Instructions ED Post Op Wound Check, BleedingDeparture FormsWORK/SCHOOL EXCUSE VARIABLE Discharge NoteI have spoken with the patient and/or caregivers. I have explained the patient'scondition, diagnoses and treatment plan based on the information available to meat this time. I have answered the patient's and/or caregiver's questions and addressed any concerns. The patient and/or caregivers have as good an understanding of the patient's diagnosis, condition and treatment plan as can beexpected at this point. The vital signs have been stable. The patient's condition is stable and appropriate for discharge from the emergency department. The patient will pursue further outpatient evaluation with the primary care physician or other designated or consulting physician as outlined in the discharge instructions. The patient and/or caregivers are agreeable to this planof care and follow-up instructions have been explained in detail. The patient and/or caregivers have received these instructions in written format and have expressed an understanding of the discharge instructions. The patient and/or caregivers are aware that any significant change in condition or worsening of symptoms should prompt an immediate return to this or the closest emergency department or a call to 911. Dax Tejeda 05/17/22 4557:Re-Evaluation MDM Free Text MDM NotesFree Text MDM Notes Pt seen and eval with midlevelAgree with chart as documented unless noted otherwise by mePt well appearing, non toxicTaking PO and ambulatory in EDStable for dispo home with close f/uPt agreeable with plan Patient Discharge Departure Discharge/Care PlanReferralsProvider Referral: Dhiraj Herman MD Address: [address] [place] [address] [address] [place] [phone] Supervising Physician Note MidLv/Doc Saw Pt 2The PA/ETHICS INSTRUCTOR has seen the patient and I have performed this visit along with the involvement of the PA/ETHICS INSTRUCTOR. I agree with the PA/checker dump grounds findings and plan. I have performed all aspects of MDM as documented including: evaluation of the patient/patient's condition(s), review and analysis of available data, and determinationof risk of patient management decisions. at 0240 at 2358RPT #:[id number] OF REPORTEDEmergency department [id number]:56:00B.[id number] AVAvailable for patient [id number]:40:[address] [facility] 2022-05-13 20:20:00 [id number]+ySrElxOVeNvSZ 8g9p 5mTaOnVMJC8uej/0NmXT8a3CtYceGO1x0393-97-41B7 0:20:00 [facility] PROVIDER REPORTREPORT#:[id number] REPORT STATUS: SignedDATE:05/13/22 TIME: 2019 PATIENT: BRIGHT SALAZAR UNIT #: [id number]#: [id number] ROOM/BED:AGE: 56 SEX: M PCP PHYS: No Primary or Family PhysicianSERVICE AUTHOR: Jose Martinez ETHICS INSTRUCTOR * ALL edits or amendments must be made on the electronic/computer document * Provider in Triage - Adult Provider in TriageInitial Greet Date/Time 05/13/222018 Karsten LindaI have greeted and performed a focused rapid initial assessment of this patient.A comprehensive ED assessment and evaluation of the patient, analysis of all test results, and completion of the medical decision-making process will be conducted by additional ED providers. HPI Chief Complaint fall, stump injuryROSDenies: Fever, Chest pain. PE General/Const No acute distress MSE Not CompleteThe medical screening exam is not complete. Further evaluation and/or treatment is required. The patient will be re-directed to the emergency department. PMH-Provider in TriageStated Complaint WOUND CARE TO LEFT AKAAllergiesCoded Allergies:No Known Allergies (05/13/22) Home MedicationsActive ScriptsHYDROcodone/APAP (HYDROcodone/APAP 10/325) 1 TAB PO Q8H PRN PRN PAIN SCALE 7-10 HYDROcodone/APAP (HYDROcodone/APAP 10/325) 1 TAB PO Q8H PRN PRN PAIN SCALE 7-10 #20 TABS Prov: 05/10/22HYDROcodone/APAP (HYDROcodone/APAP 7.5/325) 1 TAB PO Q6H PRN PRN pain HYDROcodone/APAP (HYDROcodone/APAP 7.5/325) 1 TAB PO Q6H PRN PRN pain #28 TABS Prov: 05/10/22CLOPIDOGREL (PLAVIX) 75 MG PO DAILY CLOPIDOGREL (PLAVIX) 75 MG PO DAILY #30 TAB Prov: 05/13/22GABAPENTIN (NEURONTIN) 800 MG PO TID GABAPENTIN (NEURONTIN) 800 MG PO TID #180 CAP Prov: 05/13/22PRAVASTATIN (PRAVACHOL) 20 MG PO BEDTIME PRAVASTATIN (PRAVACHOL) 20 MG PO BEDTIME #30 TAB Prov: 05/13/22PANTOPRAZOLE DR (PROTONIX) 40 MG PO DAILY 30 Days #30 TAB Prov: 05/13/22IBUPROFEN (MOTRIN) 800 MG PO TID INSULIN NPH HUMAN RECOM (HumuLIN N) 20 UNITS SUBQ BID AC Discontinued ScriptsPRAVASTATIN (PRAVACHOL) 20 MG PO BEDTIME PRAVASTATIN (PRAVACHOL) 20 MG PO BEDTIME #30 TAB Prov: 05/04/22 DC: 05/13/22 1317 GABAPENTIN (NEURONTIN) 800 MG PO TID HYDROcodone/APAP (HYDROcodone/APAP 10/325) 2 TAB PO Q4H PRN PRN BREAKTHROUGH PAIN MEROPENEM (MERREM) 500 MG IV Q6H PANTOPRAZOLE DR (PROTONIX) 40 MG PO DAILY Reported MedicationsMETOPROLOL TARTRATE (LOPRESSOR) 50 MG PO BID ASPIRIN 81 MG PO BID ZOLPIDEM (AMBIEN) 10 MG PO BEDTIME Discontinued Reported MedicationsCLOPIDOGREL (PLAVIX) 75 MG PO DAILY Additional Medical HistoryDiabetes, coronary artery diseaseAdditional Surgical HistoryMultiple toe amputations, transmetatarsal amputation, CABG [id number] Social HistoryPre-hospital services utilized: None Occupation/Profession: Full-time employed Education history: Return to work/school plan: return to work as able Marital status: Never Hobbies/leisure activities: Prior living situation: Home Living with: Alone at [address]RPT #:[id number] OF REPORTEDEmerashley county medical center department [id number]:20:00B.[id number] AVAvailable for patient lcoxLGJOEIAPSASGQT6279-02-52J67:57:[address] [facility] 2022-05-11 10:22:00 [id number] 9Iqd UrIEnEJ1fMsQBr1wSDhfP568Oo0f9RS30035-24-73F6 0:22:00 [facility] ([facility] SYSTEMHospitalist Progress NoteREPORT#:[id number] REPORT STATUS: SignedDATE:05/11/22 TIME: 1022 PATIENT: BRIGHT SALAZAR UNIT #: [id number]#: [id number] ROOM/BED: [facility]-WDOB: [birth year] AGE: 56 SEX: M ATTEND: Flako Elias [facility] AUTHOR: Arpit Pressley MD * ALL edits or amendments must be made on the electronic/computer document * SubjectiveChief complaint:Admission for therapy Free Text Subj NotesFree Text Subj Notes:no acute complaints Objective GeneralVS/I O:Vital Signs: Date Time Temp Pulse Resp B/P B/P Pulse O2 O2 Flow FiO2 Mean Ox Delivery Rate 05/11 08 97.7 67 14 145/83 103.6 100 Room air 05/10 2002 98.1 71 14 144/75 97.6 96 Room air 24 hour I O ending at 0700: 05/11 0700 05/10 1900 Intake Total Output Total 700 Balance -700 Number 1 Bowel Movements Number 0 Incontinent Voids Number Voids 3 Output, Urine 700 PATIENT WEIGHT: Weight (lb): 175Weight (oz): 7.81Weight (kg): 79.600 Medications:Active Meds + DC'd Last 24 HrsLidocaine (LIDODERM PATCH) 1 PATCH DAILY TRANSDERM Hydrocortisone (HYTONE 1% 30 GM CREAM) 1 APPLIC BID TOPICAL Loperamide HCl (IMODIUM) 2 MG Q6H PRN PRN PO Polyethylene Glycol (MIRALAX) 17 GM DAILY PRN PRN PO Tramadol HCl (ULTRAM) 50 MG Q6H PRN PRN PO Clopidogrel Bisulfate (PLAVIX) 75 MG DAILY PO Enoxaparin Sodium (LOVENOX) 40 MG Q24H SUBQ Insulin Human NPH (HumuLIN N) 20 UNIT BID AC SUBQ Pantoprazole (PROTONIX) 40 MG AC BK PO Gabapentin (NEURONTIN) 800 MG TID PO Ibuprofen (ADVIL) 800 MG TID PO Aspirin (ASPIRIN) 81 MG BID PO Metoprolol Tartrate (LOPRESSOR) 50 MG BID PO Pravastatin Sodium (PRAVASTATIN SODIUM) 20 MG BEDTIME PO Zolpidem Tartrate (AMBIEN) 10 MG BEDTIME PO Hydrocodone Bitart/Acetaminophen (NORCO 10/325 TABLET) 2 TAB Q4H PRN PRN PO Dextrose/Water (DEXTROSE 50%-WATER) 25 ML ASDIR PRN IV (CKD) Glucagon (GLUCAGON) 1 MG ASDIR PRN IM Glucose Polymer (GLUTOSE) 15 GM ASDIR PRN PO Insulin Human Lispro (HUMALOG) See Admin Criteria ASDIR PRN SUBQ Ondansetron HCl (ZOFRAN ODT) 4 MG Q8H PRN PRN PO ResultsFindings/Data:Laboratory Tests 05/11 05/11 05/11 05/10 05/10 1103 0800 0454 1959 1629 Chemistry POC Glucose (70 - 119 MG/DL) 134 H 123 H 157 H 191 H 145 H Results: labs reviewed, vital signs reviewed Diagnosis, Assessment PlanHospital course to date:Diabetic foot infection--Pt had had multiple procedures and 6 weeks IV abx prior to this hospitalization with persistent issues. Ortho was consulted and pt is s/p BKA. 05/01/22 went for final I D and delayed primary closure. Cw abx as per ID. --PT/OT Acute Pain: Cw [facility], NSAIDs, gabapentin Uncontrolled DMII [A1C 10.1]--BG now well controlled--Cw current insulin regimen--Cw SSI CAD s/p CABG 2016: Cw ASA, Plavix, statin, BBPAD: Cw above meds DVT ppx: LovenoxDispo: Cw PT/Patti pertinant labs, Imaging, EKG, telemetry data,and medical records are reviewed by me personally. I have discussed the available findings, initial diagnosis and related differentials with the patient/day care center director including RN. All concerns and questions are answered to the best of my abilities based on theavailable data.I have initiated the plan of care based on preliminary diagnosis,requested appopriate consultations with labs/imagings. Patient/day care center director verbalizes understanding of the plan of care. Free Text DxA P NotesFree text DxA P notes:Diabetic foot infection--Pt had had multiple procedures and 6 weeks IV abx prior to this hospitalization with persistent issues. Ortho was consulted and pt is s/p TERRY. 05/01/22 went for final I D and delayed primary closure. Cw abx as per ID. --PT/OT Acute Pain: Cw [facility], NSAIDs, gabapentin Uncontrolled DMII [A1C 10.1]--BG now well controlled--Cw current insulin regimen--Cw SSI CAD s/p CABG 2016: Cw ASA, Plavix, statin, BBPAD: Cw above meds DVT ppx: LovenoxDispo: Cw PT/OT All pertinant labs, Imaging, EKG, telemetry data,and medical records are reviewed by me personally. I have discussed the available findings, initial diagnosis and related differentials with the patient/day care center director including RN. All concerns and questions are answered to the best of my abilities based on theavailable data.I have initiated the plan of care based on preliminary diagnosis,requested appopriate consultations with labs/imagings. Patient/day care center director verbalizes understanding of the plan of care. at 1258 RPT #:[id number] OF REPORTPRProgress [id number]:22:00B.[id number] Available for patient qvleYGDENKIHVULLSA6560-93-66C49:58:[address] [facility] 2022-05-10 14:01:00 [id number]+Ba9tJPdLRG/7o04HdB XkZP ZmdloP8uepaohWgNFMiven4xaWdimFH/3894-13-17X5 4:01:00 [facility])Rehab Progress NoteREPORT#:[id number] REPORT STATUS: SignedDATE:05/10/22 TIME: 1401 PATIENT: BRIGHT SALAZAR UNIT #: [id number]#: [id number] [facility]GE: 56 SEX: M ATTEND: Flako Elias [facility] AUTHOR: Hugo Harrington APRN * ALL edits or amendments must be made on the electronic/computer document * See AddendumHugo Harrington 05/10/22 1401:SubjectiveChief complaint:Impaired mobility and self-careHistory of present illness:Seen at bedside. Requesting to go home sooner than Friday if possible as he states he feels confident in doing his care. Objective GeneralVS:Vital Signs: Date Time Temp Pulse Resp B/P B/P Pulse O2 O2 Flow FiO2 Mean Ox Delivery Rate 05/10 709 97.7 64 18 152/78 103.0 97 Room air 05/096 73 144/70 94 05/09 2002 98.2 67 18 167/81 109.3 98 Room air PATIENT WEIGHT: Weight (lb): 175Weight (oz): 7.81Weight (kg): 79.600 Physical ExamPsych: euthymic mood, normal affectHEENT: anicteric, mucosal membranes moistNeck: non-tender, suppleRespiratory: normal inspiratory effortAbdomen: softMusculoskeletal - general: Musculoskeletal - general: no atrophy, L residual limb dressing d/iNeuro/RN MATERNITY: alert, normal speech ResultsFindings/Data:Laboratory Tests: 05/10 05/10 05/09 05/09 1105 0531 2000 1625 Chemistry POC Glucose (70 - 119 MG/DL) 145 H 136 H 110 101 Diagnosis, Assessment PlanProblem List/A P: 1. Hyperglycemia 2. Diabetic foot infection 3. Diabetes 4. Status post below-knee amputation of left lower extremity Free Text A P:Rehab Assessment and Plan: PT: for bed mobility, transfer training, wheelchair mobility, hop gait training with AD, balance training, endurance improvement, LE strengthening, ROM improvementOT: for ADL and transfer trainingPrecautions: NWB LLE MOd I/Ind with all care. Ind with all transfers. Left diabetic foot infection: Status post left transtibial amputation 04/27/2022nd I D with revision 05/01/[address] Herman. NWB LLE. Antibiotic per ID.05/07: Antitibiotic has been discontinued per ID.Pt to follow up with Dr Herman 3 weeks post op for staple removal and wound check. This would be around 05/22. Pain: Nociceptive and neuropathic. NSAID, gabapentin, PRN Ultram, PRN Norco05/08: Discussed with pt what he can do to decrease neuropathic pain.05/09: Continue manual desensitization DMT2: A1c 10.1. Continue dietary and medical management on insulin CAD/PAD: ASA, Plavix, statin Bowel: Reports loose stools on abx. MiraLAX PRN107/06: Loose stools likely secondary to antibiotic side effect. Imodium as needed ydfdgmn42/30: IV antibiotics were discontinued on 05/06. Stools are slowing down.questionable c diff. ID ordered C diff sample to be taken. 05/09: No longer having loose frequent stools today DVT/GI prophy: Lovenox/PPI Medical management per hospitalist client relationship consultant, appreciate management. Dispo: Anticipated discharge date of 05/13 or sooner if goals met05/10: will discharge home 05/11 as pt's w/c is arriving today and he has met allgoals. Rehab attestation:Face to face exam completed. Treatment plan discussed with patient. Meets continued stay criteria. Agree with interdisciplinary treatment plan. Flako Elias 05/10/22 1541:Attestations Physician AttestationAgree w/findings plan:I have personally interviewed and examined the patient. All charts, labs, and imaging studies were reviewed. I agree with the PA/ETHICS INSTRUCTOR's findings, exam, and plan. at 1403 at 1541 Addendum 1: 05/10/22 1542 by Flako Elias MD Over 35 min spent on this encounter with >50% of time spent counseling patient on rehab needs, rehab prognosis, coordinating progression of care and projectingdischarge plan, time spent in med reconciliation. at 1542 RPT #:[id number] OF REPORTPRProgress [id number]:01:00B.[id number] Available for patient dgumKWZUBIMHEMDMGO5740-63-72W75:03:[address] [facility] 2022-05-10 12:56:00 [id number] oSHV 9sv6jEHFZf314sDh+pW3gltIUF3ozLcz5027-22-46B0 2:56:626289-[address] [place], [place] [address] PATIENT NAME: BRIGHT SALAZAR ADMIT DATE: 05/04/22ACCOUNT NO: [id number] ROOM NO: [facility] AGE: 56 REPORT TYPE: PROGRESS NOTE SEX: M ADMITTING PHYSICIAN:Flako Elias MD ATTENDING PHYSICIAN:Flako Elias MD DATE: 05/10/2022 INFECTIOUS DISEASE PROGRESS NOTE TIME: 1255 hours. SUBJECTIVE: The patient is doing okay with no complaints. He is sitting in awheelchair an he will hopefully, be going home soon. OBJECTIVE:VITAL SIGNS: Noted.GENERAL: He is lying quietly in his wheelchair, awake, alert, nontoxic. Norespiratory distress.EXTREMITIES: His left BKA site is dressed. Dressing was not removed. LABORATORY DATA: The patient has no new labs or cultures. He is offantimicrobial therapy. ASSESSMENT:1. A 56-year-old male.2. Status post left BKA.3. Clinically stable.4. Diarrhea, resolved. RECOMMENDATION: At present time, the patient is stable and doing well. He iscleared from my standpoint to be discharged with no antimicrobial therapywhenever that can be arranged for him. All of his questions were answered. Dictated By: Jacquie De La Garza MD Date Dictated: 05/10/2022 12:56:18Date Transcribed: 05/10/2022 14:09:42CC/GUSYrisb #: [id number] ID: [id number] and Edited by Jacquie De La Garza MD On 05/11/22 8:23:06 AM PATIENT NAME: BRIGHT SALAZAR at 0827 PATIENT NAME: BRIGHT SALAZAR [id number]:09:00B.[id number] vailable for patient acpsTGWNHFGQYXSIHL5836-56-93U66:27:[address] [facility] 2022-05-09 12:56:00 [id number]/9uTTenPxztq XKjf6HGFf03C54CTeOd9WcVkCeVlDpaj8189-69-55A1 2:56:00 [facility] ([facility] HOSPITAL)Hospitalist Progress NoteREPORT#:[id number] REPORT STATUS: SignedDATE:05/09/22 TIME: 1256 PATIENT: BRIGHT SALAZAR UNIT #: [id number]#: [id number] ROOM/BED: [facility]-WDOB: [birth year] AGE: 56 SEX: M ATTEND: Flako Elias [facility] AUTHOR: Jimmy Mark MD * ALL edits or amendments must be made on the electronic/computer document * SubjectiveChief complaint:Admission for therapy Diagnosis, Assessment PlanHospital course to date:Diabetic foot infection--Pt had had multiple procedures and 6 weeks IV abx prior to this hospitalization with persistent issues. Ortho was consulted and pt is s/p BKA. On05/01/22 went for final I D and delayed primary closure. Cw abx as per ID. --PT/OT Acute Pain: Cw [facility], NSAIDs, gabapentin Uncontrolled DMII [A1C 10.1]--BG now well controlled--Cw current insulin regimen--Cw SSI CAD s/p CABG 2016: Cw ASA, Plavix, statin, BBPAD: Cw above meds DVT ppx: LovenoxDispo: Cw PT/OTAll pertinant labs, Imaging, EKG, telemetry data,and medical records are reviewed by me personally. I have discussed the available findings, initial diagnosis and related differentials with the patient/day care center director including RN. All concerns and questions are answered to the best of my abilities based on theavailable data.I have initiated the plan of care based on preliminary diagnosis,requested appopriate consultations with labs/imagings. Patient/day care center director verbalizes understanding of the plan of care. Free Text DxA P NotesFree text DxA P notes:Diabetic foot infection--Pt had had multiple procedures and 6 weeks IV abx prior to this hospitalization with persistent issues. Ortho was consulted and pt is s/p BKA. On05/01/22 went for final I D and delayed primary closure. Cw abx as per ID. --PT/OT Acute Pain: Cw [facility], NSAIDs, gabapentin Uncontrolled DMII [A1C 10.1]--BG now well controlled--Cw current insulin regimen--Cw SSI CAD s/p CABG 2016: Cw ASA, Plavix, statin, BBPAD: Cw above meds DVT ppx: LovenoxDispo: Cw PT/OTAll pertinant labs, Imaging, EKG, telemetry data,and medical records are reviewed by me personally. I have discussed the available findings, initial diagnosis and related differentials with the patient/day care center director including RN. All concerns and questions are answered to the best of my abilities based on theavailable data.I have initiated the plan of care based on preliminary diagnosis,requested appopriate consultations with labs/imagings. Patient/day care center director verbalizes understanding of the plan of care. at [facility] RPT #:[id number] OF REPORTPRProgress [id number]:56:00B.[id number] Available for patient sfwtQWRELOXSHYLCFJ6698-16-29P33:57:[address] [facility] 2022-05-09 10:42:00 [id number]/[id number] oRvW o5h4xxaqleSxyMAysowFerL0Dbk4wJdz9093-18-90P6 0:42:[id number] [place] [address] PATIENT NAME: BRIGHT SALAZAR ADMIT DATE: 05/04/22ACCOUNT NO: [id number] ROOM NO: [facility] AGE: 56 REPORT TYPE: PROGRESS NOTE SEX: M ADMITTING PHYSICIAN:Flako Elias MD ATTENDING PHYSICIAN:Flako Elias MD DATE: 05/09/2022 INFECTIOUS DISEASE PROGRESS NOTE TIME: 1041 hours. SUBJECTIVE: Yesterday, the nurse notified me that he had a formed bowelmovement, so a stool for C. difficile cannot be performed. I canceled the C difficile study and I canceled the oral vancomycin. I canceled all of his isolation as well. The patient was seen in the gym. He has no new issues or complaints. I confirmed with him that his stomach is doing a lot better today and he has no more diarrhea. OBJECTIVE:VITAL SIGNS: Noted.GENERAL: He is sitting in the gym working with a physical therapist. He isawake, alert, and nontoxic.LUNGS: Clear to auscultation bilaterally. first assistant manager's notes from yesterday are in the computer and noted. He is offall antimicrobial therapy. ASSESSMENT:1. A 56-year-old male.2. Status post left below-knee amputation.3. Diarrhea has resolved.4. Polymicrobial foot infection, now amputated. RECOMMENDATIONS: At the present time, the patient is stable and doing well. Heis cleared from my standpoint for discharge whenever he is cleared by all otherphysicians as well. All of his questions were answered. Dictated By: Jacquie De La Garza MD Date Dictated: 05/09/2022 10:42:25Date Transcribed: 05/09/2022 10:59:15CC/SHY/Kartik #: [id number] PATIENT NAME: BRIGHT SALAZAR Receipt ID: [id number] and Edited by Jacquie De La Garza MD On 05/10/22 11:00:13 AM at 1101 PATIENT NAME: BRIGHT SALAZAR [id number]:59:00B.[id number] vailable for patient rzjxKSFLGROWIBTTYW6526-30-42J94:02:[address] [facility] 2022-05-09 10:05:00 [id number]iTU kO4h 3WcesHhPpvQvvrKyA+HLMYuV8jHbEZM96633-97-39W6 0:05:00 [facility] [place] ([facility]Rehab Progress NoteREPORT#:[id number] REPORT STATUS: SignedDATE:05/09/22 TIME: 1005 PATIENT: BRIGHT SALAZAR UNIT #: [id number]#: [id number] [facility]GE[facility] 56 SEX: M ATTEND: Flako Elias MDADM AUTHOR: Flako Elias MD * ALL edits or amendments must be made on the electronic/computer document * SubjectiveChief complaint:Impaired mobility and self-careHistory of present illness:No bowel movement since yesterday Objective GeneralVS:Vital Signs: Date Time Temp Pulse Resp B/P B/P Pulse O2 O2 Flow FiO2 Mean Ox Delivery Rate 05/09 0734 97.7 66 18 134/70 91.6 96 05/08 1941 97.7 92 18 132/72 91.7 96 Room air PATIENT WEIGHT: Weight (lb): 175Weight (oz): 7.81Weight (kg): 79.600 Physical ExamPsych: euthymic mood, normal affectHEENT: anicteric, mucosal membranes moistNeck: non-tender, suppleRespiratory: normal inspiratory effortMusculoskeletal - general: Musculoskeletal - general: no atrophy, L residual limb dressing d/iNeuro/RN MATERNITY: alert, normal speech Diagnosis, Assessment PlanProblem List/A P: 1. Hyperglycemia 2. Diabetic foot infection 3. Diabetes 4. Status post below-knee amputation of left lower extremity Free Text A P:Rehab Assessment and Plan: PT: for bed mobility, transfer training, wheelchair mobility, hop gait training with AD, balance training, endurance improvement, LE strengthening, ROM improvementOT: for ADL and transfer trainingPrecautions: NWB LLE Left diabetic foot infection: Status post left transtibial amputation 04/27/2022nd I D with revision 05/01/[address] Herman. NWB LLE. Antibiotic per ID.05/07: Antitibiotic has been discontinued per ID.Pt to follow up with Dr Herman 3 weeks post op for staple removal and wound check. This would be around 05/22. Pain: Nociceptive and neuropathic. NSAID, gabapentin, PRN Ultram, PRN Norco05/08: Discussed with pt what he can do to decrease neuropathic pain.05/09: Continue manual desensitization DMT2: A1c 10.1. Continue dietary and medical management on insulin CAD/PAD: ASA, Plavix, statin Bowel: Reports loose stools on abx. MiraLAX PRN107/06: Loose stools likely secondary to antibiotic side effect. Imodium as needed wttlmym74/30: IV antibiotics were discontinued on 05/06. Stools are slowing down.questionable c diff. ID ordered C diff sample to be taken. 05/09: No longer having loose frequent stools today DVT/GI prophy: Lovenox/PPI Medical management per hospitalist client relationship consultant, appreciate management. Dispo: Anticipated discharge date of 05/13 or sooner if goals met Rehab attestation:Face to face exam completed. Treatment plan discussed with patient. Meets continued stay criteria. Agree with interdisciplinary treatment plan. at [facility] RPT #:[id number] OF REPORTPRProgress [id number]:05:00B.[id number] Available for patient ltfeCDTEMHECUJVUGA8263-62-03H04:07:47 [facility] 20:11:00 [id number]/kT+GR+1qdbLE855 ry0a PK8mCLk15G2DhY49Uq550samySY0+LyQ3162-95-57I3 0:11:00 [facility] ([facility] SYSTEMHospitalist Progress NoteREPORT#:[id number] REPORT STATUS: SignedDATE:05/08/22 TIME: 2010 PATIENT: BRIGHT SALAZAR UNIT #: [id number]#: [id number] [facility] AGE: 56 SEX: M ATTEND: Flako Elias [facility] AUTHOR: Jimmy Mark MD * ALL edits or amendments must be made on the electronic/computer document * SubjectiveChief complaint:Admission for therapy Objective GeneralVS/I O:Vital Signs: Date Time Temp Pulse Resp B/P B/P Pulse O2 O2 Flow FiO2 Mean Ox Delivery Rate 05/08 1941 97.7 92 18 132/72 91.7 96 Room air 05/08 07 97.7 71 16 152/79 103.3 98 24 hour I O ending at 0700: 05/08 0700 05/07 1900 Intake Total 300 480 Output Total Balance 300 480 Intake, Oral 300 Intake, Oral 480 Supplement PATIENT WEIGHT: Weight (lb): 175Weight (oz): 7.81Weight (kg): 79.600 Medications:Active Meds + DC'd Last 24 HrsVancomycin HCl (VANCOMYCIN ORAL) 125 MG QID PO (DC) Hydrocortisone (HYTONE 1% 30 GM CREAM) 1 APPLIC BID TOPICAL Loperamide HCl (IMODIUM) 2 MG Q6H PRN PRN PO (DA) Polyethylene Glycol (MIRALAX) 17 GM DAILY PRN PRN PO Tramadol HCl (ULTRAM) 50 MG Q6H PRN PRN PO Clopidogrel Bisulfate (PLAVIX) 75 MG DAILY PO Enoxaparin Sodium (LOVENOX) 40 MG Q24H SUBQ Insulin Human NPH (HumuLIN N) 20 UNIT BID AC SUBQ Pantoprazole (PROTONIX) 40 MG AC BK PO Gabapentin (NEURONTIN) 800 MG TID PO Ibuprofen (ADVIL) 800 MG TID PO Aspirin (ASPIRIN) 81 MG BID PO Metoprolol Tartrate (LOPRESSOR) 50 MG BID PO Pravastatin Sodium (PRAVASTATIN SODIUM) 20 MG BEDTIME PO Zolpidem Tartrate (AMBIEN) 10 MG BEDTIME PO Hydrocodone Bitart/Acetaminophen (NORCO 10/325 TABLET) 2 TAB Q4H PRN PRN PO Dextrose/Water (DEXTROSE 50%-WATER) 25 ML ASDIR PRN IV (CKD) Glucagon (GLUCAGON) 1 MG ASDIR PRN IM Glucose Polymer (GLUTOSE) 15 GM ASDIR PRN PO Insulin Human Lispro (HUMALOG) See Admin Criteria ASDIR PRN SUBQ Ondansetron HCl (ZOFRAN ODT) 4 MG Q8H PRN PRN PO Diagnosis, Assessment PlanHospital course to date:Diabetic foot infection--Pt had had multiple procedures and 6 weeks IV abx prior to this hospitalization with persistent issues. Ortho was consulted and pt is s/p BKA. On05/01/22 went for final I D and delayed primary closure. Cw abx as per ID. --PT/OT Acute Pain: Cw [facility], NSAIDs, gabapentin Uncontrolled DMII [A1C 10.1]--BG now well controlled--Cw current insulin regimen--Cw SSI CAD s/p CABG 2016: Cw ASA, Plavix, statin, BBPAD: Cw above meds DVT ppx: LovenoxDispo: Cw PT/Patti pertinant labs, Imaging, EKG, telemetry data,and medical records are reviewed by me personally. I have discussed the available findings, initial diagnosis and related differentials with the patient/day care center director including RN. All concerns and questions are answered to the best of my abilities based on theavailable data.I have initiated the plan of care based on preliminary diagnosis,requested appopriate consultations with labs/imagings. Patient/day care center director verbalizes understanding of the plan of care. at 2010 RPT #:[id number] OF REPORTPRProgress [id number]:11:00B.[id number] Available for patient ghriKOXLCGVISVGZCN9400-17-51C99:12:[address] [facility] 2022-05-08 12:54:00 [id number]/wLEVxwQPPU+ 3XA7 PcrJWQ7sImUxjgsPAEiU+WxmT+t34lCn5483-31-79C8 2:54:00 [facility]Re[facility] Team ConferenceREPORT#:[id number] REPORT STATUS: SignedDATE:05/08/22 TIME: 1254 PATIENT: BRIGHT SALAZAR UNIT #: [id number]#: [id number] [facility] AGE: 56 SEX: M ATTEND: Flako Elias AUTHOR: Flako Elias MD * ALL edits or amendments must be made on the electronic/computer document * Rehabilitation Team Conference Weekly Team ConferenceTeam conf information:Date of conference: 05/08/22Conference type: InitialConference scribe: Arelis Phipps PT INTERDISCIPLINARY TEAM MEETING PARTICIPANTS: TITLE NAME MD Flako Elias MD RN Bharti Mills, RN PT RISSA JEAN, PT OT Jeet Kasper OT ARCHIE/ Elinor Corado [facility] ATTENDEE PPSC Arelis Phipps PT Staff (8) Ayala Anton, PT Staff (9) NO ATTENDEE OTHER NAME CREDENTIALS 1 2 FUNCTIONAL CHANGE: TYPE ADMISSION TOTAL INTERIM TOTAL CHANGE Self care 36 41 5 Transfer 35 35 0 Mobility 17 17 0 Wheelchair distance: 300' 600'Mobility description: Pt IS IND W/ ALL TF Pt IS JOSSE W/ WC PROPULSION BOWEL AND BLADDER STATUS: Bowel continence admission rating: Bladder continence admission rating: Always continentBowel and bladder team conference update: WAs continent of bowel and bladder. Has loose stools and imodium was given INTERDISCIPLINARY TEAM UPDATES: ALTON team conference update: Is A O x4, speech is clear and communicates appropriately. Appetite is good. NWB LEFT LE, AMPUTATION LEFT LE. DRESSING CHANGES Q2 DAYS TO LEFT STUMP. VANCOMYCIN QID PO 05/08-05/22 PENDING C DIFF SAMPLE RESULTS. ULTRAM, INSULIN, NEURONTIN, NORCO PRN. PT team conference update: Rolling, supine to/from sit are Modified independent. Sit to stand: Set-up. Bed to/from wc: MIN A Minimal VC for proper hand placement and technique. Car transfer: SPV. WC propulsion: unlimited distance, Modified independent. Ramp negotiation: 25 ft x 2,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 attestation:Face to face exam completed. Treatment plan discussed with patient. Meets continued stay criteria. Agree with interdisciplinary treatment plan. at 1023 RPT #:[id number] OF REPORTPRProgress yckl8676-58-50U19:16:00B.[id number] Available for patient mvduMKBYMLBDQBRMHR1262-64-58W90:24:[address] [facility] 2022-05-06 08:43:00 [id number] XOr6 OXpr70jLYaMPN3kpqe/MlEUjfksg8rSj6384-26-98S5 8:43:00 [facility] ([facility])Rehab Indiv Overall POCREPORT#:[id number] REPORT STATUS: SignedDATE:05/06/22 TIME: 842 PATIENT: BRIGHT SALAZAR UNIT #: [id number]#: [id number] [facility] [birth year] AGE: 56 SEX: M ATTEND: Flako Elias [facility] AUTHOR: Flako Elias MD * ALL edits or amendments must be made on the electronic/computer document * Individualized Overall POC HPIImpairment group: amputation of limb NOTE Document ONLY ONE Impairment Group Amputation of limb: unilateral lower limb Orthopedic disorders: other orthopedicEtiologic diagnosis:left foot wet gangrene s/p BKA Medical Expected CourseExpected DC destination:Expected DC destination: Home Problem List/A P: 1. Hyperglycemia 2. Diabetic foot infection 3. Diabetes 4. Status post below-knee amputation of left lower extremity Medical prognosis: fairMedical prognosis details: pt motivation, family/caregiver support, endurance, D/C planExpected course of Tx:Left diabetic foot infection: Status post left transtibial amputation 04/27/2022nd I D with revision 05/01/[address] Herman. NWB LLE. Antibiotic per ID. Pain: Nociceptive and neuropathic. NSAID, gabapentin, PRN Ultram, PRN [facility] DMT2: A1c 10.1. Continue dietary and medical management on insulin CAD/PAD: ASA, Plavix, statin Bowel: Reports loose stools on abx. MiraLAX PRN DVT/GI prophy: Lovenox/PPI Medical management per hospitalist client relationship consultant, appreciate management. Functional Expected CourseFunctional expected course:The data set between the solid lines has been imported from multidisciplinary team documentation: ANTICIPATED SERVICES IN ACUTE INPATIENT REHAB: DISCIPLINE Physical Therapy Occupational Therapy Speech TherapyINTENSITY (minutes/day) 90 90FREQUENCY (days/week) 5 5DURATION (# of days) 15 15 EXPECTED FUNCTIONAL OUTCOMES: CARE Rolling left and Independent (6) right discharge goal: CARE Sitting to Independent (6) lying discharge goal: CARE Lying to sitting Independent (6) on side of bed discharge goal: CARE Sitting to Independent (6) standing discharge goal: CARE Chair/bed to Partial/moderate asst (3) chair transfer discharge goal: CARE Car transfer Independent (6) discharge goal: CARE Walking 10 Partial/moderate asst (3) feet discharge goal: CARE Walking 50 feet Independent (6) with two turns discharge goal: CARE Walking 150 Med cond/safety concern feet discharge goal: CARE Walking 10 feet on Independent (6) uneven surface discharge goal: CARE 1 step (curb) Independent (6) discharge goal: CARE 4 steps Independent (6) discharge goal: CARE 12 steps Med cond/safety concern discharge goal: CARE Picking up Independent (6) object discharge goal: CARE [place] 50 feet Independent (6) with two turns discharge goal: CARE [place] 150 Independent (6) feet discharge goal: CARE Toileting hygiene Independent (6) discharge goal: CARE Transfer on/off toilet Independent (6) or commode discharge goal: CARE Eating discharge goal: Independent (6) CARE Oral hygiene Independent (6) discharge goal: CARE Shower/bathe Independent (6) self discharge goal: CARE Upper body Independent (6) dressing discharge goal: CARE Lower body Independent (6) dressing discharge goal: CARE Putting on/taking Independent (6) off footwear discharge goal: Bowel function goal: CONTINENTBladder function goal: CONTINENT __ AGNIESZKA Attestation:Based upon the review of clinical staff recommendations of frequency, duration and intensity and individual assessment of this patient, I estimate the following: Estimated length of stay:17 days MD Review/RecommendationAttestation:Based upon my physical evaluation of the patient and input from the interdisciplinary team members I have developed this interdisciplinary overall plan of care and determined the admission to the IRF is reasonable and necessary.The IOPOC will be updated weekly and modified under my direction. Patient can be expected to actively participate in, and benefit from, an intensive rehab therapy program whose intensity is not provided in lower levels of care.Complex acute rehab needs: Custom therapy tx plan, Mgt of complex Co-morb, Med adjustment/mgmt., New medical diagnosis, Postsurgery req mgt/care, Complex pain management, VTE Risk at 0844 RPT #:[id number] OF REPORTCLClinical sluo2887-53-59B18:43:00B.[id number] Available for patient figjAJYDOXFDJUJDDA1233-61-32H38:45:[address] [facility] 2022-05-05 14:42:00 [id number]/jv5gGn1QeXU [facility] vY3ZDHHA7vH8VzBfATyNMRTsoDly8l9C8900-59-34L9 4:42:00 [facility] ([facility]Hospitalist ConsultationREPORT#:[id number] REPORT STATUS: SignedDATE:05/05/22 TIME: 1441 PATIENT: BRIGHT SALAZAR UNIT #: [id number]#: [id number] [address] AGE: 56 SEX: M ATTEND: Flako Elias MDADM AUTHOR: Ana Riggs MD * ALL edits or amendments must be made on the electronic/computer document * History of Present IllnessRequesting Clinician: Dr. Mcdonough for consult:Medical ManagementChief complaint:Admission for therapyPCP:PCP: No Primary or Family Physician HPI:Pt is a 56 yo CM with a PMH of DMII, CAD s/p CABG 2016, PAD with unsalvagable L foot wound with wet gangrene. Pt underwent L BKA by on 04/27. On 04/29 left leg wound irrigation and debridement down to and including muscle- 24 x12 cm with wound vac placement.Then on 05/01/22 went for final I D and delayed primary closure. ID has been on board and managing abx. Vancomycin has been discontinued.Plan is to continue Merrem for another 1-3 days. Pt has worked with therapy today and feels it has gone well. Wants to talk to someone about filing for disability. History - Adult longitudinalAdditional medical history:Diabetes, coronary artery diseaseAdditional surgical history:Multiple toe amputations, transmetatarsal amputation, CABG h0Smhohuqcpa family history:Family history of diabetes, no bleeding or clotting dyscrasiasSmoking status for patients 13 years old or older: Current every day smokerDate last smoked: 04/26/22Packs per day: 1Years smoked: 40Additional social history:Pre-hospital services utilized: None Occupation/Profession: Full-time employed Education history: Return to work/school plan: return to work as able Marital status: Never Hobbies/leisure activities: Prior living situation: Home Living with: AloneAllergies:Coded Allergies:No Known Allergies (07/24/12) ObjectiveVS/I OLast Documented: Result Date Time Pulse Ox 98 05/05 712 B/P 149/80 05/05 712 B/P Mean 103.0 05/05 712 O2 Delivery Room air 05/05 712 Temp 98.2 05/05 712 Pulse 71 05/05 07 Resp 14 05/05 712 24 hour I O ending at 0700: 05/05 0700 05/04 1900 Intake Total Output Total Balance Number 1 Bowel Movements Number 0 Incontinent Voids Number Voids 2 Patient 79.6 kg Weight Weight Bed scale Measurement Method ResultsFindings/Data:Laboratory Tests: 05/05 05/05 05/04 5492 2723 9223 Chemistry Sodium (133 - 144 mmol/L) 135.0 Potassium (3.5 - 5.1 mmol/L) 4.1 Chloride (95 - 105 mmol/L) 102 Carbon Dioxide (21 - 32 mmol/L) 28 Anion Gap (4.0 - 15.0 GAP calc) 5.0 BUN (7 - 18 MG/DL) 11 Creatinine (0.55 - 1.30 MG/DL) 0.57 Glomerular Filtr Rate (>60 estGFR) 115 Glucose (70 - 110 MG/DL) 177 H POC Glucose (70 - 119 MG/DL) 179 H 214 H Calcium (8.5 - 10.1 MG/DL) 8.6 Specimen Appearance (1 NORMAL Index/DL) 1 NORMAL <2 MG Specimen Hemolysis (1 NORMAL Index/DL) 1 NORMAL <10 MG Hematology WBC (4.1 - 12.1 K/mm3) 7.1 RBC (3.8 - 5.5 M/mm3) 4.02 Hgb (10.6 - 15.8 G/DL) 11.1 Hct (31.8 - 47.4 %) 32.6 MCV (80.1 - 101.1 fL) 81.1 MCH (25.3 - 35.3 pg) 27.6 MCHC (32.7 - 35.1 G/DL) 34.0 RDW (12.2 - 16.4 %) 13.1 Plt Count (155 - 337 K/mm3) 312 MPV (7.6 - 10.4 fL) 9.3 Gran % (37.8 - 82.6 %) 58.6 Lymph % (Auto) (14.1 - 45.4 %) 24.8 Williams % (Auto) (2.5 - 11.7 %) 12.3 H Eos % (Auto) (0.0 - 6.2 %) 3.4 Baso % (Auto) (0.0 - 2.6 %) 0.6 Gran # (2.0 - 13.7 k/mm3) 4.17 Lymph # (Auto) (0.6 - 3.8 K/mm3) 1.76 Williams # (Auto) (0.11 - 0.59 K/mm3) 0.87 H Eos # (Auto) (0.0 - 0.4 K/mm3) 0.24 Baso # (Auto) (0.0 - 0.1 K/mm3) 0.04 Immature Gran % (0.0 - 2.0 %) 0.3 Nucleated RBC % (0.0 - 1.0 /100WBC%) 0.0 Nucleated RBCs # (0.00 - 0.05 K/mm3) 0.00 Free Text Obj NotesFree Text Obj Notes:GENERAL APPEARANCE: He is awake, alert, oriented, not in acute distress, lyingcomfortably in the bed.HEENT: Atraumatic, normocephalic. Oral mucosa moist.NECK: Supple, no JVD.CARDIOVASCULAR: S1, S2 present, regular.LUNGS: Clear to auscultation.ABDOMEN: Soft, nontender, nondistended.SKIN: No rashes.NEUROLOGIC: No focal deficits.EXTREMITIES: LLE dressing in place with compression stocking over Diagnosis, Assessment Plan Free Text DxA P NotesFree Text DxA P Notes:Diabetic foot infection--Pt had had multiple procedures and 6 weeks IV abx prior to this hospitalization with persistent issues. Ortho was consulted and pt is s/p BKA. On05/01/22 went for final I D and delayed primary closure. Cw abx as per ID. --PT/OT Acute Pain: Cw [facility], NSAIDs, gabapentin Uncontrolled DMII [A1C 10.1]--BG now well controlled--Cw current insulin regimen--Cw SSI CAD s/p CABG 2016: Cw ASA, Plavix, statin, BBPAD: Cw above meds DVT ppx: Lovenox at 1546 [facility] #:[id number] OF REPORTWQRtmbvzbhcxcw3238-05-36J06:42:00B. [id number] for patient lsfrCLXIPZLVEXCCGT9490-48-39F35:46:[address] [facility] 2022-05-05 11:27:00 [id number]/8Rgr8/AKq9SjUTkgxmQK B9/b 2Wy/cEEahBrVKVyAZEI/EHLWLqoZ9R8I3919-60-64S9 1:27:00 [facility] ([facility])Rehab History PhysicalREPORT#:[id number] REPORT STATUS: SignedDATE:05/05/22 TIME: 1127 PATIENT: BRIGHT SALAZAR UNIT #: [id number]#: [id number] ROOM/BED: [facility]-WDOB: [birth year] AGE: 56 SEX: M ATTEND: Flako Elias [facility] AUTHOR: Peter Stephenson MD * ALL edits or amendments must be made on the electronic/computer document * HPI HPIChief complaint:weakessPCP:PCP: No Primary or Family Physician Referring physician:Referring physician: Yuli Pink-Erlindaist HPI:The patient is a 56 year old male with a prior medical history of PVD, CAD, diabetes, stroke and CABG. He presented to [facility] on 04/26/22 due to worsening left foot pain and swelling. In 2020 the patient had best bite to his left big toe with a toe removal at [facility] with 6 week of IV antibiotics. He noticed his foot was becoming red and swollen with some drainage. Orthopedics was consulted and recommended a 2 stage left BKA surgery. Infectious Disease was consulted for antibiotic management, is on IV meropenem and IV vancomycin. On 04/27/22 he was taken for left BKA with wound vac application with Dr. Lundberg. Culture of his left foot from 04/26/2022 has Enterococcus without sensitivity pattern, also gram-negative felipa with no identification as well as Proteus vulgaris has moderate resistance. On 05/01/22 he was taken for I D of left BKA with primary wound closure with Dr. Herman. Thepatient will continue to do dressing changes and is non-weightbearing to the left lower extremity. Prior to this hospitalization, the patient was living alone and did not use an AD upon discharge, but reported pain of left lower extremity. Currently, he is requiring minimal assistance for functional mobility, gait, and ADLs. The patient is willing and agreeable to 3 hours of therapy, 5 days a week in order to return home as independent as possible. Patient report left residual limb pain 6/10 in severity at rest, associated with phantom pain. Last BM yesterday. Functional Assessment: FUNC. TASK PRIOR LOF CURRENT LOF EXPECTED LOF Bathing Independent Supervise/touch asst Independent U.B. Dressing Independent Setup/cleanup ONLY Independent L.B. Dressing Independent Supervise/touch asst Independent Bed/Ch Transf. Independent Supervise/touch asst Independent Toilet Transfer Independent Supervise/touch asst Independent Stairs Independent Total assistance Supervise/touch asst Locomotion Independent Supervise/touch asst Independent Impairment group: amputation of limb NOTE Document ONLY ONE Impairment Group Amputation of limb: unilateral lower limb Orthopedic disorders: other orthopedicEtiologic diagnosis:left foot wet gangrene s/p BKA HistoryPreadmit diagnostic/labs: Date: 04/30/22 05/03/22 05/04/22 WBC: 7.6 HGB: 11.4 HCT: 34 Ca: 8.4 8.7 Na: 136 131 K+: 3.6 4.3 Glu: 186 169 Mg: BUN: 11 10 Creat: .49 .55 Tot protein: Alb: PTT: PT: INR: PLT: Additional labs: Cultures: Wound culture 04/26/22: PROTEUS VULGARIS; ENTEROBACTER CLOACAE; ENTEROCOCCUS FAECALISImaging: Left foot X-ray @: Status post transmetatarsal amputation with soft tissue swelling. Mild cortical irregularity involving the amputated stumps of the first and third metatarsals, age indeterminate. Active osteomyelitis not excluded.Other supporting diagnostics: Additional medical history:Diabetes, coronary artery diseaseAdditional surgical history:Multiple toe amputations, transmetatarsal amputation, CABG u9Iprjvsoamt family history:Family history of diabetes, no bleeding or clotting dyscrasiasSmoking status for patients 13 years old or older: Current every day smokerDate last smoked: 04/26/22Packs per day: 1Years smoked: 40Additional social history:Pre-hospital services utilized: NoneOccupation/Profession: Full-time employedEducation history: Return to work/school plan: return to work as able Marital status: Never marriedHobbies/leisure activities: Prior living situation: HomeLiving with: AloneMedications:Home Medications:METOPROLOL TARTRATE (LOPRESSOR) 50 MG PO BID CLOPIDOGREL (PLAVIX) 75 MG PO DAILY ASPIRIN 81 MG PO BID ZOLPIDEM (AMBIEN) 10 MG PO BEDTIME PRAVASTATIN (PRAVACHOL) 20 MG PO BEDTIME GABAPENTIN (NEURONTIN) 800 MG PO TID HYDROcodone/APAP (HYDROcodone/APAP 10/325) 2 TAB PO Q4H PRN PRN BREAKTHROUGH PAIN MEROPENEM (MERREM) 500 MG IV Q6H PANTOPRAZOLE DR (PROTONIX) 40 MG PO DAILY IBUPROFEN (MOTRIN) 800 MG PO TID INSULIN NPH HUMAN RECOM (HumuLIN N) 20 UNITS SUBQ BID AC Allergies:Coded Allergies:No Known Allergies (07/24/12) CHARISSA NIEVES comments:10 point review of systems negative except for pertinent positive per HPI Objective Physical ExamVS:Last Documented: Result Date Time Pulse Ox 98 05/05 712 B/P 149/80 05/05 712 B/P Mean 103.0 05/05 712 O2 Delivery Room air 05/05 712 Temp 98.2 05/05 712 Pulse 71 05/05 712 Resp 14 05/05 712 PATIENT WEIGHT: Weight (lb): 175Weight (oz): 7.81Weight (kg): 79.600 General appearance: no acute distressPsych: normal affectHEENT: anictericNeck: suppleRespiratory: normal inspiratory effortAbdomen: softMusculoskeletal - general: Musculoskeletal - general: L residual limb dressing d/iNeuro/RN MATERNITY: alert, normal speech ResultsFindings/Data:Laboratory Tests: 05/05 Chemistry Sodium (133 - 144 mmol/L) 135.0 Potassium (3.5 - 5.1 mmol/L) 4.1 Chloride (95 - 105 mmol/L) 102 Carbon Dioxide (21 - 32 mmol/L) 28 Anion Gap (4.0 - 15.0 GAP calc) 5.0 BUN (7 - 18 MG/DL) 11 Creatinine (0.55 - 1.30 MG/DL) 0.57 Glomerular Filtr Rate (>60 estGFR) 115 Glucose (70 - 110 MG/DL) 177 H POC Glucose (70 - 119 MG/DL) 214 H Calcium (8.5 - 10.1 MG/DL) 8.6 Specimen Appearance (1 NORMAL Index/DL) 1 NORMAL <2 MG Specimen Hemolysis (1 NORMAL Index/DL) 1 NORMAL <10 MG Hematology WBC (4.1 - 12.1 K/mm3) 7.1 RBC (3.8 - 5.5 M/mm3) 4.02 Hgb (10.6 - 15.8 G/DL) 11.1 Hct (31.8 - 47.4 %) 32.6 MCV (80.1 - 101.1 fL) 81.1 MCH (25.3 - 35.3 pg) 27.6 MCHC (32.7 - 35.1 G/DL) 34.0 RDW (12.2 - 16.4 %) 13.1 Plt Count (155 - 337 K/mm3) 312 MPV (7.6 - 10.4 fL) 9.3 Gran % (37.8 - 82.6 %) 58.6 Lymph % (Auto) (14.1 - 45.4 %) 24.8 Williams % (Auto) (2.5 - 11.7 %) 12.3 H Eos % (Auto) (0.0 - 6.2 %) 3.4 Baso % (Auto) (0.0 - 2.6 %) 0.6 Gran # (2.0 - 13.7 k/mm3) 4.17 Lymph # (Auto) (0.6 - 3.8 K/mm3) 1.76 Williams # (Auto) (0.11 - 0.59 K/mm3) 0.87 H Eos # (Auto) (0.0 - 0.4 K/mm3) 0.24 Baso # (Auto) (0.0 - 0.1 K/mm3) 0.04 Immature Gran % (0.0 - 2.0 %) 0.3 Nucleated RBC % (0.0 - 1.0 /100WBC%) 0.0 Nucleated RBCs # (0.00 - 0.05 K/mm3) 0.00 Microbiology:05/04 2109 NASAL: MRSA Screen - RECD Radiology data:Left foot X-ray @: Status post transmetatarsal amputation with soft tissue swelling. Mild cortical irregularity involving the amputated stumps of the first and third metatarsals, age indeterminate. Active osteomyelitis not excluded. Diagnosis, Assessment Plan Diagnosis, Assessment PlanProblem List/A P: 1. Hyperglycemia 2. Diabetic foot infection 3. Diabetes 4. Status post below-knee amputation of left lower extremity Free Text A P:Rehab Assessment and Plan: PT: for bed mobility, transfer training, gait training with AD, balance training, endurance improvement, LE strengthening, ROM improvementOT: for ADL and transfer trainingPrecautions: JOY YOUNG Left diabetic foot infection: Status post left transtibial amputation 04/27/2022nd I D with revision 05/01/[address] Herman. JOY YOUNG. Antibiotic per ID. Pain: Nociceptive and neuropathic. NSAID, gabapentin, PRN Ultram, PRN [facility] DMT2: A1c 10.1. Continue dietary and medical management on insulin CAD/PAD: ASA, Plavix, statin Bowel: Reports loose stools on abx. MiraLAX PRN DVT/GI prophy: Lovenox/PPI Medical management per hospitalist client relationship consultant, appreciate management. Dispo: TBD pending IDP staff meeting. >70 min spent on this encounter with >50% of time counseling patient on co-morbidities, safety measures, rehab prognosis Review of comorbidities:Current surgery date and type: 04/27/22-left BKA 04/29/22-Left leg wound irrigation and debridement down to and including muscle- 24 x12 cm Wound VAC placement 05/01/22-Irrigation and debridement of left below-knee amputation stump with delayed primary wound closure.Active comorbid conditions: diabetes, CAD, PVD, Polymicrobial left foot , infectionPast medical and surgical history: peripheral vascular disease, coronary artery disease, diabetes, stroke, CABGHad major surgery within 100 days of admission: YesRisk for medical/clinical complications: Anemia, BP fluctuation, Blood sugar fluctuation, Constipation, DVT, Cardiac instability, Depression, Electrolyte imbalance, Incisional dehiscence, Infection, Injury d/t falls, Pain, Skin breakdownCompare to PAS:No major changesEstimated length of stay:15 days Acute Rehab Attestation NOTE Attestation is for MD onlyComplex acute rehab needs: Custom therapy tx plan, Mgt of complex Co-morb, Med adjustment/mgmt., New medical diagnosis, Postsurgery req mgt/care, Complex pain management, VTE Risk at 1147 RPT #:[id number] OF REPORTHPHistory and physical [id number]:27:00B.[id number] for patient [id number]:47:[address] [facility] 2022-05-04 13:56:00 [id number] VV9Y J4EjOarEZKfGhM/[id number] 3:56:00 [facility] ([facility])Rehab Preadmission ScreenREPORT#: REPORT STATUS:DATE:05/04/22 TIME: 1356 PATIENT: BRIGHT SALAZAR UNIT #: ROOM: BED:: 65 AGE: 56 SEX: M ATTEND: Flako Elias MDPROJECTED ADM AUTHOR: Peter Stephenson MDREP SRV REP SRV TM: 1356* ALL edits or amendments must be made on the electronic/computer document * IRF Preadmission Screen Information From [facility] PASCRS PAS documentation:The data set between the solid lines has been imported from [facility] PAS documentation. PREADMISSION INFORMATION: DEMOGRAPHICS: Assessment date: 05/01/22Assessment time: 1143Patient has an Advanced Directive: NoContent of advance directive/living will/plan of care: Copy of advance directive on chart: Referring physician: Yuli Pink-HospitalistPrimary care provider: No PCP listedConsulting physician(s): Edis Ascencio-Cardiology Jasiel Lundberg-Orthopedics Jacquie De La Garza-IDReferral contact name: Moises Lawrencecamposvladimir contact number: [phone] setting[facility]omballeRoom number: 405 IMPAIRMENT GROUP: Impairment group: Amp unilat LE below the knee Etiologic diagnosis: left foot wet gangrene REVIEW OF MED CONDITIONS: Date of onset: 04/26/22Current surgery date and type: 04/27/22-left BKA 11/21/22-Left leg wound irrigation and debridement down to and including muscle- 24 x12 cm Wound VAC placement 05/01/22-Irrigation and debridement of left below-knee amputation stump with delayed primary wound closure.Active comorbid conditions: diabetes, CAD, PVD, Polymicrobial left foot , infectionPast medical and surgical history: peripheral vascular disease, coronary artery disease, diabetes, stroke, CABGHad major surgery within 100 days of admission: YesRisk for medical/clinical complications: Anemia, BP fluctuation, Blood sugar fluctuation, Constipation, DVT, Cardiac instability, Depression, Electrolyte imbalance, Incisional dehiscence, Infection, Injury d/t falls, Pain, Skin breakdownAcute hospital stay summary: The patient is a 56 year old male with a prior medical history of PVD, CAD, diabetes, stroke and CABG. He presented to [facility] on 04/26/22 due to worsening left foot pain and swelling. In 2020 the patient had best bite to his left big toe with a toe removal at [facility] with 6 week of IV antibiotics. He noticed his foot was becoming red and swollen with some drainage. Orthopedics was consulted and recommended a 2 stage left BKA surgery. Infectious Disease was consulted for antibiotic management, is on IV meropenem and IV vancomycin. On 04/27/22 he was taken for left BKA with wound vac application with Dr. Lundberg. Culture of his left foot from 04/26/2022 has Enterococcus without sensitivity pattern, alsogram-negative felipa with no identification as well as Proteus vulgaris has moderate resistance. On 05/01/22 he was taken for I D of left BKA with primary wound closure with Dr. Herman. The patient will continue to do dressing changes and is non-weightbearing to the left lower extremity. Prior to this hospitalization, the patient was living alone and did not use an AD upon discharge, but reported pain of left lower extremity. Currently, he is requiringminimal assistance for functional mobility, gait, and ADLs. The patient is willing and agreeable to 3 hours of therapy, 5 days a week in order to return home as independent as possible. PREADMIT VITALS: Date/Time 05/03/22 0729 05/04/22 0629 Temp F Temp C 36.7 36.7 Pulse 74 71 RR 16 14 BP 131/73 162/79 SPO2% 95 97 Ht ft 6 6 Ht in 0 0 Wt lbs 200.000 200.000 BMI 27.1 27.1 SUPPORTING DIAGNOSTICS/LABS/RADIOLOGY/CARDIOLOGY: Date: 04/30/22 05/03/22 05/04/22 WBC: 7.6 HGB: 11.4 HCT: 34 Ca: 8.4 8.7 Na: 136 131 K+: 3.6 4.3 Glu: 186 169 Mg: BUN: 11 10 Creat: .49 .55 Tot protein: Alb: PTT: PT: INR: PLT: Additional labs: Cultures: Wound culture 04/26/22: PROTEUS VULGARIS; ENTEROBACTER CLOACAE; ENTEROCOCCUS FAECALISImaging: Left foot X-ray @: Status post transmetatarsal amputation with soft tissue swelling. Mild cortical irregularity involving the amputated stumps of the first and third metatarsals, age indeterminate. Active osteomyelitis not excluded.Other supporting diagnostics: Vascular lab report 04/26/22: Triphasic waveforms and mild diffuse PAD noted in the RLE down to the popliteal artery. No flow noted in the RIGHT SUPERVISOR TYPE DISK QUALITY CONTROL. Monophasic waveforms and moderate to severe PAD noted inthe RIGHT DPA. Monophasic and biphasic waveforms are seen throughout the LLE with moderate diffuse disease. RESPIRATORY STATUS: Respiratory treatments: O2 liters per minute: Respiratory status: Patient has no respiratory needs at this time NEUROLOGIC STATUS: Neurologic status: Alert, Oriented to person, Oriented to place, Oriented to time, Oriented to situationPatient's mood and behavior: AppropriateHand dominance: Right BOWEL/BLADDER: Continent of bladder for developmental age: YesNumber of bladder accidents in last 48 hours: Catheter type: Insertion date: Bladder aids: Bladder comment: Continent of bowel for developmental age: YesNumber of bowel accidents in last 48 hours: Date of last BM: 05/03/22Colostomy: Ileostomy: Bowel aids: Bowel comment: SKIN: Skin alteration: Present/Exists SKIN ALTERATION 1: Type: Dry soreLocation: Foot rightStage: Description: DRY/ SCABBED SORE TO TOP OF RIGHT FOOT. DRY [facility]. SKIN ALTERATION 2: Type: Surgical woundLocation: Leg leftStage: Description: Dressing intact/device SKIN ALTERATION 3: Type: Location: Stage: Description: SKIN ALTERATION 4: Type: Location: Stage: Description: EATING/NUTRITIONAL: Nutritional intake: PO regular food, PO thin liquids, Diabetic DietEating compensatory strategies: Medication administration: IV, Medications whole, Subcutaneous REHAB NEEDS: Special rehabilitation needs: IV/PICC/CVCSpecial rehabilitation precautions: Safety/fall, Non-weight bearing LLERehabilitation precaution detail: Fall risk due to new BKA FUNCTIONAL ASSESSMENT: FUNC. TASK PRIOR LOF CURRENT LOF EXPECTED LOF Bathing Independent Supervise/touch asst Independent U.B. Dressing Independent Setup/cleanup ONLY Independent L.B. Dressing Independent Supervise/touch asst Independent Bed/Ch Transf. Independent Supervise/touch asst Independent Toilet Transfer Independent Supervise/touch asst Independent Stairs Independent Total assistance Supervise/touch asst Locomotion Independent Supervise/touch asst Independent Locomotion prior device use: NoneDescription of prior level of locomotion: Locomotion current device: RW/FWWLocomotion current distance traveled without a rest break: Few steps at bedside Description of current level of locomotion: Description of expected level of locomotion: Will require adaptive device upon discharge Language and Cognition: Alert and oriented x 4 Add'l functional comment: Patient is limited by pain, weakness, and decreased balance. Prior device use: NonePrior device use additional information: Pt owns a RW but does not use it regularly PRE-HOSPITAL: Pre-hospital services utilized: NoneOccupation/Profession: Full-time employedEducation history: Return to work/school plan: return to work as able Marital status: Never marriedHobbies/leisure activities: Prior living situation: HomeLiving with: AloneLiving with comment: ANTICIPATED DC PLAN/POST IRF: Primary support contact: Diamond Bruno to patient: Melquiades number 1: [phone] number 2: Caregiver availability: NoneCaregiver can provide: Patient/caregiver goals/preferences: Expected discharge destination: HomeExpected discharge physical layout: Mobile , Tub/shower comboNumber of external stairs: Number of internal stairs: Railing details: Grab bars location: Barriers to discharge: Caregiver supportOptions discussed with patient: YesOptions discussed with caregiver: Patient agrees with program requirements: Yes ACTIVITY TOLERANCE: Current treatment interventions: Occupational therapy, Physical therapyPatient able to tolerate 3 hours of therapy a day: YesPatient able to tolerate 15 hours of therapy a week: Altered therapy schedule comment: ACUTE INPATIENT REHAB PLAN: Estimated length of stay in days: 15Anticipated services in acute inpatient rehab: Rehab nursing 30/12, first assistant manager,Occupational therapy, Physical therapyAcute hospital documents reviewed prior to admission decision: Acute History/Physical, Consult notes, Operative reports, Progress notes, Lab/diagnostics, Therapy notes, Vital signs, Other ancillary notes CRS ELECTRONIC SIGNATURE: CRS #1 electronic signature: Peg Campbell credentials: OTRDate: 05/04/22Time: 1327 CRS #2 electronic signature: CRS credentials: Date: Time: CRS #3 electronic signature: CRS credentials: Date: Time: Provider Pre-Admit SummaryAcute IP rehab admit: criteria metMD determinationBased upon my evaluation and review of the supporting assessment documentation and consultation with the preadmission sandblaster stone, I have determined, prior to admitting this patient, that there is reasonable expectation that at the time of admission to the IRF, the patient's medical management and rehabilitation needs require an inpatient stay and close physician involvement. Patient can be expected to actively participate in, and benefit from, and intensive rehab therapy program whose intensity is not provided in lower levels of care. Significant barriers that can only be addressed in an acute inpatient rehab program, including, but not limited to: Complex acute rehab needs: Custom therapy tx plan, Mgt of complex Co-morb, Med adjustment/mgmt., New medical diagnosis, Postsurgery req mgt/care, Complex pain management, VTE Risk at 1359 RPT #:[id number] OF REPORTCLClinical [id number]:56:00B.[id number] Available for patient [id number]:00:13 [facility] 2022-05-04 13:19:00 [id number] NtjA [id number] 3:19:00 [facility])Hospitalist Discharge SummaryREPORT#:[id number] REPORT STATUS: SignedDATE:05/04/22 TIME: 1319 PATIENT: BRIGHT SALAZAR UNIT #: [id number]#: [id number] [facility] [place] [birth year] AGE: 56 SEX: M ATTEND: Yuli Pink MDADM AUTHOR: Ana Riggs MD * ALL edits or amendments must be made on the electronic/computer document * General InformationDischarge date: 05/04/22Discharge diagnosis:L Diabetic Foot Wound with Wet Gangrene, not salvagable s/p staged L BKAUncontrolled PainUncontrolled DMII [A1C 10.1]Pseudohyponatremia from Hyperglycemia Hospital course:Pt is a 56 yo CM with a PMH of DMII, CAD s/p CABG 2015, PAD with unsalvagable L foot wound with wet gangrene. Pt underwent L BKA by Dr. Lundberg on 04/27. On 04/29 left leg wound irrigation and debridement down to and including muscle-24 x12 cm with wound vac placement. Then on 05/01/22 went for final I D and delayed primary closure. ID has been on board and managing abx. Vancomycin has been discontinued. Plan is to continue Merrem for another 1-3 days. His pain was also uncontrolled during his stay. There is some component of phantom pain but majority is in the stump. Has neuropathic component as well. Pt also seemsto have component of underlying depression likley contributing to worsening sensation of pain and increased focus on pain. Medications have been adjusted and his on gabapnetin, NSAIDs, [facility]. Only received 1 dose of dilaudid yesterday and seems to have done okay though still experiencing 6-9/10 pain constantly. Discussed again at length with him today regarding goals of pain control and that as he moves further from the surgery, pain will improve. Discussed that rehab is very important to further his recovery, build his strength, reduce risk of complications. Depression seems to be contributing to pain as well. This was discussed with pt and he is reluctant to take medications he might not need. I will ask again for reading material to be provided. This would have the added benefit of helping some with chronic pain along with mood. Pt. condition on discharge: improved, stable Med Rec Med RecDischarge meds:Continue taking these medications:METOPROLOL TARTRATE (LOPRESSOR) 50 MG TAB 50 MILLIGRAM ORAL TWICE DAILY. CLOPIDOGREL (PLAVIX) 75 MG TAB 75 MILLIGRAM ORAL DAILY. ASPIRIN (ASPIRIN) 81 MG TAB.CHEW 81 MILLIGRAM ORAL TWICE DAILY. ZOLPIDEM (AMBIEN) 10 MG TAB 10 MILLIGRAM ORAL BEDTIME. Start taking the following new medications:PRAVASTATIN (PRAVACHOL) 20 MG TAB 20 MILLIGRAM ORAL BEDTIME. Qty = 30 No Refills GABAPENTIN (NEURONTIN) 400 MG CAP 800 MILLIGRAM ORAL THREE TIMES A DAY. Days = 30 No Refills HYDROcodone/APAP (HYDROcodone/APAP 10/325) 10 MG-325 MG TAB 2 TABLET ORAL EVERY 4 HOURS NEEDED. as needed for BREAKTHROUGH PAIN Days = [address] (PROTONIX) 40 MG TAB.DR 40 MILLIGRAM ORAL DAILY. Days = 30 No Refills MEROPENEM (MERREM) 500 MG VIAL 500 MILLIGRAM INTRAVENOUS EVERY 6 HOURS. Days = 3 No Refills IBUPROFEN (MOTRIN) 800 MG TAB 800 MILLIGRAM ORAL THREE TIMES A DAY. Days = 2 No Refills Objective Free Text Obj NotesFree Text Obj Notes:GENERAL APPEARANCE: He is awake, alert, oriented, not in acute distress, lyingcomfortably in the bed.HEENT: Atraumatic, normocephalic. Oral mucosa moist.NECK: Supple, no JVD.CARDIOVASCULAR: S1, S2 present, regular.LUNGS: Clear to auscultation.ABDOMEN: Soft, nontender, nondistended.SKIN: No rashes.NEUROLOGIC: No focal deficits.EXTREMITIES: LLE dressing in place with compression stocking over Discharge Instructions PCPDischarge to: Inpatient Rehab FacilityAdditional Discharge Routines: None at 1328 RPT #:[id number] OF REPORTDSDischarge [id number]:19:00B.[id number] for patient [id number]:29:[address] [facility] 2022-05-04 10:57:00 [id number] xSp4 +[id number]q/[id number] 0:57:00 [facility]Hospital[facility] Progress NoteREPORT#:[id number] REPORT STATUS: SignedDATE:05/04/22 TIME: 1057 PATIENT: BRIGHT SALAZAR UNIT #: [id number]#: [id number] [facility] [place] [birth year] AGE: 56 SEX: M ATTEND: Yuli Pink [facility] AUTHOR: Ana Riggs MD * ALL edits or amendments must be made on the electronic/computer document * Subjective Free Text Subj NotesFree Text Subj Notes:Pt frustrated about weaning dilaudid. He is very concerned about going to inpt rehab without the availability of IV pain medications. He did not get any reading material yesterday about duloxetine Objective GeneralVS/I O:Vital Signs: Date Time Temp Pulse Resp B/P B/P Pulse O2 O2 Flow FiO2 Mean Ox Delivery Rate 05/04 0629 98.1 71 14 162/79 106.6 97 Room air 05/036 98.8 74 12 165/80 108.2 97 Room air 05/03 1958 97.9 72 14 136/70 92.1 97 Room air 05/03 1453 98.1 70 14 126/70 88.5 97 05/03 1119 97.7 73 15 130/69 89.5 98 24 hour I O ending at 0700: 05/04 0700 05/03 1900 Intake Total 850.00 Output Total 350 750 Balance -350 100.00 Intake, IV 250.00 Intake, Oral 600 Number 1 Bowel Movements Output, Urine 350 750 PATIENT WEIGHT: Weight (lb): 200Weight (oz): Weight (kg): 90.718 Medications:Active Meds + DC'd Last 24 HrsVancomycin/Sodium Chloride (Vancomycin 1,500 mg/500 mL) 500 ML Q12H IV (DC) Gabapentin (NEURONTIN) 800 MG TID PO Ketorolac Tromethamine (TORADOL) 15 MG Q6H IV Hydromorphone HCl (DILAUDID) 0.5 MG Q4H PRN PRN IV Hydrocodone Bitart/Acetaminophen (NORCO 10/325 TABLET) 2 TAB Q4H PRN PRN PO Loperamide HCl (IMODIUM) 2 MG Q6H PRN PRN PO Insulin Human NPH (HumuLIN N) 20 UNIT BID AC SUBQ Dextrose/Water (DEXTROSE 50%-WATER) 25 ML ASDIR PRN IV (CKD) Glucagon (GLUCAGON) 1 MG ASDIR PRN IM Glucose Polymer (GLUTOSE) 15 GM ASDIR PRN PO Insulin Human Lispro (HUMALOG) See Admin Criteria ASDIR PRN SUBQ Tramadol HCl (ULTRAM) 50 MG Q6HR PO Aspirin (ASPIRIN) 81 MG BID PO Metoprolol Tartrate (LOPRESSOR) 50 MG BID PO Pravastatin Sodium (PRAVASTATIN SODIUM) 20 MG BEDTIME PO Zolpidem Tartrate (AMBIEN) 10 MG BEDTIME PO Meropenem (MERREM) 500 MG Q6HR IV Sterile Water (STERILE WATER) 10 MLClopidogrel Bisulfate (PLAVIX) 75 MG DAILY PO Pantoprazole (PROTONIX) 40 MG DAILY PO Magnesium Sulfate (MAGNESIUM SULFATE 2GM/50ML BAG) 50 ML Q1H PRN PRN IV Magnesium Sulfate/Dextrose (MAGNESIUM SULFATE 1GM/D5W 100ML) 100 ML ASDIR PRN IV Potassium Chloride (K-DUR) 20 MEQ ASDIR PRN PO Potassium Chloride (K-DUR) 40 MEQ ASDIR PRN PO Potassium Chloride (K-DUR) 40 MEQ ASDIR PRN PO Potassium Chloride (KCL 10 MEQ/100ML) 100 ML Q1H PRN PRN IV Potassium Chloride (KCL 10 MEQ/100ML) 100 ML Q1H PRN PRN IV Potassium Chloride (KCL 10 MEQ/100ML) 100 ML Q1H PRN PRN IV Potassium Chloride (KCL 20 MEQ/100 ML) 100 ML Q1H PRN PRN IV Potassium Chloride (KCL 20 MEQ/100 ML) 100 ML Q1H PRN PRN IV Potassium Chloride (KCL 20 MEQ/100 ML) 100 ML Q1H PRN PRN IV Potassium Phos/Sodium Phos (PHOS-NAK PACKET) 1 PKT ASDIR PRN PO (CKD) Potassium Phosphate (Potassium Phosphate) 15 MMOL ASDIR PRN IV Sodium Chloride (NORMAL SALINE 250 ML) 250 MLPotassium Phosphate (Potassium Phosphate) 30 MMOL ASDIR PRN IV Sodium Chloride (SODIUM CHLORIDE 0.9% 500 ML) 500 MLAcetaminophen (TYLENOL) 650 MG Q4H PRN PRN PO Acetaminophen (TYLENOL) 650 MG Q6H PRN PRN RECTAL Al Hydrox/Mg Hydrox/Simethicone (MAALOX PLUS) 30 ML Q4H PRN PRN PO Calcium Carbonate (TUMS) 1,000 MG DAILY PRN PRN PO Clonidine HCl (CATAPRES) 0.1 MG Q6H PRN PRN PO Enoxaparin Sodium (LOVENOX) 40 MG Q24H SUBQ Guaifenesin/Dextromethorphan (ROBITUSSIN-DM) 10 ML QID PRN PRN PO Hydrocodone Bitart/Acetaminophen (NORCO 5/325 TABLET) 1 TAB Q4H PRN PRN PO Miscellaneous Information (VANCOMYCIN PHARMACY TO DOSE) 1 EACH ASDIR IV (DC) Ondansetron HCl (ZOFRAN) 4 MG Q4H PRN PRN IV Senna (SENOKOT) 1 TAB DAILY PRN PRN PO (CKD) Simethicone (MYLICON) 160 MG Q6H PRN PRN PO Trazodone HCl (DESYREL) 50 MG BEDTIME PRN PRN PO ResultsFindings/Data:Laboratory Tests 05/04 05/03 05/03 05/03 0628 1957 1451 1118 Chemistry POC Glucose (70 - 119 MG/DL) 123 H 174 H 207 H 219 H Free Text Obj NotesFree Text Obj Notes:GENERAL APPEARANCE: He is awake, alert, oriented, not in acute distress, lyingcomfortably in the bed.HEENT: Atraumatic, normocephalic. Oral mucosa moist.NECK: Supple, no JVD.CARDIOVASCULAR: S1, S2 present, regular.LUNGS: Clear to auscultation.ABDOMEN: Soft, nontender, nondistended.SKIN: No rashes.NEUROLOGIC: No focal deficits.EXTREMITIES: LLE dressing in place with compression stocking over Diagnosis, Assessment Plan Free Text DxA P NotesFree text DxA P notes: This is a 56-year-old male with: Diabetic foot infection--Pt had had multiple procedures and 6 weeks IV abx prior to this hospitalization with persistent issues. Ortho was consulted and pt is s/p BKA. On 05/01/22 went for final I D and delayed primary closure. Cw abx as per ID. F/u culture results. PT/OT Uncontrolled Pain There is some component of phantom pain but majority is in the stump. Has neuropathic component as well--Cw [facility], cw anti-inflammatories, Wean off IV dilaudid with goal to go to inptrehab. Discussed at length with pt today regarding upcoming steps to get to rehab and importance of that in furthering his recovery and reducing risk of copmlications. --Depression seems to be contributing to pain as well. This was discussed with pt and he is reluctant to take medications he might not need. I will ask again for reading material to be provided. This would have the added benefit of helping some with chronic pain along with mood. Uncontrolled DMII [A1C 10.1]--BG now well controlled--Cw current insulin regimen--Cw SSI CAD s/p CABG 2016: Cw ASA, Plavix, statin, BBPAD: Cw above meds DVT ppx: Lovenox Resolved:--Pseudohyponatremia from Hyperglycemia D/w RN and pt at 1059 RPT #:[id number] OF REPORTPRProgress ysbf1361-36-01A07:57:00B.[id number] Available for patient kgbxBSIYDMHYDQIOMM5837-51-17C52:00:[address] [facility] 2022-05-04 09:23:00 [id number]+iZzwqP6ZSDr/ nFK9 DxOdR3/EjR5FNxWEt4DDFiC7RekRFlRO6148-64-70R4 9:23:[id number] [place], [place] [address] PATIENT NAME: BRIGHT SALAZAR ADMIT DATE: 04/26/22ACCOUNT NO: [id number] ROOM NO: [facility] AGE: 56 REPORT TYPE: PROGRESS NOTE SEX: M ADMITTING PHYSICIAN:Yung Loomis MD ATTENDING PHYSICIAN:Yuli Pink MD DATE: 05/04/2022 INFECTIOUS DISEASE PROGRESS NOTE TIME: 0922 hours. SUBJECTIVE: The patient is still having some diarrhea. Otherwise, he has nonew issues. OBJECTIVE:VITAL SIGNS: Noted.GENERAL: He is lying quietly in bed, awake, alert, and nontoxic.HEART: Regular rate. S1, S2.LUNGS: Clear.ABDOMEN: Soft. Bowel sounds are noted. Nondistended and nontender.EXTREMITIES: His left leg BKA site is dressed. Dressing is not removed. first assistant manager's notes from yesterday are in the computer and noted. His antimicrobial therapies are IV vancomycin per pharmacy protocol, as well asIV meropenem. ASSESSMENT:1. A 56-year-old male.2. Severe infection of the left foot requiring BKA and staged procedure.3. Afebrile.4. No significant leukocytosis. RECOMMENDATIONS: At the present time the patient is medically stable. At thispoint, I will stop his IV vancomycin and will continue the IV meropenem for another 1-3 days and if he continues to do well, I will discontinue that as well. The patient is cleared from my standpoint to go to inpatient rehab when that canbe arranged for him. This was discussed with the patient and all of hisquestions were answered. Dictated By: Jacquie De La Garza MD Date Dictated: 05/04/2022 09:23:08Date Transcribed: 05/04/2022 09:35:07/[facility] PATIENT NAME: BRIGHT SALAZAR Wlyaeqy ID: [id number] and Edited by Jacquie De La Garza MD On 05/04/22 9:53:02 AM at 0955 PATIENT NAME: BRIGHT SALAZAR [id number]:35:00B.[id number] vailable for patient sngmMRNVPKTKKJPSUS5469-27-72V78:55:[address] [facility] 2022-05-03 11:54:00 [id number]+pujMTu9qlEPN2Q 54RP /tXrwvbeIlzY7BZqaIMEjWIc0migTxdf2879-39-26B2 1:54:[id number] [address] PATIENT NAME: BRIGHT SALAZAR ADMIT DATE: 04/26/22ACCOUNT NO: [id number] ROOM NO: [facility] AGE: 56 REPORT TYPE: PROGRESS NOTE SEX: M ADMITTING PHYSICIAN:Yung Loomis MD ATTENDING PHYSICIAN:Yuli Pink MD DATE: 05/03/2022 INFECTIOUS DISEASE PROGRESS NOTE TIME: 1153 hours. SUBJECTIVE: The patient is working with occupational therapist. He is complaining of diarrhea yesterday, but none today. OBJECTIVE:VITAL SIGNS: Noted.GENERAL: He is lying quietly in bed, nontoxic.HEART: Regular rate. S1, S2 present.LUNGS: Clear.ABDOMEN: Soft. Bowel sounds are noted, nondistended and nontender.EXTREMITIES: His left BKA site is dressed. Dressing was not removed today. LABORATORY DATA: The patient has no new labs or cultures except for metabolic profile today showing a BUN of 11, creatinine 0.49. Vancomycin trough today is 8.4. first assistant manager's notes from today are in the computer and noted. His antimicrobial therapy is IV meropenem and IV vancomycin. ASSESSMENT:1. A 56-year-old male.2. Status post left below-knee amputation and a staged procedure due to severe infection of the left foot that was polymicrobial with Enterobacter cloacae, Enterococcus faecalis and Proteus vulgaris.3. Afebrile.4. No significant leukocytosis. RECOMMENDATION: At present time, the patient is medically stable. At this point, I recommend to continue his antibiotic therapy a couple of more days, then discontinue it. All of his questions were answered. He is [facility] to go to inpatient rehab when that can be arranged for him. Dictated By: Jacquie De La Garza MD Date Dictated: 05/03/2022 11:54:50Date Transcribed: 05/03/2022 12:36:09CC/JOSH/[facility] #: [id number] PATIENT NAME: BRIGHT SALAZAR Receipt ID: [id number] by Jacquie De La Garza MD On 05/03/2022 01:20:25 PM at 0120 PATIENT NAME: BRIGHT SALAZAR [id number]:36:00B.[id number] vailable for patient fyjhUQSVEZZSEBBADS6791-11-81Z54:20:57 [facility] 2022-05-03 11:44:00 [id number]UhK kqDn wZ4IKq90ZJbHr2A0bT3ZzuDjJDJPpH7X3162-06-39U9 1:44:00 [facility] Progress NoteREPORT#:[id number] REPORT STATUS: SignedDATE:05/03/22 TIME: 1144 PATIENT: BRIGHT SALAZAR UNIT #: [id number]#: [id number] [facility] [place] [birth year] AGE: 56 SEX: M ATTEND: Yuli Pink AUTHOR: Ana Riggs MD * ALL edits or amendments must be made on the electronic/computer document * Subjective Free Text Subj NotesFree Text Subj Notes:Pt had some improvement in his pain yesterday. But feels it is back up to 8/10 today. We again discussed goals of pain and formulated a plan of which medications to adjust. Objective GeneralVS/I O:Vital Signs: Date Time Temp Pulse Resp B/P B/P Pulse O2 O2 Flow FiO2 Mean Ox Delivery Rate 05/03 1119 97.7 73 15 130/69 89.5 98 05/03 0729 98.1 74 16 131/73 92.3 95 05/03 0540 98.2 77 12 138/71 93.8 97 Room air 05/03 0052 99.1 78 14 130/69 89.5 96 Room air 05/02 2054 98.4 79 14 148/72 97.1 96 Room air 05/02 1534 97.7 73 16 117/67 83.6 99 24 hour I O ending at 0700: 05/03 0700 05/02 1900 Intake Total 1000 Output Total 800 Balance 200 Intake, Oral 1000 Number 1 Bowel Movements Output, Urine 800 PATIENT WEIGHT: Weight (lb): 200Weight (oz): Weight (kg): 90.718 Medications:Active Meds + DC'd Last 24 HrsVancomycin/Sodium Chloride (Vancomycin 1,500 mg/500 mL) 500 ML Q12H IV Gabapentin (NEURONTIN) 800 MG TID PO Ketorolac Tromethamine (TORADOL) 15 MG Q6H IV Gabapentin (NEURONTIN) 300 MG TID PO (DC) Hydromorphone HCl (DILAUDID) 0.5 MG Q4H PRN PRN IV Hydrocodone Bitart/Acetaminophen (NORCO 10/325 TABLET) 2 TAB Q4H PRN PRN PO Vancomycin HCl (Vancomycin HCl) 1.25 GM Q12H IV (DC) Sodium Chloride (NORMAL SALINE 250 ML) 250 MLLoperamide HCl (IMODIUM) 2 MG Q6H PRN PRN PO Insulin Human NPH (HumuLIN N) 20 UNIT BID AC SUBQ Dextrose/Water (DEXTROSE 50%-WATER) 25 ML ASDIR PRN IV (CKD) Glucagon (GLUCAGON) 1 MG ASDIR PRN IM Glucose Polymer (GLUTOSE) 15 GM ASDIR PRN PO Insulin Human Lispro (HUMALOG) See Admin Criteria ASDIR PRN SUBQ Tramadol HCl (ULTRAM) 50 MG Q6HR PO Aspirin (ASPIRIN) 81 MG BID PO Metoprolol Tartrate (LOPRESSOR) 50 MG BID PO Pravastatin Sodium (PRAVASTATIN SODIUM) 20 MG BEDTIME PO Zolpidem Tartrate (AMBIEN) 10 MG BEDTIME PO Meropenem (MERREM) 500 MG Q6HR IV Sterile Water (STERILE WATER) 10 MLClopidogrel Bisulfate (PLAVIX) 75 MG DAILY PO Pantoprazole (PROTONIX) 40 MG DAILY PO Magnesium Sulfate (MAGNESIUM SULFATE 2GM/50ML BAG) 50 ML Q1H PRN PRN IV Magnesium Sulfate/Dextrose (MAGNESIUM SULFATE 1GM/D5W 100ML) 100 ML ASDIR PRN IV Potassium Chloride (K-DUR) 20 MEQ ASDIR PRN PO Potassium Chloride (K-DUR) 40 MEQ ASDIR PRN PO Potassium Chloride (K-DUR) 40 MEQ ASDIR PRN PO Potassium Chloride (KCL 10 MEQ/100ML) 100 ML Q1H PRN PRN IV Potassium Chloride (KCL 10 MEQ/100ML) 100 ML Q1H PRN PRN IV Potassium Chloride (KCL 10 MEQ/100ML) 100 ML Q1H PRN PRN IV Potassium Chloride (KCL 20 MEQ/100 ML) 100 ML Q1H PRN PRN IV Potassium Chloride (KCL 20 MEQ/100 ML) 100 ML Q1H PRN PRN IV Potassium Chloride (KCL 20 MEQ/100 ML) 100 ML Q1H PRN PRN IV Potassium Phos/Sodium Phos (PHOS-NAK PACKET) 1 PKT ASDIR PRN PO (CKD) Potassium Phosphate (Potassium Phosphate) 15 MMOL ASDIR PRN IV Sodium Chloride (NORMAL SALINE 250 ML) 250 MLPotassium Phosphate (Potassium Phosphate) 30 MMOL ASDIR PRN IV Sodium Chloride (SODIUM CHLORIDE 0.9% 500 ML) 500 MLAcetaminophen (TYLENOL) 650 MG Q4H PRN PRN PO Acetaminophen (TYLENOL) 650 MG Q6H PRN PRN RECTAL Al Hydrox/Mg Hydrox/Simethicone (MAALOX PLUS) 30 ML Q4H PRN PRN PO Calcium Carbonate (TUMS) 1,000 MG DAILY PRN PRN PO Clonidine HCl (CATAPRES) 0.1 MG Q6H PRN PRN PO Enoxaparin Sodium (LOVENOX) 40 MG Q24H SUBQ Guaifenesin/Dextromethorphan (ROBITUSSIN-DM) 10 ML QID PRN PRN PO Hydrocodone Bitart/Acetaminophen (NORCO 5/325 TABLET) 1 TAB Q4H PRN PRN PO Miscellaneous Information (VANCOMYCIN PHARMACY TO DOSE) 1 EACH ASDIR IV (CKD) Ondansetron HCl (ZOFRAN) 4 MG Q4H PRN PRN IV Senna (SENOKOT) 1 TAB DAILY PRN PRN PO (CKD) Simethicone (MYLICON) 160 MG Q6H PRN PRN PO Trazodone HCl (DESYREL) 50 MG BEDTIME PRN PRN PO ResultsFindings/Data:Laboratory Tests 05/03 05/03 05/03 05/02 1118 0539 0426 2056Chemistry Sodium (133 - 144 mmol/L) 136.0 Potassium (3.5 - 5.1 mmol/L) 3.6 Chloride (95 - 105 mmol/L) 103 Carbon Dioxide (21 - 32 mmol/L) 27 Anion Gap (4.0 - 15.0 GAP calc) 6.0 BUN (7 - 18 MG/DL) 11 Creatinine (0.55 - 1.30 MG/DL) 0.49 L Glomerular Filtr Rate (>60 estGFR) 120 Glucose (70 - 110 MG/DL) 186 H POC Glucose (70 - 119 MG/DL) 219 H 181 H 202 H Calcium (8.5 - 10.1 MG/DL) 8.4 L Specimen Appearance (1 NORMAL Index/DL) 1 NORMAL <2 MG Specimen Hemolysis (1 NORMAL Index/DL) 1 NORMAL <10 MG 05/02 1536 Chemistry POC Glucose (70 - 119 MG/DL) 128 H Laboratory Tests 05/03 0426 Toxicology Vancomycin Trough (10 - 20 mcG/ML) 8.4 L Free Text Obj NotesFree Text Obj Notes:GENERAL APPEARANCE: He is awake, alert, oriented, not in acute distress, lyingcomfortably in the bed.HEENT: Atraumatic, normocephalic. Oral mucosa moist.NECK: Supple, no JVD.CARDIOVASCULAR: S1, S2 present, regular.LUNGS: Clear to auscultation.ABDOMEN: Soft, nontender, nondistended.SKIN: No rashes.NEUROLOGIC: No focal deficits.EXTREMITIES: LLE dressing in place Diagnosis, Assessment Plan Free Text DxA P NotesFree text DxA P notes: This is a 56-year-old male with: Diabetic foot infection--Pt had had multiple procedures and 6 weeks IV abx prior to this hospitalization with persistent issues. Ortho was consulted and pt is s/p BKA. On 05/01/22 went for final I D and delayed primary closure. Cw abx as per ID. F/u culture results. PT/OT Uncontrolled Pain--Pain improved somewhat/slightly with regimen change yesterday. Has been unable to sleep. There is some component of phantom pain but majority is in thestump. Has neuropathic component as well--Cw [facility] and Dilaudid as is. Will add scheduled Toradol for 3 days. Will increase gabapentin (pt states was on ?1200 TID at one point perhaps)--Goal will be to gain adequate control on PO medications alone so that pt can transition to rehab to continue therapy which is the most important part of recovery now--Depression could be contributing to pain as well. This was discussed with pt and he is reluctant to take medications he might not need. Will provide him with some reading material on duloxetine as he would like to think about it further. This would have the added benefit of helping some with chronic pain along with mood. Uncontrolled DMII [A1C 10.1]--BG now well controlled--Cw current insulin regimen--Cw SSI CAD s/p CABG 2016: Cw ASA, Plavix, statin, BBPAD: Cw above meds DVT ppx: Lovenox Resolved:--Pseudohyponatremia from Hyperglycemia D/w RN and pt at 1150 RPT #:[id number] OF REPORTPRProgress [id number]:44:00B.[id number] Available for patient axtjZFLPSAQCQUDMBJ8270-06-35J31:50:[address] [facility] 2022-05-03 09:56:00 [id number]/gHWaasBS7qMkJBg 0pCs XigdOHRXxwHhx3F1LcFutlaKxDXu8pnf0420-14-82R6 9:56:00 [facility] ([facility])Orthopaedic Progress NoteREPORT#:[id number] REPORT STATUS: SignedDATE:05/03/22 TIME: 955 PATIENT: BRIGHT SALAZAR UNIT #: [id number]#: [id number] [facility] [place] [birth year] AGE: 56 SEX: M ATTEND: Yuli Pink MDAEDGAR AUTHOR: Dhiraj Herman MD * ALL edits or amendments must be made on the electronic/computer document * SubjectiveChief complaint:left foot gangrene Objective Physical ExamCardiovascular: regular rate rhythmRespiratory: no distressAbdomen: no guardingGenitourinary: no urinary catheterSkin: dry, intact Diagnosis, Assessment PlanFree text A P:56-year-old maleDOI: July 2020Mechanism: Frostbite and subsequent diabetic foot ulcerInjury: Left foot gangrene Procedure date: 04/27/2022rocedure:Left below-knee amputationWound VAC applicationSurgeon: Jasiel Lundberg MD Procedure date: 05/01/2022rocedure:Left below-knee amputation wound closureSurgeon: Dhiraj Herman MD Postoperative plan:Wound: Continue current dressings. May begin regular changes every 2-3 days as needed starting POD 3.Activity: Nonweightbearing left lower extremityIM: Appreciate medical management of this patientID: Continue IV antibiotics per ID recommendationsDVT: SCDs when in bed. DVT chemoprophylaxis to begin postop day 1 currently on Lovenox.Decub: Standard precautions. Inspect occiput, sacrum, heels daily. Encourage frequent turning, position changes.Dispo: PendingF/U: Follow with the orthopedic clinic in 3 weeks for repeat wound evaluation and staple removal. Follow-up sooner if there are any questions/concerns regarding the wound. Call [phone] to schedule appointment. at 0957 [facility] #:[id number] OF REPORTPRProgress [id number]:56:00B.[id number] Available for patient mwjaOBOFKARKUYEUOD3570-26-90T90:57:[address] [facility] 2022-05-03 07:32:00 [id number]+HwCt7PEuB+MHxm6ORpZ7 lihX am4rrPxnC82JWP+sdT1HTtLI8QdBoJXM0892-82-50S4 7:32:00 [facility] ([facility])Pharmacy Prog.Note-VancomycinREPORT#:[id number] REPORT STATUS: SignedDATE:05/03/22 TIME: 07 PATIENT: BRIGHT SALAZAR UNIT #: [id number]#: [id number] [facility] [place] [birth year] AGE: 56 SEX: M ATTEND: Yuli Pink [facility] AUTHOR: Shalonda Kenny RP * ALL edits or amendments must be made on the electronic/computer document * Vancomycin Vancomycin Medication TherapyGoal: 10-20 MCG/MLIndication for treatment:SSTICurrent therapy:Medication(s) Ordered:08:00 Sig/Ekta Start time Last Medication Dose Route Stop Time Status Admin Miscellaneous 1 EACH ASDIR 04/26 1200 CKD Information IV 05/08 2355 Anti-Infective Agents Sig/Ekta Start time Last Medication Dose Route Stop Time Status Admin Vancomycin/Sodium 500 ML Q12H 05/03 1600 AC Chloride IV 05/08 1559 Vancomycin HCl 1.25 GM Q12H 05/01 1700 DC 05/03 Sodium Chloride 250 ML IV 05/08 1701 0708 Meropenem 500 MG Q6HR 04/26 1800 AC 05/03 Sterile Water 10 ML IV 05/10 1759 0707 Weight: Actual weight (kg): 90.718Labs:Laboratory Tests: 05/03 426 Toxicology Vancomycin Trough (10 - 20 mcG/ML) 8.4 L Laboratory Test : 05/03 426 Chemistry BUN (7 - 18 MG/DL) 11 Creatinine (0.55 - 1.30 MG/DL) 0.49 L Microbiology:05/01 0626 NASAL: MRSA Screen - COMP Treatment plan: consult, change regimenFollow up: Lab:VT due 05/05 @ 1500Rationale:A/P* Pt is a 56 YO M with s/p BKA, pt is growing proteus vulgaris, enterobacter cloacae and enterococcus faecalis* Recommended de-escalation of vancomycin, but at this time wants to continue vancomycin* 05/03 @ 425 VT=8.4, subtherapeutic, will increase dose to vancomycin 1.5g IV q12 * VT due on 05/05 @ 0500, follow up at 0741 [facility] #:[id number] OF REPORTPRProgress [id number]:32:00B.[id number] Available for patient vmvpOOVICSUCYMEHOC9276-49-17S43:41:54 [facility] 2022-05-02 12:09:00 [id number]V/ 1tbB fR842mIoteCV1jmhKWIzlayrJY+FlKch5085-84-39Z8 2:09:00 [facility]Hospital[facility] Progress NoteREPORT#:[id number] REPORT STATUS: SignedDATE:05/02/22 TIME: 1209 PATIENT: BRIGHT SALAZAR UNIT #: [id number]#: [id number] [facility] [place] [birth year] AGE: 56 SEX: M ATTEND: Yuli Pink [facility] AUTHOR: Ana Riggs MD * ALL edits or amendments must be made on the electronic/computer document * Subjective Free Text Subj NotesFree Text Subj Notes:Pt complaining of significant pain that stays around 7-9. He had an occasional time a few days ago where pain was as good as 6/10. He does not remember what exactly improved the pain that well. he describes pain as in his L stump, throbbing and burning like it is on fire. He does have some phantom pain but majority is in the remaining limb itself. Morphine helps only marginally and lasts only a few minutes. Objective GeneralVS/I O:Vital Signs: Date Time Temp Pulse Resp B/P B/P Pulse O2 O2 Flow FiO2 Mean Ox Delivery Rate 05/02 1056 97.9 73 16 137/71 92.8 99 05/02 0741 97.5 75 16 171/82 111.4 98 05/02 0450 98.2 77 14 152/77 101.6 94 Room air 05/01 2357 98.8 78 14 142/69 93.2 92 Room air 05/01 1940 99.0 83 14 161/70 100.3 97 Room air 05/01 1627 98.4 76 16 160/79 105.7 91 05/01 1351 Room air 05/01 1345 98.3 69 20 130/68 94 Room air 05/01 1334 Simple 6 mask 05/01 1330 67 13 142/67 95 Room air 0 05/01 1325 67 11 143/63 100 05/01 1320 66 10 119/60 100 05/01 1316 98.8 66 12 116/57 100 Simple 6 mask 24 hour I O ending at 0700: 05/02 0700 05/01 1900 Intake Total Output Total 700 Balance -700 Output, Urine 700 PATIENT WEIGHT: Weight (lb): 200Weight (oz): Weight (kg): 90.718 Medications:Active Meds + DC'd Last 24 HrsGabapentin (NEURONTIN) 300 MG TID PO Hydromorphone HCl (DILAUDID) 0.5 MG Q4H PRN PRN IV Ketorolac Tromethamine (TORADOL) 30 MG ONCE ONE IV (DC) Morphine Sulfate (MORPHINE SULFATE) 4 MG ONCE ONE IV (CAN) Hydromorphone HCl (DILAUDID) 1 MG STAT STA IV (DC) Gabapentin (NEURONTIN) 100 MG TID PO (DC) Hydrocodone Bitart/Acetaminophen (NORCO 10/325 TABLET) 2 TAB Q4H PRN PRN PO Ketorolac Tromethamine (TORADOL) 15 MG ONCE ONE IV (DC) Vancomycin HCl (Vancomycin HCl) 1.25 GM Q12H IV Sodium Chloride (NORMAL SALINE 250 ML) 250 MLOndansetron HCl (ZOFRAN) 0 .STK-MED ONE .ROUTE (DC) Succinylcholine Chloride (QUELICIN, ANECTINE) 0 .STK-MED ONE .ROUTE (DC) Albuterol Sulfate (PROVENTIL NEB) 2.5 MG PACU ONCE PRN PRN NEB (DC) Dexamethasone Sodium Phosphate (DECADRON 4MG/ML) 4 MG PACU ONCE IV (DC) Fentanyl Citrate (SUBLIMAZE) 25 MCG PACU Q5MIN PRN PRN IV (DC) Hydromorphone HCl (DILAUDID) 0.25 MG PACU Q5MIN PRN PRN IV (DC) Ketorolac Tromethamine (TORADOL) 15 MG PACU ONCE IV (DC) Lactated Ringer's (LACTATED RINGERS) 1,000 ML PACU IV (DC) Metoprolol Tartrate (LOPRESSOR) 2 MG PACU Q5MIN PRN PRN IV (DC) Naloxone HCl (NARCAN) 0.1 MG PACU ONCE PRN PRN IV (DC) Ondansetron HCl (ZOFRAN) 4 MG PACU ONCE PRN PRN IV (DC) Loperamide HCl (IMODIUM) 2 MG Q6H PRN PRN PO Insulin Human NPH (HumuLIN N) 20 UNIT BID AC SUBQ Dextrose/Water (DEXTROSE 50%-WATER) 25 ML ASDIR PRN IV (CKD) Glucagon (GLUCAGON) 1 MG ASDIR PRN IM Glucose Polymer (GLUTOSE) 15 GM ASDIR PRN PO Insulin Human Lispro (HUMALOG) See Admin Criteria ASDIR PRN SUBQ Hydrocodone Bitart/Acetaminophen (NORCO 10/325 TABLET) 2 TAB Q6H PRN PRN PO (DC) Tramadol HCl (ULTRAM) 50 MG Q6HR PO Morphine Sulfate (morphine PF SYRINGE) 2 MG Q4H PRN PRN IV (DC) Aspirin (ASPIRIN) 81 MG BID PO Metoprolol Tartrate (LOPRESSOR) 50 MG BID PO Pravastatin Sodium (PRAVASTATIN SODIUM) 20 MG BEDTIME PO Vancomycin HCl (Vancomycin HCl) 1.25 GM Q12HR IV (DC) Sodium Chloride (NORMAL SALINE 250 ML) 250 MLZolpidem Tartrate (AMBIEN) 10 MG BEDTIME PO Meropenem (MERREM) 500 MG Q6HR IV Sterile Water (STERILE WATER) 10 MLClopidogrel Bisulfate (PLAVIX) 75 MG DAILY PO Pantoprazole (PROTONIX) 40 MG DAILY PO Magnesium Sulfate (MAGNESIUM SULFATE 2GM/50ML BAG) 50 ML Q1H PRN PRN IV Magnesium Sulfate/Dextrose (MAGNESIUM SULFATE 1GM/D5W 100ML) 100 ML ASDIR PRN IV Potassium Chloride (K-DUR) 20 MEQ ASDIR PRN PO Potassium Chloride (K-DUR) 40 MEQ ASDIR PRN PO Potassium Chloride (K-DUR) 40 MEQ ASDIR PRN PO Potassium Chloride (KCL 10 MEQ/100ML) 100 ML Q1H PRN PRN IV Potassium Chloride (KCL 10 MEQ/100ML) 100 ML Q1H PRN PRN IV Potassium Chloride (KCL 10 MEQ/100ML) 100 ML Q1H PRN PRN IV Potassium Chloride (KCL 20 MEQ/100 ML) 100 ML Q1H PRN PRN IV Potassium Chloride (KCL 20 MEQ/100 ML) 100 ML Q1H PRN PRN IV Potassium Chloride (KCL 20 MEQ/100 ML) 100 ML Q1H PRN PRN IV Potassium Phos/Sodium Phos (PHOS-NAK PACKET) 1 PKT ASDIR PRN PO (CKD) Potassium Phosphate (Potassium Phosphate) 15 MMOL ASDIR PRN IV Sodium Chloride (NORMAL SALINE 250 ML) 250 MLPotassium Phosphate (Potassium Phosphate) 30 MMOL ASDIR PRN IV Sodium Chloride (SODIUM CHLORIDE 0.9% 500 ML) 500 MLAcetaminophen (TYLENOL) 650 MG Q4H PRN PRN PO Acetaminophen (TYLENOL) 650 MG Q6H PRN PRN RECTAL Al Hydrox/Mg Hydrox/Simethicone (MAALOX PLUS) 30 ML Q4H PRN PRN PO Calcium Carbonate (TUMS) 1,000 MG DAILY PRN PRN PO Clonidine HCl (CATAPRES) 0.1 MG Q6H PRN PRN PO Enoxaparin Sodium (LOVENOX) 40 MG Q24H SUBQ Guaifenesin/Dextromethorphan (ROBITUSSIN-DM) 10 ML QID PRN PRN PO Hydrocodone Bitart/Acetaminophen (NORCO 5/325 TABLET) 1 TAB Q4H PRN PRN PO Hydrocodone Bitart/Acetaminophen (NORCO 10/325 TABLET) 1 TAB Q4H PRN PRN PO (DC) Miscellaneous Information (VANCOMYCIN PHARMACY TO DOSE) 1 EACH ASDIR IV (CKD) Ondansetron HCl (ZOFRAN) 4 MG Q4H PRN PRN IV Senna (SENOKOT) 1 TAB DAILY PRN PRN PO (CKD) Simethicone (MYLICON) 160 MG Q6H PRN PRN PO Trazodone HCl (DESYREL) 50 MG BEDTIME PRN PRN PO ResultsFindings/Data:Laboratory Tests 05/02 05/02 05/02 05/01 1059 0459 0448 1942Chemistry Sodium (133 - 144 mmol/L) 132.0 L Potassium (3.5 - 5.1 mmol/L) 3.6 Chloride (95 - 105 mmol/L) 99 Carbon Dioxide (21 - 32 mmol/L) 29 Anion Gap (4.0 - 15.0 GAP calc) 4.0 BUN (7 - 18 MG/DL) 11 Creatinine (0.55 - 1.30 MG/DL) 0.60 Glomerular Filtr Rate (>60 estGFR) 113 Glucose (70 - 110 MG/DL) 231 H POC Glucose (70 - 119 MG/DL) 230 H 223 H 131 H Calcium (8.5 - 10.1 MG/DL) 8.3 L Specimen Appearance (1 NORMAL 1 NORMAL <2 MGIndex/DL) Specimen Hemolysis (1 NORMAL 1 NORMAL <10 MGIndex/DL) 05/01 05/01 1630 1348 Chemistry POC Glucose (70 - 119 MG/DL) 150 H 111 Free Text Obj NotesFree Text Obj Notes:GENERAL APPEARANCE: He is awake, alert, oriented, not in acute distress, lyingcomfortably in the bed.HEENT: Atraumatic, normocephalic. Oral mucosa moist.NECK: Supple, no JVD.CARDIOVASCULAR: S1, S2 present, regular.LUNGS: Clear to auscultation.ABDOMEN: Soft, nontender, nondistended.SKIN: No rashes.NEUROLOGIC: No focal deficits.EXTREMITIES: LLE dressing in place Diagnosis, Assessment Plan Free Text DxA P NotesFree text DxA P notes: This is a 56-year-old male with: Diabetic foot infection--Pt had had multiple procedures and 6 weeks IV abx prior to this hospitalization with persistent issues. Ortho was consulted and pt is s/p BKA. On 05/01/22 went for final I D and delayed primary closure. Cw abx as per ID. F/u culture results. PT/OT Uncontrolled Pain--Pt with minimal relief from pain with current regimen. Has been unable to sleep. There is some component of phantom pain but majority is in the stump. Has neuropathic component as well--Will give Dilaudid 1 mg IV x1 now as pt endorsing 8-9/10 pain currently--Will change morphine to dilaudid for breakthrough--Trial of Toradol as might work better for bone pain--Increase gabapentin for neuropathic pain--Cw [facility] 10-325 2 tabs q4h prn Uncontrolled DMII [A1C 10.1]--BG now well controlled--Cw current insulin regimen--Cw SSI CAD s/p CABG 2016: Cw ASA, Plavix, statin, BBPAD: Cw above meds DVT ppx: Lovenox Resolved:--Pseudohyponatremia from Hyperglycemia D/w RN and pt at 1216 [facility] #:[id number] OF REPORTPRProgress [id number]:09:[id number] Available for patient [id number]:16:[address] [facility] 2022-05-02 09:32:00 [id number] XaQF yj4jPGCo7XF8LTqvzeYCnx0HUhmQieSN0822-08-12W0 9:32:131482-3852 [place] [address] PATIENT NAME: BRIGHT SALAZAR ADMIT DATE: 04/26/22ACCOUNT NO: [id number] ROOM NO: [id number] AGE: 56 REPORT TYPE: PROGRESS NOTE SEX: M ADMITTING PHYSICIAN:Yung Loomis MD ATTENDING PHYSICIAN:Yuli Pink MD DATE: 05/02/2022 INFECTIOUS DISEASE PROGRESS NOTE TIME: 0927 hours. Operative report from yesterday is read and noted. The patient has no wound VAC in place. SUBJECTIVE: The patient complained about to be confused and also a lot of painof his left leg. He had questions is about going to rehabilitation and I told him from my standpoint, he is cleared to go to inpatient rehab. When his wound is healing well and if he continues to do well, then his antibiotic therapy can be discontinued. All his questions were answered. Dictated By: Jacquie De La Garza MD Date Dictated: 05/02/2022 09:32:45Date Transcribed: 05/02/2022 09:41:59CC/Brenda #: [id number] ID: [id number] and Edited by Jacquie De La Garza MD On 05/02/22 11:51:24 AM at 1153 PATIENT NAME: BRIGHT SALAZAR [id number]:41:00B.[id number] vailable for patient [id number]:54:06 [facility] 2022-05-02 09:21:00 [id number]++[id number] PhWr buhr6+TVnXRF1p/z17AJr1P8THcH6lzX1310-64-30L3 9:21:00 [facility] Progress NoteREPORT#:[id number] REPORT STATUS: SignedDATE:05/02/22 TIME: 920 PATIENT: BRIGHT SALAZAR UNIT #: [id number]#: [id number] [facility] [place] [birth year] AGE: 56 SEX: M ATTEND: Yuli Pink [facility] AUTHOR: Kush Shepard IV PA * ALL edits or amendments must be made on the electronic/computer document * Kush Shepard 05/02/22 0921:SubjectiveComments:Patient now POD 1 s/p left BKA stump wound closure by Dr. Herman. Patient denies additional acute orthopedic concerns at present. However, overnight did appreciate tightness due to the wrapping, this was loosened by RN. ObjectiveVS:Last Documented: Result Date Time Pulse Ox 98 05/02 741 B/P 171/82 05/02 741 B/P Mean 111.4 05/02 741 Temp 97.5 05/02 741 Pulse 75 05/02 741 Resp 16 05/02 741 O2 Delivery Room air 05/02 0450 O2 Flow Rate 6 05/01 1334 PATIENT WEIGHT: Weight (lb): 200Weight (oz): Weight (kg): 90.718 Medications:Active Meds + DC'd Last 24 HrsGabapentin (NEURONTIN) 100 MG TID PO Hydrocodone Bitart/Acetaminophen (NORCO 10/325 TABLET) 2 TAB Q4H PRN PRN PO Ketorolac Tromethamine (TORADOL) 15 MG ONCE ONE IV (DC) Vancomycin HCl (Vancomycin HCl) 1.25 GM Q12H IV Sodium Chloride (NORMAL SALINE 250 ML) 250 MLOndansetron HCl (ZOFRAN) 0 .STK-MED ONE .ROUTE (DC) Succinylcholine Chloride (QUELICIN, ANECTINE) 0 .STK-MED ONE .ROUTE (DC) Fentanyl Citrate (SUBLIMAZE) 0 .STK-MED ONE .ROUTE (DC) Midazolam HCl (VERSED) 0 .STK-MED ONE .ROUTE (DC) Lidocaine HCl (LIDOCAINE HCL 4%) 0 .STK-MED ONE .ROUTE (DC) Lidocaine HCl (XYLOCAINE 1% 5ML) 5 ML .STK-MED ONE IV (DC) Propofol (DIPRIVAN) 20 ML .STK-MED ONE IV (DC) Albuterol Sulfate (PROVENTIL NEB) 2.5 MG PACU ONCE PRN PRN NEB (DC) Dexamethasone Sodium Phosphate (DECADRON 4MG/ML) 4 MG PACU ONCE IV (DC) Fentanyl Citrate (SUBLIMAZE) 25 MCG PACU Q5MIN PRN PRN IV (DC) Hydromorphone HCl (DILAUDID) 0.25 MG PACU Q5MIN PRN PRN IV (DC) Ketorolac Tromethamine (TORADOL) 15 MG PACU ONCE IV (DC) Lactated Ringer's (LACTATED RINGERS) 1,000 ML PACU IV (DC) Metoprolol Tartrate (LOPRESSOR) 2 MG PACU Q5MIN PRN PRN IV (DC) Naloxone HCl (NARCAN) 0.1 MG PACU ONCE PRN PRN IV (DC) Ondansetron HCl (ZOFRAN) 4 MG PACU ONCE PRN PRN IV (DC) Loperamide HCl (IMODIUM) 2 MG Q6H PRN PRN PO Insulin Human NPH (HumuLIN N) 20 UNIT BID AC SUBQ Dextrose/Water (DEXTROSE 50%-WATER) 25 ML ASDIR PRN IV (CKD) Glucagon (GLUCAGON) 1 MG ASDIR PRN IM Glucose Polymer (GLUTOSE) 15 GM ASDIR PRN PO Insulin Human Lispro (HUMALOG) See Admin Criteria ASDIR PRN SUBQ Hydrocodone Bitart/Acetaminophen (NORCO 10/325 TABLET) 2 TAB Q6H PRN PRN PO (DC) Tramadol HCl (ULTRAM) 50 MG Q6HR PO Morphine Sulfate (morphine PF SYRINGE) 2 MG Q4H PRN PRN IV Aspirin (ASPIRIN) 81 MG BID PO Metoprolol Tartrate (LOPRESSOR) 50 MG BID PO Pravastatin Sodium (PRAVASTATIN SODIUM) 20 MG BEDTIME PO Vancomycin HCl (Vancomycin HCl) 1.25 GM Q12HR IV (DC) Sodium Chloride (NORMAL SALINE 250 ML) 250 MLZolpidem Tartrate (AMBIEN) 10 MG BEDTIME PO Meropenem (MERREM) 500 MG Q6HR IV Sterile Water (STERILE WATER) 10 MLClopidogrel Bisulfate (PLAVIX) 75 MG DAILY PO Pantoprazole (PROTONIX) 40 MG DAILY PO Magnesium Sulfate (MAGNESIUM SULFATE 2GM/50ML BAG) 50 ML Q1H PRN PRN IV Magnesium Sulfate/Dextrose (MAGNESIUM SULFATE 1GM/D5W 100ML) 100 ML ASDIR PRN IV Potassium Chloride (K-DUR) 20 MEQ ASDIR PRN PO Potassium Chloride (K-DUR) 40 MEQ ASDIR PRN PO Potassium Chloride (K-DUR) 40 MEQ ASDIR PRN PO Potassium Chloride (KCL 10 MEQ/100ML) 100 ML Q1H PRN PRN IV Potassium Chloride (KCL 10 MEQ/100ML) 100 ML Q1H PRN PRN IV Potassium Chloride (KCL 10 MEQ/100ML) 100 ML Q1H PRN PRN IV Potassium Chloride (KCL 20 MEQ/100 ML) 100 ML Q1H PRN PRN IV Potassium Chloride (KCL 20 MEQ/100 ML) 100 ML Q1H PRN PRN IV Potassium Chloride (KCL 20 MEQ/100 ML) 100 ML Q1H PRN PRN IV Potassium Phos/Sodium Phos (PHOS-NAK PACKET) 1 PKT ASDIR PRN PO (CKD) Potassium Phosphate (Potassium Phosphate) 15 MMOL ASDIR PRN IV Sodium Chloride (NORMAL SALINE 250 ML) 250 MLPotassium Phosphate (Potassium Phosphate) 30 MMOL ASDIR PRN IV Sodium Chloride (SODIUM CHLORIDE 0.9% 500 ML) 500 MLAcetaminophen (TYLENOL) 650 MG Q4H PRN PRN PO Acetaminophen (TYLENOL) 650 MG Q6H PRN PRN RECTAL Al Hydrox/Mg Hydrox/Simethicone (MAALOX PLUS) 30 ML Q4H PRN PRN PO Calcium Carbonate (TUMS) 1,000 MG DAILY PRN PRN PO Clonidine HCl (CATAPRES) 0.1 MG Q6H PRN PRN PO Enoxaparin Sodium (LOVENOX) 40 MG Q24H SUBQ Guaifenesin/Dextromethorphan (ROBITUSSIN-DM) 10 ML QID PRN PRN PO Hydrocodone Bitart/Acetaminophen (NORCO 5/325 TABLET) 1 TAB Q4H PRN PRN PO Hydrocodone Bitart/Acetaminophen (NORCO 10/325 TABLET) 1 TAB Q4H PRN PRN PO Miscellaneous Information (VANCOMYCIN PHARMACY TO DOSE) 1 EACH ASDIR IV (CKD) Ondansetron HCl (ZOFRAN) 4 MG Q4H PRN PRN IV Senna (SENOKOT) 1 TAB DAILY PRN PRN PO (CKD) Simethicone (MYLICON) 160 MG Q6H PRN PRN PO Trazodone HCl (DESYREL) 50 MG BEDTIME PRN PRN PO Physical ExamGeneral appearance: alert, awake, no acute distress, no respiratory distress ResultsFindings/data:Musculoskeletal:LLE: The left lower extremity wound was redressed and a new gently compressive circumferential stockinette covering was applied, patient noting tolerable gentle pressure. The wound is without active drainage or dehiscence. Remains well approximated with no fixed blanched areas or areas of redness adjacent to the incision. The stump remains appropriately tender but soft and compressible throughout the remainder of the leg with no discoloration or duskiness. Laboratory Tests 05/02 05/02 05/01 05/01 0459 0448 1942 1630Chemistry Sodium (133 - 144 mmol/L) 132.0 L Potassium (3.5 - 5.1 mmol/L) 3.6 Chloride (95 - 105 mmol/L) 99 Carbon Dioxide (21 - 32 mmol/L) 29 Anion Gap (4.0 - 15.0 GAP calc) 4.0 BUN (7 - 18 MG/DL) 11 Creatinine (0.55 - 1.30 MG/DL) 0.60 Glomerular Filtr Rate (>60 estGFR) 113 Glucose (70 - 110 MG/DL) 231 H POC Glucose (70 - 119 MG/DL) 223 H 131 H 150 H Calcium (8.5 - 10.1 MG/DL) 8.3 L Specimen Appearance (1 NORMAL Index/DL) 1 NORMAL <2 MG Specimen Hemolysis (1 NORMAL Index/DL) 1 NORMAL <10 MG 05/01 1348 Chemistry POC Glucose (70 - 119 MG/DL) 111 Diagnosis, Assessment PlanFree text A P:56-year-old maleDOI: July 2020Mechanism: Frostbite and subsequent diabetic foot ulcerInjury: Left foot gangrene Procedure date: 04/27/2022rocedure:Left below-knee amputationWound VAC applicationSurgeon: Jasiel Lundberg MD Procedure date: 05/01/2022rocedure:Left below-knee amputation wound closureSurgeon: Dhiraj Herman MD Postoperative plan:Wound: Continue current dressings. May begin regular changes every 2-3 days as needed starting POD 3.Activity: Nonweightbearing left lower extremityIM: Appreciate medical management of this patientID: Continue IV antibiotics per ID recommendationsDVT: SCDs when in bed. DVT chemoprophylaxis to begin postop day 1 currently on Lovenox.Decub: Standard precautions. Inspect occiput, sacrum, heels daily. Encourage frequent turning, position changes.Dispo: PendingF/U: Follow with the orthopedic clinic in 3 weeks for repeat wound evaluation and staple removal. Follow-up sooner if there are any questions/concerns regarding the wound. Call [phone] to schedule appointment. Dhiraj Herman. 05/03/22 1006:Attestations Physician AttestationAgree w/findings plan:Patient seen and examined. Agree with the findings and plan as documented by NICHOLE Dumont. at 0927 at 1008 RPT #:[id number] OF REPORTPRProgress [id number]:21:[id number] Available for patient [id number]:28:[address] [facility] 2022-05-01 16:33:00 [id number] [facility] LLfBRUbMUKWjLKQrT/ipIxWmZObiVgph7169-41-36O9 6:33:[id number] [place], [place] [address] PATIENT NAME: BRIGHT SALAZAR ADMIT DATE: 04/26/22ACCOUNT NO: [id number] ROOM NO: [facility] AGE: 56 REPORT TYPE: REPORT OF OPERATION SEX: M ADMITTING PHYSICIAN:Yung Loomis MD ATTENDING PHYSICIAN:Yuli Pink MD OPERATION DATE: 05/01/2022 PREOPERATIVE DIAGNOSIS: Left diabetic foot infection, status post below-knee amputation with the wound unable to be completely closed postoperatively. POSTOPERATIVE DIAGNOSIS: Left diabetic foot infection, status post below-knee amputation with the wound unable to be completely closed postoperatively. PROCEDURE: Irrigation and debridement of left below-knee amputation stump with delayed primary wound closure. SURGEON: Dhiraj Herman MD CONE TREATER: Britt Brady, licensed assistant to the director. ANESTHESIA: General endotracheal anesthesia. ESTIMATED BLOOD LOSS: Less than 50 mL. SPECIMENS: None. COMPLICATIONS: None. DRAINS: None. DESCRIPTION OF PROCEDURE: After identification in the preoperative holding area, the patient was taken to the operative suite, where he was placed in supine position on the operative table. All bony prominences were well padded. A tourniquet was placed on the left proximal thigh, but never inflated. The dressing was taken down from the left below-knee amputation and the area was prepped and draped in the usual standard fashion. I then copiously irrigated the operative bed with 3 liters of normal saline under pulsatile lavage. I ended up shortening the tibia just a centimeter or 2 with an oscillating saw before closing the fascia of the posterior musculature to the anterior periosteum and anterior compartment fascia with 0 Vicryl suture, the subcutaneous tissue with 2-0 Vicryl, and jia for the skin. Sterile dressings were then applied including Xeroform, 4 x 4's, ABDs, and Webril and Miguel A wrap. All sponge and needle counts were then correct. General anesthesia was reversed, and he was returned to recovery in stable condition. Dictated By: Dhiraj Herman MD PATIENT NAME: BRIGHT SALAZAR Date Dictated: 05/01/2022 16:33:54Date Transcribed: 05/01/2022 19:18:31GJE/OPAL/Zuleyma #: [id number] ID: [id number] by Dhiraj Herman MD On 05/07/2022 03:20:15 PM at 0320 PATIENT NAME: BRIGHT SALAZAR [id number]:18:00B.[id number] VAvailable for patient apigWDACWALAULGHYG2629-79-41X63:20:[address] [facility] 2022-05-01 09:10:00 [id number] Ql+w L3LWLedCx8RyxBYtJblvTF8bdWXN7Mes9957-28-34M4 9:10:00 [facility] CenterHospital[facility] Progress NoteREPORT#:[id number] REPORT STATUS: SignedDATE:05/01/22 TIME: 0910 PATIENT: BRIGHT SALAZAR UNIT #: [id number]#: [id number] [facility] [place] [birth year] AGE: 56 SEX: M ATTEND: Yuli Pink [facility] AUTHOR: Ana Riggs MD * ALL edits or amendments must be made on the electronic/computer document * Subjective Free Text Subj NotesFree Text Subj Notes:Pt a bit confused this morning. Says he is back and has not had good customer service. When asked if there was something that needed addressed/improved upon, he said no. Denies any new complaints. States his last BM was yesterday. Says he has been eating well. Is NPO this morning. Objective GeneralVS/I O:Vital Signs: Date Time Temp Pulse Resp B/P B/P Pulse O2 O2 Flow FiO2 Mean Ox Delivery Rate 05/01 731 98.4 74 16 157/79 105.0 94 05/01 0428 98.4 81 14 159/77 104.4 95 Room air 05/01 0341 98 Room air 05/01 0212 98.6 88 14 190/81 117.8 96 Room air 04/30 2036 98.2 80 12 145/74 97.4 98 Room air 04/30 1522 97.9 72 14 114/66 81.8 97 Room air 04/30 1147 98.2 82 14 114/64 81.0 99 Room air 24 hour I O ending at 0700: 05/01 0700 04/30 1900 Intake Total 250.00 250.00 Output Total 900 350 Balance -650.00 -100.00 Intake, IV 250.00 250.00 Output, 50 Drainage Output, Urine 900 300 PATIENT WEIGHT: Weight (lb): 200Weight (oz): Weight (kg): 90.718 Medications:Active Meds + DC'd Last 24 HrsLoperamide HCl (IMODIUM) 2 MG Q6H PRN PRN PO Insulin Human NPH (HumuLIN N) 20 UNIT BID AC SUBQ Dextrose/Water (DEXTROSE 50%-WATER) 25 ML ASDIR PRN IV (CKD) Glucagon (GLUCAGON) 1 MG ASDIR PRN IM Glucose Polymer (GLUTOSE) 15 GM ASDIR PRN PO Insulin Human Lispro (HUMALOG) See Admin Criteria ASDIR PRN SUBQ Hydrocodone Bitart/Acetaminophen (NORCO 10/325 TABLET) 2 TAB Q6H PRN PRN PO Methocarbamol (ROBAXIN) 500 MG Q6HR IV (DC) Gabapentin (NEURONTIN) 300 MG TID PO (DC) Tramadol HCl (ULTRAM) 50 MG Q6HR PO Morphine Sulfate (morphine PF SYRINGE) 2 MG Q4H PRN PRN IV Aspirin (ASPIRIN) 81 MG BID PO (r) Metoprolol Tartrate (LOPRESSOR) 50 MG BID PO Pravastatin Sodium (PRAVASTATIN SODIUM) 20 MG BEDTIME PO Vancomycin HCl (Vancomycin HCl) 1.25 GM Q12HR IV Sodium Chloride (NORMAL SALINE 250 ML) 250 MLZolpidem Tartrate (AMBIEN) 10 MG BEDTIME PO Meropenem (MERREM) 500 MG Q6HR IV Sterile Water (STERILE WATER) 10 MLClopidogrel Bisulfate (PLAVIX) 75 MG DAILY PO (r) Pantoprazole (PROTONIX) 40 MG DAILY PO Magnesium Sulfate (MAGNESIUM SULFATE 2GM/50ML BAG) 50 ML Q1H PRN PRN IV Magnesium Sulfate/Dextrose (MAGNESIUM SULFATE 1GM/D5W 100ML) 100 ML ASDIR PRN IV Potassium Chloride (K-DUR) 20 MEQ ASDIR PRN PO Potassium Chloride (K-DUR) 40 MEQ ASDIR PRN PO Potassium Chloride (K-DUR) 40 MEQ ASDIR PRN PO Potassium Chloride (KCL 10 MEQ/100ML) 100 ML Q1H PRN PRN IV Potassium Chloride (KCL 10 MEQ/100ML) 100 ML Q1H PRN PRN IV Potassium Chloride (KCL 10 MEQ/100ML) 100 ML Q1H PRN PRN IV Potassium Chloride (KCL 20 MEQ/100 ML) 100 ML Q1H PRN PRN IV Potassium Chloride (KCL 20 MEQ/100 ML) 100 ML Q1H PRN PRN IV Potassium Chloride (KCL 20 MEQ/100 ML) 100 ML Q1H PRN PRN IV Potassium Phos/Sodium Phos (PHOS-NAK PACKET) 1 PKT ASDIR PRN PO (CKD) Potassium Phosphate (Potassium Phosphate) 15 MMOL ASDIR PRN IV Sodium Chloride (NORMAL SALINE 250 ML) 250 MLPotassium Phosphate (Potassium Phosphate) 30 MMOL ASDIR PRN IV Sodium Chloride (SODIUM CHLORIDE 0.9% 500 ML) 500 MLAcetaminophen (TYLENOL) 650 MG Q4H PRN PRN PO Acetaminophen (TYLENOL) 650 MG Q6H PRN PRN RECTAL Al Hydrox/Mg Hydrox/Simethicone (MAALOX PLUS) 30 ML Q4H PRN PRN PO Calcium Carbonate (TUMS) 1,000 MG DAILY PRN PRN PO Clonidine HCl (CATAPRES) 0.1 MG Q6H PRN PRN PO Enoxaparin Sodium (LOVENOX) 40 MG Q24H SUBQ Guaifenesin/Dextromethorphan (ROBITUSSIN-DM) 10 ML QID PRN PRN PO Hydrocodone Bitart/Acetaminophen (NORCO 5/325 TABLET) 1 TAB Q4H PRN PRN PO Hydrocodone Bitart/Acetaminophen (NORCO 10/325 TABLET) 1 TAB Q4H PRN PRN PO Miscellaneous Information (VANCOMYCIN PHARMACY TO DOSE) 1 EACH ASDIR IV (CKDr) Ondansetron HCl (ZOFRAN) 4 MG Q4H PRN PRN IV Senna (SENOKOT) 1 TAB DAILY PRN PRN PO (CKD) Simethicone (MYLICON) 160 MG Q6H PRN PRN PO Trazodone HCl (DESYREL) 50 MG BEDTIME PRN PRN PO ResultsFindings/Data:Laboratory Tests 05/01 05/01 04/30 04/30 0425 0419 2036 1521Chemistry Sodium (133 - 144 mmol/L) 134.0 Potassium (3.5 - 5.1 mmol/L) 3.4 L Chloride (95 - 105 mmol/L) 102 Carbon Dioxide (21 - 32 mmol/L) 27 Anion Gap (4.0 - 15.0 GAP calc) 5.0 BUN (7 - 18 MG/DL) 10 Creatinine (0.55 - 1.30 MG/DL) 0.50 L Glomerular Filtr Rate (>60 estGFR) 120 Glucose (70 - 110 MG/DL) 156 H POC Glucose (70 - 119 MG/DL) 146 H 147 H 102 Calcium (8.5 - 10.1 MG/DL) 8.2 L Specimen Appearance (1 NORMAL Index/DL) 1 NORMAL <2 MG Specimen Hemolysis (1 NORMAL Index/DL) 1 NORMAL <10 MG 04/30 1146 Chemistry POC Glucose (70 - 119 MG/DL) 133 H Free Text Obj NotesFree Text Obj Notes:GENERAL APPEARANCE: He is awake, alert, oriented, not in acute distress, lyingcomfortably in the bed.HEENT: Atraumatic, normocephalic. Oral mucosa moist.NECK: Supple, no JVD.CARDIOVASCULAR: S1, S2 present, regular.LUNGS: Clear to auscultation.ABDOMEN: Soft, nontender, nondistended.SKIN: No rashes.NEUROLOGIC: No focal deficits.EXTREMITIES: LLE dressing in place Diagnosis, Assessment Plan Free Text DxA P NotesFree text DxA P notes: This is a 56-year-old male with:1. Diabetic foot infection. The patient had multiple procedures and alsofinished 6 weeks of IV antibiotics prior to hospitalization. Follow culture results. Continue antibiotics as per ID. Orthopedics is consulted and patient is s/p BKA, wound not closed at this time. Continue postop care as per orthopedics recommendations.Discussed with orthopedics and recommends to hold aspirin and Plavix for couple days. Aspirin and Plavix resumed. Going for repeat washout and possible closure today2. Diabetes is uncontrolled. Hemoglobin A1c is 10.1. Continue NPH and slidingscale of insulin and monitor blood sugars. BG well controlled. 3. History of coronary artery disease status post coronary artery bypass graftx4 in 2016. Continue aspirin, Plavix, statin and beta marcell. No acute issuesat this time.4. History of peripheral vascular disease. Continue secondary prevention.5. Deep venous thrombosis prophylaxis with Lovenox.6. Hyponatremia. This is most likely pseudohyponatremia from elevated bloodsugars. Resolved.7. Confusion: Pt mildly confused today. Robaxin and gabapentin d/c'd. Monitor labs and clinical course. D/w RNDVT ppx: Lovenox at 0914 RPT #:[id number] OF REPORTPRProgress [id number]:10:00B.[id number] Available for patient dlyuLWTLRUDFSTGYBI8253-67-76T35:14:[address] [facility] 2022-05-01 08:38:00 [id number] gSlN FBhytEeyl2L3Q/kzzlBMZoGA92gk6GSX4860-89-37C8 8:38:[id number] [place] [address] PATIENT NAME: BRIGHT SALAZAR ADMIT DATE: 04/26/22ACCOUNT NO: [id number] ROOM NO: [facility] AGE: 56 REPORT TYPE: PROGRESS NOTE SEX: M ADMITTING PHYSICIAN:Yung Loomis MD ATTENDING PHYSICIAN:Yuli Pink MD DATE: 05/01/2022 INFECTIOUS DISEASE PROGRESS NOTE TIME: 0836 hours. SUBJECTIVE: The patient is quite somnolent and difficult to awaken, but when heis awake, he answers appropriately. He has no new issues or complaints. Whenasked, he denies any pain. Case discussed with the floor nurse and apparently he is scheduled for surgery today. OBJECTIVE:VITAL SIGNS: Noted.GENERAL: He is afebrile, lying quietly in bed, nontoxic.HEART: Regular rate, S1, S2.LUNGS: Have poor breath sounds at the bases.ABDOMEN: Soft and quiet.EXTREMITIES: Left BKA site is dressed. Dressing is not removed. Also, has awound VAC in place. LABORATORY DATA: The patient's culture of his left foot from 04/26/2022 grewProteus vulgaris, Enterococcus faecalis, and Enterobacter cloacae. Casediscussed yesterday with the clinical pharmacist in regards to his antibiotictherapy. The patient's white count 7600 yesterday and yesterday's hemoglobin was 11.4 andplatelet count is 236,000. His metabolic profile today shows a BUN of 10,creatinine 0.50. first assistant manager's notes are in the computer, noted. His antimicrobial therapies are IV vancomycin per pharmacy protocol, as well asIV meropenem. ASSESSMENT:1. A 56-year-old male.2. Polymicrobial left foot infection non-salvageable, status post left belowthe knee amputation with revision and to go to the operating room again today.3. History of tobacco abuse.4. Peripheral vascular disease. PATIENT NAME: BRIGHT SALAZAR RECOMMENDATIONS: At the present time, the patient is medically stable. Whilehe is still getting his debridements, I recommend to continue his antimicrobialtherapy. I will follow along and make recommendations as needed. All of his questions were answered. Dictated By: Jacquie De La Garza MD Date Dictated: 05/01/2022 08:38:20Date Transcribed: 05/01/2022 09:05:25CC/MAHAMED/Eddie #: [id number] ID: [id number] and Edited by Jacquie De La Garza MD On 05/01/22 10:56:03 AM at 1057 PATIENT NAME: BRIGHT SALAZAR [id number]:05:00B.[id number] vailable for patient ufbbJVWWBNWYWNUFHO8063-45-62X87:57:45 [facility] 2022-05-01 08:05:00 [id number] NtZz v/uhRHwQQzf0bEVomfgvhNon31tz2TdP9900-18-50K6 8:05:00 [facility] ([facility])Hospitalist Progress NoteREPORT#:[id number] REPORT STATUS: SignedDATE:05/01/22 TIME: 08 PATIENT: BRIGHT SALAZAR UNIT #: [id number]#: [id number] [facility] [place] [birth year] AGE: 56 SEX: M ATTEND: Yuli Pink AUTHOR: Ana Riggs MD * ALL edits or amendments must be made on the electronic/computer document * Subjective Free Text Subj NotesFree Text Subj Notes:No acute events overnight. Going back to the OR tomorrow. Eating well. Objective GeneralVS/I O:Vital Signs: Date Time Temp Pulse Resp B/P B/P Pulse O2 O2 Flow FiO2 Mean Ox Delivery Rate 05/01 0731 98.4 74 16 157/79 105.0 94 05/01 0428 98.4 81 14 159/77 104.4 95 Room air 05/01 0341 98 Room air 05/01 0212 98.6 88 14 190/81 117.8 96 Room air 04/30 2036 98.2 80 12 145/74 97.4 98 Room air 04/30 1522 97.9 72 14 114/66 81.8 97 Room air 04/30 1147 98.2 82 14 114/64 81.0 99 Room air 24 hour I O ending at 0700: 05/01 0700 04/30 1900 Intake Total 250.00 250.00 Output Total 900 350 Balance -650.00 -100.00 Intake, IV 250.00 250.00 Output, 50 Drainage Output, Urine 900 300 PATIENT WEIGHT: Weight (lb): 200Weight (oz): Weight (kg): 90.718 Medications:Active Meds + DC'd Last 24 HrsLoperamide HCl (IMODIUM) 2 MG Q6H PRN PRN PO Insulin Human NPH (HumuLIN N) 20 UNIT BID AC SUBQ Dextrose/Water (DEXTROSE 50%-WATER) 25 ML ASDIR PRN IV (CKD) Glucagon (GLUCAGON) 1 MG ASDIR PRN IM Glucose Polymer (GLUTOSE) 15 GM ASDIR PRN PO Insulin Human Lispro (HUMALOG) See Admin Criteria ASDIR PRN SUBQ Hydrocodone Bitart/Acetaminophen (NORCO 10/325 TABLET) 2 TAB Q6H PRN PRN PO Methocarbamol (ROBAXIN) 500 MG Q6HR IV (DC) Gabapentin (NEURONTIN) 300 MG TID PO (DC) Tramadol HCl (ULTRAM) 50 MG Q6HR PO Morphine Sulfate (morphine PF SYRINGE) 2 MG Q4H PRN PRN IV Aspirin (ASPIRIN) 81 MG BID PO (DA) Metoprolol Tartrate (LOPRESSOR) 50 MG BID PO Pravastatin Sodium (PRAVASTATIN SODIUM) 20 MG BEDTIME PO Vancomycin HCl (Vancomycin HCl) 1.25 GM Q12HR IV Sodium Chloride (NORMAL SALINE 250 ML) 250 MLZolpidem Tartrate (AMBIEN) 10 MG BEDTIME PO Meropenem (MERREM) 500 MG Q6HR IV Sterile Water (STERILE WATER) 10 MLClopidogrel Bisulfate (PLAVIX) 75 MG DAILY PO (DA) Pantoprazole (PROTONIX) 40 MG DAILY PO Magnesium Sulfate (MAGNESIUM SULFATE 2GM/50ML BAG) 50 ML Q1H PRN PRN IV Magnesium Sulfate/Dextrose (MAGNESIUM SULFATE 1GM/D5W 100ML) 100 ML ASDIR PRN IV Potassium Chloride (K-DUR) 20 MEQ ASDIR PRN PO Potassium Chloride (K-DUR) 40 MEQ ASDIR PRN PO Potassium Chloride (K-DUR) 40 MEQ ASDIR PRN PO Potassium Chloride (KCL 10 MEQ/100ML) 100 ML Q1H PRN PRN IV Potassium Chloride (KCL 10 MEQ/100ML) 100 ML Q1H PRN PRN IV Potassium Chloride (KCL 10 MEQ/100ML) 100 ML Q1H PRN PRN IV Potassium Chloride (KCL 20 MEQ/100 ML) 100 ML Q1H PRN PRN IV Potassium Chloride (KCL 20 MEQ/100 ML) 100 ML Q1H PRN PRN IV Potassium Chloride (KCL 20 MEQ/100 ML) 100 ML Q1H PRN PRN IV Potassium Phos/Sodium Phos (PHOS-NAK PACKET) 1 PKT ASDIR PRN PO (CKD) Potassium Phosphate (Potassium Phosphate) 15 MMOL ASDIR PRN IV Sodium Chloride (NORMAL SALINE 250 ML) 250 MLPotassium Phosphate (Potassium Phosphate) 30 MMOL ASDIR PRN IV Sodium Chloride (SODIUM CHLORIDE 0.9% 500 ML) 500 MLAcetaminophen (TYLENOL) 650 MG Q4H PRN PRN PO Acetaminophen (TYLENOL) 650 MG Q6H PRN PRN RECTAL Al Hydrox/Mg Hydrox/Simethicone (MAALOX PLUS) 30 ML Q4H PRN PRN PO Calcium Carbonate (TUMS) 1,000 MG DAILY PRN PRN PO Clonidine HCl (CATAPRES) 0.1 MG Q6H PRN PRN PO Enoxaparin Sodium (LOVENOX) 40 MG Q24H SUBQ Guaifenesin/Dextromethorphan (ROBITUSSIN-DM) 10 ML QID PRN PRN PO Hydrocodone Bitart/Acetaminophen (NORCO 5/325 TABLET) 1 TAB Q4H PRN PRN PO Hydrocodone Bitart/Acetaminophen (NORCO 10/325 TABLET) 1 TAB Q4H PRN PRN PO Miscellaneous Information (VANCOMYCIN PHARMACY TO DOSE) 1 EACH ASDIR IV (CKD) Ondansetron HCl (ZOFRAN) 4 MG Q4H PRN PRN IV Senna (SENOKOT) 1 TAB DAILY PRN PRN PO (CKD) Simethicone (MYLICON) 160 MG Q6H PRN PRN PO Trazodone HCl (DESYREL) 50 MG BEDTIME PRN PRN PO ResultsFindings/Data:Laboratory Tests 05/01 05/01 04/30 04/30 0425 0419 2036 1521Chemistry Sodium (133 - 144 mmol/L) 134.0 Potassium (3.5 - 5.1 mmol/L) 3.4 L Chloride (95 - 105 mmol/L) 102 Carbon Dioxide (21 - 32 mmol/L) 27 Anion Gap (4.0 - 15.0 GAP calc) 5.0 BUN (7 - 18 MG/DL) 10 Creatinine (0.55 - 1.30 MG/DL) 0.50 L Glomerular Filtr Rate (>60 estGFR) 120 Glucose (70 - 110 MG/DL) 156 H POC Glucose (70 - 119 MG/DL) 146 H 147 H 102 Calcium (8.5 - 10.1 MG/DL) 8.2 L Specimen Appearance (1 NORMAL Index/DL) 1 NORMAL <2 MG Specimen Hemolysis (1 NORMAL Index/DL) 1 NORMAL <10 MG 04/30 1146 Chemistry POC Glucose (70 - 119 MG/DL) 133 H Free Text Obj NotesFree Text Obj Notes:GENERAL APPEARANCE: He is awake, alert, oriented, not in acute distress, lyingcomfortably in the bed.HEENT: Atraumatic, normocephalic. Oral mucosa moist.NECK: Supple, no JVD.CARDIOVASCULAR: S1, S2 present, regular.LUNGS: Clear to auscultation.ABDOMEN: Soft, nontender, nondistended.SKIN: No rashes.NEUROLOGIC: No focal deficits.EXTREMITIES: LLE dressing in place Diagnosis, Assessment Plan Free Text DxA P NotesFree text DxA P notes: This is a 56-year-old male with:1. Diabetic foot infection. The patient had multiple procedures and alsofinished 6 weeks of IV antibiotics prior to hospitalization. Follow culture results. Continue antibiotics as per ID. Orthopedics is consulted and patient is s/p BKA, wound not closed at this time. Continue postop care as per orthopedics recommendations.Discussed with orthopedics and recommends to hold aspirin and Plavix for couple days. Aspirin and Plavix to be hold as per orthopedics recommendation and to be resumed once cleared by orthopedics. Going back to Or tomorrow2. Diabetes is uncontrolled. Hemoglobin A1c is 10.1. Blood sugars better today. Continue NPH and sliding scale of insulin and monitor blood sugars.3. History of coronary artery disease status post coronary artery bypass graftx4 in 2016. Continue aspirin, Plavix, statin and beta marcell. No acute issuesat this time.Aspirin and Plavix to be held until cleared by orthopedics.4. History of peripheral vascular disease. Continue secondary prevention.5. Deep venous thrombosis prophylaxis with Lovenox.6. Hyponatremia. This is most likely pseudohyponatremia from elevated bloodsugars. Resolved. at 0914 RPT #:[id number] OF REPORTPRProgress hzzs8921-20-19E40:05:00B.[id number] Available for patient nsexWKIQCMIKRSCLAM1715-61-30L83:15:[address] [facility] 2022-04-30 14:40:00 [id number] iRT7 Uplit8U7lugrcR0uDEoRy2wTNr0lxg4h4727-35-27V7 4:40:00 [facility] ([facility]Orthopaedic Progress NoteREPORT#:[id number] REPORT STATUS: SignedDATE:04/30/22 TIME: 1440 PATIENT: BRIGHT SALAZAR UNIT #: [id number]#: [id number] [facility] [place] [birth year] AGE: 56 SEX: M ATTEND: Yuli Pink [facility] AUTHOR: Dhiraj Herman MD * ALL edits or amendments must be made on the electronic/computer document * SubjectiveChief complaint:left foot gangrene Objective Physical ExamCardiovascular: regular rate rhythmRespiratory: no distressAbdomen: no guardingGenitourinary: no urinary catheterSkin: dry, intact Free Text Obj NotesFree Text Obj Notes:Left lower extremity:Dressings clean dry and intact on the left stump. Wound VAC remains in place, moderate amount of output overnight, serosanguineous in nature. Patient able toflex and extend stump at knee without difficulty. Diagnosis, Assessment PlanFree text A P:56-year-old maleDOI: July 2020Mechanism: Frostbite and subsequent diabetic foot ulcerInjury: Left foot gangrene Procedure date: 2Procedure:Left below-knee amputationWound VAC applicationSurgeon: Jasiel Lundberg MD Patient doing well, will plan to proceed with a second stage below knee amputation wound closure tomorrow. Risks and hopeful benefits of that were reviewed with him and he wishes to proceed. NPO after MN Postoperative plan:Wound: Wound VAC. Please notify if there is any significant drainage from the wound VAC for short period of timeActivity: Nonweightbearing left lower extremityIM: Appreciate trauma service management of this severely injured patient. To facilitate fracture healing, recommend patient take 1200 mg calcium,5000 IU vitamin D3, 500 mg vitamin C daily, either as a multivitamin or individual supplements.ID: Continue IV antibioticsDVT: SCDs when in bed. DVT chemoprophylaxis to begin postop day 1. Recommend Lovenox. We will hold 12 hours before second surgeryDecub: Standard precautions. Inspect occiput, sacrum, heels daily. Encourage frequent turning, position changes.Dispo: Return to the OR tomorrow for repeat irrigation and debridement and amputation closure.F/U: Pending. Orthopedic Trauma [address] [place] [address] [address], [place], [place] [phone] RPT #:[id number] OF REPORT at 1442 RPT #:[id number] OF REPORTPRProgress [id number]:40:00B.[id number] Available for patient kdcaKNTPOFSWLQESCD7375-46-75U74:42:[address] [facility] 2022-04-30 08:15:00 [id number] PYZv QfRLulVfd6Xyzma9bEab59urSCJ4u+P40230-05-87E9 8:15:367207-[address] [place], [place] [address] PATIENT NAME: BRIGHT SALAZAR ADMIT DATE: 04/26/22ACCOUNT NO: [id number] ROOM NO: [facility] AGE: 56 REPORT TYPE: PROGRESS NOTE SEX: M ADMITTING PHYSICIAN:Yung Loomis MD ATTENDING PHYSICIAN:Yuli Pink MD DATE: 04/30/2022 INFECTIOUS DISEASE PROGRESS NOTE TIME: 0814 hours. SUBJECTIVE: The patient is somewhat confused and he knows that he is confused. I discussed with the patient about using his incentive spirometer to keep his lungs open and sitting up in bed. He is trying to eat some breakfast, but he is somewhat confused. OBJECTIVE:VITAL SIGNS: Noted.GENERAL: He is afebrile, lying quietly in bed and nontoxic. The patient doesnot complete sentences. He admits he is confused.HEART: Regular rate. S1, S2 present.LUNGS: Decreased breath sounds at the bases.ABDOMEN: Soft and quiet.EXTREMITIES: BKA site is dressed. Dressing is not removed. LABORATORY DATA: Today, his white count is 7600, very stable, hemoglobin is11.4, and platelet counts 236,000. Metabolic profile today shows a BUN of 16,creatinine 0.59. Culture of his left foot from 04/26/2022 has Enterococcus without sensitivitypattern, also gram-negative felipa with no identification as well as Proteusvulgaris has moderate resistance. His antimicrobial therapies are IV meropenem and IV vancomycin. ASSESSMENT:1. A 56-year-old male.2. Polymicrobial left foot infection.3. Status post left BKA with revision, to go back for further surgery.4. Confusion, most likely related to pain medication and/or anesthesia.5. History of tobacco abuse.6. Peripheral vascular disease. RECOMMENDATIONS: At the present time, the patient is stable for this. At thispoint, I will continue the IV meropenem and IV vancomycin and monitor his renal function. I recommend to continue his antimicrobial therapies while his cultures are still pending and also while he is still having further surgery. PATIENT NAME: BRIGHT SALAZAR All of his questions wereanswered. Dictated By: Jacquie De La Garza MD Date Dictated: 04/30/2022 08:15:54Date Transcribed: 04/30/2022 08:41:03KEON/TIMUR/Keisha #: [id number] ID: [id number] and Edited by Jacquie De La Garza MD On 04/30/22 10:07:49 AM at 1009 PATIENT NAME: BRIGHT SALAZAR [id number]:41:00B.[id number] vailable for patient safwSQQMUCLMHZSIUP4700-38-02V10:10:[address] [facility] 2022-04-29 14:37:00 [id number] Afl8 oKNJ5eJ0NTkmh3241mIh8nV0ZpjbAvMQ7034-40-93W2 4:37:00 [facility] ([facility])Hospitalist Progress NoteREPORT#:[id number] REPORT STATUS: SignedDATE:04/29/22 TIME: 1436 PATIENT: BRIGHT SALAZAR UNIT #: [id number]#: [id number] ROOM[facility]BED: [facility]-WDOB: [birth year] AGE: 56 SEX: M ATTEND: Yuli Pink AUTHOR: Yuli Pink MD * ALL edits or amendments must be made on the electronic/computer document * SubjectivePatient reports:Yes: pain, pain controlled, resting comfortably. No: abdominal pain, chest pain, chills, constipation, cough, diarrhea, dizziness, fever, headache, nausea, shortness of breath, vomiting. Nursing reports:No: complaints. Comments:Seen and examined this morningBack from the ORDenies any new complaints Objective GeneralVS/I O:Vital Signs: Date Time Temp Pulse Resp B/P B/P Pulse O2 O2 Flow FiO2 Mean Ox Delivery Rate 04/29 1039 36.4 85 15 127/70 88.9 98 Room air 04/29 0950 85 17 123/57 93 Room air 04/29 0942 87 18 141/67 96 Room air 04/29 0929 86 18 136/68 96 Room air 04/29 0924 87 18 141/70 100 Simple 8 mask 04/29 0919 36.4 89 18 143/68 100 Simple 8 mask 04/29 0411 36.7 84 14 143/73 96.3 97 Room air 04/28 2341 36.7 89 14 123/58 79.3 97 04/28 1935 36.5 87 14 134/72 92.6 100 Room air 04/28 1542 36.6 84 15 127/74 91.9 98 Room air 24 hour I O ending at 0700: 04/29 0700 04/28 1900 Intake Total Output Total 600 Balance -600 Output, Urine 600 Patient 90.718 kg Weight PATIENT WEIGHT: Weight (lb): 200Weight (oz): Weight (kg): 90.718 Medications:Active Meds + DC'd Last 24 HrsAlbuterol Sulfate (PROVENTIL NEB) 2.5 MG PACU ONCE PRN PRN NEB (DC) Dexamethasone Sodium Phosphate (DECADRON 4MG/ML) 4 MG PACU ONCE IV (DC) Fentanyl Citrate (SUBLIMAZE) 25 MCG PACU Q5MIN PRN PRN IV (DC) Hydromorphone HCl (DILAUDID) 0.5 MG PACU Q5MIN PRN PRN IV (DC) Ketorolac Tromethamine (TORADOL) 15 MG PACU ONCE IV (DC) Lactated Ringer's (LACTATED RINGERS) 1,000 ML PACU IV (DC) Metoprolol Tartrate (LOPRESSOR) 2 MG PACU Q5MIN PRN PRN IV (DC) Morphine Sulfate (morphine PF SYRINGE) 2 MG PACU Q5MIN PRN PRN IV (DC) Naloxone HCl (NARCAN) 0.1 MG PACU ONCE PRN PRN IV (DC) Ondansetron HCl (ZOFRAN) 4 MG PACU ONCE PRN PRN IV (DC) Hydromorphone HCl (DILAUDID) 0 .STK-MED ONE .ROUTE (DC) Ondansetron HCl (ZOFRAN) 0 .STK-MED ONE .ROUTE (DC) Tranexamic Acid (CYKLOKAPRON) 0 .STK-MED ONE .ROUTE (DC) Lidocaine HCl (XYLOCAINE 1% 5ML) 5 ML .STK-MED ONE IV (DC) Succinylcholine Chloride (QUELICIN, ANECTINE) 0 .STK-MED ONE .ROUTE (DC) Phenylephrine HCl (CHARLENE-SYNEPHRINE) 0 .STK-MED ONE .ROUTE (DC) Sodium Chloride (SODIUM CHLORIDE 0.9% 50 ML) 50 ML .STK-MED ONE IV (DC) Cefazolin Sodium (ANCEF 1 GM) 0 .STK-MED ONE IV (DC) Bupivacaine HCl (SENSORCAINE 0.25% PF) 0 .STK-MED ONE .ROUTE (DC) Fentanyl Citrate (SUBLIMAZE) 0 .STK-MED ONE .ROUTE (DC) Midazolam HCl (VERSED) 0 .STK-MED ONE .ROUTE (DC) Propofol (DIPRIVAN) 20 ML .STK-MED ONE IV (DC) Insulin Human NPH (HumuLIN N) 20 UNIT BID AC SUBQ Dextrose/Water (DEXTROSE 50%-WATER) 25 ML ASDIR PRN IV (CKD) Glucagon (GLUCAGON) 1 MG ASDIR PRN IM Glucose Polymer (GLUTOSE) 15 GM ASDIR PRN PO Insulin Human Lispro (HUMALOG) See Admin Criteria ASDIR PRN SUBQ Hydrocodone Bitart/Acetaminophen (NORCO 10/325 TABLET) 2 TAB Q6H PRN PRN PO Methocarbamol (ROBAXIN) 500 MG Q6HR IV Gabapentin (NEURONTIN) 300 MG TID PO Tramadol HCl (ULTRAM) 50 MG Q6HR PO Morphine Sulfate (morphine PF SYRINGE) 2 MG Q4H PRN PRN IV Aspirin (ASPIRIN) 81 MG BID PO (DA) Metoprolol Tartrate (LOPRESSOR) 50 MG BID PO Pravastatin Sodium (PRAVASTATIN SODIUM) 20 MG BEDTIME PO Vancomycin HCl (Vancomycin HCl) 1.25 GM Q12HR IV Sodium Chloride (NORMAL SALINE 250 ML) 250 MLZolpidem Tartrate (AMBIEN) 10 MG BEDTIME PO Meropenem (MERREM) 500 MG Q6HR IV Sterile Water (STERILE WATER) 10 MLClopidogrel Bisulfate (PLAVIX) 75 MG DAILY PO (DA) Pantoprazole (PROTONIX) 40 MG DAILY PO Magnesium Sulfate (MAGNESIUM SULFATE 2GM/50ML BAG) 50 ML Q1H PRN PRN IV Magnesium Sulfate/Dextrose (MAGNESIUM SULFATE 1GM/D5W 100ML) 100 ML ASDIR PRN IV Potassium Chloride (K-DUR) 20 MEQ ASDIR PRN PO Potassium Chloride (K-DUR) 40 MEQ ASDIR PRN PO Potassium Chloride (K-DUR) 40 MEQ ASDIR PRN PO Potassium Chloride (KCL 10 MEQ/100ML) 100 ML Q1H PRN PRN IV Potassium Chloride (KCL 10 MEQ/100ML) 100 ML Q1H PRN PRN IV Potassium Chloride (KCL 10 MEQ/100ML) 100 ML Q1H PRN PRN IV Potassium Chloride (KCL 20 MEQ/100 ML) 100 ML Q1H PRN PRN IV Potassium Chloride (KCL 20 MEQ/100 ML) 100 ML Q1H PRN PRN IV Potassium Chloride (KCL 20 MEQ/100 ML) 100 ML Q1H PRN PRN IV Potassium Phos/Sodium Phos (PHOS-NAK PACKET) 1 PKT ASDIR PRN PO (CKD) Potassium Phosphate (Potassium Phosphate) 15 MMOL ASDIR PRN IV Sodium Chloride (NORMAL SALINE 250 ML) 250 MLPotassium Phosphate (Potassium Phosphate) 30 MMOL ASDIR PRN IV Sodium Chloride (SODIUM CHLORIDE 0.9% 500 ML) 500 MLAcetaminophen (TYLENOL) 650 MG Q4H PRN PRN PO Acetaminophen (TYLENOL) 650 MG Q6H PRN PRN RECTAL Al Hydrox/Mg Hydrox/Simethicone (MAALOX PLUS) 30 ML Q4H PRN PRN PO Calcium Carbonate (TUMS) 1,000 MG DAILY PRN PRN PO Clonidine HCl (CATAPRES) 0.1 MG Q6H PRN PRN PO Enoxaparin Sodium (LOVENOX) 40 MG Q24H SUBQ Guaifenesin/Dextromethorphan (ROBITUSSIN-DM) 10 ML QID PRN PRN PO Hydrocodone Bitart/Acetaminophen (NORCO 5/325 TABLET) 1 TAB Q4H PRN PRN PO Hydrocodone Bitart/Acetaminophen (NORCO 10/325 TABLET) 1 TAB Q4H PRN PRN PO Miscellaneous Information (VANCOMYCIN PHARMACY TO DOSE) 1 EACH ASDIR IV (CKD) Ondansetron HCl (ZOFRAN) 4 MG Q4H PRN PRN IV Senna (SENOKOT) 1 TAB DAILY PRN PRN PO (CKD) Simethicone (MYLICON) 160 MG Q6H PRN PRN PO Trazodone HCl (DESYREL) 50 MG BEDTIME PRN PRN PO ResultsFindings/Data:Laboratory Tests 04/29 04/29 04/29 04/29 1038 0926 0447 0408Chemistry Sodium (133 - 144 mmol/L) 136.0 Potassium (3.5 - 5.1 mmol/L) 3.9 Chloride (95 - 105 mmol/L) 107 H Carbon Dioxide (21 - 32 mmol/L) 24 Anion Gap (4.0 - 15.0 GAP calc) 5.0 BUN (7 - 18 MG/DL) 16 Creatinine (0.55 - 1.30 MG/DL) 0.61 Glomerular Filtr Rate (>60 estGFR) 113 Glucose (70 - 110 MG/DL) 219 H POC Glucose (70 - 119 MG/DL) 186 H 176 H 183 H Calcium (8.5 - 10.1 MG/DL) 8.0 L Specimen Appearance (1 NORMAL Index/DL) 1 NORMAL <2 MG Specimen Hemolysis (1 NORMAL Index/DL) 1 NORMAL <10 MG 04/28 04/28 1933 1540 Chemistry POC Glucose (70 - 119 MG/DL) 161 H 244 H Results: labs reviewed, vital signs reviewed, vital signs stable, current med profile rev'd Free Text Obj NotesFree Text Obj Notes:GENERAL APPEARANCE: He is awake, alert, oriented, not in acute distress, lyingcomfortably in the bed.HEENT: Atraumatic, normocephalic. Oral mucosa moist.NECK: Supple, no JVD.CARDIOVASCULAR: S1, S2 present, regular.LUNGS: Clear to auscultation.ABDOMEN: Soft, nontender, nondistended.SKIN: No rashes.NEUROLOGIC: No focal deficits.EXTREMITIES: LLE dressing in place Diagnosis, Assessment Plan Free Text DxA P NotesFree text DxA P notes: This is a 56-year-old male with:1. Diabetic foot infection. The patient had multiple procedures and alsofinished 6 weeks of IV antibiotics prior to hospitalization. Follow culture results. Continue antibiotics as per ID. Orthopedics is consulted and patient is s/p BKA, wound not closed at this time. Continue postop care as per orthopedics recommendations.Discussed with orthopedics and recommends to hold aspirin and Plavix for couple days. Aspirin and Plavix to be hold as per orthopedics recommendation and to be resumed once cleared by orthopedics.2. Diabetes is uncontrolled. Hemoglobin A1c is 10.1. Blood sugars elevated. Blood sugars better today. Continue NPH and sliding scale of insulin and monitor blood sugars.3. History of coronary artery disease status post coronary artery bypass graftx4 in 2016. Continue aspirin, Plavix, statin and beta marcell. No acute issuesat this time.Aspirin and Plavix to be held until cleared by orthopedics.4. History of peripheral vascular disease. Continue secondary prevention.5. Deep venous thrombosis prophylaxis with Lovenox.6. Hyponatremia. This is most likely pseudohyponatremia from elevated bloodsugars. Resolved.Plan discussed with the patient. All of his questions answered to his understanding.Discussed with nursing and orthopedics at 1441 [facility] #:[id number] OF REPORTPRProgress kevo2914-22-39V70:37:00B.[id number] Available for patient gzagTLTCJUWCVBSNDU7627-64-79M56:41:50 [facility] 10:27:00 [id number]/R/Felicitas uaR3 b7PBPHS4DtwdWYTpWIDOis+hS6gkj7Hu4564-34-36A5 0:27:799586-4358 [place] [address] PATIENT NAME: BRIGHT SALAZAR ADMIT DATE: 04/26/22ACCOUNT NO: [id number] ROOM NO: [facility] AGE: 56 REPORT TYPE: PROGRESS NOTE SEX: M ADMITTING PHYSICIAN:Yung Loomis MD ATTENDING PHYSICIAN:Yuli Pink MD DATE: 04/29/2022 INFECTIOUS DISEASE PROGRESS NOTE TIME SEEN: 1025 hours. SUBJECTIVE: The patient went to the OR this morning and it appears that hisleft BKA was not completed. The patient had generalized oozing from theentirety of the wound bed, which measured 25 x 12 cm si it was debrided. The patient has a wound VAC on the wound and he was returned back to his room. The patient is somnolent as he was seen postoperative. He is complaining of pain of his left leg. OBJECTIVE:VITAL SIGNS: Noted. He is afebrile, lying quietly in bed, sleepy, but easilyawakened.HEART: Regular rate, S1 and S2.LUNGS: Have poor breath sounds.ABDOMEN: Soft and quiet.EXTREMITIES: Left leg is dressed with wound VAC in place and is elevated. LABORATORY STUDIES: The patient's culture of his left foot from 04/26/2022 hasProteus vulgaris. His white count 2 days ago was 7400. His metabolic profiletoday shows a BUN of 16, creatinine 0.61. His antimicrobial therapy is IV meropenem and IV vancomycin. ASSESSMENT:1. A 56-year-old male.2. Status post second debridement of left lower extremity, wound still withinfection.3. Left foot infection with Proteus vulgaris. RECOMMENDATIONS: At the present time, the patient is medically stable. At thispoint, I will stop the vancomycin, but I will continue the IV meropenem. I willcontinue to monitor him and make recommendations as needed. Dictated By: Jacquie De La Garza MD Date Dictated: 04/29/2022 10:27:40Date Transcribed: 04/29/2022 10:46:13 PATIENT NAME: BRIGHT SALAZAR /[facility]Jo #: [id number] ID: [id number] and Edited by Jacquie De La Garza MD On 04/29/22 12:56:20 PM at 1257 PATIENT NAME: BRIGHT SALAZAR dzhj0988-06-03Y67:46:00B.[id number] vailable for patient cccdEOQXUGEFWSLACE7647-01-81C04:58:[address] [facility] 2022-04-29 09:12:00 [id number]+iEAQhx1SOQqMZhoe9T1dry XXT9 I9j9Dggb/AxsDQ3MZq/jECx4ETL1QqjP4333-21-38M6 9:12:00 [facility] ([facility])DT Operative NoteREPORT#:[id number] REPORT STATUS: SignedDATE:04/29/22 TIME: 911 PATIENT: BRIGHT SALAZAR UNIT #: [id number]#: [id number] [facility] [place] [birth year] AGE: 56 SEX: M ATTEND: Yuli Pink AUTHOR: Jasiel Lundberg MD * ALL edits or amendments must be made on the electronic/computer document * Operative Report Operative NoteNote:Operative Note Date: 2Preprocedure diagnosis:Left foot wet gangrene status post left open below-knee amputationPostprocedure diagnosis: Same Procedure:Left leg wound irrigation and debridement down to and including muscle- 24 x12 cmWound VAC placement Surgeon: Jasiel Lundberg MD Nursing Home Assistant Administrator: Kush Shepard PA-C A surgical instrument technician was necessary throughout the procedure for the following aspects of the procedure: patient positioning, retraction of soft tissues for adequate exposure, intraoperative manipulation and positioning of the operative extremity, assistance with implant placement and wound closure. This assistancewas instrumental in significantly facilitating the procedure, decreasing operative time, reducing surgical risk, and improving operative efficiency. Anesthesia: GeneralFindings: Generalized oozing bleeding with 1 small peroneal yard supervisor bleed, large hematoma, small amount of devascularized tissueComplications: NoneBlood loss: 100 ccSpecimens: NoneDrains: Wound VACTubes: NoneImplants: SurgicelFluids: Per anesthesiaUrine output: Per anesthesiaApproach: Through previous below-knee amputation woundDisposition: Stable to PACU HPI: Patient is a 56-year-old male with a past medical history of coronary artery disease, peripheral artery disease, diabetes that had undergone a transmetatarsal amputation several months ago. This transmetatarsal amputation was not healing and had black eschar with wet gangrene over the foot. I discussed below-knee amputation with the patient as a method of definitively treating his infection and get him back to ambulating with a prosthesis. Patient wanted to proceed with below-knee amputation. I discussed that we wouldperform the procedure in 2 stages. The first stage of the procedure was performed approximately 2 days ago. Patient returned to the OR today for secondstage of the procedure. I discussed with him that I would evaluate the quality of the soft tissues and the overall wound to determine whether the wound could be closed today or whether this could be irrigated and debrided and closed laterthis admission. Patient voiced understandingRisks of the proposed surgical intervention were discussed, including pain, bleeding, infection, neurovascular damage, phantom pain, failure to relieve symptoms, need for subsequent procedures, DVT, PE, stroke, heart attack, , and complications from anesthesia. Questions were invited and answered. No guarantees of outcome were made or implied. The patient verbalized understandingbefore voluntarily signing the consent. Procedure:On date of operation after verification of patient identity, appropriate surgical site, and informed consent, as well as administration of preoperativeantibiotics, the patient was taken to the operating room and placed supine on the OR table with all pressure points padded. General anesthesia was induced. The operative extremity was scrubbed with chlorhexidine scrub sponges. The limbwas then prepped and draped in usual sterile fashion.After multidisciplinary timeout, the previous PDS sutures were removed. There was significant generalized oozing from the entirety of the wound bed which measured 24 x 12 cm. The wound was debrided with a scalpel and electrocautery. The anterior compartment was resected through the muscle approximately 2 cm withelectrocautery. A peroneal feeding vessel was noted and was cauterized. The wound was copiously irrigated with 6 L of normal saline. Even with cauterization there appeared to be significant oozing of the wound bed. The decision was made to place Surgicel in the wound and wound VAC the wound and return at a later date for definitive closure to prevent large hematoma formation and continued bleeding that could compromise the stump. PDS was used to reapproximate the fascia and a wound VAC was placed. Sterile dressings were applied. The patient was woken from anesthesia and was taken to recovery in stable condition. Postoperative plan:Wound: Return to the OR in 48 hours for repeat debridement and potential wound closureActivity: Nonweightbearing left lower extremityIM: Appreciate trauma service management of this severely injured patient. To facilitate fracture healing, recommend patient take 1200 mg calcium,5000 IU vitamin D3, 500 mg vitamin C daily, either as a multivitamin or individual supplements.ID: Continue antibioticsDVT: SCDs when in bed. DVT chemoprophylaxis to begin postop day 1, if possible, recommend stopping aspirin and Plavix for 1 to 2 days to decrease bleeding to decrease risk of hematoma and wound and subsequent wound dehiscence.Decub: Standard precautions. Inspect occiput, sacrum, heels daily. Encourage frequent turning, position changes.Dispo: Pending wound closureF/U: Pending. to arrange follow-up at [place] at 0634 RPT #:[id number] OF REPORTOPOperative [id number]:12:00B.[id number] AVAvailable for patient [id number]:34:38 [facility] 2022-04-28 12:08:00 [id number]/tZXEdygUK wJ7e [id number]/Otk7MpK2i/[id number] 2:08:00 [facility] CenterHospitalist Progress NoteREPORT#:[id number] REPORT STATUS: SignedDATE:04/28/22 TIME: 1208 PATIENT: BRIGHT SALAZAR UNIT #: [id number]#: [id number] [facility] [place] [birth year] AGE: 56 SEX: M ATTEND: Yuli Pink [facility] AUTHOR: Yuli Pink MD * ALL edits or amendments must be made on the electronic/computer document * SubjectivePatient reports:Yes: feeling better, pain, resting comfortably. No: abdominal pain, chest pain,chills, constipation, cough, diarrhea, dizziness, fever, headache, nausea, shortness of breath, vomiting. Nursing reports:No: complaints. Comments:No overnight eventsPatient reports pain is not under controlNo other complaint Objective GeneralVS/I O:Vital Signs: Date Time Temp Pulse Resp B/P B/P Pulse O2 O2 Flow FiO2 Mean Ox Delivery Rate 04/29 1039 36.4 85 15 127/70 88.9 98 Room air 04/29 0950 85 17 123/57 93 Room air 04/29 0942 87 18 141/67 96 Room air 04/29 0929 86 18 136/68 96 Room air 04/29 0924 87 18 141/70 100 Simple 8 mask 04/29 0919 36.4 89 18 143/68 100 Simple 8 mask 04/29 0411 36.7 84 14 143/73 96.3 97 Room air 04/28 2341 36.7 89 14 123/58 79.3 97 04/28 1935 36.5 87 14 134/72 92.6 100 Room air 04/28 1542 36.6 84 15 127/74 91.9 98 Room air 24 hour I O ending at 0700: 04/29 0700 04/28 1900 Intake Total Output Total 600 Balance -600 Output, Urine 600 Patient 90.718 kg Weight PATIENT WEIGHT: Weight (lb): 200Weight (oz): Weight (kg): 90.718 Medications:Active Meds + DC'd Last 24 HrsAlbuterol Sulfate (PROVENTIL NEB) 2.5 MG PACU ONCE PRN PRN NEB (DC) Dexamethasone Sodium Phosphate (DECADRON 4MG/ML) 4 MG PACU ONCE IV (DC) Fentanyl Citrate (SUBLIMAZE) 25 MCG PACU Q5MIN PRN PRN IV (DC) Hydromorphone HCl (DILAUDID) 0.5 MG PACU Q5MIN PRN PRN IV (DC) Ketorolac Tromethamine (TORADOL) 15 MG PACU ONCE IV (DC) Lactated Ringer's (LACTATED RINGERS) 1,000 ML PACU IV (DC) Metoprolol Tartrate (LOPRESSOR) 2 MG PACU Q5MIN PRN PRN IV (DC) Morphine Sulfate (morphine PF SYRINGE) 2 MG PACU Q5MIN PRN PRN IV (DC) Naloxone HCl (NARCAN) 0.1 MG PACU ONCE PRN PRN IV (DC) Ondansetron HCl (ZOFRAN) 4 MG PACU ONCE PRN PRN IV (DC) Hydromorphone HCl (DILAUDID) 0 .STK-MED ONE .ROUTE (DC) Ondansetron HCl (ZOFRAN) 0 .STK-MED ONE .ROUTE (DC) Tranexamic Acid (CYKLOKAPRON) 0 .STK-MED ONE .ROUTE (DC) Lidocaine HCl (XYLOCAINE 1% 5ML) 5 ML .STK-MED ONE IV (DC) Succinylcholine Chloride (QUELICIN, ANECTINE) 0 .STK-MED ONE .ROUTE (DC) Phenylephrine HCl (CHARLENE-SYNEPHRINE) 0 .STK-MED ONE .ROUTE (DC) Sodium Chloride (SODIUM CHLORIDE 0.9% 50 ML) 50 ML .STK-MED ONE IV (DC) Cefazolin Sodium (ANCEF 1 GM) 0 .STK-MED ONE IV (DC) Bupivacaine HCl (SENSORCAINE 0.25% PF) 0 .STK-MED ONE .ROUTE (DC) Fentanyl Citrate (SUBLIMAZE) 0 .STK-MED ONE .ROUTE (DC) Midazolam HCl (VERSED) 0 .STK-MED ONE .ROUTE (DC) Propofol (DIPRIVAN) 20 ML .STK-MED ONE IV (DC) Insulin Human NPH (HumuLIN N) 20 UNIT BID AC SUBQ Dextrose/Water (DEXTROSE 50%-WATER) 25 ML ASDIR PRN IV (CKD) Glucagon (GLUCAGON) 1 MG ASDIR PRN IM Glucose Polymer (GLUTOSE) 15 GM ASDIR PRN PO Insulin Human Lispro (HUMALOG) See Admin Criteria ASDIR PRN SUBQ Hydrocodone Bitart/Acetaminophen (NORCO 10/325 TABLET) 2 TAB Q6H PRN PRN PO Methocarbamol (ROBAXIN) 500 MG Q6HR IV Gabapentin (NEURONTIN) 300 MG TID PO Tramadol HCl (ULTRAM) 50 MG Q6HR PO Morphine Sulfate (morphine PF SYRINGE) 2 MG Q4H PRN PRN IV Aspirin (ASPIRIN) 81 MG BID PO (DA) Metoprolol Tartrate (LOPRESSOR) 50 MG BID PO Pravastatin Sodium (PRAVASTATIN SODIUM) 20 MG BEDTIME PO Vancomycin HCl (Vancomycin HCl) 1.25 GM Q12HR IV Sodium Chloride (NORMAL SALINE 250 ML) 250 MLZolpidem Tartrate (AMBIEN) 10 MG BEDTIME PO Meropenem (MERREM) 500 MG Q6HR IV Sterile Water (STERILE WATER) 10 MLClopidogrel Bisulfate (PLAVIX) 75 MG DAILY PO (DA) Pantoprazole (PROTONIX) 40 MG DAILY PO Magnesium Sulfate (MAGNESIUM SULFATE 2GM/50ML BAG) 50 ML Q1H PRN PRN IV Magnesium Sulfate/Dextrose (MAGNESIUM SULFATE 1GM/D5W 100ML) 100 ML ASDIR PRN IV Potassium Chloride (K-DUR) 20 MEQ ASDIR PRN PO Potassium Chloride (K-DUR) 40 MEQ ASDIR PRN PO Potassium Chloride (K-DUR) 40 MEQ ASDIR PRN PO Potassium Chloride (KCL 10 MEQ/100ML) 100 ML Q1H PRN PRN IV Potassium Chloride (KCL 10 MEQ/100ML) 100 ML Q1H PRN PRN IV Potassium Chloride (KCL 10 MEQ/100ML) 100 ML Q1H PRN PRN IV Potassium Chloride (KCL 20 MEQ/100 ML) 100 ML Q1H PRN PRN IV Potassium Chloride (KCL 20 MEQ/100 ML) 100 ML Q1H PRN PRN IV Potassium Chloride (KCL 20 MEQ/100 ML) 100 ML Q1H PRN PRN IV Potassium Phos/Sodium Phos (PHOS-NAK PACKET) 1 PKT ASDIR PRN PO (CKD) Potassium Phosphate (Potassium Phosphate) 15 MMOL ASDIR PRN IV Sodium Chloride (NORMAL SALINE 250 ML) 250 MLPotassium Phosphate (Potassium Phosphate) 30 MMOL ASDIR PRN IV Sodium Chloride (SODIUM CHLORIDE 0.9% 500 ML) 500 MLAcetaminophen (TYLENOL) 650 MG Q4H PRN PRN PO Acetaminophen (TYLENOL) 650 MG Q6H PRN PRN RECTAL Al Hydrox/Mg Hydrox/Simethicone (MAALOX PLUS) 30 ML Q4H PRN PRN PO Calcium Carbonate (TUMS) 1,000 MG DAILY PRN PRN PO Clonidine HCl (CATAPRES) 0.1 MG Q6H PRN PRN PO Enoxaparin Sodium (LOVENOX) 40 MG Q24H SUBQ Guaifenesin/Dextromethorphan (ROBITUSSIN-DM) 10 ML QID PRN PRN PO Hydrocodone Bitart/Acetaminophen (NORCO 5/325 TABLET) 1 TAB Q4H PRN PRN PO Hydrocodone Bitart/Acetaminophen (NORCO 10/325 TABLET) 1 TAB Q4H PRN PRN PO Miscellaneous Information (VANCOMYCIN PHARMACY TO DOSE) 1 EACH ASDIR IV (CKD) Ondansetron HCl (ZOFRAN) 4 MG Q4H PRN PRN IV Senna (SENOKOT) 1 TAB DAILY PRN PRN PO (CKD) Simethicone (MYLICON) 160 MG Q6H PRN PRN PO Trazodone HCl (DESYREL) 50 MG BEDTIME PRN PRN PO ResultsFindings/Data:Laboratory Tests 04/29 04/29 04/29 04/29 1038 0926 0447 0408Chemistry Sodium (133 - 144 mmol/L) 136.0 Potassium (3.5 - 5.1 mmol/L) 3.9 Chloride (95 - 105 mmol/L) 107 H Carbon Dioxide (21 - 32 mmol/L) 24 Anion Gap (4.0 - 15.0 GAP calc) 5.0 BUN (7 - 18 MG/DL) 16 Creatinine (0.55 - 1.30 MG/DL) 0.61 Glomerular Filtr Rate (>60 estGFR) 113 Glucose (70 - 110 MG/DL) 219 H POC Glucose (70 - 119 MG/DL) 186 H 176 H 183 H Calcium (8.5 - 10.1 MG/DL) 8.0 L Specimen Appearance (1 NORMAL Index/DL) 1 NORMAL <2 MG Specimen Hemolysis (1 NORMAL Index/DL) 1 NORMAL <10 MG 04/28 1540 Chemistry POC Glucose (70 - 119 MG/DL) 161 H 244 H Results: labs reviewed, vital signs reviewed, vital signs stable, current med profile rev'd Free Text Obj NotesFree Text Obj Notes:GENERAL APPEARANCE: He is awake, alert, oriented, not in acute distress, lyingcomfortably in the bed.HEENT: Atraumatic, normocephalic. Oral mucosa moist.NECK: Supple, no JVD.CARDIOVASCULAR: S1, S2 present, regular.LUNGS: Clear to auscultation.ABDOMEN: Soft, nontender, nondistended.SKIN: No rashes.NEUROLOGIC: No focal deficits.EXTREMITIES: Left foot is in dressing. Diagnosis, Assessment Plan Free Text DxA P NotesFree text DxA P notes: This is a 56-year-old male with:1. Diabetic foot infection. The patient had multiple procedures and alsofinished 6 weeks of IV antibiotics as per ID prior to hospitalization. Follow culture results. Continue antibiotics as per ID. Orthopedics is consulted and patient is s/p BKA. Continue postop care as per orthopedics recommendations.2. Diabetes is uncontrolled. Hemoglobin A1c is 10.1. Blood sugars elevated. We will increase NPH dosing and continue sliding scale of insulin and monitor the blood sugars.3. History of coronary artery disease status post coronary artery bypass graftx4 in 2016. Continue aspirin, Plavix, statin and beta marcell. No acute issuesat this time.4. History of peripheral vascular disease. Continue aspirin, Plavix and statin.5. Deep venous thrombosis prophylaxis with Lovenox.6. Hyponatremia. This is most likely pseudohyponatremia from elevated bloodsugars. Resolved.Plan discussed with the patient. All of his questions answered to his understanding.Discussed with nursing at 1437 RPT #:[id number] OF REPORTPRProgress [id number]:08:[id number] Available for patient [id number]:37:26 [facility] 2022-04-28 11:37:00 [id number]/WqcjDIcDq4sD5 zf9l 8EFu/wJjDWsrqM3gVamQDj1r7dRPzBVa6407-12-73K7 1:37:00 [facility]Pharm[facility] Prog.Note-VancomycinREPORT#:[id number] REPORT STATUS: SignedDATE:04/28/22 TIME: 1137 PATIENT: BRIGHT SALAZAR UNIT #: [id number]#: [id number] [facility] [place]: [birth year] AGE: 56 SEX: M ATTEND: Yung Loomis [facility] AUTHOR: Brody Lopez [facility] * ALL edits or amendments must be made on the electronic/computer document * Vancomycin Vancomycin Medication TherapyGoal: 03-28Indication for treatment:SSTILabs:Laboratory Tests: 04/28 0941 Toxicology Vancomycin Trough (10 - 20 mcG/ML) 11.3 Laboratory Test : 04/28 1138 Chemistry BUN (7 - 18 MG/DL) 26 H 19 H Creatinine (0.55 - 1.30 MG/DL) 0.99 0.74 Hematology WBC (4.1 - 12.1 K/mm3) 7.4 Microbiology:04/26 165 FOOT: Wound Culture - RES PROTEUS EJPHQIMX35/18 1654 FOOT: Gram Stain - RES04/26 929 BLOOD: Blood Culture - RES04/26 929 BLOOD: Blood Culture - RES04/26 929 BLOOD: Blood Culture - RES04/26 929 BLOOD: Blood Culture - RES Treatment plan: cont current regimen/doseRegimen:WILL CONTINUE WITH VANC 1.25 GM IV Q12 FOR NOW AND MONITOR LABS AND LEVELS INDICATED at 1137 RPT #:[id number] OF REPORTPRProgress [id number]:37:[id number] Available for patient [id number]:38:14 [facility] 2022-04-28 11:00:00 [id number]/er+8u gJ28 o8SiCH4G7HCA2rWBj7f9/lneZAgWTN/[id number] 1:00:00 [facility] CenterOrthopaedic Progress NoteREPORT#:[id number] REPORT STATUS: SignedDATE:04/28/22 TIME: 1100 PATIENT: BRIGHT SALAZAR UNIT #: [id number]#: [id number] [facility] [place] [birth year] AGE: 56 SEX: M ATTEND: Yung Loomis [facility] AUTHOR: Gurwinder Mcbride APRNNP * ALL edits or amendments must be made on the electronic/computer document * Gurwinder Mcbride 04/28/22 1100:SubjectiveComments:56-year-old male POD 1 left AKA. Patient sitting up in bed alert and oriented on exam this a.m., patient reports successful physical therapy and Occupational Therapy session earlier today. Patient reports that pain is present, but well-tolerated on current regimen. Questions answered regarding previous day procedure as well as projected outcomes and future staging of stump closure. ObjectiveVS:Last Documented: Result Date Time Pulse Ox 97 04/28 740 B/P 101/61 04/28 740 B/P Mean 74.5 04/28 740 O2 Delivery Room air 04/28 740 Temp 99.5 04/28 740 Pulse 85 04/28 740 Resp 15 04/28 740 PATIENT WEIGHT: Weight (lb): Weight (oz): Weight (kg): 90.909 Medications:Active Meds + DC'd Last 24 HrsMethocarbamol (ROBAXIN) 500 MG Q6HR IV Gabapentin (NEURONTIN) 300 MG TID PO Methocarbamol (ROBAXIN) 500 MG Q6H IV (CAN) Methocarbamol (ROBAXIN) 500 MG Q6H IV (DC) Sodium Chloride (NORMAL SALINE 100 ML) 100 MLAcetaminophen (TYLENOL) 650 MG PACU ONCE PO (DC) Albuterol Sulfate (PROVENTIL NEB) 2.5 MG PACU ONCE PRN PRN NEB (DC) Dexamethasone Sodium Phosphate (DECADRON 4MG/ML) 4 MG PACU ONCE IV (DC) Fentanyl Citrate (SUBLIMAZE) 25 MCG PACU Q5MIN PRN PRN IV (DC) Hydralazine HCl (APRESOLINE) 10 MG PACU Q15MIN PRN PRN IV (DC) Hydromorphone HCl (DILAUDID) 0.5 MG PACU Q5MIN PRN PRN IV (DC) Ketorolac Tromethamine (TORADOL) 15 MG PACU ONCE IV (DC) Lactated Ringer's (LACTATED RINGERS) 1,000 ML PACU IV (DC) Lidocaine (LIDODERM PATCH) 1 PATCH PACU ONCE TRANSDERM (DC) Metoprolol Tartrate (LOPRESSOR) 2 MG PACU Q5MIN PRN PRN IV (DC) Naloxone HCl (NARCAN) 0.1 MG PACU ONCE PRN PRN IV (DC) Ondansetron HCl (ZOFRAN) 4 MG PACU ONCE PRN PRN IV (DC) Tramadol HCl (ULTRAM) 50 MG Q6HR PO Dexamethasone Sodium Phosphate (DECADRON 4MG/ML) 0 .STK-MED ONE .ROUTE (DC) Ketorolac Tromethamine (TORADOL) 0 .STK-MED ONE .ROUTE (DC) Lidocaine HCl (XYLOCAINE 1% 5ML) 5 ML .STK-MED ONE IV (DC) Ondansetron HCl (ZOFRAN) 0 .STK-MED ONE .ROUTE (DC) Succinylcholine Chloride (QUELICIN, ANECTINE) 0 .STK-MED ONE .ROUTE (DC) Hydromorphone HCl (DILAUDID) 0 .STK-MED ONE .ROUTE (DC) Cefazolin Sodium (ANCEF 1 GM) 0 .STK-MED ONE IV (DC) Fentanyl Citrate (SUBLIMAZE) 0 .STK-MED ONE .ROUTE (DC) Midazolam HCl (VERSED) 0 .STK-MED ONE .ROUTE (DC) Propofol (DIPRIVAN) 20 ML .STK-MED ONE IV (DC) Bupivacaine HCl (BUPIVACAINE HCL) 0 .STK-MED ONE .ROUTE (DC) Lidocaine/Epinephrine (XYLOCAINE 1% W/EPI 20ML VIAL) 0 .STK-MED ONE .ROUTE (DC) Morphine Sulfate (morphine PF SYRINGE) 2 MG Q4H PRN PRN IV Aspirin (ASPIRIN) 81 MG BID PO Metoprolol Tartrate (LOPRESSOR) 50 MG BID PO Pravastatin Sodium (PRAVASTATIN SODIUM) 20 MG BEDTIME PO Vancomycin HCl (Vancomycin HCl) 1.25 GM Q12HR IV Sodium Chloride (NORMAL SALINE 250 ML) 250 MLZolpidem Tartrate (AMBIEN) 10 MG BEDTIME PO Meropenem (MERREM) 500 MG Q6HR IV Sterile Water (STERILE WATER) 10 MLClopidogrel Bisulfate (PLAVIX) 75 MG DAILY PO Insulin Human NPH (HumuLIN N) 15 UNIT BID AC SUBQ Pantoprazole (PROTONIX) 40 MG DAILY PO Magnesium Sulfate (MAGNESIUM SULFATE 2GM/50ML BAG) 50 ML Q1H PRN PRN IV Magnesium Sulfate/Dextrose (MAGNESIUM SULFATE 1GM/D5W 100ML) 100 ML ASDIR PRN IV Potassium Chloride (K-DUR) 20 MEQ ASDIR PRN PO Potassium Chloride (K-DUR) 40 MEQ ASDIR PRN PO Potassium Chloride (K-DUR) 40 MEQ ASDIR PRN PO Potassium Chloride (KCL 10 MEQ/100ML) 100 ML Q1H PRN PRN IV Potassium Chloride (KCL 10 MEQ/100ML) 100 ML Q1H PRN PRN IV Potassium Chloride (KCL 10 MEQ/100ML) 100 ML Q1H PRN PRN IV Potassium Chloride (KCL 20 MEQ/100 ML) 100 ML Q1H PRN PRN IV Potassium Chloride (KCL 20 MEQ/100 ML) 100 ML Q1H PRN PRN IV Potassium Chloride (KCL 20 MEQ/100 ML) 100 ML Q1H PRN PRN IV Potassium Phos/Sodium Phos (PHOS-NAK PACKET) 1 PKT ASDIR PRN PO (CKD) Potassium Phosphate (Potassium Phosphate) 15 MMOL ASDIR PRN IV Sodium Chloride (NORMAL SALINE 250 ML) 250 MLPotassium Phosphate (Potassium Phosphate) 30 MMOL ASDIR PRN IV Sodium Chloride (SODIUM CHLORIDE 0.9% 500 ML) 500 MLAcetaminophen (TYLENOL) 650 MG Q4H PRN PRN PO Acetaminophen (TYLENOL) 650 MG Q6H PRN PRN RECTAL Al Hydrox/Mg Hydrox/Simethicone (MAALOX PLUS) 30 ML Q4H PRN PRN PO Calcium Carbonate (TUMS) 1,000 MG DAILY PRN PRN PO Clonidine HCl (CATAPRES) 0.1 MG Q6H PRN PRN PO Dextrose/Water (DEXTROSE 50%-WATER) 25 ML ASDIR PRN IV (CKD) Enoxaparin Sodium (LOVENOX) 40 MG Q24H SUBQ Glucagon (GLUCAGON) 1 MG ASDIR PRN IM Glucose Polymer (GLUTOSE) 15 GM ASDIR PRN PO Guaifenesin/Dextromethorphan (ROBITUSSIN-DM) 10 ML QID PRN PRN PO Hydrocodone Bitart/Acetaminophen (NORCO 5/325 TABLET) 1 TAB Q4H PRN PRN PO Hydrocodone Bitart/Acetaminophen (NORCO 10/325 TABLET) 1 TAB Q4H PRN PRN PO Insulin Human Lispro (HUMALOG) See Admin Criteria ASDIR PRN SUBQ Miscellaneous Information (VANCOMYCIN PHARMACY TO DOSE) 1 EACH ASDIR IV (CKD) Ondansetron HCl (ZOFRAN) 4 MG Q4H PRN PRN IV Senna (SENOKOT) 1 TAB DAILY PRN PRN PO (CKD) Simethicone (MYLICON) 160 MG Q6H PRN PRN PO Trazodone HCl (DESYREL) 50 MG BEDTIME PRN PRN PO Free Text Obj NotesFree Text Obj Notes:Left lower extremity:Dressings clean dry and intact on the left stump. Wound VAC remains in place, moderate amount of output overnight, serosanguineous in nature. Patient able toflex and extend stump at knee without difficulty. Diagnosis, Assessment PlanFree text A P:56-year-old maleDOI: July 2020Mechanism: Frostbite and subsequent diabetic foot ulcerInjury: Left foot gangrene Procedure date: 2Procedure:Left below-knee amputationWound VAC applicationSurgeon: Jasiel Lundberg MD Patient doing well, plan for staged closure of stump. This was discussed with patient, he confirms understanding, will continue to follow to determine timing of closure. Postoperative plan:Wound: Wound VAC. Please notify if there is any significant drainage from the wound VAC for short period of timeActivity: Nonweightbearing left lower extremityIM: Appreciate trauma service management of this severely injured patient. To facilitate fracture healing, recommend patient take 1200 mg calcium,5000 IU vitamin D3, 500 mg vitamin C daily, either as a multivitamin or individual supplements.ID: Continue IV antibioticsDVT: SCDs when in bed. DVT chemoprophylaxis to begin postop day 1. Recommend Lovenox. We will hold 12 hours before second surgeryDecub: Standard precautions. Inspect occiput, sacrum, heels daily. Encourage frequent turning, position changes.Dispo: Return to the OR likely Friday for repeat irrigation and debridement and amputation closure.F/U: Pending. Orthopedic Trauma [address] [place] [address] [address], [place], [place] [phone] RPT #:[id number] OF REPORT Jasiel Lundberg 04/28/22 1559:Attestations Physician AttestationAgree w/findings plan:I personally examined the patient today and I agree with the findings and plan as documented by Gurwinder Mcbride NP. Patient doing well. Pain controlled. Endorses phantom pain in his great toe which she had before surgery. Wound VAC output is approximately 400 cc. We will plan for left below-knee amputation wound closure tomorrow. at 1104 at 1600 RPT #:[id number] OF REPORTPRProgress [id number]:00:00B.[id number] Available for patient [id number]:04:[address] [facility] 2022-04-28 10:49:00 [id number] Jqgn tNNaqmCSGxZluySOXCUCwBJ7AzEw5D/[id number] 0:49:073143-[address] [place], [place] [address] PATIENT NAME: BRIGHT SALAZAR ADMIT DATE: 04/26/22ACCOUNT NO: [id number] ROOM NO: 405 AGE: 56 REPORT TYPE: PROGRESS NOTE SEX: M ADMITTING PHYSICIAN:Yung Loomis MD ATTENDING PHYSICIAN:Yung Loomis MD DATE:04-28-22 INFECTIOUS DISEASE PROGRESS NOTE TIME: 1047 hours. The patient is status post left BKA yesterday on 04/27/2022. The operative report is read and noted. SUBJECTIVE: The patient is complaining of pain of his left leg. Otherwise, hehas no new issues. He was able to eat breakfast this morning with no nausea or vomiting. OBJECTIVE:VITAL SIGNS: Noted.GENERAL: He is afebrile lying quietly in bed, nontoxic.HEART: Regular rate. S1, S2 present.LUNGS: Clear.ABDOMEN: Soft. Bowel sounds are noted, nondistended, nontender.EXTREMITIES: His left leg is dressed. Dressing is not removed and he has awound VAC in place. LABORATORY DATA: The patient's blood cultures from 04/26/2022 remain negative.Culture of his left foot from 04/26/2022 has Proteus vulgaris resistant tocefazolin, Unasyn and ceftriaxone. His white count yesterday was 7400.Vancomycin trough today is 11.3 and his metabolic profile today shows a BUN of26, creatinine 0.99. His antimicrobial therapies are IV meropenem as well as IV vancomycin perpharmacy protocol. ASSESSMENT:1. A 56-year-old male.2. Left foot infection with necrosis, status post left BKA yesterday, forrevision tomorrow.3. Diabetes mellitus out of control with hemoglobin A1c of 10.1.4. Tobacco abuse.5. Peripheral vascular disease. RECOMMENDATIONS: At the present time, the patient is medically stable.However, at this point, I will continue both antimicrobial therapies and if hiscultures remain negative except for the Proteus, i will deescalate his PATIENT NAME: BRIGHT SALAZAR antimicrobialtherapy. All of his questions were answered. Dictated By: Jacquie De La Garza MD Date Dictated: 04/28/2022 10:49:38Date Transcribed: 04/28/2022 11:48:04CC/ELIZABETH/Anjali #: [id number] ID: [id number] and Edited by Jacquie De La Garza MD On 04/28/22 1:34:37 PM at 0137 PATIENT NAME: BRIGHT SALAZAR [id number]:48:00B.[id number] vailable for patient esrgNWQJLKLQLLFHKZ1384-11-29F77:38:[address] [facility] 2022-04-27 17:18:00 [id number] OT3s DqX+Yc6l+DafsEywHCJRWPJ5cPXZPzzL6218-99-45Z7 7:18:00 [facility] ([facility])DT Operative NoteREPORT#:[id number] REPORT STATUS: SignedDATE:04/27/22 TIME: 1718 PATIENT: BRIGHT SALAZAR UNIT #: [id number]#: [id number] [facility] [place] [birth year] AGE: 56 SEX: M ATTEND: Yuli Pink [facility] AUTHOR: Jasiel Lundberg MD * ALL edits or amendments must be made on the electronic/computer document * Operative Report Operative NoteNote:Operative Note Date: 04/27/2022reprocedure diagnosis:Left foot wet gangrenePostprocedure diagnosis: Same Procedure:Left below-knee amputationWound VAC application Surgeon: Jasiel Lundberg MD Nursing Home Assistant Administrator: Gurwinder Mcbride NP A surgical instrument technician was necessary throughout the procedure for the following aspects of the procedure: patient positioning, retraction of soft tissues for adequate exposure, intraoperative manipulation and positioning of the operative extremity, assistance with implant placement and wound closure. This assistancewas instrumental in significantly facilitating the procedure, decreasing operative time, reducing surgical risk, and improving operative efficiency. Anesthesia: GeneralFindings: Healthy appearing muscleComplications: NoneBlood loss: 50 ccSpecimens: LegDrains: Wound VACTubes: NoneImplants: NoneFluids: Per anesthesiaUrine output: Per anesthesiaApproach: Standard below-knee amputation with posterior flapDisposition: Stable to PACU HPI: Patient is a 56-year-old male with a past medical history of coronary artery disease status post quadruple bypass, diabetes, that originally had frostbite to his left great toe approximately 2 years ago with amputation of thetoe. He has subsequently had multiple surgeries with additional toe amputationsand had a transmetatarsal amputation several months ago. Patient states that aneschar formed over the area and worsened. He was admitted to outside hospital for IV antibiotics few weeks ago and states that during admission things in the foot got worse. At that time he was not ready for below-knee amputation but presented today with worsening infection and would like to proceed with below-knee amputation. He has had cellulitis in the lower leg as well. Patient had wet gangrene at the transmetatarsal amputation. After IV antibiotics, cellulitis of the lower leg and improved. He denies fevers chills chest pain shortness of breath.I discussed transtibial amputation of the left lower extremity with the patient. Patient is ready for this amputation as he does not feel that the wound is healing and has been on IV antibiotics before without improvement. He continuesto have infectious processes in the foot and is ready for amputation in order tohave definitive treatment of his wounds. We discussed the importance of blood sugar control and patient states that his A1c has improved from 14-10 in the last 2 months since he started insulin.Risks and benefits of surgery were discussed including pain, bleeding, infection, damage to surrounding structures with muscle tendon bone nerve ligament vessel, need for further surgeries, nonhealing wounds, phantom pain, stroke, heart attack, , complications of anesthesia. Patient would like to proceed with operative intervention with left below-knee amputation. I discussed that I perform surgery in 2 stages with the first being the preliminary bone cuts and removal of the infection source and return to the OR in 48 to 72 hours with revision of the bone cuts and wound closure if everything appears healthy. If the wound at that point does not appear healthy, we would irrigate and debride the wound of devitalized tissue and would return at a later date for another attempted definitive closure. I asked that the patient wanted to speak with amputees about the condition and patient stated that he has friends or amputees that he can speak to about the process. Questions were invited and answered. Noguarantees of outcome were made or implied. The patient verbalized understandingbefore voluntarily signing the consent. Procedure:On date of operation after verification of patient identity, appropriate surgical site, and informed consent, as well as administration of preoperativeantibiotics, the patient was taken to the operating room and placed supine on the OR table with all pressure points padded. General anesthesia was induced. The operative extremity was scrubbed with chlorhexidine scrub sponges. The limbwas then prepped and draped in usual sterile fashion.After multidisciplinary timeout, the incision for transtibial amputation was marked out with a long posterior flap. The tourniquet was inflated and incisionwas made over the premarked area. Attention was first turned to the anterior compartment and dissection was carried out through the anterior compartment. The anterior tibial artery and vein was identified and was tied with a stick tieand passer. The nerve was dissected out, pulled taut, injected with lidocaine mixed with bupivacaine and was cut with a scalpel proximally to allow it to retract into muscle. The saphenous nerve and vein were identified. The nerve was cut and the vein was ligated. Dissection was made through the lateral compartment musculature and along the medial incision down the length of the leg. Soft tissues were freed around the tibia and the neurovascular bundle behind the tibia was protected. A saw was used to cut the tibia at the level ofthe skin incision. The fibula was next cut proximal to the length of the tibia with a smaller soft. The deep posterior compartment musculature was elevated off of the posterior tibia and fibula and the amputation was completed with a scalpel and amputation knife. The posterior tibial neurovascular bundle and theperoneal nerve and vein were identified. The nerves were held taut, injected with lidocaine mixed with bupivacaine, and sharply cut proximally to allow them to retract. The nerve and artery were dissected out and were controlled with a stick tie and passer tied. Muscle tissue appeared healthy. The sural nerve wasfound, injected and cut short allowed to retract. The tourniquet was released and no brisk bleeding was noted. Muscle tissue appeared healthy. The wound wascopiously irrigated with 6 L of normal saline. 0 PDS was used to reapproximate fascia and a wound VAC was placed. Sterile dressings were applied. The patientwas awoken from anesthesia and was taken recovery in stable condition. Postoperative plan:Wound: Wound VAC. Please notify if there is any significant drainage from the wound VAC for short period of timeActivity: Nonweightbearing left lower extremityIM: Appreciate trauma service management of this severely injured patient. To facilitate fracture healing, recommend patient take 1200 mg calcium,5000 IU vitamin D3, 500 mg vitamin C daily, either as a multivitamin or individual supplements.ID: Continue IV antibioticsDVT: SCDs when in bed. DVT chemoprophylaxis to begin postop day 1. Recommend Lovenox. We will hold 12 hours before second surgeryDecub: Standard precautions. Inspect occiput, sacrum, heels daily. Encourage frequent turning, position changes.Dispo: Return to the OR likely Friday for repeat irrigation and debridement and amputation closure.F/U: Pending. to arrange follow-up at [place] at 0646 RPT #:[id number] OF REPORTOPOperative klabme9064-20-45S73:18:00B.[id number] AVAvailable for patient aqckJYFUZBYMMTOAMY5107-18-14D88:46:[address] [facility] 2022-04-27 11:28:00 [id number]WEi fgWP wNli+Oxz4GnHK+FNoVU+swHQ3yOz2gUC2350-12-63G5 1:28:00 [facility] ([facility] SYSTEMHospitalist Progress NoteREPORT#:[id number] REPORT STATUS: SignedDATE:04/27/22 TIME: 1128 PATIENT: BRIGHT SALAZAR UNIT #: [id number]#: [id number] [facility] AGE: 56 SEX: M ATTEND: Yung Loomis [facility] AUTHOR: Yuli Pink MD * ALL edits or amendments must be made on the electronic/computer document * SubjectivePatient reports:No: complaints. Nursing reports:No: complaints. Comments:Seen and examined this morningReports feeling okay and pain under controlAwaiting surgeryRN reports no overnight events Objective GeneralVS/I O:Vital Signs: Date Time Temp Pulse Resp B/P B/P Pulse O2 O2 Flow FiO2 Mean Ox Delivery Rate 04/27 1107 36.4 67 18 113/70 84.4 99 04/27 0739 36.6 81 18 150/84 105.8 99 04/27 0500 36.5 76 14 148/87 107.0 98 Room air 04/27 0020 36.8 74 14 117/72 86.9 95 Room air 04/26 2110 36.5 91 14 144/79 100.7 97 Room air 04/26 2109 36.5 87 14 144/88 106.7 96 Room air 04/26 2018 92 16 164/85 111 98 Room air 24 hour I O ending at 0700: 04/27 0700 04/26 1900 Intake Total Output Total 100 Balance -100 Output, Urine 100 Patient 90.909 kg Weight Weight Stated/Reported Measurement Method PATIENT WEIGHT: Weight (lb): Weight (oz): Weight (kg): 90.909 Medications:Active Meds + DC'd Last 24 HrsCeftriaxone Sodium (ROCEPHIN) 1 GM Q24H IV (CAN) Sterile Water (STERILE WATER) 10 MLMorphine Sulfate (morphine PF SYRINGE) 2 MG Q4H PRN PRN IV Aspirin (ASPIRIN) 81 MG BID PO Metoprolol Tartrate (LOPRESSOR) 50 MG BID PO Pravastatin Sodium (PRAVASTATIN SODIUM) 20 MG BEDTIME PO Vancomycin HCl (Vancomycin HCl) 1.25 GM Q12HR IV Sodium Chloride (NORMAL SALINE 250 ML) 250 MLZolpidem Tartrate (AMBIEN) 10 MG BEDTIME PO Meropenem (MERREM) 500 MG Q6HR IV Sterile Water (STERILE WATER) 10 MLClopidogrel Bisulfate (PLAVIX) 75 MG DAILY PO Insulin Human NPH (HumuLIN N) 15 UNIT BID AC SUBQ Meropenem (MERREM) 500 MG Q6H IV (DC) Sterile Water (STERILE WATER) 10 MLDiphtheria/Pertussis/Tetanus Vacc (ADACEL) 0.5 ML ONCE ONE IM (DC) Aspirin (ASPIRIN) 81 MG BID PO (DC) Clopidogrel Bisulfate (PLAVIX) 75 MG DAILY PO (DC) Metoprolol Tartrate (LOPRESSOR) 50 MG BID PO (DC) Pantoprazole (PROTONIX) 40 MG DAILY PO Magnesium Sulfate (MAGNESIUM SULFATE 2GM/50ML BAG) 50 ML Q1H PRN PRN IV Magnesium Sulfate/Dextrose (MAGNESIUM SULFATE 1GM/D5W 100ML) 100 ML ASDIR PRN IV Potassium Chloride (K-DUR) 20 MEQ ASDIR PRN PO Potassium Chloride (K-DUR) 40 MEQ ASDIR PRN PO Potassium Chloride (K-DUR) 40 MEQ ASDIR PRN PO Potassium Chloride (KCL 10 MEQ/100ML) 100 ML Q1H PRN PRN IV Potassium Chloride (KCL 10 MEQ/100ML) 100 ML Q1H PRN PRN IV Potassium Chloride (KCL 10 MEQ/100ML) 100 ML Q1H PRN PRN IV Potassium Chloride (KCL 20 MEQ/100 ML) 100 ML Q1H PRN PRN IV Potassium Chloride (KCL 20 MEQ/100 ML) 100 ML Q1H PRN PRN IV Potassium Chloride (KCL 20 MEQ/100 ML) 100 ML Q1H PRN PRN IV Potassium Phos/Sodium Phos (PHOS-NAK PACKET) 1 PKT ASDIR PRN PO (CKD) Potassium Phosphate (Potassium Phosphate) 15 MMOL ASDIR PRN IV Sodium Chloride (NORMAL SALINE 250 ML) 250 MLPotassium Phosphate (Potassium Phosphate) 30 MMOL ASDIR PRN IV Sodium Chloride (SODIUM CHLORIDE 0.9% 500 ML) 500 MLAcetaminophen (TYLENOL) 650 MG Q4H PRN PRN PO Acetaminophen (TYLENOL) 650 MG Q6H PRN PRN RECTAL Al Hydrox/Mg Hydrox/Simethicone (MAALOX PLUS) 30 ML Q4H PRN PRN PO Calcium Carbonate (TUMS) 1,000 MG DAILY PRN PRN PO Clonidine HCl (CATAPRES) 0.1 MG Q6H PRN PRN PO Dextrose/Water (DEXTROSE 50%-WATER) 25 ML ASDIR PRN IV (CKD) Enoxaparin Sodium (LOVENOX) 40 MG Q24H SUBQ Glucagon (GLUCAGON) 1 MG ASDIR PRN IM Glucose Polymer (GLUTOSE) 15 GM ASDIR PRN PO Guaifenesin/Dextromethorphan (ROBITUSSIN-DM) 10 ML QID PRN PRN PO Hydrocodone Bitart/Acetaminophen (NORCO 5/325 TABLET) 1 TAB Q4H PRN PRN PO Hydrocodone Bitart/Acetaminophen (NORCO 10/325 TABLET) 1 TAB Q4H PRN PRN PO Insulin Human Lispro (HUMALOG) See Admin Criteria ASDIR PRN SUBQ Miscellaneous Information (VANCOMYCIN PHARMACY TO DOSE) 1 EACH ASDIR IV (CKD) Ondansetron HCl (ZOFRAN) 4 MG Q4H PRN PRN IV Senna (SENOKOT) 1 TAB DAILY PRN PRN PO (CKD) Simethicone (MYLICON) 160 MG Q6H PRN PRN PO Trazodone HCl (DESYREL) 50 MG BEDTIME PRN PRN PO Insulin Human Regular (HumuLIN R) 20 UNIT X1ED STA SUBQ (DC) Miscellaneous Information (VANCOMYCIN PHARMACY TO DOSE) 1 EACH ASDIR IV (DC) ResultsFindings/Data:Laboratory Tests 04/27 04/27 04/26 0737 0019 1816 Chemistry POC Glucose (70 - 119 MG/DL) 163 H 149 H 266 H Radiology data:Recent Impressions:RADIOLOGY - XR TIBIA/FIBULA 2 V LT 04/26 1634 Report Impression - Status: SIGNED Entered: 04/26/2022 1704 IMPRESSION:No acute osseous abnormality.Impression By: [email or web address] - Olamide Pantoja MD Results: labs reviewed, vital signs reviewed, vital signs stable, current med profile rev'd Free Text Obj NotesFree Text Obj Notes:GENERAL APPEARANCE: He is awake, alert, oriented, not in acute distress, lyingcomfortably in the bed.HEENT: Atraumatic, normocephalic. Oral mucosa moist.NECK: Supple, no JVD.CARDIOVASCULAR: S1, S2 present, regular.LUNGS: Clear to auscultation.ABDOMEN: Soft, nontender, nondistended.SKIN: No rashes.NEUROLOGIC: No focal deficits.EXTREMITIES: Left foot is in dressing. Diagnosis, Assessment Plan Free Text DxA P NotesFree text DxA P notes: This is a 56-year-old male with:1. Diabetic foot infection. The patient had multiple procedures and alsofinished 6 weeks of IV antibiotics as per ID prior to hospitalization. Follow culture results. Continue antibiotics as per ID. Orthopedics is consulted and patient is awaiting surgery. Awaiting Doppler results. 2. Diabetes is uncontrolled. Hemoglobin A1c is 10.1. T continue NPH 15 twice daily and continue sliding scale of insulin and monitor blood sugars.3. History of coronary artery disease status post coronary artery bypass graftx4 in 2016. Continue aspirin, Plavix, statin and beta marcell. No acute issuesat this time.4. History of peripheral vascular disease. Continue aspirin, Plavix and statin.5. Deep venous thrombosis prophylaxis, will be done with Lovenox.6. Hyponatremia. This is most likely pseudohyponatremia from elevated bloodsugars. Resolved.Plan discussed with the patient. All of his questions answered to his understanding. at 1424 [facility] #:[id number] OF REPORTPRProgress [id number]:28:00B.[id number] Available for patient wqlzVEDSJMFZCVQZXT2136-00-30N46:24:[address] [facility] 2022-04-27 10:38:00 [id number]+JLa39fIzb JqNM 43fjq/fXU884Vn7XfhMqVrA9ok0hMZPa7093-65-97O8 0:38:[id number] [place], [place] [address] PATIENT NAME: BRIGHT SALAZAR ADMIT DATE: 04/26/22ACCOUNT NO: [id number] ROOM NO: B.[facility] AGE: 56 REPORT TYPE: PROGRESS NOTE SEX: M ADMITTING PHYSICIAN:Yung Loomis MD ATTENDING PHYSICIAN:Yung Loomis MD DATE: 04/27/2022 INFECTIOUS DISEASE PROGRESS NOTE TIME: 1035 hours.SUBJECTIVE: In discussion with the nurse, it appears that the patient isscheduled for surgery around 1011 hours today to have a left leg 2-stage procedure for a KA. The charge nurse was in the room and attempting to draw blood from this patient when I was in the room. In discussion with the patient, he did receive his tetanus vaccine yesterday. OBJECTIVE:VITAL SIGNS: Noted.GENERAL: He is lying quietly in bed, nontoxic. He to not moving because nurseis trying to obtain blood for ordered studies.EXTREMITIES: His left foot is dressed. Dressing is not removed. LABORATORY DATA: Blood cultures times 2 sets from yesterday are currentlypending and negative to date. His culture of the wound has gram-negative rodwith no identification yet. His antimicrobial therapies are IV meropenem as well as IV vancomycin. ASSESSMENT:1. A 56-year-old male.2. Diabetes mellitus, hemoglobin A1c 10.1, yesterday that is not wellcontrolled.3. Peripheral vascular disease.4. Tobacco abuse.5. Tetanus vaccine updated.6. Non-salvageable foot wound, patient to go to the OR today for 2-staged leftBKA. RECOMMENDATIONS: At present time, the patient is medically stable. At thispoint, I will continue his antimicrobial therapies and follow up on his culture.I recommend to continue antimicrobial therapies at this time. All of hisquestions were answered. Dictated By: Jacquie De La Garza MD PATIENT NAME: BRIGHT SALAZAR Date Dictated: 04/27/2022 10:38:33Date Transcribed: 04/27/2022 11:06:30CC/Emily #: [id number] ID: [id number] and Edited by Jacquie De La Garza MD On 04/27/22 12:56:03 PM at 1259 PATIENT NAME: BRIGHT SALAZAR cavx0702-63-60R28:06:00B.[id number] vailable for patient huiiKLKCPZHRBXIQSU3801-07-67S23:59:[address] [facility] 2022-04-27 07:30:00 [id number]/0oJcXNMzZ6uuPjZ88xEr/ZGK KI4u A+V6JfL9NX8Jx5cKPPSS47qtek8QVKIS2443-54-67A5 7:30:894813-[address] [address] PATIENT NAME: BRIGHT SALAZAR ADMIT DATE: 04/26/22ACCOUNT NO: [id number] ROOM NO: [id number] AGE: 56 REPORT TYPE: eARTERIAL ULTRASOUND SEX: M ADMITTING PHYSICIAN:Yung Loomis MD ATTENDING PHYSICIAN:Yung Loomis MD Name: BRIGHT SALAZAR Study Date: 04/27/2022 07:30 AMPatient Location:[place] [address] WMRN: [id number]: [id number] #: [id number]: MaleDOB: 1965 Gender: MaleAge: 56 yrsEthnicity: WReason For Study: PVD Measurements and Calculations No Right Laterality Left UnitProx PFA PSV 91.0 109.0 cm/secProx SFA PSV 83.4 105.3 cm/secMid SFA PSV 69.7 99.0 cm/secDist SFA PSV 62.2 69.7 cm/secDist Pop A PSV 84.6 79.7 cm/secDist GLENDA PSV 21.0 59.2 cm/secDist SUPERVISOR TYPE DISK QUALITY CONTROL PSV 70.5 cm/sec Interpretation SummaryTriphasic waveforms and mild diffuse PAD noted in the RLE down to thepopliteal artery. No flow noted in the RIGHT SUPERVISOR TYPE DISK QUALITY CONTROL. Monophasic waveforms andmoderate to severe PAD noted in the RIGHT DPA. Monophasic and biphasic waveforms are seen throughout the LLE with moderatediffuse disease. Right Velocities Left Velocities Right LegWaveforms in the common femoral are triphasic . Waveforms in the profunda aretriphasic . Waveforms in the proximal superficial femoral are triphasic .Waveforms in the mid superficial femoral are triphasic . Waveforms in thedistal superficial femoral are triphasic . Waveforms in the popltiteal artery PATIENT NAME: BRIGHT SALAZAR are triphasic .No flow visualized in the right posterior tibial artery. Waveforms in thedorsalis pedis artery are monophasic .Left LegWaveforms in the common femoral are triphasic . Waveforms in the proximalsuperficial femoral are monophasic . Waveforms in the mid superficial femoralare monophasic . Waveforms in the distal superficial femoral are monophasic .Waveforms in the profunda are biphasic . Waveforms in the popltiteal arteryare monophasic .Waveforms in the posterior tibial artery are monophasic . Waveforms in thedorsalis pedis artery are monophasic . Electronically signed by: Edsi Ascencio MD 04/27/2022 10:52 AMOrdering Physician: Yung LoomisRefloki Physician: Luis Enrique Mishra RPerformed By: Lexie Aldridge at 1052 PATIENT NAME: BRIGHT SALAZAR :52:00B.[id number] for patient tgnrXBFWCNGOMWZQHU8835-97-72H53:52:59 [facility] 2022-04-26 21:45:00 [id number] 1Ddf xc87I+oL7NA2xdCmzuatDzv6q8QGhKsl1569-39-67V5 1:45:[id number] [address] PATIENT NAME: BRIGHT SALAZAR ADMIT DATE: 04/26/22ACCOUNT NO: [id number] ROOM NO: [facility] AGE: 56 REPORT TYPE: eECHOCARDIOGRAM REPORT SEX: M ADMITTING PHYSICIAN:Yung Loomis MD ATTENDING PHYSICIAN:Yung Loomis MD Name: BRIGHT SALAZAR Study Date: 04/26/2022 09:45 PMPatient Location:[place] 1MRN: [id number]: [id number] BP: 164/85 mmHgAccount #: [id number]: MaleDOB: 1965 Gender: MaleAge: 56 yrsEthnicity: WReason For Study: pre op Cardiac Measurements with Normal Values:Ao root diam: 3.3 cm 20-37 mmLA dimension: 3.0 cm 19-40 mmLVIDd: 5.2 cm 37-56 mmLVIDs: 4.2 cm - IVSd: 1.2 cm6-11 mm MMode/2D Measurements CalculationsLVPWd: 1.2 cm FS: 19.8 % EDV(Teich): 129.4 ml ESV(Teich): 77.2 ml EF(Teich): 40.3 % LVOT diam: 2.2 cmAo root area: 8.4 cm2 LVOT area: 3.7 cm2 Time MeasurementsAortic R-R: 0.29 secAortic HR: 204.1 BPM Doppler Measurements CalculationsMV E max josias: 70.4 cm/sec MV dec slope: 509.8 cm/sec2MV A max josias: 112.7 cm/sec MV dec time: 0.14 secMV E/A: 0.62 Ao V2 max: 123.8 cm/sec LV V1 max P.0 mmHgAo max P.1 mmHg LV V1 max: 71.3 cm/secAo V2 mean: 83.8 cm/sec PATIENT NAME: BRIGHT SALAZAR Ao mean P.3 mmHgAo V2 VTI: 24.7 cmAVA(V,D): 2.1 cm2 PA V2 max: 104.4 cm/secPA max P.4 mmHg ConclusionsA complete two-dimensional transthoracic echocardiogram was performed (2D, M-mode, Doppler and color flow Doppler). The study was technically adequate.Patient was in NSR during the study. 1. The LV is mildly dilated with mild concentric LVH and mildly reducedsystolic function. The estimated EF is 45-50% with mild anteroseptal andapical hypokinesis.2. The RV is normal in size and systolic function. The RVSP cannot beestimated due to insufficient TR jet.3. The atria are both normal in size.4. The aortic valve is tri-leaflet and opens/closes well. There is a trace ofMR noted.5. The estimated RAP is normal at 5 mmHg.6. No pericardial effusion is appreciated.7. The aortic root is normal in size. No comparison study available. Electronically signed by: Edis Ascencio MD 04/27/2022 09:44 AMOrdering Physician: Yung LoomisReferring Physician: Yung LoomisPerformed By: Abdullahi Pettit at 0944 PATIENT NAME: BRIGHT SLAAZAR :44:00B.[id number] for patient zktwNJDQXRLIDXSGNS0772-96-12P83:45:[address] [facility] 2022-04-26 20:00:00 [id number]+t6DJKHv6WohFFsYiy 4ZKT 8OzFbZfd6IxUbNnmsVKKcEerVXiYagCa5234-84-40K5 0:00:00 [facility])Orthopaedic Consult NoteREPORT#:[id number] REPORT STATUS: SignedDATE:04/26/22 TIME: 1999 PATIENT: BRIGHT SALAZAR UNIT #: [id number]#: [id number] [facility] AGE: 56 SEX: M ATTEND: Yung Loomis MDADM AUTHOR: Jasiel Lundberg MD * ALL edits or amendments must be made on the electronic/computer document * History of Present Illness Time At Bedside)( Time at bedside: 190Requesting clinician: Emergency DepartmentReason for consult: InfectionChief complaint:left foot gangreneHPI:Patient is a 56-year-old male with a past medical history of coronary artery disease status post quadruple bypass, diabetes, that originally had frostbite tohis left great toe approximately 2 years ago with amputation of the toe. He hassubsequently had multiple surgeries with additional toe amputations and had a transmetatarsal amputation several months ago. Patient states that an eschar formed over the area and worsened. He was admitted to outside hospital for IV antibiotics few weeks ago and states that during admission things in the foot got worse. At that time he was not ready for below-knee amputation but presented today with worsening infection and would like to proceed with below-knee amputation. He has had cellulitis in the lower leg as well. He denies fevers chills chest pain shortness of breath. History - Adult longitudinalAdditional medical history:Diabetes, coronary artery diseaseAdditional surgical history:Multiple toe amputations, transmetatarsal amputation, CABG v7Pyfdxykwwi family history:Family history of diabetes, no bleeding or clotting dyscrasiasSmoking status for patients 13 years old or older: Current every day smokerDate last smoked: 04/26/22Allergies:Coded Allergies:No Known Allergies (07/24/12) Ambulatory status: Independent Review of Systems Free Text ROS NotesFree Text ROS Notes:Constitutional: Denies fevers and chillsSkin: Denies abrasions or bruisingAllergy/Immunology: Denies allergic reactionsEyes: Denies vision changes/blurry visionENT: Denies sore throat/rhinorrhea. Denies changes in hearing smell or tasteRespiratory: Denies shortness of breathCardiovascular: Denies chest painGI: Denies nausea vomiting diarrhea or constipationGU: Denies dysuriaMusculoskeletal: See HPIHeme: Denies recent easy bleeding or bruisingEndocrine: Denies hot or cold intoleranceNeurological: Neuropathy in the feet and lower legs with altered sensation up tothe ankle. Denies syncope. ObjectiveVS:Last Documented: Result Date Time Pulse Ox 99 04/27 1107 B/P 113/70 04/27 1107 B/P Mean 84.4 04/27 1107 Temp 97.5 04/27 1107 Pulse 67 04/27 1107 Resp 18 04/27 1107 O2 Delivery Room air 04/27 0500 PATIENT WEIGHT: Weight (lb): Weight (oz): Weight (kg): 90.909 Physical ExamGeneral appearance: alert, awake, no acute distressCardiovascular: regular rate rhythmRespiratory: no distressAbdomen: no guardingGenitourinary: no urinary catheterSkin: dry, intact ResultsRadiology data:Recent Impressions:RADIOLOGY - XR TIBIA/FIBULA 2 V LT 04/26 1634 Report Impression - Status: SIGNED Entered: 04/26/2022 1704 IMPRESSION:No acute osseous abnormality.Impression By: CriseldaNS15 - Olamide Pantoja MD X-ray interpretation:X-rays of the left foot demonstrate a transmetatarsal amputation. No obvious gas in the soft tissues. Free Text Obj NotesFree Text Obj Notes:Left lower extremity: Necrotic tissue and eschar over the transmetatarsal amputation. Patient able to flex and extend ankle. There is cellulitis withoutsignificant swelling up to the patient's proximal tibia. Patient able to flex and extend the knee without difficulty. Gastrocsoleus/tibialis anterior Sensation intact light touch in the foot and ankle with decreased secondary to neuropathy. BCR to foot, dopplerable PT and DP signals. SHRUTHI taken: .77 at left lower extremity Diagnosis, Assessment PlanFree Text A P:DOI: July 2020Mechanism: Frostbite and subsequent diabetic foot ulcerInjury: Left foot gangrene Plan for 2 stage left BKA tomorrowArterial duplex ultrasound to determine blood flow below and above knee before surgery.Risks and benefits of surgery were discussed including pain bleeding infection, damage to surrounding structures with muscle tendon bone nerve ligament vessel, need for further surgeries, nonhealing wounds, phantom pain, stroke, heart attack, , complications of anesthesia. Patient would like to proceed with operative intervention. at 1440 RPT #:[id number] OF REPORTRBBlsfvozlpidi0395-86-37R31:00:00B. [id number] for patient htubHFSXDYQJELKKUI8661-85-87O78:40:[address] [facility] 2022-04-26 15:23:00 [id number]+w5LIsDLW Pg3y 90JC+xj/32a0fjxEe7hzHS2SIqD1XcgL0670-73-55S6 5:23:00 [facility] ([facility])Cardiology ConsultationREPORT#:[id number] REPORT STATUS: SignedDATE:04/26/22 TIME: 1523 PATIENT: BRIGHT SALAZAR UNIT #: [id number]#: [id number] ROOM/BED: [address]: 65 AGE: 56 SEX: M ATTEND: Yung Loomis [facility] AUTHOR: Edis Ascencio MD * ALL edits or amendments must be made on the electronic/computer document * History of Present Illness HPIRequesting Clinician: Sarkis for consult:Pre-op cardiac eval HPI:Patient is a 56-year-old male with the below-listed past medical history who hashad ongoing foot issues to include need for TMA and longstanding wound care as well as endovascular interventions of the left lower extremity recently by Dr. Burden at [facility]. He is in need of amputation, and cardiology is asked to evaluate his preop risk. He reports that he has not beenhaving any acute heart failure symptoms or symptoms concerning for ACS in the past 2 months. He has not had stress testing performed since his revascularization with CABG in 2016. He does not recall his last echocardiogram, but he states it may have been within the last year. He follows with Dr. Stew Lara in the [place] system for his outpatient cardiology needs. History - Adult longitudinalAdditional medical history:T2DM, HTN, PAD, MVCAD, tobacco useAdditional surgical history:Multiple cardiac caths with interventions, CABG x4, foot debridement and great toe amputation followed by TMAAdditional family history:CAD, HTN multiple family membersSmoking status for patients 13 years old or older: Current every day smokerDate last smoked: 04/26/22Home medications:Home Medications:metFORMIN (GLUCOPHAGE) 1,000 MG PO BID METOPROLOL TARTRATE (LOPRESSOR) 50 MG PO BID CLOPIDOGREL (PLAVIX) 75 MG PO DAILY ASPIRIN 81 MG PO BID ZOLPIDEM (AMBIEN) 10 MG PO BEDTIME PANTOPRAZOLE DR (PROTONIX) 40 MG PO DAILY HYDROcodone/APAP (HYDROcodone/APAP 10/325) 1 TAB PO Q8HPRN PRAVASTATIN (PRAVACHOL) 20 MG PO BEDTIME Allergies:Coded Allergies:No Known Allergies (07/24/12) Review of SystemsConstitutional:Denies: chills, fever. Skin:Denies: bruising, diaphoresis. Allergy/Immun:Denies: rhinorrhea, sneezing. Eyes:Denies: visual loss/blurred, photophobia. ENT:Denies: nasal congestion, sore throat. Respiratory:Denies: AZEVEDO (dyspnea on exertion), SOB. Cardiovascular:Denies: chest pain, dyspnea on exertion, orthopnea, palpitations, parox nocturaldyspnea. GI:Denies: abdominal pain, nausea, vomiting. :Reports: nocturia. Denies: dysuria. Musculoskeletal:extremity pain, extremity swelling. Denies: myalgias. Heme:Denies: bleeding, bruising. Endocrine:polydipsia, polyuria. Denies: polyphagia. Neuro:Denies: focal weakness, lightheaded, syncope. Psych:insomnia. Denies: anxiety, depression. Objective GeneralVS/I O:Vital Signs: Date Time Temp Pulse Resp B/P B/P Pulse O2 O2 Flow FiO2 Mean Ox Delivery Rate 04/26 0940 97 04/26 0851 98.5 105 16 154/68 96 100 Room air PATIENT WEIGHT: Weight (lb): Weight (oz): Weight (kg): 90.909 Medications:Active Meds + DC'd Last 24 HrsCeftriaxone Sodium (ROCEPHIN) 1 GM Q24H IV (CAN) Sterile Water (STERILE WATER) 10 MLPravastatin Sodium (PRAVASTATIN SODIUM) 20 MG BEDTIME PO Vancomycin HCl (Vancomycin HCl) 1.25 GM Q12HR IV Sodium Chloride (NORMAL SALINE 250 ML) 250 MLZolpidem Tartrate (AMBIEN) 10 MG BEDTIME PO Insulin Human NPH (HumuLIN N) 15 UNIT BID AC SUBQ Meropenem (MERREM) 500 MG Q6H IV Sterile Water (STERILE WATER) 10 MLDiphtheria/Pertussis/Tetanus Vacc (ADACEL) 0.5 ML ONCE ONE IM (DC) Aspirin (ASPIRIN) 81 MG BID PO Clopidogrel Bisulfate (PLAVIX) 75 MG DAILY PO Metoprolol Tartrate (LOPRESSOR) 50 MG BID PO Pantoprazole (PROTONIX) 40 MG DAILY PO Magnesium Sulfate (MAGNESIUM SULFATE 2GM/50ML BAG) 50 ML Q1H PRN PRN IV Magnesium Sulfate/Dextrose (MAGNESIUM SULFATE 1GM/D5W 100ML) 100 ML ASDIR PRN IV Potassium Chloride (K-DUR) 20 MEQ ASDIR PRN PO Potassium Chloride (K-DUR) 40 MEQ ASDIR PRN PO Potassium Chloride (K-DUR) 40 MEQ ASDIR PRN PO Potassium Chloride (KCL 10 MEQ/100ML) 100 ML Q1H PRN PRN IV Potassium Chloride (KCL 10 MEQ/100ML) 100 ML Q1H PRN PRN IV Potassium Chloride (KCL 10 MEQ/100ML) 100 ML Q1H PRN PRN IV Potassium Chloride (KCL 20 MEQ/100 ML) 100 ML Q1H PRN PRN IV Potassium Chloride (KCL 20 MEQ/100 ML) 100 ML Q1H PRN PRN IV Potassium Chloride (KCL 20 MEQ/100 ML) 100 ML Q1H PRN PRN IV Potassium Phos/Sodium Phos (PHOS-NAK PACKET) 1 PKT ASDIR PRN PO (CKD) Potassium Phosphate (Potassium Phosphate) 15 MMOL ASDIR PRN IV Sodium Chloride (NORMAL SALINE 250 ML) 250 MLPotassium Phosphate (Potassium Phosphate) 30 MMOL ASDIR PRN IV Sodium Chloride (SODIUM CHLORIDE 0.9% 500 ML) 500 MLAcetaminophen (TYLENOL) 650 MG Q4H PRN PRN PO Acetaminophen (TYLENOL) 650 MG Q6H PRN PRN RECTAL Al Hydrox/Mg Hydrox/Simethicone (MAALOX PLUS) 30 ML Q4H PRN PRN PO Calcium Carbonate (TUMS) 1,000 MG DAILY PRN PRN PO Clonidine HCl (CATAPRES) 0.1 MG Q6H PRN PRN PO Dextrose/Water (DEXTROSE 50%-WATER) 25 ML ASDIR PRN IV (CKD) Enoxaparin Sodium (LOVENOX) 40 MG Q24H SUBQ Glucagon (GLUCAGON) 1 MG ASDIR PRN IM Glucose Polymer (GLUTOSE) 15 GM ASDIR PRN PO Guaifenesin/Dextromethorphan (ROBITUSSIN-DM) 10 ML QID PRN PRN PO Hydrocodone Bitart/Acetaminophen (NORCO 5/325 TABLET) 1 TAB Q4H PRN PRN PO Hydrocodone Bitart/Acetaminophen (NORCO 10/325 TABLET) 1 TAB Q4H PRN PRN PO Insulin Human Lispro (HUMALOG) See Admin Criteria ASDIR PRN SUBQ Miscellaneous Information (VANCOMYCIN PHARMACY TO DOSE) 1 EACH ASDIR IV (CKD) Ondansetron HCl (ZOFRAN) 4 MG Q4H PRN PRN IV Senna (SENOKOT) 1 TAB DAILY PRN PRN PO (CKD) Simethicone (MYLICON) 160 MG Q6H PRN PRN PO Trazodone HCl (DESYREL) 50 MG BEDTIME PRN PRN PO Insulin Human Regular (HumuLIN R) 20 UNIT X1ED STA SUBQ (DC) Morphine Sulfate (MORPHINE SULFATE) 4 MG X1ED STA IV (DC) Ondansetron HCl (ZOFRAN) 4 MG X1ED STA IV (DC) Vancomycin HCl (VANCOMYCIN 1,000) 2,000 MG ONCE ONE IV (DC) Sodium Chloride (NS 0.9%) 500 MLMiscellaneous Information (VANCOMYCIN PHARMACY TO DOSE) 1 EACH ASDIR IV (CKD) Sodium Chloride (NORMAL SALINE 250 ML) 250 ML X1ED ONE IV (DC) Ceftriaxone Sodium (ROCEPHIN) 1 GM X1ED STA IV (DC) Sterile Water (STERILE WATER) 10 ML Physical ExamGeneral appearance: chronically ill appearing, alert, awake, oriented, no acute distress, pleasant, conversationalHead/Eyes: EOMI, normocephalicENT: moist mucosal membranes, normal noseNeck: no bruit/NL carotids, no JVDCardiovascular: CV assessment: regular rate and rhythm, normal heart sounds, no gallopRespiratory: clear to auscultation, no distressAbdomen: soft, non-tender, no distentionGenitourinary: no flank pain, no urinary catheterUpper extremity: UE assessment: no cyanosis, 2+ radial pulseLower extremity: LE assessment: normal temperature, no edemaMusculoskeletal: L TMA, foul-smelling wound with purulenceNeuro/RN MATERNITY: alert, oriented X 3, normal speechSkin: dry, intact, normal temperaturePsychiatry: normal affect, normal judgment/insight, normal mood ResultsFindings/Data:Laboratory Tests 04/26 04/26 04/26 04/26 0948 0929 0929 0929Chemistry Sodium (133 - 144 mmol/L) 128.0 L Potassium (3.5 - 5.1 mmol/L) 5.0 Chloride (95 - 105 mmol/L) 96 Carbon Dioxide (21 - 32 mmol/L) 27 Anion Gap (4.0 - 15.0 GAP calc) 5.0 BUN (7 - 18 MG/DL) 28 H Creatinine (0.55 - 1.30 MG/DL) 0.99 Glomerular Filtr Rate (>60 estGFR) 89 Glucose (70 - 110 MG/DL) 540 *H Hemoglobin A1c (4.5 - 5.6 % IS-A1C) 10.1 H Lactic Acid (0.4 - 2.0 mmol/L) 1.8 Calcium (8.5 - 10.1 MG/DL) 9.6 Total Bilirubin (0.00 - 1.00 MG/DL) 0.23 Direct Bilirubin (0.00 - 0.30 MG/DL) < 0.10 Indirect Bilirubin (0.2 - 1.3 MG/DL) CALC ALYSSA L AST (15 - 37 Unit/L) 24 ALT (12 - 78 Unit/L) 36 Total Alk Phosphatase (45 - 117 119 HUnit/L) Troponin I High Sens (0 - 45 ng/L) 9 Total Protein (6.4 - 8.2 G/DL) 8.4 H Albumin (3.4 - 5.0 G/DL) 3.0 L Specimen Appearance (1 NORMAL 1 NORMAL <2 MGIndex/DL) Specimen Hemolysis (1 NORMAL Index/DL) 3 SMALL 25-50 MG Laboratory Tests 04/26 0929 Hematology WBC (4.1 - 12.1 K/mm3) 7.5 RBC (3.8 - 5.5 M/mm3) 5.20 Hgb (10.6 - 15.8 G/DL) 14.4 Hct (31.8 - 47.4 %) 43.7 MCV (80.1 - 101.1 fL) 84.0 MCH (25.3 - 35.3 pg) 27.7 MCHC (32.7 - 35.1 G/DL) 33.0 RDW (12.2 - 16.4 %) 13.9 Plt Count (155 - 337 K/mm3) 262 MPV (7.6 - 10.4 fL) 10.2 Gran % (37.8 - 82.6 %) 65.8 Lymph % (Auto) (14.1 - 45.4 %) 21.0 Williams % (Auto) (2.5 - 11.7 %) 10.6 Eos % (Auto) (0.0 - 6.2 %) 1.5 Baso % (Auto) (0.0 - 2.6 %) 0.7 Gran # (2.0 - 13.7 k/mm3) 4.97 Lymph # (Auto) (0.6 - 3.8 K/mm3) 1.58 Williams # (Auto) (0.11 - 0.59 K/mm3) 0.80 H Eos # (Auto) (0.0 - 0.4 K/mm3) 0.11 Immature Gran % (0.0 - 2.0 %) 0.4 Nucleated RBC % (0.0 - 1.0 /100WBC%) 0.0 Nucleated RBCs # (0.00 - 0.05 K/mm3) 0.00 Radiology Data:Recent Impressions:RADIOLOGY - XR FOOT 3 + V LT 04/26 927 Report Impression - Status: SIGNED Entered: 04/26/2022 1010 IMPRESSION: No active disease. Left foot 3 views No prior studies for comparison purposes The patient is status post transmetatarsal amputation. There is mildcortical irregularity of the first and third amputated stumps. Softtissue swelling around the remaining mid foot. No gas in soft tissues. IMPRESSION: Status post transmetatarsal amputation with soft tissueswelling. Mild cortical irregularity involving the amputated stumps ofthe first and third metatarsals, age indeterminate. Activeosteomyelitis not excluded.Impression By: Suman Dick D.O.RADIOLOGY - XR CHEST 1 V 04/26 927 Report Impression - Status: SIGNED Entered: 04/26/2022 1010 IMPRESSION: No active disease. Left foot 3 views No prior studies for comparison purposes The patient is status post transmetatarsal amputation. There is mildcortical irregularity of the first and third amputated stumps. Softtissue swelling around the remaining mid foot. No gas in soft tissues. IMPRESSION: Status post transmetatarsal amputation with soft tissueswelling. Mild cortical irregularity involving the amputated stumps ofthe first and third metatarsals, age indeterminate. Activeosteomyelitis not excluded.Impression By: Suman Dick D.O. Results: labs reviewed, vital signs reviewed, EKG personally reviewed, rhythm personally rev'd, x-ray personally reviewed, current med profile rev'd Diagnosis, Assessment Plan Free Text DxA P NotesFree Text DxA P Notes:1. Pre-operative cardiac evaluation2. Gangrenous diabetic foot ulcer3. MVCAD s/p MT with multiple PCI's and then CABGx4, 20303. PAD s/p superficial femoral and infrapopliteal interventions 2 weeks ago at [facility]5. Uncontrolled T2DM with hyperglycemia6. HTN7. Prior TMA with ongoing wound issues, 2 years Patient is at increased risk for perioperative complications given his multiple comorbidities and uncontrolled diabetes. He has not been having any active ACS symptoms or acute heart failure symptoms. He has not needed revascularization since his CABG in 2016. Agree with checking 2D TTE for cardiac structure and function prior to surgery. Otherwise, continue beta-marcell at current dosing up to and on the day of procedure. Continue antibiotics per surgery. Thank youfor the consultation. Please call with any questions or concerns. at 2009 RPT #:[id number] OF REPORTQNGojpdvcivcks5843-77-22Z59:23:00B. [id number] for patient jtpnCABYRJOGNLPIXG9616-48-57B58:10:[address] [facility] 2022-04-26 13:51:00 [id number]/Ii0Vmb65dQrR2+X0wcc7s TgjJ /RBpWrVWWlbsxbVY7WWjiyh6GZJ6GC2u4314-69-42F8 3:51:774540-[address] [place], [place] [address] PATIENT NAME: BRIGHT SALAZAR ADMIT DATE: 04/26/22ACCOUNT NO: [id number] ROOM NO: B.405 AGE: 56 REPORT TYPE: HISTORY AND PHYSICAL SEX: M ADMITTING PHYSICIAN:Yung Loomis MD ATTENDING PHYSICIAN:Yuli Pink MD ADMISSION DATE: 04/26/2022 11:28:00 PRIMARY CARE PHYSICIAN: None. CHIEF COMPLAINT: Foot infection. HISTORY OF PRESENT ILLNESS: This is a 56-year-old pleasant gentleman withhistory of peripheral vascular disease, coronary artery disease, diabetes,stroke, CABG, presented to the ER due to worsening left foot pain and swelling.He states that this all started around 07/29/2020. He told that he had afrostbite injury in the left big toe. He had toe removal in 10/2021, and in05/2021, he had TMT amputation done and 2 months ago, he had transmetatarsalamputation. States that these were all done at [facility] and katherin recommended for 6 weeks of IV antibiotics and he finished it. He believesthat he might have finished it around 03/22/2022 and after he finishedantibiotics, he started noticing that his foot is becoming more red, swollen and started noticing some drainage. For this reason, he presented to our hospital and admitted for further evaluation and treatment. Denies having any chest pain, shortness of breath, abdominal pain, nausea, vomiting, diarrhea, or constipation. Denies any fever or chills. Reports of foul-smelling drainage from the foot. No other complaints. PAST MEDICAL HISTORY: Coronary artery disease, peripheral vascular disease,diabetes, dry gangrene, CABG x4 in 2016, history of stent placements. PAST SURGICAL HISTORY: Multiple foot surgeries. The last one istransmetatarsal amputation two months ago. SOCIAL HISTORY: Smokes one pack a day. States that he has been trying to cutdown and cut down to 1 pack a day, used to smoke more. Denies using alcohol ordrugs. Lives by himself. FAMILY HISTORY: Positive for cancer in mother and father. ALLERGIES: NO KNOWN DRUG ALLERGIES. HOME MEDICATIONS: As per medication reconciliation form, reviewed andreconciled. REVIEW OF SYSTEMS: A 12-point review of systems was done. Pertinent positivesare mentioned in the H and P rest is negative. PATIENT NAME: BRIGHT SALAZAR PHYSICAL EXAMINATION:VITAL SIGNS: Temperature 98.5, pulse 105, respiratory rate 16, blood ksvylzgx416/68, saturation 97% on room air.GENERAL APPEARANCE: He is awake, alert, oriented, not in acute distress, lyingcomfortably in the bed.HEENT: Atraumatic, normocephalic. Oral mucosa moist.NECK: Supple, no JVD.CARDIOVASCULAR: S1, S2 present, regular.LUNGS: Clear to auscultation.ABDOMEN: Soft, nontender, nondistended.SKIN: No rashes.NEUROLOGIC: No focal deficits.EXTREMITIES: Left foot is in dressing. The patient has pictures from [facility], evaluated and noted. LABORATORY DATA: Sodium 128. Glucose 540, potassium 5.0, chloride 96,bicarbonate 27, BUN 28, creatinine 0.9. Troponin 9. Lactate 1.8. WBC 7.5,hemoglobin 14.4, hematocrit 43.7, platelets 262. Hemoglobin A1c was orderedearlier, is 10.1. X-ray of foot is done, shows status post metatarsalamputation with soft tissue swelling. ASSESSMENT AND PLAN: This is a 56-year-old male with:1. Diabetic foot infection. The patient had multiple procedures and alsofinished 6 weeks of IV antibiotics as per ID prior to hospitalization.Currently, has a foul-smelling drainage, will need to be cultured. We willconsult Infectious Disease. We will start vancomycin and Rocephin. Orthopedicswas consulted from the ER, so I will await their recommendations and we willalso obtain arterial Dopplers and monitor him closely.2. Diabetes is uncontrolled. Hemoglobin A1c is 10.1. The patient reportsbeing on NPH 15 twice a day. We will resume, also will start sliding scaleinsulin and monitor the blood sugars.3. History of coronary artery disease status post coronary artery bypass graftx4 in 2016. Continue aspirin, Plavix, statin and beta marcell. No acute issuesat this time.4. History of peripheral vascular disease. Continue aspirin, Plavix andstatin.5. Deep venous thrombosis prophylaxis, will be done with Lovenox.6. Hyponatremia. This is most likely pseudohyponatremia from elevated bloodsugars. We will monitor the blood sugars.7. Plan discussed with the patient. All of his questions answered to hisunderstanding. Dictated By: Yuli Pink MD Date Dictated: 04/26/2022 13:51:42Date Transcribed: 04/26/2022 19:02:20HALEY/JOSH/ZENY/Zuleyma #: [id number] ID: [id number] and Edited by Yuli Pink MD On 05/04/22 6:31:00 AM PATIENT NAME: BRIGHT SALAZAR at 0633 PATIENT NAME: BRIGHT SALAZAR and physical bnwwwcblljp6336-21-06N88:02:00B.[id number]- 0200AVAvailable for patient odidVQSNPNGFXFMCAK1660-25-13U24:33:[address] [facility] 2022-04-26 13:51:00 [id number]/eyB+MDgz2RAWozs1B gc9a X63Ur5DwlKSCdShNf6phGQM3zkGwSAFb5175-21-32E5 3:51:00 [facility] ([facility])DT History PhysicalREPORT#:[id number] REPORT STATUS: SignedDATE:04/26/22 TIME: 1351 PATIENT: BRIGHT SALAZAR UNIT #: [id number]#: [id number] [address] AGE: 56 SEX: M ATTEND: Yung Loomis [facility] AUTHOR: Yuli Pink MD * ALL edits or amendments must be made on the electronic/computer document * History PhysicalHistory PhysicalHP dictated at 1351 RPT #:[id number] OF REPORTHPHistory and physical oiuraqaqjgu6297-42-85K24:51:00B.[id number] -0455AVAvailable for patient ffwzFVMJXLMLHXIIDQ3710-31-89M68:52:[address] [facility] 2022-04-26 12:07:00 [id number]/tWwiFb6wXmVATA1l9Jgln7r+sZ AW48 LQ9JoIPDdDvH442Y//r1oUNwngYX2kNN9178-51-51U6 2:07:00 [facility] ([facility])Pharmacy Prog.Note-VancomycinREPORT#:[id number] REPORT STATUS: SignedDATE:04/26/22 TIME: 1207 PATIENT: BRIGHT SALAZAR UNIT #: [id number]#: [id number] [facility]: [birth year] AGE: 56 SEX: M ATTEND: Yung Loomis [facility] AUTHOR: Miguel Lobato [facility] * ALL edits or amendments must be made on the electronic/computer document * Vancomycin Vancomycin Medication TherapyGoal: 03-28Indication for treatment:SSTILabs:Laboratory Test : 04/26 929 Chemistry BUN (7 - 18 MG/DL) 28 H Creatinine (0.55 - 1.30 MG/DL) 0.99 Hematology WBC (4.1 - 12.1 K/mm3) 7.5 Microbiology:04/26 929 BLOOD: Blood Culture - RECD106/26 928 BLOOD: Blood Culture - RECD106/26 928 BLOOD: Blood Culture - RECD106/26 928 BLOOD: Blood Culture - RECD Treatment plan: initiation of therapyRegimen:DX=SSTI END DATE 05/03 (7 DAYS) 04/26 VANC 2 G IV X1 then Vanc 1.25g q12h106/28 VANC TROUGH @0800 04/26 SCR=0.99 at 1209 RPT #:[id number] OF REPORTPRProgress ixfa4054-06-58U98:07:00B.[id number] Available for patient vapqVTPORABUHVIPKD3618-84-07X12:16:25 [facility] 2022-04-26 10:55:00 [id number]/pqFsZMZB//JfpGNn+ 4G4g 7H86H9zDUP7YMdyZIBWH4nB9KUzQ1vh/2274-70-76B5 0:55:00 [facility] ([facility])EMERGENCY PROVIDER REPORTREPORT#:[id number] REPORT STATUS: SignedDATE:04/26/22 TIME: 1055 PATIENT: BRIGHT SALAZAR UNIT #: [id number]#: [id number] ROOM[facility]BED: [facility]WAGE: 56 SEX: M PCP PHYS: No Primary or Family PhysicianSERVICE AUTHOR: Luis Enrique Mishra MD * ALL edits or amendments must be made on the electronic/computer document * HPI-General Illness GeneralInitial Greet Date/Time 04/26/22850 PresentationChief Complaint __ (L foot infection)Hx Obtained From PatientSudden in Onset? NoOnset Occurred Weeks agoSymptom Duration Since onsetProgression since Onset Gradually worseningCaused by No trauma by historyLocation Foot LQuality DullRadiationDoes not radiate. Severity: Current ModerateAssociated withDenies: Cough, Fever. Associated Other Pt denies other symptomsExacerbated by NothingRelieved by Nothing Free Text HPI NotesFree Text HPI NotesPatient is a 56-year-old male with a history of diabetes who presents complaintsof left foot pain and swelling. He had a transmetatarsal amputation last month for dry gangrene. He says this got infected afterwards and he was on PICC line antibiotics for 6 weeks. Says it as soon as he stopped the PICC line antibiotics his foot became red and swollen. This been going on for several weeks and is now getting worse. No fever or chills. Review of Systems ROS StatementsAll systems rev neg except as marked. Past Medical History - AdultStated Complaint INFECTION AT LEFT FOOT AMPUTATION SITEAllergiesCoded Allergies:No Known Allergies (07/24/12) Home MedicationsReported MedicationsMETOPROLOL TARTRATE (LOPRESSOR) 50 MG PO BID CLOPIDOGREL (PLAVIX) 75 MG PO DAILY ASPIRIN 81 MG PO BID ZOLPIDEM (AMBIEN) 10 MG PO BEDTIME HYDROcodone/APAP (HYDROcodone/APAP 10/325) 1 TAB PO Q8HPRN HYDROcodone/APAP (HYDROcodone/APAP 10/325) 1 TAB PO Q8HPRN #20 TAB GABAPENTIN (NEURONTIN) 300 MG PO BID Discontinued Reported MedicationsmetFORMIN (GLUCOPHAGE) 1,000 MG PO BID PANTOPRAZOLE DR (PROTONIX) 40 MG PO DAILY PRAVASTATIN (PRAVACHOL) 20 MG PO BEDTIME Calculated Suicide Risk (nurs) No riskSmoking status for patients 13 years old or older: Current every day smokerDate last smoked: 04/26/22 Physical Exam Vital SignsVital SignsFirst Documented: Result Date Time Pulse Ox 100 04/26 851 B/P 154/68 04/26 851 B/P Mean 96 04/26 851 O2 Delivery Room air 04/26 851 Temp 98.5 04/26 851 Pulse 105 04/26 851 Resp 16 04/26 851 Last Documented: Result Date Time Pulse Ox 97 04/26 0940 B/P 154/68 04/26 851 B/P Mean 96 04/26 851 O2 Delivery Room air 04/26 851 Temp 98.5 04/26 851 Pulse 105 04/26 851 Resp 16 04/26 851 Review of Vital Signs Reviewed Basic Physical ExamBasic PE GEN: Well appearing/NAD, HEAD: Atraumatic/NC, EYES: PERRL, conj clear, ENT: Membranes moist, NECK: Supple, RESP: No resp distress, ABD: Soft/non-tender, SKIN: No rashes, warm/dry, NEURO: alert oriented, NEURO: gross movement NL, PSYCH: NL thought content Physical ExamCardiovascular Cardiovascular Regular rhythm (tachycardia)MS Lower Extrem Lower Ext/Pelvis/MS L foot transmetatarsal amp, NVI, cellulitis, no crepitus Interpretation Diagnostics Lab Results InterpretationResultsLaboratory Tests 04/26/22 0929:[Embedded Image Not Available]Laboratory Tests: 04/26 04/26 04/26 04/26 0948 0929 0929 0929Chemistry Sodium (133 - 144 mmol/L) 128.0 L Potassium (3.5 - 5.1 mmol/L) 5.0 Chloride (95 - 105 mmol/L) 96 Carbon Dioxide (21 - 32 mmol/L) 27 Anion Gap (4.0 - 15.0 GAP calc) 5.0 BUN (7 - 18 MG/DL) 28 H Creatinine (0.55 - 1.30 MG/DL) 0.99 Glomerular Filtr Rate (>60 estGFR) 89 Glucose (70 - 110 MG/DL) 540 *H Hemoglobin A1c (4.5 - 5.6 % IS-A1C) 10.1 H Lactic Acid (0.4 - 2.0 mmol/L) 1.8 Calcium (8.5 - 10.1 MG/DL) 9.6 Total Bilirubin (0.00 - 1.00 MG/DL) 0.23 Direct Bilirubin (0.00 - 0.30 MG/DL) < 0.10 Indirect Bilirubin (0.2 - 1.3 MG/DL) CALC ALYSSA L AST (15 - 37 Unit/L) 24 ALT (12 - 78 Unit/L) 36 Total Alk Phosphatase (45 - 117 119 HUnit/L) Troponin I High Sens (0 - 45 ng/L) 9 Total Protein (6.4 - 8.2 G/DL) 8.4 H Albumin (3.4 - 5.0 G/DL) 3.0 L Specimen Appearance (1 NORMAL 1 NORMAL <2 MGIndex/DL) Specimen Hemolysis (1 NORMAL Index/DL) 3 SMALL 25-50 [facility] WBC (4.1 - 12.1 K/mm3) 7.5 RBC (3.8 - 5.5 M/mm3) 5.20 Hgb (10.6 - 15.8 G/DL) 14.4 Hct (31.8 - 47.4 %) 43.7 MCV (80.1 - 101.1 fL) 84.0 MCH (25.3 - 35.3 pg) 27.7 MCHC (32.7 - 35.1 G/DL) 33.0 RDW (12.2 - 16.4 %) 13.9 Plt Count (155 - 337 K/mm3) 262 MPV (7.6 - 10.4 fL) 10.2 Gran % (37.8 - 82.6 %) 65.8 Lymph % (Auto) (14.1 - 45.4 %) 21.0 Williams % (Auto) (2.5 - 11.7 %) 10.6 Eos % (Auto) (0.0 - 6.2 %) 1.5 Baso % (Auto) (0.0 - 2.6 %) 0.7 Gran # (2.0 - 13.7 k/mm3) 4.97 Lymph # (Auto) (0.6 - 3.8 K/mm3) 1.58 Williams # (Auto) (0.11 - 0.59 K/mm3) 0.80 H Eos # (Auto) (0.0 - 0.4 K/mm3) 0.11 Immature Gran % (0.0 - 2.0 %) 0.4 Nucleated RBC % (0.0 - 1.0 /100WBC%) 0.0 Nucleated RBCs # (0.00 - 0.05 K/mm3) 0.00 Microbiology: Date/Time Procedure - Status Source Growth 04/26 929 Blood Culture - RES BLOOD 04/26 929 Blood Culture - RES BLOOD 04/26 929 Blood Culture - RES BLOOD 04/26 929 Blood Culture - RES BLOOD Recent Impressions:RADIOLOGY - XR FOOT 3 + V LT 04/26 927 Report Impression - Status: SIGNED Entered: 04/26/2022 1010 IMPRESSION: No active disease. Left foot 3 views No prior studies for comparison purposes The patient is status post transmetatarsal amputation. There is mildcortical irregularity of the first and third amputated stumps. Softtissue swelling around the remaining mid foot. No gas in soft tissues. IMPRESSION: Status post transmetatarsal amputation with soft tissueswelling. Mild cortical irregularity involving the amputated stumps ofthe first and third metatarsals, age indeterminate. Activeosteomyelitis not excluded.Impression By: Suman Dick D.O.RADIOLOGY - XR CHEST 1 V 04/26 927 Report Impression - Status: SIGNED Entered: 04/26/2022 1010 IMPRESSION: No active disease. Left foot 3 views No prior studies for comparison purposes The patient is status post transmetatarsal amputation. There is mildcortical irregularity of the first and third amputated stumps. Softtissue swelling around the remaining mid foot. No gas in soft tissues. IMPRESSION: Status post transmetatarsal amputation with soft tissueswelling. Mild cortical irregularity involving the amputated stumps ofthe first and third metatarsals, age indeterminate. Activeosteomyelitis not excluded.Impression By: Suman Dick D.O. Lab Imaging StatementLaboratory radiographic studies reviewed and considered in the medical decision-making. Re-Evaluation MDM Free Text MDM NotesFree Text MDM NotesSepsis focused reeval performed at 1124. Consult accepted by , admission accepted by . Patient updated on results and plan of care. ED CourseMedication(s) OrderedMedication(s) Ordered:08:00 Sig/Ekta Start time Last Medication Dose Route Stop Time Status Admin Miscellaneous 1 EACH ASDIR 04/26 0900 DC Information IV 04/27 0859 Anti-Infective Agents Sig/Ekta Start time Last Medication Dose Route Stop Time Status Admin Vancomycin HCl 2,000 MG ONCE ONE 04/26 0915 DC 04/26 Sodium Chloride 500 ML IV 04/26 1114 1021 Central Nervous System Agents Sig/Ekta Start time Last Medication Dose Route Stop Time Status Admin Morphine Sulfate 4 MG X1ED STA 04/26 0924 DC 04/26 IV 04/26 0925 1006 Electrolytic, Caloric, And Aniket Sig/Ekta Start time Last Medication Dose Route Stop Time Status Admin Sodium Chloride 250 ML X1ED ONE 04/26 0900 DC 04/26 IV 04/26 0959 1004 Gastrointestinal Drugs Sig/Ekta Start time Last Medication Dose Route Stop Time Status Admin Ondansetron HCl 4 MG X1ED STA 04/26 0924 DC 04/26 IV 04/26 0925 1005 Hormones And Synthetic Substit Sig/Ekta Start time Last Medication Dose Route Stop Time Status Admin Insulin Human Regular 20 UNIT X1ED STA 04/26 1132 DC 04/26 SUBQ 04/26 1133 1225 Patient Discharge Departure Vital Signs/ConditionVital SignsFirst Documented: Result Date Time Pulse Ox 100 04/26 0851 B/P 154/68 04/26 0851 B/P Mean 96 04/26 0851 O2 Delivery Room air 04/26 0851 Temp 98.5 04/26 0851 Pulse 105 04/26 0851 Resp 16 04/26 0851 Last Documented: Result Date Time Pulse Ox 97 04/26 0940 B/P 154/68 04/26 0851 B/P Mean 96 04/26 0851 O2 Delivery Room air 04/26 0851 Temp 98.5 04/26 0851 Pulse 105 04/26 0851 Resp 16 04/26 0851 All vital signs available at the time of this entry have been reviewed. Clinical ImpressionClinical ImpressionPrimary Impression: DiabetesSecondary Impressions: Diabetic foot infection, Hyperglycemia Disposition DecisionAdmit Admit Physician Name Yung Loomis MD )( Admission Accepts Yes )( Accepted Time 1125 )( Accepted Date 04/26/22 Critical CareTime Spent (minutes): 30Services Performed Patient management by me, Time spent at bedside, Reviewing test results, Reviewing imaging, Discussing patient care, Documentation in record, Time with fam/surrogateSeparately billable procedures excluded from time. CC Note 1Total critical care time [30] minutes. Total critical care time documented does not include time spent on separately billed procedures or the services of residents, students, nurses or physician assistants. I personally saw and examined the patient. I have reviewed all diagnostic interpretations and treatment plans as written. I was present for the wyatt portions of any proceduresperformed and the inclusive time noted in any critical care statement. Critical care time includes patient management by me, time spent at the patients bedside,time to review lab and imaging results, discussing patient care, documentation in the medical record, and time spent with the family or caregiver. at 0922RPT #:[id number] OF [facility] [id number] AVAvailable for patient [id number]:23:[address] [facility] 2020-04-19 15:15:00 [id number]: 15:00Discharge Instructions 2Discharge DiagnosissyncopeImportant InformationConsult your physician or return to the Emergency Department immediately if worse, if not better as expected, or if any problems arise.Follow Up CareYesImportant InformationPlease understand that you have received care only on an emergency basis. If your condition does not improve, you should call your personal physician for follow-up care. If you do not have a physician, you may call the referred physician listed.If you have questions about your care or these discharge instructions, you may call the Emergency Department. Please take your discharge paperwork with you to any follow-up appointments.Follow Up CarePatient To ScheduleFollow-Up With:Primary Care PhysicianFollow-Up Notes:follow up with PCPActivity LevelAs tolerated, unrestrictedDietRegularPatient TeachingPatient education providedActivitiesDietaryDischarge InstructionsDischarge InstructionsDischarge Instructions 2020-04-19 (Encounter: [id number] for patient careSTLMLCHI St Lukes [facility] ([facility])[id number]:03:45 [facility] ([facility]/)
[2023-11-26 17:07] LABS: PT Prothrombin Time 12.6 SECONDS (9.5-12.5); Protime INR 1.15
[2023-11-26 17:10] LABS: Absolute Basophils 0.1 K/uL (0-0.5); Absolute Eosinophils 0.2 K/uL (0-0.5); Absolute Lymphocytes (CBC) 1.3 K/uL (0.7-4.9); Absolute Monocytes 0.8 K/uL (0.1-1.3); Absolute Neutrophil 9.4 K/uL (1.8-8.0); Basophils % 0.9 % (0-1.3); Hematocrit 45.9 % (39.6-49.0); Hemoglobin 15.7 g/dL (13.6-17.9); Lymphocytes % 10.7 % (15.3-44.8); MCH 28.9 pg (27.0-35.0); MCHC 34.2 g/dL (32.0-36.0); MCV 84.6 fL (80-100); MPV 7.6 fL (7.6-11.3); Monocytes % 6.7 % (3.3-12.3); Neutrophils % 79.7 % (41.7-73.7); Nucleated Red Blood Cells % 0.1 % (0-0); Platelets 251 thou/uL (152-406); RBC Red Blood Cell Count 5.43 M/uL (4.33-5.43); Red Cell Distribution Width 13.7 % (12.1-15.2)
[2023-11-26 17:44] LABS: Albumin 3.4 g/dL (3.4-5.0); Albumin/Globulin Ratio 0.6 (1.1-1.8); Anion Gap 6.7 mEq/L (5.0-15.0); Bilirubin Direct 0.2 mg/dL (0-0.2); Bilirubin Indirect, Calculated 0.3 mg/dL (0.2-0.8); Bilirubin Total 0.5 mg/dL (0.2-1.0); Globulin 5.3 g/dL (2.3-3.5); Magnesium 1.5 mg/dL (1.6-2.4); Potassium 3.7 mEq/L (3.5-5.1); Protein, Total 8.7 g/dL (6.4-8.2); Troponin High Sensitivity 9.4 pg/mL (<58.9)
--- NOTE | 2023-11-26 18:33 | ER ---
Nurse's Notes [facility] Name: Matthew Salazar Age: 58 yrs Sex: Male : 1965 Arrival Date: 11/26/2023 Time: 16:28 Bed 15 Private MD: Diagnosis: Chest pain, unspecified Presentation: 11/25 16:30 Chief complaint: EMS states: toned out for chest pain, speech that isnt normal since me1 last night and left leg pain. Patient has a BKA amputation that started as frostbite then got infected. Patient reports there is a non healing wound to that stump. Coronavirus screen: Vaccine status: Patient reports receiving the 2nd dose of the covid vaccine. Ebola Screen: No symptoms or risks identified at this time. Initial Sepsis Screen: Does the patient meet any 2 criteria? No. Patient's initial sepsis screen is negative. Does the patient have a suspected source of infection? No. Patient's initial sepsis screen is negative. Risk Assessment: Do you want to hurt yourself or someone else? Patient reports no desire to harm self or others. Onset of symptoms was November 25, 2023. Care prior to arrival: Medication(s) given: ASA, 81 mg, x 4, Nitroglycerin, 0.4 mg SL x 1, zofran 4 mg, IV initiated. 20 GA, in the right wrist. 16:30 Method Of Arrival: EMS: [facility] 16:30 Acuity: QASIM 2 me1 Triage Assessment: 16:33 General: Appears uncomfortable, well developed, well nourished, Behavior is me1 cooperative, appropriate for age, anxious, Reports CP, midsternal, 10/10. Denies SOB. States he has had some intermittent confusion and changes to his speech since yesterday. Non healing wound to amputation site on Left lower leg. Pain: Complains of pain in chest and left leg Pain does not radiate. Pain currently is 10 out of 10 on a pain scale. Quality of pain is described as heavy, pressure. EENT: No signs and/or symptoms were reported regarding the EENT system. Neuro: Level of Consciousness is awake, alert, obeys commands, Oriented to person, place, time, situation, Appropriate for age. Cardiovascular: Patient's skin is warm and dry. Cardiovascular: Reports chest pain. Respiratory: Airway is patent Respiratory effort is even, unlabored, Respiratory pattern is regular, symmetrical. GI: No signs and/or symptoms were reported involving the gastrointestinal system. : No signs and/or symptoms were reported regarding the genitourinary system. Derm: Wound noted lateral aspect of left calf. Musculoskeletal: Amputation of non healing wound. Historical: - Allergies: 16:33 No Known Allergies; me1 - PMHx: 16:33 Myocardial infarction; Hypertensive disorder; Diabetes mellitus; Hypercholesterolemia; me1 - PSHx: 16:33 Coronary artery bypass graft; Coronary Angioplasty; left BKA; me1 - Immunization history:: Adult Immunizations up to date. - Infectious Disease History:: Denies. - Social history:: Smoking status: Reported history of juuling and/or vaping. Screenin:39 [facility] ED Fall Risk Assessment (Adult) History of falling in the last 3 months, me1 including since admission No falls in past 3 months (0 pts) Confusion or Disorientation No (0 pts) Intoxicated or Sedated No (0 pts) Impaired Gait No (0 pts) Mobility Assist Device Used No (0 pt) Altered Elimination No (0 pt) Score/Fall Risk Level 0 - 2 = Low Risk Maintained a safe environment, Provided non-skid footwear, Hourly rounding (assess needs \T\ fall precautionary measures) done. Abuse screen: Denies threats or abuse. Nutritional screening: No deficits noted. Tuberculosis screening: No symptoms or risk factors identified. Assessment: 16:39 General: See triage assesment. . me1 18:22 Pain: Pain began suddenly. me1 Vital Signs: 16:30 BP 162 / 90; Pulse 87; Resp 17; Temp 97.5; Pulse Ox 99% ; Weight 93.44 kg; Height 6 ft. me1 0 in. ; Pain 10/10; 17:00 BP 155 / 79; Pulse 81; Resp 16; Pulse Ox 97% on R/A; me1 18:00 BP 134 / 78; Pulse 78; Resp 16; Pulse Ox 97% on R/A; me1 19:00 BP 156 / 88; Pulse 79; Resp 25; Pulse Ox 97% on R/A; me1 20:00 BP 138 / 79; Pulse 77; Resp 24; Pulse Ox 99% ; me1 21:00 BP 148 / 82; Pulse 77; Resp 17; Pulse Ox 97% on R/A; me1 16:30 Body Mass Index 27.94 (93.44 kg, 182.88 cm) me1 16:30 Pain Scale: Adult me1 ED Course: 16:29 Patient arrived in ED. bp 16:30 Aurora Dent, RN is Primary Nurse. me1 16:30 Lavon Ji MD is Attending Physician. sp3 16:33 Triage completed. me1 16:33 Arm band placed on Patient placed in an exam room. me1 16:39 Patient has correct armband on for positive identification. Bed in low position. Call me1 light in reach. Side rails up X2. Provided Education on: POC. Verbalized understanding. . Client placed on continuous cardiac and pulse oximetry monitoring. NIBP monitoring applied. property assessment monitor on. Pulse ox on. NIBP on. 16:39 No provider procedures requiring assistance completed. Maintain EMS IV. Dressing me1 intact. Good blood return noted. Site clean \T\ dry. Gauge \T\ site: 20g RAC. O2 via Room air. 16:57 Initial lab(s) drawn, by me, sent to lab. EKG done, by ED staff, reviewed by Lavon Ji MD. Inserted saline lock: 22 gauge in left antecubital area, using aseptic technique. Blood collected. 17:16 XRAY Chest (1 view) In Process Unspecified. EDMS 18:32 Valeriano Roberts MD is Hospitalizing Provider. sp3 19:42 CT Head Brain wo Cont In Process Unspecified. EDMS 20:21 Patient admitted, IV remains in place. me1 Administered Medications: No medications were administered Medication: 16:39 VIS not applicable for this client. me1 Outcome: 18:33 Decision to Hospitalize by Provider. sp3 20:19 Admitted to Tele accompanied by tech, via stretcher, room 405, with chart, Report me1 called to faxed report, receipt confirmed by DYLAN Willis 20:19 Condition: stable 20:19 Instructed on the need for admit, 21:10 Patient left the ED. me1 Signatures: Dispatcher [employer] EDMS Moises Milan RN RN bp Nkechi Flores RN RN ap3 Lavon Ji MD MD sp3 Aurora Dent, DYLAN RN me1 Corrections: (The following items were deleted from the chart) 20:29 19:00 BP 138 / 79; Pulse 77bpm; Resp 24bpm; Pulse Ox 99%; me1 me1
--- NOTE | 2023-11-26 18:33 | EDPHYS ---
Physician Documentation [facility] Name: Matthew Salazar Age: 58 yrs Sex: Male : 1965 Arrival Date: 11/26/2023 Time: 16:28 Bed 15 Private MD: ED Physician Lavon Ji HPI: 11/25 16:31 This 58 yrs old Male presents to ER via Unassigned with complaints of Chest Pain. sp3 16:31 58-year-old male with a history of CVA, coronary artery disease status post CABG, sp3 hypertension, diabetes, left AKA secondary to frostbite currently undergoing chronic wound care now presents to the ED via EMS for chief complaint chest pain for 1 to 2 days substernal. Patient denies any back pain, shortness of breath, neck pain, jaw pain, left arm pain, epigastric pain, abdominal pain, vomiting, diarrhea, syncope, near syncope, focal neurological deficit, or any other signs or symptoms on ROS at this time. 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 Historical: - Allergies: 16:33 No Known Allergies; me1 - PMHx: 16:33 Myocardial infarction; Hypertensive disorder; Diabetes mellitus; Hypercholesterolemia; me1 - PSHx: 16:33 Coronary artery bypass graft; Coronary Angioplasty; left BKA; me1 - Immunization history:: Adult Immunizations up to date. - Infectious Disease History:: Denies. - Social history:: Smoking status: Reported history of juuling and/or vaping. ROS: 16:32 Constitutional: Negative for fever, chills, and weight loss, Eyes: Negative for injury, sp3 pain, redness, and discharge, ENT: Negative for injury, pain, and discharge, Neck: Negative for injury, pain, and swelling, Respiratory: Negative for shortness of breath, cough, wheezing, and pleuritic chest pain, Abdomen/GI: Negative for abdominal pain, nausea, vomiting, diarrhea, and constipation, Back: Negative for injury and pain, MS/Extremity: Negative for injury and deformity, Skin: Negative for injury, rash, and discoloration, Neuro: Negative for headache, weakness, numbness, tingling, and seizure, Psych: Negative for depression, anxiety, suicide ideation, homicidal ideation, and hallucinations, Allergy/Immunology: Negative for hives, rash, and allergies, Endocrine: Negative for neck swelling, polydipsia, polyuria, polyphagia, and marked weight changes, Hematologic/Lymphatic: Negative for swollen nodes, abnormal bleeding, and unusual bruising, 16:32 All other systems are negative, Exam: 16:32 Constitutional: This is a well developed, well nourished patient who is awake, alert, sp3 and in no acute distress. Head/Face: Normocephalic, atraumatic. Eyes: Pupils equal round and reactive to light, extra-ocular motions intact. Lids and lashes normal. Conjunctiva and sclera are non-icteric and not injected. Cornea within normal limits. Periorbital areas with no swelling, redness, or edema. Neck: Trachea midline, no thyromegaly or masses palpated, and no cervical lymphadenopathy. Supple, full range of motion without nuchal rigidity, or vertebral point tenderness. No Meningismus. Chest/axilla: Normal chest wall appearance and motion. Nontender with no deformity. No lesions are appreciated. Cardiovascular: Regular rate and rhythm with a normal S1 and S2. No gallops, murmurs, or rubs. Normal PMI, no JVD. No pulse deficits. Respiratory: Lungs have equal breath sounds bilaterally, clear to auscultation and percussion. No rales, rhonchi or wheezes noted. No increased work of breathing, no retractions or nasal flaring. Abdomen/GI: Soft, non-tender, with normal bowel sounds. No distension or tympany. No guarding or rebound. No evidence of tenderness throughout. Back: No spinal tenderness. No costovertebral tenderness. Full range of motion. Skin: Warm, dry with normal turgor. Normal color with no rashes, no lesions, and no evidence of cellulitis. MS/ Extremity: Pulses equal, no cyanosis. Neurovascular intact. Full, normal range of motion. Neuro: Awake and alert, GCS 15, oriented to person, place, time, and situation. Cranial nerves II-XII grossly intact. Motor strength 5/5 in all extremities. Sensory grossly intact. Cerebellar exam normal. Normal gait. Psych: Awake, alert, with orientation to person, place and time. Behavior, mood, and affect are within normal limits. 16:49 ECG was reviewed by the Attending Physician. EKG demonstrates normal sinus rhythm at 84 sp3 bpm with normal intervals, normal QRS, normal axis, nonspecific diffuse ST's ST changes without evidence of acute ischemia. Vital Signs: 16:30 BP 162 / 90; Pulse 87; Resp 17; Temp 97.5; Pulse Ox 99% ; Weight 93.44 kg; Height 6 ft. me1 0 in. ; Pain 10/10; 17:00 BP 155 / 79; Pulse 81; Resp 16; Pulse Ox 97% on R/A; me1 18:00 BP 134 / 78; Pulse 78; Resp 16; Pulse Ox 97% on R/A; me1 19:00 BP 156 / 88; Pulse 79; Resp 25; Pulse Ox 97% on R/A; me1 20:00 BP 138 / 79; Pulse 77; Resp 24; Pulse Ox 99% ; me1 21:00 BP 148 / 82; Pulse 77; Resp 17; Pulse Ox 97% on R/A; me1 16:30 Body Mass Index 27.94 (93.44 kg, 182.88 cm) me1 16:30 Pain Scale: Adult me1 MDM: 16:31 Patient medically screened. sp3 16:33 Data reviewed: vital signs, nurses notes, EMS record, old medical records, lab test sp3 result(s), EKG, radiologic studies. ED course: 58-year-old male with PMH above now with chest pain. Differential diagnosis includes acute coronary syndrome spectrum, chest wall pain, GI pathology, pleurisy, MSK pain, among others. I am not highly suspicious for pulmonary etiology including PE, pneumonia, aortic aneurysm or dissection, sepsis, shock or any other critical pathology at this time. Workup will include EKG, chest x-ray and laboratory values with probable 23-hour observation given his high heart score with troponin still pending.. 18:32 ED course: Pain improved. Vital signs normal. Initial troponin negative but given high sp3 heart score of intermediate range, we will place in 23-hour observation.. 11/25 16:30 Order name: Basic Metabolic Panel; Complete Time: 17:56 sp3 11/25 16:30 Order name: CBC with Diff; Complete Time: 17:56 sp3 11/25 16:30 Order name: LFT's; Complete Time: 17:56 sp3 11/25 16:30 Order name: Magnesium; Complete Time: 17:56 sp3 11/25 16:30 Order name: NT PRO-BNP; Complete Time: 17:56 sp3 11/25 16:30 Order name: PT-INR; Complete Time: 17:56 sp3 11/25 16:30 Order name: Troponin HS; Complete Time: 17:56 sp3 11/25 19:48 Order name: CBC with Automated Diff EDMS 11/25 19:48 Order name: CBC with Automated Diff EDMS 11/25 19:48 Order name: Comprehensive Metabolic Panel EDMS 11/25 19:48 Order name: Comprehensive Metabolic Panel EDMS 11/25 19:48 Order name: Troponin High Sensitivity EDMS 11/25 19:48 Order name: Troponin High Sensitivity EDMS 11/25 19:50 Order name: Thyroid Stimulating Hormone EDMS 11/25 19:50 Order name: Magnesium EDMS 11/25 19:50 Order name: Magnesium EDMS 11/25 19:50 Order name: Magnesium EDMS 11/25 19:50 Order name: Magnesium EDMS 11/25 16:30 Order name: XRAY Chest (1 view); Complete Time: 18:36 3 11/25 19:06 Order name: CT Head Brain wo Cont sp3 11/25 19:49 Order name: Brain With Cont EDMS 11/25 19:50 Order name: Carotid Artery Bilateral EDMS 11/25 19:48 Order name: CONS Physician Consult EDMS 11/25 19:48 Order name: CONS Physician Consult EDMS 11/25 19:50 Order name: Occupational Therapy Consult EDMS 11/25 19:50 Order name: Physical Therapy Consult MS 11/25 16:30 Order name: Cardiac monitoring; Complete Time: 16:47 3 11/25 16:30 Order name: EKG - Nurse/Tech; Complete Time: 16:47 sp3 11/25 16:30 Order name: IV Saline Lock; Complete Time: 16:41 sp3 11/25 16:30 Order name: Labs collected and sent; Complete Time: 16:41 sp3 11/25 16:30 Order name: O2 Per Protocol; Complete Time: 16:41 sp3 11/25 16:30 Order name: O2 Sat Monitoring; Complete Time: 16:41 sp3 Administered Medications: No medications were administered Disposition Summary: 11/26/23 18:33 Hospitalization Ordered Notes: Hospitalization Status: Observation sp3 Provider: [place], Ebima sp3 Location: Telemetry/MedSurg (observation) sp3 Condition: Stable sp3 Problem: an acute exacerbation sp3 Symptoms: have worsened sp3 Bed/Room Type: Standard sp3 Room Assignment: 405(11/26/23 19:49) Diagnosis - Chest pain, unspecified sp3 Forms: - Medication Reconciliation Form sp3 - SBAR form sp3 - Leadership Thank You Letter sp3 Signatures: Dispatcher [employer] EDMS Ashley Martinez RN RN Lavon Ji MD MD sp3 Aurora Dent RN RN me1 Corrections: (The following items were deleted from the chart) 16:31 16:31 BASIC METABOLIC PANEL+C.LAB.BRZ ordered. EDMS EDMS 16:31 16:31 CBC+H.LAB.BRZ ordered. EDMS EDMS 16:31 16:31 HEPATIC FUNCTION+C.LAB.BRZ ordered. EDMS EDMS 16:31 16:31 MAGNESIUM+C.LAB.BRZ ordered. EDMS EDMS 16:31 16:31 PROBNP+C.LAB.BRZ ordered. EDMS EDMS 16:31 16:31 PROTIME (+INR)+COAG.LAB.BRZ ordered. EDMS EDMS 16:31 16:31 Troponin High Sensitivity+C.LAB.BRZ ordered. EDMS EDMS 16:31 16:31 Chest Single View+RAD.RAD.BRZ ordered. EDMS EDMS 19:07 19:07 Head Brain Wo Cont+CT.RAD.BRZ ordered. EDMS EDMS 19:49 18:33 sp3 kl
--- NOTE | 2023-11-26 18:35 | RAD REPORT ---
EXAM DESCRIPTION: RADChest Single View11/26/2023 5:14 pm CLINICAL HISTORY: CHEST PAIN COMPARISON: Chest Pa And Lat (2 Views) dated 11/24/2023 TECHNIQUE: Portable AP view of the chest. FINDINGS: The lungs are clear. No pneumothorax or effusion. The cardiomediastinal contours are unch anged with sequelae of CABG. IMPRESSION: No acute cardiopulmonary process.
--- NOTE | 2023-11-26 19:33 | P.HP ---
Certification for Inpatient With expected LOS: <2 Midnights Patient will require the following post-hospital care: None Practitioner: I am a practitioner with admitting privileges, knowledge of patient current condition, hospital course, and medical plan of care. Services: Services provided to patient in accordance with Admission requirements found in Title 42 Section 412.3 of the Code of Federal Regulations Patient History Date of Service: 11/26/23 Reason for admission: chest pain History of Present Illness: 58-year-old male with past medical history of HTN/HLD/DM/chronic tobacco use currently vapes/carotid artery stenosis status post left carotid and arterectomy 1 year ago at [facility], history of CAD status post PCI with subsequent CABGunknown vessel 8 years ago with no subsequent PCI since then, PVD status post left BKA 4 years ago with chronic draining left stump wound, currently moved to this area and has established care with Dr. Domingo, Presented today because of substernal chest pain. Described the pain as chest pressure, nonradiating. At its worst at about 8-10 out of 10. States pain is subsided on arrival in the ED but stable 4 out of 10. Denies any palpitation cough shortness of breath or fever. Patient also states that she has new difficulty with speech since the last 2 days. Says symptoms started when he was drinking soup given to him by his mother. He is denies any weakness of any of the extremities. He states he has had 2 CVAs in the past with no residual weakness. His last CVA prompted his carotid endarterectomy. On arrival in the ED he was noted with normal sinus rhythm with no ST segment changes, vital signs were stable mildly elevated in the 170s to 180s systolic, WBC was mildly elevated at 1100. No change in differentials, BMP was unremarkable. proBNP elevated at 302. Troponin negative, magnesium low at 1.5 Patient has been admitted for chest pain as well as rule out possible CVA Allergies No Known Allergies Allergy (Verified 10/20/23 12:01) Home medications list reviewed: Yes - Past Medical/Surgical History Diabetic: Yes -: DMII -: heart stents x10 -: CVA x2 -: quaruple bypass -: LBKA -: LLL vascular -: cholcystectomy - Social History Smoking Status: Current some day smoker (Currently vapes) Counseled patient to stop smoking for: more than 10 minutes Smoking therapy provided: Yes Patient receptive to therapy: Yes Alcohol use: No Place of Residence: Home Review of Systems 10-point ROS is otherwise unremarkable Cardiovascular: Chest Pain Neurological: Change in Speech Physical Examination - Physical Exam General: Alert, In no apparent distress, Oriented x3 HEENT: Atraumatic, Normocephalic, PERRLA Neck: Supple, 2+ carotid pulse no bruit, JVD not distended Respiratory: Clear to auscultation bilaterally, Normal air movement Cardiovascular: Normal pulses, Regular rate/rhythm, Normal S1 S2 Capillary refill: <2 Seconds Gastrointestinal: Normal bowel sounds, Soft and benign, Non-distended, No ascites, No masses Musculoskeletal: Other (left BKA , left stump draining wound ) Integumentary: Diabetic ulcer (over stump) Neurological: Normal speech, Normal strength at 5/5 x4 extr, Normal tone, Cranial nerves 3-12 intact - Studies Laboratory Data (last 24 hrs) 11/26/23 11/26/23 11/26/23 16:55 16:55 16:55 WBC 11.70 H Hgb 15.7 Hct 45.9 Plt Count 251 PT 12.6 H INR 1.15 Sodium 134 L Potassium 3.7 BUN 12 Creatinine 0.96 Glucose 196 H Magnesium 1.5 L Total Bilirubin 0.5 AST 29 ALT 56 Alkaline Phosphatase 131 H Assessment and Plan - Problems (Diagnosis) (1) CVA (cerebral vascular accident) Current Visit: No Status: Acute (2) Diabetes mellitus Current Visit: No Status: Acute (3) History of quadruple bypass Current Visit: No Status: Acute (4) Hx of heart artery stent Current Visit: No Status: Acute (5) Non-healing surgical wound Current Visit: No Status: Acute (6) S/P BKA (below knee amputation) unilateral Current Visit: No Status: Acute - Plan Impression and plan #Chest painatypical, initial cardiac enzymes negative High heart score Do trial of sublingual nitro/Nitropatch Initiate aspirin and Plavix Will consult cardiology in a.m. if positive troponin Not currently following with field service poultry technician but will need cardiology as outpatient # Hypertensionunclear home meds, obtain IV hydralazine as needed # DMobtain home meds, plan to start insulin Insulin sliding scale with Accu-Cheks Lantus sc # Presumed CVAnew onset slurred speech since the last 2 days Outside window for tPA Will consult neurology Obtain head CT stat Will need MRI brain in a.m. # Chronic left BKA stump wound with drainage, continue wound care # Chronic tobacco usecurrently vapes, tobacco cessation advised Place nicotine patch # DVT prophylaxissubcutaneous of Advance directive possible home in 24 to 48 hours Discharge Plan: Home - Advance Directives Does patient have a Living Will: No Does patient have a Durable POA for Healthcare: No
[2023-11-26] MEDS ORDERED: ONDANSETRON 4 MG/2 ML VIAL IV PRN (19:40)
[2023-11-26] MEDS ORDERED: ACETAMINOPHEN 500 MG TAB PO PRN (19:40)
[2023-11-26] MEDS ORDERED: ALBUTEROL 2.5 MG/3 ML NEB SOL NEB PRN (19:40)
[2023-11-26] MEDS ORDERED: LORAZEPAM 0.5 MG TABLET PO PRN ×2 (19:44→20:22)
[2023-11-26] MEDS ORDERED: HYDRALAZINE HCL 20 MG/ML VIAL IV PRN (19:44)
--- NOTE | 2023-11-26 20:20 | RAD REPORT ---
EXAM DESCRIPTION: CT - Head Brain Wo Cont - 11/26/2023 7:40 pm CLINICAL HISTORY: CONFUSED COMPARISON: No comparisons TECHNIQUE: Noncontrast head CT images were obtained without IV contrast. Multiplanar reformats were generated and reviewed. All CT scans are performed using dose optimization technique as appropriate and may include automated exposure control or mA/KV adjustment according to patient size. FINDINGS: No intracranial hemorrhage, mass, or edema. Midline structures are unremarkable. Normal ventricular caliber for age. Encephalomalacia centered on the right parietal lobe, with ex vacuo dilation of the right ventricular trigone. De [place]-white matter differentiation elsewhere is preserved, without evidence of acute infarct . No abnormal extra-axial fluid collections. Mastoid air cells and visualized portions of the paranasal sinuses are clear. No acute bony findings. IMPRESSION: No evidence of an acute intracranial process. Encephalomalacia centered on the right parietal lobe,, suggesting sequelae of remote ischemia.
[2023-11-26 20:33] LABS: Magnesium 1.6 mg/dL (1.6-2.4); Thyroid Stimulating Hormone 1.96 uIU/mL (0.358-3.740)
[2023-11-26] MEDS: INSULIN GLARGINE 100 UNIT/ML SQ SCH (21:48)
[2023-11-26] MEDS: CLOPIDOGREL 75 MG TABLET PO SCH (21:49)
[2023-11-26] MEDS: NITROGLYCERIN 0.2 MG/HR (5 MG) PATCH TD SCH (21:49)
[2023-11-26] MEDS: ASPIRIN EC 81 MG TAB PO SCH (21:49)
[2023-11-26] MEDS: FAMOTIDINE 20 MG TAB PO SCH (21:49)
[2023-11-26] MEDS: Magnesium Sulfate 2gm IVPB 2 G/50 ML BAG IV ONE (21:50)
[2023-11-26] MEDS: Oxycodone HCl/Acetaminophen 5/325 MG TAB PO PRN (21:53)
--- NOTE | 2023-11-26 22:59 | RAD REPORT ---
EXAM DESCRIPTION: US - CP - 11/26/2023 8:51 pm CLINICAL HISTORY: cva COMPARISON: No comparisons TECHNIQUE: Real-time sonographic grayscale, color duplex, and spectral wave Doppler evaluation of radha carotid systems was performed. FINDINGS: Normal high resistance waveforms are noted in both external carotid arteries. The common c arotid arteries and internal carotid arteries show normal low resistance waveforms. At least moderate mixed density and partially calcified plaque formation is seen at the carotid bulbs , with more irregular surface on the left. Subjective mild to moderate focal stenosis of the proximal left ICA in the left. Peak systolic velocity less than 125 cm/ sec bilaterally. ICA/CCA peak systol ic ratios less than 2.0 bilaterally. Antegrade flow seen in both vertebral arteries. IMPRESSION: Less than 50% stenosis of the proximal internal carotid arteries bilaterally, although v isually there is more apparent stenosis of the left proximal ICA. Evaluation of carotid artery stenosis, if any, is reported based on consensus recommendations of the Society of Radiologists in Ultrasound (Trung et al., Radiology, 2003)
[2023-11-27] MEDS: MORPHINE 2 MG/ML SYR IV PRN (00:48)
[2023-11-27 07:08] LABS: Absolute Basophils 0.1 K/uL (0-0.5); Absolute Eosinophils 0.3 K/uL (0-0.5); Absolute Lymphocytes (CBC) 1.7 K/uL (0.7-4.9); Absolute Neutrophil 7.5 K/uL (1.8-8.0); Basophils % 1.3 % (0-1.3); Eosinophils % 3.2 % (0-4.4); Hematocrit 42.4 % (39.6-49.0); Hemoglobin 14.4 g/dL (13.6-17.9); Lymphocytes % 15.6 % (15.3-44.8); MCH 29.1 pg (27.0-35.0); MCHC 34.1 g/dL (32.0-36.0); MCV 85.5 fL (80-100); MPV 7.5 fL (7.6-11.3); Monocytes % 9.7 % (3.3-12.3); Neutrophils % 70.2 % (41.7-73.7); Nucleated Red Blood Cells % 0.1 % (0-0); Platelets 255 thou/uL (152-406); RBC Red Blood Cell Count 4.95 M/uL (4.33-5.43); Red Cell Distribution Width 13.4 % (12.1-15.2)
[2023-11-27 07:24] LABS: Albumin 3.2 g/dL (3.4-5.0); Albumin/Globulin Ratio 0.7 (1.1-1.8); Anion Gap 6.6 mEq/L (5.0-15.0); Bilirubin Total 0.4 mg/dL (0.2-1.0); Globulin 4.9 g/dL (2.3-3.5); Potassium 3.6 mEq/L (3.5-5.1); Protein, Total 8.1 g/dL (6.4-8.2)
[2023-11-27] MEDS: INSULIN REGULAR (HUMAN) 100 UNIT/ML SQ SCH ×2 (09:31)
[2023-11-27] MEDS: ENOXAPARIN 40 MG/0.4 ML SQ SCH (09:31)
[2023-11-27] MEDS ORDERED: MORPHINE 4 MG/ML SYR IV PRN (10:17)
--- NOTE | 2023-11-27 11:40 | RAD REPORT ---
EXAM DESCRIPTION: MRI - Brain W/Wo Cont - 11/27/2023 9:27 am CLINICAL HISTORY: slurred speech COMPARISON: Head CT 11/26/2023 TECHNIQUE: Multiplanar multisequence MRI of the brain performed before and after intravenous adminis tration of 19 mL MultiHance. FINDINGS: No evidence of acute infarct or other diffusion signal abnormality. No evidence of acute intracranial hemorrhage or abnormal extra-axial fluid collections. Mild diffuse parenchymal volume loss. Ventricular caliber is stable compared to the prior CT. Midline structures are unremarkable. Region of encephalomalacia with adjacent gliosis centered on the right parietal and posterior tempora l lobes. Adjacent ex vacuo dilation of the right ventricle trigone. Gyriform T1 and T2 hyperintensity with corresponding susceptibility signal abnormality in that region suggestive of sequelae of cortic al mineralization. These findings are chronic in appearance. Other subtle subcortical and deep white matter T2/FLAIR hyperintensities, nonspecific, but suggestive of chronic small vessel ischemic change s. No mass effect or midline shift. No abnormal enhancement. Major vascular flow voids are preserved. Mastoid air cells and paranasal sinuses are clear. IMPRESSION: No acute intracranial process. No evidence of abnormal enhanced or mass effect. Sequelae of remote ischemia with a region of encephalomalacia and adjacent cortical mineralization in volving the right parietal and posterior temporal lobe.
--- NOTE | 2023-11-27 13:40 | P.PN ---
Date of Service: 11/27/23 Subjective: Reports issues with his speech No acute events overnight No further episodes of chest pain since admission ROS: 10 point ROS as noted above, otherwise negative Physical exam GEN: Alert, oriented, NAD HEENT: Normal conjunctiva, sclera anicteric CV: Regular rate and rhythm, no edema Pulm: Nonlabored respirations on room air ABD: Soft, nontender, nondistended MSK: No joint tenderness, left BKA Integumentary: No rashes Neuro: Abnormal speech, expressive aphasia, stuttering, normal affect Vitals reviewed Assessment Chest pain rule ACS Expressive aphasia/slurred speech Diabetes mellitus type 2insulin-dependent Chronic left BKA stump wound Chronic tobacco/vape use Plan Chest pain rule ACS Troponin negative x 2 thus far, repeat one more set Cardiology consulted-appreciate input Monitor on tele Expressive aphasia/slurred speech CT/MRI negative for acute findings Seem by neuro recommends starting Keppra 250 mg twice daily and obtaining EEG which has been ordered Reports symptoms started 11/25 around noon Denies any issues with his upper or lower extremities Diabetes mellitus type 2insulin-dependent ACHS Accu-Chek, sliding scale Chronic left BKA stump wound Prosthesis in place Chronic tobacco/vape use Counseled on need for cessation Time Spent Managing Pts Care (In Minutes): 35
[2023-11-27] MEDS ORDERED: MELOXICAM 7.5 MG TAB PO PRN (13:51)
[2023-11-27] MEDS ORDERED: HOME MED 1 EA UNK (Gabapentin [Gabapentin] 800 MG Tablet) PO SCH (14:00)
[2023-11-27] MEDS: GABAPENTIN 400 MG CAP PO SCH (14:25)
[2023-11-27] MEDS: HYDROCODONE/APAP 7.5/325 MG TAB PO PRN (15:13)
--- NOTE | 2023-11-27 16:17 | EKG ---
Test Date: 2023-11-26 Test Time: 16:42:48 Environmental Engineering Aide: ALP MEASUREMENT RESULTS: Intervals: Rate: 84 SC: 158 QRSD: 90 QT: 398 QTc: 470 [place]: P: 34 SC: 158 QRS: 28 T: 72 INTERPRETIVE STATEMENTS: Normal sinus rhythm Normal ECG No previous ECG available for comparison Electronically Signed On 11-27-23 16:16:21 CDT by Santosh Sarmiento
--- NOTE | 2023-11-27 19:17 | CON ---
Date of Consultation: 11/27/2023 Reason For Consultation: Chest pain. History Of Present Illness: 58-year-old male, history of diabetes, dyslipidemia, hypertension, smoke r, carotid stenosis, history of coronary artery disease, status post CABG 8 years ago, presented with chest pain. He claims that he was sitting on the couch. Chest pain is in the retrosternal area, pr essure-like, no radiation, and it keeps coming and going. He is not very active in movements to eval uate his exertional capacity. He does have some dyspnea on exertion as well. No orthopnea. No naus ea, vomiting, or diarrhea. Past Medical History: Diabetes, coronary artery disease, CVA, and left [id number]-[id number]-[id number] amputation. Past Surgical History: Coronary artery bypass surgery and left picki-cxh-smpi amputation, Cardiac stents, CABG, and cholecystectomy. Medications: Refer reconciliation sheet for detailed list. Medications were reviewed. Allergies: NO KNOWN DRUG ALLERGIES. Family History: No premature coronary artery disease or cancer. Social History: He is an active smoker. Does not drink or use any drugs. Review of Systems: All systems reviewed and they were negative except as mentioned in the HPI. Physical Examination: Vital Signs: Reviewed. Head and Neck: Pupils are equal, reactive to light. Intact eye movements. No JVD. No cervical lym phadenopathy. Neck is supple. Thyroid is not enlarged. Lungs: Clear to auscultation bilaterally. No rhonchi, wheezing, or crackles. No accessory muscle u se. Heart: Regular rate and rhythm. No extra sounds. Abdomen: Soft, nontender. Bowel sounds positive. No organomegaly. No masses or hernia. No rigidi ty or rebound. Extremities: No clubbing, cyanosis. Intact pulses. Skin: No rash. No nodule. Neurologic: Alert, awake, oriented x3. No acute focal deficits appreciated. Investigations: Cardiac enzymes x4 are negative. BUN 14, creatinine 0.89, and hemoglobin is 14.4. Assessment And Recommendations: 1.Chest pain. Concerning pain that could be suggestive of unstable angina, known history of coronar y artery disease. Obtain Lexiscan stress test and an echo to further evaluate. 2.Hypertension. Blood pressure seems to be well controlled. Continue home medications. 3.Dyslipidemia. Continue Crestor. 4.Diabetes. Check sugars 3 times a day. Cover with regular insulin by sliding scale as needed. SR/MODL Voice ID: [id number] Report ID: [id number]
[2023-11-27] MEDS ORDERED: HOME MED 1 EA UNK (Quetiapine Fumarate [Seroquel] 50 MG Tablet) PO SCH (21:00)
[2023-11-27] MEDS: TAMSULOSIN 0.4 MG SR CAP PO SCH (21:26)
[2023-11-27] MEDS: QUETIAPINE 25 MG TAB PO SCH (21:27)
[2023-11-27] MEDS: ROSUVASTATIN 10 MG TAB PO SCH (21:27)
[2023-11-27] MEDS: levETIRAcetam 500 MG TAB PO SCH (21:27)
[2023-11-28 06:20] LABS: Hematocrit 39.6 % (39.6-49.0); Hemoglobin 13.5 g/dL (13.6-17.9); MCH 28.9 pg (27.0-35.0); MCHC 34.1 g/dL (32.0-36.0); MCV 84.7 fL (80-100); MPV 8.1 fL (7.6-11.3); Platelets 221 thou/uL (152-406); RBC Red Blood Cell Count 4.67 M/uL (4.33-5.43); Red Cell Distribution Width 13.5 % (12.1-15.2)
[2023-11-28 06:39] LABS: Albumin 2.9 g/dL (3.4-5.0); Albumin/Globulin Ratio 0.6 (1.1-1.8); Anion Gap 7.6 mEq/L (5.0-15.0); Bilirubin Total 0.3 mg/dL (0.2-1.0); Globulin 4.8 g/dL (2.3-3.5); Phosphorus 3.1 mg/dL (2.5-4.9); Potassium 3.6 mEq/L (3.5-5.1); Protein, Total 7.7 g/dL (6.4-8.2)
[2023-11-28 06:40] VITALS: BMI 25.7
[2023-11-28] MEDS ORDERED: REGADENOSON 0.4 MG/5 ML SYR IV ONE (08:59)
[2023-11-28] MEDS: METOPROLOL XL 50 MG TAB PO SCH (09:00)
[2023-11-28] MEDS: CLOPIDOGREL 75 MG TABLET PO SCH (09:00)
[2023-11-28] MEDS: ASPIRIN 81 MG CHEWABLE TABLET PO SCH (09:00)
--- NOTE | 2023-11-28 10:12 | RAD REPORT ---
EXAM DESCRIPTION: NM - Rest Stress Cardiac Imaging - 11/28/2023 9:39 am CLINICAL HISTORY: CP Chest pain. COMPARISON: No comparisons TECHNIQUE: The patient was administered approximately 10.4 mCi of Tc 99m Sestamibi prior to resting SPECT imaging of the heart. The patient was then administered approximately 31.8 mCi of Tc 99m Sestam ibi following exercise or pharmacologic stress. Multiplanar SPECT images were reviewed. FINDINGS: Small reversible defect is seen at the anterior wall apical segment. No fixed defect is se en to suggest hibernating myocardium or scarred myocardium. The end diastolic volume is 95 ml, the end systolic volume is 45 ml, and the ejection fraction is 53 %. IMPRESSION: Small reversible defect along the apical segment of the anterior wall, suggesting the re gion of reversible ischemia. No fixed defect to suggest a myocardial infarct. Left ventricular ejection fraction is within normal limits, 53%.
[2023-11-28] MEDS: NA CHLORIDE 0.9% 500 ML ONE (13:08)
--- NOTE | 2023-11-28 13:12 | EEG ---
CHART: [id number] TEST ID#: [id number] DATE OF STUDY: 11/27/2023 THE EEG WAS RECORDED PORTABLE IN THE PATIENT'S ROOM ON A 17 CHANNEL MACHINE. ELECTRODES WERE APPLIED IN THE USUAL MANNER USING THE INTERNATIONAL 10-20 SYSTEM. THE WAKING BACKGROUND RHYTHM IN THIS RECORD CONSISTS OF FAIRLY WELL DEVELOPED AND FAIRLY WELL ORGANIZED WAVES OF 7 HZ., MAXIMAL IN THE POSTERIOR HEAD REGIONS WHICH ATTENUATE NORMALLY WITH EYE OPENING. MODERATE VOLTAGE 1.5-3 HZ ACTIVITY IS OCCASIONALLY EXPRESSED IN THE FRONTAL REGIONS. LOW-VOLTAGE 16-18 HZ ACTIVITY IS DIFFUSELY EXPRESSED. THERE ARE NO FOCAL OR LATERALIZING FEATURES. NO EPILEPTIFORM ACTIVITY APPEARS. SLEEP DID NOT OCCUR. HYPERVENTILATION WAS NOT PERFORMED. PHOTIC STIMULATION PRODUCED NO DRIVING BILATERALLY. IMPRESSION: THIS IS A MODERATELY ABNORMAL EEG DUE TO A MODERATELY SLOW BACKGROUND AND POSTERIOR DOMINATE RHYTHM. THIS IS A NON SPECIFIC FINDING INDICATING THE PRESENCE OF A MODERATE DIFFUSE DISTURBANDE IN CEREBRAL ACTIVITY.
[2023-11-28] MEDS ORDERED: HEPA 1000U/500MLS 2,000 UNIT/1,000 ML BAG IV ONE (13:49)
[2023-11-28] MEDS ORDERED: LIDOCAINE 1% 20 ML MDV ONE (13:49)
[2023-11-28] MEDS ORDERED: MIDAZOLAM HCL 2 MG/2 ML INJ ONE (13:49)
[2023-11-28] MEDS ORDERED: FENTANYL CITR 100 MCG/2 ML ONE ×2 (13:49→14:34)
[2023-11-28] MEDS ORDERED: ATROPINE SULF 1 MG/10 ML SYR IV ONE (13:50)
[2023-11-28] MEDS ORDERED: FLUMAZENIL 0.1 MG/ML (5 mL VIAL) IV ONE (13:50)
[2023-11-28] MEDS ORDERED: NALOXONE 0.4 MG/ML VIAL ONE (13:50)
[2023-11-28] MEDS ORDERED: HEPARIN 10,000 UNIT/10 ML VIAL IV ONE (13:50)
[2023-11-28] MEDS ORDERED: CLOPIDOGREL 75 MG TABLET ONE (13:50)
[2023-11-28] MEDS ORDERED: ASPIRIN 325 MG TAB ONE (13:50)
[2023-11-28] MEDS ORDERED: HEPARIN 5000 UNIT/ML 1 ML VIAL ONE (13:50)
[2023-11-28] MEDS ORDERED: TICAGRELOR 90 MG TABLET PO ONE (13:51)
--- NOTE | 2023-11-28 13:52 | ECHO ---
HEIGHT: 6 ft 0 in WEIGHT: 189 lb 12.8 oz DATE OF STUDY: 11/28/[address]: Santosh Sarmiento 2-DIMENSIONAL: YES M.MODE: YES DOPPLER: YES COLOR FLOW: YES TDS: YES PORTABLE: YES DEFINITY: BUBBLE STUDY: DIAGNOSIS: CHEST PAIN CARDIAC HISTORY: CATHERIZATION: YES SURGERY: YES PROSTHETIC VALVE: NO PACEMAKER: NO MEASUREMENTS (cm) DIASTOLIC (NORMALS) SYSTOLIC (NORMALS) IVSd 0.9 (0.6-1.2) LA Diam 2.8 (1.9-4.0) LVEF 55-60% LVIDd 5.2 (3.5-5.7) LVIDs 3.7 (2.0-3.5) %FS 30% LVPWd 1.0 (0.6-1.2) Ao Diam 2.8 (2.0-3.7) 2 DIMENSIONAL ASSESSMENT: RIGHT ATRIUM: NORMAL LEFT ATRIUM: NORMAL RIGHT VENTRICLE: NORMAL LEFT VENTRICLE: NORMAL TRICUSPID VALVE: NORMAL MITRAL VALVE: NORMAL PULMONIC VALVE: NORMAL AORTIC VALVE: NORMAL PERICARDIAL EFFUSION: NONE AORTIC ROOT: NORMAL LEFT VENTRICULAR WALL MOTION: NORMAL DOPPLER/COLOR FLOW: NORMAL COMMENTS: 1. POOR WINDOWS 2. OVERALL LEFT VENTRICULAR EJECTION FRACTION IS NORMAL 55-60% TECHNOLOGIST: VITA CORONA
--- NOTE | 2023-11-28 13:59 | TREADPHA ---
DX: CHEST PAIN Date of Study: 11/27/2023 Ht: 6' 0 " Wt: 189 lb 12.8 oz Consulting Physician: ERNIE MEDICATIONS: TYLENOL, NORCO, PROVENTIL, ASPIRIN, PLAVIX, LOVENOX, PEPCID, NEURONTIN, APRESOLINE, SEMGLEE, NOVOLIN R, KEPPRA, ATIVAN, MOBIC, TOPROL XL, ZOFRAN, SEROQUEL, CRESTOR, FLOWMAS HISTORY: 58 YEAR OLD MALE WITH COMPLAINTS OF CHEST PAIN AND STROKE LIKE SYMPTOMS. NO KNOWN DRUG ALLERGY. HISTORY OF HYPERTENSION, CORONARY ARTERY BYPASS GRAFT, HEART STENSTS, CORONARY ARTERY DISEASE, HYPERLIPIDEMIA, CEREBRAL VASCULAR ACCIDENT, DIABETES MELLITUS, LEFT BELOW THE KNEE AMPUTATION, PHYSICIAL EXAMINATION: RESTING B.P.: 151/78 RESTING H.R.: 86 RESTING EKG: SINUS RHYTHM WITH OCCASIONAL PREMATURE VENTRICULAR COMPLEXES. PROTOCOL: PHARMACOLOGIC EXERCISE TIME: 3:30 B.P. AT PEAK STRESS: 113/63 IMPRESSION: LEXISCAN INJECTED. CARDIOLITE INJECTED - SEE NUCLEAR MEDICINE REPORT. NO SUPRAVENTRICULAR TAHYCARDIA, VENTRICULAR TAHYCARDIA, PREMATURE ATRIAL COMPLEXES. SINUS RHYTHM WITH OCCASIONAL PREMATURE VENTRICULAR COMPLEXES THORUGHOUT PROCEDURE. PATIENT STATS CHEST PAIN WHEN LEXISCAN WAS INJECTED. PATIENT ANXIOUS THROUGHOUT PEROCEDURE. NO ELECTOCARDIOGRAM CHANGES OF ISCHEMIA.
--- NOTE | 2023-11-28 13:59 | PN ---
Date of Progress Note: 11/28/2023 Subjective: Seen by bedside. Continues to have chest pain on and off at rest. He does not move muc h due to history of CVA and mild shortness of breath on exertion. No nausea, vomiting, or diarrhea. No abdominal pain. All other systems were reviewed, they were negative. Objective: Vital Signs: Reviewed. Head and Neck: Pupils are equal, reactive to light. Intact eye movements. No JVD. No cervical lym phadenopathy. Neck is supple. Thyroid is not enlarged. Lungs: Clear to auscultation bilaterally. No rhonchi, wheezing, or crackles. No accessory muscle u se. Heart: Regular rate and rhythm. No extra sounds. Abdomen: Soft, nontender. Bowel sounds positive. No organomegaly. No masses or hernia. No rigidi ty or rebound. Extremities: No edema, clubbing, or cyanosis. Intact pulses. Skin: No rash. No nodule. Neurologic: Alert, awake, oriented x3. No acute focal deficits appreciated. Investigations: BUN 12, creatinine 0.76. Troponins x3 are negative. Hemoglobin 15.5. Assessment And Recommendations: 1.Unstable angina. Positive stress test. The patient is NPO. Plan for coronary angiogram with bypa ss graft study today. 2.Hypertension. Blood pressure is controlled. Continue current home medications. 3.Dyslipidemia. Continue Crestor. 4.Diabetes, and sugars are acceptable. Continue current management. SR/MODL Voice ID: [id number] Report ID: [id number]
--- NOTE | 2023-11-28 14:43 | P.PN ---
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 Chronic tobacco/vape use Plan Chest pain rule ACS Stress test abnormal Plan for cardiac cath 11/27 Wait for the results Expressive aphasia/slurred speech CT/MRI negative for acute findings Seem by neuro recommends starting Keppra 250 mg twice daily and obtaining EEG which has been ordered Reports symptoms started 11/25 around noon Denies any issues with his upper or lower extremities Continue Keppra, neurology input appreciated Diabetes mellitus type 2insulin-dependent ACHS Accu-Chek, sliding scale Chronic left BKA stump wound Prosthesis in place Chronic tobacco/vape use Counseled on need for cessation Time Spent Managing Pts Care (In Minutes): 35
--- NOTE | 2023-11-28 15:29 | OP ---
Date of Procedure: 11/28/2023 Surgeon: MIKE KLEIN Procedure Performed: Selective coronary angiogram with bypass graft study. Indication: Chest pain with normal stress test. Access: Right common femoral artery 6-Macedonian closed with 6-Macedonian Angio-Seal. Complications: None. Bleeding: Less than 50 mL. Anesthesia: Total sedation time was 45 minutes. I used fentanyl and Versed. Description Of Procedure: After risks and benefits and alternatives were explained, patient agreed t o proceed and signed informed consent. Patient was brought into cardiac catheterization laboratory, prepped and draped in the usual sterile fashion. Then, I accessed right common femoral artery using micropuncture kit, ultrasound guidance, and fluoroscopy, placed 6-Macedonian [place] sheath and took a 6 -Macedonian JL4 catheter into the aortic root over a J-wire, engaged left main, took standard views and e xchanged for a 6-Macedonian JR4 catheter, engaged the RCA, SVG graft to RCA, SVG graft to OM, and the RODRIGUEZ A to LAD, took standard views and then I removed the catheter and the sheath and 6-Macedonian Angio-Seal was used for closure with good hemostasis. Findings: 1.Left main; patent with ostial disease that is probably significant about 60% to 70%. 2.LAD; proximal 80% and then become [employer]. 3.Left circumflex; ostially occluded. 4.RCA; proximally occluded 100%. Bypass Graft Study: 1.Patent CANALES to LAD. 2.Patent SVG to OM. 3.Patent SVG to RCA. 4.The PDA is diffusely diseased, but small vessel. Conclusion: Severe [place] coronary artery disease, multivessel, with widely patent CANALES to LAD, SVG graft to OM, and SVG graft to RCA. Plan: Medical management. SR/MODL Voice ID: [id number] Report ID: [id number]
[2023-11-29 04:56] VITALS: O2SAT 99
[2023-11-29 06:39] LABS: Hematocrit 38.5 % (39.6-49.0); Hemoglobin 13.5 g/dL (13.6-17.9); MCH 29.5 pg (27.0-35.0); MCHC 35.1 g/dL (32.0-36.0); MCV 84.1 fL (80-100); Platelets 219 thou/uL (152-406); RBC Red Blood Cell Count 4.57 M/uL (4.33-5.43); Red Cell Distribution Width 13.4 % (12.1-15.2)
[2023-11-29 06:56] LABS: Albumin/Globulin Ratio 0.7 (1.1-1.8); Anion Gap 4.6 mEq/L (5.0-15.0); Bilirubin Total 0.3 mg/dL (0.2-1.0); Globulin 4.4 g/dL (2.3-3.5); Phosphorus 3.3 mg/dL (2.5-4.9); Potassium 3.6 mEq/L (3.5-5.1); Protein, Total 7.4 g/dL (6.4-8.2)
[2023-11-29 08:09] VITALS: BP 138/79
[2023-11-29 09:39] VITALS: TEMP 97
--- NOTE | 2023-11-29 14:55 | P.DS ---
Admission Date: 11/28/23 Discharge Date: 11/29/23 Disposition: ROUTINE DISCHARGE Discharge Condition: GOOD Reason for Admission: chest pain Consultations: Cardiology-Dr. Sarmiento Neurology- Dr. Chavarria Brief History of Present Illness: 58-year-old male with past medical history of HTN/HLD/DM/chronic tobacco use currently vapes/carotid artery stenosis status post left carotid and arterectomy 1 year ago at [facility], history of CAD status post PCI with subsequent CABGunknown vessel 8 years ago with no subsequent PCI since then, PVD status post left BKA 4 years ago with chronic draining left stump wound, currently moved to this area and has established care with Dr. Domingo, Presented today because of substernal chest pain. Described the pain as chest pressure, nonradiating. At its worst at about 8-10 out of 10. States pain is subsided on arrival in the ED but stable 4 out of 10. Denies any palpitation cough shortness of breath or fever. Patient also states that she has new difficulty with speech since the last 2 days. Says symptoms started when he was drinking soup given to him by his mother. He is denies any weakness of any of the extremities. He states he has had 2 CVAs in the past with no residual weakness. His last CVA prompted his carotid endarterectomy. On arrival in the ED he was noted with normal sinus rhythm with no ST segment changes, vital signs were stable mildly elevated in the 170s to 180s systolic, WBC was mildly elevated at 1100. No change in differentials, BMP was unremarkable. proBNP elevated at 302. Troponin negative, magnesium low at 1.5 Patient has been admitted for chest pain as well as rule out possible CVA Hospital Course: Patient was admitted to the hospital for difficulties with speech, chest pain. CT head without contrast was negative for acute findings, carotid Doppler was performed which showed less than 50% stenosis of the proximal internal carotid arteries bilaterally. MRI of the brain was performed given his ongoing difficulties with his speech which showed sequela of remote ischemia with a region of encephalomalacia and adjacent cortical mineralization involving the right parietal and posterior temporal lobe. No acute CVA/intracranial processes present. Neurology was consulted and EEG was also obtained, EEG showed moderately abnormal EEG due to a moderately slow background and posterior dominant rhythm. This is a nonspecific finding indicating the presence of a moderate diffuse disturbance in cerebral activity. No epileptiform activities appeared no focal or lateralizing features present. To evaluate his chest pain and echocardiogram and stress test were performed, echocardiogram showed normal left ventricular ejection fraction, stress test showed small reversible defect along the apical segment of the anterior wall suggesting there region of reversible ischemia. Cardiology took patient for heart catheterization on 11/27 which showed severe [place] coronary artery disease multivessel with widely patent CANALES to LAD, SVG graft to OM and SVG graft to RCA recommendation for medical management. Patient still with some mild difficulty with his speech although it seems to hav e significantly improved, no signs of acute CVA will recommend further evaluation as an outpatient. He has been tolerating his diet without difficulties, also did well with physical therapy and transfers given his BKA. Please continue home medications as previously prescribed Please follow-up with your primary care doctor 1 to 2 weeks Please also follow-up with Dr. Chavarria-neurology and Dr. 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 Chronic tobacco/vape use Vital Signs/Physical Exam: Temp Pulse Resp BP Pulse Ox 97.0 F 88 20 138/79 98 11/29/23 08:00 11/29/23 08:00 11/29/23 08:00 11/29/23 08:07 11/29/23 08:00 General: Alert, In no apparent distress, Oriented x3 HEENT: Atraumatic, PERRLA Neck: Supple, JVD not distended Respiratory: Clear to auscultation bilaterally, Normal air movement Cardiovascular: Regular rate/rhythm, Normal S1 S2 Gastrointestinal: Normal bowel sounds Musculoskeletal: No tenderness Integumentary: No rashes Neurological: Normal speech, Normal tone Laboratory Data at Discharge: WBC 8.50 thou/uL (4.3-10.9) 11/29/23 06:06 Hgb 13.5 g/dL (13.6-17.9) L 11/29/23 06:06 Hct 38.5 % (39.6-49.0) L 11/29/23 06:06 Plt Count 219 thou/uL (152-406) 11/29/23 06:06 PT 12.6 SECONDS (9.5-12.5) H 11/26/23 16:55 INR 1.15 11/26/23 16:55 Sodium 137 mEq/L (136-145) 11/29/23 06:06 Potassium 3.6 mEq/L (3.5-5.1) 11/29/23 06:06 BUN 12 mg/dL (7-18) 11/29/23 06:06 Creatinine 0.78 mg/dL (0.70-1.30) 11/29/23 06:06 Glucose 178 mg/dL (74-106) H 11/29/23 06:06 Phosphorus 3.3 mg/dL (2.5-4.9) 11/29/23 06:06 Magnesium 1.8 mg/dL (1.6-2.4) 11/28/23 20:19 Total Bilirubin 0.3 mg/dL (0.2-1.0) 11/29/23 06:06 AST 13 U/L (15-37) L 11/29/23 06:06 ALT 34 U/L (16-61) 11/29/23 06:06 Alkaline Phosphatase 104 U/L (45-117) 11/29/23 06:06 LDL Cholesterol Direct 93 mg/dL (100-129) L 11/27/23 06:48 Home Medications: Aspirin 81 mg PO DAILY 11/27/23 Clopidogrel Bisulfate [Plavix*] 75 mg PO DAILY 11/27/23 Gabapentin 800 mg PO TID 11/27/23 Glimepiride 2 mg PO DAILY 11/27/23 Meloxicam [Mobic*] 7.5 mg PO DAILYPRN PRN 11/27/23 Metoprolol Succinate [Toprol Xl*] 50 mg PO DAILY 11/27/23 Pen Needle, Diabetic [Sonia 2Nd Gen Pen Needle] 25 unit SQ BID 11/27/23 Quetiapine Fumarate [Seroquel] 50 mg PO BEDTIME 11/27/23 Rosuvastatin [Crestor*] 10 mg PO BEDTIME 11/27/23 Tamsulosin [Flomax*] 0.4 mg PO BEDTIME 11/27/23 Codeine/APAP [Tylenol W/Codeine #3 tab] 1 tab PO Q6HP PRN #10 tab 11/29/23 New Medications: Codeine/APAP [Tylenol W/Codeine #3 tab] 1 tab PO Q6HP PRN #10 tab PRN Reason: Pain Physician Discharge Instructions: Patient was admitted to the hospital for difficulties with speech, chest pain. CT head without contrast was negative for acute findings, carotid Doppler was performed which showed less than 50% stenosis of the proximal internal carotid arteries bilaterally. MRI of the brain was performed given his ongoing difficulties with his speech which showed sequela of remote ischemia with a region of encephalomalacia and adjacent cortical mineralization involving the right parietal and posterior temporal lobe. No acute CVA/intracranial processes present. Neurology was consulted and EEG was also obtained, EEG showed moderately abnormal EEG due to a moderately slow background and posterior dominant rhythm. This is a nonspecific finding indicating the presence of a moderate diffuse disturbance in cerebral activity. No epileptiform activities appeared no focal or lateralizing features present. To evaluate his chest pain and echocardiogram and stress test were performed, echocardiogram showed normal left ventricular ejection fraction, stress test showed small reversible defect along the apical segment of the anterior wall suggesting there region of reversible ischemia. Cardiology took patient for heart catheterization on 11/27 which showed severe [place] coronary artery disease multivessel with widely patent CANALES to LAD, SVG graft to OM and SVG graft to RCA recommendation for medical management. Patient still with some mild difficulty with his speech although it seems to have significantly improved, no signs of acute CVA will recommend further evaluation as an outpatient. He has been tolerating his diet without difficulties, also did well with physical therapy and transfers given his BKA. Please continue home medications as previously prescribed Please follow-up with your primary care doctor 1 to 2 weeks Please also follow-up with Dr. Chavarria-neurology and Dr. Sarmiento-cardiology Diet: AHA Activity: Fall precautions Followup: Adalberto Chavarria MD [ASSOCIATE-ACTIVE - CAN ADMIT] - 1-2 Weeks NONE,NONE [UNKNOWN] - 1-2 Weeks Santosh Sarmiento MD [ACTIVE - CAN ADMIT] - 1-2 Weeks Time spent managing pt's care (in minutes): 35
== END 2023-11-29 13:56 | disposition home health service (06) | DRG 287 ==
LOC: ER 16:28 → ERHOLD 19:40 → 4TH 20:16 → OBSVTOIN 11-28 14:02
PROVIDERS: ADMIT Internal Medicine; ATTEND Hospitalist
PROC: B2111ZZ Fluoroscopy of Multiple Coronary Arteries using Low Osmolar Contrast (ICD-10-PCS; principal; 2023-11-28)
PROC: 4A023N7 Measurement of Cardiac Sampling and Pressure, Left Heart, Percutaneous Approach (ICD-10-PCS; 2023-11-28)
PROC: B2131ZZ Fluoroscopy of Multiple Coronary Artery Bypass Grafts using Low Osmolar Contrast (ICD-10-PCS; 2023-11-28)
DX: I25.110 Atherosclerotic heart disease of native coronary artery with unstable angina pectoris (principal); I10 Essential (primary) hypertension; E11.9 Type 2 diabetes mellitus without complications; E78.00 Pure hypercholesterolemia, unspecified; I69.320 Aphasia following cerebral infarction; I69.398 Other sequelae of cerebral infarction; G93.89 Other specified disorders of brain; F17.290 Nicotine dependence, other tobacco product, uncomplicated; I25.2 Old myocardial infarction; Z95.1 Presence of aortocoronary bypass graft; Z95.5 Presence of coronary angioplasty implant and graft; Z79.82 Long term (current) use of aspirin; Z79.84 Long term (current) use of oral hypoglycemic drugs; Z90.49 Acquired absence of other specified parts of digestive tract; Z89.512 Acquired absence of left leg below knee; Z79.899 Other long term (current) drug therapy
CPT/HCPCS: 36415; 70450; 70553; 71045; 76937; 78452; 80048; 80053; 80076; 82947; 83735; 83880; 84100; 84443; 84484; 85025; 85027; 85610; 87070; 87205; 93005; 93017; 93306; 93455; 93880; 95816; 97161; 97530; 99152; 99153; 99285; A9500; A9577; C1760; C1893; G0269; G0378; J0461; J1644; J1650; J2001; J2250; J2270; J2310; J2785; J3010; J3475; J7040; Q9966